=== PATIENT | male | born 1935 | race Caucasian/White ===

== ENCOUNTER → 2018-02-10 06:31 | Outpatient (CLI) | payer MEDICARE, SELFPAY ==
--- NOTE | 2018-02-10 16:31 | STRESSREP ---
Stress Test Report Pharmacologic myocardial perfusion stress test. 82-year-old man with a history of coronary artery disease status post carotid bypass surgery for preoperative cardiac evaluation. Medications Zestril Betapace Coumadin metformin Aldactone. Stress protocol: Resting EKG demonstrates normal sinus rhythm with a rate of 68 bpm right bundle branch block is noted. 0.4 mg regadenoson was infused per usual protocol followed by rapid intravenous saline flush injection. Continuous EKG monitoring was performed. At rest there were no ST or T-wave changes noted suggest abnormal flow reserve at peak infusion no ST or T-wave changes were noted suggest abnormal flow reserve. The patient maintained a right bundle branch block throughout the recording. The resting blood pressure is 138/60 with a final blood pressure 128/60. Myocardial perfusion protocol. 14.9 mCi of technetium 99m sestamibi was injected at rest. 0.4 mg regadenoson was infused per usual protocol. Peak infusion 44.8 mCi of technetium 99m sestamibi was injected. Stress images were obtained stress and rest images were reconstructed and compared in the short axis vertical long horizontal long axis. Gated images were also obtained. Perfusion SPECT analysis: Review of the stress images demonstrate normal normal cardiac silhouette size. The septum anterior wall and lateral wall appear to be well perfused. There is a medium-sized defect noted in the base to mid inferior wall. This is present on the stress images. The resting images demonstrate improvement with partial reversibility involving the base to mid inferior wall. The above is suggestive of a moderate amount of mid inferior ischemia. Gated SPECT analysis The gated ejection fraction is 63%. Conclusion: Abnormal pharmacologic myocardial perfusion stress test with evidence of moderate mid inferior ischemia present. Preserved ejection fraction.
== END ==
PROVIDERS: Family Provider Internal Medicine; PCP Internal Medicine; Visit Provider Internal Medicine Cardiovascular Disease
DX: Z01.810 Encounter for preprocedural cardiovascular examination (principal); I25.10 Atherosclerotic heart disease of native coronary artery without angina pectoris
CPT/HCPCS: 78452; 93017; A9500; A4216; J2785

== ENCOUNTER 2018-04-14 05:35 | Inpatient (IN) | payer MEDICARE, SELFPAY ==
[2018-04-01 09:29] VITALS: BP 121/52; PULSE 63; RESP 17; TEMP 36.4; BMI 44.1
--- NOTE | 2018-04-01 09:55 | SDCEKG_ITS ---
Test Reason : Blood Pressure : / mmHG Vent. Rate : 062 BPM Atrial Rate : 062 BPM P-R Int : 268 ms QRS Dur : 152 ms QT Int : 486 ms P-R-T Axes : 063 087 043 degrees QTc Int : 493 ms Sinus rhythm with 1st degree A-V block Right bundle branch block Abnormal ECG Confirmed by DIONNE ESCOBEDO, TRACI ([id number]), news assignment editor ELENA ZHANG ([id number]) on 04/03/2018 1:48:25 PM Referred By: Kel Contreras Confirmed By:TRACI TRUONG MD
--- NOTE | 2018-04-01 11:05 | RAD_ITS ---
STUDY: X-RAY CHEST REASON FOR EXAM: Male, 82 years old. Preoperative evaluation. TECHNIQUE: PA and lateral views of the chest. COMPARISON: Comparison is made with prior study dated August 20, 2016. FINDINGS: Elevation of the right hemidiaphragm. Stable mild increased markings at the lung bases suggestive of scarring. This is unchanged. There is no demonstrated pleural abnormality. Sternal cerclage wires and vascular clips are present from a prior sternotomy and coronary artery bypass graft procedure (CABG). Normal mediastinum and tapan. Normal visualized pulmonary arteries. There is atherosclerotic tortuosity of the aortic arch and descending thoracic aorta. There are diffuse degenerative changes of the visualized thoracic spine. Normal visualized ribs, clavicles, and shoulders. There is no demonstrated abnormality of the visualized soft tissue structures of the upper abdomen. RAD/Chest PA and Lateral IMPRESSION: Stable mild increased markings at the lung bases suggestive of scarring. Electronically Signed: John Sanchez MD at 11:30 EDT Tel [phone], Service support ,
[2018-04-01 11:07] LABS: Hematocrit 38.5 % (40-54); Hemoglobin 11.9 g/dl (13.0-16.5); Mean Corp Hgb Conc 30.9 g/gl (32-36); Mean Corpuscular Hgb 27.8 pg (27.0-32.0); Mean Platelet Vol. 11.4 fl (6.2-12.0); Platelet Count 145 K/mm3 (150-450); RBC Distribution Width CV 12.7 % (11.6-14.6); RBC Distribution Width SD 41.2 fl (35.1-43.9); Red Blood Count 4.28 M/mm3 (4.6-6.2); Scan Indicated on CBC? Y/N NO; White Blood Count 6.2 K/mm3 (4.4-11.0)
[2018-04-01 11:23] LABS: Anion Gap 5 (5-15); BUN 33 mg/dL (7-18); BUN/Creat Ratio 16.8 RATIO (10-20); Calcium,Total 9.9 mg/dL (8.5-10.1); Chloride 107 mmol/L (98-107); Creatinine, Serum 1.97 mg/dL (0.70-1.30); EST Glomerular Filtration Rate 35 mL/min (>60); Est Glom Filt Rate - Afr Amer 42 mL/min (>60); Estimated Creatinine Clearance 33.24 ml/min; Glucose 179 mg/dL (74-106); Potassium 4.1 mmol/L (3.5-5.1); Sodium Level 143 mmol/L (136-145)
[2018-04-01 11:30] LABS: Hemoglobin A1c 7.3 % (4.2-6.3)
--- NOTE | 2018-04-08 12:34 | CASEMGMT ---
SW called pt on phone as pt is scheduled for right knee replacement surgery w/Dr. Contreras on 04/14/18. Pt lives home w/ in a one story home, 3-4 steps to get in. Pt is independent w/ADL's now, does use a tub chair and has a walker, though is not currently using the walker. Pt has a C-Pap at home also. Pt plans to go to [facility] discharge, pt states he went there after his last knee surgery. SW checked on [facility]'s website, and [facility] is in network w/[facility]. Pt is okay w/SW calling [facility] today to let them know that pt will want to come next week after his knee surgery. SW called [facility], spoke w/[place], let her know pt would like to come there next week after his knee replacement, which is scheduled for 04/14. Pt will need a precert from [facility] in order to be admitted. DWIGHT will follow up w/pt once here, postop, to confirm plan, make referral to [facility], and attain precert from [facility]. RUBÉN Kwon, STEAM CLEANER
[2018-04-14] VITALS (12 sets, daily range): BP systolic 104–160; BP diastolic 44–77; PULSE 53–65; RESP 12–18; TEMP 36.4–36.8; O2SAT 95–100; BMI 44.1
[2018-04-14] MEDS: oxyCODONE HCl Cr 10 MG Tablet PO (06:38)
[2018-04-14] MEDS: Acetaminophen 500 MG Tablet 1000 MG PO ×3 (06:38→22:26)
[2018-04-14] MEDS: Celecoxib 200 MG Capsule 400 MG PO (06:39)
[2018-04-14 06:56] LABS: Bedside Glucose 185 mg/dL (70-110)
[2018-04-14 10:21] LABS: Bedside Glucose 281 mg/dL (70-110)
[2018-04-14] MEDS: Insulin Lispro 100 UNIT/ML INSULN.PEN SC ×2 (10:57→22:28)
--- NOTE | 2018-04-14 11:00 | RAD_ITS ---
STUDY: X-RAY - RIGHT KNEE REASON FOR EXAM: Male, 82 years old. Total knee replacement. TECHNIQUE: AP and lateral view(s) of the knee. COMPARISON: None. FINDINGS: Normal visualized distal femur. Normal visualized proximal tibia and fibula. Normal proximal tibiofibular articulation. Status post total knee replacement. There is good alignment. Postoperative soft tissue changes. RAD/Knee 1 or 2 Views IMPRESSION: Total knee replacement. There is good alignment. Postoperative soft tissue changes. Electronically Signed: John Sanchez MD at 11:24 EDT Tel [phone], Service support ,
[2018-04-14] MEDS: Lactated Ringers 1,000 ML 125 ML IV ×2 (11:15→19:58)
[2018-04-14] MEDS: Lisinopril 10 MG Tablet PO (14:18)
[2018-04-14] MEDS: Famotidine 20 MG Tablet PO (14:19)
[2018-04-14] MEDS: Cefazolin 1 GM/50 ML BAG IV ×2 (16:11→22:35)
[2018-04-14] MEDS: Furosemide 20 MG Tablet PO (18:00)
--- NOTE | 2018-04-14 22:24 | NUR.TO.PHY ---
Unable to void. Bladder scan for 333. Straight cath for 600 @ this time. Pt tolerated well.
[2018-04-14] MEDS: Doxazosin 1 MG Tablet 2 MG PO (22:25)
[2018-04-14] MEDS: Celecoxib 200 MG Capsule PO (22:25)
[2018-04-14] MEDS: Atorvastatin Calcium 10 MG Tablet PO (22:25)
[2018-04-14] MEDS: Spironolactone 25 MG Tablet PO (22:25)
[2018-04-14] MEDS: Senna/Docusate Sodium 1 Tablet 2 TABLET PO (22:25)
[2018-04-14] MEDS: Sotalol Hydrochloride 80 MG Tablet PO (22:25)
[2018-04-14 23:30] LABS: Bedside Glucose 257 mg/dL (70-110)
[2018-04-15] VITALS (7 sets, daily range): BP systolic 85–116; BP diastolic 31–50; PULSE 58–70; RESP 16–18; TEMP 36.4–37; O2SAT 90–95
[2018-04-15] MEDS: oxyCODONE 5 MG Tablet PO ×2 (02:39→08:51)
[2018-04-15] MEDS: Acetaminophen 500 MG Tablet 1000 MG PO ×3 (06:02→21:40)
[2018-04-15 06:03] LABS: Hematocrit 31.6 % (40-54); Hemoglobin 9.7 g/dl (13.0-16.5); Mean Corp Hgb Conc 30.7 g/gl (32-36); Mean Corpuscular Hgb 28.4 pg (27.0-32.0); Mean Corpuscular Volume 92.4 fL (80-94); Mean Platelet Vol. 11.5 fl (6.2-12.0); Platelet Count 121 K/mm3 (150-450); RBC Distribution Width CV 12.6 % (11.6-14.6); Red Blood Count 3.42 M/mm3 (4.6-6.2); White Blood Count 8.6 K/mm3 (4.4-11.0)
[2018-04-15 06:11] LABS: Scan Indicated on CBC? Y/N NO
[2018-04-15 06:27] LABS: Anion Gap 10 (5-15); BUN 44 mg/dL (7-18); BUN/Creat Ratio 16.4 RATIO (10-20); Calcium,Total 8.5 mg/dL (8.5-10.1); Chloride 105 mmol/L (98-107); Creatinine, Serum 2.69 mg/dL (0.70-1.30); EST Glomerular Filtration Rate 24 mL/min (>60); Est Glom Filt Rate - Afr Amer 29 mL/min (>60); Estimated Creatinine Clearance 24.34 ml/min; Glucose 209 mg/dL (74-106); Potassium 5.4 mmol/L (3.5-5.1); Sodium Level 138 mmol/L (136-145)
--- NOTE | 2018-04-15 06:27 | NURSING ---
Straight cath @ this time for 100ml. Has been appx 8hrs since previous void. Pt has attempted to void x2 without success since previous straight cath.
--- NOTE | 2018-04-15 06:28 | NURSING ---
BRIAN wrap removed and ABDs. Mepilex applied with BRITTNEY. While in BR began bleeding from distal end of wound. BRIAN wrap replaced over mepilex. Elevated. Will monitor.
[2018-04-15] MEDS: Insulin Lispro 100 UNIT/ML INSULN.PEN SC ×4 (06:51→21:40)
[2018-04-15 07:00] LABS: Bedside Glucose 205 mg/dL (70-110)
[2018-04-15] MEDS: Lactated Ringers 1,000 ML 125 ML IV ×3 (07:00→21:41)
[2018-04-15] MEDS: Senna/Docusate Sodium 1 Tablet 2 TABLET PO ×2 (07:52→21:41)
[2018-04-15] MEDS: Celecoxib 200 MG Capsule PO ×2 (07:52→21:40)
[2018-04-15] MEDS: glipiZIDE 10 MG Tablet PO (07:52)
[2018-04-15] MEDS: Famotidine 20 MG Tablet PO (07:52)
[2018-04-15] MEDS: Multivitamins,Therapeutic Tablet 1 TABLET PO (07:52)
[2018-04-15] MEDS: DiphenhydrAMINE 25 MG Capsule PO (07:58)
--- NOTE | 2018-04-15 08:00 | PN.ORTHO_ITS ---
Subjective: Patient is resting comfortably in chair at bedside during exam. He complains of some pain in the right knee. He has had to have his dressing changed several times. They have been using sandbags for compression. He does not seem to be actively bleeding from the surgical site at this time. He has not been able to void on his own. He has had to be straight cath 2 times. He admits that he has had issues with his prostate in the past. He additionally complains of some abdominal itching. Currently denies chest pain, shortness of breath, dizziness, calf pain. His plan is for discharge to [facility] after leaving the hospital. Objective: Patient is alert and oriented ?3. No acute distress at rest. Breathing easily without respiratory distress. Inspection of dressing with clean dry Jose Angel wraps. Negative Nara bilaterally. Without signs of DVT. Patient able to actively plantar and dorsiflex bilateral feet against resistance. Pedal pulses present and equal bilaterally. Patient is neurovascularly intact. - Physical Exam Vital Signs Temp Pulse Resp BP Pulse Ox 97.8 F 58 L 18 116/45 L 95 04/15/18 02:48 04/15/18 02:48 04/15/18 02:48 04/15/18 02:48 04/15/18 02:48 Oxygen Flow Rate (L/min) 2 Oxygen Delivery Method CPAP Weight: 152 kg Body Mass Index (BMI) 44.1 Finger Stick Blood Glucose 281 Intake and Output for Last 24 Hours 04/13/18 04/14/18 04/15/18 23:59 23:59 23:59 Intake Total 2100 / 2100 2360 / 2360 Output Total 600 / 600 100 / 100 Balance 1500 / 1500 2260 / 2260 Laboratory Tests Past 24 Hrs 04/14/18 04/14/18 04/15/18 10:25 14:35 05:45 WBC 8.6 RBC 3.42 L Hgb 9.7 L Hct 31.6 L MCV 92.4 MCH 28.4 MCHC 30.7 L RDW 12.6 RDW Differential 41.0 Plt Count 121 L MPV 11.5 Sodium Potassium Chloride Carbon Dioxide Anion Gap BUN Creatinine Estim Creat Clear Calc Est GFR (MDRD) Af Amer Est GFR (MDRD) Non-Af BUN/Creatinine Ratio Glucose Calcium Troponin I < 0.015 < 0.015 04/15/18 05:45 WBC RBC Hgb Hct MCV MCH MCHC RDW RDW Differential Plt Count MPV Sodium 138 Potassium 5.4 H Chloride 105 Carbon Dioxide 23.0 Anion Gap 10 BUN 44 H Creatinine 2.69 H Estim Creat Clear Calc 24.34 Est GFR (MDRD) Af Amer 29 L Est GFR (MDRD) Non-Af 24 L BUN/Creatinine Ratio 16.4 Glucose 209 H Calcium 8.5 Troponin I POC Glucose 04/15/18 04/14/18 04/14/18 06:50 22:27 10:14 POC Glucose 205 H 257 H 281 H Medical Necessity - Tobacco Use Smoking Status: Former smoker Tobacco Use: Cigarettes Assessment/Plan 1. Status post right TKA; postop day #1 2. Continue OxyIR and Tylenol for pain control 3. DVT prophylaxis; bilateral teds, SCDs and resume preoperative dosing of Coumadin 4. Begin PT/OT; weightbearing as tolerated with a walker. 5. Drop in hemoglobin/hematocrit; asymptomatic, without indication for transfusion 6. Encourage incentive spirometry 7. Urinary retention with low urinary output. Continue IV fluids attempt another voiding trial before inserting indwelling Soler catheter. If patient requires a Soler catheter we will plan to consult urology. 8. Hyperkalemia; repeat BMP in a.m. 9. Abdominal pruritus add Benadryl 25 mg p.o. every 4-6 hours as needed 10. Continue to monitor surgical site. Keep compression. Sandbag if needed. If patient starts to actively bleed please contact me. 11. Continue discharge planning with case management
--- NOTE | 2018-04-15 08:48 | CASEMGMT ---
Addendum entered by Kayla Gupta 04/15/18 10:09: Transfer to extended care facility sheet was placed on chart yesterday. Original Note: Addendum entered by Kayla Gupta 04/15/18 10:00: Pt has [facility]. This SW faxed referral to Sania at [facility]. SW will continue to follow along to assist with discharge planning. Original Note: Social Work Note Pt is interested in placement at [facility] at discharge for rehabilitation. SW faxed referral to Geneva at [facility] and informed her to submit for pre-cert. SW will continue to follow along to assist with discharge planning. Plan: [facility] pending pre-cert Kayla Gupta DIESEL SERVICE APPRENTICE, GLASS LAMINATING OPERATOR
--- NOTE | 2018-04-15 09:46 | SLEEP ---
Seen patient and education was given on the importance of screening/testing for sleep disorder breathing. Patient verbalized understanding, patient was not feeling well and did not have any questions. I left pt with a brochure of information.
--- NOTE | 2018-04-15 11:03 | NURSING ---
NIKKIE HERNANDEZ NOTIFIED OF PTS BP 99/41. PT ONLY COMPLAINT IS BEING TIRED. LASIX & ZESTRIL DUE @ THIS TIME. ORDER TO HOLD THESE MEDS, CONT IVFS & MONITOR BP.
[2018-04-15 11:05] LABS: Bedside Glucose 195 mg/dL (70-110)
--- NOTE | 2018-04-15 15:03 | NURSING ---
16 Fr torres catheter was inserted and Pt. tolerated well. Clear, yellow urine was present. Catheter tubing was secured to pt's left thigh and pt. denies any pain from procedure.
[2018-04-15 16:25] LABS: Bedside Glucose 229 mg/dL (70-110)
[2018-04-15] MEDS: Furosemide 20 MG Tablet PO (17:06)
[2018-04-15] MEDS: Sotalol Hydrochloride 80 MG Tablet PO (21:40)
[2018-04-15] MEDS: Doxazosin 1 MG Tablet 2 MG PO (21:41)
[2018-04-15] MEDS: Atorvastatin Calcium 10 MG Tablet PO (21:41)
[2018-04-15] MEDS: Spironolactone 25 MG Tablet PO (21:41)
[2018-04-15 22:20] LABS: Bedside Glucose 261 mg/dL (70-110)
[2018-04-16 03:30] VITALS: BP 105/33; PULSE 65; RESP 18; TEMP 37.4; O2SAT 93
[2018-04-16 06:07] LABS: Hematocrit 27.4 % (40-54); Hemoglobin 8.7 g/dl (13.0-16.5); Mean Corp Hgb Conc 31.8 g/gl (32-36); Mean Corpuscular Hgb 28.9 pg (27.0-32.0); Mean Platelet Vol. 12.1 fl (6.2-12.0); Platelet Count 89 K/mm3 (150-450); RBC Distribution Width CV 12.6 % (11.6-14.6); RBC Distribution Width SD 40.4 fl (35.1-43.9); Red Blood Count 3.01 M/mm3 (4.6-6.2); White Blood Count 5.7 K/mm3 (4.4-11.0)
[2018-04-16 06:34] LABS: Scan Indicated on CBC? Y/N NO
[2018-04-16 06:35] LABS: Anion Gap 9 (5-15); BUN 56 mg/dL (7-18); BUN/Creat Ratio 19.4 RATIO (10-20); Calcium,Total 8.6 mg/dL (8.5-10.1); Chloride 106 mmol/L (98-107); Creatinine, Serum 2.89 mg/dL (0.70-1.30); EST Glomerular Filtration Rate 22 mL/min (>60); Est Glom Filt Rate - Afr Amer 27 mL/min (>60); Estimated Creatinine Clearance 22.66 ml/min; Glucose 209 mg/dL (74-106); Potassium 4.8 mmol/L (3.5-5.1); Sodium Level 138 mmol/L (136-145)
[2018-04-16] MEDS: Acetaminophen 500 MG Tablet 1000 MG PO ×3 (06:35→21:47)
[2018-04-16] MEDS: Insulin Lispro 100 UNIT/ML INSULN.PEN SC ×4 (06:35→21:48)
[2018-04-16 06:40] LABS: Bedside Glucose 238 mg/dL (70-110)
--- NOTE | 2018-04-16 07:36 | PCM.CONS.U ---
Reason for Consult Date of Consultation: 04/16/18 Reason for Consultation: Postop urinary retention History of Present Illness: The patient is a 82 year old male with a history of osteoarthritis underwent a right total knee replacement postoperatively he has not been able to urinate has a catheter in place he does take a low-dose doxazosin 4 BPH. Denies having difficulty with urination in the past. He is up in a tall chair having breakfast this morning looks fairly comfortable. Not able to examine the prostate this morning. Past Medical History Past Medical History (Chronic Problems): Chronic Problems Diabetes (Chronic) Afib (Chronic) Allergies finasteride [From Proscar] Allergy (Verified 04/01/18 09:15) Hives Home Medications: Ambulatory Orders Medication Instructions Recorded Doxazosin Mesylate 2 mg PO QHS 07/02/16 Liraglutide [Victoza 2-Horace] 1.2 mg SQ DAILY 07/02/16 Lisinopril [Zestril] 10 mg PO DAILY 07/02/16 Lovastatin [Mevacor] 40 mg PO QHS 07/02/16 Multivitamins,Therapeutic 1 tablet PO DAILY 07/02/16 [Multivitamin] glipiZIDE [Glucotrol] 10 mg PO DAILY@0730 07/02/16 Furosemide [Lasix] 20 mg PO BID 04/01/18 Insulin Glargine [Lantus (BKC)] 15 units SC QHS 04/01/18 Nitroglycerin [Nitrostat] 0.4 mg SL PRN PRN 04/01/18 Sotalol Hydrochloride [Betapace 80 mg PO QHS 04/01/18 (Beta Duong)] Spironolactone [Aldactone] 25 mg PO QHS 04/01/18 Warfarin [Coumadin] 10 mg PO DAILY 04/01/18 Surgical History: total knee arthroplasty, - - cabg,hernia Psychiatric History: No pertinent psych hx Lives: With Family Smoking Status: Former smoker Tobacco Use: Cigarettes Alcohol: None Drugs: None - *Family History Paternal History Items: - - reports father would get bronchitis. Review of Systems Genitourinary: Reports: Retention Physical Exam - Physical Exam Vital Signs Temp 99.3 F H 04/16/18 03:30 Pulse 65 04/16/18 03:30 Resp 18 04/16/18 03:30 BP 105/33 L 04/16/18 03:30 Pulse Ox 93 04/16/18 03:30 Intake & Output 04/14/18 04/15/18 04/16/18 23:59 23:59 23:59 Intake Total 2099 3710 / 3710 2571 / 2571 Output Total 600 / 600 275 / 275 950 / 950 Balance 1500 / 1500 3435 / 3435 1621 / 1621 Weight: 152 kg 152 kg Intake: Oral 1000 / 1000 400 / 400 IV fluid/meds 2099 2710 / 2710 2171 / 2171 IV #3 2099 Output: Urine 600 / 600 275 / 275 950 / 950 General: Alert, Oriented x3 HEENT: Atraumatic Oral: Moist Mucosa Neck: Supple Lungs: Normal air movement Cardiovascular: Regular rate Abdomen: Soft Laboratory Tests Past 24 Hrs 04/16/18 04/16/18 05:35 05:35 WBC 5.7 RBC 3.01 L Hgb 8.7 L Hct 27.4 L MCV 91.0 MCH 28.9 MCHC 31.8 L RDW 12.6 RDW Differential 40.4 Plt Count 89 L MPV 12.1 H Sodium 138 Potassium 4.8 Chloride 106 Carbon Dioxide 23.0 Anion Gap 9 BUN 56 H Creatinine 2.89 H Estim Creat Clear Calc 22.66 Est GFR (MDRD) Af Amer 27 L Est GFR (MDRD) Non-Af 22 L BUN/Creatinine Ratio 19.4 Glucose 209 H Calcium 8.6 Assessment/Plan All Active Problems Bronchitis (Acute) CHF (congestive heart failure) (Acute) CHF (congestive heart failure) (Acute) CAD (coronary artery disease) (Acute) Recommend we try Flomax 0.4 mg twice daily as long as he tolerates the dose and does not cause dizziness and take out the catheter tomorrow for a voiding trial put the orders in.
--- NOTE | 2018-04-16 07:39 | PCM.PN.ORT ---
Subjective: Patient sitting at bedside. Patient states pain is well-managed. Patient denies chest pain, shortness breath, calf pain, or nausea vomiting. Patient states is very uncomfortable as he has had a urinary catheter placed yesterday. Patient states he was having a very difficult time voiding postoperatively. It was very uncomfortable, prior to having the urinary catheter placed. Patient denies any other complaints at this time Objective: Dressing is dry and intact. Patient sitting at bedside with no obvious respiratory distress. Patient has been hypotensive postoperatively. However asymptomatic. Patient's labs within normal limits. Patient is afebrile neurovascular intact. Negative signs and symptoms of DVT. Patient denies any abdominal pain, states she is very uncomfortable with urinary catheter in place. - Physical Exam General: Alert, Oriented x3, Cooperative HEENT: PERRLA Oral: Moist Mucosa Neurological: Cranial nerves II-XII grossly intact Psych/Mental Status: Normal Affect, Alert and oriented to time, place, person, mood and affect Vital Signs Temp Pulse Resp BP Pulse Ox 99.3 F H 65 18 105/33 L 93 04/16/18 03:30 04/16/18 03:30 04/16/18 03:30 04/16/18 03:30 04/16/18 03:30 Oxygen Flow Rate (L/min) 2 Oxygen Delivery Method Room Air Weight: 152 kg Body Mass Index (BMI) 44.1 Finger Stick Blood Glucose 281 Intake and Output for Last 24 Hours 04/14/18 04/15/18 04/16/18 23:59 23:59 23:59 Intake Total 2100 / 2100 3710 / 3710 2571 / 2571 Output Total 600 / 600 275 / 275 950 / 950 Balance 1500 / 1500 3435 / 3435 1621 / 1621 Laboratory Tests Past 24 Hrs 04/16/18 04/16/18 05:35 05:35 WBC 5.7 RBC 3.01 L Hgb 8.7 L Hct 27.4 L MCV 91.0 MCH 28.9 MCHC 31.8 L RDW 12.6 RDW Differential 40.4 Plt Count 89 L MPV 12.1 H Sodium 138 Potassium 4.8 Chloride 106 Carbon Dioxide 23.0 Anion Gap 9 BUN 56 H Creatinine 2.89 H Estim Creat Clear Calc 22.66 Est GFR (MDRD) Af Amer 27 L Est GFR (MDRD) Non-Af 22 L BUN/Creatinine Ratio 19.4 Glucose 209 H Calcium 8.6 POC Glucose 04/16/18 04/15/18 04/15/18 06:34 21:38 16:20 POC Glucose 238 H 261 H 229 H 04/15/18 11:01 POC Glucose 195 H Medical Necessity - Tobacco Use Smoking Status: Former smoker Tobacco Use: Cigarettes Assessment/Plan All Active Problems Bronchitis (Acute) CHF (congestive heart failure) (Acute) CHF (congestive heart failure) (Acute) CAD (coronary artery disease) (Acute) Status post total knee replacement Postop urinary retention, with indwelling urinary catheter Plan 1. Continue all pain medications as prescribed 2. Continue physical therapy today, weight-bear as tolerated with walker 3. Continue Coumadin as prescribed for postop DVT prophylaxis 4. Encourage incentive spirometry 5. Consult urology for urinary retention, indwelling urinary catheter 6. Possible discharge to [facility] tomorrow
[2018-04-16] MEDS: Lisinopril 10 MG Tablet PO (07:59)
[2018-04-16] MEDS: Senna/Docusate Sodium 1 Tablet 2 TABLET PO ×2 (08:00→21:48)
[2018-04-16] MEDS: Furosemide 20 MG Tablet PO ×2 (08:00→16:23)
[2018-04-16] MEDS: glipiZIDE 10 MG Tablet PO (08:00)
[2018-04-16] MEDS: Famotidine 20 MG Tablet PO (08:00)
[2018-04-16] MEDS: Multivitamins,Therapeutic Tablet 1 TABLET PO (08:00)
[2018-04-16] MEDS: Celecoxib 200 MG Capsule PO ×2 (08:01→21:47)
[2018-04-16] MEDS: Tamsulosin HCl 0.4 MG Capsule PO ×2 (08:03→21:47)
[2018-04-16 08:06] VITALS: BP 116/52; PULSE 62; RESP 18; TEMP 36.7; O2SAT 98
--- NOTE | 2018-04-16 10:10 | CASEMGMT ---
Social Work Note SW received call from Tatum DE LA VEGA at [facility] requesting this worker to call her back. DWIGHT placed a call to Tatum DE LA VEGA at [facility]. Per Tatum she has reviewed clinicals and has approved for pt to go to [facility] at discharge for rehabilitation. DWIGHT informed Tatum that pt will possibly be discharging tomorrow. Tatum states understanding. DWIGHT placed a call to [place] at [facility] and left her message informing her that pt's insurance has approved for pt to go to [facility] at discharge and that pt is a possibly discharge for tomorrow. DWIGHT will continue to follow along to assist with discharge planning. Plan: Discharge to [facility] tomorrow for rehabilitation Kayla Gupta OPTIMIZATION ENGINEER, DAY CAMP COUNSELOR
--- NOTE | 2018-04-16 10:37 | CASEMGMT ---
Addendum entered by Kayla Gupta 04/16/18 10:40: SW received a call from [facility] and he state that he will keep pt tonight and will discharge pt tomorrow. Original Note: Social Work Note SW placed a call to [facility] and left a message to update him that pre-cert has been obtained and that pt is able to be discharged today or tomorrow pending being medically cleared. SW will continue to assist with discharge planning. Plan: Discharge to [facility] when medically cleared Kayla Gupta COLLEGE PHYSICS INSTRUCTOR, WATER TREATMENT SPECIALIST
[2018-04-16 12:05] LABS: Bedside Glucose 250 mg/dL (70-110)
[2018-04-16 13:19] VITALS: BP 96/48; PULSE 66; RESP 18; TEMP 36.4; O2SAT 97
[2018-04-16 16:30] LABS: Bedside Glucose 287 mg/dL (70-110)
[2018-04-16 19:36] VITALS: BP 131/54; PULSE 74; RESP 20; TEMP 37.1; O2SAT 94
[2018-04-16] MEDS: Spironolactone 25 MG Tablet PO (21:47)
[2018-04-16] MEDS: Atorvastatin Calcium 10 MG Tablet PO (21:47)
[2018-04-16] MEDS: Sotalol Hydrochloride 80 MG Tablet PO (21:47)
[2018-04-16 22:06] LABS: Bedside Glucose 273 mg/dL (70-110)
[2018-04-17 01:36] VITALS: BP 123/54; PULSE 63; RESP 18; TEMP 37.1; O2SAT 96
[2018-04-17 06:27] VITALS: BP 135/45; PULSE 61; RESP 18; TEMP 36.4; O2SAT 97
[2018-04-17] MEDS: Acetaminophen 500 MG Tablet 1000 MG PO (06:32)
[2018-04-17] MEDS: Insulin Lispro 100 UNIT/ML INSULN.PEN SC ×2 (06:33→11:18)
[2018-04-17 06:40] LABS: Bedside Glucose 211 mg/dL (70-110)
--- NOTE | 2018-04-17 07:23 | PCM.PN.ORT ---
Subjective: Patient is resting in chair at bedside during exam. No adverse events overnight. He is surprised that he has not had much pain in the right knee. It has been very well controlled. Physical therapy has been going very well. He currently denies chest pain, shortness of breath, dizziness, calf pain. He was seen by urology yesterday. Flomax was started. His Soler catheter was discontinued this morning. He has been able to void on his own multiple times. Objective: Patient is alert and oriented ?3. No acute distress at rest. Breathing easily without respiratory distress. Inspection of right knee reveals a dressing with a couple areas of dried bloody drainage that are not getting larger. Negative Nara bilaterally. Without signs of DVT. Sensation intact to light touch bilateral lower extremities. Pedal pulses present and equal bilaterally. Patient able to actively plantar and dorsiflex bilateral feet against resistance. Neurovascularly intact. - Physical Exam Vital Signs Temp Pulse Resp BP Pulse Ox 97.6 F L 61 18 135/45 H 97 04/17/18 06:27 04/17/18 06:27 04/17/18 06:27 04/17/18 06:27 04/17/18 06:27 Oxygen Flow Rate (L/min) 2 Oxygen Delivery Method Room Air Weight: 152 kg Body Mass Index (BMI) 44.1 Finger Stick Blood Glucose 281 Intake and Output for Last 24 Hours 04/15/18 04/16/18 04/17/18 23:59 23:59 23:59 Intake Total 3710 / 3710 3521 / 3521 500 / 500 Output Total 275 / 275 1400 / 1400 1100 / 1100 Balance 3435 / 3435 2121 / 2121 -600 / -600 Laboratory Tests Past 24 Hrs 04/17/18 07:10 WBC Pending RBC Pending Hgb Pending Hct Pending MCV Pending MCH Pending MCHC Pending RDW Pending RDW Differential Pending Plt Count Pending POC Glucose 04/17/18 04/16/18 04/16/18 06:30 21:39 16:21 POC Glucose 211 H 273 H 287 H 04/16/18 11:45 POC Glucose 250 H Medical Necessity - Tobacco Use Smoking Status: Former smoker Tobacco Use: Cigarettes Assessment/Plan All Active Problems Bronchitis (Acute) CHF (congestive heart failure) (Acute) CHF (congestive heart failure) (Acute) CAD (coronary artery disease) (Acute) 1. Status post right TKA; postop day #3 2. Continue OxyIR and Tylenol for pain control 3. DVT prophylaxis; bilateral teds, SCDs and continue preoperative dosing of Coumadin. Check PT/INR tomorrow 4. Continue PT/OT; weightbearing as tolerated with a walker. 5. Drop in hemoglobin/hematocrit; asymptomatic, without indication for transfusion. CBC 618 results still pending. Will review upon posting. 6. Encourage incentive spirometry 7. Urinary retention, continue management per urology. Patient has been able to void with the addition of Flomax. Per Dr. Wong we will continue Flomax daily and he will see the patient within a month postoperative 8. Hyperkalemia; resolved. 9. Abdominal pruritus resolved 10. Orthopedically stable and okay for discharge to [facility] today and will follow up in 2 weeks in the office for reassessment right knee.
[2018-04-17 07:38] LABS: Hematocrit 29.9 % (40-54); Hemoglobin 9.5 g/dl (13.0-16.5); Mean Corp Hgb Conc 31.8 g/gl (32-36); Mean Corpuscular Hgb 28.3 pg (27.0-32.0); Mean Platelet Vol. 11.8 fl (6.2-12.0); Platelet Count 111 K/mm3 (150-450); RBC Distribution Width CV 13.2 % (11.6-14.6); RBC Distribution Width SD 42.6 fl (35.1-43.9); Red Blood Count 3.36 M/mm3 (4.6-6.2); White Blood Count 5.7 K/mm3 (4.4-11.0)
--- NOTE | 2018-04-17 07:38 | DS.PCM_ITS ---
Discharge Summary Date of Admission: 05/15/18 Date of Discharge: 04/17/18 Summary: Admitting diagnosis: Osteoarthritis History of pulmonary embolism Diabetes Hypercholesterolemia Hypertension Atrial fibrillation Discharge diagnoses: Post right TKA Osteoarthritis History of pulmonary embolism Diabetes Hypercholesterolemia Hypertension Atrial fibrillation Discharge medications: OxyIR 5 mg 1-2 p.o. every 6 hours as needed pain Acetaminophen 500 mg 2 p.o. 3 times daily Flomax 0.4 mg 1 p.o. daily Patient had ongoing history of right knee pain. After failing conservative measures he opted to proceed with a right total knee replacement. He underwent above-stated procedure on 04-14-18. He did receive perioperative antibiotics. Intraoperative was uneventful. Please see dictated operative report. He was stable in recovery and admitted to the third floor it [facility]. He participated with physical therapy. Did very well. Pain was well managed with the use of IV and p.o. pain medications. His preoperative dose of Coumadin was resumed postoperative day #1. His postoperative course was complicated by urinary retention. Urology was consulted. Ultimately urinary retention resolved with the addition of Flomax. He will be discharged with this medication and follow-up with Dr. Wong you know within a month postoperative. He was [facility]. He will participate with physical therapy. He will follow-up with [facility] 2 weeks postoperative.
[2018-04-17 07:45] LABS: Scan Indicated on CBC? Y/N NO
[2018-04-17] MEDS: glipiZIDE 10 MG Tablet PO (08:08)
[2018-04-17] MEDS: Multivitamins,Therapeutic Tablet 1 TABLET PO (08:08)
--- NOTE | 2018-04-17 10:24 | CASEMGMT ---
Social Work Note Pt is to discharge today to [facility]. DWIGHT faxed discharge paperwork including transfer to extended care facility, signed medication list and signed scripts to Geneva at [facility]. Originals in SNF folder and copies on chart. SW completed convalescent 7000 in [facility]. Original in SNF folder and copy on pt's chart. SW in to update pt that he will be discharged today to [facility]. SW asked pt if he wants this worker to set up transportation or if he has family or friends to transport him. Pt states that he would like this worker to set up transportation and that he would prefer to go via wheelchair van. SW explained to pt that they may be a fee for pt for transportation. Pt states understanding. SW called [facility] and per Prudence they don't have any available wheelchair vans and if pt goes via cot it will be private pt. DWIGHT placed a call to [facility] and they are able to transport pt via wheelchair van at 12:00pm. DWIGHT informed [facility] that pt is over 300 pounds and will need a bigger wheelchair. [facility] states that they are able to accommodate pt. Transportation form on SNF folder and copy in pt's chart. SW in to update pt of transportation time. This worker asked pt if he would like this worker to call any family or friends to let them know that pt will be discharged today and pt denied stating that he will call. Pt denied additional needs or concerns at this time. DWIGHT updated Charge Nurse Guerrero and RN Aby of transportation time. DWIGHT placed a call to Geneva at [facility] and updated her on transportation time as well. Plan: Discharge to [facility] today for rehabilitation Kayla Gupta UPPER INSPECTOR, OPERATING THEATRE TECHNICIAN
[2018-04-17 10:48] VITALS: BP 122/54; PULSE 63; RESP 18; TEMP 37.2; O2SAT 97
[2018-04-17] MEDS: Famotidine 20 MG Tablet PO (10:51)
[2018-04-17] MEDS: Senna/Docusate Sodium 1 Tablet 2 TABLET PO (10:51)
[2018-04-17] MEDS: Tamsulosin HCl 0.4 MG Capsule PO (10:51)
[2018-04-17] MEDS: Celecoxib 200 MG Capsule PO (10:51)
[2018-04-17] MEDS: Furosemide 20 MG Tablet PO (10:51)
[2018-04-17] MEDS: Lisinopril 10 MG Tablet PO (10:52)
--- NOTE | 2018-04-17 11:46 | NURSING ---
report called [facility]
[2018-04-17 13:15] LABS: Bedside Glucose 248 mg/dL (70-110)
== END 2018-04-17 12:05 | disposition skilled nursing facility (03) | DRG 470 ==
LOC: MS3 05:36
PROVIDERS: Anesthesiology; Physician Assistant; Admitting Provider Orthopaedic Surgery; Family Provider Internal Medicine; PCP Internal Medicine; Visit Provider Orthopaedic Surgery
PROC: 0SRC0J9 Replacement of Right Knee Joint with Synthetic Substitute, Cemented, Open Approach (ICD-10-PCS; CPT 27447; principal; 2018-04-14 06:55)
DX: M17.11 Unilateral primary osteoarthritis, right knee (principal); Z68.41 Body mass index [BMI] 40.0-44.9, adult; Z96.652 Presence of left artificial knee joint; E66.01 Morbid (severe) obesity due to excess calories; Z87.891 Personal history of nicotine dependence; I10 Essential (primary) hypertension; I48.91 Unspecified atrial fibrillation; Z79.01 Long term (current) use of anticoagulants; E78.00 Pure hypercholesterolemia, unspecified; E11.9 Type 2 diabetes mellitus without complications; Z79.4 Long term (current) use of insulin; L29.9 Pruritus, unspecified; Z86.711 Personal history of pulmonary embolism; R33.9 Retention of urine, unspecified
CPT/HCPCS: 36415; 36416; 71046; 73560; 80048; 82962; 83036; 84484; 85027; 85610; 87081; 93005; 97110; 97116; 97162; 97166; 97530; 97535; 97803; C1776; J7120; J2405

== ENCOUNTER → 2018-05-04 13:29 | Outpatient (CLI) | payer MEDICARE, SELFPAY ==
[2018-05-04 13:53] LABS: International Normalized Ratio 1.5; Prothrombin Time (Protime)PT. 18.4 SECONDS (11.7-14.9)
== END ==
PROVIDERS: Family Provider Internal Medicine; PCP Internal Medicine; Visit Provider Internal Medicine
DX: I48.91 Unspecified atrial fibrillation (principal)
CPT/HCPCS: 85610

== ENCOUNTER → 2018-07-15 10:48 | Outpatient (CLI) | payer MEDICARE, SELFPAY ==
[2018-07-15 11:12] LABS: International Normalized Ratio 2.1; Prothrombin Time (Protime)PT. 23.9 SECONDS (11.7-14.9)
== END ==
PROVIDERS: Visit Provider Internal Medicine
DX: I48.91 Unspecified atrial fibrillation (principal)
CPT/HCPCS: 85610

== ENCOUNTER → 2018-09-21 11:03 | Outpatient (CLI) | payer MEDICARE, SELFPAY ==
[2018-09-21 13:10] LABS: International Normalized Ratio 1.9; Prothrombin Time (Protime)PT. 21.9 SECONDS (11.7-14.9)
== END ==
PROVIDERS: Family Provider Internal Medicine; PCP Internal Medicine; Referring Provider Internal Medicine; Visit Provider Internal Medicine
DX: I48.91 Unspecified atrial fibrillation (principal)
CPT/HCPCS: 85610

== ENCOUNTER 2019-01-07 04:53 | Emergency (ER) | payer MEDICARE, SELFPAY ==
[2019-01-07 04:54] VITALS: BP 175/60; PULSE 82; RESP 30; TEMP 36.1; O2SAT 95; BMI 45.8
--- NOTE | 2019-01-07 05:13 | RAD_ITS ---
STUDY: X-RAY CHEST REASON FOR EXAM: Male, 83 years old. Cough TECHNIQUE: Single frontal view of the chest. COMPARISON: 04/01/2018 FINDINGS: Median sternotomy wires. Central vascular congestion and mild bibasilar alveolar disease and/or atelectasis. There is no demonstrated pleural abnormality. Stable cardiomediastinal silhouette. Normal mediastinum and tapan. Normal visualized pulmonary arteries. Normal visualized aortic arch and descending thoracic aorta. Normal visualized thoracic spine. Normal visualized ribs, clavicles, and shoulders. There is no demonstrated abnormality of the visualized soft tissue structures of the upper abdomen. RAD/Chest 1 View (Portable) IMPRESSION: Central vascular congestion and mild bibasilar alveolar disease and/or atelectasis. Electronically Signed: Juice Betancourt MD at 5:58 EST Tel , Service support ,
[2019-01-07 05:22] LABS: Absolute Lymphocyte Count 0.76 X10^3/ul (0.83-4.51); Absolute Neutrophil Count 3.8 X10^3/uL (2.0-7.7); Basophil# 0.03 X10^3/uL; Basophil% 0.5 % (0-1); Eosinophil# 0.31 X10^3/uL; Eosinophils% 5.5 % (0-5); Hematocrit 39.3 % (40-54); Lymphocyte # 0.76 X10^3/ul (4.0); Lymphocyte % 13.5 % (19-41); Mean Corp Hgb Conc 30.5 g/gl (32-36); Mean Corpuscular Hgb 27.5 pg (27.0-32.0); Mean Corpuscular Volume 90.1 fL (80-94); Mean Platelet Vol. 11.8 fl (6.2-12.0); Monocyte# 0.71 X10^3/uL; Monocyte% 12.6 % (0-10); Neutrophil # 3.84 X10^3/uL (2.7-7.7); Neutrophil % 67.9 % (47-70); Platelet Count 117 K/mm3 (150-450); RBC Distribution Width CV 12.6 % (11.6-14.6); RBC Distribution Width SD 40.9 fl (35.1-43.9); Red Blood Count 4.36 M/mm3 (4.6-6.2); White Blood Count 5.7 K/mm3 (4.4-11.0)
[2019-01-07 05:24] LABS: POSITIVE COUNT NO; POSITIVE DIFFERENTIAL NO; POSITIVE MORPHOLOGY NO
[2019-01-07 05:25] LABS: International Normalized Ratio 1.3; Prothrombin Time (Protime)PT. 16.5 SECONDS (11.7-14.9)
[2019-01-07] MEDS: Ipratropium/Albuterol Sulfate 3 ML AMPUL.NEB INHALATION (05:26)
[2019-01-07 05:27] VITALS: PULSE 78; RESP 20
[2019-01-07 05:49] LABS: Anion Gap 8 (5-15); BUN 45 mg/dL (7-18); BUN/Creat Ratio 20.8 RATIO (10-20); Calcium,Total 9.1 mg/dL (8.5-10.1); Chloride 110 mmol/L (98-107); Creatinine, Serum 2.16 mg/dL (0.70-1.30); EST Glomerular Filtration Rate 31 mL/min (>60); Est Glom Filt Rate - Afr Amer 38 mL/min (>60); Glucose 164 mg/dL (74-106); Potassium 5.5 mmol/L (3.5-5.1); Sodium Level 142 mmol/L (136-145)
[2019-01-07 06:38] VITALS: BP 174/57; PULSE 74; RESP 16; TEMP 36.8; O2SAT 97
--- NOTE | 2019-01-07 06:50 | ED.VISSUMM ---
- ER Visit Summary Date of Service: 01/07/19 Chief Complaint: Bronchitis History of Present Illness: The patient is a 83 M with what he believes is bronchitis. He reports a sore throat, cough, sputum, runny nose, and not sleeping well. Symptoms have gradually worsened over the past 5 days. He had similar symptoms in the past with bronchitis. He has a history of coronary disease and CHF as well as diabetes and atrial fibrillation. He takes warfarin. He denies any chest pain or exertional symptoms. He denies any increased swelling or abnormal weight gain. Physical Examination: Afebrile and vital signs unremarkable except for a blood pressure of 175/60. He is 95% on room air. Lungs show diminished sounds in all long. Heart is regular rate and rhythm. HEENT exam unremarkable. Extremities nontender with no edema. Skin normal in color without diaphoresis or pallor. Test Results: Hemoglobin stable at 12.0 and platelets stable at 117. Potassium hemolyzed, 5.5. No history of hyperkalemia. Glucose 164, BUN 45, creatinine 2.16, stable. INR is low at 1.3. Chest x-ray shows bibasilar alveolar disease versus atelectasis as well as chronic changes. Emergency Department Course and Treatment: Patient has infectious symptoms concerning for bronchitis or possibly pneumonia. Nothing to suggest ACS, CHF, PE, dissection, or other cardiovascular or pulmonary pathologies. He received a breathing treatment and workup was performed as above. On reevaluation, he was feeling better and resting comfortably. I reviewed his laboratory studies. He declined repeat potassium testing. I believe this is reasonable. His sample was hemolyzed. He has never had hyperkalemia before. For his worsening symptoms we will treat with azithromycin and albuterol. Patient was advised that his INR is low at this time, and antibiotics may raise that number. He will follow-up with his doctor later this week or early next week to have it rechecked. Return for any bleeding or other complications. Treatment Plan: As above Disposition: Discharge Impression: 1. Acute bronchitis 2. Subtherapeutic INR This note was generated with [employer] software. It may contain incorrect words, spelling, and punctuation that were not noted in review of the chart prior to signing ED Disposition - Plan for ED Patient: Instructions: Acute Bronchitis Prescriptions: Albuterol Inhaler [Ventolin Hfa] 2 puff INHALATION Q4H PRN PRN #1 inhaler PRN Reason: Wheezing Azithromycin [Zithromax Z-Horace] 250 mg PO UD #1 box Referrals: Nithin Acevedo MD [Primary Care Provider] -
--- NOTE | 2019-01-07 06:56 | ED.DEP ---
ED Disposition - Plan for ED Patient: Instructions: Acute Bronchitis Prescriptions: Albuterol Inhaler [Ventolin Hfa] 2 puff INHALATION Q4H PRN PRN #1 inhaler PRN Reason: Wheezing Azithromycin [Zithromax Z-Horace] 250 mg PO UD #1 box Referrals: Nithin Acevedo MD [Primary Care Provider] -
[2019-01-07 06:58] VITALS: BP 152/69; PULSE 74; RESP 18; O2SAT 95
== END 2019-01-07 07:01 | disposition home or self-care (01) ==
LOC: ED 05:22
PROVIDERS: Emergency Provider Emergency Medicine; Family Provider Internal Medicine; PCP Internal Medicine
DX: J20.9 Acute bronchitis, unspecified (principal); Z79.01 Long term (current) use of anticoagulants; I48.91 Unspecified atrial fibrillation; I25.10 Atherosclerotic heart disease of native coronary artery without angina pectoris; I50.9 Heart failure, unspecified; E11.9 Type 2 diabetes mellitus without complications; Z87.891 Personal history of nicotine dependence; Z79.51 Long term (current) use of inhaled steroids; Z79.4 Long term (current) use of insulin; Z79.891 Long term (current) use of opiate analgesic; Z79.899 Other long term (current) drug therapy
CPT/HCPCS: 71045; 80048; 85025; 85610; 94640; 99285; A4216

== ENCOUNTER → 2019-01-11 17:12 | Outpatient (CLI) | payer MEDICARE, SELFPAY ==
[2019-01-07 04:54] VITALS: BMI 45.8
[2019-01-11 17:53] LABS: International Normalized Ratio 1.5; Prothrombin Time (Protime)PT. 18.2 SECONDS (11.7-14.9)
== END ==
PROVIDERS: Family Provider Internal Medicine; PCP Internal Medicine; Referring Provider Nurse Practitioner; Visit Provider Nurse Practitioner
DX: Z79.01 Long term (current) use of anticoagulants (principal)
CPT/HCPCS: 85610

== ENCOUNTER 2022-01-15 14:08 | Emergency (ER) | payer MEDICARE, SELFPAY ==
[2022-01-15 14:09] VITALS: BP 159/70; PULSE 61; RESP 20; TEMP 36.6; O2SAT 98; BMI 47.2
--- NOTE | 2022-01-15 14:25 | EKG12_ITS ---
Test Reason : GENERAL ILLNESS Blood Pressure : / mmHG Vent. Rate : 049 BPM Atrial Rate : 227 BPM P-R Int : 000 ms QRS Dur : 154 ms QT Int : 522 ms P-R-T Axes : 000 081 021 degrees QTc Int : 471 ms Atrial fibrillation Right bundle branch block Abnormal ECG Confirmed by DIONNE ESCOBEDO, TRACI ([id number]), script editor ANTHONY GEE ([id number]) on 01/17/2022 1:36:42 PM Referred By: JUSTINE Confirmed By:TRACI TRUONG MD
--- NOTE | 2022-01-15 14:26 | EX.ED.DYSGE1 ---
HPI History of Present Illness Chief Complaint: General Illness Informant: patient and spouse/S.O. Onset/Context/Timing Onset: Days Context: Gradual Onset Narrative Narrative: Patient present secondary to shortness of breath with exertion as well as feeling wobbly on his feet for the past couple days. He denies URI symptoms. He has had some chills but no fever. No cough or chest pain. He does report urinary frequency. [facility] Medical History Afib CAD (coronary artery disease) CHF (congestive heart failure) Diabetes Home Medications Liraglutide [Victoza 2-Horace] 1.8 mg SQ DAILY 07/02/16 [History Last Taken 07/12/16] Lovastatin [Mevacor] 40 mg PO QHS 07/02/16 [History Last Taken 07/11/16] doxazosin 2 mg PO QHS 07/02/16 [History Last Taken 07/11/16] glipizide 10 mg PO DAILY@0730 07/02/16 [History Last Taken 07/12/16] lisinopril 10 mg PO DAILY 07/02/16 [History Last Taken 07/12/16] multivitamin with folic acid [Thera] 1 tab PO DAILY 07/02/16 [History Last Taken 07/11/16] furosemide 20 mg PO DAILY 04/01/18 [History Last Taken Unknown] insulin glargine [Lantus Solostar U-100 Insulin] 15 units SUBCUT QHS 04/01/18 [History Last Taken Unknown] nitroglycerin [Nitrostat] 0.4 mg SUBLINGUAL PRN PRN 04/01/18 [History Last Taken Unknown] sotalol 80 mg PO QHS 04/01/18 [History Last Taken Unknown] spironolactone 25 mg PO QHS 04/01/18 [History Last Taken Unknown] warfarin [Jantoven] 10 mg PO DAILY 04/01/18 [History Last Taken 04/09/18] albuterol sulfate 2 puff INHALATION Q4H PRN PRN #1 inhaler 01/07/19 [Rx Last Taken Unknown] albuterol sulfate [Proair Hfa (SP)Vent Pts] 2 puff INHALATION Q4H PRN PRN 01/07/19 [History Last Taken Unknown] azithromycin 250 mg PO UD #1 box 01/07/19 [Rx Last Taken Unknown] oxycodone 5 mg PO BID PRN PRN 01/07/19 [History Last Taken Unknown] vitamin E (dl, acetate) 200 unit PO DAILY 01/07/19 [History Last Taken Unknown] Allergy/AdvReac Type Severity Reaction Status Date / Time finasteride [From Proscar] Allergy Hives Verified 01/15/22 14:11 Social History Smoking Status: Former smoker ROS ROS ED Constitutional Constitutional ED: Reports chills; Denies fever(s) Eyes Eyes: Denies change in vision ENT ENT ED: Denies sore throat Cardiovascular Cardiovascular: Denies chest pain Respiratory/Chest Respiratory/Chest: Reports dyspnea; Denies cough Gastrointestinal Gastrointestinal: Denies abdominal pain, diarrhea, nausea or vomiting Genitourinary Genitourinary ED: Reports urinary frequency; Denies dysuria Musculoskeletal Musculoskeletal: Denies back pain Integumentary Denies rash Neurologic Neurologic: Reports weakness; Denies headache(s) Allergic/Immunologic Allergic/Immunologic ED: Denies urticaria EXAM Physical Exam Const Vital Signs: 01/15/22 14:09 01/15/22 14:32 01/15/22 14:38 Temperature 97.9 F Temperature Source Temporal Pulse Rate 61 58 L Respiratory Rate 20 H 19 H Respiratory Effort Short of Breath Labored Respiratory Depth Normal Blood Pressure 159/70 H Blood Pressure Mean 99 Pulse Ox 98 98 Oxygen Delivery Method Room Air Room Air 01/15/22 15:43 01/15/22 16:59 Temperature Temperature Source Pulse Rate 54 L 54 L Respiratory Rate 18 18 Respiratory Effort Respiratory Depth Blood Pressure 101/79 115/97 H Blood Pressure Mean 86 103 Pulse Ox 96 Oxygen Delivery Method Room Air Positive obese Nutritional Appearance: obese HEENT Reports moist mucous membranes Eyes PERRL and EOMs intact bilaterally Neck supple Chest Wall inspection of chest normal and palpation of chest normal Resp normal respiratory effort and clear to auscultation bilaterally Cardio Rhythm: abnormal rhythm irregularly irregular GI normal to inspection, nondistended, normoactive bowel sounds and non-tender Palpation: soft Extremity Extremity Narrative: 3+ bilateral lower extremity edema. General Extremety ED: Yes edema General Extremity: edema Neuro oriented x3 Sensorium / Orientation: alert Psych mental status grossly normal Skin no rashes or lesions noted MDM MDM MDM Narrative Medical decision making narrative: Lab work, urinalysis, chest x-ray obtained. EKG ordered. Lab Data Attestation: I reviewed the patient's lab results. Labs: Laboratory Results - last 24 hr 01/15/22 01/15/22 01/15/22 14:20 14:20 14:20 WBC 6.7 RBC 4.45 L Hgb 12.6 L Hct 40.0 MCV 89.9 MCH 28.3 MCHC 31.5 L RDW Std Deviation 42.2 RDW Coeff of Jazmin 12.9 Plt Count 132 L MPV 12.1 H Immature Gran % (Auto) 0.300 Neut % (Auto) 63.0 Lymph % (Auto) 23.4 [place] % (Auto) 8.3 Eos % (Auto) 4.6 Baso % (Auto) 0.4 Absolute Neuts (auto) 4.2 Absolute Lymphs (auto) 1.57 Nucleated RBC % 0 Sodium 142 Potassium 4.3 Chloride 109 H Carbon Dioxide 29.0 Anion Gap 4 L BUN 50 H Creatinine 2.02 H Estim Creat Clear Calc 28.48 Est GFR (MDRD) Af Amer 41 L Est GFR (MDRD) Non-Af 34 L BUN/Creatinine Ratio 24.8 H Glucose 101 Calcium 10.6 H Troponin I High Sens 19 B-Natriuretic Peptide 271.9 H Urine Color Urine Clarity Urine pH Ur Specific [place] Urine Protein Urine Glucose (UA) Urine Ketones Urine Occult Blood Urine Nitrite Urine Bilirubin Urine Urobilinogen Ur Leukocyte Esterase Urine RBC Urine WBC Ur Squamous Epith Cells Urine Bacteria Urine Mucus 01/15/22 15:30 WBC RBC Hgb Hct MCV MCH MCHC RDW Std Deviation RDW Coeff of Jazmin Plt Count MPV Immature Gran % (Auto) Neut % (Auto) Lymph % (Auto) [place] % (Auto) Eos % (Auto) Baso % (Auto) Absolute Neuts (auto) Absolute Lymphs (auto) Nucleated RBC % Sodium Potassium Chloride Carbon Dioxide Anion Gap BUN Creatinine Estim Creat Clear Calc Est GFR (MDRD) Af Amer Est GFR (MDRD) Non-Af BUN/Creatinine Ratio Glucose Calcium Troponin I High Sens B-Natriuretic Peptide Urine Color Yellow Urine Clarity Sl. Cloudy Urine pH 6.0 Ur Specific [place] 1.010 Urine Protein Negative Urine Glucose (UA) Normal Urine Ketones Negative Urine Occult Blood 250 H Urine Nitrite Negative Urine Bilirubin Negative Urine Urobilinogen Normal Ur Leukocyte Esterase 25 H Urine RBC 25-50 SEEN Urine WBC 0-5 SEEN Ur Squamous Epith Cells 0-5 SEEN Urine Bacteria 0 SEEN Urine Mucus 0 SEEN Radiography Chest X-Ray - ED: 1 View, Read by ED Physician and - (Mild CHF) Diagnostic Testing: Clinical Impression(s) from Imaging Studies Chest X-Ray 01/15/22 14:35 IMPRESSION: Patchy infiltrate in left mid lung as well as increased markings at the right lung base. Electronically Signed: John Sanchez MD at 14:59 EST , EKG Initial EKG: Attestation: I personally reviewed and interpreted this EKG as follows: Interpretation: Atrial Fibrillation (Atrial fibrillation with ventricular rate of 49. No acute ischemia.) Treatment and Re-Evaluation Comments:: Lab work largely unremarkable. Troponin normal. BNP 272. Urinalysis shows blood but no sign of infection. Test results discussed with the patient. I believe his x-ray looks slightly wet and he does have 3+ pitting edema to the lower extremities. He does not have fever, cough, elevated white count to support pneumonia. I will have him double his Lasix for the next 5 days to help diurese him. He is to follow-up with his primary care physician. Return instructions are provided. Discharge Plan Triage Chief Complaint: General Illness ED Provider: Geneva Alexandre Dx/Rx/DC Orders Clinical Impression: CHF (congestive heart failure) Instructions: ED Heart Failure, Congestive (CHF) Prescriptions: No Action glipizide 10 MG tablet 10 mg PO DAILY@0730 RF: 0 lisinopril 10 MG tablet 10 mg PO DAILY RF: 0 doxazosin 2 MG tablet 2 mg PO QHS RF: 0 multivitamin with folic acid [Thera] 1 TABLET tablet 1 tab PO DAILY RF: 0 Liraglutide [Victoza 2-Horace] 0.6 MG/0.1 ML Ml 1.8 mg SQ DAILY RF: 0 Lovastatin [Mevacor] 40 MG tablet 40 mg PO QHS RF: 0 sotalol 80 MG tablet 80 mg PO QHS RF: 0 warfarin [Jantoven] 5 MG tablet 10 mg PO DAILY RF: 0 spironolactone 25 MG tablet 25 mg PO QHS RF: 0 nitroglycerin [Nitrostat] 0.4 MG Tab.Subl 0.4 mg sublingual PRN PRN (Reason: CHEST PAIN) RF: 0 furosemide 20 MG tablet 20 mg PO DAILY RF: 0 insulin glargine [Lantus Solostar U-100 Insulin] 100 UNITS/ML Pen 15 units subcut QHS RF: 0 albuterol sulfate [ProAir HFA] 1 PUFF inhaler 2 puff inhalation Q4H PRN PRN (Reason: Sob &/Or Wheezing) RF: 0 vitamin E (dl, acetate) 200 UNIT capsule 200 unit PO DAILY RF: 0 oxycodone 5 MG tablet 5 mg PO BID PRN PRN (Reason: Mod-Severe Pain (-08/26)) RF: 0 albuterol sulfate 1 INHALER inhaler 2 puff Inhalation Q4H PRN PRN (Reason: Wheezing) Qty: 1 RF: 0 azithromycin 250 MG tablet 250 mg PO UD Qty: 1 RF: 0 Primary Care Provider: Nithin Acevedo Referrals: Nithin Acevedo MD [Primary Care Provider] - 1 Week if not improving Activity Restrictions/Additional Instructions: As discussed, please double your furosemide/Lasix dose to 40 mg for the next 5 days. Disposition Disposition: Home, Self Care
[2022-01-15 14:32] VITALS: PULSE 58; RESP 19; O2SAT 98
--- NOTE | 2022-01-15 14:35 | RAD_ITS ---
STUDY: X-RAY CHEST REASON FOR EXAM: Male, 86 years old. Sob TECHNIQUE: Single AP portable view of the chest. COMPARISON: Comparison is made with prior study dated 01/07/2019. FINDINGS: EKG electrodes are seen. Patchy infiltrate in the left mid lung. Mild increased markings at the right lung base. Follow-up is recommended. There is no demonstrated pleural abnormality. Sternal cerclage wires are present from a prior sternotomy. Normal mediastinum and tapan. Normal visualized pulmonary arteries. Normal visualized aortic arch and descending thoracic aorta. There are diffuse degenerative changes of the visualized thoracic spine. Normal visualized ribs, clavicles, and shoulders. There is no demonstrated abnormality of the visualized soft tissue structures of the upper abdomen. RAD/Chest 1 View (Portable) IMPRESSION: Patchy infiltrate in left mid lung as well as increased markings at the right lung base. Electronically Signed: John Sanchez MD at 14:59 EST ,
[2022-01-15 14:36] LABS: Absolute Lymphocyte Count 1.57 X10^3/uL (0.83-4.51); Absolute Neutrophil Count 4.2 X10^3/uL (2.0-7.7); Basophil# 0.03 X10^3/uL; Basophil% 0.4 % (0-1); Eosinophil# 0.31 X10^3/uL; Eosinophils% 4.6 % (0-5); Hemoglobin 12.6 g/dL (13.0-16.5); Lymphocyte # 1.57 X10^3/ul (0.83-4.51); Lymphocyte % 23.4 % (19-41); Mean Corp Hgb Conc 31.5 g/dL (32-36); Mean Corpuscular Hgb 28.3 pg (27.0-32.0); Mean Corpuscular Volume 89.9 fL (80-94); Mean Platelet Vol. 12.1 fl (6.2-12.0); Monocyte# 0.56 X10^3/uL; Monocyte% 8.3 % (0-10); NRBC Flagged by Analyzer 0 % (0-5); Neutrophil # 4.22 X10^3/uL (2.7-7.7); Platelet Count 132 K/mm3 (150-450); RBC Distribution Width CV 12.9 % (11.6-14.6); RBC Distribution Width SD 42.2 fl (35.1-43.9); Red Blood Count 4.45 M/mm3 (4.6-6.2); White Blood Count 6.7 K/mm3 (4.4-11.0)
[2022-01-15 14:38] VITALS: O2SAT 96
--- NOTE | 2022-01-15 14:39 | EKG12_ITS ---
Test Reason : GENERAL ILLNESS Blood Pressure : / mmHG Vent. Rate : 053 BPM Atrial Rate : 357 BPM P-R Int : 000 ms QRS Dur : 156 ms QT Int : 528 ms P-R-T Axes : 000 082 052 degrees QTc Int : 495 ms Atrial fibrillation Right bundle branch block Abnormal ECG When compared with ECG of 15-JAN-2022 14:38, MANUAL COMPARISON REQUIRED, DATA IS UNCONFIRMED Confirmed by MAXIME ESCOBEDO, BRYAN ([id number]), material expeditor ANTHONY GEE ([id number]) on 01/18/2022 1:49:38 PM Referred By: JUSTINE Confirmed By:REEMA SWARTZ MD
[2022-01-15 14:53] LABS: Anion Gap 4 (5-15); BUN 50 mg/dL (7-18); BUN/Creat Ratio 24.8 RATIO (10-20); Calcium,Total 10.6 mg/dL (8.5-10.1); Chloride 109 mmol/L (98-107); Creatinine, Serum 2.02 mg/dL (0.70-1.30); EST Glomerular Filtration Rate 34 mL/min (>60); Est Glom Filt Rate - Afr Amer 41 mL/min (>60); Estimated Creatinine Clearance 28.48 ml/min; Glucose 101 mg/dL (74-106); Potassium 4.3 mmol/L (3.5-5.1); Sodium Level 142 mmol/L (136-145); Troponin-I HS 19 pg/mL (3.0-78.0)
[2022-01-15 14:55] LABS: BNP,B-Type NATRIURETIC PEPTIDE 271.9 pg/mL (0-100)
[2022-01-15 15:36] LABS: Bacteria 0 SEEN /hpf (None Seen); Mucous, Urine 0 SEEN /hpf (<or=2+)
[2022-01-15 15:43] VITALS: BP 101/79; PULSE 54; RESP 18; O2SAT 96
[2022-01-15 16:19] LABS: Color, Urine Yellow (Yellow); Glucose, Dipstick Normal (Normal); Ketone-Dipstick Negative (Negative); Leukocyte Esterase-Dipstick 25 /ul (Negative); Nitrite-Dipstick Negative (Negative); Occult Blood-Urine 250 /ul (Negative); Protein-Dipstick Negative (Negative); Urine Bilirubin Dipstick Negative (Negative); Urine Clarity Sl. Cloudy (Clear); Urine Urobilinogen Normal (Normal)
[2022-01-15 16:44] LABS: Red Blood Cells-Urine 25-50 SEEN /hpf (0-5); Squamous Epithelial Cells - UA 0-5 SEEN /hpf (0-5); White Blood Cells 0-5 SEEN /hpf (0-5)
[2022-01-15 16:59] VITALS: BP 115/97; PULSE 54; RESP 18
== END 2022-01-15 17:27 | disposition home or self-care (01) ==
PROVIDERS: Emergency Provider Emergency Medicine; PCP Internal Medicine; Visit Provider Emergency Medicine
DX: I50.9 Heart failure, unspecified (principal); I48.91 Unspecified atrial fibrillation; Z68.42 Body mass index [BMI] 45.0-49.9, adult; E11.9 Type 2 diabetes mellitus without complications; I25.10 Atherosclerotic heart disease of native coronary artery without angina pectoris; R35.0 Frequency of micturition; Z87.891 Personal history of nicotine dependence; Z79.899 Other long term (current) drug therapy; Z79.01 Long term (current) use of anticoagulants; Z79.84 Long term (current) use of oral hypoglycemic drugs; E66.9 Obesity, unspecified
CPT/HCPCS: 71045; 80048; 81001; 83880; 84484; 85025; 93005; 99284

== ENCOUNTER 2024-03-27 12:33 | Emergency (ER) | payer MEDICARE, SELFPAY ==
[2024-03-27 12:33] VITALS: BP 155/47; PULSE 73; RESP 16; TEMP 36.4; O2SAT 100
[2024-03-27 12:34] VITALS: BMI 50.8
--- NOTE | 2024-03-27 12:47 | EX.ED.DYSGE1 ---
HPI <ANSELMO Kenney - Last Filed: 03/27/24 14:46> History of Present Illness Chief Complaint: Abscess Narrative Narrative: Patient presenting today due to concerns for infection to his right fourth toe that he noticed today. He reports that 3 days ago his puppy bit his toe. Today he noticed the area was red and slightly painful. He did go to urgent care this morning but they were concerned that he might need a x-ray and encouraged him to come in for evaluation. He does have a history of diabetes mellitus. He denies any fevers, chills, abdominal pain, nausea, and vomiting. [facility] <ANSELMO Kenney - Last Filed: 03/27/24 14:46> [facility] Medical History Afib CAD (coronary artery disease) CHF (congestive heart failure) Diabetes Home Medications Lovastatin [Mevacor] 40 mg PO QHS CHOLESTEROL 07/02/16 [History Last Taken 07/11/16] doxazosin 2 mg tablet 2 mg PO QHS PROSTATE 07/02/16 [History Last Taken 07/11/16] multivitamin with folic acid 400 mcg tablet (Thera) 1 tab PO DAILY SUPPLEMENT 07/02/16 [History Last Taken 07/11/16] furosemide 20 mg tablet 20 mg PO DAILY BP 04/01/18 [History Last Taken Unknown] nitroglycerin 0.4 mg sublingual tablet (Nitrostat) 0.4 mg sublingual PRN PRN CHEST PAIN 04/01/18 [History Last Taken Unknown] spironolactone 25 mg tablet 25 mg PO QHS BP 04/01/18 [History Last Taken Unknown] warfarin 5 mg tablet (Jantoven) 10 mg PO DAILY BLOOD THINNER 04/01/18 [History Last Taken 04/09/18] albuterol sulfate 90 mcg/actuation aerosol inhaler 2 puff inhalation Q4H PRN PRN Wheezing ##1 01/07/19 [Rx Last Taken Unknown] vitamin E (dl, acetate) 90 mg (200 unit) capsule 200 unit PO DAILY 01/07/19 [History Last Taken Unknown] amoxicillin 875 mg-potassium clavulanate 125 mg tablet 1 tab PO BID 10 days #19 tabs 03/27/24 [Rx Last Taken Unknown] apixaban 2.5 mg tablet (Eliquis) 2.5 mg PO BID 03/27/24 [History Last Taken Unknown] dapagliflozin propanediol 5 mg tablet (Farxiga) 5 mg PO QHS 03/27/24 [History Last Taken Unknown] ferrous sulfate 137 mg (45 mg iron) tablet,extended release 137 mg PO DAILY 03/27/24 [History Last Taken Unknown] insulin degludec 100 unit/mL subcutaneous solution (Tresiba U-100 Insulin) 40 unit subcut DAILY 03/27/24 [History Last Taken Unknown] Allergy/AdvReac Type Severity Reaction Status Date / Time finasteride [From [employer]] Allergy Hives Verified 03/27/24 12:35 Social History Smoking Status: Former smoker ROS <ANSELMO Kenney - Last Filed: 03/27/24 14:46> ROS ED Constitutional Constitutional ED: Denies chills or fever(s) Cardiovascular Cardiovascular: Denies chest pain Respiratory/Chest Respiratory/Chest: Denies dyspnea Gastrointestinal Gastrointestinal: Denies abdominal pain, nausea or vomiting Musculoskeletal Musculoskeletal: Reports arthralgias Integumentary Reports other Details: Right fourth toe wound Neurologic Neurologic: Denies weakness EXAM <ANSELMO Kenney - Last Filed: 03/27/24 14:46> Physical Exam Const Vital Signs: 03/27/24 12:33 03/27/24 12:33 03/27/24 13:33 Temperature 97.6 F L 97.6 F L 97.8 F Temperature Source Temporal Temporal Temporal Pulse Rate 73 73 75 Respiratory Rate 16 16 18 Blood Pressure 155/47 H 155/47 H 152/50 H Blood Pressure Mean 83 83 84 Pulse Ox 100 100 99 Oxygen Delivery Method Room Air Room Air Room Air 03/27/24 14:00 Temperature 98.5 F Temperature Source Temporal Pulse Rate 69 Respiratory Rate 13 Blood Pressure 127/74 H Blood Pressure Mean 91 Pulse Ox 97 Oxygen Delivery Method Room Air Positive well nourished, well developed and no apparent distress General Appearance ED: well developed HEENT Reports normocephalic and head/scalp atraumatic Mouth ED: Yes moist mucous membranes normal Eyes PERRL and EOMs intact bilaterally Neck full ROM and supple Chest Wall inspection of chest normal Resp normal respiratory effort and clear to auscultation bilaterally Cardio regular rate and regular rhythm Back/Spine normal ROM and normal to inspection Extremity full ROM Extremity Narrative: Erythema and warmth to the right fourth toe and dorsum of the right foot, small wound to the dorsal aspect of the right fourth toe, no purulent discharge. Neuro oriented x3, CN's II-XII intact bilaterally, moves all extremities, no focal motor deficits and no sensory deficits noted Sensorium / Orientation: awake and alert Psych mental status grossly normal and thought process normal <Jerry Jimenes MD - Last Filed: 03/27/24 14:50> Physical Exam Const Vital Signs: 03/27/24 12:33 03/27/24 12:33 03/27/24 13:33 Temperature 97.6 F L 97.6 F L 97.8 F Temperature Source Temporal Temporal Temporal Pulse Rate 73 73 75 Respiratory Rate 16 16 18 Blood Pressure 155/47 H 155/47 H 152/50 H Blood Pressure Mean 83 83 84 Pulse Ox 100 100 99 Oxygen Delivery Method Room Air Room Air Room Air 03/27/24 14:00 Temperature 98.5 F Temperature Source Temporal Pulse Rate 69 Respiratory Rate 13 Blood Pressure 127/74 H Blood Pressure Mean 91 Pulse Ox 97 Oxygen Delivery Method Room Air MDM <ANSELMO Kenney - Last Filed: 03/27/24 14:46> [facility] Narrative Medical decision making narrative: Patient presenting today with concerns for cellulitis to his right fourth toe after his puppy bit his toe 3 days ago. He is well-appearing and in no acute distress, vitals are unremarkable. He does not have any other acute complaints. He originally went to urgent care but they did not have x-ray capabilities and recommended he come here. Patient does have erythema to the dorsal aspect of the fourth toe and dorsum of the foot, no purulent discharge from the wound. Tetanus is not up-to-date, this will be updated here. He will be started on Augmentin with first dose here. X-ray obtained to rule out osteomyelitis and is negative for any acute findings. Return instructions discussed, encouraged follow-up with PCP. Patient discharged home in stable condition. Lab Data Attestation: I reviewed the patient's lab results. Labs: Laboratory Results - last 24 hr 03/27/24 12:51 POC Glucose 132 H Radiography X-Ray: Read by ED Physician Diagnostic Testing: Clinical Impression(s) from Imaging Studies Foot X-Ray 03/27/24 13:00 IMPRESSION: No demonstrated fracture or suspicious osseous lesion Dorsal soft tissue swelling without subcutaneous emphysema Polyarticular arthrosis with calcaneal spurs Electronically Signed: Dylan Perez MD at 14:27 EDT , <Jerry Jimenes MD - Last Filed: 03/27/24 14:50> [facility] MDM Narrative Medical decision making narrative: Patient presenting today with concerns for cellulitis to his right fourth toe after his puppy bit his toe 3 days ago. He is well-appearing and in no acute distress, vitals are unremarkable. He does not have any other acute complaints. He originally went to urgent care but they did not have x-ray capabilities and recommended he come here. Patient does have erythema to the dorsal aspect of the fourth toe and dorsum of the foot, no purulent discharge from the wound. Tetanus is not up-to-date, this will be updated here. He will be started on Augmentin with first dose here. X-ray obtained to rule out osteomyelitis and is negative for any acute findings. This was read by the ED physician and interpreted by the ED physician and discussed. Return instructions discussed, encouraged follow-up with PCP. Patient discharged home in stable condition. Dr. Jimenes: I have personally performed a face to face assessment of the patient and have reviewed the TAMIKA Note. I performed a substantive portion of the visit including all aspects of the following. My christianson findings include: History is patient with past medical history of diabetes, had a his puppy bite his fourth toe on his right foot 3 days ago. He has developed pain and swelling of the dorsum of his right foot at the base of the fourth toe. He denies any fevers or chills, no nausea or vomiting, no other symptoms. Exam is afebrile. Vital signs noted. Nontoxic-appearing. Examination of the right foot does show mild swelling of the dorsum of the right foot with erythema, no crepitance. There are puncture wounds on the fourth digit, but no bony tenderness. Medical Decision Making: In the differential would be fracture of toe versus cellulitis. I have low suspicion for necrotizing fasciitis. X-rays were obtained of the right foot in 3 views and interpreted by myself independently as no evidence of gas in the tissue, no fracture. I reviewed the radiology report which confirms my independent interpretation. I do feel that the patient merits outpatient treatment. 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 They are to call on Friday. Return instructions to the emergency department were reviewed. Currently he is afebrile and not tachycardic so I do not feel that laboratory work is indicated. Disposition is discharged in stable condition. Other additions or changes: [None] Lab Data Labs: Laboratory Results - last 24 hr 03/27/24 12:51 POC Glucose 132 H Radiography Diagnostic Testing: Clinical Impression(s) from Imaging Studies Foot X-Ray 03/27/24 13:00 IMPRESSION: No demonstrated fracture or suspicious osseous lesion Dorsal soft tissue swelling without subcutaneous emphysema Polyarticular arthrosis with calcaneal spurs Electronically Signed: Dylan Perez MD at 14:27 EDT Reading Location ID and State: [address] [place] [address] , Service support , Discharge Plan Triage Chief Complaint: Abscess ED Midlevel Provider: Christina Bryant ED Provider: Jerry Jimenes Dx/Rx/DC Orders Clinical Impression: Dog bite of toe, Cellulitis of foot, right Instructions: ED Cellulitis, ED Dog Bite Prescriptions: New amoxicillin-pot clavulanate 875-125 mg tablet 1 tab PO BID 10 Days Qty: 19 0RF No Action doxazosin 2 MG tablet 2 mg PO QHS Patient Comments: PROSTATE multivitamin with folic acid [Thera] 1 TABLET tablet 1 tab PO DAILY Patient Comments: SUPPLEMENT Lovastatin [Mevacor] 40 MG tablet 40 mg PO QHS Patient Comments: CHOLESTEROL warfarin [Jantoven] 5 MG tablet 10 mg PO DAILY Patient Comments: BLOOD THINNER. 10,10,7.5MG REPEAT Rx Instructions: resume 08/21 spironolactone 25 MG tablet 25 mg PO QHS nitroglycerin [Nitrostat] 0.4 MG tablet, sublingual 0.4 mg sublingual PRN PRN (Reason: CHEST PAIN) furosemide 20 MG tablet 20 mg PO DAILY vitamin E (dl, acetate) 200 UNIT capsule 200 unit PO DAILY albuterol sulfate 1 INHALER inhaler 2 puff Inhalation Q4H PRN PRN (Reason: Wheezing) Qty: 1 0RF insulin degludec [Tresiba U-100 Insulin] 100 unit/mL solution 40 unit subcut DAILY Eliquis 2.5 mg tablet 2.5 mg PO BID dapagliflozin propanediol [Farxiga] 5 mg tablet 5 mg PO QHS ferrous sulfate 137 mg (45 mg iron) tablet extended release 137 mg PO DAILY Primary Care Provider: Nithin Acevedo Referrals: Nithin Acevedo MD [Primary Care Provider] - 5-7 Days Activity Restrictions/Additional Instructions: Please follow-up with your PCP, take antibiotics as directed. Return for any worsening of your symptoms, fevers, or chills. Disposition Disposition: Home, Self Care
--- NOTE | 2024-03-27 13:00 | RAD_ITS ---
STUDY: X-RAY - RIGHT FOOT CLINICAL: Male, 88 years old. Wound TECHNIQUE: 2 view(s) of the foot. COMPARISON: None. FINDINGS: Normal talus and tarsal bones. Calcaneal spurs Normal visualized subtalar, talonavicular, calcaneocuboid, tarsal and tarsometatarsal articulations. Normal metatarsi. There is degenerative arthrosis of the metatarsophalangeal joint of the hallux . Normal tibial and fibular sesamoid bones. There is degenerative arthrosis of the interphalangeal joint of the great toe. Normal phalanges of the great toe. Normal second through fifth metatarsophalangeal joints. Interphalangeal joint arthrosis Dorsal soft tissue swelling without evidence of subcutaneous emphysema RAD/Foot 2 Views IMPRESSION: No demonstrated fracture or suspicious osseous lesion Dorsal soft tissue swelling without subcutaneous emphysema Polyarticular arthrosis with calcaneal spurs Electronically Signed: Dylan Perez MD at 14:27 EDT ,
[2024-03-27 13:33] VITALS: BP 152/50; PULSE 75; RESP 18; TEMP 36.6; O2SAT 99
[2024-03-27 13:36] LABS: Bedside Glucose 132 mg/dL (74-106)
[2024-03-27] MEDS: Amox/Clavulanate 875 MG Tablet PO (13:55)
[2024-03-27] MEDS: Diphth,Pertuss(Acell),Tet Vac 0.5 ML Vial IM (13:55)
[2024-03-27 14:00] VITALS: BP 127/74; PULSE 69; RESP 13; TEMP 36.9; O2SAT 97
[2024-03-27 15:08] VITALS: BP 130/72; PULSE 74; RESP 16; TEMP 36.8; O2SAT 99
== END 2024-03-27 15:10 | disposition home or self-care (01) ==
PROVIDERS: Emergency Provider Emergency Medicine; PCP Internal Medicine; Visit Provider Emergency Medicine
DX: L03.115 Cellulitis of right lower limb (principal); I50.9 Heart failure, unspecified; I48.91 Unspecified atrial fibrillation; E11.9 Type 2 diabetes mellitus without complications; Z79.4 Long term (current) use of insulin; Z87.891 Personal history of nicotine dependence; I25.10 Atherosclerotic heart disease of native coronary artery without angina pectoris; Z79.01 Long term (current) use of anticoagulants; S91.154A Open bite of right lesser toe(s) without damage to nail, initial encounter; W54.0XXA Bitten by dog, initial encounter; Z23 Encounter for immunization
CPT/HCPCS: 73620; 82962; 90471; 90715; 99282

== ENCOUNTER 2025-07-21 10:26 | Inpatient (IN) | payer MEDICARE, SELFPAY ==
[2025-07-21] VITALS (11 sets, daily range): BP systolic 99–125; BP diastolic 41–69; PULSE 56–76; RESP 16–20; TEMP 36.5–36.6; O2SAT 92–96; BMI 51.3; BMI 48.3
--- NOTE | 2025-07-21 10:41 | EKG12_ITS ---
Test Reason : Blood Pressure : */* mmHG Vent. Rate : 71 BPM Atrial Rate : * BPM P-R Int : * ms QRS Dur : 152 ms QT Int : 448 ms P-R-T Axes : * 99 14 degrees QTcB Int : 486 ms Atrial fibrillation Right bundle branch block Abnormal ECG Confirmed by MAXIME ESCOBEDO, BRYAN ([id number]), mapping editor KEZIA BENAVIDES ([id number]) on 07/25/2025 8:58:26 AM Referred By: Confirmed By: BRYAN SWARTZ MD
--- NOTE | 2025-07-21 10:42 | ED.VIS.DYS ---
HPI History of Present Illness Chief Complaint: Shortness of Breath Detail of Chief Complaint: Shortness of breath Informant: patient Narrative Narrative: Patient presents to the emergency department with complaint of shortness of breath for several weeks. Complains of bilateral leg swelling and exertional dyspnea. Has been sleeping in a recliner for a few weeks because he cannot lay flat. Patient history of A-fib as well as history of CHF and coronary artery disease. Currently on warfarin. Does have a cough and at times bringing up some green phlegm. He has had no fever. [facility] Medical History Afib CAD (coronary artery disease) CHF (congestive heart failure) Diabetes Home Medications ?Medication ?Instructions ?Recorded ?Last Taken ?Type Lovastatin [Mevacor] 40 mg PO QHS CHOLESTEROL 07/02/16 07/11/16 History doxazosin 2 mg tablet 2 mg PO QHS PROSTATE 07/02/16 07/11/16 History multivitamin with folic acid 400 1 tab PO DAILY SUPPLEMENT 07/02/16 07/11/16 History mcg tablet (Thera) nitroglycerin 0.4 mg sublingual 0.4 mg sublingual PRN PRN CHEST 04/01/18 Unknown History tablet (Nitrostat) PAIN spironolactone 25 mg tablet 25 mg PO QHS BP 04/01/18 Unknown History albuterol sulfate 90 mcg/actuation 2 puff inhalation Q4H PRN PRN 01/07/19 Unknown Rx aerosol inhaler Wheezing ##1 vitamin E (dl, acetate) 90 mg (200 200 unit PO DAILY 01/07/19 Unknown History unit) capsule apixaban 2.5 mg tablet (Eliquis) 2.5 mg PO BID 03/27/24 Unknown History dapagliflozin propanediol 5 mg 5 mg PO QHS 03/27/24 Unknown History tablet (Farxiga) ferrous sulfate 137 mg (45 mg 137 mg PO DAILY 03/27/24 Unknown History iron) tablet,extended release insulin degludec 100 unit/mL 40 unit subcut DAILY 03/27/24 Unknown History subcutaneous solution (Tresiba U-100 Insulin) atorvastatin 40 mg tablet 40 mg PO DAILY 07/21/25 Unknown History empagliflozin 10 mg tablet 10 mg PO DAILY 07/21/25 Unknown History (Jardiance) furosemide 40 mg tablet 40 mg PO BID 07/21/25 Unknown History sacubitril 97 mg-valsartan 103 mg 1 tab PO BID 07/21/25 Unknown History tablet (Entresto) Allergy/AdvReac Type Severity Reaction Status Date / Time finasteride (From Proscar) Allergy Hives Verified 07/21/25 10:26 Social History (Updated 07/21/25 @ 10:37 by Irma Hensley) household members: family Smoking Status: Former smoker ROS ROS ED ROS Narrative Weight gain Review of Systems ROS Unobtainable: other Constitutional Constitutional ED: Reports lethargy; Denies chills, fever(s), sweats or weight loss Eyes Eyes: Denies blurry vision, change in vision or diplopia ENT ENT ED: Denies rhinorrhea or sore throat Cardiovascular Cardiovascular: Reports orthopnea and racing heartbeat; Denies chest pain Respiratory/Chest Respiratory/Chest: Reports cough, dyspnea, dyspnea on exertion, orthopnea and sputum Gastrointestinal Gastrointestinal: Denies abdominal pain, diarrhea, nausea or vomiting Genitourinary Genitourinary ED: Denies dysuria, hematuria or urinary frequency Musculoskeletal Musculoskeletal: Reports other Details: Leg edema ; Denies arthralgias, back pain, myalgias or neck pain Integumentary Denies abscess, Abrasions or rash Neurologic Neurologic: Denies headache(s) or weakness Psychiatric Psychiatric: Denies anxiety, depression or suicidal thoughts Endocrine Endocrinology: Denies polydipsia, polyphagia or polyuria Hematologic/Lymphatic Hematologic/Lymphatic: Denies easy bleeding, easy bruising or lymphadenopathy Allergic/Immunologic Allergic/Immunologic ED: Denies mouth swelling, tongue swelling or urticaria EXAM Physical Exam Const Vital Signs: 07/21/25 10:26 07/21/25 10:42 07/21/25 10:44 Temperature 97.8 F Temperature Source Oral Pulse Rate 76 Respiratory Rate 20 H Respiratory Effort Short of Breath Respiratory Depth Normal Respiratory Pattern Normal Blood Pressure 123/41 H Blood Pressure Mean 68 Pulse Ox 96 95 Oxygen Delivery Method Room Air Room Air Room Air Positive well nourished and well developed General Appearance ED: well developed and NAD HEENT Reports TM's clear and moist mucous membranes normocephalic and atraumatic; Negative for trauma or tenderness Tympanic Membrane ED: Yes TM's clear Eyes PERRL and EOMs intact bilaterally General Eye ED: Negative for pale conjunctiva or scleral icterus Neck no lymphadenopathy, supple and no JVD General: Negative for tenderness Chest Wall inspection of chest normal and palpation of chest normal Chest: Negative for tenderness Resp normal respiratory effort and clear to auscultation bilaterally Effort and Inspection: Negative for respiratory distress or pain with movement Auscultation: Negative for rhonchi, wheezes or diminished lung sounds Cardio S1 normal heart sound, S2 normal heart sound and no murmurs; Negative for regular rate or regular rhythm Rhythm: abnormal rhythm irregularly irregular Peripheral Pulses: pulses 2+ throughout GI normal to inspection, nondistended, normoactive bowel sounds, soft to palpation, non-tender, non-distended and no masses Back/Spine no CVA tenderness and no thoracic nor lumbar tenderness Extremity Extremity Narrative: +3 edema both lower extremities to thighs General Extremety ED: Yes edema General Extremity: edema Neuro oriented x3, CN's II-XII intact bilaterally, no sensory deficits noted and gait normal Sensorium / Orientation: awake, alert, oriented to person, oriented to place and oriented to time Motor Exam: strength 5/5 throughout and strength abnormal Psych mental status grossly normal Skin no rashes or lesions noted and no wounds MDM MDM MDM Narrative Medical decision making narrative: Patient presents with increasing shortness of breath and leg swelling. History of CHF and history of A-fib. Some conversational dyspnea at rest. IV line established. Patient was medicated Lasix 40 mg IV. EKG obtained arrival showed atrial fibrillation with ventricular rate of 71 bpm with right bundle branch block. CBC with differential shows a white count 5.2 with hemoglobin 8.7 and platelet count of 120. Chemistry is unremarkable. BUN 63 and creatinine 3.12. Troponin 91 and BNP was 3236. 1 view chest x-ray obtained showed CHF. Case will be discussed with hospitalist to evaluate for admission Lab Data Attestation: I reviewed the patient's lab results. Labs: Laboratory Results - last 24 hr 07/21/25 10:47 WBC 5.2 RBC 3.32 L Hgb 8.7 L Hct 29.3 L MCV 88.3 MCH 26.2 L MCHC 29.7 L RDW Std Deviation 48.8 H RDW Coeff of Jazmin 15.0 H Plt Count 120 L MPV 12.2 H Immature Gran % (Auto) 0.600 Neut % (Auto) 74.0 H Lymph % (Auto) 12.7 L [place] % (Auto) 9.0 Eos % (Auto) 2.9 Baso % (Auto) 0.8 Absolute Neuts (auto) 3.9 Absolute Lymphs (auto) 0.66 L Nucleated RBC % 0 PT 16.8 H INR 1.3 Sodium 142 Potassium 4.6 Chloride 106 Carbon Dioxide 22.6 Anion Gap 14 BUN 63 H Creatinine 3.12 H Estim Creat Clear Calc 25.92 L Est GFR (MDRD) Non-Af 18 L BUN/Creatinine Ratio 20.0 Glucose 166 H Calcium 10.7 Troponin T High Sens 91 H* NT pro BNP II 3236 H Radiography Diagnostic Testing: Clinical Impression(s) from Imaging Studies Chest X-Ray 07/21/25 11:10 IMPRESSION: Mild cardiac enlargement. - Perihilar and basal pulmonary opacities, differential and recommendations as discussed above. Reading Location: [facility] 1 view chest x-ray obtained interpreted by myself is evidence of pulmonary edema consistent with CHF. Radiology felt there is perihilar and basal pulmonary opacities with differential to include infection versus edema or malignancies. EKG Initial EKG: Attestation: I personally reviewed and interpreted this EKG as follows: Comments: Atrial fibrillation with rate of 71 bpm with right bundle branch block Discharge Plan Triage Chief Complaint: Shortness of Breath ED Provider: Fely Parra Dx/Rx/DC Orders Clinical Impression: Dyspnea, CHF (congestive heart failure), Anemia, CKD (chronic kidney disease) Prescriptions: No Action doxazosin 2 MG tablet 2 mg PO QHS Patient Comments: PROSTATE multivitamin with folic acid [Thera] 1 TABLET tablet 1 tab PO DAILY Patient Comments: SUPPLEMENT Lovastatin [Mevacor] 40 MG tablet 40 mg PO QHS Patient Comments: CHOLESTEROL spironolactone 25 MG tablet 25 mg PO QHS nitroglycerin [Nitrostat] 0.4 MG tablet, sublingual 0.4 mg sublingual PRN PRN (Reason: CHEST PAIN) vitamin E (dl, acetate) 200 UNIT capsule 200 unit PO DAILY albuterol sulfate 1 INHALER inhaler 2 puff Inhalation Q4H PRN PRN (Reason: Wheezing) Qty: 1 0RF insulin degludec [Tresiba U-100 Insulin] 100 unit/mL solution 40 unit subcut DAILY Eliquis 2.5 mg tablet 2.5 mg PO BID dapagliflozin propanediol [Farxiga] 5 mg tablet 5 mg PO QHS ferrous sulfate 137 mg (45 mg iron) tablet extended release 137 mg PO DAILY atorvastatin 40 mg tablet 40 mg PO DAILY Jardiance 10 mg tablet 10 mg PO DAILY furosemide 40 mg tablet 40 mg PO BID sacubitril-valsartan [Entresto] 97-103 mg tablet 1 tab PO BID Primary Care Provider: Nithin Acevedo Referrals: Nithin Acevedo MD [Primary Care Provider] - Print Language: [place] Disposition Disposition: Acute Care Hospital [facility]
[2025-07-21 10:59] LABS: Hematocrit 29.3 % (40-54); Hemoglobin 8.7 g/dL (13.0-16.5); Immature Granulocytes Count 0.030 X10^3/uL (0.0-0.0); Mean Corp Hgb Conc 29.7 g/dL (32-36); Mean Corpuscular Volume 88.3 fL (80-94); Mean Platelet Vol. 12.2 fl (6.2-12.0); NRBC Flagged by Analyzer 0 % (0-5); Platelet Count 120 K/mm3 (150-450); RBC Distribution Width CV 15.0 % (11.6-14.6); RBC Distribution Width SD 48.8 fl (35.1-43.9); Red Blood Count 3.32 M/mm3 (4.6-6.2); White Blood Count 5.2 K/mm3 (4.4-11.0)
--- NOTE | 2025-07-21 11:10 | RAD_ITS ---
PROCEDURE: CHEST 1 VIEW (PORTABLE) 07/21/2025 REASON FOR EXAM: DYSPNEA TECHNIQUE: Frontal view of the chest. COMPARISON: Chest x-ray January 15, 2022. FINDINGS: Lungs: The lungs are symmetrically expanded. Lung volumes are at the lower end of normal. Patchy bilateral perihilar and basal ground-glass and airspace opacities noted. This could be seen with pulmonary edema, mild acute infiltrate/pneumonia or malignancy/metastatic disease. Clinical correlation is advised. Follow-up imaging in 2 weeks to confirm complete resolution is advised. If persistent or worsening, consider chest CT with contrast. There is no consolidation. Pleura: No significant pleural effusion seen. There is no evidence of pneumothorax. Mediastinum: There is no mediastinal widening or mediastinal shift. Heart: The cardiac silhouette is mildly enlarged. Vascular: Calcified aortic atherosclerosis. Chetna: The pulmonary chetna are not enlarged or retracted. Osseous: No acute fracture is seen. Median sternotomy changes are noted. RAD/Chest 1 View (Portable) IMPRESSION: Mild cardiac enlargement. - Perihilar and basal pulmonary opacities, differential and recommendations as di scussed above. Reading Location: [id number]
[2025-07-21 11:16] LABS: Prothrombin Time (Protime)PT. 16.8 SECONDS (11.7-14.9)
[2025-07-21 11:22] LABS: Pro- Brain NATRIURETIC PEPTIDE 3236 pg/mL (<=1800); Troponin T High Sensitivity 91 ng/L (<=22)
[2025-07-21 11:26] LABS: Anion Gap 14 (5-15); BUN 63 mg/dL (4-19); BUN/Creat Ratio 20.0 RATIO (10-20); Calcium,Total 10.7 mg/dL (7.6-11.0); Carbon Dioxide 22.6 mmol/L (21.0-32.0); Chloride 106 mmol/L (98-108); Estimated Creatinine Clearance 25.92 ml/min (50-250); Glucose 166 mg/dL (70-99); Potassium 4.6 mmol/L (3.3-5.1)
--- NOTE | 2025-07-21 11:58 | US_ITS ---
PROCEDURE: KIDNEY AND BLADDER 07/21/2025 REASON FOR EXAM: RENAL FAILURE TECHNIQUE: Procedure Code: USKI Modality: US Procedure: KIDNEY AND BLADDER FINDINGS: Right kidney measures 10.9 ??? 6.0 ??? 6.0 cm. Cortical thickness 1.2 cm. Normal cortical echogenicity. No calculi. No hydronephrosis. Left kidney measures 8.7 ??? 4.7 ??? 5.0 cm. Cortical thickness 1.3 cm. Normal cortical echogenicity. No calculi. No hydronephrosis. A 5.1 ??? 5.7 ??? 4.8 cm thinly septated cyst is present in the [id number] pole. Urinary bladder pre-void volume 716 mL. Wall thickness 3 mm. Ureteral jets visualized bilaterally. US/Kidney and Bladder IMPRESSION: Right kidney 10.9 cm, left kidney 8.7 cm. No hydronephrosis. 5.1 ??? 5.7 ??? 4.8 cm thinly septated cyst in the [id number] left kidney. Normal bladder with bilateral ureteral jets. Reading Location: [id number]
--- NOTE | 2025-07-21 11:59 | PCM.HP.STD ---
HPI - General General Date of Admission: 07/21/25 Date of Service: 07/21/25 Chief Complaint: Shortness of breath HPI Narrative FEDERICO SALAS, is a 89 M with past medical history second for paroxysmal atrial fibrillation, diabetes mellitus type 2, chronic kidney disease who presented to the emergency department with shortness of breath. Per patient symptoms have been ongoing for the past couple of weeks. He also did notice increasing weight gain as well as swelling involving both lower extremities. Patient also did admit to easy fatigability and inability to lay flat he therefore had to lay in his recliner. Elected to present to the emergency department due to worsening symptoms. Workup was consistent with acute congestive heart failure admitted to a monitored bed for further management COUNTS INCLUDE 234 BEDS AT THE [facility] Medical History Afib CAD (coronary artery disease) CHF (congestive heart failure) Diabetes Home Medications ?Medication ?Instructions ?Recorded ?Last Taken ?Type Lovastatin [Mevacor] 40 mg PO QHS CHOLESTEROL 07/02/16 07/11/16 History doxazosin 2 mg tablet 2 mg PO QHS PROSTATE 07/02/16 07/11/16 History multivitamin with folic acid 400 1 tab PO DAILY SUPPLEMENT 07/02/16 07/11/16 History mcg tablet (Thera) nitroglycerin 0.4 mg sublingual 0.4 mg sublingual PRN PRN CHEST 04/01/18 Unknown History tablet (Nitrostat) PAIN spironolactone 25 mg tablet 25 mg PO QHS BP 04/01/18 Unknown History albuterol sulfate 90 mcg/actuation 2 puff inhalation Q4H PRN PRN 01/07/19 Unknown Rx aerosol inhaler Wheezing ##1 vitamin E (dl, acetate) 90 mg (200 200 unit PO DAILY 01/07/19 Unknown History unit) capsule apixaban 2.5 mg tablet (Eliquis) 2.5 mg PO BID 03/27/24 Unknown History dapagliflozin propanediol 5 mg 5 mg PO QHS 03/27/24 Unknown History tablet (Farxiga) ferrous sulfate 137 mg (45 mg 137 mg PO DAILY 03/27/24 Unknown History iron) tablet,extended release insulin degludec 100 unit/mL 40 unit subcut DAILY 03/27/24 Unknown History subcutaneous solution (Tresiba U-100 Insulin) atorvastatin 40 mg tablet 40 mg PO DAILY 07/21/25 Unknown History empagliflozin 10 mg tablet 10 mg PO DAILY 07/21/25 Unknown History (Jardiance) furosemide 40 mg tablet 40 mg PO BID 07/21/25 Unknown History sacubitril 97 mg-valsartan 103 mg 1 tab PO BID 07/21/25 Unknown History tablet (Entresto) Allergy/AdvReac Type Severity Reaction Status Date / Time finasteride (From Proscar) Allergy Hives Verified 07/21/25 10:26 Social History (Updated 07/21/25 @ 10:37 by Irma Hensley) household members: family Smoking Status: Former smoker ROS ROS Narrative GENERAL: denies fever, chills, night sweats, weight loss, anorexia HEENT: denies headache, sinus congestion, or drainage, dysphagia RESPIRATORY: cough, shortness of breath, dyspnea on exertion CARDIAC: orthopnea, PND GASTROINTESTINAL: denies abdominal pain, nausea, GENITOURINARY: denies dysuria, urgency, frequency, EXTREMITY: denies swelling MUSCULOSKELETAL: denies current joint pain or tenderness NEUROLOGIC: denies focal numbness, weakness, tingling HEMATOLOGIC: denies easy bruising and/or hemorrhage INTEGUMENT: denies rashes PSYCHIATRIC: denies suicidal or homicidal ideation Vital Signs Vital Signs Vital Signs: 07/21/25 10:26 07/21/25 10:42 07/21/25 10:44 Temperature 97.8 F Temperature Source Oral Pulse Rate 76 Respiratory Rate 20 H Respiratory Effort Short of Breath Respiratory Depth Normal Respiratory Pattern Normal Blood Pressure 123/41 H Blood Pressure Mean 68 Pulse Ox 96 95 Oxygen Delivery Method Room Air Room Air Room Air 07/21/25 11:30 07/21/25 11:45 07/21/25 11:57 Temperature 97.9 F Temperature Source Pulse Rate 64 58 L 58 L Respiratory Rate 18 17 17 Respiratory Effort Respiratory Depth Respiratory Pattern Blood Pressure 103/69 99/51 L 99/51 L Blood Pressure Mean 80 62 67 Pulse Ox 92 95 95 Oxygen Delivery Method Weight Weight: 167 kg Body Mass Index (BMI) 51.3 Physical Exam Narrative GENERAL: cooperative HEENT: Atraumatic; normocephalic EYES; Anicteric, Normal Conjunctiva NECK; supple, normal thyroid, RESPIRATORY: Diminished to auscultation CARDIOVASCULAR: Irregular S1-S2 GI: soft, normoactive bowel sounds, : No Renal angle tenderness; EXTREMITIES: 2+ pitting edema MUSCULOSKELETAL: no muscle wasting NEURO: Awake; no lateralizing signs. SKIN: Bilateral lower extremity stasis dermatitis PSYCH; Flat affect Results Lab / Micro Data 07/21/25 10:47 07/21/25 10:47 Labs: Laboratory Results - last 24 hr 07/21/25 10:47: WBC 5.2, RBC 3.32 L, Hgb 8.7 L, Hct 29.3 L, MCV 88.3, MCH 26.2 L, MCHC 29.7 L, RDW Std Deviation 48.8 H, RDW Coeff of Jazmin 15.0 H, Plt Count 120 L, MPV 12.2 H, Immature Gran % (Auto) 0.600, Neut % (Auto) 74.0 H, Lymph % (Auto) 12.7 L, [place] % (Auto) 9.0, Eos % (Auto) 2.9, Baso % (Auto) 0.8, Absolute Neuts (auto) 3.9, Absolute Lymphs (auto) 0.66 L, Nucleated RBC % 0, PT 16.8 H, INR 1.3, Sodium 142, Potassium 4.6, Chloride 106, Carbon Dioxide 22.6, Anion Gap 14, BUN 63 H, Creatinine 3.12 H, Estim Creat Clear Calc 25.92 L, Est GFR (MDRD) Non-Af 18 L, BUN/Creatinine Ratio 20.0, Glucose 166 H, Calcium 10.7, Troponin T High Sens 91 H*, NT pro BNP II 3236 H Imaging Radiology Impression Chest X-Ray 07/21/25 11:10 IMPRESSION: Mild cardiac enlargement. - Perihilar and basal pulmonary opacities, differential and recommendations as discussed above. Reading Location: [facility] Assessment & Plan Assessment/Plan (1) CKD (chronic kidney disease): (2) Anemia: (3) CHF (congestive heart failure): PLAN: Patient is an 89-year-old gentleman who presented with progressive shortness of breath 1. Acute congestive heart failure (unspecified) ? Patient has been admitted to a monitored bed as part of his evaluation ordered 2D echo serial cardiac enzymes as well as TSH. Patient was also placed on fluid restriction strict input and output Daily weight low-sodium diet as well as diuretic therapy with furosemide. Also placed on supplemental oxygen titrated to keep saturation greater than 90 2. Chronic kidney disease ?Stage IV ? Current baseline creatinine unknown patient last creatinine on the EMR was 2.02 creatinine on admission was 3.12. Ordered renal duplex for further eval. Consult placed to nephrology 3. Anemia ? Secondary to chronic disorder, ordered iron studies and subsequent monitoring H&H and transfuse if patient becomes symptomatic or hemoglobin falls below 7 4. Diabetes mellitus type 2 ? Patient is on long-acting insulin at home. Patient has been experiencing hypoglycemic episodes held the long-acting insulin placed on Accu-Cheks ACHS with sliding scale coverage 4. Paroxysmal A-fib/flutter ? Rate controlled on systemic anticoagulation with apixaban did continue 5. Class III obesity with a BMI of 51.3 ? Complicating care weight loss advised 6. Dyslipidemia ?Patient is on statin therapy, continued at home dose 7. Thrombocytopenia ? Patient has some chronicity to his low platelet count will monitor with daily CBC with differential 8. DVT prophylaxis ? Already anticoagulated with apixaban will continue Time spent in the patient's overall evaluation,decision-making process, review of diagnostic data, adjustment of management, discussion with other providers, nursing nursing and ancillary staff involved in patient's care documentation, 75 Minutes Advance planning; did discuss with the patient regarding advanced directives as well as CODE STATUS. Did explain the various scenarios involved ( FULL CODE, DNR CCA, DNR CCA with no intubation, and DNR CC and what each meant) patient elected to be DNR CCA no intubation. Order was placed. Time spent on discussion 16 minutes. Charges/Coding Multi Select Codes Visit Charges Visit Charges: 66488 Init Hosp L3 Hospitalists' Procedures Procedures: 26119 Advncd Care Plan 30 Min
--- NOTE | 2025-07-21 12:48 | ECHOD_ITS ---
Reason For Study Reason For Study: CHF Procedure This was a 2D Doppler, Color Flow transthoracic echocardiogram. The study was technically difficult. D/T body habitus & suboptimal apical imaging windows. Contrast injection was performed. The patient was scanned supine. Exam performed portable in patient room. Left Ventricle Normal LV size. The estimated ejection fraction is 65 %. Unable to assess diastolic dysfunction. No regional wall motion abnormalities noted. Right Ventricle Normal RV size. Normal systolic function. Atria The left and right atria are normal. No doppler evidence for ASD. Mitral Valve There is no mitral valve stenosis. Trivial mitral valve insufficiency. Tricuspid Valve There is no tricuspid stenosis. Mild tricuspid valve insufficiency. Pulmonary artery systolic pressure is 40-45 mmHg. Aortic Valve Trisinus/trileaflet aortic valve. There is no aortic stenosis. No aortic valve insufficiency. Pulmonic Valve There is no pulmonic valvular stenosis. Trivial pulmonic valve insufficiency. Great Vessels Normal sized aortic root. Pericardium/Pleural No pericardial effusion. Medication Diluted definity 1.5ml given slow IV push to enhance endocardial definition. MMode/2D Measurements & Calculations LVIDd: 5.5 cm IVSd: 0.96 cm Ao root diam: 3.6 cm LVIDs: 3.3 cm LVPWd: 0.96 cm RVDd: 3.7 cm FS: 40.4 % LAV(MOD-bp): 78.3 ml LVAd ap4: 32.8 cm2 SV(MOD-sp4): 73.8 ml LAV(MOD-bp) Indexed: 28.1 ml/m2 LVLd ap4: 8.2 cm SI(MOD-sp4): 26.5 ml/m2 LAV(MOD-sp2): 75.8 ml EDV(MOD-sp4): 108.0 ml LAV(MOD-sp4): 74.0 ml EDV(sp4-el): 111.9 ml LVAs ap4: 15.5 cm2 LVLs ap4: 6.1 cm ESV(MOD-sp4): 34.2 ml ESV(sp4-el): 33.5 ml EF(MOD-sp4): 68.4 % EF(sp4-el): 70.1 % SV(sp4-el): 78.4 ml LA A4 area: 23.6 cm2 LA dimension(2D): 4.9 cm RA A4 area: 21.0 cm2 TAPSE: 1.7 cm Doppler Measurements & Calculations MV E max forrest: 124.4 cm/sec Ao V2 max: 164.1 cm/sec LV V1 max: 92.6 cm/sec Ao max P.8 mmHg LV V1 max P.4 mmHg Ao V2 mean: 107.7 cm/sec LV V1 mean P.6 mmHg Ao mean P.3 mmHg LV V1 mean: 59.8 cm/sec Ao V2 VTI: 36.5 cm LV V1 VTI: 20.5 cm AV (velocity ratio): 0.56 PA V2 max: 121.8 cm/sec TR max forrest: 293.2 cm/sec PA V2 mean: 86.6 cm/sec PI dec slope: 165.2 cm/sec2 TR max P.4 mmHg ECHO/Echo Complete W/ Contrast Interpretation Summary The estimated ejection fraction is 65 %. Unable to assess diastolic dysfunction. Trivial mitral valve insufficiency. Ordering Physician: Nathaniel Beverly Referring Physician: Nithin Acevedo Performed By: Tracie Resterpo, WESLEY, RVT
[2025-07-21 13:36] LABS: Immature Reticulocyte Fraction 12.80 % (3.00-15.90); Platelet Count 119 K/mm3 (150-450); Reticulocyte Count 1.08 % (0.5-1.5)
[2025-07-21 14:08] LABS: Troponin T High Sens 2 HR 87 ng/L (<=22)
[2025-07-21 14:24] LABS: Iron 24 ug/dL (65-175); Iron Binding Capacity,Total 281 ug/dL (250-450); Iron Binding Capacity,Unsat 257 ug/dL (228-428); Vitamin B12 471 pg/mL (180-914)
[2025-07-21 15:16] LABS: Troponin T High Sens 4 HR 87 ng/L (<=22)
--- NOTE | 2025-07-21 15:53 | CHAPLAIN ---
Type of Pastoral Visit _x__ Initial Visit ___ Follow-up Visit ___ On-call Visit ___ General Patient Visit ___ Spiritual Assessment ___ Family Conference ___ Bereavement ___ Rapid Response ___ Code Blue ___ Other (describe below) Pastoral Care Referral From _x__ Patient ___ Family ___ Nurse ___ Physician ___ Risk Engineer ___ Retread Operator ___ Other (describe below) Sacrament/Intervention _x__ Active listening ___ Anointing ___ Restorationism ___ Bereavement ___ Communion _x__ Octavia exploration ___ _x__ Life review _x__ Prayer ___ Reconciliation ___ Sacrament of Sick _x__ Supportive presence ___ Wedding ___ Other (describe below) Pastoral Comments patient had just got settled into his room and RN was finished with the process of admission; pt is welcoming and talkative; pt is open to talk about his octavia and his life; pt admits that he and his have had their health difficulties in recent months; pt has good support from family and oriental orthodox; pt is welcoming of prayer and visits
[2025-07-21] MEDS: APIXABAN 2.5 MG TABLET (WCH) PO (21:22)
[2025-07-21] MEDS: 0.9% Saline Lock 10 ML Syringe IV (21:23)
[2025-07-22 02:15] VITALS: BP 117/42; PULSE 66; RESP 17; TEMP 36.7; O2SAT 94
[2025-07-22 03:00] VITALS: PULSE 66
[2025-07-22] MEDS: 0.9% Saline Lock 10 ML Syringe IV ×5 (05:33→21:43)
[2025-07-22 05:44] LABS: Hematocrit 26.9 % (40-54); Hemoglobin 8.1 g/dL (13.0-16.5); Immature Granulocytes Count 0.010 X10^3/uL (0.0-0.0); Mean Corp Hgb Conc 30.1 g/dL (32-36); Mean Corpuscular Volume 86.8 fL (80-94); Mean Platelet Vol. 12.5 fl (6.2-12.0); NRBC Flagged by Analyzer 0 % (0-5); Platelet Count 114 K/mm3 (150-450); RBC Distribution Width CV 15.1 % (11.6-14.6); RBC Distribution Width SD 48.2 fl (35.1-43.9); Red Blood Count 3.10 M/mm3 (4.6-6.2); White Blood Count 5.6 K/mm3 (4.4-11.0)
[2025-07-22 06:35] LABS: Anion Gap 11 (5-15); BUN 64 mg/dL (4-19); BUN/Creat Ratio 19.4 RATIO (10-20); Calcium,Total 10.5 mg/dL (7.6-11.0); Carbon Dioxide 25.4 mmol/L (21.0-32.0); Chloride 106 mmol/L (98-108); Cholesterol 67 mg/dL (<=200); Estimated Creatinine Clearance 25.12 ml/min (50-250); Glucose 147 mg/dL (70-99); Low Density Lipoprotein Calc. 14 mg/dL; Magnesium 2.6 mg/dL (1.5-2.2); Potassium 4.6 mmol/L (3.3-5.1); Triglycerides 60 mg/dL; Very Low Density Lipoprotein 12 mg/dL (5-40); cholesterol:hdl ratio screen 1.63
[2025-07-22 08:15] VITALS: BP 122/52; PULSE 58; RESP 16; TEMP 36.6; O2SAT 93
--- NOTE | 2025-07-22 08:38 | PN.HOSP_ITS ---
Reason for Visit Chief Complaint: Shortness of breath Subjective Subjective Patient is an 89-year-old gentleman who presented with progressive shortness of breath. An assessment of acute congestive heart failure made admitted to monitored bed for further management patient started on diuretic therapy. Objective Data Objective Data Vital Signs: Vital Signs Temp Pulse Resp BP Pulse Ox O2 Del Method 98.0 F 66 17 117/42 L 94 Room Air 07/22/25 02:15 07/22/25 03:00 07/22/25 02:15 07/22/25 02:15 07/22/25 02:15 07/22/25 03:05 Oxygen Delivery Method Room Air Weight: 166.196 kg Body Mass Index (BMI) 48.3 Intake & Output: Intake and Output for Last 24 Hours 07/20/25 07/21/25 07/22/25 23:59 23:59 23:59 Intake Total 700 / 700 Output Total 1600 / 1600 200 / 200 Balance -900 / -900 -200 / -200 Lab / Micro Data 07/22/25 05:22 07/22/25 05:22 Labs: Laboratory Results - last 24 hr 07/21/25 10:47: WBC 5.2, RBC 3.32 L, Hgb 8.7 L, Hct 29.3 L, MCV 88.3, MCH 26.2 L , MCHC 29.7 L, RDW Std Deviation 48.8 H, RDW Coeff of Jazmin 15.0 H, Plt Count 120 L, MPV 12.2 H, Immature Gran % (Auto) 0.600, Neut % (Auto) 74.0 H, Lymph % (Auto) 12.7 L, [place] % (Auto) 9.0, Eos % (Auto) 2.9, Baso % (Auto) 0.8, Absolute Neuts (auto) 3.9, Absolute Lymphs (auto) 0.66 L, Nucleated RBC % 0, PT 16.8 H, INR 1.3, Sodium 142, Potassium 4.6, Chloride 106, Carbon Dioxide 22.6, Anion Gap 14, BUN 63 H, Creatinine 3.12 H, Estim Creat Clear Calc 25.92 L, Est GFR (MDRD) Non-Af 18 L, BUN/Creatinine Ratio 20.0, Glucose 166 H, Calcium 10.7, Troponin T High Sens 91 H*, NT pro BNP II 3236 H 07/21/25 12:50: Retic Count 1.08, Immature Retic Fraction 12.80, Retic Hgb Equivalent 25.9 L, Iron 24 L, TIBC 281, Iron Saturation 9.0, Unsaturated IBC 257, Troponin T Hi Sens 2 Hr 87 H*, Vitamin B12 471 07/21/25 14:49: Troponin T Hi Sens 4Hr 87 H* 07/21/25 17:09: POC Glucose 144 H 07/21/25 21:26: POC Glucose 170 H 07/22/25 05:22: WBC 5.6, RBC 3.10 L, Hgb 8.1 L, Hct 26.9 L, MCV 86.8, MCH 26.1 L , MCHC 30.1 L, RDW Std Deviation 48.2 H, RDW Coeff of Jazmin 15.1 H, Plt Count 114 L, MPV 12.5 H, Immature Gran % (Auto) 0.200, Neut % (Auto) 70.2 H, Lymph % (Auto) 13.2 L, [place] % (Auto) 12.3 H, Eos % (Auto) 3.4, Baso % (Auto) 0.7, Absolute Neuts (auto) 4.0, Absolute Lymphs (auto) 0.74 L, Nucleated RBC % 0, Sodium 142, Potassium 4.6, Chloride 106, Carbon Dioxide 25.4, Anion Gap 11, BUN 64 H, Creatinine 3.29 H, Estim Creat Clear Calc 25.12 L, Est GFR (MDRD) Non-Af 17 L, BUN/Creatinine Ratio 19.4, Glucose 147 H, Hemoglobin A1c 6.3 H, Calcium 10.5, Phosphorus 4.3, Magnesium 2.6 H, Triglycerides 60, Cholesterol 67, LDL Cholesterol, Calc 14, VLDL Cholesterol 12, HDL Cholesterol 41, Cholesterol/HDL Ratio 1.63, TSH 3.940 07/22/25 07:03: POC Glucose 140 H Radiography Diagnostic Testing: Radiology Impression Chest X-Ray 07/21/25 11:10 IMPRESSION: Mild cardiac enlargement. - Perihilar and basal pulmonary opacities, differential and recommendations as discussed above. Reading Location: [id number] Renal Ultrasound 07/21/25 11:58 IMPRESSION: Right kidney 10.9 cm, left kidney 8.7 cm. No hydronephrosis. 5.1 ??? 5.7 ??? 4.8 cm thinly septated cyst in the [id number] left kidney. Normal bladder with bilateral ureteral jets. Reading Location: [address] Physical Exam Narrative GENERAL: cooperative HEENT: Atraumatic; normocephalic EYES; Anicteric, Normal Conjunctiva NECK; supple, normal thyroid, RESPIRATORY: Diminished to auscultation CARDIOVASCULAR: Irregular S1-S2 GI: soft, normoactive bowel sounds, : No Renal angle tenderness; EXTREMITIES: 2+ pitting edema MUSCULOSKELETAL: no muscle wasting NEURO: Awake; no lateralizing signs. SKIN: Bilateral lower extremity stasis dermatitis PSYCH; Flat affect Assessment & Plan Assessment/Plan (1) CKD (chronic kidney disease): (2) Anemia: (3) CHF (congestive heart failure): PLAN: Patient is an 89-year-old gentleman who presented with progressive shortness of breath 1. Acute congestive heart failure (unspecified) ? Patient has been admitted to a monitored bed as part of his evaluation ordered 2D echo serial cardiac enzymes as well as TSH. Patient was also placed on fluid restriction strict input and output Daily weight low-sodium diet as well as diuretic therapy with furosemide. Also placed on supplemental oxygen titrated to keep saturation greater than 90 ? 07/22/2025; patient admitted to improvement in his symptoms. Will continue with current diuretic therapy. Will follow-up on 2D echo result 2. Chronic kidney disease ?Stage IV ? Current baseline creatinine unknown patient last creatinine on the EMR was 2.02 creatinine on admission was 3.12. Ordered renal duplex for further eval. Consult placed to nephrology 3. Anemia ? Secondary to chronic disorder, ordered iron studies and subsequent monitoring H&H and transfuse if patient becomes symptomatic or hemoglobin falls below 7 4. Diabetes mellitus type 2 ? Patient is on long-acting insulin at home. Patient has been experiencing hypoglycemic episodes held the long-acting insulin placed on Accu-Cheks ACHS with sliding scale coverage 4. Paroxysmal A-fib/flutter ? Rate controlled on systemic anticoagulation with apixaban did continue 5. Class III obesity with a BMI of 51.3 ? Complicating care weight loss advised 6. Dyslipidemia ?Patient is on statin therapy, continued at home dose 7. Thrombocytopenia ? Patient has some chronicity to his low platelet count will monitor with daily CBC with differential 8. DVT prophylaxis ? Already anticoagulated with apixaban will continue 9. Hypermagnesemia ? Patient home meds reviewed not on any magnesium supplement will repeat levels in a.m. Time spent in the patient's overall evaluation,decision-making process, review of diagnostic data, adjustment of management, discussion with other providers, nursing nursing and ancillary staff involved in patient's care documentation, 50 Minutes Charges/Coding Visit Charges Inpatient E&M: 82096 Subs Hosp L3
[2025-07-22] MEDS: APIXABAN 2.5 MG TABLET (WCH) PO ×2 (08:55→21:26)
--- NOTE | 2025-07-22 12:12 | CASEMGMT ---
Addendum entered by Mayank Asif 07/22/25 12:49: [facility] returns call and states that they are able to accept the pt for SOC Friday. This bond writer updated the pt who states that he is agreeable and denies further questions or concerns at this time. Original Note: CEFREINO RODRIGUEZ Assessment Face to Face with patient for initial transition planning/care coordination assessment. CEFERINO RODRIGUEZ introduced self and role at [facility], pt voices understanding. Pt is A&Ox4 and is resting comfortably in bed and is calm. Care providers, pharmacy, and demographics verified. Admitting dx: CHF LACE Strata: 2 PCP: Nithin Acevedo Specialists: Bakery Worker Conveyor Line through [employer] (Pt unable to recall the name), Momo Lubin ([facility]), RACHNA Fortune (Pt unable to recall the name) Preferred Pharmacy: [facility] Insurance: [facility] Prescription Benefit: yes LNOK: Marija (W) Living Arrangements: Pt lives with his in a single story home with a ramp to enter ADLs/IADLs: Pt states that he is mainly indep. Pt states that his handles the pts meds and does the cooking. pt also states that he gets 4 home delivered meals/week through [employer] Transportation: Pt and pt's do not drive currently. Pt states that his ANH and GD are able to drive him and denies concerns DME: CPAP @ HS with no additional o2 supplied through [employer]. Pt may qualify for home oxygen use. A verbal list of local in-network DME companies were provided to the pt at this time. Pt prefers [employer]Pt states that he has a CBGM with plenty of sensors and a back up BGM with sufficient supplies and pen needles. Pt reports that he has a scale for his CHF. FWW x2. Cane. Walk in shower with shower chair and grab bars. Lift chair. BP Machine. Pulse ox. HHC/SNF: [facility]x @ [facility]. Denies HHC but would like this for SN, PT, and OT. Pt states that his is currently active with [facility] and that he would prefer [facility] and denies wanting to review a list of other options at this time. Current 6-Click score is 12. PT is pending. Pt educated on home bound status and states that he believes he should qualify in his current condition. TC to [facility] HH. No answer. VM left with referral. Pt?s goal: Home with HHC Plan: Anticipate home with skilled HHC once medically ready. Follow for oxygen needs and PT eval. At this time, the pt states that he feels safe returning home with his and denies the need for SNF. This bond writer also noted that the pt is on home Eliquis. Pt states that he can afford and denies concerns. Pt denies further questions or concerns at this time. CM to follow. Vishal Asif RN CM
--- NOTE | 2025-07-22 13:56 | CASEMGMT ---
RN CM notified that [facility]HC has accepted patient. Green sheet placed on chart for HHC and possible home oxygen at discharge.
[2025-07-22 14:28] VITALS: BP 117/35; PULSE 70; RESP 16; TEMP 36.4; O2SAT 93
[2025-07-22 15:19] VITALS: BP 117/59
[2025-07-22 21:06] VITALS: BP 120/52; PULSE 69; RESP 18; TEMP 36.1; O2SAT 95
--- NOTE | 2025-07-22 22:35 | NURSING ---
ambulated pt in condon for about 50 feet total per pt request, pt tolerated well. Pt back in bed, denies any other needs at this time.
[2025-07-23 04:13] VITALS: BP 116/44; PULSE 61; RESP 18; TEMP 36.7; O2SAT 93
[2025-07-23 04:45] LABS: Hematocrit 26.5 % (40-54); Hemoglobin 8.0 g/dL (13.0-16.5); Immature Granulocytes Count 0.010 X10^3/uL (0.0-0.0); Mean Corp Hgb Conc 30.2 g/dL (32-36); Mean Corpuscular Volume 87.2 fL (80-94); Mean Platelet Vol. 12.4 fl (6.2-12.0); NRBC Flagged by Analyzer 0 % (0-5); Platelet Count 110 K/mm3 (150-450); RBC Distribution Width CV 14.8 % (11.6-14.6); RBC Distribution Width SD 47.6 fl (35.1-43.9); Red Blood Count 3.04 M/mm3 (4.6-6.2); White Blood Count 5.4 K/mm3 (4.4-11.0)
[2025-07-23 05:09] LABS: Anion Gap 11 (5-15); BUN 64 mg/dL (4-19); BUN/Creat Ratio 19.2 RATIO (10-20); Calcium,Total 10.6 mg/dL (7.6-11.0); Carbon Dioxide 25.8 mmol/L (21.0-32.0); Chloride 106 mmol/L (98-108); Estimated Creatinine Clearance 24.74 ml/min (50-250); Glucose 150 mg/dL (70-99); Potassium 4.4 mmol/L (3.3-5.1)
[2025-07-23] MEDS: 0.9% Saline Lock 10 ML Syringe IV (05:15)
--- NOTE | 2025-07-23 07:46 | PN.HOSP_ITS ---
Reason for Visit Chief Complaint: Shortness of breath Subjective Subjective Patient seen symptoms continue to improve. Patient continues to diurese well. Had a discussion with patient regarding ongoing plans. Patient requesting to be discharged Objective Data Objective Data Vital Signs: Vital Signs Temp Pulse Resp BP Pulse Ox O2 Del Method 98.0 F 61 18 116/44 L 93 Room Air 07/23/25 04:13 07/23/25 04:13 07/23/25 04:13 07/23/25 04:13 07/23/25 04:13 07/23/25 04:34 Oxygen Delivery Method Room Air Weight: 166.196 kg Body Mass Index (BMI) 48.3 Intake & Output: Intake and Output for Last 24 Hours 07/21/25 07/22/25 07/23/25 23:59 23:59 23:59 Intake Total 700 / 700 450 / 450 Output Total 1600 / 1600 1350 / 2050 1025 / 1025 Balance -900 / -900 -900 / -1600 -1025 / -1025 Lab / Micro Data 07/23/25 04:21 07/23/25 04:21 Labs: Laboratory Results - last 24 hr 07/22/25 11:18: POC Glucose 134 H 07/22/25 16:16: POC Glucose 147 H 07/22/25 21:19: POC Glucose 150 H 07/23/25 04:21: WBC 5.4, RBC 3.04 L, Hgb 8.0 L, Hct 26.5 L, MCV 87.2, MCH 26.3 L , MCHC 30.2 L, RDW Std Deviation 47.6 H, RDW Coeff of Jazmin 14.8 H, Plt Count 110 L, MPV 12.4 H, Immature Gran % (Auto) 0.200, Neut % (Auto) 72.8 H, Lymph % (Auto) 12.7 L, [place] % (Auto) 11.2 H, Eos % (Auto) 2.4, Baso % (Auto) 0.7, Absolute Neuts (auto) 3.9, Absolute Lymphs (auto) 0.68 L, Nucleated RBC % 0, Sodium 143, Potassium 4.4, Chloride 106, Carbon Dioxide 25.8, Anion Gap 11, BUN 64 H, Creatinine 3.34 H, Estim Creat Clear Calc 24.74 L, Est GFR (MDRD) Non-Af 17 L, BUN/Creatinine Ratio 19.2, Glucose 150 H, Calcium 10.6 07/23/25 06:08: POC Glucose 126 H Radiography Diagnostic Testing: Radiology Impression Echocardiogram 07/21/25 12:48 Interpretation Summary The estimated ejection fraction is 65 %. Unable to assess diastolic dysfunction. Trivial mitral valve insufficiency. Ordering Physician: Nathaniel Beverly Referring Physician: Nithin Acevedo Performed By: Tracie Restrepo RDCS, RVT Physical Exam Narrative GENERAL: cooperative HEENT: Atraumatic; normocephalic EYES; Anicteric, Normal Conjunctiva NECK; supple, normal thyroid, RESPIRATORY: Diminished to auscultation CARDIOVASCULAR: Irregular S1-S2 GI: soft, normoactive bowel sounds, : No Renal angle tenderness; EXTREMITIES: 2+ pitting edema MUSCULOSKELETAL: no muscle wasting NEURO: Awake; no lateralizing signs. SKIN: Bilateral lower extremity stasis dermatitis PSYCH; Flat affect Assessment & Plan Assessment/Plan (1) CKD (chronic kidney disease): (2) Anemia: (3) CHF (congestive heart failure): PLAN: Patient is an 89-year-old gentleman who presented with progressive shortness of breath 1. Acute congestive heart failure (unspecified) ? Patient has been admitted to a monitored bed as part of his evaluation ordered 2D echo serial cardiac enzymes as well as TSH. Patient was also placed on fluid restriction strict input and output Daily weight low-sodium diet as well as diuretic therapy with furosemide. Also placed on supplemental oxygen titrated to keep saturation greater than 90 ? 07/22/2025; patient admitted to improvement in his symptoms. Will continue with current diuretic therapy. Will follow-up on 2D echo result ? 07/23/2025; patient 2D echo demonstrated EF of 65% 2. Chronic kidney disease ?Stage IV ? Current baseline creatinine unknown patient last creatinine on the EMR was 2.02 creatinine on admission was 3.12. Ordered renal duplex for further eval. Consult placed to nephrology 3. Anemia ? Secondary to chronic disorder, ordered iron studies and subsequent monitoring H&H and transfuse if patient becomes symptomatic or hemoglobin falls below 7 4. Diabetes mellitus type 2 ? Patient is on long-acting insulin at home. Patient has been experiencing hypoglycemic episodes held the long-acting insulin placed on Accu-Cheks ACHS with sliding scale coverage 4. Paroxysmal A-fib/flutter ? Rate controlled on systemic anticoagulation with apixaban did continue 5. Class III obesity with a BMI of 51.3 ? Complicating care weight loss advised 6. Dyslipidemia ?Patient is on statin therapy, continued at home dose 7. Thrombocytopenia ? Patient has some chronicity to his low platelet count will monitor with daily CBC with differential 8. DVT prophylaxis ? Already anticoagulated with apixaban will continue 9. Hypermagnesemia ? Patient home meds reviewed not on any magnesium supplement will repeat levels in a.m. Time spent in the patient's overall evaluation,decision-making process, review of diagnostic data, adjustment of management, discussion with other providers, nursing nursing and ancillary staff involved in patient's care documentation, 38 Minutes Charges/Coding Visit Charges Inpatient E&M: 01825 Subs Hosp L2
[2025-07-23 08:48] VITALS: BP 140/67; PULSE 94; RESP 20; TEMP 37; O2SAT 92
[2025-07-23] MEDS: APIXABAN 2.5 MG TABLET (WCH) PO (09:19)
--- NOTE | 2025-07-23 10:57 | PCM.DC.SUM ---
Providers Date of Admission: 07/21/25 Date of Discharge: 07/23/25 Primary Care Physician: Dr. Nithin Acevedo MD Reason For Visit: CHF Diagnosis Discharge Diagnosis (1) CKD (chronic kidney disease): Status: Chronic Code(s): N18.9 - Chronic kidney disease, unspecified (2) Anemia: Status: Acute Code(s): D64.9 - Anemia, unspecified (3) CHF (congestive heart failure): Status: Acute Code(s): I50.9 - Heart failure, unspecified Plan: Patient is an 89-year-old gentleman who presented with progressive shortness of breath 1. Acute congestive heart failure (unspecified) ? Patient has been admitted to a monitored bed as part of his evaluation ordered 2D echo serial cardiac enzymes as well as TSH. Patient was also placed on fluid restriction strict input and output Daily weight low-sodium diet as well as diuretic therapy with furosemide. Also placed on supplemental oxygen titrated to keep saturation greater than 90 ? 07/22/2025; patient admitted to improvement in his symptoms. Will continue with current diuretic therapy. Will follow-up on 2D echo result ? 07/23/2025; patient 2D echo demonstrated EF of 65% 2. Chronic kidney disease ?Stage IV ? Current baseline creatinine unknown patient last creatinine on the EMR was 2.02 creatinine on admission was 3.12. Ordered renal duplex for further eval. Consult placed to nephrology 3. Anemia ? Secondary to chronic disorder, ordered iron studies and subsequent monitoring H&H and transfuse if patient becomes symptomatic or hemoglobin falls below 7 4. Diabetes mellitus type 2 ? Patient is on long-acting insulin at home. Patient has been experiencing hypoglycemic episodes held the long-acting insulin placed on Accu-Cheks ACHS with sliding scale coverage 4. Paroxysmal A-fib/flutter ? Rate controlled on systemic anticoagulation with apixaban did continue 5. Class III obesity with a BMI of 51.3 ? Complicating care weight loss advised 6. Dyslipidemia ?Patient is on statin therapy, continued at home dose 7. Thrombocytopenia ? Patient has some chronicity to his low platelet count will monitor with daily CBC with differential 8. DVT prophylaxis ? Already anticoagulated with apixaban will continue 9. Hypermagnesemia ? Patient home meds reviewed not on any magnesium supplement will repeat levels in a.m. Time spent in the patient's overall evaluation,decision-making process, review of diagnostic data, adjustment of management, discussion with other providers, nursing nursing and ancillary staff involved in patient's care documentation, 38 Minutes Medications at Discharge Home Medications doxazosin 2 mg tablet 2 mg PO QHS PROSTATE 07/02/16 multivitamin with folic acid 400 mcg tablet (Thera) 1 tab PO DAILY SUPPLEMENT 07/02/16 nitroglycerin 0.4 mg sublingual tablet (Nitrostat) 0.4 mg sublingual PRN PRN CHEST PAIN 04/01/18 apixaban 2.5 mg tablet (Eliquis) 2.5 mg PO BID blood thinner 03/27/24 insulin degludec 100 unit/mL subcutaneous solution (Tresiba U-100 Insulin) 40 unit subcut DAILY blood sugar 03/27/24 atorvastatin 40 mg tablet 40 mg PO DAILY cholesterol 07/21/25 empagliflozin 10 mg tablet (Jardiance) 10 mg PO DAILY 07/21/25 sacubitril 97 mg-valsartan 103 mg tablet (Entresto) 1 tab PO BID heart 07/21/25 furosemide 40 mg tablet 40 mg PO BID fluid #180 tabs 07/23/25 Physical Exam Narrative GENERAL: cooperative HEENT: Atraumatic; normocephalic EYES; Anicteric, Normal Conjunctiva NECK; supple, normal thyroid, RESPIRATORY: Diminished to auscultation CARDIOVASCULAR: Irregular S1-S2 GI: soft, normoactive bowel sounds, : No Renal angle tenderness; EXTREMITIES: 2+ pitting edema MUSCULOSKELETAL: no muscle wasting NEURO: Awake; no lateralizing signs. SKIN: Bilateral lower extremity stasis dermatitis PSYCH; Flat affect Weight / BMI Weight Weight: 166.196 kg Body Mass Index (BMI) 48.3 ABG / Lab / Microbiology Data 07/23/25 04:21 07/23/25 04:21 Laboratory: Laboratory Results - last 24 hr 07/22/25 11:18: POC Glucose 134 H 07/22/25 16:16: POC Glucose 147 H 07/22/25 21:19: POC Glucose 150 H 07/23/25 04:21: WBC 5.4, RBC 3.04 L, Hgb 8.0 L, Hct 26.5 L, MCV 87.2, MCH 26.3 L, MCHC 30.2 L, RDW Std Deviation 47.6 H, RDW Coeff of Jazmin 14.8 H, Plt Count 110 L, MPV 12.4 H, Immature Gran % (Auto) 0.200, Neut % (Auto) 72.8 H, Lymph % (Auto) 12.7 L, [place] % (Auto) 11.2 H, Eos % (Auto) 2.4, Baso % (Auto) 0.7, Absolute Neuts (auto) 3.9, Absolute Lymphs (auto) 0.68 L, Nucleated RBC % 0, Sodium 143, Potassium 4.4, Chloride 106, Carbon Dioxide 25.8, Anion Gap 11, BUN 64 H, Creatinine 3.34 H, Estim Creat Clear Calc 24.74 L, Est GFR (MDRD) Non-Af 17 L, BUN/Creatinine Ratio 19.2, Glucose 150 H, Calcium 10.6 07/23/25 06:08: POC Glucose 126 H Radiography Diagnostic Testing: Radiology Impression Echocardiogram 07/21/25 12:48 Interpretation Summary The estimated ejection fraction is 65 %. Unable to assess diastolic dysfunction. Trivial mitral valve insufficiency. Ordering Physician: Nathaniel Beverly Referring Physician: Nithin Acevedo Performed By: Tracie Restrepo, [place], RVT D/C Instructions Discharge Activity: Return to Normal Activity Call your doctor if you observe: Fever of 101 or Higher, Shortness of breath, Fainting spells and Chest pain DC O2, CPAP, BIPAP Needs Home O2 Discharge instructions: No Meaningful Use Info Meaningful Use Meaningful Use Diagnoses (Choose all that apply): CHF CHF BRIAN/ARB ordered at discharge?: Yes Documented LVEF (%): 65 Discharge Plan Admission Admit Date/Time: 07/21/25 11:45 Attending Provider: Nathaniel Beverly Primary Care Provider: Nithin Acevedo Discharge Orders/Prescriptions Prescriptions: Continued doxazosin 2 MG tablet 2 mg PO QHS Patient Comments: PROSTATE multivitamin with folic acid [Thera] 1 TABLET tablet 1 tab PO DAILY Patient Comments: SUPPLEMENT nitroglycerin [Nitrostat] 0.4 MG tablet, sublingual 0.4 mg sublingual PRN PRN (Reason: CHEST PAIN) insulin degludec [Tresiba U-100 Insulin] 100 unit/mL solution 40 unit subcut DAILY Eliquis 2.5 mg tablet 2.5 mg PO BID atorvastatin 40 mg tablet 40 mg PO DAILY Jardiance 10 mg tablet 10 mg PO DAILY sacubitril-valsartan [Entresto] 97-103 mg tablet 1 tab PO BID furosemide 40 mg tablet 40 mg PO BID Qty: 180 0RF Rx Instructions: 80 mg in the morning and 40 mg in the evening Referrals / Follow Up: Nithin Acevedo MD [Primary Care Provider] - In 1 Week (For repeat BMP as well as CBC with differential) Disposition Disposition (needs filled in before D/C Order can be placed): Home, Self Care Charges/Coding Visit Charges Inpatient E&M: 68053 Disch Hosp >30min
[2025-07-23 14:30] VITALS: O2SAT 90; O2SAT 95
[2025-07-23 14:41] VITALS: BP 140/54; PULSE 73; RESP 18; TEMP 36.9; O2SAT 93
== END 2025-07-23 15:18 | disposition home or self-care (01) | DRG 292 ==
LOC: ED 11:44 → PCU 12:04
PROVIDERS: Admitting Provider Internal Medicine; Emergency Provider Emergency Medicine; PCP Internal Medicine; Visit Provider Internal Medicine
DX: I50.9 Heart failure, unspecified (principal); N18.4 Chronic kidney disease, stage 4 (severe); I48.92 Unspecified atrial flutter; Z68.43 Body mass index [BMI] 50.0-59.9, adult; D69.6 Thrombocytopenia, unspecified; D63.8 Anemia in other chronic diseases classified elsewhere; E83.41 Hypermagnesemia; Z66 Do not resuscitate; Z79.01 Long term (current) use of anticoagulants; E11.22 Type 2 diabetes mellitus with diabetic chronic kidney disease; I48.0 Paroxysmal atrial fibrillation; I25.10 Atherosclerotic heart disease of native coronary artery without angina pectoris; Z79.4 Long term (current) use of insulin; I45.10 Unspecified right bundle-branch block; E78.5 Hyperlipidemia, unspecified; E66.813 Obesity, class 3; Z79.84 Long term (current) use of oral hypoglycemic drugs; Z79.899 Other long term (current) drug therapy; Z87.891 Personal history of nicotine dependence
CPT/HCPCS: 36415; 71045; 76770; 80048; 80061; 82607; 82962; 83036; 83540; 83550; 83735; 83880; 84100; 84443; 84484; 85025; 85045; 85610; 93005; 93306; 97162; 97166; 97802; 99285; Q9957; A4216; C8929; J1938

== ENCOUNTER → 2025-08-02 | Outpatient (CLI) | payer MEDICARE, SELFPAY ==
[2025-08-02 11:45] LABS: Hematocrit 28.9 % (40-54); Hemoglobin 8.4 g/dL (13.0-16.5); Mean Corp Hgb Conc 29.1 g/dL (32-36); Mean Corpuscular Volume 88.4 fL (80-94); Mean Platelet Vol. 13.3 fl (6.2-12.0); Platelet Count 128 K/mm3 (150-450); RBC Distribution Width CV 14.9 % (11.6-14.6); RBC Distribution Width SD 47.9 fl (35.1-43.9); Red Blood Count 3.27 M/mm3 (4.6-6.2); White Blood Count 5.2 K/mm3 (4.4-11.0)
[2025-08-02 12:53] LABS: Anion Gap 13 (5-15); BUN 63 mg/dL (4-19); BUN/Creat Ratio 20.1 RATIO (10-20); Calcium,Total 11.0 mg/dL (7.6-11.0); Carbon Dioxide 25.0 mmol/L (21.0-32.0); Chloride 105 mmol/L (98-108); Cholesterol 71 mg/dL (<=200); Glucose 161 mg/dL (70-99); Low Density Lipoprotein Calc. 19 mg/dL; Potassium 4.5 mmol/L (3.3-5.1); Triglycerides 71 mg/dL; Very Low Density Lipoprotein 14 mg/dL (5-40); cholesterol:hdl ratio screen 1.90
== END | disposition home or self-care (01) ==
PROVIDERS: PCP Internal Medicine; Referring Provider Internal Medicine; Visit Provider Internal Medicine
DX: E78.5 Hyperlipidemia, unspecified (principal); N18.4 Chronic kidney disease, stage 4 (severe); I50.22 Chronic systolic (congestive) heart failure; E11.22 Type 2 diabetes mellitus with diabetic chronic kidney disease; E11.49 Type 2 diabetes mellitus with other diabetic neurological complication; D63.1 Anemia in chronic kidney disease
CPT/HCPCS: 80048; 80061; 83036; 85027

== ENCOUNTER 2025-09-06 10:27 | Outpatient (RCR) | payer MEDICARE, SELFPAY ==
[2025-09-06 11:02] LABS: Hematocrit 28.2 % (40-54); Hemoglobin 8.3 g/dL (13.0-16.5); Mean Corp Hgb Conc 29.4 g/dL (32-36); Mean Corpuscular Volume 84.4 fL (80-94); Mean Platelet Vol. 13.4 fl (6.2-12.0); Platelet Count 135 K/mm3 (150-450); RBC Distribution Width CV 14.9 % (11.6-14.6); RBC Distribution Width SD 45.7 fl (35.1-43.9); Red Blood Count 3.34 M/mm3 (4.6-6.2); White Blood Count 5.9 K/mm3 (4.4-11.0)
[2025-09-06 13:10] LABS: Anion Gap 12 (5-15); BUN 75 mg/dL (4-19); BUN/Creat Ratio 23.7 RATIO (10-20); Calcium,Total 10.6 mg/dL (7.6-11.0); Carbon Dioxide 26.7 mmol/L (21.0-32.0); Chloride 105 mmol/L (98-108); Glucose 81 mg/dL (70-99); Potassium 4.8 mmol/L (3.3-5.1); Pro- Brain NATRIURETIC PEPTIDE 3183 pg/mL (<=1800)
== END 2025-09-06 18:00 | disposition home or self-care (01) ==
LOC: HHLAB 10:27
PROVIDERS: PCP Internal Medicine; Referring Provider Internal Medicine Cardiovascular Disease; Visit Provider Internal Medicine Cardiovascular Disease
DX: I13.0 Hypertensive heart and chronic kidney disease with heart failure and stage 1 through stage 4 chronic kidney disease, or unspecified chronic kidney disease (principal); I50.32 Chronic diastolic (congestive) heart failure; N18.4 Chronic kidney disease, stage 4 (severe); I87.2 Venous insufficiency (chronic) (peripheral)
CPT/HCPCS: 80048; 83880; 85027

== ENCOUNTER 2025-11-08 19:50 | Inpatient (IN) | payer MEDICARE, SELFPAY ==
[2025-11-08] VITALS (7 sets, daily range): BP systolic 98–121; BP diastolic 43–80; PULSE 46–61; RESP 16–22; TEMP 35–36.1; O2SAT 89–100; BMI 47.8; BMI 47.4
--- NOTE | 2025-11-08 20:08 | EKG12_ITS ---
Test Reason : DYSRHYTHMIA Blood Pressure : */* mmHG Vent. Rate : 57 BPM Atrial Rate : * BPM P-R Int : * ms QRS Dur : 148 ms QT Int : 502 ms P-R-T Axes : * 94 25 degrees QTcB Int : 488 ms Atrial fibrillation with slow ventricular response with premature ventricular or aberrantly conducted complexes Right bundle branch block Septal infarct , age undetermined Abnormal ECG Confirmed by Apolinar Weaver ([id number]), newspaper copy editor KEZIA BENAVIDES ([id number]) on 11/11/2025 8:15:33 AM Also confirmed by Apolinar Weaver ([id number]), newspaper copy editor KEZIA BENAVIDES ([id number]) on 11/11/2025 8:16:19 AM Referred By: EBTH Confirmed By: Apolinar Weaver
--- NOTE | 2025-11-08 20:09 | EX.ED.DYSGE1 ---
HPI History of Present Illness Chief Complaint: Chest Pain Detail of Chief Complaint: Shortness of breath and chest pain Informant: patient Narrative Narrative: Patient presents with shortness of breath and chest discomfort. He states been short of breath for over a month. Complains of exertional symptoms. Today he checked his pulse ox and it read in the 50s and that is when he called the squad. He also had a dull mild chest discomfort for which he took some nitroglycerin. Currently does not have any chest discomfort. He has this chest discomfort from time to time. Patient has history of prior CABG. He has a history of A-fib and is on Eliquis. He has history of CHF. He said a chronic cough. He does not think he has gained weight and he does have chronic leg edema. [facility] Medical History Afib CAD (coronary artery disease) CHF (congestive heart failure) Diabetes Home Medications ?Medication ?Instructions ?Recorded ?Last Taken ?Type doxazosin 2 mg tablet 2 mg PO QHS PROSTATE 07/02/16 07/20/25 History multivitamin with folic acid 400 1 tab PO DAILY SUPPLEMENT 07/02/16 07/20/25 History mcg tablet (Thera) nitroglycerin 0.4 mg sublingual 0.4 mg sublingual PRN PRN CHEST 04/01/18 Unknown History tablet (Nitrostat) PAIN apixaban 2.5 mg tablet (Eliquis) 2.5 mg PO BID blood thinner 03/27/24 07/20/25 History insulin degludec 100 unit/mL 40 unit subcut DAILY blood sugar 03/27/24 Unknown History subcutaneous solution (Tresiba U-100 Insulin) atorvastatin 40 mg tablet 40 mg PO DAILY cholesterol 07/21/25 07/20/25 History empagliflozin 10 mg tablet 10 mg PO DAILY 07/21/25 07/20/25 History (Jardiance) sacubitril 97 mg-valsartan 103 mg 1 tab PO BID heart 07/21/25 07/20/25 History tablet (Entresto) furosemide 40 mg tablet 40 mg PO BID fluid #180 tabs 07/23/25 07/20/25 Rx Allergy/AdvReac Type Severity Reaction Status Date / Time finasteride (From ProsTrueFacet) Allergy Hives Verified 11/08/25 19:52 Social History (Updated 07/21/25 @ 10:37 by Irma Hensley) household members: family Smoking Status: Former smoker ROS ROS ED Review of Systems ROS Unobtainable: other Constitutional Constitutional ED: Reports lethargy; Denies chills, fever(s), sweats or weight loss Eyes Eyes: Denies blurry vision, change in vision or diplopia ENT ENT ED: Denies rhinorrhea or sore throat Cardiovascular Cardiovascular: Reports chest pain; Denies orthopnea or racing heartbeat Respiratory/Chest Respiratory/Chest: Reports cough, dyspnea and dyspnea on exertion; Denies orthopnea or sputum Gastrointestinal Gastrointestinal: Denies abdominal pain, diarrhea, nausea or vomiting Genitourinary Genitourinary ED: Denies dysuria, hematuria or urinary frequency Musculoskeletal Musculoskeletal: Reports other Details: Leg edema ; Denies arthralgias, back pain, myalgias or neck pain Integumentary Denies abscess, Abrasions or rash Neurologic Neurologic: Denies headache(s) or weakness Psychiatric Psychiatric: Denies anxiety, depression or suicidal thoughts Endocrine Endocrinology: Denies polydipsia, polyphagia or polyuria Hematologic/Lymphatic Hematologic/Lymphatic: Denies easy bleeding, easy bruising or lymphadenopathy Allergic/Immunologic Allergic/Immunologic ED: Denies mouth swelling, tongue swelling or urticaria EXAM Physical Exam Const Vital Signs: 11/08/25 19:51 11/08/25 19:54 11/08/25 19:59 Temperature 97 F L 97 F L Temperature Source Temporal Temporal Pulse Rate 53 L 57 L Respiratory Rate 22 H 22 H Respiratory Effort Labored Blood Pressure 98/80 114/61 Blood Pressure Mean 86 78 Pulse Ox 96 100 Oxygen Delivery Method Room Air Room Air 11/08/25 20:26 11/08/25 21:22 Temperature Temperature Source Pulse Rate 46 L Respiratory Rate 16 Respiratory Effort Blood Pressure 121/54 H Blood Pressure Mean 76 Pulse Ox 98 Oxygen Delivery Method Room Air Positive well nourished and well developed General Appearance ED: well developed and NAD HEENT Reports TM's clear and moist mucous membranes normocephalic and atraumatic; Negative for trauma or tenderness Tympanic Membrane ED: Yes TM's clear Eyes PERRL and EOMs intact bilaterally General Eye ED: Negative for pale conjunctiva or scleral icterus Neck no lymphadenopathy, supple and no JVD General: Negative for tenderness Chest Wall inspection of chest normal and palpation of chest normal Chest: Negative for tenderness Resp normal respiratory effort and clear to auscultation bilaterally Resp Narrative: Few Rales in the right base. Mild conversational dyspnea. Mild tachypnea. Effort and Inspection: Negative for respiratory distress or pain with movement Auscultation: Negative for rhonchi, wheezes or diminished lung sounds Cardio regular rate, regular rhythm, S1 normal heart sound, S2 normal heart sound and no murmurs Peripheral Pulses: pulses 2+ throughout GI normal to inspection, nondistended, normoactive bowel sounds, soft to palpation, non-tender, non-distended and no masses Back/Spine no CVA tenderness and no thoracic nor lumbar tenderness Extremity Extremity Narrative: +2 edema both lower extremities, venous stasis changes both lower extremities. General Extremety ED: Yes edema General Extremity: edema Neuro oriented x3, CN's II-XII intact bilaterally, no sensory deficits noted and gait normal Sensorium / Orientation: awake, alert, oriented to person, oriented to place and oriented to time Motor Exam: strength 5/5 throughout and strength abnormal Psych mental status grossly normal Skin no rashes or lesions noted and no wounds MDM MDM MDM Narrative Medical decision making narrative: Patient presents to the emergency department with complaint of dyspnea and chest discomfort. Symptoms ongoing but progressively worsening. Today he thought his pulse oximeter at home said his O2 sat was in the 50s and that is when he called the squad. IV line established. EKG obtained on arrival showed atrial fibrillation with rate of [address] changes. CBC with differential shows a white count of 4.3 and hemoglobin 7.1. Chemistry showed sodium 145 with potassium 5.0 and chloride of 107. CO2 was 26.7. BUN 84 and creatinine 3.53. Troponin was 93 and BT DORMITORY SUPERVISOR was 1684. Chest x-ray obtained showed pulmonary edema. Patient was ordered Lasix IV. Patient's troponin is elevated 93 however it appears to be at his baseline for him prior visits. Case will be discussed with hospitalist to evaluate patient for admission Lab Data Attestation: I reviewed the patient's lab results. Labs: Laboratory Results - last 24 hr 11/08/25 19:59 WBC 4.3 L RBC 3.20 L Hgb 7.1 L Hct 25.5 L MCV 79.7 L MCH 22.2 L MCHC 27.8 L RDW Std Deviation 48.7 H RDW Coeff of Jazmin 16.8 H Immature Gran % (Auto) 0.500 Neut % (Auto) 77.0 H Lymph % (Auto) 10.8 L [place] % (Auto) 9.4 Eos % (Auto) 1.8 Baso % (Auto) 0.5 Absolute Neuts (auto) 3.3 Absolute Lymphs (auto) 0.47 L Nucleated RBC % 0 Sodium 145 Potassium 5.0 Chloride 107 H Carbon Dioxide 26.7 Anion Gap 12 BUN 84 H Creatinine 3.53 H Estim Creat Clear Calc 22.82 L Est GFR (MDRD) Non-Af 16 L BUN/Creatinine Ratio 23.7 H Glucose 123 H Calcium 10.6 Troponin T High Sens 93 H* NT pro BNP II 1684 Radiography Diagnostic Testing: Clinical Impression(s) from Imaging Studies Chest X-Ray 11/08/25 20:18 IMPRESSION: Pulmonary findings as above. Reading Location: [facility] 1 view chest x-ray obtained interpreted by myself as increased markings consistent with CHF. Radiology felt there were small pleural effusions. EKG Initial EKG: Attestation: I personally reviewed and interpreted this EKG as follows: Comments: Atrial fibrillation with ventricular rate of 57 bpm with old septal infarct Discharge Plan Dx/Rx/DC Orders Clinical Impression: Dyspnea, CHF (congestive heart failure), Chest pain, Bradycardia Disposition Disposition: Acute Care [facility]
--- NOTE | 2025-11-08 20:18 | RAD_ITS ---
PROCEDURE: CHEST 1 VIEW (PORTABLE) 11/08/2025 REASON FOR EXAM: DYSPNEA TECHNIQUE: Frontal view of the chest. COMPARISON: 07/21/2025. FINDINGS: Prior sternotomy. The heart appears enlarged favoring cardiomegaly or AP technique. Vascular indistinctness of the lungs suggestive of edema. Small bilateral pleural effusions. No acute osseous abnormalities. RAD/Chest 1 View (Portable) IMPRESSION: Pulmonary findings as above. Reading Location: [facility]
--- OUTSIDE RECORDS SUMMARY | 2025-11-08 20:31 | XMS RPT_ITS | CCD ---
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 Name Role Phone MANISH, AVELINO Unavailable Unavailable MANISH, AVELINO Unavailable Unavailable Acevedo, Nithin Unavailable Unavailable MANISH, AVELINO Unavailable Unavailable MANISH, AVELINO Unavailable Unavailable Acevedo, Nithin Unavailable Unavailable MANISH, AVELINO Unavailable Unavailable MANISH, AVELINO Unavailable Unavailable Acevedo, Nithin Unavailable Unavailable MANISH, AVELINO Unavailable Unavailable Julián, Nithin Unavailable Unavailable Acevedo, Nithin Unavailable Unavailable MANISH, AVELINO E Unavailable Unavailable MANISH, AVELINO E Unavailable Unavailable MANISH, AVELINO E Unavailable Unavailable MANISH, AVELINO E Unavailable Unavailable MANISH, AVELINO E Unavailable Unavailable NITHIN ACEVEDO Unavailable Unavailable Nithin Acevedo MD Primary Care Provider [facility], [place] Unavailable DR NITHIN ACEVEDO MD Primary Care Physician [phone] Nithin Acevedo MD Primary Care Provider [facility], [place]eti Unavailable JULIÁN ESCOBEDO., DR. WELLER Primary Care LAURENT Napoles MD Attending Unavailable JULIÁN ESCOBEDO., DR. WELLER Primary Care LAURENT Napoles MD Attending Unavailable JULIÁN ESCOBEDO., DR. WELLER Primary Care LAURENT Napoles MD Attending Unavailable JULIÁN ESCOBEDO., DR. WELLER Primary Care RICHARD Fritz PA-C Attending Unavailable JULIÁN ESCOBEDO., DR. WELLER Primary Care LAURENT Napoles MD Consulting Unavailable LAURENT MYERS MD Attending Unavailable LOUIS ESCOBEDO, LAURENT Admitting Unavailable BENI CHENEY MD Consulting Unavailable SONIA PICHARDO DO Consulting UnavailLAURENT Michaels MD Admitting Unavailable KANE MENDOZA MD Consulting Unavailable JULIÁN ESCOBEDO., DR. WELLER Primary Care LAURENT Napoles MD Attending Unavailable PALUTSIS , EZIO M Consulting Unavail able JULIÁN ESCOBEDO., DR. WELLER Primary Care LAURENT Napoles MD Attending Unavailable [facility], [place] Unavailable Nithin Acevedo MD Primary Care Provider Nithin Acevedo MD Primary Care Provider Michelle PARK WORKER SUPERVISOR.HERBICIDE SPRAYER, Katherin M Unavailable Luis RN, Tertecka Unavailable Unavailable Dr. Nithin Acevedo MD Primary Care Provider Fidel CAMPOVERDE, Dr. Geiger Emergency Provider Dr. Nathaniel Beverly MD Admit Provider Unavailable Dr. Nathaniel Beverly MD Attending Provider Unavaila colin Beverly MD, Dr. Armstrong Other Provider Unavailable Emili ESCOBEDO, Dr. Ngo Attending Provider NITHIN ACEVEDO MD Referring Unavailable HARMAN STRICKLAND MD Attending Unavailable HARMAN STRICKLAND MD Admitting Unavailable HARMAN STRICKLAND MD Primary Care Unavailable NITHIN ACEVEDO MD Consulting Unavailable PROVIDER, UNKNOWN Consulting Unavailable HARMAN STRICKLAND MD Primary Care Unavailable HARMAN STRICKLAND MD Attending Unavailable HARMAN STRICKLAND MD Admitting Unavailable NITHIN ACEVEDO MD Consulting Unavailable PROVIDER, UNKNOWN Consulting Unavailable NITHIN ACEVEDO MD Consulting Unavailable HARMAN STRICKLAND MD Primary Care Unavailable HARMAN STRICKLAND MD Attending Unavailable HARMAN STRICKLAND MD Admitting Unavailable PROVIDER, UNKNOWN Consulting Unavailable HARMAN STRICKLAND MD Primary Care Unavailable HARMAN STRICKLAND MD Attending Unavailable HARMAN STRICKLAND MD Admitting Unavailable NITHIN ACEVEDO MD Consulting Unavailable PROVIDER, UNKNOWN Consulting Unavailable Dr. Nitihn Acevedo MD Primary Care Physician Fidel CAMPOVERDE, Dr. Geiger Emergency Department Physici an Siria ESCOBEDO, Dr. Armstrong Admitting Physician Unavail able Siria ESCOBEDO, Dr. Armstrong Attending Physician Unavail able Siria ESCOBEDO, Dr. Armstrong Nurse Practitioner Unavailkatiana Mock MD, Dr. Ngo Attending Physician Julián ESCOBEDO, Dr. Weller Attending Physician Julián ESCOBEDO, Dr. Weller Referring Provider Harman Strickland Referring Unavailable Acevedo, Nithin Primary Care Unavailable Harman Strickland Attending Unavailable Acevedo, Nithin Attending Unavailable Acevedo, Nithin Referring Unavailable Acevedo, Nithin Primary Care Unavailable Nathaniel Beverly Consulting Unavailable Nathaniel Beverly Attending Unavailable Nathaniel Beverly Admitting Unavailable Acevedo, Nithin Primary Care Unavailable Acevedo, Ntihin Primary Care Unavailable Jeni Mock Attending Unavailabl e Julián, Nithin Primary Care Unavailable Nathaniel Beverly Attending Unavailable Nathaniel Beverly Admitting Unavailable Acevedo, Nithin Primary Care Unavailable Harman Strickland Attending Unavailable Harman Strickland Referring Unavailable ACEVEDO, CORTNEY Primary Care Unavailable ACEVEDO, CORTNEY Referring Unavailable ACEVEOD, CORTNEY Primary Care Unavailable CHRISTAL PALOMARES Referring Unavailab CHRISTAL Moncada Attending Unavailab le ACEVEDO, CORTNEY Primary Care Unavailable VELIA RICHTER Referring Unavailable ACEVEDO, CORTNEY Primary Care Unavailable CHRISTAL PALOMARES Referring Unavailab le ACEVEDO, CORTNEY Primary Care Unavailable KRISTIN GUEVARA Referring Unavailable ACEVEDO, CORTNEY Primary Care Unavailable ACEVEDO, CORTNEY Referring Unavailable VIET LEE Attending Unavailable ACEVEDO, CORTNEY Primary Care Unavailable JODIE BOWERS Referring Unavailable ACEVEDO, CORTNEY Primary Care Unavailable KATHERIN MCKINNON Attending Unavailable ACEVEDO, CORTNEY Primary Care Unavailable VIET LEE Referring Unavailable ACEVEDO, CORTNEY Primary Care Unavailable CHRISTAL PALOMARES Referring Unavailab le ACEVEDO, CORTNEY Primary Care Unavailable KRISTIN GUEVARA Referring Unavailable ACEVEDO, CORTNEY Primary Care Unavailable VIET LEE Referring Unavailable GISELL CASSIDY Attending Unavailable ACEVEDO, NITHIN Kumar Primary Care Unavailable ACEVEDO, NITHIN Kumar Attending Unavailable ACEVEDO, CORTNEY Primary Care Unavailable KATHERIN MCKINNON Attending Unavailable ACEVEDO, CORTNEY Primary Care Unavailable CHRISTAL PALOMARES Referring Unavailab HOMER Ramirez Attending Unavailable ACEVEDO, CORTNEY Primary Care Unavailable KRISTIN GUEVARA Referring Unavailable ACEVEDO, OCRTNEY Primary Care Unavailable ACEVEDO, CORTNEY Attending Unavailable ACEVEDO, CORTNEY Primary Care Unavailable KRISTIN GUEVARA Attending Unavailable ACEVEDO, CORTNEY Primary Care Unavailable ACEVEDO, CORTNEY Primary Care Unavailable CHRISTAL PALOMARES Referring Unavailab le JULIÁN, CORTNEY Primary Care Unavailable CHRISTAL PALOMARES Referring Unavailab le JULIÁN, CORTNEY Primary Care Unavailable HOMER CARPIO Referring Unavailable Allergies Allergy Classification Reported Allergen(s) Allergy Type Date of Onset Reaction(s) Facility (20 sources) finasteride; Translations: [FINASTERIDE] Drug Allergy 07-02-2010 [facility] Repository (20 sources) fexofenadine; Translations: [fexofenadine] Drug Allergy 11-05-2024 Unknown [facility] Medications Current Medications Medication Drug Class(es) Dates Sig (Normalized) Sig (Original) 3 ML semaglutide 1.34 MG/ML Pen Injector [Ozempic] (5 sources) Start: 05-13-2022 inject 1 dose by subcutaneous injection every week Ozempic (1 mg dose) 4 mg/3 mL subcutaneous solution Dose : 1 mg =, Subcutaneous, qWeek Start Date: 05/13/22 Status: Ordered apixaban 2.5 mg oral tablet (20 sources) Factor Xa Inhibitor Start: 05-09-2023 take 1 tablet by mouth twice daily Start: 05-22-2022 End: 06-12-2022 Eliquis 2.5 mg oral tablet D ose : 2.5 mg = 1 tab(s), Oral, BID, # 180 tab(s), 2 Refill(s), Pharm[facility] 182.9, cm, 05/14/22 10:15:00 EDT, Height, 159.7 Start Date: 05/22/22 Status: Ordered Comment on above: Take by mouth twice daily. Take 1 tablet by kendra th twice daily. Per Cardiology. aspirin 81 mg delayed release oral tablet (5 sources) Platelet Aggregation Inhibitor, Nonsteroidal Anti-inflammatory Drug Start: 04-12-20 aspirin 81 mg oral delayed release tablet Dose : 81 mg = 1 tab(s), Oral, qDay, 0 Refill(s) Start Date: 04/12/20 Status: Ordered atorvastatin 40 mg oral tablet (20 sources) HMG-CoA Reductase Inhibitor Start: 08-28-20 take 1 tablet by mouth once daily Comment on above: Take 40 mg by mouth once daily. Blood-Glucose Meter,Continuous (DEXCOM G7 REGIONAL AGRONOMIST) misc (20 sources) Start: 12-01-19 Blood-Glucose Meter,Continuous (DEXCOM G7 REGIONAL AGRONOMIST) misc Dx: E11.49. Insulin: Yes. Use to check blood sugars at least 4 times a day 1 Each 12/01/2024 Active Blood-Glucose Sensor (DEXCOM G7 SENSOR) laquita (20 sources) Start: 12-01-19 Blood-Glucose Sensor (DEXCOM G7 SENSOR) laquita Dx: E11.49. Insulin: Yes. Apply new sensor every ten (10) days 9 Each 3 12/01/2024 Active cefdinir 300 mg oral capsule (1 source) Cephalosporin Antibacterial Start: 01-25-20 End: 02-04-20 take 1 capsule by mouth twice daily cefdinir (OMNICEF) 300 mg capsule Take 1 capsule by mouth two times a day for 10 days. 20 capsule 01/24/2025 02/03/2025 Active clotrimazole 10 mg/ml topical cream (20 sources) Azole Antifungal Start: 11-05-20 24 clotrimazole (LOTRIMIN) 1 % cream Apply 1 application to affected area two times a day. 45 g 3 11/05/2024 Active CPAP/BIPAP/OTHER (20 sources) Start: 11-26-19 End: 04-12-20 52 CPAP/BIPAP/OTHER Type .CPAPSettings into a note to see current settings/supplies/DM E information. 1 Each 11/26/2024 04/12/2052 Active doxazosin 2 mg oral tablet (20 sources) alpha-Adrenergic Carolin Start: 11-13-20 End: 07-01-20 take 1 tablet by mouth at bedtime Comment on above: Take 1 tablet by kendra th daily at bedtime. empagliflozin 10 mg oral tablet (3 sources) Sodium-Glucose Cotransporter 2 Inhibitor Start: 07-21-20 take 1 tablet by mouth once daily furosemide 40 mg oral tablet (20 sources) Loop Diuretic Start: 07-26-20 take 2 tablets by mouth once daily in the morning, then take 1 tablet by mouth once daily in the evening furosemide (LASIX) 40 mg tablet Indications: Chronic diastolic CHF (congestive heart failure) (HCC) Take 2 tablets by mouth every morning AND 1 tablet every evening. 270 tablet 1 07/26/2025 Active Start: 07-23-2025 take 2 tablets by mo uth twice daily in the morning Start: 07-21-2025 End: 07-23-2025 take 1 tablet by mouth twice daily Furosemide 40 mg tablet Discontinued 40 mg PO TWICE A DAY July 21, 2025 12:00am July 23, 2025 11:00am fluid Start: 05-09-2023 End: 07-26-2025 furosemide (LASIX) 40 mg tab let Indications: Chronic diastolic CHF (congestive heart failure) (HCC) Take one(1) tablet daily in the morning. Take one(1) tablet in the evening, every other day. Per Cardiology. 04/15/2024 07/26/2025 Discontinued Start: 04-09-2022 Lasix 40 mg or al tablet Dose : 40 mg = 1 tab(s), Oral, qDay, # 90 tab(s), 3 Refill(s), Pharmacy: [facility], 185, cm, 02/26/22 9:54:00 EDT, Height Start Date: 04/09/22 Status: Ordered Start: 04-01-2018 End: 07-21-2025 take 1 tablet by mouth once daily Furosemide 20 MG tablet Discontinued 20 mg PO DAILY April 01, 2018 12:00am July 21, 2025 10:41am BP Comment on above: Take 1 tablet by ekndra th once daily. Take 1 tablet by kendra th once daily. Per Cardiology. insulin degludec 100 unt/ml injectable solution (20 sources) Insulin Analog Start: 03-27-2024 Start: 11-01-2022 End: 07-26-2025 insulin degludec (TRESIBA FL EXTOUCH U-200) 200 unit/mL (3 mL) injection Indications: Type 2 diabetes mellitus with neurological manifestations, controlled (HCC) Inject 64 Units subcutaneously every morning. Pt Assistance Medication. 11/01/2022 07/26/2025 Discontinued ( Patient) Start: 06-25-2022 End: 11-01-2022 insulin degludec (TRESIBA FL EXTOUCH U-100) 100 unit/mL (3 mL) injection pen Indications: Type 2 diabetes mellitus with neurological manifestations, controlled (HCC) Inject 64 Units subcutaneously every morning. Pt Assistance Medication. 0 06/25/2022 11/01/2022 Discontinued (Changing Therapy/Dosage Form) Start: 11-23-2021 End: 06-25-2022 insulin degludec (TRESIBA FL EXTOUCH U-100) 100 unit/mL (3 mL) injection pen Indications: Type 2 diabetes mellitus with neurological manifestations, controlled (HCC) Inject 60 Units subcutaneously every morning. Pt Assistance Medication. 0 11/23/2021 06/25/2022 Discontinued (Adjust Sig - Block E-Cancel) Start: 08-28-2021 inject 1 dose by sub cutaneous injection once daily in the morning Tresiba 100 units/mL subcutaneous solution Dose : 64 unit(s) =, Subcutaneous, qAM, 0 Refill(s) Start Date: 08/28/21 Status: Ordered Comment on above: Inject 60 Units subc utaneously every morning. Pt Assistance Medication. Inject 64 Units subc utaneously every morning. Pt Assistance Medication. Insulin Degludec (Tresiba U-100 Insulin) 100 unit/mL solution (3 sources) Start: 03-27-2024 Insulin Degludec (Tresiba U-100 Insulin) 100 unit/mL solution Active 40 U SC DAILY March 27, 2024 12:00am blood sugar Start: 03-27-2024 Insulin Deglud ec (Tresiba U-100 Insulin) 100 unit/mL solution Active 40 U SC DAILY March 27, 2024 12:00am Start: 03-27-2024 Insulin Deglud ec (Tresiba U-100 Insulin) 100 unit/mL solution Active 40 UNIT SC DAILY March 27, 2024 12:00am 3 ml insulin lispro 100 unt/ml pen injector (13 sources) Insulin Analog Start: 05-13-2022 HumaLOG KwikPe n 100 units/mL injectable PEN Dose : 6 unit(s) =, Subcutaneous, acSupper, 3 mL PEN Start Date: 05/13/22 Status: Ordered Start: 04-24-2022 End: 06-25-2022 inject 6 [IU] by subcutaneous injection once daily at dinner insulin lispro (HUMALOG KWIKPEN) 100 unit/mL Indications: Uncontrolled type 2 diabetes mellitus with hyperglycemia (HCC) Inject 6 Units subcutaneously daily with dinner. 5 Pen 0 04/24/2022 06/25/2022 Discontinued (Changing Therapy/Dosage Form) Comment on above: Inject 6 Units subcu taneously daily with dinner. Multiple Vitamins oral tablet (5 sources) Start: 2 take 1 tablet by mouth once daily Multiple Vitamins oral tablet Dose = 1 tab(s), Oral, qDay Start Date: 05/13/22 Status: Ordered Multivitamin With Folic Acid (Thera) 1 TABLET tablet (4 sources) Start: 6 take 1 tablet by mouth once daily Start: 07-02-2016 take 1 tablet by kendra th once daily Multivitamin With Folic Acid (Thera) 1 TABLET tablet Active 1 {tbl} PO DAILY July 02, 2016 12:00am SUPPLEMENT Start: 07-02-2016 take 1 tablet by kendra th once daily Multivitamin With Folic Acid (Thera) 1 TABLET tablet Active 1 TABLET PO DAILY July 02, 2016 12:00am nitroglycerin 0.4 mg sublingual tablet (20 sources) Nitrate Vasodilator Start: 02-25-2018 Nitroglyce rin (Nitrostat) 0.4 MG tablet, sublingual Active 0.4 MG SL NEEDED April 01, 2018 12:00am Start: 02-11-2018 Comment on above: Dissolve 1 tablet un ash the tongue as needed for Chest Pain. If no pain relief call 911. sacubitril 97 mg / valsartan 103 mg oral tablet (20 sources) Angiotensin 2 Receptor Carolin Start: 07-21-2025 Start: 07-21-2025 Sacubitril-Ivana sartan (Entresto) 97-103 mg tablet Active 1 {tbl} PO TWICE A DAY July 21, 2025 12:00am heart Start: 07-21-2025 Sacubitril-Ivana sartan (Sacubitril 97 Mg-Valsartan 103 Mg Tablet) 97-103 mg tablet Active 1 {tbl} PO TWICE A DAY July 21, 2025 12:00am Start: 05-09-2023 sacubitril-ivana sartan (ENTRESTO) 97-103 mg tablet Indications: Chronic diastolic CHF (congestive heart failure) (HCC) Take 1 tablet by mouth two times a day. Per Cardiology. 05/09/2023 Active Start: 05-09-2023 sacubitril-ivana sartan (ENTRESTO) 24-26 mg tablet Indications: Chronic diastolic CHF (congestive heart failure) (HCC) Take 1 tablet by mouth twice daily. Per Cardiology. 0 05/09/2023 Active Comment on above: Take 1 tablet by kendra th twice daily. Per Cardiology. Take 1 tablet by kendra th two times a day. Per Cardiology. triamcinolone acetonide 1 mg/ml topical cream (20 sources) Corticosteroid Start: 10-13-2023 triamcinolone acetonide (KENALOG) 0.1 % cream Apply 1 application to affected area two times a day. Apply sparingly to top of ears 15 g 1 10/13/2023 Active Comment on above: Apply 1 application to affected area two times a day. Apply sparingly to top of ears Completed/Discontinued Medications Medication Drug Class(es) Dates Sig (Normalized) Sig (Original) [id number] 200 actuat albuterol 0.09 mg/actuat metered dose inhaler (10 sources) beta2-Adrenergic Agonist Start: 01-07-2019 End: 03-27-2024 take 1 puff(s) by inhalation every four hours as needed Albuterol Sulfate (Proair Hfa (Sp)Vent Pts) 1 PUFF inhaler Discontinued 2 NMA INHALATION EVERY 4 HOURS NEEDED as needed for Sob &/Or Wheezing January 07, 2019 1:00am March 27, 2024 1:13pm Start: 01-07-2019 End: 07-21-2025 Albuterol Sulfate 1 INHALER inhaler Discontinued 2 NMA INHALATION EVERY 4 HOURS NEEDED as needed for Wheezing 1 0 January 07, 2019 1:00am July 21, 2025 12:52pm Start: 01-07-2019 End: 07-21-2025 Albuterol Sulfate 1 INHALER inhaler Discontinued 2 NMA INHALATION EVERY 4 HOURS NEEDED as needed for Wheezing 1 January 07, 2019 1:00am July 21, 2025 12:52pm Start: 01-07-2019 Albuterol Sulf ate 1 INHALER inhaler Active 2 NMA INHALATION EVERY 4 HOURS NEEDED as needed for Wheezing 1 0 January 07, 2019 1:00am Start: 01-07-2019 take 1 puff(s) by in halation every four hours as needed Albuterol Sulfate Active 2 PUFF INHALATION EVERY 4 HOURS NEEDED January 07, 2019 1:00am Start: 11-27-2018 End: 12-01-2020 take 2 puff(s) by inhalation every four hours as needed albuterol HFA (PROAIR HFA) 90 mcg/actuation inhaler Indications: Acute bronchitis, unspecified organism , Wheezing Inhale 2 Puffs as instructed every 4 hours as needed. 3 Inhaler 3 11/27/2018 12/01/2020 Discontinued (Discontinued by Patient) Start: 07-02-2016 End: 08-20-2016 Albuterol Sulfate (Ventolin Hfa) 1 INHALER inhaler Discontinued 2 NMA INHALATION EVERY 4 HOURS NEEDED as needed for Sob &/Or Wheezing July 02, 2016 12:00am August 20, 2016 8:31am Start: 07-02-2016 End: 08-20-2016 take 1 puff(s) by inhalation every four hours as needed Albuterol Sulfate (Ventolin Hfa) 1 INHALER inhaler Discontinued 2 PUFF INHALATION EVERY 4 HOURS NEEDED July 02, 2016 12:00am August 20, 2016 8:31am Albuterol Sulfate (Proair Hfa (Sp)Vent Pts) 1 PUFF inhaler (3 sources) Start: 01-07-2019 End: 03-27-2024 take 1 puff(s) by inhalation every four hours as needed Albuterol Sulfate (Proair Hfa (Sp)Vent Pts) 1 PUFF inhaler Discontinued 2 NMA INHALATION EVERY 4 HOURS NEEDED as needed for Sob &/Or Wheezing January 07, 2019 1:00am March 27, 2024 1:13pm Start: 01-07-2019 End: 03-27-2024 take 1 puff(s) by inhalation every four hours as needed Albuterol Sulfate (Proair Hfa (Sp)Vent Pts) 1 PUFF inhaler Discontinued 2 PUFF INHALATION EVERY 4 HOURS NEEDED January 07, 2019 1:00am March 27, 2024 1:13pm amoxicillin 875 mg / clavulanate 125 mg oral tablet (4 sources) Penicillin-class Antibacterial Start: 03-27-2024 End: 07-21-2025 Amoxicillin-Pot Clavulanate 875-125 mg tablet Discontinued 1 {tbl} PO TWICE A DAY March 27, 2024 12:00am July 21, 2025 10:41am Start: 03-27-2024 take 1 tablet by kendra th twice daily Amoxicillin-Pot Clavulanate Active 1 TABLET PO TWICE A DAY 04 09March 27, 2024 12:00am atenolol 50 mg oral tablet (4 sources) beta-Adrenergic Carolin Start: 07-02-2016 End: 07-15-2016 Atenolol 50 MG tablet Discontinued 75 mg PO DAILY July 02, 2016 12:00am July 15, 2016 9:55am Start: 07-02-2016 End: 07-15-2016 take 75 mg by mouth once daily Atenolol Discontinued 7 5 MG PO DAILY July 02, 2016 12:00am July 15, 2016 9:55am azelastine hydrochloride 0.137 mg/actuat / fluticasone propionate 0.05 mg/actuat metered dose nasal spray (20 sources) Corticosteroid, Histamine-1 Receptor Antagonist Start: 06-25-2021 End: 07-28-2024 take 1 spray(s) nasal route twice daily azelastine-fluticasone (DYMISTA) 137-50 mcg/spray spry Use 1 [place] in each nostril twice daily. 23 g 1 06/25/2021 07/28/2024 Discontinued (Discontinued by Patient) Comment on above: Use 1 [place] in each nostril twice daily. azithromycin 250 mg oral tablet (4 sources) Macrolide Antimicrobial Start: 01-07-2019 End: 03-27-2024 take 2 tablets by mouth once daily, then take 1 tablet by mouth once daily Azithromycin 250 MG tablet Discontinued 250 mg PO DIRECTED January 07, 2019 1:00am March 27, 2024 1:09pm TAKE 2 TABLETS 1ST DAY THEN 1 TABLET DAILY FOR NEXT 4 DAYS. bacitracin 0.5 unt/mg topical ointment (1 source) Start: 07-07-2022 bacitracin topical ointment Apply 1 adam, Topical, Once, 0 Refill(s), Ointment, 156.5 Start Date: 07/07/22 Status: Ordered cholecalciferol, vitamin D3, (VITAMIN D3 ORAL) (20 sources) End: 09-01-2024 take 2000 [IU] by mouth once daily cholecalciferol, vitamin D3, (VITAMIN D3 ORAL) Take 2,000 Units by mouth once daily. 09/01/2024 Discontinued take 2000 [IU] by mouth once candis ly cholecalciferol, vitamin D3, (VITAMIN D3 ORAL) Take 2,000 Units by mouth once daily. Active take 2000 [IU] by mouth once candis ly cholecalciferol, vitamin D3, (VITAMIN D3 ORAL) Take 2,000 Units by mouth once daily. 0 Active Comment on above: Take 2,000 Units by mouth once daily. dapagliflozin 5 mg oral tablet (20 sources) Sodium-Glucose Cotransporter 2 Inhibitor Start: 023 End: 025 take 1 tablet by mouth once daily at breakfast dapagliflozin (FARXIGA) 10 mg tablet Indications: Type 2 diabetes mellitus with neurological manifestations, controlled (HCC) Take 1 tablet by mouth daily with breakfast. Per Cardiology. 0 05/09/2023 04/15/2024 Discontinued (.All criteria met for discontinuation) Start: 12-18-2022 End: 07-21-2025 take 1 tablet by mouth at bedtime Dapagliflozin Propanediol (Farxiga) 5 mg tablet Discontinued 5 mg PO AT BEDTIME March 27, 2024 12:00am July 21, 2025 12:50pm Comment on above: Take 1 tablet by kendra th daily with breakfast. Per Cardiology. 24 hr ferrous sulfate 142 mg extended release oral tablet (4 sources) Start: 4 End: 5 take 1 tablet by mouth once daily Ferrous Sulfate 137 mg (45 mg iron) tablet extended release Discontinued 137 mg PO DAILY March 27, 2024 12:00am July 21, 2025 12:52pm flesh skin and bone (3 sources) Start: 2 flesh skin and bone flesh skin and bone, 2 cap(s), Oral, BID, 0 Refill(s), 160.6 Start Date: 06/26/22 Status: Ordered glipiZIDE er 10 mg 24 hr extended release oral tablet (5 sources) Sulfonylurea Start: 0 End: 1 take 1 tablet by mouth once daily glipiZIDE (GLUCOTROL XL) 10mg 24 hr tablet Indications: Type 2 diabetes mellitus with neurological manifestations, controlled (HCC) Take 1 tablet by mouth once daily. 90 tablet 3 01/12/2020 12/01/2020 Discontinued Start: 07-02-2016 End: 03-27-2024 take 1 tablet by mouth once daily Glipizide 10 MG tablet Discontinued 10 mg PO DAILY@0730 July 02, 2016 12:00am March 27, 2024 1:09pm DIABETES 3 ml insulin aspart, human 100 unt/ml pen injector (20 sources) Insulin Analog Start: 06-25-2022 End: 07-26-2025 inject 8 [IU] by subcutaneous injection once daily at dinner insulin aspart U-100 (NOVOLOG FLEXPEN U-100 INSULIN) 100 unit/mL (3 mL) Inject 8 Units subcutaneously daily with dinner. Patient assistance. (will switch from Humalog sample to Novolog when supply arrives) 06/25/2022 07/26/2025 Discontinued Start: 04-23-2022 End: 06-25-2022 inject 6 [IU] by subcutaneous injection once daily at dinner insulin aspart U-100 (NOVOLOG FLEXPEN U-100 INSULIN) 100 unit/mL (3 mL) Indications: Uncontrolled type 2 diabetes mellitus with hyperglycemia (HCC) Inject 6 Units subcutaneously daily with dinner. 15 mL 0 04/23/2022 04/24/2022 Discontinued (Cost of medication) Comment on above: Inject 6 Units subcu taneously daily with dinner. Inject 6 Units subcu taneously daily with dinner. Patient assistance. (will switch from Humalog sample to Novolog when supply arrives) Inject 8 Units subcu taneously daily with dinner. Patient assistance. (will switch from Humalog sample to Novolog when supply arrives) 3 ml insulin glargine 100 unt/ml pen injector (9 sources) Insulin Analog Start: 05-30-2022 End: 06-25-2022 insulin glargine (LANTUS SOLOSTAR U-100 INSULIN) 100 unit/mL (3 mL) Inject 60 Units subcutaneously every morning. 5 Pen 0 05/30/2022 06/25/2022 Discontinued (Changing Therapy/Dosage Form) Start: 06-29-2020 End: 12-01-2020 insulin glargine (LANTUS JUDY OSTAR U-100 INSULIN) 100 unit/mL (3 mL) Indications: Type 2 diabetes mellitus with neurological manifestations, controlled ([facility]) Inject 55 Units subcutaneously daily at bedtime. 18 Pen 3 06/29/2020 12/01/2020 Discontinued Start: 04-01-2018 End: 03-27-2024 Insulin Glargine (Lantus Judy ostar U-100 Insulin) 100 UNITS/ML insulin pen Discontinued 15 U SC AT BEDTIME April 01, 2018 12:00am March 27, 2024 1:05pm DIABETES Comment on above: Inject 60 Units subc utaneously every morning. Inject 60 Units subc utaneously daily at bedtime. 3 ml liraglutide 6 mg/ml pen injector (5 sources) GLP-1 Receptor Agonist Start: 07-02-20 End: 03-27-20 Liraglutide (Victoza 2-Gilson) 0.6 MG/0.1 ML Ml Discontinued 1.8 mg SQ DAILY July 02, 2016 12:00am March 27, 2024 1:04pm DIABETES lisinopril 10 mg oral tablet (4 sources) Angiotensin Converting Enzyme Inhibitor Start: 07-02-20 End: 03-27-20 24 take 1 tablet by mouth once daily Lisinopril 10 MG tablet Discontinued 10 mg PO DAILY July 02, 2016 12:00am March 27, 2024 1:04pm BP losartan potassium 25 mg oral tablet (20 sources) Angiotensin 2 Receptor Carolin Start: 11-23-19 End: 04-01-20 take 1 tablet by mouth once daily losartan (COZAAR) 25 mg tablet Indications: Essential hypertension Take 1 tablet by mouth once daily. 90 tablet 1 04/01/2022 Active Comment on above: Take 1 tablet by kendra th once daily. lovastatin 40 mg oral tablet (5 sources) HMG-CoA Reductase Inhibitor Start: 07-02-20 End: 09-04-20 25 take 1 tablet by mouth at bedtime Lovastatin (Mevacor) 40 MG tablet Discontinued 40 mg PO AT BEDTIME July 02, 2016 12:00am July 21, 2025 12:51pm CHOLESTEROL LOW-DOSE ASPIRIN ORAL (20 sources) End: 07-28-20 24 take 81 mg by mouth once daily LOW-DOSE ASPIRIN ORAL Indications: Atherosclerosis of [place] coronary artery of [place] heart without angina pectoris Take 81 mg by mouth once daily. 07/28/2024 Discontinued (Discontinued by another Health Care Provider) take 81 mg by mouth once daily L OW-DOSE ASPIRIN ORAL Indications: Atherosclerosis of [place] coronary artery of [place] heart without angina pectoris Take 81 mg by mouth once daily. Active take 81 mg by mouth once daily L OW-DOSE ASPIRIN ORAL Indications: Atherosclerosis of [place] coronary artery of [place] heart without angina pectoris Take 81 mg by mouth once daily. 0 Active Comment on above: Take 81 mg by mouth once daily. MULTIVITAMIN TAB (20 sources) Start: 10-16-2005 End: 07-26-2025 MULTIVITAMIN TAB Take one(1) tablet daily. 0 10/16/2005 07/26/2025 Discontinued Start: 10-16-2005 MULTIVITAMIN T AB Take one(1) tablet daily. 0 10/16/2005 Active Comment on above: Take one(1) tablet d aily. oxyCODONE hydrochloride 5 mg oral tablet (8 sources) Opioid Agonist Start: 9 End: 4 take 1 tablet by mouth twice daily as needed for pain Oxycodone 5 MG tablet Discontinued 5 mg PO TWICE DAILY NEEDED as needed for Mod-Severe Pain (4-10/10) January 07, 2019 6:28am March 27, 2024 1:03pm Start: 04-17-2018 End: 01-07-2019 take 5-10 mg by mouth every four hours as needed for pain Oxycodone 5 MG tablet Discontinued 5 - 10 mg PO EVERY 4 HOURS NEEDED as needed for Mod-Severe Pain (4-10/10) 56 7 0 April 17, 2018 12:00am January 07, 2019 6:28am Other acute postprocedural pain rivaroxaban 15 mg oral tablet (20 sources) Factor Xa Inhibitor Start: 06-12-2022 take 1 tablet by mouth once daily at dinner rivaroxaban (XARELTO) 15 mg tablet Indications: Atrial fibrillation, unspecified type (HCC) Take 1 tablet by mouth daily with dinner. 0 06/12/2022 Active Start: 08-28-2021 End: 05-19-2022 take 1 tablet by mouth once daily XARELTO 15 mg tablet Take 15 mg by mouth once daily. 0 08/28/2021 05/19/2022 Discontinued (Discontinued by Patient) Comment on above: Take 15 mg by mouth once daily. Take 1 tablet by kendra th daily with dinner. 0.25 mg, 0.5 mg dose 1.5 ml semaglutide 1.34 mg/ml pen injector (1 source) Start: End: semaglutide (OZEMPIC) 0.25 mg or 0.5 mg(2 mg/1.5 mL) pnij Inject 0.5 mg subcutaneously one time a week. Get's through patient assistance. Replaces Victoza. 0 08/08/2021 02/22/2022 Discontinued (Dosage adjustment) Comment on above: Inject 0.5 mg subcut aneously one time a week. Get's through patient assistance. Replaces Victoza. semaglutide (OZEMPIC) 1 mg/dose (4 mg/3 mL) pen (20 sources) Start: 024 End: inject 1 mg by subcutaneous injection once semaglutide (OZEMPIC) 1 mg/dose (4 mg/3 mL) pen Indications: Type 2 diabetes mellitus with neurological manifestations, controlled (HCC) Inject 1 mg subcutaneously one time a week. Per medication program. 08/03/2024 07/26/2025 Discontinued Start: 08-03-2024 inject 1 mg by subcu taneous injection once semaglutide (OZEMPIC) 1 mg/dose (4 mg/3 mL) pen Indications: Type 2 diabetes mellitus with neurological manifestations, controlled (HCC) Inject 1 mg subcutaneously one time a week. Per medication program. 08/03/2024 Active semaglutide (OZEMPIC) 1 mg/dose (4 mg/3 mL) pen injector (20 sources) Start: 02-22-2022 End: 07-28-2024 inject 1 mg by subcutaneous injection every week semaglutide (OZEMPIC) 1 mg/dose (4 mg/3 mL) pen injector Indications: Type 2 diabetes mellitus with neurological manifestations, controlled (HCC) Inject 1 mg subcutaneously one time a week. 3 Each 3 02/22/2022 07/28/2024 Discontinued (Discontinued by Patient) Start: 02-22-2022 inject 1 mg by subcu taneous injection every week semaglutide (OZEMPIC) 1 mg/dose (4 mg/3 mL) pen injector Indications: Type 2 diabetes mellitus with neurological manifestations, controlled (HCC) Inject 1 mg subcutaneously one time a week. 3 Each 3 02/22/2022 Active Comment on above: Inject 1 mg subcutan eously one time a week. silver sulfADIAZINE 10 mg/ml topical cream (1 source) Sulfonamide Antibacterial Start: 05-13-20 silver sulfADIAZINE 1% topical cream Apply 1 adam, Topical, BID, 0 Refill(s), 162.6 Start Date: 05/13/22 Status: Ordered sotalol hydrochloride 80 mg oral tablet (20 sources) Antiarrhythmic Start: 02-23-20 take 0.5 tablet by mouth twice daily sotalol (BETAPACE) 80 mg tablet Indications: Atrial fibrillation, unspecified type ([facility]) Take 0.5 tablets by mouth twice daily. 90 tablet 3 02/22/2022 Active Start: 04-01-2018 End: 03-27-2024 take 1 tablet by mouth at bedtime Sotalol 80 MG tablet Discontinued 80 mg PO AT BEDTIME April 01, 2018 9:24am March 27, 2024 1:11pm HEART Start: 07-15-2016 End: 04-01-2018 Sotalol 80 MG tablet Discont inued 120 mg PO TWICE A DAY 60 0 July 15, 2016 12:00am April 01, 2018 9:24am Start: 07-15-2016 End: 04-01-2018 take 120 mg by mouth twice daily Sotalol Discontinued 120 MG PO TWICE A DAY 60 July 15, 2016 12:00am April 01, 2018 9:24am Comment on above: Take 0.5 tablets by mouth twice daily. Take 1 tablet by kendra th once daily. spironolactone 25 mg oral tablet (20 sources) Aldosterone Antagonist Start: 04-01-20 18 End: 07-21-20 take 1 tablet by mouth at bedtime Spironolactone 25 MG tablet Discontinued 25 mg PO AT BEDTIME April 01, 2018 12:00am July 21, 2025 12:51pm BP Comment on above: Take 1 tablet by kendra th once daily. vitamin e 90 mg oral capsule (4 sources) Start: 01-07-20 End: 07-21-20 25 Vitamin E (Dl, Acetate) 200 UNIT capsule Discontinued 200 U PO DAILY January 07, 2019 1:00am July 21, 2025 12:51pm warfarin sodium 5 mg oral tablet (13 sources) Vitamin K Antagonist Start: 07-02-20 End: 07-21-20 25 take 2 tablets by mouth once daily Warfarin (Jantoven) 5 MG tablet Discontinued 10 mg PO DAILY April 01, 2018 9:24am July 21, 2025 10:45am BLOOD THINNER resume 08/21 Problems Active Problems Problem Classification Problem Date Documented Date Episodic/Chronic Abdominal pain (1 source) Left inguinal pain; Translations: [Left lower quadrant pain] 10-30-2020 Episodic Cardiac dysrhythmias (20 sources) Atrial fibrillation; Translations: [Unspecified atrial fibrillation] Onset: 6 Chronic Comment on above: EKG from 02/19/2018 re viewed independently and shows sinus rhythm with first-degree AV block. Right bundle branch block. Chronic kidney disease (20 sources) Chronic kidney disease stage 4; Translations: [Chronic kidney disease, stage 4 (severe)] Onset: 3 Resolved: 9 07-22-2018 Chronic Chronic obstructive pulmonary disease and bronchiectasis (4 sources) Bronchitis; Translations: [Bronchitis, not specified as acute or chronic] 04-16-2018 Episodic Chronic ulcer of skin (10 sources) Pressure ulcer of left buttock, stage 1; Translations: [Pressure ulcer, buttock] Onset: 5 07-26-2025 Chronic Coagulation and hemorrhagic disorders (9 sources) Thrombocytopenic disorder; Translations: [Thrombocytopenia, unspecified] Onset: 5 07-26-2025 Chronic Conduction disorders (20 sources) Right bundle branch block; Translations: [Unspecified right bundle-branch block] Onset: 6 07-30-2016 Chronic Congestive heart failure; nonhypertensive (20 sources) Chronic diastolic heart failure; Translations: [Chronic diastolic (congestive) heart failure] Onset: 8 07-22-2018 Chronic Coronary atherosclerosis and other heart disease (20 sources) Atherosclerotic heart disease of [place] coronary artery without angina pectoris; Translations: [Coronary atherosclerosis] Onset: 9 05-12-2019 Chronic Comment on above: 11/26/[address] pierre- MIKI TO LAD AND REVERSE VEIN TO DIAGONAL. 02/10/2018 ABN NUCLEAR STRESS SHOWED MODERATE AMT INFERIOR ISCHEMIA EF 63%/DR NGUYỄN REFERED FOR HEART CATH TO RRP.02/26/2018 02/26/2018: Patent bypass grafts 2/ with 100% proximal LAD stenosis with mild disease of RCA and left circumflex. 04/30/2019: TTE: Moderate concentric LVH, EF 50%. Mild hypokinesis of the distal anterior/anteroseptal wall. Mild TR. Mild aortic sclerosis. RVSP 38 mmHg. Deficiency and other anemia (2 sources) Anemia in chronic kidney disease; Translations: [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)] Onset: 3 Chronic Deficiency and other anemia (20 sources) Anemia; Translations: [Anemia, unspecified] Onset: 3 05-12-2013 Episodic Deficiency and other anemia (1 source) Anemia, unspecified; Translations: [Anemia, unspecified] Onset: 5 Episodic Diabetes mellitus with complications (20 sources) Type 2 diabetes mellitus; Translations: [Type 2 diabetes mellitus with other diabetic neurological complication] Onset: 5 Chronic Diabetes mellitus without complication (9 sources) Diabetes mellitus; Translations: [Type 2 diabetes mellitus without complications] 02-25-2018 Chronic Disorders of lipid metabolism (20 sources) Hyperlipidemia; Translations: [Hyperlipidemia, unspecified] Onset: 9 09-12-2015 Chronic Disorders of teeth and jaw (1 source) Jaw pain; Translations: [Jaw pain] 03-07-2025 Episodic Essential hypertension (20 sources) Essential (primary) hypertension; Translations: [Essential hypertension] Onset: 5 09-12-2015 Chronic Genitourinary symptoms and ill-defined conditions (1 source) Proteinuria; Translations: [Proteinuria, unspecified] 09-01-2024 Episodic Hyperplasia of prostate (20 sources) Benign prostatic hypertrophy with outflow obstruction; Translations: [Benign prostatic hyperplasia with lower urinary tract symptoms] Onset: 0 Resolved: 0 Chronic Hypertension with complications and secondary hypertension (4 sources) Hypertensive heart and chronic kidney disease with heart failure and stage 1 through stage 4 chronic kidney disease, or unspecified chronic kidney disease; Translations: [Hypertensive chronic kidney disease with stage 1 through stage 4 chronic kidney disease, or unspecified chronic kidney disease] Onset: 4 Chronic Immunizations and screening for infectious disease (1 source) Encounter for immunization; Translations: [Encounter for immunization] Onset: 5 Episodic Medical examination/evaluati on (1 source) Encounter for preprocedural cardiovascular examination; Translations: [Encounter for preprocedural cardiovascular examination] Onset: 8 Episodic Neoplasms of unspecified nature or uncertain behavior (20 sources) Monoclonal gammopathy of uncertain significance; Translations: [Monoclonal gammopathy] Onset: 5 12-13-2024 Chronic Open wounds of extremities (20 sources) Open wound of lower leg; Translations: [Unspecified open wound, right lower leg, initial encounter] Onset: 2 Resolved: 3 Episodic Osteoarthritis (20 sources) Osteoarthritis of knee; Translations: [Unilateral primary osteoarthritis, unspecified knee] Onset: 4 11-12-2021 Chronic Other aftercare (20 sources) Patient encounter status; Translations: [Encounter for therapeutic drug level monitoring] Onset: 6 07-30-2016 Episodic Other aftercare (1 source) Long-term current use of anticoagulant; Translations: [MCC (current) use of anticoagulants] 01-21-2025 Episodic Other diseases of veins and lymphatics (4 sources) Venous insufficiency (chronic) (peripheral); Translations: [Venous (peripheral) insufficiency, unspecified] Onset: 5 07-26-2025 Episodic Other endocrine disorders (4 sources) Hyperparathyroidism; Translations: [Hyperparathyroidism, unspecified] 12-14-2024 Chronic Other endocrine disorders (4 sources) Primary hyperparathyroidism; Translations: [Primary hyperparathyroidism] 12-19-2024 Chronic Other endocrine disorders (1 source) Primary hyperparathyroidism; Translations: [Primary hyperparathyroidism (HCC)] Onset: 5 Chronic Other endocrine disorders (1 source) Hyperparathyroidism, unspecified; Translations: [Hyperparathyroidism (HCC)] Onset: 5 Chronic Other injuries and conditions due to external causes (3 sources) Avulsion of skin 06-26-2022 Episodic Other lower respiratory disease (1 source) Interstitial lung disease; Translations: [Interstitial pulmonary disease, unspecified] 12-20-2024 Chronic Other lower respiratory disease (20 sources) Dyspnea; Translations: [Shortness of breath] Onset: 6 Resolved: 0 10-09-2010 Episodic Other nutritional; endocrine; and metabolic disorders (20 sources) Body mass index 40+ - severely obese; Translations: [Morbid (severe) obesity due to excess calories] 03-17-2018 Chronic Other nutritional; endocrine; and metabolic disorders (20 sources) Hypercalcemia; Translations: [Hypercalcemia] Onset: 2 11-23-2021 Chronic Other nutritional; endocrine; and metabolic disorders (8 sources) Morbid obesity; Translations: [Morbid (severe) obesity due to excess calories] 06-27-2020 Chronic Other nutritional; endocrine; and metabolic disorders (4 sources) 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; Translations: [Hypercalcemia] 09-01-2024 Chronic Other nutritional; endocrine; and metabolic disorders (1 source) Morbid (severe) obesity due to excess calories; Translations: [Morbid obesity with BMI of 45.0-49.9, adult ([facility])] Onset: 3 Chronic Other nutritional; endocrine; and metabolic disorders (1 source) Body mass index (BMI) 45.0-49.9, adult; Translations: [Morbid obesity with BMI of 45.0-49.9, adult ([facility])] Onset: 3 Chronic Other nutritional; endocrine; and metabolic disorders (2 sources) Hypercalcemia; 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] Onset: 2 Chronic Other nutritional; endocrine; and metabolic disorders (1 source) Hypervitaminosis D; 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] Onset: 4 Chronic Other screening for suspected conditions (not mental disorders or infectious disease) (20 sources) CT of chest abnormal; Translations: [Abnormal findings on diagnostic imaging of other specified body structures] Onset: 5 01-21-2025 Chronic Neva-; endo-; and myocarditis; cardiomyopathy (except that caused by tuberculosis or sexually transmitted disease) (20 sources) Heart valve disorder; Translations: [Endocarditis, valve unspecified] Onset: 5 02-15-2025 Chronic Residual codes; unclassified (20 sources) Obstructive sleep apnea syndrome; Translations: [Obstructive sleep apnea (adult) (pediatric)] Onset: 6 04-12-2020 Chronic Comment on above: Uses CPAP on most da ys. Again emphasized the need to exercise regularly, lose weight and be compliant with his CPAP Residual codes; unclassified (1 source) Obstructive sleep apnea (adult) (pediatric); Translations: [HELDER on CPAP] Onset: 5 Chronic Residual codes; unclassified (3 sources) Denture present 06-26-2022 Episodic Comment on above: full upper and lower Skin and subcutaneous tissue infections (5 sources) Cellulitis of right foot; Translations: [Cellulitis of right lower limb] 03-27-2024 Episodic Unclassified (1 source) Unknown / UNK(Unknown) Onset: 8 Unclassified (2 sources) CABG( Confirmed ) Onset: 7 11-26-2006 Unclassified (5 sources) Clinical finding Onset: 8 04-12-2020 Comment on above: done at [facility] [place]. referred /dr nguyễn (cardiology) for heart cath with rrp Unclassified (3 sources) Continuous positive airway pressure ventilation treatment 06-26-2022 Unclassified (3 sources) Drug therapy finding 06-26-2022 Unclassified (3 sources) Eye glasses, device (physical object) 06-26-2022 Unclassified (2 sources) For repeat BMP as well as CBC with differential Varicose veins of lower extremity (7 sources) Skin ulcer; Translations: [Varicose veins of unspecified lower extremity with ulcer of unspecified site] Onset: 5 07-26-2025 Episodic Past or Other Problems Problem Classification Problem Date Documented Date Episodic/Chronic Anal and rectal conditions (20 sources) Anal fissure; Translations: [Anal fissure, unspecified] Onset: 06-19-2006 Resolved: 10-09-2010 10-09-2010 Episodic Chronic obstructive pulmonary disease and bronchiectasis (20 sources) Acute exacerbation of chronic obstructive airways disease; Translations: [Chronic obstructive pulmonary disease with (acute) exacerbation] Onset: 08-07-2016 Resolved: 06-01-2020 06-01-2020 Chronic Mycoses (20 sources) Candidal intertrigo; Translations: [Candidiasis of skin and nail] Onset: 11-05-2024 11-05-2024 Episodic Occlusion or stenosis of precerebral arteries (20 sources) Carotid artery stenosis; Translations: [Carotid artery occlusion] Onset: 01-31-2009 Resolved: 01-26-2019 06-26-2022 Chronic Other aftercare (20 sources) Long-term current use of drug therapy; Translations: [Encounter for therapeutic drug level monitoring] Onset: 07-30-2016 07-30-2016 Episodic Other lower respiratory disease (20 sources) Chronic cough; Translations: [Chronic cough] Onset: 06-01-2020 04-25-2021 Episodic Other lower respiratory disease (2 sources) Shortness of breath; Translations: [Shortness of breath] Onset: 12-13-2024 Episodic Other skin disorders (20 sources) Mass of skin; Translations: [Localized swelling, mass and lump, unspecified] Onset: 10-26-2010 Resolved: 05-13-2013 11-12-2021 Episodic Other upper respiratory disease (7 sources) Bleeding from nose; Translations: [Epistaxis] Onset: 06-12-2022 Episodic Other upper respiratory disease (20 sources) Epistaxis; Translations: [Epistaxis] Onset: 06-12-2022 Resolved: 05-09-2023 06-12-2022 Episodic Pleurisy; pneumothorax; pulmonary collapse (20 sources) Pleural effusion; Translations: [Pleural effusion, not elsewhere classified] Onset: 12-25-2006 Resolved: 10-09-2010 10-09-2010 Episodic Pneumonia (except that caused by tuberculosis or sexually transmitted disease) (7 sources) Bilateral pneumonia; Translations: [Pneumonia, unspecified organism] Onset: 04-01-2025 01-24-2025 Episodic Residual codes; unclassified (20 sources) Disturbance in sleep behavior; Translations: [Sleep disorder, unspecified] Onset: 01-31-2009 Resolved: 09-12-2015 09-12-2015 Episodic Screening and history of mental health and substance abuse codes (5 sources) Ex-very heavy cigarette smoker (40+/day); Translations: [Encounter for screening for depression] Onset: 11-05-2024 06-26-2022 Episodic Unclassified (20 sources) Abnormal result of other cardiovascular function study; Translations: [Raised prostate specific antigen] Onset: 02-01-2009 Resolved: 01-19-2018 01-19-2018 Episodic Results Test Name Value Interpretation Reference Range Facility [facility] 09-20-2025 [facility] Telephone (INTMWS) FEDERICO HU ([id number]) 1935 M Date Time Provider Department 09/20/25 NITHIN ACEVEDO INTWS During your visit today, we recorded the following information about you: Bear Good RN 09/20/2025 10:30 AM Signed Moises- [facility]- reporting SN POC: did re-cert today and will see pt 1 x week for 3 weeks for continued issues: weight gain, kidney function, CHF. Pt has an appt with nephrology and cardiology in September. Pt has lower extremity edema: 3 venous stasis ulcers from blisters busting open. Moises is cleaning with soap and water, applying xeroform and gauze, then brian wraps for compression. No call back needed. Allergies As of Date: 09/20/2025 Noted Allergy Reaction FEXOFENADINE 11/05/2024 16 - Unknown PROSCAR (FINASTERIDE) 07/02/2010 2 - Rash Date Reviewed: 07/26/2025 Reviewed by: Daxa Morin LPN - Fully Assessed Reason for Visit: [facility] SN POC [Other] Prescriptions as of 09/20/2025 - furosemide (LASIX) 40 mg tablet Take 2 tablets by mouth two times a day. - metOLazone (ZAROXOLYN) 10 mg tablet Take 1 tablet by mouth once daily for 7 days. - nystatin (MYCOSTATIN) powder Apply 1 application to affected area two times a day. - dapagliflozin propanediol (FARXIGA) 5 mg tablet Take 5 mg by mouth daily at bedtime. - doxazosin (CARDURA) 2 mg tablet Take 1 tablet by mouth daily at bedtime. - Blood-Glucose Meter,Continuous (DEXCOM G7 REGIONAL AGRONOMIST) [facility] Dx: E11.49. ?Insulin: Yes. Use to check blood sugars at least 4 times a day - Blood-Glucose Sensor (DEXCOM G7 SENSOR) [facility] Dx: E11.49. ?Insulin: Yes. Apply new sensor every ten (10) days - CPAP/BIPAP/OTHER Type .CPAPSettings into a note to see current settings/supplies/DME information. - clotrimazole (LOTRIMIN) 1 % cream Apply 1 application to affected area two times a day. - triamcinolone acetonide (KENALOG) 0.1 % cream Apply 1 application to affected area two times a day. Apply sparingly to top of ears - apixaban (ELIQUIS) 2.5 mg tab(s) Take 1 tablet by mouth twice daily. Per Cardiology. - sacubitril-valsartan (ENTRESTO) 97-103 mg tablet Take 1 tablet by mouth two times a day. Per Cardiology. - atorvastatin (LIPITOR) 40 mg tablet Take 40 mg by mouth once daily. - nitroglycerin sublingual (NITROQUICK) 0.4 mg SL tablet Dissolve 1 tablet under the tongue as needed for Chest Pain. If no pain relief call 911. Problem List As Of Date 09/20/2025 Noted Resolved Morbid obesity with BMI of 45.0-49.9, adult (HC* Type 2 diabetes mellitus with neurological maricarmen* Essential hypertension [I10] Anal fissure [K60.2] 06/19/2006 10/09/2010 Shortness of breath [R06.02] 10/23/2006 10/09/2010 Unspecified pleural effusion [J90] 12/25/2006 10/09/2010 Coronary atherosclerosis [I25.10] 01/03/2009 Hyperlipemia [E78.5] 01/03/2009 Occlusion and stenosis of carotid artery withou*01/31/2009 01/26/2019 Unspecified Sleep Disturbance [G47.9] 01/31/2009 09/12/2015 Elevated prostate specific antigen (PSA) [R97.2*02/01/2009 01/19/2018 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] 11/30/2009 10/09/2010 BPH with obstruction/lower urinary tract sympto*08/08/2010 Skin mass [R22.9] 10/26/2010 05/13/2013 Anemia [D64.9] 05/12/2013 OA (osteoarthritis) of knee [M17.9] 09/23/2014 Atrial fibrillation (HCC) [I48.91] 05/13/2016 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] 07/30/2016 RBBB (right bundle branch block) [I45.10] 07/30/2016 Encounter for monitoring anti-arrhythmic therap*07/30/2016 COPD with exacerbation (HCC) [J44.1] 08/07/2016 06/01/2020 CKD (chronic kidney disease) stage 3, GFR 30-59*09/20/2017 12/15/2018 CKD (chronic kidney disease) stage 4, GFR 15-29*07/22/2018 Chronic diastolic CHF (congestive heart failure*07/22/2018 Chronic cough [R05.3] 06/01/2020 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] 11/02/2020 Hypercalcemia [E83.52] 11/23/2021 Wound of left leg [S81.802A] 06/12/2022 05/09/2023 Recurrent epistaxis [R04.0] 06/12/2022 05/09/2023 Candidal intertrigo [B37.2] 11/05/2024 HELDER on CPAP [G47.33] 09/19/2016 VHD (valvular heart disease) [I38] 02/15/[address] [R93.89] 02/15/2025 MGUS (monoclonal gammopathy of unknown signific*02/15/2025 Thrombocytopenia [D69.6] 07/26/2025 Stasis ulcer (HCC) [I83.009, L97.909] 07/26/2025 Pressure injury of left buttock, stage 1 [L89.3*07/26/2025 Encounter Status:Closed by Bear OGOD on 09/20/25 Normal [facility] 09-13-2025 [facility] Telephone (INTMWS) FEDERICO HU ([id number]) 1935 M Date Time Provider Department 09/13/25 NITHIN ACEVEDO INTMWS During your visit today, we recorded the following information about you: Krissy Amor RN 09/13/2025 4:40 PM Addendum Chepe with [facility] calls to request nephrology referral be sent to Dr. Mendoza. Chepe reports patient was not sure provider he was originally referred to but they were not accepting new patients. Faxed per request to Dr. Mendoza at [phone]. Call placed to patient and spoke to spouse. Contact information given for Dr. Mendoza's hooks location. Aliza aware to call back for any further assistance needed. See other TE from 09/12/2025 for further request. Krissy Amor RN Allergies As of Date: 09/13/2025 Noted Allergy Reaction FEXOFENADINE 11/05/2024 16 - Unknown PROSCAR (FINASTERIDE) 07/02/2010 2 - Rash Date Reviewed: 07/26/2025 Reviewed by: Daxa Morin, HEELER - Fully Assessed Reason for Visit: Consult [502] Prescriptions as of 09/13/2025 - nystatin (MYCOSTATIN) powder Apply 1 application to affected area two times a day. - dapagliflozin propanediol (FARXIGA) 5 mg tablet Take 5 mg by mouth daily at bedtime. - furosemide (LASIX) 40 mg tablet Take 2 tablets by mouth every morning AND 1 tablet every evening. - doxazosin (CARDURA) 2 mg tablet Take 1 tablet by mouth daily at bedtime. - Blood-Glucose Meter,Continuous (DEXCOM G7 REGIONAL AGRONOMIST) [facility] Dx: E11.49. ?Insulin: Yes. Use to check blood sugars at least 4 times a day - Blood-Glucose Sensor (DEXCOM G7 SENSOR) [facility] Dx: E11.49. ?Insulin: Yes. Apply new sensor every ten (10) days - CPAP/BIPAP/OTHER Type .CPAPSettings into a note to see current settings/supplies/DME information. - clotrimazole (LOTRIMIN) 1 % cream Apply 1 application to affected area two times a day. - triamcinolone acetonide (KENALOG) 0.1 % cream Apply 1 application to affected area two times a day. Apply sparingly to top of ears - apixaban (ELIQUIS) 2.5 mg tab(s) Take 1 tablet by mouth twice daily. Per Cardiology. - sacubitril-valsartan (ENTRESTO) 97-103 mg tablet Take 1 tablet by mouth two times a day. Per Cardiology. - atorvastatin (LIPITOR) 40 mg tablet Take 40 mg by mouth once daily. - nitroglycerin sublingual (NITROQUICK) 0.4 mg SL tablet Dissolve 1 tablet under the tongue as needed for Chest Pain. If no pain relief call 911. 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* Essential hypertension [I10] Anal fissure [K60.2] 06/19/2006 10/09/2010 Shortness of breath [R06.02] 10/23/2006 10/09/2010 Unspecified pleural effusion [J90] 12/25/2006 10/09/2010 Coronary atherosclerosis [I25.10] 01/03/2009 Hyperlipemia [E78.5] 01/03/2009 Occlusion and stenosis of carotid artery withou*01/31/2009 01/26/2019 Unspecified Sleep Disturbance [G47.9] 01/31/2009 09/12/2015 Elevated prostate specific antigen (PSA) [R97.2*02/01/2009 01/19/2018 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] 11/30/2009 10/09/2010 BPH with obstruction/lower urinary tract sympto*08/08/2010 Skin mass [R22.9] 10/26/2010 05/13/2013 Anemia [D64.9] 05/12/2013 OA (osteoarthritis) of knee [M17.9] 09/23/2014 Atrial fibrillation (HCC) [I48.91] 05/13/2016 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] 07/30/2016 RBBB (right bundle branch block) [I45.10] 07/30/2016 Encounter for monitoring anti-arrhythmic therap*07/30/2016 COPD with exacerbation (HCC) [J44.1] 08/07/2016 06/01/2020 CKD (chronic kidney disease) stage 3, GFR 30-59*09/20/2017 12/15/2018 CKD (chronic kidney disease) stage 4, GFR 15-29*07/22/2018 Chronic diastolic CHF (congestive heart failure*07/22/2018 Chronic cough [R05.3] 06/01/2020 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] 11/02/2020 Hypercalcemia [E83.52] 11/23/2021 Wound of left leg [S81.802A] 06/12/2022 05/09/2023 Recurrent epistaxis [R04.0] 06/12/2022 05/09/2023 Candidal intertrigo [B37.2] 11/05/2024 HELDER on CPAP [G47.33] 09/19/2016 VHD (valvular heart disease) [I38] 02/15/[address] [R93.89] 02/15/2025 MGUS (monoclonal gammopathy of unknown signific*02/15/2025 Thrombocytopenia [D69.6] 07/26/2025 Stasis ulcer (HCC) [I83.009, L97.909] 07/26/2025 Pressure injury of left buttock, stage 1 [L89.3*07/26/2025 Encounter Status:[facility] (INTMWS[facility] FEDERICO HU ([id number]) 1935 M Date Time Provider Department 09/12/25 NITHIN ACEVEDO INTMWS During your visit today, we recorded the following information about you: Homer Smith LPN 09/12/2025 3:03 PM Signed Moises from [facility] Home Health calling wants to add a shelter visit for next week. Patient weight is up again today he is 364 pounds, fluid blisters on his legs again. Patient Care Associate Dr Strickland from [place] has him on Lasix 80 mg twice daily. Not getting much help from Patient Care Associate lately. Takes long time to get any response from that office. Nurse asking PCP if patient could be put on another or a different diuretic? He knows his kidney function is not great, Patient Care Associate wants him to see [facility]. Patient uses [facility] for his pharmacy. His next appt with Patient Care Associate is mid September.Patient is concerned since his weight is going in the wrong direction. Please advise Nithin Acevedo MD 09/15/2025 10:07 AM Signed The following approved medication requests have been transmitted electronically. Requested Prescriptions Signed Prescriptions Disp Refills furosemide (LASIX) 40 mg tablet Sig: Take 2 tablets by mouth two times a day. Authorizing Provider: NITHIN ACEVEDO metOLazone (ZAROXOLYN) 10 mg tablet 7 tablet 0 Sig: Take 1 tablet by mouth once daily for 7 days. Authorizing Provider: NITHIN ACEVEDO MD Merillat, Elizabeth, MA 09/15/2025 10:23 AM Signed Moises was notified and will contact patient Viet López MA Allergies As of Date: 09/12/2025 Noted Allergy Reaction FEXOFENADINE 11/05/2024 16 - Unknown PROSCAR (FINASTERIDE) 07/02/2010 2 - Rash Date Reviewed: 07/26/2025 Reviewed by: Daxa Morin LPN - Fully Assessed Reason for Visit: home health calling with questions [Other] Visit Diagnosis:Chronic diastolic CHF (congestive heart failure) (HCC) [I50.32] Order(s):furosemide (LASIX) 40 mg tabletTake 2 tablets by mouth two times a day.Disp: Rfl: metOLazone (ZAROXOLYN) 10 mg tabletTake 1 tablet by mouth once daily for 7 days.Disp: 7 tabletRfl: 0 Prescriptions as of 09/15/2025 - furosemide (LASIX) 40 mg tablet Take 2 tablets by mouth two times a day. - metOLazone (ZAROXOLYN) 10 mg tablet Take 1 tablet by mouth once daily for 7 days. - nystatin (MYCOSTATIN) powder Apply 1 application to affected area two times a day. - dapagliflozin propanediol (FARXIGA) 5 mg tablet Take 5 mg by mouth daily at bedtime. - doxazosin (CARDURA) 2 mg tablet Take 1 tablet by mouth daily at bedtime. - Blood-Glucose Meter,Continuous (DEXCOM G7 REGIONAL AGRONOMIST) [facility] Dx: E11.49. ?Insulin: Yes. Use to check blood sugars at least 4 times a day - Blood-Glucose Sensor (DEXCOM G7 SENSOR) [facility] Dx: E11.49. ?Insulin: Yes. Apply new sensor every ten (10) days - CPAP/BIPAP/OTHER Type .CPAPSettings into a note to see current settings/supplies/DME information. - clotrimazole (LOTRIMIN) 1 % cream Apply 1 application to affected area two times a day. - triamcinolone acetonide (KENALOG) 0.1 % cream Apply 1 application to affected area two times a day. Apply sparingly to top of ears - apixaban (ELIQUIS) 2.5 mg tab(s) Take 1 tablet by mouth twice daily. Per Cardiology. - sacubitril-valsartan (ENTRESTO) 97-103 mg tablet Take 1 tablet by mouth two times a day. Per Cardiology. - atorvastatin (LIPITOR) 40 mg tablet Take 40 mg by mouth once daily. - nitroglycerin sublingual (NITROQUICK) 0.4 mg SL tablet Dissolve 1 tablet under the tongue as needed for Chest Pain. If no pain relief call 911. 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* Essential hypertension [I10] Anal fissure [K60.2] 06/19/2006 10/09/2010 Shortness of breath [R06.02] 10/23/2006 10/09/2010 Unspecified pleural effusion [J90] 12/25/2006 10/09/2010 Coronary atherosclerosis [I25.10] 01/03/2009 Hyperlipemia [E78.5] 01/03/2009 Occlusion and stenosis of carotid artery withou*01/31/2009 01/26/2019 Unspecified Sleep Disturbance [G47.9] 01/31/2009 09/12/2015 Elevated prostate specific antigen (PSA) [R97.2*02/01/2009 01/19/2018 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] 11/30/2009 10/09/2010 BPH with obstruction/lower urinary tract sympto*08/08/2010 Skin mass [R22.9] 10/26/2010 05/13/2013 Anemia [D64.9] 05/12/2013 OA (osteoarthritis) of knee [M17.9] 09/23/2014 Atrial fibrillation (HCC) [I48.91] 05/13/2016 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 Normal [facility] Basic Metabolic Profile (BMP )on 09-06-2025 BUN/CRE 23.7 RATIO High 09-05 [facility] Comment on above: Performed By: #### L 503.7505, L500.2500, L100.0500 #### [facility] [address] [place], [address] Calcium [Mass/Vol] 10.6 mg/dL Normal 7.6-11.0 [facility] Comment on above: Performed By: #### L 503.7505, L500.2500, L100.0500 #### [facility] [address] [place], [address] Chloride [Moles/Vol] 105 mmol/L Normal 98-108 [facility] Comment on above: Performed By: #### L 503.7505, L500.2500, L100.0500 #### [facility] [address] [place], [address] CO2 [Moles/Vol] 26.7 mmol/L Normal 21.0-32.0 [facility] Comment on above: Performed By: #### L 503.7505, L500.2500, L100.0500 #### [facility] [address] [place], [address] Creatinine [Mass/Vol] 3.15 mg/dL High 0.70-1.20 [facility] Comment on above: Performed By: #### L 503.7505, L500.2500, L100.0500 #### [facility] [address] [place], [address] GAP 12 Normal 5-15 [facility] Comment on above: Performed By: #### L 503.7505, L500.2500, L100.0500 #### [facility] [address] [place], [address] GFR/1.73 sq M.predicted among non-blacks MDRD (S/P/Bld) [Vol rate/Area] 18 mL/min/{1.73_m2} Low >60 [facility] Comment on above: Result Comment: mL/m in/1.73m2 CKD-EPI Creatinine Equation (2020) Performed By: #### L 503.7505, L500.2500, L100.0500 #### [facility] [address] [place], [address] Glucose [Mass/Vol] 81 mg/dL Normal 70-99 [facility] Comment on above: Performed By: #### L 503.7505, L500.2500, L100.0500 #### [facility] [address] [place], [address] Potassium [Moles/Vol] 4.8 mmol/L Normal 3.3-5.1 [facility] Comment on above: Performed By: #### L 503.7505, L500.2500, L100.0500 #### [facility] [address] [place], [address] Sodium [Moles/Vol] 143 mmol/L Normal 133-145 [facility] Comment on above: Performed By: #### L 503.7505, L500.2500, L100.0500 #### [facility] [address] [place], [address] Urea nitrogen [Mass/Vol] 75 mg/dL High 4-19 [facility] Comment on above: Performed By: #### L 503.7505, L500.2500, L100.0500 #### [facility] [address] [place], [address] CBC-Complete Blood Cnt No Di ffon 09-06-2025 Erythrocyte distribution width (RBC) [Ratio] 14.9 % High 11.6-14.6 [facility] Comment on above: Performed By: #### L 503.7505, L500.2500, L100.0500 #### [facility] [address] [place], [address] Hematocrit (Bld) [Volume fraction] 28.2 % Low 40-54 [facility] Comment on above: Performed By: #### L 503.7505, L500.2500, L100.0500 #### [facility] [address] [place], [address] Hemoglobin (Bld) [Mass/Vol] 8.3 g/dL Low 13.0-16.5 [facility] Comment on above: Performed By: #### L 503.7505, L500.2500, L100.0500 #### [facility] [address] [place], [address] MCH (RBC) [Entitic mass] 24.9 pg Low 27.0-32.0 [facility] Comment on above: Performed By: #### L 503.7505, L500.2500, L100.0500 #### [facility] [address] [place], [address] MCHC (RBC) [Mass/Vol] 29.4 g/dL Low 32-36 [facility] Comment on above: Performed By: #### L 503.7505, L500.2500, L100.0500 #### [facility] [address] [place], [address] MCV (RBC) [Entitic vol] 84.4 fL Normal 80-94 [facility] Comment on above: Performed By: #### L 503.7505, L500.2500, L100.0500 #### [facility] [address] [place], [address] Platelet mean volume (Bld) [Entitic vol] 13.4 fL High 6.2-12.0 [facility] Comment on above: Performed By: #### L 503.7505, L500.2500, L100.0500 #### [facility] [address] [place], [address] Platelets (Bld) [#/Vol] 135 10*3/uL Low 150-450 [facility] Comment on above: Performed By: #### L 503.7505, L500.2500, L100.0500 #### [facility] [address] [place], [address] RBC (Bld) [#/Vol] 3.34 10*6/uL Low 4.6-6.2 [facility] Comment on above: Performed By: #### L 503.7505, L500.2500, L100.0500 #### [facility] [address] [place], [address] RDW SD 45.7 fl High 35.1-43.9 [facility] Comment on above: Performed By: #### L 503.7505, L500.2500, L100.0500 #### [facility] [address] [place], [address] WBC (Bld) [#/Vol] 5.9 10*3/uL Normal 4.4-11.0 [facility] Comment on above: Performed By: #### L 503.7505, L500.2500, L100.0500 #### [facility] [address] [place], [address] Pro- Brain NATRIURETIC PEPTI Sugey 09-06-2025 Natriuretic peptide B (Bld) [Mass/Vol] 3183 pg/mL High <=1800 [facility] Comment on above: Result Comment: Hear t Failure Unlikely: < 300 pg/mL Heart Failure Likely < 50 Years: > 450 pg/mL 50-75 Years: > 900 pg/mL >75 Years: > 1800 pg/mL Performed By: #### L 503.7505, L500.2500, L100.0500 #### [facility] [address] [place], [address] [facility] FEDERICO HU ([id number]) 1935 M Date Time Provider Department 08/30/25 NITHIN ACEVEDO INTMWS During your visit today, we recorded the following information about you: Homer Smith LPN 08/30/2025 2:04 PM Signed Moises from [facility] Home Health calling he is going to extend shelter visits 1 visit weekly for 2 weeks, has concerns with diuretics, has call to patient Patient Care Associate. He will fax form for PCP to sign, no need for return call. Nithin Acevedo MD 08/30/2025 2:26 PM Signed Okay. Noted. Allergies As of Date: 08/30/2025 Noted Allergy Reaction FEXOFENADINE 11/05/2024 16 - Unknown PROSCAR (FINASTERIDE) 07/02/2010 2 - Rash Date Reviewed: 07/26/2025 Reviewed by: Daxa Morin LPN - Fully Assessed Reason for Visit: home health calling [Other] Prescriptions as of 08/30/2025 - nystatin (MYCOSTATIN) powder Apply 1 application to affected area two times a day. - dapagliflozin propanediol (FARXIGA) 5 mg tablet Take 5 mg by mouth daily at bedtime. - furosemide (LASIX) 40 mg tablet Take 2 tablets by mouth every morning AND 1 tablet every evening. - doxazosin (CARDURA) 2 mg tablet Take 1 tablet by mouth daily at bedtime. - Blood-Glucose Meter,Continuous (DEXCOM G7 REGIONAL AGRONOMIST) [facility] Dx: E11.49. ?Insulin: Yes. Use to check blood sugars at least 4 times a day - Blood-Glucose Sensor (DEXCOM G7 SENSOR) [facility] Dx: E11.49. ?Insulin: Yes. Apply new sensor every ten (10) days - CPAP/BIPAP/OTHER Type .CPAPSettings into a note to see current settings/supplies/DME information. - clotrimazole (LOTRIMIN) 1 % cream Apply 1 application to affected area two times a day. - triamcinolone acetonide (KENALOG) 0.1 % cream Apply 1 application to affected area two times a day. Apply sparingly to top of ears - apixaban (ELIQUIS) 2.5 mg tab(s) Take 1 tablet by mouth twice daily. Per Cardiology. - sacubitril-valsartan (ENTRESTO) 97-103 mg tablet Take 1 tablet by mouth two times a day. Per Cardiology. - atorvastatin (LIPITOR) 40 mg tablet Take 40 mg by mouth once daily. - nitroglycerin sublingual (NITROQUICK) 0.4 mg SL tablet Dissolve 1 tablet under the tongue as needed for Chest Pain. If no pain relief call 911. 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* Essential hypertension [I10] Anal fissure [K60.2] 06/19/2006 10/09/2010 Shortness of breath [R06.02] 10/23/2006 10/09/2010 Unspecified pleural effusion [J90] 12/25/2006 10/09/2010 Coronary atherosclerosis [I25.10] 01/03/2009 Hyperlipemia [E78.5] 01/03/2009 Occlusion and stenosis of carotid artery withou*01/31/2009 01/26/2019 Unspecified Sleep Disturbance [G47.9] 01/31/2009 09/12/2015 Elevated prostate specific antigen (PSA) [R97.2*02/01/2009 01/19/2018 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] 11/30/2009 10/09/2010 BPH with obstruction/lower urinary tract sympto*08/08/2010 Skin mass [R22.9] 10/26/2010 05/13/2013 Anemia [D64.9] 05/12/2013 OA (osteoarthritis) of knee [M17.9] 09/23/2014 Atrial fibrillation (HCC) [I48.91] 05/13/2016 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] 07/30/2016 RBBB (right bundle branch block) [I45.10] 07/30/2016 Encounter for monitoring anti-arrhythmic therap*07/30/2016 COPD with exacerbation (HCC) [J44.1] 08/07/2016 06/01/2020 CKD (chronic kidney disease) stage 3, GFR 30-59*09/20/2017 12/15/2018 CKD (chronic kidney disease) stage 4, GFR 15-29*07/22/2018 Chronic diastolic CHF (congestive heart failure*07/22/2018 Chronic cough [R05.3] 06/01/2020 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] 11/02/2020 Hypercalcemia [E83.52] 11/23/2021 Wound of left leg [S81.802A] 06/12/2022 05/09/2023 Recurrent epistaxis [R04.0] 06/12/2022 05/09/2023 Candidal intertrigo [B37.2] 11/05/2024 HELDER on CPAP [G47.33] 09/19/2016 VHD (valvular heart disease) [I38] 02/15/[address] [R93.89] 02/15/2025 MGUS (monoclonal gammopathy of unknown signific*02/15/2025 Thrombocytopenia [D69.6] 07/26/2025 Stasis ulcer (HCC) [I83.009, L97.909] 07/26/2025 Pressure injury of left buttock, stage 1 [L89.3*07/26/2025 Encounter Status:Closed by NITHIN ACEVEDO on 08/30/25 [facility] 08-15-2025 [facility] Telephone ([employer]) FEDERICO HU ([id number]) 1935 M Date Time Provider Department 08/15/25 NITHIN ACEVEDO COUM During your visit today, we recorded the following information about you: Ana Valderrama, CEFERINO 08/15/2025 10:21 AM Signed Ellen COONEY with [facility] is calling with an FYI that patients blood pressure is just slight low at 112/49 and 115/47 and that patient has had a 6lb weight gain in the past week. therapist note that she let Vaughn his [facility] nurse know and he will recheck tomorrow and call either pcp or commutator operator with update. Allergies As of Date: 08/15/2025 Noted Allergy Reaction FEXOFENADINE 11/05/2024 16 - Unknown PROSCAR (FINASTERIDE) 07/02/2010 2 - Rash Date Reviewed: 07/26/2025 Reviewed by: Daxa Morin LPN - Fully Assessed Reason for Visit: FYI-No Action Needed [265] Prescriptions as of 08/15/2025 - nystatin (MYCOSTATIN) powder Apply 1 application to affected area two times a day. - dapagliflozin propanediol (FARXIGA) 5 mg tablet Take 5 mg by mouth daily at bedtime. - furosemide (LASIX) 40 mg tablet Take 2 tablets by mouth every morning AND 1 tablet every evening. - doxazosin (CARDURA) 2 mg tablet Take 1 tablet by mouth daily at bedtime. - Blood-Glucose Meter,Continuous (DEXCOM G7 REGIONAL AGRONOMIST) [facility] Dx: E11.49. ?Insulin: Yes. Use to check blood sugars at least 4 times a day - Blood-Glucose Sensor (DEXCOM G7 SENSOR) [facility] Dx: E11.49. ?Insulin: Yes. Apply new sensor every ten (10) days - CPAP/BIPAP/OTHER Type .CPAPSettings into a note to see current settings/supplies/DME information. - clotrimazole (LOTRIMIN) 1 % cream Apply 1 application to affected area two times a day. - triamcinolone acetonide (KENALOG) 0.1 % cream Apply 1 application to affected area two times a day. Apply sparingly to top of ears - apixaban (ELIQUIS) 2.5 mg tab(s) Take 1 tablet by mouth twice daily. Per Cardiology. - sacubitril-valsartan (ENTRESTO) 97-103 mg tablet Take 1 tablet by mouth two times a day. Per Cardiology. - atorvastatin (LIPITOR) 40 mg tablet Take 40 mg by mouth once daily. - nitroglycerin sublingual (NITROQUICK) 0.4 mg SL tablet Dissolve 1 tablet under the tongue as needed for Chest Pain. If no pain relief call 911. 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* Essential hypertension [I10] Anal fissure [K60.2] 06/19/2006 10/09/2010 Shortness of breath [R06.02] 10/23/2006 10/09/2010 Unspecified pleural effusion [J90] 12/25/2006 10/09/2010 Coronary atherosclerosis [I25.10] 01/03/2009 Hyperlipemia [E78.5] 01/03/2009 Occlusion and stenosis of carotid artery withou*01/31/2009 01/26/2019 Unspecified Sleep Disturbance [G47.9] 01/31/2009 09/12/2015 Elevated prostate specific antigen (PSA) [R97.2*02/01/2009 01/19/2018 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] 11/30/2009 10/09/2010 BPH with obstruction/lower urinary tract sympto*08/08/2010 Skin mass [R22.9] 10/26/2010 05/13/2013 Anemia [D64.9] 05/12/2013 OA (osteoarthritis) of knee [M17.9] 09/23/2014 Atrial fibrillation (HCC) [I48.91] 05/13/2016 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] 07/30/2016 RBBB (right bundle branch block) [I45.10] 07/30/2016 Encounter for monitoring anti-arrhythmic therap*07/30/2016 COPD with exacerbation (HCC) [J44.1] 08/07/2016 06/01/2020 CKD (chronic kidney disease) stage 3, GFR 30-59*09/20/2017 12/15/2018 CKD (chronic kidney disease) stage 4, GFR 15-29*07/22/2018 Chronic diastolic CHF (congestive heart failure*07/22/2018 Chronic cough [R05.3] 06/01/2020 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] 11/02/2020 Hypercalcemia [E83.52] 11/23/2021 Wound of left leg [S81.802A] 06/12/2022 05/09/2023 Recurrent epistaxis [R04.0] 06/12/2022 05/09/2023 Candidal intertrigo [B37.2] 11/05/2024 HELDER on CPAP [G47.33] 09/19/2016 VHD (valvular heart disease) [I38] 02/15/[address] [R93.89] 02/15/2025 MGUS (monoclonal gammopathy of unknown signific*02/15/2025 Thrombocytopenia [D69.6] 07/26/2025 Stasis ulcer (HCC) [I83.009, L97.909] 07/26/2025 Pressure injury of left buttock, stage 1 [L89.3*07/26/2025 Encounter Status:Closed by GARRICK ANA on 08/15/25 [facility] FEDERICO HU ([id number]) 1935 M Date Time Provider Department 08/10/25 KATHERIN MCKINNON INTMWS During your visit today, we recorded the following information about you: Homer Smith LPN 08/10/2025 3:14 PM Signed Moises from [facility] Home Health calling would like to extend shelter visits beginning next week, 1 visit weekly for 3 weeks. 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 He has wound care orders. Asking for new verbal orders for the shelter visits. Patient has large abdomen and has red, excoriated area under abdominal fold. Asking for Nystatin powder rx to be sent to [facility] pharmacy. Please advise Katherin Mckinnon APRN.[facility] 08/10/2025 3:53 PM Signed Mojgan for shelter visits Katherin Mckinnon APRN.Daxa Paul LPN 08/10/2025 4:05 PM Signed Moises/[facility] notified. Daxa Morin LPN Allergies As of Date: 08/10/2025 Noted Allergy Reaction FEXOFENADINE 11/05/2024 16 - Unknown PROSCAR (FINASTERIDE) 07/02/2010 2 - Rash Date Reviewed: 07/26/2025 Reviewed by: Daxa Morin LPN - Fully Assessed Reason for Visit: requesting verbal orders, and rx [Other] Order(s):nystatin (MYCOSTATIN) powderApply 1 application to affected area two times a day.Disp: 30 gRfl: 1 Prescriptions as of 08/10/2025 - nystatin (MYCOSTATIN) powder Apply 1 application to affected area two times a day. - dapagliflozin propanediol (FARXIGA) 5 mg tablet Take 5 mg by mouth daily at bedtime. - furosemide (LASIX) 40 mg tablet Take 2 tablets by mouth every morning AND 1 tablet every evening. - doxazosin (CARDURA) 2 mg tablet Take 1 tablet by mouth daily at bedtime. - Blood-Glucose Meter,Continuous (DEXCOM G7 REGIONAL AGRONOMIST) [facility] Dx: E11.49. ?Insulin: Yes. Use to check blood sugars at least 4 times a day - Blood-Glucose Sensor (DEXCOM G7 SENSOR) [facility] Dx: E11.49. ?Insulin: Yes. Apply new sensor every ten (10) days - CPAP/BIPAP/OTHER Type .CPAPSettings into a note to see current settings/supplies/DME information. - clotrimazole (LOTRIMIN) 1 % cream Apply 1 application to affected area two times a day. - triamcinolone acetonide (KENALOG) 0.1 % cream Apply 1 application to affected area two times a day. Apply sparingly to top of ears - apixaban (ELIQUIS) 2.5 mg tab(s) Take 1 tablet by mouth twice daily. Per Cardiology. - sacubitril-valsartan (ENTRESTO) 97-103 mg tablet Take 1 tablet by mouth two times a day. Per Cardiology. - atorvastatin (LIPITOR) 40 mg tablet Take 40 mg by mouth once daily. - nitroglycerin sublingual (NITROQUICK) 0.4 mg SL tablet Dissolve 1 tablet under the tongue as needed for Chest Pain. If no pain relief call 911. 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* Essential hypertension [I10] Anal fissure [K60.2] 06/19/2006 10/09/2010 Shortness of breath [R06.02] 10/23/2006 10/09/2010 Unspecified pleural effusion [J90] 12/25/2006 10/09/2010 Coronary atherosclerosis [I25.10] 01/03/2009 Hyperlipemia [E78.5] 01/03/2009 Occlusion and stenosis of carotid artery withou*01/31/2009 01/26/2019 Unspecified Sleep Disturbance [G47.9] 01/31/2009 09/12/2015 Elevated prostate specific antigen (PSA) [R97.2*02/01/2009 01/19/2018 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] 11/30/2009 10/09/2010 BPH with obstruction/lower urinary tract sympto*08/08/2010 Skin mass [R22.9] 10/26/2010 05/13/2013 Anemia [D64.9] 05/12/2013 OA (osteoarthritis) of knee [M17.9] 09/23/2014 Atrial fibrillation (HCC) [I48.91] 05/13/2016 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] 07/30/2016 RBBB (right bundle branch block) [I45.10] 07/30/2016 Encounter for monitoring anti-arrhythmic therap*07/30/2016 COPD with exacerbation (HCC) [J44.1] 08/07/2016 06/01/2020 CKD (chronic kidney disease) stage 3, GFR 30-59*09/20/2017 12/15/2018 CKD (chronic kidney disease) stage 4, GFR 15-29*07/22/2018 Chronic diastolic CHF (congestive heart failure*07/22/2018 Chronic cough [R05.3] 06/01/2020 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] 11/02/2020 Hypercalcemia [E83.52] 11/23/2021 Wound of left leg [S81.802A] 06/12/2022 05/09/2023 Recurrent epistaxis [R04.0] 06/12/2022 05/09/2023 Candidal intertrigo [B37.2] 11/05/2024 HELDER on CPAP [G47.33] 09/19/2016 VHD (valvular heart disease) [I38] 02/15/[address] [R93.89] 02/15/2025 MGUS (monoclonal gammopathy of unknown signific*02/15/2025 Thrombocytopenia [D69.6] 07/26/2025 Stasis ulcer (HCC) [I83.009, L97.909] 07/26/2025 Pressure injury of left buttock, stage 1 [L89.3*07/26/2025 Prescriptions ordered this encounter Disp Refills Start End NYSTATIN 100,000 UNIT/GRAM TOPICAL P* 30 g 1 08/10/2025 Route: TOP Sig: Apply 1 application to affected area two times a day. Encounter (more content not included)... Normal [facility] FERRITIN [CCL]on 08-10-2025 Ferritin [Mass/Vol] 32.2 ng/mL Normal 30.3-565.[address] [facility] Comment on above: Result Comment: [facility] [address] [place] [address] Joe Goldstein III, M.D. [id number] Performed By: #### 2 07786 #### [facility],[address] [place] [address] BMP with eGFRon 08-09-2025 AGE 89 years Normal [facility] Comment on above: Performed By: #### 2 63727 #### [facility],[address] [place], [place] [id number] Anion gap [Moles/Vol] 14 mmol/L Normal 10 - 20 [facility] Comment on above: Performed By: #### 2 34568 #### [facility],[address] [place] [address] BMP with eGFR Normal [facility] Comment on above: Result Comment: BASI C METABOLIC PANEL Performed By: #### 2 37191 #### [facility],[address] [place], [place] [id number] Calcium [Mass/Vol] 10.2 mg/dL High 8.5 - 10.[address] [facility] Comment on above: Performed By: #### 2 24720 #### [facility],[address] [place] [address] Chloride [Moles/Vol] 103 mmol/L Normal 98 - [address] [facility] Comment on above: Performed By: #### 2 93437 #### [facility],[address] [place] [address] CO2 [Moles/Vol] 28.5 mmol/L Normal 21.0 - 32.[address] [facility] Comment on above: Performed By: #### 2 60281 #### [facility],[address] [place] [address] Creatinine [Mass/Vol] 3.64 mg/dL High 0.70 - 1.30 [facility] Comment on above: Performed By: #### 2 86703 #### [facility],[address] [place] [address] eGFR 16 ML/MINUTE Low 60 - [address] [facility] Comment on above: Performed By: #### 2 60357 #### [facility],[address] [place] [address] eGFR(AA) 19 ML/MINUTE Low 60 - [address] [facility] Comment on above: Result Comment: ACCO RDING TO THE NATIONAL KIDNEY DISEASE EDUCATION PROGRAM(NKDE), A NORMAL eGFR IS A VALUE GREATER THAN OR EQUAL TO 60 ML/MIN/1.73 SQ METERS. CHRONIC KIDNEY DISEASE: <60mL/MIN/1.73 SQ METERS KIDNEY FAILURE: <15mL/MIN/1.73 SQ METERS THIS TEST SHOULD ONLY BE USED FOR PATIENTS 18 YEARS OF AGE AND OLDER. Performed By: #### 2 01854 #### [facility],[address] [place], [place] [id number] Glucose [Mass/Vol] 143 mg/dL High 74 - [address] [facility] Comment on above: Performed By: #### 2 80945 #### [place] [id number] Potassium [Moles/Vol] 4.8 mmol/L Normal 3.5 - 5.1 [facility] Comment on above: Performed By: #### 2 30278 #### [facility],[address] [place] [address] Sodium [Moles/Vol] 141 mmol/L Normal 136 - [address] [facility] Comment on above: Performed By: #### 2 98251 #### [facility],[address] [place] [address] Urea nitrogen [Mass/Vol] 76 mg/dL High 7 - [address] [facility] Comment on above: Performed By: #### 2 41898 #### [facility],[address] [place] [address] CBC + DIFFon 08-09-2025 Baso # 0.05 x10EE3/UL Normal 0.00 - 0.[address] [facility] Comment on above: Performed By: #### 2 71610 #### [facility],[address] [place] [address] Basophils/100 WBC (Bld) 0.8 % Normal 0.0 - 2.[address] [facility] Comment on above: Performed By: #### 2 90733 #### [facility],[address] [place] [address] CBC + DIFF Normal [facility] Comment on above: Result Comment: CBC- COMPLETE BLOOD COUNT Performed By: #### 2 55847 #### [facility],[address] [place] [address] EO # 0.18 x10EE3/UL Normal 0.00 - 0.[address] [facility] Comment on above: Performed By: #### 2 61815 #### [facility],[address] [place] [address] Eosinophils/100 WBC (Bld) 2.7 % Normal 0.0 - 7.[address] [facility] Comment on above: Performed By: #### 2 75438 #### [facility],[address] [place] [address] Erythrocyte distribution width (RBC) [Ratio] 14.9 % Normal 12.0 - 15.[address] [facility] Comment on above: Performed By: #### 2 24629 #### [facility],[address] [place] [address] Hematocrit (Bld) [Volume fraction] 28.7 % Low 40.0 - 52.[address] [facility] Comment on above: Performed By: #### 2 54009 #### [facility],[address] [place] [address] Hemoglobin (Bld) [Mass/Vol] 9.0 g/dL Low 13.0 - 17.[address] [facility] Comment on above: Performed By: #### 2 86935 #### [facility],[address] [place] [address] Lymph # 0.77 x10EE3/UL Low 0.80 - 2.[address] [facility] Comment on above: Performed By: #### 2 59776 #### [facility],[address] [place] [address] Lymphocytes/100 WBC (Bld) 11.6 % Low 20.0 - 45.[address] [facility] Comment on above: Performed By: #### 2 50274 #### [facility],[address] [place] [address] MANUAL DIFF N/A Normal [facility] Comment on above: Performed By: #### 2 64806 #### [facility],[address] [place] [address] MCH (RBC) [Entitic mass] 26 pg Low 27 - [address] [facility] Comment on above: Performed By: #### 2 75160 #### [facility],[address] [place] [address] MCHC 31 X10 3 Low 32 - [address] [facility] Comment on above: Performed By: #### 2 13462 #### [facility],[address] [place] [address] 12055 MCV (RBC) [Entitic vol] 82 fL Normal 81 - [address] [facility] Comment on above: Performed By: #### 2 59171 #### [facility],[address] [place] [address] [place] # 0.76 x10EE3/UL Normal 0.20 - 1.[address] [facility] Comment on above: Performed By: #### 2 24526 #### [facility],[address] [place] [address] 31668 MONOS % 11.6 % High 0.0 - 10.[address] [facility] Comment on above: Performed By: #### 2 12790 #### [facility],[address] [place] [address] Morphology Mumtaz (Bld) [Interp] N/A Normal [facility] Comment on above: Performed By: #### 2 46842 #### [facility],[address] [place] [address] Neut # 4.85 x10EE3/UL Normal 1.50 - 7.[address] [facility] Comment on above: Performed By: #### 2 70733 #### [facility],[address] [place] [address] Neutrophils/100 WBC (Bld) 73.4 % Normal 46.0 - 76.[address] [facility] Comment on above: Performed By: #### 2 10601 #### [facility],[address] [place] [address] PLATELET 171 x10EE3/UL Normal 150 - [address] [facility] Comment on above: Performed By: #### 2 36372 #### [facility],[address] [place] [address] 64577 Platelet mean volume (Bld) [Entitic vol] 11.1 fL High 6.4 - 10.[address] [facility] Comment on above: Result Comment: AUTO MATED DIFFERENTIAL Performed By: #### 2 82229 #### [facility],[address] [place] [address]109 RBC 3.50 x 10EE6/UL Low 4.50 - 6.[address] [facility] Comment on above: Performed By: #### 2 88038 #### [facility],[address] [place] [address] 46071 WBC 6.6 x 10EE3/UL Normal 4.5 - 10.[address] [facility] Comment on above: Performed By: #### 2 13225 #### [facility],[address] [place] [address] Ferritin SerPl-mCncon 2024 Ferritin [Mass/Vol] 32.2 ng/mL Normal 30.3-565.7 [facility] Comment on above: Order Comment: Speci men Type: BLOOD SPECIMEN Ordering Facility: [facility] Address: [address] [place] [address] Performed By: #### 2 276-4 #### [facility] CLIA [id number] [address] [place] [address] [place] [facility] IRON AND TIBCon 08-09-2025 %SATURATION 10 % Normal [facility] Comment on above: Performed By: #### 2 78277 #### [facility],[address] [place] [address] Iron [Mass/Vol] 32 ug/dL Low 65 - [address] [facility] Comment on above: Performed By: #### 2 01404 #### [facility],[address] [place] [address] 15100 TIBC 314 ug/dl Normal 250 - [address] [facility] Comment on above: Performed By: #### 2 00093 #### [facility],[address] [place] [address] 43260 UIBC 282 ug/dL Normal 155 - [address] [facility] Comment on above: Performed By: #### 2 73229 #### [facility],[address] [place] [address] NT-proBNPon 08-09-2025 Natriuretic peptide B (Bld) [Mass/Vol] 3185 pg/mL High 0 - [address] [facility] Comment on above: Performed By: #### 2 69552 #### [facility],[address] [place] [address] John 08-05-2025 CNPN Telephone (INTMWS) FEDERICO HU ([id number]) 1935 M Date Time Provider Department 08/05/25 NITHIN ACEVEDO INTMWS During your visit today, we recorded the following information about you: Deisi Morelos RN 08/05/2025 3:31 PM Signed Moises from [facility] calls and states that when patient was admitted to home health services a couple of weeks ago patient's weight was 360 pounds. At hospital discharge patient's lasix was increased. On Friday08/02/2025 patient's weight was 350 and on 08/05/2025 patient's weight was up to 354. Patient does have fine crackles to right lower base and a water blister to right foot. Patient does not feel any more short of breath than normal. Patient had labs done on 08/02/2025. Patient's kidney function is decreased. 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 Strickland on Friday08/09/2025 View External Labs - Chemistry [ID [id number]] Dinora Melissa MD 08/06/2025 2:05 PM Signed Reviewed labs. BUN and Creatinine up to 63 and 3.12--has been up in this range before. Electrolytes fine. ,HgA1C 6.5 CBC with H/H 8.4/28.9 with microcytic indices. Platelets 128 Note that in hospital, 07/23 labs showed H/H 8.0/26.5, so is stable to improved. And BUN and Creatinine were 64 and 3.34 also on 07/23 So recent labs were improved compared to 07/23 Since patient asymptomatic, may continue to monitor symptoms. Stay on same meds. Progress report Friday Would make sure patient is making sure to maintain adequate hydration while using diuretics to improve leg swelling. Are they wrapping legs to help with leg swelling? If water blister were to open up and have trouble with weeping, needs to control swelling and weeping with dressings to absorb fluid and compression to get open area to stop weeping by controlling the swelling. Noted has cardiology appointment Friday Daxa Morin LPN 08/08/2025 10:19 AM Signed Left message for Moises/[facility] to call and speak to nurse. Krissy Preciado LPN, RN 08/08/2025 2:41 PM Signed Moises with [facility] calls back and provider message below reviewed. Moises will see patient Friday. Patient has all supplies in the home for wound care and swelling. Moises reports that one of the blisters on right foot did open up but area is being covered and no concerns right now. Moises reports his biggest concern was the weight gain but they did a phone check yesterday and weight remained at 354 lbs. Moises will call back after seeing patient on Friday if anything further is needed. Patient scheduled with cardiology tomorrow. CEFERINO Rodriguez Liza D, MD 08/08/2025 8:00 PM Signed Noted. Weight stable and no issues with wound needing further evaluation and treatment right now. Will await cardiology follow up and update from Moises on Friday Daxa Morin LPN 08/09/2025 9:29 AM Signed Moises given below recommendation, verbalized understanding. Daxa Morin LPN Allergies As of Date: 08/05/2025 Noted Allergy Reaction FEXOFENADINE 11/05/2024 16 - Unknown PROSCAR (FINASTERIDE) 07/02/2010 2 - Rash Date Reviewed: 07/26/2025 Reviewed by: Daxa Morin LPN - Fully Assessed Reason for Visit: Patient Update [1234] Prescriptions as of 08/09/2025 - dapagliflozin propanediol (FARXIGA) 5 mg tablet Take 5 mg by mouth daily at bedtime. - furosemide (LASIX) 40 mg tablet Take 2 tablets by mouth every morning AND 1 tablet every evening. - doxazosin (CARDURA) 2 mg tablet Take 1 tablet by mouth daily at bedtime. - Blood-Glucose Meter,Continuous (DEXCOM G7 REGIONAL AGRONOMIST) [facility] Dx: E11.49. ?Insulin: Yes. Use to check blood sugars at least 4 times a day - Blood-Glucose Sensor (DEXCOM G7 SENSOR) [facility] Dx: E11.49. ?Insulin: Yes. Apply new sensor every ten (10) days - CPAP/BIPAP/OTHER Type .CPAPSettings into a note to see current settings/supplies/DME information. - clotrimazole (LOTRIMIN) 1 % cream Apply 1 application to affected area two times a day. - triamcinolone acetonide (KENALOG) 0.1 % cream Apply 1 application to affected area two times a day. Apply sparingly to top of ears - apixaban (ELIQUIS) 2.5 mg tab(s) Take 1 tablet by mouth twice daily. Per Cardiology. - sacubitril-valsartan (ENTRESTO) 97-103 mg tablet Take 1 tablet by mouth two times a day. Per Cardiology. - atorvastatin (LIPITOR) 40 mg tablet Take 40 mg by mouth once daily. - nitroglycerin sublingual (NITROQUICK) 0.4 mg SL tablet Dissolve 1 tablet under the tongue as needed for Chest Pain. If no pain relief call 911. 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 Normal [facility] John 08-04-2025 CNPN Telephone (INTWS) FEDERICO HU ([id number]) 1935 M Date Time Provider Department 08/04/25 NITHIN ACEVEDO INTBearWS During your visit today, we recorded the following information about you: Krissy Amor RN 08/04/2025 8:28 AM Signed Coco with [facility] calls to request a copy of most recent OV notes from PCP. Faxed 07/26/2025 OV notes to [phone] as requested. Krissy Amor RN Allergies As of Date: 08/04/2025 Noted Allergy Reaction FEXOFENADINE 11/05/2024 16 - Unknown PROSCAR (FINASTERIDE) 07/02/2010 2 - Rash Date Reviewed: 07/26/2025 Reviewed by: Daxa Morin LPN - Fully Assessed Reason for Visit: OV Notes [Other] Prescriptions as of 08/04/2025 - dapagliflozin propanediol (FARXIGA) 5 mg tablet Take 5 mg by mouth daily at bedtime. - furosemide (LASIX) 40 mg tablet Take 2 tablets by mouth every morning AND 1 tablet every evening. - doxazosin (CARDURA) 2 mg tablet Take 1 tablet by mouth daily at bedtime. - Blood-Glucose Meter,Continuous (DEXCOM G7 REGIONAL AGRONOMIST) [facility] Dx: E11.49. ?Insulin: Yes. Use to check blood sugars at least 4 times a day - Blood-Glucose Sensor (DEXCOM G7 SENSOR) [facility] Dx: E11.49. ?Insulin: Yes. Apply new sensor every ten (10) days - CPAP/BIPAP/OTHER Type .CPAPSettings into a note to see current settings/supplies/DME information. - clotrimazole (LOTRIMIN) 1 % cream Apply 1 application to affected area two times a day. - triamcinolone acetonide (KENALOG) 0.1 % cream Apply 1 application to affected area two times a day. Apply sparingly to top of ears - apixaban (ELIQUIS) 2.5 mg tab(s) Take 1 tablet by mouth twice daily. Per Cardiology. - sacubitril-valsartan (ENTRESTO) 97-103 mg tablet Take 1 tablet by mouth two times a day. Per Cardiology. - atorvastatin (LIPITOR) 40 mg tablet Take 40 mg by mouth once daily. - nitroglycerin sublingual (NITROQUICK) 0.4 mg SL tablet Dissolve 1 tablet under the tongue as needed for Chest Pain. If no pain relief call 911. 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* Essential hypertension [I10] Anal fissure [K60.2] 06/19/2006 10/09/2010 Shortness of breath [R06.02] 10/23/2006 10/09/2010 Unspecified pleural effusion [J90] 12/25/2006 10/09/2010 Coronary atherosclerosis [I25.10] 01/03/2009 Hyperlipemia [E78.5] 01/03/2009 Occlusion and stenosis of carotid artery withou*01/31/2009 01/26/2019 Unspecified Sleep Disturbance [G47.9] 01/31/2009 09/12/2015 Elevated prostate specific antigen (PSA) [R97.2*02/01/2009 01/19/2018 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] 11/30/2009 10/09/2010 BPH with obstruction/lower urinary tract sympto*08/08/2010 Skin mass [R22.9] 10/26/2010 05/13/2013 Anemia [D64.9] 05/12/2013 OA (osteoarthritis) of knee [M17.9] 09/23/2014 Atrial fibrillation (HCC) [I48.91] 05/13/2016 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] 07/30/2016 RBBB (right bundle branch block) [I45.10] 07/30/2016 Encounter for monitoring anti-arrhythmic therap*07/30/2016 COPD with exacerbation (HCC) [J44.1] 08/07/2016 06/01/2020 CKD (chronic kidney disease) stage 3, GFR 30-59*09/20/2017 12/15/2018 CKD (chronic kidney disease) stage 4, GFR 15-29*07/22/2018 Chronic diastolic CHF (congestive heart failure*07/22/2018 Chronic cough [R05.3] 06/01/2020 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] 11/02/2020 Hypercalcemia [E83.52] 11/23/2021 Wound of left leg [S81.802A] 06/12/2022 05/09/2023 Recurrent epistaxis [R04.0] 06/12/2022 05/09/2023 Candidal intertrigo [B37.2] 11/05/2024 HELDER on CPAP [G47.33] 09/19/2016 VHD (valvular heart disease) [I38] 02/15/[address] [R93.89] 02/15/2025 MGUS (monoclonal gammopathy of unknown signific*02/15/2025 Thrombocytopenia [D69.6] 07/26/2025 Stasis ulcer (HCC) [I83.009, L97.909] 07/26/2025 Pressure injury of left buttock, stage 1 [L89.3*07/26/2025 Encounter Status:Closed by KRISSY AMOR on 08/04/25 [facility] CNPNon 08-03-2025 [facility] Telephone (INTMWS) FEDERICO HU ([id number]) 1935 M Date Time Provider Department 08/03/25 NITHIN ACEVEDO INTWS During your visit today, we recorded the following information about you: Ciera Conner LPN 08/03/2025 11:16 AM Signed Fax rec'd from [employer] for PA on dexcom G7 sensors. This was approved from 07/25/25 to 07/23/26. Allergies As of Date: 08/03/2025 Noted Allergy Reaction FEXOFENADINE 11/05/2024 16 - Unknown PROSCAR (FINASTERIDE) 07/02/2010 2 - Rash Date Reviewed: 07/26/2025 Reviewed by: Daxa Morin LPN - Fully Assessed Reason for Visit: Insurance Authorization [[id number]] Prescriptions as of 08/03/2025 - dapagliflozin propanediol (FARXIGA) 5 mg tablet Take 5 mg by mouth daily at bedtime. - furosemide (LASIX) 40 mg tablet Take 2 tablets by mouth every morning AND 1 tablet every evening. - doxazosin (CARDURA) 2 mg tablet Take 1 tablet by mouth daily at bedtime. - Blood-Glucose Meter,Continuous (DEXCOM G7 REGIONAL AGRONOMIST) [facility] Dx: E11.49. ?Insulin: Yes. Use to check blood sugars at least 4 times a day - Blood-Glucose Sensor (DEXCOM G7 SENSOR) [facility] Dx: E11.49. ?Insulin: Yes. Apply new sensor every ten (10) days - CPAP/BIPAP/OTHER Type .CPAPSettings into a note to see current settings/supplies/DME information. - clotrimazole (LOTRIMIN) 1 % cream Apply 1 application to affected area two times a day. - triamcinolone acetonide (KENALOG) 0.1 % cream Apply 1 application to affected area two times a day. Apply sparingly to top of ears - apixaban (ELIQUIS) 2.5 mg tab(s) Take 1 tablet by mouth twice daily. Per Cardiology. - sacubitril-valsartan (ENTRESTO) 97-103 mg tablet Take 1 tablet by mouth two times a day. Per Cardiology. - atorvastatin (LIPITOR) 40 mg tablet Take 40 mg by mouth once daily. - nitroglycerin sublingual (NITROQUICK) 0.4 mg SL tablet Dissolve 1 tablet under the tongue as needed for Chest Pain. If no pain relief call 911. 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* Essential hypertension [I10] Anal fissure [K60.2] 06/19/2006 10/09/2010 Shortness of breath [R06.02] 10/23/2006 10/09/2010 Unspecified pleural effusion [J90] 12/25/2006 10/09/2010 Coronary atherosclerosis [I25.10] 01/03/2009 Hyperlipemia [E78.5] 01/03/2009 Occlusion and stenosis of carotid artery withou*01/31/2009 01/26/2019 Unspecified Sleep Disturbance [G47.9] 01/31/2009 09/12/2015 Elevated prostate specific antigen (PSA) [R97.2*02/01/2009 01/19/2018 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] 11/30/2009 10/09/2010 BPH with obstruction/lower urinary tract sympto*08/08/2010 Skin mass [R22.9] 10/26/2010 05/13/2013 Anemia [D64.9] 05/12/2013 OA (osteoarthritis) of knee [M17.9] 09/23/2014 Atrial fibrillation (HCC) [I48.91] 05/13/2016 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] 07/30/2016 RBBB (right bundle branch block) [I45.10] 07/30/2016 Encounter for monitoring anti-arrhythmic therap*07/30/2016 COPD with exacerbation (HCC) [J44.1] 08/07/2016 06/01/2020 CKD (chronic kidney disease) stage 3, GFR 30-59*09/20/2017 12/15/2018 CKD (chronic kidney disease) stage 4, GFR 15-29*07/22/2018 Chronic diastolic CHF (congestive heart failure*07/22/2018 Chronic cough [R05.3] 06/01/2020 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] 11/02/2020 Hypercalcemia [E83.52] 11/23/2021 Wound of left leg [S81.802A] 06/12/2022 05/09/2023 Recurrent epistaxis [R04.0] 06/12/2022 05/09/2023 Candidal intertrigo [B37.2] 11/05/2024 HELDER on CPAP [G47.33] 09/19/2016 VHD (valvular heart disease) [I38] 02/15/[address] [R93.89] 02/15/2025 MGUS (monoclonal gammopathy of unknown signific*02/15/2025 Thrombocytopenia [D69.6] 07/26/2025 Stasis ulcer (HCC) [I83.009, L97.909] 07/26/2025 Pressure injury of left buttock, stage 1 [L89.3*07/26/2025 Encounter Status:Closed by CIERA CONNER on 08/03/25 Normal [facility] Telephone (INTMWS) FEDERICO HU ([id number]) 1935 M Date Time Provider Department 08/03/25 NITHIN ACEVEDO INTMWS During your visit today, we recorded the following information about you: Viet López MA 08/03/2025 9:45 AM Signed Type of form: Home Health Care Orders Form received via fax When form is completed, Fax form to [phone] Form has been forwarded to Physician Desk: CHASE Bliss Victor H, MD 08/13/2025 1:24 PM Signed Done. Allergies As of Date: 08/03/2025 Noted Allergy Reaction FEXOFENADINE 11/05/2024 16 - Unknown PROSCAR (FINASTERIDE) 07/02/2010 2 - Rash Date Reviewed: 07/26/2025 Reviewed by: Daxa Morin LPN - Fully Assessed Reason for Visit: Forms [123] Cmt: [facility] wound Prescriptions as of 08/13/2025 - nystatin (MYCOSTATIN) powder Apply 1 application to affected area two times a day. - dapagliflozin propanediol (FARXIGA) 5 mg tablet Take 5 mg by mouth daily at bedtime. - furosemide (LASIX) 40 mg tablet Take 2 tablets by mouth every morning AND 1 tablet every evening. - doxazosin (CARDURA) 2 mg tablet Take 1 tablet by mouth daily at bedtime. - Blood-Glucose Meter,Continuous (DEXCOM G7 REGIONAL AGRONOMIST) [facility] Dx: E11.49. ?Insulin: Yes. Use to check blood sugars at least 4 times a day - Blood-Glucose Sensor (DEXCOM G7 SENSOR) [facility] Dx: E11.49. ?Insulin: Yes. Apply new sensor every ten (10) days - CPAP/BIPAP/OTHER Type .CPAPSettings into a note to see current settings/supplies/DME information. - clotrimazole (LOTRIMIN) 1 % cream Apply 1 application to affected area two times a day. - triamcinolone acetonide (KENALOG) 0.1 % cream Apply 1 application to affected area two times a day. Apply sparingly to top of ears - apixaban (ELIQUIS) 2.5 mg tab(s) Take 1 tablet by mouth twice daily. Per Cardiology. - sacubitril-valsartan (ENTRESTO) 97-103 mg tablet Take 1 tablet by mouth two times a day. Per Cardiology. - atorvastatin (LIPITOR) 40 mg tablet Take 40 mg by mouth once daily. - nitroglycerin sublingual (NITROQUICK) 0.4 mg SL tablet Dissolve 1 tablet under the tongue as needed for Chest Pain. If no pain relief call 911. 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* Essential hypertension [I10] Anal fissure [K60.2] 06/19/2006 10/09/2010 Shortness of breath [R06.02] 10/23/2006 10/09/2010 Unspecified pleural effusion [J90] 12/25/2006 10/09/2010 Coronary atherosclerosis [I25.10] 01/03/2009 Hyperlipemia [E78.5] 01/03/2009 Occlusion and stenosis of carotid artery withou*01/31/2009 01/26/2019 Unspecified Sleep Disturbance [G47.9] 01/31/2009 09/12/2015 Elevated prostate specific antigen (PSA) [R97.2*02/01/2009 01/19/2018 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] 11/30/2009 10/09/2010 BPH with obstruction/lower urinary tract sympto*08/08/2010 Skin mass [R22.9] 10/26/2010 05/13/2013 Anemia [D64.9] 05/12/2013 OA (osteoarthritis) of knee [M17.9] 09/23/2014 Atrial fibrillation (HCC) [I48.91] 05/13/2016 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] 07/30/2016 RBBB (right bundle branch block) [I45.10] 07/30/2016 Encounter for monitoring anti-arrhythmic therap*07/30/2016 COPD with exacerbation (HCC) [J44.1] 08/07/2016 06/01/2020 CKD (chronic kidney disease) stage 3, GFR 30-59*09/20/2017 12/15/2018 CKD (chronic kidney disease) stage 4, GFR 15-29*07/22/2018 Chronic diastolic CHF (congestive heart failure*07/22/2018 Chronic cough [R05.3] 06/01/2020 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] 11/02/2020 Hypercalcemia [E83.52] 11/23/2021 Wound of left leg [S81.802A] 06/12/2022 05/09/2023 Recurrent epistaxis [R04.0] 06/12/2022 05/09/2023 Candidal intertrigo [B37.2] 11/05/2024 HELDER on CPAP [G47.33] 09/19/2016 VHD (valvular heart disease) [I38] 02/15/[address] [R93.89] 02/15/2025 MGUS (monoclonal gammopathy of unknown signific*02/15/2025 Thrombocytopenia [D69.6] 07/26/2025 Stasis ulcer (HCC) [I83.009, L97.909] 07/26/2025 Pressure injury of left buttock, stage 1 [L89.3*07/26/2025 Encounter Status:Closed by NITHIN ACEVEDO on 08/13/25 Normal [facility] Anion gap in Serum or Plasma Ordered By: Nithin Acevedo on 08-02-2025 Anion gap [Moles/Vol] 13 mmol/L - [facility] BUN/creatinine ratioOrdered By: Nithin Acevedo on 08-02-2025 Urea nitrogen/Creatinine [Mass ratio] 20.1 mg/mg High 09-05 [facility] Basic Metabolic Profile (BMP )on 08-02-2025 BUN/CRE 20.1 RATIO High 09-05 [facility] Comment on above: Performed By: #### L 499.0043 #### [facility] [address] [place], [address] Calcium [Mass/Vol] 11.0 mg/dL Normal 7.6-11.0 [facility] Comment on above: Performed By: #### L 499.0043 #### [facility] [address] [place], [address] Chloride [Moles/Vol] 105 mmol/L Normal 98-108 [facility] Comment on above: Performed By: #### L 499.0043 #### [facility] [address] [place], [address] CO2 [Moles/Vol] 25.0 mmol/L Normal 21.0-32.0 [facility] Comment on above: Performed By: #### L 499.0043 #### [facility] [address] [place], [address] Creatinine [Mass/Vol] 3.12 mg/dL High 0.70-1.20 [facility] Comment on above: Performed By: #### L 499.0043 #### [facility] [address] [place], [address] GAP 13 Normal 5-15 [facility] Comment on above: Performed By: #### L 499.0043 #### [facility] [address] [place], [address] GFR/1.73 sq M.predicted among non-blacks MDRD (S/P/Bld) [Vol rate/Area] 18 mL/min/{1.73_m2} Low >60 [facility] Comment on above: Result Comment: mL/m in/1.73m2 CKD-EPI Creatinine Equation (2020) Performed By: #### L 499.0043 #### [facility] [address] [place], [address] Glucose [Mass/Vol] 161 mg/dL High 70-99 [facility] Comment on above: Performed By: #### L 499.0043 #### [facility] [address] [place], [address] Potassium [Moles/Vol] 4.5 mmol/L Normal 3.3-5.1 [facility] Comment on above: Performed By: #### L 499.0043 #### [facility] [address] [place], [address] Sodium [Moles/Vol] 143 mmol/L Normal 133-145 [facility] Comment on above: Performed By: #### L 499.0043 #### [facility] [address] [place], [address] Urea nitrogen [Mass/Vol] 63 mg/dL High 4-19 [facility] Comment on above: Performed By: #### L 499.0043 #### [facility] [address] [place], [address] CBC-Complete Blood Cnt No Di ffon 08-02-2025 Erythrocyte distribution width (RBC) [Ratio] 14.9 % High 11.6-14.6 [facility] Comment on above: Performed By: #### L 500.2500, L501.9985, L500.4100, L100.0500 #### [facility] [address] [place], [address] Hematocrit (Bld) [Volume fraction] 28.9 % Low 40-54 [facility] Comment on above: Performed By: #### L 500.2500, L501.9985, L500.4100, L100.0500 #### [facility] [address] [place], [address] Hemoglobin (Bld) [Mass/Vol] 8.4 g/dL Low 13.0-16.5 [facility] Comment on above: Performed By: #### L 500.2500, L501.9985, L500.4100, L100.0500 #### [facility] [address] [place], [address] MCH (RBC) [Entitic mass] 25.7 pg Low 27.0-32.0 [facility] Comment on above: Performed By: #### L 500.2500, L501.9985, L500.4100, L100.0500 #### [facility] [address] [place], [address] MCHC (RBC) [Mass/Vol] 29.1 g/dL Low 32-36 [facility] Comment on above: Performed By: #### L 500.2500, L501.9985, L500.4100, L100.0500 #### [facility] [address] [place], [address] MCV (RBC) [Entitic vol] 88.4 fL Normal 80-94 [facility] Comment on above: Performed By: #### L 500.2500, L501.9985, L500.4100, L100.0500 #### [facility] [address] [place], [address] Platelet mean volume (Bld) [Entitic vol] 13.3 fL High 6.2-12.0 [facility] Comment on above: Performed By: #### L 500.2500, L501.9985, L500.4100, L100.0500 #### [facility] [address] [place], [address] Platelets (Bld) [#/Vol] 128 10*3/uL Low 150-450 [facility] Comment on above: Performed By: #### L 500.2500, L501.9985, L500.4100, L100.0500 #### [facility] [address] [place], [address] RBC (Bld) [#/Vol] 3.27 10*6/uL Low 4.6-6.2 [facility] Comment on above: Performed By: #### L 500.2500, L501.9985, L500.4100, L100.0500 #### [facility] [address] [place], [address] RDW SD 47.9 fl High 35.1-43.9 [facility] Comment on above: Performed By: #### L 500.2500, L501.9985, L500.4100, L100.0500 #### [facility] [address] [place], [address] WBC (Bld) [#/Vol] 5.2 10*3/uL Normal 4.4-11.0 [facility] Comment on above: Performed By: #### L 500.2500, L501.9985, L500.4100, L100.0500 #### [facility] [address] [place], [address] [facility] Telephone (INTMWS) FEDERICO HU ([id number]) 1935 Date Time Provider Department 08/02/25 NITHIN ACEVEDO INTWS During your visit today, we recorded the following information about you: Bear Good, RN 08/02/2025 10:00 AM Signed Moises- nurse- [facility] reports pt came out of hospital with orders to put cream to buttock wounds. Reports there are no buttock wounds so he is going to d/c this. Reports pt does have 2 very small open shallow vascular ulcer wounds- 1 on each ferguson. Reports he wrote orders to wash with soap and water, pat dry, put xeroform to each wound, wrap each in curlex, and apply compression to each. No call back needed. Allergies As of Date: 08/02/2025 Noted Allergy Reaction FEXOFENADINE 11/05/2024 16 - Unknown PROSCAR (FINASTERIDE) 07/02/2010 2 - Rash Date Reviewed: 07/26/2025 Reviewed by: Daxa Morin LPN - Fully Assessed Reason for Visit: FYI- [facility] Nurse POC wound care [Other] Prescriptions as of 08/02/2025 - dapagliflozin propanediol (FARXIGA) 5 mg tablet Take 5 mg by mouth daily at bedtime. - furosemide (LASIX) 40 mg tablet Take 2 tablets by mouth every morning AND 1 tablet every evening. - doxazosin (CARDURA) 2 mg tablet Take 1 tablet by mouth daily at bedtime. - Blood-Glucose Meter,Continuous (DEXCOM G7 REGIONAL AGRONOMIST) [facility] Dx: E11.49. ?Insulin: Yes. Use to check blood sugars at least 4 times a day - Blood-Glucose Sensor (DEXCOM G7 SENSOR) [facility] Dx: E11.49. ?Insulin: Yes. Apply new sensor every ten (10) days - CPAP/BIPAP/OTHER Type .CPAPSettings into a note to see current settings/supplies/DME information. - clotrimazole (LOTRIMIN) 1 % cream Apply 1 application to affected area two times a day. - triamcinolone acetonide (KENALOG) 0.1 % cream Apply 1 application to affected area two times a day. Apply sparingly to top of ears - apixaban (ELIQUIS) 2.5 mg tab(s) Take 1 tablet by mouth twice daily. Per Cardiology. - sacubitril-valsartan (ENTRESTO) 97-103 mg tablet Take 1 tablet by mouth two times a day. Per Cardiology. - atorvastatin (LIPITOR) 40 mg tablet Take 40 mg by mouth once daily. - nitroglycerin sublingual (NITROQUICK) 0.4 mg SL tablet Dissolve 1 tablet under the tongue as needed for Chest Pain. If no pain relief call 911. 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* Essential hypertension [I10] Anal fissure [K60.2] 06/19/2006 10/09/2010 Shortness of breath [R06.02] 10/23/2006 10/09/2010 Unspecified pleural effusion [J90] 12/25/2006 10/09/2010 Coronary atherosclerosis [I25.10] 01/03/2009 Hyperlipemia [E78.5] 01/03/2009 Occlusion and stenosis of carotid artery withou*01/31/2009 01/26/2019 Unspecified Sleep Disturbance [G47.9] 01/31/2009 09/12/2015 Elevated prostate specific antigen (PSA) [R97.2*02/01/2009 01/19/2018 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] 11/30/2009 10/09/2010 BPH with obstruction/lower urinary tract sympto*08/08/2010 Skin mass [R22.9] 10/26/2010 05/13/2013 Anemia [D64.9] 05/12/2013 OA (osteoarthritis) of knee [M17.9] 09/23/2014 Atrial fibrillation (HCC) [I48.91] 05/13/2016 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] 07/30/2016 RBBB (right bundle branch block) [I45.10] 07/30/2016 Encounter for monitoring anti-arrhythmic therap*07/30/2016 COPD with exacerbation (HCC) [J44.1] 08/07/2016 06/01/2020 CKD (chronic kidney disease) stage 3, GFR 30-59*09/20/2017 12/15/2018 CKD (chronic kidney disease) stage 4, GFR 15-29*07/22/2018 Chronic diastolic CHF (congestive heart failure*07/22/2018 Chronic cough [R05.3] 06/01/2020 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] 11/02/2020 Hypercalcemia [E83.52] 11/23/2021 Wound of left leg [S81.802A] 06/12/2022 05/09/2023 Recurrent epistaxis [R04.0] 06/12/2022 05/09/2023 Candidal intertrigo [B37.2] 11/05/2024 HELDER on CPAP [G47.33] 09/19/2016 VHD (valvular heart disease) [I38] 02/15/[address] [R93.89] 02/15/2025 MGUS (monoclonal gammopathy of unknown signific*02/15/2025 Thrombocytopenia [D69.6] 07/26/2025 Stasis ulcer (HCC) [I83.009, L97.909] 07/26/2025 Pressure injury of left buttock, stage 1 [L89.3*07/26/2025 Encounter Status:Closed by Bear GOOD on 08/02/25 Normal [facility] Telephone ([employer]) FEDERICO HU ([id number]) 1935 M Date Time Provider Department 08/02/25 NITHIN ACEVEDO During your visit today, we recorded the following information about you: Ana Valderrama, RN 08/02/2025 5:45 PM Signed Ellen with [facility] OT HH is calling to let pcp know that she will be seeing patient daily for 2 weeks and this twice weekly for 2 weeks for strength training. Allergies As of Date: 08/02/2025 Noted Allergy Reaction FEXOFENADINE 11/05/2024 16 - Unknown PROSCAR (FINASTERIDE) 07/02/2010 2 - Rash Date Reviewed: 07/26/2025 Reviewed by: Daxa Morin LPN - Fully Assessed Reason for Visit: FYI-No Action Needed [265] Prescriptions as of 08/02/2025 - dapagliflozin propanediol (FARXIGA) 5 mg tablet Take 5 mg by mouth daily at bedtime. - furosemide (LASIX) 40 mg tablet Take 2 tablets by mouth every morning AND 1 tablet every evening. - doxazosin (CARDURA) 2 mg tablet Take 1 tablet by mouth daily at bedtime. - Blood-Glucose Meter,Continuous (DEXCOM G7 REGIONAL AGRONOMIST) [facility] Dx: E11.49. ?Insulin: Yes. Use to check blood sugars at least 4 times a day - Blood-Glucose Sensor ([employer] G7 SENSOR) [facility] Dx: E11.49. ?Insulin: Yes. Apply new sensor every ten (10) days - CPAP/BIPAP/OTHER Type .CPAPSettings into a note to see current settings/supplies/DME information. - clotrimazole (LOTRIMIN) 1 % cream Apply 1 application to affected area two times a day. - triamcinolone acetonide (KENALOG) 0.1 % cream Apply 1 application to affected area two times a day. Apply sparingly to top of ears - apixaban (ELIQUIS) 2.5 mg tab(s) Take 1 tablet by mouth twice daily. Per Cardiology. - sacubitril-valsartan (ENTRESTO) 97-103 mg tablet Take 1 tablet by mouth two times a day. Per Cardiology. - atorvastatin (LIPITOR) 40 mg tablet Take 40 mg by mouth once daily. - nitroglycerin sublingual (NITROQUICK) 0.4 mg SL tablet Dissolve 1 tablet under the tongue as needed for Chest Pain. If no pain relief call 911. 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* Essential hypertension [I10] Anal fissure [K60.2] 06/19/2006 10/09/2010 Shortness of breath [R06.02] 10/23/2006 10/09/2010 Unspecified pleural effusion [J90] 12/25/2006 10/09/2010 Coronary atherosclerosis [I25.10] 01/03/2009 Hyperlipemia [E78.5] 01/03/2009 Occlusion and stenosis of carotid artery withou*01/31/2009 01/26/2019 Unspecified Sleep Disturbance [G47.9] 01/31/2009 09/12/2015 Elevated prostate specific antigen (PSA) [R97.2*02/01/2009 01/19/2018 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] 11/30/2009 10/09/2010 BPH with obstruction/lower urinary tract sympto*08/08/2010 Skin mass [R22.9] 10/26/2010 05/13/2013 Anemia [D64.9] 05/12/2013 OA (osteoarthritis) of knee [M17.9] 09/23/2014 Atrial fibrillation (HCC) [I48.91] 05/13/2016 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] 07/30/2016 RBBB (right bundle branch block) [I45.10] 07/30/2016 Encounter for monitoring anti-arrhythmic therap*07/30/2016 COPD with exacerbation (HCC) [J44.1] 08/07/2016 06/01/2020 CKD (chronic kidney disease) stage 3, GFR 30-59*09/20/2017 12/15/2018 CKD (chronic kidney disease) stage 4, GFR 15-29*07/22/2018 Chronic diastolic CHF (congestive heart failure*07/22/2018 Chronic cough [R05.3] 06/01/2020 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] 11/02/2020 Hypercalcemia [E83.52] 11/23/2021 Wound of left leg [S81.802A] 06/12/2022 05/09/2023 Recurrent epistaxis [R04.0] 06/12/2022 05/09/2023 Candidal intertrigo [B37.2] 11/05/2024 HELDER on CPAP [G47.33] 09/19/2016 VHD (valvular heart disease) [I38] 02/15/[address] [R93.89] 02/15/2025 MGUS (monoclonal gammopathy of unknown signific*02/15/2025 Thrombocytopenia [D69.6] 07/26/2025 Stasis ulcer (HCC) [I83.009, L97.909] 07/26/2025 Pressure injury of left buttock, stage 1 [L89.3*07/26/2025 Encounter Status:Closed by ANA VALDERRAMA on 08/02/25 Normal [facility] Calculated very low density lipoprotein (VLDL) cholesterol measurementOrdered By: Nithin Acevedo on 08-02-2025 Calculated very low density lipoprotein (VLDL) cholesterol measurement 14 mg/dL 5-40 [facility] Carbon dioxide, total [Moles /volume] in Central venous bloodOrdered By: Nithin Acevedo on 08-02-2025 CO2 [Moles/Vol] 25.0 mmol/L 21.0-32.0 [facility] Chloride assayOrdered By: Tete Acevedo on 08-02-2025 Chloride [Moles/Vol] 105 mmol/L 98-108 [facility] Erythrocyte distribution wid th ratioOrdered By: Nithin Acevedo on 08-02-2025 Erythrocyte distribution width (RBC) [Ratio] 14.9 % High 11.6-14.6 [facility] Erythrocyte distribution wid th standard deviationOrdered By: Nithin Acevedo on 08-02-2025 Erythrocyte distribution width (RBC) [Ratio] 47.9 fl High 35.1-43.9 [facility] Glomerular filtration rate ( GFR) estimation/1.73 sq m using serum, plasma, or whole bOrdered By: Nithin Acevedo on 08-02-2025 GFR/1.73 sq M.predicted among non-blacks MDRD (S/P/Bld) [Vol rate/Area] 18 mL/min/{1.73_m2} Low >60 [facility] Comment on above: mL/min/1.73m2 CKD-EP I Creatinine Equation (2020) Hematocrit Auto (Bld) [Volum e fraction]Ordered By: Nithin Acevedo on 08-02-2025 Hematocrit (Bld) [Volume fraction] 28.9 % Low 40-54 [facility] Hemoglobin A1con 08-02-2025 HbA1c (Bld) [Mass fraction] 6.5 % High <=5.6 [facility] Comment on above: Result Comment: Norm al < 5.7 % Prediabetic 5.7 - 6.4 % Diabetic >or= 6.5 % Please note range changes. Performed By: #### L 499.0043 #### [facility] [address] [place] [address], [address] Hemoglobin A1c percentageOrd ered By: Nithin Acevedo on 08-02-2025 HbA1c (Bld) [Mass fraction] 6.5 % High <5.7 [facility] Comment on above: Normal < 5.7 % Predi abetic 5.7 - 6.4 % Diabetic >or= 6.5 % Please note range changes. Hemoglobin measurementOrdere d By: Nithin Acevedo on 08-02-2025 Hemoglobin (Bld) [Mass/Vol] 8.4 g/dL Low 13.0-16.5 [facility] LDL calc ser/plasOrdered By: Nithin Acevedo on 08-02-2025 Cholesterol in LDL [Mass/Vol] 19 mg/dL [facility] Comment on above: Cvcbmrcvai=666-316 m g/dL & Higher Cdxs=373 mg/dL or greaterFriedwald Equation for LDL-C Lipid Profileon 08-02-2025 CHOL:HDL 1.90 Normal [facility] Comment on above: Performed By: #### L 499.0043 #### [facility] [address] [facility] [place], [address] (268) Cholesterol [Mass/Vol] 71 mg/dL Normal <=200 [facility] Comment on above: Result Comment: Chol esterol level, Desirable <200 mg/dL Borderline high cholesterol 200-239 mg/dL High cholesterol >=240 mg/dL Recommendations of the NCEP Adult Treatment Panel for the following risk-cutoff thresholds for the [place] population. Performed By: #### L 499.0043 #### [facility] [address] [place], [address] Cholesterol in HDL [Mass/Vol] 38 mg/dL Low [facility] Comment on above: Result Comment: Jazmin onal Cholesterol Education Program (NCEP) guidelines: <40 mg/dL: Low HDL-cholesterol (major risk factor for CHD) >= 60 mg/dL: High HDL-cholesterol (negative risk factor for CHD) HDL-cholesterol is affected by a number of factors, e.g. smoking, exercise, hormones, sex and age. Performed By: #### L 499.0043 #### [facility] [address] [place], [address] (295) Cholesterol in LDL [Mass/Vol] 19 mg/dL Normal [facility] Comment on above: Result Comment: Bord rdtwpp=558-160 mg/dL Higher Znqa=186 mg/dL or greater Friedwald Equation for LDL-C Performed By: #### L [id number] #### [facility] [address] [place], [place], [address] Cholesterol in VLDL [Mass/Vol] 14 mg/dL Normal 5-40 [facility] Comment on above: Performed By: #### L [id number] #### [facility] [address] [place], [place], [id number] Triglyceride [Mass/Vol] 71 mg/dL Normal [facility] Comment on above: Result Comment: The drugs N-Acetylcysteine and Metamizole may falsely depress this assay. Normal range: <150 mg/dL Borderline High: 150-199 mg/dL High: 200-499 mg/dL Very High: >500 mg/dL Performed By: #### L [id number] #### [facility] [address] [place], [place], [address] MCV (mean corpuscular volume ) determinationOrdered By: Nithin Acevedo on 08-02-2025 MCV (RBC) [Entitic vol] 88.4 fL 80-94 [facility] Mean corpuscular hemoglobin (MCH) determinationOrdered By: Nithin Acevedo on 08-02-2025 MCH (RBC) [Entitic mass] 25.7 pg Low 27.0-32.0 [facility] Mean corpuscular hemoglobin concentration (MCHC) determinationOrdered By: Nithin Acevedo on 08-02-2025 MCHC (RBC) [Mass/Vol] 29.1 g/dL Low 32-36 [facility] Mean platelet volume determi nationOrdered By: Nithin Acevedo on 08-02-2025 Platelet mean volume (Bld) [Entitic vol] 13.3 fL High 6.2-12.0 [facility] Platelet countOrdered By: Tete Acevedo on 08-02-2025 Platelets (Bld) [#/Vol] 128 10*3/uL Low 150-450 [facility] Potassium measurement (mass/ volume)Ordered By: Nithin Acevedo on 08-02-2025 Potassium (Unsp spec) [Mass/Vol] 4.5 mmol/L 3.3-5.1 [facility] RBC Auto (Bld) [#/Vol]Ordere d By: Nithin Acevedo on 08-02-2025 RBC (Bld) [#/Vol] 3.27 10*6/uL Low 4.6-6.2 [facility] Screening total cholesterol/ high density lipoprotein (HDL) cholesterol ratioOrdered By: Nithin Acevedo on 08-02-2025 Cholesterol.total/Cho lesterol in HDL [Mass ratio] 1.90 {ratio} [facility] Serum creatinine measurement (mass/volume)Ordered By: Nithin Acevedo on 08-02-2025 Creatinine [Mass/Vol] 3.12 mg/dL High 0.70-1.20 [facility] Serum glucose measurement (m ass/volume)Ordered By: Nithin Acevedo on 08-02-2025 Glucose [Mass/Vol] 161 mg/dL High 70-99 [facility] Serum or plasma calcium karthik urement (mass/volume)Ordered By: Nithin Acevedo on 08-02-2025 Calcium [Mass/Vol] 11.0 mg/dL 7.6-11.0 [facility] Serum or plasma cholesterol in HDL measurement (mass/volume)Ordered By: Nithin Acevedo on 08-02-2025 Cholesterol in HDL [Mass/Vol] 38 mg/dL Low >40 [facility] Comment on above: National Cholesterol Education Program (NCEP) guidelines:<40 mg/dL: Low HDL-cholesterol (major risk factor for CHD)>= 60 mg/dL: High HDL-cholesterol (negative risk factor for CHD)HDL-cholesterol is affected by a number of factors, e.g. smoking, exercise, hormones, sex and age. Serum or plasma cholesterol measurement (mass/volume)Ordered By: Nithin Acevedo on 08-02-2025 Cholesterol [Mass/Vol] 71 mg/dL <201 [facility] Comment on above: Cholesterol level, D esirable <200 mg/dLBorderline high cholesterol 200-239 mg/dLHigh cholesterol >=240 mg/dLRecommendations of the NCEP Adult Treatment Panel for the following risk-cutoff thresholds for the [place] population. Serum or plasma urea nitroge n measurement (mass/volume)Ordered By: Nithin Acevedo on 08-02-2025 Urea nitrogen [Mass/Vol] 63 mg/dL High 4-19 [facility] Sodium levelOrdered By: Josh Acevedo on 08-02-2025 Sodium [Moles/Vol] 143 mmol/L 133-145 [facility] Triglycerides measurementOrd ered By: Nithin Acevedo on 08-02-2025 Triglyceride [Mass/Vol] 71 mg/dL <199 [facility] Comment on above: The drugs N-Acetylcy steine and Metamizole may falsely depress this assay. Normal range: <150 mg/dLBorderline High: 150-199 mg/dLHigh: 200-499 mg/dLVery High: >500 mg/dL White blood cell (WBC) count Ordered By: Nithin Acevedo on 08-02-2025 WBC (Bld) [#/Vol] 5.2 10*3/uL 4.4-11.0 [facility] CNPNon 07-28-2025 CNPN Telephone (INTMWS) FEDERICO HU ([id number]) 1935 M Date Time Provider Department 07/28/25 NITHIN ACEVEDO INTWS During your visit today, we recorded the following information about you: Krissy Amor RN 07/28/2025 3:50 PM Signed Chepe PT calling from [facility] to report plan of care for patient and PT will visit patient two times a week for three weeks. PT will work with patient on functional mobility training. No call back needed. Krissy Amor RN Allergies As of Date: 07/28/2025 Noted Allergy Reaction FEXOFENADINE 11/05/2024 16 - Unknown PROSCAR (FINASTERIDE) 07/02/2010 2 - Rash Date Reviewed: 07/26/2025 Reviewed by: Daxa Morin LPN - Fully Assessed Prescriptions as of 07/28/2025 - dapagliflozin propanediol (FARXIGA) 5 mg tablet Take 5 mg by mouth daily at bedtime. - furosemide (LASIX) 40 mg tablet Take 2 tablets by mouth every morning AND 1 tablet every evening. - doxazosin (CARDURA) 2 mg tablet Take 1 tablet by mouth daily at bedtime. - Blood-Glucose Meter,Continuous (DEXCOM G7 REGIONAL AGRONOMIST) [facility] Dx: E11.49. ?Insulin: Yes. Use to check blood sugars at least 4 times a day - Blood-Glucose Sensor (DEXCOM G7 SENSOR) [facility] Dx: E11.49. ?Insulin: Yes. Apply new sensor every ten (10) days - CPAP/BIPAP/OTHER Type .CPAPSettings into a note to see current settings/supplies/DME information. - clotrimazole (LOTRIMIN) 1 % cream Apply 1 application to affected area two times a day. - triamcinolone acetonide (KENALOG) 0.1 % cream Apply 1 application to affected area two times a day. Apply sparingly to top of ears - apixaban (ELIQUIS) 2.5 mg tab(s) Take 1 tablet by mouth twice daily. Per Cardiology. - sacubitril-valsartan (ENTRESTO) 97-103 mg tablet Take 1 tablet by mouth two times a day. Per Cardiology. - atorvastatin (LIPITOR) 40 mg tablet Take 40 mg by mouth once daily. - nitroglycerin sublingual (NITROQUICK) 0.4 mg SL tablet Dissolve 1 tablet under the tongue as needed for Chest Pain. If no pain relief call 911. 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* Essential hypertension [I10] Anal fissure [K60.2] 06/19/2006 10/09/2010 Shortness of breath [R06.02] 10/23/2006 10/09/2010 Unspecified pleural effusion [J90] 12/25/2006 10/09/2010 Coronary atherosclerosis [I25.10] 01/03/2009 Hyperlipemia [E78.5] 01/03/2009 Occlusion and stenosis of carotid artery withou*01/31/2009 01/26/2019 Unspecified Sleep Disturbance [G47.9] 01/31/2009 09/12/2015 Elevated prostate specific antigen (PSA) [R97.2*02/01/2009 01/19/2018 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] 11/30/2009 10/09/2010 BPH with obstruction/lower urinary tract sympto*08/08/2010 Skin mass [R22.9] 10/26/2010 05/13/2013 Anemia [D64.9] 05/12/2013 OA (osteoarthritis) of knee [M17.9] 09/23/2014 Atrial fibrillation (HCC) [I48.91] 05/13/2016 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] 07/30/2016 RBBB (right bundle branch block) [I45.10] 07/30/2016 Encounter for monitoring anti-arrhythmic therap*07/30/2016 COPD with exacerbation (HCC) [J44.1] 08/07/2016 06/01/2020 CKD (chronic kidney disease) stage 3, GFR 30-59*09/20/2017 12/15/2018 CKD (chronic kidney disease) stage 4, GFR 15-29*07/22/2018 Chronic diastolic CHF (congestive heart failure*07/22/2018 Chronic cough [R05.3] 06/01/2020 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] 11/02/2020 Hypercalcemia [E83.52] 11/23/2021 Wound of left leg [S81.802A] 06/12/2022 05/09/2023 Recurrent epistaxis [R04.0] 06/12/2022 05/09/2023 Candidal intertrigo [B37.2] 11/05/2024 HELDER on CPAP [G47.33] 09/19/2016 VHD (valvular heart disease) [I38] 02/15/[address] [R93.89] 02/15/2025 MGUS (monoclonal gammopathy of unknown signific*02/15/2025 Thrombocytopenia [D69.6] 07/26/2025 Stasis ulcer (HCC) [I83.009, L97.909] 07/26/2025 Pressure injury of left buttock, stage 1 [L89.3*07/26/2025 Encounter Status:Closed by KRISSY [facility]OR [facility] 07/28/25 [facility]INTMWS[facility] FEDERICO HU ([id number]) 1935 M Date Time Provider Department 07/27/25 NITHIN ACEVEDO INTMWS During your visit today, we recorded the following information about you: Deisi Morelos RN 07/27/2025 3:44 PM Signed Niya calling from [facility] to report plan of care for patient and shelter will visit patient 2 times a week for 2 weeks and 1 time a week for 1 weeks. [facility] will work with patient on continuing education on CHF, monitoring CHF, monitoring edema, and monitoring weight. Patient's legs do have some drainage. Niya asking if provider ok with orders for covering legs with adaptic, abd pad, and kerlix daily and prn? Patient also has shearing on buttocks. Asking if provider ok with orders for Calmoseptine or zinc oxide to buttocks/coccyx? Nursing is going to try and draw labs that were ordered on Friday when the visit patient. Please review and Advise, CEFERINO Cr Victor H, MD 07/27/2025 10:20 PM Signed Okay plan of care and wound care. Draw labs next week. Ciera Conner LPN 07/28/2025 12:01 PM Signed Order called back to [facility]. Allergies As of Date: 07/27/2025 Noted Allergy Reaction FEXOFENADINE 11/05/2024 16 - Unknown PROSCAR (FINASTERIDE) 07/02/2010 2 - Rash Date Reviewed: 07/26/2025 Reviewed by: Daxa Morin LPN - Fully Assessed Reason for Visit: Home Care Management [1305] Prescriptions as of 07/28/2025 - dapagliflozin propanediol (FARXIGA) 5 mg tablet Take 5 mg by mouth daily at bedtime. - furosemide (LASIX) 40 mg tablet Take 2 tablets by mouth every morning AND 1 tablet every evening. - doxazosin (CARDURA) 2 mg tablet Take 1 tablet by mouth daily at bedtime. - Blood-Glucose Meter,Continuous (DEXCOM G7 REGIONAL AGRONOMIST) [facility] Dx: E11.49. ?Insulin: Yes. Use to check blood sugars at least 4 times a day - Blood-Glucose Sensor (DEXCOM G7 SENSOR) [facility] Dx: E11.49. ?Insulin: Yes. Apply new sensor every ten (10) days - CPAP/BIPAP/OTHER Type .CPAPSettings into a note to see current settings/supplies/DME information. - clotrimazole (LOTRIMIN) 1 % cream Apply 1 application to affected area two times a day. - triamcinolone acetonide (KENALOG) 0.1 % cream Apply 1 application to affected area two times a day. Apply sparingly to top of ears - apixaban (ELIQUIS) 2.5 mg tab(s) Take 1 tablet by mouth twice daily. Per Cardiology. - sacubitril-valsartan (ENTRESTO) 97-103 mg tablet Take 1 tablet by mouth two times a day. Per Cardiology. - atorvastatin (LIPITOR) 40 mg tablet Take 40 mg by mouth once daily. - nitroglycerin sublingual (NITROQUICK) 0.4 mg SL tablet Dissolve 1 tablet under the tongue as needed for Chest Pain. If no pain relief call 911. Problem List As Of Date 07/27/2025 Noted Resolved Morbid obesity with BMI of 45.0-49.9, adult (HC* Type 2 diabetes mellitus with neurological maricarmen* Essential hypertension [I10] Anal fissure [K60.2] 06/19/2006 10/09/2010 Shortness of breath [R06.02] 10/23/2006 10/09/2010 Unspecified pleural effusion [J90] 12/25/2006 10/09/2010 Coronary atherosclerosis [I25.10] 01/03/2009 Hyperlipemia [E78.5] 01/03/2009 Occlusion and stenosis of carotid artery withou*01/31/2009 01/26/2019 Unspecified Sleep Disturbance [G47.9] 01/31/2009 09/12/2015 Elevated prostate specific antigen (PSA) [R97.2*02/01/2009 01/19/2018 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] 11/30/2009 10/09/2010 BPH with obstruction/lower urinary tract sympto*08/08/2010 Skin mass [R22.9] 10/26/2010 05/13/2013 Anemia [D64.9] 05/12/2013 OA (osteoarthritis) of knee [M17.9] 09/23/2014 Atrial fibrillation (HCC) [I48.91] 05/13/2016 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] 07/30/2016 RBBB (right bundle branch block) [I45.10] 07/30/2016 Encounter for monitoring anti-arrhythmic therap*07/30/2016 COPD with exacerbation (HCC) [J44.1] 08/07/2016 06/01/2020 CKD (chronic kidney disease) stage 3, GFR 30-59*09/20/2017 12/15/2018 CKD (chronic kidney disease) stage 4, GFR 15-29*07/22/2018 Chronic diastolic CHF (congestive heart failure*07/22/2018 Chronic cough [R05.3] 06/01/2020 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] 11/02/2020 Hypercalcemia [E83.52] 11/23/2021 Wound of left leg [S81.802A] 06/12/2022 05/09/2023 Recurrent epistaxis [R04.0] 06/12/2022 05/09/2023 Candidal intertrigo [B37.2] 11/05/2024 HELDER on CPAP [G47.33] 09/19/2016 VHD (valvular heart disease) [I38] 02/15/[address] [R93.89] 02/15/2025 MGUS (monoclonal gammopathy of unknown signific*02/15/2025 Thrombocytopenia [D69.6] 07/26/2025 Stasis ulcer (HCC) [I83.009, L97.909] 07/26/2025 Pressure injury of left buttock, stage 1 [L89.3*07/26/2025 Encounter Status:Closed by CIERA CONNER on 07/28/25 Normal [facility] Basic Metabolic Profile (BMP )on 07-26-2025 BUN Normal 4-19 [facility] Comment on above: Result Comment: Canc elled via OM: Order cancelled - Patient discharged Performed By: #### L [id number] #### [facility] [address] [place], [address] BUN/CRE Normal 10-20 [facility] Comment on above: Result Comment: Canc elled via OM: Order cancelled - Patient discharged Performed By: #### L [id number] #### [facility] [address] [place], [address] Calcium Normal 7.6-11.0 [facility] Comment on above: Result Comment: Canc elled via OM: Order cancelled - Patient discharged Performed By: #### L [id number] #### [facility] [address] [place], [address] CL Normal 98-108 [facility] Comment on above: Result Comment: Canc elled via OM: Order cancelled - Patient discharged Performed By: #### L [id number] #### [facility] [address] [place], [address] CO2 Normal 21.0-32.0 [facility] Comment on above: Result Comment: Canc elled via OM: Order cancelled - Patient discharged Performed By: #### L [id number] #### [facility] [address] [place], [address] CREAT,SERUM Normal 0.70-1.20 [facility] Comment on above: Result Comment: Canc elled via OM: Order cancelled - Patient discharged Performed By: #### L [id number] #### [facility] [address] [place], [address] eGFR Normal >60 [facility] Comment on above: Result Comment: Canc elled via OM: Order cancelled - Patient discharged Performed By: #### L [id number] #### [facility] [address] [place], [address] GAP Normal 5-15 [facility] Comment on above: Result Comment: Canc elled via OM: Order cancelled - Patient discharged Performed By: #### L [id number] #### [facility] [address] [place], [address] GLU Normal 70-99 [facility] Comment on above: Result Comment: Canc elled via OM: Order cancelled - Patient discharged Performed By: #### L [id number] #### [facility] [address] [place], [address] Potassium Normal 3.3-5.1 [facility] Comment on above: Result Comment: Canc elled via OM: Order cancelled - Patient discharged Performed By: #### L [id number] #### [facility] [address] [place], [address] Basic Metabolic Profile (BMP) Normal 133-145 [facility] Comment on above: Result Comment: Canc elled via OM: Order cancelled - Patient discharged Performed By: #### L [id number] #### [facility] [address] [place], [address] CBC W/Diff, Automatedon 09-0 9-2024 Absolute Neut Normal 2.0-7.7 [facility] Comment on above: Result Comment: Canc elled via OM: Order cancelled - Patient discharged Performed By: #### L [id number] #### [facility] [address] [place], [address] HCT Normal 40-54 [facility] Comment on above: Result Comment: Canc elled via OM: Order cancelled - Patient discharged Performed By: #### L [id number] #### [facility] [address] [place], [address] HGB Normal 13.0-16.5 [facility] Comment on above: Result Comment: Canc elled via OM: Order cancelled - Patient discharged Performed By: #### L [id number] #### [facility] [address] [place], [address] MCH Normal 27.0-32.0 [facility] Comment on above: Result Comment: Canc elled via OM: Order cancelled - Patient discharged Performed By: #### L [id number] #### [facility] [address] [place], [address] MCHC Normal 32-36 [facility] Comment on above: Result Comment: Canc elled via OM: Order cancelled - Patient discharged Performed By: #### L [id number] #### [facility] [address] [place], [address] MCV Normal 80-94 [facility] Comment on above: Result Comment: Canc elled via OM: Order cancelled - Patient discharged Performed By: #### L [id number] #### [facility] [address] [place], [address] NEUT% Normal 47-70 [facility] Comment on above: Result Comment: Canc elled via OM: Order cancelled - Patient discharged Performed By: #### L [id number] #### [facility] [address] [place], [address] PLT Normal 150-450 [facility] Comment on above: Result Comment: Canc elled via OM: Order cancelled - Patient discharged Performed By: #### L [id number] #### [facility] [address] [place], [address] RBC Normal 4.6-6.2 [facility] Comment on above: Result Comment: Canc elled via OM: Order cancelled - Patient discharged Performed By: #### L [id number] #### [facility] [address] [place], [address] RDW CV Normal 11.6-14.6 [facility] Comment on above: Result Comment: Canc elled via OM: Order cancelled - Patient discharged Performed By: #### L [id number] #### [facility] [address] [place], [address] RDW SD Normal 35.1-43.9 [facility] Comment on above: Result Comment: Canc elled via OM: Order cancelled - Patient discharged Performed By: #### L [id number] #### [facility] [address] [place], [address] WBC Normal 4.4-11.0 [facility] Comment on above: Result Comment: Canc elled via OM: Order cancelled - Patient discharged Performed By: #### L [id number] #### [facility] [address] [place], [address] CNOVon 07-26-2025 CNOV Office Visit (INTMWS ) FEDERICO HU Augustine ([id number]) 1935 M Date Time Provider Department 07/26/25 12:00 PM NITHIN ACEVEDO INTMWS During your visit today, we recorded the following information about you: Temperature Pulse Blood pressure Weight 96.3 degrees 64/minute 103/45 161.9 kg Nithin Acevedo MD 07/26/2025 11:14 PM Signed Subjective Federico Augustine Hu is a 89 year old male here with his spouse. Patient presents with: Transition Of Care Transitional Care Management Progress Note The patients TCM visit was performed within the 7 days of discharge. Patient's Date of discharge: 07/23/2025 Date of initial coordinator contact after discharge: NA Discharge diagnosis: acute CHF, CKD stage IV, anemia, DM type 2, Atrial fibrillation, Medication review completed Yes Nithin Acevedo MD Provider Documentation: In follow-up of hospitalization, Federico Hu is a 89 year old male with the chief complaint of transition of care. I have reviewed the patient's last hospital course including diagnostic testing performed during this hospitalization, their discharge medications, and my assessment and plan with the patient and any family members present at today's visit. He presented to the ER with a few weeks of shortness of breath, edema, and weight gain. He was diuresed and fluid restricted. His echo showed an EF of 65%. Anemia was stable. Atrial fibrillation was stable and chronic anticoagulation was continued. His diabetes mellitus was stable off insulin, since he had discontinued insulin months before due to frequent hypoglycemia. He was discharged on 120 mg of furosemide daily (80 mg in AM and 40 mg in PM). He normally followed with [facility], Dr. Harman Strickland. He had not seen his commutator operator since March, having cancelled his follow up. He was not on Jardiance, but Farxiga. He was taking Crestor. The history is provided by the spouse, the patient and medical records. Review of Systems Constitutional: Negative for fatigue and fever. HENT: Negative for congestion. Respiratory: Negative for cough, shortness of breath and wheezing. Cardiovascular: Positive for leg swelling. Negative for chest pain and palpitations. Gastrointestinal: Negative for diarrhea, nausea and vomiting. Genitourinary: Negative for dysuria. Skin: Positive for wound. Neurological: Negative for dizziness and headaches. ACTIVE PROBLEM LIST Morbid Obesity With Bmi of 45.0-49.9, Adult ([facility]) Type 2 Diabetes Mellitus With Neurological Manifestations, Controlled ([facility]) Essential Hypertension Coronary Atherosclerosis Hyperlipemia Bph With Obstruction/Lower Urinary Tract Symptoms Anemia Oa (Osteoarthritis) of Knee Atrial Fibrillation ([facility]) S/P Cabg X 2 Rbbb (Right Bundle Branch Block) Encounter for Monitoring Anti-Arrhythmic Therapy Ckd (Chronic Kidney Disease) Stage 4, Gfr 15-29 Ml/Min ([facility]) Chronic Diastolic Chf (Congestive Heart Failure) ([facility]) 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 doxazosin (CARDURA) 2 mg tablet Take 1 tablet by mouth daily at bedtime. Blood-Glucose Meter,Continuous (DEXCOM G7 REGIONAL AGRONOMIST) [facility] Dx: E11.49. Insulin: Yes. Use to check blood sugars at least 4 times a day Blood-Glucose Sensor (DEXCOM G7 SENSOR) [facility] Dx: E11.49. Insulin: Yes. Apply new sensor every ten (10) days CPAP/BIPAP/OTHER Type .CPAPSettings into a note to see current settings/supplies/DME information. clotrimazole (LOTRIMIN) 1 % cream Apply 1 application to affected area two times a day. furosemide (LASIX) 40 mg tablet Take one(1) tablet daily in the morning. Take one(1) tablet in the evening, every other day. Per Cardiology. (Patient taking differently: Take 80mg daily in the morning. Take 40mg in the evening. Per Cardiology.) triamcinolone acetonide (KENALOG) 0.1 % cream Apply 1 application to affected area two times a day. Apply sparingly to top of ears apixaban (ELIQUIS) 2.5 mg tab(s) Take 1 tablet by mouth twice daily. Per Cardiology. sacubitril-valsartan (ENTRESTO) 97-103 mg tablet Take 1 tablet by mouth two times a day. Per Cardiology. atorvastatin (LIPITOR) 40 mg tablet Take 40 mg by mouth once daily. nitroglycerin sublingual (NITROQUICK) 0.4 mg SL tablet Dissolve 1 tablet under the tongue as needed for Chest Pain. If no pain relief call 911. semaglutide (OZEMPIC) 1 mg/dose (4 mg/3 mL) pen Inject 1 mg subcutaneously one time a week. Per medication program. insulin degludec (TRESIBA FLEXTOUCH U-200) 200 unit/mL (3 mL) injection Inject 64 Units subcutaneously every morning. Pt Assistance Med[employer] (more content not included)... Normal [facility] GLUCOSE, BLOOD (POC)on 07-26 Glucose [Mass/Vol] 168 mg/dL Abnormal 74 - 99 mg/dL [facility] Comment on above: Location:[address], [place], [address] The Accu-Chek Inform II glucose meter has not been approved for testing on patients receiving intensive medical intervention or therapy and results from this point of care glucose test should not be used for patient management decisions in these cases. Inaccurate results may also occur from other interfering factors, such as N-acetylcysteine (blood concentrations of greater than 5mg/dL), galactose, extremes of hematocrit (<10 or >65), or high doses of ascorbic acid (vitamin C) greater than 3mg/dL. Consider alternate testing mechanisms (e.g. core lab, blood gas instrument) in the above situations. Interpretation and review of laboratory results Abnormal [facility] Basic Metabolic Profile (BMP )on 07-25-2025 BUN Normal 4-19 [facility] Comment on above: Result Comment: Canc elled via OM: Order cancelled - Patient discharged Performed By: #### L 499.0043 #### [facility] [address] [place], [address] BUN/CRE Normal 10-20 [facility] Comment on above: Result Comment: Canc elled via OM: Order cancelled - Patient discharged Performed By: #### L 499.0043 #### [facility] [address] [place], [address] Calcium Normal 7.6-11.0 [facility] Comment on above: Result Comment: Canc elled via OM: Order cancelled - Patient discharged Performed By: #### L 499.0043 #### [facility] [address] [place], [address] CL Normal 98-108 [facility] Comment on above: Result Comment: Canc elled via OM: Order cancelled - Patient discharged Performed By: #### L 499.0043 #### [facility] [address] [place], [address] CO2 Normal 21.0-32.0 [facility] Comment on above: Result Comment: Canc elled via OM: Order cancelled - Patient discharged Performed By: #### L 499.0043 #### [facility] [address] [place], [address] CREAT,SERUM Normal 0.70-1.20 [facility] Comment on above: Result Comment: Canc elled via OM: Order cancelled - Patient discharged Performed By: #### L 499.0043 #### [facility] [address] [place], [address] eGFR Normal >60 [facility] Comment on above: Result Comment: Canc elled via OM: Order cancelled - Patient discharged Performed By: #### L 499.0043 #### [facility] [address] [place], [address] GAP Normal 5-15 [facility] Comment on above: Result Comment: Canc elled via OM: Order cancelled - Patient discharged Performed By: #### L 499.0043 #### [facility] [address] [place], [address] GLU Normal 70-99 [facility] Comment on above: Result Comment: Canc elled via OM: Order cancelled - Patient discharged Performed By: #### L 499.0043 #### [facility] [address] [place], [address] Potassium Normal 3.3-5.1 [facility] Comment on above: Result Comment: Canc elled via OM: Order cancelled - Patient discharged Performed By: #### L 499.0043 #### [facility] [address] [place], [address] Basic Metabolic Profile (BMP) Normal 133-145 [facility] Comment on above: Result Comment: Canc elled via OM: Order cancelled - Patient discharged Performed By: #### L 499.0043 #### [facility] [address] [place], [address] CBC W/Diff, Automatedon 09-0 8-2024 Absolute Neut Normal 2.0-7.7 [facility] Comment on above: Result Comment: Canc elled via OM: Order cancelled - Patient discharged Performed By: #### L 499.0043 #### [facility] [address] [place], [address] HCT Normal 40-54 [facility] Comment on above: Result Comment: Canc elled via OM: Order cancelled - Patient discharged Performed By: #### L 499.0043 #### [facility] [address] [place], [address] HGB Normal 13.0-16.5 [facility] Comment on above: Result Comment: Canc elled via OM: Order cancelled - Patient discharged Performed By: #### L 499.0043 #### [facility] [address] [place], [address] MCH Normal 27.0-32.0 [facility] Comment on above: Result Comment: Canc elled via OM: Order cancelled - Patient discharged Performed By: #### L 499.0043 #### [facility] [address] [place], [address] MCHC Normal 32-36 [facility] Comment on above: Result Comment: Canc elled via OM: Order cancelled - Patient discharged Performed By: #### L 499.0043 #### [facility] [address] [place], [address] MCV Normal 80-94 [facility] Comment on above: Result Comment: Canc elled via OM: Order cancelled - Patient discharged Performed By: #### L 499.0043 #### [facility] [address] [place], [address] NEUT% Normal 47-70 [facility] Comment on above: Result Comment: Canc elled via OM: Order cancelled - Patient discharged Performed By: #### L 499.0043 #### [facility] [address] [place], [address] PLT Normal 150-450 [facility] Comment on above: Result Comment: Canc elled via OM: Order cancelled - Patient discharged Performed By: #### L 499.0043 #### [facility] [address] [place], [address] RBC Normal 4.6-6.2 [facility] Comment on above: Result Comment: Canc elled via OM: Order cancelled - Patient discharged Performed By: #### L 499.0043 #### [facility] [address] [place], [address] RDW CV Normal 11.6-14.6 [facility] Comment on above: Result Comment: Canc elled via OM: Order cancelled - Patient discharged Performed By: #### L 499.0043 #### [facility] [address] [place], [address] RDW SD Normal 35.1-43.9 [facility] Comment on above: Result Comment: Canc elled via OM: Order cancelled - Patient discharged Performed By: #### L 499.0043 #### [facility] [address] [place], [address] WBC Normal 4.4-11.0 [facility] Comment on above: Result Comment: Canc elled via OM: Order cancelled - Patient discharged Performed By: #### L 499.0043 #### [facility] [address] [place], [address] [facility] FEDERICO HU ([id number]) 1935 Date Time Provider Department 07/25/25 ACEVEDO, CORTNEY INTMWS During your visit today, we recorded the following information about you: Krissy Amor RN 07/25/2025 2:27 PM Signed Clemencia with [facility] calls to ask if provider would be willing to follow their HH orders for SN, PT, and OT. Patient discharged over the weekend from [facility] after treatment for CHF exacerbation. Call back number is [phone]. CEFERINO Rodriguez Victor H, MD 07/26/2025 11:49 PM Signed Yes. Please also do wound care left leg and gluteal area. Anthony Ardon RN 07/28/2025 10:38 AM Signed Tori with [facility] called and is notified of providers message and instructions. She voices understanding, and states she will let Clemencia know. Anthony Ardon RN Allergies As of Date: 07/25/2025 Noted Allergy Reaction FEXOFENADINE 11/05/2024 16 - Unknown PROSCAR (FINASTERIDE) 07/02/2010 2 - Rash Date Reviewed: 04/01/2025 Reviewed by: Gisell Cassidy APRN.HERBICIDE SPRAYER - Fully Assessed Reason for Visit: Orders [681] Prescriptions as of 07/28/2025 - dapagliflozin propanediol (FARXIGA) 5 mg tablet Take 5 mg by mouth daily at bedtime. - furosemide (LASIX) 40 mg tablet Take 2 tablets by mouth every morning AND 1 tablet every evening. - doxazosin (CARDURA) 2 mg tablet Take 1 tablet by mouth daily at bedtime. - Blood-Glucose Meter,Continuous (DEXCOM G7 REGIONAL AGRONOMIST) [facility] Dx: E11.49. ?Insulin: Yes. Use to check blood sugars at least 4 times a day - Blood-Glucose Sensor (DEXCOM G7 SENSOR) [facility] Dx: E11.49. ?Insulin: Yes. Apply new sensor every ten (10) days - CPAP/BIPAP/OTHER Type .CPAPSettings into a note to see current settings/supplies/DME information. - clotrimazole (LOTRIMIN) 1 % cream Apply 1 application to affected area two times a day. - triamcinolone acetonide (KENALOG) 0.1 % cream Apply 1 application to affected area two times a day. Apply sparingly to top of ears - apixaban (ELIQUIS) 2.5 mg tab(s) Take 1 tablet by mouth twice daily. Per Cardiology. - sacubitril-valsartan (ENTRESTO) 97-103 mg tablet Take 1 tablet by mouth two times a day. Per Cardiology. - atorvastatin (LIPITOR) 40 mg tablet Take 40 mg by mouth once daily. - nitroglycerin sublingual (NITROQUICK) 0.4 mg SL tablet Dissolve 1 tablet under the tongue as needed for Chest Pain. If no pain relief call 911. Problem List As Of Date 07/25/2025 Noted Resolved Morbid obesity with BMI of 45.0-49.9, adult (HC* Type 2 diabetes mellitus with neurological maricarmen* Essential hypertension [I10] Anal fissure [K60.2] 06/19/2006 10/09/2010 Shortness of breath [R06.02] 10/23/2006 10/09/2010 Unspecified pleural effusion [J90] 12/25/2006 10/09/2010 Coronary atherosclerosis [I25.10] 01/03/2009 Hyperlipemia [E78.5] 01/03/2009 Occlusion and stenosis of carotid artery withou*01/31/2009 01/26/2019 Unspecified Sleep Disturbance [G47.9] 01/31/2009 09/12/2015 Elevated prostate specific antigen (PSA) [R97.2*02/01/2009 01/19/2018 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] 11/30/2009 10/09/2010 BPH with obstruction/lower urinary tract sympto*08/08/2010 Skin mass [R22.9] 10/26/2010 05/13/2013 Anemia [D64.9] 05/12/2013 OA (osteoarthritis) of knee [M17.9] 09/23/2014 Atrial fibrillation (HCC) [I48.91] 05/13/2016 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] 07/30/2016 RBBB (right bundle branch block) [I45.10] 07/30/2016 Encounter for monitoring anti-arrhythmic therap*07/30/2016 COPD with exacerbation (HCC) [J44.1] 08/07/2016 06/01/2020 CKD (chronic kidney disease) stage 3, GFR 30-59*09/20/2017 12/15/2018 CKD (chronic kidney disease) stage 4, GFR 15-29*07/22/2018 Chronic diastolic CHF (congestive heart failure*07/22/2018 Chronic cough [R05.3] 06/01/2020 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] 11/02/2020 Hypercalcemia [E83.52] 11/23/2021 Wound of left leg [S81.802A] 06/12/2022 05/09/2023 Recurrent epistaxis [R04.0] 06/12/2022 05/09/2023 Candidal intertrigo [B37.2] 11/05/2024 HELDER on CPAP [G47.33] 09/19/2016 VHD (valvular heart disease) [I38] 02/15/[address] [R93.89] 02/15/2025 MGUS (monoclonal gammopathy of unknown signific*02/15/2025 Encounter Status:Closed by ANTHONY ARDON on 07/28/25 Normal [facility] Basic Metabolic Profile (BMP )on 07-24-2025 BUN Normal 4-19 [facility] Comment on above: Result Comment: Canc elled via OM: Order cancelled - Patient discharged Performed By: #### L 300.3900, L500.2500, L100.0100 #### [facility] [address] [place], [address] BUN/CRE Normal 10-20 [facility] Comment on above: Result Comment: Canc elled via OM: Order cancelled - Patient discharged Performed By: #### L 300.3900, L500.2500, L100.0100 #### [facility] [address] [place], [address] Calcium Normal 7.6-11.0 [facility] Comment on above: Result Comment: Canc elled via OM: Order cancelled - Patient discharged Performed By: #### L 300.3900, L500.2500, L100.0100 #### [facility] [address] [place], [address] CL Normal 98-108 [facility] Comment on above: Result Comment: Canc elled via OM: Order cancelled - Patient discharged Performed By: #### L 300.3900, L500.2500, L100.0100 #### [facility] [address] [place], [address] CO2 Normal 21.0-32.0 [facility] Comment on above: Result Comment: Canc elled via OM: Order cancelled - Patient discharged Performed By: #### L 300.3900, L500.2500, L100.0100 #### [facility] [address] [place], [address] CREAT,SERUM Normal 0.70-1.20 [facility] Comment on above: Result Comment: Canc elled via OM: Order cancelled - Patient discharged Performed By: #### L 300.3900, L500.2500, L100.0100 #### [facility] [address] [place], [address] eGFR Normal >60 [facility] Comment on above: Result Comment: Canc elled via OM: Order cancelled - Patient discharged Performed By: #### L 300.3900, L500.2500, L100.0100 #### [facility] [address] [place], [address] GAP Normal 5-15 [facility] Comment on above: Result Comment: Canc elled via OM: Order cancelled - Patient discharged Performed By: #### L 300.3900, L500.2500, L100.0100 #### [facility] [address] [place], [address] GLU Normal 70-99 [facility] Comment on above: Result Comment: Canc elled via OM: Order cancelled - Patient discharged Performed By: #### L 300.3900, L500.2500, L100.0100 #### [facility] [address] [place], [address] Potassium Normal 3.3-5.1 [facility] Comment on above: Result Comment: Canc elled via OM: Order cancelled - Patient discharged Performed By: #### L 300.3900, L500.2500, L100.0100 #### [facility] [address] [place], [address] Basic Metabolic Profile (BMP) Normal 133-145 [facility] Comment on above: Result Comment: Canc elled via OM: Order cancelled - Patient discharged Performed By: #### L 300.3900, L500.2500, L100.0100 #### [facility] [address] [place], [address] CBC W/Diff, Automatedon 09-0 -2024 Absolute Neut Normal 2.0-7.7 [facility] Comment on above: Result Comment: Canc elled via OM: Order cancelled - Patient discharged Performed By: #### L 300.3900, L500.2500, L100.0100 #### [facility] [address] [place], [address] HCT Normal 40-54 [facility] Comment on above: Result Comment: Canc elled via OM: Order cancelled - Patient discharged Performed By: #### L 300.3900, L500.2500, L100.0100 #### [facility] [address] [place], [address] HGB Normal 13.0-16.5 [facility] Comment on above: Result Comment: Canc elled via OM: Order cancelled - Patient discharged Performed By: #### L 300.3900, L500.2500, L100.0100 #### [facility] [address] [place], [address] MCH Normal 27.0-32.0 [facility] Comment on above: Result Comment: Canc elled via OM: Order cancelled - Patient discharged Performed By: #### L 300.3900, L500.2500, L100.0100 #### [facility] [address] [place], [address] MCHC Normal 32-36 [facility] Comment on above: Result Comment: Canc elled via OM: Order cancelled - Patient discharged Performed By: #### L 300.3900, L500.2500, L100.0100 #### [facility] [address] [place], [address] MCV Normal 80-94 [facility] Comment on above: Result Comment: Canc elled via OM: Order cancelled - Patient discharged Performed By: #### L 300.3900, L500.2500, L100.0100 #### [facility] [address] [place], [address] NEUT% Normal 47-70 [facility] Comment on above: Result Comment: Canc elled via OM: Order cancelled - Patient discharged Performed By: #### L 300.3900, L500.2500, L100.0100 #### [facility] [address] [place], [address] PLT Normal 150-450 [facility] Comment on above: Result Comment: Canc elled via OM: Order cancelled - Patient discharged Performed By: #### L 300.3900, L500.2500, L100.0100 #### [facility] [address] [place], [address] RBC Normal 4.6-6.2 [facility] Comment on above: Result Comment: Canc elled via OM: Order cancelled - Patient discharged Performed By: #### L 300.3900, L500.2500, L100.0100 #### [facility] [address] [place], [address] RDW CV Normal 11.6-14.6 [facility] Comment on above: Result Comment: Canc elled via OM: Order cancelled - Patient discharged Performed By: #### L 300.3900, L500.2500, L100.0100 #### [facility] [address] [place], [address] RDW SD Normal 35.1-43.9 [facility] Comment on above: Result Comment: Canc elled via OM: Order cancelled - Patient discharged Performed By: #### L 300.3900, L500.2500, L100.0100 #### [facility] [address] [place], [address] WBC Normal 4.4-11.0 [facility] Comment on above: Result Comment: Canc elled via OM: Order cancelled - Patient discharged Performed By: #### L 300.3900, L500.2500, L100.0100 #### [facility] [address] [place], [address] Absolute lymphocyte countOrd ered By: Nathaniel Beverly on 07-23-2025 Lymphocytes Auto (Unsp spec) [#/Vol] 0.68 10*3/uL Low 0.83-4.51 [facility] Absolute neutrophil countOrd ered By: Nathaniel Beverly on 07-23-2025 Neutrophils (Bld) [#/Vol] 3.9 10*3/uL 2.0-7.7 [facility] Anion gap in Serum or Plasma Ordered By: Nathaniel Beverly on 07-23-2025 Anion gap [Moles/Vol] 11 mmol/L 5-15 [facility] Automated lymphocyte count a s percentage of total leukocytesOrdered By: Nathaniel Beverly on 07-23-2025 Lymphocytes/100 WBC Auto (Unsp spec) 12.7 % Low 19-41 [facility] BUN/creatinine ratioOrdered By: Nathaniel Beverly on 07-23-2025 Urea nitrogen/Creatinine [Mass ratio] 19.2 mg/mg 10- [facility] Basic Metabolic Profile (BMP )on 07-23-2025 BUN/CRE 19.2 RATIO Normal - [facility] Comment on above: Performed By: #### L 300.3900, L500.2500, L100.0100 #### [facility] [address] [place], [address] Calcium [Mass/Vol] 10.6 mg/dL Normal 7.6-11.0 [facility] Comment on above: Performed By: #### L 300.3900, L500.2500, L100.0100 #### [facility] [address] [place], [address] Chloride [Moles/Vol] 106 mmol/L Normal 98-108 [facility] Comment on above: Performed By: #### L 300.3900, L500.2500, L100.0100 #### [facility] [address] [place], [address] CO2 [Moles/Vol] 25.8 mmol/L Normal 21.0-32.0 [facility] Comment on above: Performed By: #### L 300.3900, L500.2500, L100.0100 #### [facility] [address] [place], [address] Creatinine [Mass/Vol] 3.34 mg/dL High 0.70-1.20 [facility] Comment on above: Performed By: #### L 300.3900, L500.2500, L100.0100 #### [facility] [address] [place], [address] ECRCL 24.74 ml/min Low 50-250 [facility] Comment on above: Performed By: #### L 300.3900, L500.2500, L100.0100 #### [facility] [address] [place], [address] GAP 11 Normal 5-15 [facility] Comment on above: Performed By: #### L 300.3900, L500.2500, L100.0100 #### [facility] [address] [place], [address] GFR/1.73 sq M.predicted among non-blacks MDRD (S/P/Bld) [Vol rate/Area] 17 mL/min/{1.73_m2} Low >60 [facility] Comment on above: Result Comment: mL/m in/1.73m2 CKD-EPI Creatinine Equation (2020) Performed By: #### L 300.3900, L500.2500, L100.0100 #### [facility] [address] [place], [address] Glucose [Mass/Vol] 150 mg/dL High 70-99 [facility] Comment on above: Performed By: #### L 300.3900, L500.2500, L100.0100 #### [facility] [address] [place], [address] Potassium [Moles/Vol] 4.4 mmol/L Normal 3.3-5.1 [facility] Comment on above: Performed By: #### L 300.3900, L500.2500, L100.0100 #### [facility] [address] [place], [address] Sodium [Moles/Vol] 143 mmol/L Normal 133-145 [facility] Comment on above: Performed By: #### L 300.3900, L500.2500, L100.0100 #### [facility] [address] [place], [address] Urea nitrogen [Mass/Vol] 64 mg/dL High 4-19 [facility] Comment on above: Performed By: #### L 300.3900, L500.2500, L100.0100 #### [facility] [address] [place], [address] Basophil percentageOrdered B y: Nathaniel Beverly on 07-23-2025 Basophils/100 WBC (Bld) 0.7 % 0-1 [facility] Bedside Glucoseon 07-23-2025 FINGERSTICK GLU 126 mg/dL High 74-106 [facility] Comment on above: Result Comment: KATELYNN GEMENT OF PATIENT CARE PER NURSING PROTOCOL Performed By: #### L 300.3900, L500.2500, L100.0100 #### [facility] [address] [place], [address] FINGERSTICK GLU 126 mg/dL High 74-106 [facility] Comment on above: Result Comment: KATELYNN GEMENT OF PATIENT CARE PER NURSING PROTOCOL Performed By: #### L 499.0043 #### [facility] [address] [place], [address] CBC W/Diff, Automatedon 09-0 Absolute Lymph 0.68 X10 3/uL Low 0.83-4.51 [facility] Comment on above: Performed By: #### L 300.3900, L500.2500, L100.0100 #### [facility] [address] [place], [address] Absolute Neut 3.9 X10 3/uL Normal 2.0-7.7 [facility] Comment on above: Performed By: #### L 300.3900, L500.2500, L100.0100 #### [facility] [address] [place], [address] Basophils/100 WBC (Bld) 0.7 % Normal 0-1 [facility] Comment on above: Performed By: #### L 300.3900, L500.2500, L100.0100 #### [facility] [address] [place], [address] Eosinophils/100 WBC (Bld) 2.4 % Normal 0-5 [facility] Comment on above: Performed By: #### L 300.3900, L500.2500, L100.0100 #### [facility] [address] [place], [address] Erythrocyte distribution width (RBC) [Ratio] 14.8 % High 11.6-14.6 [facility] Comment on above: Performed By: #### L 300.3900, L500.2500, L100.0100 #### [facility] [address] [place], [address] Hematocrit (Bld) [Volume fraction] 26.5 % Low 40-54 [facility] Comment on above: Performed By: #### L 300.3900, L500.2500, L100.0100 #### [facility] [address] [place], [address] Hemoglobin (Bld) [Mass/Vol] 8.0 g/dL Low 13.0-16.5 [facility] Comment on above: Performed By: #### L 300.3900, L500.2500, L100.0100 #### [facility] [address] [place], [address] IG% 0.200 Normal 0.0-0.9 [facility] Comment on above: Result Comment: IG% - Immature Granulocytes (promyelocytes, myelocytes and metamyelocytes) > 1% indicates that a LEFT SHIFT is Present. Performed By: #### L 300.3900, L500.2500, L100.0100 #### [facility] [address] [place], [address] Lymphocytes/100 WBC (Bld) 12.7 % Low 19-41 [facility] Comment on above: Performed By: #### L 300.3900, L500.2500, L100.0100 #### [facility] [address] [place], [address] MCH (RBC) [Entitic mass] 26.3 pg Low 27.0-32.0 [facility] Comment on above: Performed By: #### L 300.3900, L500.2500, L100.0100 #### [facility] [address] [place], [address] MCHC (RBC) [Mass/Vol] 30.2 g/dL Low 32-36 [facility] Comment on above: Performed By: #### L 300.3900, L500.2500, L100.0100 #### [facility] [address] [place] [address] MCV (RBC) [Entitic vol] 87.2 fL Normal 80-94 [facility] Comment on above: Performed By: #### L 300.3900, L500.2500, L100.0100 #### [facility] [address] [place], [address] Monocytes/100 WBC (Bld) 11.2 % High 0-10 [facility] Comment on above: Performed By: #### L 300.3900, L500.2500, L100.0100 #### [facility] [address] [place], [address] Neutrophils/100 WBC (Bld) 72.8 % High 47-70 [facility] Comment on above: Performed By: #### L 300.3900, L500.2500, L100.0100 #### [facility] [address] [place], [address] Nucleated RBC (Bld) [#/Vol] 0 10*3/uL Normal 0-5 [facility] Comment on above: Performed By: #### L 300.3900, L500.2500, L100.0100 #### [facility] [address] [place], [address] Platelet mean volume (Bld) [Entitic vol] 12.4 fL High 6.2-12.0 [facility] Comment on above: Performed By: #### L 300.3900, L500.2500, L100.0100 #### [facility] [address] [place], [address] Platelets (Bld) [#/Vol] 110 10*3/uL Low 150-450 [facility] Comment on above: Performed By: #### L 300.3900, L500.2500, L100.0100 #### [facility] [address] [place], [address] RBC (Bld) [#/Vol] 3.04 10*6/uL Low 4.6-6.2 [facility] Comment on above: Performed By: #### L 300.3900, L500.2500, L100.0100 #### [facility] [address] [place], [address] RDW SD 47.6 fl High 35.1-43.9 [facility] Comment on above: Performed By: #### L 300.3900, L500.2500, L100.0100 #### [facility] [address] [place], [address] WBC (Bld) [#/Vol] 5.4 10*3/uL Normal 4.4-11.0 [facility] Comment on above: Performed By: #### L 300.3900, L500.2500, L100.0100 #### [facility] [address] [place], [address] Carbon dioxide, total [Moles /volume] in Central venous bloodOrdered By: Nathaniel Beverly on 07-23-2025 CO2 [Moles/Vol] 25.8 mmol/L 21.0-32.0 [facility] Chloride assayOrdered By: Marty Beverly on 07-23-2025 Chloride [Moles/Vol] 106 mmol/L 98-108 [facility] Eosinophil percentageOrdered By: Nathaniel Beverly on 07-23-2025 Eosinophils/100 WBC (Bld) 2.4 % 0-5 [facility] Erythrocyte distribution wid th ratioOrdered By: Nathaniel Beverly on 07-23-2025 Erythrocyte distribution width (RBC) [Ratio] 14.8 % High 11.6-14.6 [facility] Erythrocyte distribution wid th standard deviationOrdered By: Nathaniel Beverly on 07-23-2025 Erythrocyte distribution width (RBC) [Ratio] 47.6 fl High 35.1-43.9 [facility] Glomerular filtration rate ( GFR) estimation/1.73 sq m using serum, plasma, or whole bOrdered By: Natahniel Beverly on 07-23-2025 GFR/1.73 sq M.predicted among non-blacks MDRD (S/P/Bld) [Vol rate/Area] 17 mL/min/{1.73_m2} Low >60 [facility] Comment on above: mL/min/1.73m2 CKD-EP I Creatinine Equation (2020) [facility] deOrdered By: Nathaniel Beverly on 07-23-2025 Glucose [Mass/Vol] 126 mg/dL High 74-106 [facility] Comment on above: MANAGEMENT OF PATIEN T CARE PER NURSING PROTOCOL Hematocrit Auto (Bld) [Volum e fraction]Ordered By: Nathaniel Beverly on 07-23-2025 Hematocrit (Bld) [Volume fraction] 26.5 % Low 40-54 [facility] Hemoglobin measurementOrdere d By: Nathaniel Beverly on 07-23-2025 Hemoglobin (Bld) [Mass/Vol] 8.0 g/dL Low 13.0-16.5 [facility] Immature granulocytes/100 WB C Auto (Bld)Ordered By: Nathaniel Beverly on 07-23-2025 Immature granulocytes/100 WBC (Bld) 0.200 % 0.0-0.9 [facility] Comment on above: IG% - Immature Granu locytes (promyelocytes, myelocytes and metamyelocytes) > 1% indicates that a LEFT SHIFT is Present. MCV (mean corpuscular volume ) determinationOrdered By: Nathaniel Beverly on 07-23-2025 MCV (RBC) [Entitic vol] 87.2 fL 80-94 [facility] Mean corpuscular hemoglobin (MCH) determinationOrdered By: Nathaniel Beverly on 07-23-2025 MCH (RBC) [Entitic mass] 26.3 pg Low 27.0-32.0 [facility] Mean corpuscular hemoglobin concentration (MCHC) determinationOrdered By: Nathaniel Beverly on 07-23-2025 MCHC (RBC) [Mass/Vol] 30.2 g/dL Low 32-36 [facility] Mean platelet volume determi nationOrdered By: Nathaniel Beverly on 07-23-2025 Platelet mean volume (Bld) [Entitic vol] 12.4 fL High 6.2-12.0 [facility] Monocyte percentageOrdered B y: Nathaniel Bevelry on 07-23-2025 Monocytes/100 WBC (Bld) 11.2 % High 0-10 [facility] Neutrophil percentageOrdered By: Nathaniel Beverly on 07-23-2025 Neutrophils/100 WBC (Bld) 72.8 % High 47-70 [facility] Nucleated red blood cell per centageOrdered By: Nathaniel Beverly on 07-23-2025 Nucleated RBC/100 WBC (Bld) [Ratio] 0 % 0-5 [facility] Platelet countOrdered By: Marty Beverly on 07-23-2025 Platelets (Bld) [#/Vol] 110 10*3/uL Low 150-450 [facility] Potassium measurement (mass/ volume)Ordered By: Nathaniel Beverly on 07-23-2025 Potassium (Unsp spec) [Mass/Vol] 4.4 mmol/L 3.3-5.1 [facility] RBC Auto (Bld) [#/Vol]Ordere d By: Nathaniel Beverly on 07-23-2025 RBC (Bld) [#/Vol] 3.04 10*6/uL Low 4.6-6.2 [facility] Serum creatinine measurement (mass/volume)Ordered By: Nathaniel Beverly on 07-23-2025 Creatinine [Mass/Vol] 3.34 mg/dL High 0.70-1.20 [facility] Serum glucose measurement (m ass/volume)Ordered By: Nathaniel Beverly on 07-23-2025 Glucose [Mass/Vol] 150 mg/dL High 70-99 [facility] Serum or plasma calcium karthik urement (mass/volume)Ordered By: Nathaniel Beverly on 07-23-2025 Calcium [Mass/Vol] 10.6 mg/dL 7.6-11.0 [facility] Serum or plasma urea nitroge n measurement (mass/volume)Ordered By: Nathaniel eBverly on 07-23-2025 Urea nitrogen [Mass/Vol] 64 mg/dL High 4-19 [facility] Sodium levelOrdered By: Martin Beverly on 07-23-2025 Sodium [Moles/Vol] 143 mmol/L 133-145 [facility] White blood cell (WBC) count Ordered By: Nathaniel Beverly on 07-23-2025 WBC (Bld) [#/Vol] 5.4 10*3/uL 4.4-11.0 [facility] Basic Metabolic Profile (BMP )on 07-22-2025 BUN/CRE 19.4 RATIO Normal 10-20 [facility] Comment on above: Performed By: #### L 300.3900, L500.2500, L100.0100 #### [facility] [address] [place], [address] Calcium [Mass/Vol] 10.5 mg/dL Normal 7.6-11.0 [facility] Comment on above: Performed By: #### L 300.3900, L500.2500, L100.0100 #### [facility] [address] [place], [address] Chloride [Moles/Vol] 106 mmol/L Normal 98-108 [facility] Comment on above: Performed By: #### L 300.3900, L500.2500, L100.0100 #### [facility] [address] [place], [address] CO2 [Moles/Vol] 25.4 mmol/L Normal 21.0-32.0 [facility] Comment on above: Performed By: #### L 300.3900, L500.2500, L100.0100 #### [facility] [address] [place], [address] Creatinine [Mass/Vol] 3.29 mg/dL High 0.70-1.20 [facility] Comment on above: Performed By: #### L 300.3900, L500.2500, L100.0100 #### [facility] [address] [place], [address] ECRCL 25.12 ml/min Low 50-250 [facility] Comment on above: Performed By: #### L 300.3900, L500.2500, L100.0100 #### [facility] [address] [place], [address] GAP 11 Normal 5-15 [facility] Comment on above: Performed By: #### L 300.3900, L500.2500, L100.0100 #### [facility] [address] [place], [address] GFR/1.73 sq M.predicted among non-blacks MDRD (S/P/Bld) [Vol rate/Area] 17 mL/min/{1.73_m2} Low >60 [facility] Comment on above: Result Comment: mL/m in/1.73m2 CKD-EPI Creatinine Equation (2020) Performed By: #### L 300.3900, L500.2500, L100.0100 #### [facility] [address] [place], [address] Glucose [Mass/Vol] 147 mg/dL High 70-99 [facility] Comment on above: Performed By: #### L 300.3900, L500.2500, L100.0100 #### [facility] [address] [place], [address] Potassium [Moles/Vol] 4.6 mmol/L Normal 3.3-5.1 [facility] Comment on above: Performed By: #### L 300.3900, L500.2500, L100.0100 #### [facility] [address] [place], [address] Sodium [Moles/Vol] 142 mmol/L Normal 133-145 [facility] Comment on above: Performed By: #### L 300.3900, L500.2500, L100.0100 #### [facility] [address] [place], [address] Urea nitrogen [Mass/Vol] 64 mg/dL High 4-19 [facility] Comment on above: Performed By: #### L 300.3900, L500.2500, L100.0100 #### [facility] [address] [place], [address] Bedside Glucoseon 07-22-2025 FINGERSTICK GLU 150 mg/dL High 74-106 [facility] Comment on above: Result Comment: KATELYNN GEMENT OF PATIENT CARE PER NURSING PROTOCOL Performed By: #### L 499.0043 #### [facility] [address] [place], [address] FINGERSTICK GLU 147 mg/dL High 74-106 [facility] Comment on above: Result Comment: KATELYNN GEMENT OF PATIENT CARE PER NURSING PROTOCOL Performed By: #### L 499.0042 #### [facility] [address] [place], [address] FINGERSTICK GLU 134 mg/dL High 74-106 [facility] Comment on above: Result Comment: KATELYNN GEMENT OF PATIENT CARE PER NURSING PROTOCOL Performed By: #### L 499.0042 #### [facility] [address] [place], [address] FINGERSTICK GLU 140 mg/dL High 74-106 [facility] Comment on above: Result Comment: KATELYNN GEMENT OF PATIENT CARE PER NURSING PROTOCOL Performed By: #### L 501.080 #### [facility] [address] [place], [address] CBC W/Diff, Automatedon 09-0 Absolute Lymph 0.74 X10 3/uL Low 0.83-4.51 [facility] Comment on above: Performed By: #### L 499.0042 #### [facility] [address] [place], [address] Absolute Neut 4.0 X10 3/uL Normal 2.0-7.7 [facility] Comment on above: Performed By: #### L 499.0042 #### [facility] [address] [place], [address] Basophils/100 WBC (Bld) 0.7 % Normal 0-1 [facility] Comment on above: Performed By: #### L 499.0042 #### [facility] [address] [place], [address] Eosinophils/100 WBC (Bld) 3.4 % Normal 0-5 [facility] Comment on above: Performed By: #### L 499.0042 #### [facility] [address] [place], [address] Erythrocyte distribution width (RBC) [Ratio] 15.1 % High 11.6-14.6 [facility] Comment on above: Performed By: #### L 499.0042 #### [facility] [address] [place], [address] Hematocrit (Bld) [Volume fraction] 26.9 % Low 40-54 [facility] Comment on above: Performed By: #### L 499.0042 #### [facility] [address] [place], [address] Hemoglobin (Bld) [Mass/Vol] 8.1 g/dL Low 13.0-16.5 [facility] Comment on above: Performed By: #### L 499.0042 #### [facility] [address] [place], [address] IG% 0.200 Normal 0.0-0.9 [facility] Comment on above: Result Comment: IG% - Immature Granulocytes (promyelocytes, myelocytes and metamyelocytes) > 1% indicates that a LEFT SHIFT is Present. Performed By: #### L 499.0042 #### [facility] [address] [place], [address] Lymphocytes/100 WBC (Bld) 13.2 % Low 19-41 [facility] Comment on above: Performed By: #### L 499.0042 #### [facility] [address] [place], [address] MCH (RBC) [Entitic mass] 26.1 pg Low 27.0-32.0 [facility] Comment on above: Performed By: #### L 499.0042 #### [facility] [address] [place], [address] MCHC (RBC) [Mass/Vol] 30.1 g/dL Low 32-36 [facility] Comment on above: Performed By: #### L 499.0042 #### [facility] [address] [place], [address] MCV (RBC) [Entitic vol] 86.8 fL Normal 80-94 [facility] Comment on above: Performed By: #### L 499.0042 #### [facility] [address] [place], [address] Monocytes/100 WBC (Bld) 12.3 % High 0-10 [facility] Comment on above: Performed By: #### L 499.0042 #### [facility] [address] [place], [address] Neutrophils/100 WBC (Bld) 70.2 % High 47-70 [facility] Comment on above: Performed By: #### L 499.0042 #### [facility] [address] [place], [address] Nucleated RBC (Bld) [#/Vol] 0 10*3/uL Normal 0-5 [facility] Comment on above: Performed By: #### L 499.0042 #### [facility] [address] [place], [address] Platelet mean volume (Bld) [Entitic vol] 12.5 fL High 6.2-12.0 [facility] Comment on above: Performed By: #### L 499.0042 #### [facility] [address] [place], [address] Platelets (Bld) [#/Vol] 114 10*3/uL Low 150-450 [facility] Comment on above: Performed By: #### L 499.0042 #### [facility] [address] [place], [address] RBC (Bld) [#/Vol] 3.10 10*6/uL Low 4.6-6.2 [facility] Comment on above: Performed By: #### L 499.0042 #### [facility] [address] [place], [address] RDW SD 48.2 fl High 35.1-43.9 [facility] Comment on above: Performed By: #### L 499.0042 #### [facility] [address] [place], [address] WBC (Bld) [#/Vol] 5.6 10*3/uL Normal 4.4-11.0 [facility] Comment on above: Performed By: #### L 499.0042 #### [facility] [address] [place], [address] Calculated very low density lipoprotein (VLDL) cholesterol measurementOrdered By: Nathaniel Beverly on 07-22-2025 Calculated very low density lipoprotein (VLDL) cholesterol measurement 12 mg/dL 5-40 [facility] Echocardiogram study reportO rdered By: Jeni Mock on 07-22-2025 Study report [facility] [address] [place] [address] Echo Complete W/ Contrast 07/21/25 1402 MR#: [id number] Acct: [id number] Name: FEDERICO HU Rep #:[id number] : 1935 [id number] From: Jeni lindsay MD Attending Dr: Dr. Nathaniel Beverly MD Status: ADM IN Ordering Dr: Nathaniel Beverly MD Date: Location: [facility] Sex: M C Admitted: 07/21/25 Reason For Study Reason For Study: CHF Procedure This was a 2D Doppler, Color Flow transthoracic echocardiogram. The study was technically difficult. D/T body habitus & suboptimal apical imaging windows. Contrast injection was performed. The patientwas scanned supine. Exam performed portable in patient room. Left Ventricle Normal LV size. The estimated ejection fraction is 65 %. Unable to assess diastolic dysfunction. No regional wall motion abnormalities noted. Right Ventricle Normal RV size. Normal systolic function. Atria The left and right atria are normal. No doppler evidence for ASD. Mitral Valve There is no mitral valve stenosis. Trivial mitral valve insufficiency. Tricuspid Valve There is no tricuspid stenosis. Mild tricuspid valve insufficiency. Pulmonary artery systolic pressure is 40-45 mmHg. Aortic Valve Trisinus/trileaflet aortic valve. There is no aortic stenosis. No aortic valve insufficiency. Pulmonic Valve There is no pulmonic valvular stenosis. Trivial pulmonic valve insufficiency. Great Vessels Normal sized aortic root. Pericardium/Pleural No pericardial effusion. Medication Diluted definity 1.5ml given slow IV push to enhance endocardial definition. MMode/2D Measurements & Calculations LVIDd: 5.5 cm IVSd: 0.96 cm Ao root diam: 3.6 cm LVIDs: 3.3 cm LVPWd: 0.96 cm RVDd: 3.7 cm FS: 40.4 % LAV(MOD-bp): 78.3 ml LVAd ap4: 32.8 cm2 SV(MOD-sp4): 73.8 ml LAV(MOD-bp) Indexed: 28.1 ml/m2 LVLd ap4: 8.2 cm SI(MOD-sp4): 26.5 ml/m2 LAV(MOD-sp2): 75.8 ml EDV(MOD-sp4): 108.0 ml LAV(MOD-sp4): 74.0 ml EDV(sp4-el): 111.9 ml LVAs ap4: 15.5 cm2 LVLs ap4: 6.1 cm ESV(MOD-sp4): 34.2 ml ESV(sp4-el): 33.5 ml EF(MOD-sp4): 68.4 % EF(sp4-el): 70.1 % SV(sp4-el): 78.4 ml LA A4 area: 23.6 cm2 LA dimension(2D): 4.9 cm RA A4 area: 21.0 cm2 TAPSE: 1.7 cm Doppler Measurements & Calculations MV E max forrest: 124.4 cm/sec Ao V2 max: 164.1 cm/sec LV V1 max: 92.6 cm/sec Ao max P.8 mmHg LV V1 max P.4 mmHg Ao V2 mean: 107.7 cm/sec LV V1 mean P.6 mmHg Ao mean P.3 mmHg LV V1 mean: 59.8 cm/sec Ao V2 VTI: 36.5 cm LV V1 VTI: 20.5 cm AV (velocity ratio): 0.56 PA V2 max: 121.8 cm/sec TR max forrest: 293.2 cm/sec PA V2 mean: 86.6 cm/sec PI dec slope: 165.2 cm/sec2 TR max P.4 mmHg ECHO/Echo Complete W/ Contrast Interpretation Summary The estimated ejection fraction is 65 %. Unable to assess diastolic dysfunction. Trivial mitral valve insufficiency. Ordering Physician: Nathaniel Beverly Referring Physician: Nithin Acevedo Performed By: Tracie Restrepo RDCS, RVT 07/22/25 1253 Date _ Jeni Mock MD CC: Dr. Nathaniel Beverly MD; Dr. Nithin Acevedo MD ~ Date Dictated: 07/21/25 1402 Date Transcribed: 07/22/25 1253 Rn Telemetry: Signed [facility] Work Phone: Hemoglobin A1con 07-22-2025 HbA1c (Bld) [Mass fraction] 6.3 % High <=5.6 [facility] Comment on above: Result Comment: Norm al < 5.7 % Prediabetic 5.7 - 6.4 % Diabetic >or= 6.5 % Please note range changes. Performed By: #### L 300.3900, L500.2500, L100.0100 #### [facility] [address] [place], [place], [address] Hemoglobin A1c percentageOrd ered By: Nathaniel Beverly on 07-22-2025 HbA1c (Bld) [Mass fraction] 6.3 % High <5.7 [facility] Comment on above: Normal < 5.7 % Predi abetic 5.7 - 6.4 % Diabetic >or= 6.5 % Please note range changes. LDL calc ser/plasOrdered By: Nathaniel Beverly on 07-22-2025 Cholesterol in LDL [Mass/Vol] 14 mg/dL [facility] Comment on above: Vhzmfhbwju=725-656 m g/dL & Higher Dwng=296 mg/dL or greaterFriedwald Equation for LDL-C Lipid Profileon 07-22-2025 CHOL:HDL 1.63 Normal [facility] Comment on above: Performed By: #### L 300.3900, L500.2500, L100.0100 #### [facility] [address] [place], [address] Cholesterol [Mass/Vol] 67 mg/dL Normal <=200 [facility] Comment on above: Result Comment: Chol esterol level, Desirable <200 mg/dL Borderline high cholesterol 200-239 mg/dL High cholesterol >=240 mg/dL Recommendations of the NCEP Adult Treatment Panel for the following risk-cutoff thresholds for the [place] population. Performed By: #### L 300.3900, L500.2500, L100.0100 #### [facility] [address] [place], [place], [address] Cholesterol in HDL [Mass/Vol] 41 mg/dL Normal [facility] Comment on above: Result Comment: Jazmin onal Cholesterol Education Program (NCEP) guidelines: <40 mg/dL: Low HDL-cholesterol (major risk factor for CHD) >= 60 mg/dL: High HDL-cholesterol (negative risk factor for CHD) HDL-cholesterol is affected by a number of factors, e.g. smoking, exercise, hormones, sex and age. Performed By: #### L 300.3900, L500.2500, L100.0100 #### [facility] [address] [place], [address] Cholesterol in LDL [Mass/Vol] 14 mg/dL Normal [facility] Comment on above: Result Comment: Bord cqdgim=963-362 mg/dL Higher Ksnu=488 mg/dL or greater Friedwald Equation for LDL-C Performed By: #### L 300.3900, L500.2500, L100.0100 #### [facility] [address] [place], [address] Cholesterol in VLDL [Mass/Vol] 12 mg/dL Normal 5-40 [facility] Comment on above: Performed By: #### L 300.3900, L500.2500, L100.0100 #### [facility] [address] [place], [address] Triglyceride [Mass/Vol] 60 mg/dL Normal [facility] Comment on above: Result Comment: The drugs N-Acetylcysteine and Metamizole may falsely depress this assay. Normal range: <150 mg/dL Borderline High: 150-199 mg/dL High: 200-499 mg/dL Very High: >500 mg/dL Performed By: #### L 300.3900, L500.2500, L100.0100 #### [facility] [address] [place], [address] Magnesiumon 07-22-2025 Magnesium [Mass/Vol] 2.6 mg/dL High 1.5-2.2 [facility] Comment on above: Performed By: #### L 300.3900, L500.2500, L100.0100 #### [facility] [address] [place], [address] Magnesium measurement (mass/ volume)Ordered By: Nathaniel Beverly on 07-22-2025 Magnesium (Unsp spec) [Mass/Vol] 2.6 mg/dL High 1.5-2.2 [facility] Phosphoruson 07-22-2025 Phosphate [Mass/Vol] 4.3 mg/dL Normal 2.7-4.5 [facility] Comment on above: Performed By: #### L 300.3900, L500.2500, L100.0100 #### [facility] [address] [place], [address] Screening total cholesterol/ high density lipoprotein (HDL) cholesterol ratioOrdered By: Nathaniel Beverly on 07-22-2025 Cholesterol.total/Cho lesterol in HDL [Mass ratio] 1.63 {ratio} [facility] Serum or plasma cholesterol in HDL measurement (mass/volume)Ordered By: Nathaniel Beverly on 07-22-2025 Cholesterol in HDL [Mass/Vol] 41 mg/dL >40 [facility] Comment on above: National Cholesterol Education Program (NCEP) guidelines:<40 mg/dL: Low HDL-cholesterol (major risk factor for CHD)>= 60 mg/dL: High HDL-cholesterol (negative risk factor for CHD)HDL-cholesterol is affected by a number of factors, e.g. smoking, exercise, hormones, sex and age. Serum or plasma cholesterol measurement (mass/volume)Ordered By: Nathaniel Beverly on 07-22-2025 Cholesterol [Mass/Vol] 67 mg/dL <201 [facility] Comment on above: Cholesterol level, D esirable <200 mg/dLBorderline high cholesterol 200-239 mg/dLHigh cholesterol >=240 mg/dLRecommendations of the NCEP Adult Treatment Panel for the following risk-cutoff thresholds for the [place] population. TSH DL <= 0.005 mIU/L QnOrde red By: Nathaniel Beverly on 07-22-2025 TSH Qn 3.940 uIU/mL 0.300-4.200 [facility] Thyroid Stim Hormone (TSH)on 07-22-2025 TSH 3.940 uIU/mL Normal 0.300-4.200 [facility] Comment on above: Performed By: #### L 300.3900, L500.2500, L100.0100 #### [facility] [address] [place], [address] Triglycerides measurementOrd ered By: Nathaniel Beverly on 07-22-2025 Triglyceride [Mass/Vol] 60 mg/dL <199 [facility] Comment on above: The drugs N-Acetylcy steine and Metamizole may falsely depress this assay. Normal range: <150 mg/dLBorderline High: 150-199 mg/dLHigh: 200-499 mg/dLVery High: >500 mg/dL 12 Lead EKGon 07-21-2025 12 Lead EKG [facility] [address] [place] [address] 12 Lead EKG 07/21/25 1053 MR#: [id number] Acct: [id number] Name: FEDERICO HU Rep #: [id number] : 1935 [id number] From: Jeni Mock MD Attending Dr: Dr. Nathaniel Beverly MD Status: DIS IN Ordering Dr: Fely Parra DO Date: 07/21/25 Location: [facility] Sex: M C Admitted: 07/21/25 Test Reason : Blood Pressure : */* mmHG Vent. Rate : 71 BPM Atrial Rate : * BPM P-R Int : * ms QRS Dur : 152 ms QT Int : 448 ms P-R-T Axes : * 99 14 degrees QTcB Int : 486 ms Atrial fibrillation Right bundle branch block Abnormal ECG Confirmed by EMILI ESCOBEDO, KATELIN ([id number]), supervising editor news reel KEZIA BENAVIDES ([id number]) on 07/25/2025 8:58:26 AM Referred By: Confirmed By: KATELIN MOCK MD 07/25/25 0858 Date Jeni Mock MD CC: Dr. Nathaniel Bevelry MD; Dr. Fely Parra DO; Dr. Nithin Acevedo MD Signed Normal [facility] Absolute lymphocyte countOrd ered By: Fely Parra on 07-21-2025 Lymphocytes Auto (Unsp spec) [#/Vol] 0.66 10*3/uL Low 0.83-4.51 [facility] Absolute neutrophil countOrd ered By: Fely Parra on 07-21-2025 Neutrophils (Bld) [#/Vol] 3.9 10*3/uL 2.0-7.7 [facility] Anion gap in Serum or Plasma Ordered By: Fely Parra on 07-21-2025 Anion gap [Moles/Vol] 14 mmol/L 5- [facility] Automated lymphocyte count a s percentage of total leukocytesOrdered By: Fely Parra on 07-21-2025 Lymphocytes/100 WBC Auto (Unsp spec) 12.7 % Low 19-41 [facility] BUN/creatinine ratioOrdered By: Fely Parra on 07-21-2025 Urea nitrogen/Creatinine [Mass ratio] 20.0 mg/mg 10- [facility] Basic Metabolic Profile (BMP )on 07-21-2025 BUN/CRE 20.0 RATIO Normal - [facility] Comment on above: Performed By: #### L 300.3900, L500.2500, L100.0100 #### [facility] [address] [place], [address] Calcium [Mass/Vol] 10.7 mg/dL Normal 7.6-11.0 [facility] Comment on above: Performed By: #### L 300.3900, L500.2500, L100.0100 #### [facility] [address] [place], [address] Chloride [Moles/Vol] 106 mmol/L Normal 98-108 [facility] Comment on above: Performed By: #### L 300.3900, L500.2500, L100.0100 #### [facility] [address] [place], [address] CO2 [Moles/Vol] 22.6 mmol/L Normal 21.0-32.0 [facility] Comment on above: Performed By: #### L 300.3900, L500.2500, L100.0100 #### [facility] [address] [place], [address] Creatinine [Mass/Vol] 3.12 mg/dL High 0.70-1.20 [facility] Comment on above: Performed By: #### L 300.3900, L500.2500, L100.0100 #### [facility] [address] [place], [address] ECRCL 25.92 ml/min Low 50-250 [facility] Comment on above: Performed By: #### L 300.3900, L500.2500, L100.0100 #### [facility] [address] [place], [address] GAP 14 Normal 5-15 [facility] Comment on above: Performed By: #### L 300.3900, L500.2500, L100.0100 #### [facility] [address] [place], [address] GFR/1.73 sq M.predicted among non-blacks MDRD (S/P/Bld) [Vol rate/Area] 18 mL/min/{1.73_m2} Low >60 [facility] Comment on above: Result Comment: mL/m in/1.73m2 CKD-EPI Creatinine Equation (2020) Performed By: #### L 300.3900, L500.2500, L100.0100 #### [facility] [address] [place], [address] Glucose [Mass/Vol] 166 mg/dL High 70-99 [facility] Comment on above: Performed By: #### L 300.3900, L500.2500, L100.0100 #### [facility] [address] [place], [address] Potassium [Moles/Vol] 4.6 mmol/L Normal 3.3-5.1 [facility] Comment on above: Performed By: #### L 300.3900, L500.2500, L100.0100 #### [facility] [address] [place], [address] Sodium [Moles/Vol] 142 mmol/L Normal 133-145 [facility] Comment on above: Performed By: #### L 300.3900, L500.2500, L100.0100 #### [facility] [address] [place], [address] Urea nitrogen [Mass/Vol] 63 mg/dL High 4-19 [facility] Comment on above: Performed By: #### L 300.3900, L500.2500, L100.0100 #### [facility] [address] [place], [address] Basophil percentageOrdered B y: Remus Ungur on 07-21-2025 Basophils/100 WBC (Bld) 0.8 % 0-1 [facility] Bedside Glucoseon 07-21-2025 FINGERSTICK GLU 170 mg/dL High 74-106 [facility] Comment on above: Result Comment: KATELYNN GEMENT OF PATIENT CARE PER NURSING PROTOCOL Performed By: #### L 499.0043 #### [facility] [address] [place], [address] FINGERSTICK GLU 144 mg/dL High 74-106 [facility] Comment on above: Result Comment: KATELYNN GEMENT OF PATIENT CARE PER NURSING PROTOCOL Performed By: #### L 300.3900, L500.2500, L100.0100 #### [facility] [address] [place], [address] CBC W/Diff, Automatedon Absolute Lymph 0.66 X10 3/uL Low 0.83-4.51 [facility] Comment on above: Performed By: #### L 300.3900, L500.2500, L100.0100 #### [facility] [address] [place], [address] Absolute Neut 3.9 X10 3/uL Normal 2.0-7.7 [facility] Comment on above: Performed By: #### L 300.3900, L500.2500, L100.0100 #### [facility] [address] [place], [address] Basophils/100 WBC (Bld) 0.8 % Normal 0-1 [facility] Comment on above: Performed By: #### L 300.3900, L500.2500, L100.0100 #### [facility] [address] [place], [address] Eosinophils/100 WBC (Bld) 2.9 % Normal 0-5 [facility] Comment on above: Performed By: #### L 300.3900, L500.2500, L100.0100 #### [facility] [address] [place], [address] Erythrocyte distribution width (RBC) [Ratio] 15.0 % High 11.6-14.6 [facility] Comment on above: Performed By: #### L 300.3900, L500.2500, L100.0100 #### [facility] [address] [place], [address] Hematocrit (Bld) [Volume fraction] 29.3 % Low 40-54 [facility] Comment on above: Performed By: #### L 300.3900, L500.2500, L100.0100 #### [facility] [address] [place], [address] Hemoglobin (Bld) [Mass/Vol] 8.7 g/dL Low 13.0-16.5 [facility] Comment on above: Performed By: #### L 300.3900, L500.2500, L100.0100 #### [facility] [address] [place], [address] IG% 0.600 Normal 0.0-0.9 [facility] Comment on above: Result Comment: IG% - Immature Granulocytes (promyelocytes, myelocytes and metamyelocytes) > 1% indicates that a LEFT SHIFT is Present. Performed By: #### L 300.3900, L500.2500, L100.0100 #### [facility] [address] [place], [address] Lymphocytes/100 WBC (Bld) 12.7 % Low 19-41 [facility] Comment on above: Performed By: #### L 300.3900, L500.2500, L100.0100 #### [facility] [address] [place], [address] MCH (RBC) [Entitic mass] 26.2 pg Low 27.0-32.0 [facility] Comment on above: Performed By: #### L 300.3900, L500.2500, L100.0100 #### [facility] [address] [place], [address] MCHC (RBC) [Mass/Vol] 29.7 g/dL Low 32-36 [facility] Comment on above: Performed By: #### L 300.3900, L500.2500, L100.0100 #### [facility] [address] [place], [address] MCV (RBC) [Entitic vol] 88.3 fL Normal 80-94 [facility] Comment on above: Performed By: #### L 300.3900, L500.2500, L100.0100 #### [facility] [address] [place], [address] Monocytes/100 WBC (Bld) 9.0 % Normal 0-10 [facility] Comment on above: Performed By: #### L 300.3900, L500.2500, L100.0100 #### [facility] [address] [place], [address] Neutrophils/100 WBC (Bld) 74.0 % High 47-70 [facility] Comment on above: Performed By: #### L 300.3900, L500.2500, L100.0100 #### [facility] [address] [place], [address] Nucleated RBC (Bld) [#/Vol] 0 10*3/uL Normal 0-5 [facility] Comment on above: Performed By: #### L 300.3900, L500.2500, L100.0100 #### [facility] [address] [place], [address] Platelet mean volume (Bld) [Entitic vol] 12.2 fL High 6.2-12.0 [facility] Comment on above: Performed By: #### L 300.3900, L500.2500, L100.0100 #### [facility] [address] [place], [address] Platelets (Bld) [#/Vol] 120 10*3/uL Low 150-450 [facility] Comment on above: Performed By: #### L 300.3900, L500.2500, L100.0100 #### [facility] [address] [place], [address] RBC (Bld) [#/Vol] 3.32 10*6/uL Low 4.6-6.2 [facility] Comment on above: Performed By: #### L 300.3900, L500.2500, L100.0100 #### [facility] [address] [place], [address] RDW SD 48.8 fl High 35.1-43.9 [facility] Comment on above: Performed By: #### L 300.3900, L500.2500, L100.0100 #### [facility] [address] [place], [address] WBC (Bld) [#/Vol] 5.2 10*3/uL Normal 4.4-11.0 [facility] Comment on above: Performed By: #### L 300.3900, L500.2500, L100.0100 #### [facility] [address] [place], [place], [address] Carbon dioxide, total [Moles /volume] in Central venous bloodOrdered By: Fely Parra on 07-21-2025 CO2 [Moles/Vol] 22.6 mmol/L 21.0-32.0 [facility] Chest 1 View (Portable)on Chest 1 View (Portable) [facility] Imaging Services [address] [place] [address] Chest 1 View (Portable) MR#: [id number] Acct: [id number] Name: FEDERICO HU Rep #: [id number] : 1935 M 89 From: Jamel Moore MD PCP: Dr. Nithin Acevedo MD Status: [facility] ER Study: Chest 1 View (Portable) Date of Exam: 07/21/25 Exam# [id number] Ordering Dr: Fely Parra DO PROCEDURE: CHEST 1 VIEW (PORTABLE) 07/21/2025 REASON FOR EXAM: DYSPNEA TECHNIQUE: Frontal view of the chest. COMPARISON: Chest x-ray January 15, 2022. FINDINGS: Lungs: The lungs are symmetrically expanded. Lung volumes are at the lower end of normal. Patchy bilateral perihilar and basal ground-glass and airspace opacities noted. This could be seen with pulmonary edema, mild acute infiltrate/pneumonia or malignancy/metastatic disease. Clinical correlation is advised. Follow-up imaging in 2 weeks to confirm complete resolution is advised. If persistent or worsening, consider chest CT with contrast. There is no consolidation. Pleura: No significant pleural effusion seen. There is no evidence of pneumothorax. Mediastinum: There is no mediastinal widening or mediastinal shift. Heart: The cardiac silhouette is mildly enlarged. Vascular: Calcified aortic atherosclerosis. Tapan: The pulmonary tapan are not enlarged or retracted. Osseous: No acute fracture is seen. Median sternotomy changes are noted. RAD/Chest 1 View (Portable) IMPRESSION: Mild cardiac enlargement. - Perihilar and basal pulmonary opacities, differential and recommendations as discussed above. Reading Location: [id number] CC: Dr. Fely Parra DO; Dr. Nithin Acevedo MD Rn Telemetry: Signed Normal [facility] Chloride assayOrdered By: Carolina Parra on 07-21-2025 Chloride [Moles/Vol] 106 mmol/L 98-108 [facility] Echo Complete W/ Contraston 07-21-2025 Echo Complete W/ Contrast [facility] [address] [place] [address] Echo Complete W/ Contrast 07/21/25 1402 MR#: [id number] Acct: [id number] Name: FEDERICO HU Rep #: [id number] : 1935 89 From: Jeni Mock MD Attending Dr: Dr. Nathaniel Beverly MD Status: ADM IN Ordering Dr: Nathaniel Beverly MD Date: 07/21/25 Location: PCU Sex: M C Admitted: 07/21/25 Reason For Study Reason For Study: CHF Procedure This was a 2D Doppler, Color Flow transthoracic echocardiogram. The study was technically difficult. D/T body habitus suboptimal apical imaging windows. Contrast injection was performed. The patient was scanned supine. Exam performed portable in patient room. Left Ventricle Normal LV size. The estimated ejection fraction is 65 %. Unable to assess diastolic dysfunction. No regional wall motion abnormalities noted. Right Ventricle Normal RV size. Normal systolic function. Atria The left and right atria are normal. No doppler evidence for ASD. Mitral Valve There is no mitral valve stenosis. Trivial mitral valve insufficiency. Tricuspid Valve There is no tricuspid stenosis. Mild tricuspid valve insufficiency. Pulmonary artery systolic pressure is 40-45 mmHg. Aortic Valve Trisinus/trileaflet aortic valve. There is no aortic stenosis. No aortic valve insufficiency. Pulmonic Valve There is no pulmonic valvular stenosis. Trivial pulmonic valve insufficiency. Great Vessels Normal sized aortic root. Pericardium/Pleural No pericardial effusion. Medication Diluted definity 1.5ml given slow IV push to enhance endocardial definition. MMode/2D Measurements Calculations LVIDd: 5.5 cm IVSd: 0.96 cm Ao root diam: 3.6 cm LVIDs: 3.3 cm LVPWd: 0.96 cm RVDd: 3.7 cm FS: 40.4 % LAV(MOD-bp): 78.3 ml LVAd ap4: 32.8 cm2 SV(MOD-sp4): 73.8 ml LAV(MOD-bp) Indexed: 28.1 ml/m2 LVLd ap4: 8.2 cm SI(MOD-sp4): 26.5 ml/m2 LAV(MOD-sp2): 75.8 ml EDV(MOD-sp4): 108.0 ml LAV(MOD-sp4): 74.0 ml EDV(sp4-el): 111.9 ml LVAs ap4: 15.5 cm2 LVLs ap4: 6.1 cm ESV(MOD-sp4): 34.2 ml ESV(sp4-el): 33.5 ml EF(MOD-sp4): 68.4 % EF(sp4-el): 70.1 % SV(sp4-el): 78.4 ml LA A4 area: 23.6 cm2 LA dimension(2D): 4.9 cm RA A4 area: 21.0 cm2 TAPSE: 1.7 cm Doppler Measurements Calculations MV E max forrest: 124.4 cm/sec Ao V2 max: 164.1 cm/sec LV V1 max: 92.6 cm/sec Ao max P.8 mmHg LV V1 max P.4 mmHg Ao V2 mean: 107.7 cm/sec LV V1 mean P.6 mmHg Ao mean P.3 mmHg LV V1 mean: 59.8 cm/sec Ao V2 VTI: 36.5 cm LV V1 VTI: 20.5 cm AV (velocity ratio): 0.56 PA V2 max: 121.8 cm/sec TR max forrest: 293.2 cm/sec PA V2 mean: 86.6 cm/sec PI dec slope: 165.2 cm/sec2 TR max P.4 mmHg ECHO/Echo Complete W/ Contrast Interpretation Summary The estimated ejection fraction is 65 %. Unable to assess diastolic dysfunction. Trivial mitral valve insufficiency. Ordering Physician: Nathaniel Beverly Referring Physician: Nithin Acevedo Performed By: Tracie Restrepo RDCS, RVT 07/22/25 1253 Date Jeni Mock MD CC: Dr. Nathaniel Beverly MD; Dr. Nithin Acevedo MD Date Dictated: 07/21/25 1402 Date Transcribed: 07/22/25 1253 Rn Telemetry: Signed Normal [facility] Emergency Department Summary on 07-21-2025 Emergency Department Summary [facility] Medical Records Department [address] [place] [address] Emergency Department Summary 07/21/25 MR#: [id number] Acct: [id number] Name: FEDERICO HU Rep #: [id number] : 1935 89 From: Fely Parra DO PCP: Dr. Nithin Acevedo MD Status:ADM IN Location: [place] [address] HPI History of Present Illness Chief Complaint: Shortness of Breath Detail of Chief Complaint: Shortness of breath Informant: patient Narrative Narrative: Patient presents to the emergency department with complaint of shortness of breath for several weeks. Complains of bilateral leg swelling and exertional dyspnea. Has been sleeping in a recliner for a few weeks because he cannot lay flat. Patient history of A-fib as well as history of CHF and coronary artery disease. Currently on warfarin. Does have a cough and at times bringing up some green phlegm. He has had no fever. [facility] Medical History Afib CAD (coronary artery disease) CHF (congestive heart failure) Diabetes Home Medications ???Medication ???Instructions ???Recorded ???Last Taken ???Type Lovastatin [Mevacor] 40 mg PO QHS CHOLESTEROL 07/02/16 07/11/16 History doxazosin 2 mg tablet 2 mg PO QHS PROSTATE 07/02/16/04/01 History multivitamin with folic acid 400 1 tab PO DAILY SUPPLEMENT 07/02/16 07/11/16 History mcg tablet (Thera) nitroglycerin 0.4 mg sublingual 0.4 mg sublingual PRN PRN CHEST Unknown History tablet (Nitrostat) PAIN spironolactone 25 mg tablet 25 mg PO QHS BP 04/01/18 Unknown H istory albuterol sulfate 90 mcg/actuation 2 puff inhalation Q4H PRN PRN Unknown Rx aerosol inhaler Wheezing ##1 vitamin E (dl, acetate) 90 mg (200 200 unit PO DAILY 01/07/19 Unkno wn History unit) capsule apixaban 2.5 mg tablet (Eliquis) 2.5 mg PO BID 03/27/24 Unknown His tory dapagliflozin propanediol 5 mg 5 mg PO QHS 03/27/24 Unknown Histo ry tablet (Farxiga) ferrous sulfate 137 mg (45 mg 137 mg PO DAILY 03/27/24 Unknown H istory iron) tablet,extended release insulin degludec 100 unit/mL 40 unit subcut DAILY 03/27/24 Unkn own History subcutaneous solution (Tresiba U-100 Insulin) atorvastatin 40 mg tablet 40 mg PO DAILY 07/21/25 Unknown Hi story empagliflozin 10 mg tablet 10 mg PO DAILY 07/21/25 Unknown Hi story (Jardiance) furosemide 40 mg tablet 40 mg PO BID 07/21/25 Unknown Hist ory sacubitril 97 mg-valsartan 103 mg 1 tab PO BID 07/21/25 Unknown His tory tablet (Entresto) Allergy/AdvReac Type Severity Reaction Status Date / Time finasteride (From [employer]) Allergy Hives Verified 07/21/25 10:26 Social History (Updated 07/21/25 @ 10:37 by Irma Hensley) household members: family Smoking Status: Former smoker ROS ROS ED ROS Narrative Weight gain Review of Systems ROS Unobtainable: other Constitutional Constitutional ED: Reports lethargy; Denies chills, fever(s), sweats or weight loss Eyes Eyes: Denies blurry vision, change in vision or diplopia ENT ENT ED: Denies rhinorrhea or sore throat Cardiovascular Cardiovascular: Reports orthopnea and racing heartbeat; Denies chest pain Respiratory/Chest Respiratory/Chest: Reports cough, dyspnea, dyspnea on exertion, orthopnea and sputum Gastrointestinal Gastrointestinal: Denies abdominal pain, diarrhea, nausea or vomiting Genitourinary Genitourinary ED: Denies dysuria, hematuria or urinary frequency Musculoskeletal Musculoskeletal: Reports other Details: Leg edema ; Denies arthralgias, back pain, myalgias or neck pain Integumentary Denies abscess, Abrasions or rash Neurologic Neurologic: Denies headache(s) or weakness Psychiatric Psychiatric: Denies anxiety, depression or suicidal thoughts Endocrine Endocrinology: Denies polydipsia, polyphagia or polyuria Hematologic/Lymphatic Hematologic/Lymphatic: Denies easy bleeding, easy bruising or lymphadenopathy Allergic/Immunologic Allergic/Immunologic ED: Denies mouth swelling, tongue swelling or urticaria EXAM Physical Exam Const Vital Signs: 07/21/25 10:26 07/21/25 10:42 07/21/25 10:44 Temperature 97.8 F Temperature Source Oral Pulse Rate 76 Respiratory Rate 20 H Respiratory Effort Short of Breath Respiratory Depth Normal Respiratory Pattern Normal Blood Pressure 123/41 H Blood Pressure Mean 68 Pulse Ox 96 95 Oxygen Delivery Method Room Air Room Air Room Air Positive well nourished and well developed General Appearance ED: well developed and NAD HEENT Reports TM's clear and moist mucous membranes normocephalic and atraumatic; Negative for trauma or tenderness Tympanic Membrane ED: Yes TM's clear Eyes PERRL and EOMs intact bilaterally General Eye ED: Negative for pa (more content not included)... Normal [facility] Eosinophil percentageOrdered By: Fely Parra on 07-21-2025 Eosinophils/100 WBC (Bld) 2.9 % 0-5 [facility] Erythrocyte distribution wid th ratioOrdered By: Fely Parra on 07-21-2025 Erythrocyte distribution width (RBC) [Ratio] 15.0 % High 11.6-14.6 [facility] Erythrocyte distribution wid th standard deviationOrdered By: Fely Parra on 07-21-2025 Erythrocyte distribution width (RBC) [Ratio] 48.8 fl High 35.1-43.9 [facility] Glomerular filtration rate ( GFR) estimation/1.73 sq m using serum, plasma, or whole bOrdered By: Fely Parra on 07-21-2025 GFR/1.73 sq M.predicted among non-blacks MDRD (S/P/Bld) [Vol rate/Area] 18 mL/min/{1.73_m2} Low >60 [facility] Comment on above: mL/min/1.73m2 CKD-EP I Creatinine Equation (2020) H AND P Exam - [facility] 07-21-2025 H&P Exam - Hospitalist [facility] Medical Records Department [address] [place] [address] H P Exam - Hospitalist 07/21/25 1159 MR#: [id number] Acct: [id number] Name: FEDERICO HU Rep #: [id number] : 1935 89 From: Nathaniel Beverly MD PCP: Dr. Nithin Acevedo MD Status:ADM [facility] General Date of Admission: 07/21/25 Date of Service: 07/21/25 Chief Complaint: Shortness of breath HPI Narrative FEDERICO HU, is a 89 M with past medical history second for paroxysmal atrial fibrillation, diabetes mellitus type 2, chronic kidney disease who presented to the emergency department with shortness of breath. Per patient symptoms have been ongoing for the past couple of weeks. He also did notice increasing weight gain as well as swelling involving both lower extremities. Patient also did admit to easy fatigability and inability to lay flat he therefore had to lay in his recliner. Elected to present to the emergency department due to worsening symptoms. Workup was consistent with acute congestive heart failure admitted to a monitored bed for further management [facility] Medical History Afib CAD (coronary artery disease) CHF (congestive heart failure) Diabetes Home Medications ???Medication ???Instructions ???Recorded ???Last Taken ???Type Lovastatin [Mevacor] 40 mg PO QHS CHOLESTEROL 07/02/16 07/11/16 History doxazosin 2 mg tablet 2 mg PO QHS PROSTATE 07/02/16/04/01 History multivitamin with folic acid 400 1 tab PO DAILY SUPPLEMENT 07/02/16 07/11/16 History mcg tablet (Thera) nitroglycerin 0.4 mg sublingual 0.4 mg sublingual PRN PRN CHEST Unknown History tablet (Nitrostat) PAIN spironolactone 25 mg tablet 25 mg PO QHS BP 04/01/18 Unknown H istory albuterol sulfate 90 mcg/actuation 2 puff inhalation Q4H PRN PRN Unknown Rx aerosol inhaler Wheezing ##1 vitamin E (dl, acetate) 90 mg (200 200 unit PO DAILY 01/07/19 Unkno wn History unit) capsule apixaban 2.5 mg tablet (Eliquis) 2.5 mg PO BID 03/27/24 Unknown His tory dapagliflozin propanediol 5 mg 5 mg PO QHS 03/27/24 Unknown Histo ry tablet (Farxiga) ferrous sulfate 137 mg (45 mg 137 mg PO DAILY 03/27/24 Unknown H istory iron) tablet,extended release insulin degludec 100 unit/mL 40 unit subcut DAILY 03/27/24 Unkn own History subcutaneous solution (Tresiba U-100 Insulin) atorvastatin 40 mg tablet 40 mg PO DAILY 07/21/25 Unknown Hi story empagliflozin 10 mg tablet 10 mg PO DAILY 07/21/25 Unknown Hi story (Jardiance) furosemide 40 mg tablet 40 mg PO BID 07/21/25 Unknown Hist ory sacubitril 97 mg-valsartan 103 mg 1 tab PO BID 07/21/25 Unknown His tory tablet (Entresto) Allergy/AdvReac Type Severity Reaction Status Date / Time finasteride (From [employer]) Allergy Hives Verified 07/21/25 10:26 Social History (Updated 07/21/25 @ 10:37 by Irma Hensley) household members: family Smoking Status: Former smoker ROS ROS Narrative GENERAL: denies fever, chills, night sweats, weight loss, anorexia HEENT: denies headache, sinus congestion, or drainage, dysphagia RESPIRATORY: cough, shortness of breath, dyspnea on exertion CARDIAC: orthopnea, PND GASTROINTESTINAL: denies abdominal pain, nausea, GENITOURINARY: denies dysuria, urgency, frequency, EXTREMITY: denies swelling MUSCULOSKELETAL: denies current joint pain or tenderness NEUROLOGIC: denies focal numbness, weakness, tingling HEMATOLOGIC: denies easy bruising and/or hemorrhage INTEGUMENT: denies rashes PSYCHIATRIC: denies suicidal or homicidal ideation Vital Signs Vital Signs Vital Signs: 07/21/25 10:26 07/21/25 10:42 07/21/25 10:44 Temperature 97.8 F Temperature Source Oral Pulse Rate 76 Respiratory Rate 20 H Respiratory Effort Short of Breath Respiratory Depth Normal Respiratory Pattern Normal Blood Pressure 123/41 H Blood Pressure Mean 68 Pulse Ox 96 95 Oxygen Delivery Method Room Air Room Air Room Air 07/21/25 11:30 07/21/25 11:45 07/21/25 11:57 Temperature 97.9 F Temperature Source Pulse Rate 64 58 L 58 L Respiratory Rate 18 17 17 Respiratory Effort Respiratory Depth Respiratory Pattern Blood Pressure 103/69 99/51 L 99/51 L Blood Pressure Mean 80 62 67 Pulse Ox 92 95 95 Oxygen Delivery Method Weight Weight: 167 kg Body Mass Index (BMI) 51.3 Physical Exam Narrative GENERAL: cooperative HEENT: Atraumatic; normocephalic EYES; Anicteric, Normal Conjunctiva NECK; supple, normal thyroid, RESPIRATORY: Diminished to auscultation CARDIOVASCULAR: Irregular S1-S2 GI: soft, normoactive bowel sounds, : No Renal angle tenderness; EXTREMITIES: 2+ pitting edema (more content not included)... Normal [facility] Hematocrit Auto (Bld) [Volum e fraction]Ordered By: Fely Parra on 07-21-2025 Hematocrit (Bld) [Volume fraction] 29.3 % Low 40-54 [facility] Hemoglobin measurementOrdere d By: Fely Parra on 07-21-2025 Hemoglobin (Bld) [Mass/Vol] 8.7 g/dL Low 13.0-16.5 [facility] Immature granulocytes/100 WB C Auto (Bld)Ordered By: Fely Parra on 07-21-2025 Immature granulocytes/100 WBC (Bld) 0.600 % 0.0-0.9 [facility] Comment on above: IG% - Immature Granu locytes (promyelocytes, myelocytes and metamyelocytes) > 1% indicates that a LEFT SHIFT is Present. International normalized rat io (INR) calculationOrdered By: Fely Parra on 07-21-2025 INR Coag (Bld) [Relative time] 1.3 {INR} [facility] Iron measurement (mass/mass) Ordered By: Nathaniel Beverly on 07-21-2025 Iron (Unsp spec) [Mass/Mass] 24 ug/dL Low 65-175 [facility] Iron+Iron Binding Capacityon 07-21-2025 Iron [Mass/Vol] 24 ug/dL Low 65-175 [facility] Comment on above: Performed By: #### L 300.3900, L500.2500, L100.0100 #### [facility] [address] [place], [address] IRON SATURATION 9.0 Normal 9-55 [facility] Comment on above: Performed By: #### L 300.3900, L500.2500, L100.0100 #### [facility] [address] [place], [address] TIBC 281 ug/dL Normal 250-450 [facility] Comment on above: Performed By: #### L 300.3900, L500.2500, L100.0100 #### [facility] [address] [place], [address] UIBC 257 ug/dL Normal 228-428 [facility] Comment on above: Performed By: #### L 300.3900, L500.2500, L100.0100 #### [facility] [address] [place], [address] Kidney [facility] Bladderon 025 Kidney and Bladder [facility] Imaging Services [address] [address] Kidney and Bladder MR#: [id number] Acct: [id number] Name: FEDERICO HU Rep #: [id number] : 1935 M 89 From: Yomi Dawn MD PCP: Dr. Nithin Acevedo MD Status: ADM IN Study: Kidney and Bladder Date of Exam: 07/21/25 Exam# [id number] Ordering Dr: Nathaniel Beverly MD PROCEDURE: KIDNEY AND BLADDER 07/21/2025 REASON FOR EXAM: RENAL FAILURE TECHNIQUE: Procedure Code: USKI Modality: US Procedure: KIDNEY AND BLADDER FINDINGS: Right kidney measures 10.9 ??? 6.0 ??? 6.0 cm. Cortical thickness 1.2 cm. Normal cortical echogenicity. No calculi. No hydronephrosis. Left kidney measures 8.7 ??? 4.7 ??? 5.0 cm. Cortical thickness 1.3 cm. Normal cortical echogenicity. No calculi. No hydronephrosis. A 5.1 ??? 5.7 ??? 4.8 cm thinly septated cyst is present in the [id number] pole. Urinary bladder pre-void volume 716 mL. Wall thickness 3 mm. Ureteral jets visualized bilaterally. US/Kidney and Bladder IMPRESSION: Right kidney 10.9 cm, left kidney 8.7 cm. No hydronephrosis. 5.1 ??? 5.7 ??? 4.8 cm thinly septated cyst in the [id number] left kidney. Normal bladder with bilateral ureteral jets. Reading Location: [address] CC: Dr. Nathaniel Beverly MD; Dr. Nithin Acevedo MD Rn Telemetry: Signed Normal [facility] L501.4021on 07-21-2025 Trop T High Sen 91 ng/L Invalid Interpretation Code <=22 [facility] Comment on above: Result Comment: Crit ical Result(s) Called at 1122: by: ZONIA MUÑOZ TO [facility].??Results read back by same. Performed By: #### L 300.3900, L500.2500, L100.0100 #### [facility] [address] [place], [address] MCV (mean corpuscular volume ) determinationOrdered By: Fely Parra on 07-21-2025 MCV (RBC) [Entitic vol] 88.3 fL 80-94 [facility] Mean corpuscular hemoglobin (MCH) determinationOrdered By: Fely Parra on 07-21-2025 MCH (RBC) [Entitic mass] 26.2 pg Low 27.0-32.0 [facility] Mean corpuscular hemoglobin concentration (MCHC) determinationOrdered By: Fely Parra on 07-21-2025 MCHC (RBC) [Mass/Vol] 29.7 g/dL Low 32-36 [facility] Mean platelet volume determi nationOrdered By: Fely Parra on 07-21-2025 Platelet mean volume (Bld) [Entitic vol] 12.2 fL High 6.2-12.0 [facility] Monocyte percentageOrdered B y: Fely Parra on 07-21-2025 Monocytes/100 WBC (Bld) 9.0 % 0-10 [facility] Natriuretic peptide.B prohor carina N-Terminal [Mass/volume] in Serum or PlasmaOrdered By: Fely Parra on 07-21-2025 Natriuretic peptide.B prohormone N-Terminal [Mass/Vol] 3236 pg/mL High <1800 [facility] Comment on above: Heart Failure Unlike ly: < 300 pg/mLHeart Failure Likely< 50 Years: > 450 pg/mL50-75 Years: > 900 pg/mL>75 Years: > 1800 pg/mL Neutrophil percentageOrdered By: Fely Parra on 07-21-2025 Neutrophils/100 WBC (Bld) 74.0 % High 47-70 [facility] No Panel InformationOrdered By: Nathaniel Beverly on 07-21-2025 Unsaturated Iron Binding Capacity 257 ug/dL 228-428 [facility] Nucleated red blood cell per centageOrdered By: Fely Parra on 07-21-2025 Nucleated RBC/100 WBC (Bld) [Ratio] 0 % 0-5 [facility] Platelet countOrdered By: Carolina Parra on 07-21-2025 Platelets (Bld) [#/Vol] 120 10*3/uL Low 150-450 [facility] Potassium measurement (mass/ volume)Ordered By: Fely Parra on 07-21-2025 Potassium (Unsp spec) [Mass/Vol] 4.6 mmol/L 3.3-5.1 [facility] Pro- Brain NATRIURETIC PEPTI Sugey 07-21-2025 Natriuretic peptide B (Bld) [Mass/Vol] 3236 pg/mL High <=1800 [facility] Comment on above: Result Comment: Hear t Failure Unlikely: < 300 pg/mL Heart Failure Likely < 50 Years: > 450 pg/mL 50-75 Years: > 900 pg/mL >75 Years: > 1800 pg/mL Performed By: #### L 300.3900, L500.2500, L100.0100 #### [facility] [address] [place], [address] Prothrombin Time w/INRon INR Coag (PPP) [Relative time] 1.3 {INR} Normal [facility] Comment on above: Performed By: #### L 300.3900, L500.2500, L100.0100 #### [facility] [address] [place], [address] PT Coag (PPP) [Time] 16.8 s High 11.7-14.9 [facility] Comment on above: Performed By: #### L 300.3900, L500.2500, L100.0100 #### [facility] [address] [place], [address] Prothrombin timeOrdered By: Fely Parra on 07-21-2025 PT Coag (PPP) [Time] 16.8 s High 11.7-14.9 [facility] RBC Auto (Bld) [#/Vol]Ordere d By: Fely Parra on 07-21-2025 RBC (Bld) [#/Vol] 3.32 10*6/uL Low 4.6-6.2 [facility] Retic Panelon 07-21-2025 IM RET FRACTION 12.80 Normal 3.00-15.90 [facility] Comment on above: Performed By: #### L 300.3900, L500.2500, L100.0100 #### [facility] [address] [place], [address] RET-HE 25.9 pg Low 30-35 [facility] Comment on above: Performed By: #### L 300.3900, L500.2500, L100.0100 #### [facility] [address] [place], [address] Retic Count 1.08 Normal 0.5-1.5 [facility] Comment on above: Performed By: #### L 300.3900, L500.2500, L100.0100 #### [facility] [address] [place], [place], [id number] Reticulocyte hemoglobin equi valent (RET-He) measurementOrdered By: Nathaniel Beverly on 07-21-2025 Hemoglobin (Reticulocytes) [Entitic mass] 25.9 pg Low 30-35 [facility] Reticulocytes Auto (Bld) [#/ Vol]Ordered By: Nathaniel Beverly on 07-21-2025 Reticulocytes/100 RBC (Bld) 1.08 % 0.5-1.5 [facility] Serum creatinine measurement (mass/volume)Ordered By: Fely Parra on 07-21-2025 Creatinine [Mass/Vol] 3.12 mg/dL High 0.70-1.20 [facility] Serum glucose measurement (m ass/volume)Ordered By: Fely Parra on 07-21-2025 Glucose [Mass/Vol] 166 mg/dL High 70-99 [facility] Serum or plasma calcium karthik urement (mass/volume)Ordered By: Fely Parra on 07-21-2025 Calcium [Mass/Vol] 10.7 mg/dL 7.6-11.0 [facility] Serum or plasma iron saturat ion measurement (mass fraction)Ordered By: Nathaniel Beverly on 07-21-2025 Iron saturation [Mass fraction] 9.0 % 9-55 [facility] Serum or plasma urea nitroge n measurement (mass/volume)Ordered By: Fely Parra on 07-21-2025 Urea nitrogen [Mass/Vol] 63 mg/dL High 4-19 [facility] Sodium levelOrdered By: Rosa Parra on 07-21-2025 Sodium [Moles/Vol] 142 mmol/L 133-145 [facility] Troponin T HS 2 HRon 025 Trop T High Sen 87 ng/L Invalid Interpretation Code <=22 [facility] Comment on above: Result Comment: Crit ical Result(s) Called at 1407: by: ZONIA MUÑOZ TO [facility]. ??Results read back by same. Performed By: #### L 499.0042 #### [facility] [address] [place], [address] Troponin T HS 4 HRon 025 Trop T High Sen 87 ng/L Invalid Interpretation Code <=22 [facility] Comment on above: Result Comment: Crit ical Result(s) Called at: by: Anthony Cash??Results read back by same. Performed By: #### L 499.0043 #### [facility] [address] [place], [place], [id number] Troponin T.cardiac [Mass/vol ume] in Serum or Plasma by High sensitivity methodOrdered By: Fely Parra on 07-21-2025 Troponin T.cardiac High sensitivity method [Mass/Vol] 87 ng/L Critically high <22 [facility] Comment on above: Critical Result(s) C alled at: by: Anthony Cash Results read back by same. Troponin T.cardiac High sensitivity method [Mass/Vol] 87 ng/L Critically high <22 [facility] Comment on above: Critical Result(s) C alled at 1407: by: ZONIA MUÑOZ TO [facility]. Results read back by same. Troponin T.cardiac High sensitivity method [Mass/Vol] 91 ng/L Critically high <22 [facility] Comment on above: Critical Result(s) C alled at 1122: by: [place] Results read back by same. Vitamin B12on 07-21-2025 Cobalamin (Vitamin B12) [Mass/Vol] 471 pg/mL Normal 180-914 [facility] Comment on above: Performed By: #### L 300.3900, L500.2500, L100.0100 #### [facility] [address] [place], [place], [id number] Vitamin B12 ser/plasOrdered By: Nathaniel Beverly on 07-21-2025 Cobalamin (Vitamin B12) [Mass/Vol] 471 pg/mL 180-914 [facility] White blood cell (WBC) count Ordered By: Fely Parra on 07-21-2025 WBC (Bld) [#/Vol] 5.2 10*3/uL 4.4-11.0 [facility] BMP with eGFRon 05-10-2025 AGE 89 years Normal [facility] Comment on above: Performed By: #### 2 47337 #### [facility],[address] [place] [address] Anion gap [Moles/Vol] 9 mmol/L Low 10 - 20 [facility] Comment on above: Performed By: #### 2 99489 #### [facility],[address] [place] [address]648 BMP with eGFR Normal [facility] Comment on above: Result Comment: BASI C METABOLIC PANEL Performed By: #### 2 65220 #### [facility],[address] [place] [address] Calcium [Mass/Vol] 9.9 mg/dL Normal 8.5 - 10.[address] [facility] Comment on above: Performed By: #### 2 32113 #### [facility],[address] [place] [address] Chloride [Moles/Vol] 108 mmol/L High 98 - [address] [facility] Comment on above: Performed By: #### 2 33066 #### [facility],[address] [place] [address]129 CO2 [Moles/Vol] 29.5 mmol/L Normal 21.0 - 32.[address] [facility] Comment on above: Performed By: #### 2 80419 #### [facility],[address] [place] [address] Creatinine [Mass/Vol] 3.39 mg/dL High 0.70 - 1.30 [facility] Comment on above: Performed By: #### 2 15450 #### [facility],[address] [place] [address] 18970 eGFR 17 ML/MINUTE Low 60 - [address] [facility] Comment on above: Performed By: #### 2 30468 #### [facility],[address] [place] [address]773 eGFR(AA) 21 ML/MINUTE Low 60 - [address] [facility] Comment on above: Result Comment: ACCO RDING TO THE NATIONAL KIDNEY DISEASE EDUCATION PROGRAM(NKDE), A NORMAL eGFR IS A VALUE GREATER THAN OR EQUAL TO 60 ML/MIN/1.73 SQ METERS. CHRONIC KIDNEY DISEASE: <60mL/MIN/1.73 SQ METERS KIDNEY FAILURE: <15mL/MIN/1.73 SQ METERS THIS TEST SHOULD ONLY BE USED FOR PATIENTS 18 YEARS OF AGE AND OLDER. Performed By: #### 2 28104 #### [facility],[address] [place] [address]27 Glucose [Mass/Vol] 81 mg/dL Normal 74 - [address] [facility] Comment on above: Performed By: #### 2 28895 #### [facility],[address] [place] [address]71 Potassium [Moles/Vol] 4.7 mmol/L Normal 3.5 - 5.1 [facility] Comment on above: Performed By: #### 2 58433 #### [facility],[address] [place] [address] 7[address]73 Sodium [Moles/Vol] 142 mmol/L Normal 136 - [address] [facility] Comment on above: Performed By: #### 2 09273 #### [facility],[address] [place] [address] 85818 Urea nitrogen [Mass/Vol] 70 mg/dL High 7 - [address] [facility] Comment on above: Performed By: #### 2 02242 #### [facility],[address] [place] [address]228 CBC + DIFFon 05-10-2025 Baso # 0.04 x10EE3/UL Normal 0.00 - 0.[address] [facility] Comment on above: Performed By: #### 2 87611 #### [facility],[address] [place] [address] 49658 Basophils/100 WBC (Bld) 0.7 % Normal 0.0 - 2.[address] [facility] Comment on above: Performed By: #### 2 04337 #### [facility],[address] [place] [address] 41477 CBC + DIFF Normal [facility] Comment on above: Result Comment: CBC- COMPLETE BLOOD COUNT Performed By: #### 2 80930 #### [facility],[address] [place] [address] 54468 EO # 0.23 x10EE3/UL Normal 0.00 - 0.[address] [facility] Comment on above: Performed By: #### 2 77730 #### [facility],[address] [place] [address] 38107 Eosinophils/100 WBC (Bld) 4.8 % Normal 0.0 - 7.[address] [facility] Comment on above: Performed By: #### 2 92072 #### [facility],[address] [place] [address] Erythrocyte distribution width (RBC) [Ratio] 14.8 % Normal 12.0 - 15.[address] [facility] Comment on above: Performed By: #### 2 15197 #### [facility],[address] [place], [place] [id number] Hematocrit (Bld) [Volume fraction] 30.3 % Low 40.0 - 52.[address] [facility] Comment on above: Performed By: #### 2 56081 #### [facility],[address] [place], [place] [address] Hemoglobin (Bld) [Mass/Vol] 9.8 g/dL Low 13.0 - 17.[address] [facility] Comment on above: Performed By: #### 2 68758 #### [facility],[address] [place] [address] 91120 Lymph # 0.83 x10EE3/UL Normal 0.80 - 2.[address] [facility] Comment on above: Performed By: #### 2 38476 #### [facility],[address] [place] [address] 24321 Lymphocytes/100 WBC (Bld) 16.9 % Low 20.0 - 45.[address] [facility] Comment on above: Performed By: #### 2 12086 #### [facility],[address] [place] [address] MANUAL DIFF N/A Normal [facility] Comment on above: Performed By: #### 2 88460 #### [facility],[address] [place] [address] MCH (RBC) [Entitic mass] 27 pg Normal 27 - [address] [facility] Comment on above: Performed By: #### 2 58481 #### [facility],[address] [place] [address] MCHC 32 X10 3 Normal 32 - [address] [facility] Comment on above: Performed By: #### 2 46862 #### [facility],[address] [place] [address] MCV (RBC) [Entitic vol] 84 fL Normal 81 - [address] [facility] Comment on above: Performed By: #### 2 86586 #### [facility],[address] [place] [address] [place] # 0.42 x10EE3/UL Normal 0.20 - 1.[address] [facility] Comment on above: Performed By: #### 2 75809 #### [facility],[address] [place] [address] MONOS % 8.5 % Normal 0.0 - 10.[address] [facility] Comment on above: Performed By: #### 2 59534 #### [facility],[address] [place], [place] [id number] Morphology Mumtaz (Bld) [Interp] N/A Normal [facility] Comment on above: Performed By: #### 2 13141 #### [facility],[address] [place] [address] Neut # 3.39 x10EE3/UL Normal 1.50 - 7.[address] [facility] Comment on above: Performed By: #### 2 44112 #### [facility],[address] [place] [address] 63084 Neutrophils/100 WBC (Bld) 69.1 % Normal 46.0 - 76.[address] [facility] Comment on above: Performed By: #### 2 45107 #### [facility],[address] [place], [place] [id number] PLATELET 106 x10EE3/UL Low 150 - [address] [facility] Comment on above: Performed By: #### 2 19713 #### [facility],[address] [place] [address] Platelet mean volume (Bld) [Entitic vol] 10.8 fL High 6.4 - 10.[address] [facility] Comment on above: Result Comment: AUTO MATED DIFFERENTIAL Performed By: #### 2 85129 #### [facility],[address] [place] [address] RBC 3.60 x 10EE6/UL Low 4.50 - 6.[address] [facility] Comment on above: Performed By: #### 2 64389 #### [facility],[address] [place], [place] [id number] WBC 4.9 x 10EE3/UL Normal 4.5 - 10.[address] [facility] Comment on above: Performed By: #### 2 07352 #### [facility],[address] [place], [place] [id number] NT-proBNPon 05-10-2025 Natriuretic peptide B (Bld) [Mass/Vol] 2385 pg/mL High 0 - [address] [facility] Comment on above: Performed By: #### 2 59468 #### [place] [id number] CNPNon 04-08-2025 [facility]N [facility]phone [facility] FEDERICO HU ([id number]) 1935 M Date Time Provider Department 04/08/25 GISELL CASSIDY PULMWS During your visit today, we recorded the following information about you: Gisell Cassidy APRN.HERBICIDE SPRAYER 04/08/2025 12:50 PM Signed Reviewed results of sputum culture along with recent CT findings. Recommend starting antibiotic and will send to preferred pharmacy. Plan to repeat chest CT as scheduled in June. Patient agreeable and questions answered. Gisell Cassidy APRN.HERBICIDE SPRAYER Allergies As of Date: 04/08/2025 Noted Allergy Reaction FEXOFENADINE 11/05/2024 16 - Unknown PROSCAR (FINASTERIDE) 07/02/2010 2 - Rash Date Reviewed: 04/01/2025 Reviewed by: Gisell Cassidy APRN.HERBICIDE SPRAYER - Fully Assessed Reason for Visit: Results [95] Order(s):cefdinir (OMNICEF) 300 mg capsuleTake 1 capsule by mouth two times a day for 10 days.Disp: 20 capsuleRfl: 0 Prescriptions as of 04/08/2025 - cefdinir (OMNICEF) 300 mg capsule Take 1 capsule by mouth two times a day for 10 days. - doxazosin (CARDURA) 2 mg tablet Take 1 tablet by mouth daily at bedtime. - Blood-Glucose Meter,Continuous (DEXCOM G7 REGIONAL AGRONOMIST) [facility] Dx: E11.49. ?Insulin: Yes. Use to check blood sugars at least 4 times a day - Blood-Glucose Sensor (DEXCOM G7 SENSOR) [facility] Dx: E11.49. ?Insulin: Yes. Apply new sensor every ten (10) days - CPAP/BIPAP/OTHER Type .CPAPSettings into a note to see current settings/supplies/DME information. - clotrimazole (LOTRIMIN) 1 % cream Apply 1 application to affected area two times a day. - semaglutide (OZEMPIC) 1 mg/dose (4 mg/3 mL) pen Inject 1 mg subcutaneously one time a week. Per medication program. - furosemide (LASIX) 40 mg tablet Take one(1) tablet daily in the morning. Take one(1) tablet in the evening, every other day. Per Cardiology. - triamcinolone acetonide (KENALOG) 0.1 % cream Apply 1 application to affected area two times a day. Apply sparingly to top of ears - apixaban (ELIQUIS) 2.5 mg tab(s) Take 1 tablet by mouth twice daily. Per Cardiology. - sacubitril-valsartan (ENTRESTO) 97-103 mg tablet Take 1 tablet by mouth two times a day. Per Cardiology. - insulin degludec (TRESIBA FLEXTOUCH U-200) 200 unit/mL (3 mL) injection Inject 64 Units subcutaneously every morning. Pt Assistance Medication. - insulin aspart U-100 (NOVOLOG FLEXPEN U-100 INSULIN) 100 unit/mL (3 mL) Inject 8 Units subcutaneously daily with dinner. Patient assistance. (will switch from Humalog sample to Novolog when supply arrives) - atorvastatin (LIPITOR) 40 mg tablet Take 40 mg by mouth once daily. - insulin needles, DISPOSABLE, 31 gauge x 16 ndle Test blood sugar twice a day DX:E11.49 - nitroglycerin sublingual (NITROQUICK) 0.4 mg SL tablet Dissolve 1 tablet under the tongue as needed for Chest Pain. If no pain relief call 911. - MULTIVITAMIN TAB Take one(1) tablet daily. 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* Essential hypertension [I10] Anal fissure [K60.2] 06/19/2006 10/09/2010 Shortness of breath [R06.02] 10/23/2006 10/09/2010 Unspecified pleural effusion [J90] 12/25/2006 10/09/2010 Coronary atherosclerosis [I25.10] 01/03/2009 Hyperlipemia [E78.5] 01/03/2009 Occlusion and stenosis of carotid artery withou*01/31/2009 01/26/2019 Unspecified Sleep Disturbance [G47.9] 01/31/2009 09/12/2015 Elevated prostate specific antigen (PSA) [R97.2*02/01/2009 01/19/2018 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] 11/30/2009 10/09/2010 BPH with obstruction/lower urinary tract sympto*08/08/2010 Skin mass [R22.9] 10/26/2010 05/13/2013 Anemia [D64.9] 05/12/2013 OA (osteoarthritis) of knee [M17.9] 09/23/2014 Atrial fibrillation (HCC) [I48.91] 05/13/2016 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] 07/30/2016 RBBB (right bundle branch block) [I45.10] 07/30/2016 Encounter for monitoring anti-arrhythmic therap*07/30/2016 COPD with exacerbation (HCC) [J44.1] 08/07/2016 06/01/2020 CKD (chronic kidney disease) stage 3, GFR 30-59*09/20/2017 12/15/2018 CKD (chronic kidney disease) stage 4, GFR 15-29*07/22/2018 Chronic diastolic CHF (congestive heart failure*07/22/2018 Chronic cough [R05.3] 06/01/2020 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] 11/02/2020 Hypercalcemia [E83.52] 11/23/2021 Wound of left leg [S81.802A] 06/12/2022 05/09/2023 Recurrent epistaxis [R04.0] 06/12/2022 05/09/2023 Candidal intertrigo [B37.2] 11/05/2024 HELDER on CPAP [G47.33] 09/19/2016 VHD (valvular heart disease) [I38] 02/15/[address] [R93.89] 02/15/2025 MGUS (monoclonal gammopathy of unknown signific*02/15/2025 Prescriptions ordered this encounter Disp Refills Start End CEFDINIR 300 MG CAPSULE 20 c* 0 04/08/2025 04/18/2025 Route: ORAL Sig: Take 1 capsule by mouth two times a day for 10 days. Enco (more content not included)... Normal [facility] Bacteria Spec Resp Culton Bacteria identified Respiratory culture Nom (Unsp spec) ORGANISM ID: 1 Few Proteus mirabilis Insignificant colony count. No further workup. ORGANISM ID: 2 Moderate normal respiratory jessica GRAM STAIN: Few Mixed oral jessica Rare Polymorphonuclear leukocytes Abnormal [facility] Comment on above: Performed By: #### 3 2355-0 ####[facility] [place] [id number] [address] [place] CNOVon 04-01-2025 CNOV Office Visit (PULMWS ) FEDERICO HU ([id number]) 1935 M Date Time Provider Department 04/01/25 11:00 AM GISELL CASSIDY PULMWS During your visit today, we recorded the following information about you: Pulse Blood pressure Weight 57/minute 106/64 156.9 kg Gisell Cassidy, [employer]ARK WORKER SUPERVISOR.HERBICIDE SPRAYER 04/01/2025 6:54 PM Signed Pulmonary Medicine Patients name: Federico Silverio PCP: Nithin Acevedo MD CC: follow-up HPI: Federico Hu is a 89 year old male former 60 pack year smoker, quitting in 1974 with PMH significant for morbid obesity (BMI 46), AF, DM, HTN, CAD s/p CABG, diastolic heart failure, HELDER on CPAP, CKD stage 4. Recent history notable for new onset hypercalcemia and monoclonal protein/MGUS. He had a chest CT to rule out lung cancer in light of hypercalcemia which was pertinent for bilateral ground glass and consolidative infiltrates left greater than right. TARAN 01/2025, referred back to pulmonary for chest CT findings. Considered high risk for bronchoscopy with biopsy and recommended follow-up imaging. Treated with course of Cefdinir. Not currently on inhaled therapy. He presents today for CT follow-up. He was pending parathyroidectomy which was cancelled after his last visit d/t recommendations. He is not sure he wishes to go through with it at all. Reports that after his last visit, he completed Cefdinir but does not note any change in respiratory symptoms. Today, patient reports chronic cough with sputum production, typically white/yellow sputum. This has been going on for years and has not changed. No wheezing/chest tightness. No dyspnea at rest. Exertional dyspnea has not changed. No fevers, chills, or night sweats. No recent hospitalizations or ED visits or upper respiratory infections. He reports reflux symptoms are rare. Does not recall experienceing coughing/aspiration with eating. PAST MEDICAL HISTORY Diagnosis Date Anal fissure 06/19/2006 Atrial fibrillation (HCC) 05/13/2016 Benign localized hyperplasia of prostate with urinary obstruction and other lower urinary tract symptoms (LUTS)(600.21) 11/30/2009 CAROTID ART OCCL-NO INFARCT 01/31/2009 Carotid US 1-09: > 50% on the R, < 50% on the L Chronic diastolic CHF (congestive heart failure) ([facility]) 07/22/2018 CKD (chronic kidney disease) stage 4, GFR 15-29 ml/min ([facility]) 07/22/2018 CORONARY ATHEROSCLER UNSPEC VESSEL 01/03/2009 2 V CABG at age 71 ECG 12-26: RBBB per Manish ELEVATED PROSTATE SPECIFIC ANTIGEN 02/01/2009 PSA 4.2 in 3-: repeat with free PSA and MARIO in follow up Glycosuria 04/2003 HYPERLIPIDEMIA NEC/NOS 01/03/2009 LDL 47, HDL 40, TG 93 in - Hypertrophy of prostate with urinary obstruction and other lower urinary tract symptoms (LUTS) 08/08/2010 Morbid obesity ([facility]) 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 Rothman for injections. HELDER on CPAP 09/19/2016 BiPAP 12-6 cm Nasal Primary osteoarthritis of left hip 11/02/2020 RBBB (right bundle branch block) 07/30/2016 S/P CABG x 2 07/30/2016 Skin mass 10/26/2010 Lipoma, left forehead SLEEP DISTURBANCE NOS 01/31/2009 03-09-09: effic 89%, AHI 3, low sat 86% (< 89% only 1.2 minutes), PLMI 7.5/hr Type II or unspecified type diabetes mellitus without mention of complication, uncontrolled 04/2003 Unspecified essential hypertension 09/2003 Allergies: Fexofenadine Unknown Proscar [Finasterid* Rash Medication List Accurate as of March 31, 2025 9:13 PM. If you have any questions, ask your nurse or doctor. CONTINUE taking these medications atorvastatin 40 mg tablet Commonly known as: LIPITOR clotrimazole 1 % cream Commonly known as: LOTRIMIN Apply 1 application to affected area two times a day. CPAP/BIPAP/OTHER Type .CPAPSettings into a note to see current settings/supplies/DME information. DEXCOM G7 REGIONAL AGRONOMIST Misc Generic drug: Blood-Glucose Meter,Continuous Dx: E11.49. Insulin: Yes. Use to check blood sugars at least 4 times a day DEXCOM G7 SENSOR Laquita Generic drug: Blood-Glucose Sensor Dx: E11.49. Insulin: Yes. Apply new sensor every ten (10) days doxazosin 2 mg tablet Commonly known as: CARDURA Take 1 tablet by mouth daily at bedtime. ELIQUIS 2.5 mg tab(s) Generic drug: apixaban insulin aspart U-100 100 unit/mL (3 mL) Commonly known as: NovoLOG Flexpen U-100 Insulin Inject 8 Units subcutaneously daily with dinner. Patient assistance. (will switch from Humalog sample to Novolog when supply arrives) insulin degludec 200 unit/mL (3 mL) injection Commonly known as: TRESIBA FLEXTOUCH U-200 Inject 64 Units subcutaneously every morning. Pt Assistance Medication. insulin needles (DISPOSABLE) 31 gauge x 5/16 Test blood sugar twice a day DX:E11.49 LASIX 40 mg tablet Generic drug: furosemide multivitamin tablet nitroglycerin sublingual 0.4 mg SL tabl (more content not included)... Normal [facility] CT CHEST WO IVCONon 04-01-20 CT CHEST WO IVCON * * *Final Report* * * DATE OF EXAM: Apr 01 2025 11:01AM [facility] 0541 - CT CHEST WO IVCON / PROCEDURE REASON: Pneumonia of both lower lobes due to infectious organism * * * * Physician Interpretation * * * * EXAMINATION: CHEST CT WITHOUT CONTRAST CLINICAL HISTORY: Follow-up pneumonia Technique: Spiral CT acquisition of the chest from the thoracic inlet to the upper abdomen without contrast. MQ: [id number] CT Radiation dose: Integrated Dose-length product (DLP) for this visit = 751 mGy*cm CT Dose Reduction Employed: Automated exposure control(AEC) and iterative recon Comparison: 12/30/2024 RESULT: Limitations: None. Lines, tubes, and devices: None. Lung parenchyma and airways: Evaluation of lung parenchyma demonstrates significant improvement in the previously noted lower lobe groundglass/consolidative opacities. Residual consolidation the superior segment of the left lower lobe is present and also improved. No new infiltrate is seen. No suspicious pulmonary mass/nodule is identified. There is no bronchiectasis or pneumothorax. Pleural space: No pleural effusion. No pleural thickening. Lower neck, lymph nodes, and mediastinum: The imaged thyroid gland is normal. No lymphadenopathy in the supraclavicular, axillary, mediastinal, or hilar regions. Heart, pericardium, and thoracic vessels: The thoracic aorta and main pulmonary artery are normal in caliber. The cardiac chambers are normal in size. No coronary artery atherosclerotic calcifications are noted, although the study is not optimized for coronary assessment. No pericardial effusion or thickening. Bones and soft tissues: No destructive bone lesion. Chest wall is unremarkable. Upper abdomen: No abnormality in the imaged upper abdomen. Localizer images: No additional findings. IMPRESSION: Overall improved aeration of the lower lobes since previous exam. Residual groundglass attenuation/consolidation involving superior segment of the left lower lobe is noted. Rn Telemetry: QUYEN Transcribe Date/Time: Apr 08 2025 10:05A Dictated by : TAYLOR BARR MD This examination was interpreted and the report reviewed and electronically signed by: TAYLOR BARR MD on Apr 08 2025 10:11AM EST [id number] Normal [facility] CNOVon 03-07-2025 CNOV Office Visit (INTMWS ) FEDERICO HU ([id number]) 1935 M Date Time Provider Department 03/07/25 11:00 AM KATHERIN MCKINNON INTMWS During your visit today, we recorded the following information about you: Pulse Respiration Blood pressure Weight 66/minute 18/minute 100/52 157 kg Katherin Mckinnon, [employer]ARK WORKER SUPERVISOR.HERBICIDE SPRAYER 03/07/2025 12:42 PM Signed CC: Patient presents with: Follow Up HPI Federico Hu is a 89 year old male who presents today for above. Right jaw pain: Reports started 2 weeks ago, described as dull and intermittent ache. Pain does not radiate. He has taken Tylenol which has been effective in relieving the pain. Aggravated by pressure on the jaw and chewing something hard makes. Reports pain at 11/26 in office today. Denies previous pain to right lower jaw, headache, dizziness, fall, trauma. He wears upper and lower dentures no issues with dentures or teeth. No TMJ popping, clicking or locking up. Denies neck, chest or arm pain associated with the jaw pain. Patient firmly believes jaw pain is caused by switch from Farxiga to Jardiance by his commutator operator, which occurred only a few days before onset of pain. Hypertension: taking medications as prescribed, denies side effects. Does not check BP at home. Symptoms: Dizziness/Lightheaded - No Chest Pain - No Shortness of Breath - No Swelling Yes :History of bilateral lower kidney disease Fatigue No Afib- medications managed by commutator operator. Anticoagulation: yes, Eliquis; Rate control: Yes; rhythm control: Yes. He is compliant with medication(s) and is tolerating med(s) without any side effects. REVIEW OF SYSTEMS PAIN ASSESSMENT: 11/26 GENERAL: No weight loss, malaise or fevers HEENT: Negative for frequent or significant headaches, No changes in hearing or vision, no nose bleeds or other nasal problems RESPIRATORY: Negative for cough, hemoptysis, wheezing, COPD, dyspnea or shortness of breath CARDIOVASCULAR: Negative for chest pain, leg swelling, hypertension, CHF or palpitations GI: No nausea, vomiting, or diarrhea : No history of dysuria, frequency or incontinence MUSCULOSKELETAL: chronic lower back pain SKIN: dry skin PSYCH: Negative for sleep disturbance, mood disorder and recent psychosocial stressors HEMATOLOGY/LYMPHOLOGY: Negative for prolonged bleeding, bruising easily or swollen nodes ENDOCRINE: Negative for cold or heat intolerance, polyuria, polydipsia and goiter NEURO: No history of headaches, syncope, paralysis, seizures or tremors PAST MEDICAL HISTORY Diagnosis Date Anal fissure 06/19/2006 Atrial fibrillation (HCC) 05/13/2016 Benign localized hyperplasia of prostate with urinary obstruction and other lower urinary tract symptoms (LUTS)(600.21) 11/30/2009 CAROTID ART OCCL-NO INFARCT 01/31/2009 Carotid US -: > 50% on the R, < 50% on the L Chronic diastolic CHF (congestive heart failure) ([facility]) 07/22/2018 CKD (chronic kidney disease) stage 4, GFR 15-29 ml/min ([facility]) 07/22/2018 CORONARY ATHEROSCLER UNSPEC VESSEL 01/03/2009 2 V CABG at age 71 ECG 12-26: RBBB per Emma ELEVATED PROSTATE SPECIFIC ANTIGEN 02/01/2009 PSA 4.2 in 01-23: repeat with free PSA and MARIO in follow up 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 Rothman for injections. HELDER on CPAP 09/19/2016 BiPAP 12-6 cm Nasal Primary osteoarthritis of left hip 11/02/2020 RBBB (right bundle branch block) 07/30/2016 S/P CABG x 2 07/30/2016 Skin mass 10/26/2010 Lipoma, left forehead SLEEP DISTURBANCE NOS 01/31/2009 03-09-09: effic 89%, AHI 3, low sat 86% (< 89% only 1.2 minutes), PLMI 7.5/hr Type II or unspecified type diabetes mellitus without mention of complication, uncontrolled 04/2003 Unspecified essential hypertension 09/2003 PAST SURGICAL HISTORY Procedure Laterality Date ARTHRP KNE CONDYLEANDPLATU MEDIALANDLAT COMPARTMENTS Left 01/01/2008 Knee replacement, total, Left ARTHRP KNE CONDYLEANDPLATU MEDIALANDLAT COMPARTMENTS Right 04/14/2018 CARDIAC CATH 02/26/2018 COLONOSCOPY FLX DX W/COLLJ SPEC WHEN PFRMD 08/01/06 Posterior anal fissure CORONARY ARTERY BYP W/VEIN AND ARTERY GRAFT 2 VEIN 2006 CABG, two grafts PAST SURGICAL HISTORY OF 07/1979 anal fissure repair PROSTATE BIOPSY US Jul. RPR 1ST INGUN HRNA AGE 5 YRS/> REDUCIBLE 09/27/1992 Hernia repair, inguinal, left laparoscopic ALLERGIES Fexofenadine and Proscar [Finasteride] MEDICATIONS doxazosin (CARDURA) 2 mg tablet Take 1 tablet by mouth daily at bedtime. Blood-Glucose Meter,Continuous (DEXCOM G7 REGIONAL AGRONOMIST) [facility] Dx: E11.49. Insulin: Yes. Use to check blood sugars at least 4 times a day (more content not included)... [facility] FEDERICO HU ([id number]) 1935 M Date Time Provider Department 02/18/25 KRISTIN GUEVARA During your visit today, we recorded the following information about you: Christal Lau RN 02/18/2025 11:53 AM Signed Phoned and spoke with patient's . I called to let them know that Dr. Guevara is postponing his parathyroid surgery . I told his that we would revisit after he has sees pulmonary in March. His will relay the message to Mr. Hu. Christal Lau RN Allergies As of Date: 02/18/2025 Noted Allergy Reaction FEXOFENADINE 11/05/2024 16 - Unknown PROSCAR (FINASTERIDE) 07/02/2010 2 - Rash Date Reviewed: 02/15/2025 Reviewed by: Jodie Bowers APRN.HERBICIDE SPRAYER - Fully Assessed Prescriptions as of 02/18/2025 - doxazosin (CARDURA) 2 mg tablet Take 1 tablet by mouth daily at bedtime. - Blood-Glucose Meter,Continuous (DEXCOM G7 REGIONAL AGRONOMIST) [facility] Dx: E11.49. ?Insulin: Yes. Use to check blood sugars at least 4 times a day - Blood-Glucose Sensor (DEXCOM G7 SENSOR) laquita Dx: E11.49. ?Insulin: Yes. Apply new sensor every ten (10) days - CPAP/BIPAP/OTHER Type .CPAPSettings into a note to see current settings/supplies/DME information. - clotrimazole (LOTRIMIN) 1 % cream Apply 1 application to affected area two times a day. - semaglutide (OZEMPIC) 1 mg/dose (4 mg/3 mL) pen Inject 1 mg subcutaneously one time a week. Per medication program. - blood sugar diagnostic (TRUE METRIX GLUCOSE TEST STRIP) test strip Test twice daily. Dx: E11.49. Insulin: Yes. - furosemide (LASIX) 40 mg tablet Take one(1) tablet daily in the morning. Take one(1) tablet in the evening, every other day. Per Cardiology. - triamcinolone acetonide (KENALOG) 0.1 % cream Apply 1 application to affected area two times a day. Apply sparingly to top of ears - apixaban (ELIQUIS) 2.5 mg tab(s) Take 1 tablet by mouth twice daily. Per Cardiology. - sacubitril-valsartan (ENTRESTO) 97-103 mg tablet Take 1 tablet by mouth two times a day. Per Cardiology. - insulin degludec (TRESIBA FLEXTOUCH U-200) 200 unit/mL (3 mL) injection Inject 64 Units subcutaneously every morning. Pt Assistance Medication. - insulin aspart U-100 (NOVOLOG FLEXPEN U-100 INSULIN) 100 unit/mL (3 mL) Inject 8 Units subcutaneously daily with dinner. Patient assistance. (will switch from Humalog sample to Novolog when supply arrives) - atorvastatin (LIPITOR) 40 mg tablet Take 40 mg by mouth once daily. - insulin needles, DISPOSABLE, 31 gauge x 5/16 ndle Test blood sugar twice a day DX:E11.49 - nitroglycerin sublingual (NITROQUICK) 0.4 mg SL tablet Dissolve 1 tablet under the tongue as needed for Chest Pain. If no pain relief call 911. - MULTIVITAMIN TAB Take one(1) tablet daily. 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* Essential hypertension [I10] Anal fissure [K60.2] 06/19/2006 10/09/2010 Shortness of breath [R06.02] 10/23/2006 10/09/2010 Unspecified pleural effusion [J90] 12/25/2006 10/09/2010 Coronary atherosclerosis [I25.10] 01/03/2009 Hyperlipemia [E78.5] 01/03/2009 Occlusion and stenosis of carotid artery withou*01/31/2009 01/26/2019 Unspecified Sleep Disturbance [G47.9] 01/31/2009 09/12/2015 Elevated prostate specific antigen (PSA) [R97.2*02/01/2009 01/19/2018 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] 11/30/2009 10/09/2010 BPH with obstruction/lower urinary tract sympto*08/08/2010 Skin mass [R22.9] 10/26/2010 05/13/2013 Anemia [D64.9] 05/12/2013 OA (osteoarthritis) of knee [M17.9] 09/23/2014 Atrial fibrillation (HCC) [I48.91] 05/13/2016 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] 07/30/2016 RBBB (right bundle branch block) [I45.10] 07/30/2016 Encounter for monitoring anti-arrhythmic therap*07/30/2016 COPD with exacerbation (HCC) [J44.1] 08/07/2016 06/01/2020 CKD (chronic kidney disease) stage 3, GFR 30-59*09/20/2017 12/15/2018 CKD (chronic kidney disease) stage 4, GFR 15-29*07/22/2018 Chronic diastolic CHF (congestive heart failure*07/22/2018 Chronic cough [R05.3] 06/01/2020 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] 11/02/2020 Hypercalcemia [E83.52] 11/23/2021 Wound of left leg [S81.802A] 06/12/2022 05/09/2023 Recurrent epistaxis [R04.0] 06/12/2022 05/09/2023 Candidal intertrigo [B37.2] 11/05/2024 HELDER on CPAP [G47.33] 09/19/2016 VHD (valvular heart disease) [I38] 02/15/[address] [R93.89] 02/15/2025 MGUS (monoclonal gammopathy of unknown signific*02/15/2025 Encounter Status:Closed by IAFELICE, CHRISTAL on 02/18/25 [facility] 02-17-2025 [facility]IA Telephone (LISANDRAO) FEDERICO HU ([id number]) 1935 M Date Time Provider Department 02/17/25 JODIE BOWERS During your visit today, we recorded the following information about you: Jodie Bowers APRN.HERBICIDE SPRAYER 02/17/2025 9:23 AM Signed Pt is scheduled 03/11/[address] Guevara at . Per your last TE to pt below pt was to be tx with antibiotics and repeat chest CT in March with office follow up due to being considered too high risk for bronch with transbronchial biopsy with interventional pulmonary. What are your recommendations with pt proceeding with this surgery if he was deemed to high risk for a bronch bx? I've included his surgeon for discussion. TE Dr. Lee 01/24/2025 I spoke with Jean Claude regarding recent consultation to interventional pulmonary regarding bronchoscopy with transbronchial biopsy. Patient is high risk and recommendations were for a course of antibiotics with repeat CT and potential intervention if infiltrates were persistent. After speaking with Jean Claude, he is deciding against any invasive intervention at this time. He is agreeable to a course of antibiotics with repeat CT of his chest. I will make arrangements for the CT and send in a prescription to [facility] for his antibiotic. Jodie Bowers APRN.HERBICIDE SPRAYER 02/18/2025 11:58 AM Signed You Kristin Guevara MD; Christal Lau RNJust now (11:57 AM) Thank you Christal Lau, Kristin Patrick MDJust now (11:57 AM) LI I called and spoke with . Surgery is cancelled . Kristin Ocampo MD You; Christal Lau RN12 minutes ago (11:45 AM) Yes we will postpone parathyroid surgery for now. Thanks! You Viet Lee MD; Kristin Guevara MD1 hour ago (10:16 AM) Pt has scheduled f/u chest CT and pulmonary appt 04/01/2025 You Viet Lee MD; Kristin Guevara MD1 hour ago (10:12 AM) Dr. Guevara do you feel pt can wait for this upcoming surgery until respiratory status is optimized as best possible for pt? Viet Lee MD You18 hours ago (5:06 PM) He is obviously high risk for surgery as well. I guess it depends on how urgent the surgery is and if it can wait. Allergies As of Date: 02/17/2025 Noted Allergy Reaction FEXOFENADINE 11/05/2024 16 - Unknown PROSCAR (FINASTERIDE) 07/02/2010 2 - Rash Date Reviewed: 02/15/2025 Reviewed by: Jodie Bowers APRN.HERBICIDE SPRAYER - Fully Assessed Reason for Visit: Pulmonary Optimization [Other] Prescriptions as of 02/18/2025 - doxazosin (CARDURA) 2 mg tablet Take 1 tablet by mouth daily at bedtime. - Blood-Glucose Meter,Continuous (DEXCOM G7 REGIONAL AGRONOMIST) [facility] Dx: E11.49. ?Insulin: Yes. Use to check blood sugars at least 4 times a day - Blood-Glucose Sensor (DEXCOM G7 SENSOR) laquita Dx: E11.49. ?Insulin: Yes. Apply new sensor every ten (10) days - CPAP/BIPAP/OTHER Type .CPAPSettings into a note to see current settings/supplies/DME information. - clotrimazole (LOTRIMIN) 1 % cream Apply 1 application to affected area two times a day. - semaglutide (OZEMPIC) 1 mg/dose (4 mg/3 mL) pen Inject 1 mg subcutaneously one time a week. Per medication program. - blood sugar diagnostic (TRUE METRIX GLUCOSE TEST STRIP) test strip Test twice daily. Dx: E11.49. Insulin: Yes. - furosemide (LASIX) 40 mg tablet Take one(1) tablet daily in the morning. Take one(1) tablet in the evening, every other day. Per Cardiology. - triamcinolone acetonide (KENALOG) 0.1 % cream Apply 1 application to affected area two times a day. Apply sparingly to top of ears - apixaban (ELIQUIS) 2.5 mg tab(s) Take 1 tablet by mouth twice daily. Per Cardiology. - sacubitril-valsartan (ENTRESTO) 97-103 mg tablet Take 1 tablet by mouth two times a day. Per Cardiology. - insulin degludec (TRESIBA FLEXTOUCH U-200) 200 unit/mL (3 mL) injection Inject 64 Units subcutaneously every morning. Pt Assistance Medication. - insulin aspart U-100 (NOVOLOG FLEXPEN U-100 INSULIN) 100 unit/mL (3 mL) Inject 8 Units subcutaneously daily with dinner. Patient assistance. (will switch from Humalog sample to Novolog when supply arrives) - atorvastatin (LIPITOR) 40 mg tablet Take 40 mg by mouth once daily. - insulin needles, DISPOSABLE, 31 gauge x 04/01 ndle Test blood sugar twice a day DX:E11.49 - nitroglycerin sublingual (NITROQUICK) 0.4 mg SL tablet Dissolve 1 tablet under the tongue as needed for Chest Pain. If no pain relief call 911. - MULTIVITAMIN TAB Take one(1) tablet daily. 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 Normal [facility] CBC W Auto Differential pane l (Bld)on 02-15-2025 Basophils (Bld) [#/Vol] 0.04 10*3/uL [facility] Basophils/100 WBC (Bld) 0.8 % [facility] Differential cell count method Nom (Bld) Auto [facility] Eosinophils (Bld) [#/Vol] 0.21 10*3/uL [facility] Eosinophils/100 WBC (Bld) 4 % [facility] Erythrocyte distribution width (RBC) [Ratio] 13.6 % 11.5 - 15.0 % [facility] Hematocrit (Bld) [Volume fraction] 35.4 % Low 39.0 - 51.0 % [facility] Hemoglobin (Bld) [Mass/Vol] 10.9 g/dL Low 13.0 - 17.0 g/dL [facility] Immature granulocytes (Bld) [#/Vol] [facility] Immature granulocytes/100 WBC (Bld) 0.2 % [facility] Interpretation and review of laboratory results Abnormal [facility] Lymphocytes (Bld) [#/Vol] 0.87 10*3/uL Low [facility] Lymphocytes/100 WBC (Bld) 16.7 % [facility] MCH (RBC) [Entitic mass] 27.9 pg 26.0 - 34.0 pg [facility] MCHC (RBC) [Mass/Vol] 30.8 g/dL 30.5 - 36.0 g/dL [facility] MCV (RBC) [Entitic vol] 90.5 fL 80.0 - 100.0 fL [facility] Monocytes (Bld) [#/Vol] 0.57 10*3/uL [facility] Monocytes/100 WBC (Bld) 11 % [facility] Neutrophils (Bld) [#/Vol] 3.5 10*3/uL [facility] Neutrophils/100 WBC (Bld) 67.3 % [facility] Nucleated RBC (Bld) [#/Vol] [facility] Nucleated RBC/100 WBC (Bld) [Ratio] 0 % /100 WBC [facility] Platelet mean volume (Bld) [Entitic vol] 12.3 fL 9.0 - 12.7 fL [facility] Platelets (Bld) [#/Vol] 123 10*3/uL Low [facility] RBC (Bld) [#/Vol] 3.91 10*6/uL Low 4.20 - 6.0 0 m/uL [facility] WBC (Bld) [#/Vol] 5.2 10*3/uL [facility] Basophils (Bld) [#/Vol] 0.04 10*3/uL Normal <0.11 [facility] Comment on above: Order Comment: Speci men Type: BLOOD SPECIMEN Ordering Facility: [facility] Address: [address] [place] [address] Performed By: #### 2 731-8 #### [facility] CLIA [id number] [address] [place] [address] [place] Basophils/100 WBC (Bld) 0.8 % Normal [facility] Comment on above: Order Comment: Speci men Type: BLOOD SPECIMEN Ordering Facility: [facility] Address: [address] [place] [address] Performed By: #### 2 731-8 #### [facility] CLIA [id number] [address] [place] [address] [place] Differential cell count method Nom (Bld) Auto Normal [facility] Comment on above: Order Comment: Speci men Type: BLOOD SPECIMEN Ordering Facility: [facility] Address: [address] [place] [address] Performed By: #### 2 731-8 #### [facility] CLIA [id number] [address] [place] [address] [place] Eosinophils (Bld) [#/Vol] 0.21 10*3/uL Normal <0.46 [facility] Comment on above: Order Comment: Speci men Type: BLOOD SPECIMEN Ordering Facility: [facility] Address: [address] [place] [address] Performed By: #### 2 731-8 #### [facility] CLIA [id number] [address] [place] [address] [place] Eosinophils/100 WBC (Bld) 4.0 % Normal [facility] Comment on above: Order Comment: Speci men Type: BLOOD SPECIMEN Ordering Facility: [facility] Address: [address] [place] [address] Performed By: #### 2 731-8 #### [facility] CLIA [id number] [address] [place] [id number] [address] [place] Erythrocyte distribution width (RBC) [Ratio] 13.6 % Normal 11.5-15.0 [facility] Comment on above: Order Comment: Speci men Type: BLOOD SPECIMEN Ordering Facility: [facility] Address: [address] [place] [address] Performed By: #### 2 731-8 #### [facility] CLIA [id number] [address] [place] [address] [place] Hematocrit (Bld) [Volume fraction] 35.4 % Low 39.0-51.0 [facility] Comment on above: Order Comment: Speci men Type: BLOOD SPECIMEN Ordering Facility: [facility] Address: [address] [place] [address] Performed By: #### 2 731-8 #### [facility] CLIA [id number] [address] [place] [address] [place] Hemoglobin (Bld) [Mass/Vol] 10.9 g/dL Low 13.0-17.0 [facility] Center Comment on above: Order Comment: Speci men Type: BLOOD SPECIMEN Ordering Facility: [facility] Address: [address] [place] [address] Performed By: #### 2 731-8 #### [facility] CLIA [id number] [address] [place] [address] [place] Immature granulocytes (Bld) [#/Vol] 10*3/uL Normal <0.10 [facility] Comment on above: Order Comment: Speci men Type: BLOOD SPECIMEN Ordering Facility: [facility] Address: [address] [place] [address] Performed By: #### 2 731-8 #### [facility] CLIA [id number] [address] [place] [address] [place] Immature granulocytes/100 WBC (Bld) 0.2 % Normal [facility] Comment on above: Order Comment: Speci men Type: BLOOD SPECIMEN Ordering Facility: [facility] Address: [address] [place] [address] Performed By: #### 2 731-8 #### [facility] CLIA [id number] [address] [place] [address] [place] Lymphocytes (Bld) [#/Vol] 0.87 10*3/uL Low 1.00-4.00 [facility] Comment on above: Order Comment: Speci men Type: BLOOD SPECIMEN Ordering Facility: [facility] Address: [address] [place] [address] Performed By: #### 2 731-8 #### [facility] CLIA [id number] [address] [place] [address] [place] Lymphocytes/100 WBC (Bld) 16.7 % Normal [facility] Comment on above: Order Comment: Speci men Type: BLOOD SPECIMEN Ordering Facility: [facility] Address: [address] [place] [address] Performed By: #### 2 731-8 #### [facility] CLIA [id number] [address] [place] [address] [place] MCH (RBC) [Entitic mass] 27.9 pg Normal 26.0-34.0 [facility] Comment on above: Order Comment: Speci men Type: BLOOD SPECIMEN Ordering Facility: [facility] Address: [address] [place] [address] Performed By: #### 2 731-8 #### [facility] CLIA [id number] [address] [place] [address] [place] MCHC (RBC) [Mass/Vol] 30.8 g/dL Normal 30.5-36.0 [facility] Comment on above: Order Comment: Speci men Type: BLOOD SPECIMEN Ordering Facility: [facility] Address: [address] [place] [address] Performed By: #### 2 731-8 #### [facility] CLIA [id number] [address] [place] [address] [place] MCV (RBC) [Entitic vol] 90.5 fL Normal 80.0-100.0 [facility] Comment on above: Order Comment: Speci men Type: BLOOD SPECIMEN Ordering Facility: [facility] Address: [address] [place] [address] Performed By: #### 2 731-8 #### [facility] CLIA [id number] [address] [place] [address] [place] Monocytes (Bld) [#/Vol] 0.57 10*3/uL Normal <0.87 [facility] Comment on above: Order Comment: Speci men Type: BLOOD SPECIMEN Ordering Facility: [facility] Address: [address] [place] [address] Performed By: #### 2 731-8 #### [facility] CLIA [id number] [address] [place] [address] [place] Monocytes/100 WBC (Bld) 11.0 % Normal [facility] Comment on above: Order Comment: Speci men Type: BLOOD SPECIMEN Ordering Facility: [facility] Address: [address] [place] [address] Performed By: #### 2 731-8 #### [facility] CLIA [id number] [address] [place] [address] [place] Neutrophils (Bld) [#/Vol] 3.50 10*3/uL Normal 1.45-7.50 [facility] Comment on above: Order Comment: Speci men Type: BLOOD SPECIMEN Ordering Facility: [facility] Address: [address] [place] [address] Performed By: #### 2 731-8 #### [facility] CLIA [id number] [address] [place] [address] [place] Neutrophils/100 WBC (Bld) 67.3 % Normal [facility] Comment on above: Order Comment: Speci men Type: BLOOD SPECIMEN Ordering Facility: [facility] Address: [address] [place] [address] Performed By: #### 2 731-8 #### [facility] CLIA [id number] [address] [place] [address] [place] Nucleated RBC (Bld) [#/Vol] 10*3/uL Normal <0.01 [facility] Comment on above: Order Comment: Speci men Type: BLOOD SPECIMEN Ordering Facility: [facility] Address: [address] [place] [address] Performed By: #### 2 731-8 #### [facility] CLIA [id number] [address] [place] [address] [place] Nucleated RBC/100 WBC (Bld) [Ratio] 0.0 /100 WBC Normal [facility] Comment on above: Order Comment: Speci men Type: BLOOD SPECIMEN Ordering Facility: [facility] Address: [address] [place] [address] Performed By: #### 2 731-8 #### [facility] CLIA [id number] [address] [place] [address] [place] Platelet mean volume (Bld) [Entitic vol] 12.3 fL Normal 9.0-12.7 [facility] Comment on above: Order Comment: Speci men Type: BLOOD SPECIMEN Ordering Facility: [facility] Address: [address] [place] [address] Performed By: #### 2 731-8 #### [facility] CLIA [id number] [address] [place] [address] [place] Platelets (Bld) [#/Vol] 123 10*3/uL Low 150-400 [facility] Comment on above: Order Comment: Speci men Type: BLOOD SPECIMEN Ordering Facility: [facility] Address: [address] [place] [address] Performed By: #### 2 731-8 #### [facility] CLIA [id number] [address] [place] [address] [place] RBC (Bld) [#/Vol] 3.91 10*6/uL Low 4.20-6.00 [facility] Comment on above: Order Comment: Speci men Type: BLOOD SPECIMEN Ordering Facility: [facility] Address: [address] [place] [address] Performed By: #### 2 731-8 #### [facility] CLIA [id number] [address] [place] [address] [place] WBC (Bld) [#/Vol] 5.20 10*3/uL Normal 3.70-11.00 [facility] Comment on above: Order Comment: Speci men Type: BLOOD SPECIMEN Ordering Facility: [facility] Address: [address] [place] [address] Performed By: #### 2 731-8 #### [facility] CLIA [id number] [address] [place] [address] [place] CNPNon 02-15-2025 CNPN Telephone (PAHCB1) FEDERICO HU ([id number]) 1935 M Date Time Provider Department 02/15/25 CRISTY CAMARGO [place] [address] During your visit today, we recorded the following information about you: Lisa Trivedi LPN 02/15/2025 11:22 AM Signed Letter and medical records received from Dr Strickland via fax. Scanned in to Animated [employer]. Lennie Trivedi LPN Allergies As of Date: 02/15/2025 Noted Allergy Reaction FEXOFENADINE 11/05/2024 16 - Unknown PROSCAR (FINASTERIDE) 07/02/2010 2 - Rash Date Reviewed: 02/15/2025 Reviewed by: Jodie Bowers APRN.HERBICIDE SPRAYER - Fully Assessed Prescriptions as of 02/15/2025 - doxazosin (CARDURA) 2 mg tablet Take 1 tablet by mouth daily at bedtime. - Blood-Glucose Meter,Continuous (DEXCOM G7 REGIONAL AGRONOMIST) [facility] Dx: E11.49. ?Insulin: Yes. Use to check blood sugars at least 4 times a day - Blood-Glucose Sensor (DEXCOM G7 SENSOR) [facility] Dx: E11.49. ?Insulin: Yes. Apply new sensor every ten (10) days - CPAP/BIPAP/OTHER Type .CPAPSettings into a note to see current settings/supplies/DME information. - clotrimazole (LOTRIMIN) 1 % cream Apply 1 application to affected area two times a day. - semaglutide (OZEMPIC) 1 mg/dose (4 mg/3 mL) pen Inject 1 mg subcutaneously one time a week. Per medication program. - blood sugar diagnostic (TRUE METRIX GLUCOSE TEST STRIP) test strip Test twice daily. Dx: E11.49. Insulin: Yes. - furosemide (LASIX) 40 mg tablet Take one(1) tablet daily in the morning. Take one(1) tablet in the evening, every other day. Per Cardiology. - triamcinolone acetonide (KENALOG) 0.1 % cream Apply 1 application to affected area two times a day. Apply sparingly to top of ears - apixaban (ELIQUIS) 2.5 mg tab(s) Take 1 tablet by mouth twice daily. Per Cardiology. - sacubitril-valsartan (ENTRESTO) 97-103 mg tablet Take 1 tablet by mouth two times a day. Per Cardiology. - insulin degludec (TRESIBA FLEXTOUCH U-200) 200 unit/mL (3 mL) injection Inject 64 Units subcutaneously every morning. Pt Assistance Medication. - insulin aspart U-100 (NOVOLOG FLEXPEN U-100 INSULIN) 100 unit/mL (3 mL) Inject 8 Units subcutaneously daily with dinner. Patient assistance. (will switch from Humalog sample to Novolog when supply arrives) - atorvastatin (LIPITOR) 40 mg tablet Take 40 mg by mouth once daily. - insulin needles, DISPOSABLE, 31 gauge x 5/16 ndle Test blood sugar twice a day DX:E11.49 - nitroglycerin sublingual (NITROQUICK) 0.4 mg SL tablet Dissolve 1 tablet under the tongue as needed for Chest Pain. If no pain relief call 911. - MULTIVITAMIN TAB Take one(1) tablet daily. Problem List As Of Date 02/15/2025 Noted Resolved Morbid obesity with BMI of 45.0-49.9, adult (HC* Type 2 diabetes mellitus with neurological maricarmen* Essential hypertension [I10] Anal fissure [K60.2] 06/19/2006 10/09/2010 Shortness of breath [R06.02] 10/23/2006 10/09/2010 Unspecified pleural effusion [J90] 12/25/2006 10/09/2010 Coronary atherosclerosis [I25.10] 01/03/2009 Hyperlipemia [E78.5] 01/03/2009 Occlusion and stenosis of carotid artery withou*01/31/2009 01/26/2019 Unspecified Sleep Disturbance [G47.9] 01/31/2009 09/12/2015 Elevated prostate specific antigen (PSA) [R97.2*02/01/2009 01/19/2018 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] 11/30/2009 10/09/2010 BPH with obstruction/lower urinary tract sympto*08/08/2010 Skin mass [R22.9] 10/26/2010 05/13/2013 Anemia [D64.9] 05/12/2013 OA (osteoarthritis) of knee [M17.9] 09/23/2014 Atrial fibrillation (HCC) [I48.91] 05/13/2016 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] 07/30/2016 RBBB (right bundle branch block) [I45.10] 07/30/2016 Encounter for monitoring anti-arrhythmic therap*07/30/2016 COPD with exacerbation (HCC) [J44.1] 08/07/2016 06/01/2020 CKD (chronic kidney disease) stage 3, GFR 30-59*09/20/2017 12/15/2018 CKD (chronic kidney disease) stage 4, GFR 15-29*07/22/2018 Chronic diastolic CHF (congestive heart failure*07/22/2018 Chronic cough [R05.3] 06/01/2020 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] 11/02/2020 Hypercalcemia [E83.52] 11/23/2021 Wound of left leg [S81.802A] 06/12/2022 05/09/2023 Recurrent epistaxis [R04.0] 06/12/2022 05/09/2023 Candidal intertrigo [B37.2] 11/05/2024 HELDER on CPAP [G47.33] 09/19/2016 Encounter Status:Closed by LISA TRIVEDI on 02/15/25 Normal [facility] Comprehensive metabolic 2000 panelOrdered By: Gisell Zavala on 02-15-2025 Albumin [Mass/Vol] 3.9 g/dL 3.9 - 4.9 g/dL [facility] ALP [Catalytic activity/Vol] 82 U/L 38 - 113 U/L [facility] ALT [Catalytic activity/Vol] 10 U/L 10 - 54 U/L [facility] Anion gap [Moles/Vol] 8 mmol/L 8 - 15 mmol/L [facility] AST [Catalytic activity/Vol] 11 U/L Low 14 - 40 U/L [facility] Bilirubin [Mass/Vol] 0.5 mg/dL 0.2 - 1 .3 mg/dL [facility] Calcium [Mass/Vol] 11.9 mg/dL High 8.5 - 10. 2 mg/dL [facility] Chloride [Moles/Vol] 107 mmol/L 98 - 10 7 mmol/L [facility] CO2 [Moles/Vol] 29 mmol/L 22 - 30 mmol/L [facility] Creatinine [Mass/Vol] 2.82 mg/dL High 0.73 - 1.22 mg/dL [facility] GFR/1.73 sq M.predicted among non-blacks MDRD (S/P/Bld) [Vol rate/Area] 21 mL/min/{1.73_m2} Low - PINF [facility] Comment on above: Estimated Glomerular Filtration Rate (eGFR) is calculated using the 2020 CKD-EPI creatinine equation. This equation utilizes serum creatinine, sex, and age as parameters. The creatinine assay has traceable calibration to isotope dilution-mass spectrometry. Refer to KDIGO guidelines for clinical interpretation. In patients with unstable renal function, e.g. those with acute kidney injury, the eGFR may not accurately reflect actual GFR. Glucose [Mass/Vol] 90 mg/dL 74 - 99 mg/dL [facility] Comment on above: The [place] Diabete s Association (ADA) provides guidance for cutoff values for fasting glucose and random glucose. The ADA defines fasting as no caloric intake for at least 8 hours. Fasting plasma glucose results between 100 to 125 mg/dL indicate increased risk for diabetes (prediabetes). Fasting plasma glucose results greater than or equal to 126 mg/dL meet the criteria for diagnosis of diabetes. In the absence of unequivocal hyperglycemia, results should be confirmed by repeat testing. In a patient with classic symptoms of hyperglycemia or hyperglycemic crisis, random plasma glucose results greater than or equal to 200 mg/dL meet the criteria for diagnosis of diabetes. Reference: Standards of Medical Care in Diabetes 2016, [place] Diabetes Association. Diabetes Care. 2016.39(Suppl 1). Interpretation and review of laboratory results Abnormal [facility] Potassium [Moles/Vol] 4.1 mmol/L 3.7 - 5.1 mmol/L [facility] Protein [Mass/Vol] 6.3 g/dL 6.3 - 8.0 g/dL [facility] Sodium [Moles/Vol] 144 mmol/L 136 - 144 mmol/L [facility] Urea nitrogen [Mass/Vol] 57 mg/dL High 9 - 24 mg/dL [facility] Comprehensive metabolic 2000 panelon 02-15-2025 Albumin [Mass/Vol] 3.9 g/dL Normal 3.9-4.9 [facility] Comment on above: Order Comment: Speci men Type: BLOOD SPECIMENOrdering Facility: [facility] Address: [address] [place] [address] Performed By: #### 2 4323-8 ####[facility] [id number] [place] [address] [place] ALP [Catalytic activity/Vol] 82 U/L Normal 38-113 [facility] Comment on above: Order Comment: Speci men Type: BLOOD SPECIMENOrdering Facility: [facility] Address: [address] [place] [address] Performed By: #### 2 4323-8 ####[facility] [id number] [place] [address] [place] ALT [Catalytic activity/Vol] 10 U/L Normal 10-54 [facility] Comment on above: Order Comment: Speci men Type: BLOOD SPECIMENOrdering Facility: [facility] Address: [address] [place] [address] Performed By: #### 2 4323-8 ####[facility] LEMUEL MILLTOWNCLIA [id number] [place] [address] [place] Anion gap [Moles/Vol] 8 mmol/L Normal 8-15 [facility] Comment on above: Order Comment: Speci men Type: BLOOD SPECIMENOrdering Facility: [facility] Address: [address] [place] [address] Performed By: #### 2 4323-8 ####[facility]ITAL[facility] [id number] [place] [address] [place] AST [Catalytic activity/Vol] 11 U/L Low 14-40 [facility] Comment on above: Order Comment: Speci men Type: BLOOD SPECIMENOrdering Facility: [facility] Address: [address] [place] [address] Performed By: #### 2 4323-8 ####[facility] [id number] [place] [address] [place] Bilirubin [Mass/Vol] 0.5 mg/dL Normal 0.2-1.3 [facility] Comment on above: Order Comment: Speci men Type: BLOOD SPECIMENOrdering Facility: [facility] Address: [address] [place] [address] Performed By: #### 2 4323-8 ####[facility] MILLWNCLIA [id number] [place] [address] [place] Calcium [Mass/Vol] 11.9 mg/dL High 8.5-10.2 [facility] Comment on above: Order Comment: Speci men Type: BLOOD SPECIMENOrdering Facility: [facility] Address: [address] [place] [address] Performed By: #### 2 4323-8 ####[facility] ERNCLIA [id number] [place] [address] [place] Chloride [Moles/Vol] 107 mmol/L Normal 98-107 [facility] Comment on above: Order Comment: Speci men Type: BLOOD SPECIMENOrdering Facility: [facility] Address: [address] [place] [address] Performed By: #### 2 4323-8 ####[facility] [id number] [place] [address] [place] CO2 [Moles/Vol] 29 mmol/L Normal 22-30 [facility] Comment on above: Order Comment: Speci men Type: BLOOD SPECIMENOrdering Facility: [facility] Address: [address] [place] [address] Performed By: #### 2 4323-8 ####[facility] [id number] [place] [address] [place] Creatinine [Mass/Vol] 2.82 mg/dL High 0.73-1.22 [facility] Comment on above: Order Comment: Speci men Type: BLOOD SPECIMENOrdering Facility: [facility] Address: [address] [place] [address] Performed By: #### 2 4323-8 ####[facility] [id number] [place] [address] [place] Creatinine and Glomerular filtration rate.predicted panel (S/P/Bld) 21 mL/min/1.73m??? Low >=60 [facility] Comment on above: Order Comment: Speci men Type: BLOOD SPECIMENOrdering Facility: [facility] Address: [address] [place] [address] Result Comment: Billie mated Glomerular Filtration Rate (eGFR) is calculated using the 2020 CKD-EPI creatinine equation. This equation utilizes serum creatinine, sex, and age as parameters. The creatinine assay has traceable calibration to isotope dilution-mass spectrometry. Refer to KDIGO guidelines for clinical interpretation. In patients with unstable renal function, e.g. those with acute kidney injury, the eGFR may not accurately reflect actual GFR. Performed By: #### 2 4323-8 ####[facility] ERAMANDA [id number] [place] [address] [place] Glucose [Mass/Vol] 90 mg/dL Normal 74-99 [facility] Comment on above: Order Comment: Alexia wilson Type: BLOOD SPECIMENOrdering Facility: [facility] Address: [address] [place] [address] Result Comment: The [place] Diabetes Association (ADA) provides guidance for cutoff values for fasting glucose and random glucose. The ADA defines fasting as no caloric intake for at least 8 hours. Fasting plasma glucose results between 100 to 125 mg/dL indicate increased risk for diabetes (prediabetes). Fasting plasma glucose results greater than or equal to 126 mg/dL meet the criteria for diagnosis of diabetes. In the absence of unequivocal hyperglycemia, results should be confirmed by repeat testing. In a patient with classic symptoms of hyperglycemia or hyperglycemic crisis, random plasma glucose results greater than or equal to 200 mg/dL meet the criteria for diagnosis of diabetes. Reference: Standards of Medical Care in Diabetes 2016, [place] Diabetes Association. Diabetes Care. 2016.39(Suppl 1). Performed By: #### 2 4323-8 ####[facility] [id number] [place] [address] [place] Potassium [Moles/Vol] 4.1 mmol/L Normal 3.7-5.1 [facility] Comment on above: Order Comment: Alexia wilson Type: BLOOD SPECIMENOrdering Facility: [facility] Address: [address] [place] [address] Performed By: #### 2 4323-8 ####[facility] ERSUDARSHANLIA [id number] [address] [place] Protein [Mass/Vol] 6.3 g/dL Normal 6.3-8.0 [facility] Comment on above: Order Comment: Speci men Type: BLOOD SPECIMENOrdering Facility: [facility] Address: [address] [place] [address] Performed By: #### 2 4323-8 ####[facility] ERNCLIA [id number] [place] [address] [place] Sodium [Moles/Vol] 144 mmol/L Normal 136-144 [facility] Comment on above: Order Comment: Speci men Type: BLOOD SPECIMENOrdering Facility: [facility] Address: [address] [place] [address] Performed By: #### 2 4323-8 ####[facility] ERNCLIA [id number] [place] [address] [place] Urea nitrogen [Mass/Vol] 57 mg/dL High 9-24 [facility] Comment on above: Order Comment: Speci men Type: BLOOD SPECIMENOrdering Facility: [facility] Address: [address] [place] [address] Performed By: #### 2 4323-8 ####[facility] ERNCLIA [id number] [place] [address] [place] [id number] 02-15-2025 ECG01 Ventricular Rate : 5 9 BPM Atrial Rate : 277 BPM QRS Duration : 150 ms Q-T Interval : 458 ms QTC Calculation(Bazett) : 453 ms Calculated R Haywood : 90 degrees Calculated T Haywood : 13 degrees ATRIAL FIBRILLATION WITH SLOW VENTRICULAR RESPONSE WITH PREMATURE VENTRICULAR COMPLEXES COMPLETE RIGHT BUNDLE BRANCH BLOCK ABNORMAL ECG Confirmed by MD JUSTICE, QARAB ([id number]) on 02/16/2025 4:14:50 PM NAME : FEDERICO HU PID : [id number] : 1935 Gender : Male Race : ORD : Procedure Date : Feb 15 2025 09:21:21 Edit Date : Feb 16 2025 16:14:51 Diagnosis: ATRIAL FIBRILLATION WITH SLOW VENTRICULAR RESPONSE WITH PREMATURE VENTRICULAR COMPLEXES COMPLETE RIGHT BUNDLE BRANCH BLOCK ABNORMAL ECG Confirmed by MD RENDON QARAB ([id number]) on 02/16/2025 4:14:50 PM Test Reason : Location : 636 : [facility] Overread By : MD RENDON QARAB Edited By : MD RENDON QARAB Referred By : , Acquired by : Meño pritchard [facility] HISTORY PHYSICALon HISTORY PHYSICAL HNO ID: [id number] Author: JODIE BOWERS APRN.HERBICIDE SPRAYER Service: ? Author Type: Nurse Practitioner Type: H&P Filed: 02/18/2025 10:13 Note Text: [facility] HISTORY AND PHYSICAL EXAMINATION SERVICE DATE: 02/15/2025 SERVICE TIME: 10:21 AM PRIMARY CARE PHYSICIAN: Nithin Acevedo MD Assessment Patient has the following medical conditions which may affect neva-operative course: Chronic diastolic CHF (congestive heart failure) (HCC) Assessment: daily Entresto, Grade 3 diastolic dysfunction, EF 60-65%, last cardiac OV on 11/23/2024 scanned into [facility] 11/2024 Echo Scanned into [facility] Type 2 diabetes mellitus with neurological manifestations, controlled (HCC) Assessment: IDDM and weekly injectable, w/ neuropathy Hemoglobin A1C (%) Date Value 07/28/2024 6.4 11/15/2021 9.3 Hemoglobin A1C (POCT) (%) Date Value 10/13/2023 6.7 VHD (valvular heart disease) 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, mild to moderate TVR, trivial AVR and mild AVS (dimensions below), and trivial PVR Coronary atherosclerosis Assessment: s/p CABG, followed by stents, c/w daily ASA 11/23/2024 Dr. Strickland, Cardiology, Scanned into [facility] Atrial fibrillation ([facility]) Assessment: paroxymal atrial flutter, s/p cardioversion 2014 at [facility], rate controlled, daily Eliquis, reviewed to withhold 3 days prior to surgery, pt verbalized understanding. 11/23/2024 Dr. Strickland, Cardiology, Scanned into [facility] RBBB (right bundle branch block) Assessment: hx, asymptomatic Essential hypertension Assessment: controlled on rx Last 14 BP Last 14 Encounter BP Readings: Date: BP: 02/15/2025 116/72 01/21/2025 130/66 12/13/2024 109/58 12/13/2024 123/48 11/26/2024 120/50 11/05/2024 110/50 09/01/2024 124/60 07/28/2024 118/64 03/27/2024 121/76 10/13/2023 128/66 05/09/2023 111/51 06/12/2022 130/68 11/23/2021 144/78[bp true[ 07/05/2021 113/70 Hyperlipemia Assessment: c/w statin HELDER on CPAP Assessment: c/w CPAP CKD (chronic kidney disease) stage 4, GFR 15-29 ml/min ([facility]) Assessment: following nephrology Creatinine Date Value Ref Range Status 02/15/2025 2.82 (H) 0.73 - 1.22 mg/dL Final 01/21/2025 2.76 (H) 0.73 - 1.22 mg/dL Final 01/04/2025 3.04 (H) 0.73 - 1.22 mg/dL Final 12/30/2024 3.46 (H) 0.73 - 1.22 mg/dL Final Abnormal chest CT Assessment: following pulmonary, pending ?bronch, has pending referral for interventional pulmonary for consideration of bronch, but was decided he was too high risk and to tx with atb and repeat CT in March, to Dr. Lee for pulmonary optimization TE Dr. Lee 01/24/2025 I spoke with Jean Claude regarding recent consultation to interventional pulmonary regarding bronchoscopy with transbronchial biopsy. Patient is high risk and recommendations were for a course of antibiotics with repeat CT and potential intervention if infiltrates were persistent. After speaking with Jean Claude, he is deciding against any invasive intervention at this time. He is agreeable to a course of antibiotics with repeat CT of his chest. I will make arrangements for the CT and send in a prescription to [facility] for his antibiotic. DATE OF EXAM: Dec 30 2024 11:13AM [facility] 0541 - CT CHEST WO IVCON / IMPRESSION: New groundglass and consolidative opacities predominantly in bilateral lower lobes, left greater than right, which may reflect inflammatory/infectious process with differential including pulmonary hemorrhage. Other entities such as pulmonary amyloidosis and pulmonary alveolar proteinosis also possible in the appropriate clinical setting. MGUS (monoclonal gammopathy of unknown significance) Assessment: est with hem/onc Anemia Assessment: following hem/onc Hemoglobin (g/dL) Date Value 02/15/2025 10.9 06/01/2021 15.1 Hematocrit (%) Date Value 02/15/2025 35.4 06/01/2021 47.4 WBC (k/uL) Date Value 02/15/2025 5.20 06/01/2021 7.07 BPH with obstruction/lower urinary tract symptoms Assessment: controlled on rx ANESTHESIA FINDINGS: Intubation History: No history of difficult intubation Significant Anesthesia Considerations: none Airway History: No history of difficult airway To Activity Status Index: METS: Walk indoors, such as around the house (1.75 METs) Do light work around the house, such as dusting or washing dishes (2.70 METs) Take care of self; that is eating, dressing, bathing, using the toilet (2.75 METs) Walk a block or two on level ground (2.75 METs) DASI Score: 9.95 (With walker) Patient denies any chest pain or undue shortness of breath with the above physical activity. Clinical Frailty Scale: 4. Apparently vulnerable STOP-Bang Score: Snores loudly Often feels tired, fatigued, or sleepy during the daytime Has been observed to stop breathing or choking/gasping during sleep Has or is being treated for high blood pressure BMI greater than 35 kg/m2 (more content not included)... Normal [facility] HbA1c (Bld)on 02-15-2025 Average glucose Estimated from glycated hemoglobin (Bld) [Mass/Vol] 117 mg/dL [facility] Comment on above: eAG: (Estimated aver age glucose) is a calculated value from HgbA1c and is outside dealer sales representative of the average blood glucose level in the last 2-3 month period. HbA1c (Bld) [Mass fraction] 5.7 % High 4.3 - 5.6 % [facility] Comment on above: [place] Diabetes As sociation guidelines indicate that patients with HgbA1c in the range 5.7-6.4% are at increased risk for development of diabetes, and intervention by lifestyle modification may be beneficial. HgbA1c greater or equal to 6.5% is considered diagnostic of diabetes. Interpretation and review of laboratory results Abnormal [facility] Average glucose Estimated from glycated hemoglobin (Bld) [Mass/Vol] 117 mg/dL Normal [facility] Comment on above: Order Comment: Alexia wilson Type: BLOOD SPECIMEN Ordering Facility: [facility] Address: [address] [place] [address] Result Comment: eAG: (Estimated average glucose) is a calculated value from HgbA1c and is outside dealer sales representative of the average blood glucose level in the last 2-3 month period. Performed By: #### 2 4321-2 #### [facility] CLIA [id number] [address] [place] [address] [place] HbA1c (Bld) [Mass fraction] 5.7 % High 4.3-5.6 [facility] Comment on above: Order Comment: Alexia wilson Type: BLOOD SPECIMEN Ordering Facility: [facility] Address: [address] [place] [address] Result Comment: [place] Diabetes Association guidelines indicate that patients with HgbA1c in the range 5.7-6.4% are at increased risk for development of diabetes, and intervention by lifestyle modification may be beneficial. HgbA1c greater or equal to 6.5% is considered diagnostic of diabetes. Performed By: #### 2 4321-2 #### [facility] CLIA [id number] [address] [place] [address] NT PRO BNPon 02-15-2025 Natriuretic peptide.B prohormone N-Terminal [Mass/Vol] 2302 pg/mL High NINF - 450 pg/mL [facility] NT-proBNP SerPl-mCncon 02-15 Natriuretic peptide.B prohormone N-Terminal [Mass/Vol] 2302 pg/mL High <450 [facility] Comment on above: Order Comment: Alexia wilson Type: BLOOD SPECIMEN Ordering Facility: [facility] Address: [address] [place] [address] Performed By: #### 2 4321-2 #### [facility] CLIA [id number] [address] [place] [address] [place] Natriuretic peptide.B foreign lim N-Terminal [Mass/Vol]on 02-15-2025 Interpretation and review of laboratory results Abnormal [facility] CNPNon 01-24-2025 CNPN Telephone (PULMWS) FEDERICO HU ([id number]) 1935 M Date Time Provider Department 01/24/25 VIET LEE PULMWS During your visit today, we recorded the following information about you: Viet Lee MD 01/24/2025 4:10 PM Signed I spoke with Jean Claude regarding recent consultation to interventional pulmonary regarding bronchoscopy with transbronchial biopsy. Patient is high risk and recommendations were for a course of antibiotics with repeat CT and potential intervention if infiltrates were persistent. After speaking with Jean Claude, he is deciding against any invasive intervention at this time. He is agreeable to a course of antibiotics with repeat CT of his chest. I will make arrangements for the CT and send in a prescription to [facility] for his antibiotic. Allergies As of Date: 01/24/2025 Noted Allergy Reaction FEXOFENADINE 11/05/2024 16 - Unknown PROSCAR (FINASTERIDE) 07/02/2010 2 - Rash Date Reviewed: 01/21/2025 Reviewed by: Katherine Estrada LPN - Fully Assessed Reason for Visit: Patient Update [1234] Primary Visit Diagnosis:Pneumonia of both lower lobes due to infectious organism [J18.9] Order(s):cefdinir (OMNICEF) 300 mg capsuleTake 1 capsule by mouth two times a day for 10 days.Disp: 20 capsuleRfl: 0 CT CHEST WO IVCON [[id number]] Order #: [id number] FUTURE Prescriptions as of 01/24/2025 - cefdinir (OMNICEF) 300 mg capsule Take 1 capsule by mouth two times a day for 10 days. - doxazosin (CARDURA) 2 mg tablet Take 1 tablet by mouth daily at bedtime. - Blood-Glucose Meter,Continuous (DEXCOM G7 REGIONAL AGRONOMIST) [facility] Dx: E11.49. ?Insulin: Yes. Use to check blood sugars at least 4 times a day - Blood-Glucose Sensor (DEXCOM G7 SENSOR) [facility] Dx: E11.49. ?Insulin: Yes. Apply new sensor every ten (10) days - CPAP/BIPAP/OTHER Type .CPAPSettings into a note to see current settings/supplies/DME information. - clotrimazole (LOTRIMIN) 1 % cream Apply 1 application to affected area two times a day. - semaglutide (OZEMPIC) 1 mg/dose (4 mg/3 mL) pen Inject 1 mg subcutaneously one time a week. Per medication program. - blood sugar diagnostic (TRUE METRIX GLUCOSE TEST STRIP) test strip Test twice daily. Dx: E11.49. Insulin: Yes. - furosemide (LASIX) 40 mg tablet Take one(1) tablet daily in the morning. Take one(1) tablet in the evening, every other day. Per Cardiology. - triamcinolone acetonide (KENALOG) 0.1 % cream Apply 1 application to affected area two times a day. Apply sparingly to top of ears - apixaban (ELIQUIS) 2.5 mg tab(s) Take 1 tablet by mouth twice daily. Per Cardiology. - sacubitril-valsartan (ENTRESTO) 97-103 mg tablet Take 1 tablet by mouth two times a day. Per Cardiology. - insulin degludec (TRESIBA FLEXTOUCH U-200) 200 unit/mL (3 mL) injection Inject 64 Units subcutaneously every morning. Pt Assistance Medication. - insulin aspart U-100 (NOVOLOG FLEXPEN U-100 INSULIN) 100 unit/mL (3 mL) Inject 8 Units subcutaneously daily with dinner. Patient assistance. (will switch from Humalog sample to Novolog when supply arrives) - atorvastatin (LIPITOR) 40 mg tablet Take 40 mg by mouth once daily. - insulin needles, DISPOSABLE, 31 gauge x 5/16 ndle Test blood sugar twice a day DX:E11.49 - nitroglycerin sublingual (NITROQUICK) 0.4 mg SL tablet Dissolve 1 tablet under the tongue as needed for Chest Pain. If no pain relief call 911. - MULTIVITAMIN TAB Take one(1) tablet daily. 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* Essential hypertension [I10] Anal fissure [K60.2] 06/19/2006 10/09/2010 Shortness of breath [R06.02] 10/23/2006 10/09/2010 Unspecified pleural effusion [J90] 12/25/2006 10/09/2010 Coronary atherosclerosis [I25.10] 01/03/2009 Hyperlipemia [E78.5] 01/03/2009 Occlusion and stenosis of carotid artery withou*01/31/2009 01/26/2019 Unspecified Sleep Disturbance [G47.9] 01/31/2009 09/12/2015 Elevated prostate specific antigen (PSA) [R97.2*02/01/2009 01/19/2018 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] 11/30/2009 10/09/2010 BPH with obstruction/lower urinary tract sympto*08/08/2010 Skin mass [R22.9] 10/26/2010 05/13/2013 Anemia [D64.9] 05/12/2013 OA (osteoarthritis) of knee [M17.9] 09/23/2014 Atrial fibrillation (HCC) [I48.91] 05/13/2016 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] 07/30/2016 RBBB (right bundle branch block) [I45.10] 07/30/2016 Encounter for monitoring anti-arrhythmic therap*07/30/2016 COPD with exacerbation (HCC) [J44.1] 08/07/2016 06/01/2020 CKD (chronic kidney disease) stage 3, GFR 30-59*09/20/2017 12/15/2018 CKD (chronic kidney disease) stage 4, GFR 15-29*07/22/2018 Chronic diastolic CHF (congestive heart failure*07/22/2018 Chronic cough [R05.3] 06/01/2020 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 Normal [facility] Basic metabolic 2000 panelon 01-21-2025 Anion gap [Moles/Vol] 8 mmol/L Normal 8-15 [facility] Comment on above: Order Comment: Speci men Type: BLOOD SPECIMEN Ordering Facility: [facility] Address: [address] [place] [address] Performed By: #### 2 4321-2 #### [facility] CLIA [id number] [address] [place] [address] [place] Calcium [Mass/Vol] 12.1 mg/dL High 8.5-10.2 [facility] Comment on above: Order Comment: Speci men Type: BLOOD SPECIMEN Ordering Facility: [facility] Address: [address] [place] [address] Performed By: #### 2 4321-2 #### [facility] CLIA [id number] [address] [place] [address] [place] Chloride [Moles/Vol] 107 mmol/L Normal 98-107 [facility] Comment on above: Order Comment: Speci men Type: BLOOD SPECIMEN Ordering Facility: [facility] Address: [address] [place] [address] Performed By: #### 2 4321-2 #### [facility] CLIA [id number] [address] [place] [address] [place] CO2 [Moles/Vol] 26 mmol/L Normal 22-30 [facility] Comment on above: Order Comment: Speci men Type: BLOOD SPECIMEN Ordering Facility: [facility] Address: [address] [place] [address] Performed By: #### 2 4321-2 #### [facility] CLIA [id number] [address] [place] [address] [place] Creatinine [Mass/Vol] 2.76 mg/dL High 0.73-1.22 [facility] Comment on above: Order Comment: Speci men Type: BLOOD SPECIMEN Ordering Facility: [facility] Address: [address] [place] [address] Performed By: #### 2 4321-2 #### [facility] CLIA [id number] [address] [place] [address] [place] Creatinine and Glomerular filtration rate.predicted panel (S/P/Bld) 21 mL/min/1.73m??? Low >=60 [facility] Comment on above: Order Comment: Alexia wilson Type: BLOOD SPECIMEN Ordering Facility: [facility] Address: [address] [place] [address] Result Comment: Billie mated Glomerular Filtration Rate (eGFR) is calculated using the 2020 CKD-EPI creatinine equation. This equation utilizes serum creatinine, sex, and age as parameters. The creatinine assay has traceable calibration to isotope dilution-mass spectrometry. Refer to KDIGO guidelines for clinical interpretation. In patients with unstable renal function, e.g. those with acute kidney injury, the eGFR may not accurately reflect actual GFR. Performed By: #### 2 4321-2 #### [facility] [id number] [address] [place] [address] [place] Glucose [Mass/Vol] 103 mg/dL High 74-99 [facility] Comment on above: Order Comment: Alexia wilson Type: BLOOD SPECIMEN Ordering Facility: [facility] Address: [address] [place] [address] Result Comment: The [place] Diabetes Association (ADA) provides guidance for cutoff values for fasting glucose and random glucose. The ADA defines fasting as no caloric intake for at least 8 hours. Fasting plasma glucose results between 100 to 125 mg/dL indicate increased risk for diabetes (prediabetes). Fasting plasma glucose results greater than or equal to 126 mg/dL meet the criteria for diagnosis of diabetes. In the absence of unequivocal hyperglycemia, results should be confirmed by repeat testing. In a patient with classic symptoms of hyperglycemia or hyperglycemic crisis, random plasma glucose results greater than or equal to 200 mg/dL meet the criteria for diagnosis of diabetes. Reference: Standards of Medical Care in Diabetes 2016, [place] Diabetes Association. Diabetes Care. 2016.39(Suppl 1). Performed By: #### 2 4321-2 #### [facility] [id number] [address] [place] [address] [place] Potassium [Moles/Vol] 4.4 mmol/L Normal 3.7-5.1 [facility] Comment on above: Order Comment: Speci men Type: BLOOD SPECIMEN Ordering Facility: [facility] Address: [address] [place] [address] Performed By: #### 2 4321-2 #### [facility] CLIA [id number] [address] [place] [address] [place] Sodium [Moles/Vol] 141 mmol/L Normal 136-144 [facility] Comment on above: Order Comment: Speci men Type: BLOOD SPECIMEN Ordering Facility: [facility] Address: [address] [place] [address] Performed By: #### 2 4321-2 #### [facility] CLIA [id number] [address] [place] [address] [place] Urea nitrogen [Mass/Vol] 74 mg/dL High 9-24 [facility] Comment on above: Order Comment: Speci men Type: BLOOD SPECIMEN Ordering Facility: [facility] Address: [address] [place] [address] Performed By: #### 2 4321-2 #### [facility] CLIA [id number] [address] [place] [address] [place] CBC W Auto Differential pane l (Bld)on 01-21-2025 Basophils (Bld) [#/Vol] 0.05 10*3/uL Normal <0.11 [facility] Comment on above: Order Comment: Speci men Type: BLOOD SPECIMEN Ordering Facility: [facility] Address: [address] [place] [address] Performed By: #### 2 731-8 #### [facility] CLIA [id number] [address] [place], [place] [address] [address] [place] Basophils/100 WBC (Bld) 1.1 % Normal [facility] Comment on above: Order Comment: Speci men Type: BLOOD SPECIMEN Ordering Facility: [facility] Address: [address] [place] [address] Performed By: #### 2 731-8 #### [facility] CLIA [id number] [address] [place] [address] [place] Differential cell count method Nom (Bld) Auto Normal [facility] Comment on above: Order Comment: Speci men Type: BLOOD SPECIMEN Ordering Facility: [facility] Address: [address] [place] [address] Performed By: #### 2 731-8 #### [facility] CLIA [id number] [address] [place] [address] [place] Eosinophils (Bld) [#/Vol] 0.28 10*3/uL Normal <0.46 [facility] Comment on above: Order Comment: Speci men Type: BLOOD SPECIMEN Ordering Facility: [facility] Address: [address] [place] [address] Performed By: #### 2 731-8 #### [facility] CLIA [id number] [address] [place] [address] [place] Eosinophils/100 WBC (Bld) 6.2 % Normal [facility] Comment on above: Order Comment: Speci men Type: BLOOD SPECIMEN Ordering Facility: [facility] Address: [address] [place] [address] Performed By: #### 2 731-8 #### [facility] CLIA [id number] [address] [place] [address] [place] Erythrocyte distribution width (RBC) [Ratio] 13.5 % Normal 11.5-15.0 [facility] Comment on above: Order Comment: Speci men Type: BLOOD SPECIMEN Ordering Facility: [facility] Address: [address] [place] [address] Performed By: #### 2 731-8 #### [facility] CLIA [id number] [address] [place] [address] [place] Hematocrit (Bld) [Volume fraction] 35.9 % Low 39.0-51.0 [facility] Comment on above: Order Comment: Speci men Type: BLOOD SPECIMEN Ordering Facility: [facility] Address: [address] [place] [address] Performed By: #### 2 731-8 #### [facility] CLIA [id number] [address] [place] [address] [place] Hemoglobin (Bld) [Mass/Vol] 11.0 g/dL Low 13.0-17.0 [facility] Comment on above: Order Comment: Speci men Type: BLOOD SPECIMEN Ordering Facility: [facility] Address: [address] [place] [address] Performed By: #### 2 731-8 #### [facility] CLIA [id number] [address] [place] [address] [place] Immature granulocytes (Bld) [#/Vol] 10*3/uL Normal <0.10 [facility] Comment on above: Order Comment: Speci men Type: BLOOD SPECIMEN Ordering Facility: [facility] Address: [address] [place] [address] Performed By: #### 2 731-8 #### [facility] CLIA [id number] [address] [place] [address] [place] Immature granulocytes/100 WBC (Bld) 0.2 % Normal [facility] Comment on above: Order Comment: Speci men Type: BLOOD SPECIMEN Ordering Facility: [facility] Address: [address] [place] [address] Performed By: #### 2 731-8 #### [facility] CLIA [id number] [address] [place] [address] [place] Lymphocytes (Bld) [#/Vol] 0.71 10*3/uL Low 1.00-4.00 [facility] Comment on above: Order Comment: Speci men Type: BLOOD SPECIMEN Ordering Facility: [facility] Address: [address] [place] [address] Performed By: #### 2 731-8 #### [facility] CLIA [id number] [address] [place] [address] [place] Lymphocytes/100 WBC (Bld) 15.8 % Normal [facility] Comment on above: Order Comment: Speci men Type: BLOOD SPECIMEN Ordering Facility: [facility] Address: [address] [place] [address] Performed By: #### 2 731-8 #### [facility] CLIA [id number] [address] [place] [address] [place] MCH (RBC) [Entitic mass] 27.7 pg Normal 26.0-34.0 [facility] Comment on above: Order Comment: Speci men Type: BLOOD SPECIMEN Ordering Facility: [facility] Address: [address] [place] [address] Performed By: #### 2 731-8 #### [facility] CLIA [id number] [address] [place] [address] [place] MCHC (RBC) [Mass/Vol] 30.6 g/dL Normal 30.5-36.0 [facility] Comment on above: Order Comment: Speci men Type: BLOOD SPECIMEN Ordering Facility: [facility] Address: [address] [place] [address] Performed By: #### 2 731-8 #### [facility] CLIA [id number] [address] [place] [address] [place] MCV (RBC) [Entitic vol] 90.4 fL Normal 80.0-100.0 [facility] Comment on above: Order Comment: Speci men Type: BLOOD SPECIMEN Ordering Facility: [facility] Address: [address] [place] [address] Performed By: #### 2 731-8 #### [facility] CLIA [id number] [address] [place] [address] [place] Monocytes (Bld) [#/Vol] 0.54 10*3/uL Normal <0.87 [facility] Comment on above: Order Comment: Speci men Type: BLOOD SPECIMEN Ordering Facility: [facility] Address: [address] [place] [address] Performed By: #### 2 731-8 #### [facility] CLIA [id number] [address] [place] [address] [place] Monocytes/100 WBC (Bld) 12.0 % Normal [facility] Comment on above: Order Comment: Speci men Type: BLOOD SPECIMEN Ordering Facility: [facility] Address: [address] [place] [address] Performed By: #### 2 731-8 #### [facility] CLIA [id number] [address] [place] [address] [place] Neutrophils (Bld) [#/Vol] 2.90 10*3/uL Normal 1.45-7.50 [facility] Comment on above: Order Comment: Speci men Type: BLOOD SPECIMEN Ordering Facility: [facility] Address: [address] [place] [address] Performed By: #### 2 731-8 #### [facility] CLIA [id number] [address] [place] [address] [place] Neutrophils/100 WBC (Bld) 64.7 % Normal [facility] Comment on above: Order Comment: Speci men Type: BLOOD SPECIMEN Ordering Facility: [facility] Address: [address] [place] [address] Performed By: #### 2 731-8 #### [facility] CLIA [id number] [address] [place] [address] [place] Nucleated RBC (Bld) [#/Vol] 10*3/uL Normal <0.01 [facility] Comment on above: Order Comment: Speci men Type: BLOOD SPECIMEN Ordering Facility: [facility] Address: [address] [place] [address] Performed By: #### 2 731-8 #### [facility] CLIA [id number] [address] [place] [address] [place] Nucleated RBC/100 WBC (Bld) [Ratio] 0.0 /100 WBC Normal [facility] Comment on above: Order Comment: Speci men Type: BLOOD SPECIMEN Ordering Facility: [facility] Address: [address] [place] [address] Performed By: #### 2 731-8 #### [facility] CLIA [id number] [address] [place] [address] [place] Platelet mean volume (Bld) [Entitic vol] 12.7 fL Normal 9.0-12.7 [facility] Comment on above: Order Comment: Speci men Type: BLOOD SPECIMEN Ordering Facility: [facility] Address: [address] [place] [address] Performed By: #### 2 731-8 #### [facility] CLIA [id number] [address] [place] [address] [place] Platelets (Bld) [#/Vol] 97 10*3/uL Low 150-400 [facility] Comment on above: Order Comment: Speci men Type: BLOOD SPECIMEN Ordering Facility: [facility] Address: [address] [place] [address] Result Comment: No c lot detected. Performed By: #### 2 731-8 #### [facility] CLIA [id number] [address] [place] [address] [place] RBC (Bld) [#/Vol] 3.97 10*6/uL Low 4.20-6.00 [facility] Comment on above: Order Comment: Speci men Type: BLOOD SPECIMEN Ordering Facility: [facility] Address: [address] [place], [place] [address] Performed By: #### 2 731-8 #### [facility] CLIA [id number] [address] [place] [address] [place] WBC (Bld) [#/Vol] 4.49 10*3/uL Normal 3.70-11.00 [facility] Comment on above: Order Comment: Speci men Type: BLOOD SPECIMEN Ordering Facility: [facility] Address: [address] [place] [address] Performed By: #### 2 731-8 #### [facility] CLIA [id number] [address] [place] [address] [place] CNOVon 01-21-2025 CNOV Office Visit (PULMWS ) FEDERICO HU ([id number]) 1935 M Date Time Provider Department 01/21/25 11:00 AM VIET LEE PULMDRU During your visit today, we recorded the following information about you: Pulse Respiration Blood pressure Weight 52/minute 17/minute 130/66 152.9 kg Height 1.816 m Viet Lee MD 01/21/2025 1:26 PM Signed . [facility] Note Patient name: Federico Hu PCP: Nithin Acevedo MD CC: abnormal chest CT HPI: Federico Hu 89 year old male former 60 pack year smoker, quitting in 1974 with PMH significant for morbid obesity (BMI 46), AF, DM, HTN, CAD s/p CABG, diastolic heart failure, HELDER on CPAP, CKD stage 4 last seen in 2020 for evaluation of chronic cough. PFTs did not show obstruction, only restriction consistent with his obesity. Chest CT showed old granulomatous disease and infiltrate in RLL consistent with PNA. He was treated with antibiotics. Recommended follow up chest CT but insurance denied coverage. Repeat CXR did not show any infiltrate. Recent history notable for new onset hypercalcemia and monoclonal protein/MGUS. He had a chest CT to rule out lung cancer in light of hypercalcemia which was pertinent for bilateral ground glass and consolidative infiltrates left greater than right consistent with infection, alveolar hemorrhage, alveolar proteinosis or possibly amyloidosis. He is pending parathyroidectomy. He has chronic cough occasionally productive of clear to yellow mucus. No hemoptysis. No wheezing, significant SOB,or chest pain. No fevers, chills. Sinus congestion with post nasal drip. Cough more prominent in morning. DATA: PFT: Moderate restriction Labs: Component Ref Range AND Units 2 wk ago (01/04/25) Albumin 3.9 - 4.9 g/dL 3.8 Low Calcium, Total 8.5 - 10.2 mg/dL 13.4 High Phosphorus 2.7 - 4.8 mg/dL 3.5 Glucose 74 - 99 mg/dL 105 High BUN 9 - 24 mg/dL 49 High Creatinine 0.73 - 1.22 mg/dL 3.04 High Sodium 136 - 144 mmol/L 140 Potassium 3.7 - 5.1 mmol/L 4.1 Chloride 98 - 107 mmol/L 103 CO2 22 - 30 mmol/L 26 Anion Gap 8 - 15 mmol/L 11 Estimated Glomerular Filtration Rate >=60 mL/min/1.73m? 19 Low Component Ref Range AND Units 1 mo ago (12/13/24) WBC 3.70 - 11.00 k/uL 4.44 RBC 4.20 - 6.00 m/uL 4.34 Hemoglobin 13.0 - 17.0 g/dL 12.2 Low Hematocrit 39.0 - 51.0 % 39.4 MCV 80.0 - 100.0 fL 90.8 MCH 26.0 - 34.0 pg 28.1 MCHC 30.5 - 36.0 g/dL 31.0 RDW-CV 11.5 - 15.0 % 13.5 Platelet Count 150 - 400 k/uL 127 Low MPV 9.0 - 12.7 fL 12.0 Neutrophils % % 61.1 Abs Neut 1.45 - 7.50 k/uL 2.71 Lymphocytes % % 18.2 Abs Lymph 1.00 - 4.00 k/uL 0.81 Low Monocytes % % 14.4 Abs [place] <0.87 k/uL 0.64 Eosinophils % % 5.2 Abs Eosin <0.46 k/uL 0.23 Basophils % % 0.9 Abs Baso <0.11 k/uL 0.04 Immature Granulocytes % % 0.2 Abs Immature Gran <0.10 k/uL <0.03 NRBC /100 WBC 0.0 Absolute nRBC <0.01 k/uL <0.01 Diff Type Auto Component Ref Range AND Units 1 mo ago NT Pro BNP <450 pg/mL 3,155 High Imaging / Diagnostic Studies: DATE OF EXAM: Dec 30 2024 11:13AM [facility] 0541 - CT CHEST WO IVCON / IMPRESSION: New groundglass and consolidative opacities predominantly in bilateral lower lobes, left greater than right, which may reflect inflammatory/infectious process with differential including pulmonary hemorrhage. Other entities such as pulmonary amyloidosis and pulmonary alveolar proteinosis also possible in the appropriate clinical setting. Several cysts and bilateral ground glass and consolidative changes PAST MEDICAL HISTORY Diagnosis Date Anal fissure 06/19/2006 Atrial fibrillation (HCC) 05/13/2016 Benign localized hyperplasia of prostate with urinary obstruction and other lower urinary tract symptoms (LUTS)(600.21) 11/30/2009 CAROTID ART OCCL-NO INFARCT 01/31/2009 Carotid US 1-09: > 50% on the R, < 50% on the L Chronic diastolic CHF (congestive heart failure) ([facility]) 07/22/2018 CKD (chronic kidney disease) stage 4, GFR 15-29 ml/min ([facility]) 07/22/2018 CORONARY ATHEROSCLER UNSPEC VESSEL 01/03/2009 2 V CABG at age 71 ECG 2-09: RBBB per Manish ELEVATED PROSTATE SPECIFIC ANTIGEN 02/01/2009 PSA 4.2 in 3-09: repeat with free PSA and MARIO in follow up 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 Rothman for injections. HELDER on CPAP 09/19/2016 BiPAP 12-6 cm Nasal Primary osteoarthritis of left hip 11/02/2020 RBBB (right bundle branch block) 07/30/2016 S/P CABG x 2 07/30/2016 Skin mass 10/26/2010 Lipoma, left foreh (more content not included)... Normal [facility] CNPNon 01-10-2025 CNPN Telephone (BENEDICTO) FEDERICO HU ([id number]) 1935 M Date Time Provider Department 01/10/25 KRISTIN GUEVARA During your visit today, we recorded the following information about you: Christal Lau RN 01/10/2025 1:32 PM Signed Phoned and spoke to Mr. Hu. Dr. Guevara would like him to hydrate to help to lower his calcium levels. Pt states he drinks a lot of fluids but the fluid is Pepsi. I asked him to please add some water into his drinking. He will try.Christal Lau RN Allergies As of Date: 01/10/2025 Noted Allergy Reaction FEXOFENADINE 11/05/2024 16 - Unknown PROSCAR (FINASTERIDE) 07/02/2010 2 - Rash Date Reviewed: 01/04/2025 Reviewed by: America Tomlinson, RT(R) - Fully Assessed Prescriptions as of 01/10/2025 - doxazosin (CARDURA) 2 mg tablet Take 1 tablet by mouth daily at bedtime. - Blood-Glucose Meter,Continuous (DEXCOM G7 REGIONAL AGRONOMIST) [facility] Dx: E11.49. ?Insulin: Yes. Use to check blood sugars at least 4 times a day - Blood-Glucose Sensor (DEXCOM G7 SENSOR) [facility] Dx: E11.49. ?Insulin: Yes. Apply new sensor every ten (10) days - CPAP/BIPAP/OTHER Type .CPAPSettings into a note to see current settings/supplies/DME information. - clotrimazole (LOTRIMIN) 1 % cream Apply 1 application to affected area two times a day. - semaglutide (OZEMPIC) 1 mg/dose (4 mg/3 mL) pen Inject 1 mg subcutaneously one time a week. Per medication program. - blood sugar diagnostic (TRUE METRIX GLUCOSE TEST STRIP) test strip Test twice daily. Dx: E11.49. Insulin: Yes. - furosemide (LASIX) 40 mg tablet Take one(1) tablet daily in the morning. Take one(1) tablet in the evening, every other day. Per Cardiology. - triamcinolone acetonide (KENALOG) 0.1 % cream Apply 1 application to affected area two times a day. Apply sparingly to top of ears - apixaban (ELIQUIS) 2.5 mg tab(s) Take 1 tablet by mouth twice daily. Per Cardiology. - sacubitril-valsartan (ENTRESTO) 97-103 mg tablet Take 1 tablet by mouth two times a day. Per Cardiology. - insulin degludec (TRESIBA FLEXTOUCH U-200) 200 unit/mL (3 mL) injection Inject 64 Units subcutaneously every morning. Pt Assistance Medication. - insulin aspart U-100 (NOVOLOG FLEXPEN U-100 INSULIN) 100 unit/mL (3 mL) Inject 8 Units subcutaneously daily with dinner. Patient assistance. (will switch from Humalog sample to Novolog when supply arrives) - atorvastatin (LIPITOR) 40 mg tablet Take 40 mg by mouth once daily. - insulin needles, DISPOSABLE, 31 gauge x 5/16 ndle Test blood sugar twice a day DX:E11.49 - nitroglycerin sublingual (NITROQUICK) 0.4 mg SL tablet Dissolve 1 tablet under the tongue as needed for Chest Pain. If no pain relief call 911. - MULTIVITAMIN TAB Take one(1) tablet daily. 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* Essential hypertension [I10] Anal fissure [K60.2] 06/19/2006 10/09/2010 Shortness of breath [R06.02] 10/23/2006 10/09/2010 Unspecified pleural effusion [J90] 12/25/2006 10/09/2010 Coronary atherosclerosis [I25.10] 01/03/2009 Hyperlipemia [E78.5] 01/03/2009 Occlusion and stenosis of carotid artery withou*01/31/2009 01/26/2019 Unspecified Sleep Disturbance [G47.9] 01/31/2009 09/12/2015 Elevated prostate specific antigen (PSA) [R97.2*02/01/2009 01/19/2018 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] 11/30/2009 10/09/2010 BPH with obstruction/lower urinary tract sympto*08/08/2010 Skin mass [R22.9] 10/26/2010 05/13/2013 Anemia [D64.9] 05/12/2013 OA (osteoarthritis) of knee [M17.9] 09/23/2014 Atrial fibrillation (HCC) [I48.91] 05/13/2016 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] 07/30/2016 RBBB (right bundle branch block) [I45.10] 07/30/2016 Encounter for monitoring anti-arrhythmic therap*07/30/2016 COPD with exacerbation (HCC) [J44.1] 08/07/2016 06/01/2020 CKD (chronic kidney disease) stage 3, GFR 30-59*09/20/2017 12/15/2018 CKD (chronic kidney disease) stage 4, GFR 15-29*07/22/2018 Chronic diastolic CHF (congestive heart failure*07/22/2018 Chronic cough [R05.3] 06/01/2020 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] 11/02/2020 Hypercalcemia [E83.52] 11/23/2021 Wound of left leg [S81.802A] 06/12/2022 05/09/2023 Recurrent epistaxis [R04.0] 06/12/2022 05/09/2023 Candidal intertrigo [B37.2] 11/05/2024 HELDER on CPAP [G47.33] 09/19/2016 Encounter Status:Closed by CHRISTAL LAU on 01/10/25 [facility] 01-07-2025 MARCIA Telephone (ENSUMN) FEDERICO HU ([id number]) 1935 M Date Time Provider Department 01/07/25 KRISTIN GUEVARA During your visit today, we recorded the following information about you: Jazlyn Carmen 01/07/2025 9:08 AM Signed Sancho, patient is requesting a call back to discuss and set up a surgery date. Thank you. Allergies As of Date: 01/07/2025 Noted Allergy Reaction FEXOFENADINE 11/05/2024 16 - Unknown PROSCAR (FINASTERIDE) 07/02/2010 2 - Rash Date Reviewed: 01/04/2025 Reviewed by: America Tomlinson RT(R) - Fully Assessed Reason for Visit: Patient Update [1234] Prescriptions as of 01/07/2025 - doxazosin (CARDURA) 2 mg tablet Take 1 tablet by mouth daily at bedtime. - Blood-Glucose Meter,Continuous (DEXCOM G7 REGIONAL AGRONOMIST) [facility] Dx: E11.49. ?Insulin: Yes. Use to check blood sugars at least 4 times a day - Blood-Glucose Sensor (DEXCOM G7 SENSOR) [facility] Dx: E11.49. ?Insulin: Yes. Apply new sensor every ten (10) days - CPAP/BIPAP/OTHER Type .CPAPSettings into a note to see current settings/supplies/DME information. - clotrimazole (LOTRIMIN) 1 % cream Apply 1 application to affected area two times a day. - semaglutide (OZEMPIC) 1 mg/dose (4 mg/3 mL) pen Inject 1 mg subcutaneously one time a week. Per medication program. - blood sugar diagnostic (TRUE METRIX GLUCOSE TEST STRIP) test strip Test twice daily. Dx: E11.49. Insulin: Yes. - furosemide (LASIX) 40 mg tablet Take one(1) tablet daily in the morning. Take one(1) tablet in the evening, every other day. Per Cardiology. - triamcinolone acetonide (KENALOG) 0.1 % cream Apply 1 application to affected area two times a day. Apply sparingly to top of ears - apixaban (ELIQUIS) 2.5 mg tab(s) Take 1 tablet by mouth twice daily. Per Cardiology. - sacubitril-valsartan (ENTRESTO) 97-103 mg tablet Take 1 tablet by mouth two times a day. Per Cardiology. - insulin degludec (TRESIBA FLEXTOUCH U-200) 200 unit/mL (3 mL) injection Inject 64 Units subcutaneously every morning. Pt Assistance Medication. - insulin aspart U-100 (NOVOLOG FLEXPEN U-100 INSULIN) 100 unit/mL (3 mL) Inject 8 Units subcutaneously daily with dinner. Patient assistance. (will switch from Humalog sample to Novolog when supply arrives) - atorvastatin (LIPITOR) 40 mg tablet Take 40 mg by mouth once daily. - insulin needles, DISPOSABLE, 31 gauge x 04/01 ndle Test blood sugar twice a day DX:E11.49 - nitroglycerin sublingual (NITROQUICK) 0.4 mg SL tablet Dissolve 1 tablet under the tongue as needed for Chest Pain. If no pain relief call 911. - MULTIVITAMIN TAB Take one(1) tablet daily. 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* Essential hypertension [I10] Anal fissure [K60.2] 06/19/2006 10/09/2010 Shortness of breath [R06.02] 10/23/2006 10/09/2010 Unspecified pleural effusion [J90] 12/25/2006 10/09/2010 Coronary atherosclerosis [I25.10] 01/03/2009 Hyperlipemia [E78.5] 01/03/2009 Occlusion and stenosis of carotid artery withou*01/31/2009 01/26/2019 Unspecified Sleep Disturbance [G47.9] 01/31/2009 09/12/2015 Elevated prostate specific antigen (PSA) [R97.2*02/01/2009 01/19/2018 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] 11/30/2009 10/09/2010 BPH with obstruction/lower urinary tract sympto*08/08/2010 Skin mass [R22.9] 10/26/2010 05/13/2013 Anemia [D64.9] 05/12/2013 OA (osteoarthritis) of knee [M17.9] 09/23/2014 Atrial fibrillation (HCC) [I48.91] 05/13/2016 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] 07/30/2016 RBBB (right bundle branch block) [I45.10] 07/30/2016 Encounter for monitoring anti-arrhythmic therap*07/30/2016 COPD with exacerbation (HCC) [J44.1] 08/07/2016 06/01/2020 CKD (chronic kidney disease) stage 3, GFR 30-59*09/20/2017 12/15/2018 CKD (chronic kidney disease) stage 4, GFR 15-29*07/22/2018 Chronic diastolic CHF (congestive heart failure*07/22/2018 Chronic cough [R05.3] 06/01/2020 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] 11/02/2020 Hypercalcemia [E83.52] 11/23/2021 Wound of left leg [S81.802A] 06/12/2022 05/09/2023 Recurrent epistaxis [R04.0] 06/12/2022 05/09/2023 Candidal intertrigo [B37.2] 11/05/2024 HELDER on CPAP [G47.33] 09/19/2016 Encounter Status:Closed by JAZLYN CARMEN on 01/07/25 [facility] 01-05-2025 MARCIA Telephone (BENEDICTO) FEDERICO HU ([id number]) 1935 M Date Time Provider Department 01/05/25 KRISTIN GUEVARA During your visit today, we recorded the following information about you: Christal Lau, RN 01/05/2025 10:03 AM Signed Phoned pt and spoke with him. Dr Guevara reviewed the results of his nuclear medicine sestamibi scan and it was negative. Dr. Guevara would still like Mr. Hu to consider surgery. Pt will talk to his family and get back to us. Christal Lau RN Allergies As of Date: 01/05/2025 Noted Allergy Reaction FEXOFENADINE 11/05/2024 16 - Unknown PROSCAR (FINASTERIDE) 07/02/2010 2 - Rash Date Reviewed: 01/04/2025 Reviewed by: America Tomlinson, RT(R) - Fully Assessed Reason for Visit: Results [95] Prescriptions as of 01/05/2025 - doxazosin (CARDURA) 2 mg tablet Take 1 tablet by mouth daily at bedtime. - Blood-Glucose Meter,Continuous (DEXCOM G7 REGIONAL AGRONOMIST) misc Dx: E11.49. ?Insulin: Yes. Use to check blood sugars at least 4 times a day - Blood-Glucose Sensor (DEXCOM G7 SENSOR) [facility] Dx: E11.49. ?Insulin: Yes. Apply new sensor every ten (10) days - CPAP/BIPAP/OTHER Type .CPAPSettings into a note to see current settings/supplies/DME information. - clotrimazole (LOTRIMIN) 1 % cream Apply 1 application to affected area two times a day. - semaglutide (OZEMPIC) 1 mg/dose (4 mg/3 mL) pen Inject 1 mg subcutaneously one time a week. Per medication program. - blood sugar diagnostic (TRUE METRIX GLUCOSE TEST STRIP) test strip Test twice daily. Dx: E11.49. Insulin: Yes. - furosemide (LASIX) 40 mg tablet Take one(1) tablet daily in the morning. Take one(1) tablet in the evening, every other day. Per Cardiology. - triamcinolone acetonide (KENALOG) 0.1 % cream Apply 1 application to affected area two times a day. Apply sparingly to top of ears - apixaban (ELIQUIS) 2.5 mg tab(s) Take 1 tablet by mouth twice daily. Per Cardiology. - sacubitril-valsartan (ENTRESTO) 97-103 mg tablet Take 1 tablet by mouth two times a day. Per Cardiology. - insulin degludec (TRESIBA FLEXTOUCH U-200) 200 unit/mL (3 mL) injection Inject 64 Units subcutaneously every morning. Pt Assistance Medication. - insulin aspart U-100 (NOVOLOG FLEXPEN U-100 INSULIN) 100 unit/mL (3 mL) Inject 8 Units subcutaneously daily with dinner. Patient assistance. (will switch from Humalog sample to Novolog when supply arrives) - atorvastatin (LIPITOR) 40 mg tablet Take 40 mg by mouth once daily. - insulin needles, DISPOSABLE, 31 gauge x 04/01 ndle Test blood sugar twice a day DX:E11.49 - nitroglycerin sublingual (NITROQUICK) 0.4 mg SL tablet Dissolve 1 tablet under the tongue as needed for Chest Pain. If no pain relief call 911. - MULTIVITAMIN TAB Take one(1) tablet daily. 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* Essential hypertension [I10] Anal fissure [K60.2] 06/19/2006 10/09/2010 Shortness of breath [R06.02] 10/23/2006 10/09/2010 Unspecified pleural effusion [J90] 12/25/2006 10/09/2010 Coronary atherosclerosis [I25.10] 01/03/2009 Hyperlipemia [E78.5] 01/03/2009 Occlusion and stenosis of carotid artery withou*01/31/2009 01/26/2019 Unspecified Sleep Disturbance [G47.9] 01/31/2009 09/12/2015 Elevated prostate specific antigen (PSA) [R97.2*02/01/2009 01/19/2018 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] 11/30/2009 10/09/2010 BPH with obstruction/lower urinary tract sympto*08/08/2010 Skin mass [R22.9] 10/26/2010 05/13/2013 Anemia [D64.9] 05/12/2013 OA (osteoarthritis) of knee [M17.9] 09/23/2014 Atrial fibrillation (HCC) [I48.91] 05/13/2016 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] 07/30/2016 RBBB (right bundle branch block) [I45.10] 07/30/2016 Encounter for monitoring anti-arrhythmic therap*07/30/2016 COPD with exacerbation (HCC) [J44.1] 08/07/2016 06/01/2020 CKD (chronic kidney disease) stage 3, GFR 30-59*09/20/2017 12/15/2018 CKD (chronic kidney disease) stage 4, GFR 15-29*07/22/2018 Chronic diastolic CHF (congestive heart failure*07/22/2018 Chronic cough [R05.3] 06/01/2020 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] 11/02/2020 Hypercalcemia [E83.52] 11/23/2021 Wound of left leg [S81.802A] 06/12/2022 05/09/2023 Recurrent epistaxis [R04.0] 06/12/2022 05/09/2023 Candidal intertrigo [B37.2] 11/05/2024 HELDER on CPAP [G47.33] 09/19/2016 Encounter Status:Closed by CHRISTAL LAU on 01/05/25 Normal [facility] PARATHYROID W SPECT/CTon 01-04-2025 NM PARATHYROID W SPECT/CT * * *Final Report* * * DATE OF EXAM: Jan 04 2025 2:58PM [facility] 0089 - [place] PARATHYROID W SPECT/CT / PROCEDURE REASON: Hyperparathyroidism (HCC) * * * * Physician Interpretation * * * * EXAMINATION: PARATHYROID SCAN WITH SPECT-CT CLINICAL HISTORY: Hyperparathyroidism. TECHNIQUE: 320 microcuries of I-123 sodium iodide administered PO. 30.1 millicuries of Tc-99m sestamibi administered IV. SPECT imaging of the neck through chest was performed using dual-energy windows. Free breathing, low dose non-contrast CT of the same body region obtained for attenuation correction and anatomic localization. Note, this CT is not designed to produce or replace diagnostic CT quality and non-contrast imaging is limited for the evaluation of some pathology. * CT Dose-Length Product (DLP): 299 mGy*cm * CT Dose Reduction Employed: Yes CORRELATION: CT 12/30/2024, [id number] ultrasound 12/13/2024 RESULT: I-123 images: Homogeneous thyroid uptake. No focal abnormality. Sestamibi images: Focal area of post-subtraction sestamibi activity corresponding with a 0.7 cm soft tissue nodule posterior to the right mid thyroid (fused axial subtraction image 58). No other areas of abnormal post-subtraction sestamibi activity to suggest another site of abnormal parathyroid tissue. Localization CT: Redemonstrated left greater than right lower lobe consolidative opacities, likely infectious/inflammatory. Windows Administrator (topogram) images: No additional findings. IMPRESSION: Suspected hypervascular parathyroid lesion posterior to the right mid thyroid, as described. Rn Telemetry: QUYEN Transcribe Date/Time: Jan 04 2025 2:59P Dictated by : KAELA NG MD This examination was interpreted and the report reviewed and electronically signed by: ESPERANZA JOHNSON MD on Jan 04 2025 4:25PM EST [id number] Normal [facility] Renal function 2000 panelon 01-04-2025 Albumin [Mass/Vol] 3.8 g/dL Low 3.9-4.9 [facility] Comment on above: Order Comment: Alexia wilson Type: BLOOD SPECIMEN Ordering Facility: [facility] Address: [address] [place] [address] Performed By: #### 2 4321-2 #### [facility] CLIA [id number] [address] [place] [address] [place] Anion gap [Moles/Vol] 11 mmol/L Normal 8-15 [facility] Comment on above: Order Comment: Alexia wilson Type: BLOOD SPECIMEN Ordering Facility: [facility] Address: [address] [place] [address] Performed By: #### 2 4321-2 #### [facility] CLIA [id number] [address] [place] [address] [place] Calcium [Mass/Vol] 13.4 mg/dL High 8.5-10.2 [facility] Comment on above: Order Comment: Alexia wilson Type: BLOOD SPECIMEN Ordering Facility: [facility] Address: [address] [place] [address] Performed By: #### 2 4321-2 #### [facility] CLIA [id number] [address] [place] [address] [place] Chloride [Moles/Vol] 103 mmol/L Normal 98-107 [facility] Comment on above: Order Comment: Speci men Type: BLOOD SPECIMEN Ordering Facility: [facility] Address: [address] [place] [address] Performed By: #### 2 4321-2 #### [facility] CLIA [id number] [address] [place] [address] [place] CO2 [Moles/Vol] 26 mmol/L Normal 22-30 [facility] Comment on above: Order Comment: Speci men Type: BLOOD SPECIMEN Ordering Facility: [facility] Address: [address] [place] [address] Performed By: #### 2 4321-2 #### [facility] CLIA [id number] [address] [place] [address] [place] Creatinine [Mass/Vol] 3.04 mg/dL High 0.73-1.22 [facility] [facility] Comment on above: Order Comment: Speci men Type: BLOOD SPECIMEN Ordering Facility: [facility] Address: [address] [place] [address] Performed By: #### 2 4321-2 #### [facility] CLIA [id number] [address] [place] [address] OF [facility] Creatinine and Glomerular filtration rate.predicted panel (S/P/Bld) 19 mL/min/1.73m??? Low >=60 [facility] Comment on above: Order Comment: Speci men Type: BLOOD SPECIMEN Ordering Facility: [facility] Address: [address] [place] [address] Result Comment: Billie mated Glomerular Filtration Rate (eGFR) is calculated using the 2020 CKD-EPI creatinine equation. This equation utilizes serum creatinine, sex, and age as parameters. The creatinine assay has traceable calibration to isotope dilution-mass spectrometry. Refer to KDIGO guidelines for clinical interpretation. In patients with unstable renal function, e.g. those with acute kidney injury, the eGFR may not accurately reflect actual GFR. Performed By: #### 2 4321-2 #### [facility] CLIA [id number] [address] [place] [address] [place] Glucose [Mass/Vol] 105 mg/dL High 74-99 [facility] Comment on above: Order Comment: Alexia wilson Type: BLOOD SPECIMEN Ordering Facility: [facility] Address: [address] [place], [place] [id number] Result Comment: The [place] Diabetes Association (ADA) provides guidance for cutoff values for fasting glucose and random glucose. The ADA defines fasting as no caloric intake for at least 8 hours. Fasting plasma glucose results between 100 to 125 mg/dL indicate increased risk for diabetes (prediabetes). Fasting plasma glucose results greater than or equal to 126 mg/dL meet the criteria for diagnosis of diabetes. In the absence of unequivocal hyperglycemia, results should be confirmed by repeat testing. In a patient with classic symptoms of hyperglycemia or hyperglycemic crisis, random plasma glucose results greater than or equal to 200 mg/dL meet the criteria for diagnosis of diabetes. Reference: Standards of Medical Care in Diabetes 2016, [place] Diabetes Association. Diabetes Care. 2016.39(Suppl 1). Performed By: #### 2 4321-2 #### [facility] [id number] [address] [place] [address] [place] Phosphate [Mass/Vol] 3.5 mg/dL Normal 2.7-4.8 [facility] Comment on above: Order Comment: Alexia wilson Type: BLOOD SPECIMEN Ordering Facility: [facility] Address: [address] [place] [address] Performed By: #### 2 4321-2 #### [facility] CLIA [id number] [address] [place] [address] [place] Potassium [Moles/Vol] 4.1 mmol/L Normal 3.7-5.1 [facility] Comment on above: Order Comment: Alexia wilson Type: BLOOD SPECIMEN Ordering Facility: [facility] Address: [address] [place] [address] Performed By: #### 2 4321-2 #### [facility] CLIA [id number] [address] [place] [address] [place] Sodium [Moles/Vol] 140 mmol/L Normal 136-144 [facility] Comment on above: Order Comment: Speci men Type: BLOOD SPECIMEN Ordering Facility: [facility] Address: [address] [place], [place] [address] Performed By: #### 2 4321-2 #### [facility] [id number] [address] [place] [address] [place] Urea nitrogen [Mass/Vol] 49 mg/dL High 9-24 [facility] Comment on above: Order Comment: Speci men Type: BLOOD SPECIMEN Ordering Facility: [facility] Address: [address] [place], [place] [address] Performed By: #### 2 4321-2 #### [facility] [id number] [address] [place] [address] [place] SPECT+CT Parathyroid glandon 01-04-2025 IMPRESSION: Suspected hypervascular parathyroid lesion posterior to the right mid thyroid, as described. Rn Telemetry: PSCB Transcribe Date/Time: Jan 04 2025 2:59P Dictated by : KAELA NG MD This examination was interpreted and the report reviewed and electronically signed by: ESPERANZA JOHNSON MD on Jan 04 2025 4:25PM [facility] DIVISION OF RADIOLOGY * * *Final Report* * * DATE OF EXAM: Jan 04 2025 2:58PM N 0089 - NM PARATHYROID W SPECT/CT / PROCEDURE REASON: Hyperparathyroidism (HCC) * * * * Physician Interpretation * * * * EXAMINATION: PARATHYROID SCAN WITH SPECT-CT CLINICAL HISTORY: Hyperparathyroidism. TECHNIQUE: 320 microcuries of I-123 sodium iodide administered PO. 30.1 millicuries of Tc-99m sestamibi administered IV. SPECT imaging of the neck through chest was performed using dual-energy windows. Free breathing, low dose non-contrast CT of the same body region obtained for attenuation correction and anatomic localization. Note, this CT is not designed to produce or replace diagnostic CT quality and non-contrast imaging is limited for the evaluation of some pathology. * CT Dose-Length Product (DLP): 299 mGy*cm * CT Dose Reduction Employed: Yes CORRELATION: CT 12/30/2024, [id number]-[id number] ultrasound 12/13/2024 RESULT: I-123 images: Homogeneous thyroid uptake. No focal abnormality. Sestamibi images: Focal area of post-subtraction sestamibi activity corresponding with a 0.7 cm soft tissue nodule posterior to the right mid thyroid (fused axial subtraction image 58). No other areas of abnormal post-subtraction sestamibi activity to suggest another site of abnormal parathyroid tissue. Localization CT: Redemonstrated left greater than right lower lobe consolidative opacities, likely infectious/inflammatory. Windows Administrator (topogram) images: No additional findings. DIVISION OF RADIOLOGY Provider, [facility] - 01/04/2025 * * *Final Report* * * DATE OF EXAM: Jan 04 2025 2:58PM N 0089 - NM PARATHYROID W SPECT/CT / PROCEDURE REASON: Hyperparathyroidism (HCC) * * * * Physician Interpretation * * * * EXAMINATION: PARATHYROID SCAN WITH SPECT-CT CLINICAL HISTORY: Hyperparathyroidism. TECHNIQUE: 320 microcuries of I-123 sodium iodide administered PO. 30.1 millicuries of Tc-99m sestamibi administered IV. SPECT imaging of the neck through chest was performed using dual-energy windows. Free breathing, low dose non-contrast CT of the same body region obtained for attenuation correction and anatomic localization. Note, this CT is not designed to produce or replace diagnostic CT quality and non-contrast imaging is limited for the evaluation of some pathology. * CT Dose-Length Product (DLP): 299 mGy*cm * CT Dose Reduction Employed: Yes CORRELATION: CT 12/30/2024, fhfkb-uw-[id number] ultrasound 12/13/2024 RESULT: I-123 images: Homogeneous thyroid uptake. No focal abnormality. Sestamibi images: Focal area of post-subtraction sestamibi activity corresponding with a 0.7 cm soft tissue nodule posterior to the right mid thyroid (fused axial subtraction image 58). No other areas of abnormal post-subtraction sestamibi activity to suggest another site of abnormal parathyroid tissue. Localization CT: Redemonstrated left greater than right lower lobe consolidative opacities, likely infectious/inflammatory. Windows Administrator (topogram) images: No additional findings. IMPRESSION IMPRESSION: Suspected hypervascular parathyroid lesion posterior to the right mid thyroid, as described. Rn Telemetry: PSCB Transcribe Date/Time: Jan 04 2025 2:59P Dictated by : KAELA NG MD This examination was interpreted and the report reviewed and electronically signed by: ESPERANZA JOHNSON MD on Jan 04 2025 4:25PM EST [facility] Radiology Study observation (narrative) [facility] SPECT+CT Parathyroid glandOr dered By: Ccf Provider on 01-04-2025 [facility] Basic metabolic 2000 panelon 12-30-2024 Anion gap [Moles/Vol] 8 mmol/L Normal 8-15 [facility] Comment on above: Order Comment: Speci men Type: BLOOD SPECIMENOrdering Facility: [facility] Address: [address] [place] [address] Performed By: #### 2 4321-2 ####[facility] [id number] [place] [address] [place] Calcium [Mass/Vol] 13.9 mg/dL High 8.5-10.2 [facility] Comment on above: Order Comment: Speci men Type: BLOOD SPECIMENOrdering Facility: [facility] Address: [address] [place] [address] Performed By: #### 2 4321-2 ####[facility]ITAL[facility]CLIA [id number] [place] [address] [place] Chloride [Moles/Vol] 104 mmol/L Normal 98-107 [facility] Comment on above: Order Comment: Speci men Type: BLOOD SPECIMENOrdering Facility: [facility] Address: [address] [place] [address] Performed By: #### 2 4321-2 ####[facility] LEMUEL MILLWNCLIA [id number] [place] [address] [place] CO2 [Moles/Vol] 28 mmol/L Normal 22-30 [facility] Comment on above: Order Comment: Speci men Type: BLOOD SPECIMENOrdering Facility: [facility] Address: [address] [place] [address] Performed By: #### 2 4321-2 ####[facility] LIOMCGRATHAMANDA [id number] [place] [address] [place] Creatinine [Mass/Vol] 3.46 mg/dL High 0.73-1.22 [facility] Comment on above: Order Comment: Speci men Type: BLOOD SPECIMENOrdering Facility: [facility] Address: [address] [place] [address] Performed By: #### 2 4321-2 ####[facility] ERNCKatiana [id number] [place] [address] [place] Creatinine and Glomerular filtration rate.predicted panel (S/P/Bld) 16 mL/min/1.73m??? Low >=60 [facility] Comment on above: Order Comment: Speci men Type: BLOOD SPECIMENOrdering Facility: [facility] Address: [address] [place] [address] Result Comment: Billie mated Glomerular Filtration Rate (eGFR) is calculated using the 2020 CKD-EPI creatinine equation. This equation utilizes serum creatinine, sex, and age as parameters. The creatinine assay has traceable calibration to isotope dilution-mass spectrometry. Refer to KDIGO guidelines for clinical interpretation. In patients with unstable renal function, e.g. those with acute kidney injury, the eGFR may not accurately reflect actual GFR. Performed By: #### 2 4321-2 ####[facility] ERNCLIA [id number] [place] [address] [place] Glucose [Mass/Vol] 80 mg/dL Normal 74-99 [facility] Comment on above: Order Comment: Speci men Type: BLOOD SPECIMENOrdering Facility: [facility] Address: [address] [place] [address] Result Comment: The [place] Diabetes Association (ADA) provides guidance for cutoff values for fasting glucose and random glucose. The ADA defines fasting as no caloric intake for at least 8 hours. Fasting plasma glucose results between 100 to 125 mg/dL indicate increased risk for diabetes (prediabetes). Fasting plasma glucose results greater than or equal to 126 mg/dL meet the criteria for diagnosis of diabetes. In the absence of unequivocal hyperglycemia, results should be confirmed by repeat testing. In a patient with classic symptoms of hyperglycemia or hyperglycemic crisis, random plasma glucose results greater than or equal to 200 mg/dL meet the criteria for diagnosis of diabetes. Reference: Standards of Medical Care in Diabetes 2016, [place] Diabetes Association. Diabetes Care. 2016.39(Suppl 1). Performed By: #### 2 4321-2 ####[facility] MILLTOWNCLIA [id number] [place] [address] [place] Potassium [Moles/Vol] 3.9 mmol/L Normal 3.7-5.1 [facility] Comment on above: Order Comment: Speci men Type: BLOOD SPECIMENOrdering Facility: [facility] Address: [address] [place] [address] Performed By: #### 2 4321-2 ####[facility]ITALWTXLIA [id number] [place] [address] [place] Sodium [Moles/Vol] 140 mmol/L Normal 136-144 [facility] Comment on above: Order Comment: Speci men Type: BLOOD SPECIMENOrdering Facility: [facility] Address: [address] [place] [address] Performed By: #### 2 4321-2 ####[facility] MILLTOWNCLIA [id number] [place] [address] [place] Urea nitrogen [Mass/Vol] 56 mg/dL High 9-24 [facility] Comment on above: Order Comment: Speci men Type: BLOOD SPECIMENOrdering Facility: [facility] Address: [address] [place] [address] Performed By: #### 2 4321-2 ####[facility] MILLTOWNCLIA [id number] [place] [address] [place] CT CHEST WO IVCONon 12-30-[address] CHEST WO IVCON * * *Final Report* * * DATE OF EXAM: Dec 30 2024 11:13AM [facility] 0541 - CT CHEST WO IVCON / PROCEDURE REASON: multiple diagnoses * * * * Physician Interpretation * * * * EXAMINATION: CHEST CT WITHOUT CONTRAST CLINICAL HISTORY: 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 Shortness of breath Technique: Spiral CT acquisition of the chest from the thoracic inlet to the upper abdomen without contrast. MQ: CTCWO_6 CT Radiation dose: Integrated Dose-length product (DLP) for this visit = 656 mGy*cm CT Dose Reduction Employed: Automated exposure control(AEC) and iterative recon Comparison: Chest CT 05/09/2021. RESULT: Limitations: None. Lines, tubes, and devices: None. Lung parenchyma and airways: There are new groundglass and consolidative opacities in bilateral lower lobes, left greater than right, along with mild groundglass opacity in the lingula. Subtle interlobular septal thickening also noted. Calcified nodule in the left upper lobe. No new or enlarging suspicious lung nodule. Mild paraseptal emphysema. The central airways are patent. Pleural space: No pleural effusion. No pleural thickening. Lower neck, lymph nodes, and mediastinum: The imaged thyroid gland is stable noting mixed calcified and hypodense nodules in the right thyroid lobe which is asymmetrically enlarged. No lymphadenopathy in the supraclavicular, axillary, mediastinal, or hilar regions. Small hiatal hernia. Heart, pericardium, and thoracic vessels: Mild atherosclerotic calcifications of the thoracic aorta. The thoracic aorta and main pulmonary artery are normal in caliber. There is left atrial enlargement. Mitral annular calcifications present. Severe coronary artery atherosclerotic calcifications are noted status post CABG, although the study is not optimized for coronary assessment. No pericardial effusion or thickening. Bones and soft tissues: Status post median sternotomy. Stable small sclerotic focus at T10 vertebral body, likely a bone island. No destructive bone lesion. Bilateral gynecomastia. Upper abdomen: There is cholelithiasis. Splenic calcified granulomas. Stable 4.5 cm hypodensity in the spleen (5:212), likely a cyst. No acute abnormality in the imaged upper abdomen. Localizer images: No additional findings. IMPRESSION: New groundglass and consolidative opacities predominantly in bilateral lower lobes, left greater than right, which may reflect inflammatory/infectious process with differential including pulmonary hemorrhage. Other entities such as pulmonary amyloidosis and pulmonary alveolar proteinosis also possible in the appropriate clinical setting. Rn Telemetry: QUYEN Transcribe Date/Time: Dec 30 2024 11:28A Dictated by : SANGITA GARRIDO MD This examination was interpreted and the report reviewed and electronically signed by: SANGITA GARRIDO MD on Dec 30 2024 12:00PM EST [id number] Normal [facility] CT Chest WO contraston 12-30 IMPRESSION: New groundglass and consolidative opacities predominantly in bilateral lower lobes, left greater than right, which may reflect inflammatory/infectious process with differential including pulmonary hemorrhage. Other entities such as pulmonary amyloidosis and pulmonary alveolar proteinosis also possible in the appropriate clinical setting. Rn Telemetry: [facility] Transcribe Date/Time: Dec 30 2024 11:28A Dictated by : SANGITA GARRIDO MD This examination was interpreted and the report reviewed and electronically signed by: SANGITA GARRIDO MD on Dec 30 2024 12:00PM EST DIVISION OF RADIOLOGY * * *Final Report* * * DATE OF EXAM: Dec 30 2024 11:13AM [facility] 0541 - CT CHEST WO IVCON / PROCEDURE REASON: multiple diagnoses * * * * Physician Interpretation * * * * EXAMINATION: CHEST CT WITHOUT CONTRAST CLINICAL HISTORY: 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 Shortness of breath Technique: Spiral CT acquisition of the chest from the thoracic inlet to the upper abdomen without contrast. MQ: CTCWO_6 CT Radiation dose: Integrated Dose-length product (DLP) for this visit = 656 mGy*cm CT Dose Reduction Employed: Automated exposure control(AEC) and iterative recon Comparison: Chest CT 05/09/2021. RESULT: Limitations: None. Lines, tubes, and devices: None. Lung parenchyma and airways: There are new groundglass and consolidative opacities in bilateral lower lobes, left greater than right, along with mild groundglass opacity in the lingula. Subtle interlobular septal thickening also noted. Calcified nodule in the left upper lobe. No new or enlarging suspicious lung nodule. Mild paraseptal emphysema. The central airways are patent. Pleural space: No pleural effusion. No pleural thickening. Lower neck, lymph nodes, and mediastinum: The imaged thyroid gland is stable noting mixed calcified and hypodense nodules in the right thyroid lobe which is asymmetrically enlarged. No lymphadenopathy in the supraclavicular, axillary, mediastinal, or hilar regions. Small hiatal hernia. Heart, pericardium, and thoracic vessels: Mild atherosclerotic calcifications of the thoracic aorta. The thoracic aorta and main pulmonary artery are normal in caliber. There is left atrial enlargement. Mitral annular calcifications present. Severe coronary artery atherosclerotic calcifications are noted status post CABG, although the study is not optimized for coronary assessment. No pericardial effusion or thickening. Bones and soft tissues: Status post median sternotomy. Stable small sclerotic focus at T10 vertebral body, likely a bone island. No destructive bone lesion. Bilateral gynecomastia. Upper abdomen: There is cholelithiasis. Splenic calcified granulomas. Stable 4.5 cm hypodensity in the spleen (5:212), likely a cyst. No acute abnormality in the imaged upper abdomen. Localizer images: No additional findings. DIVISION OF RADIOLOGY Provider, [facility] - 12/30/2024 * * *Final Report* * * DATE OF EXAM: Dec 30 2024 11:13AM [facility] 0541 - CT CHEST WO IVCON / PROCEDURE REASON: multiple diagnoses * * * * Physician Interpretation * * * * EXAMINATION: CHEST CT WITHOUT CONTRAST CLINICAL HISTORY: 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 Shortness of breath Technique: Spiral CT acquisition of the chest from the thoracic inlet to the upper abdomen without contrast. MQ: CTCWO_6 CT Radiation dose: Integrated Dose-length product (DLP) for this visit = 656 mGy*cm CT Dose Reduction Employed: Automated exposure control(AEC) and iterative recon Comparison: Chest CT 05/09/2021. RESULT: Limitations: None. Lines, tubes, and devices: None. Lung parenchyma and airways: There are new groundglass and consolidative opacities in bilateral lower lobes, left greater than right, along with mild groundglass opacity in the lingula. Subtle interlobular septal thickening also noted. Calcified nodule in the left upper lobe. No new or enlarging suspicious lung nodule. Mild paraseptal emphysema. The central airways are patent. Pleural space: No pleural effusion. No pleural thickening. Lower neck, lymph nodes, and mediastinum: The imaged thyroid gland is stable noting mixed calcified and hypodense nodules in the right thyroid lobe which is asymmetrically enlarged. No lymphadenopathy in the supraclavicular, axillary, mediastinal, or hilar regions. Small hiatal hernia. Heart, pericardium, and thoracic vessels: Mild atherosclerotic calcifications of the thoracic aorta. The thoracic aorta and main pulmonary artery are normal in caliber. There is left atrial enlargement. Mitral annular calcifications present. Severe coronary artery atherosclerotic calcifications are noted status post CABG, although the study is not optimized for coronary assessment. No pericardial effusion or thickening. Bones and soft tissues: Status post median sternotomy. Stable small sclerotic focus at T10 vertebral body, likely a bone island. No destructive bone lesion. Bilateral gynecomastia. Upper abdomen: There is cholelithiasis. Splenic calcified granulomas. Stable 4.5 cm hypodensity in the spleen (5:212), likely a cyst. No acute abnormality in the imaged upper abdomen. Localizer images: No additional findings. IMPRESSION IMPRESSION: New groundglass and consolidative opacities predominantly in bilateral lower lobes, left greater than right, which may reflect inflammatory/infectious process with differential including pulmonary hemorrhage. Other entities such as pulmonary amyloidosis and pulmonary alveolar proteinosis also possible in the appropriate clinical setting. Rn Telemetry: QUYEN Transcribe Date/Time: Dec 30 2024 11:28A Dictated by : SANGITA GARRIDO MD This examination was interpreted and the report reviewed and electronically signed by: SANGITA GARRIDO MD on Dec 30 2024 12:00PM EST [facility] Radiology Study observation (narrative) [facility] CT Chest WO contrastOrdered By: Ccf Provider on 12-30-2024 [facility] MONOCLONAL PROT UR W/INTERPO rdered By: Aishwarya Bond on 12-15-2024 Result (UMPA) No M protein is identified. No M protein is identified. [facility] Staff Review (PA) Reviewed by Mauro gerber MD, Ph.D ([id number]) [facility] CBC W Auto Differential pane l (Bld)on 12-13-2024 Basophils (Bld) [#/Vol] 0.04 10*3/uL [facility] Basophils/100 WBC (Bld) 0.9 % [facility] Differential cell count method Nom (Bld) Auto [facility] Eosinophils (Bld) [#/Vol] 0.23 10*3/uL [facility] Eosinophils/100 WBC (Bld) 5.2 % [facility] Erythrocyte distribution width (RBC) [Ratio] 13.5 % 11.5 - 15.0 % [facility] Hematocrit (Bld) [Volume fraction] 39.4 % 39.0 - 51.0 % [facility] Hemoglobin (Bld) [Mass/Vol] 12.2 g/dL Low 13.0 - 17.0 g/dL [facility] Immature granulocytes (Bld) [#/Vol] [facility] Immature granulocytes/100 WBC (Bld) 0.2 % [facility] Interpretation and review of laboratory results Abnormal [facility] Lymphocytes (Bld) [#/Vol] 0.81 10*3/uL Low [facility] Lymphocytes/100 WBC (Bld) 18.2 % [facility] MCH (RBC) [Entitic mass] 28.1 pg 26.0 - 34.0 pg [facility] MCHC (RBC) [Mass/Vol] 31.0 g/dL 30.5 - 36.0 g/dL [facility] MCV (RBC) [Entitic vol] 90.8 fL 80.0 - 100.0 fL [facility] Monocytes (Bld) [#/Vol] 0.64 10*3/uL [facility] Monocytes/100 WBC (Bld) 14.4 % [facility] Neutrophils (Bld) [#/Vol] 2.71 10*3/uL [facility] Neutrophils/100 WBC (Bld) 61.1 % [facility] [facility] Nucleated RBC (Bld) [#/Vol] [facility] Nucleated RBC/100 WBC (Bld) [Ratio] 0.0 % /100 WBC [facility] Platelet mean volume (Bld) [Entitic vol] 12.0 fL 9.0 - 12.7 fL [facility] Platelets (Bld) [#/Vol] 127 10*3/uL Low [facility] RBC (Bld) [#/Vol] 4.34 10*6/uL 4.20 - 6.0 0 m/uL [facility] WBC (Bld) [#/Vol] 4.44 10*3/uL [facility] Basophils (Bld) [#/Vol] 0.04 10*3/uL Normal <0.11 [facility] Comment on above: Order Comment: Speci men Type: BLOOD SPECIMEN Ordering Facility: [facility] Address: [address] [place] [address] Performed By: #### 2 731-8 #### [facility] CLIA [id number] [address] [place] [address] [place] Basophils/100 WBC (Bld) 0.9 % Normal [facility] Comment on above: Order Comment: Speci men Type: BLOOD SPECIMEN Ordering Facility: [facility] Address: [address] [place] [address] Performed By: #### 2 731-8 #### [facility] CLIA [id number] [address] [place] [address] [place] Differential cell count method Nom (Bld) Auto Normal [facility] Comment on above: Order Comment: Speci men Type: BLOOD SPECIMEN Ordering Facility: [facility] Address: [address] [place] [address] Performed By: #### 2 731-8 #### [facility] CLIA [id number] [address] [place] [address] [place] Eosinophils (Bld) [#/Vol] 0.23 10*3/uL Normal <0.46 [facility] Comment on above: Order Comment: Speci men Type: BLOOD SPECIMEN Ordering Facility: [facility] Address: [address] [place] [address] Performed By: #### 2 731-8 #### [facility] CLIA [id number] [address] [place] [address] [place] Eosinophils/100 WBC (Bld) 5.2 % Normal [facility] Comment on above: Order Comment: Speci men Type: BLOOD SPECIMEN Ordering Facility: [facility] Address: [address] [place] [address] Performed By: #### 2 731-8 #### [facility] CLIA [id number] [address] [place] [address] [place] Erythrocyte distribution width (RBC) [Ratio] 13.5 % Normal 11.5-15.0 [facility] Comment on above: Order Comment: Speci men Type: BLOOD SPECIMEN Ordering Facility: [facility] Address: [address] [place] [address] Performed By: #### 2 731-8 #### [facility] CLIA [id number] [address] [place] [address] [place] Hematocrit (Bld) [Volume fraction] 39.4 % Normal 39.0-51.0 [facility] Comment on above: Order Comment: Speci men Type: BLOOD SPECIMEN Ordering Facility: [facility] Address: [address] [place] [address] Performed By: #### 2 731-8 #### [facility] CLIA [id number] [address] [place] [address] [place] Hemoglobin (Bld) [Mass/Vol] 12.2 g/dL Low 13.0-17.0 [facility] Comment on above: Order Comment: Speci men Type: BLOOD SPECIMEN Ordering Facility: [facility] Address: [address] [place] [address] Performed By: #### 2 731-8 #### [facility] CLIA [id number] [address] [place] [address] [place] Immature granulocytes (Bld) [#/Vol] 10*3/uL Normal <0.10 [facility] Comment on above: Order Comment: Speci men Type: BLOOD SPECIMEN Ordering Facility: [facility] Address: [address] [place] [address] Performed By: #### 2 731-8 #### [facility] CLIA [id number] [address] [place] [address] [place] Immature granulocytes/100 WBC (Bld) 0.2 % Normal [facility] Comment on above: Order Comment: Speci men Type: BLOOD SPECIMEN Ordering Facility: [facility] Address: [address] [place] [address] Performed By: #### 2 731-8 #### [facility] CLIA [id number] [address] [place] [address] [place] Lymphocytes (Bld) [#/Vol] 0.81 10*3/uL Low 1.00-4.00 [facility] Comment on above: Order Comment: Speci men Type: BLOOD SPECIMEN Ordering Facility: [facility] Address: [address] [place] [address] Performed By: #### 2 731-8 #### [facility] CLIA [id number] [address] [place] [address] [place] Lymphocytes/100 WBC (Bld) 18.2 % Normal [facility] Comment on above: Order Comment: Speci men Type: BLOOD SPECIMEN Ordering Facility: [facility] Address: [address] [place] [address] Performed By: #### 2 731-8 #### [facility] CLIA [id number] [address] [place] [address] [place] MCH (RBC) [Entitic mass] 28.1 pg Normal 26.0-34.0 [facility] Comment on above: Order Comment: Speci men Type: BLOOD SPECIMEN Ordering Facility: [facility] Address: [address] [place] [address] Performed By: #### 2 731-8 #### [facility] CLIA [id number] [address] [place] [address] [place] MCHC (RBC) [Mass/Vol] 31.0 g/dL Normal 30.5-36.0 [facility] Comment on above: Order Comment: Speci men Type: BLOOD SPECIMEN Ordering Facility: [facility] Address: [address] [place] [address] Performed By: #### 2 731-8 #### [facility] CLIA [id number] [address] [place] [address] [place] MCV (RBC) [Entitic vol] 90.8 fL Normal 80.0-100.0 [facility] Comment on above: Order Comment: Speci men Type: BLOOD SPECIMEN Ordering Facility: [facility] Address: [address] [place] [address] Performed By: #### 2 731-8 #### [facility] CLIA [id number] [address] [place] [address] [place] Monocytes (Bld) [#/Vol] 0.64 10*3/uL Normal <0.87 [facility] Comment on above: Order Comment: Speci men Type: BLOOD SPECIMEN Ordering Facility: [facility] Address: [address] [place] [address] Performed By: #### 2 731-8 #### [facility] CLIA [id number] [address] [place] [address] [place] Monocytes/100 WBC (Bld) 14.4 % Normal [facility] Comment on above: Order Comment: Speci men Type: BLOOD SPECIMEN Ordering Facility: [facility] Address: [address] [place] [address] Performed By: #### 2 731-8 #### [facility] CLIA [id number] [address] [place] [address] [place] Neutrophils (Bld) [#/Vol] 2.71 10*3/uL Normal 1.45-7.50 [facility] Comment on above: Order Comment: Speci men Type: BLOOD SPECIMEN Ordering Facility: [facility] Address: [address] [place] [address] Performed By: #### 2 731-8 #### [facility] CLIA [id number] [address] [place] [address] [place] Neutrophils/100 WBC (Bld) 61.1 % Normal [facility] Comment on above: Order Comment: Speci men Type: BLOOD SPECIMEN Ordering Facility: [facility] Address: [address] [place] [address] Performed By: #### 2 731-8 #### [facility] CLIA [id number] [address] [place] [address] [place] Nucleated RBC (Bld) [#/Vol] 10*3/uL Normal <0.01 [facility] Comment on above: Order Comment: Speci men Type: BLOOD SPECIMEN Ordering Facility: [facility] Address: [address] [place] [address] Performed By: #### 2 731-8 #### [facility] CLIA [id number] [address] [place] [address] [place] Nucleated RBC/100 WBC (Bld) [Ratio] 0.0 /100 WBC Normal [facility] Comment on above: Order Comment: Speci men Type: BLOOD SPECIMEN Ordering Facility: [facility] Address: [address] [place] [address] Performed By: #### 2 731-8 #### [facility] CLIA [id number] [address] [place] [address] [place] Platelet mean volume (Bld) [Entitic vol] 12.0 fL Normal 9.0-12.7 [facility] Comment on above: Order Comment: Speci men Type: BLOOD SPECIMEN Ordering Facility: [facility] Address: [address] [place] [address] Performed By: #### 2 731-8 #### [facility] CLIA [id number] [address] [place] [address] [place] Platelets (Bld) [#/Vol] 127 10*3/uL Low 150-400 [facility] Comment on above: Order Comment: Speci men Type: BLOOD SPECIMEN Ordering Facility: [facility] Address: [address] [place] [address] Performed By: #### 2 731-8 #### [facility] CLIA [id number] [address] [place] [address] [place] RBC (Bld) [#/Vol] 4.34 10*6/uL Normal 4.20-6.00 [facility] Comment on above: Order Comment: Speci men Type: BLOOD SPECIMEN Ordering Facility: [facility] Address: [address] [place] [address] Performed By: #### 2 731-8 #### [facility] CLIA [id number] [address] [place] [address] [place] WBC (Bld) [#/Vol] 4.44 10*3/uL Normal 3.70-11.00 [facility] Comment on above: Order Comment: Speci men Type: BLOOD SPECIMEN Ordering Facility: [facility] Address: [address] [place] [address] Performed By: #### 2 731-8 #### [facility] CLIA [id number] [address] [place] [address] [place] CNOVon 12-13-2024 CNOV Office Visit (BENEDICTO ) FEDERICO HU ([id number]) 1935 M Date Time Provider Department 12/13/24 1:00 PM KRISTIN GUEVARA During your visit today, we recorded the following information about you: Pulse Blood pressure Weight Height 61/minute 123/48 158.2 kg 1.78 m Teresa Pinon MA 12/13/2024 12:19 PM Signed Thank you for choosing the [facility] Department of Endocrinology, Diabetes and Metabolism. Did you know that you need to call 48 hours in advance of your scheduled visit, if you are unable to make your appointment? [facility] thanks you for your commitment, because patients not showing to their appointment results in a lost opportunity for patients to receive [facility] health care at the [facility]. To Cancel an appointment, please choose one of the following: - Call the Appointment Call Center at [phone] - From [employer], Go to Appointments - Cancel Appts If cancelling, consider your need to reschedule to prevent further delays in your care. To Schedule an appointment, please choose one of the following: - Call the Appointment Call Center at [phone] - From [employer], Go to Appointments - Request an Appt Kristin Guevara MD 12/19/2024 3:03 PM Signed [facility] Kristin Guevara M.D. [address] [place] [address] Name: Federico Hu Clinic Number: [id number] Date of Service: December 13, 2024 Federico Hu has been referred by Dr. Richter for evaluation of hyperparathyroidism. My assessment and recommendation for this patient will be communicated via shared medical records. Thank you for referring this patient to me. As you know, he is an 89 year old man who was found to have elevated calcium levels during a consult with his keno manager. Subsequently biochemical workup also revealed an elevated PTH level. The diagnosis of primary hyperparathyroidism was made, and he was referred here for further evaluation. His hypercalcemia has been present since 2017 but it was worsened recently. Mr. Hu has multiple medical issues including afib on Eliquis, CHF, CKD, HELDER and hyperlipidemia. His last surgical history was over five years ago when he had knee replacement done. He did well with the spinal anesthesia. His medication list was reviewed today and he has allergy to Proscar and fexofenadine. He is currently taking Lasix at 40 mg daily. In terms of family history, there is no history of thyroid of parathyroid disease. He has had no personal history of head and neck radiation. He is not a smoker but used to smoke when he was younger. And he is and retired. He lives at home by himself but needs help with cooking and cleaning. In terms of symptoms related to hyperparathyroidism, he reports the following symptoms: musculoskeletal pain. Additional review of system showed the following pertinent findings: fatigue-sometimes, weight problems-no, skin rash-no, shortness of breath-yes, chest pain-no, heartburn/reflux-yes, bleeding problems or easy bruising-no, headaches-no, anxiety-no and depression-sometimes. In reviewing his biochemical studies, Mr. Hu has had elevated serum calcium levels since 2014. His most recent biochemical studies from 11/05/2024 revealed a serum calcium of 12.4 (nl 8.5-10.2), corresponding PTH of 65 (nl <65), phosphorous of 3.9, ionized calcium of 1.55 (nl <1.30), 25-dihydroxyvitamin D level of 63.7 (nl 31-80) and 1,25-dihydroxyvitamin D level of 73.9 (nl19.9-79.3). 24-hour urinary calcium collection was ordered however not collected for this visit. No parathyroid scan or bone density scan were performed prior to this visit. On physical exam, Mr. Hu is alert and oriented obese man. He is in a wheelchair due to distance from [facility] to the clinic. He does not have glasses. There is no obvious skin rash or lesions. On inspection the skin over the anterior neck is smooth, no mass is visualized . Palpation revealed neck to be supple, thyroid gland is palpable and overall normal in size. He has limited neck hyper extension. No lymphadenopathy was palpated on either side of the neck. The heart is regular rate and rhythm and she breathes with ease at rest. There is no obvious extremity deformity. A neck US was performed in the procedure room today, however the patient had difficulties extending his neck and visualization was limited. This revealed the thyroid gland to be overall normal in size, with coarse echogenicity. There are multiple subcentimeter thyroid nodule(s) seen. There was no area seen on ultrasound to suggest an abnormal parathyroid gland. There are benign appearing lymph nodes seen in the lateral neck compartments bilaterally. Assessment/Plan: This is a 89 year old patient with (more content not included)... Normal [facility] CNOVSPon 12-13-2024 CNOVSP Visit (SP) Office (H [facility]) FEDERICO HU ([id number]) 1935 M Date Time Provider Department 12/13/24 2:00 PM HOMER CARPIO [facility] During your visit today, we recorded the following information about you: Temperature Pulse Respiration Blood pressure 97.5 degrees 80/minute 18/minute 109/58 Weight Height 158.2 kg 1.77 m Otoniel Hoyos LPN 12/22/2024 9:55 AM Signed Additional intake questions: Has the patient had fever, nausea, vomiting, diarrhea, constipation, fatigue for > 1 week? Yes, fatigue and Provider Notified Does the patient have a decreased appetite? No Does patient want to see a Culinary Intern? No (yes to any of above refer patient to schedulers for dietitian appointment) ) Does patient have any new or increased numbness or tingling of extremities? No Is patient interested in fertility information? NA Does patient need any prescription refills? No Does patient have an advanced directive in place? No Electronically Signed By: PHAM Car Beth, APRN.RAJWINDER, PhD 12/22/2024 9:55 AM Signed [facility] Federico Hu is a 89 year old male patient. Reason for visit: Consult, referred by Dr. Acevedo for possible mgus. My recommendations to the consult requesting physician are communicated via the shared electronic medical record or US mail. Baseline assessment on initial diagnosis date 11/2024 IMWG criteria, [place] Journal of Haematology 121: 749-57, 2003, update in: Yo et al. 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 M-Protein Concentration <=0.00 g/dL 0.00 0.00 SPE Staff Review Reviewed by Mauro Soria MD, Ph.D ([id number]) Reviewed by Mauro Soria MD, Ph.D ([id number]) Resulting Agency [facility] CCM Narrative Performed by: [facility] Serum electrophoresis test was performed using the [employer] Waterflow V8 NEXUS capillary electrophoresis method. Results obtained with different assay methods or kits cannot be used interchangeably. Specimen Collected: 12/13/24 3:21 PM EST Last Resulted: 12/15/24 8:40 AM EST [place] Free, Serum 3.3 - 19.4 mg/L 74.1 High 72.8 High CM Comment: Rarely, increased serum free light chains levels may not be detected or accurately quantified due to prozone phenomenon or in high viscosity samples using this immunoturbidimetric assay. Correlation with other laboratory results and clinical findings is recommended. The [place] Free Light Chain was performed using the Binding Site Optilite immunoturbidimetric method. Result obtained with different assay methods or kits cannot be used interchangeably. Lambda Free, Serum 5.7 - 26.3 mg/L 55.7 High 52.1 High CM Comment: Rarely, increased serum free light chains levels may not be detected or accurately quantified due to prozone phenomenon or in high viscosity samples using this immunoturbidimetric assay. Correlation with other laboratory results and clinical findings is recommended. The Lambda Free Light Chain was performed using the Binding Site Optilite immunoturbidimetric method. Result obtained with different assay methods or kits cannot be used interchangeably. K/L Ratio, Serum 0.26 - 1.65 1.33 1.40 Total immunoglobulins at diagnosis: Component Ref Range AND Units 7 d ago 3 mo ago IgG 700 - 1,600 mg/dL 757 707 IgA 70 - 400 mg/dL 159 154 IgM 40 - 230 mg/dL 125 114 Bone marrow plasma cell infiltration: not performed Systemic treatment and disease course History of present illness Mr. uH is a very pleasant 89 year old who presents today for evaluation of abnormal light chains, worsening CKD and persistent hypercalcemia w/ normal PTH. PMH of afib, HFpEF, CAD s/p CABG 2008, DM2, HTN, OA, HELDER on CPAP, HPL, Review of systems He specifically denies any fevers chills or night sweats. He has not noticed any increased shortness of breath on exertion from his baseline. He has been without new back or bone pain. He does not have any significant respiratory symptoms except for shortness of breath and a mild chronic cough. He is undergoing evaluation for hyperparathyroidism and associated hypercalcemia with endocrinology PAST MEDICAL HISTORY Diagnosis Date Anal fissure 06/19/2006 Atrial fibrillation (HCC) 05/13/2016 Benign localized hyperplasia of prostate with urinary obstruction and other lower urinary tract symptoms (LUTS)(600.21) 11/30/2009 CAROTID ART OCCL-NO INFARCT 01/31/2009 Carotid US 1-09: > 50% on the R, < 50% on the L Chronic diastolic CHF (congestive heart failure) ([facility]) 07/22/2018 CKD (chronic kidney disease) stage 4, GFR 15-29 ml/min ([facility]) 07/22/2018 CORONARY ATHEROSCLER UNSPEC VESSEL 01/03/2009 (more content not included)... Normal [facility] Comprehensive metabolic 2000 panelon 12-13-2024 Albumin [Mass/Vol] 3.9 g/dL 3.9 - 4.9 g/dL [facility] ALP [Catalytic activity/Vol] 84 U/L 38 - 113 U/L [facility] ALT [Catalytic activity/Vol] 13 U/L 10 - 54 U/L [facility] Anion gap [Moles/Vol] 9 mmol/L 8 - 15 mmol/L [facility] AST [Catalytic activity/Vol] 13 U/L Low 14 - 40 U/L [facility] Bilirubin [Mass/Vol] 0.7 mg/dL 0.2 - 1 .3 mg/dL [facility] Calcium [Mass/Vol] 12.2 mg/dL High 8.5 - 10. 2 mg/dL [facility] Chloride [Moles/Vol] 106 mmol/L 98 - 10 7 mmol/L [facility] CO2 [Moles/Vol] 30 mmol/L 22 - 30 mmol/L [facility] Creatinine [Mass/Vol] 3.21 mg/dL High 0.73 - 1.22 mg/dL [facility] GFR/1.73 sq M.predicted among non-blacks MDRD (S/P/Bld) [Vol rate/Area] 18 mL/min/{1.73_m2} Low - PINF [facility] Comment on above: Estimated Glomerular Filtration Rate (eGFR) is calculated using the 2020 CKD-EPI creatinine equation. This equation utilizes serum creatinine, sex, and age as parameters. The creatinine assay has traceable calibration to isotope dilution-mass spectrometry. Refer to KDIGO guidelines for clinical interpretation. In patients with unstable renal function, e.g. those with acute kidney injury, the eGFR may not accurately reflect actual GFR. Glucose [Mass/Vol] 77 mg/dL 74 - 99 mg/dL [facility] Comment on above: The [place] Diabete s Association (ADA) provides guidance for cutoff values for fasting glucose and random glucose. The ADA defines fasting as no caloric intake for at least 8 hours. Fasting plasma glucose results between 100 to 125 mg/dL indicate increased risk for diabetes (prediabetes). Fasting plasma glucose results greater than or equal to 126 mg/dL meet the criteria for diagnosis of diabetes. In the absence of unequivocal hyperglycemia, results should be confirmed by repeat testing. In a patient with classic symptoms of hyperglycemia or hyperglycemic crisis, random plasma glucose results greater than or equal to 200 mg/dL meet the criteria for diagnosis of diabetes. Reference: Standards of Medical Care in Diabetes 2016, [place] Diabetes Association. Diabetes Care. 2016.39(Suppl 1). Interpretation and review of laboratory results Abnormal [facility] Potassium [Moles/Vol] 4.3 mmol/L 3.7 - 5.1 mmol/L [facility] Protein [Mass/Vol] 6.4 g/dL 6.3 - 8.0 g/dL [facility] Sodium [Moles/Vol] 145 mmol/L High 136 - 144 mmol/L [facility] Urea nitrogen [Mass/Vol] 49 mg/dL High 9 - 24 mg/dL [facility] Albumin [Mass/Vol] 3.9 g/dL Normal 3.9-4.9 [facility] Comment on above: Order Comment: Speci men Type: BLOOD SPECIMEN Ordering Facility: [facility] Address: [facility] [place] [address] Performed By: #### 2 4321-2 #### [facility] CLIA [id number] [address] [place] [address] [place] ALP [Catalytic activity/Vol] 84 U/L Normal 38-113 [facility] Comment on above: Order Comment: Speci men Type: BLOOD SPECIMEN Ordering Facility: [facility] Address: [address] [place] [address] Performed By: #### 2 4321-2 #### [facility] CLIA [id number] [address] [place] [address] [place] ALT [Catalytic activity/Vol] 13 U/L Normal 10-54 [facility] Comment on above: Order Comment: Speci men Type: BLOOD SPECIMEN Ordering Facility: [facility] Address: [address] [place] [address] Performed By: #### 2 4321-2 #### [facility] CLIA [id number] [address] [place] [address] [place] Anion gap [Moles/Vol] 9 mmol/L Normal 8-15 [facility] Comment on above: Order Comment: Speci men Type: BLOOD SPECIMEN Ordering Facility: [facility] Address: [address] [place] [address] Performed By: #### 2 4321-2 #### [facility] CLIA [id number] [address] [place] [address] [place] AST [Catalytic activity/Vol] 13 U/L Low 14-40 [facility] Comment on above: Order Comment: Speci men Type: BLOOD SPECIMEN Ordering Facility: [facility] Address: [address] [place] [address] Performed By: #### 2 4321-2 #### [facility] CLIA [id number] [address] [place] [address] [place] Bilirubin [Mass/Vol] 0.7 mg/dL Normal 0.2-1.3 [facility] Comment on above: Order Comment: Speci men Type: BLOOD SPECIMEN Ordering Facility: [facility] Address: [address] [place] [address] Performed By: #### 2 4321-2 #### [facility] CL[facility] [id number] [address] [place] [address] [place] Calcium [Mass/Vol] 12.2 mg/dL High 8.5-10.2 [facility] Comment on above: Order Comment: Speci men Type: BLOOD SPECIMEN Ordering Facility: [facility] Address: [address] [place] [address] Performed By: #### 2 4321-2 #### [facility] CLIA [id number] [address] [place] [address] [place] Chloride [Moles/Vol] 106 mmol/L Normal 98-107 [facility] Comment on above: Order Comment: Speci men Type: BLOOD SPECIMEN Ordering Facility: [facility] Address: [address] [place] [address] Performed By: #### 2 4321-2 #### [facility] CLIA [id number] [address] [place] [address] [place] CO2 [Moles/Vol] 30 mmol/L Normal 22-30 [facility] Comment on above: Order Comment: Speci men Type: BLOOD SPECIMEN Ordering Facility: [facility] Address: [address] [place] [address] Performed By: #### 2 4321-2 #### [facility] CLIA [id number] [address] [place] [address] [place] Creatinine [Mass/Vol] 3.21 mg/dL High 0.73-1.22 [facility] Comment on above: Order Comment: Speci men Type: BLOOD SPECIMEN Ordering Facility: [facility] Address: [address] [place] [address] Performed By: #### 2 4321-2 #### [facility] CLIA [id number] [address] [place] [address] [place] Creatinine and Glomerular filtration rate.predicted panel (S/P/Bld) 18 mL/min/1.73m??? Low >=60 [facility] Comment on above: Order Comment: Alexia wilson Type: BLOOD SPECIMEN Ordering Facility: [facility] Address: [address] [place] [address] Result Comment: Billie mated Glomerular Filtration Rate (eGFR) is calculated using the 2020 CKD-EPI creatinine equation. This equation utilizes serum creatinine, sex, and age as parameters. The creatinine assay has traceable calibration to isotope dilution-mass spectrometry. Refer to KDIGO guidelines for clinical interpretation. In patients with unstable renal function, e.g. those with acute kidney injury, the eGFR may not accurately reflect actual GFR. Performed By: #### 2 4321-2 #### [facility] [id number] [address] [place] [address] [place] Glucose [Mass/Vol] 77 mg/dL Normal 74-99 [facility] Comment on above: Order Comment: Alexia wilson Type: BLOOD SPECIMEN Ordering Facility: [facility] Address: [address] [place] [address] Result Comment: The [place] Diabetes Association (ADA) provides guidance for cutoff values for fasting glucose and random glucose. The ADA defines fasting as no caloric intake for at least 8 hours. Fasting plasma glucose results between 100 to 125 mg/dL indicate increased risk for diabetes (prediabetes). Fasting plasma glucose results greater than or equal to 126 mg/dL meet the criteria for diagnosis of diabetes. In the absence of unequivocal hyperglycemia, results should be confirmed by repeat testing. In a patient with classic symptoms of hyperglycemia or hyperglycemic crisis, random plasma glucose results greater than or equal to 200 mg/dL meet the criteria for diagnosis of diabetes. Reference: Standards of Medical Care in Diabetes 2016, [place] Diabetes Association. Diabetes Care. 2016.39(Suppl 1). Performed By: #### 2 4321-2 #### [facility] [id number] [address] [place] [address] [place] Potassium [Moles/Vol] 4.3 mmol/L Normal 3.7-5.1 [facility] Comment on above: Order Comment: Alexia wilson Type: BLOOD SPECIMEN Ordering Facility: [facility] Address: [address] [place] [id number] Performed By: #### 2 4321-2 #### [facility] CLIA [id number] [address] [place] [address] [place] Protein [Mass/Vol] 6.4 g/dL Normal 6.3-8.0 [facility] Comment on above: Order Comment: Speci men Type: BLOOD SPECIMEN Ordering Facility: [facility] Address: [facility] [address] Performed By: #### 2 4321-2 #### [facility] CLIA [id number] [address] [place] [address] [place] Sodium [Moles/Vol] 145 mmol/L High 136-144 [facility] Comment on above: Order Comment: Speci men Type: BLOOD SPECIMEN Ordering Facility: [facility] Address: [facility] [place] [address] Performed By: #### 2 4321-2 #### [facility] CLIA [id number] [address] [place] [address] [place] Urea nitrogen [Mass/Vol] 49 mg/dL High 9-24 [facility] Comment on above: Order Comment: Speci men Type: BLOOD SPECIMEN Ordering Facility: [facility] Address: [facility] [place] [address] Performed By: #### 2 4321-2 #### [facility] CLIA [id number] [address] [place] [address] [place] HISTORY PHYSICALon HISTORY PHYSICAL HNO ID: [id number] Author: KRISTIN GUEVARA MD Service: ? Author Type: Physician Type: H&P Filed: 12/19/2024 15:03 Note Text: [facility] [place] [facility] Kristin Guevara M.D. [address] [place], [place] [address] Name: Federico Hu Clinic Number: [id number] Date of Service: December 13, 2024 Federico Hu has been referred by Dr. Richter for evaluation of hyperparathyroidism. My assessment and recommendation for this patient will be communicated via shared medical records. Thank you for referring this patient to me. As you know, he is an 89 year old man who was found to have elevated calcium levels during a consult with his keno manager. Subsequently biochemical workup also revealed an elevated PTH level. The diagnosis of primary hyperparathyroidism was made, and he was referred here for further evaluation. His hypercalcemia has been present since 2017 but it was worsened recently. Mr. Hu has multiple medical issues including afib on Eliquis, CHF, CKD, HELDER and hyperlipidemia. His last surgical history was over five years ago when he had knee replacement done. He did well with the spinal anesthesia. His medication list was reviewed today and he has allergy to Proscar and fexofenadine. He is currently taking Lasix at 40 mg daily. In terms of family history, there is no history of thyroid of parathyroid disease. He has had no personal history of head and neck radiation. He is not a smoker but used to smoke when he was younger. And he is and retired. He lives at home by himself but needs help with cooking and cleaning. In terms of symptoms related to hyperparathyroidism, he reports the following symptoms: musculoskeletal pain. Additional review of system showed the following pertinent findings: fatigue-sometimes, weight problems-no, skin rash-no, shortness of breath-yes, chest pain-no, heartburn/reflux-yes, bleeding problems or easy bruising-no, headaches-no, anxiety-no and depression-sometimes. In reviewing his biochemical studies, Mr. Hu has had elevated serum calcium levels since 2014. His most recent biochemical studies from 11/05/2024 revealed a serum calcium of 12.4 (nl 8.5-10.2), corresponding PTH of 65 (nl <65), phosphorous of 3.9, ionized calcium of 1.55 (nl <1.30), 25-dihydroxyvitamin D level of 63.7 (nl 31-80) and 1,25-dihydroxyvitamin D level of 73.9 (nl19.9-79.3). 24-hour urinary calcium collection was ordered however not collected for this visit. No parathyroid scan or bone density scan were performed prior to this visit. On physical exam, Mr. Hu is alert and oriented obese man. He is in a wheelchair due to distance from [facility] to the clinic. He does not have glasses. There is no obvious skin rash or lesions. On inspection the skin over the anterior neck is smooth, no mass is visualized . Palpation revealed neck to be supple, thyroid gland is palpable and overall normal in size. He has limited neck hyper extension. No lymphadenopathy was palpated on either side of the neck. The heart is regular rate and rhythm and she breathes with ease at rest. There is no obvious extremity deformity. A neck US was performed in the procedure room today, however the patient had difficulties extending his neck and visualization was limited. This revealed the thyroid gland to be overall normal in size, with coarse echogenicity. There are multiple subcentimeter thyroid nodule(s) seen. There was no area seen on ultrasound to suggest an abnormal parathyroid gland. There are benign appearing lymph nodes seen in the lateral neck compartments bilaterally. Assessment/Plan: This is a 89 year old patient with biochemical studies that show primary hyperparathyroidism. Even though he has clinical findings of musculoskeletal pain, constipation, as well as kidney disease and he could potentially benefit from surgery, Mr. Hu has multiple co morbidities (pulmonary and cardiac) which put him at a higher risk for perioperative complications, especially when undergoing general anesthesia. In addition, his procedure may be more complicated due to his limited neck range of motion. Therefore, I would like to order a spect/ct scan to identify the abnormal parathyroid gland in the hopes of planning for a more targeted surgery with the least amount of time under anesthesia. Should we decide to move forward with surgery, he will need to undergo rigorous pre-operative testing to clear him for surgery. All his questions have been answered today. And he will contact my office if there is any additional questions. I appreciate being involved in the care of your patient and please feel free to contact me should you have any questions or concerns. Kristin Guevara MD Normal [facility] IMMUNOFIXATION SCREEN, SERUM on 12-13-2024 INTERPRETATION (MPA) Normal [facility] Comment on above: Order Comment: Speci men Type: BLOOD SPECIMEN Ordering Facility: [facility] Address: [address] [place] [address] Result Comment: Atyp ical restricted bands are present in the IgG and lambda regions. Consistent with IgG lambda monoclonal gammopathy. Poorly defined region of restricted mobility in IgG and kappa lanes. Pattern is less well defined or fainter than typically seen in monoclonal gammopathy. This could represent either an atypical presentation of polyclonal immunoglobulins or the presence of a low level IgG kappa monoclonal gammopathy. If clinically indicated, urine monoclonal protein analysis and serum free light chain measurements are recommended to evaluate further for monoclonal gammopathy. Clinical correlation is necessary. Performed By: #### 2 731-8 #### [facility] CLIA [id number] [address] [place] [address] MPA RESULT M protein is present. Abnormal No M protein is identified. [facility] Comment on above: Order Comment: Alexia wilson Type: BLOOD SPECIMEN Ordering Facility: [facility] Address: [address] [place] [address] Performed By: #### 2 731-8 #### [facility] CLIA [id number] [address] [place] [address] STAFF REVIEW (MPA) Reviewed by Mauro gerber MD, Ph.D ([id number]) Normal [facility] Comment on above: Order Comment: Alexia wilson Type: BLOOD SPECIMEN Ordering Facility: [facility] Address: [address] [place] [address] Performed By: #### 2 731-8 #### [facility] CLIA [id number] [address] [place] [address] [place] IMMUNOGLOBULINS,IGG,IGA,IGMo n 12-13-2024 IgA [Mass/Vol] 159 mg/dL Normal 70-400 [facility] Comment on above: Order Comment: Alexia wilson Type: BLOOD SPECIMEN Ordering Facility: [facility] Address: [address] [place] [address] Performed By: #### S ERIMM #### [facility] CLIA [id number] [address] [place] [address] [place] IgG [Mass/Vol] 757 mg/dL Normal 700-1600 [facility] Comment on above: Order Comment: Speci men Type: BLOOD SPECIMEN Ordering Facility: [facility] Address: [address] [place] [address] Performed By: #### S ABEBAM #### [facility] CLIA [id number] [address] [place] [address] [place] IgM [Mass/Vol] 125 mg/dL Normal 40-230 [facility] Comment on above: Order Comment: Speci men Type: BLOOD SPECIMEN Ordering Facility: [facility] Address: [address] [place] [address] Performed By: #### S ERPIPERM #### [facility] CLIA [id number] [address] [place] [address] [place] KAPPA/ERAZO,FREE,SERon 2024 Immunoglobulin light chains.kappa.free (S) [Mass/Vol] 74.1 mg/L High 3.3-19.4 [facility] Comment on above: Order Comment: Speci men Type: BLOOD SPECIMEN Ordering Facility: [facility] Address: [address] [place] [address] Result Comment: Rare ly, increased serum free light chains levels may not be detected or accurately quantified due to prozone phenomenon or in high viscosity samples using this immunoturbidimetric assay. Correlation with other laboratory results and clinical findings is recommended. The [place] Free Light Chain was performed using the Binding Site Optilite immunoturbidimetric method. Result obtained with different assay methods or kits cannot be used interchangeably. Performed By: #### 2 4321-2 #### [facility] CLIA [id number] [address] [place] [address] [place] Immunoglobulin light chains.kappa/Immunogl obulin light chains.lambda (S) [Mass ratio] 1.33 Normal 0.26-1.65 [facility] Comment on above: Order Comment: Speci men Type: BLOOD SPECIMEN Ordering Facility: [facility] Address: [address] [place] [address] Performed By: #### 2 4321-2 #### [facility] CLIA [id number] [address] [place] [address] [place] Immunoglobulin light chains.lambda.free [Mass/Vol] 55.7 mg/L High 5.7-26.3 [facility] Comment on above: Order Comment: Speci men Type: BLOOD SPECIMEN Ordering Facility: [facility] Address: [address] [place] [address] Result Comment: Rare ly, increased serum free light chains levels may not be detected or accurately quantified due to prozone phenomenon or in high viscosity samples using this immunoturbidimetric assay. Correlation with other laboratory results and clinical findings is recommended. The Lambda Free Light Chain was performed using the Binding Site Optilite immunoturbidimetric method. Result obtained with different assay methods or kits cannot be used interchangeably. Performed By: #### 2 4321-2 #### [facility] CLIA [id number] [address] [place] [address] [place] MONOCLONAL PROT UR W/INTERPo n 12-13-2024 STAFF REVIEW (RUST) Reviewed by Mauro gerber MD, Ph.D ([id number]) Normal [facility] Comment on above: Order Comment: Speci men Type: BLOOD SPECIMEN Ordering Facility: [facility] Address: [address] [place] [address] Performed By: #### 2 731-8 #### [facility] CLIA [id number] [address] [place] [address] [place] UMPA RESULT No M protein is identified. Normal No M protein is identified. [facility] Comment on above: Order Comment: Speci men Type: BLOOD SPECIMEN Ordering Facility: [facility] Address: [address] [place] [address] Performed By: #### 2 731-8 #### [facility] CLIA [id number] [address] [place] [address] [place] NT PRO BNPon 12-13-2024 Natriuretic peptide.B prohormone N-Terminal [Mass/Vol] 3155 pg/mL High NINF - 450 pg/mL [facility] [place] NT-proBNP SerPl-mCncon 12-13 Natriuretic peptide.B prohormone N-Terminal [Mass/Vol] 3155 pg/mL High <450 [facility] Comment on above: Order Comment: Alexia wilson Type: BLOOD SPECIMENOrdering Facility: [facility] Address: [address] [place] [address] Performed By: #### 3 3762-6, 2885-2 ####[facility] [id number] [facility] [id number] [address] [place] Natriuretic peptide.B prohor carina N-Terminal [Mass/Vol]on 12-13-2024 Interpretation and review of laboratory results Abnormal [facility] PROTEIN / CREATININE RATIOon 12-13-2024 Protein/Creatinine (U) [Mass ratio] 0.23 mg/mg High NINF - 0.15 mg/mg [facility] [place] Comment on above: Adult Proteinuria Ca tegories: <0.15 mg/mg is considered normal to mildly increased 0.15 - 0.50 mg/mg is considered moderately increased >0.50 mg/mg is considered severely increased KDIGO. (2013). KDIGO 2012 Clinical Practice Guideline for the Evaluation and Management of Chronic Kidney Disease. Official Journal of the International Society of Nephrology, 3(1), 1-150. PROTEIN ELECTROPHORESIS SERU M (P)on 12-13-2024 Albumin [Mass/Vol] 3.66 g/dL Normal 3.43-5.41 [facility] Comment on above: Order Comment: Alexia wilson Type: BLOOD SPECIMEN Ordering Facility: [facility] Address: [address] [address] Performed By: #### 2 4321-2 #### [facility] CLIA [id number] [address] [place] [address] [place] Alpha 1 globulin Elph [Mass/Vol] 0.33 g/dL Normal 0.18-0.43 [facility] Comment on above: Order Comment: Speci men Type: BLOOD SPECIMEN Ordering Facility: [facility] Address: [address] [place], [place] [address] Performed By: #### 2 4321-2 #### [facility] CLIA [id number] [address] [place] [address] [place] Alpha 2 globulin Elph [Mass/Vol] 0.70 g/dL Normal 0.42-0.98 [facility] Comment on above: Order Comment: Speci men Type: BLOOD SPECIMEN Ordering Facility: [facility] Address: [address] [place], [place] [address] Performed By: #### 2 4321-2 #### [facility] CLIA [id number] [address] [place] [address] [place] Beta globulin Elph [Mass/Vol] 0.68 g/dL Normal 0.61-1.17 [facility] Comment on above: Order Comment: Speci men Type: BLOOD SPECIMEN Ordering Facility: [facility] Address: [address] [place], [place] [address] Performed By: #### 2 4321-2 #### [facility] CLIA [id number] [address] [place] [address] [place] Gamma globulin Elph [Mass/Vol] 0.62 g/dL Normal 0.53-1.51 [facility] Comment on above: Order Comment: Speci men Type: BLOOD SPECIMEN Ordering Facility: [facility] Address: [address] [place], [place] [address] Performed By: #### 2 4321-2 #### [facility] CLIA [id number] [address] [place] [address] [place] INTERPRETATION COMMENT FOR PROTEIN ELECTROPHORESIS The atypical region is relatively poorly defined and may represent an unusual presentation of polyclonal immunoglobulins, but cannot rule out the presence of a low level M protein. If clinically indicated, monoclonal protein analysis and serum free light chain analysis are suggested to evaluate further for monoclonal gammopathy. Normal [facility] Comment on above: Order Comment: Speci men Type: BLOOD SPECIMEN Ordering Facility: [facility] Address: [address] [place] [address] Performed By: #### 2 4321-2 #### [facility] CLIA [id number] [address] [place] [address] M-PROTEIN LOCATION Normal [facility] Comment on above: Order Comment: Speci men Type: BLOOD SPECIMEN Ordering Facility: [facility] Address: [address] [place] [address] Result Comment: Not Applicable. Performed By: #### 2 4321-2 #### [facility] [id number] [address] [place] [address] [place] Protein Fractions [Interp] An atypical region of restricted mobility is identified on protein electrophoresis. Abnormal No definitive M protein is identified on protein electrophor esis. [facility] Comment on above: Order Comment: Speci men Type: BLOOD SPECIMEN Ordering Facility: [facility] Address: [address] [place] [address] Performed By: #### 2 4321-2 #### [facility] [id number] [address] [place] [address] Protein.monoclonal Elph [Mass/Vol] 0.00 g/dL Normal <=0.00 [facility] Comment on above: Order Comment: Speci men Type: BLOOD SPECIMEN Ordering Facility: [facility] Address: [address] [place] [address] Performed By: #### 2 4321-2 #### [facility] [id number] [address] [place] [address] [place] SPE STAFF REVIEW Reviewed by Mauro gerber MD, Ph.D ([id number]) Normal [facility] Comment on above: Order Comment: Speci men Type: BLOOD SPECIMEN Ordering Facility: [facility] Address: [address] [place] [address] Performed By: #### 2 4321-2 #### [facility] CLIA [id number] [address] [place] [address] [place] Phosphate SerPl-mCncon 12-13 Phosphate [Mass/Vol] 3.4 mg/dL Normal 2.7-4.8 [facility] Comment on above: Order Comment: Speci men Type: BLOOD SPECIMEN Ordering Facility: [facility] Address: [address] [place] [address] Performed By: #### 2 4321-2 #### [facility] CLIA [id number] [address] [place] [address] [place] Prot SerPl-mCncon 12-13-2024 Protein [Mass/Vol] 6.0 g/dL Low 6.3-8.0 [facility] Comment on above: Order Comment: Speci men Type: BLOOD SPECIMENOrdering Facility: [facility] Address: [address] [place] [address] Performed By: #### 3 3762-6, 2885-2 ####[facility] [id number] [place] [address] [place] Prot Ur-mCncon 12-13-2024 Protein (U) [Mass/Vol] 14 mg/dL Normal 0-20 [facility] Comment on above: Order Comment: Speci men Type: URINE SPECIMEN Ordering Facility: [facility] Address: [address] [place] [address] Performed By: #### 2 888-6 #### [facility] CLIA [id number] [address] [place] [address] [place] Prot/Creat Uron 12-13-2024 Protein/Creatinine (U) [Mass ratio] 0.23 mg/mg High <0.15 [facility] Comment on above: Order Comment: Speci men Type: URINE SPECIMENOrdering Facility: [facility] Address: [address] [place] [address] Result Comment: Adul t Proteinuria Categories: <0.15 mg/mg is considered normal to mildly increased 0.15 - 0.50 mg/mg is considered moderately increased >0.50 mg/mg is considered severely increased KDIGO. (2013). KDIGO 2012 Clinical Practice Guideline for the Evaluation and Management of Chronic Kidney Disease. Official Journal of the International Society of Nephrology, 3(1), 1-150. Performed By: #### 2 890-2 ####[facility] [id number] [place] [address] [place] Protein/Creatinine (U) [Mass ratio]on 12-13-2024 Creatinine (U) [Mass/Vol] 61.4 mg/dL 20.0 - 300.0 mg/dL [facility] Interpretation and review of laboratory results Abnormal [facility] Protein (U) [Mass/Vol] 14 mg/dL 0 - 20 mg/dL [facility] Creatinine (U) [Mass/Vol] 61.4 mg/dL Normal 20.0-300.0 [facility] Comment on above: Order Comment: Speci men Type: URINE SPECIMENOrdering Facility: [facility] Address: [address] [place] [address] Performed By: #### 2 890-2 ####[facility] [id number] [place] [address] [place] Protein (U) [Mass/Vol] 14 mg/dL Normal 0-20 [facility] Comment on above: Order Comment: Speci men Type: URINE SPECIMENOrdering Facility: [facility] Address: [address] [place] [address] Performed By: #### 2 890-2 ####[facility] [id number] [place] [address] [place] URINE PROTEIN ELECTROPHORESI S RANDOM (P)on 12-13-2024 Albumin Elph (U) [Mass fraction] 46.89 % Normal [facility] Comment on above: Order Comment: Speci men Type: BLOOD SPECIMEN Ordering Facility: [facility] Address: [address] [id number] Performed By: #### 2 4321-2 #### [facility] CLIA [id number] [address] [place] [address] [place] Alpha 1 globulin Elph (U) [Mass fraction] 4.94 % Normal [facility] Comment on above: Order Comment: Speci men Type: BLOOD SPECIMEN Ordering Facility: [facility] Address: [address] [place] [address] Performed By: #### 2 4321-2 #### [facility] CLIA [id number] [address] [place] [address] [place] Alpha 2 globulin Elph (U) [Mass fraction] 12.35 % Normal [facility] Comment on above: Order Comment: Speci men Type: BLOOD SPECIMEN Ordering Facility: [facility] Address: [address] [place] [address] Performed By: #### 2 4321-2 #### [facility] CLIA [id number] [address] [place] [address] [place] Beta globulin Elph (U) [Mass fraction] 20.41 % Normal [facility] Comment on above: Order Comment: Speci men Type: BLOOD SPECIMEN Ordering Facility: [facility] Address: [address] [place] [address] Performed By: #### 2 4321-2 #### [facility] CLIA [id number] [address] [place] [address] [place] Gamma globulin Elph (U) [Mass fraction] 15.41 % Normal [facility] Comment on above: Order Comment: Speci men Type: BLOOD SPECIMEN Ordering Facility: [facility] Address: [address] [place] [address] Performed By: #### 2 4321-2 #### [facility] CLIA [id number] [address] [place] [address] [place] Protein Fractions Elph [place] (U) [Interp] No definitive M protein is identified on protein electrophoresis. Normal No definitive M protein is identified on protein electrophor esis. [facility] Comment on above: Order Comment: Speci katie Type: BLOOD SPECIMEN Ordering Facility: [facility] Address: [address] [place] [address] Performed By: #### 2 4321-2 #### [facility] CLIA [id number] [address] [place] [address] STAFF REVIEW (URINE ELECTRO) Reviewed by Mauro Soria MD, Ph.D ([id number]) Normal [facility] Comment on above: Order Comment: Speci men Type: BLOOD SPECIMEN Ordering Facility: [facility] Address: [address] [place] [address] Performed By: #### 2 4321-2 #### [facility] CLIA [id number] [address] [place] [address] CV ECHO COMPLETE W/CONTRAST PER PROTOCOLon 12-09-2024 CV ECHO COMPLETE W/CONTRAST PER PROTOCOL [place] [address] Patient: FEDERICO HU Phone#: : 1935 Age: 89 Gender: M Pt. Type: Out Account: [id number] Location: [facility] Ordering: HARMAN STRICKLAND Exam Date: 12/09/2024/12:48 Family Phys: NITHIN ACEVEDO Charge Code: 091997 Physician: [place] Order #: [id number] Dose#: PROCEDURE: ECHO COMPLETE WITH CONTRAST HISTORY: Patient is an 89-year-old male with heart failure INDICATIONS: Heart failure COMPARISON: None. TECHNIQUE: A 2-D ultrasound, color spectral Doppler and M-mode evaluation of the heart and great vessels. PATIENT MEASUREMENTS: Height (in.): BSA: Weight (lbs.): BP: Corporate Controller: M MODE 2D MEASUREMENTS AND CALCULATIONS: LVIDd: 4.81 cm LVIDs: 2.95 cm IVSd: 1.22 cm LVPWd: 1.06 cm LVOT diam: 1.99 cm FS: 38.70 % Ao Root diam: 3.21 cm LA diam: 4.7 cm LA Volume Index: LA A4 Area: 21.77 cm2 RA A4 Area: RVDd: 3.9 cm TAPSE: DOPPLER MEASUREMENTS AND CALCULATIONS MITRAL MV E MAX forrest: 1.13 m/s MV A MAX forrest: 0.29 m/s MV E-A ratio: 4.07 MVA VTI 1.11 cm2 MV V2 max: 1.37 m/s MV max P.57 mm[Hg] Continued Report - Page 2 of 3 Patient: FEDERICO HU Phone#: : 1935 Age: 89 Gender: M Pt. Type: Out Account: [id number] Location: [facility] Ordering: HARMAN STRICKLAND Exam Date: 12/09/2024/12:48 Family Phys: NITHIN ACEVEDO Charge Code: 559049 Physician: [place] Order #: [id number] Dose#: MV V2 mean: 0.75 m/s MV mean P.97 mm[Hg] MV V2 VTI: 32.68 cm MV PHT: 70.25 ms MVA PHT 3.13 cm2 Lat Peak E' Forrest 9 cm/sec Septal Peak E' FORREST 6 cm/sec E/E' lateral 13.3 E/E' medial 17.4 AORTIC Ao V2 max: 1.49 m/s Ao max P.98 mm[Hg] Ao V2 mean: 1.22 m/s Ao mean P.30 mm[Hg] Ao V2 VTI: 29.44 cm THUAN (V Max): 1.62 cm2 THUAN (VTI): 1.23 cm2 LV V1 Max 0.77 m/s LV V1 Max PG 2.44 mm[Hg] LV V1 Mean PG 1.34 mm[Hg] LV V1 mean 0.55 m/s LV V1 VTI 11.63 cm PULMONIC PA V2 Max 1.34 m/s PA Max PG 7.25 mm[Hg] TRICUSPID TR Max Forrest 2.63 m/s TR max PG 27.77 mm[Hg] RVSP 36 mm Hg 2D/M-MODE AND COLOR FLOW LEFT VENTRICLE: There is mild concentric left ventricular hypertrophy. Left ventricle is normal in size. Systolic ejection fraction is 60-65%. There are no regional wall motion abnormality seen. There is grade 3 diastolic dysfunction seen. WALL MOTION: 1 - Basal anterior: Normal. 7 - Mid anterior: Normal. 13 - Apical anterior: Normal. 2 - Basal anteroseptal: Normal. 8 - Mid anteroseptal: Normal. 14 - Apical septal: Normal. 3 - Basal inferoseptal: Normal. 9 - Mid inferoseptal: Normal. 15 - Apical inferior: Normal. 4 - Basal inferior: Normal. 10-Mid inferior: Normal. 16 - Apical lateral: Normal. 5 - Basal inferolateral: Normal. 11-Mid inferolateral: Normal. 6 - Basal anterolateral: Normal. 12-Mid anterolateral: Normal. Continued Report - Page 3 of 3 Patient: FEDERICO HU Phone#: : 1935 Age: 89 Gender: M Pt. Type: Out Account: [id number] Location: [facility] Ordering: HARMAN STRICKLAND Exam Date: 12/09/2024/12:48 Family Phys: NITHIN ACEVEDO Charge Code: 366645 Physician: [place] Order #: [id number] Dose#: RIGHT VENTRICLE: Right ventricle is mildly dilated with qualitatively normal systolic function. LEFT ATRIUM: Left atrium is probably mildly enlarged. RIGHT ATRIUM: Right atrium is inadequately visualized. ATRIAL SEPTUM: There is no large interatrial shunt seen. PFO was not assessed. MITRAL VALVE: There is mild bi leaflet prolapse seen. Leaflets appear mildly thickened. There is trivial regurgitation and no stenosis seen. TRICUSPID VALVE: Tricuspid valve appears normal in thickness. There is mild to moderate regurgitation and no stenosis seen. AORTIC VALVE: Aortic valve is trileaflet. Leaflets appear mildly restricted mobility. There is trivial regurgitation and mild stenosis seen. PULMONIC VALVE: Pulmonic valve appears normal structure. There is trivial regurgitation no stenosis seen. AORTIC ROOT: Aortic root is normal in size. AORTIC ARCH: Inadequately visualized DESC THORACIC AORTA: Inadequately visualized. IVC/SVC: IVC is mildly dilated with more than 50% collapse of inspiration. Estimated atrial pressure is 8 mm Hg PULMONARY VEINS: Inadequate Doppler. PERICARDIUM: There is no pericardial effusion seen CONCLUSION: 1. Study is technically difficult due to poor acoustic windows. Echo enhancing agent was utilized to assess for endocardial suarez. 2. There is mild concentric left ventricular hypertrophy. Systolic ejection fraction 60-65% with normal wall motion. 3. There is grade 3 diastolic dysfunction seen. 4. Left atrium is probably mildly enlarged. 5. There is mild bi leaflet prolapse seen. Leaflets appear mildly thickened. There is trivial regurgitation and no st (more content not included)... Normal [facility] FEDERICO HU ([id number]) 1935 M Date Time Provider Department 12/01/24 KRISTIN GUEVARA During your visit today, we recorded the following information about you: Jazlyn Carmen 12/01/2024 10:39 AM Signed 12/01/2024: INTAKE QUESTIONS - URINE ORDERED - PER PT REQUEST, MIBI HAS NOT BEEN ORDERED (PT STATED THAT HE WOULD LIKE TO MEET PROVIDER BEFORE ANY IMAGING ORDER IS PLACED) - BLOOD CURRENT ENDOCRINE SURGERY PATIENT WORKSHEET Initial Call Date: December 01, 2024 Reason for Consult/ Referral: Hyperparathyroid; Hypercalcemia PATIENT DEMOGRAPHICS Name: Federico Hu [facility]#: [id number] : 1935 AGE: [age] year old Contact Numbers: Home: (home) Work: There is no work phone number on file. PATIENT PHYSICIAN INFORMATION Referring Doctor: Dr. Velia Richter DO Address: Phone: Branch Or Department Chief Librarian: N/A Address: Phone: PCP: Nithin Acevedo [address] [place] [address] PAST TREATMENT Office notes: SEE EPIC Medications: ELIQUIS - ROUTED TO NURSE Pre-Visit Testing Latest Ref Rng 09/01/2024 11/05/2024 Albumin 3.9 - 4.9 g/dL 3.9 4.1 Calcium 8.5 - 10.2 mg/dL 11.6 (H) 12.4 (H) Phosphorus 2.7 - 4.8 mg/dL 3.4 3.9 Glucose 74 - 99 mg/dL 98 126 (H) BUN 9 - 24 mg/dL 62 (H) 60 (H) Creatinine 0.73 - 1.22 mg/dL 3.08 (H) 3.19 (H) Sodium 136 - 144 mmol/L 145 (H) 142 Potassium 3.7 - 5.1 mmol/L 4.8 4.2 Chloride 98 - 107 mmol/L 107 103 CO2 22 - 30 mmol/L 26 28 Anion Gap 8 - 15 mmol/L 12 11 eGFR >=60 mL/min/1.73m? 19 (L) 18 (L) Normalized Calcium 1.08 - 1.30 mmol/L 1.54 (H) Ionized Calcium 1.08 - 1.30 mmol/L 1.55 (H) PTH, Intact 15 - 65 pg/mL 79 (H) 65 Vit D1,25 Dihydroxy 19.9 - 79.3 pg/mL 43.9 Vitamin D 25 Hydroxy 31.0 - 80.0 ng/mL 63.7 Legend: (H) High (L) Low Imaging Reports: SEE EPIC CD of Images: SEE EPIC FNA: no FNA Slides: N/A Has the patient ever had thyroid or parathyroid surgery before: No Operative Reports: NONE AVAILABLE Pathology Reports: NONE AVAILABLE Allergies As of Date: 12/01/2024 Noted Allergy Reaction FEXOFENADINE 11/05/2024 16 - Unknown PROSCAR (FINASTERIDE) 07/02/2010 2 - Rash Date Reviewed: 11/26/2024 Reviewed by: Jacqueline Mir LPN - Fully Assessed Reason for Visit: Consult [173] Cmt: FACE SHEET Primary Visit Diagnosis:Hypercalcemia [E83.52] Order(s):CREATININE, 24 HOUR URINE [SQUCRD] Order #: [id number]. #:[id number] CALCIUM, 24 HR URINE [SQUCALCD] Order #: [id number]. #:[id number] Prescriptions as of 12/01/2024 - Blood-Glucose Meter,Continuous (DEXCOM G7 REGIONAL AGRONOMIST) misc Dx: E11.49. ?Insulin: Yes. Use to check blood sugars at least 4 times a day - Blood-Glucose Sensor ([email or web address] G7 SENSOR) laquita Dx: E11.49. ?Insulin: Yes. Apply new sensor every ten (10) days - CPAP/BIPAP/OTHER Type .CPAPSettings into a note to see current settings/supplies/DME information. - clotrimazole (LOTRIMIN) 1 % cream Apply 1 application to affected area two times a day. - doxazosin (CARDURA) 2 mg tablet Take 1 tablet by mouth daily at bedtime. - semaglutide (OZEMPIC) 1 mg/dose (4 mg/3 mL) pen Inject 1 mg subcutaneously one time a week. Per medication program. - blood sugar diagnostic (TRUE METRIX GLUCOSE TEST STRIP) test strip Test twice daily. Dx: E11.49. Insulin: Yes. - furosemide (LASIX) 40 mg tablet Take one(1) tablet daily in the morning. Take one(1) tablet in the evening, every other day. Per Cardiology. - triamcinolone acetonide (KENALOG) 0.1 % cream Apply 1 application to affected area two times a day. Apply sparingly to top of ears - apixaban (ELIQUIS) 2.5 mg tab(s) Take 1 tablet by mouth twice daily. Per Cardiology. - sacubitril-valsartan (ENTRESTO) 97-103 mg tablet Take 1 tablet by mouth two times a day. Per Cardiology. - insulin degludec (TRESIBA FLEXTOUCH U-200) 200 unit/mL (3 mL) injection Inject 64 Units subcutaneously every morning. Pt Assistance Medication. - insulin aspart U-100 (NOVOLOG FLEXPEN U-100 INSULIN) 100 unit/mL (3 mL) Inject 8 Units subcutaneously daily with dinner. Patient assistance. (will switch from Humalog sample to Novolog when supply arrives) - atorvastatin (LIPITOR) 40 mg tablet Take 40 mg by mouth once daily. - insulin needles, DISPOSABLE, 31 gauge x 5/16 ndle Test blood sugar twice a day DX:E11.49 - nitroglycerin sublingual (NITROQUICK) 0.4 mg SL tablet Dissolve 1 tablet under the tongue as needed for Chest Pain. If no pain relief call 911. - MULTIVITAMIN TAB Take one(1) tablet daily. 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 Normal [facility] CNOVon 11-26-2024 CNOV Office Visit (INTMWS ) FEDERICO HU ([id number]) 1935 Date Time Provider Department 11/26/24 4:20 PM NITHIN ACEVEDO INTMWS During your visit today, we recorded the following information about you: Pulse Blood pressure Weight Normal [facility] CNPNon 11-23-2024 CNPN Telephone (4CQ) FEDERICO HU ([id number]) 1935 M Date Time Provider Department 11/23/24 NITHIN ACEVEDO 4CQ During your visit today, we recorded the following information about you: Zeny Mead 11/23/2024 1:49 PM Signed Patient is calling requesting PCP order the dexcom system for him .Please advise the patient. Viet López MA 11/24/2024 8:38 AM Signed Called patient and advised with medicare continuous monitors and supplies have to go to [employer]. Normally use [employer] takes all medicare so patient aware will have to fax form and prescriptions than he will have to call to set account up. Patient will talk to and call back since he does like convince of going to local drug store. [facility]) Viet López MA 11/30/2024 3:21 PM Signed Spoke to patient who would like to try and get dexcom. Called to go over information and she is aware will fax oders to [facility] who will do PA if needed. Please print rx and will fax to D[facility]. CHASE Hameed Elizabeth, MA 12/01/2024 9:30 AM Signed Form completed and faxed with office note/rx CHASE Hameed Krystle, RN 12/06/2024 3:01 PM Signed Spouse calls to let provider's office know that [employer] did not receive Forms or OV notes for Dexcom. Spouse is asking that forms be re-faxed and notified once completed at [phone]. CEFERINO Rodriguez Helen E, LPN 12/06/2024 3:20 PM Signed TC to [facility], asking for form to be faxed to [phone]. Faxed. Daxa Morin LPN Allergies As of Date: 11/23/2024 Noted Allergy Reaction FEXOFENADINE 11/05/2024 16 - Unknown PROSCAR (FINASTERIDE) 07/02/2010 2 - Rash Date Reviewed: 11/05/2024 Reviewed by: Katherin Mckinnon, PARK WORKER SUPERVISOR.HERBICIDE SPRAYER - Fully Assessed Reason for Visit: Patient Question [1477] Order(s):Blood-Glucose Meter,Continuous (DEXCOM G7 REGIONAL AGRONOMIST) miscDx: E11.49. ?Insulin: Yes. Use to check blood sugars at least 4 times a dayDisp: 1 EachRfl: 0 Blood-Glucose Sensor (DEXCOM G7 SENSOR) deviDx: E11.49. ?Insulin: Yes. Apply new sensor every ten (10) daysDisp: 9 EachRfl: 3 Prescriptions as of 12/06/2024 - Blood-Glucose Meter,Continuous (DEXCOM G7 REGIONAL AGRONOMIST) misc Dx: E11.49. ?Insulin: Yes. Use to check blood sugars at least 4 times a day - Blood-Glucose Sensor (Oddsfutures.comCOM G7 SENSOR) laquita Dx: E11.49. ?Insulin: Yes. Apply new sensor every ten (10) days - CPAP/BIPAP/OTHER Type .CPAPSettings into a note to see current settings/supplies/DME information. - clotrimazole (LOTRIMIN) 1 % cream Apply 1 application to affected area two times a day. - doxazosin (CARDURA) 2 mg tablet Take 1 tablet by mouth daily at bedtime. - semaglutide (OZEMPIC) 1 mg/dose (4 mg/3 mL) pen Inject 1 mg subcutaneously one time a week. Per medication program. - blood sugar diagnostic (TRUE METRIX GLUCOSE TEST STRIP) test strip Test twice daily. Dx: E11.49. Insulin: Yes. - furosemide (LASIX) 40 mg tablet Take one(1) tablet daily in the morning. Take one(1) tablet in the evening, every other day. Per Cardiology. - triamcinolone acetonide (KENALOG) 0.1 % cream Apply 1 application to affected area two times a day. Apply sparingly to top of ears - apixaban (ELIQUIS) 2.5 mg tab(s) Take 1 tablet by mouth twice daily. Per Cardiology. - sacubitril-valsartan (ENTRESTO) 97-103 mg tablet Take 1 tablet by mouth two times a day. Per Cardiology. - insulin degludec (TRESIBA FLEXTOUCH U-200) 200 unit/mL (3 mL) injection Inject 64 Units subcutaneously every morning. Pt Assistance Medication. - insulin aspart U-100 (NOVOLOG FLEXPEN U-100 INSULIN) 100 unit/mL (3 mL) Inject 8 Units subcutaneously daily with dinner. Patient assistance. (will switch from Humalog sample to Novolog when supply arrives) - atorvastatin (LIPITOR) 40 mg tablet Take 40 mg by mouth once daily. - insulin needles, DISPOSABLE, 31 gauge x 5/16 ndle Test blood sugar twice a day DX:E11.49 - nitroglycerin sublingual (NITROQUICK) 0.4 mg SL tablet Dissolve 1 tablet under the tongue as needed for Chest Pain. If no pain relief call 911. - MULTIVITAMIN TAB Take one(1) tablet daily. 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 [facility] FEDER[facility] ([id number]) 1935 M Date Time Provider Department 11/23/24 NITHIN ACEVEDO INTMWS During your visit today, we recorded the following information about you: Bear Good RN 11/23/2024 1:42 PM Signed Pt reports his CPAP stopped working last night and he needs a new one. Asking pcp to send order to [facility] in [place]. Please advise patient. Geneva Valdez 11/25/2024 11:10 AM Signed Patient needs a new cpap Please contact [facility] ([facility]) Ph. [phone] Nithin Acevedo MD 11/25/2024 1:08 PM Signed Request form from [facility] with settings. Jacqueline Mir LPN 11/26/2024 10:28 AM Signed Spoke with [facility] and patient's settings were 12-6 cm H2O. Last sleep study was completed at [facility] in 2016. There has been no recent documentation of CPAP use. Patient will need an appointment so this can be discussed for insurance purposes. Patient notified and scheduled 11/26/24 at 1:20 pm. Daxa Morin LPN 11/27/2024 9:11 AM Signed Info faxed to [facility]. Daxa Morin LPN Allergies As of Date: 11/23/2024 Noted Allergy Reaction FEXOFENADINE 11/05/2024 16 - Unknown PROSCAR (FINASTERIDE) 07/02/2010 2 - Rash Date Reviewed: 11/05/2024 Reviewed by: Katherin Mckinnon APRN.HERBICIDE SPRAYER - Fully Assessed Reason for Visit: CPAP problem [Other] Prescriptions as of 11/27/2024 - CPAP/BIPAP/OTHER Type .CPAPSettings into a note to see current settings/supplies/DME information. - clotrimazole (LOTRIMIN) 1 % cream Apply 1 application to affected area two times a day. - doxazosin (CARDURA) 2 mg tablet Take 1 tablet by mouth daily at bedtime. - semaglutide (OZEMPIC) 1 mg/dose (4 mg/3 mL) pen Inject 1 mg subcutaneously one time a week. Per medication program. - blood sugar diagnostic (TRUE METRIX GLUCOSE TEST STRIP) test strip Test twice daily. Dx: E11.49. Insulin: Yes. - furosemide (LASIX) 40 mg tablet Take one(1) tablet daily in the morning. Take one(1) tablet in the evening, every other day. Per Cardiology. - triamcinolone acetonide (KENALOG) 0.1 % cream Apply 1 application to affected area two times a day. Apply sparingly to top of ears - apixaban (ELIQUIS) 2.5 mg tab(s) Take 1 tablet by mouth twice daily. Per Cardiology. - sacubitril-valsartan (ENTRESTO) 97-103 mg tablet Take 1 tablet by mouth two times a day. Per Cardiology. - insulin degludec (TRESIBA FLEXTOUCH U-200) 200 unit/mL (3 mL) injection Inject 64 Units subcutaneously every morning. Pt Assistance Medication. - insulin aspart U-100 (NOVOLOG FLEXPEN U-100 INSULIN) 100 unit/mL (3 mL) Inject 8 Units subcutaneously daily with dinner. Patient assistance. (will switch from Humalog sample to Novolog when supply arrives) - atorvastatin (LIPITOR) 40 mg tablet Take 40 mg by mouth once daily. - insulin needles, DISPOSABLE, 31 gauge x 04/01le Test blood sugar twice a day DX:E11.49 - nitroglycerin sublingual (NITROQUICK) 0.4 mg SL tablet Dissolve 1 tablet under the tongue as needed for Chest Pain. If no pain relief call 911. - MULTIVITAMIN TAB Take one(1) tablet daily. Problem List As Of Date 11/23/2024 Noted Resolved Morbid obesity with BMI of 45.0-49.9, adult (HC* Type 2 diabetes mellitus with neurological maricarmen* Essential hypertension [I10] Anal fissure [K60.2] 06/19/2006 10/09/2010 Shortness of breath [R06.02] 10/23/2006 10/09/2010 Unspecified pleural effusion [J90] 12/25/2006 10/09/2010 Coronary atherosclerosis [I25.10] 01/03/2009 Hyperlipemia [E78.5] 01/03/2009 Occlusion and stenosis of carotid artery withou*01/31/2009 01/26/2019 Unspecified Sleep Disturbance [G47.9] 01/31/2009 09/12/2015 Elevated prostate specific antigen (PSA) [R97.2*02/01/2009 01/19/2018 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] 11/30/2009 10/09/2010 BPH with obstruction/lower urinary tract sympto*08/08/2010 Skin mass [R22.9] 10/26/2010 05/13/2013 Anemia [D64.9] 05/12/2013 OA (osteoarthritis) of knee [M17.9] 09/23/2014 Atrial fibrillation (HCC) [I48.91] 05/13/2016 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] 07/30/2016 RBBB (right bundle branch block) [I45.10] 07/30/2016 Encounter for monitoring anti-arrhythmic therap*07/30/2016 COPD with exacerbation (HCC) [J44.1] 08/07/2016 06/01/2020 CKD (chronic kidney disease) stage 3, GFR 30-59*09/20/2017 12/15/2018 CKD (chronic kidney disease) stage 4, GFR 15-29*07/22/2018 Chronic diastolic CHF (congestive heart failure*07/22/2018 Chronic cough [R05.3] 06/01/2020 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 Comment on above: Performed By: #### 2 01771 #### [facility],[address] [place] [address] Anion gap [Moles/Vol] 15 mmol/L Normal 10 - 20 [facility] Comment on above: Performed By: #### 2 91144 #### [facility],[address] [place] [address] BMP with eGFR Normal [facility] Comment on above: Result Comment: BASI C METABOLIC PANEL Performed By: #### 2 43973 #### [facility],[address] [place] [address] Calcium [Mass/Vol] 12.2 mg/dL High 8.5 - 10.[address] [facility] Comment on above: Performed By: #### 2 20680 #### [facility],[address] [place] [address] Chloride [Moles/Vol] 107 mmol/L Normal 98 - [address] [facility] Comment on above: Performed By: #### 2 80757 #### [facility],[address] [place] [address] CO2 [Moles/Vol] 28.9 mmol/L Normal 21.0 - 32.[address] [facility] Comment on above: Performed By: #### 2 15326 #### [facility],[address] [place] [address] Creatinine [Mass/Vol] 3.87 mg/dL High 0.70 - 1.30 [facility] Comment on above: Performed By: #### 2 01933 #### [facility],[address] [place] [address]121 eGFR 15 ML/MINUTE Low 60 - [address] [facility] Comment on above: Performed By: #### 2 63025 #### [facility],[address] [place] [address]28 eGFR(AA) 18 ML/MINUTE Low 60 - [address] [facility] Comment on above: Result Comment: ACCO RDING TO THE NATIONAL KIDNEY DISEASE EDUCATION PROGRAM(NKDE), A NORMAL eGFR IS A VALUE GREATER THAN OR EQUAL TO 60 ML/MIN/1.73 SQ METERS. CHRONIC KIDNEY DISEASE: <60mL/MIN/1.73 SQ METERS KIDNEY FAILURE: <15mL/MIN/1.73 SQ METERS THIS TEST SHOULD ONLY BE USED FOR PATIENTS 18 YEARS OF AGE AND OLDER. Performed By: #### 2 74213 #### [facility],[address] [place] [address] Glucose [Mass/Vol] 123 mg/dL High 74 - [address] [facility] Comment on above: Performed By: #### 2 72976 #### [facility],[address] [place] [address] Potassium [Moles/Vol] 4.0 mmol/L Normal 3.5 - 5.1 [facility] Comment on above: Performed By: #### 2 76370 #### [facility],[address] [place] [address] Sodium [Moles/Vol] 147 mmol/L High 136 - [address] [facility] Comment on above: Performed By: #### 2 39661 #### [facility],[address] [place] [address] Urea nitrogen [Mass/Vol] 58 mg/dL High - [address] [facility] Comment on above: Performed By: #### 2 24287 #### [facility],[address] [place] [address] CBC + DIFFon 11-08-2024 Baso # 0.04 x10EE3/UL Normal 0.00 - 0.[address] [facility] Comment on above: Performed By: #### 2 10684 #### [facility],[address] [place], [place] [address] Basophils/100 WBC (Bld) 0.7 % Normal 0.0 - 2.[address] [facility] Comment on above: Performed By: #### 2 05015 #### [facility],[address] [place] [address] CBC + DIFF Normal [facility] Comment on above: Result Comment: CBC- COMPLETE BLOOD COUNT Performed By: #### 2 26587 #### [facility],[address] [place] [address] EO # 0.21 x10EE3/UL Normal 0.00 - 0.[address] [facility] Comment on above: Performed By: #### 2 97203 #### [facility],[address] [place], [place] [id number] Eosinophils/100 WBC (Bld) 3.5 % Normal 0.0 - 7.[address] [facility] Comment on above: Performed By: #### 2 41183 #### [facility],[address] [place] [address] Erythrocyte distribution width (RBC) [Ratio] 13.9 % Normal 12.0 - 15.[address] [facility] Comment on above: Performed By: #### 2 65338 #### [facility],[address] [place] [address] Hematocrit (Bld) [Volume fraction] 40.3 % Normal 40.0 - 52.[address] [facility] Comment on above: Performed By: #### 2 04585 #### [facility],[address] [place] [address] Hemoglobin (Bld) [Mass/Vol] 13.1 g/dL Normal 13.0 - 17.[address] [facility] Comment on above: Performed By: #### 2 74944 #### [facility],[address] [place] [address] Lymph # 1.07 x10EE3/UL Normal 0.80 - 2.[address] [facility] Comment on above: Performed By: #### 2 85705 #### [facility],[address] [place] [address] Lymphocytes/100 WBC (Bld) 17.3 % Low 20.0 - 45.[address] [facility] Comment on above: Performed By: #### 2 64901 #### [facility],[address] [place] [address] MANUAL DIFF N/A Normal [facility] Comment on above: Performed By: #### 2 59122 #### [facility],[address] [place] [address] MCH (RBC) [Entitic mass] 29 pg Normal 27 - [address] [facility] Comment on above: Performed By: #### 2 60142 #### [facility],[address] [place] [address] MCHC 33 X10 3 Normal 32 - [address] [facility] Comment on above: Performed By: #### 2 37630 #### [facility],[address] [place], [place] [id number] MCV (RBC) [Entitic vol] 88 fL Normal 81 - [address] [facility] Comment on above: Performed By: #### 2 84378 #### [facility],[address] [place] [address] [place] # 0.73 x10EE3/UL Normal 0.20 - 1.[address] [facility] Comment on above: Performed By: #### 2 52719 #### [place] [address] MONOS % 11.9 % High 0.0 - 10.[address] [facility] Comment on above: Performed By: #### 2 91423 #### [facility],[address] [place] [address] Morphology Mumtaz (Bld) [Interp] N/A Normal [facility] Comment on above: Performed By: #### 2 19737 #### [place] [address] Neut # 4.10 x10EE3/UL Normal 1.50 - 7.[address] [facility] Comment on above: Performed By: #### 2 58570 #### [place] [address] Neutrophils/100 WBC (Bld) 66.6 % Normal 46.0 - 76.[address] [facility] Comment on above: Performed By: #### 2 17128 #### [place] [address] PLATELET 141 x10EE3/UL Low 150 - [address] [facility] Comment on above: Performed By: #### 2 49917 #### [place] [address] Platelet mean volume (Bld) [Entitic vol] 10.0 fL Normal 6.4 - 10.[address] [facility] Comment on above: Result Comment: AUTO MATED DIFFERENTIAL Performed By: #### 2 68397 #### [place] [address] RBC 4.58 x 10EE6/UL Normal 4.50 - 6.[address] [facility] Comment on above: Performed By: #### 2 48475 #### [place] [id number] WBC 6.2 x 10EE3/UL Normal 4.5 - 10.[address] [facility] Comment on above: Performed By: #### 2 65955 #### [facility],[address] [place] [address] 16050 NT-proBNPon 11-08-2024 Natriuretic peptide B (Bld) [Mass/Vol] 2486 pg/mL High 0 - [address] [facility] Comment on above: Performed By: #### 2 32521 #### [facility],[address] [place] [address]846 CNOVon 11-05-2024 CNOV Office Visit (INTMWS ) FEDERICO HU ([id number]) 1935 M Date Time Provider Department 11/05/24 12:00 PM KATHERIN MCKINNON INTMWS During your visit today, we recorded the following information about you: Pulse Blood pressure Weight 69/minute 110/50 159.1 kg Katherin Mckinnon, PARK WORKER SUPERVISOR.HERBICIDE SPRAYER 11/05/2024 12:56 PM Signed Federico Hu is a 89 year old male here for a Medicare wellness visit. Medicare Health Risk Assessment General Health Fair Exercise: Minutes/Day 0 min Exercise: Days/Week 0 days Alcohol: Daily Use Never Alcohol: Drinks/Day Patient does not drink Alcohol: 6 or more drinks Never Feel off balance Yes Concerns: Teeth/Dentures No Concerns: Sexual function No Troubled by feelings None of the above Frequency: Eating healthy diet Several days ADLs requiring help None of the above Safety precautions in home/vehicle Yes Smoke, vape, chews tobacco No Difficulty hearing No Difficulty seeing No Current Providers Specialists: I have reviewed specialist-related care of the patient in the medical record. Current care team: Patient Care Team: Nithin Acevedo MD as PCP - Katherin Cabrera APRN.HERBICIDE SPRAYER as Road Tester (Internal Medicine) [facility] commutator operator-Dr. Strickland Risk Professional- Dr. Porras [facility] Medical/Family history review Reviewed and updated problem list, medical/surgical/family/soc ial history, medications, and allergies. Opioid use review Opioid Medications (last 90 days) No data to display Anxiety/Depression screening PHQ-2 Score: 0 (Lower risk for depression) THEE-2 Score: 0 (Lower risk for anxiety) Recommendation: no further intervention at this time Cognitive screening Mini Cog Score: 3 Cognitive screening reviewed and No further action needed (score 3-5). Functional Observation Was the patient's Timed Up AND Go test unsteady or >= 12 seconds? No Advance Care Planning Patient was not able to provide a surrogate decision maker or written advance directives Measurements BP 110/50 Pulse 69 Wt (!) 159.1 kg (350 lb 12 oz) SpO2 94% BMI 46.28 kg/m? Vision Screening: Follows with optometry/ophthalmology Assessment/Plan Medicare annual wellness visit, subsequent () - Counseled on healthy diet and regular exercise - Fall avoidance information provided - Personalized prevention plan provided - Discussed need for and benefit of weight loss. BMI 46.28 kg/(m2) Additional Concerns The following concerns were also discussed with the patient: Patient reports painful and itchy moist rash underneath his abdominal folds and groin area. He tries to keep it clean and dry as best as he can. Also using powder with no improvement. He is taking all of his medications as prescribed, denies side effects. Does not check his blood sugars or blood pressure at home. He is requesting a CGM for improved blood sugar monitoring. PHYSICAL EXAM BP 110/50 Pulse 69 Wt (!) 159.1 kg (350 lb 12 oz) SpO2 94% BMI 46.28 kg/m? GENERAL: well appearing, alert, in no acute distress CARDIOVASCULAR: regular rate and rhythm. No murmur, rubs or gallops. PULMONARY: clear to auscultation, no wheezing, rhonchi, or crackles ASSESSMENT/PLAN: 1. Medicare annual wellness visit, subsequent - ICD9: V70.0, ICD10: Z00.00 (primary diagnosis) See medicare wellness plan 2. Candidal intertrigo - ICD9: 112.3, ICD10: B37.2 Start treatment with clotrimazole cream, see orders. Skin care discussed. 3. Type 2 diabetes mellitus with neurological manifestations, controlled ([facility]) - ICD9: 250.60, ICD10: E11.49 - Control undetermined, due for labs - Continue current medications 4. Essential hypertension - ICD9: 401.9, ICD10: I10 - Controlled - Continue current medications - Recommend home blood pressure monitoring, to bring results to next visit - Encouraged sodium restriction, DASH or Mediterranean diet 5. CKD (chronic kidney disease) stage 4, GFR 15-29 ml/min ([facility]) - ICD9: 585.4, ICD10: N18.4 - eGFR: 18 Worsening - Counseled on avoiding NSAIDs, adequate hydration - Counseled on low sodium diet - Follow up with kidney medicine 6. Screening for depression - ICD9: V79.0, ICD10: Z13.31 - DEPRESSION SCREENING 7. Encounter for screening examination for other mental health and behavioral disorders - ICD9: V79.8, ICD10: Z13.39 - ANXIETY SCREENING Katherin Mckinnon APRN.Katherin Paiz APRN.RAJWINDER 11/05/2024 12:03 PM Addendum For chafing/rash in the groin area: over the counter Gold Nur Friction Defense (roller applicator), follow instructions on the package. I am also sending a prescription for an antifungal cream, use twice a day until the rash is gone and then for two more weeks after that. Let me know in two weeks if it is not any better. Screening schedule The following prevention plan is recommended: RSV Vaccine(1 - (more content not included)... Normal [facility] Calcium.ionized [Moles/Vol]o n 11-05-2024 Calcium.ionized (Bld) [Mass/Vol] 1.55 mmol/L High 1.08-1.30 [facility] Comment on above: Order Comment: Speci men Type: BLOOD SPECIMEN Ordering Facility: [facility] Address: [address] [place] [address] Performed By: #### 2 4321-2 #### [facility] [id number] [address] [place] [address] [place] Calcium.ionized adjusted to pH 7.4 (Bld) [Moles/Vol] 1.54 mmol/L High 1.08-1.30 [facility] Comment on above: Order Comment: Speci men Type: BLOOD SPECIMEN Ordering Facility: [facility] Address: [address] [place] [address] Performed By: #### 2 4321-2 #### [facility] CLIA [id number] [address] [place] [address] [place] PTH RELATED PEPTIDEon 2023 PTH RELATED PEPTIDE 6.3 pmol/L High 0.0-2.3 [facility] Comment on above: Order Comment: Speci men Type: BLOOD SPECIMEN Ordering Facility: [facility] Address: [address] [place] [address] Result Comment: INTE RPRETIVE INFORMATION: Parathyroid Hormone-Related Peptide This test was developed and its performance characteristics determined by [facility]. It has not been cleared or approved by the US Food and Drug Administration. This test was performed in a CLIA certified laboratory and is intended for clinical purposes. Performed By: [facility] [address] [place] [address] Devulcanizer Operator: Velia Montiel MD, PhD [place] Number: [id number] Performed By: #### 2 731-8 #### [facility] CLIA [id number] [address] [place] [address] [place] PTH-Intact SerPl-ncon 10-18 Parathyrin.intact [Mass/Vol] 65 pg/mL Normal 15-65 [facility] Comment on above: Order Comment: Speci men Type: BLOOD SPECIMEN Ordering Facility: [facility] Address: [address] [place] [address] Performed By: #### 2 731-8 #### [facility] CLIA [id number] [address] [place] [address] [place] Renal function 2000 panelon 11-05-2024 Albumin [Mass/Vol] 4.1 g/dL Normal 3.9-4.9 [facility] Comment on above: Order Comment: Speci men Type: BLOOD SPECIMEN Ordering Facility: [facility] Address: [address] [place] [address] Performed By: #### 2 4321-2 #### [facility] CLIA [id number] [address] [place] [address] [place] Anion gap [Moles/Vol] 11 mmol/L Normal 8-15 [facility] Comment on above: Order Comment: Speci men Type: BLOOD SPECIMEN Ordering Facility: [facility] Address: [address] [place] [address] Performed By: #### 2 4321-2 #### [facility] CLIA [id number] [address] [place] [address] [place] Calcium [Mass/Vol] 12.4 mg/dL High 8.5-10.2 [facility] Comment on above: Order Comment: Speci men Type: BLOOD SPECIMEN Ordering Facility: [facility] Address: [address] [place] [address] Performed By: #### 2 4321-2 #### [facility] CLIA [id number] [address] [place] [address] [place] Chloride [Moles/Vol] 103 mmol/L Normal 98-107 [facility] Comment on above: Order Comment: Speci men Type: BLOOD SPECIMEN Ordering Facility: [facility] Address: [address] [place] [address] Performed By: #### 2 4321-2 #### [facility] CLIA [id number] [address] [place] [address] [place] CO2 [Moles/Vol] 28 mmol/L Normal 22-30 [facility] Comment on above: Order Comment: Speci men Type: BLOOD SPECIMEN Ordering Facility: [facility] Address: [address] [place] [address] Performed By: #### 2 4321-2 #### [facility] CLIA [id number] [address] [place] [address] [place] Creatinine [Mass/Vol] 3.19 mg/dL High 0.73-1.22 [facility] Comment on above: Order Comment: Alexia wilson Type: BLOOD SPECIMEN Ordering Facility: [facility] Address: [address] [place] [address] Performed By: #### 2 4321-2 #### [facility] [id number] [address] [place] [address] [place] Creatinine and Glomerular filtration rate.predicted panel (S/P/Bld) 18 mL/min/1.73m??? Low >=60 [facility] Comment on above: Order Comment: Alexia wilson Type: BLOOD SPECIMEN Ordering Facility: [facility] Address: [address] [place] [address] Result Comment: Billie mated Glomerular Filtration Rate (eGFR) is calculated using the 2020 CKD-EPI creatinine equation. This equation utilizes serum creatinine, sex, and age as parameters. The creatinine assay has traceable calibration to isotope dilution-mass spectrometry. Refer to KDIGO guidelines for clinical interpretation. In patients with unstable renal function, e.g. those with acute kidney injury, the eGFR may not accurately reflect actual GFR. Performed By: #### 2 4321-2 #### [facility] [id number] [address] [place] [address] [place] Glucose [Mass/Vol] 126 mg/dL High 74-99 [facility] Comment on above: Order Comment: Alexia wilson Type: BLOOD SPECIMEN Ordering Facility: [facility] Address: [address] [place] [address] Result Comment: The [place] Diabetes Association (ADA) provides guidance for cutoff values for fasting glucose and random glucose. The ADA defines fasting as no caloric intake for at least 8 hours. Fasting plasma glucose results between 100 to 125 mg/dL indicate increased risk for diabetes (prediabetes). Fasting plasma glucose results greater than or equal to 126 mg/dL meet the criteria for diagnosis of diabetes. In the absence of unequivocal hyperglycemia, results should be confirmed by repeat testing. In a patient with classic symptoms of hyperglycemia or hyperglycemic crisis, random plasma glucose results greater than or equal to 200 mg/dL meet the criteria for diagnosis of diabetes. Reference: Standards of Medical Care in Diabetes 2016, [place] Diabetes Association. Diabetes Care. 2016.39(Suppl 1). Performed By: #### 2 4321-2 #### [facility] CLIA [id number] [address] [place] [address] [place] Phosphate [Mass/Vol] 3.9 mg/dL Normal 2.7-4.8 [facility] Comment on above: Order Comment: Alexia wilson Type: BLOOD SPECIMEN Ordering Facility: [facility] Address: [address] [place] [address] Performed By: #### 2 4321-2 #### [facility] [id number] [address] [place] [address] [place] Potassium [Moles/Vol] 4.2 mmol/L Normal 3.7-5.1 [facility] Comment on above: Order Comment: Alexia wilson Type: BLOOD SPECIMEN Ordering Facility: [facility] Address: [address] [place] [address] Performed By: #### 2 4321-2 #### [facility] [id number] [address] [place] [address] [place] Sodium [Moles/Vol] 142 mmol/L Normal 136-144 [facility] Comment on above: Order Comment: Morgani men Type: BLOOD SPECIMEN Ordering Facility: [facility] Address: [address] [place] [address] Performed By: #### 2 4321-2 #### [facility] [id number] [address] [place] [address] [place] Urea nitrogen [Mass/Vol] 60 mg/dL High 9-24 [facility] Comment on above: Order Comment: Speci men Type: BLOOD SPECIMEN Ordering Facility: [facility] Address: [address] [place] [id number] Performed By: #### 2 4321-2 #### [facility] [id number] [address] [place] [id number] [place] US KIDNEY/BLADDERon 11-05-20 US KIDNEY/BLADDER * * *Final Report* * * DATE OF EXAM: Nov 05 2024 10:32AM WRU [id number] - US KIDNEY/BLADDER / PROCEDURE REASON: multiple diagnoses * * * * Physician Interpretation * * * * EXAMINATION: RENAL ULTRASOUND CLINICAL HISTORY: 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) 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) 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 TECHNIQUE: Sonography of the kidneys and urinary bladder was performed. Images were obtained and stored in a permanent archive. MQ: [id number] COMPARISON: CT scan from 03/19/2017 RESULT: Right Kidney: -Renal length: 10.1 cm -Parenchyma: Normal echogenicity and thickness. -Collecting system: No hydronephrosis. -Calculus: None -Lesion: none Left Kidney: -Renal length: 10.2 cm -Parenchyma: Normal echogenicity and thickness. -Collecting system: No hydronephrosis. -Calculus: None -Lesion: none Bladder: Normal sonographic appearance. Urinary bladder volume = 327 cc. - IMPRESSION: Normal sonographic appearance of kidneys and bladder. [facility] Transcribe Date/Time: Nov 07 2024 7:29A Dictated by : MAITE RITTER MD This examination was interpreted and the report reviewed and electronically signed by: MAITE RITTER MD on Nov 07 2024 7:30AM EST [id number] Normal [facility] John 10-27-2024 MARCIA Telephone ([employer]) MELISSAFEDERICO BELTRAN ([id number]) 1935 M Date Time Provider Department 10/27/24 POPPY ELISE During your visit today, we recorded the following information about you: Poppy Elise, PIG CONVEYOR OPERATOR 10/27/2024 12:04 PM Signed Sw spoke with patient spouse about ozempic and tresiba through [employer]. Spouse asked Sw to mail [employer] application to her to work on for patient for this next year. Sw asked about any other medications and she notes not at this time. She notes will most likely need to complete new application for [employer] for next year, but will let this Sw know. Allergies As of Date: 10/27/2024 Noted Allergy Reaction PROSCAR (FINASTERIDE) 07/02/2010 2 - Rash Date Reviewed: 10/22/2024 Reviewed by: Christal Palomares APRN.HERBICIDE SPRAYER - Fully Assessed Reason for Visit: 2024 pt assistance application [Other] Prescriptions as of 10/27/2024 - doxazosin (CARDURA) 2 mg tablet Take 1 tablet by mouth daily at bedtime. - semaglutide (OZEMPIC) 1 mg/dose (4 mg/3 mL) pen Inject 1 mg subcutaneously one time a week. Per medication program. - blood sugar diagnostic (TRUE METRIX GLUCOSE TEST STRIP) test strip Test twice daily. Dx: E11.49. Insulin: Yes. - furosemide (LASIX) 40 mg tablet Take one(1) tablet daily in the morning. Take one(1) tablet in the evening, every other day. Per Cardiology. - triamcinolone acetonide (KENALOG) 0.1 % cream Apply 1 application to affected area two times a day. Apply sparingly to top of ears - apixaban (ELIQUIS) 2.5 mg tab(s) Take 1 tablet by mouth twice daily. Per Cardiology. - sacubitril-valsartan (ENTRESTO) 97-103 mg tablet Take 1 tablet by mouth two times a day. Per Cardiology. - insulin degludec (TRESIBA FLEXTOUCH U-200) 200 unit/mL (3 mL) injection Inject 64 Units subcutaneously every morning. Pt Assistance Medication. - insulin aspart U-100 (NOVOLOG FLEXPEN U-100 INSULIN) 100 unit/mL (3 mL) Inject 8 Units subcutaneously daily with dinner. Patient assistance. (will switch from Humalog sample to Novolog when supply arrives) - atorvastatin (LIPITOR) 40 mg tablet Take 40 mg by mouth once daily. - insulin needles, DISPOSABLE, 31 gauge x 04/01le Test blood sugar twice a day DX:E11.49 - nitroglycerin sublingual (NITROQUICK) 0.4 mg SL tablet Dissolve 1 tablet under the tongue as needed for Chest Pain. If no pain relief call 911. - MULTIVITAMIN TAB Take one(1) tablet daily. 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* Essential hypertension [I10] Anal fissure [K60.2] 06/19/2006 10/09/2010 Shortness of breath [R06.02] 10/23/2006 10/09/2010 Unspecified pleural effusion [J90] 12/25/2006 10/09/2010 Coronary atherosclerosis [I25.10] 01/03/2009 Hyperlipemia [E78.5] 01/03/2009 Occlusion and stenosis of carotid artery withou*01/31/2009 01/26/2019 Unspecified Sleep Disturbance [G47.9] 01/31/2009 09/12/2015 Elevated prostate specific antigen (PSA) [R97.2*02/01/2009 01/19/2018 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] 11/30/2009 10/09/2010 BPH with obstruction/lower urinary tract sympto*08/08/2010 Skin mass [R22.9] 10/26/2010 05/13/2013 Anemia [D64.9] 05/12/2013 OA (osteoarthritis) of knee [M17.9] 09/23/2014 Atrial fibrillation (HCC) [I48.91] 05/13/2016 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] 07/30/2016 RBBB (right bundle branch block) [I45.10] 07/30/2016 Encounter for monitoring anti-arrhythmic therap*07/30/2016 COPD with exacerbation (HCC) [J44.1] 08/07/2016 06/01/2020 CKD (chronic kidney disease) stage 3, GFR 30-59*09/20/2017 12/15/2018 CKD (chronic kidney disease) stage 4, GFR 15-29*07/22/2018 Chronic diastolic CHF (congestive heart failure*07/22/2018 Chronic cough [R05.3] 06/01/2020 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 Guevara, no answer. Left vm with office number to call to get scheduled; referred by Dr. Velia Richter, Jazlyn Gomez 09/30/2024 3:12 PM Signed 2nd attempt in scheduling patient; no answer. Left voicemail with office number to call. Jazlyn Carmen 10/05/2024 3:29 PM Signed Spoke with pt in regards to scheduling appt; was unavailable to schedule at this time. Gave office number to call (asked for a call back next week if we didn't hear from him). Allergies As of Date: 09/27/2024 Noted Allergy Reaction PROSCAR (FINASTERIDE) 07/02/2010 2 - Rash Date Reviewed: 09/01/2024 Reviewed by: Michelle Espinal MA - Fully Assessed Reason for Visit: Appointment [186] Cmt: Consult Prescriptions as of 10/05/2024 - doxazosin (CARDURA) 2 mg tablet Take 1 tablet by mouth daily at bedtime. - semaglutide (OZEMPIC) 1 mg/dose (4 mg/3 mL) pen Inject 1 mg subcutaneously one time a week. Per medication program. - blood sugar diagnostic (TRUE METRIX GLUCOSE TEST STRIP) test strip Test twice daily. Dx: E11.49. Insulin: Yes. - furosemide (LASIX) 40 mg tablet Take one(1) tablet daily in the morning. Take one(1) tablet in the evening, every other day. Per Cardiology. - triamcinolone acetonide (KENALOG) 0.1 % cream Apply 1 application to affected area two times a day. Apply sparingly to top of ears - apixaban (ELIQUIS) 2.5 mg tab(s) Take 1 tablet by mouth twice daily. Per Cardiology. - sacubitril-valsartan (ENTRESTO) 97-103 mg tablet Take 1 tablet by mouth two times a day. Per Cardiology. - insulin degludec (TRESIBA FLEXTOUCH U-200) 200 unit/mL (3 mL) injection Inject 64 Units subcutaneously every morning. Pt Assistance Medication. - insulin aspart U-100 (NOVOLOG FLEXPEN U-100 INSULIN) 100 unit/mL (3 mL) Inject 8 Units subcutaneously daily with dinner. Patient assistance. (will switch from Humalog sample to Novolog when supply arrives) - atorvastatin (LIPITOR) 40 mg tablet Take 40 mg by mouth once daily. - insulin needles, DISPOSABLE, 31 gauge x 04/01 ndle Test blood sugar twice a day DX:E11.49 - nitroglycerin sublingual (NITROQUICK) 0.4 mg SL tablet Dissolve 1 tablet under the tongue as needed for Chest Pain. If no pain relief call 911. - MULTIVITAMIN TAB Take one(1) tablet daily. 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* Essential hypertension [I10] Anal fissure [K60.2] 06/19/2006 10/09/2010 Shortness of breath [R06.02] 10/23/2006 10/09/2010 Unspecified pleural effusion [J90] 12/25/2006 10/09/2010 Coronary atherosclerosis [I25.10] 01/03/2009 Hyperlipemia [E78.5] 01/03/2009 Occlusion and stenosis of carotid artery withou*01/31/2009 01/26/2019 Unspecified Sleep Disturbance [G47.9] 01/31/2009 09/12/2015 Elevated prostate specific antigen (PSA) [R97.2*02/01/2009 01/19/2018 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] 11/30/2009 10/09/2010 BPH with obstruction/lower urinary tract sympto*08/08/2010 Skin mass [R22.9] 10/26/2010 05/13/2013 Anemia [D64.9] 05/12/2013 OA (osteoarthritis) of knee [M17.9] 09/23/2014 Atrial fibrillation (HCC) [I48.91] 05/13/2016 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] 07/30/2016 RBBB (right bundle branch block) [I45.10] 07/30/2016 Encounter for monitoring anti-arrhythmic therap*07/30/2016 COPD with exacerbation (HCC) [J44.1] 08/07/2016 06/01/2020 CKD (chronic kidney disease) stage 3, GFR 30-59*09/20/2017 12/15/2018 CKD (chronic kidney disease) stage 4, GFR 15-29*07/22/2018 Chronic diastolic CHF (congestive heart failure*07/22/2018 Chronic cough [R05.3] 06/01/2020 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 No M protein is identified. [facility] Staff Review (RUST) Reviewed by Florinda kelley M.D. [facility] ALBUMIN/CREATININE RATIO, UR INEon 09-02-2024 Albumin DL <= 20 mg/L (U) [Mass/Vol] 35.0 mg/L [facility] Albumin/Creatinine (U) [Mass ratio] 44 mg/g High NINF - 30 mg/g [facility] Comment on above: Adult Male and Femal e Nephrotic Criteria: <30 mg/g is considered normal to mildly increased 30-300 mg/g is considered moderately increased >300 mg/g is considered severely increased KDIGO. (2013). KDIGO 2012 Clinical Practice Guideline for the Evaluation and Management of Chronic Kidney Disease. Official Journal of the International Society of Nephrology, 3(1), 1-150. Creatinine (U) [Mass/Vol] 79.5 mg/dL 20.0 - 300.0 mg/dL [facility] Interpretation and review of laboratory results Abnormal [facility] URINALYSIS, REFLEX MICROSCOP ICon 09-01-2024 Bacteria LM.HPF (Urine sed) [#/Area] Negative Negative /HPF [facility] Bilirubin Ql (U) Negative Negative [facility] Clarity (Unsp spec) Clear [facility] Color (U) Yellow Yellow [facility] Epithelial cells LM.HPF (Urine sed) [#/Area] None Seen /HPF [facility] Glucose Test strip (U) [Mass/Vol] 2+ Abnormal Negative [facility] Hemoglobin Ql (U) 2+ Abnormal Negative [facility] Hyaline casts (Urine sed) [#/Area] 4-10 /LPF Abnormal 0 /LPF [facility] Interpretation and review of laboratory results Abnormal [facility] Ketones Ql (U) Negative Negative [facility] Leukocyte esterase Test strip Ql (U) Negative Negative [facility] Nitrite Ql (U) Negative Negative [facility] pH (U) 5.5 [pH] NINF - 8.5 [facility] Protein (U) [Mass/Vol] Negative Negative [facility] RBC LM.HPF (Urine sed) [#/Area] /[HPF] Abnormal 0-2 /HPF [facility] Specific gravity (U) [Rel density] 1.013 1.005 - 1.030 [facility] Urobilinogen Ql (U) 0.2 EU/dL 0.2-1.0 EU/dL [facility] WBC LM.HPF (Urine sed) [#/Area] 0-5 /HPF 0-5 /HPF [facility] This test was develo ped and its performance characteristics determined by [facility]'s [facility] [place] [facility] It has not been cleared or approved by the FDA. [facility] is regulated under CLIA as qualified to perform high-complexity testing. This test is used for clinical purposes. It should not be regarded as investigational or for research. [facility] Thin prep Papanicolaou smear with manual screeningOrdered By: Jerry Jimenes on 03-27-2024 Thin prep Papanicolaou smear with manual screening 132 mg/dL 74-106 [facility] Comment on above: MANAGEMENT OF PATIEN T CARE PER NURSING PROTOCOL HEMOGLOBIN A1C (POC)on 10-13 HbA1c (Bld) [Mass fraction] 6.7 % Abnormal 4.2 - 5.6 % [facility] LABORATORYOrdered By: Charbel Carnes on 07-07-2022 Blood Glucose Testing Reason Routine (07/07/22 11:58 AM) [facility] Work Phone: Glucose [Mass/Vol] 172 mg/dL Invalid Interpretation Code 82 - 115 mg/dL [facility] Work Phone: Blood Glucose Testing Reason Routine (07/07/22 7:54 AM) [facility] Work Phone: Glucose [Mass/Vol] 172 mg/dL Invalid Interpretation Code 82 - 115 mg/dL [facility] Work Phone: .Auto Diffon 07-06-2022 Basophil, Absolute 0.0 10 3/mcL Normal 0.0-0.3 [facility] ([place]) Comment on above: Performed By: #### A PTT, FIB, PRO #### [facility] [address] [place] [address] Basophils/100 WBC (Bld) 0.8 % Normal 0.0-2.5 [facility] ([place]) Comment on above: Performed By: #### A PTT, FIB, PRO #### [address] [address] Eosinophil, Absolute 0.3 10 3/mcL Normal 0.0-0.7 [facility] ([place]) Comment on above: Performed By: #### A PTT, FIB, PRO #### [address] [address] Eosinophils/100 WBC (Bld) 5.3 % Normal 0.0-6.0 [facility] ([place]) Comment on above: Performed By: #### A PTT, FIB, PRO #### [address] [address] Lymphocyte, Absolute 1.1 10 3/mcL Normal 0.9-4.3 [facility] ([place]) Comment on above: Performed By: #### A PTT, FIB, PRO #### [address] [address] Lymphocytes/100 WBC (Bld) 17.9 % Low 20.0-40.0 [facility] ([place]) Comment on above: Performed By: #### A PTT, FIB, PRO #### [address] [address] Monocyte, Absolute 0.6 10 3/mcL Normal 0.1-1.4 [facility] ([place]) Comment on above: Performed By: #### A PTT, FIB, PRO #### [address] [address] Monocytes/100 WBC (Bld) 10.6 % Normal 2.0-13.0 [facility] ([place]) Comment on above: Performed By: #### A PTT, FIB, PRO #### [address] [address] Neutrophils/100 WBC (Bld) 65.4 % Normal 50.0-75.0 [facility] ([place]) Comment on above: Performed By: #### A PTT, FIB, PRO #### [address] [address] .GFRon 07-06-2022 GFR 34 ml/min/1.73sqm Normal [facility] ([place]) Comment on above: Result Comment: GFR Population mean for , Non- Americans Ages 20-29 = 116 mL/min/1.73 sq.m. Ages 30-39 = 107 mL/min/1.73 sq.m. Ages 40-49 = 99 mL/min/1.73 sq.m. Ages 50-59 = 93 mL/min/1.73 sq.m. Ages 60-69 = 85 mL/min/1.73 sq.m. Ages 70+ = 75 mL/min/1.73 sq.m. Chronic Kidney Disease: Less than 60 mL/min/1.73 square meters End Stage Renal Disease: Less than 15 mL/min/1.73 square meters Performed By: #### A PTT, FIB, PRO #### [address] [address] GFR Non- 28 ml/min/1.73sqm Normal [facility] ([place]) Comment on above: Result Comment: GFR Population mean for , Non- Americans Ages 20-29 = 116 mL/min/1.73 sq.m. Ages 30-39 = 107 mL/min/1.73 sq.m. Ages 40-49 = 99 mL/min/1.73 sq.m. Ages 50-59 = 93 mL/min/1.73 sq.m. Ages 60-69 = 85 mL/min/1.73 sq.m. Ages 70+ = 75 mL/min/1.73 sq.m. Chronic Kidney Disease: Less than 60 mL/min/1.73 square meters End Stage Renal Disease: Less than 15 mL/min/1.73 square meters Performed By: #### A PTT, FIB, PRO #### [address] [address] .NEUABSon 07-06-2022 Neutrophil, Absolute 3.8 10 3/mcL Normal 2.3-8.1 [facility] ([place]) Comment on above: Performed By: #### A PTT, FIB, PRO #### [address] [address] BMPon 07-06-2022 BUN/Creatinine Ratio 25.8 ratio High 10.0-22.0 [facility] ([place]) Comment on above: Performed By: #### A PTT, FIB, PRO #### [address] [address] Calcium [Mass/Vol] 10.2 mg/dL Normal 8.7-10.4 [facility] ([place]) Comment on above: Performed By: #### A PTT, FIB, PRO #### [address] [address] Chloride [Moles/Vol] 108 mmol/L Normal 98-110 [facility] ([place] Comment on above: Performed By: #### A PTT, FIB, PRO #### [address] [address] CO2 [Moles/Vol] 29 mmol/L Normal 22-32 [facility] ([place] Comment on above: Performed By: #### A PTT, FIB, PRO #### [address] [address] Creatinine [Mass/Vol] 2.21 mg/dL High 0.60-1.40 [facility] ([place]) Comment on above: Performed By: #### A PTT, FIB, PRO #### [address] [address] Electrolyte Balance 5.0 mEq/L Normal 4.0-15.0 [facility] ([place]) Comment on above: Performed By: #### A PTT, FIB, PRO #### [address] [address] Glucose [Mass/Vol] 154 mg/dL High 82-115 [facility] ([place] Comment on above: Performed By: #### A PTT, FIB, PRO #### [address] [address] Potassium [Moles/Vol] 4.3 mmol/L Normal 3.5-5.0 [facility] ([place]) Comment on above: Performed By: #### A PTT, FIB, PRO #### [address] [address] Sodium [Moles/Vol] 142 mmol/L Normal 136-145 [facility] ([place] Comment on above: Performed By: #### A PTT, FIB, PRO #### [place] [address] Urea nitrogen [Mass/Vol] 57.0 mg/dL High 8.0-22.0 [facility] ([place] Comment on above: Performed By: #### A PTT, FIB, PRO #### [place] [address] CBCon 07-06-2022 Erythrocyte distribution width (RBC) [Ratio] 14.2 % Normal 11.5-15.5 [facility] ([place] Comment on above: Performed By: #### A PTT, FIB, PRO #### [place] [address] Hematocrit (Bld) [Volume fraction] 33.9 % Low 40.0-52.0 [facility] ([place] Comment on above: Performed By: #### A PTT, FIB, PRO #### [place] [address] Hgb 11.2 G/dL Low 13.0-17.5 [facility] ([place] Comment on above: Performed By: #### A PTT, FIB, PRO #### [place] [address] MCH (RBC) [Entitic mass] 27.9 pg Normal 27.0-33.0 [facility] ([place] Comment on above: Performed By: #### A PTT, FIB, PRO #### [place] [address] MCHC 32.9 G/dL Normal 32.0-36.0 [facility] ([place] Comment on above: Performed By: #### A PTT, FIB, PRO #### [place] [address] MCV (RBC) [Entitic vol] 84.8 fL Normal 81.0-100.0 [facility] ([place] Comment on above: Performed By: #### A PTT, FIB, PRO #### [place] [address] Platelet 119 10 3/mcL Low 150-450 [facility] ([place] Comment on above: Performed By: #### A PTT, FIB, PRO #### [facility] [address] [place] [address] Platelet mean volume (Bld) [Entitic vol] 9.4 fL Normal 6.4-10.5 [facility] ([place]) Comment on above: Performed By: #### A PTT, FIB, PRO #### [facility] [address] [place] [address] RBC 4.00 10 6/mcL Low 4.50-6.00 [facility] ([place]) Comment on above: Performed By: #### A PTT, FIB, PRO #### [facility] [address] [place] [address] WBC 5.9 10 3/mcL Normal 4.5-10.8 [facility] ([place]) Comment on above: Performed By: #### A PTT, FIB, PRO #### [address] [address] LABORATORYOrdered By: Suma salazar on 07-06-2022 Blood Glucose Testing Reason Routine (07/06/22 9:37 PM) [facility] Work Phone: Glucose [Mass/Vol] 213 mg/dL Invalid Interpretation Code 82 - 115 mg/dL [facility] Work Phone: LABORATORYOrdered By: SYSTEM SYSTEM on 07-06-2022 Basophils (Bld) [#/Vol] 0.0 103/mcL Invalid Interpretation Code 0.0 - 0.3 10^3/mcL [facility] Workflow SS Basophils/100 WBC (Bld) 0.8 % Invalid Interpretation Code 0.0 - 2.5 % [facility] Workflow SS Calcium [Mass/Vol] 10.2 mg/dL Invalid Interpretation Code 8.7 - 10.4 mg/dL ADM SS Chloride [Moles/Vol] 108 mmol/L Invalid Interpretation Code 98 - 110 mEq/L ADM SS CO2 [Moles/Vol] 29 mmol/L Invalid Interpretation Code 22 - 32 mEq/L ADM SS Creatinine [Mass/Vol] 2.21 mg/dL Invalid Interpretation Code 0.60 - 1.40 mg/dL ADM SS Electrolyte Balance 5.0 mEq/L Invalid Interpretation Code 4.0 - 15.0 mEq/L ADM SS Eosinophils (Bld) [#/Vol] 0.3 103/mcL Invalid Interpretation Code 0.0 - 0.7 10^3/mcL [facility] Workflow SS Eosinophils/100 WBC (Bld) 5.3 % Invalid Interpretation Code 0.0 - 6.0 % [facility] Workflow SS Erythrocyte distribution width (RBC) [Ratio] 14.2 % Invalid Interpretation Code 11.5 - 15.5 % [facility] Workflow SS GFR/1.73 sq M.predicted among blacks MDRD (S/P/Bld) [Vol rate/Area] 34 ml/min/1.73sqm Invalid Interpretation Code Chemistry S GFR/1.73 sq M.predicted among non-blacks MDRD (S/P/Bld) [Vol rate/Area] 28 ml/min/1.73sqm Invalid Interpretation Code Chemistry S Glucose [Mass/Vol] 154 mg/dL Invalid Interpretation Code 82 - 115 mg/dL AH ADM SS Hematocrit (Bld) [Volume fraction] 33.9 % Invalid Interpretation Code 40.0 - 52.0 % [facility] Workflow SS Hemoglobin (Bld) [Mass/Vol] 11.2 G/dL Invalid Interpretation Code 13.0 - 17.5 G/dL [facility] Workflow SS Lymphocytes (Bld) [#/Vol] 1.1 103/mcL Invalid Interpretation Code 0.9 - 4.3 10^3/mcL [facility] Workflow SS Lymphocytes/100 WBC (Bld) 17.9 % Invalid Interpretation Code 20.0 - 40.0 % [facility] Workflow SS MCH (RBC) [Entitic mass] 27.9 pg Invalid Interpretation Code 27.0 - 33.0 pg [facility] Workflow SS MCHC 32.9 G/dL Invalid Interpretation Code 32.0 - 36.0 G/dL [facility] Workflow SS MCV (RBC) [Entitic vol] 84.8 fL Invalid Interpretation Code 81.0 - 100.0 fL [facility] Workflow SS Monocytes (Bld) [#/Vol] 0.6 103/mcL Invalid Interpretation Code 0.1 - 1.4 10^3/mcL [facility] Workflow SS Monocytes/100 WBC (Bld) 10.6 % Invalid Interpretation Code 2.0 - 13.0 % [facility] Workflow SS Neutrophils (Bld) [#/Vol] 3.8 103/mcL Invalid Interpretation Code 2.3 - 8.1 10^3/mcL [facility] Workflow SS Neutrophils/100 WBC (Bld) 65.4 % Invalid Interpretation Code 50.0 - 75.0 % AH Workflow SS Platelet mean volume (Bld) [Entitic vol] 9.4 fL Invalid Interpretation Code 6.4 - 10.5 fL [facility] Workflow SS Platelets (Bld) [#/Vol] 119 103/mcL Invalid Interpretation Code 150 - 450 10^3/mcL AH Workflow SS Potassium [Moles/Vol] 4.3 mmol/L Invalid Interpretation Code 3.5 - 5.0 mEq/L ADM SS RBC (Bld) [#/Vol] 4.00 106/mcL Invalid Interpretation Code 4.50 - 6.00 10^6/mcL AH Workflow SS Sodium [Moles/Vol] 142 mmol/L Invalid Interpretation Code 136 - 145 mEq/L ADM SS Urea nitrogen [Mass/Vol] 57.0 mg/dL Invalid Interpretation Code 8.0 - 22.0 mg/dL ADM SS Urea nitrogen/Creatinine [Mass ratio] 25.8 ratio Invalid Interpretation Code 10.0 - 22.0 ratio AH ADM SS WBC 5.9 103/mcL Invalid Interpretation Code 4.5 - 10.8 10^3/mcL Workflow SS .Auto Diffon 07-05-2022 Basophil, Absolute 0.0 10 3/mcL Normal 0.0-0.3 [facility] ([place] Comment on above: Performed By: #### A PTT, FIB, PRO #### [address] [address] Basophils/100 WBC (Bld) 0.8 % Normal 0.0-2.5 [facility] ([place]) Comment on above: Performed By: #### A PTT, FIB, PRO #### [address] [address] Eosinophil, Absolute 0.3 10 3/mcL Normal 0.0-0.7 [facility] ([place]) Comment on above: Performed By: #### A PTT, FIB, PRO #### [address] [address] Eosinophils/100 WBC (Bld) 5.9 % Normal 0.0-6.0 [facility] ([place]) Comment on above: Performed By: #### A PTT, FIB, PRO #### [address] [address] Lymphocyte, Absolute 1.1 10 3/mcL Normal 0.9-4.3 [facility] ([place]) Comment on above: Performed By: #### A PTT, FIB, PRO #### [address] [address] Lymphocytes/100 WBC (Bld) 21.3 % Normal 20.0-40.0 [facility] ([place]) Comment on above: Performed By: #### A PTT, FIB, PRO #### [address] [address] Monocyte, Absolute 0.5 10 3/mcL Normal 0.1-1.4 [facility] ([place] Comment on above: Performed By: #### A PTT, FIB, PRO #### [address] [address] Monocytes/100 WBC (Bld) 10.3 % Normal 2.0-13.0 [facility] ([place]) Comment on above: Performed By: #### A PTT, FIB, PRO #### [address] [address] Neutrophils/100 WBC (Bld) 61.7 % Normal 50.0-75.0 [facility] ([place]) Comment on above: Performed By: #### A PTT, FIB, PRO #### [address] [address] .GFRon 07-05-2022 GFR 31 ml/min/1.73sqm Normal [facility] ([place]) Comment on above: Result Comment: GFR Population mean for , Non- Americans Ages 20-29 = 116 mL/min/1.73 sq.m. Ages 30-39 = 107 mL/min/1.73 sq.m. Ages 40-49 = 99 mL/min/1.73 sq.m. Ages 50-59 = 93 mL/min/1.73 sq.m. Ages 60-69 = 85 mL/min/1.73 sq.m. Ages 70+ = 75 mL/min/1.73 sq.m. Chronic Kidney Disease: Less than 60 mL/min/1.73 square meters End Stage Renal Disease: Less than 15 mL/min/1.73 square meters Performed By: #### A PTT, FIB, PRO #### [address] [address] GFR Non- 26 ml/min/1.73sqm Normal [facility] ([place]) Comment on above: Result Comment: GFR Population mean for , Non- Americans Ages 20-29 = 116 mL/min/1.73 sq.m. Ages 30-39 = 107 mL/min/1.73 sq.m. Ages 40-49 = 99 mL/min/1.73 sq.m. Ages 50-59 = 93 mL/min/1.73 sq.m. Ages 60-69 = 85 mL/min/1.73 sq.m. Ages 70+ = 75 mL/min/1.73 sq.m. Chronic Kidney Disease: Less than 60 mL/min/1.73 square meters End Stage Renal Disease: Less than 15 mL/min/1.73 square meters Performed By: #### A PTT, FIB, PRO #### [address] [address] .NEUABSon 07-05-2022 Neutrophil, Absolute 3.2 10 3/mcL Normal 2.3-8.1 [facility] ([place]) Comment on above: Performed By: #### A PTT, FIB, PRO #### [address] [address] BMPon 07-05-2022 BUN/Creatinine Ratio 24.2 ratio High 10.0-22.0 [facility] ([place]) Comment on above: Performed By: #### A PTT, FIB, PRO #### [address] [address] Calcium [Mass/Vol] 10.1 mg/dL Normal 8.7-10.4 [facility] ([place]) Comment on above: Performed By: #### A PTT, FIB, PRO #### [address] [address] Chloride [Moles/Vol] 106 mmol/L Normal 98-110 [facility] ([place] Comment on above: Performed By: #### A PTT, FIB, PRO #### [address] [address] CO2 [Moles/Vol] 28 mmol/L Normal 22-32 [facility] ([place]) Comment on above: Performed By: #### A PTT, FIB, PRO #### [address] [address] Creatinine [Mass/Vol] 2.40 mg/dL High 0.60-1.40 [facility] ([place]) Comment on above: Performed By: #### A PTT, FIB, PRO #### [address] [address] Electrolyte Balance 5.0 mEq/L Normal 4.0-15.0 [facility] ([place]) Comment on above: Performed By: #### A PTT, FIB, PRO #### [address] [address] Glucose [Mass/Vol] 148 mg/dL High 82-115 [facility] ([place]) Comment on above: Performed By: #### A PTT, FIB, PRO #### [address] [address] Potassium [Moles/Vol] 4.5 mmol/L Normal 3.5-5.0 [facility] ([place] Comment on above: Performed By: #### A PTT, FIB, PRO #### [address] [address] Sodium [Moles/Vol] 139 mmol/L Normal 136-145 [facility] ([place] Comment on above: Performed By: #### A PTT, FIB, PRO #### [address] [address] Urea nitrogen [Mass/Vol] 58.0 mg/dL High 8.0-22.0 [facility] ([place]) Comment on above: Performed By: #### A PTT, FIB, PRO #### [address] [address] CBCon 07-05-2022 Erythrocyte distribution width (RBC) [Ratio] 14.4 % Normal 11.5-15.5 [facility] ([place] Comment on above: Performed By: #### A PTT, FIB, PRO #### [address] [address] Hematocrit (Bld) [Volume fraction] 32.9 % Low 40.0-52.0 [facility] ([place] Comment on above: Performed By: #### A PTT, FIB, PRO #### [address] [address] Hgb 10.7 G/dL Low 13.0-17.5 [facility] ([place] Comment on above: Performed By: #### A PTT, FIB, PRO #### [address] [address] MCH (RBC) [Entitic mass] 27.6 pg Normal 27.0-33.0 [facility] ([place] Comment on above: Performed By: #### A PTT, FIB, PRO #### [place] [id number] MCHC 32.6 G/dL Normal 32.0-36.0 [facility] ([place] Comment on above: Performed By: #### A PTT, FIB, PRO #### [place] [id number] MCV (RBC) [Entitic vol] 84.6 fL Normal 81.0-100.0 [facility] ([place] Comment on above: Performed By: #### A PTT, FIB, PRO #### [place] [id number] Platelet 115 10 3/mcL Low 150-450 [facility] ([place] Comment on above: Performed By: #### A PTT, FIB, PRO #### [place] [id number] Platelet mean volume (Bld) [Entitic vol] 9.4 fL Normal 6.4-10.5 [facility] ([place] Comment on above: Performed By: #### A PTT, FIB, PRO #### [place] [id number] RBC 3.89 10 6/mcL Low 4.50-6.00 [facility] ([place] Comment on above: Performed By: #### A PTT, FIB, PRO #### [address] [address] WBC 5.2 10 3/mcL Normal 4.5-10.8 [facility] ([place]) Comment on above: Performed By: #### A PTT, FIB, PRO #### [address] [address] LABORATORYOrdered By: SYSTEM SYSTEM on 07-05-2022 Basophils (Bld) [#/Vol] 0.0 103/mcL Invalid Interpretation Code 0.0 - 0.3 10^3/mcL Workflow SS Basophils/100 WBC (Bld) 0.8 % Invalid Interpretation Code 0.0 - 2.5 % Workflow SS Calcium [Mass/Vol] 10.1 mg/dL Invalid Interpretation Code 8.7 - 10.4 mg/dL ADM SS Chloride [Moles/Vol] 106 mmol/L Invalid Interpretation Code 98 - 110 mEq/L ADM SS CO2 [Moles/Vol] 28 mmol/L Invalid Interpretation Code 22 - 32 mEq/L ADM SS Creatinine [Mass/Vol] 2.40 mg/dL Invalid Interpretation Code 0.60 - 1.40 mg/dL ADM SS Electrolyte Balance 5.0 mEq/L Invalid Interpretation Code 4.0 - 15.0 mEq/L ADM SS Eosinophils (Bld) [#/Vol] 0.3 103/mcL Invalid Interpretation Code 0.0 - 0.7 10^3/mcL AH Workflow SS Eosinophils/100 WBC (Bld) 5.9 % Invalid Interpretation Code 0.0 - 6.0 % AH Workflow SS Erythrocyte distribution width (RBC) [Ratio] 14.4 % Invalid Interpretation Code 11.5 - 15.5 % AH Workflow SS GFR/1.73 sq M.predicted among blacks MDRD (S/P/Bld) [Vol rate/Area] 31 ml/min/1.73sqm Invalid Interpretation Code Chemistry S GFR/1.73 sq M.predicted among non-blacks MDRD (S/P/Bld) [Vol rate/Area] 26 ml/min/1.73sqm Invalid Interpretation Code Chemistry S Glucose [Mass/Vol] 148 mg/dL Invalid Interpretation Code 82 - 115 mg/dL ADM SS Hematocrit (Bld) [Volume fraction] 32.9 % Invalid Interpretation Code 40.0 - 52.0 % Workflow SS Hemoglobin (Bld) [Mass/Vol] 10.7 G/dL Invalid Interpretation Code 13.0 - 17.5 G/dL AH Workflow SS Lymphocytes (Bld) [#/Vol] 1.1 103/mcL Invalid Interpretation Code 0.9 - 4.3 10^3/mcL AH Workflow SS Lymphocytes/100 WBC (Bld) 21.3 % Invalid Interpretation Code 20.0 - 40.0 % AH Workflow SS MCH (RBC) [Entitic mass] 27.6 pg Invalid Interpretation Code 27.0 - 33.0 pg AH Workflow SS MCHC 32.6 G/dL Invalid Interpretation Code 32.0 - 36.0 G/dL AH Workflow SS MCV (RBC) [Entitic vol] 84.6 fL Invalid Interpretation Code 81.0 - 100.0 fL AH Workflow SS Monocytes (Bld) [#/Vol] 0.5 103/mcL Invalid Interpretation Code 0.1 - 1.4 10^3/mcL AH Workflow SS Monocytes/100 WBC (Bld) 10.3 % Invalid Interpretation Code 2.0 - 13.0 % AH Workflow SS Neutrophils (Bld) [#/Vol] 3.2 103/mcL Invalid Interpretation Code 2.3 - 8.1 10^3/mcL AH Workflow SS Neutrophils/100 WBC (Bld) 61.7 % Invalid Interpretation Code 50.0 - 75.0 % AH Workflow SS Platelet mean volume (Bld) [Entitic vol] 9.4 fL Invalid Interpretation Code 6.4 - 10.5 fL AH Workflow SS Platelets (Bld) [#/Vol] 115 103/mcL Invalid Interpretation Code 150 - 450 10^3/mcL AH Workflow SS Potassium [Moles/Vol] 4.5 mmol/L Invalid Interpretation Code 3.5 - 5.0 mEq/L AH ADM SS RBC (Bld) [#/Vol] 3.89 106/mcL Invalid Interpretation Code 4.50 - 6.00 10^6/mcL AH Workflow SS Sodium [Moles/Vol] 139 mmol/L Invalid Interpretation Code 136 - 145 mEq/L ADM SS Urea nitrogen [Mass/Vol] 58.0 mg/dL Invalid Interpretation Code 8.0 - 22.0 mg/dL AH ADM SS Urea nitrogen/Creatinine [Mass ratio] 24.2 ratio Invalid Interpretation Code 10.0 - 22.0 ratio AH ADM SS WBC 5.2 103/mcL Invalid Interpretation Code 4.5 - 10.8 10^3/mcL Workflow SS .Auto Diffon 07-04-2022 Basophil, Absolute 0.0 10 3/mcL Normal 0.0-0.3 [facility] ([place] Comment on above: Performed By: #### Augustine GOLD, BMP #### [address] [address] Basophils/100 WBC (Bld) 0.8 % Normal 0.0-2.5 [facility] ([place]) Comment on above: Performed By: #### Augustine FR, BMP #### [address] [address] Eosinophil, Absolute 0.3 10 3/mcL Normal 0.0-0.7 [facility] ([place]) Comment on above: Performed By: #### Augustine GOLD, BMP #### [address] [address] Eosinophils/100 WBC (Bld) 5.7 % Normal 0.0-6.0 [facility] ([place] Comment on above: Performed By: #### Augustine GOLD, BMP #### [address] [address] Lymphocyte, Absolute 1.1 10 3/mcL Normal 0.9-4.3 [facility] ([place]) Comment on above: Performed By: #### Augustine GOLD, BMP #### [address] [address] Lymphocytes/100 WBC (Bld) 18.9 % Low 20.0-40.0 [facility] ([place] Comment on above: Performed By: #### Augustine FR, BMP #### [address] [address] Monocyte, Absolute 0.6 10 3/mcL Normal 0.1-1.4 [facility] ([place] Comment on above: Performed By: #### G FR, BMP #### [address] [address] Monocytes/100 WBC (Bld) 10.8 % Normal 2.0-13.0 [facility] ([place] Comment on above: Performed By: #### Augustine FR, BMP #### [address] [address] Neutrophils/100 WBC (Bld) 63.8 % Normal 50.0-75.0 [facility] ([place] Comment on above: Performed By: #### G FR, BMP #### [address] [address] .GFRon 07-04-2022 GFR 29 ml/min/1.73sqm Normal [facility] ([place]) Comment on above: Result Comment: GFR Population mean for , Non- Americans Ages 20-29 = 116 mL/min/1.73 sq.m. Ages 30-39 = 107 mL/min/1.73 sq.m. Ages 40-49 = 99 mL/min/1.73 sq.m. Ages 50-59 = 93 mL/min/1.73 sq.m. Ages 60-69 = 85 mL/min/1.73 sq.m. Ages 70+ = 75 mL/min/1.73 sq.m. Chronic Kidney Disease: Less than 60 mL/min/1.73 square meters End Stage Renal Disease: Less than 15 mL/min/1.73 square meters Performed By: #### A PTT, FIB, PRO #### [address] [address] GFR Non- 24 ml/min/1.73sqm Normal [facility] ([place]) Comment on above: Result Comment: GFR Population mean for , Non- Americans Ages 20-29 = 116 mL/min/1.73 sq.m. Ages 30-39 = 107 mL/min/1.73 sq.m. Ages 40-49 = 99 mL/min/1.73 sq.m. Ages 50-59 = 93 mL/min/1.73 sq.m. Ages 60-69 = 85 mL/min/1.73 sq.m. Ages 70+ = 75 mL/min/1.73 sq.m. Chronic Kidney Disease: Less than 60 mL/min/1.73 square meters End Stage Renal Disease: Less than 15 mL/min/1.73 square meters Performed By: #### A PTT, FIB, PRO #### [address] [address] .MDWon 07-04-2022 Monocyte Distribution Width Not performed Normal 0.00-20.00 [facility] ([place] Comment on above: Result Comment: MDW testing performed only on adult ER patients between the ages of 18-89 years. Performed By: #### G FR, BMP #### [address] [address] .NEUABSon 07-04-2022 Neutrophil, Absolute 3.6 10 3/mcL Normal 2.3-8.1 [facility] ([place]) Comment on above: Performed By: #### G FR, BMP #### [address] [address] [facility] BUN/Creatinine Ratio 21.9 ratio Normal 10.0-22.0 [facility] ([place] Comment on above: Performed By: #### A PTT, FIB, PRO #### [place] [address] Calcium [Mass/Vol] 9.9 mg/dL Normal 8.7-10.4 [facility] ([place] Comment on above: Performed By: #### A PTT, FIB, PRO #### [place] [address] Chloride [Moles/Vol] 107 mmol/L Normal 98-110 [facility] ([place] Comment on above: Performed By: #### A PTT, FIB, PRO #### [place] [address] CO2 [Moles/Vol] 28 mmol/L Normal 22-32 [facility] ([place] Comment on above: Performed By: #### A PTT, FIB, PRO #### [address] [address] Creatinine [Mass/Vol] 2.60 mg/dL High 0.60-1.40 [facility] ([place] Comment on above: Performed By: #### A PTT, FIB, PRO #### [address] [address] Electrolyte Balance 7.0 mEq/L Normal 4.0-15.0 [facility] ([place] Comment on above: Performed By: #### A PTT, FIB, PRO #### [address] [address] Glucose [Mass/Vol] 135 mg/dL High 82-115 [facility] ([place] Comment on above: Performed By: #### A PTT, FIB, PRO #### [address] [address] Potassium [Moles/Vol] 4.6 mmol/L Normal 3.5-5.0 [facility] ([place] Comment on above: Performed By: #### A PTT, FIB, PRO #### [address] [address] Sodium [Moles/Vol] 142 mmol/L Normal 136-145 [facility] ([place] Comment on above: Performed By: #### A PTT, FIB, PRO #### [place] [address] Urea nitrogen [Mass/Vol] 57.0 mg/dL High 8.0-22.0 [facility] ([place] Comment on above: Performed By: #### A PTT, FIB, PRO #### [address] [address] CBCon 07-04-2022 Erythrocyte distribution width (RBC) [Ratio] 13.9 % Normal 11.5-15.5 [facility] ([place] Comment on above: Performed By: #### G FR, BMP #### [place] [id number] Hematocrit (Bld) [Volume fraction] 32.7 % Low 40.0-52.0 [facility] ([place] Comment on above: Performed By: #### G FR, BMP #### [address] [address] Hgb 10.6 G/dL Low 13.0-17.5 [facility] ([place] Comment on above: Performed By: #### G FR, BMP #### [address] [address] MCH (RBC) [Entitic mass] 27.4 pg Normal 27.0-33.0 [facility] ([place] Comment on above: Performed By: #### Augustine GOLD, BMP #### [address] [address] MCHC 32.4 G/dL Normal 32.0-36.0 [facility] ([place] Comment on above: Performed By: #### Augsutine GOLD, BMP #### [place] [address] MCV (RBC) [Entitic vol] 84.7 fL Normal 81.0-100.0 [facility] ([place] Comment on above: Performed By: #### Augustine GOLD, BMP #### [place] [address] Platelet 112 10 3/mcL Low 150-450 [facility] ([place] Comment on above: Performed By: #### Augustine GOLD, BMP #### [place] [address] Platelet mean volume (Bld) [Entitic vol] 9.4 fL Normal 6.4-10.5 [facility] ([place] Comment on above: Performed By: #### Augustine GOLD, BMP #### [place] [address] RBC 3.86 10 6/mcL Low 4.50-6.00 [facility] ([place] Comment on above: Performed By: #### Augustine GOLD, BMP #### [place] [address] WBC 5.7 10 3/mcL Normal 4.5-10.8 [facility] ([place] Comment on above: Performed By: #### Augustine GOLD, BMP #### [place] [address] LABORATORYOrdered By: SYSTEM SYSTEM on 07-04-2022 Basophils (Bld) [#/Vol] 0.0 103/mcL Invalid Interpretation Code 0.0 - 0.3 10^3/mcL AH Workflow SS Basophils/100 WBC (Bld) 0.8 % Invalid Interpretation Code 0.0 - 2.5 % AH Workflow SS Calcium [Mass/Vol] 9.9 mg/dL Invalid Interpretation Code 8.7 - 10.4 mg/dL AH ADM SS Chloride [Moles/Vol] 107 mmol/L Invalid Interpretation Code 98 - 110 mEq/L ADM SS CO2 [Moles/Vol] 28 mmol/L Invalid Interpretation Code 22 - 32 mEq/L ADM SS Creatinine [Mass/Vol] 2.60 mg/dL Invalid Interpretation Code 0.60 - 1.40 mg/dL ADM SS Electrolyte Balance 7.0 mEq/L Invalid Interpretation Code 4.0 - 15.0 mEq/L ADM SS Eosinophils (Bld) [#/Vol] 0.3 103/mcL Invalid Interpretation Code 0.0 - 0.7 10^3/mcL Workflow SS Eosinophils/100 WBC (Bld) 5.7 % Invalid Interpretation Code 0.0 - 6.0 % Workflow SS Erythrocyte distribution width (RBC) [Ratio] 13.9 % Invalid Interpretation Code 11.5 - 15.5 % Workflow SS GFR/1.73 sq M.predicted among blacks MDRD (S/P/Bld) [Vol rate/Area] 29 ml/min/1.73sqm Invalid Interpretation Code Chemistry S GFR/1.73 sq M.predicted among non-blacks MDRD (S/P/Bld) [Vol rate/Area] 24 ml/min/1.73sqm Invalid Interpretation Code Chemistry S Glucose [Mass/Vol] 135 mg/dL Invalid Interpretation Code 82 - 115 mg/dL ADM SS Hematocrit (Bld) [Volume fraction] 32.7 % Invalid Interpretation Code 40.0 - 52.0 % AH Workflow SS Hemoglobin (Bld) [Mass/Vol] 10.6 G/dL Invalid Interpretation Code 13.0 - 17.5 G/dL Workflow SS Lymphocytes (Bld) [#/Vol] 1.1 103/mcL Invalid Interpretation Code 0.9 - 4.3 10^3/mcL Workflow SS Lymphocytes/100 WBC (Bld) 18.9 % Invalid Interpretation Code 20.0 - 40.0 % Workflow SS MCH (RBC) [Entitic mass] 27.4 pg Invalid Interpretation Code 27.0 - 33.0 pg Workflow SS MCHC 32.4 G/dL Invalid Interpretation Code 32.0 - 36.0 G/dL Workflow SS MCV (RBC) [Entitic vol] 84.7 fL Invalid Interpretation Code 81.0 - 100.0 fL Workflow SS Monocyte distribution width Auto (Bld) [Entitic vol] Not Performed 1 *NA* (07/04/22 5:17 AM) Invalid Interpretation Code 0.00 - 20.00 Hematology S Comment on above: Result Comment: MDW testing performed only on adult ER patients between the ages of 18-89 years. Monocytes (Bld) [#/Vol] 0.6 103/mcL Invalid Interpretation Code 0.1 - 1.4 10^3/mcL Workflow SS Monocytes/100 WBC (Bld) 10.8 % Invalid Interpretation Code 2.0 - 13.0 % AH Workflow SS Neutrophils (Bld) [#/Vol] 3.6 103/mcL Invalid Interpretation Code 2.3 - 8.1 10^3/mcL Workflow SS Neutrophils/100 WBC (Bld) 63.8 % Invalid Interpretation Code 50.0 - 75.0 % Workflow SS Platelet mean volume (Bld) [Entitic vol] 9.4 fL Invalid Interpretation Code 6.4 - 10.5 fL Workflow SS Platelets (Bld) [#/Vol] 112 103/mcL Invalid Interpretation Code 150 - 450 10^3/mcL Workflow SS Potassium [Moles/Vol] 4.6 mmol/L Invalid Interpretation Code 3.5 - 5.0 mEq/L ADM SS RBC (Bld) [#/Vol] 3.86 106/mcL Invalid Interpretation Code 4.50 - 6.00 10^6/mcL AH Workflow SS Sodium [Moles/Vol] 142 mmol/L Invalid Interpretation Code 136 - 145 mEq/L AH ADM SS Urea nitrogen [Mass/Vol] 57.0 mg/dL Invalid Interpretation Code 8.0 - 22.0 mg/dL AH ADM SS Urea nitrogen/Creatinine [Mass ratio] 21.9 ratio Invalid Interpretation Code 10.0 - 22.0 ratio AH ADM SS WBC 5.7 103/mcL Invalid Interpretation Code 4.5 - 10.8 10^3/mcL Workflow SS .Auto Diffon 07-03-2022 Basophil, Absolute 0.1 10 3/mcL Normal 0.0-0.3 [facility] ([place] Comment [place]: Performed By: #### A PTT, FIB, PRO #### [facility] [address] [place] [address] Basophils/100 WBC (Bld) 1.0 % Normal 0.0-2.5 [facility] ([place]) Comment on above: Performed By: #### A PTT, FIB, PRO #### [address] [address] Eosinophil, Absolute 0.2 10 3/mcL Normal 0.0-0.7 [facility] ([place] Comment on above: Performed By: #### A PTT, FIB, PRO #### [address] [address] Eosinophils/100 WBC (Bld) 3.9 % Normal 0.0-6.0 [facility] ([place] Comment on above: Performed By: #### A PTT, FIB, PRO #### [address] [address] Lymphocyte, Absolute 1.1 10 3/mcL Normal 0.9-4.3 [facility] ([place]) Comment on above: Performed By: #### A PTT, FIB, PRO #### [address] [address] Lymphocytes/100 WBC (Bld) 19.2 % Low 20.0-40.0 [facility] ([place]) Comment on above: Performed By: #### A PTT, FIB, PRO #### [address] [address] Monocyte, Absolute 0.5 10 3/mcL Normal 0.1-1.4 [facility] ([place] Comment on above: Performed By: #### A PTT, FIB, PRO #### [address] [address] Monocytes/100 WBC (Bld) 9.4 % Normal 2.0-13.0 [facility] ([place]) Comment on above: Performed By: #### A PTT, FIB, PRO #### [address] [address] Neutrophils/100 WBC (Bld) 66.5 % Normal 50.0-75.0 [facility] ([place]) Comment on above: Performed By: #### A PTT, FIB, PRO #### [address] [address] .GFRon 07-03-2022 GFR 30 ml/min/1.73sqm Normal [facility] ([place]) Comment on above: Result Comment: GFR Population mean for , Non- Americans Ages 20-29 = 116 mL/min/1.73 sq.m. Ages 30-39 = 107 mL/min/1.73 sq.m. Ages 40-49 = 99 mL/min/1.73 sq.m. Ages 50-59 = 93 mL/min/1.73 sq.m. Ages 60-69 = 85 mL/min/1.73 sq.m. Ages 70+ = 75 mL/min/1.73 sq.m. Chronic Kidney Disease: Less than 60 mL/min/1.73 square meters End Stage Renal Disease: Less than 15 mL/min/1.73 square meters Performed By: #### A PTT, FIB, PRO #### [address] [address] GFR Non- 25 ml/min/1.73sqm Normal [facility] ([place] Comment on above: Result Comment: GFR Population mean for , Non- Americans Ages 20-29 = 116 mL/min/1.73 sq.m. Ages 30-39 = 107 mL/min/1.73 sq.m. Ages 40-49 = 99 mL/min/1.73 sq.m. Ages 50-59 = 93 mL/min/1.73 sq.m. Ages 60-69 = 85 mL/min/1.73 sq.m. Ages 70+ = 75 mL/min/1.73 sq.m. Chronic Kidney Disease: Less than 60 mL/min/1.73 square meters End Stage Renal Disease: Less than 15 mL/min/1.73 square meters Performed By: #### A PTT, FIB, PRO #### [address] [address] .MDWon 07-03-2022 Monocyte Distribution Width Not performed Normal 0.00-20.00 [facility] ([place] Comment on above: Result Comment: MDW testing performed only on adult ER patients between the ages of 18-89 years. Performed By: #### A PTT, FIB, PRO #### [address] [address] .NEUABSon 07-03-2022 Neutrophil, Absolute 3.7 10 3/mcL Normal 2.3-8.1 [facility] ([place] Comment on above: Performed By: #### A PTT, FIB, PRO #### [address] [address] BMPon 07-03-2022 CO2 [Moles/Vol] 25 mmol/L Normal 22-32 [facility] ([place] Comment on above: Performed By: #### A PTT, FIB, PRO #### [address] [address] Electrolyte Balance 11.0 mEq/L Normal 4.0-15.0 [facility] ([place] Comment on above: Performed By: #### A PTT, FIB, PRO #### [place] [id number] BUN/Creatinine Ratio 18.6 ratio Normal 10.0-22.0 [facility] ([place] Comment [place] above: Performed By: #### A PTT, FIB, PRO #### [place] [address] Calcium [Mass/Vol] 9.9 mg/dL Normal 8.7-10.4 [facility] ([place] Comment [place] above: Performed By: #### A PTT, FIB, PRO #### [place] [id number] Chloride [Moles/Vol] 107 mmol/L Normal 98-110 [facility] [place] Comment [place] above: Performed By: #### A PTT, FIB, PRO #### [place] [id number] Creatinine [Mass/Vol] 2.47 mg/dL High 0.60-1.40 [facility] ([place] Comment on above: Performed By: #### A PTT, FIB, PRO #### [address] [address] Glucose [Mass/Vol] 124 mg/dL High 82-115 [facility] ([place] Comment on above: Performed By: #### A PTT, FIB, PRO #### [place] [id number] Potassium [Moles/Vol] 4.6 mmol/L Normal 3.5-5.0 [facility] ([place] Comment on above: Result Comment: Spec imen slightly hemolyzed. Performed By: #### A PTT, FIB, PRO #### [place] [phone] Sodium [Moles/Vol] 143 mmol/L Normal 136-145 [facility] ([place] Comment on above: Performed By: #### A PTT, FIB, PRO #### [place] [address] Urea nitrogen [Mass/Vol] 46.0 mg/dL High 8.0-22.0 [facility] ([place] Comment on above: Performed By: #### A PTT, FIB, PRO #### [place] [address] CBCon 07-03-2022 Erythrocyte distribution width (RBC) [Ratio] 14.3 % Normal 11.5-15.5 [facility] ([place] Comment on above: Performed By: #### A PTT, FIB, PRO #### [place] [address] Hematocrit (Bld) [Volume fraction] 33.3 % Low 40.0-52.0 [facility] ([place] Comment on above: Performed By: #### A PTT, FIB, PRO #### [place] [address] Hgb 10.8 G/dL Low 13.0-17.5 [facility] ([place] Comment on above: Performed By: #### A PTT, FIB, PRO #### [place] [address] MCH (RBC) [Entitic mass] 27.7 pg Normal 27.0-33.0 [facility] ([place] Comment on above: Performed By: #### A PTT, FIB, PRO #### [place] [id number] MCHC 32.4 G/dL Normal 32.0-36.0 [facility] ([place] Comment on above: Performed By: #### A PTT, FIB, PRO #### [address] [address] MCV (RBC) [Entitic vol] 85.4 fL Normal 81.0-100.0 [facility] ([place] Comment on above: Performed By: #### A PTT, FIB, PRO #### [address] [address] Platelet 118 10 3/mcL Low 150-450 [facility] ([place] Comment on above: Performed By: #### A PTT, FIB, PRO #### [address] [address] Platelet mean volume (Bld) [Entitic vol] 9.1 fL Normal 6.4-10.5 [facility] ([place] Comment on above: Performed By: #### A PTT, FIB, PRO #### [address] [address] RBC 3.90 10 6/mcL Low 4.50-6.00 [facility] ([place] Comment on above: Performed By: #### A PTT, FIB, PRO #### [address] [address] WBC 5.5 10 3/mcL Normal 4.5-10.8 [facility] ([place] Comment on above: Performed By: #### A PTT, FIB, PRO #### [address] [address] LABORATORYOrdered By: SYSTEM SYSTEM on 07-03-2022 Monocyte distribution width Auto (Bld) [Entitic vol] Not Performed 2 *NA* (07/03/22 4:41 AM) Invalid Interpretation Code 0.00 - 20.00 Hematology S Comment on above: Result Comment: MDW testing performed only on adult ER patients between the ages of 18-89 years. APTTon 07-02-2022 aPTT Coag (Bld) [Time] 31.2 s Normal 25.0-35.0 [facility] ([place]) Comment on above: Result Comment: For Heparin anticoagulation therapy, the recommended therapeutic range is: 54-77 seconds (APTT Correlation with Anti-Xa therapeutic range of 0.3-0.7 units/ml). PLEASE REFERENCE THE PHARMACY PROTOCOL FOR DOSING. Performed By: #### A PTT, FIB, PRO #### [facility] [address] [place] [address] Heparin dose (APTT) Unknown Normal [facility] ([place]) Comment on above: Performed By: #### A PTT, FIB, PRO #### [facility] [address] [place] [address] FIBon 07-02-2022 Fibrinogen 566 mg/dL High 250-560 [facility] ([place]) Comment on above: Performed By: #### A PTT, FIB, PRO #### [facility] [address] [place] [address] LABORATORYOrdered By: Irma Lugo on 07-02-2022 aPTT Coag (PPP) [Time] 31.2 s Invalid Interpretation Code 25.0 - 35.0 seconds AH Auto Coag SS Fibrinogen Coag (PPP) [Mass/Vol] 566 mg/dL Invalid Interpretation Code 250 - 560 mg/dL AH Auto Coag SS Heparin dose (APTT) Unknown (07/02/22 8:41 AM) Invalid Interpretation Code AH Auto Coag SS INR Coag (PPP) [Relative time] 1.2 {INR} Invalid Interpretation Code AH Auto Coag SS PT Coag (PPP) [Time] 14.3 s Invalid Interpretation Code 9.0 - 14.9 seconds AH Auto Coag SS PLTon 07-02-2022 Platelet 132 10 3/mcL Low 150-450 [facility] ([place]) Comment on above: Performed By: #### A PTT, FIB, PRO #### [place] [id number] [address] [place] [address] PROon 07-02-2022 INR Coag (PPP) [Relative time] 1.2 {INR} Normal [facility] ([place]) Comment on above: Result Comment: The [employer] (CHEST, 1992, 102:312S-25S) recommended therapeutic range for oral anticoagulant therapy is: LOW RISK: Prophylaxis of venous thrombosis INR: 2.0-3.0 Treatment of pulmonary embolism 2.0-3.0 Prevention of systemic embolism 2.0-3.0 HIGH RISK: Mechanical prosthetic valves 2.5-3.5 Performed By: #### A PTT, FIB, PRO #### [address] [address] PT Coag (PPP) [Time] 14.3 s Normal 9.0-14.9 [facility] ([place] Comment on above: Result Comment: Effe ctive 05/31/08, Protime results may be affected by some antibiotics (i.e. Ciprofloxacin, Azithromycin, Bactrim) which may potentiate the action of oral anticoagulants, with further increases in Protime/INR. Performed By: #### A PTT, FIB, PRO #### [address] [address] .GFRon 07-01-2022 GFR 34 ml/min/1.73sqm Normal [facility] ([place]) Comment on above: Result Comment: GFR Population mean for , Non- Americans Ages 20-29 = 116 mL/min/1.73 sq.m. Ages 30-39 = 107 mL/min/1.73 sq.m. Ages 40-49 = 99 mL/min/1.73 sq.m. Ages 50-59 = 93 mL/min/1.73 sq.m. Ages 60-69 = 85 mL/min/1.73 sq.m. Ages 70+ = 75 mL/min/1.73 sq.m. Chronic Kidney Disease: Less than 60 mL/min/1.73 square meters End Stage Renal Disease: Less than 15 mL/min/1.73 square meters Performed By: #### B MP, GFR #### [address] [address] GFR Non- 28 ml/min/1.73sqm Normal [facility] ([place]) Comment on above: Result Comment: GFR Population mean for , Non- Americans Ages 20-29 = 116 mL/min/1.73 sq.m. Ages 30-39 = 107 mL/min/1.73 sq.m. Ages 40-49 = 99 mL/min/1.73 sq.m. Ages 50-59 = 93 mL/min/1.73 sq.m. Ages 60-69 = 85 mL/min/1.73 sq.m. Ages 70+ = 75 mL/min/1.73 sq.m. Chronic Kidney Disease: Less than 60 mL/min/1.73 square meters End Stage Renal Disease: Less than 15 mL/min/1.73 square meters Performed By: #### B MP, GFR #### [address] [address] BMPon 07-01-2022 BUN/Creatinine Ratio 23.3 ratio High 10.0-22.0 [facility] ([place]) Comment on above: Order Comment: UR GENT Performed By: #### B MP, GFR #### [address] [address] Calcium [Mass/Vol] 10.9 mg/dL High 8.7-10.4 [facility] ([place]) Comment on above: Order Comment: UR GENT Performed By: #### B MP, GFR #### [address] [address] Chloride [Moles/Vol] 107 mmol/L Normal 98-110 [facility] ([place]) Comment on above: Order Comment: UR GENT Performed By: #### B MP, GFR #### [address] [address] CO2 [Moles/Vol] 32 mmol/L Normal 22-32 [facility] ([place]) Comment on above: Order Comment: UR GENT Performed By: #### B MP, GFR #### [address] [address] Creatinine [Mass/Vol] 2.23 mg/dL High 0.60-1.40 [facility] ([place]) Comment on above: Order Comment: UR GENT Performed By: #### B MP, GFR #### [address] [address] Electrolyte Balance -1.0 mEq/L Low 4.0-15.0 [facility] ([place]) Comment on above: Order Comment: UR GENT Performed By: #### B MP, GFR #### [address] [address] Glucose [Mass/Vol] 164 mg/dL High 82-115 [facility] ([place] Comment on above: Order Comment: UR GENT Performed By: #### B MP, GFR #### [address] [address] Potassium [Moles/Vol] 4.5 mmol/L Normal 3.5-5.0 [facility] ([place]) Comment on above: Order Comment: UR GENT Performed By: #### B MP, GFR #### [address] [address] Sodium [Moles/Vol] 138 mmol/L Normal 136-145 [facility] ([place]) Comment on above: Order Comment: UR GENT Performed By: #### B MP, GFR #### [address] [address] Urea nitrogen [Mass/Vol] 52.0 mg/dL High 8.0-22.0 [facility] ([place]) Comment on above: Order Comment: UR GENT Performed By: #### B MP, GFR #### [address] [address] LABORATORYOrdered By: SYSTEM SYSTEM on 07-01-2022 Calcium [Mass/Vol] 10.9 mg/dL Invalid Interpretation Code 8.7 - 10.4 mg/dL ADM SS Chloride [Moles/Vol] 107 mmol/L Invalid Interpretation Code 98 - 110 mEq/L ADM SS CO2 [Moles/Vol] 32 mmol/L Invalid Interpretation Code 22 - 32 mEq/L ADM SS Creatinine [Mass/Vol] 2.23 mg/dL Invalid Interpretation Code 0.60 - 1.40 mg/dL ADM SS Electrolyte Balance -1.0 mEq/L Invalid Interpretation Code 4.0 - 15.0 mEq/L ADM SS GFR/1.73 sq M.predicted among blacks MDRD (S/P/Bld) [Vol rate/Area] 34 ml/min/1.73sqm Invalid Interpretation Code Chemistry S GFR/1.73 sq M.predicted among non-blacks MDRD (S/P/Bld) [Vol rate/Area] 28 ml/min/1.73sqm Invalid Interpretation Code Chemistry S Glucose [Mass/Vol] 164 mg/dL Invalid Interpretation Code 82 - 115 mg/dL ADM SS Potassium [Moles/Vol] 4.5 mmol/L Invalid Interpretation Code 3.5 - 5.0 mEq/L ADM SS Sodium [Moles/Vol] 138 mmol/L Invalid Interpretation Code 136 - 145 mEq/L ADM SS Urea nitrogen [Mass/Vol] 52.0 mg/dL Invalid Interpretation Code 8.0 - 22.0 mg/dL ADM SS Urea nitrogen/Creatinine [Mass ratio] 23.3 ratio Invalid Interpretation Code 10.0 - 22.0 ratio ADM SS .Auto Diffon 06-26-2022 Basophil, Absolute 0.1 10 3/mcL Normal 0.0-0.3 [facility] ([place] Comment on above: Performed By: #### A PTT, FIB, PRO #### [address] [address] Basophils/100 WBC (Bld) 1.0 % Normal 0.0-2.5 [facility] ([place]) Comment on above: Performed By: #### A PTT, FIB, PRO #### [address] [address] Eosinophil, Absolute 0.3 10 3/mcL Normal 0.0-0.7 [facility] ([place]) Comment on above: Performed By: #### A PTT, FIB, PRO #### [address] [address] Eosinophils/100 WBC (Bld) 4.9 % Normal 0.0-6.0 [facility] ([place]) Comment on above: Performed By: #### A PTT, FIB, PRO #### [address] [address] Lymphocyte, Absolute 1.2 10 3/mcL Normal 0.9-4.3 [facility] ([place]) Comment on above: Performed By: #### A PTT, FIB, PRO #### [address] [address] Lymphocytes/100 WBC (Bld) 18.5 % Low 20.0-40.0 [facility] ([place]) Comment on above: Performed By: #### A PTT, FIB, PRO #### [address] [address] Monocyte, Absolute 0.7 10 3/mcL Normal 0.1-1.4 [facility] ([place] Comment on above: Performed By: #### A PTT, FIB, PRO #### [address] [address] Monocytes/100 WBC (Bld) 10.3 % Normal 2.0-13.0 [facility] ([place]) Comment on above: Performed By: #### A PTT, FIB, PRO #### [address] [address] Neutrophils/100 WBC (Bld) 65.3 % Normal 50.0-75.0 [facility] ([place]) Comment on above: Performed By: #### A PTT, FIB, PRO #### [address] [address] .GFRon 06-26-2022 GFR Non- 30 ml/min/1.73sqm Normal [facility] ([place]) Comment on above: Result Comment: GFR Population mean for , Non- Americans Ages 20-29 = 116 mL/min/1.73 sq.m. Ages 30-39 = 107 mL/min/1.73 sq.m. Ages 40-49 = 99 mL/min/1.73 sq.m. Ages 50-59 = 93 mL/min/1.73 sq.m. Ages 60-69 = 85 mL/min/1.73 sq.m. Ages 70+ = 75 mL/min/1.73 sq.m. Chronic Kidney Disease: Less than 60 mL/min/1.73 square meters End Stage Renal Disease: Less than 15 mL/min/1.73 square meters Performed By: #### A PTT, FIB, PRO #### [address] [address] GFR 37 ml/min/1.73sqm Normal [facility] ([place]) Comment on above: Result Comment: GFR Population mean for , Non- Americans Ages 20-29 = 116 mL/min/1.73 sq.m. Ages 30-39 = 107 mL/min/1.73 sq.m. Ages 40-49 = 99 mL/min/1.73 sq.m. Ages 50-59 = 93 mL/min/1.73 sq.m. Ages 60-69 = 85 mL/min/1.73 sq.m. Ages 70+ = 75 mL/min/1.73 sq.m. Chronic Kidney Disease: Less than 60 mL/min/1.73 square meters End Stage Renal Disease: Less than 15 mL/min/1.73 square meters Performed By: #### A PTT, FIB, PRO #### [address] [address] .MDWon 06-26-2022 Monocyte Distribution Width Not performed Normal 0.00-20.00 [facility] ([place]) Comment on above: Result Comment: MDW testing performed only on adult ER patients between the ages of 18-89 years. Performed By: #### A PTT, FIB, PRO #### [place] [address] .NEUABSon 06-26-2022 Neutrophil, Absolute 4.2 10 3/mcL Normal 2.3-8.1 [facility] ([place]) Comment on above: Performed By: #### A PTT, FIB, PRO #### [place] [address] BMPon 06-26-2022 BUN/Creatinine Ratio 19.7 ratio Normal 10.0-22.0 [facility] ([place] Comment on above: Performed By: #### A PTT, FIB, PRO #### [place] [id number] Calcium [Mass/Vol] 10.8 mg/dL High 8.7-10.4 [facility] ([place] Comment on above: Performed By: #### A PTT, FIB, PRO #### [place] [id number] Chloride [Moles/Vol] 108 mmol/L Normal 98-110 [facility] ([place] Comment on above: Performed By: #### A PTT, FIB, PRO #### [place] [id number] CO2 [Moles/Vol] 28 mmol/L Normal 22-32 [facility] ([place] Comment on above: Performed By: #### A PTT, FIB, PRO #### [address] [address] Creatinine [Mass/Vol] 2.08 mg/dL High 0.60-1.40 [facility] ([place]) Comment on above: Performed By: #### A PTT, FIB, PRO #### [address] [address] Electrolyte Balance 8.0 mEq/L Normal 4.0-15.0 [facility] ([place]) Comment on above: Performed By: #### A PTT, FIB, PRO #### [address] [address] Glucose [Mass/Vol] 118 mg/dL High 82-115 [facility] ([place] Comment on above: Performed By: #### A PTT, FIB, PRO #### [address] [address] Potassium [Moles/Vol] 4.7 mmol/L Normal 3.5-5.0 [facility] ([place] Comment on above: Performed By: #### A PTT, FIB, PRO #### [address] [address] Sodium [Moles/Vol] 144 mmol/L Normal 136-145 [facility] ([place] Comment on above: Performed By: #### A PTT, FIB, PRO #### [address] [address] Urea nitrogen [Mass/Vol] 41.0 mg/dL High 8.0-22.0 [facility] ([place] Comment on above: Performed By: #### A PTT, FIB, PRO #### [address] [address] CBCon 06-26-2022 Erythrocyte distribution width (RBC) [Ratio] 14.1 % Normal 11.5-15.5 [facility] ([place] Comment on above: Performed By: #### A PTT, FIB, PRO #### [address] [address] Hematocrit (Bld) [Volume fraction] 38.0 % Low 40.0-52.0 [facility] ([place] Comment on above: Performed By: #### A PTT, FIB, PRO #### [place] [address] Hgb 12.1 G/dL Low 13.0-17.5 [facility] ([place] Comment on above: Performed By: #### A PTT, FIB, PRO #### [place] [address] MCH (RBC) [Entitic mass] 27.3 pg Normal 27.0-33.0 [facility] ([place] Comment on above: Performed By: #### A PTT, FIB, PRO #### [place] [address] MCHC 31.9 G/dL Low 32.0-36.0 [facility] ([place] Comment on above: Performed By: #### A PTT, FIB, PRO #### [place] [address] MCV (RBC) [Entitic vol] 85.6 fL Normal 81.0-100.0 [facility] ([place] Comment on above: Performed By: #### A PTT, FIB, PRO #### [place] [address] Platelet 150 10 3/mcL Normal 150-450 [facility] ([place] Comment on above: Performed By: #### A PTT, FIB, PRO #### [place] [address] Platelet mean volume (Bld) [Entitic vol] 9.5 fL Normal 6.4-10.5 [facility] ([place] Comment on above: Performed By: #### A PTT, FIB, PRO #### [place] [address] RBC 4.44 10 6/mcL Low 4.50-6.00 [facility] ([place] Comment on above: Performed By: #### A PTT, FIB, PRO #### [place] [address] WBC 6.5 10 3/mcL Normal 4.5-10.8 [facility] ([place] Comment on above: Performed By: #### A PTT, FIB, PRO #### [place] [id number] [place] [address] LABORATORYOrdered By: SYSTEM SYSTEM on 06-26-2022 Basophils (Bld) [#/Vol] 0.1 103/mcL Invalid Interpretation Code 0.0 - 0.3 10^3/mcL Workflow SS Basophils/100 WBC (Bld) 1.0 % Invalid Interpretation Code 0.0 - 2.5 % AH Workflow SS Calcium [Mass/Vol] 10.8 mg/dL Invalid Interpretation Code 8.7 - 10.4 mg/dL ADM SS Chloride [Moles/Vol] 108 mmol/L Invalid Interpretation Code 98 - 110 mEq/L ADM SS CO2 [Moles/Vol] 28 mmol/L Invalid Interpretation Code 22 - 32 mEq/L ADM SS Creatinine [Mass/Vol] 2.08 mg/dL Invalid Interpretation Code 0.60 - 1.40 mg/dL ADM SS Electrolyte Balance 8.0 mEq/L Invalid Interpretation Code 4.0 - 15.0 mEq/L ADM SS Eosinophils (Bld) [#/Vol] 0.3 103/mcL Invalid Interpretation Code 0.0 - 0.7 10^3/mcL AH Workflow SS Eosinophils/100 WBC (Bld) 4.9 % Invalid Interpretation Code 0.0 - 6.0 % AH Workflow SS Erythrocyte distribution width (RBC) [Ratio] 14.1 % Invalid Interpretation Code 11.5 - 15.5 % AH Workflow SS GFR/1.73 sq M.predicted among blacks MDRD (S/P/Bld) [Vol rate/Area] 37 ml/min/1.73sqm Invalid Interpretation Code Chemistry S GFR/1.73 sq M.predicted among non-blacks MDRD (S/P/Bld) [Vol rate/Area] 30 ml/min/1.73sqm Invalid Interpretation Code Chemistry S Glucose [Mass/Vol] 118 mg/dL Invalid Interpretation Code 82 - 115 mg/dL ADM SS Hematocrit (Bld) [Volume fraction] 38.0 % Invalid Interpretation Code 40.0 - 52.0 % Workflow SS Hemoglobin (Bld) [Mass/Vol] 12.1 G/dL Invalid Interpretation Code 13.0 - 17.5 G/dL AH Workflow SS Lymphocytes (Bld) [#/Vol] 1.2 103/mcL Invalid Interpretation Code 0.9 - 4.3 10^3/mcL AH Workflow SS Lymphocytes/100 WBC (Bld) 18.5 % Invalid Interpretation Code 20.0 - 40.0 % AH Workflow SS MCH (RBC) [Entitic mass] 27.3 pg Invalid Interpretation Code 27.0 - 33.0 pg AH Workflow SS MCHC 31.9 G/dL Invalid Interpretation Code 32.0 - 36.0 G/dL AH Workflow SS MCV (RBC) [Entitic vol] 85.6 fL Invalid Interpretation Code 81.0 - 100.0 fL AH Workflow SS Monocyte distribution width Auto (Bld) [Entitic vol] Not Performed 1 *NA* (06/26/22 11:46 AM) Invalid Interpretation Code 0.00 - 20.00 Hematology S Comment on above: Result Comment: MDW testing performed only on adult ER patients between the ages of 18-89 years. Monocytes (Bld) [#/Vol] 0.7 103/mcL Invalid Interpretation Code 0.1 - 1.4 10^3/mcL AH Workflow SS Monocytes/100 WBC (Bld) 10.3 % Invalid Interpretation Code 2.0 - 13.0 % AH Workflow SS Neutrophils (Bld) [#/Vol] 4.2 103/mcL Invalid Interpretation Code 2.3 - 8.1 10^3/mcL AH Workflow SS Neutrophils/100 WBC (Bld) 65.3 % Invalid Interpretation Code 50.0 - 75.0 % AH Workflow SS Platelet mean volume (Bld) [Entitic vol] 9.5 fL Invalid Interpretation Code 6.4 - 10.5 fL AH Workflow SS Platelets (Bld) [#/Vol] 150 103/mcL Invalid Interpretation Code 150 - 450 10^3/mcL AH Workflow SS Potassium [Moles/Vol] 4.7 mmol/L Invalid Interpretation Code 3.5 - 5.0 mEq/L AH ADM SS RBC (Bld) [#/Vol] 4.44 106/mcL Invalid Interpretation Code 4.50 - 6.00 10^6/mcL AH Workflow SS Sodium [Moles/Vol] 144 mmol/L Invalid Interpretation Code 136 - 145 mEq/L ADM SS Urea nitrogen [Mass/Vol] 41.0 mg/dL Invalid Interpretation Code 8.0 - 22.0 mg/dL ADM SS Urea nitrogen/Creatinine [Mass ratio] 19.7 ratio Invalid Interpretation Code 10.0 - 22.0 ratio AH ADM SS WBC 6.5 103/mcL Invalid Interpretation Code 4.5 - 10.8 10^3/mcL AH Workflow SS HEMOGLOBIN A1C (POC)on 06-12 HbA1c (Bld) [Mass fraction] 6.9 % Abnormal 4.2 - 5.6 % [facility] BMP - EXTERNALon 06-04-2022 Anion gap [Moles/Vol] 11 mmol/L [facility] Calcium [Mass/Vol] 10.5 mg/dL 8.8 - 10. 5 MG/DL [facility] Chloride [Moles/Vol] 107 mmol/L 98 - 10 7 MEQ/L [facility] Creatinine [Mass/Vol] 2.32 mg/dL Abnormal 0.6 - 1.3 MG/DL [facility] GFR AFR AMER [facility] GFR/1.73 sq M.predicted among non-blacks MDRD (S/P/Bld) [Vol rate/Area] 27 mL/min/{1.73_m2} [facility] Glucose [Mass/Vol] 175 mg/dL Abnormal 74 - 106 MG/DL [facility] HCO3 (Bld) [Moles/Vol] 29 mmol/L [facility] Natriuretic peptide B (Bld) [Mass/Vol] 2406 pg/mL Abnormal 0 - 450 pg/mL [facility] Potassium [Moles/Vol] 4.8 mmol/L 3.5 - 5.1 MEQ/L [facility] Sodium [Moles/Vol] 142 mmol/L 136 - 145 MEQ/L [facility] Urea nitrogen [Mass/Vol] 44 mg/dL Abnormal 6 - 20 mg/dL [facility] LABORATORYOrdered By: Cecil Delgado on 05-15-2022 Blood Glucose Testing Reason Routine (05/15/22 5:18 PM) [facility] Work Phone: Glucose [Mass/Vol] 185 mg/dL Invalid Interpretation Code 82 - 115 mg/dL [facility] Work Phone: LABORATORYOrdered By: Percy Orozco on 05-15-2022 Blood Glucose Testing Reason Routine (05/15/22 11:30 AM) [facility] Work Phone: Glucose [Mass/Vol] 197 mg/dL Invalid Interpretation Code 82 - 115 mg/dL [facility] Work Phone: Blood Glucose Testing Reason Routine (05/15/22 7:21 AM) [facility] Work Phone: Glucose [Mass/Vol] 155 mg/dL Invalid Interpretation Code 82 - 115 mg/dL [facility] Work Phone: .GFRon 05-14-2022 GFR 37 ml/min/1.73sqm Normal [facility] ([place]) Comment on above: Result Comment: GFR Population mean for , Non- Americans Ages 20-29 = 116 mL/min/1.73 sq.m. Ages 30-39 = 107 mL/min/1.73 sq.m. Ages 40-49 = 99 mL/min/1.73 sq.m. Ages 50-59 = 93 mL/min/1.73 sq.m. Ages 60-69 = 85 mL/min/1.73 sq.m. Ages 70+ = 75 mL/min/1.73 sq.m. Chronic Kidney Disease: Less than 60 mL/min/1.73 square meters End Stage Renal Disease: Less than 15 mL/min/1.73 square meters Performed By: #### A PTT, FIB, PRO #### [place] [address] GFR Non- 30 ml/min/1.73sqm Normal [facility] ([place]) Comment on above: Result Comment: GFR Population mean for , Non- Americans Ages 20-29 = 116 mL/min/1.73 sq.m. Ages 30-39 = 107 mL/min/1.73 sq.m. Ages 40-49 = 99 mL/min/1.73 sq.m. Ages 50-59 = 93 mL/min/1.73 sq.m. Ages 60-69 = 85 mL/min/1.73 sq.m. Ages 70+ = 75 mL/min/1.73 sq.m. Chronic Kidney Disease: Less than 60 mL/min/1.73 square meters End Stage Renal Disease: Less than 15 mL/min/1.73 square meters Performed By: #### A PTT, FIB, PRO #### [address] [address] APTTon 05-14-2022 aPTT Coag (Bld) [Time] 29.5 s Normal 25.0-35.0 [facility] ([place]) Comment on above: Result Comment: For Heparin anticoagulation therapy, the recommended therapeutic range is: 54-77 seconds (APTT Correlation with Anti-Xa therapeutic range of 0.3-0.7 units/ml). PLEASE REFERENCE THE PHARMACY PROTOCOL FOR DOSING. Performed By: #### A PTT, FIB, PRO #### [address] [address] Heparin dose (APTT) Unknown Normal [facility] ([place]) Comment on above: Performed By: #### A PTT, FIB, PRO #### [address] [address] BMPon 05-14-2022 BUN/Creatinine Ratio 24.5 ratio High 10.0-22.0 [facility] ([place] Comment on above: Performed By: #### A PTT, FIB, PRO #### [address] [address] Calcium [Mass/Vol] 10.2 mg/dL Normal 8.7-10.4 [facility] ([place] Comment on above: Performed By: #### A PTT, FIB, PRO #### [address] [address] Chloride [Moles/Vol] 110 mmol/L Normal 98-110 [facility] ([place] Comment on above: Performed By: #### A PTT, FIB, PRO #### [address] [address] CO2 [Moles/Vol] 24 mmol/L Normal 22-32 [facility] ([place] Comment on above: Performed By: #### A PTT, FIB, PRO #### [address] [address] Creatinine [Mass/Vol] 2.08 mg/dL High 0.60-1.40 [facility] ([place]) Comment on above: Performed By: #### A PTT, FIB, PRO #### [address] [address] Electrolyte Balance 9.0 mEq/L Normal 4.0-15.0 [facility] ([place]) Comment on above: Performed By: #### A PTT, FIB, PRO #### [address] [address] Glucose [Mass/Vol] 129 mg/dL High 82-115 [facility] ([place] Comment on above: Performed By: #### A PTT, FIB, PRO #### [address] [address] Potassium [Moles/Vol] 4.8 mmol/L Normal 3.5-5.0 [facility] ([place] Comment on above: Performed By: #### A PTT, FIB, PRO #### [address] [address] Sodium [Moles/Vol] 143 mmol/L Normal 136-145 [facility] ([place] Comment on above: Performed By: #### A PTT, FIB, PRO #### [address] [address] Urea nitrogen [Mass/Vol] 51.0 mg/dL High 8.0-22.0 [facility] ([place] Comment on above: Performed By: #### A PTT, FIB, PRO #### [address] [address] FIBon 05-14-2022 Fibrinogen 631 mg/dL High 250-560 [facility] ([place] Comment on above: Performed By: #### A PTT, FIB, PRO #### [address] [address] LABORATORYOrdered By: Marco Antonio Gil on 05-14-2022 aPTT Coag (PPP) [Time] 29.5 s Invalid Interpretation Code 25.0 - 35.0 seconds AH Auto Coag SS Fibrinogen Coag (PPP) [Mass/Vol] 631 mg/dL Invalid Interpretation Code 250 - 560 mg/dL AH Auto Coag SS Heparin dose (APTT) Unknown (05/14/22 5:53 AM) Invalid Interpretation Code AH Auto Coag SS INR Coag (PPP) [Relative time] 1.2 {INR} Invalid Interpretation Code AH Auto Coag SS PT Coag (PPP) [Time] 13.9 s Invalid Interpretation Code 9.0 - 14.9 seconds AH Auto Coag SS LABORATORYOrdered By: SYSTEM SYSTEM on 05-14-2022 Calcium [Mass/Vol] 10.2 mg/dL Invalid Interpretation Code 8.7 - 10.4 mg/dL AH ADM SS Chloride [Moles/Vol] 110 mmol/L Invalid Interpretation Code 98 - 110 mEq/L AH ADM SS CO2 [Moles/Vol] 24 mmol/L Invalid Interpretation Code 22 - 32 mEq/L AH ADM SS Creatinine [Mass/Vol] 2.08 mg/dL Invalid Interpretation Code 0.60 - 1.40 mg/dL AH ADM SS Electrolyte Balance 9.0 mEq/L Invalid Interpretation Code 4.0 - 15.0 mEq/L AH ADM SS GFR/1.73 sq M.predicted among blacks MDRD (S/P/Bld) [Vol rate/Area] 37 ml/min/1.73sqm Invalid Interpretation Code Chemistry S GFR/1.73 sq M.predicted among non-blacks MDRD (S/P/Bld) [Vol rate/Area] 30 ml/min/1.73sqm Invalid Interpretation Code Chemistry S Glucose [Mass/Vol] 129 mg/dL Invalid Interpretation Code 82 - 115 mg/dL AH ADM SS Platelets (Bld) [#/Vol] 178 103/mcL Invalid Interpretation Code 150 - 450 10^3/mcL Workflow SS Potassium [Moles/Vol] 4.8 mmol/L Invalid Interpretation Code 3.5 - 5.0 mEq/L AH ADM SS Sodium [Moles/Vol] 143 mmol/L Invalid Interpretation Code 136 - 145 mEq/L AH ADM SS Urea nitrogen [Mass/Vol] 51.0 mg/dL Invalid Interpretation Code 8.0 - 22.0 mg/dL AH ADM SS Urea nitrogen/Creatinine [Mass ratio] 24.5 ratio Invalid Interpretation Code 10.0 - 22.0 ratio AH ADM SS PLTon 05-14-2022 Platelet 178 10 3/mcL Normal 150-450 [facility] ([place] Comment on above: Performed By: #### A PTT, FIB, PRO #### [place] [address] PROon 05-14-2022 INR Coag (PPP) [Relative time] 1.2 {INR} Normal [facility] ([place]) Comment on above: Result Comment: The [employer] (CHEST, 1992, 102:312S-25S) recommended therapeutic range for oral anticoagulant therapy is: LOW RISK: Prophylaxis of venous thrombosis INR: 2.0-3.0 Treatment of pulmonary embolism 2.0-3.0 Prevention of systemic embolism 2.0-3.0 HIGH RISK: Mechanical prosthetic valves 2.5-3.5 Performed By: #### A PTT, FIB, PRO #### [facility] [address] [place] [address] PT Coag (PPP) [Time] 13.9 s Normal 9.0-14.9 [facility] ([place]) Comment on above: Result Comment: Effe ctive 05/31/08, Protime results may be affected by some antibiotics (i.e. Ciprofloxacin, Azithromycin, Bactrim) which may potentiate the action of oral anticoagulants, with further increases in Protime/INR. Performed By: #### A PTT, FIB, PRO #### [facility] [address] [place] [address] XR Pelvis and Hip - left AP and Lateral frogon 10-31-2020 IMPRESSION: Severe degenerative changes left hip without acute osseous findings. Rn Telemetry: QUYEN Transcribe Date/Time: Oct 31 2020 10:10A Dictated by : BECCA COLON MD This examination was interpreted and the report reviewed and electronically signed by: BECCA COLON MD on Oct 31 2020 10:12AM [facility] DIVISION OF RADIOLOGY * * *Final Report* * * DATE OF EXAM: Oct 30 2020 6:16PM WOX [id number] - XR HIP 3V PELV+ AP/LAT LT / PROCEDURE REASON: Groin pain, left * * * * Physician Interpretation * * * * EXAMINATION: XR HIP 3V PELV+ AP/LAT LT CLINICAL HISTORY: Left anterior groin pain x 3 weeks after sitting playing cards. Groin pain, left Technique: XR HIP 3V PELV+ AP/LAT LT -- LEFT with 3 views on 4 images Comparison: None RESULT: No fracture or dislocation. Severe degenerative changes left hip with inferomedial joint space narrowing and marginal osteophytes. SI joints and pubic symphysis are intact. Degenerative changes in the lower lumbar spine. Surgical clips in the left pelvis. DIVISION OF RADIOLOGY Provider, Ranjit [place] - 10/31/2020 * * *Final Report* * * DATE OF EXAM: Oct 30 2020 6:16PM WOX [id number] - XR HIP 3V PELV+ AP/LAT LT / PROCEDURE REASON: Groin pain, left * * * * Physician Interpretation * * * * EXAMINATION: XR HIP 3V PELV+ AP/LAT LT CLINICAL HISTORY: Left anterior groin pain x 3 weeks after sitting playing cards. Groin pain, left Technique: XR HIP 3V PELV+ AP/LAT LT -- LEFT with 3 views on 4 images Comparison: None RESULT: No fracture or dislocation. Severe degenerative changes left hip with inferomedial joint space narrowing and marginal osteophytes. SI joints and pubic symphysis are intact. Degenerative changes in the lower lumbar spine. Surgical clips in the left pelvis. IMPRESSION IMPRESSION: Severe degenerative changes left hip without acute osseous findings. Rn Telemetry: PSCB Transcribe Date/Time: Oct 31 2020 10:10A Dictated by : BECCA COLON MD This examination was interpreted and the report reviewed and electronically signed by: BECCA COLON MD on Oct 31 2020 10:12AM EST [facility] XR Pelvis and Hip - left AP and Lateral frogOrdered By: [facility] Provider on 10-31-2020 [facility] XR Pelvis and Hip - left AP and Lateral frogon 10-30-2020 Radiology Study observation (narrative) [facility] CNOVon 04-02-2018 CNOV Office Visit (AGCARDWST) FEDERICO HU ([id number]) 1935 MDate Time Provider Department04/02/18 2:00 PM AVELINO NGUYỄNWSRajiv During your visit today, we recorded the following information about you: Pulse Blood pressure Weight 75/minute 138/66 153.3 kgAvelino Nguyễn MD 04/02/2018 5:40 PM SignedPERTINENT CARDIAC HISTORYASHD - CABGx2 (LIV[place]STON-LAD, SVG-D1) 2007Pulmonary embolism - post opHTNHLDMRBBBAtrial flutterOSA - CPAPCHF - diastolicADHERENCE TO GUIDELINESACE-I or ARB for HF with prior LVEF<40 (NQF 0081) - N/AASA or Plavix for ASHD (NQF 0067) - metBeta carolin for ASHD with prior ME or prior LVEF<40 (NQF 0070) - N/ABeta carolin for HF with prior LVEF<40 (NQF 0083) - N/AACE-I or ARB for ASHD with DM or prior LVEF<40 (NQF 0066) - metStatin therapy for ASHD or FHL or DM - metBMI documented and plan if >25 (NQF 0421) - lifestyle recommendation formTobacco use screening and referral (NQF 0028) - lifestyle recommendation formRecommendation for whole food, plant based diet - lifestyle recommendation formCLINICAL IMPRESSION/PLAN:Federico Hu has stable ischemic heart disease. There is no high-gradelesion which increases the risk of surgery. He has diffuse disease and I wouldmonitor closely for chest discomfort, arrhythmia, or evidence of decompensatedheart function perioperatively. I do not anticipate complications, but noguarantees can be made. Risk of perioperative complications is estimated to beintermediate.I have advised him to bridge with Lovenox. Schedule was given to him. He willbe taking 150 milligrams once daily. His last dose will be the morning prior tosurgery. I recommend restarting Coumadin the evening after surgery ifhemostasis is acceptable. Prompt mobilization after surgery is essential. [facility].I will see him as originally scheduled.Written and verbal health teaching given to patient, patient verbalizesunderstanding and agrees with treatment plan.DIAGNOSIS FOR VISIT:ASHDPAFHISTORY OF PRESENT ILLNESSFederico Hu returns for discussion of his preoperative cardiac risk. Heunderwent cardiac cath with the finding of stable anatomy. No furtherintervention was recommended. His stress test was suggestive of ischemia and hecontinues on his current drug therapy.He is at significant risk of perioperative thromboembolic and pulmonarycomplications, given his previous history of pulmonary embolism and morbidobesity. He has given himself insulin shots and voices the opinion that hecould handle Lovenox. He's had no chest discomfort. His edema has been stable.He's had no syncope, palpitations, TIAs.ALLERGIES:ALLERGIESAll ergen Reactions- Proscar [Finasterid* RashCURRENT OUTPATIENT MEDICATIONS:sotalol (BETAPACE) 80 mg tablet Take 1 tablet by mouth once daily.spironolactone (ALDACTONE) 25 mg tablet Take 1 tablet by mouth once daily.insulin glargine (LANTUS SOLOSTAR U-100 INSULIN) 100 unit/mL (3 mL) inpn [id number] Units subcutaneously daily at bedtime.nitroglycerin sublingual (NITROQUICK) 0.4 mg SL tablet Dissolve 1 tablet underthe tongue as needed for Chest Pain. If no pain relief call 911.glipiZIDE XL (GLUCOTROL XL) 10 mg 24 hr tablet Take 1 tablet by mouth oncedaily.blood sugar diagnostic (FREESTYLE LITE STRIPS) test strip Test blood sugar(s)two times a day. Dx: 250.00, E11.65, Insulin: No. Fluctuating blood glucose.lisinopril (ZESTRIL, PRINIVIL) 10 mg tablet Take 1 tablet by mouth once daily.insulin needles, DISPOSABLE, (PEN NEEDLE) 31 gauge x 5/16 ndle 1 Each twicedaily. Diagnosis: E11.49warfarin (COUMADIN) 5 mg tablet Take 2 tablets by mouth once daily. Or asdirectedliraglutide (VICTOZA 2-GILSON) 0.6 mg/0.1 mL (18 mg/3 mL) pnij Inject 1.8 mgsubcutaneously once daily.doxazosin (CARDURA) 2 mg tablet Take 1 tablet by mouth daily at bedtime.Lovastatin 40 mg tablet Take 1 tablet by mouth daily at bedtime.furosemide (LASIX) 20 mg tablet Take 1 tablet by mouth twice daily.VITAMIN E 200 UNIT CAP Take one(1) tablet daily.MULTIVITAMIN TAB Take one(1) tablet daily.PHYSICAL EXAMINATION:VITAL SIGNS: BP 138/66 Pulse 75 Wt 338 lb (153.3kg)Chest: Clear to percussion and auscultation. Trachea is midline. Air entry isequal. Cardiac: Regular rhythm. S1 and S2 are normal. PMI is nondisplaced.There are no murmurs, rubs or gallops. Carotids are brisk without bruits.JVP is less than 10 cm. Abdomen: Soft and nontender. Examination is limitedby obesity. There are no pulsatile masses or bruits. No liver enlargement.Bowel sounds are active. Extremities: Trace edema. Pulses are intact andsymmetrical.Recent labs reviewed. There is moderate renal insufficiency. GFR is around 35.Electronically Signed:Augusto Bailey 2017 2:22 [facility]: Arianna Lazo MD 04/02/2018 2:22 PM SignedLIFESTYLE CHANGEA healthy lifestyle is the most important component of your overall treatmentplan. Please give serious thought to the following areas and commit to makinglong term changes.EAT A WHOLE FOOD, PLANT BASED DIETThe nutrition your body gets is more important than the medicine you take.What matters most is the overall way you eat. We encourage you to minimize theuse of animal products (which include dairy and all meats except fatty fish)and use whole, unprocessed plant foods to provide your protein, vitamins andother nutrients. We have a lot of information to share with you on this topic.This is not a diet. It is a way of life that you will keep with you.EXERCISE REGULARLYIt is not important to spend hours in the gym, lifting weights and perspiringheavily. A total of 2-3 hours per week of aerobic (causing you to bemoderately short of breath) exercise is sufficient to improve your health.Talk to us before you begin a new exercise program, if you have heart diseaseor experience shortness of breath or chest pain.REDUCE STRESSChronic emotional and physical stress leads to disease. Ways of reducingstress include meditation, visualization, prayer, yoga and other forms ofrelaxation therapy. Consistency is the christianson. Find a technique that works foryou and do it every day.CULTIVATE RELATIONSHIPSLoneliness and isolation have a major negative impact on health. Seek outothers who can love, care for and nurture you. Avoid hurtful relationships.MAINTAIN IDEAL BODY WEIGHTThe best way to do this is to do all the things above. Our bodies naturallyfind the right weight if we keep moving and feed ourselves the right food. Ifyour BMI is greater than 25, we strongly recommend a referral to a weightmanagement program. Please speak to us or your family physician aboutavailable programs.AVOID NICOTINE IN ALL FORMSThis includes all tobacco products, whether chewed, smoked, vaped, or rubbed onthe skin. Smoking cessation programs, which can make use of tobaccosubstitutes, medications to suppress cravings and behavior management, areavailable. Please contact your family physician about programs in your area.Gonzalo Childs RN 04/02/2018 3:31 PM SignedPatient declines Lovenox teaching. Reviewed how to administer injections, whento administer, and administration sites. Provided patient with lovenox teachingkit/information. Patient and verbalized understanding.Gonzalo Childs RNReferring Provider: NITHIN ACEVEDO [[id number]]Allergies As of Date: 04/02/2018 Noted Allergy ReactionPROSCAR (FINASTERIDE) 07/02/2010 2 - RashDate Reviewed: 04/02/2018Reviewed by: Gonzalo (Rn) Naz - Fully AssessedReason for Visit: Established Patient [175] Cmt: Discuss Lovenox BridgingPrimary Visit Diagnosis:Preop cardiovascular exam [Z01.810] Other Visit Diagnosis:ASHD (arteriosclerotic heart disease) [I25.10]Order(s):sotalol (BETAPACE) 80 mg tabletTake 1 tablet by mouth once daily.Disp: Rfl: enoxaparin (LOVENOX) 150 mg/mL syrgInject 1 mL subcutaneously q 24 HR.Disp: 6 SyringeRfl: 1Prescriptions as of 04/02/2018 Sig: SOTALOL 80 MG TABLET Take 1 tablet by mouth once d* SPIRONOLACTONE 25 MG TABLET Take 1 tablet by mouth once d* INSULIN GLARGINE (U-100) 100 * Inject 15 Units subcutaneousl* NITROGLYCERIN 0.4 MG SUBLINGU* Dissolve 1 tablet under the t* GLIPIZIDE ER 10 MG TABLET, EX* Take 1 tablet by mouth once d* BLOOD SUGAR DIAGNOSTIC STRIPS Test blood sugar(s) two times* LISINOPRIL 10 MG TABLET Take 1 tablet by mouth once d* PEN NEEDLE, DIABETIC 31 GAUGE* 1 Each twice daily. Diagnosis* WARFARIN 5 MG TABLET Take 2 tablets by mouth once * LIRAGLUTIDE 0.6 MG/0.1 ML (18* Inject 1.8 mg subcutaneously * DOXAZOSIN 2 MG TABLET Take 1 tablet by mouth daily * LOVASTATIN 40 MG TABLET Take 1 tablet by mouth daily * FUROSEMIDE 20 MG TABLET Take 1 tablet by mouth twice * * VITAMIN E 200 UNIT CAPSULE Take one(1) tablet daily. * MULTIVITAMIN TABLET Take one(1) tablet daily. 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 Unspecified Sleep Disturbance [G47.9] INVALID FOR*09/12/2015 More... Elevated prostate specific antigen (PSA) [R97.2*INVALID FOR*01/19/2018 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] INVALID FOR*10/09/2010 BPH with obstruction/lower urinary tract sympto*INVALID FOR* Skin mass [R22.9] INVALID FOR*05/13/2013 More... Anemia [D64.9] INVALID FOR* OA (osteoarthritis) of knee [M17.10] INVALID FOR* More... More... Atrial fibrillation (HCC) [I48.91] INVALID FOR* 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] INVALID FOR* RBBB (right bundle branch block) [I45.10] INVALID FOR* Encounter for monitoring anti-arrhythmic therap*INVALID FOR* COPD with exacerbation (HCC) [J44.1] INVALID FOR* CKD (chronic kidney disease) stage 3, GFR 30-59*INVALID FOR* Other instructions from your clinician: LIFESTYLE CHANGE A healthy lifestyle is the most important component of your overall treatment plan. Please give serious thought to the following areas and commit to making extermination inspector changes. EAT A WHOLE FOOD, PLANT BASED DIET The nutrition your body gets is more important than the medicine you take. What matters most is the overall way you eat. We encourage you to minimize the use of animal products (which include dairy and all meats except fatty fish) and use whole, unprocessed plant foods to provide your protein, vitamins and other nutrients. We have a lot of information to share with you on this topic. This is not a diet. It is a way of life that you will keep with you. EXERCISE REGULARLY It is not important to spend hours in the gym, lifting weights and perspiring heavily. A total of 2-3 hours per week of aerobic (causing you to be moderately short of breath) exercise is sufficient to improve your health. Talk to us before you begin a new exercise program, if you have heart disease or experience shortness of breath or chest pain. REDUCE STRESS Chronic emotional and physical stress leads to disease. Ways of reducing stress include meditation, visualization, prayer, yoga and other forms of relaxation therapy. Consistency is the christianson. Find a technique that works for you and do it every day. CULTIVATE RELATIONSHIPS Loneliness and isolation have a major negative impact on health. Seek out others who can love, care for and nurture you. Avoid hurtful relationships. MAINTAIN IDEAL BODY WEIGHT The best way to do this is to do all the things above. Our bodies naturally find the right weight if we keep moving and feed ourselves the right food. If your BMI is greater than 25, we strongly recommend a referral to a weight management program. Please speak to us or your family physician about available programs. AVOID NICOTINE IN ALL FORMS This includes all tobacco products, whether chewed, smoked, vaped, or rubbed on the skin. Smoking cessation programs, which can make use of tobacco substitutes, medications to suppress cravings and behavior management, are available. Please contact your family physician about programs in your area.Visit Notes:>> Gonzalo Cardenas April 02, 2018 3:19 PM Status: SignedPatient declines Lovenox teaching. Reviewed how to administer injections,when to administer, and administration sites. Provided patient withlovenox teaching kit/information. Patient and verbalizedunderstanding.Alejandro shefali Sampsel, RNPrescriptions ordered this encounter Disp Refills Start End SOTALOL 80 MG TABLET 04/02/2018 Class: Med Update Route: ORAL Sig: Take 1 tablet by mouth once daily. ENOXAPARIN 150 MG/ML SUBCUTANEOUS SY* 6 Sy* 1 04/02/2018 Route: SUBCUTANEOUS Sig: Inject 1 mL subcutaneously q 24 HR.Medications Discontinued During This Encounter sotalol (BETAPACE) 80 mg tablet 60 t* 11 03/19/2018 04/02/2018 Route: ORAL Sig: Take 1 tablet by mouth twice daily. Patient taking differently: Take 80 mg by mouth once daily. Disc: Reason for discontinue is not on file.Follow-up and Disposition History RecordedEncounter Number: [id number] Status:Closed by AVELINO NGUYỄN MD on 04/02/18 [facility] PROGRESSon 04-02-2018 PROGRESS HNO ID: [id number] thor: Avelino Quick: (none)Author Type: PhysicianType: Progress NotesFiled: 04/02/2018 5:40 PMNote Text:PERTINENT CARDIAC HISTORYASHD - CABGx2 (LIVINGSTON-LAD, SVG-D1) 2007Pulmonary embolism - post opHTNHLDMRBBBAtrial flutterOSA - CPAPCHF - diastolicADHERENCE TO GUIDELINESACE-I or ARB for HF with prior LVEF<40 (NQF 0081) - N/AASA or Plavix for ASHD (NQF 0067) - metBeta carolin for ASHD with prior ME or prior LVEF<40 (NQF 0070) - N/ABeta carolin for HF with prior LVEF<40 (NQF 0083) - N/AACE-I or ARB for ASHD with DM or prior LVEF<40 (NQF 0066) - metStatin therapy for ASHD or FHL or DM - metBMI documented and plan if >25 (NQF 0421) - lifestyle recommendation formTobacco use screening and referral (NQF 0028) - lifestyle recommendationformRecommend ation for whole food, plant based diet - lifestyle recommendationformCLINICAL IMPRESSION/PLAN:Federico Hu has stable ischemic heart disease. There is no high-gradelesion which increases the risk of surgery. He has diffuse disease and Iwould monitor closely for chest discomfort, arrhythmia, or evidence ofdecompensated heart function perioperatively. I do not anticipatecomplications, but no guarantees can be made. Risk of perioperativecomplications is estimated to be intermediate.I have advised him to bridge with Lovenox. Schedule was given to him. Hewill be taking 150 milligrams once daily. His last dose will be themorning prior to surgery. I recommend restarting Coumadin the eveningafter surgery if hemostasis is acceptable. Prompt mobilization aftersurgery is essential. [facility] and [facility] can befollowed there.I will see him as originally scheduled.Written and verbal health teaching given to patient, patient verbalizesunderstanding and agrees with treatment plan.DIAGNOSIS FOR VISIT:ASHDPAFHISTORY OF PRESENT ILLNESSFederico Hu returns for discussion of his preoperative cardiac risk.He underwent cardiac cath with the finding of stable anatomy. No furtherintervention was recommended. His stress test was suggestive of ischemiaand he continues on his current drug therapy.He is at significant risk of perioperative thromboembolic and pulmonarycomplications, given his previous history of pulmonary embolism and morbidobesity. He has given himself insulin shots and voices the opinion that hecould handle Lovenox. He's had no chest discomfort. His edema has beenstable. He's had no syncope, palpitations, TIAs.ALLERGIES:ALLERGIESAll ergen Reactions- Proscar [Finasterid* RashCURRENT OUTPATIENT MEDICATIONS:sotalol (BETAPACE) 80 mg tablet Take 1 tablet by mouth once daily.spironolactone (ALDACTONE) 25 mg tablet Take 1 tablet by mouth once daily.insulin glargine (LANTUS SOLOSTAR U-100 INSULIN) 100 unit/mL (3 mL) inpnInject 15 Units subcutaneously daily at bedtime.nitroglycerin sublingual (NITROQUICK) 0.4 mg SL tablet Dissolve 1 tabletunder the tongue as needed for Chest Pain. If no pain relief call 911.glipiZIDE XL (GLUCOTROL XL) 10 mg 24 hr tablet Take 1 tablet by mouth oncedaily.blood sugar diagnostic (FREESTYLE LITE STRIPS) test strip Test bloodsugar(s) two times a day. Dx: 250.00, E11.65, Insulin: No. Fluctuatingblood glucose.lisinopril (ZESTRIL, PRINIVIL) 10 mg tablet Take 1 tablet by mouth oncedaily.insulin needles, DISPOSABLE, (PEN NEEDLE) 31 gauge x /16 ndle 1 E[place] daily. Diagnosis: E11.49warfarin (COUMADIN) 5 mg tablet Take 2 tablets by mouth once daily. Or asdirectedliraglutide (VICTOZA 2-GILSON) 0.6 mg/0.1 mL (18 mg/3 mL) pnij Inject 1.8 mgsubcutaneously once daily.doxazosin (CARDURA) 2 mg tablet Take 1 tablet by mouth daily at bedtime.Lovastatin 40 mg tablet Take 1 tablet by mouth daily at bedtime.furosemide (LASIX) 20 mg tablet Take 1 tablet by mouth twice daily.VITAMIN E 200 UNIT CAP Take one(1) tablet daily.MULTIVITAMIN TAB Take one(1) tablet daily.PHYSICAL EXAMINATION:VITAL SIGNS: BP 138/66 Pulse 75 Wt 338 lb (153.3kg)Chest: Clear to percussion and auscultation. Trachea is midline. Airentry is equal. Cardiac: Regular rhythm. S1 and S2 are normal. PMI isnondisplaced. There are no murmurs, rubs or gallops. Carotids are briskwithout bruits. JVP is less than 10 cm. Abdomen: Soft and nontender.Examination is limited by obesity. There are no pulsatile masses orbruits. No liver enlargement. Bowel sounds are active. Extremities:Trace edema. Pulses are intact and symmetrical.Recent labs reviewed. There is moderate renal insufficiency. GFR is [id number].Electronically Signed:Avelino Nguyễn, Noel2017 2:22 [facility]: Nithin Acevedo MD [facility] CNOVon 02-19-2018 [facility] Office Visit (AGCARDWST) [facility]ICO HU ([id number]) 1935 [facility] Department[facility]/19/18 9:00 AM AVELINO NGUYỄNWSRajiv During your visit today, we recorded the following information about you: Pulse Blood pressure Weight Height 72/minute 100/60 152.3 kg 1.854 Stuart Nguyễn MD 02/20/2018 8:37 AM SignedPERTINENT CARDIAC HISTORYASHD - CABGx2 (LIV[place]STON-LAD, SVG-D1) 2007Pulmonary embolism - post opHTNHLDMRBBBAtrial flutterOSA - CPAPCHF - diastolicADHERENCE TO GUIDELINESACE-I or ARB for HF with prior LVEFANDlt;40 (NQF 0081) - N/AASA or Plavix for ASHD (NQF 0067) - metBeta carolin for ASHD with prior ME or prior LVEFANDlt;40 (NQF 0070) - N/ABeta carolin for HF with prior LVEFANDlt;40 (NQF 0083) - N/AACE-I or ARB for ASHD with DM or prior LVEFANDlt;40 (NQF 0066) - metStatin therapy for ASHD or FHL or DM - metBMI documented and plan if ANDgt;25 (NQF 0421) - lifestyle recommendation formTobacco use screening and referral (NQF 0028) - lifestyle recommendation formRecommendation for whole food, plant based diet - lifestyle recommendation formCLINICAL IMPRESSION/PLAN:Federico Hu has probable gression of ischemic heart disease. He is havingno symptoms at rest, but is unable to exercise to a 4 met level. I haverecommended angiography prior to surgery to evaluate the possibility ofprogression of disease and an unstable lesion which would increase the risk ofsurgery. This will be carried out at [facility] in the near future. Chestx-ray and labs will be ordered.I will see him as needed after angiography.Written and verbal health teaching given to patient, patient verbalizesunderstanding and agrees with treatment plan.DIAGNOSIS FOR VISIT:Abnormal stress testHISTORY OF PRESENT ILLNESSFederico Hu returns for discussion of his abnormal stress test, whichsuggested a moderate amount of inferior ischemia.He's had no chest discomfort and has used no nitroglycerin. He has been verylimited in his ambulation due to his knee pain and is waiting on surgery. Hedenies edema, syncope, palpitations. Surgery has been postponed pendingevaluation of possible progression of his ischemic heart disease.ALLERGIES:ALLERGIES Allergen Reactions- Proscar [Finasterid* RashCURRENT OUTPATIENT MEDICATIONS:nitroglycerin sublingual (NITROQUICK) 0.4 mg SL tablet Dissolve 1 tablet underthe tongue as needed for Chest Pain. If no pain relief call 911.glipiZIDE XL (GLUCOTROL XL) 10 mg 24 hr tablet Take 1 tablet by mouth oncedaily.blood sugar diagnostic (FREESTYLE LITE STRIPS) test strip Test blood sugar(s)two times a day. Dx: 250.00, E11.65, Insulin: No. Fluctuating blood glucose.lisinopril (ZESTRIL, PRINIVIL) 10 mg tablet Take 1 tablet by mouth once daily.insulin needles, DISPOSABLE, (PEN NEEDLE) 31 gauge x 5/16ANDquot; ndle 1 Eachtwice daily. Diagnosis: E11.49warfarin (COUMADIN) 5 mg tablet Take 2 tablets by mouth once daily. Or asdirectedspironolactone (ALDACTONE) 25 mg tablet Take 1 tablet by mouth once daily.liraglutide (VICTOZA 2-GILSON) 0.6 mg/0.1 mL (18 mg/3 mL) pnij Inject 1.8 mgsubcutaneously once daily.metFORMIN (GLUCOPHAGE) 1,000 mg tablet Take 1 tablet by mouth twice daily.doxazosin (CARDURA) 2 mg tablet Take 1 tablet by mouth daily at bedtime.Lovastatin 40 mg tablet Take 1 tablet by mouth daily at bedtime.furosemide (LASIX) 20 mg tablet Take 1 tablet by mouth twice daily.sotalol (BETAPACE) 80 mg tablet Take 1 tablet by mouth twice daily.VITAMIN E 200 UNIT CAP Take one(1) tablet daily.MULTIVITAMIN TAB Take one(1) tablet daily.PHYSICAL EXAMINATION:VITAL SIGNS: BP 100/60 Pulse 72 Ht 6' 1ANDquot; (1.85m) Wt 335 lb 12.8 oz(152.3kg) BMI 44.31 kg/(m2).Chest: Clear to percussion and auscultation. Trachea is midline. Air entry isequal. Cardiac: Regular rhythm. S1 and S2 are normal. PMI is nondisplaced.There are no murmurs, rubs or gallops. Carotids are brisk without bruits.JVP is less than 10 cm. Abdomen: Soft and nontender.Obesity precludes adequateexamination. There are no pulsatile masses or bruits. No liver enlargement.Bowel sounds are active. Extremities: No edema. Pulses are intact andsymmetrical.Stress test showed normal ejection fraction. There was evidence of a moderatearea of inferior ischemia.EKG shows sinus rhythm with first degree AV block. There is right bundle branchblock. No change is seen since 02/19/17.Electronically Signed:Arleen Bailey 2017 9:57 [facility]: Nithin Acevedo, MDReferring Provider: AVELINO NGUYỄN [[id number]]Allergies As of Date: 02/19/2018 Noted Allergy ReactionPROSCAR (FINASTERIDE) 07/02/2010 2 - RashDate Reviewed: 02/19/2018Reviewed by: Anthony Ortiz - Fully AssessedReason for Visit: Follow Up [171]Primary Visit Diagnosis:Abnormal stress test [R94.39]Order(s):ECG B/O W INTERP (MED OFFICE) [ECG06] Order #: [id number] XR CHEST 2V FRONTAL/LAT [[id number]] Order #: [id number] FUTURE BASIC METABOLIC PNL [SQBMP] Order #: [id number] FUTURE CBC [SQCBC] Order #: [id number] FUTURE LEFT HEART CATH,PERCUTANEOUS [74660PTJ] Order #: [id number]: 1Prescriptions as of 02/19/2018 Sig: NITROGLYCERIN 0.4 MG SUBLINGU* Dissolve 1 tablet under the t* GLIPIZIDE ER 10 MG TABLET, EX* Take 1 tablet by mouth once d* BLOOD SUGAR DIAGNOSTIC STRIPS Test blood sugar(s) two times* LISINOPRIL 10 MG TABLET Take 1 tablet by mouth once d* PEN NEEDLE, DIABETIC 31 GAUGE* 1 Each twice daily. Diagnosis* WARFARIN 5 MG TABLET Take 2 tablets by mouth once * SPIRONOLACTONE 25 MG TABLET Take 1 tablet by mouth once d* LIRAGLUTIDE 0.6 MG/0.1 ML (18* Inject 1.8 mg subcutaneously * METFORMIN 1,000 MG TABLET Take 1 tablet by mouth twice * DOXAZOSIN 2 MG TABLET Take 1 tablet by mouth daily * LOVASTATIN 40 MG TABLET Take 1 tablet by mouth daily * FUROSEMIDE 20 MG TABLET Take 1 tablet by mouth twice * SOTALOL 80 MG TABLET Take 1 tablet by mouth twice * * VITAMIN E 200 UNIT CAPSULE Take one(1) tablet daily. 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 Unspecified Sleep Disturbance [G47.9] INVALID FOR*09/12/2015 More... Elevated prostate specific antigen (PSA) [R97.2*INVALID FOR*01/19/2018 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] INVALID FOR*10/09/2010 BPH with obstruction/lower urinary tract sympto*INVALID FOR* Skin mass [R22.9] INVALID FOR*05/13/2013 More... Anemia [D64.9] INVALID FOR* OA (osteoarthritis) of knee [M17.10] INVALID FOR* More... More... Atrial fibrillation (HCC) [I48.91] INVALID FOR* 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] INVALID FOR* RBBB (right bundle branch block) [I45.10] INVALID FOR* Encounter for monitoring anti-arrhythmic therap*INVALID FOR* COPD with exacerbation (HCC) [J44.1] INVALID FOR* CKD (chronic kidney disease) stage 3, GFR 30-59*INVALID FOR* Status:Closed by AVELINO NGUYỄN MD on 02/20/18 Normal [facility] PROGRESSon 02-19-2018 PROGRESS HNO ID: [id number] thor: Avelino Quick: (none)Author Type: PhysicianType: Progress NotesFiled: 02/20/2018 8:37 AMNote Text:PERTINENT CARDIAC HISTORYASHD - CABGx2 ([place]-LAD, SVG-D1) 2007Pulmonary embolism - post opHTNHLDMRBBBAtrial flutterOSA - CPAPCHF - diastolicADHERENCE TO GUIDELINESACE-I or ARB for HF with prior LVEF<40 (NQF 0081) - N/AASA or Plavix for ASHD (NQF 0067) - metBeta carolin for ASHD with prior ME or prior LVEF<40 (NQF 0070) - N/ABeta carolin for HF with prior LVEF<40 (NQF 0083) - N/AACE-I or ARB for ASHD with DM or prior LVEF<40 (NQF 0066) - metStatin therapy for ASHD or FHL or DM - metBMI documented and plan if >25 (NQF 0421) - lifestyle recommendation formTobacco use screening and referral (NQF 0028) - lifestyle recommendationformRecommend ation for whole food, plant based diet - lifestyle recommendationformCLINICAL IMPRESSION/PLAN:Federico Hu has probable gression of ischemic heart disease. He ishaving no symptoms at rest, but is unable to exercise to a 4 met level. Ihave recommended angiography prior to surgery to evaluate the possibilityof progression of disease and an unstable lesion which would increase therisk of surgery. This will be carried [facility] at [facility]. Chest x-ray and labs will be ordered.I will see him as needed after angiography.Written and verbal health teaching given to patient, patient verbalizesunderstanding and agrees with treatment plan.DIAGNOSIS FOR VISIT:Abnormal stress testHISTORY OF PRESENT ILLNESSFederico Hu returns for discussion of his abnormal stress test, whichsuggested a moderate amount of inferior ischemia.He's had no chest discomfort and has used no nitroglycerin. He has beenvery limited in his ambulation due to his knee pain and is waiting onsurgery. He denies edema, syncope, palpitations. Surgery has beenpostponed pending evaluation of possible progression of his ischemic heartdisease.ALLERGIES:JULIO RGIESAllergen Reactions- Proscar [Finasterid* RashCURRENT OUTPATIENT MEDICATIONS:nitroglycerin sublingual (NITROQUICK) 0.4 mg SL tablet Dissolve 1 tabletunder the tongue as needed for Chest Pain. If no pain relief call 911.glipiZIDE XL (GLUCOTROL XL) 10 mg 24 hr tablet Take 1 tablet by mouth oncedaily.blood sugar diagnostic (FREESTYLE LITE STRIPS) test strip Test bloodsugar(s) two times a day. Dx: 250.00, E11.65, Insulin: No. Fluctuatingblood glucose.lisinopril (ZESTRIL, PRINIVIL) 10 mg tablet Take 1 tablet by mouth oncedaily.insulin needles, DISPOSABLE, (PEN NEEDLE) 31 gauge x 5/16 ndle 1 Eachtwice daily. Diagnosis: E11.49warfarin (COUMADIN) 5 mg tablet Take 2 tablets by mouth once daily. Or asdirectedspironolactone (ALDACTONE) 25 mg tablet Take 1 tablet by mouth once daily.liraglutide (VICTOZA 2-GILSON) 0.6 mg/0.1 mL (18 mg/3 mL) pnij Inject 1.8 mgsubcutaneously once daily.metFORMIN (GLUCOPHAGE) 1,000 mg tablet Take 1 tablet by mouth twice daily.doxazosin (CARDURA) 2 mg tablet Take 1 tablet by mouth daily at bedtime.Lovastatin 40 mg tablet Take 1 tablet by mouth daily at bedtime.furosemide (LASIX) 20 mg tablet Take 1 tablet by mouth twice daily.sotalol (BETAPACE) 80 mg tablet Take 1 tablet by mouth twice daily.VITAMIN E 200 UNIT CAP Take one(1) tablet daily.MULTIVITAMIN TAB Take one(1) tablet daily.PHYSICAL EXAMINATION:VITAL SIGNS: BP 100/60 Pulse 72 Ht 6' 1 (1.85m) Wt 335 lb 12.8 oz(152.3kg) BMI 44.31 kg/(m2).Chest: Clear to percussion and auscultation. Trachea is midline. Airentry is equal. Cardiac: Regular rhythm. S1 and S2 are normal. PMI isnondisplaced. There are no murmurs, rubs or gallops. Carotids are briskwithout bruits. JVP is less than 10 cm. Abdomen: Soft andnontender.Obesity precludes adequate examination. There are no pulsatilemasses or bruits. No liver enlargement. Bowel sounds are active.Extremities: No edema. Pulses are intact and symmetrical.Stress test showed normal ejection fraction. There was evidence of amoderate area of inferior ischemia.EKG shows sinus rhythm with first degree AV block. There is right bundlebranch block. No change is seen since 02/19/17.Electronically Signed:Arleen Bailey 2017 9:57 [facility]: Nithin Acevedo MD [facility] CNOVon 12-15-2017 CNOV Office Visit (AGCARDWST) FEDERICO HU ([id number]) 1935 [facility] Time Provider Department12/15/17 9:00 AM AVELINO NGUYỄN AGCARDWSRajiv During your visit today, we recorded the following information about you: Pulse Blood pressure Weight Height 76/minute 120/58 154.2 kg 1.854 Stuart Nguyễn MD 12/15/2017 12:15 PM SignedPERTINENT CARDIAC HISTORYASHD - CABGx2 2007Pulmonary embolism - post opHTNHLDMRBBBAtrial flutterOSA - CPAPCHF - diastolicADHERENCE TO GUIDELINESACE-I or ARB for HF with prior LVEFANDlt;40 (NQF 0081) - N/AASA or Plavix for ASHD (NQF 0067) - metBeta carolin for ASHD with prior ME or prior LVEFANDlt;40 (NQF 0070) - N/ABeta carolin for HF with prior LVEFANDlt;40 (NQF 0083) - N/AACE-I or ARB for ASHD with DM or prior LVEFANDlt;40 (NQF 0066) - metStatin therapy for ASHD or FHL or DM - metBMI documented and plan if ANDgt;25 (NQF 0421) - lifestyle recommendation formTobacco use screening and referral (NQF 0028) - lifestyle recommendation formRecommendation for whole food, plant based diet - lifestyle recommendation formCLINICAL IMPRESSION/PLAN:Federico Hu has stable cardiac issues. His atrial flutter iswell-controlled. He is advised to continue his current medication.I've encouraged him to increase his activity to get his weight under bettercontrol.Laboratory studies are due in January.I will see him in 8 months or as neededWritten and verbal health teaching given to patient, patient verbalizesunderstanding and agrees with treatment plan.This note was generated using MyMedMatch voice recognition system, and there may besome incorrect words, spellings, and punctuation that were not noted inchecking the note before saving.DIAGNOSIS FOR VISIT:ASHDHISTORY OF PRESENT ILLNESSFederico Hu returns for follow-up of multiple cardiac issues, as notedabove.He's had no recent chest pain. Exercise tolerance has been limited but stable.He does not attempt to exercise on a regular basis. He's had no syncope, TIAs,amaurosis or claudication. He's had minimal palpitations.ALLERGIES:JULIO RGIESAllergen Reactions- Proscar [Finasterid* RashCURRENT OUTPATIENT MEDICATIONS:blood sugar diagnostic (FREESTYLE LITE STRIPS) test strip Test blood sugar(s)two times a day. Dx: 250.00, E11.65, Insulin: No. Fluctuating blood glucose.lisinopril (ZESTRIL, PRINIVIL) 10 mg tablet Take 1 tablet by mouth once daily.insulin needles, DISPOSABLE, (PEN NEEDLE) 31 gauge x 5/16ANDquot; ndle 1 Eachtwice daily. Diagnosis: E11.49warfarin (COUMADIN) 5 mg tablet Take 2 tablets by mouth once daily. Or asdirectedspironolactone (ALDACTONE) 25 mg tablet Take 1 tablet by mouth once daily.liraglutide (VICTOZA 2-GILSON) 0.6 mg/0.1 mL (18 mg/3 mL) pnij Inject 1.8 mgsubcutaneously once daily.metFORMIN (GLUCOPHAGE) 1,000 mg tablet Take 1 tablet by mouth twice daily.doxazosin (CARDURA) 2 mg tablet Take 1 tablet by mouth daily at bedtime.Lovastatin 40 mg tablet Take 1 tablet by mouth daily at bedtime.furosemide (LASIX) 20 mg tablet Take 1 tablet by mouth twice daily.sotalol (BETAPACE) 80 mg tablet Take 1 tablet by mouth twice daily.glipiZIDE XL (GLUCOTROL XL) 10 mg 24 hr tablet Take 1 tablet by mouth oncedaily.VITAMIN E 200 UNIT CAP Take one(1) tablet daily.MULTIVITAMIN TAB Take one(1) tablet daily.PHYSICAL EXAMINATION:VITAL SIGNS: BP 120/58 Pulse 76 Ht 6' 1ANDquot; (1.85m) Wt 339 lb 14.4 oz(154.2kg) BMI 44.85 kg/(m2).Chest: Clear to percussion and auscultation. Trachea is midline. Air entry isequal. Cardiac: Regular rhythm. S1 and S2 are normal. PMI is nondisplaced.There are no murmurs, rubs or gallops. Carotids are brisk without bruits.JVP is less than 10 cm. Abdomen: Soft and nontender. There is morbid obesity.There are no pulsatile masses or bruits. No liver enlargement. Bowel soundsare active. Extremities: No edema. Pulses are intact and symmetrical.Recent labs reviewed. Renal function is impaired but stable. TSH is normal.Electronically Signed:Avelino Nguyễn MDDecember 15, 2017 9:03 [facility]: Arianna Lazo MD 12/15/2017 9:03 AM SignedLIFESTYLE CHANGEA healthy lifestyle is the most important component of your overall treatmentplan. Please give serious thought to the following areas and commit to makinglong term changes.EAT A WHOLE FOOD, PLANT BASED DIETThe nutrition your body gets is more important than the medicine you take.What matters most is the overall way you eat. We encourage you to minimize theuse of animal products (which include dairy and all meats except fatty fish)and use whole, unprocessed plant foods to provide your protein, vitamins andother nutrients. We have a lot of information to share with you on this topic. We also hold Shared Medical Appointments, where you can come visit with in the company of other patients and spend over an hour talking aboutthe challenges of changing the way you eat. This is not a ANDquot;dietANDquot;.It is a way of life that you will keep with you.EXERCISE REGULARLYIt is not important to spend hours in the gym, lifting weights and perspiringheavily. A total of 2-3 hours per week of aerobic (causing you to bemoderately short of breath) exercise is sufficient to improve your health.Talk to us before you begin a new exercise program, if you have heart diseaseor experience shortness of breath or chest pain.REDUCE STRESSChronic emotional and physical stress leads to disease. Ways of reducingstress include meditation, visualization, prayer, yoga and other forms ofrelaxation therapy. Consistency is the christianson. Find a technique that works foryou and do it every day.CULTIVATE RELATIONSHIPSLoneliness and isolation have a major negative impact on health. Seek outothers who can love, care for and nurture you. Avoid hurtful relationships.MAINTAIN IDEAL BODY WEIGHTThe best way to do this is to do all the things above. Our bodies naturallyfind the right weight if we keep moving and feed ourselves the right food. Ifyour BMI is greater than 25, we strongly recommend a referral to a weightmanagement program. Please speak to us or your family physician aboutavailable programs.AVOID NICOTINE IN ALL FORMSThis includes all tobacco products, whether chewed, smoked, vaped, or rubbed onthe skin. Smoking cessation programs, which can make use of tobaccosubstitutes, medications to suppress cravings and behavior management, areavailable. Please contact your family physician about programs in your area.Referring Provider: AVELINO NGUYỄN [[id number]]Allergies As of Date: 12/15/2017 Noted Allergy ReactionPROSCAR (FINASTERIDE) 07/02/2010 2 - RashDate Reviewed: 12/15/2017Reviewed by: René (Rn) CEFERINO Lakhani - Fully AssessedReason for Visit: Follow Up [171] Cmt: 6 monthPrimary Visit Diagnosis:ASHD (arteriosclerotic heart disease) [I25.10] Other Visit Diagnosis:Hypertension, essential [I10]Prescriptions as of 12/15/2017 Sig: BLOOD SUGAR DIAGNOSTIC STRIPS Test blood sugar(s) two times* LISINOPRIL 10 MG TABLET Take 1 tablet by mouth once d* PEN NEEDLE, DIABETIC 31 GAUGE* 1 Each twice daily. Diagnosis* WARFARIN 5 MG TABLET Take 2 tablets by mouth once * SPIRONOLACTONE 25 MG TABLET Take 1 tablet by mouth once d* LIRAGLUTIDE 0.6 MG/0.1 ML (18* Inject 1.8 mg subcutaneously * METFORMIN 1,000 MG TABLET Take 1 tablet by mouth twice * DOXAZOSIN 2 MG TABLET Take 1 tablet by mouth daily * LOVASTATIN 40 MG TABLET Take 1 tablet by mouth daily * FUROSEMIDE 20 MG TABLET Take 1 tablet by mouth twice * SOTALOL 80 MG TABLET Take 1 tablet by mouth twice * GLIPIZIDE ER 10 MG TABLET, EX* Take 1 tablet by mouth once d* * VITAMIN E 200 UNIT CAPSULE Take one(1) tablet daily. 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 Unspecified Sleep Disturbance [G47.9] INVALID FOR*09/12/2015 More... 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 Anemia [D64.9] INVALID FOR* OA (osteoarthritis) of knee [M17.10] INVALID FOR* More... More... Atrial fibrillation (HCC) [I48.91] INVALID FOR* 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] INVALID FOR* RBBB (right bundle branch block) [I45.10] INVALID FOR* Encounter for monitoring anti-arrhythmic therap*INVALID FOR* COPD with exacerbation (HCC) [J44.1] INVALID FOR* CKD (chronic kidney disease) stage 3, GFR 30-59*INVALID FOR* Other instructions from your clinician: LIFESTYLE CHANGE A healthy lifestyle is the most important component of your overall treatment plan. Please give serious thought to the following areas and commit to making extermination inspector changes. EAT A WHOLE FOOD, PLANT BASED DIET The nutrition your body gets is more important than the medicine you take. What matters most is the overall way you eat. We encourage you to minimize the use of animal products (which include dairy and all meats except fatty fish) and use whole, unprocessed plant foods to provide your protein, vitamins and other nutrients. We have a lot of information to share with you on this topic. We also hold Shared Medical Appointments, where you can come visit with Dr. Nguyễn in the company of other patients and spend over an hour talking about the challenges of changing the way you eat. This is not a diet. It is a way of life that you will keep with you. EXERCISE REGULARLY It is not important to spend hours in the gym, lifting weights and perspiring heavily. A total of 2-3 hours per week of aerobic (causing you to be moderately short of breath) exercise is sufficient to improve your health. Talk to us before you begin a new exercise program, if you have heart disease or experience shortness of breath or chest pain. REDUCE STRESS Chronic emotional and physical stress leads to disease. Ways of reducing stress include meditation, visualization, prayer, yoga and other forms of relaxation therapy. Consistency is the christianson. Find a technique that works for you and do it every day. CULTIVATE RELATIONSHIPS Loneliness and isolation have a major negative impact on health. Seek out others who can love, care for and nurture you. Avoid hurtful relationships. MAINTAIN IDEAL BODY WEIGHT The best way to do this is to do all the things above. Our bodies naturally find the right weight if we keep moving and feed ourselves the right food. If your BMI is greater than 25, we strongly recommend a referral to a weight management program. Please speak to us or your family physician about available programs. AVOID NICOTINE IN ALL FORMS This includes all tobacco products, whether chewed, smoked, vaped, or rubbed on the skin. Smoking cessation programs, which can make use of tobacco substitutes, medications to suppress cravings and behavior management, are available. Please contact your family physician about programs in your area.Classic SmartForms filed during this visit:Extended VitalsEncounter Number: [id number] Status:Closed by AVELINO NGUYỄN MD on 12/15/17 Normal [facility] PROGRESSon 12-15-2017 PROGRESS HNO ID: [id number] thor: Avelino Quick: (none)Author Type: PhysicianType: Progress NotesFiled: 12/15/2017 12:15 PMNote Text:PERTINENT CARDIAC HISTORYASHD - CABGx2 2007Pulmonary embolism - post opHTNHLDMRBBBAtrial flutterOSA - CPAPCHF - diastolicADHERENCE TO GUIDELINESACE-I or ARB for HF with prior LVEF<40 (NQF 0081) - N/AASA or Plavix for ASHD (NQF 0067) - metBeta carolin for ASHD with prior ME or prior LVEF<40 (NQF 0070) - N/ABeta carolin for HF with prior LVEF<40 (NQF 0083) - N/AACE-I or ARB for ASHD with DM or prior LVEF<40 (NQF 0066) - metStatin therapy for ASHD or FHL or DM - metBMI documented and plan if >25 (NQF 0421) - lifestyle recommendation formTobacco use screening and referral (NQF 0028) - lifestyle recommendationformRecommend ation for whole food, plant based diet - lifestyle recommendationformCLINICAL IMPRESSION/PLAN:Federico Hu has stable cardiac issues. His atrial flutter iswell-controlled. He is advised to continue his current medication.I've encouraged him to increase his activity to get his weight underbetter control.Laboratory studies are due in January.I will see him in 8 months or as neededWritten and verbal health teaching given to patient, patient verbalizesunderstanding and agrees with treatment plan.This note was generated using MyMedMatch voice recognition system, and theremay be some incorrect words, spellings, and punctuation that were notnoted in checking the note before saving.DIAGNOSIS FOR VISIT:ASHDHISTORY OF PRESENT ILLNESSFederico Hu returns for follow-up of multiple cardiac issues, asnoted above.He's had no recent chest pain. Exercise tolerance has been limited butstable. He does not attempt to exercise on a regular basis. He's had nosyncope, TIAs, amaurosis or claudication. He's had minimal palpitations.ALLERGIES:JULIO RGIESAllergen Reactions- Proscar [Finasterid* RashCURRENT OUTPATIENT MEDICATIONS:blood sugar diagnostic (FREESTYLE LITE STRIPS) test strip Test bloodsugar(s) two times a day. Dx: 250.00, E11.65, Insulin: No. Fluctuatingblood glucose.lisinopril (ZESTRIL, PRINIVIL) 10 mg tablet Take 1 tablet by mouth oncedaily.insulin needles, DISPOSABLE, (PEN NEEDLE) 31 gauge x 5/16 ndle 1 Eachtwice daily. Diagnosis: E11.49warfarin (COUMADIN) 5 mg tablet Take 2 tablets by mouth once daily. Or asdirectedspironolactone (ALDACTONE) 25 mg tablet Take 1 tablet by mouth once daily.liraglutide (VICTOZA 2-GILSON) 0.6 mg/0.1 mL (18 mg/3 mL) pnij Inject 1.8 mgsubcutaneously once daily.metFORMIN (GLUCOPHAGE) 1,000 mg tablet Take 1 tablet by mouth twice daily.doxazosin (CARDURA) 2 mg tablet Take 1 tablet by mouth daily at bedtime.Lovastatin 40 mg tablet Take 1 tablet by mouth daily at bedtime.furosemide (LASIX) 20 mg tablet Take 1 tablet by mouth twice daily.sotalol (BETAPACE) 80 mg tablet Take 1 tablet by mouth twice daily.glipiZIDE XL (GLUCOTROL XL) 10 mg 24 hr tablet Take 1 tablet by mouth oncedaily.VITAMIN E 200 UNIT CAP Take one(1) tablet daily.MULTIVITAMIN TAB Take one(1) tablet daily.PHYSICAL EXAMINATION:VITAL SIGNS: BP 120/58 Pulse 76 Ht 6' 1 (1.85m) Wt 339 lb 14.4 oz(154.2kg) BMI 44.85 kg/(m2).Chest: Clear to percussion and auscultation. Trachea is midline. Airentry is equal. Cardiac: Regular rhythm. S1 and S2 are normal. PMI isnondisplaced. There are no murmurs, rubs or gallops. Carotids are briskwithout bruits. JVP is less than 10 cm. Abdomen: Soft and nontender.There is morbid obesity. There are no pulsatile masses or bruits. Noliver enlargement. Bowel sounds are active. Extremities: No edema.Pulses are intact and symmetrical.Recent labs reviewed. Renal function is impaired but stable. TSH isnormal.Electronically Signed:Avelino Nguyễn MDDecember 15, 2017 9:03 [facility]: Nithin Acevedo MD [facility] 09-11-2017 [facility] Telephone (AGCARDWST) FEDERICO HU ( ) 1935 MDate Time Provider Jhtawgasyo16/26/17 AVELINO NGUYỄN AGCARDWST During your visit today, we recorded the following information about you:René Lakhani, RN, RN 09/11/2017 5:29 PM SignedINR: 4.3Current warfarin dose 10mg daily.Avelino gNuyễn MD 09/11/2017 5:30 PM SignedHold one dose, then decrease to cycle of 7.5-10-10 milligrams. Recheck one week.Ida Bailey, RN, RN 09/11/2017 5:40 PM SignedPatient's spouse verbalizes understanding and will relay to patient.Allergies As of Date: 09/11/2017 Noted Allergy ReactionPROSCAR (FINASTERIDE) 07/02/2010 2 - RashDate Reviewed: 06/13/2017Reviewed by: Anthony Ortiz - Fully AssessedReason for Visit: Anticoagulation [8]Prescriptions as of 09/11/2017 Sig: WARFARIN 5 MG TABLET Take 2 tablets by mouth once * SPIRONOLACTONE 25 MG TABLET Take 1 tablet by mouth once d* LIRAGLUTIDE 0.6 MG/0.1 ML (18* Inject 1.8 mg subcutaneously * METFORMIN 1,000 MG TABLET Take 1 tablet by mouth twice * DOXAZOSIN 2 MG TABLET Take 1 tablet by mouth daily * LOVASTATIN 40 MG TABLET Take 1 tablet by mouth daily * FUROSEMIDE 20 MG TABLET Take 1 tablet by mouth twice *X LIRAGLUTIDE 0.6 MG/0.1 ML (18* Inject 1.2 mg subcutaneously * SOTALOL 80 MG TABLET Take 1 tablet by mouth twice * GLIPIZIDE ER 10 MG TABLET, EX* Take 1 tablet by mouth once d* LISINOPRIL 10 MG TABLET Take 1 tablet by mouth once d*X PREDNISONE ORAL Take by mouth. Patient has o* BLOOD SUGAR DIAGNOSTIC STRIPS Test blood sugar(s) two times*X PEN NEEDLE, DIABETIC 31 GAUGE* 1 Each twice daily. * VITAMIN E 200 UNIT CAPSULE Take one(1) tablet daily. 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 Unspecified Sleep Disturbance [G47.9] INVALID FOR*09/12/2015 More... 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 Anemia [D64.9] INVALID FOR* OA (osteoarthritis) of knee [M17.10] INVALID FOR* More... More... Atrial fibrillation (HCC) [I48.91] INVALID FOR* 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] INVALID FOR* RBBB (right bundle branch block) [I45.10] INVALID FOR* Encounter for monitoring anti-arrhythmic therap*INVALID FOR* COPD with exacerbation (HCC) [J44.1] INVALID FOR* Status:Closed by RENÉ LAKHANI on 09/11/17 Normal [facility] Vital Signs Date Time Vital Sign Value Performing Clinician Facility 07-26-2025 12:24-0400 Body mass index (BMI) [Ratio] 49.09 kg/m2 Nithin Acevedo MD Work Phone: [facility] 07-26-2025 12:24-0400 Body temperature 96.3 [degF] Nithin Acevedo MD Work Phone: [facility] 07-26-2025 12:24-0400 Body weight 161.9 kg Nithin Acevedo MD Work Phone: [facility] 07-26-2025 12:24-0400 Diastolic blood pressure 45 mm[Hg] Nithin Acevedo MD Work Phone: [facility] 07-26-2025 12:24-0400 Heart rate 64 /min Nithin Acevedo MD [facility] [facility] [place] 07-26-2025 12:24-0400 SaO2% (BldA) [Mass fraction] 96 % Nithin Acevedo MD Work Phone: [facility] [place] 07-26-2025 12:24-0400 Systolic blood pressure 103 mm[Hg] Nithin Acevedo MD Work Phone: [facility] [place] 07-23-2025 14:41-0400 Body temperature 98.4 [degF] Dr. Nithin Acevedo MD Work Phone: [facility] 07-23-2025 14:41-0400 Diastolic blood pressure 54 mm[Hg] Dr. Nithin Acevedo MD Work Phone: [facility] 07-23-2025 14:41-0400 Heart rate 73 /min Dr. iNthin Acevedo MD Work Phone: [facility] 07-23-2025 14:41-0400 Respiratory rate 18 /min Dr. Nithin Acevedo MD Work Phone: [facility] 07-23-2025 14:41-0400 SaO2% (BldA) [Mass fraction] 93 % Dr. Nithin Acevedo MD Work Phone: [facility] 07-23-2025 14:41-0400 Systolic blood pressure 140 mm[Hg] Dr. Nithin Acevedo MD Work Phone: 0(471)[phone] [place] [address] 07-21-2025 14:58-0400 Body height 185.[address] Nithin Acevedo MD Work Phone: 3(656)227-313184 [place] [address] 07-21-2025 14:58-0400 Body weight 166.[address] Nithin Acevedo MD Work Phone: 5(534)130-513484 [place] [address] 07-21-2025 12:32-0400 Body mass index (BMI) [Ratio] 48.3 kg/m2 Dr. Nithin Acevedo MD Work Phone: 1(037)211-295684 [place] [address] 07-21-2025 11:57-0400 Body temperature 97.9 [degF] Dr. Nithin Acevedo MD Work Phone: 3(800)291-534084 [place] [address] 07-21-2025 11:57-0400 Diastolic blood pressure 51 mm[Hg] Dr. Nithin Acevedo MD Work Phone: 4(300)843-124584 [place] [address] 07-21-2025 11:57-0400 Heart rate 58 /min Dr. Nithin Acevedo MD Work Phone: 0(311)338-262384 [place] [address] 07-21-2025 11:57-0400 Respiratory rate 17 /min Dr. Nithin Acevedo MD Work Phone: 3(792)423-262884 [place] [address] 07-21-2025 11:57-0400 SaO2% (BldA) [Mass fraction] 95 % Dr. Nithin Acevedo MD Work Phone: 9(298)588-265084 [place] [address] 07-21-2025 11:57-0400 Systolic blood pressure 99 mm[Hg] Dr. Nithin Acevedo MD Work Phone: 1(671)339-112184 [place] [address] 07-21-2025 10:43-0400 Body mass index (BMI) [Ratio] 51.3 kg/m2 Dr. Nithin Acevedo MD Work Phone: 3(857)241-579884 [place] [address] 07-21-2025 10:43-0400 Body weight [address] Nithin Acevedo MD Work Phone: 6(567)460-695184 [place] [address] 07-21-2025 10:26-0400 Body height 180.[address] Nithin Acevedo MD Work Phone: [facility] 04-01-2025 11:13-0400 Body mass index (BMI) [Ratio] 47.58 kg/m2 Gisell Click PARK WORKER SUPERVISOR.HERBICIDE SPRAYER Work Phone: [facility] [place] 04-01-2025 11:130400 Body weight 156.94 kg Gisell Click PARK WORKER SUPERVISOR.HERBICIDE SPRAYER Work Phone: [facility] [place] Comment on above: approx 04-01-2025 11:13-0400 Diastolic blood pressure 64 mm[Hg] Gisell Click PARK WORKER SUPERVISOR.HERBICIDE SPRAYER Work Phone: [facility] [place] 04-01-2025 11:13-0400 Heart rate 57 /min Gisell Click PARK WORKER SUPERVISOR.HERBICIDE SPRAYER Work Phone: [facility] [place] 04-01-2025 11:13-0400 SaO2% (BldA) [Mass fraction] 95 % Gisell Click PARK WORKER SUPERVISOR.HERBICIDE SPRAYER Work Phone: [facility] [place] 04-01-2025 11:13-0400 Systolic blood pressure 106 mm[Hg] Gisell Click PARK WORKER SUPERVISOR.HERBICIDE SPRAYER Work Phone: [facility] [place] 03-07-2025 11:09-0400 Body mass index (BMI) [Ratio] 47.6 kg/m2 Katherin Michelle PARK WORKER SUPERVISOR.HERBICIDE SPRAYER Work Phone: [facility] [place] 03-07-2025 11:09-0400 Body weight 157 kg Katherin Michelle PARK WORKER SUPERVISOR.HERBICIDE SPRAYER Work Phone: [facility] [place] 03-07-2025 11:09-0400 Diastolic blood pressure 52 mm[Hg] Katherin Michelle PARK WORKER SUPERVISOR.HERBICIDE SPRAYER Work Phone: [facility] [place] 03-07-2025 11:09-0400 Heart rate 66 /min Katherin CallahanMichelle PARK WORKER SUPERVISOR.HERBICIDE SPRAYER Work Phone: [facility] [place] 03-07-2025 11:09-0400 Respiratory rate 18 /min Katherin Mckinnon APRN.RAJWINDER Work Phone: [facility] [place] 03-07-2025 11:09-0400 SaO2% (BldA) [Mass fraction] 96 % Katherin Mckinnon APRN.HERBICIDE SPRAYER Work Phone: [facility] [place] 03-07-2025 11:09-0400 Systolic blood pressure 100 mm[Hg] Katherin Mckinnon APRN.HERBICIDE SPRAYER Work Phone: [facility] [place] 02-15-2025 08:50-0400 Body height 181.6 cm Pacc 1 Work Phone: [facility] [place] 02-15-2025 08:50-0400 Body mass index (BMI) [Ratio] 47.06 kg/m2 Pacc 1 Work Phone: [facility] [place] 02-15-2025 08:50-0400 Body weight 155.22 kg Pacc 1 Work Phone: [facility] [place] 02-15-2025 08:50-0400 Diastolic blood pressure 72 mm[Hg] Pacc 1 Work Phone: [facility] [place] 02-15-2025 08:50-0400 Heart rate 73 /min Pacc 1 Work Phone: [facility] [place] 02-15-2025 08:50-0400 Respiratory rate 22 /min Pacc 1 Work Phone: [facility] [place] 02-15-2025 08:50-0400 SaO2% (BldA) [Mass fraction] 95 % Pacc 1 Work Phone: [facility] [place] 02-15-2025 08:50-0400 Systolic blood pressure 116 mm[Hg] Pacc 1 Work Phone: [facility] [place] 01-21-2025 10:53-0500 Body height 181.6 cm Viet Lee MD Work Phone: [facility] [place] 01-21-2025 10:53-0500 Body mass index (BMI) [Ratio] 46.35 kg/m2 Viet Lee MD Work Phone: [facility] [place] 01-21-2025 10:53-0500 Body weight 152.86 kg Viet Lee MD Work Phone: [facility] [place] 01-21-2025 10:53-0500 Diastolic blood pressure 66 mm[Hg] Viet Lee MD Work Phone: [facility] [place] 01-21-2025 10:53-0500 Heart rate 52 /min Viet Lee MD Work Phone: [facility] [place] 01-21-2025 10:53-0500 Respiratory rate 17 /min Viet Lee MD Work Phone: [facility] [place] 01-21-2025 10:53-0500 SaO2% (BldA) [Mass fraction] 96 % Viet Lee MD Work Phone: [facility] [place] 01-21-2025 10:53-0500 Systolic blood pressure 130 mm[Hg] Viet Lee MD Work Phone: [facility] [place] 01-21-2025 10:52-0500 Body height 181.6 cm Pulm Wstr Work Phone: [facility] [place] 01-21-2025 10:52-0500 Body mass index (BMI) [Ratio] 46.35 kg/m2 Pulm Wstr Work Phone: [facility] [place] 01-21-2025 10:52-0500 Body weight 152.86 kg Pulm Wstr Work Phone: [facility] [place] 01-21-2025 10:52-0500 Heart rate 52 /min Pulm Wstr Work Phone: [facility] [place] 01-21-2025 10:52-0500 SaO2% (BldA) [Mass fraction] 96 % Pulm Wstr Work Phone: [facility] [place] 12-13-2024 14:40-0500 Body height 177 cm Homer Carpio APRN.HERBICIDE SPRAYER, PhD Work Phone: [facility] [place] 12-13-2024 14:40-0500 Body mass index (BMI) [Ratio] 50.5 kg/m2 [facility] [employer] WORKER SUPERVISOR.HERBICIDE SPRAYER, PhD Work Phone: [facility] [place] 12-13-2024 14:40-0500 Body temperature 97.5 [degF] [facility] P[employer] WORKER SUPERVISOR.HERBICIDE SPRAYER, PhD Work Phone: [facility] [place] 12-13-2024 14:40-0500 Body weight 158.2 kg [facility] WORKER SUPERVISOR.HERBICIDE SPRAYER, PhD Work Phone: [facility] [place] 12-13-2024 14:40-0500 Diastolic blood pressure 58 mm[Hg] [facility] [employer] WORKER SUPERVISOR.HERBICIDE SPRAYER, PhD Work Phone: [facility] [place] 12-13-2024 14:40-0500 Heart rate 80 /min [facility] WORKER SUPERVISOR.HERBICIDE SPRAYER, PhD Work Phone: [facility] [place] 12-13-2024 14:40-0500 Respiratory rate 18 /min [facility] [employer] WORKER SUPERVISOR.HERBICIDE SPRAYER, PhD Work Phone: [facility] [place] 12-13-2024 14:40-0500 SaO2% (BldA) [Mass fraction] 97 % [facility] [employer] WORKER SUPERVISOR.HERBICIDE SPRAYER, PhD Work Phone: [facility] [place] 12-13-2024 14:40-0500 Systolic blood pressure 109 mm[Hg] [facility] WORKER SUPERVISOR.HERBICIDE SPRAYER, PhD Work Phone: [facility] [place] 12-13-2024 12:19-0500 Body height 178 cm Kristin Guevara MD Work Phone: [facility] [place] 12-13-2024 12:19-0500 Body mass index (BMI) [Ratio] 49.93 kg/m2 Kristin Guevara MD Work Phone: [facility] [place] 12-13-2024 12:19-0500 Body weight 158.2 kg Kristin Guevara MD Work Phone: [facility] [place] 12-13-2024 12:19-0500 Diastolic blood pressure 48 mm[Hg] Kristin Guevara MD Work Phone: [facility] [place] 12-13-2024 12:19-0500 Heart rate 61 /min Kristin Guevara MD Work Phone: [facility] [place] 12-13-2024 12:19-0500 Systolic blood pressure 123 mm[Hg] Kristin Guevara MD Work Phone: [facility] [place] 11-26-2024 16:27-0500 Body mass index (BMI) [Ratio] 46.04 kg/m2 Nithin Acevedo MD Work Phone: [facility] [place] 11-26-2024 16:27-0500 Body weight 158.3 kg Nithin Acevedo MD Work Phone: [facility] [place] 11-26-2024 16:27-0500 Diastolic blood pressure 50 mm[Hg] Nithin Acevedo MD Work Phone: [facility] [place] 11-26-2024 16:27-0500 Heart rate 65 /min Nithin Acevedo MD Work Phone: [facility] [place] 11-26-2024 16:27-0500 SaO2% (BldA) [Mass fraction] 98 % Nithin Acevedo MD Work Phone: [facility] [place] 11-26-2024 16:27-0500 Systolic blood pressure 120 mm[Hg] Nithin Acevedo MD Work Phone: [facility] [place] 11-05-2024 11:19-0500 Body mass index (BMI) [Ratio] 46.28 kg/m2 Katherin Mckinnon APRN.HERBICIDE SPRAYER Work Phone: [facility] [place] 11-05-2024 11:19-0500 Body weight 159.1 kg Katherin Mckinnon PARK WORKER SUPERVISOR.HERBICIDE SPRAYER Work Phone: [facility] [place] 11-05-2024 11:19-0500 Diastolic blood pressure 50 mm[Hg] Katherin Mckinnon APRN.HERBICIDE SPRAYER Work Phone: [facility] [place] 11-05-2024 11:19-0500 Heart rate 69 /min Katherin Mckinnon APRN.HERBICIDE SPRAYER Work Phone: [facility] [place] 11-05-2024 11:19-0500 SaO2% (BldA) [Mass fraction] 94 % Katherin Michelle PARK WORKER SUPERVISOR.HERBICIDE SPRAYER Work Phone: [facility] [place] 11-05-2024 11:19-0500 Systolic blood pressure 110 mm[Hg] Katherin Michelle PARK WORKER SUPERVISOR.HERBICIDE SPRAYER Work Phone: [facility] [place] 09-01-2024 12:45-0400 Body height 185.4 cm Velia Taliercio DO Work Phone: [facility] [place] 09-01-2024 12:45-0400 Body mass index (BMI) [Ratio] 47.93 kg/m2 Velia Taliercio DO Work Phone: [facility] [place] 09-01-2024 12:45-0400 Body weight 164.8 kg Velia Taliercio DO Work Phone: [facility] [place] 09-01-2024 12:45-0400 Diastolic blood pressure 60 mm[Hg] Velia Taliercio DO Work Phone: [facility] [place] 09-01-2024 12:45-0400 Heart rate 65 /min Velia Taliercio DO Work Phone: [facility] [place] 09-01-2024 12:45-0400 Systolic blood pressure 124 mm[Hg] Velia Taliercio DO Work Phone: [facility] [place] 07-28-2024 10:54-0400 Diastolic blood pressure 64 mm[Hg] Katherin Michelle PARK WORKER SUPERVISOR.HERBICIDE SPRAYER Work Phone: [facility] [place] 07-28-2024 10:54-0400 Heart rate 73 /min Katherin Michelle PARK WORKER SUPERVISOR.HERBICIDE SPRAYER Work Phone: [facility] [place] 07-28-2024 10:54-0400 Respiratory rate 20 /min Katherin Michelle PARK WORKER SUPERVISOR.HERBICIDE SPRAYER Work Phone: [facility] [place] 07-28-2024 10:54-0400 SaO2% (BldA) [Mass fraction] 94 % Katherin Michelle PARK WORKER SUPERVISOR.HERBICIDE SPRAYER Work Phone: [facility] [place] 07-28-2024 10:54-0400 Systolic blood pressure 118 mm[Hg] Katherin Mckinnon APRN.HERBICIDE SPRAYER Work Phone: [facility] [place] 03-27-2024 15:08-0400 Body temperature 98.3 [degF] [facility] 03-27-2024 15:08-0400 Diastolic blood pressure 72 mm[Hg] [facility] 03-27-2024 15:08-0400 Heart rate 74 /min [facility] 03-27-2024 15:08-0400 Respiratory rate 16 /min [facility] 03-27-2024 15:08-0400 SaO2% (BldA) [Mass fraction] 99 % [facility] 03-27-2024 15:08-0400 Systolic blood pressure 130 mm[Hg] [facility] 03-27-2024 12:34-0400 Body mass index (BMI) [Ratio] 50.8 kg/m2 [facility] 03-27-2024 12:34-0400 Body weight 165.4 kg [facility] 03-27-2024 12:33-0400 Body height 180.34 cm [facility] 03-27-2024 12:03-0400 Body temperature 97.11 [degF] Sujata Begum APRN.HERBICIDE SPRAYER Work Phone: [facility] [place] 03-27-2024 12:03-0400 Diastolic blood pressure 76 mm[Hg] Sujata Begum APRN.HERBICIDE SPRAYER Work Phone: [facility] [place] 03-27-2024 12:03-0400 Heart rate 82 /min Sujata Begum APRN.HERBICIDE SPRAYER Work Phone: [facility] [place] 03-27-2024 12:03-0400 Respiratory rate 20 /min Sujata Begum APRN.HERBICIDE SPRAYER Work Phone: [facility] [place] 03-27-2024 12:03-0400 SaO2% (BldA) [Mass fraction] 97 % Sujata Begum APRN.HERBICIDE SPRAYER Work Phone: [facility] [place] 03-27-2024 12:03-0400 Systolic blood pressure 121 mm[Hg] Sujata Begum PARK WORKER SUPERVISOR.HERBICIDE SPRAYER Work Phone: [facility] [place] 10-13-2023 14:55-0500 Body height 181.6 cm Katherin Older PARK WORKER SUPERVISOR.HERBICIDE SPRAYER Work Phone: [facility] [place] 10-13-2023 14:55-0500 Body weight 169.19 kg Katherin Older PARK WORKER SUPERVISOR.HERBICIDE SPRAYER Work Phone: [facility] [place] 10-13-2023 14:55-0500 Diastolic blood pressure 66 mm[Hg] Katherin Older PARK WORKER SUPERVISOR.HERBICIDE SPRAYER Work Phone: [facility] [place] 10-13-2023 14:55-0500 Heart rate 52 /min Katherin Older PARK WORKER SUPERVISOR.HERBICIDE SPRAYER Work Phone: [facility] [place] 10-13-2023 14:55-0500 Respiratory rate 16 /min Katherin Older PARK WORKER SUPERVISOR.HERBICIDE SPRAYER Work Phone: [facility] [place] 10-13-2023 14:55-0500 SaO2% (BldA) [Mass fraction] 97 % Katherin Older PARK WORKER SUPERVISOR.HERBICIDE SPRAYER Work Phone: [facility] [place] 10-13-2023 14:55-0500 Systolic blood pressure 128 mm[Hg] Katherin Older PARK WORKER SUPERVISOR.HERBICIDE SPRAYER Work Phone: [facility] [place] 07-07-2022 08:32-0400 Body temperature 97.88 [degF] LAURENT MYERS MD [facility] 07-07-2022 08:32-0400 Diastolic blood pressure 66 mm[Hg] LAURENT MYERS MD [facility] 07-07-2022 08:32-0400 Heart rate 62 /min LAURENT MYERS MD [facility] 07-07-2022 08:32-0400 Reason For Taking VItal Signs LAURENT MYERS MD [facility] 07-07-2022 08:32-0400 Respiratory rate 20 /min LAURENT MYERS MD [address] [place] [address] 07-07-2022 08:32-0400 Systolic blood pressure 144 mm[Hg] LAURENT MYERS MD [address] [place] [address] 07-07-2022 00:37-0400 Body temperature 98.06 [degF] LAURENT MYERS MD [address] [place] [address] 07-07-2022 00:37-0400 Diastolic blood pressure 59 mm[Hg] LAURENT MYERS MD [address] [place] [address] 07-07-2022 00:37-0400 Heart rate 71 /min LAURENT MYERS MD [address] [place] [address] 07-07-2022 00:37-0400 Systolic blood pressure 121 mm[Hg] LAURENT MYERS MD [address] [place] [address] 07-06-2022 15:10-0400 Body temperature 98.24 [degF] LAURENT MYERS MD [address] [place] [address] 07-06-2022 15:10-0400 Diastolic blood pressure 54 mm[Hg] LAURENT MYERS MD [address] [place] [address] 07-06-2022 15:10-0400 Heart rate 66 /min LAURENT MYERS MD [address] [place] [address] 07-06-2022 15:10-0400 Reason For Taking VItal Signs LAURENT MYERS MD [address] [place] [address] 07-06-2022 15:10-0400 Respiratory rate 16 /min LAURENT MYERS MD [address] [place] [address] 07-06-2022 15:10-0400 Systolic blood pressure 136 mm[Hg] LAURENT MYERS MD [address] [place] [address] 07-06-2022 08:01-0400 Heart rate 73 /min LUARENT MYERS MD [address] [place] [address] 07-06-2022 08:01-0400 Mean blood pressure 71 mm[Hg] LAURENT MYERS MD [address] [place] [address] 07-06-2022 08:01-0400 Respiratory rate 18 /min LAURENT MYERS MD [address] [place] [address] 07-05-2022 21:15-0400 Reason For Taking VItal Signs LAURENT MYERS MD [address] [place] [address] 07-04-2022 15:15-0400 Body temperature 98.42 [degF] LAURENT MYERS MD [address] [place] [address] 07-03-2022 04:41-0400 Heart rate 77 /min LAURENT MYERS MD [address] [place] [address] 07-03-2022 00:21-0400 Body temperature 98.06 [degF] LAURENT MYERS MD [address] [place] [address] 07-02-2022 23:58-0400 Heart rate 75 /min LAURENT MYERS MD [address] [place] [address] 07-02-2022 15:05-0400 Heart rate 72 /min LAURENT MYERS MD [address] [place] [address] 07-02-2022 14:58-0400 Body height 182.9 cm LAURENT MYERS MD [address] [place] [address] 07-02-2022 14:58-0400 Body weight 156.5 kg LAURENT MYERS MD [address] [place] [address] 07-02-2022 14:58-0400 Body weight 46.78 kg/m2 LAURENT MYERS MD [address] [place] [address] 07-02-2022 13:46-0400 Body temperature 96.8 [degF] LAURENT MYERS MD [address] [place] [address] 07-02-2022 13:46-0400 Diastolic Blood Pressure NBP 61 1 LAURENT MYERS MD [address] [place] [address] 07-02-2022 13:46-0400 Heart rate 73 /min LAURENT MYERS MD [facility] 07-02-2022 13:46-0400 Mean blood pressure 72 mm[Hg] LAURENT MYERS MD [facility] 07-02-2022 13:46-0400 Systolic Blood Pressure NBP 133 1 LAURENT MYERS MD [address] [place] [address] 07-02-2022 13:31-0400 Diastolic Blood Pressure NBP 58 1 LAURENT MYERS MD [address] [place] [address] 07-02-2022 13:31-0400 Mean blood pressure 71 mm[Hg] LAURENT MYERS MD [address] [place] [address] 07-02-2022 13:31-0400 Systolic Blood Pressure NBP 131 1 LAURENT MYERS MD [facility] 07-02-2022 13:15-0400 Diastolic Blood Pressure NBP 52 1 LAURENT MYERS MD [address] [place] [address] 07-02-2022 13:15-0400 Mean blood pressure 70 mm[Hg] LAURENT MYERS MD [facility] 07-02-2022 13:15-0400 Systolic Blood Pressure NBP 125 1 LAURENT MYERS MD [facility] 07-02-2022 12:21-0400 Body temperature 97.16 [degF] LAURENT MYERS MD [facility] 07-02-2022 12:05-0400 Body temperature 96.76 [degF] LAURENT MYERS MD [facility] 07-02-2022 12:00-0400 Body temperature 96.78 [degF] LAURENT MYERS MD [facility] 07-02-2022 11:55-0400 Body temperature 96.8 [degF] LAURENT MYERS MD [facility] 07-02-2022 08:35-0400 Body height 182.9 cm LAURENT MYERS MD [facility] 07-02-2022 08:35-0400 Body temperature 97.34 [degF] LAURENT MYERS MD [facility] 07-02-2022 08:35-0400 Body weight 156.5 kg LAURENT MYERS MD [facility] 07-02-2022 08:35-0400 Mean blood pressure 83 mm[Hg] LAURENT MYERS MD [facility] 06-26-2022 11:40-0400 Body height 180 cm LAURENT MYERS MD [facility] 06-26-2022 11:40-0400 Body temperature 96.8 [degF] LAURENT MYERS MD [facility] 06-26-2022 11:40-0400 Body weight 160.6 kg LAURENT MYERS MD [facility] 06-26-2022 11:40-0400 diastolic 69 mm[Hg] LAURENT MYERS MD [facility] 06-26-2022 11:40-0400 Heart rate 79 /min LAURENT MYERS MD [facility] 06-26-2022 11:40-0400 systolic 146 mm[Hg] LAURENT MYERS MD [facility] 06-12-2022 14:06-0400 Body height 180.3 cm Nithin Acevedo MD Work Phone: [facility] [place] 06-12-2022 14:06-0400 Body temperature 96.8 [degF] Nithin Acevedo MD Work Phone: [facility] [place] 06-12-2022 14:06-0400 Body weight 155.13 kg Nithin Acevedo MD Work Phone: [facility] [place] 06-12-2022 14:06-0400 Diastolic blood pressure 68 mm[Hg] Nithin Acevedo MD Work Phone: [facility] 06-12-2022 14:06-0400 Heart rate 64 /min Nithin Acevedo MD Work Phone: [facility] [place] 06-12-2022 14:06-0400 Respiratory rate 18 /min Nithin Acevedo MD Work Phone: [facility] [place] 06-12-2022 14:06-0400 Systolic blood pressure 130 mm[Hg] Nithin Acevedo MD Work Phone: [facility] [place] 05-15-2022 16:31-0400 Body temperature 97.7 [degF] LAURENT MYERS MD [facility] 05-15-2022 16:31-0400 Diastolic blood pressure 57 mm[Hg] LAURENT MYERS MD [facility] 05-15-2022 16:31-0400 Heart rate 65 /min LAURENT MYERS MD [facility] 05-15-2022 16:31-0400 Reason For Taking VItal Signs LAURENT MYERS MD [facility] 05-15-2022 16:31-0400 Respiratory rate 16 /min LAURENT MYERS MD [facility] 05-15-2022 16:31-0400 Systolic blood pressure 108 mm[Hg] LAURENT MYERS MD [facility] 05-15-2022 16:30-0400 Body temperature 97.7 [degF] LAURENT MYERS MD [facility] 05-15-2022 16:30-0400 Diastolic blood pressure 50 mm[Hg] LAURENT MYERS MD [facility] 05-15-2022 16:30-0400 Heart rate 65 /min LAURENT MYERS MD [facility] 05-15-2022 16:30-0400 Systolic blood pressure 90 mm[Hg] LAURENT MYERS MD [facility] 05-15-2022 14:42-0400 Body temperature 97.7 [degF] LAURENT MYERS MD [facility] 05-15-2022 14:42-0400 Diastolic blood pressure 60 mm[Hg] LAURENT MYERS MD [facility] 05-15-2022 14:42-0400 Heart rate 67 /min LAURENT MYERS MD [facility] 05-15-2022 14:42-0400 Reason For Taking VItal Signs LAURENT MYERS MD [facility] 05-15-2022 14:42-0400 Respiratory rate 16 /min LAURENT MYERS MD [facility] 05-15-2022 14:42-0400 Systolic blood pressure 99 mm[Hg] LAURENT MYERS MD [facility] 05-15-2022 11:15-0400 Heart rate 54 /min LAURENT MYERS MD [facility] 05-15-2022 11:15-0400 Reason For Taking VItal Signs LAURENT MYERS MD [facility] 05-15-2022 11:15-0400 Respiratory rate 16 /min LAURENT MYERS MD [facility] 05-14-2022 10:15-0400 Body height 182.9 cm LAURENT MYERS MD [facility] 05-14-2022 10:15-0400 Body weight 159.7 kg LAURENT MYERS MD [facility] 05-14-2022 10:15-0400 Body weight 47.74 kg/m2 LAURENT MYERS MD [facility] 05-14-2022 09:36-0400 Diastolic Blood Pressure NBP 46 1 LAURENT MYERS MD [facility] 05-14-2022 09:36-0400 Heart rate 70 /min LAURENT MYERS MD [facility] 05-14-2022 09:36-0400 Mean blood pressure 62 mm[Hg] LAURENT MYERS MD [facility] 05-14-2022 09:36-0400 Systolic Blood Pressure NBP 114 1 LAURENT MYERS MD [address] [place] [address] 05-14-2022 09:18-0400 Diastolic Blood Pressure NBP 39 1 LAURENT MYERS MD [address] [place] [address] 05-14-2022 09:18-0400 Heart rate 70 /min LAURENT MYERS MD [facility] 05-14-2022 09:18-0400 Mean blood pressure 58 mm[Hg] LAURENT MYERS MD [facility] 05-14-2022 09:18-0400 Systolic Blood Pressure NBP 118 1 LAURENT MYERS MD [facility] 05-14-2022 09:03-0400 Diastolic Blood Pressure NBP 45 1 LAURENT MYERS MD [facility] 05-14-2022 09:03-0400 Mean blood pressure 63 mm[Hg] LAURENT MYERS MD [address] [place] [address] 05-14-2022 09:03-0400 Systolic Blood Pressure NBP 131 1 LAURENT MYERS MD [address] [place] [address] 05-14-2022 08:32-0400 Body temperature 96.8 [degF] LAURENT MYERS MD [address] [place] [id number] 05-14-2022 08:15-0400 Body temperature 96.8 [degF] LAURENT MYERS MD [facility] 05-14-2022 08:10-0400 Body temperature 96.91 [degF] LAURENT MYERS MD [facility] 05-14-2022 08:05-0400 Body temperature 97.02 [degF] LAURENT MYERS MD [facility] 05-14-2022 07:02-0400 Body height 182.9 cm LAURENT MYERS MD [address] [place] [address] 05-14-2022 07:02-0400 Body temperature 96.62 [degF] LAURENT MYERS MD [facility] 05-14-2022 07:02-0400 Body weight 159.7 kg LAURENT MYERS MD [facility] 05-14-2022 07:02-0400 Mean blood pressure 95 mm[Hg] LAURENT MYERS MD [facility] 05-13-2022 08:51-0400 diastolic 68 mm[Hg] LAURENT MYERS MD [facility] 05-13-2022 08:51-0400 systolic 133 mm[Hg] LAURENT MYERS MD [facility] 05-13-2022 08:16-0400 Body height 182.9 cm LAURENT MYERS MD [facility] 05-13-2022 08:16-0400 Body temperature 97.7 [degF] LAURENT MYERS MD [facility] 05-13-2022 08:16-0400 Body weight 162.6 kg LAURENT MYERS MD [facility] 05-13-2022 08:16-0400 diastolic 85 mm[Hg] LAURENT MYERS MD [facility] 05-13-2022 08:16-0400 Heart rate 78 /min LAURENT MYERS MD [facility] 05-13-2022 08:16-0400 systolic 164 mm[Hg] LAURENT MYERS MD [facility] 02-22-2022 11:55-0400 Body weight 163.29 kg Nithin Acevedo MD Work Phone: [facility] Encounters Encounter Date Encounter Type Care Provider Facility Start: 09-17-2025 ambulatory [facility] Facility:[facility] Start: 09-06-2025 End: 09-06-2025 ambulatory Nithin Acevedo Facility:[facility] Start: 08-09-2025 End: 08-09-2025 ambulatory NITHIN ESCOBEDO ACEVEDO [facility] Start: 08-03-2025 End: 08-03-2025 Telephone encounter Nithin Acevedo MD Work Phone: [facility] [place] Comment on above: Insurance Authorizat ion Start: 08-02-2025 End: 08-02-2025 Telephone encounter Nithin Acevedo MD Work Phone: Internal Medicine [place] Comment on above: FYI- [facility] Nurse PO C wound care FYI-No Action Needed Start: 08-02-2025 End: 08-02-[address] Nithin Acevedo MD Work Phone: -Home Health Lab Start: 08-02-2025 End: 08-02-[address] Nithin Acevedo MD -[facility] Start: 08-02-2025 End: 08-02-2025 ambulatory Nithin Acevedo Facility:[facility] Start: 07-28-2025 End: 07-28-2025 Telephone encounter Nithin Acevedo MD Work Phone: [facility] [place] Start: 07-27-2025 End: 07-28-2025 Telephone encounter Nithin Acevedo MD Work Phone: [facility] [place] Comment on above: Home Care Management Start: 07-26-2025 End: 07-26-2025 Patient encounter procedure Nithin Acevedo MD Work Phone: [facility] [place] Comment on above: Chronic diastolic CH F (congestive heart failure) (HCC) (Primary Dx); Encounter for immunization; CKD (chronic kidney disease) stage 4, GFR 15-29 ml/min ([facility]); Anemia due to stage 4 chronic kidney disease ([facility]); Type 2 diabetes mellitus with neurological manifestations, controlled ([facility]); Atrial fibrillation, unspecified type ([facility]); Morbid obesity with BMI of 45.0-49.9, adult ([facility]); Hyperlipidemia, unspecified hyperlipidemia type; Thrombocytopenia; Venous stasis ulcer of other part of left lower leg limited to breakdown of skin without varicose veins ([facility]); Pressure injury of left buttock, stage 1 Start: 07-26-2025 End: 07-26-2025 ambulatory NITHIN ACEVEDO Facility:[facility] Start: 07-25-2025 End: 07-28-2025 Refill Nithin Acevedo MD Work Phone: Internal Medicine [place] Comment on above: Refill Request Orders Start: 07-23-2025 Non-patient / Non-visit Dr. Nathaniel drew MD -[facility] Work Phone: Start: 07-22-2025 Non-patient / Non-visit Dr. Nathaniel drew MD -[facility] Work Phone: Start: 07-21-2025 ambulatory Nithin Acevedo Facili ty:[facility] Start: 07-21-2025 Non-patient / Non-visit Dr. Misty Mock MD -[facility] Start: 07-21-2025 Non-patient / Non-[facility] Work Phone: Start: 07-21-2025 ambulatory Nathaniel Beverly Facility:[facility] Start: 07-21-2025 End: 07-23-2025 Evaluation and management of inpatient Dr. Nathaniel Beverly MD -Pro[facility] Work Phone: Start: 07-01-2025 End: 07-02-2025 Refill Nithin Acevedo MD Work Phone: [facility] [place] Comment on above: Refill Request Start: 05-21-2025 End: 05-30-2025 Refill Gisell Cassidy [employer] WORK[employer] SUPERVISOR.HERBICIDE SPRAYER Work Phone: Pulmonary Medicine Comment on above: Refill Request Start: 05-10-2025 End: 05-10-2025 ambulatory HARMAN ESCOBEDO [facility] Start: 04-01-2025 End: 04-01-2025 Office outpatient visit 25 minutes Gisell Cassidy [employer] WORKER SUPERVISOR.HERBICIDE SPRAYER Work Phone: Pulmonary Medicine Comment on above: Abnormal chest CT (P rimary Dx); Pneumonia of left lower lobe due to infectious organism Start: 04-01-2025 End: 04-01-2025 ambulatory NITHIN ACEVEDO Facility:[facility] Start: 04-01-2025 End: 04-01-2025 Subsequent hospital visit by physician Shellie [facility] (I-[facility]) Work Phone: Cat Scan Comment on above: Pneumonia of both lo wer lobes due to infectious organism [J18.9] Start: 03-07-2025 End: 03-07-2025 Patient encounter procedure Katherin Mckinnon [employer] WORKER SUPERVISOR.HERBICIDE SPRAYER Work Phone: Internal Medicine [place] Comment on above: Jaw pain (Primary Dx ); Atrial fibrillation, unspecified type (HCC); Type 2 diabetes mellitus with neurological manifestations, controlled (HCC); Essential hypertension Start: 03-07-2025 End: 03-07-2025 ambulatory NITHIN ACEVEDO Facility:[facility] Start: 02-18-2025 End: 02-18-2025 Telephone encounter Kristin Guevara MD Work Phone: Endocrine Surgery Start: 02-17-2025 End: 02-18-2025 Telephone encounter Jodie Bowers APRN.CNP Work Phone: Pre Anesthesia Comment on above: Pulmonary Optimizati on Start: 02-15-2025 End: 02-15-2025 Telephone encounter Cristy Camargo RN Pre Anesthesia Start: 02-15-2025 Encounter for other preprocedural examination NITHIN ACEVEDO [facility] Start: 02-15-2025 End: 02-15-2025 Admission to establishment Pac [place] 1 Work Phone: Pre Anesthesia Start: 02-15-2025 End: 02-15-2025 ambulatory NITHIN Kumar JULIÁN Facility:[facility] Start: 02-15-2025 End: 02-15-2025 Anesthesia consultation Pac [place] 1 Work Phone: Pre Anesthesia Comment on above: Pre-operative examin ation (Primary Dx); Chronic diastolic CHF (congestive heart failure) ([facility]); Type 2 diabetes mellitus with neurological manifestations, controlled ([facility]); VHD (valvular heart disease); Atherosclerosis of [place] coronary artery of [place] heart without angina pectoris; Atrial fibrillation, unspecified type ([facility]); RBBB (right bundle branch block); Essential hypertension; Hyperlipidemia, unspecified hyperlipidemia type; HELDER on CPAP; CKD (chronic kidney disease) stage 4, GFR 15-29 ml/min ([facility]); Abnormal chest CT; MGUS (monoclonal gammopathy of unknown significance); Anemia, unspecified type; BPH with obstruction/lower urinary tract symptoms Start: 02-15-2025 End: 02-15-2025 Preprocedural examination done Pac [place] 1 Work Phone: [facility] Work Phone: Start: 02-03-2025 End: 02-15-2025 Admission to same day surgery center Cristy Camargo RN Pre Anesthesia Comment on above: Preparations For Becky gracia (PAC) Start: 02-03-2025 End: 02-15-2025 ambulatory Cristy Camargo RN Pre Anesthesia Start: 01-24-2025 End: 01-24-2025 Telephone encounter Viet Lee MD Work Phone: Pulmonary Medicine Comment on above: Patient Update Start: 01-21-2025 End: 01-21-2025 Patient encounter procedure Pulm Lab [facility] Work Phone: PULM LAB [facility] Comment on above: Abnormal chest CT (P rimary Dx); Current use of usp anticoagulation; Morbid obesity (HCC); Stage 4 chronic kidney disease (HCC); MGUS (monoclonal gammopathy of unknown significance) Start: 01-21-2025 End: 01-21-2025 ambulatory Pulm Lab [facility] Work Phone: PULM LAB [facility] Comment on above: Spirometry Start: 01-12-2025 End: 01-12-2025 Admission to same day surgery center Kristin Guevara MD Work Phone: Endocrine Surgery Comment on above: preop pacc / OR MM (Parathyroidectomy/) Start: 01-12-2025 End: 01-12-2025 ambulatory Kristin Guevara MD Work Phone: Endocrine Surgery Start: 01-10-2025 End: 01-10-2025 Telephone encounter Kristin Guevara MD Work Phone: Endocrine Surgery Start: 01-07-2025 End: 01-07-2025 Telephone encounter Kristin Guevara MD Work Phone: Endocrine Surgery Comment on above: Patient Update Start: 01-05-2025 End: 01-05-2025 Telephone encounter Kristin Guevara MD Work Phone: Endocrine Surgery Comment on above: Results Start: 01-04-2025 End: 01-04-2025 ambulatory CORTNEY ACEVEDO Facility:[facility] Start: 01-04-2025 End: 01-04-2025 Subsequent hospital visit by physician [employer]4 Work Phone: Molecular Imaging Comment on above: Hyperparathyroidism (HCC) [E21.3] Start: 01-04-2025 End: 01-04-2025 ambulatory CORTNEY ACEVEDO Facility:[facility] Start: 01-04-2025 End: 01-04-2025 ambulatory CORTNEY ACEVEDO Facility:[facility] Start: 01-04-2025 End: 01-04-2025 Subsequent hospital visit by physician [facility] Start: 01-03-2025 End: 03-05-2025 Follow-up encounter Nithin Acevedo MD Work Phone: Internal Medicine [place] Comment on above: Results - Ct Start: 12-31-2024 End: 03-02-2025 Orders Only Christal Palomares [employer] WORKER SUPERVISOR.HERBICIDE SPRAYER Work Phone: Kidney [facility] Comment on above: Elevated serum creat inine (Primary Dx) Start: 12-30-2024 End: 12-30-2024 Subsequent hospital visit by physician Ct [facility] (I-Stat) Work Phone: Cat Scan Comment on above: Hypercalcemia [E83.5 2] Start: 12-30-2024 End: 12-30-2024 ambulatory NITHIN ACEVEDO Facility:[facility] Start: 12-16-2024 End: 12-16-2024 Chart abstracting Christal Palomares APRN.HERBICIDE SPRAYER Work Phone: [facility] Start: 12-14-2024 End: 12-14-2024 Orders Only Kristin Guevara MD Work Phone: Endocrine Surgery Comment on above: Hyperparathyroidism (HCC) (Primary Dx) Start: 12-13-2024 End: 12-14-2024 Orders Only Kristin Guevara MD Work Phone: Endocrine Surgery Comment on above: Hypercalcemia (Prima ry Dx) Primary hyperparathy roidism (HCC) (Primary Dx) 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 Start: 12-01-2024 End: 12-01-2024 Telephone encounter Kristin Guevara MD Work Phone: Endocrine Surgery Comment on above: Consult (FACE SHEET) Start: 11-26-2024 End: 11-26-2024 Patient encounter procedure Nithin Acevedo MD Work Phone: Internal Medicine [place] Comment on above: HELDER on CPAP (Primary Dx); Chronic diastolic CHF (congestive heart failure) (HCC); Type 2 diabetes mellitus with neurological manifestations, controlled (HCC) Start: 11-26-2024 End: 11-26-2024 ambulatory NITHIN ACEVEDO Facility:[facility] Start: 11-23-2024 End: 12-01-2024 Telephone encounter Nithin Acevedo MD Work Phone: Internal Medicine [place] Comment on above: CPAP problem Patient Question Start: 11-08-2024 End: 11-08-2024 Orders Only Christal Palomares P[employer] WORKER SUPERVISOR.HERBICIDE SPRAYER Work Phone: Kidney Medicine Comment on above: Elevated serum creat inine (Primary Dx) Start: 11-05-2024 End: 11-05-2024 Patient encounter procedure Katherin Mckinnon PARK WORKER SUPERVISOR.HERBICIDE SPRAYER Work Phone: Internal Medicine [place] Comment on above: Medicare annual well ness visit, subsequent (Primary Dx); Candidal intertrigo; Type 2 diabetes mellitus with neurological manifestations, controlled (HCC); Essential hypertension; CKD (chronic kidney disease) stage 4, GFR 15-29 ml/min (HCC); Screening for depression; Encounter for screening examination for other mental health and behavioral disorders Start: 11-05-2024 End: 11-08-2024 ambulatory Otf Funk RN Kidney Medicine [facility] Comment on above: Added to OTP Start: 11-05-2024 End: 11-05-2024 Subsequent hospital visit by physician [facility] Work Phone: Radiology Comment on above: 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, I12.9, N18.4] Start: 10-27-2024 End: 10-27-2024 Telephone encounter Poppy JIM Navigation Comment on above: 2024 pt assistance a pplication Start: 10-22-2024 End: 10-22-2024 ambulatory NITHIN ACEVEDO Facility:[facility] Start: 09-27-2024 End: 09-27-2024 Telephone encounter Kristin Guevara MD Work Phone: Endocrine Surgery Comment on above: Appointment (Consult ) Start: 09-02-2024 End: 09-02-2024 Orders Only Velia Richter DO Work Phone: [facility] Comment on above: 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) Start: 09-01-2024 End: 09-06-2024 ambulatory Velia Richter DO Work Phone: [facility] Start: 09-01-2024 End: 09-01-2024 Patient encounter procedure Velia Richter DO Work Phone: [facility] Comment on above: 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); 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); Non-nephrotic range proteinuria; Mixed hyperlipidemia Start: 08-19-2024 End: 08-19-2024 Refill Nithin Acevedo MD Work Phone: Internal Medicine [place] Comment on above: Refill Request Start: 08-13-2024 End: 08-13-2024 Telephone encounter Nithin Acevedo MD Work Phone: Internal Medicine [place] Comment on above: patient assistance m eds Start: 08-10-2024 End: 08-10-2024 Telephone encounter Katherin Mckinnon APRN.HERBICIDE SPRAYER Work Phone: Internal Medicine [place] Start: 08-03-2024 End: 08-03-2024 Telephone encounter Nithin Acevedo MD Work Phone: Internal Medicine [place] Comment on above: rec'd tresiba and oz empic from [employer] Start: 07-28-2024 End: 07-28-2024 Patient encounter procedure Katherin Mckinnon APRN.HERBICIDE SPRAYER Work Phone: Internal Medicine [place] Comment on above: Type 2 diabetes lilian itus with neurological manifestations, controlled (HCC) (Primary Dx); CKD (chronic kidney disease) stage 4, GFR 15-29 ml/min (HCC); Chronic diastolic CHF (congestive heart failure) (HCC); Essential hypertension; Atrial fibrillation, unspecified type (HCC); Morbid obesity (HCC); Encounter for immunization Start: 07-23-2024 End: 07-26-2024 Refill Nithin Acevedo MD Work Phone: Internal Medicine [place] Comment on above: Refill Request Start: 05-13-2024 Telephone encounter Nithin gonzáles MD Work Phone: Internal Medicine [place] Comment on above: Patient Assistance ( Patient assistance medication have been received- 1 box novolog flexpens) Start: 04-30-2024 Telephone encounter Nithin gonzáles MD Work Phone: Internal Medicine [place] Comment on above: pt assistance from [employer] Start: 04-15-2024 Refill Nithin youngblood MD Work Phone: Internal Medicine [place] Comment on above: Refill Request Start: 03-27-2024 End: 03-27-2024 Emergency department patient visit [facility] Work Phone: Start: 03-27-2024 End: 03-27-2024 Patient encounter procedure Sujata Begum APRN.HERBICIDE SPRAYER Work Phone: [facility] Comment on above: Skin infection (Prim ananda Dx) Start: 02-04-2024 Telephone encounter Nithin gonzáles MD Work Phone: Internal Medicine [place] Comment on above: rec'd novolog flexpe n from [employer] Start: 01-22-2024 Telephone encounter Nithin gonzáles MD Work Phone: Internal Medicine [place] Comment on above: rec'd tresiba and oz empic from [employer] Start: 01-21-2024 Telephone encounter Poppy QUINTANILLA Navigation Start: 01-15-2024 Telephone encounter Nithin gonzáles MD Work Phone: Internal Medicine [place] Comment on above: approval from [employer] for 2023 Start: 11-05-2023 Telephone encounter Poppy QUINTANILLA Navigation Start: 10-20-2023 Telephone encounter Poppy QUINTANILLA Navigation Start: 10-16-2023 Telephone encounter Nithin gonzáles MD Work Phone: Internal [facility] [place] Comment on above: [facility] Start: 10-13-2023 End: 10-13-2023 Patient encounter procedure Katherin Amezcua APRN.HERBICIDE SPRAYER Work Phone: Internal Medicine [place] Comment on above: Medicare annual well ness visit, subsequent (Primary Dx); Type 2 diabetes mellitus with neurological manifestations, controlled (HCC); CKD (chronic kidney disease) stage 4, GFR 15-29 ml/min (HCC); Morbid obesity (HCC); Anemia, unspecified type; Hyperlipidemia, unspecified hyperlipidemia type; Essential hypertension; Encounter for immunization Start: 07-11-2023 Telephone encounter Nithin gonzáles MD Work Phone: Internal Medicine [place] Comment on above: ozempic from [employer] Start: 06-10-2023 Telephone encounter Nithin gonzáles MD Work Phone: Internal Medicine [place] Comment on above: tresiba rec'd from [employer] Start: 05-22-2023 Telephone encounter Nithin gonzáles MD Work Phone: Internal Medicine [place] Comment on above: pt assistance from [employer] Start: 05-19-2023 Telephone encounter Nithin gonzáles MD Work Phone: Internal Medicine [place] Comment on above: License Placard Start: 05-07-2023 Telephone encounter Nithin gonzáles MD Work Phone: [facility] [place] Comment on above: reorder for tresebia from [employer] Start: 04-22-2023 Refill Nithin youngblood MD Work Phone: [address] [place] [address] Comment on above: Refill Request Start: 02-12-2023 Telephone encounter Nithin gonzáles MD Work Phone: Internal Medicine [place] Comment on above: rec'd nolovog from [employer] Start: 02-07-2023 Telephone encounter Nithin gonzáles MD Work Phone: [facility] [place] Comment on above: Medication Update (p atient assistance meds- insulin) Start: 01-16-2023 Telephone encounter Nithin gonzáles MD Work Phone: Internal Medicine [place] Comment on above: tresiba is needed fr drug company. Start: 01-08-2023 Telephone encounter Nithin gonzáles MD Work Phone: Internal Medicine [place] Comment on above: pt assitance medicin e (Ozempic from [employer]) Start: 12-09-2022 Telephone encounter Nithin gonzáles MD Work Phone: [facility] Medicine [place] Comment on above: Forms Start: 11-28-2022 Telephone encounter Irma Rocha emelia [facility] Work Phone: [facility] Comment on above: Forms ([employer] 202 3 PAP renewal - Tresiba, Novolog, Ozempic) Start: 11-01-2022 Telephone encounter Nithin gonzáles MD Work Phone: Internal Medicine [place] Comment on above: Patient Assistance Start: 10-25-2022 Telephone encounter Nithin gonzáles MD Work Phone: [facility] [place] Comment on above: Medication Problem Start: 10-03-2022 Telephone encounter Nithin gonzáles MD Work Phone: Internal Medicine [place] Comment on above: Medication Question Start: 08-28-2022 Telephone encounter Nithin gonzáles MD Work Phone: Internal [facility] [place] Comment on above: pt assistance rec'd from [employer] Start: 08-20-2022 End: 08-20-2022 ambulatory Adriana Garrison [facility] Work Phone: [facility] Comment on above: Type 2 diabetes lilian itus with neurological manifestations, controlled (HCC) (Primary Dx) Start: 08-20-2022 End: 08-20-2022 Telemedicine consultation with patient Adriana Garrison [facility] Work Phone: [facility] Start: 07-24-2022 Telephone encounter Nithin gonzáles MD Work Phone: Family Medicine [place] Comment on above: Refill Request (Gabrielle ent Assistance medication ) Start: 07-09-[address] NITHIN BROWNING MD. Facility:A Start: 07-02-2022 End: 07-07-2022 Evaluation and management of inpatient DR. NITHIN ACEVEDO MD. Facility:A Start: 07-02-2022 End: 07-07-2022 Evaluation and management of inpatient LAURENT MYERS MD [facility] Start: 07-01-2022 End: 07-02-[address] NITHIN ACEVEDO MD. Facility:A Start: 07-01-2022 End: 07-01-2022 Patient encounter procedure RICHARD JIMENEZ PA-C [facility] Start: 06-26-2022 End: 06-27-[address] NITHIN ACEVEDO MD. Facility:A Start: 06-26-2022 End: 06-26-2022 Admission to [facility] LAURENT MYERS MD [facility] Start: 06-25-2022 End: 06-25-2022 ambulatory Adriana Garrison [facility] Work Phone: [facility] Comment on above: Type 2 diabetes lilian itus with neurological manifestations, controlled ([facility]) Start: 06-25-2022 End: 06-25-2022 Telemedicine consultation with patient Adriana Garrison [facility] Work Phone: [facility] Start: 06-12-2022 End: 06-12-2022 Patient encounter procedure Nithin Acevedo MD Work Phone: Internal Medicine [place] Comment on above: Encounter for routin e adult medical examination (Primary Dx); Atrial fibrillation, unspecified type (HCC); Type 2 diabetes mellitus with neurological manifestations, controlled ([facility]); Essential hypertension; Atherosclerosis of [place] coronary artery of [place] heart without angina pectoris; Obesity, Class III, BMI 40-49.9 (morbid obesity) ([facility]); CKD (chronic kidney disease) stage 4, GFR 15-29 ml/min ([facility]); Chronic diastolic CHF (congestive heart failure) ([facility]); Recurrent epistaxis; Wound of left lower extremity, sequela Start: 06-12-2022 End: 06-12-2022 Patient encounter status Nithin Acevedo MD Work Phone: Internal Medicine [place] Start: 05-29-2022 Telephone encounter Nithin gonzáles MD Work Phone: Internal Medicine [place] Comment on above: Medication Question Start: 05-23-2022 Telephone encounter Nithin gonzáles MD Work Phone: [facility] [place] Comment on above: rec'd one box of nov olog flex pen from [employer] Start: 05-17-2022 Telephone encounter Nithin gonzáles MD Work Phone: Internal Medicine [place] Comment on above: Patient update/liana rn Start: 05-17-[address] NITHIN BROWNING MD. Facility:A Start: 05-14-2022 End: 05-15-2022 ambulatory LAURENT MYERS MD Facility:A Start: 05-14-2022 End: 05-15-2022 Observation LAURENT MYERS MD [facility] Start: 05-13-2022 End: 05-14-[address] NITHIN ACEVEDO MD. Facility:A Start: 05-13-2022 End: 05-13-2022 Admission to establishment LAURENT MYERS MD [facility] Start: 05-07-2022 End: 05-07-2022 ambulatory Adriana Garrison [facility] Work Phone: [facility] Comment on above: Type 2 diabetes lilian itus with neurological manifestations, controlled ([facility]) (Primary Dx) Start: 05-07-2022 End: 05-07-2022 Telemedicine consultation with patient Adriana Garrison марина Work Phone: [facility] Start: 04-29-2022 Telephone encounter Adriana Garrison RP Work Phone: [facility] Comment on above: Patient Assistance ( Novocare (novolog and Tresiba)) Start: 04-24-2022 Refill Nithin youngblood MD Work Phone: [facility] Comment on above: Refill Request Start: 04-24-2022 Telephone encounter Adriana Garrison RP Work Phone: [facility] Comment on above: Medication Problem Start: 04-23-2022 End: 04-23-2022 ambulatory Adriana Garrison RP Work Phone: [facility] Comment on above: Uncontrolled type 2 diabetes mellitus with hyperglycemia (HCC) (Primary Dx) Start: 04-23-2022 End: 04-23-2022 Telemedicine consultation with patient Adriana Garrison RPмарина Work Phone: [facility] Start: 04-08-2022 Telephone encounter Nithin gonzáles MD Work Phone: Internal Medicine [place] Comment on above: Lab Orders Start: 04-02-2022 End: 04-02-2022 ambulatory Adriana Garrison RP Work Phone: [facility] Comment on above: Uncontrolled type 2 diabetes mellitus with hyperglycemia (HCC) (Primary Dx) Start: 04-02-2022 End: 04-02-2022 Telemedicine consultation with patient Adriana Garrison RPмарина Work Phone: [facility] [place] Start: 04-01-2022 Refill Nithin youngblood MD Work Phone: [facility] [place] Comment on above: Refill Request Start: 03-14-2022 Telephone encounter Adriana Garrison RP Work Phone: [facility] Comment on above: Diabetes Start: 03-13-2022 Telephone encounter Nithin gonzáles MD Work Phone: [facility] [place] Comment on above: pt assistance medici ne from the drug company Start: 02-25-2022 Telephone encounter Nithin gonzáles MD Work Phone: [facility] [place] Comment on above: Forms (pt assistance forms for semaglutide (OZEMPIC) 1 mg/dose (4 mg/3 mL) pen injector) Start: 02-22-2022 End: 02-22-2022 Patient encounter procedure Nithin Acevedo MD Work Phone: [facility] [place] Comment on above: Type 2 diabetes lilian itus with neurological manifestations, controlled (HCC) (Primary Dx); BPH with urinary obstruction; Atrial fibrillation, unspecified type (HCC) Start: 10-30-2020 End: 10-30-2020 Subsequent hospital visit by physician Xr [facility] [place] Work Phone: Radiology Comment on above: Groin pain, left [R1 0.32] Start: 08-17-2018 [facility] :[facility] Start: 04-02-2018 End: 04-02-2018 [facility] Start: 02-19-2018 End: 02-19-2018 [facility] Start: 12-15-2017 End: 12-15-2017 [facility] Procedures Date Procedure Procedure Detail Performing Clinician Start: 07-26-2025 Gluc bld gluc mntr d ev cleared fda spec home use [facility] Provider Start: 07-23-[address] Nithin Acevedo MD Work Phone: Start: 07-22-2025 Serum inorganic phos phate measurement Dr. Nithin Acevedo MD Work Phone: Start: 07-21-[address] e fraction Dr. Nithin Acevedo MD Work Phone: Start: 07-21-2025 Total iron binding c apacity measurement Dr. Nithin Acevedo MD Work Phone: Start: 07-21-2025 Complete ultrasound of kidneys and bladder Dr. Nithin Acevedo MD Work Phone: Start: 07-21-2025 Plain chest X-ray Dr. Suzanne Acevedo MD Work Phone: Start: 07-21-[address] Nithin Acevedo MD Work Phone: Start: 03-07-2025 Follow-up visit Follow Up KATHERIN COLE Start: 01-21-2025 Brncdilat rspse spmt ry pre&post-brncdilat admn Viet Lee MD Work Phone: Start: 01-04-2025 Parathyroid imaging w/tomographic spect & ct Kristin Guevara MD Work Phone: Start: 12-30-2024 Ct thorax w/o contra st material Homer Carpio PARK WORKER SUPERVISOR.HERBICIDE SPRAYER, PhD Work Phone: Start: 11-05-2024 Adult depression scr eening assessment Katherin Michelle PARK WORKER SUPERVISOR.HERBICIDE SPRAYER Work Phone: Start: 09-01-2024 Immunofixj electroph oresis other fluids Velia Richter DO Work Phone: Start: 09-01-2024 Urine albumin quantitative Velia Richter DO Work Phone: Start: 03-27-2024 Radiography of foot Start: 10-13-2023 Hemoglobin A1c/Hemoglobin.total in Blood Katherin Older PARK WORKER SUPERVISOR.HERBICIDE SPRAYER Work Phone: Start: 10-13-2023 INFLUENZA VACCINE, P RSV FREE, AGE 65+ YR, HIGH DOSE, QUADRIVALENT (FLUZONE HIGH-DOSE) Katherin Older PARK WORKER SUPERVISOR.HERBICIDE SPRAYER Work Phone: Start: 06-12-2022 Hemoglobin A1c/Hemoglobin.total in Blood Nithin Acevedo MD Work Phone: Start: 06-04-2022 BMP - EXTERNAL [facility] Prov ider Start: 03-06-2022 Cardioversion LAURENT HAYNES MD Start: 02-19-2022 Echocardiography LAURENT MYERS MD Start: 10-30-2020 Radex hip unilateral with pelvis 2-3 views Nithin Acevedo MD Work Phone: Start: 02-26-2018 Cardiac catheterization LAURENT MYERS MD Start: 11-17-2017 Total knee replacement LAURENT MYERS MD Comment on above: right Start: 07-30-2016 History of coronary artery bypass grafting S/P CABG x 2 Nithin Acevedo MD Work Phone: Start: 11-17-2014 Cataract surgery LAURENT MYERS MD Start: 11-17-2009 Biopsy of prostate DOMONIQUE MYERS MD Start: 11-17-2007 Total knee replacement LAURENT MYERS MD Comment on above: left Start: 09-18-2007 Coronary artery bypass graft LAURENT MYERS MD Start: 11-17-1991 Repair of inguinal hernia LAURENT MYERS MD Comment on above: left Start: 11-17-1978 Anal fissurectomy SHAYLEE MYERS MD Bilateral inguinal h ernia repair LAURENT MYERS MD Hemorrhoidectomy LAURENT MYERS MD Tonsillectomy LAURENT MYERS MD Plan of Treatment Date Care Activity Detail Author Start: 03-27-2034 Urine microalbumin profile DTaP,Tdap,Td Vaccine (3 - Td or Tdap) [facility] Start: 04-20-2032 Urine microalbumin profile [facility] Start: 11-14-2025 End: 11-14-2025 Patient encounter procedure 11/14/2025 1:40 PM EST Office Visit [facility] [place] [address] [place], [place] [phone] Nithin Acevedo MD [address] [place], [place] [id number] Annual Medicare Wellness w/3 month follow-up [facility] [place] Comment on above: Annual Medicare Wellness w/3 month follo w-up Start: 11-05-2025 Anxiety Screening Anxiety Screening [facility] Start: 11-05-2025 Covid-19 Vaccine () Covid-19 Vaccine () [facility] Comment on above: Postponed from 07/18/2024 (Declined at t his time) Start: 11-05-2025 Depression Screening Depression Screening [facility] Start: 11-05-2025 RSV Vaccine (1 - 1-dose 75+ series) RSV Vaccine (1 - 1-dose 75+ series) [facility] Comment on above: Postponed from 2011 (Declined at t his time) Start: 11-05-2025 Shingrix Vaccine (2 of 3) Shingrix Vaccine (2 of 3) [facility] Comment on above: Postponed from 12/09/2012 (Declined at t his time) Start: 09-18-2025 Diabetic foot examination Diabetic Foot Exam [facility] Start: 08-31-2025 Glaucoma screening Dilated Retinal Exam [facility] Start: 08-17-2025 [facility]c [facility] Start: 08-02-2025 End: 11-01-2025 Basic metabolic 2000 panel - Serum or Plasma BASIC METABOLIC PANEL Lab Routine Chronic diastolic CHF (congestive heart failure) ([facility]) CKD (chronic kidney disease) stage 4, GFR 15-29 ml/min ([facility]) Expected: 08/02/2025, Expires: 11/01/2025 [facility] Comment on above: Expected: 08/02/2025, Expires: Start: 08-02-2025 End: 11-01-2025 CBC panel - Blood by Automated count COMPLETE BLOOD COUNT Lab Routine 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) Expected: 08/02/2025, Expires: 11/01/2025 [facility] Work Phone: Comment on above: Expected: 08/02/2025, Expires: Start: 08-02-2025 End: 11-01-2025 Hemoglobin A1c in Blood HEMOGLOBIN A1C Lab Routine Type 2 diabetes mellitus with neurological manifestations, controlled ([facility]) Expected: 08/02/2025, Expires: 11/01/2025 [facility] Comment on above: Expected: 08/02/2025, Expires: Start: 08-02-2025 End: 11-01-2025 Lipid 1996 panel - Serum or Plasma LIPID PANEL, FASTING Lab Routine Hyperlipidemia, unspecified hyperlipidemia type Expected: 08/02/2025, Expires: 11/01/2025 [facility] Comment on above: Expected: 08/02/2025, Expires: Start: 07-26-2025 End: 07-26-2025 Patient encounter procedure 07/26/2025 12:00 PM EDT Office Visit Internal Medicine [place] [address] [place] [address] Nithin Acevedo MD [address] [place] [address] [facility] 07/21-07/23 fluid in lungs and legs [facility] [place] Comment on above: [facility] fluid in lungs and legs Start: 07-23-2025 Patient discharge [facility] Start: 07-22-2025 [facility] Start: 07-22-2025 Referral to [facility] Start: 07-22-2025 Referral for physical therapy [facility] Start: 07-22-2025 Referral to service [facility] Start: 07-22-2025 Referral to occupational therapist [facility] Start: 07-21-2025 Ambulation without limitation [facility] Start: 07-21-2025 Assessment of risk of venous thromboembolism [facility] Start: 07-21-2025 Care regimes management [facility] Start: 07-21-2025 Catheterization of vein [facility] Start: 07-21-2025 Elevation of affected extremity [facility] Start: 07-21-2025 Inhalation therapy procedure [facility] Start: 07-21-2025 Insertion of catheter into peripheral vein [facility] Start: 07-21-2025 Measuring intake and output [facility] Start: 07-21-2025 Notification of physician [facility] Start: 07-21-2025 Oxygen therapy [facility] Start: 07-21-2025 Patient education [facility] Start: 07-21-2025 Patient referral to dietitian [facility] Start: 07-21-2025 Providing care according to standard [facility] Start: 07-21-2025 Provision of activity privileges [facility] Start: 07-21-2025 End: 07-21-2025 [facility] Start: 07-21-2025 Following clinical pathway protocol [facility] Start: 07-21-2025 Reticulocyte count [facility] Start: 07-21-2025 Vitamin B12 measurement [facility] Start: 07-21-2025 Complete ultrasound of kidneys and bladder Kidney and Bladder [facility] Start: 07-21-2025 Hospital admission, emergency, from emergency room, medical nature [facility] Start: 07-21-2025 Verification routine [facility] Start: 07-21-2025 Admission procedure [facility] Start: 07-21-2025 [facility] Start: 07-21-2025 Consultation [facility] Start: 07-21-2025 Patient referral to dietitian [facility] Start: 07-20-2025 End: 07-20-2025 ambulatory 07/20/2025 3:30 PM EDT [facility] Hematology/Oncology [address] [place] [address] Homer Carpio APRN.HERBICIDE SPRAYER, PhD [address] [place] [address] [facility] Comment on above: [facility] Start: 07-18-2025 Influenza vaccination Influenza Vaccine (#1) [facility] Start: 07-07-2025 End: 07-07-2025 ambulatory 07/07/2025 12:15 PM EDT Results Only [facility] [address] [facility] [place] [id number] LABS [facility] Comment on above: LABS Start: 07-07-2025 End: 07-07-2025 Patient encounter procedure 07/07/2025 11:20 AM EDT Office Visit Internal Medicine [place] [address] [place] [id number] Nithin Acevedo MD [address] [place] [address] 4 Month follow up [facility] [place] Comment on above: 4 Month follow up Start: 07-05-2025 End: 07-05-2025 Patient encounter procedure Pulmonary Medicine Comment on above: 3 MTH F/U REVIEW CT Start: 07-05-2025 End: 07-05-2025 Patient encounter procedure 07/05/2025 9:20 AM EDT Appointment Cat Scan [address] [place] [address] CT CHEST Cat Scan Comment on above: CT CHEST Start: 07-02-2025 End: 05-01-2026 CT Chest WO contrast CT CHEST WO IVCON Radiology Routine Abnormal chest CT Pneumonia of left lower lobe due to infectious organism Expected: 07/02/2025 (Approximate), Expires: 05/01/2026 [facility] Work Phone: Comment on above: Expected: 07/02/2025 (Approximate), Expi res: 05/01/2026 Start: 06-21-2025 End: 09-20-2025 MONOCLONAL PROTEIN, SERUM (BLOOD) MONOCLONAL PROTEIN, SERUM (BLOOD) Lab Routine MGUS (monoclonal gammopathy of unknown significance) Expected: 06/21/2025 (Approximate), Expires: 09/20/2025 [facility] Comment on above: Expected: 06/21/2025 (Approximate), Expi res: 09/20/2025 Start: 06-20-2025 End: 09-19-2025 CBC W Auto Differential panel - Blood COMPLETE BLOOD COUNT AND DIFFERENTIAL Lab Routine MGUS (monoclonal gammopathy of unknown significance) Expected: 06/20/2025 (Approximate), Expires: 09/19/2025 [facility] Comment on above: Expected: 06/20/2025 (Approximate), Expi res: 09/19/2025 Start: 06-20-2025 End: 09-19-2025 Comprehensive metabolic 2000 panel - Serum or Plasma COMPREHENSIVE METABOLIC PANEL Lab Routine MGUS (monoclonal gammopathy of unknown significance) Expected: 06/20/2025 (Approximate), Expires: 09/19/2025 [facility] Comment on above: Expected: 06/20/2025 (Approximate), Expi res: 09/19/2025 Start: 06-20-2025 End: 09-19-2025 MONOCLONAL PROT UR W/INTERP MONOCLONAL PROT UR W/INTERP Lab Routine MGUS (monoclonal gammopathy of unknown significance) Expected: 06/20/2025 (Approximate), Expires: 09/19/2025 [facility] Comment on above: Expected: 06/20/2025 (Approximate), Expi res: 09/19/2025 Start: 06-20-2025 End: 09-19-2025 PROTEIN ELECT RND UR W/INTERP PROTEIN ELECT RND UR W/INTERP Lab Routine MGUS (monoclonal gammopathy of unknown significance) Expected: 06/20/2025 (Approximate), Expires: 09/19/2025 [facility] Comment on above: Expected: 06/20/2025 (Approximate), Expi res: 09/19/2025 Start: 06-20-2025 End: 09-19-2025 PROTEIN ELECTROPHORESIS SERUM W/INTERP PROTEIN ELECTROPHORESIS SERUM W/INTERP Lab Routine MGUS (monoclonal gammopathy of unknown significance) Expected: 06/20/2025 (Approximate), Expires: 09/19/2025 [facility] Comment on above: Expected: 06/20/2025 (Approximate), Expi res: 09/19/2025 Start: 04-05-2025 End: 04-05-2025 Admission to same day surgery center 04/05/2025 9:00 AM EDT [facility] Endocrine Surgery [address] [place] [address] Kristin Guevara MD [address] [phone] post op Endocrine Surgery Comment on above: post op Start: 04-01-2025 End: 07-01-2025 Bacteria identified in Unspecified specimen by Respiratory culture BACTERIAL CULTURE AND GRAM STAIN, RESPIRATORY, SPUTUM AND TRACHEAL ASPIRATE Microbiology Routine Pneumonia of left lower lobe due to infectious organism Expected: 04/01/2025, Expires: 07/01/2025 [facility] Comment on above: Expected: 04/01/2025, Expires: Start: 04-01-2025 End: 04-01-2025 Patient encounter procedure 04/01/2025 11:00 AM EDT Office Visit Pulmonary Medicine [address] [place] [address] Gisell Cassidy APRN.HERBICIDE SPRAYER [address] [place] [address] 3 month f/u- Review Chest CT Pulmonary Medicine Comment on above: 3 month f/u- Review Chest CT Start: 03-28-2025 End: 02-23-2026 CT Chest WO contrast CT CHEST WO IVCON Radiology Routine Pneumonia of both lower lobes due to infectious organism Expected: 03/28/2025, Expires: 02/23/2026 [facility] Work Phone: Comment on above: Expected: 03/28/2025, Expires: Start: 03-11-2025 End: 03-11-2025 Admission to same day surgery center 03/11/2025 7:30 AM EDT - 03/11/2025 9:15 AM EDT Surgery [facility] Surgery [id number] [place], [place] [id number] Kristin Guevara MD [address] [place] [address] PARATHYROIDECTOMY [facility] Comment on above: PARATHYROIDECTOMY Start: 03-11-2025 End: 03-11-2025 Parathyroidectomy/explorati on parathyroids PARATHYROIDECTOMY Primary hyperparathyroidism (HCC) 03/11/2025 7:30 AM EDT MM OR Start: 03-11-2025 Subsequent hospital visit by physician 03/11/2025 7:30 AM EDT Hospital Encounter [facility] Surgery [address] [place] [address] Kristin Guevara MD [address] [place] [address] Primary hyperparathyroidism (HCC) [E21.0] [facility] Comment on above: Primary hyperparathyroidism (HCC) [E21.0 ] Start: 03-07-2025 End: 03-07-2025 Patient encounter procedure 03/07/2025 11:00 AM EDT Office Visit [facility] [place] [address] [place] [address] Katherin Mckinnon, PARK WORKER SUPERVISOR.HERBICIDE SPRAYER [address] [place] [address] 4 MONTH FOLLOW UP [facility] [place] Comment on above: 4 MONTH FOLLOW UP Start: 02-03-2025 Hepatitis B surface antibody level LDL Cholesterol [facility] Start: 01-28-2025 End: 04-29-2025 Renal function 2000 panel - Serum or Plasma RENAL FUNCTION PANEL Lab Routine Elevated serum creatinine Expected: 01/28/2025, Expires: 04/29/2025 [facility] Work Phone: Comment on above: Expected: 01/28/2025, Expires: Start: 01-25-2025 Hemoglobin A1c measurement HbA1C [facility] Start: 01-21-2025 End: 01-21-2025 Patient encounter procedure 01/21/2025 11:00 AM EST Office Visit Pulmonary Medicine [address] [place] [address] Viet Lee MD [address] [place] [address] Chronic cough [R05.3] Pulmonary Medicine Comment on above: Chronic cough [R05.3] Start: 01-21-2025 End: 01-21-2025 ambulatory 01/21/2025 10:30 AM EST Procedure PULM LAB [facility] [address] [place] [address] Wstr, Pulm Lab [facility] [address] [place] [address] Chronic cough [R05.3] PULM [facility] Comment on above: Chronic cough [R05.3] Start: 01-12-2025 End: 01-12-2026 Basic metabolic 2000 panel - Serum or Plasma BASIC METABOLIC PANEL Lab Routine Primary hyperparathyroidism (HCC) Expected: 01/12/2025, Expires: 01/12/2026 [facility] Work Phone: Comment on above: Expected: 01/12/2025, Expires: Start: 01-12-2025 End: 01-12-2026 CBC W Auto Differential panel - Blood COMPLETE BLOOD COUNT AND DIFFERENTIAL Lab Routine Primary hyperparathyroidism (HCC) Expected: 01/12/2025, Expires: 01/12/2026 [facility] Comment on above: Expected: 01/12/2025, Expires: Start: 01-04-2025 End: 01-04-2025 Patient encounter procedure 01/04/2025 2:30 PM EST Appointment Molecular Imaging [address] [place], [place] [phone] [place] PARATHYROID W SPECT/CT [facility] Comment on above: NM PARATHYROID W SPECT/CT Start: 01-04-2025 End: 01-04-2025 Patient encounter procedure 01/04/2025 10:30 AM EST Appointment Molecular Imaging [address] [place] [address] [place] PARATHYROID W SPECT/CT [facility] Comment on above: NM PARATHYROID W SPECT/CT Start: 12-30-2024 End: 03-31-2025 Basic metabolic 2000 panel - Serum or Plasma BASIC METABOLIC PANEL Lab Routine Elevated serum creatinine Expected: 12/30/2024, Expires: 03/31/2025 [facility] Work Phone: Comment on above: Expected: 12/30/2024, Expires: Start: 12-30-2024 End: 12-30-2024 Patient encounter procedure 12/30/2024 11:40 AM EST Appointment Cat Scan [address] [place] [address] CT CHEST Cat Scan Comment on above: CT CHEST Start: 12-30-2024 End: 12-30-2024 ambulatory 12/30/2024 10:00 AM EST Results Only [place] [facility] [address] [place] [address] [place] [facility] Start: 12-21-2024 End: 01-19-2026 CT Chest WO contrast CT CHEST WO IVCON Radiology Routine 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) Shortness of breath Expected: 12/21/2024, Expires: 01/19/2026 [facility] Comment on above: Expected: 12/21/2024, Expires: Start: 12-13-2024 End: 12-13-2024 ambulatory 12/13/2024 2:00 PM EST Visit (SP) Office Hematology/Oncology [address] [place] [address] Homer Carpio APRN.HERBICIDE SPRAYER, PhD [address] [place] [address] [facility] Hematology/On[facility]o gy Comment on above: [facility]US Start: 12-13-2024 End: 12-13-2024 Patient encounter procedure [facility]ocrine [facility] Comment on above: PTH consult INTAKE COMPLETE - PT H consult Start: 11-23-2024 End: 11-23-2024 ambulatory 11/23/2024 9:00 AM EST [facility] [address] [place] [address] Christal Palomares, PARK WORKER SUPERVISOR.HERBICIDE SPRAYER [address] [place] [address] CKD Stage 4 [facility] Comment on above: CKD Stage 4 Start: 11-17-2024 Advance Directive Discussion Advance Directive Discussion [facility] Start: 11-17-2024 Medicare Advantage Annual Wellness Visit Medicare Advantage Annual Wellness Visit [facility] Start: 11-12-2024 End: 02-11-2025 Renal function 2000 panel - Serum or Plasma RENAL FUNCTION PANEL Lab Routine Elevated serum creatinine Expected: 11/12/2024 (Approximate), Expires: 02/11/2025 [facility] Work Phone: Comment on above: Expected: 11/12/2024 (Approximate), Expi res: 02/11/2025 Start: 11-05-2024 End: 11-05-2024 Patient encounter procedure [facility] Comment on above: Medicare Wellness ; routine 3m follow up 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, I12.9, 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]; 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, 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 Start: 10-27-2024 End: 10-27-2024 Patient encounter procedure 10/27/2024 10:40 AM EST Office Visit Internal Medicine [place] [address] [place], [place] [phone] Katherin Mckinnon, PARK WORKER SUPERVISOR.HERBICIDE SPRAYER [address] [place] [address] Medicare Wellness ; routine 3m follow up [facility] [place] Comment on above: Medicare Wellness ; routine 3m follow up Start: 10-22-2024 End: 10-22-2024 ambulatory 10/22/2024 1:30 PM [facility] [address] [address] Christal Palomares, PARK WORKER SUPERVISOR.HERBICIDE SPRAYER [address] [place] [address] 6 weeks vv per checkout [facility] Comment on above: 6 weeks vv per checkout Start: 10-13-2024 Covid-19 Vaccine ( season) Covid-19 Vaccine ( season) [facility] Comment on above: Postponed from 07/18/2023 (Declined at t his time) Start: 10-13-2024 Hepatitis B Vaccine (1 of 3 - Risk 3-dose series) Hepatitis B Vaccine (1 of 3 - Risk 3-dose series) [facility] Comment on above: Postponed from 1996 (Declined at t his time) Start: 10-13-2024 RSV Vaccine (1 - 1-dose 60+ series) RSV Vaccine (1 - 1-dose 60+ series) [facility] Comment on above: Postponed from 1996 (Declined at t his time) Start: 10-13-2024 RSV Vaccine (1 - 1-dose 75+ series) RSV Vaccine (1 - 1-dose 75+ series) [facility] Comment on above: Postponed from 2011 (Declined at t his time) Start: 10-13-2024 Shingrix Vaccine (2 of 3) Shingrix Vaccine (2 of 3) [facility] Comment on above: Postponed from 12/09/2012 (Declined at t his time) Start: 10-02-2024 End: 01-01-2025 Comprehensive metabolic 2000 panel - Serum or Plasma COMPREHENSIVE METABOLIC PANEL Lab Routine 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) Expected: 10/02/2024, Expires: 01/01/2025 [facility] Comment on above: Expected: 10/02/2024, Expires: Start: 09-22-2024 3 comp foot exam completed Diabetic Foot Exam [facility] Start: 09-22-2024 Diabetic foot examination [facility]abetic Foot [facility] Start: 09-02-2024 End: 12-02-2024 25-hydroxyvitamin D3 [Mass/volume] in Serum or Plasma [facility] Work Phone: Comment on above: Expected: 09/02/2024, Expires: Start: 09-01-2024 End: 12-01-2024 Calcitriol [Mass/volume] in Serum or Plasma [facility] Comment on above: Expected: 09/01/2024, Expires: Start: 09-01-2024 End: 12-01-2024 Microalbumin/Creatinine [Mass Ratio] in Urine [facility] Comment on above: Expected: 09/01/2024, Expires: Start: 09-01-2024 End: 12-01-2024 MONOCLONAL PROT UR W/INTERP MONOCLONAL PROT UR W/INTERP Lab Routine 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 Expected: 09/01/2024, Expires: 12/01/2024 [facility] Comment on above: Expected: 09/01/2024, Expires: Start: 09-01-2024 End: 12-01-2024 MONOCLONAL PROTEIN, SERUM (BLOOD) [facility] Comment on above: Expected: 09/01/2024, Expires: Start: 09-01-2024 End: 12-01-2024 Parathyrin.intact [Mass/volume] in Serum or Plasma [facility] Comment on above: Expected: 09/01/2024, Expires: Start: 09-01-2024 End: 12-01-2024 Renal function 2000 panel - Serum or Plasma [facility] Work Phone: Comment on above: Expected: 09/01/2024, Expires: 5 Start: 09-01-2024 End: 09-01-2024 Patient encounter procedure 09/01/2024 1:00 PM EDT Office Visit Kidney [facility] [address] [id number] Velia Richter DO [address] [place] [address] 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, I12.9, 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] [facility] Comment on above: Type 2 DM with CKD stage 4 and hypertens ion (HCC) [E11.22, I12.9, N18.4] Start: 08-04-2024 Glaucoma screening Dilated Retinal Exam [facility] Start: 08-04-2024 Hepatitis C antibody, confirmatory test Dilated Retinal Exam [facility] Start: 07-28-2024 End: 10-27-2024 Comprehensive metabolic 2000 panel - Serum or Plasma [facility] Work Phone: Comment on above: Expected: 07/28/2024, Expires: Start: 07-28-2024 End: 10-27-2024 Hemoglobin A1c in Blood [facility] Comment on above: Expected: 07/28/2024, Expires: 4 Start: 07-28-2024 End: 07-28-2024 Patient encounter procedure 07/28/2024 11:00 AM EDT Office Visit [facility] [address] [place], [place] [id number] Katherin Mckinnon, PARK WORKER SUPERVISOR.HERBICIDE SPRAYER [address] [place] [address] 6 Month follow up [facility] Comment on above: 6 Month follow up Start: 07-18-2024 Covid-19 Vaccine ( season) Covid-19 Vaccine () [facility] Start: 07-18-2024 Covid-19 Vaccine () Covid-19 Vaccine () [facility] Start: 07-18-2024 Influenza vaccination Influenza Vaccine (#1) [facility] Start: 04-13-2024 End: 04-13-2024 Patient encounter procedure 04/13/2024 2:00 PM EDT Office Visit Internal [facility] [address] [place] [address] Katherin Mckinnon, PARK WORKER SUPERVISOR.HERBICIDE SPRAYER [address] [place] [address] 6 month follow up [facility] Comment on above: 6 month follow up Start: 04-12-2024 Hemoglobin A1c measurement HbA1C [facility] Start: 04-12-2024 Hemoglobin A1c/Hemoglobin.total in Blood HbA1C [facility] Start: 03-27-2024 [facility] Start: 03-21-2024 End: 06-20-2024 ALBUMIN/CREAT RATIO RND UR ALBUMIN/CREAT RATIO RND UR Lab Routine Type 2 diabetes mellitus with neurological manifestations, controlled (HCC) Expected: 03/21/2024, Expires: 06/20/2024 [facility] Work Phone: Comment on above: Expected: 03/21/2024, Expires: Start: 03-21-2024 End: 06-20-2024 CBC panel - Blood by Automated count CBC Lab Routine Type 2 diabetes mellitus with neurological manifestations, controlled (HCC) Expected: 03/21/2024, Expires: 06/20/2024 [facility] Work Phone: Comment on above: Expected: 03/21/2024, Expires: Start: 03-21-2024 End: 06-20-2024 Comprehensive metabolic 2000 panel - Serum or Plasma COMP METABOLIC PANEL Lab Routine Hypercalcemia Expected: 03/21/2024, Expires: 06/20/2024 [facility] Work Phone: Comment on above: Expected: 03/21/2024, Expires: Start: 03-21-2024 End: 06-20-2024 Hemoglobin A1c in Blood HGB A1C Lab Routine Type 2 diabetes mellitus with neurological manifestations, controlled (HCC) Expected: 03/21/2024, Expires: 06/20/2024 [facility] Work Phone: Comment on above: Expected: 03/21/2024, Expires: Start: 03-21-2024 End: 06-20-2024 Lipid 1996 panel - Serum or Plasma LIPID PANEL BASIC Lab Routine Hyperlipidemia, unspecified hyperlipidemia type Expected: 03/21/2024, Expires: 06/20/2024 [facility] Work Phone: Comment on above: Expected: 03/21/2024, Expires: Start: 03-21-2024 End: 06-20-2024 Parathyrin.intact [Mass/volume] in Serum or Plasma PTH INTACT BLD Lab Routine Hypercalcemia Expected: 03/21/2024, Expires: 06/20/2024 [facility] Work Phone: Comment on above: Expected: 03/21/2024, Expires: Start: 11-17-2023 Advance Directive Discussion Advance Directive Discussion [facility] Start: 11-17-2023 Behavioral Health Screening Behavioral Health Screening [facility] Start: 11-17-2023 Depression Assessment Depression Assessment [facility] Start: 11-08-2023 Hemoglobin A1c/Hemoglobin.total in Blood HBA1C [facility] Start: 07-18-2023 Influenza vaccination [facility] Start: 07-12-2023 Hepatitis C antibody, confirmatory test DILATED RETINAL EXAM [facility] Start: 06-12-2023 3 comp foot exam [facility] Start: 12-13-2022 End: 03-29-2023 ALBUMIN/CREAT RATIO RND UR ALBUMIN/CREAT RATIO RND UR Lab Routine Type 2 diabetes mellitus with neurological manifestations, controlled (HCC) Expected: 12/13/2022, Expires: 02/12/2023 [facility] Work Phone: Comment on above: Expected: 12/13/2022, Expires: 3 Start: 12-13-2022 End: 02-12-2023 Comprehensive metabolic 2000 panel - Serum or Plasma COMP METABOLIC PANEL Lab Routine Type 2 diabetes mellitus with neurological manifestations, controlled (HCC) Expected: 12/13/2022, Expires: 02/12/2023 [facility] Work Phone: Comment on above: Expected: 12/13/2022, Expires: 3 Start: 12-13-2022 End: 02-12-2023 Hemoglobin A1c in Blood HGB A1C Lab Routine Type 2 diabetes mellitus with neurological manifestations, controlled (HCC) Expected: 12/13/2022, Expires: 02/12/2023 [facility] Work Phone: Comment on above: Expected: 12/13/2022, Expires: 3 Start: 12-13-2022 Hemoglobin A1c/Hemoglobin.total in Blood HBA1C [facility] Start: 12-13-2022 End: 02-12-2023 Lipid 1996 panel - Serum or Plasma LIPID PANEL BASIC Lab Routine Type 2 diabetes mellitus with neurological manifestations, controlled (HCC) Expected: 12/13/2022, Expires: 02/12/2023 [facility] Work Phone: Comment on above: Expected: 12/13/2022, Expires: 3 Start: 11-17-2022 ADVANCE DIRECTIVE DISCUSSION ADVANCE DIRECTIVE DISCUSSION [facility] Start: 11-17-2022 DEPRESSION ASSESSMENT DEPRESSION ASSESSMENT [facility] Start: 11-15-2022 Hepatitis B screening URINE ALBUMIN:CREATININE RATIO [facility] Start: 11-15-2022 Hepatitis B surface antibody level LDL CHOLESTEROL [facility] Start: 07-18-2022 Influenza vaccination INFLUENZA (#1) [facility] Start: 06-25-2022 Hepatitis C antibody, confirmatory test DILATED RETINAL EXAM [facility] Start: 06-04-2022 3 comp foot exam completed DIABETIC FOOT EXAM [facility] Start: 05-24-2022 End: 07-24-2022 Hemoglobin A1c in Blood HGB A1C Lab Routine Type 2 diabetes mellitus with neurological manifestations, controlled (HCC) Expected: 05/24/2022, Expires: 07/24/2022 [facility] Work Phone: Comment on above: Expected: 05/24/2022, Expires: Start: 05-24-2022 Hemoglobin A1c/Hemoglobin.total in Blood HBA1C [facility] Start: 02-13-2022 Hemoglobin A1c/Hemoglobin.total in Blood HBA1C [facility] Start: 11-17-2021 ADVANCE DIRECTIVE DISCUSSION ADVANCE DIRECTIVE DISCUSSION [facility] Start: 11-17-2021 DEPRESSION ASSESSMENT DEPRESSION ASSESSMENT [facility] Start: 06-02-2021 COVID-19 VACCINE (3 - Booster for Moderna series) COVID-19 VACCINE (3 - Booster for Moderna series) [facility] Start: 02-28-2021 COVID-19 VACCINE (3 - Booster for Moderna series) COVID-19 VACCINE (3 - Booster for Moderna series) [facility] Start: 02-28-2021 COVID-19 VACCINE (3 - Moderna series) COVID-19 VACCINE (3 - Moderna series) [facility] Start: 12-09-2012 SHINGRIX VACCINE (2 of 3) SHINGRIX VACCINE (2 of 3) [facility] Start: 2011 RSV Vaccine (1 - 1-dose 75+ series) RSV Vaccine (1 - 1-dose 75+ series) [facility] Start: 01-04-2009 Urine microalbumin profile DTAP,TDAP,TD (1 - Tdap) [facility] Start: 1953 Anxiety Screening Anxiety Screening [facility] Start: 1953 Depression Screening Depression Screening [facility] CALCIUM, 24 HR URINE CALCIUM, 24 HR URINE Lab Routine Hypercalcemia Ordered: 12/01/2024 [facility] Comment on above: Ordered: 12/01/2024 CREATININE, 24 HOUR URINE CREATI NINE, 24 HOUR URINE Lab Routine Hypercalcemia Ordered: 12/01/2024 [facility] Work Phone: Comment on above: Ordered: 12/01/2024 CT Chest WO contrast CT CHEST WO IVCON Radiology Routine Pneumonia of both lower lobes due to infectious organism 04/01/2025 11:01 AM EDT [facility] Work Phone: End: 01-12-2026 ECG COMPLETE ECG COMPLETE ECG Routine Primary hyperparathyroidism (HCC) 1 Occurrences starting 01/12/2025 until 01/12/2026 [facility] Comment on above: 1 Occurrences starting 01/12/2025 until 01/12/2026 Iron [Mass/mass] in Unspecified specimen [facility] Iron saturation [Mas s Fraction] in Serum or Plasma [facility] Patient Education ED Cellulitis ED Dog Bi te [facility] Work Phone: Patient referral [facility] Work Phone: REFER FOR ADMIT INTERVIEW REFER FOR ADMIT INTERVIEW Procedures Routine Primary hyperparathyroidism (HCC) Ordered: 01/12/2025 [facility] Comment on above: Ordered: 01/12/2025 End: 01-13-2026 SPECT+CT Parathyroid gland NM PARATHYROID W SPECT/CT Radiology Routine Hyperparathyroidism (HCC) 1 Occurrences starting 12/14/2024 until 01/13/2026 [facility] Work Phone: Comment on above: 1 Occurrences starting 12/14/2024 until 01/13/2026 SPIROMETRY WITH DILA TOR IF OBSTRUCTED SPIROMETRY WITH DILATOR IF OBSTRUCTED PFT Routine Chronic cough 01/21/2025 10:47 AM EST [facility] Work Phone: Total iron binding c apacity measurement [facility] Troponin T.cardiac [Mass/volume] in Serum or Plasma by High sensitivity method [facility] Troponin T.cardiac [Mass/volume] in Serum or Plasma by High sensitivity method [facility] End: 10-01-2025 US Kidney - bilateral and Urinary bladder US KIDNEY/BLADDER Radiology Routine 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 1 Occurrences starting 09/01/2024 until 10/01/2025 [facility] Comment on above: 1 Occurrences starting 09/01/2024 until 10/01/2025 US Kidney - bilatera l and Urinary bladder US KIDNEY/BLADDER Radiology Routine 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 11/05/2024 10:32 AM EST [facility] Work Phone: US Thyroid gland US THYROID/PARA THYROID (POC) ENDO USE ONLY Imaging Diagnostic Routine Hypercalcemia Ordered: 12/13/2024 [facility] Work Phone: Comment on above: Ordered: 12/13/2024 End: 01-12-2026 XR Bones Complete Survey Views XR BONE SURVEY ROUTINE Radiology Routine 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) 1 Occurrences starting 12/13/2024 until 01/12/2026 [facility] Work Phone: Comment on above: 1 Occurrences starting 12/13/2024 until 01/12/2026 [facility] Immunizations Immunization Date Immunization Notes Care Provider Suresh sky 07-26-2025 influenza, high dose seasonal, preservative-free Nithin Acevedo MD Work Phone: [facility] 07-28-2024 influenza, high dose seasonal, preservative-free Katherin Michelle PARK WORKER SUPERVISOR.HERBICIDE SPRAYER Work Phone: [facility] 07-28-2024 influenza virus vaccine, unspecified formulation Gisell Cassiyd PARK WORKER SUPERVISOR.HERBICIDE SPRAYER Work Phone: [facility] 03-27-2024 tetanus toxoid, redu robert diphtheria toxoid, and acellular pertussis vaccine, adsorbed [facility] 10-13-2023 influenza (HD-IIV4) vaccine, age 65+ yr, high dose, quadrivalent, PF (FLUZONE HIGH-DOSE) Katherin Seven PARK WORKER SUPERVISOR.HERBICIDE SPRAYER Work Phone: [facility] 10-13-2023 influenza virus vaccine, unspecified formulation Nithin Acevedo MD Work Phone: [facility] 04-20-2022 tetanus toxoid, redu robert diphtheria toxoid, and acellular pertussis vaccine, adsorbed LAURENT MYERS MD [facility] 11-23-2021 influenza virus vaccine, unspecified formulation LAURENT MYERS MD [facility] 11-23-2021 influenza, high-dose , quadrivalent vaccine (FLUZONE HIGH DOSE QUADRIVALENT) Nithin Acevedo MD Work Phone: [facility] 01-03-2021 COVID-19 vaccine, fu ll dose (MODERNA) Nithin Acevedo MD Work Phone: [facility] 12-07-2020 SARS-CoV-2 (COVID-19 ) [id number] vaccine LAURENT MYERS MD [facility] 12-06-2020 COVID-19 vaccine, fu ll dose (MODERNA) Nithin Acevedo MD Work Phone: [facility] 09-22-2020 influenza virus vaccine, unspecified formulation LAURENT MYERS MD [facility] 09-22-2020 influenza, high-dose , quadrivalent vaccine (FLUZONE HIGH DOSE QUADRIVALENT) Nithin Acevedo MD Work Phone: [facility] 08-16-2019 influenza virus vaccine, unspecified formulation LAURENT MYERS MD [facility] 08-16-2019 influenza, high dose seasonal, preservative-free Nithin Acevedo MD Work Phone: [facility] Work Phone: 07-22-2018 influenza virus vaccine, unspecified formulation LAURENT MYERS MD [facility] 07-22-2018 influenza, high dose seasonal, preservative-free Nithin Acevedo MD Work Phone: [facility] Work Phone: 09-20-2017 influenza virus vaccine, unspecified formulation LAURENT MYERS MD [facility] 09-20-2017 influenza, high dose seasonal, preservative-free Nithin Acevedo MD Work Phone: [facility] Work Phone: 08-16-2016 Influenza virus vaccine [facility] 08-16-2016 influenza, seasonal, injectable Nithin Acevedo MD Work Phone: [facility] Work Phone: 08-07-2016 influenza virus vaccine, unspecified formulation LAURENT MYERS MD [facility] 08-07-2016 influenza, high dose seasonal, preservative-free Nithin Acevedo MD Work Phone: [facility] 12-05-2015 pneumococcal conjuga te vaccine, 13 valent Nithin Acevedo MD Work Phone: [facility] 09-12-2015 influenza virus vaccine, unspecified formulation LAURENT MYERS MD [facility] 09-12-2015 influenza, high dose seasonal, preservative-free Nithin Acevedo MD Work Phone: [facility] 09-23-2014 influenza virus vaccine, unspecified formulation LAURENT MYERS MD [facility] 09-23-2014 influenza, seasonal, injectable Nithin Acevedo MD Work Phone: [facility] 10-12-2013 influenza virus vaccine, unspecified formulation Nithin Acevedo MD Work Phone: [facility] 10-14-2012 zoster vaccine, live Nithin Acevedo MD Work Phone: [facility] Work Phone: 08-21-2012 influenza virus vaccine, unspecified formulation iNthin Acevedo MD Work Phone: [facility] Work Phone: 08-26-2011 influenza virus vaccine, unspecified formulation Nithin Acevedo MD Work Phone: [facility] Work Phone: 10-09-2010 influenza virus vaccine, unspecified formulation Nithin Acevedo MD Work Phone: [facility] Work Phone: 10-01-2009 influenza virus vaccine, unspecified formulation Nithin Acevedo MD Work Phone: [facility] Work Phone: 01-03-2009 tetanus and diphther ia toxoids, not adsorbed, for adult use Nithin Acevedo MD Work Phone: [facility] 10-01-2007 influenza virus vaccine, unspecified formulation Nithin Acevedo MD Work Phone: [facility] Work Phone: 10-08-2006 influenza virus vaccine, unspecified formulation Nithin Acevedo MD Work Phone: [facility] 12-13-2005 TD(adult) unspecifie d formulation Nithin Acevedo MD Work Phone: [facility] Work Phone: 08-19-2004 influenza virus vaccine, unspecified formulation Nithin Acevedo MD Work Phone: [facility] Work Phone: 09-17-2003 pneumococcal polysaccharide vaccine, 23 valent Nithin Acevedo MD Work Phone: [facility] Work Phone: Payers Date Payer Category Payer Self-pay [id number] 2024 Medicare MMO MEDICARE MMO MEDADVANTAGE O [id number] 2024-[facility] [phone] [address] [place] [address] HMO [id number] 2024 Medicare (Managed Care) MMO ADAN DVANTAGE HMO [id number] 2024 Medicare [id number] 2022 Medicare [id number] 2017 Unknown PRIMETIME PRIMET ELA HMO POS [id number] 2017-Present [phone] [address] [place] [address] O [id number] 2017 Unknown [id number] 2014 Unknown [id number] 1936 Unknown [id number] [id number] .2. 1936 Unknown [id number] [id number] .2.62 1936 Unknown [id number] [id number] .2.62 1936 Unknown [id number] [id number] .2.627 1936 Unknown [id number] [id number] .2. 1936 Unknown [id number] [id number] .2.627 1936 Unknown [id number] [id number] .2.627 1936 Unknown [id number] 2.16.840.1.786806.3.579 .2.651 1936 Unknown [id number] 2.16.840.1.450754.3.579 .2.651 1936 Unknown [id number] [id number] .2.651 1936 Unknown [id number] 2.16.840.1.689841.3.579 .2.651 Unknown [id number] 2.16.840.1.532536.3.579 .2.462 Unknown [id number] 2.16.840.1.183656.3.579 .2.462 Unknown [id number] 2.16.840.1.270591.3.579 .2.462 Unknown [id number] 2.16.840.1.551262.3.579 .2.462 Unknown [id number] [id number] .2.462 Unknown [id number] [id number] .2.462 Unknown [id number] [id number] .2.462 Unknown [id number] [id number] .2.462 Social History Date Type Detail Facility Start: 05-13-2022 End: 07-21-2025 Tobacco smoking status NHIS Ex-smoker [facility] Work Phone: Start: 11-17-1953 End: 11-17-1974 History of tobacco use Current smoker [facility] Work Phone: Start: 11-17-1953 End: 01-01-1975 History of tobacco use Cigarette Smoker [facility] Work Phone: Start: 02-05-2022 End: 04-01-2025 Alcohol intake Current non-drinker of alcohol (finding) [facility] Start: 1935 Sex Assigned At Male C [facility] Start: 09-30-2020 End: 06-12-2022 Exposure to SARS-CoV-2 (event) Not sure [facility] Start: 10-18-2012 Tobacco smoking status Never [facility] Start: 04-08-2011 End: 02-15-2025 Cigarettes smoked current (pack per day) - Reported 3 [facility] Work Phone: Start: 04-08-2011 End: 07-28-2024 Tobacco use and exposure Smokeless tobacco non-user [facility] Work Phone: Start: 06-25-2022 End: 02-15-2025 Tobacco use panel [facility] Work Phone: Start: 05-28-2020 Gender identity Identifies as male gender (finding) [facility] Start: 03-27-2024 Tobacco smoking stat us TXIS Unknown if ever smoked [facility] Start: 04-16-2018 None [facility] Start: 04-16-2018 With Family [facility] Start: 04-17-2018 Cigarettes [facility] Has the [employer], [employer], [employer], or water company threatened to shut off services in your home in past 12Mo No [facility] Do you belong to any clubs or organizations such as mandaeism groups, unions, fraternal or athletic groups, or school groups? Yes [facility] Are you now , , , , never or living with a partner? [facility] How often to you hav e a drink containing alcohol? Never [facility] Do you feel stress - tense, restless, nervous, or anxious, or unable to sleep at night because your mind is troubled all the time - these days [OSQ] To some extent [facility] (I/We) worried wheth er (my/our) food would run out before (I/we) got money to buy more. Never true [facility] Do you feel stress - tense, restless, nervous, or anxious, or unable to sleep at night because your mind is troubled all the time - these days [OSQ] Only a little [facility] Medical Equipment Procedure Code Equipment Code Equipment Origin al Text Equipment Identifier Dates [id number], [id number], [id number], [id number] Start: 11-30-2018 End: 07-26-2025 Comment on above: Test twice daily. Dx : E11.49. Insulin: Yes. Test blood sugar twi ce a day DX:E11.49 DOUGH,CEMENT [id number] FDA Start: 04-14-2018 NATURAL KNEE PATELLA FDA Start: 04-14-2018 PERSONA FEM CR POROUS STD FDA Start: 04-14-2018 PSN ARTICULAR SURFACE FDA Start: 04-14-2018 PSN STEMMED TIBI AL COMP FDA Start: 04-14-2018 DOUGH,CEMENT [id number] FDA Start: 04-14-2018 NATURAL KNEE PATELLA FDA Start: 04-14-2018 PERSONA FEM CR POROUS STD FDA Start: 04-14-2018 PSN ARTICULAR SURFACE FDA Start: 04-14-2018 PSN STEMMED TIBI AL COMP FDA Start: 04-14-2018 DOUGH,CEMENT [id number] FDA Start: 04-14-2018 NATURAL KNEE PATELLA FDA Start: 04-14-2018 PERSONA FEM CR POROUS STD FDA Start: 04-14-2018 PSN ARTICULAR SURFACE FDA Start: 04-14-2018 PSN STEMMED TIBI AL COMP FDA Start: 04-14-2018 DOUGH,CEMENT [id number] FDA Start: 04-14-2018 NATURAL KNEE PATELLA FDA Start: 04-14-2018 PERSONA FEM CR POROUS STD FDA Start: 04-14-2018 PSN ARTICULAR SURFACE FDA Start: 04-14-2018 PSN STEMMED TIBI AL COMP FDA Start: 04-14-2018 Goals Date Patient Goal Desired Activity /State Functional Status Date Assessment Result Facility 07-25-2025 Total score [AUDIT-C] 0 07/25/20 4:18 PM EDT User, Ingris [facility] 07-25-2025 How often to you hav e a drink containing alcohol? Never 07/25/2025 4:18 PM EDT User, Ingris Never [facility] 07-25-2025 Functional status Patient does n ot drink 07/25/2025 4:18 PM EDT User, Ingris Patient does not drink [facility] 07-25-2025 How often do you hav e 6 or more drinks on 1 occasion? Never 07/25/2025 4:18 PM EDT UserIngris Never [facility] 07-23-2025 Functional status Ambulates [facility] Work Phone: 07-07-2022 Functional Status Yes [facility] 07-07-2022 Functional Status Door open, Room check performed [facility] 07-07-2022 [facility] Status [facility]-07-2022 Functional Status [facility] 07-06-2022 Functional Status [facility] 07-06-2022 Functional Status Up to chair Arian [facility] 07-05-2022 Functional Status Done [facility] 07-04-2022 Functional Status [facility] 07-04-2022 Functional Status 100 [facility] 07-04-2022 Functional Status [facility] 07-03-2022 Functional Status [facility] 07-03-2022 Functional Status [facility] 07-03-2022 Functional Status [facility] 07-03-2022 Functional Status SCD On/Re-appl ied right knee high [facility] 07-03-2022 Functional Status [facility] 07-02-2022 [facility] Status Patient Identi fied Identification band, Verbal [facility] 07-02-2022 Functional Status NPO Status Maintained [facility] 05-15-2022 Functional Status Identified as high risk, Fall ID band on, Room located near nursing station [facility] 05-15-2022 Functional Status [facility]22 Functional Status [facility] 05-15-2022 Functional Status is very i ndependent and able to assist as needed after discharge. pt and in process of selling acres and moving into a double wide 05-15-22 KR [facility] 05-15-2022 Functional Status [facility] 05-15-2022 Functional Status [facility] 05-14-2022 Functional Status [facility] 05-14-2022 Functional Status [facility] 05-14-2022 Functional Status Home independe ntly, Lives with spouse [facility] 05-14-2022 Functional Status ice chips and sips take n [facility] 05-14-2022 Functional Status [facility] 05-13-2022 Functional Status Sensory Defici ts Hearing deficit, left ear, Hearing deficit, right ear [facility] 05-17-2015 Are you deaf, or do you have serious difficulty hearing No 05/17/2015 1:58 PM EDT Farideh Gerardo MA No [facility] 05-17-2015 Are you blind, or do you have serious difficulty seeing, even when wearing glasses No 05/17/2015 1:58 PM EDT Farideh Gerardo MA No [facility] 05-17-2015 Do you have serious difficulty walking or climbing stairs No 05/17/2015 1:58 PM EDT Farideh Gerardo MA No [facility] 05-17-2015 Do you have difficul ty dressing or bathing No 05/17/2015 1:58 PM EDT Farideh Gerardo MA No [facility] 05-17-2015 Because of a physica l, mental, or emotional condition, do you have difficulty doing errands alone such as visiting a physician's office or shopping No 05/17/2015 1:58 PM EDT Farideh Gerardo MA No [facility] Mental Status Date Assessment Result Facility 07-23-2025 Cognitive function Voice/Name [facility] Work Phone: 07-07-2022 Mental Status Orientation Oriented x 4 [facility] 07-06-2022 Mental Status [facility] 07-06-2022 Mental Status [facility] 07-06-2022 Mental Status [facility] 07-03-2022 Mental Status [facility] 06-29-2022 Mental Status Oriented x 4 [facility] 05-15-2022 Mental Status [facility] 05-15-2022 Mental Status [facility] 05-17-2015 Because of a physica l, mental, or emotional condition, do you have serious difficulty concentrating, remembering, or making decisions No 05/17/2015 1:58 PM EDT Farideh Gerardo MA No [facility] Clinical Notes 09-20-2017 to 08-03-2025 Telephone Encounter - Ciera Conner LPN - 08/03/2025 11:15 AM EDTTelephone Encounter - Ciera Conner LPN - 08/03/2025 11:15 AM EDTTelephone Encounter - Bear Good RN - 08/02/2025 9:55 AM EDT Note Date & Type Note Facility 08-03-2025 Telephone encounter Note Fax rec'd from [employer] for PA on dexcom G7 sensors. This was approved from 07/25/25 to 07/23/26. [facility] 08-03-2025 Miscellaneous Notes Fax rec'd from [employer] for PA on dexcom G7 sensors. This was approved from 07/25/25 to 07/23/26. documented in this encounter [facility] 08-02-2025 Telephone encounter Note Ellen with [facility] OT is calling to let pcp know that she will be seeing patient daily for 2 weeks and this twice weekly for 2 weeks for strength training. [facility] 08-02-2025 Miscellaneous Notes Ellen with [facility] HH is calling to let pcp know that she will be seeing patient daily for 2 weeks and this twice weekly for 2 weeks for strength training. documented in this encounter [facility] 08-02-2025 Telephone encounter Note Moises- nurse- [facility] reports pt came out of hospital with orders to put cream to buttock wounds. Reports there are no buttock wounds so he is going to d/c this. Reports pt does have 2 very small open shallow vascular ulcer wounds- 1 on each ferguson. Reports he wrote orders to wash with soap and water, pat dry, put xeroform to each wound, wrap each in curlex, and apply compression to each. No call back needed. [facility] 08-02-2025 Miscellaneous Notes Moises- nurse- [facility] reports pt came out of hospital with orders to put cream to buttock wounds. Reports there are no buttock wounds so he is going to d/c this. Reports pt does have 2 very small open shallow vascular ulcer wounds- 1 on each ferguson. Reports he wrote orders to wash with soap and water, pat dry, put xeroform to each wound, wrap each in curlex, and apply compression to each. No call back needed. documented in this encounter [facility] 07-28-2025 Telephone encounter Note Chepe PT calling from [facility] to report plan of care for patient and PT will visit patient two times a week for three weeks. PT will work with patient on functional mobility training. No call back needed. Krissy Amor RN [facility] 07-28-2025 Miscellaneous Notes Chepe PT calling from [facility] to report plan of care for patient and PT will visit patient two times a week for three weeks. PT will work with patient on functional mobility training. No call back needed. Krissy Amor RN documented in this encounter [facility] 07-28-2025 Telephone encounter Note Order called back to [facility]. [facility] 07-28-2025 Miscellaneous Notes Order called back to [facility]. Okay plan of care and wound care. Draw labs next week. Niya calling from [facility] to report plan of care for patient and shelter will visit patient 2 times a week for 2 weeks and 1 time a week for 1 weeks. [facility] will work with patient on continuing education on CHF, monitoring CHF, monitoring edema, and monitoring weight. Patient's legs do have some drainage. Niya asking if provider ok with orders for covering legs with adaptic, abd pad, and kerlix daily and prn? Patient also has shearing on buttocks. Asking if provider ok with orders for Calmoseptine or zinc oxide to buttocks/coccyx? Nursing is going to try and draw labs that were ordered on Friday when the visit patient. Please review and Advise, Deisi Morelos RN documented in this encounter [facility] 07-28-2025 Telephone encounter Note oTri with [facility] called and is notified of providers message and instructions. She voices understanding, and states she will let Clemencia know. Anthony Ardon RN [facility] 07-28-2025 Miscellaneous Notes Tori with [facility] HH called and is notified of providers message and instructions. She voices understanding, and states she will let Clemencia know. Anthony Ardon RN Yes. Please also do wound care left leg and gluteal area. Clemencia with [facility] HH calls to ask if provider would be willing to follow their HH orders for SN, PT, and OT. Patient discharged over the weekend from [facility] after treatment for CHF exacerbation. Call back number is [phone]. Krissy Amor RN documented in this encounter [facility] 07-27-2025 Telephone encounter Note Okay plan of care and wound care. Draw labs next week. [facility] 07-27-2025 Telephone encounter Note Niya calling from [facility] to report plan of care for patient and shelter will visit patient 2 times a week for 2 weeks and 1 time a week for 1 weeks. penitentiary will work with patient on continuing education on CHF, monitoring CHF, monitoring edema, and monitoring weight. Patient's legs do have some drainage. Niya asking if provider ok with orders for covering legs with adaptic, abd pad, and kerlix daily and prn? Patient also has shearing on buttocks. Asking if provider ok with orders for Calmoseptine or zinc oxide to buttocks/coccyx? Nursing is going to try and draw labs that were ordered on Friday when the visit patient. Please review and Advise, Deisi Morelos RN [facility] 07-26-2025 Telephone encounter Note Yes. Please also do wound care left leg and gluteal area. [facility] 07-26-2025 Instructions Nithin Acevedo MD - 07/26/2025 1:26 PM EDT HAVE FASTING BLOOD WORK DONE NEXT WEEK. HOME HEALTH CAN DRAW. SEE DR STRICKLAND FOR FOLLOW UP. documented in this encounter [facility] 07-26-2025 Note HNO ID: [id number] Author: NITHIN ACEVEDO MD Service: ? Author Type: Physician Type: Progress Notes Filed: 07/26/2025 23:14 Note Text: Subjective Federico Hu is a 89 year old male here with his spouse. Patient presents with: Transition Of Care Transitional Care Management Progress Note The patients TCM visit was performed within the 7 days of discharge. Patient's Date of discharge: 07/23/2025 Date of initial coordinator contact after discharge: NA Discharge diagnosis: acute CHF, CKD stage IV, anemia, DM type 2, Atrial fibrillation, Medication review completed Yes Nithin Acevedo MD Provider Documentation: In follow-up of hospitalization, Federico Hu is a 89 year old male with the chief complaint of transition of care. I have reviewed the patient's last hospital course including diagnostic testing performed during this hospitalization, their discharge medications, and my assessment and plan with the patient and any family members present at today's visit. He presented to the ER with a few weeks of shortness of breath, edema, and weight gain. He was diuresed and fluid restricted. His echo showed an EF of 65%. Anemia was stable. Atrial fibrillation was stable and chronic anticoagulation was continued. His diabetes mellitus was stable off insulin, since he had discontinued insulin months before due to frequent hypoglycemia. He was discharged on 120 mg of furosemide daily (80 mg in AM and 40 mg in PM). He normally followed with [facility], Dr. Harman Strickland. He had not seen his commutator operator since March, having cancelled his follow up. He was not on Jardiance, but Farxiga. He was taking Crestor. The history is provided by the spouse, the patient and medical records. Review of Systems Constitutional: Negative for fatigue and fever. HENT: Negative for congestion. Respiratory: Negative for cough, shortness of breath and wheezing. Cardiovascular: Positive for leg swelling. Negative for chest pain and palpitations. Gastrointestinal: Negative for diarrhea, nausea and vomiting. Genitourinary: Negative for dysuria. Skin: Positive for wound. Neurological: Negative for dizziness and headaches. ACTIVE PROBLEM LIST Morbid Obesity With Bmi of 45.0-49.9, Adult ([facility]) Type 2 Diabetes Mellitus With Neurological Manifestations, Controlled ([facility]) Essential Hypertension Coronary Atherosclerosis Hyperlipemia Bph With Obstruction/Lower Urinary Tract Symptoms Anemia Oa (Osteoarthritis) of Knee Atrial Fibrillation ([facility]) S/P Cabg X 2 Rbbb (Right Bundle Branch Block) Encounter for Monitoring Anti-Arrhythmic Therapy Ckd (Chronic Kidney Disease) Stage 4, Gfr 15-29 Ml/Min ([facility]) Chronic Diastolic Chf (Congestive Heart Failure) ([facility]) 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 doxazosin (CARDURA) 2 mg tablet Take 1 tablet by mouth daily at bedtime. Blood-Glucose Meter,Continuous (DEXCOM G7 REGIONAL AGRONOMIST) [facility] Dx: E11.49. Insulin: Yes. Use to check blood sugars at least 4 times a day Blood-Glucose Sensor (DEXCOM G7 SENSOR) [facility] Dx: E11.49. Insulin: Yes. Apply new sensor every ten (10) days CPAP/BIPAP/OTHER Type .CPAPSettings into a note to see current settings/supplies/DME information. clotrimazole (LOTRIMIN) 1 % cream Apply 1 application to affected area two times a day. furosemide (LASIX) 40 mg tablet Take one(1) tablet daily in the morning. Take one(1) tablet in the evening, every other day. Per Cardiology. (Patient taking differently: Take 80mg daily in the morning. Take 40mg in the evening. Per Cardiology.) triamcinolone acetonide (KENALOG) 0.1 % cream Apply 1 application to affected area two times a day. Apply sparingly to top of ears apixaban (ELIQUIS) 2.5 mg tab(s) Take 1 tablet by mouth twice daily. Per Cardiology. sacubitril-valsartan (ENTRESTO) 97-103 mg tablet Take 1 tablet by mouth two times a day. Per Cardiology. atorvastatin (LIPITOR) 40 mg tablet Take 40 mg by mouth once daily. nitroglycerin sublingual (NITROQUICK) 0.4 mg SL tablet Dissolve 1 tablet under the tongue as needed for Chest Pain. If no pain relief call 911. semaglutide (OZEMPIC) 1 mg/dose (4 mg/3 mL) pen Inject 1 mg subcutaneously one time a week. Per medication program. insulin degludec (TRESIBA FLEXTOUCH U-200) 200 unit/mL (3 mL) injection Inject 64 Units subcutaneously every morning. Pt Assistance Medication. (Patient not taking: Reported on 07/26/2025) insulin aspart U-100 (NOVOLOG FLEXPEN U-100 INSULIN) 100 unit/mL (3 mL) Inject 8 Units subcutaneously daily with dinner. Patient assistance. (will switch from Humalog sample to Novolog when supply arrives) insulin needles, DIS (more content not included)... [facility] 07-26-2025 History of Presen t illness Narrative Subjective Federico Hu is a 89 year old male here with his spouse. Patient presents with: Transition Of Care Transitional Care Management Progress Note The patients TCM visit was performed within the 7 days of discharge. Patient's Date of discharge: 07/23/2025 Date of initial coordinator contact after discharge: NA Discharge diagnosis: acute CHF, CKD stage IV, anemia, DM type 2, Atrial fibrillation, Medication review completed Yes Nithin Acevedo MD Provider Documentation: In follow-up of hospitalization, Federico Hu is a 89 year old male with the chief complaint of transition of care. I have reviewed the patient's last hospital course including diagnostic testing performed during this hospitalization, their discharge medications, and my assessment and plan with the patient and any family members present at today's visit. He presented to the ER with a few weeks of shortness of breath, edema, and weight gain. He was diuresed and fluid restricted. His echo showed an EF of 65%. Anemia was stable. Atrial fibrillation was stable and chronic anticoagulation was continued. His diabetes mellitus was stable off insulin, since he had discontinued insulin months before due to frequent hypoglycemia. He was discharged on 120 mg of furosemide daily (80 mg in AM and 40 mg in PM). He normally followed with [facility], Dr. Harman Strickland. He had not seen his commutator operator since March, having cancelled his follow up. He was not on Jardiance, but Farxiga. He was taking Crestor. The history is provided by the spouse, the patient and medical records. Review of Systems Constitutional: Negative for fatigue and fever. HENT: Negative for congestion. Respiratory: Negative for cough, shortness of breath and wheezing. Cardiovascular: Positive for leg swelling. Negative for chest pain and palpitations. Gastrointestinal: Negative for diarrhea, nausea and vomiting. Genitourinary: Negative for dysuria. Skin: Positive for wound. Neurological: Negative for dizziness and headaches. ACTIVE PROBLEM LIST Morbid Obesity With Bmi of 45.0-49.9, Adult ([facility]) Type 2 Diabetes Mellitus With Neurological Manifestations, Controlled ([facility]) Essential Hypertension Coronary Atherosclerosis Hyperlipemia Bph With Obstruction/Lower Urinary Tract Symptoms Anemia Oa (Osteoarthritis) of Knee Atrial Fibrillation ([facility]) S/P Cabg X 2 Rbbb (Right Bundle Branch Block) Encounter for Monitoring Anti-Arrhythmic Therapy Ckd (Chronic Kidney Disease) Stage 4, Gfr 15-29 Ml/Min ([facility]) Chronic Diastolic Chf (Congestive Heart Failure) ([facility]) 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 doxazosin (CARDURA) 2 mg tablet Take 1 tablet by mouth daily at bedtime. Blood-Glucose Meter,Continuous (DEXCOM G7 REGIONAL AGRONOMIST) [facility] Dx: E11.49. Insulin: Yes. Use to check blood sugars at least 4 times a day Blood-Glucose Sensor (DEXCOM G7 SENSOR) [facility] Dx: E11.49. Insulin: Yes. Apply new sensor every ten (10) days CPAP/BIPAP/OTHER Type .CPAPSettings into a note to see current settings/supplies/DME information. clotrimazole (LOTRIMIN) 1 % cream Apply 1 application to affected area two times a day. furosemide (LASIX) 40 mg tablet Take one(1) tablet daily in the morning. Take one(1) tablet in the evening, every other day. Per Cardiology. (Patient taking differently: Take 80mg daily in the morning. Take 40mg in the evening. Per Cardiology.) triamcinolone acetonide (KENALOG) 0.1 % cream Apply 1 application to affected area two times a day. Apply sparingly to top of ears apixaban (ELIQUIS) 2.5 mg tab(s) Take 1 tablet by mouth twice daily. Per Cardiology. sacubitril-valsartan (ENTRESTO) 97-103 mg tablet Take 1 tablet by mouth two times a day. Per Cardiology. atorvastatin (LIPITOR) 40 mg tablet Take 40 mg by mouth once daily. nitroglycerin sublingual (NITROQUICK) 0.4 mg SL tablet Dissolve 1 tablet under the tongue as needed for Chest Pain. If no pain relief call 911. semaglutide (OZEMPIC) 1 mg/dose (4 mg/3 mL) pen Inject 1 mg subcutaneously one time a week. Per medication program. insulin degludec (TRESIBA FLEXTOUCH U-200) 200 unit/mL (3 mL) injection Inject 64 Units subcutaneously every morning. Pt Assistance Medication. (Patient not taking: Reported on 07/26/2025) insulin aspart U-100 (NOVOLOG FLEXPEN U-100 INSULIN) 100 unit/mL (3 mL) Inject 8 Units subcutaneously daily with dinner. Patient assistance. (will switch from Humalog sample to Novolog when supply arrives) insulin needles, DISPOSABLE, 31 gauge x 5/16 ndle Test blood sugar twice a day DX:E11.49 MULTIVITAMIN TAB Take one(1) tablet daily. No current facility-administered medications for this visit. Objective BP (!) 103/45 (BP Site: Right Arm, BP Cuff Size: Large Adult) Pulse 64 Temp (!) 35.7 C (96.3 F) (Temporal) Wt (!) 161.9 kg (356 lb 14.8 oz) SpO2 96% BMI 49.09 kg/m Physical Exam Constitutional: General: He is not in acute distress. Appearance: He is obese. He is not ill-appearing or diaphoretic. HENT: Head: Normocephalic. Nose: No congestion or rhinorrhea. Neck: Vascular: No JVD. Cardiovascular: Rate and Rhythm: Normal rate and regular rhythm. Heart sounds: S1 normal and S2 normal. No murmur heard. No gallop. Comments: Fissure, ulcer with scant clear drainage, left anterior leg above the ankle. Pulmonary: Effort: No respiratory distress. Breath sounds: Examination of the right-lower field reveals rales. Rales present. No wheezing. Abdominal: Tenderness: There is no abdominal tenderness. Musculoskeletal: Right lower le+ Pitting Edema present. Left lower le+ Pitting Edema present. Skin: Comments: Stage 1 medial left gluteal ulcer 2 x 1 cm. No drainage or cellulitis. Neurological: General: No focal deficit present. Mental Status: He is alert. Comments: Wheelchair bound. ASSESSMENT/PLAN: 1. Chronic diastolic CHF (congestive heart failure) ([facility]) - ICD9: 428.32, 428.0, ICD10: I50.32 (primary diagnosis) - HFpEF 50+ - Decompensated - Continue current medications - FUROSEMIDE 40 MG TABLET - BASIC METABOLIC PANEL 2. Encounter for immunization - ICD9: V03.89, ICD10: Z23 - INFLUENZA VACCINE, PRSV FREE, AGE 65+ YR, HIGH DOSE, TRIVALENT (FLUZONE HIGH-DOSE) 3. CKD (chronic kidney disease) stage 4, GFR 15-29 ml/min ([facility]) - ICD9: 585.4, ICD10: N18.4 - eGFR: 21 Worsening - CONSULT TO NEPHROLOGY - BASIC METABOLIC PANEL 4. 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) - ICD9: 285.21, 585.4, ICD10: N18.4, D63.1 - eGFR: 21 Worsening - Counseled on avoiding NSAIDs, adequate hydration - COMPLETE BLOOD COUNT 5. Type 2 diabetes mellitus with neurological manifestations, controlled ([facility]) - ICD9: 250.60, ICD10: E11.49 - Worsening control - Continue current medications. Ask Dr. Strickland to increase Farxiga. - HEMOGLOBIN A1C - His CGM read 188, while POC glucose was 168. This was discussed. - Continue staying off insulin for now. 6. Atrial fibrillation, unspecified type ([facility]) - ICD9: 427.31, ICD10: I48.91 - Controlled. - Continue DOAC. 7. Morbid obesity with BMI of 45.0-49.9, adult ([facility]) - ICD9: 278.01, V85.42, ICD10: E66.01, Z68.42 Weight increasing - We discussed GLP1, but he did not tolerate the medication. 8. Hyperlipidemia, unspecified hyperlipidemia type - ICD9: 272.4, ICD10: E78.5 - Control undetermined, due for labs - Continue current medications - Counseled on healthy diet and regular exercise - LIPID PANEL, FASTING 9. Thrombocytopenia - ICD9: 287.5, ICD10: D69.6 - Monitor. 10. Venous stasis ulcer of other part of left lower leg limited to breakdown of skin without varicose veins ([facility]CC) - ICD9: 459.81, 707.19, ICD10: I87.2, L97.821 - Wound care discussed. - Have home daquan follow. 11. Pressure injury of left buttock, stage 1 - ICD9: 707.05, 707.21, ICD10: L89.321 - Wound care discussed. Precautions. - Have Home Health follow. Nithin Acevedo MD documented in this encounter [facility] 07-25-2025 Telephone encounter Note Clemencia with [facility] HH calls to ask if provider would be willing to follow their HH orders for SN, PT, and OT. Patient discharged over the weekend from [facility] after treatment for CHF exacerbation. Call back number is [phone]. Krissy Amor, RN [facility] 07-25-2025 Telephone encounter Note Aliza notified, refill to be done at follow-up appt. Patient has enough medication until appt. Daxa Morin LPN [facility] 07-25-2025 Miscellaneous Notes Aliza notified, refill to be done at follow-up appt. Patient has enough medication until appt. Daxa Morin LPN Patient's spouse calling in stating [facility] changed his Lasix dosage to 80 mg in the morning, and 40 mg at night. She is requesting this be sent to their [facility] in [place]. Please review and advise. Abbie Davalos July 25, 2025 9:51 AM documented in this encounter [facility] 07-25-2025 Telephone encounter Note Patient's spouse calling in stating WC changed his Lasix dosage to 80 mg in the morning, and 40 mg at night. She is requesting this be sent to their [facility] in [place]. Please review and advise. Abbie Davalos July 25, 2025 9:51 AM [facility] 07-23-2025 Hospital Discharg e instructions Additional Instructions Date of Discharge: 07/23/25 [facility] Work Phone: 07-23-2025 Discharge summary Note Date/Time July 23, 2025 11:01am [facility] Medical Records Department [address] [place] [address] Discharge Summary 07/23/25 1057 MR#: [id number] Acct: [id number] Name: FEDERICO HU Rep #:[id number] : 1935 89 From: Nathaniel Beverly MD PCP: Dr. Nithin Acevedo MD Status:A DM IN Location: [place] [address] Providers Date of Admission: 07/21/25 Date of Discharge: 07/23/25 Primary Care Physician: Dr. Nithin Acevedo MD Reason For Visit: CHF Diagnosis Discharge Diagnosis (1) CKD (chronic kidney disease): Status: Chronic Code(s): N18.9 - Chronic kidney disease, unspecified (2) Anemia: Status: Acute Code(s): D64.9 - Anemia, unspecified (3) CHF (congestive heart failure): Status: Acute Code(s): I50.9 - Heart failure, unspecified Plan: Patient is an 89-year-old gentleman who presented with progressive shortness of breath 1. Acute congestive heart failure (unspecified) ? Patient has been admitted to a monitored bed as part of his evaluation [id number] echo serial cardiac enzymes as well as TSH. Patient was also placed on fluidrestriction strict input and output Daily weight low-sodium diet as well as diuretic therapy with furosemide. Also placed on supplemental oxygen titrated to keep saturation greater than 90 ? 07/22/2025; patient admitted to improvement in his symptoms. Will continue withcurrent diuretic therapy. Will follow-up on 2D echo result ? 07/23/2025; patient 2D echo demonstrated EF of 65% 2. Chronic kidney disease ?Stage IV ? Current baseline creatinine unknown patient last creatinine on the EMR was 2.02 creatinine on admission was 3.12. Ordered renal duplex for further eval. Consult placed to nephrology 3. Anemia ? Secondary to chronic disorder, ordered iron studies and subsequent monitoring H&H and transfuse if patient becomes symptomatic or hemoglobin falls below 7 4. Diabetes mellitus type 2 ? Patient is on long-acting insulin at home. Patient has been experiencing hypoglycemic episodes held the long-acting insulin placed on Accu-Cheks ACHS with sliding scale coverage 4. Paroxysmal A-fib/flutter ? Rate controlled on systemic anticoagulation with apixaban did continue 5. Class III obesity with a BMI of 51.3 ? Complicating care weight loss advised 6. Dyslipidemia ?Patient is on statin therapy, continued at home dose 7. Thrombocytopenia ? Patient has some chronicity to his low platelet count will monitor with daily CBC with differential 8. DVT prophylaxis ? Already anticoagulated with apixaban will continue 9. Hypermagnesemia ? Patient home meds reviewed not on any magnesium supplement will repeat levels in a.m. Time spent in the patient's overall evaluation,decision-making process, review of diagnostic data, adjustment of management, discussion with other providers, nursing nursing and ancillary staff involved in patient's care documentation, 38 Minutes Medications at Discharge Home Medications doxazosin 2 mg tablet 2 mg PO QHS PROSTATE 07/02/16 multivitamin with folic acid 400 mcg tablet (Thera) 1 tab PO DAILY SUPPLEMENT 07/02/16 nitroglycerin 0.4 mg sublingual tablet (Nitrostat) 0.4 mg sublingual PRN PRN CHEST PAIN 04/01/18 apixaban 2.5 mg tablet (Eliquis) 2.5 mg PO BID blood thinner 03/27/24 insulin degludec 100 unit/mL subcutaneous solution (Tresiba U-100 Insulin) 40 unit subcut DAILY blood sugar 03/27/24 atorvastatin 40 mg tablet 40 mg PO DAILY cholesterol 07/21/25 empagliflozin 10 mg tablet (Jardiance) 10 mg PO DAILY 07/21/25 sacubitril 97 mg-valsartan 103 mg tablet (Entresto) 1 tab PO BID heart 07/21/25 furosemide 40 mg tablet 40 mg PO BID fluid #180 tabs 07/23/25 Physical Exam Narrative GENERAL: cooperative HEENT: Atraumatic; normocephalic EYES; Anicteric, Normal Conjunctiva NECK; supple, normal thyroid, RESPIRATORY: Diminished to auscultation CARDIOVASCULAR: Irregular S1-S2 GI: soft, normoactive bowel sounds, : No Renal angle tenderness; EXTREMITIES: 2+ pitting edema MUSCULOSKELETAL: no muscle wasting NEURO: Awake; no lateralizing signs. SKIN: Bilateral lower extremity stasis dermatitis PSYCH; Flat affect Weight / BMI Weight Weight: 166.196 kg Body Mass Index (BMI) 48.3 ABG / Lab / Microbiology Data 07/23/25 04:21 07/23/25 04:21 Laboratory: Laboratory Results - last 24 hr 07/22/25 11:18: POC Glucose 134 H 07/22/25 16:16: POC Glucose 147 H 07/22/25 21:19: POC Glucose 150 H 07/23/25 04:21: WBC 5.4, RBC 3.04 L, Hgb 8.0 L, Hct 26.5 L, MCV 87.2, MCH 26.3 L, MCHC 30.2 L, RDW Std Deviation 47.6 H, RDW Coeff of Jazmin 14.8 H, Plt Count 110 L, MPV 12.4 H, Immature Gran % (Auto) 0.200, Neut % (Auto) 72.8 H, Lymph % (Auto) 12.7 L, [place] % (Auto) 11.2 H, Eos % (Auto) 2.4, Baso % (Auto) 0.7, Absolute Neuts (auto) 3.9, Absolute Lymphs (auto) 0.68 L, Nucleated RBC % 0, Sodium 143, Potassium 4.4, Chloride 106, Carbon Dioxide 25.8, Anion Gap 11, BUN 64 H, Creatinine 3.34 H, Estim Creat Clear Calc 24.74 L, Est GFR (MDRD) Non-Af 17 L, BUN/Creatinine Ratio 19.2, Glucose 150 H, Calcium 10.6 07/23/25 06:08: POC Glucose 126 H Radiography Diagnostic Testing: Radiology Impression Echocardiogram 07/21/25 12:48 Interpretation Summary The estimated ejection fraction is 65 %. Unable to assess diastolic dysfunction. Trivial mitral valve insufficiency. Ordering Physician: Nathaniel Beverly Referring Physician: Nithin Acevedo Performed By: Tracie Restrepo RDCS, RVT D/C Instructions Discharge Activity: Return to Normal Activity Call your doctor if you observe: Fever of 101 or Higher, Shortness of breath, Fainting spells and Chest pain DC O2, CPAP, BIPAP Needs Home O2 Discharge instructions: No Meaningful Use Info Meaningful Use Meaningful Use Diagnoses (Choose all that apply): CHF CHF BRIAN/ARB ordered at discharge?: Yes Documented LVEF (%): 65 Discharge Plan Admission Admit Date/Time: 07/21/25 11:45 Attending Provider: Nathaniel Beverly Primary Care Provider: Nithin Acevedo Discharge Orders/Prescriptions Prescriptions: Continued doxazosin 2 MG tablet 2 mg PO QHS Patient Comments: PROSTATE multivitamin with folic acid [Thera] 1 TABLET tablet 1 tab PO DAILY Patient Comments: SUPPLEMENT nitroglycerin [Nitrostat] 0.4 MG tablet, sublingual 0.4 mg sublingual PRN PRN (Reason: CHEST PAIN) insulin degludec [Tresiba U-100 Insulin] 100 unit/mL solution 40 unit subcut DAILY Eliquis 2.5 mg tablet 2.5 mg PO BID atorvastatin 40 mg tablet 40 mg PO DAILY Jardiance 10 mg tablet 10 mg PO DAILY sacubitril-valsartan [Entresto] 97-103 mg tablet 1 tab PO BID furosemide 40 mg tablet 40 mg PO BID Qty: 180 0RF Rx Instructions: 80 mg in the morning and 40 mg in the evening Referrals / Follow Up: Nithin Acevedo MD [Primary Care Provider] - In 1 Week (For repeat BMP as wellas CBC with differential) Disposition Disposition (needs filled in before D/C Order can be placed): Home, Self Care Charges/Coding Visit Charges Inpatient E&M: 89705 Disch Hosp >30min 07/23/25 1101 <Electronically signed by Nathaniel Beverly MD> Cosigner Signature (if applicable): CC: Dr. Nathaniel Beverly MD; Dr. Nithin Acevedo MD~ Signed [facility] Work Phone: 1(723) 634-444909-06-2025 Progress note Author Nathaniel Beverly [facility] Note Date/Time July 23, 2025 10:56am [facility] Medical Records Department [address] [place] [address] Progress Note - Hospitalist 07/23/25 0746 MR#: [id number] Acct: [id number] Name: FEDERICO HU Rep #:[id number] : 1935 89 From: Nathaniel Beverly MD PCP: Dr. Nithin Acevedo MD Status:A DM IN Location: [place] [address] Reason for Visit Chief Complaint: Shortness of breath Subjective Subjective Patient seen symptoms continue to improve. Patient continues to diurese well. Had a discussion with patient regarding ongoing plans. Patient requesting to bedischarged Objective Data Objective Data Vital Signs: Vital Signs Temp Pulse Resp BP Pulse Ox O2 Del Method 98.0 F 61 18 116/44 L 93 Room Air 07/23/25 04:13 07/23/25 04:13 07/23/25 04:13 07/23/25 04:13 07/23/25 04:13 07/23/25 04:34 Oxygen Delivery Method Room Air Weight: 166.196 kg Body Mass Index (BMI) 48.3 Intake & Output: Intake and Output for Last 24 Hours 07/21/25 07/22/25 07/23/25 23:59 23:59 23:59 Intake Total 700 / 700 450 / 450 Output Total 1600 / 1600 1350 / 2050 1025 / 1025 Balance -900 / -900 -900 / -1600 -1025 / -1025 Lab / Micro Data 07/23/25 04:21 07/23/25 04:21 Labs: Laboratory Results - last 24 hr 07/22/25 11:18: POC Glucose 134 H 07/22/25 16:16: POC Glucose 147 H 07/22/25 21:19: POC Glucose 150 H 07/23/25 04:21: WBC 5.4, RBC 3.04 L, Hgb 8.0 L, Hct 26.5 L, MCV 87.2, MCH 26.3 L, MCHC 30.2 L, RDW Std Deviation 47.6 H, RDW Coeff of Jazmin 14.8 H, Plt Count 110 L, MPV 12.4 H, Immature Gran % (Auto) 0.200, Neut % (Auto) 72.8 H, Lymph % (Auto) 12.7 L, [place] % (Auto) 11.2 H, Eos % (Auto) 2.4, Baso % (Auto) 0.7, Absolute Neuts (auto) 3.9, Absolute Lymphs (auto) 0.68 L, Nucleated RBC % 0, Sodium 143, Potassium 4.4, Chloride 106, Carbon Dioxide 25.8, Anion Gap 11, BUN 64 H, Creatinine 3.34 H, Estim Creat Clear Calc 24.74 L, Est GFR (MDRD) Non-Af 17 L, BUN/Creatinine Ratio 19.2, Glucose 150 H, Calcium 10.6 07/23/25 06:08: POC Glucose 126 H Radiography Diagnostic Testing: Radiology Impression Echocardiogram 07/21/25 12:48 Interpretation Summary The estimated ejection fraction is 65 %. Unable to assess diastolic dysfunction. Trivial mitral valve insufficiency. Ordering Physician: Nathaniel Beverly Referring Physician: Nithin Acevedo Performed By: Tracie Restrepo, WESLEY, RVT Physical Exam Narrative GENERAL: cooperative HEENT: Atraumatic; normocephalic EYES; Anicteric, Normal Conjunctiva NECK; supple, normal thyroid, RESPIRATORY: Diminished to auscultation CARDIOVASCULAR: Irregular S1-S2 GI: soft, normoactive bowel sounds, : No Renal angle tenderness; EXTREMITIES: 2+ pitting edema MUSCULOSKELETAL: no muscle wasting NEURO: Awake; no lateralizing signs. SKIN: Bilateral lower extremity stasis dermatitis PSYCH; Flat affect Assessment & Plan Assessment/Plan (1) CKD (chronic kidney disease): (2) Anemia: (3) CHF (congestive heart failure): PLAN: Patient is an 89-year-old gentleman who presented with progressive shortness of breath 1. Acute congestive heart failure (unspecified) ? Patient has been admitted to a monitored bed as part of his evaluation [id number] echo serial cardiac enzymes as well as TSH. Patient was also placed on fluidrestriction strict input and output Daily weight low-sodium diet as well as diuretic therapy with furosemide. Also placed on supplemental oxygen titrated to keep saturation greater than 90 ? 07/22/2025; patient admitted to improvement in his symptoms. Will continue withcurrent diuretic therapy. Will follow-up on 2D echo result ? 07/23/2025; patient 2D echo demonstrated EF of 65% 2. Chronic kidney disease ?Stage IV ? Current baseline creatinine unknown patient last creatinine on the EMR was 2.02 creatinine on admission was 3.12. Ordered renal duplex for further eval. Consult placed to nephrology 3. Anemia ? Secondary to chronic disorder, ordered iron studies and subsequent monitoring H&H and transfuse if patient becomes symptomatic or hemoglobin falls below 7 4. Diabetes mellitus type 2 ? Patient is on long-acting insulin at home. Patient has been experiencing hypoglycemic episodes held the long-acting insulin placed on Accu-Cheks ACHS with sliding scale coverage 4. Paroxysmal A-fib/flutter ? Rate controlled on systemic anticoagulation with apixaban did continue 5. Class III obesity with a BMI of 51.3 ? Complicating care weight loss advised 6. Dyslipidemia ?Patient is on statin therapy, continued at home dose 7. Thrombocytopenia ? Patient has some chronicity to his low platelet count will monitor with daily CBC with differential 8. DVT prophylaxis ? Already anticoagulated with apixaban will continue 9. Hypermagnesemia ? Patient home meds reviewed not on any magnesium supplement will repeat levels in a.m. Time spent in the patient's overall evaluation,decision-making process, review of diagnostic data, adjustment of management, discussion with other providers, nursing nursing and ancillary staff involved in patient's care documentation, 38 Minutes Charges/Coding Visit Charges Inpatient E&M: 78543 Subs Hosp L2 07/23/25 1056 <Electronically signed by Nathaniel Beverly MD> Cosigner Signature (if applicable): CC: ~ Signed [facility] Work Phone: 1(210) 379-766709-06-2025 Discharge summary [facility] Medical Records Department [address] [place] [address] Discharge Summary 07/23/25 1057 MR#: [id number] Acct: [id number] Name: FEDERICO HU Rep #:[id number] : 1935 89 From: Nathaniel Beverly MD PCP: Dr. Nithin Acevedo MD Status:A DM IN Location: [place] [address] Providers Date of Admission: 07/21/25 Date of Discharge: 07/23/25 Primary Care Physician: Dr. Nithin Acevedo MD Reason For Visit: CHF Diagnosis Discharge Diagnosis (1) CKD (chronic kidney disease): Status: Chronic Code(s): N18.9 - Chronic kidney disease, unspecified (2) Anemia: Status: Acute Code(s): D64.9 - Anemia, unspecified (3) CHF (congestive heart failure): Status: Acute Code(s): I50.9 - Heart failure, unspecified Plan: Patient is an 89-year-old gentleman who presented with progressive shortness of breath 1. Acute congestive heart failure (unspecified) ? Patient has been admitted to a monitored bed as part of his evaluation [id number] echo serial cardiac enzymes as well as TSH. Patient was also placed on fluidrestriction strict input and output Daily weight low-sodium diet as well as diuretic therapy with furosemide. Also placed on supplemental oxygen titrated to keep saturation greater than 90 ? 07/22/2025; patient admitted to improvement in his symptoms. Will continue withcurrent diuretic therapy. Will follow-up on 2D echo result ? 07/23/2025; patient 2D echo demonstrated EF of 65% 2. Chronic kidney disease ?Stage IV ? Current baseline creatinine unknown patient last creatinine on the EMR was 2.02 creatinine on admission was 3.12. Ordered renal duplex for further eval. Consult placed to nephrology 3. Anemia ? Secondary to chronic disorder, ordered iron studies and subsequent monitoring H&H and transfuse if patient becomes symptomatic or hemoglobin falls below 7 4. Diabetes mellitus type 2 ? Patient is on long-acting insulin at home. Patient has been experiencing hypoglycemic episodes held the long-acting insulin placed on Accu-Cheks ACHS with sliding scale coverage 4. Paroxysmal A-fib/flutter ? Rate controlled on systemic anticoagulation with apixaban did continue 5. Class III obesity with a BMI of 51.3 ? Complicating care weight loss advised 6. Dyslipidemia ?Patient is on statin therapy, continued at home dose 7. Thrombocytopenia ? Patient has some chronicity to his low platelet count will monitor with daily CBC with differential 8. DVT prophylaxis ? Already anticoagulated with apixaban will continue 9. Hypermagnesemia ? Patient home meds reviewed not on any magnesium supplement will repeat levels in a.m. Time spent in the patient's overall evaluation,decision-making process, review of diagnostic data, adjustment of management, discussion with other providers, nursing nursing and ancillary staff involved in patient's care documentation, 38 Minutes Medications at Discharge Home Medications doxazosin 2 mg tablet 2 mg PO QHS PROSTATE 07/02/16 multivitamin with folic acid 400 mcg tablet (Thera) 1 tab PO DAILY SUPPLEMENT 07/02/16 nitroglycerin 0.4 mg sublingual tablet (Nitrostat) 0.4 mg sublingual PRN PRN CHEST PAIN 04/01/18 apixaban 2.5 mg tablet (Eliquis) 2.5 mg PO BID blood thinner 03/27/24 insulin degludec 100 unit/mL subcutaneous solution (Tresiba U-100 Insulin) 40 unit subcut DAILY blood sugar 03/27/24 atorvastatin 40 mg tablet 40 mg PO DAILY cholesterol 07/21/25 empagliflozin 10 mg tablet (Jardiance) 10 mg PO DAILY 07/21/25 sacubitril 97 mg-valsartan 103 mg tablet (Entresto) 1 tab PO BID heart 07/21/25 furosemide 40 mg tablet 40 mg PO BID fluid #180 tabs 07/23/25 Physical Exam Narrative GENERAL: cooperative HEENT: Atraumatic; normocephalic EYES; Anicteric, Normal Conjunctiva NECK; supple, normal thyroid, RESPIRATORY: Diminished to auscultation CARDIOVASCULAR: Irregular S1-S2 GI: soft, normoactive bowel sounds, : No Renal angle tenderness; EXTREMITIES: 2+ pitting edema MUSCULOSKELETAL: no muscle wasting NEURO: Awake; no lateralizing signs. SKIN: Bilateral lower extremity stasis dermatitis PSYCH; Flat affect Weight / BMI Weight Weight: 166.196 kg Body Mass Index (BMI) 48.3 ABG / Lab / Microbiology Data 07/23/25 04:21 07/23/25 04:21 Laboratory: Laboratory Results - last 24 hr 07/22/25 11:18: POC Glucose 134 H 07/22/25 16:16: POC Glucose 147 H 07/22/25 21:19: POC Glucose 150 H 07/23/25 04:21: WBC 5.4, RBC 3.04 L, Hgb 8.0 L, Hct 26.5 L, MCV 87.2, MCH 26.3 L, MCHC 30.2 L, RDW Std Deviation 47.6 H, RDW Coeff of Jazmin 14.8 H, Plt Count 110 L, MPV 12.4 H, Immature Gran % (Auto) 0.200, Neut % (Auto) 72.8 H, Lymph % (Auto) 12.7 L, [place] % (Auto) 11.2 H, Eos % (Auto) 2.4, Baso % (Auto) 0.7, Absolute Neuts (auto) 3.9, Absolute Lymphs (auto) 0.68 L, Nucleated RBC % 0, Sodium 143, Potassium 4.4, Chloride 106, Carbon Dioxide 25.8, Anion Gap 11, BUN 64 H, Creatinine 3.34 H, Estim Creat Clear Calc 24.74 L, Est GFR (MDRD) Non-Af 17 L, BUN/Creatinine Ratio 19.2, Glucose 150 H, Calcium 10.6 07/23/25 06:08: POC Glucose 126 H Radiography Diagnostic Testing: Radiology Impression Echocardiogram 07/21/25 12:48 Interpretation Summary The estimated ejection fraction is 65 %. Unable to assess diastolic dysfunction. Trivial mitral valve insufficiency. Ordering Physician: Nathaniel Beverly Referring Physician: Nithin Acevedo Performed By: Tracie Restrepo, WESLEY, RVT D/C Instructions Discharge Activity: Return to Normal Activity Call your doctor if you observe: Fever of 101 or Higher, Shortness of breath, Fainting spells and Chest pain DC O2, CPAP, BIPAP Needs Home O2 Discharge instructions: No Meaningful Use Info Meaningful Use Meaningful Use Diagnoses (Choose all that apply): CHF CHF BRIAN/ARB ordered at discharge?: Yes Documented LVEF (%): 65 Discharge Plan Admission Admit Date/Time: 07/21/25 11:45 Attending Provider: Nathaniel Beverly Primary Care Provider: Nithin Acevedo Discharge Orders/Prescriptions Prescriptions: Continued doxazosin 2 MG tablet 2 mg PO QHS Patient Comments: PROSTATE multivitamin with folic acid [Thera] 1 TABLET tablet 1 tab PO DAILY Patient Comments: SUPPLEMENT nitroglycerin [Nitrostat] 0.4 MG tablet, sublingual 0.4 mg sublingual PRN PRN (Reason: CHEST PAIN) insulin degludec [Tresiba U-100 Insulin] 100 unit/mL solution 40 unit subcut DAILY Eliquis 2.5 mg tablet 2.5 mg PO BID atorvastatin 40 mg tablet 40 mg PO DAILY Jardiance 10 mg tablet 10 mg PO DAILY sacubitril-valsartan [Entresto] 97-103 mg tablet 1 tab PO BID furosemide 40 mg tablet 40 mg PO BID Qty: 180 0RF Rx Instructions: 80 mg in the morning and 40 mg in the evening Referrals / Follow Up: Nithin Acevedo MD [Primary Care Provider] - In 1 Week (For repeat BMP as wellas CBC with differential) Disposition Disposition (needs filled in before D/C Order can be placed): Home, Self Care Charges/Coding Visit Charges Inpatient E&M: 57825 Disch Hosp >30min 07/23/25 1101 Cosigner Signature (if applicable): CC: Dr. Nathaniel Beverly MD; Dr. Nithin Acevedo MD~ Signed [facility]09-06-2025 [facility] Medical Records Department [address] [place] [address] Discharge Summary 07/23/25 1057 MR#: [id number] Acct: [id number] Name: FEDERICO HU Rep #: [id number] : 1935 89 From: Nathaniel Beverly MD PCP: Dr. Nithin Acevedo MD Status:ADM IN Location: [place] [address] Providers Date of Admission: 07/21/25 Date of Discharge: 07/23/25 Primary Care Physician: Dr. Nithin Acevedo MD Reason For Visit: CHF Diagnosis Discharge Diagnosis (1) CKD (chronic kidney disease): Status: Chronic Code(s): N18.9 - Chronic kidney disease, unspecified (2) Anemia: Status: Acute Code(s): D64.9 - Anemia, unspecified (3) CHF (congestive heart failure): Status: Acute Code(s): I50.9 - Heart failure, unspecified Plan: Patient is an 89-year-old gentleman who presented with progressive shortness of breath 1. Acute congestive heart failure (unspecified) ??? Patient has been admitted to a monitored bed as part of his evaluation ordered 2D echo serial cardiac enzymes as well as TSH. Patient was also placed on fluid restriction strict input and output Daily weight low-sodium diet as well as diuretic therapy with furosemide. Also placed on supplemental oxygen titrated to keep saturation greater than 90 ??? 07/22/2025; patient admitted to improvement in his symptoms. Will continue with current diuretic therapy. Will follow-up on 2D echo result ??? 07/23/2025; patient 2D echo demonstrated EF of 65% 2. Chronic kidney disease ?Stage IV ??? Current baseline creatinine unknown patient last creatinine on the EMR was 2.02 creatinine on admission was 3.12. Ordered renal duplex for further eval. Consult placed to nephrology 3. Anemia ??? Secondary to chronic disorder, ordered iron studies and subsequent monitoring H H and transfuseif patient becomes symptomatic or hemoglobin falls below 7 4. Diabetes mellitus type 2 ??? Patient is on long-acting insulin at home. Patient has been experiencing hypoglycemic episodes held the long-acting insulin placed on Accu-Cheks ACHS with sliding scale coverage 4. Paroxysmal A-fib/flutter ??? Rate controlled on systemic anticoagulation with apixaban did continue 5. Class III obesity with a BMI of 51.3 ??? Complicating care weight loss advised 6. Dyslipidemia ???Patient is on statin therapy, continued at home dose 7. Thrombocytopenia ??? Patient has some chronicity to his low platelet count will monitor with daily CBC with differential 8. DVT prophylaxis ??? Already anticoagulated with apixaban will continue 9. Hypermagnesemia ??? Patient home meds reviewed not on any magnesium supplement will repeat levels in a.m. Time spent in the patient's overall evaluation,decision-making process, review of diagnostic data, adjustment of management, discussion with other providers, nursing nursing and ancillary staff involved in patient's care documentation, 38 Minutes Medications at Discharge Home Medications doxazosin 2 mg tablet 2 mg PO QHS PROSTATE 07/02/16 multivitamin with folic acid 400 mcg tablet (Thera) 1 tab PO DAILY SUPPLEMENT 07/02/16 nitroglycerin 0.4 mg sublingual tablet (Nitrostat) 0.4 mg sublingual PRN PRN CHEST PAIN 04/01/18 apixaban 2.5 mg tablet (Eliquis) 2.5 mg PO BID blood thinner 03/27/24 insulin degludec 100 unit/mL subcutaneous solution (Tresiba U-100 Insulin) 40 unit subcut DAILY blood sugar 03/27/24 atorvastatin 40 mg tablet 40 mg PO DAILY cholesterol 07/21/25 empagliflozin 10 mg tablet (Jardiance) 10 mg PO DAILY 07/21/25 sacubitril 97 mg-valsartan 103 mg tablet (Entresto) 1 tab PO BID heart 07/21/25 furosemide 40 mg tablet 40 mg PO BID fluid #180 tabs 07/23/25 Physical Exam Narrative GENERAL: cooperative HEENT: Atraumatic; normocephalic EYES; Anicteric, Normal Conjunctiva NECK; supple, normal thyroid, RESPIRATORY: Diminished to auscultation CARDIOVASCULAR: Irregular S1-S2 GI: soft, normoactive bowel sounds, : No Renal angle tenderness; EXTREMITIES: 2+ pitting edema MUSCULOSKELETAL: no muscle wasting NEURO: Awake; no lateralizing signs. SKIN: Bilateral lower extremity stasis dermatitis PSYCH; Flat affect Weight / BMI Weight Weight: 166.196 kg Body Mass Index (BMI) 48.3 ABG / Lab / Microbiology Data 07/23/25 04:21 07/23/25 04:21 Laboratory: Laboratory Results - last 24 hr 07/22/25 11:18: POC Glucose 134 H 07/22/25 16:16: POC Glucose 147 H 07/22/25 21:19: POC Glucose 150 H 07/23/25 04:21: WBC 5.4, RBC 3.04 L, Hgb 8.0 L, Hct 26.5 L, MCV 87.2, MCH 26.3 L, MCHC 30.2 L, RDW Std Deviation 47.6 H, RDW Coeff of Jazmin 14.8 H, Plt Count 110 L, MPV 12.4 H, Immature Gran % (Auto) 0.200, Neut % (Auto) 72.8 H, Lymph % (Auto) 12.7 L, [place] % (Auto) 11.2 H, Eos % (Auto) 2.4, Baso % (Auto) 0.7, Absolute Neuts (auto) 3.9, Absolute Lymphs (auto) 0.68 L, Nucleated RBC % 0, Sodium 143, Pot (more content not included)...[facility]09-06-2025 Progress note [facility] Medical Records Department [address] [place] [address] Progress Note - Hospitalist 07/23/25 0746 MR#: [id number] Acct: [id number] Name: FEDERICO HU Rep #:[id number] : 1935 89 From: Nathaniel Beverly MD PCP: Dr. Nithin Acevedo MD Status:A DM IN Location: [place] [address] Reason for Visit Chief Complaint: Shortness of breath Subjective Subjective Patient seen symptoms continue to improve. Patient continues to diurese well. Had a discussion withpatient regarding ongoing plans. Patient requesting to bedischarged Objective Data Objective Data Vital Signs: Vital Signs Temp Pulse Resp BP Pulse Ox O2 Del Method 98.0 F 61 18 116/44 L 93 Room Air 07/23/25 04:13 07/23/25 04:13 07/23/25 04:13 07/23/25 04:13 07/23/25 04:13 07/23/25 04:34 Oxygen Delivery Method Room Air Weight: 166.196 kg Body Mass Index (BMI) 48.3 Intake & Output: Intake and Output for Last 24 Hours 07/21/25 07/22/25 07/23/25 23:59 23:59 23:59 Intake Total 700 / 700 450 / 450 Output Total 1600 / 1600 1350 / 2050 1025 / 1025 Balance -900 / -900 -900 / -1600 -1025 / -1025 Lab / Micro Data 07/23/25 04:21 07/23/25 04:21 Labs: Laboratory Results - last 24 hr 07/22/25 11:18: POC Glucose 134 H 07/22/25 16:16: POC Glucose 147 H 07/22/25 21:19: POC Glucose 150 H 07/23/25 04:21: WBC 5.4, RBC 3.04 L, Hgb 8.0 L, Hct 26.5 L, MCV 87.2, MCH 26.3 L, MCHC 30.2 L, RDW Std Deviation 47.6 H, RDW Coeff of Jazmin 14.8 H, Plt Count 110 L, MPV 12.4 H, Immature Gran % (Auto) 0.200, Neut % (Auto) 72.8 H, Lymph % (Auto) 12.7 L, [place] % (Auto) 11.2 H, Eos % (Auto) 2.4, Baso % (Auto) 0.7, Absolute Neuts (auto) 3.9, Absolute Lymphs (auto) 0.68 L, Nucleated RBC % 0, Sodium 143, Potassium 4.4, Chloride 106, Carbon Dioxide 25.8, Anion Gap 11, BUN 64 H, Creatinine 3.34 H, Estim Creat Clear Calc 24.74 L, Est GFR (MDRD) Non-Af 17 L, BUN/Creatinine Ratio 19.2, Glucose 150 H, Calcium 10.6 07/23/25 06:08: POC Glucose 126 H Radiography Diagnostic Testing: Radiology Impression Echocardiogram 07/21/25 12:48 Interpretation Summary The estimated ejection fraction is 65 %. Unable to assess diastolic dysfunction. Trivial mitral valve insufficiency. Ordering Physician: Nathaniel Beverly Referring Physician: Nithin Acevedo Performed By: Tracie Restrepo, WESLEY, RVT Physical Exam Narrative GENERAL: cooperative HEENT: Atraumatic; normocephalic EYES; Anicteric, Normal Conjunctiva NECK; supple, normal thyroid, RESPIRATORY: Diminished to auscultation CARDIOVASCULAR: Irregular S1-S2 GI: soft, normoactive bowel sounds, : No Renal angle tenderness; EXTREMITIES: 2+ pitting edema MUSCULOSKELETAL: no muscle wasting NEURO: Awake; no lateralizing signs. SKIN: Bilateral lower extremity stasis dermatitis PSYCH; Flat affect Assessment & Plan Assessment/Plan (1) CKD (chronic kidney disease): (2) Anemia: (3) CHF (congestive heart failure): PLAN: Patient is an 89-year-old gentleman who presented with progressive shortness of breath 1. Acute congestive heart failure (unspecified) ? Patient has been admitted to a monitored bed as part of his evaluation [id number] echo serial cardiac enzymes as well as TSH. Patient was also placed on fluidrestriction strict input and output Daily weight low-sodium diet as well as diuretic therapy with furosemide. Also placed on supplemental oxygen titrated to keep saturation greater than 90 ? 07/22/2025; patient admitted to improvement in his symptoms. Will continue withcurrent diuretic therapy. Will follow-up on 2D echo result ? 07/23/2025; patient 2D echo demonstrated EF of 65% 2. Chronic kidney disease ?Stage IV ? Current baseline creatinine unknown patient last creatinine on the EMR was 2.02 creatinine on admission was 3.12. Ordered renal duplex for further eval. Consult placed to nephrology 3. Anemia ? Secondary to chronic disorder, ordered iron studies and subsequent monitoring H&H and transfuse if patient becomes symptomatic or hemoglobin falls below 7 4. Diabetes mellitus type 2 ? Patient is on long-acting insulin at home. Patient has been experiencing hypoglycemic episodes held the long-acting insulin placed on Accu-Cheks ACHS with sliding scale coverage 4. Paroxysmal A-fib/flutter ? Rate controlled on systemic anticoagulation with apixaban did continue 5. Class III obesity with a BMI of 51.3 ? Complicating care weight loss advised 6. Dyslipidemia ?Patient is on statin therapy, continued at home dose 7. Thrombocytopenia ? Patient has some chronicity to his low platelet count will monitor with daily CBC with differential 8. DVT prophylaxis ? Already anticoagulated with apixaban will continue 9. Hypermagnesemia ? Patient home meds reviewed not on any magnesium supplement will repeat levels in a.m. Time spent in the patient's overall evaluation,decision-making process, review of diagnostic data, adjustment of management, discussion with other providers, nursing nursing and ancillary staff involved in patient's care documentation, 38 Minutes Charges/Coding Visit Charges Inpatient E&M: 28933 Subs Hosp L2 07/23/25 1056 Cosigner Signature (if applicable): CC: ~ Signed [facility]09-05-2025 Progress note Author Nathaniel Beverly [facility] Note Date/Time July 22, 2025 9:51am [facility] Medical Records Department [address] [place] [address] Progress Note - Hospitalist 07/22/25 0838 MR#: [id number] Acct: [id number] Name: FEDERICO HU Rep #:[id number] : 1935 89 From: Nathaniel Beverly MD PCP: Dr. Nithin Acevedo MD Status:A DM IN Location: [place] [address] Reason for Visit Chief Complaint: Shortness of breath Subjective Subjective Patient is an 89-year-old gentleman who presented with progressive shortness of breath. An assessment of acute congestive heart failure made admitted to monitored bed for further management patient started on diuretic therapy. Objective Data Objective Data Vital Signs: Vital Signs Temp Pulse Resp BP Pulse Ox O2 Del Method 98.0 F 66 17 117/42 L 94 Room Air 07/22/25 02:15 07/22/25 03:00 07/22/25 02:15 07/22/25 02:15 07/22/25 02:15 07/22/25 03:05 Oxygen Delivery Method Room Air Weight: 166.196 kg Body Mass Index (BMI) 48.3 Intake & Output: Intake and Output for Last 24 Hours 07/20/25 07/21/25 07/22/25 23:59 23:59 23:59 Intake Total 700 / 700 Output Total 1600 / 1600 200 / 200 Balance -900 / -900 -200 / -200 Lab / Micro Data 07/22/25 05:22 07/22/25 05:22 Labs: Laboratory Results - last 24 hr 07/21/25 10:47: WBC 5.2, RBC 3.32 L, Hgb 8.7 L, Hct 29.3 L, MCV 88.3, MCH 26.2 L, MCHC 29.7 L, RDW Std Deviation 48.8 H, RDW Coeff of Jazmin 15.0 H, Plt Count 120 L, MPV 12.2 H, Immature Gran % (Auto) 0.600, Neut % (Auto) 74.0 H, Lymph % (Auto) 12.7 L, [place] % (Auto) 9.0, Eos % (Auto) 2.9, Baso % (Auto) 0.8, Absolute Neuts (auto) 3.9, Absolute Lymphs (auto) 0.66 L, Nucleated RBC % 0, PT 16.8 H, INR 1.3, Sodium 142, Potassium 4.6, Chloride 106, Carbon Dioxide 22.6, Anion Gap14, BUN 63 H, Creatinine 3.12 H, Estim Creat Clear Calc 25.92 L, Est GFR (MDRD) Non-Af 18 L, BUN/Creatinine Ratio 20.0, Glucose 166 H, Calcium 10.7, Troponin T High Sens 91 H*, NT pro BNP II 3236 H 07/21/25 12:50: Retic Count 1.08, Immature Retic Fraction 12.80, Retic Hgb Equivalent 25.9 L, Iron 24 L, TIBC 281, Iron Saturation 9.0, Unsaturated IBC 257, Troponin T Hi Sens 2 Hr 87 H*, Vitamin B12 471 07/21/25 14:49: Troponin T Hi Sens 4Hr 87 H* 07/21/25 17:09: POC Glucose 144 H 07/21/25 21:26: POC Glucose 170 H 07/22/25 05:22: WBC 5.6, RBC 3.10 L, Hgb 8.1 L, Hct 26.9 L, MCV 86.8, MCH 26.1 L, MCHC 30.1 L, RDW Std Deviation 48.2 H, RDW Coeff of Jazmin 15.1 H, Plt Count 114 L, MPV 12.5 H, Immature Gran % (Auto) 0.200, Neut % (Auto) 70.2 H, Lymph % (Auto) 13.2 L, [place] % (Auto) 12.3 H, Eos % (Auto) 3.4, Baso % (Auto) 0.7, Absolute Neuts (auto) 4.0, Absolute Lymphs (auto) 0.74 L, Nucleated RBC % 0, Sodium 142, Potassium 4.6, Chloride 106, Carbon Dioxide 25.4, Anion Gap 11, BUN 64 H, Creatinine 3.29 H, Estim Creat Clear Calc 25.12 L, Est GFR (MDRD) Non-Af 17 L, BUN/Creatinine Ratio 19.4, Glucose 147 H, Hemoglobin A1c 6.3 H, Calcium 10.5, Phosphorus 4.3, Magnesium 2.6 H, Triglycerides 60, Cholesterol 67, LDL Cholesterol, Calc 14, VLDL Cholesterol 12, HDL Cholesterol 41, Cholesterol/HDL Ratio 1.63, TSH 3.940 07/22/25 07:03: POC Glucose 140 H Radiography Diagnostic Testing: Radiology Impression Chest X-Ray 07/21/25 11:10 IMPRESSION: Mild cardiac enlargement. - Perihilar and basal pulmonary opacities, differential and recommendations as discussed above. Reading Location: [facility] Renal Ultrasound 07/21/25 11:58 IMPRESSION: Right kidney 10.9 cm, left kidney 8.7 cm. No hydronephrosis. 5.1 ? 5.7 ? 4.8 cm thinly septated cyst in the vrs-sx-hzuvkcao left kidney. Normal bladder with bilateral ureteral jets. Reading Location: [address] Physical Exam Narrative GENERAL: cooperative HEENT: Atraumatic; normocephalic EYES; Anicteric, Normal Conjunctiva NECK; supple, normal thyroid, RESPIRATORY: Diminished to auscultation CARDIOVASCULAR: Irregular S1-S2 GI: soft, normoactive bowel sounds, : No Renal angle tenderness; EXTREMITIES: 2+ pitting edema MUSCULOSKELETAL: no muscle wasting NEURO: Awake; no lateralizing signs. SKIN: Bilateral lower extremity stasis dermatitis PSYCH; Flat affect Assessment & Plan Assessment/Plan (1) CKD (chronic kidney disease): (2) Anemia: (3) CHF (congestive heart failure): PLAN: Patient is an 89-year-old gentleman who presented with progressive shortness of breath 1. Acute congestive heart failure (unspecified) ? Patient has been admitted to a monitored bed as part of his evaluation [id number] echo serial cardiac enzymes as well as TSH. Patient was also placed on fluidrestriction strict input and output Daily weight low-sodium diet as well as diuretic therapy with furosemide. Also placed on supplemental oxygen titrated to keep saturation greater than 90 ? 07/22/2025; patient admitted to improvement in his symptoms. Will continue withcurrent diuretic therapy. Will follow-up on 2D echo result 2. Chronic kidney disease ?Stage IV ? Current baseline creatinine unknown patient last creatinine on the EMR was 2.02 creatinine on admission was 3.12. Ordered renal duplex for further eval. Consult placed to nephrology 3. Anemia ? Secondary to chronic disorder, ordered iron studies and subsequent monitoring H&H and transfuse if patient becomes symptomatic or hemoglobin falls below 7 4. Diabetes mellitus type 2 ? Patient is on long-acting insulin at home. Patient has been experiencing hypoglycemic episodes held the long-acting insulin [facility] ACHS with sliding scale coverage 4. Paroxysmal A-fib/flutter ? Rate controlled on systemic anticoagulation with apixaban did continue 5. Class III obesity with a BMI of 51.3 ? Complicating care weight loss advised 6. Dyslipidemia ?Patient is on statin therapy, continued at home dose 7. Thrombocytopenia ? Patient has some chronicity to his low platelet count will monitor with daily CBC with differential 8. DVT prophylaxis ? Already anticoagulated with apixaban will continue 9. Hypermagnesemia ? Patient home meds reviewed not on any magnesium supplement will repeat levels in a.m. Time spent in the patient's overall evaluation,decision-making process, review of diagnostic data, adjustment of management, discussion with other providers, nursing nursing and ancillary staff involved in patient's care documentation, 50 Minutes Charges/Coding Visit Charges Inpatient E&M: 41984 Subs Hosp L3 07/22/25 0951 <Electronically signed by Nathaniel Beverly MD> Cosigner Signature (if applicable): CC: ~ Signed [facility] Work Phone: [phone]) 779-841909-05-2025 Progress note [facility] Medical Records Department [address] [place] [address] Progress Note - Hospitalist 07/22/25 08 MR#: [id number] Acct: [id number] Name: FEDERICO HU Rep #:[id number] : 1935 89 From: Nathaniel Beverly MD PCP: Dr. Nithin Acevedo MD Status:A DM IN Location: [place] [address] Reason for Visit Chief Complaint: Shortness of breath Subjective Subjective Patient is an 89-year-old gentleman who presented with progressive shortness of breath. An assessment of acute congestive heart failure made admitted to monitored bed for further management patient started on diuretic therapy. Objective Data Objective Data Vital Signs: Vital Signs Temp Pulse Resp BP Pulse Ox O2 Del Method 98.0 F 66 17 117/42 L 94 Room Air 07/22/25 02:15 07/22/25 03:00 07/22/25 02:15 07/22/25 02:15 07/22/25 02:15 07/22/25 03:05 Oxygen Delivery Method Room Air Weight: 166.196 kg Body Mass Index (BMI) 48.3 Intake & Output: Intake and Output for Last 24 Hours 07/20/25 07/21/25 07/22/25 23:59 23:59 23:59 Intake Total 700 / 700 Output Total 1600 / 1600 200 / 200 Balance -900 / -900 -200 / -200 Lab / Micro Data 07/22/25 05:22 07/22/25 05:22 Labs: Laboratory Results - last 24 hr 07/21/25 10:47: WBC 5.2, RBC 3.32 L, Hgb 8.7 L, Hct 29.3 L, MCV 88.3, MCH 26.2 L, MCHC 29.7 L, RDW Std Deviation 48.8 H, RDW Coeff of Jazmin 15.0 H, Plt Count 120 L, MPV 12.2 H, Immature Gran % (Auto) 0.600, Neut % (Auto) 74.0 H, Lymph % (Auto) 12.7 L, [place] % (Auto) 9.0, Eos % (Auto) 2.9, Baso % (Auto) 0.8, Absolute Neuts (auto) 3.9, Absolute Lymphs (auto) 0.66 L, Nucleated RBC % 0, PT 16.8 H, INR 1.3, Sodium 142, Potassium 4.6, Chloride 106, Carbon Dioxide 22.6, Anion Gap14, BUN 63 H, Creatinine 3.12 H, Estim Creat Clear Calc 25.92 L, Est GFR (MDRD) Non-Af 18 L, BUN/Creatinine Ratio 20.0, Glucose 166 H, Calcium 10.7, Troponin T High Sens 91 H*, NT pro BNP II 3236 H 07/21/25 12:50: Retic Count 1.08, Immature Retic Fraction 12.80, Retic Hgb Equivalent 25.9 L, Iron 24 L, TIBC 281, Iron Saturation 9.0, Unsaturated IBC 257, Troponin T Hi Sens 2 Hr 87 H*, Vitamin [id number] 07/21/25 14:49: Troponin T Hi Sens 4Hr 87 H* 07/21/25 17:09: POC Glucose 144 H 07/21/25 21:26: POC Glucose 170 H 07/22/25 05:22: WBC 5.6, RBC 3.10 L, Hgb 8.1 L, Hct 26.9 L, MCV 86.8, MCH 26.1 L, MCHC 30.1 L, RDW Std Deviation 48.2 H, RDW Coeff of Jazmin 15.1 H, Plt Count 114 L, MPV 12.5 H, Immature Gran % (Auto) 0.200, Neut % (Auto) 70.2 H, Lymph % (Auto) 13.2 L, [place] % (Auto) 12.3 H, Eos % (Auto) 3.4, Baso % (Auto) 0.7, Absolute Neuts (auto) 4.0, Absolute Lymphs (auto) 0.74 L, Nucleated RBC % 0, Sodium 142, Potassium 4.6, Chloride 106, Carbon Dioxide 25.4, Anion Gap 11, BUN 64 H, Creatinine 3.29 H, Estim Creat Clear Calc 25.12 L, Est GFR (MDRD) Non-Af 17 L, BUN/Creatinine Ratio 19.4, Glucose 147 H, Hemoglobin A1c 6.3 H, Calcium 10.5, Phosphorus 4.3, Magnesium 2.6 H, Triglycerides 60, Cholesterol 67, LDL Cholesterol, Calc 14, VLDL Cholesterol 12, HDL Cholesterol 41, Cholesterol/HDL Ratio 1.63, TSH 3.940 07/22/25 07:03: POC Glucose 140 H Radiography Diagnostic Testing: Radiology Impression Chest X-Ray 07/21/25 11:10 IMPRESSION: Mild cardiac enlargement. - Perihilar and basal pulmonary opacities, differential and recommendations as discussed above. Reading Location: [facility] Renal Ultrasound 07/21/25 11:58 IMPRESSION: Right kidney 10.9 cm, left kidney 8.7 cm. No hydronephrosis. 5.1 ? 5.7 ? 4.8 cm thinly septated cyst in the glu-nk-kzynwpjc left kidney. Normal bladder with bilateral ureteral jets. Reading Location: [address] Physical Exam Narrative GENERAL: cooperative HEENT: Atraumatic; normocephalic EYES; Anicteric, Normal Conjunctiva NECK; supple, normal thyroid, RESPIRATORY: Diminished to auscultation CARDIOVASCULAR: Irregular S1-S2 GI: soft, normoactive bowel sounds, : No Renal angle tenderness; EXTREMITIES: 2+ pitting edema MUSCULOSKELETAL: no muscle wasting NEURO: Awake; no lateralizing signs. SKIN: Bilateral lower extremity stasis dermatitis PSYCH; Flat affect Assessment & Plan Assessment/Plan (1) CKD (chronic kidney disease): (2) Anemia: (3) CHF (congestive heart failure): PLAN: Patient is an 89-year-old gentleman who presented with progressive shortness of breath 1. Acute congestive heart failure (unspecified) ? Patient has been admitted to a monitored bed as part of his evaluation [id number] echo serial cardiac enzymes as well as TSH. Patient was also placed on fluidrestriction strict input and output Daily weight low-sodium diet as well as diuretic therapy with furosemide. Also placed on supplemental oxygen titrated to keep saturation greater than 90 ? 07/22/2025; patient admitted to improvement in his symptoms. Will continue withcurrent diuretic therapy. Will follow-up on 2D echo result 2. Chronic kidney disease ?Stage IV ? Current baseline creatinine unknown patient last creatinine on the EMR was 2.02 creatinine on admission was 3.12. Ordered renal duplex for further eval. Consult placed to nephrology 3. Anemia ? Secondary to chronic disorder, ordered iron studies and subsequent monitoring H&H and transfuse if patient becomes symptomatic or hemoglobin falls below 7 4. Diabetes mellitus type 2 ? Patient is on long-acting insulin at home. Patient has been experiencing hypoglycemic episodes held the long-acting insulin placed on Accu-Cheks ACHS with sliding scale coverage 4. Paroxysmal A-fib/flutter ? Rate controlled on systemic anticoagulation with apixaban did continue 5. Class III obesity with a BMI of 51.3 ? Complicating care weight loss advised 6. Dyslipidemia ?Patient is on statin therapy, continued at home dose 7. Thrombocytopenia ? Patient has some chronicity to his low platelet count will monitor with daily CBC with differential 8. DVT prophylaxis ? Already anticoagulated with apixaban will continue 9. Hypermagnesemia ? Patient home meds reviewed not on any magnesium supplement will repeat levels in a.m. Time spent in the patient's overall evaluation,decision-making process, review of diagnostic data, adjustment of management, discussion with other providers, nursing nursing and ancillary staff involved in patient's care documentation, 50 Minutes Charges/Coding Visit Charges Inpatient E&M: 21641 Subs Hosp L3 07/22/25 0951 Cosigner Signature (if applicable): CC: ~ Signed [facility]09-04-2025 Radiology Diagnostic study note [facility] Imaging Services [address] [place], [place] [address] Kidney and Bladder MR#: [id number] Acct: [id number] Name: FEDERICO HU Rep #: [id number] : 1935 M 89 From: Ryan Dawn MD PCP: Dr. Nithin Acevedo MD Status: A DM IN Study:Kidney and Bladder Date of Exam: 0 07/21/25 Exam# [id number] Ordering Dr: Nino Beverly MD PROCEDURE: KIDNEY AND BLADDER 07/21/2025 REASON FOR EXAM: RENAL FAILURE TECHNIQUE: Procedure Code: USKI Modality: US Procedure: KIDNEY AND BLADDER FINDINGS: Right kidney measures 10.9 ? 6.0 ? 6.0 cm. Cortical thickness 1.2 cm. Normalcortical echogenicity. No calculi. No hydronephrosis. Left kidney measures 8.7 ? 4.7 ? 5.0 cm. Cortical thickness 1.3 cm. Normal cortical echogenicity. No calculi. No hydronephrosis. A 5.1 ? 5.7 ? 4.8 cm thinly septated cyst is present in the mnw-fb-xndrmcgi pole. Urinary bladder pre-void volume 716 mL. Wall thickness 3 mm. Ureteral jets visualized bilaterally. US/Kidney and Bladder IMPRESSION: Right kidney 10.9 cm, left kidney 8.7 cm. No hydronephrosis. 5.1 ? 5.7 ? 4.8 cm thinly septated cyst in the zyn-cp-gbpjwxvh left kidney. Normal bladder with bilateral ureteral jets. Reading Location: [address] CC: Dr. Nathaniel Beverly MD; Dr. Nithin Acevedo MD ~ Rn Telemetry: Signed [facility]09-04-2025 Discharge summary Author [facility] Note Date/Time July 21, 2025 3:04pm [facility] Medical Records Department [address] [place] [address] Emergency Department Summary 07/21/25 MR#: [id number] Acct: [id number] Name: FEDERICO HU Rep #:[id number] : 1935 89 From: Fely Parra DO PCP: Dr. Nithin Acevedo MD Status:A DM IN Location: [place] [address] HPI History of Present Illness Chief Complaint: Shortness of Breath Detail of Chief Complaint: Shortness of breath Informant: patient Narrative Narrative: Patient presents to the emergency department with complaint of shortness of breath for several weeks. Complains of bilateral leg swelling and exertional dyspnea. Has been sleeping in a recliner for a few weeks because he cannot lay flat. Patient history of A-fib as well as history of CHF and coronary artery disease. Currently on warfarin. Does have a cough and at times bringing up some green phlegm. He has had no fever. [facility] Medical History Afib CAD (coronary artery disease) CHF (congestive heart failure) Diabetes Home Medications ?Medication ?Instructions ?Recorded ?Last Taken ?Type Lovastatin [Mevacor] 40 mg PO QHS CHOLESTEROL 07/11/16 History doxazosin 2 mg tablet 2 mg PO QHS PROSTATE 6 07/11/16 History multivitamin with folic acid 400 1 tab PO DAILY SUPPLE MENT 07/02/16 07/11/16 History mcg tablet (Thera) nitroglycerin 0.4 mg sublingual 0.4 mg sublingual PRN PRN CHEST 04/01/18 Unknown History tablet (Nitrostat) PAIN spironolactone 25 mg tablet 25 mg PO QHS BP 04/01/18 U nknown History albuterol sulfate 90 mcg/actuation 2 puff inhalation Q 4H PRN PRN 01/07/19 Unknown Rx aerosol inhaler Wheezing ##1 vitamin E (dl, acetate) 90 mg (200 200 unit PO DAILY 0 01/07/19 Unknown History unit) capsule apixaban 2.5 mg tablet (Eliquis) 2.5 mg PO BID 4 Unknown History dapagliflozin propanediol 5 mg 5 mg PO QHS 03/27/24 Un known History tablet (Farxiga) ferrous sulfate 137 mg (45 mg 137 mg PO DAILY 03/27/24 Unknown History iron) tablet,extended release insulin degludec 100 unit/mL 40 unit subcut DAILY 03/17 12/10 Unknown History subcutaneous solution (Tresiba U-100 Insulin) atorvastatin 40 mg tablet 40 mg PO DAILY 07/21/25 Unkn own History empagliflozin 10 mg tablet 10 mg PO DAILY 07/21/25 Unk nown History (Jardiance) furosemide 40 mg tablet 40 mg PO BID 07/21/25 Unknow n History sacubitril 97 mg-valsartan 103 mg 1 tab PO BID 5 Unknown History tablet (Entresto) Allergy/AdvReac Type Severity Reaction Status Date / Time finasteride (From [employer]) Allergy Hives Verified 07/21/25 10:26 Social History (Updated 07/21/25 @ 10:37 by Irma Hensley) household members: family Smoking Status: Former smoker ROS ROS ED ROS Narrative Weight gain Review of Systems ROS Unobtainable: other Constitutional Constitutional ED: Reports lethargy; Denies chills, fever(s), sweats or weight loss Eyes Eyes: Denies blurry vision, change in vision or diplopia ENT ENT ED: Denies rhinorrhea or sore throat Cardiovascular Cardiovascular: Reports orthopnea and racing heartbeat; Denies chest pain Respiratory/Chest Respiratory/Chest: Reports cough, dyspnea, dyspnea on exertion, orthopnea and sputum Gastrointestinal Gastrointestinal: Denies abdominal pain, diarrhea, nausea or vomiting Genitourinary Genitourinary ED: Denies dysuria, hematuria or urinary frequency Musculoskeletal Musculoskeletal: Reports other Details: Leg edema ; Denies arthralgias, back pain, myalgias or neck pain Integumentary Denies abscess, Abrasions or rash Neurologic Neurologic: Denies headache(s) or weakness Psychiatric Psychiatric: Denies anxiety, depression or suicidal thoughts Endocrine Endocrinology: Denies polydipsia, polyphagia or polyuria Hematologic/Lymphatic Hematologic/Lymphatic: Denies easy bleeding, easy bruising or lymphadenopathy Allergic/Immunologic Allergic/Immunologic ED: Denies mouth swelling, tongue swelling or urticaria EXAM Physical Exam Const Vital Signs: 07/21/25 10:26 07/21/25 10:42 07/21/25 10:44 Temperature 97.8 F Temperature Source Oral Pulse Rate 76 Respiratory Rate 20 H Respiratory Effort Short of Breath Respiratory Depth Normal Respiratory Pattern Normal Blood Pressure 123/41 H Blood Pressure Mean 68 Pulse Ox 96 95 Oxygen Delivery Method Room Air Room Air Room Air Positive well nourished and well developed General Appearance ED: well developed and NAD HEENT Reports TM's clear and moist mucous membranes normocephalic and atraumatic; Negative for trauma or tenderness Tympanic Membrane ED: Yes TM's clear Eyes PERRL and EOMs intact bilaterally General Eye ED: Negative for pale conjunctiva or scleral icterus Neck no lymphadenopathy, supple and no JVD General: Negative for tenderness Chest Wall inspection of chest normal and palpation of chest normal Chest: Negative for tenderness Resp normal respiratory effort and clear to auscultation bilaterally Effort and Inspection: Negative for respiratory distress or pain with movement Auscultation: Negative for rhonchi, wheezes or diminished lung sounds Cardio S1 normal heart sound, S2 normal heart sound and no murmurs; Negative for regular rate or regular rhythm Rhythm: abnormal rhythm irregularly irregular Peripheral Pulses: pulses 2+ throughout GI normal to inspection, nondistended, normoactive bowel sounds, soft to palpation, non-tender, non-distended and no masses Back/Spine no CVA tenderness and no thoracic nor lumbar tenderness Extremity Extremity Narrative: +3 edema both lower extremities to thighs General Extremety ED: Yes edema General Extremity: edema Neuro oriented x3, CN's II-XII intact bilaterally, no sensory deficits noted and gait normal Sensorium / Orientation: awake, alert, oriented to person, oriented to place and oriented to time Motor Exam: strength 5/5 throughout and strength abnormal Psych mental status grossly normal Skin no rashes or lesions noted and no wounds MDM MDM MDM Narrative Medical decision making narrative: Patient presents with increasing shortness of breath and leg swelling. History of CHF and history of A-fib. Some conversational dyspnea at rest. IV line established. Patient was medicated Lasix 40 mg IV. EKG obtained arrival showed atrial fibrillation with ventricular rate of 71 bpm with right bundle branch block. CBC with differential shows a white count 5.2 with hemoglobin 8.7 and platelet count of 120. Chemistry is unremarkable. BUN 63 and creatinine 3.12. Troponin 91 and BNP was 3236. 1 view chest x-ray obtained showed CHF. Case will be discussed with hospitalist to evaluate for admission Lab Data Attestation: I reviewed the patient's lab results. Labs: Laboratory Results - last 24 hr 07/21/25 10:47 WBC 5.2 RBC 3.32 L Hgb 8.7 L Hct 29.3 L MCV 88.3 MCH 26.2 L MCHC 29.7 L RDW Std Deviation 48.8 H RDW Coeff of Jazmin 15.0 H Plt Count 120 L MPV 12.2 H Immature Gran % (Auto) 0.600 Neut % (Auto) 74.0 H Lymph % (Auto) 12.7 L [place] % (Auto) 9.0 Eos % (Auto) 2.9 Baso % (Auto) 0.8 Absolute Neuts (auto) 3.9 Absolute Lymphs (auto) 0.66 L Nucleated RBC % 0 PT 16.8 H INR 1.3 Sodium 142 Potassium 4.6 Chloride 106 Carbon Dioxide 22.6 Anion Gap 14 BUN 63 H Creatinine 3.12 H Estim Creat Clear Calc 25.92 L Est GFR (MDRD) Non-Af 18 L BUN/Creatinine Ratio 20.0 Glucose 166 H Calcium 10.7 Troponin T High Sens 91 H* NT pro BNP II 3236 H Radiography Diagnostic Testing: Clinical Impression(s) from Imaging Studies Chest X-Ray 07/21/25 11:10 IMPRESSION: Mild cardiac enlargement. - Perihilar and basal pulmonary opacities, differential and recommendations as discussed above. Reading Location: [facility] 1 view chest x-ray obtained interpreted by myself is evidence of pulmonary edema consistent with CHF. Radiology felt there is perihilar and basal pulmonary opacities with differential to include infection versus edema or malignancies. EKG Initial EKG: Attestation: I personally reviewed and interpreted this EKG as follows: Comments: Atrial fibrillation with rate of 71 bpm with right bundle branch block Discharge Plan Triage Chief Complaint: Shortness of Breath ED Provider: Fely Parra Dx/Rx/DC Orders Clinical Impression: Dyspnea, CHF (congestive heart failure), Anemia, CKD (chronic kidney disease) Prescriptions: No Action doxazosin 2 MG tablet 2 mg PO QHS Patient Comments: PROSTATE multivitamin with folic acid [Thera] 1 TABLET tablet 1 tab PO DAILY Patient Comments: SUPPLEMENT Lovastatin [Mevacor] 40 MG tablet 40 mg PO QHS Patient Comments: CHOLESTEROL spironolactone 25 MG tablet 25 mg PO QHS nitroglycerin [Nitrostat] 0.4 MG tablet, sublingual 0.4 mg sublingual PRN PRN (Reason: CHEST PAIN) vitamin E (dl, acetate) 200 UNIT capsule 200 unit PO DAILY albuterol sulfate 1 INHALER inhaler 2 puff Inhalation Q4H PRN PRN (Reason: Wheezing) Qty: 1 0RF insulin degludec [Tresiba U-100 Insulin] 100 unit/mL solution 40 unit subcut DAILY Eliquis 2.5 mg tablet 2.5 mg PO BID dapagliflozin propanediol [Farxiga] 5 mg tablet 5 mg PO QHS ferrous sulfate 137 mg (45 mg iron) tablet extended release 137 mg PO DAILY atorvastatin 40 mg tablet 40 mg PO DAILY Jardiance 10 mg tablet 10 mg PO DAILY furosemide 40 mg tablet 40 mg PO BID sacubitril-valsartan [Entresto] 97-103 mg tablet 1 tab PO BID Primary Care Provider: Nithin Acevedo Referrals: Nithin Acevedo MD [Primary Care Provider] - Print Language: Irish Disposition Disposition: Acute Care Hospital [facility] What to do if you have Problems For any increased pain, shortness of breath, bleeding, nausea or vomiting, chestpain, or any unexpected problems, contact your Primary Care Provider. Call [facility] ([phone]) or report to the closest Emergency Room. Call 911 if necessary. 07/21/25 1504 <Electronically signed by Fely Parra DO> Cosigner Signature (if applicable): CC: Dr. Nithin Acevedo MD ~ Signed [facility] Work Phone: 1(409) 201-592209-04-2025 Discharge summary [facility] Medical Records Department [address] [place] [address] Emergency Department Summary 07/21/25 MR#: [id number] Acct: [id number] Name: FEDERICO HU Rep #:[id number] : 1935 89 From: Fely Parra DO PCP: Dr. Nithin Acevedo MD Status:A DM IN Location: [address] History of Present Illness Chief Complaint: Shortness of Breath Detail of Chief Complaint: Shortness of breath Informant: patient Narrative Narrative: Patient presents to the emergency department with complaint of shortness of breath for several weeks. Complains of bilateral leg swelling and exertional dyspnea. Has been sleeping in a recliner for afew weeks because he cannot lay flat. Patient history of A-fib as well as history of CHF and coronary artery disease. Currently on warfarin. Does have a cough and at times bringing up some green phlegm. He has had no fever. [facility] Medical History Afib CAD (coronary artery disease) CHF (congestive heart failure) Diabetes Home Medications ?Medication ?Instructions ?Recorded ?Last Taken ?Type Lovastatin [Mevacor] 40 mg PO QHS CHOLESTEROL 07/11/16 History doxazosin 2 mg tablet 2 mg PO QHS PROSTATE 6 07/11/16 History multivitamin with folic acid 400 1 tab PO DAILY SUPPLE MENT 07/02/16 07/11/16 History mcg tablet (Thera) nitroglycerin 0.4 mg sublingual 0.4 mg sublingual PRN PRN CHEST 04/01/18 Unknown History tablet (Nitrostat) PAIN spironolactone 25 mg tablet 25 mg PO QHS BP 04/01/18 U nknown History albuterol sulfate 90 mcg/actuation 2 puff inhalation Q 4H PRN PRN 01/07/19 Unknown Rx aerosol inhaler Wheezing ##1 vitamin E (dl, acetate) 90 mg (200 200 unit PO DAILY 0 01/07/19 Unknown History unit) capsule apixaban 2.5 mg tablet (Eliquis) 2.5 mg PO BID 4 Unknown History dapagliflozin propanediol 5 mg 5 mg PO QHS 03/27/24 Un known History tablet (Farxiga) ferrous sulfate 137 mg (45 mg 137 mg PO DAILY 03/27/24 Unknown History iron) tablet,extended release insulin degludec 100 unit/mL 40 unit subcut DAILY 03/17 12/10 Unknown History subcutaneous solution (Tresiba U-100 Insulin) atorvastatin 40 mg tablet 40 mg PO DAILY 07/21/25 Unkn own History empagliflozin 10 mg tablet 10 mg PO DAILY 07/21/25 Unk nown History (Jardiance) furosemide 40 mg tablet 40 mg PO BID 07/21/25 Unknow n History sacubitril 97 mg-valsartan 103 mg 1 tab PO BID 5 Unknown History tablet (Entresto) Allergy/AdvReac Type Severity Reaction Status Date / Time finasteride (From [employer]) Allergy Hives Verified 07/21/25 10:26 Social History (Updated 07/21/25 @ 10:37 by Irma Hensley) household members: family Smoking Status: Former smoker ROS ROS ED ROS Narrative Weight gain Review of Systems ROS Unobtainable: other Constitutional Constitutional ED: Reports lethargy; Denies chills, fever(s), sweats or weight loss Eyes Eyes: Denies blurry vision, change in vision or diplopia ENT ENT ED: Denies rhinorrhea or sore throat Cardiovascular Cardiovascular: Reports orthopnea and racing heartbeat; Denies chest pain Respiratory/Chest Respiratory/Chest: Reports cough, dyspnea, dyspnea on exertion, orthopnea and sputum Gastrointestinal Gastrointestinal: Denies abdominal pain, diarrhea, nausea or vomiting Genitourinary Genitourinary ED: Denies dysuria, hematuria or urinary frequency Musculoskeletal Musculoskeletal: Reports other Details: Leg edema ; Denies arthralgias, back pain, myalgias or neck pain Integumentary Denies abscess, Abrasions or rash Neurologic Neurologic: Denies headache(s) or weakness Psychiatric Psychiatric: Denies anxiety, depression or suicidal thoughts Endocrine Endocrinology: Denies polydipsia, polyphagia or polyuria Hematologic/Lymphatic Hematologic/Lymphatic: Denies easy bleeding, easy bruising or lymphadenopathy Allergic/Immunologic Allergic/Immunologic ED: Denies mouth swelling, tongue swelling or urticaria EXAM Physical Exam Const Vital Signs: 07/21/25 10:26 07/21/25 10:42 07/21/25 10:44 Temperature 97.8 F Temperature Source Oral Pulse Rate 76 Respiratory Rate 20 H Respiratory Effort Short of Breath Respiratory Depth Normal Respiratory Pattern Normal Blood Pressure 123/41 H Blood Pressure Mean 68 Pulse Ox 96 95 Oxygen Delivery Method Room Air Room Air Room Air Positive well nourished and well developed General Appearance ED: well developed and NAD HEENT Reports TM's clear and moist mucous membranes normocephalic and atraumatic; Negative for trauma or tenderness Tympanic Membrane ED: Yes TM's clear Eyes PERRL and EOMs intact bilaterally General Eye ED: Negative for pale conjunctiva or scleral icterus Neck no lymphadenopathy, supple and no JVD General: Negative for tenderness Chest Wall inspection of chest normal and palpation of chest normal Chest: Negative for tenderness Resp normal respiratory effort and clear to auscultation bilaterally Effort and Inspection: Negative for respiratory distress or pain with movement Auscultation: Negative for rhonchi, wheezes or diminished lung sounds Cardio S1 normal heart sound, S2 normal heart sound and no murmurs; Negative for regular rate or regular rhythm Rhythm: abnormal rhythm irregularly irregular Peripheral Pulses: pulses 2+ throughout GI normal to inspection, nondistended, normoactive bowel sounds, soft to palpation, non-tender, non-distended and no masses Back/Spine no CVA tenderness and no thoracic nor lumbar tenderness Extremity Extremity Narrative: +3 edema both lower extremities to thighs General Extremety ED: Yes edema General Extremity: edema Neuro oriented x3, CN's II-XII intact bilaterally, no sensory deficits noted and gait normal Sensorium / Orientation: awake, alert, oriented to person, oriented to place and oriented to time Motor Exam: strength 5/5 throughout and strength abnormal Psych mental status grossly normal Skin no rashes or lesions noted and no wounds MDM MDM MDM Narrative Medical decision making narrative: Patient presents with increasing shortness of breath and leg swelling. History of CHF and history of A-fib. Some conversational dyspnea at rest. IV line established. Patient was medicated Lasix 40 mgIV. EKG obtained arrival showed atrial fibrillation with ventricular rate of 71 bpm with right bundle branch block. CBC with differential shows a white count 5.2 with hemoglobin 8.7 and platelet count of 120. Chemistry is unremarkable. BUN 63 and creatinine 3.12. Troponin 91 and BNP was 3236. 1 view chest x-ray obtained showed CHF. Case will be discussed with hospitalist to evaluate for admission Lab Data Attestation: I reviewed the patient's lab results. Labs: Laboratory Results - last 24 hr 07/21/25 10:47 WBC 5.2 RBC 3.32 L Hgb 8.7 L Hct 29.3 L MCV 88.3 MCH 26.2 L MCHC 29.7 L RDW Std Deviation 48.8 H RDW Coeff of Jazmin 15.0 H Plt Count 120 L MPV 12.2 H Immature Gran % (Auto) 0.600 Neut % (Auto) 74.0 H Lymph % (Auto) 12.7 L [place] % (Auto) 9.0 Eos % (Auto) 2.9 Baso % (Auto) 0.8 Absolute Neuts (auto) 3.9 Absolute Lymphs (auto) 0.66 L Nucleated RBC % 0 PT 16.8 H INR 1.3 Sodium 142 Potassium 4.6 Chloride 106 Carbon Dioxide 22.6 Anion Gap 14 BUN 63 H Creatinine 3.12 H Estim Creat Clear Calc 25.92 L Est GFR (MDRD) Non-Af 18 L BUN/Creatinine Ratio 20.0 Glucose 166 H Calcium 10.7 Troponin T High Sens 91 H* NT pro BNP II 3236 H Radiography Diagnostic Testing: Clinical Impression(s) from Imaging Studies Chest X-Ray 07/21/25 11:10 IMPRESSION: Mild cardiac enlargement. - Perihilar and basal pulmonary opacities, differential and recommendations as discussed above. Reading Location: [facility] 1 view chest x-ray obtained interpreted by myself is evidence of pulmonary edema consistent with CHF. Radiology felt there is perihilar and basal pulmonary opacities with differential to include infection versus edema or malignancies. EKG Initial EKG: Attestation: I personally reviewed and interpreted this EKG as follows: Comments: Atrial fibrillation with rate of 71 bpm with right bundle branch block Discharge Plan Triage Chief Complaint: Shortness of Breath ED Provider: Fely Parra Dx/Rx/DC Orders Clinical Impression: Dyspnea, CHF (congestive heart failure), Anemia, CKD (chronic kidney disease) Prescriptions: No Action doxazosin 2 MG tablet 2 mg PO QHS Patient Comments: PROSTATE multivitamin with folic acid [Thera] 1 TABLET tablet 1 tab PO DAILY Patient Comments: SUPPLEMENT Lovastatin [Mevacor] 40 MG tablet 40 mg PO QHS Patient Comments: CHOLESTEROL spironolactone 25 MG tablet 25 mg PO QHS nitroglycerin [Nitrostat] 0.4 MG tablet, sublingual 0.4 mg sublingual PRN PRN (Reason: CHEST PAIN) vitamin E (dl, acetate) 200 UNIT capsule 200 unit PO DAILY albuterol sulfate 1 INHALER inhaler 2 puff Inhalation Q4H PRN PRN (Reason: Wheezing) Qty: 1 0RF insulin degludec [Tresiba U-100 Insulin] 100 unit/mL solution 40 unit subcut DAILY Eliquis 2.5 mg tablet 2.5 mg PO BID dapagliflozin propanediol [Farxiga] 5 mg tablet 5 mg PO QHS ferrous sulfate 137 mg (45 mg iron) tablet extended release 137 mg PO DAILY atorvastatin 40 mg tablet 40 mg PO DAILY Jardiance 10 mg tablet 10 mg PO DAILY furosemide 40 mg tablet 40 mg PO BID sacubitril-valsartan [Entresto] 97-103 mg tablet 1 tab PO BID Primary Care Provider: Nithin Acevedo Referrals: Nithin Acveedo MD [Primary Care Provider] - Print Language: Irish Disposition Disposition: Acute Care Hospital [facility] What to do if you have Problems For any increased pain, shortness of breath, bleeding, nausea or vomiting, chestpain, or any unexpected problems, contact your Primary Care Provider. Call [facility] ([phone]) or report tothe closest Emergency Room. Call 911 if necessary. 07/21/25 1504 Cosigner Signature (if applicable): CC: Dr. Nithin Acevedo MD ~ Signed [facility]09-04-2025 History and physical note Author Nathaniel Beverly [facility] Note Date/Time July 21, 2025 12:06pm [facility] Medical Records Department [address] [place] [address] H&P Exam - Hospitalist 07/21/25 1159 MR#: [id number] Acct: [id number] Name: FEDERICO HU Rep #:[id number] : 1935 89 From: Nathaniel Beverly MD PCP: Dr. Nithin Acevedo MD Status:A DM IN Location: [place] [address] HPI - General General Date of Admission: 07/21/25 Date of Service: 07/21/25 Chief Complaint: Shortness of breath HPI Narrative FEDERICO HU, is a 89 M with past medical history second for paroxysmal atrialfibrillation, diabetes mellitus type 2, chronic kidney disease who presented to the emergency department with shortness of breath. Per patient symptoms have been ongoing for the past couple of weeks. He also did notice increasing weightgain as well as swelling involving both lower extremities. Patient also did admit to easy fatigability and inability to lay flat he therefore had to lay in his recliner. Elected to present to the emergency department due to worsening symptoms. Workup was consistent with acute congestive heart failure admitted toa monitored bed for further management [facility] Medical History Afib CAD (coronary artery disease) CHF (congestive heart failure) Diabetes Home Medications ?Medication ?Instructions ?Recorded ?Last Taken ?Type Lovastatin [Mevacor] 40 mg PO QHS CHOLESTEROL 07/11/16 History doxazosin 2 mg tablet 2 mg PO QHS PROSTATE 6 07/11/16 History multivitamin with folic acid 400 1 tab PO DAILY SUPPLE MENT 07/02/16 07/11/16 History mcg tablet (Thera) nitroglycerin 0.4 mg sublingual 0.4 mg sublingual PRN PRN CHEST 04/01/18 Unknown History tablet (Nitrostat) PAIN spironolactone 25 mg tablet 25 mg PO QHS BP 04/01/18 U nknown History albuterol sulfate 90 mcg/actuation 2 puff inhalation Q 4H PRN PRN 01/07/19 Unknown Rx aerosol inhaler Wheezing ##1 vitamin E (dl, acetate) 90 mg (200 200 unit PO DAILY 0 01/07/19 Unknown History unit) capsule apixaban 2.5 mg tablet (Eliquis) 2.5 mg PO BID 4 Unknown History dapagliflozin propanediol 5 mg 5 mg PO QHS 03/27/24 Un known History tablet (Farxiga) ferrous sulfate 137 mg (45 mg 137 mg PO DAILY 03/27/24 Unknown History iron) tablet,extended release insulin degludec 100 unit/mL 40 unit subcut DAILY 03/17 12/10 Unknown History subcutaneous solution (Tresiba U-100 Insulin) atorvastatin 40 mg tablet 40 mg PO DAILY 07/21/25 Unkn own History empagliflozin 10 mg tablet 10 mg PO DAILY 07/21/25 Unk nown History (Jardiance) furosemide 40 mg tablet 40 mg PO BID 07/21/25 Unknow n History sacubitril 97 mg-valsartan 103 mg 1 tab PO BID 5 Unknown History tablet (Entresto) Allergy/AdvReac Type Severity Reaction Status Date / Time finasteride (From [employer]) Allergy Hives Verified 07/21/25 10:26 Social History (Updated 07/21/25 @ 10:37 by Irma Hensley) household members: family Smoking Status: Former smoker ROS ROS Narrative GENERAL: denies fever, chills, night sweats, weight loss, anorexia HEENT: denies headache, sinus congestion, or drainage, dysphagia RESPIRATORY: cough, shortness of breath, dyspnea on exertion CARDIAC: orthopnea, PND GASTROINTESTINAL: denies abdominal pain, nausea, GENITOURINARY: denies dysuria, urgency, frequency, EXTREMITY: denies swelling MUSCULOSKELETAL: denies current joint pain or tenderness NEUROLOGIC: denies focal numbness, weakness, tingling HEMATOLOGIC: denies easy bruising and/or hemorrhage INTEGUMENT: denies rashes PSYCHIATRIC: denies suicidal or homicidal ideation Vital Signs Vital Signs Vital Signs: 07/21/25 10:26 07/21/25 10:42 07/21/25 10:44 Temperature 97.8 F Temperature Source Oral Pulse Rate 76 Respiratory Rate 20 H Respiratory Effort Short of Breath Respiratory Depth Normal Respiratory Pattern Normal Blood Pressure 123/41 H Blood Pressure Mean 68 Pulse Ox 96 95 Oxygen Delivery Method Room Air Room Air Room Air 07/21/25 11:30 07/21/25 11:45 07/21/25 11:57 Temperature 97.9 F Temperature Source Pulse Rate 64 58 L 58 L Respiratory Rate 18 17 17 Respiratory Effort Respiratory Depth Respiratory Pattern Blood Pressure 103/69 99/51 L 99/51 L Blood Pressure Mean 80 62 67 Pulse Ox 92 95 95 Oxygen Delivery Method Weight Weight: 167 kg Body Mass Index (BMI) 51.3 Physical Exam Narrative GENERAL: cooperative HEENT: Atraumatic; normocephalic EYES; Anicteric, Normal Conjunctiva NECK; supple, normal thyroid, RESPIRATORY: Diminished to auscultation CARDIOVASCULAR: Irregular S1-S2 GI: soft, normoactive bowel sounds, : No Renal angle tenderness; EXTREMITIES: 2+ pitting edema MUSCULOSKELETAL: no muscle wasting NEURO: Awake; no lateralizing signs. SKIN: Bilateral lower extremity stasis dermatitis PSYCH; Flat affect Results Lab / Micro Data 07/21/25 10:47 07/21/25 10:47 Labs: Laboratory Results - last 24 hr 07/21/25 10:47: WBC 5.2, RBC 3.32 L, Hgb 8.7 L, Hct 29.3 L, MCV 88.3, MCH 26.2 L, MCHC 29.7 L, RDW Std Deviation 48.8 H, RDW Coeff of Jazmin 15.0 H, Plt Count 120 L, MPV 12.2 H, Immature Gran % (Auto) 0.600, Neut % (Auto) 74.0 H, Lymph % (Auto) 12.7 L, [place] % (Auto) 9.0, Eos % (Auto) 2.9, Baso % (Auto) 0.8, Absolute Neuts (auto) 3.9, Absolute Lymphs (auto) 0.66 L, Nucleated RBC % 0, PT 16.8 H, INR 1.3, Sodium 142, Potassium 4.6, Chloride 106, Carbon Dioxide 22.6, Anion Gap 14, BUN 63 H, Creatinine 3.12 H, Estim Creat Clear Calc 25.92 L, Est GFR (MDRD) Non-Af 18 L, BUN/Creatinine Ratio 20.0, Glucose 166 H, Calcium 10.7, Troponin T High Sens 91 H*, NT pro BNP II 3236 H Imaging Radiology Impression Chest X-Ray 07/21/25 11:10 IMPRESSION: Mild cardiac enlargement. - Perihilar and basal pulmonary opacities, differential and recommendations as discussed above. Reading Location: [id number] Assessment & Plan Assessment/Plan (1) CKD (chronic kidney disease): (2) Anemia: (3) CHF (congestive heart failure): PLAN: Patient is an 89-year-old gentleman who presented with progressive shortness of breath 1. Acute congestive heart failure (unspecified) ? Patient has been admitted to a monitored bed as part of his evaluation ordered 2D echo serial cardiac enzymes as well as TSH. Patient was also placed on fluid restriction strict input and output Daily weight low-sodium diet as well as diuretic therapy with furosemide. Also placed on supplemental oxygen titrated to keep saturation greater than 90 2. Chronic kidney disease ?Stage IV ? Current baseline creatinine unknown patient last creatinine on the EMR was 2.02 creatinine on admission was 3.12. Ordered renal duplex for further eval. Consult placed to nephrology 3. Anemia ? Secondary to chronic disorder, ordered iron studies and subsequent monitoring H&H and transfuse if patient becomes symptomatic or hemoglobin falls below 7 4. Diabetes mellitus type 2 ? Patient is on long-acting insulin at home. Patient has been experiencing hypoglycemic episodes held the long-acting insulin placed on Accu-Cheks ACHS with sliding scale coverage 4. Paroxysmal A-fib/flutter ? Rate controlled on systemic anticoagulation with apixaban did continue 5. Class III obesity with a BMI of 51.3 ? Complicating care weight loss advised 6. Dyslipidemia ?Patient is on statin therapy, continued at home dose 7. Thrombocytopenia ? Patient has some chronicity to his low platelet count will monitor with daily CBC with differential 8. DVT prophylaxis ? Already anticoagulated with apixaban will continue Time spent in the patient's overall evaluation,decision-making process, review of diagnostic data, adjustment of management, discussion with other providers, nursing nursing and ancillary staff involved in patient's care documentation, 75 Minutes Advance planning; did discuss with the patient regarding advanced directives as well as CODE STATUS. Did explain the various scenarios involved ( FULL CODE, DNR CCA, DNR CCA with no intubation, and DNR CC and what each meant) patient elected to be DNR CCA no intubation. Order was placed. Time spent on discussion 16 minutes. Charges/Coding Multi Select Codes Visit Charges Visit Charges: 97793 Init Hosp L3 Hospitalists' Procedures Procedures: 60229 Advncd Care Plan 30 Min 07/21/25 1206 <Electronically signed by Nathaniel Beverly MD> Cosigner Signature (if applicable): CC: Dr. Nathaniel Beverly MD; Dr. Nithin Acevedo MD~ Signed [facility] Work Phone: 1(134) 433-158409-04-2025 Evaluation note* Diagnosis Onset Date Resolution Status Admit Date Anemia acute July 21, 2025 11:45am CHF (congestive heart failure) acute July 21 025 11:45am CKD (chronic kidney disease) chronic July 21, 2025 11:45am [facility] Work Phone: 1(663) 135-775609-04-2025 History and physical note [facility] Medical Records Department [address] [place] [address] H&P Exam - Hospitalist 07/21/25 1159 MR#: [id number] Acct: [id number] Name: FEDERICO HU Rep #:[id number] : 1935 89 From: Nathaniel Beverly MD PCP: Dr. Nithin Acevedo MD Status:A DM IN Location: [place] [id number] HPI - General General Date of Admission: 07/21/25 Date of Service: 07/21/25 Chief Complaint: Shortness of breath HPI Narrative FEDERICO HU, is a 89 M with past medical history second for paroxysmal atrialfibrillation, diabetes mellitus type 2, chronic kidney disease who presented to the emergency department with shortnessof breath. Per patient symptoms have been ongoing for the past couple of weeks. He also did notice i ncreasing weightgain as well as swelling involving both lower extremities. Patient also did admit to easy fatigability and inability to lay flat he therefore had to lay in his recliner. Elected to present to the emergency department due to worsening symptoms. Workup was consistent with acute congest skip heart failure admitted toa monitored bed for further management FORMERLY [facility] Medical History Afib CAD (coronary artery disease) CHF (congestive heart failure) Diabetes Home Medications ?Medication ?Instructions ?Recorded ?Last Taken ?Type Lovastatin [Mevacor] 40 mg PO QHS CHOLESTEROL 07/11/16 History doxazosin 2 mg tablet 2 mg PO QHS PROSTATE 6 07/11/16 History multivitamin with folic acid 400 1 tab PO DAILY SUPPLE MENT 07/02/16 07/11/16 History mcg tablet (Thera) nitroglycerin 0.4 mg sublingual 0.4 mg sublingual PRN PRN CHEST 04/01/18 Unknown History tablet (Nitrostat) PAIN spironolactone 25 mg tablet 25 mg PO QHS BP 04/01/18 U nknown History albuterol sulfate 90 mcg/actuation 2 puff inhalation Q 4H PRN PRN 01/07/19 Unknown Rx aerosol inhaler Wheezing ##1 vitamin E (dl, acetate) 90 mg (200 200 unit PO DAILY 0 01/07/19 Unknown History unit) capsule apixaban 2.5 mg tablet (Eliquis) 2.5 mg PO BID 4 Unknown History dapagliflozin propanediol 5 mg 5 mg PO QHS 03/27/24 Un known History tablet (Farxiga) ferrous sulfate 137 mg (45 mg 137 mg PO DAILY 03/27/24 Unknown History iron) tablet,extended release insulin degludec 100 unit/mL 40 unit subcut DAILY 03/17 12/10 Unknown History subcutaneous solution (Tresiba U-100 Insulin) atorvastatin 40 mg tablet 40 mg PO DAILY 07/21/25 Unkn own History empagliflozin 10 mg tablet 10 mg PO DAILY 07/21/25 Unk nown History (Jardiance) furosemide 40 mg tablet 40 mg PO BID 07/21/25 Unknow n History sacubitril 97 mg-valsartan 103 mg 1 tab PO BID 5 Unknown History tablet (Entresto) Allergy/AdvReac Type Severity Reaction Status Date / Time finasteride (From Proscar) Allergy Hives Verified 07/21/25 10:26 Social History (Updated 07/21/25 @ 10:37 by Irma Hensley) household members: family Smoking Status: Former smoker ROS ROS Narrative GENERAL: denies fever, chills, night sweats, weight loss, anorexia HEENT: denies headache, sinus congestion, or drainage, dysphagia RESPIRATORY: cough, shortness of breath, dyspnea on exertion CARDIAC: orthopnea, PND GASTROINTESTINAL: denies abdominal pain, nausea, GENITOURINARY: denies dysuria, urgency, frequency, EXTREMITY: denies swelling MUSCULOSKELETAL: denies current joint pain or tenderness NEUROLOGIC: denies focal numbness, weakness, tingling HEMATOLOGIC: denies easy bruising and/or hemorrhage INTEGUMENT: denies rashes PSYCHIATRIC: denies suicidal or homicidal ideation Vital Signs Vital Signs Vital Signs: 07/21/25 10:26 07/21/25 10:42 07/21/25 10:44 Temperature 97.8 F Temperature Source Oral Pulse Rate 76 Respiratory Rate 20 H Respiratory Effort Short of Breath Respiratory Depth Normal Respiratory Pattern Normal Blood Pressure 123/41 H Blood Pressure Mean 68 Pulse Ox 96 95 Oxygen Delivery Method Room Air Room Air Room Air 07/21/25 11:30 07/21/25 11:45 07/21/25 11:57 Temperature 97.9 F Temperature Source Pulse Rate 64 58 L 58 L Respiratory Rate 18 17 17 Respiratory Effort Respiratory Depth Respiratory Pattern Blood Pressure 103/69 99/51 L 99/51 L Blood Pressure Mean 80 62 67 Pulse Ox 92 95 95 Oxygen Delivery Method Weight Weight: 167 kg Body Mass Index (BMI) 51.3 Physical Exam Narrative GENERAL: cooperative HEENT: Atraumatic; normocephalic EYES; Anicteric, Normal Conjunctiva NECK; supple, normal thyroid, RESPIRATORY: Diminished to auscultation CARDIOVASCULAR: Irregular S1-S2 GI: soft, normoactive bowel sounds, : No Renal angle tenderness; EXTREMITIES: 2+ pitting edema MUSCULOSKELETAL: no muscle wasting NEURO: Awake; no lateralizing signs. SKIN: Bilateral lower extremity stasis dermatitis PSYCH; Flat affect Results Lab / Micro Data 07/21/25 10:47 07/21/25 10:47 Labs: Laboratory Results - last 24 hr 07/21/25 10:47: WBC 5.2, RBC 3.32 L, Hgb 8.7 L, Hct 29.3 L, MCV 88.3, MCH 26.2 L, MCHC 29.7 L, RDW Std Deviation 48.8 H, RDW Coeff of Jazmin 15.0 H, Plt Count 120 L, MPV 12.2 H, Immature Gran % (Auto) 0.600, Neut % (Auto) 74.0 H, Lymph % (Auto) 12.7 L, [place] % (Auto) 9.0, Eos % (Auto) 2.9, Baso % (Auto) 0.8, Absolute Neuts (auto) 3.9, Absolute Lymphs (auto) 0.66 L, Nucleated RBC % 0, PT 16.8 H, INR 1.3, Sodium 142, Potassium 4.6, Chloride 106, Carbon Dioxide 22.6, Anion Gap 14, BUN 63 H, Creatinine3.12 H, Estim Creat Clear Calc 25.92 L, Est GFR (MDRD) Non-Af 18 L, BUN/Creatinine Ratio 20.0, Glucose 166 H, Calcium 10.7, Troponin T High Sens 91 H*, NT pro BNP II 3236 H Imaging Radiology Impression Chest X-Ray 07/21/25 11:10 IMPRESSION: Mild cardiac enlargement. - Perihilar and basal pulmonary opacities, differential and recommendations as discussed above. Reading Location: [id number] Assessment & Plan Assessment/Plan (1) CKD (chronic kidney disease): (2) Anemia: (3) CHF (congestive heart failure): PLAN: Patient is an 89-year-old gentleman who presented with progressive shortness of breath 1. Acute congestive heart failure (unspecified) ? Patient has been admitted to a monitored bed as part of his evaluation ordered 2D echo serial cardiac enzymes as well as TSH. Patient was also placed on fluid restriction strict input and output Daily weight low-sodium diet as well as diuretic therapy with furosemide. Also placed on supplemental oxygen titrated to keep saturation greater than 90 2. Chronic kidney disease ?Stage IV ? Current baseline creatinine unknown patient last creatinine on the EMR was 2.02 creatinine on admission was 3.12. Ordered renal duplex for further eval. Consult placed to nephrology 3. Anemia ? Secondary to chronic disorder, ordered iron studies and subsequent monitoring H&H and transfuse if patient becomes symptomatic or hemoglobin falls below 7 4. Diabetes mellitus type 2 ? Patient is on long-acting insulin at home. Patient has been experiencing hypoglycemic episodes held the long-acting insulin placed on Accu-Cheks ACHS with sliding scale coverage 4. Paroxysmal A-fib/flutter ? Rate controlled on systemic anticoagulation with apixaban did continue 5. Class III obesity with a BMI of 51.3 ? Complicating care weight loss advised 6. Dyslipidemia ?Patient is on statin therapy, continued at home dose 7. Thrombocytopenia ? Patient has some chronicity to his low platelet count will monitor with daily CBC with differential 8. DVT prophylaxis ? Already anticoagulated with apixaban will continue Time spent in the patient's overall evaluation,decision-making process, review of diagnostic data, adjustment of management, discussion with other providers, nursing nursing and ancillary staff involved in patient's care documentation, 75 Minutes Advance planning; did discuss with the patient regarding advanced directives as well as CODE STATUS. Did explain the various scenarios involved ( FULL CODE, DNR CCA, DNR CCA with no intubation, and DNR CC and what each meant) patient elected to be DNR CCA no intubation. Order was placed. Time spenton discussion 16 minutes. Charges/Coding Multi Select Codes Visit Charges Visit Charges: 57171 Init Hosp Hospitalists' Procedures Procedures: 18518 Advncd Care Plan 30 Min 07/21/25 1206 Cosigner Signature (if applicable): CC: Dr. Nathaniel Beverly MD; Dr. Nithin Acevedo MD~ Signed [facility]09-04-2025 Radiology Diagnostic study note [facility] Imaging Services [address], [place] [id number] Chest 1 View (Portable) MR#: [id number] Acct: [id number] Name: FEDERICO HU Rep #: [id number] : 1935 M 89 From: Aurora Moore MD PCP: Dr. Nithin Acevedo MD Status: R EG ER Study:Chest 1 View (Portable) Date of Exam: 07/21/25 Exam# [id number] Ordering Dr: Carolina Parra DO PROCEDURE: CHEST 1 VIEW (PORTABLE) 07/21/2025 REASON FOR EXAM: DYSPNEA TECHNIQUE: Frontal view of the chest. COMPARISON: Chest x-ray January 15, 2022. FINDINGS: Lungs: The lungs are symmetrically expanded. Lung volumes are at the lower end of normal. Patchy bilateral perihilar and basal ground-glass and airspace opacities noted. This could be seen with pulmonary edema, mild acute infiltrate/pneumonia or malignancy/metastatic disease. Clinical correlation is advised. Follow-up imaging in 2 weeks to confirm complete resolution is advised. If persistent or worsening, consider chest CT with contrast. There is no consolidation. Pleura: No significant pleural effusion seen. There is no evidence of pneumothorax. Mediastinum: There is no mediastinal widening or mediastinal shift. Heart: The cardiac silhouette is mildly enlarged. Vascular: Calcified aortic atherosclerosis. Tapan: The pulmonary tapan are not enlarged or retracted. Osseous: No acute fracture is seen. Median sternotomy changes are noted. RAD/Chest 1 View (Portable) IMPRESSION: Mild cardiac enlargement. - Perihilar and basal pulmonary opacities, differential and recommendations as discussed above. Reading Location: [facility] CC: Dr. Fely Parra DO; Dr. Nithin Acevedo MD ~ Rn Telemetry: Signed [facility]08-15-2025 Telephone encounter Note* Telephone Encounter - Geneva Valdez - 07/01/2025 1:36 PM EDT Prescription Refill Information The patient has been identified by name and date of : Yes Caregiver verified no other encounters exist for this prescription request: Yes Caregiver confirmed with patient/requestor that no other refills are due, in the near future, with this provider at this time: Yes The last office visit in the department: 03-07-25 Does the patient have a future office visit with this provider/department: Yes Requested Prescriptions Pending Prescriptions Disp Refills doxazosin (CARDURA) 2 mg tablet 90 tablet 1 Sig: Take 1 tablet by mouth daily at bedtime. Geneva Hull July 01, 2025 1:37 PM [facility]08-15-2025 Miscellaneous Notes* Telephone Encounter - Geneva Valdez - 07/01/2025 1:36 PM EDT Prescription Refill Information The patient has been identified by name and date of : Yes Caregiver verified no other encounters exist for this prescription request: Yes Caregiver confirmed with patient/requestor that no other refills are due, in the near future, with this provider at this time: Yes The last office visit in the department: 03-07-25 Does the patient have a future office visit with this provider/department: Yes Requested Prescriptions Pending Prescriptions Disp Refills doxazosin (CARDURA) 2 mg tablet 90 tablet 1 Sig: Take 1 tablet by mouth daily at bedtime. Geneva Hull July 01, 2025 1:37 PM documented in this encounter[facility] [place] Instructions* Patient Instructions* Gisell Cassidy APRN.CNP - 04/01/2025 11:58 AM EDT Plan to repeat the CT scan of your chest in approximately 3 months. We can have a visit after to goover the results. If your cough symptoms worse, you are coughing more, coughing up dark yellow/green sputum, develop fevers, chills, etc, please let the office know. documented in this encounterKing[facility] [place] History of Present illness Narrative* Gisell Cassidy APRN.CNP - 04/01/2025 11:00 AM EDT Images from the original note were not included. Pulmonary Medicine Patients name: Federico Silverio PCP: Nithin Acevedo MD CC: follow-up HPI: Federico Hu is a 89 year old male former 60 pack year smoker, quitting in 1974 with PMH significant for morbid obesity (BMI 46), AF, DM, HTN, CAD s/p CABG, diastolic heart failure, HELDER on CPAP, CKD stage 4. Recent history notable for new onset hypercalcemia and monoclonal protein/MGUS. Hehad a chest CT to rule out lung cancer in light of hypercalcemia which was pertinent for bilateral ground glass and consolidative infiltrates left greater than right. TARAN 01/2025, referred back to pulmonary for chest CT findings. Considered high risk for bronchoscopy with biopsy and recommended follow-up imaging. Treated with course of Cefdinir. Not currently on inhaled therapy. He presents today for CT follow-up. He was pending parathyroidectomy which was cancelled after his last visit d/t recommendations. He is not sure he wishes to go through with it at all. Reports that after his last visit, he completed Cefdinir but does not note any change in respiratory symptoms. Today, patient reports chronic cough with sputum production, typically white/yellow sputum. This has been going on for years and has not changed. No wheezing/chest tightness. No dyspnea at rest. Exertional dyspnea has not changed. No fevers, chills, or night sweats. No recent hospitalizations or ED visits or upper respiratory infections. He reports reflux symptoms are rare. Does not recall experienceing coughing/aspiration with eating. PAST MEDICAL HISTORY Diagnosis Date Anal fissure 06/19/2006 Atrial fibrillation (HCC) 05/13/2016 Benign localized hyperplasia of prostate with urinary obstruction and other lower urinary tract symptoms (LUTS)(600.21) 11/30/2009 CAROTID ART OCCL-NO INFARCT 01/31/2009 Carotid US 1-09: > 50% on the R, < 50% on the L Chronic diastolic CHF (congestive heart failure) ([facility]) 07/22/2018 CKD (chronic kidney disease) stage 4, GFR 15-29 ml/min ([facility]) 07/22/2018 CORONARY ATHEROSCLER UNSPEC VESSEL 01/03/2009 2 V CABG at age 71 ECG 2-: RBBB per Manish ELEVATED PROSTATE SPECIFIC ANTIGEN 02/01/2009 PSA 4.2 in 3-: repeat with free PSA and MARIO in follow up 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 Rothman for injections. HELDER on CPAP 09/19/2016 BiPAP 12-6 cm Nasal Primary osteoarthritis of left hip 11/02/2020 RBBB (right bundle branch block) 07/30/2016 S/P CABG x 2 07/30/2016 Skin mass 10/26/2010 Lipoma, left forehead SLEEP DISTURBANCE NOS 01/31/2009 03-09-09: effic 89%, AHI 3, low sat 86% (< 89% only 1.2 minutes), PLMI 7.5/hr Type II or unspecified type diabetes mellitus without mention of complication, uncontrolled 04/2003 Unspecified essential hypertension 09/2003 Allergies: Fexofenadine Unknown Proscar [Finasterid* Rash Medication List Accurate as of March 31, 2025 9:13 PM. If you have any questions, ask your nurse or doctor. CONTINUE taking these medications atorvastatin 40 mg tablet Commonly known as: LIPITOR clotrimazole 1 % cream Commonly known as: LOTRIMIN Apply 1 application to affected area two times a day. CPAP/BIPAP/OTHER Type .CPAPSettings into a note to see current settings/supplies/DME information. DEXCOM G7 REGIONAL AGRONOMIST Misc Generic drug: Blood-Glucose Meter,Continuous Dx: E11.49. Insulin: Yes. Use to check blood sugars at least 4 times a day DEXCOM G7 SENSOR Laquita Generic drug: Blood-Glucose Sensor Dx: E11.49. Insulin: Yes. Apply new sensor every ten (10) days doxazosin 2 mg tablet Commonly known as: CARDURA Take 1 tablet by mouth daily at bedtime. ELIQUIS 2.5 mg tab(s) Generic drug: apixaban insulin aspart U-100 100 unit/mL (3 mL) Commonly known as: NovoLOG Flexpen U-100 Insulin Inject 8 Units subcutaneously daily with dinner. Patient assistance. (will switch from Humalog sample to Novolog when supply arrives) insulin degludec 200 unit/mL (3 mL) injection Commonly known as: TRESIBA FLEXTOUCH U-200 Inject 64 Units subcutaneously every morning. Pt Assistance Medication. insulin needles (DISPOSABLE) 31 gauge x 5/16 Test blood sugar twice a day DX:E11.49 LASIX 40 mg tablet Generic drug: furosemide multivitamin tablet nitroglycerin sublingual 0.4 mg SL tablet Commonly known as: NITROQUICK Dissolve 1 tablet under the tongue as needed for Chest Pain. If no pain relief call 911. sacubitril-valsartan 97-103 mg tablet Commonly known as: ENTRESTO semaglutide 1 mg/dose (4 mg/3 mL) pen Commonly known as: OZEMPIC Inject 1 mg subcutaneously one time a week. Per medication program. triamcinolone acetonide 0.1 % cream Commonly known as: KeNALog Apply 1 application to affected area two times a day. Apply sparingly to top of ears DATA: I personally reviewed and analyzed all labs, radiographs and available pulmonary function testing PFT: 01/2025 Spirometry indicates no obstruction. The reduced FVC could indicate restriction CT Chest: 12/2024 IMPRESSION: New groundglass and consolidative opacities predominantly in bilateral lower lobes, left greater than right, which may reflect inflammatory/infectious process with differential including pulmonary hemorrhage. Other entities such as pulmonary amyloidosis and pulmonary alveolar proteinosis also possible in the appropriate clinical setting. Rn Telemetry: QUYEN Transcribe Date/Time: Dec 30 2024 11:28A Dictated by : SANGITA GARRIDO MD This examination was interpreted and the report reviewed and electronically signed by: SANGITA GARRIDO MD on Dec 30 2024 12:00PM EST Results-Findings * * *Final Report* * * DATE OF EXAM: Dec 30 2024 11:13AM [facility] 0541 - CT CHEST WO IVCON / PROCEDURE REASON: multiple diagnoses * * * * Physician Interpretation * * * * EXAMINATION: CHEST CT WITHOUT CONTRAST CLINICAL HISTORY: 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 Shortness of breath Technique: Spiral CT acquisition of the chest from the thoracic inlet to the upper abdomen without contrast. MQ: [id number] CT Radiation dose: Integrated Dose-length product (DLP) for this visit = 656 mGy*cm CT Dose Reduction Employed: Automated exposure control(AEC) and iterative recon Comparison: Chest CT 05/09/2021. RESULT: Limitations: None. Lines, tubes, and devices: None. Lung parenchyma and airways: There are new groundglass and consolidative opacities in bilateral lower lobes, left greater than right, along with mild groundglass opacity in the lingula. Subtle interlobular septal thickening also noted. Calcified nodule in the left upper lobe. No new or enlarging suspicious lung nodule. Mild paraseptal emphysema. The central airways are patent. Pleural space: No pleural effusion. No pleural thickening. Lower neck, lymph nodes, and mediastinum: The imaged thyroid gland is stable noting mixed calcified and hypodense nodules in the right thyroid lobe which is asymmetrically enlarged. No lymphadenopathy in the supraclavicular, axillary, mediastinal, or hilar regions. Small hiatal hernia. Heart, pericardium, and thoracic vessels: Mild atherosclerotic calcifications of the thoracic aorta. The thoracic aorta and main pulmonary artery are normal in caliber. There is left atrial enlargement. Mitral annular calcifications present. Severe coronary artery atherosclerotic calcifications are noted status post CABG, although the study is not optimized for coronary assessment. No pericardial effusion or thickening. Bones and soft tissues: Status post median sternotomy. Stable small sclerotic focus at T10 vertebral body, likely a bone island. No destructive bone lesion. Bilateral gynecomastia. Upper abdomen: There is cholelithiasis. Splenic calcified granulomas. Stable 4.5 cm hypodensity in the spleen (5:212), likely a cyst. No acute abnormality in the imaged upper abdomen. Localizer images: No additional findings. Review of Systems Constitutional: Negative for activity change, appetite change, fever and unexpected weight change. HENT: Negative for congestion, postnasal drip and rhinorrhea. Respiratory: Positive for cough and shortness of breath. Negative for chest tightness and wheezing. Cardiovascular: Positive for leg swelling. Negative for chest pain and palpitations. Allergic/Immunologic: Negative for environmental allergies. Neurological: Negative for light-headedness and headaches. BP 106/64 Pulse (!) 57 Wt (!) 156.9 kg (346 lb) SpO2 95% BMI 47.58 kg/m Physical Exam Vitals reviewed. Constitutional: General: He is not in acute distress. Appearance: Normal appearance. He is obese. He is not ill-appearing. HENT: Head: Normocephalic. Cardiovascular: Rate and Rhythm: Normal rate. Rhythm irregular. Pulmonary: Effort: Pulmonary effort is normal. No respiratory distress. Breath sounds: No wheezing or rhonchi. Musculoskeletal: Right lower leg: Edema present. Left lower leg: Edema present. Comments: 2+ b/l Skin: General: Skin is warm and dry. Capillary Refill: Capillary refill takes less than 2 seconds. Neurological: General: No focal deficit present. Mental Status: He is alert. ASSESSMENT/PLAN: 1. Abnormal chest CT - ICD9: 793.2, ICD10: R93.89 (primary diagnosis) 2. Pneumonia of left lower lobe due to infectious organism - ICD9: 486, ICD10: J18.9 - reviewed CT images today with patient and family. Overall improvement in b/l lower lobe opacities. There appears to be a new opacity in LLL, will await final radiology read. Patient currently denies new or worsening symptoms. Denies concern of GERD/aspiration. - repeat chest CT in 3 months. - Will attempt to obtain sputum sample. - patient will notify office if he develops in new or concerning infectious symptoms prior to next visit. - CT CHEST WO IVCON - BACTERIAL CULTURE AND GRAM STAIN, RESPIRATORY, SPUTUM AND TRACHEAL ASPIRATE F/u 3 months Portions of this documentation were copied and pasted from previous office visit notes in order to provide a cohesive continuity of the history. The note has been reviewed and edited and updated as necessary. Gisell Cassidy APRN.RAJWINDER I spent a total of 31 minutes on the date of the service which included preparing to see the patient, [id number] patient care, completing clinical documentation, performing a medically appropriate examination, counseling and educating the patient/family/caregiver, and ordering medications, tests,or procedures. documented in this encounterKing[facility] [place] NoteHNO ID: [id number] Author: GISELL CASSIDY APRN.CNP Service: ? Author Type: Nurse Practitioner Type: Progress Notes Filed: 04/01/2025 18:54 Note Text: Pulmonary Medicine Patients name: Federico Silverio PCP: Nithin Acevedo MD CC: follow-up HPI: Federico Hu is a 89 year old male former 60 pack year smoker, quitting in 1974 with PMH significant for morbid obesity (BMI 46), AF, DM, HTN, CAD s/p CABG, diastolic heart failure, HELDER on CPAP, CKD stage 4. Recent history notable for new onset hypercalcemia and monoclonal protein/MGUS. He had a chest CT to rule out lung cancer in light of hypercalcemia which was pertinent for bilateral ground glass and consolidative infiltrates left greater than right. TARAN 01/2025, referred back to pulmonary for chest CT findings. Considered high risk for bronchoscopy with biopsy and recommended follow-up imaging. Treated with course of Cefdinir. Not currently on inhaled therapy. He presents today for CT follow-up. He was pending parathyroidectomy which was cancelled after his last visit d/t recommendations. He is not sure he wishes to go through with it at all. Reports that after his last visit, he completed Cefdinir but does not note any change in respiratory symptoms. Today, patient reports chronic cough with sputum production, typically white/yellow sputum. This has been going on for years and has not changed. No wheezing/chest tightness. No dyspnea at rest. Exertional dyspnea has not changed. No fevers, chills, or night sweats. No recent hospitalizations or ED visits or upper respiratory infections. He reports reflux symptoms are rare. Does not recall experienceing coughing/aspiration with eating. PAST MEDICAL HISTORY Diagnosis Date Anal fissure 06/19/2006 Atrial fibrillation (HCC) 05/13/2016 Benign localized hyperplasia of prostate with urinary obstruction and other lower urinary tract symptoms (LUTS)(600.21) 11/30/2009 CAROTID ART OCCL-NO INFARCT 01/31/2009 Carotid US 1-09: > 50% on the R, < 50% on the L Chronic diastolic CHF (congestive heart failure) ([facility]) 07/22/2018 CKD (chronic kidney disease) stage 4, GFR 15-29 ml/min ([facility]) 07/22/2018 CORONARY ATHEROSCLER UNSPEC VESSEL 01/03/2009 2 V CABG at age 71 ECG 2-: RBBB per Manish ELEVATED PROSTATE SPECIFIC ANTIGEN 02/01/2009 PSA 4.2 in 3-09: repeat with free PSA and MARIO in follow up Glycosuria 04/2003 HYPERLIPIDEMIA NEC/NOS 01/03/2009 LDL 47, HDL 40, TG 93 in - Hypertrophy of prostate with urinary obstruction and other lower urinary tract symptoms (LUTS) 08/08/2010 Morbid obesity (HCC) 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 Rothman for injections. HELDER on CPAP 09/19/2016 BiPAP 12-6 cm Nasal Primary osteoarthritis of left hip 11/02/2020 RBBB (right bundle branch block) 07/30/2016 S/P CABG x 2 07/30/2016 Skin mass 10/26/2010 Lipoma, left forehead SLEEP DISTURBANCE NOS 01/31/2009 03-09-09: effic 89%, AHI 3, low sat 86% (< 89% only 1.2 minutes), PLMI 7.5/hr Type II or unspecified type diabetes mellitus without mention of complication, uncontrolled 04/2003 Unspecified essential hypertension 09/2003 Allergies: Fexofenadine Unknown Proscar [Finasterid* Rash Medication List Accurate as of March 31, 2025 9:13 PM. If you have any questions, ask your nurse or doctor. CONTINUE taking these medications atorvastatin 40 mg tablet Commonly known as: LIPITOR clotrimazole 1 % cream Commonly known as: LOTRIMIN Apply 1 application to affected area two times a day. CPAP/BIPAP/OTHER Type .CPAPSettings into a note to see current settings/supplies/DME information. DEXCOM G7 REGIONAL AGRONOMIST Misc Generic drug: Blood-Glucose Meter,Continuous Dx: E11.49. Insulin: Yes. Use to check blood sugars at least 4 times a day DEXCOM G7 SENSOR Laquita Generic drug: Blood-Glucose Sensor Dx: E11.49. Insulin: Yes. Apply new sensor every ten (10) days doxazosin 2 mg tablet Commonly known as: CARDURA Take 1 tablet by mouth daily at bedtime. ELIQUIS 2.5 mg tab(s) Generic drug: apixaban insulin aspart U-100 100 unit/mL (3 mL) Commonly known as: NovoLOG Flexpen U-100 Insulin Inject 8 Units subcutaneously daily with dinner. Patient assistance. (will switch from Humalog sample to Novolog when supply arrives) insulin degludec 200 unit/mL (3 mL) injection Commonly known as: TRESIBA FLEXTOUCH U-200 Inject 64 Units subcutaneously every morning. Pt Assistance Medication. insulin needles (DISPOSABLE) 31 gauge x 5/16 Test blood sugar twice a day DX:E11.49 LASIX 40 mg tablet Generic drug: furosemide multivitamin tablet nitroglycerin sublingual 0.4 mg SL tablet Commonly known as: NITROQUICK Dissolve 1 tablet under the tongue as needed for Chest Pain. If no pain relief call 911. sacubitril-valsartan 97-103 mg tablet Commonly known as: ENTRESTO semaglutide 1 mg/dose (4 mg/3 mL) pen Commonly (more content not included)...[facility]04-21-2025 Instructions* Patient Instructions* Katherin Mckinnon APRN.CNP - 03/07/2025 11:57 AM EDT Discuss jaw pain as a possible side effect from Jardiance with Dr. Strickland Call your insurance to see if they cover the new Dexcom G7 15 day continuous glucose monitor or theFreestyle Sofya 3, 15 day glucose monitor documented in this encounterKing[facility] [place]25 NoteHNO ID: [id number] Author: KATHERIN MCKINNON APRN.CNP Service: ? Author Type: Nurse Practitioner Type: Progress Notes Filed: 03/07/2025 12:42 Note Text: CC: Patient presents with: Follow Up HPI Federico Hu is a 89 year old male who presents today for above. Right jaw pain: Reports started 2 weeks ago, described as dull and intermittent ache. Pain does not radiate. He has taken Tylenol which has been effective in relieving the pain. Aggravated by pressure on the jaw and chewing something hard makes. Reports pain at 1/10 in office today. Denies previous pain to right lower jaw, headache, dizziness, fall, trauma. He wears upper and lower dentures no issues with dentures or teeth. No TMJ popping, clicking or locking up. Denies neck, chest or arm pain associated with the jaw pain. Patient firmly believes jaw pain is caused by switch from Farxiga to Jardiance by his commutator operator, which occurred only a few days before onset of pain. Hypertension: taking medications as prescribed, denies side effects. Does not check BP at home. Symptoms: Dizziness/Lightheaded - No Chest Pain - No Shortness of Breath - No Swelling Yes :History of bilateral lower kidney disease Fatigue No Afib- medications managed by commutator operator. Anticoagulation: yes, Eliquis; Rate control: Yes; rhythm control: Yes. He is compliant with medication(s) and is tolerating med(s) without any side effects. REVIEW OF SYSTEMS PAIN ASSESSMENT: 11/26 GENERAL: No weight loss, malaise or fevers HEENT: Negative for frequent or significant headaches, No changes in hearing or vision, no nose bleeds or other nasal problems RESPIRATORY: Negative for cough, hemoptysis, wheezing, COPD, dyspnea or shortness of breath CARDIOVASCULAR: Negative for chest pain, leg swelling, hypertension, CHF or palpitations GI: No nausea, vomiting, or diarrhea : No history of dysuria, frequency or incontinence MUSCULOSKELETAL: chronic lower back pain SKIN: dry skin PSYCH: Negative for sleep disturbance, mood disorder and recent psychosocial stressors HEMATOLOGY/LYMPHOLOGY: Negative for prolonged bleeding, bruising easily or swollen nodes ENDOCRINE: Negative for cold or heat intolerance, polyuria, polydipsia and goiter NEURO: No history of headaches, syncope, paralysis, seizures or tremors PAST MEDICAL HISTORY Diagnosis Date Anal fissure 06/19/2006 Atrial fibrillation (HCC) 05/13/2016 Benign localized hyperplasia of prostate with urinary obstruction and other lower urinary tract symptoms (LUTS)(600.21) 11/30/2009 CAROTID ART OCCL-NO INFARCT 01/31/2009 Carotid US 1-09: > 50% on the R, < 50% on the L Chronic diastolic CHF (congestive heart failure) ([facility]) 07/22/2018 CKD (chronic kidney disease) stage 4, GFR 15-29 ml/min ([facility]) 07/22/2018 CORONARY ATHEROSCLER UNSPEC VESSEL 01/03/2009 2 V CABG at age 71 ECG 2-09: RBBB per Manish ELEVATED PROSTATE SPECIFIC ANTIGEN 02/01/2009 PSA 4.2 in 3-09: repeat with free PSA and MARIO in follow up 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 Rothman for injections. HELDER on CPAP 09/19/2016 BiPAP 12-6 cm Nasal Primary osteoarthritis of left hip 11/02/2020 RBBB (right bundle branch block) 07/30/2016 S/P CABG x 2 07/30/2016 Skin mass 10/26/2010 Lipoma, left forehead SLEEP DISTURBANCE NOS 01/31/2009 03-09-09: effic 89%, AHI 3, low sat 86% (< 89% only 1.2 minutes), PLMI 7.5/hr Type II or unspecified type diabetes mellitus without mention of complication, uncontrolled 04/2003 Unspecified essential hypertension 09/2003 PAST SURGICAL HISTORY Procedure Laterality Date ARTHRP KNE CONDYLEANDPLATU MEDIALANDLAT COMPARTMENTS Left 01/01/2008 Knee replacement, total, Left ARTHRP KNE CONDYLEANDPLATU MEDIALANDLAT COMPARTMENTS Right 04/14/2018 CARDIAC CATH 02/26/2018 COLONOSCOPY FLX DX W/COLLJ SPEC WHEN PFRMD 08/01/06 Posterior anal fissure CORONARY ARTERY BYP W/VEIN AND ARTERY GRAFT 2 VEIN 2006 CABG, two grafts PAST SURGICAL HISTORY OF 07/1979 anal fissure repair PROSTATE BIOPSY RPR 1ST INGUN HRNA AGE 5 YRS/> REDUCIBLE 09/27/1992 Hernia repair, inguinal, left laparoscopic ALLERGIES Fexofenadine and Proscar [Finasteride] MEDICATIONS doxazosin (CARDURA) 2 mg tablet Take 1 tablet by mouth daily at bedtime. Blood-Glucose Meter,Continuous (DEXCOM G7 REGIONAL AGRONOMIST) [facility] Dx: E11.49. Insulin: Yes. Use to check blood sugars at least 4 times a day Blood-Glucose Sensor (DEXCOM G7 SENSOR) laquita Dx: E11.49. Insulin: Yes. Apply new sensor every ten (10) days CPAP/BIPAP/OTHER Type .CPAPSettings into a note to see current settings/supplies/DME information. clotrimazole (LOTRIMIN) 1 % cream Apply 1 application to (more content not included)...[facility]04-21-2025 History of Present illness Narrative* Katherin Mckinnon, PARK WORKER SUPERVISOR.HERBICIDE SPRAYER - 03/07/2025 11:23 AM EDT Images from the original note were not included. CC: Patient presents with: Follow Up HPI Federico Hu is a 89 year old male who presents today for above. Right jaw pain: Reports started 2 weeks ago, described as dull and intermittent ache. Pain does notradiate. He has taken Tylenol which has been effective in relieving the pain. Aggravated by pressure on the jaw and chewing something hard makes. Reports pain at 1/10 in office today. Denies previouspain to right lower jaw, headache, dizziness, fall, trauma. He wears upper and lower dentures no issues with dentures or teeth. No TMJ popping, clicking or locking up. Denies neck, chest or arm pain associated with the jaw pain. Patient firmly believes jaw pain is caused by switch from Farxiga to Jardiance by his commutator operator, which occurred only a few days before onset of pain. Hypertension: taking medications as prescribed, denies side effects. Does not check BP at home. Symptoms: Dizziness/Lightheaded - No Chest Pain - No Shortness of Breath - No Swelling Yes :History of bilateral lower kidney disease Fatigue No Afib- medications managed by commutator operator. Anticoagulation: yes, Eliquis; Rate control: Yes; rhythmcontrol: Yes. He is compliant with medication(s) and is tolerating med(s) without any side effects. REVIEW OF SYSTEMS PAIN ASSESSMENT: 11/26 GENERAL: No weight loss, malaise or fevers HEENT: Negative for frequent or significant headaches, No changes in hearing or vision, no nose bleeds or other nasal problems RESPIRATORY: Negative for cough, hemoptysis, wheezing, COPD, dyspnea or shortness of breath CARDIOVASCULAR: Negative for chest pain, leg swelling, hypertension, CHF or palpitations GI: No nausea, vomiting, or diarrhea : No history of dysuria, frequency or incontinence MUSCULOSKELETAL: chronic lower back pain SKIN: dry skin PSYCH: Negative for sleep disturbance, mood disorder and recent psychosocial stressors HEMATOLOGY/LYMPHOLOGY: Negative for prolonged bleeding, bruising easily or swollen nodes ENDOCRINE: Negative for cold or heat intolerance, polyuria, polydipsia and goiter NEURO: No history of headaches, syncope, paralysis, seizures or tremors PAST MEDICAL HISTORY Diagnosis Date Anal fissure 06/19/2006 Atrial fibrillation (HCC) 05/13/2016 Benign localized hyperplasia of prostate with urinary obstruction and other lower urinary tract symptoms (LUTS)(600.21) 11/30/2009 CAROTID ART OCCL-NO INFARCT 01/31/2009 Carotid -09: > 50% on the R, < 50% on the L Chronic diastolic CHF (congestive heart failure) ([facility]) 07/22/2018 CKD (chronic kidney disease) stage 4, GFR 15-29 ml/min ([facility]) 07/22/2018 CORONARY ATHEROSCLER UNSPEC VESSEL 01/03/2009 2 V CABG at age 71 ECG 12-26: RBBB per Manish ELEVATED PROSTATE SPECIFIC ANTIGEN 02/01/2009 PSA 4.2 in 01-23: repeat with free PSA and MARIO in follow up 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 Rothman for injections. HELDER on CPAP 09/19/2016 BiPAP 12-6 cm Nasal Primary osteoarthritis of left hip 11/02/2020 RBBB (right bundle branch block) 07/30/2016 S/P CABG x 2 07/30/2016 Skin mass 10/26/2010 Lipoma, left forehead SLEEP DISTURBANCE NOS 01/31/2009 03-09-09: effic 89%, AHI 3, low sat 86% (< 89% only 1.2 minutes), PLMI 7.5/hr Type II or unspecified type diabetes mellitus without mention of complication, uncontrolled 04/2003 Unspecified essential hypertension 09/2003 PAST SURGICAL HISTORY Procedure Laterality Date ARTHRP KNE CONDYLE&PLATU MEDIAL&LAT COMPARTMENTS Left 01/01/2008 Knee replacement, total, Left ARTHRP KNE CONDYLE&PLATU MEDIAL&LAT COMPARTMENTS Right 04/14/2018 CARDIAC CATH 02/26/2018 COLONOSCOPY FLX DX W/COLLJ SPEC WHEN PFRMD 08/01/06 Posterior anal fissure CORONARY ARTERY BYP W/VEIN & ARTERY GRAFT 2 VEIN 2006 CABG, two grafts PAST SURGICAL HISTORY OF 07/1979 anal fissure repair PROSTATE BIOPSY RPR 1ST INGUN HRNA AGE 5 YRS/> REDUCIBLE 09/27/1992 Hernia repair, inguinal, left laparoscopic ALLERGIES Fexofenadine and Proscar [Finasteride] MEDICATIONS doxazosin (CARDURA) 2 mg tablet Take 1 tablet by mouth daily at bedtime. Blood-Glucose Meter,Continuous (DEXCOM G7 REGIONAL AGRONOMIST) [facility] Dx: E11.49. Insulin: Yes. Use to check blood sugars at least 4 times a day Blood-Glucose Sensor (DEXCOM G7 SENSOR) laquita Dx: E11.49. Insulin: Yes. Apply new sensor every ten (10) days CPAP/BIPAP/OTHER Type .CPAPSettings into a note to see current settings/supplies/DME information. clotrimazole (LOTRIMIN) 1 % cream Apply 1 application to affected area two times a day. semaglutide (OZEMPIC) 1 mg/dose (4 mg/3 mL) pen Inject 1 mg subcutaneously one time a week. Per medication program. furosemide (LASIX) 40 mg tablet Take one(1) tablet daily in the morning. Take one(1) tablet in the evening, every other day. Per Cardiology. triamcinolone acetonide (KENALOG) 0.1 % cream Apply 1 application to affected area two times a day.Apply sparingly to top of ears apixaban (ELIQUIS) 2.5 mg tab(s) Take 1 tablet by mouth twice daily. Per Cardiology. sacubitril-valsartan (ENTRESTO) 97-103 mg tablet Take 1 tablet by mouth two times a day. Per Cardiology. insulin degludec (TRESIBA FLEXTOUCH U-200) 200 unit/mL (3 mL) injection Inject 64 Units subcutaneously every morning. Pt Assistance Medication. insulin aspart U-100 (NOVOLOG FLEXPEN U-100 INSULIN) 100 unit/mL (3 mL) Inject 8 Units subcutaneously daily with dinner. Patient assistance. (will switch from Humalog sample to Novolog when supply arrives) atorvastatin (LIPITOR) 40 mg tablet Take 40 mg by mouth once daily. insulin needles, DISPOSABLE, 31 gauge x 5/16 ndle Test blood sugar twice a day DX:E11.49 nitroglycerin sublingual (NITROQUICK) 0.4 mg SL tablet Dissolve 1 tablet under the tongue as neededfor Chest Pain. If no pain relief call 911. MULTIVITAMIN TAB Take one(1) tablet daily. FAMILY HISTORY Problem Relation Age of Onset Coronary Artery Disease Father age 69 Diabetes Father Breast Cancer Mother age 75 Diabetes Mother GI Brother Social History Tobacco Use Smoking status: Former Current packs/day: 0.00 Average packs/day: 3.0 packs/day for 20.0 years (60.0 ttl pk-yrs) Types: Cigarettes Start date: 11/17/1954 Quit date: 11/17/1974 Years since quittin.3 Smokeless tobacco: Never Vaping Use Vaping status: Never Used Substance Use Topics Alcohol use: No Drug use: No BP 100/52 Pulse 66 Resp 18 Wt (!) 157 kg (346 lb 2 oz) SpO2 96% BMI 47.60 kg/m Physical Exam Vitals and nursing note reviewed. Constitutional: General: He is awake. Appearance: Normal appearance. HENT: Head: Normocephalic and atraumatic. Jaw: No tenderness, swelling or pain on movement. Comments: Right lower jaw pain Mouth/Throat: Mouth: Mucous membranes are moist. No injury, lacerations, oral lesions or angioedema. Dentition: Normal dentition. No dental tenderness, gingival swelling, dental abscesses or gum lesions. Pharynx: Oropharynx is clear. Cardiovascular: Rate and Rhythm: Normal rate. Rhythm regularly irregular. Comments: History of AFib Pulmonary: Effort: Pulmonary effort is normal. Breath sounds: Normal breath sounds. Skin: General: Skin is warm and dry. Neurological: Mental Status: He is alert and oriented to person, place, and time. Mental status is at baseline. Psychiatric: Attention and Perception: Attention and perception normal. Mood and Affect: Mood normal. Speech: Speech normal. Behavior: Behavior normal. Behavior is cooperative. Thought Content: Thought content normal. Cognition and Memory: Cognition and memory normal. Judgment: Judgment normal. ASSESSMENT/PLAN: 1. 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 Pain is mild. No symptoms to suggest cardiac etiology. Patient is adamant pain is due to new medication Jardiance, was previously on Farxiga and was changed by his commutator operator. Recommend discussing further with his commutator operator. 2. Atrial fibrillation, unspecified type (HCC) - ICD9: 427.31, ICD10: I48.91 Stable, managed by cardiology. Follow-up and medications as directed. 3. Type 2 diabetes mellitus with neurological manifestations, controlled (HCC) - ICD9: 250.60, ICD10: E11.49 - Controlled - Continue current medications - patient requesting change of CGM from needing replacement every 10 days to 15 days. Recommend patient verify coverage with his insurance first. 4. Essential hypertension - ICD9: 401.9, ICD10: I10 - Controlled - Continue current medications - Recommend home blood pressure monitoring, to bring results to next visit - Encouraged sodium restriction, DASH or Mediterranean diet Katherin Mckinnon APRN.CNP Medical Decision Making: Problems: Moderate: New problem with uncertain prognosis and 2+ stable chronic illnesses Data: Unique test result(s) reviewed: 1 Risk: Low: Low risk from testing/treatment Medical Decision Making Level: 3 - Low documented in this encounterKing[facility] [place]04-[facility] Telephone encounter Note * Telephone Encounter - Jodie Bowers APRN.CNP - 02/18/2025 11:57 AM EDT Images from the original note were not included. You Kristin Guevara MD; Christal Lau RNJust now (11:57 AM) Thank you Christal Lau RN Jin, Judy, MDJust now (11:57 AM) LI I called and spoke with . Surgery is cancelled . Kristin Ocampo MD You; Christal Lau RN12 minutes ago (11:45 AM) Yes we will postpone parathyroid surgery for now. Thanks! You Viet Lee MD; Kristin Guevara MD1 hour ago (10:16 AM) Pt has scheduled f/u chest CT and pulmonary appt 04/01/2025 You Viet Lee MD; Kristin Guevara MD1 hour ago (10:12 AM) Dr. Guevara do you feel pt can wait for this upcoming surgery until respiratory status is optimized as best possible for pt? Viet Lee MD You18 hours ago (5:06 PM) He is obviously high risk for surgery as well. I guess it depends on how urgent the surgery is and if it can wait. [facility] [place]04-04-2025 Miscellaneous Notes* Telephone Encounter - Jodie Bowers APRN.CNP - 02/18/2025 11:57 AM EDT Images from the original note were not included. You Kristin Guevara MD; Christal Lau RNJust now (11:57 AM) Thank you Christal Lau, RN Kristin Guevara MDJust now (11:57 AM) LI I called and spoke with . Surgery is cancelled . Kristin Ocampo MD You; Christal Lau RN12 minutes ago (11:45 AM) Yes we will postpone parathyroid surgery for now. Thanks! You Viet Lee MD; Kristin Guevara MD1 hour ago (10:16 AM) Pt has scheduled f/u chest CT and pulmonary appt 04/01/2025 You Viet Lee MD; Kristin Guevara MD1 hour ago (10:12 AM) Dr. Guevara do you feel pt can wait for this upcoming surgery until respiratory status is optimized as best possible for pt? Viet Lee MD You18 hours ago (5:06 PM) He is obviously high risk for surgery as well. I guess it depends on how urgent the surgery is and if it can wait. * Telephone Encounter - Jodie Bowers APRN.CNP - 02/17/2025 8:53 AM EDT Pt is scheduled 03/11/[address] Guevara at . Per your last TE to pt below ptwas to be tx with antibiotics and repeat chest CT in March with office follow up due to being considered too high risk for bronch with transbronchial biopsy with interventional pulmonary. What are your recommendations with pt proceeding with this surgery if he was deemed to high risk for a bronch bx?I've included his surgeon for discussion. TE Dr. Lee 01/24/2025 I spoke with Jean Claude regarding recent consultation to interventional pulmonary regarding bronchoscopywith transbronchial biopsy. Patient is high risk and recommendations were for a course of antibiotics with repeat CT and potential intervention if infiltrates were persistent. After speaking with Jean Claude, he is deciding against any invasive intervention at this time. He is agreeable to a course of antibiotics with repeat CT of his chest. I will make arrangements for the CT and send in a prescription to [facility] for his antibiotic. documented in this encounterKing[facility] [place]04-04-2025 Telephone encounter Note * Telephone Encounter - Christal Lau RN - 02/18/2025 11:52 AM EDT Phoned and spoke with patient's . I called to let them know that Dr. Guevara is postponing his parathyroid surgery . I told his that we would revisit after he has sees pulmonary in March. His wifewill relay the message to Mr. Hu. Christal Lau RN [facility] [place]04-04-2025 Miscellaneous Notes* Telephone Encounter - Christal Lau RN - 02/18/2025 11:52 AM EDT Phoned and spoke with patient's . I called to let them know that Dr. Guevara is postponing his parathyroid surgery . I told his that we would revisit after he has sees pulmonary in March. His wifewill relay the message to Mr. Hu. Christal Lau RN documented in this encounterKing[facility] [place]04-03-2025 Telephone encounter Note * Telephone Encounter - Jodie Bowers APRN.CNP - 02/17/2025 8:53 AM EDT Pt is scheduled 03/11/[address] Guevara at . Per your last TE to pt below ptwas to be tx with antibiotics and repeat chest CT in March with office follow up due to being considered too high risk for bronch with transbronchial biopsy with interventional pulmonary. What are your recommendations with pt proceeding with this surgery if he was deemed to high risk for a bronch bx?I've included his surgeon for discussion. TE Dr. Lee 01/24/2025 I spoke with Jean Claude regarding recent consultation to interventional pulmonary regarding bronchoscopywith transbronchial biopsy. Patient is high risk and recommendations were for a course of antibiotics with repeat CT and potential intervention if infiltrates were persistent. After speaking with Jean Claude, he is deciding against any invasive intervention at this time. He is agreeable to a course of antibiotics with repeat CT of his chest. I will make arrangements for the CT and send in a prescription to [facility] for his antibiotic. [facility] [place]04-01-2025 Telephone encounter Note* Telephone Encounter - Lisa Trivedi LPN - 02/15/2025 11:20 AM EDT Letter and medical records received from Dr Strickland via fax. Scanned in to [facility]. Lennie Trivedi LPN [facility] [place]04-01-2025 Miscellaneous Notes* Telephone Encounter - Lisa Trivedi LPN - 02/15/2025 11:20 AM EDT Letter and medical records received from Dr Strickland via fax. Scanned in to [facility]. Lennie Trivedi LPN documented in this encounterKing'S [facility] [place]04-01-2025 History and physical note * Jodie Bowers APRN.RAJWINDER - 02/15/2025 9:14 AM EDT Images from the original note were not included. [facility] HISTORY AND PHYSICAL EXAMINATION SERVICE DATE: 02/15/2025 SERVICE TIME: 10:21 AM PRIMARY CARE PHYSICIAN: Nithin Acevedo MD Assessment Patient has the following medical conditions which may affect neva-operative course: Chronic diastolic CHF (congestive heart failure) (HCC) Assessment: daily Entresto, Grade 3 diastolic dysfunction, EF 60-65%, last cardiac OV on 11/23/2024 scanned into [facility] 11/2024 Echo Scanned into [facility] Type 2 diabetes mellitus with neurological manifestations, controlled ([facility]) Assessment: IDDM and weekly injectable, w/ neuropathy Hemoglobin A1C (%) Date Value 07/28/2024 6.4 11/15/2021 9.3 Hemoglobin A1C (POCT) (%) Date Value 10/13/2023 6.7 VHD (valvular heart disease) 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, mild to moderate TVR, trivial AVR and mildAVS (dimensions below), and trivial PVR Coronary atherosclerosis Assessment: s/p CABG, followed by stents, c/w daily ASA 11/23/2024 Dr. Strickland, Cardiology, Scanned into [facility] Atrial fibrillation ([facility]) Assessment: paroxymal atrial flutter, s/p cardioversion 2015 at [facility], rate controlled, daily Eliquis, reviewed to withhold 3 days prior to surgery, pt verbalized understanding. 11/23/2024 Dr. Strickland, Cardiology, Scanned into [facility] RBBB (right bundle branch block) Assessment: hx, asymptomatic Essential hypertension Assessment: controlled on rx Last 14 BP Last 14 Encounter BP Readings: Date: BP: 02/15/2025 116/72 01/21/2025 130/66 12/13/2024 109/58 12/13/2024 123/48 11/26/2024 120/50 11/05/2024 110/50 09/01/2024 124/60 07/28/2024 118/64 03/27/2024 121/76 10/13/2023 128/66 05/09/2023 111/51 06/12/2022 130/68 11/23/2021 144/78[bp true[ 07/05/2021 113/70 Hyperlipemia Assessment: c/w statin HELDER on CPAP Assessment: c/w CPAP CKD (chronic kidney disease) stage 4, GFR 15-29 ml/min ([facility]) Assessment: following nephrology Creatinine Date Value Ref Range Status 02/15/2025 2.82 (H) 0.73 - 1.22 mg/dL Final 01/21/2025 2.76 (H) 0.73 - 1.22 mg/dL Final 01/04/2025 3.04 (H) 0.73 - 1.22 mg/dL Final 12/30/2024 3.46 (H) 0.73 - 1.22 mg/dL Final Abnormal chest CT Assessment: following pulmonary, pending ?bronch, has pending referral for interventional pulmonaryfor consideration of bronch, but was decided he was too high risk and to tx with atb and repeat CT in March, to Dr. Lee for pulmonary optimization TE Dr. Lee 01/24/2025 I spoke with Jean Claude regarding recent consultation to interventional pulmonary regarding bronchoscopywith transbronchial biopsy. Patient is high risk and recommendations were for a course of antibiotics with repeat CT and potential intervention if infiltrates were persistent. After speaking with Jean Claude, he is deciding against any invasive intervention at this time. He is agreeable to a course of antibiotics with repeat CT of his chest. I will make arrangements for the CT and send in a prescription to [facility] for his antibiotic. DATE OF EXAM: Dec 30 2024 11:13AM [facility] 0541 - CT CHEST WO IVCON / IMPRESSION: New groundglass and consolidative opacities predominantly in bilateral lower lobes, left greater than right, which may reflect inflammatory/infectious process with differential including pulmonary hemorrhage. Other entities such as pulmonary amyloidosis and pulmonary alveolar proteinosis also possible in the appropriate clinical setting. MGUS (monoclonal gammopathy of unknown significance) Assessment: est with hem/onc Anemia Assessment: following hem/onc Hemoglobin (g/dL) Date Value 02/15/2025 10.9 06/01/2021 15.1 Hematocrit (%) Date Value 02/15/2025 35.4 06/01/2021 47.4 WBC (k/uL) Date Value 02/15/2025 5.20 06/01/2021 7.07 BPH with obstruction/lower urinary tract symptoms Assessment: controlled on rx ANESTHESIA FINDINGS: Intubation History: No history of difficult intubation Significant Anesthesia Considerations: none Airway History: No history of difficult airway To Activity Status Index: METS: Walk indoors, such as around the house (1.75 METs) Do light work around the house, such as dusting or washing dishes (2.70 METs) Take care of self; that is eating, dressing, bathing, using the toilet (2.75 METs) Walk a block or two on level ground (2.75 METs) DASI Score: 9.95 (With walker) Patient denies any chest pain or undue shortness of breath with the above physical activity. Clinical Frailty Scale: 4. Apparently vulnerable STOP-Bang Score: Snores loudly Often feels tired, fatigued, or sleepy during the daytime Has been observed to stop breathing or choking/gasping during sleep Has or is being treated for high blood pressure BMI greater than 35 kg/m^2 Patient over 50 years old Has a large neck Male patient STOP-Bang Score: 8 [id number] Score: Age: >=75 Sex: male CHF history: Yes Hypertension history: Yes Stroke/TIA/thromboembolism history: No Vascular disease history: Yes Diabetes history: Yes [id number] Score: 6 ARISCAT Score: Age: >80 Preoperative SpO2: 91-95% Respiratory infection in the last month: No Preoperative anemia: No Surgical incision: peripheral Duration of surgery: <2 hrs Emergency procedure: No ARISCAT Score: 24 I - PHYSICAL EVALUATION AIRWAY Patient intubated: No. Tracheostomy tube not present Mallampati: IV. TM distance: >3 FB. Neck ROM: limited flexion and extension. Mouth opening: adequate. Short neck: no. Thick neck: yes Ramos present: yes Lip Bite Test: I Microretrognathia/Micronagthia/Recessed Chin: No DENTAL Dental findings: teeth intact. Dentures, upper: complete. Dentures, lower: complete. II - ANESTHESIA PLAN Anesthetic Plan: other Beta [place] Monitoring Plan Post Procedure Analgesic Plan Prepared for Surgery: optimally prepared for surgery, pending [see comment]. [id number] TE to Dr. Lee for pulmonary optimization CONSULTS: The following consults have been initiated at this time: pulmonary. Planned Anesthetic: other anesthesia choice The Following Tests/Procedures Have Been Initiated: Orders Placed This Encounter >CBC + AUTO DIFF Standing Status: Future Number of Occurrences: 1 Expected Date: 02/15/2025 Expiration Date: 05/17/2025 >CMP Standing Status: Future Number of Occurrences: 1 Expected Date: 02/15/2025 Expiration Date: 05/17/2025 >HGB A1c (Today or soon) Standing Status: Future Number of Occurrences: 1 Expected Date: 02/15/2025 Expiration Date: 05/17/2025 NT Pro BNP Standing Status: Future Number of Occurrences: 1 Expected Date: 02/15/2025 Expiration Date: 05/17/2025 REASON FOR VISIT: Federico Hu is a 89 year old male who is scheduled for Procedure(s): PARATHYROIDECTOMY (N/A) at the request of @[email or web address]@ for consultation. My final recommendation will be communicated back to the requesting physician by way of shared medical record or letter. Subjective The patient has the following: COVID-19 Immunization Status Upcoming Covid-19 Vaccine () Postponed until 11/05/2025 11/05/2024 Postponed until 11/05/2025 by Katherin Mckinnon APRN.HERBICIDE SPRAYER (Declined at this time) 10/13/2023 Postponed until 10/13/2024 by Katherin Amezcua APRN.HERBICIDE SPRAYER (Declined at this time) 01/03/2021 Imm Admin: COVID-19 original vaccine, full dose, monovalent (MODERNA) Only the first 3 history entries have been loaded, but more history exists. CHIEF COMPLAINT: Pre-op exam HPI: Federico Hu is a 89 year old seen for PAC due to scheduled above surgery because of hyperparathyroidism. 12/13/2024, Dr. Guevara Thank you for referring this patient to me. As you know, he is an 89 year old man who was found to have elevated calcium levels during a consult with his keno manager. Subsequently biochemical workupalso revealed an elevated PTH level. The diagnosis of primary hyperparathyroidism was made, and he was referred here for further evaluation. His hypercalcemia has been present since 2017 but it was worsened recently. Mr. Hu has multiple medical issues including afib on Eliquis, CHF, CKD, HELDER and hyperlipidemia.His last surgical history was over five years ago when he had knee replacement done. He did well with the spinal anesthesia. His medication list was reviewed today and he has allergy to Proscar and fexofenadine. He is currently taking Lasix at 40 mg daily. In terms of family history, there is no history of thyroid of parathyroid disease. He has had no personal history of head and neck radiation. He is not a smoker but used to smoke when he was younger.And he is and retired. He lives at home by himself but needs help with cooking and cleaning. In terms of symptoms related to hyperparathyroidism, he reports the following symptoms: musculoskeletal pain. REVIEW OF SYSTEMS: General: No weight loss, malaise or fevers. Neurological: No history of TIA's, stroke, DINING CHAIR SEAT CUSHION TRIMMER tumor, impaired sensorium, hemiplegia, paraplegia orquadraplegia. No neurological symptoms or problems. Respiratory: +former smoker Positive for: obstructive sleep apnea and CPAP/BiPAP compliant. Negative for: asthma, COPD, current cough, dyspnea, pneumonia within 6 weeks, tobacco use and URI < 2 weeks. Cardiovascular: Positive for: anticoagulation therapy, arrhythmia (RBBB), atrial fibrillation, CAD, CHF, DVT/PE, hyperlipidemia, hypertension, murmur/valvular heart disease, open heart surgery and PVD Patient's last office visit with commutator operator, [facility], The following tests and/or procedures were performed: cardiac stents. Negative for: abdominal aortic aneurysm, AICD/PPM, angina, recent ME, PTCA and valve surgery. GI: Positive for: dysphagia Negative for: abdominal pain, esophageal stricture, GERD, GI bleed <30 days, heartburn, hepatitis, irritable bowel syndrome, inflammatory bowel disease, liver disease, nausea, pancreatitis, vomiting and ETOH >2 drinks/day. : Positive for: BPH and renal failure. Patient's renal failure is chronic. Negative for: urinary tract infection. Endocrine: See HPI. Positive for: diabetes mellitus and diabetic neuropathy. Patient's diabetes mellitus is controlled by insulin and weekly injectable. Negative for: hypothyroidism. Hematology: Positive for: bruises/bleeds easily and chronic anti-coagulation/platelet meds. Patient is on anti-coagulation/platelet medication(s): Aspirin and DOAC. Negative for: anemia and transfusion of at least 4 units within 72 hours prior to surgery. Oncology: No history of CA metastasis, chemo within 30 days, or radiotherapy within 90 days. No history of oncological symptoms or problems. Psych: No history of psychiatric symptoms or problems. Musculoskeletal: Walker +hx bilateral TKA Positive for: back pain and swelling. Skin: +LE dermatitis PAST MEDICAL HISTORY Diagnosis Date Anal fissure 06/19/2006 Atrial fibrillation (HCC) 05/13/2016 Benign localized hyperplasia of prostate with urinary obstruction and other lower urinary tract symptoms (LUTS)(600.21) 11/30/2009 CAROTID ART OCCL-NO INFARCT 01/31/2009 Carotid 1-09: > 50% on the R, < 50% on the L Chronic diastolic CHF (congestive heart failure) ([facility]) 07/22/2018 CKD (chronic kidney disease) stage 4, GFR 15-29 ml/min ([facility]) 07/22/2018 CORONARY ATHEROSCLER UNSPEC VESSEL 01/03/2009 2 V CABG at age 71 ECG 2-09: RBBB per [facility] ELEVATED PROSTATE SPECIFIC ANTIGEN 02/01/2009 PSA 4.2 in 01-23: repeat with free PSA and MARIO in follow up 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 Rothman for injections. HELDER on CPAP 09/19/2016 BiPAP 12-6 cm Nasal Primary osteoarthritis of left hip 11/02/2020 RBBB (right bundle branch block) 07/30/2016 S/P CABG x 2 07/30/2016 Skin mass 10/26/2010 Lipoma, left forehead SLEEP DISTURBANCE NOS 01/31/2009 03-09-09: effic 89%, AHI 3, low sat 86% (< 89% only 1.2 minutes), PLMI 7.5/hr Type II or unspecified type diabetes mellitus without mention of complication, uncontrolled 04/2003 Unspecified essential hypertension 09/2003 PAST SURGICAL HISTORY Procedure Laterality Date ARTHRP KNE CONDYLE&PLATU MEDIAL&LAT COMPARTMENTS Left 01/01/2008 Knee replacement, total, Left ARTHRP KNE CONDYLE&PLATU MEDIAL&LAT COMPARTMENTS Right 04/14/2018 CARDIAC CATH 02/26/2018 COLONOSCOPY FLX DX W/COLLJ SPEC WHEN PFRMD 08/01/06 Posterior anal fissure CORONARY ARTERY BYP W/VEIN & ARTERY GRAFT 2 VEIN 2006 CABG, two grafts PAST SURGICAL HISTORY OF 07/1979 anal fissure repair PROSTATE BIOPSY RPR 1ST INGUN HRNA AGE 5 YRS/> REDUCIBLE 09/27/1992 Hernia repair, inguinal, left laparoscopic FAMILY HISTORY Problem Relation Age of Onset Coronary Artery Disease Father age 69 Diabetes Father Breast Cancer Mother age 75 Diabetes Mother GI Brother Social History Tobacco Use Smoking status: Former Current packs/day: 0.00 Average packs/day: 3.0 packs/day for 20.0 years (60.0 ttl pk-yrs) Types: Cigarettes Start date: 11/17/1954 Quit date: 11/17/1974 Years since quittin.2 Smokeless tobacco: Never Vaping Use Vaping status: Never Used Substance Use Topics Alcohol use: No Drug use: No Prior to Admission medications as of 02/15/25 1219 Medication Sig Last Dose Taking doxazosin (CARDURA) 2 mg tablet Take 1 tablet by mouth daily at bedtime. Yes Blood-Glucose Meter,Continuous (DEXCOM G7 REGIONAL AGRONOMIST) [facility] Dx: E11.49. Insulin: Yes. Use to check blood sugars at least 4 times a day Yes Blood-Glucose Sensor (DEXCOM G7 SENSOR) [facility] Dx: E11.49. Insulin: Yes. Apply new sensor every ten (10) days Yes CPAP/BIPAP/OTHER Type .CPAPSettings into a note to see current settings/supplies/DME information. Yes clotrimazole (LOTRIMIN) 1 % cream Apply 1 application to affected area two times a day. Yes semaglutide (OZEMPIC) 1 mg/dose (4 mg/3 mL) pen Inject 1 mg subcutaneously one time a week. Per medication program. Yes blood sugar diagnostic (TRUE METRIX GLUCOSE TEST STRIP) test strip Test twice daily. Dx: E11.49. Insulin: Yes. Yes furosemide (LASIX) 40 mg tablet Take one(1) tablet daily in the morning. Take one(1) tablet in the evening, every other day. Per Cardiology. Yes triamcinolone acetonide (KENALOG) 0.1 % cream Apply 1 application to affected area two times a day.Apply sparingly to top of ears Yes apixaban (ELIQUIS) 2.5 mg tab(s) Take 1 tablet by mouth twice daily. Per Cardiology. Yes sacubitril-valsartan (ENTRESTO) 97-103 mg tablet Take 1 tablet by mouth two times a day. Per Cardiology. Yes insulin degludec (TRESIBA FLEXTOUCH U-200) 200 unit/mL (3 mL) injection Inject 64 Units subcutaneously every morning. Pt Assistance Medication. Yes insulin aspart U-100 (NOVOLOG FLEXPEN U-100 INSULIN) 100 unit/mL (3 mL) Inject 8 Units subcutaneously daily with dinner. Patient assistance. (will switch from Humalog sample to Novolog when supply arrives) Yes atorvastatin (LIPITOR) 40 mg tablet Take 40 mg by mouth once daily. Yes insulin needles, DISPOSABLE, 31 gauge x 5/16 ndle Test blood sugar twice a day DX:E11.49 Yes nitroglycerin sublingual (NITROQUICK) 0.4 mg SL tablet Dissolve 1 tablet under the tongue as neededfor Chest Pain. If no pain relief call 911. Yes MULTIVITAMIN TAB Take one(1) tablet daily. Yes No medication comments found. ALLERGIES Allergen Reactions Fexofenadine Unknown Proscar [Finasterid* Rash Objective PHYSICAL EXAM: General: alert and oriented (x3), healthy appearance and morbidly obese. Pertinent negatives noted - not distressed. +antalgic gait. Skin: normal color, no rash or lesions. BLE dermatitis. HEENT: EOM intact and pupils equal round. Pertinent negatives noted - no carotid bruit. Cardiovascular: Pulse characterized as regular.Positive for murmur. Pertinent negatives noted - no rub and no gallop. Respiratory: normal breath sounds, no wheezes or crackles. No chest wall deformity or tenderness. Abdomen: soft. Pertinent negatives noted - not tender. Extremities: Positive for edema (BLE mild). Neurological: normal cognition and motor skills. Positive for abnormal gait. PAIN ASSESSMENT: VITALS: BP 116/72 Pulse 73 Resp 22 Ht 5' 11.5 (1.82m) Wt 342 lb 3.2 oz (155.2kg) SpO2 95% BMI 47.07 kg/(m^2). Diagnostic tests reviewed for today's visit: Lab Value Units Date High Low HB 10.9 g/dL 02/15/2025 17.0 13.0 HCT 35.4 % 02/15/2025 51.0 39.0 WBC 5.20 k/uL 02/15/2025 11.00 3.70 PLT 123 k/uL 02/15/2025 400 150 NA 144 mmol/L 02/15/2025 144 136 K 4.1 mmol/L 02/15/2025 5.1 3.7 GLUC 90 mg/dL 02/15/2025 99 74 BUN 57 mg/dL 02/15/2025 24 9 CREAT 2.82 mg/dL 02/15/2025 1.22 0.73 PTSEC No results within date range. INR No results within date range. APTT No results within date range. ALT 10 U/L 02/15/2025 54 10 AST 11 U/L 02/15/2025 40 14 TBILI 0.5 mg/dL 02/15/2025 1.3 0.2 TSH No results within date range. Lab Value Units Date High Low HCGQT No results within date range. UHCG No results within date range. HCG, BODY* No results within date range. Lab Value Units Date High Low ABORHD No results within date range. ABSCREEN No results within date range. Hemoglobin A1C (%) Date Value 02/15/2025 5.7 07/28/2024 6.4 02/22/2022 8.9 11/15/2021 9.3 06/01/2021 8.0 03/02/2021 11.6 11/27/2020 9.3 05/29/2020 8.9 Hemoglobin A1C (POCT) (%) Date Value 10/13/2023 6.7 05/09/2023 6.5 06/12/2022 6.9 Recent Results (from the past 8760 hours) ECG COMPLETE Collection Time: 02/15/25 9:21 AM Result Value Ventricular Rate 59 Atrial Rate 277 QRS Duration 150 QT Interval 458 QTC Calculation (Bazett) 453 Calculated R Haywood 90 Calculated T Haywood 13 Impression ATRIAL FIBRILLATION WITH SLOW VENTRICULAR RESPONSE WITH PREMATURE VENTRICULAR COMPLEXES COMPLETE RIGHT BUNDLE BRANCH BLOCK ABNORMAL ECG Confirmed by MD JUSTICE, QARAB ([id number]) on 02/16/2025 4:14:50 PM No results found for this or any previous visit (from the past 95397 hours). Instructions Given to Patient: Instructions located in the after visit summary. Patient given verbal and written preop instructions and voices comprehension and compliance. SIGNATURE: Jodie Bowers APRN.CNP PATIENT NAME: Federico Hu DATE: February 15, 2025 TIME: 9:14 AM PAGER/CONTACT #: [facility]04-01-2025 History and physical note* Jodie Bowers APRN.CNP - 02/15/2025 9:14 AM EDT Images from the original note were not included. [facility] HISTORY AND PHYSICAL EXAMINATION SERVICE DATE: 02/15/2025 SERVICE TIME: 10:21 AM PRIMARY CARE PHYSICIAN: Nithin Acevedo MD Assessment Patient has the following medical conditions which may affect neva-operative course: Chronic diastolic CHF (congestive heart failure) (HCC) Assessment: daily Entresto, Grade 3 diastolic dysfunction, EF 60-65%, last cardiac OV on 11/23/2024 scanned into epic 11/2024 Echo Scanned into [facility] Type 2 diabetes mellitus with neurological manifestations, controlled ([facility]) Assessment: IDDM and weekly injectable, w/ neuropathy Hemoglobin A1C (%) Date Value 07/28/2024 6.4 11/15/2021 9.3 Hemoglobin A1C (POCT) (%) Date Value 10/13/2023 6.7 VHD (valvular heart disease) 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, mild to moderate TVR, trivial AVR and mildAVS (dimensions below), and trivial PVR Coronary atherosclerosis Assessment: s/p CABG, followed by stents, c/w daily ASA 11/23/2024 Dr. Strickland, Cardiology, Scanned into [facility] Atrial fibrillation ([facility]) Assessment: paroxymal atrial flutter, s/p cardioversion 2015 at [facility], rate controlled, daily Eliquis, reviewed to withhold 3 days prior to surgery, pt verbalized understanding. 11/23/2024 Dr. Strickland, Cardiology, Scanned into [facility] RBBB (right bundle branch block) Assessment: hx, asymptomatic Essential hypertension Assessment: controlled on rx Last 14 BP Last 14 Encounter BP Readings: Date: BP: 02/15/2025 116/72 01/21/2025 130/66 12/13/2024 109/58 12/13/2024 123/48 11/26/2024 120/50 11/05/2024 110/50 09/01/2024 124/60 07/28/2024 118/64 03/27/2024 121/76 10/13/2023 128/66 05/09/2023 111/51 06/12/2022 130/68 11/23/2021 144/78[bp true[ 07/05/2021 113/70 Hyperlipemia Assessment: c/w statin HELDER on CPAP Assessment: c/w CPAP CKD (chronic kidney disease) stage 4, GFR 15-29 ml/min ([facility]) Assessment: following nephrology Creatinine Date Value Ref Range Status 02/15/2025 2.82 (H) 0.73 - 1.22 mg/dL Final 01/21/2025 2.76 (H) 0.73 - 1.22 mg/dL Final 01/04/2025 3.04 (H) 0.73 - 1.22 mg/dL Final 12/30/2024 3.46 (H) 0.73 - 1.22 mg/dL Final Abnormal chest CT Assessment: following pulmonary, pending ?bronch, has pending referral for interventional pulmonaryfor consideration of bronch, but was decided he was too high risk and to tx with atb and repeat CT in March, to Dr. Lee for pulmonary optimization TE Dr. Lee 01/24/2025 I spoke with Jean Claude regarding recent consultation to interventional pulmonary regarding bronchoscopywith transbronchial biopsy. Patient is high risk and recommendations were for a course of antibiotics with repeat CT and potential intervention if infiltrates were persistent. After speaking with Jean Claude, he is deciding against any invasive intervention at this time. He is agreeable to a course of antibiotics with repeat CT of his chest. I will make arrangements for the CT and send in a prescription to [facility] for his antibiotic. DATE OF EXAM: Dec 30 2024 11:13AM [facility] 0541 - CT CHEST WO IVCON / IMPRESSION: New groundglass and consolidative opacities predominantly in bilateral lower lobes, left greater than right, which may reflect inflammatory/infectious process with differential including pulmonary hemorrhage. Other entities such as pulmonary amyloidosis and pulmonary alveolar proteinosis also possible in the appropriate clinical setting. MGUS (monoclonal gammopathy of unknown significance) Assessment: est with hem/onc Anemia Assessment: following hem/onc Hemoglobin (g/dL) Date Value 02/15/2025 10.9 06/01/2021 15.1 Hematocrit (%) Date Value 02/15/2025 35.4 06/01/2021 47.4 WBC (k/uL) Date Value 02/15/2025 5.20 06/01/2021 7.07 BPH with obstruction/lower urinary tract symptoms Assessment: controlled on rx ANESTHESIA FINDINGS: Intubation History: No history of difficult intubation Significant Anesthesia Considerations: none Airway History: No history of difficult airway To Activity Status Index: METS: Walk indoors, such as around the house (1.75 METs) Do light work around the house, such as dusting or washing dishes (2.70 METs) Take care of self; that is eating, dressing, bathing, using the toilet (2.75 METs) Walk a block or two on level ground (2.75 METs) DASI Score: 9.95 (With walker) Patient denies any chest pain or undue shortness of breath with the above physical activity. Clinical Frailty Scale: 4. Apparently vulnerable STOP-Bang Score: Snores loudly Often feels tired, fatigued, or sleepy during the daytime Has been observed to stop breathing or choking/gasping during sleep Has or is being treated for high blood pressure BMI greater than 35 kg/m^2 Patient over 50 years old Has a large neck Male patient STOP-Bang Score: 8 [id number] Score: Age: >=75 Sex: male CHF history: Yes Hypertension history: Yes Stroke/TIA/thromboembolism history: No Vascular disease history: Yes Diabetes history: Yes [id number] Score: 6 ARISCAT Score: Age: >80 Preoperative SpO2: 91-95% Respiratory infection in the last month: No Preoperative anemia: No Surgical incision: peripheral Duration of surgery: <2 hrs Emergency procedure: No ARISCAT Score: 24 I - PHYSICAL EVALUATION AIRWAY Patient intubated: No. Tracheostomy tube not present Mallampati: IV. TM distance: >3 FB. Neck ROM: limited flexion and extension. Mouth opening: adequate. Short neck: no. Thick neck: yes Ramos present: yes Lip Bite Test: I Microretrognathia/Micronagthia/Recessed Chin: No DENTAL Dental findings: teeth intact. Dentures, upper: complete. Dentures, lower: complete. II - ANESTHESIA PLAN Anesthetic Plan: other Beta [place] Monitoring Plan Post Procedure Analgesic Plan Prepared for Surgery: optimally prepared for surgery, pending [see comment]. [id number] TE to Dr. Lee for pulmonary optimization CONSULTS: The following consults have been initiated at this time: pulmonary. Planned Anesthetic: other anesthesia choice The Following Tests/Procedures Have Been Initiated: Orders Placed This Encounter >CBC + AUTO DIFF Standing Status: Future Number of Occurrences: 1 Expected Date: 02/15/2025 Expiration Date: 05/17/2025 >CMP Standing Status: Future Number of Occurrences: 1 Expected Date: 02/15/2025 Expiration Date: 05/17/2025 >HGB A1c (Today or soon) Standing Status: Future Number of Occurrences: 1 Expected Date: 02/15/2025 Expiration Date: 05/17/2025 NT Pro BNP Standing Status: Future Number of Occurrences: 1 Expected Date: 02/15/2025 Expiration Date: 05/17/2025 REASON FOR VISIT: Federico Hu is a 89 year old male who is scheduled for Procedure(s): PARATHYROIDECTOMY (N/A) at the request of DrWilfredo @[email or web address]@ for consultation. My final recommendation will be communicated back to the requesting physician by way of shared medical record or letter. Subjective The patient has the following: COVID-19 Immunization Status Upcoming Covid-19 Vaccine () Postponed until 11/05/2025 11/05/2024 Postponed until 11/05/2025 by Katherin Mckinnon APRN.HERBICIDE SPRAYER (Declined at this time) 10/13/2023 Postponed until 10/13/2024 by Katherin Amezcua APRN.HERBICIDE SPRAYER (Declined at this time) 01/03/2021 Imm Admin: COVID-19 original vaccine, full dose, monovalent (MODERNA) Only the first 3 history entries have been loaded, but more history exists. CHIEF COMPLAINT: Pre-op exam HPI: Federico Hu is a 89 year old seen for PAC due to scheduled above surgery because of hyperparathyroidism. 12/13/2024, Dr. Guevara Thank you for referring this patient to me. As you know, he is an 89 year old man who was found to have elevated calcium levels during a consult with his keno manager. Subsequently biochemical workupalso revealed an elevated PTH level. The diagnosis of primary hyperparathyroidism was made, and he was referred here for further evaluation. His hypercalcemia has been present since 2017 but it was worsened recently. Mr. Hu has multiple medical issues including afib on Eliquis, CHF, CKD, HELDER and hyperlipidemia.His last surgical history was over five years ago when he had knee replacement done. He did well with the spinal anesthesia. His medication list was reviewed today and he has allergy to Proscar and fexofenadine. He is currently taking Lasix at 40 mg daily. In terms of family history, there is no history of thyroid of parathyroid disease. He has had no personal history of head and neck radiation. He is not a smoker but used to smoke when he was younger.And he is and retired. He lives at home by himself but needs help with cooking and cleaning. In terms of symptoms related to hyperparathyroidism, he reports the following symptoms: musculoskeletal pain. REVIEW OF SYSTEMS: General: No weight loss, malaise or fevers. Neurological: No history of TIA's, stroke, DINING CHAIR SEAT CUSHION TRIMMER tumor, impaired sensorium, hemiplegia, paraplegia orquadraplegia. No neurological symptoms or problems. Respiratory: +former smoker Positive for: obstructive sleep apnea and CPAP/BiPAP compliant. Negative for: asthma, COPD, current cough, dyspnea, pneumonia within 6 weeks, tobacco use and URI < 2 weeks. Cardiovascular: Positive for: anticoagulation therapy, arrhythmia (RBBB), atrial fibrillation, CAD, CHF, DVT/PE, hyperlipidemia, hypertension, murmur/valvular heart disease, open heart surgery and PVD Patient's last office visit with commutator operator, [facility], The following tests and/or procedures were performed: cardiac stents. Negative for: abdominal aortic aneurysm, AICD/PPM, angina, recent ME, PTCA and valve surgery. GI: Positive for: dysphagia Negative for: abdominal pain, esophageal stricture, GERD, GI bleed <30 days, heartburn, hepatitis, irritable bowel syndrome, inflammatory bowel disease, liver disease, nausea, pancreatitis, vomiting and ETOH >2 drinks/day. : Positive for: BPH and renal failure. Patient's renal failure is chronic. Negative for: urinary tract infection. Endocrine: See HPI. Positive for: diabetes mellitus and diabetic neuropathy. Patient's diabetes mellitus is controlled by insulin and weekly injectable. Negative for: hypothyroidism. Hematology: Positive for: bruises/bleeds easily and chronic anti-coagulation/platelet meds. Patient is on anti-coagulation/platelet medication(s): Aspirin and DOAC. Negative for: anemia and transfusion of at least 4 units within 72 hours prior to surgery. Oncology: No history of CA metastasis, chemo within 30 days, or radiotherapy within 90 days. No history of oncological symptoms or problems. Psych: No history of psychiatric symptoms or problems. Musculoskeletal: Walker +hx bilateral TKA Positive for: back pain and swelling. Skin: +LE dermatitis PAST MEDICAL HISTORY Diagnosis Date Anal fissure 06/19/2006 Atrial fibrillation (HCC) 05/13/2016 Benign localized hyperplasia of prostate with urinary obstruction and other lower urinary tract symptoms (LUTS)(600.21) 11/30/2009 CAROTID ART OCCL-NO INFARCT 01/31/2009 Carotid US -: > 50% on the R, < 50% on the L Chronic diastolic CHF (congestive heart failure) ([facility]) 07/22/2018 CKD (chronic kidney disease) stage 4, GFR 15-29 ml/min ([facility]) 07/22/2018 CORONARY ATHEROSCLER UNSPEC VESSEL 01/03/2009 2 V CABG at age 71 ECG 12-26: RBBB per Manish ELEVATED PROSTATE SPECIFIC ANTIGEN 02/01/2009 PSA 4.2 in 01-23: repeat with free PSA and MARIO in follow up 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 Rothman for injections. HELDER on CPAP 09/19/2016 BiPAP 12-6 cm Nasal Primary osteoarthritis of left hip 11/02/2020 RBBB (right bundle branch block) 07/30/2016 S/P CABG x 2 07/30/2016 Skin mass 10/26/2010 Lipoma, left forehead SLEEP DISTURBANCE NOS 01/31/2009 03-09-09: effic 89%, AHI 3, low sat 86% (< 89% only 1.2 minutes), PLMI 7.5/hr Type II or unspecified type diabetes mellitus without mention of complication, uncontrolled 04/2003 Unspecified essential hypertension 09/2003 PAST SURGICAL HISTORY Procedure Laterality Date ARTHRP KNE CONDYLE&PLATU MEDIAL&LAT COMPARTMENTS Left 01/01/2008 Knee replacement, total, Left ARTHRP KNE CONDYLE&PLATU MEDIAL&LAT COMPARTMENTS Right 04/14/2018 CARDIAC CATH 02/26/2018 COLONOSCOPY FLX DX W/COLLJ SPEC WHEN PFRMD 08/01/06 Posterior anal fissure CORONARY ARTERY BYP W/VEIN & ARTERY GRAFT 2 VEIN 2006 CABG, two grafts PAST SURGICAL HISTORY OF 07/1979 anal fissure repair PROSTATE BIOPSY US Jul. RPR 1ST INGUN HRNA AGE 5 YRS/> REDUCIBLE 09/27/1992 Hernia repair, inguinal, left laparoscopic FAMILY HISTORY Problem Relation Age of Onset Coronary Artery Disease Father age 69 Diabetes Father Breast Cancer Mother age 75 Diabetes Mother GI Brother Social History Tobacco Use Smoking status: Former Current packs/day: 0.00 Average packs/day: 3.0 packs/day for 20.0 years (60.0 ttl pk-yrs) Types: Cigarettes Start date: 11/17/1954 Quit date: 11/17/1974 Years since quittin.2 Smokeless tobacco: Never Vaping Use Vaping status: Never Used Substance Use Topics Alcohol use: No Drug use: No Prior to Admission medications as of 02/15/25 1219 Medication Sig Last Dose Taking doxazosin (CARDURA) 2 mg tablet Take 1 tablet by mouth daily at bedtime. Yes Blood-Glucose Meter,Continuous (DEXCOM G7 REGIONAL AGRONOMIST) [facility] Dx: E11.49. Insulin: Yes. Use to check blood sugars at least 4 times a day Yes Blood-Glucose Sensor (DEXCOM G7 SENSOR) [facility] Dx: E11.49. Insulin: Yes. Apply new sensor every ten (10) days Yes CPAP/BIPAP/OTHER Type .CPAPSettings into a note to see current settings/supplies/DME information. Yes clotrimazole (LOTRIMIN) 1 % cream Apply 1 application to affected area two times a day. Yes semaglutide (OZEMPIC) 1 mg/dose (4 mg/3 mL) pen Inject 1 mg subcutaneously one time a week. Per medication program. Yes blood sugar diagnostic (TRUE METRIX GLUCOSE TEST STRIP) test strip Test twice daily. Dx: E11.49. Insulin: Yes. Yes furosemide (LASIX) 40 mg tablet Take one(1) tablet daily in the morning. Take one(1) tablet in the evening, every other day. Per Cardiology. Yes triamcinolone acetonide (KENALOG) 0.1 % cream Apply 1 application to affected area two times a day.Apply sparingly to top of ears Yes apixaban (ELIQUIS) 2.5 mg tab(s) Take 1 tablet by mouth twice daily. Per Cardiology. Yes sacubitril-valsartan (ENTRESTO) 97-103 mg tablet Take 1 tablet by mouth two times a day. Per Cardiology. Yes insulin degludec (TRESIBA FLEXTOUCH U-200) 200 unit/mL (3 mL) injection Inject 64 Units subcutaneously every morning. Pt Assistance Medication. Yes insulin aspart U-100 (NOVOLOG FLEXPEN U-100 INSULIN) 100 unit/mL (3 mL) Inject 8 Units subcutaneously daily with dinner. Patient assistance. (will switch from Humalog sample to Novolog when supply arrives) Yes atorvastatin (LIPITOR) 40 mg tablet Take 40 mg by mouth once daily. Yes insulin needles, DISPOSABLE, 31 gauge x 04/01 ndle Test blood sugar twice a day DX:E11.49 Yes nitroglycerin sublingual (NITROQUICK) 0.4 mg SL tablet Dissolve 1 tablet under the tongue as neededfor Chest Pain. If no pain relief call 911. Yes MULTIVITAMIN TAB Take one(1) tablet daily. Yes No medication comments found. ALLERGIES Allergen Reactions Fexofenadine Unknown Proscar [Finasterid* Rash Objective PHYSICAL EXAM: General: alert and oriented (x3), healthy appearance and morbidly obese. Pertinent negatives noted - not distressed. +antalgic gait. Skin: normal color, no rash or lesions. BLE dermatitis. HEENT: EOM intact and pupils equal round. Pertinent negatives noted - no carotid bruit. Cardiovascular: Pulse characterized as regular.Positive for murmur. Pertinent negatives noted - no rub and no gallop. Respiratory: normal breath sounds, no wheezes or crackles. No chest wall deformity or tenderness. Abdomen: soft. Pertinent negatives noted - not tender. Extremities: Positive for edema (BLE mild). Neurological: normal cognition and motor skills. Positive for abnormal gait. PAIN ASSESSMENT: VITALS: BP 116/72 Pulse 73 Resp 22 Ht 5' 11.5 (1.82m) Wt 342 lb 3.2 oz (155.2kg) SpO2 95% BMI 47.07 kg/(m^2). Diagnostic tests reviewed for today's visit: Lab Value Units Date High Low HB 10.9 g/dL 02/15/2025 17.0 13.0 HCT 35.4 % 02/15/2025 51.0 39.0 WBC 5.20 k/uL 02/15/2025 11.00 3.70 PLT 123 k/uL 02/15/2025 400 150 NA 144 mmol/L 02/15/2025 144 136 K 4.1 mmol/L 02/15/2025 5.1 3.7 GLUC 90 mg/dL 02/15/2025 99 74 BUN 57 mg/dL 02/15/2025 24 9 CREAT 2.82 mg/dL 02/15/2025 1.22 0.73 PTSEC No results within date range. INR No results within date range. APTT No results within date range. ALT 10 U/L 02/15/2025 54 10 AST 11 U/L 02/15/2025 40 14 TBILI 0.5 mg/dL 02/15/2025 1.3 0.2 TSH No results within date range. Lab Value Units Date High Low HCGQT No results within date range. UHCG No results within date range. HCG, BODY* No results within date range. Lab Value Units Date High Low ABORHD No results within date range. ABSCREEN No results within date range. Hemoglobin A1C (%) Date Value 02/15/2025 5.7 07/28/2024 6.4 02/22/2022 8.9 11/15/2021 9.3 06/01/2021 8.0 03/02/2021 11.6 11/27/2020 9.3 05/29/2020 8.9 Hemoglobin A1C (POCT) (%) Date Value 10/13/2023 6.7 05/09/2023 6.5 06/12/2022 6.9 Recent Results (from the past 8760 hours) ECG COMPLETE Collection Time: 02/15/25 9:21 AM Result Value Ventricular Rate 59 Atrial Rate 277 QRS Duration 150 QT Interval 458 QTC Calculation (Bazett) 453 Calculated R Haywood 90 Calculated T Haywood 13 Impression ATRIAL FIBRILLATION WITH SLOW VENTRICULAR RESPONSE WITH PREMATURE VENTRICULAR COMPLEXES COMPLETE RIGHT BUNDLE BRANCH BLOCK ABNORMAL ECG Confirmed by MD JUSTICE, QARAB ([id number]) on 02/16/2025 4:14:50 PM No results found for this or any previous visit (from the past 66576 hours). Instructions Given to Patient: Instructions located in the after visit summary. Patient given verbal and written preop instructions and voices comprehension and compliance. SIGNATURE: Jodie Bowers APRN.CNP PATIENT NAME: Federico Hu DATE: February 15, 2025 TIME: 9:14 AM PAGER/CONTACT #: documented in this encounterKing[facility] [place] Instructions* Patient Instructions* Jodie Bowers APRN.CNP - 02/15/2025 9:11 AM EDT Images from the original note were not included. [facility] PATIENT PREOPERATIVE INSTRUCTIONS No ref. provider found has scheduled you for your procedure at this surgery center: [facility]: [phone] -- [address] [place] [address]. Please read below carefully for your personalized instructions. Dietary Restrictions: - No solid food after midnight. - You may have 12 ounces of clear liquids (water, clear juices such as apple juice or gatorade, carbonated beverages, clear tea, black coffee, jello) until 2 hours before scheduled arrival at facility. Medications: Unless instructed differently below, stay on all of your medications until your surgery. If you start any new medications after today's visit, please contact your surgeon. Pre-Surgery Med Instructions Medication Instructions doxazosin (CARDURA) 2 mg tablet If you normally take this medication in the morning, take the morning of surgery. Blood-Glucose Meter,Continuous (DEXCOM G7 REGIONAL AGRONOMIST) misc Blood-Glucose Sensor (DEXCOM G7 SENSOR) laquita CPAP/BIPAP/OTHER clotrimazole (LOTRIMIN) 1 % cream Do not take the day of surgery semaglutide (OZEMPIC) 1 mg/dose (4 mg/3 mL) pen Hold 7 days before surgery. Last dose . blood sugar diagnostic (TRUE METRIX GLUCOSE TEST STRIP) test strip furosemide (LASIX) 40 mg tablet Do not take the day of surgery triamcinolone acetonide (KENALOG) 0.1 % cream Do not take the day of surgery apixaban (ELIQUIS) 2.5 mg tab(s) Hold 3 days before surgery. Last dose 03/07/2025. sacubitril-valsartan (ENTRESTO) 97-103 mg tablet If you normally take this medication in the morning, take the morning of surgery. insulin degludec (TRESIBA FLEXTOUCH U-200) 200 unit/mL (3 mL) injection Insulin: Do not take the morning of surgery. Take 75% of your usual dose the night before surgery if possible. If not possible,take full dose the night before surgery. insulin aspart U-100 (NOVOLOG FLEXPEN U-100 INSULIN) 100 unit/mL (3 mL) Do not take the day of surgery atorvastatin (LIPITOR) 40 mg tablet If you normally take this medication in the morning, take the morning of surgery. insulin needles, DISPOSABLE, 31 gauge x 04/01 ndle nitroglycerin sublingual (NITROQUICK) 0.4 mg SL tablet Continue as needed MULTIVITAMIN TAB Hold 7 days before surgery. Last dose 03/03/2025. If you take any medications for erectile dysfunction-Cialis (Tadalafil), Levitra, Staxyn (Vardenafil) Viagra (Sildenenafil please do not take these for 48 hours before surgery. If you start any new medications after today's visit, please contact the surgeon's office. If you are currently using a [id number] injectable or oral medication for diabetes or weight loss such as Dulaglutide (Trulicity), Exenatide (Byetta, Bydureon), Liraglutide (Victoza, Saxenda), Semaglutide (Ozempic, Wegovy, Rybelsus), or Tirzepatide (Mounjaro), the medicine should be stopped at least 7 days before surgery. These medicines can cause food to remain in your stomach for a very longtime and increase the risks from surgery and anesthesia. Not stopping the medication for a long enough time may result in your surgery being rescheduled. Blood Thinning Medications: - Stop NSAIDS (Ibuprofen, Advil, Aleve, Motrin, Celebrex, Mobic, etc.) 7 days before surgery, as directed by your surgeon. - Do NOT stop aspirin or other anticoagulants without consulting with your commutator operator or prescribing physician. - Stop ALL herbal and dietary supplements 7 days before surgery. - You may take Tylenol (Acetaminophen) or any of your pain medications that do not contain aspirin or NSAIDS as needed. Important Reminders: - Candy, mints, gum and tobacco products are NOT permitted the morning of surgery. - Hearing aids, dentures and glasses may be worn the morning of surgery. - NO jewelry, body piercings, makeup, hairpins or contacts are to be worn the day of surgery. If you develop symptoms such as a fever, cold, or flu, or have other changes to your health within TWO DAYS of scheduled surgery or the morning of surgery, please contact the surgery center above. Personal Belongings: -Please have photo ID and insurance cards. -If you do not have a copy of advance directives on file with us, please bring a copy with you on the day of surgery. - Leave ALL valuables and money at home or with family members. - Please bring high-quality footwear, such as sneakers, to the hospital for ambulating post-surgery. For Outpatient Procedures: - YOU MUST HAVE A RESPONSIBLE DESKTOP ANALYST TAKE YOU HOME. A RESOURCE ANALYST OR ONCOLOGY TRANSPLANT NETWORK MANAGER CANNOT BE MADE A RESPONSIBLE DESKTOP ANALYST. - We recommend that a responsible person stays with you overnight to take care of you. - You cannot stay in a hotel alone after outpatient surgery. You will not be permitted to have yoursurgery, if you do not have someone to take care of you. Arrival Time for Surgery: - The Surgery Center or hospital where you are having surgery will call the afternoon before surgery (or Friday for Friday surgery) with a scheduled arrival time. - If you have not heard by 4 pm, please contact the surgery center above. Please be aware that emergency situations arise, which may delay or change your surgical time. If this happens, we will notify you as soon as possible and regret any inconvenience. If you already have an Advance Directive, please fax a copy to [phone] or email to for it to be added to your chart. If you do not have an Advance Directive, you can find the appropriate form and more information at [email or web address]. We recommend that youcomplete the Advance Directive form found on the website and bring it with you the day of your surgery. It can be witnessed and scanned into your chart that day. Jodie Bowers APRN.CNP documented in this encounterKing'S [facility] [place]03-20-2025 NoteHNO ID: [id number] Author: CRISYT CAMARGO RN Service: ? Author Type: Registered Nurse Type: Progress Notes Filed: 02/15/2025 11:45 Note Text: RN Pre Visit Questionnaire for upcoming PACC appointment PROCEDURE : PARATHYROIDECTOMY SURGEON : Dr Kristin Guevara PROCEDURE DATE : 03/11/2025 PACC APPT : 02/15/2025 Prepared for surgery: Anticoagulant recommendations received: Yes Anticoagulant recommendations: Letter faxed to Dr. Gigi Strickland on 02/03/2025, waiting for reply. RN Pre Visit Questionnaire completed by [facility] chart review. Patient unavailable during this review, and left a detailed voicemail for patient to return call. Do you see a commutator operator, hand clerical verifier, compliance project manager or other specialist within or outside of [facility] [place]? SPECIALISTS: CARDIOLOGY: Patient Care Associate Dr. Harman Strickland, Last office visit 12/09/2024 CareEverywhere PULMONARY: Viet Lee MD TARAN: 01/21/2025 HEMATOLOGY: Homer Carpio CNP, Last office visit 12/13/2024 PRIMARY CARE PHYSICIAN: Nithin Acevedo MD TARAN: 11/26/2024 NEPHROLOGY: Christal Palomares APRN TARAN: 10/22/2024 Morbid Obesity: Weight: 152.9 kg (337 lb) / BMI: 46.35 DMT2 HTN CAD s/p CABG, 2006 RBBB AFib Hyperlipemia BPH Anemia OA CKD CHF HELDER on CPAP Are you on an anticoagulant PACC Anticoagulant: Yes Medication : Eliquis (Apixaban) CHADVASC = 6 Congestive Heart Failure / LV dysfunction (1) Hypertension (1) Age > or = 75 years (2) Diabetes Mellitus (1) Vascular disease (prior ME, PAD, or aortic plaque) (1) [id number] >4 - Letter sent to Dr. Gigi Strickland for pre op recommendations Stents: No Have you been provided instructions: Yes Letter sent : Yes Anticoagulation recommendations : Found in Scanned Docs on 02/15/2025 Provider : Dr Gigi Strickland Anticoagulation instructions : may hold Eliquis 2-3 days prior to surgery Implanted Devices: NONE Most recent EK02/24/2018 Most recent ECHO : 12/13/2024 Most recent STRESS TEST 03/04/2018 View Cardiac - EKG [ID [id number]] View External Cardiology - Echo [ID [id number] View External Cardiology - Stress Test [ID [id number]] Any new changes in your symptoms since you last saw your specialist? unable to reach patient by phone Are you a Pre Diabetic/Diabetic/Weight loss/CHF medications Prediabetes/DM Oral/ Injectable Medication Instructions - Semaglutide (Ozempic) (Wegovy)(Rybelsus) - please HOLD 7 DAYS PRIOR TO SURGERY. Patient injects on : unable to reach patient by phone Insulin Medication Instructions Novolog - Please take the following medications at your usual dose the day before surgery. Tresiba - take 75% of your usual dose the evening before surgery. If you take in the morning: Check fasting AM glucose, if 200 or greater, take half the prescribed dose. If under 200, do not take your morning dose Dialysis No Any recent hospitalizations within [facility] or outside facilities in the past 3 months unable to reach patient by phone Please have an up-to-date list of medications in preparation for your PACC visit. SIGNATURE: Cristy Camargo RN PATIENT NAME: Federico Hu DATE: February 03, 2025 TIME: 8:24 AM PAGER/CONTACT PHONE:[facility]03-20-2025 History of Present illness Narrative* Cristy Camargo RN - 02/03/2025 8:24 AM EDT RN Pre Visit Questionnaire for upcoming PACC appointment PROCEDURE : PARATHYROIDECTOMY SURGEON : Dr Kristin Guevara PROCEDURE DATE : 03/11/2025 PACC APPT : 02/15/2025 Prepared for surgery: Anticoagulant recommendations received: Yes Anticoagulant recommendations: Letter faxed to Dr. Gigi Strickland on 02/03/2025, waiting for reply. RN Pre Visit Questionnaire completed by [facility] chart review. Patient unavailable during this review, and left a detailed voicemail for patient to return call. Do you see a commutator operator, hand clerical verifier, compliance project manager or other specialist within or outside of [facility] [place]? SPECIALISTS: CARDIOLOGY: Patient Care Associate Dr. Harman Strickland, Last office visit 12/09/2024 CareEverywhere PULMONARY: Viet Lee MD TARAN: 01/21/2025 HEMATOLOGY: Homer Carpio CNP, Last office visit 12/13/2024 PRIMARY CARE PHYSICIAN: Nithin Acevedo MD TARAN: 11/26/2024 NEPHROLOGY: Christal Palomares APRN TARAN: 10/22/2024 Morbid Obesity: Weight: 152.9 kg (337 lb) / BMI: 46.35 DMT2 HTN CAD s/p CABG, 2006 RBBB AFib Hyperlipemia BPH Anemia OA CKD CHF HELDER on CPAP Are you on an anticoagulant PACC Anticoagulant: Yes Medication : Eliquis (Apixaban) CHADVASC = 6 Congestive Heart Failure / LV dysfunction (1) Hypertension (1) Age > or = 75 years (2) Diabetes Mellitus (1) Vascular disease (prior ME, PAD, or aortic plaque) (1) [id number] >4 - Letter sent to Dr. Gigi Strickland for pre op recommendations Stents: No Have you been provided instructions: Yes Letter sent : Yes Anticoagulation recommendations : Found in Scanned Docs on 02/15/2025 Provider : Dr Gigi Strickland Anticoagulation instructions : may hold Eliquis 2-3 days prior to surgery Implanted Devices: NONE Most recent EK02/24/2018 Most recent ECHO : 12/13/2024 Most recent STRESS TEST 03/04/2018 View Cardiac - EKG [ID [id number]] View External Cardiology - Echo [ID [id number] View External Cardiology - Stress Test [ID [id number]] Any new changes in your symptoms since you last saw your specialist? unable to reach patient by phone Are you a Pre Diabetic/Diabetic/Weight loss/CHF medications Prediabetes/DM Oral/ Injectable Medication Instructions - Semaglutide (Ozempic) (Wegovy)(Rybelsus) - please HOLD 7 DAYS PRIOR TO SURGERY. Patient injects on : unable to reach patient by phone Insulin Medication Instructions Novolog - Please take the following medications at your usual dose the day before surgery. Tresiba - take 75% of your usual dose the evening before surgery. If you take in the morning: Checkfasting AM glucose, if 200 or greater, take half the prescribed dose. If under 200, do not take your morning dose Dialysis No Any recent hospitalizations within [facility] or outside facilities in the past 3 months unable to reach patient by phone Please have an up-to-date list of medications in preparation for your PACC visit. SIGNATURE: Cristy Camargo RN PATIENT NAME: Federico Hu DATE: February 03, 2025 TIME: 8:24 AM PAGER/CONTACT PHONE: documented in this encounterKing'[facility] [place]03-10-[facility]25 Telephone encounter Note * Telephone Encounter - Viet Lee MD - 01/24/2025 4:03 PM EDT I spoke with Jean Claude regarding recent consultation to interventional pulmonary regarding bronchoscopywith transbronchial biopsy. Patient is high risk and recommendations were for a course of antibiotics with repeat CT and potential intervention if infiltrates were persistent. After speaking with Jean Claude, he is deciding against any invasive intervention at this time. He is agreeable to a course of antibiotics with repeat CT of his chest. I will make arrangements for the CT and send in a prescription to [facility] for his antibiotic. [facility] [place]03-10-2025 Miscellaneous Notes* Telephone Encounter - Viet Lee MD - 01/24/2025 4:03 PM EDT I spoke with Jean Claude regarding recent consultation to interventional pulmonary regarding bronchoscopywith transbronchial biopsy. Patient is high risk and recommendations were for a course of antibiotics with repeat CT and potential intervention if infiltrates were persistent. After speaking with Jean Claude, he is deciding against any invasive intervention at this time. He is agreeable to a course of antibiotics with repeat CT of his chest. I will make arrangements for the CT and send in a prescription to [facility] for his antibiotic. documented in this encounterKing'S [facility] [place]25 NoteHNO ID: [id number] Author: LINH GUSMAN MD Service: ? Author Type: Physician Type: Progress Notes Filed: 01/21/2025 11:58 Note Text: Dear Dr. Viet Lee, Thank you for this interesting e-consult. Agree patient has a few risk factors that is quite concerning. Since we do not have another interval imaging to prove the continued need to biopsy these infiltrate area, how do you feel about getting a follow up CT chest in 8 weeks from 12/30/24. If resolved, then I am not sure if bronchoscopy is indicated. But if still persist/ similar/ worsen, we can consider bronchoscopy. Please let me know. Feel free to review it if you feel it is necessary. Thank you again. Linh Krause MD 01/21/2025 11:56 [facility]03-07-2025 History of Present illness Narrative* Linh Gusman MD - 01/21/2025 11:[address] Viet Lee, Thank you for this interesting e-consult. Agree patient has a few risk factors that is quite concerning. Since we do not have another interval imaging to prove the continued need to biopsy these infiltrate area, how do you feel about gettinga follow up CT chest in 8 weeks from 12/30/24. If resolved, then I am not sure if bronchoscopy is indicated. But if still persist/ similar/ worsen, we can consider bronchoscopy. Please let me know. Feel free to review it if you feel it is necessary. Thank you again. Linh Krause MD 01/21/2025 11:56 AM documented in this encounterKing'S [facility] [place] History of Present illness Narrative* Viet Lee MD - 01/21/2025 11:00 AM EST Images from the original note were not included. . [facility] Note Patient name: Federico Hu PCP: Nithin Acevedo MD CC: abnormal chest CT HPI: Federico Hu 89 year old male former 60 pack year smoker, quitting in 1974 with PMH significant for morbid obesity (BMI 46), AF, DM, HTN, CAD s/p CABG, diastolic heart failure, HELDER on CPAP, CKD stage 4 last seen in 2020 for evaluation of chronic cough. PFTs did not show obstruction, only restriction consistent with his obesity. Chest CT showed old granulomatous disease and infiltrate in RLL consistent with PNA. He was treated with antibiotics. Recommended follow up chest CT but insurance denied coverage. Repeat CXR did not show any infiltrate. Recent history notable for new onset hypercalcemia and monoclonal protein/MGUS. He had a chest CT to rule out lung cancer in light of hypercalcemia which was pertinent for bilateral ground glass and consolidative infiltrates left greater than right consistent with infection, alveolar hemorrhage, alveolar proteinosis or possibly amyloidosis. He is pending parathyroidectomy. He has chronic cough occasionally productive of clear to yellow mucus. No hemoptysis. No wheezing, significant SOB,or chest pain. No fevers, chills. Sinus congestion with post nasal drip. Cough more prominent in morning. DATA: PFT: Moderate restriction Labs: Component Ref Range & Units 2 wk ago (01/04/25) Albumin 3.9 - 4.9 g/dL 3.8 Low Calcium, Total 8.5 - 10.2 mg/dL 13.4 High Phosphorus 2.7 - 4.8 mg/dL 3.5 Glucose 74 - 99 mg/dL 105 High BUN 9 - 24 mg/dL 49 High Creatinine 0.73 - 1.22 mg/dL 3.04 High Sodium 136 - 144 mmol/L 140 Potassium 3.7 - 5.1 mmol/L 4.1 Chloride 98 - 107 mmol/L 103 CO2 22 - 30 mmol/L 26 Anion Gap 8 - 15 mmol/L 11 Estimated Glomerular Filtration Rate >=60 mL/min/1.73m 19 Low Component Ref Range & Units 1 mo ago (12/13/24) WBC 3.70 - 11.00 k/uL 4.44 RBC 4.20 - 6.00 m/uL 4.34 Hemoglobin 13.0 - 17.0 g/dL 12.2 Low Hematocrit 39.0 - 51.0 % 39.4 MCV 80.0 - 100.0 fL 90.8 MCH 26.0 - 34.0 pg 28.1 MCHC 30.5 - 36.0 g/dL 31.0 RDW-CV 11.5 - 15.0 % 13.5 Platelet Count 150 - 400 k/uL 127 Low MPV 9.0 - 12.7 fL 12.0 Neutrophils % % 61.1 Abs Neut 1.45 - 7.50 k/uL 2.71 Lymphocytes % % 18.2 Abs Lymph 1.00 - 4.00 k/uL 0.81 Low Monocytes % % 14.4 Abs [place] <0.87 k/uL 0.64 Eosinophils % % 5.2 Abs Eosin <0.46 k/uL 0.23 Basophils % % 0.9 Abs Baso <0.11 k/uL 0.04 Immature Granulocytes % % 0.2 Abs Immature Gran <0.10 k/uL <0.03 NRBC /100 WBC 0.0 Absolute nRBC <0.01 k/uL <0.01 Diff Type Auto Component Ref Range & Units 1 mo ago NT Pro BNP <450 pg/mL 3,155 High Imaging / Diagnostic Studies: DATE OF EXAM: Dec 30 2024 11:13AM [facility] 0541 - CT CHEST WO IVCON / IMPRESSION: New groundglass and consolidative opacities predominantly in bilateral lower lobes, left greater than right, which may reflect inflammatory/infectious process with differential including pulmonary hemorrhage. Other entities such as pulmonary amyloidosis and pulmonary alveolar proteinosis also possible in the appropriate clinical setting. Several cysts and bilateral ground glass and consolidative changes PAST MEDICAL HISTORY Diagnosis Date Anal fissure 06/19/2006 Atrial fibrillation (HCC) 05/13/2016 Benign localized hyperplasia of prostate with urinary obstruction and other lower urinary tract symptoms (LUTS)(600.21) 11/30/2009 CAROTID ART OCCL-NO INFARCT 01/31/2009 Carotid US 1-09: > 50% on the R, < 50% on the L Chronic diastolic CHF (congestive heart failure) ([facility]) 07/22/2018 CKD (chronic kidney disease) stage 4, GFR 15-29 ml/min ([facility]) 07/22/2018 CORONARY ATHEROSCLER UNSPEC VESSEL 01/03/2009 2 V CABG at age 71 ECG 2-09: RBBB per Manish ELEVATED PROSTATE SPECIFIC ANTIGEN 02/01/2009 PSA 4.2 in 3-09: repeat with free PSA and MARIO in follow up Glycosuria 04/2003 HYPERLIPIDEMIA NEC/NOS 01/03/2009 LDL 47, HDL 40, TG 93 in - Hypertrophy of prostate with urinary obstruction and other lower urinary tract symptoms (LUTS) 08/08/2010 Morbid obesity (HCC) 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 Rothman for injections. HELDER on CPAP 09/19/2016 BiPAP 12-6 cm Nasal Primary osteoarthritis of left hip 11/02/2020 RBBB (right bundle branch block) 07/30/2016 S/P CABG x 2 07/30/2016 Skin mass 10/26/2010 Lipoma, left forehead SLEEP DISTURBANCE NOS 01/31/2009 03-09-09: effic 89%, AHI 3, low sat 86% (< 89% only 1.2 minutes), PLMI 7.5/hr Type II or unspecified type diabetes mellitus without mention of complication, uncontrolled 04/2003 Unspecified essential hypertension 09/2003 ALLERGIES Allergen Reactions Fexofenadine Unknown Proscar [Finasterid* Rash doxazosin (CARDURA) 2 mg tablet Take 1 tablet by mouth daily at bedtime. semaglutide (OZEMPIC) 1 mg/dose (4 mg/3 mL) pen Inject 1 mg subcutaneously one time a week. Per medication program. furosemide (LASIX) 40 mg tablet Take one(1) tablet daily in the morning. Take one(1) tablet in the evening, every other day. Per Cardiology. apixaban (ELIQUIS) 2.5 mg tab(s) Take 1 tablet by mouth twice daily. Per Cardiology. sacubitril-valsartan (ENTRESTO) 97-103 mg tablet Take 1 tablet by mouth two times a day. Per Cardiology. insulin degludec (TRESIBA FLEXTOUCH U-200) 200 unit/mL (3 mL) injection Inject 64 Units subcutaneously every morning. Pt Assistance Medication. insulin aspart U-100 (NOVOLOG FLEXPEN U-100 INSULIN) 100 unit/mL (3 mL) Inject 8 Units subcutaneously daily with dinner. Patient assistance. (will switch from Humalog sample to Novolog when supply arrives) atorvastatin (LIPITOR) 40 mg tablet Take 40 mg by mouth once daily. MULTIVITAMIN TAB Take one(1) tablet daily. Blood-Glucose Meter,Continuous (DEXCOM G7 REGIONAL AGRONOMIST) [facility] Dx: E11.49. Insulin: Yes. Use to check blood sugars at least 4 times a day Blood-Glucose Sensor (DEXCOM G7 SENSOR) [place] Dx: E11.49. Insulin: Yes. Apply new sensor every ten (10) days CPAP/BIPAP/OTHER Type .CPAPSettings into a note to see current settings/supplies/DME information. clotrimazole (LOTRIMIN) 1 % cream Apply 1 application to affected area two times a day. blood sugar diagnostic (TRUE METRIX GLUCOSE TEST STRIP) test strip Test twice daily. Dx: E11.49. Insulin: Yes. triamcinolone acetonide (KENALOG) 0.1 % cream Apply 1 application to affected area two times a day.Apply sparingly to top of ears insulin needles, DISPOSABLE, 31 gauge x 5/16 ndle Test blood sugar twice a day DX:E11.49 nitroglycerin sublingual (NITROQUICK) 0.4 mg SL tablet Dissolve 1 tablet under the tongue as neededfor Chest Pain. If no pain relief call 911. Social History Tobacco Use Smoking status: Former Current packs/day: 0.00 Average packs/day: 3.0 packs/day for 20.0 years (60.0 ttl pk-yrs) Types: Cigarettes Start date: [birth year]/17/1953 Quit date: 11/17/1974 Years since quittin.2 Smokeless tobacco: Never Substance Use Topics Alcohol use: No Drug use: No FAMILY HISTORY Problem Relation Age of Onset Coronary Artery Disease Father age 69 Diabetes Father Breast Cancer Mother age 75 Diabetes Mother GI Brother PAST SURGICAL HISTORY Procedure Laterality Date ARTHRP KNE CONDYLE&PLATU MEDIAL&LAT COMPARTMENTS Left 01/01/2008 Knee replacement, total, Left ARTHRP KNE CONDYLE&PLATU MEDIAL&LAT COMPARTMENTS Right 04/14/2018 CARDIAC CATH 02/26/2018 COLONOSCOPY FLX DX W/COLLJ SPEC WHEN PFRMD 08/01/06 Posterior anal fissure CORONARY ARTERY BYP W/VEIN & ARTERY GRAFT 2 VEIN 2006 CABG, two grafts PAST SURGICAL HISTORY OF 07/1979 anal fissure repair PROSTATE BIOPSY RPR 1ST INGUN HRNA AGE 6 YRS/> REDUCIBLE 09/27/1992 Hernia repair, inguinal, left laparoscopic PMH, Social history, family history and surgical history reviewed and updated in EMR REVIEW OF SYSTEMS: CONSTITUTIONAL: No fevers, chills, nightsweats, unintended weight loss HEENT: Positive nasal congestion/sinus symptoms, PND EYES: No visual changes CARDIOVASCULAR: No chest pain, dyspnea, palpitations. Edema PULM: See HPI GI: No dysphagia/odynophagia, GERD : Worsening renal function NEURO: Limited mobility, neuropathy INTEGUMENTARY: Dry skin, no easy bruising PHYSICAL EXAMINATION: BP 130/66 Pulse 52 Resp 17 Ht 5' 11.5 (1.82m) Wt 337 lb (152.9kg) SpO2 96% BMI 46.35 kg/(m^2). General Appearance: Morbidly obese elderly male in wheelchair. Skin: Dry skin, no ecchymoses Head: Normocephalic, no masses, lesions, tenderness or abnormalities. Ears: Psoriasis. Oropharynx: No oral lesions, Mallampati 4. Neck: No masses or adenopathy. Lungs: Not labored, normal to percussion, no wheezes or crackles. Heart: Bradycardia, irregular rhythm, no murmur. Extremities: Edema with chronic stasis dermatitis, no clubbing. Assessment/Plan: 1. Abnormal CT of the chest -No infectious symptoms and current mucus production seems to be more related to postnasal drip -Ideally would recommend bronchoscopy with possible biopsy but patient high risk. Referral to interventional pulmonary for consideration of bronchoscopy 2. Current use of long-term anticoagulation -Would need to hold anticoagulation for invasive procedure 3. Morbid obesity -BMI 46 -Weight loss advised 4. Stage 4 CKD -Worsening renal function may be due to in part to hypercalcemia. Pending parathyroidectomy 5. MGUS -Established with hematology oncology I spent a total of 57 minutes on the date of the service which included preparing to see the patient, [id number] patient care, completing clinical documentation, obtaining and/or reviewing separately obtained history, performing a medically appropriate examination, counseling and educating the pat ient/family/caregiver, ordering medications, tests, or procedures, communicating with other HCPs (not separately reported), and independently interpreting results (not separately reported). Viet Lee MD [facility] documented in this encounterKing'[facility] [place] NoteHNO ID: [id number] Author: VIET LEE MD Service: ? Author Type: Physician Type: Progress Notes Filed: 01/21/2025 13:26 Note Text: . [facility] Note Patient name: Federico Hu PCP: Nithin Acevedo MD CC: abnormal chest CT HPI: Federico Hu 89 year old male former 60 pack year smoker, quitting in 1974 with PMH significant for morbid obesity (BMI 46), AF, DM, HTN, CAD s/p CABG, diastolic heart failure, HELDER on CPAP, CKD stage 4 last seen in 2020 for evaluation of chronic cough. PFTs did not show obstruction, only restriction consistent with his obesity. Chest CT showed old granulomatous disease and infiltrate in RLL consistent with PNA. He was treated with antibiotics. Recommended follow up chest CT but insurance denied coverage. Repeat CXR did not show any infiltrate. Recent history notable for new onset hypercalcemia and monoclonal protein/MGUS. He had a chest CT to rule out lung cancer in light of hypercalcemia which was pertinent for bilateral ground glass and consolidative infiltrates left greater than right consistent with infection, alveolar hemorrhage, alveolar proteinosis or possibly amyloidosis. He is pending parathyroidectomy. He has chronic cough occasionally productive of clear to yellow mucus. No hemoptysis. No wheezing, significant SOB,or chest pain. No fevers, chills. Sinus congestion with post nasal drip. Cough more prominent in morning. DATA: PFT: Moderate restriction Labs: Component Ref Range AND Units 2 wk ago (01/04/25) Albumin 3.9 - 4.9 g/dL 3.8 Low Calcium, Total 8.5 - 10.2 mg/dL 13.4 High Phosphorus 2.7 - 4.8 mg/dL 3.5 Glucose 74 - 99 mg/dL 105 High BUN 9 - 24 mg/dL 49 High Creatinine 0.73 - 1.22 mg/dL 3.04 High Sodium 136 - 144 mmol/L 140 Potassium 3.7 - 5.1 mmol/L 4.1 Chloride 98 - 107 mmol/L 103 CO2 22 - 30 mmol/L 26 Anion Gap 8 - 15 mmol/L 11 Estimated Glomerular Filtration Rate >=60 mL/min/1.73m? 19 Low Component Ref Range AND Units 1 mo ago (12/13/24) WBC 3.70 - 11.00 k/uL 4.44 RBC 4.20 - 6.00 m/uL 4.34 Hemoglobin 13.0 - 17.0 g/dL 12.2 Low Hematocrit 39.0 - 51.0 % 39.4 MCV 80.0 - 100.0 fL 90.8 MCH 26.0 - 34.0 pg 28.1 MCHC 30.5 - 36.0 g/dL 31.0 RDW-CV 11.5 - 15.0 % 13.5 Platelet Count 150 - 400 k/uL 127 Low MPV 9.0 - 12.7 fL 12.0 Neutrophils % % 61.1 Abs Neut 1.45 - 7.50 k/uL 2.71 Lymphocytes % % 18.2 Abs Lymph 1.00 - 4.00 k/uL 0.81 Low Monocytes % % 14.4 Abs [place] <0.87 k/uL 0.64 Eosinophils % % 5.2 Abs Eosin <0.46 k/uL 0.23 Basophils % % 0.9 Abs Baso <0.11 k/uL 0.04 Immature Granulocytes % % 0.2 Abs Immature Gran <0.10 k/uL <0.03 NRBC /100 WBC 0.0 Absolute nRBC <0.01 k/uL <0.01 Diff Type Auto Component Ref Range AND Units 1 mo ago NT Pro BNP <450 pg/mL 3,155 High Imaging / Diagnostic Studies: DATE OF EXAM: Dec 30 2024 11:13AM [facility] 0541 - CT CHEST WO IVCON / IMPRESSION: New groundglass and consolidative opacities predominantly in bilateral lower lobes, left greater than right, which may reflect inflammatory/infectious process with differential including pulmonary hemorrhage. Other entities such as pulmonary amyloidosis and pulmonary alveolar proteinosis also possible in the appropriate clinical setting. Several cysts and bilateral ground glass and consolidative changes PAST MEDICAL HISTORY Diagnosis Date Anal fissure 06/19/2006 Atrial fibrillation ([facility]) 05/13/2016 Benign localized hyperplasia of prostate with urinary obstruction and other lower urinary tract symptoms (LUTS)(600.21) 11/30/2009 CAROTID ART OCCL-NO INFARCT 01/31/2009 Carotid US 1-09: > 50% on the R, < 50% on the L Chronic diastolic CHF (congestive heart failure) ([facility]) 07/22/2018 CKD (chronic kidney disease) stage 4, GFR 15-29 ml/min ([facility]) 07/22/2018 CORONARY ATHEROSCLER UNSPEC VESSEL 01/03/2009 2 V CABG at age 71 ECG 2-09: RBBB per Man[facility] ELEVATED PROSTATE SPECIFIC ANTIGEN 02/01/2009 PSA 4.2 in 3-09: repeat with free PSA and MARIO in follow up 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 Rothman for injections. HELDER on CPAP 09/19/2016 BiPAP 12-6 cm Nasal Primary osteoarthritis of left hip 11/02/2020 RBBB (right bundle branch block) 07/30/2016 S/P CABG x 2 07/30/2016 Skin mass 10/26/2010 Lipoma, left forehead SLEEP DISTURBANCE NOS 01/31/2009 03-09-09: effic 89%, AHI 3, low sat 86% (< 89% only 1.2 minutes), PLMI 7.5/hr Type II or unspecified type diabetes mellitus without mention of complication, uncontrolled 04/2003 Unspecified essential hypertension 09/2003 ALLERGIES Allergen Reactions (more content not included)...[facility]03-07-2025 NoteHNO ID: [id number] Author: LILI NEWMAN RPFT Service: ? Author Type: Respiratory Therapist Type: Progress Notes Filed: 01/21/2025 10:56 Note Text: PULM FUNCTION: Provider: Viet Lee MD Assisting Tech: Lili Newman RPFT [facility] History of Present illness Narrative* Lili Newman RPFT - 01/21/2025 10:41 AM EST PULM FUNCTION: Provider: Viet Lee MD Assisting Tech: Lili Newman RPFT Spirometry: 1 documented in this encounterKing'S [facility] [place] Telephone encounter Note * Telephone Encounter - Christal Lau RN - 01/10/2025 1:31 PM EST Phoned and spoke to Mr. Hu. Dr. Guevara would like him to hydrate to help to lower his calcium levels. Pt states he drinks a lot of fluids but the fluid is Pepsi. I asked him to please add some waterinto his drinking. He will try.Christal Lau RN [facility] [place]02-24-2025 Miscellaneous Notes* Telephone Encounter - Christal Lau RN - 01/10/2025 1:31 PM EST Phoned and spoke to Mr. Hu. Dr. Guevara would like him to hydrate to help to lower his calcium levels. Pt states he drinks a lot of fluids but the fluid is Pepsi. I asked him to please add some waterinto his drinking. He will try.Christal Lau RN documented in this encounterKing'S [facility] [place]02-[facility]-2025 Telephone encounter Note * Telephone Encounter - Jazlyn Carmen - 01/07/2025 9:07 AM EST Hello, patient is requesting a call back to discuss and set up a surgery date. Thank you. [facility] [place]02-21-2025 Miscellaneous Notes* Telephone Encounter - Jazlyn Carmen - 01/07/2025 9:07 AM EST Hello, patient is requesting a call back to discuss and set up a surgery date. Thank you. documented in this encounterKing'S [facility] [place]-2025 Telephone encounter Note * Telephone Encounter - Christal Lau RN - 01/05/2025 10:02 AM EST Phoned pt and spoke with him. Dr Guevara reviewed the results of his nuclear medicine sestamibi scan and it was negative. Dr. Guevara would still like Mr. Hu to consider surgery. Pt will talk to his family and get back to us. Christal Lau RN [facility] [place]02-19-2025 Miscellaneous Notes* Telephone Encounter - Christal Lau RN - 01/05/2025 10:02 AM EST Phoned pt and spoke with him. Dr Guevara reviewed the results of his nuclear medicine sestamibi scan and it was negative. Dr. Guevara would still like Mr. Hu to consider surgery. Pt will talk to his family and get back to us. Christal Lau RN documented in this encounterKing'S [facility] [place] History of Present illness Narrative* Jeffy Yancey, RT(R) - 01/04/2025 10:30 AM EST RADIOLOGY SERVICE PROGRESS NOTE SERVICE DATE: 01/04/2025 SERVICE TIME: 11:06 AM PATIENT IDENTITY VERIFICATION COMPLETED USING TWO (2) STANDARD IDENTIFIERS: Name and Date of confirmed by patient verbally FALL SCREENING: Has the patient had 2 falls in the last year or 1 fall with injury or currently using an Ambulatory Assistive Device (Walker, Cane, Wheelchair, Crutches, etc.)? Yes, Patient High Riskfor Falls What interventions were put in place to prevent falls during this visit? [place] Risk Wristband Applied PATIENT GENDER DATA: .male ALLERGIES: Reviewed and unchanged MEDICATIONS REVIEWED: Yes PATIENT RELEVANT IMPLANT DATA REVIEWED: Not Applicable PATIENT PRESENTS WITH AN IMPLANTABLE OR ATTACHED SENIOR QUALITY METHODS SPECIALIST: Yes Dexcom CREATININE: Creatinine Date Value Ref Range Status 12/30/2024 3.46 (H) 0.73 - 1.22 mg/dL Final 12/13/2024 3.21 (H) 0.73 - 1.22 mg/dL Final 11/05/2024 3.19 (H) 0.73 - 1.22 mg/dL Final Estimated Glomerular Filtration Rate Date Value Ref Range Status 12/30/2024 16 (L) >=60 mL/min/1.73m Final Comment: Estimated Glomerular Filtration Rate (eGFR) is calculated using the 2020 CKD-EPI creatinine equation. This equation utilizes serum creatinine, sex, and age as parameters. The creatinine assay has traceable calibration to isotope dilution- mass spectrometry. Refer to KDIGO guidelines for clinical interpretation. In patients with unstable renal function, e.g. those with acute kidney injury, the eGFRmay not accurately reflect actual GFR. eGFR- Date Value Ref Range Status 11/15/2021 46 Final P.O.C.T. RESULTS: N/A January 04, [address] PERFORMED: No IV SITE: Ambulatory: A peripheral IV was started in the Left antecubital site with a Angio cath: 22gauge. POST EXAM PIV STATUS: Discontinued PROCEDURE TYPE: NM Parathyroid: 320 microcurries of Nal 123 capsules was administered orally at 1100. 30.1 mCi of Tc99m Sestamibi was injected IV at 2:15PM. PATIENT DISCHARGED TO: Ambulatory patient, left NM department area. Is this a therapy: No A Diagnostic radioactive procedure has taken place, with no further precautions necessary other than routine body substance precautions. More information regarding radiation safety can be found usingthis link: [email or web address] SIGNATURE: RICHARD Miller) PATIENT NAME: Federico Hu DATE: January 04, 2025 TIME: 11:06 AM PAGER/CONTACT #: documented in this encounterKing'S [facility] [place]02-18-2025 NoteHNO ID: [id number] Author: JEFFY YANCEY RT (R) Service: Nuclear Medicine Author Type: Technologist Type: Progress Notes Filed: 01/04/2025 14:28 Note Text: RADIOLOGY SERVICE PROGRESS NOTE SERVICE DATE: 01/04/2025 SERVICE TIME: 11:06 AM PATIENT IDENTITY VERIFICATION COMPLETED USING TWO (2) STANDARD IDENTIFIERS: Name and Date of confirmed by patient verbally FALL SCREENING: Has the patient had 2 falls in the last year or 1 fall with injury or currently using an Ambulatory Assistive Device (Walker, Cane, Wheelchair, Crutches, etc.)? Yes, Patient High Risk for Falls What interventions were put in place to prevent falls during this visit? [place] Risk Wristband Applied PATIENT GENDER DATA: .male ALLERGIES: Reviewed and unchanged MEDICATIONS REVIEWED: Yes PATIENT RELEVANT IMPLANT DATA REVIEWED: Not Applicable PATIENT PRESENTS WITH AN IMPLANTABLE OR ATTACHED SENIOR QUALITY METHODS SPECIALIST: Yes Dexcom CREATININE: Creatinine Date Value Ref Range Status 12/30/2024 3.46 (H) 0.73 - 1.22 mg/dL Final 12/13/2024 3.21 (H) 0.73 - 1.22 mg/dL Final 11/05/2024 3.19 (H) 0.73 - 1.22 mg/dL Final Estimated Glomerular Filtration Rate Date Value Ref Range Status 12/30/2024 16 (L) >=60 mL/min/1.73m? Final Comment: Estimated Glomerular Filtration Rate (eGFR) is calculated using the 2020 CKD-EPI creatinine equation. This equation utilizes serum creatinine, sex, and age as parameters. The creatinine assay has traceable calibration to isotope dilution-mass spectrometry. Refer to KDIGO guidelines for clinical interpretation. In patients with unstable renal function, e.g. those with acute kidney injury, the eGFR may not accurately reflect actual GFR. eGFR- Date Value Ref Range Status 11/15/2021 46 Final P.O.C.T. RESULTS: N/A January 04, [address] PERFORMED: No IV SITE: Ambulatory: A peripheral IV was started in the Left antecubital site with a Angio cath: 22 gauge. POST EXAM PIV STATUS: Discontinued PROCEDURE TYPE: NM Parathyroid: 320 microcurries of Nal 123 capsules was administered orally at 1100. 30.1 mCi of Tc99m Sestamibi was injected IV at 2:15PM. PATIENT DISCHARGED TO: Ambulatory patient, left [place] department area. Is this a therapy: No A Diagnostic radioactive procedure has taken place, with no further precautions necessary other than routine body substance precautions. More information regarding radiation safety can be found using this link: [email or web address] SIGNATURE: RT Angela(R) PATIENT NAME: Federico Hu DATE: January 04, 2025 TIME: 11:06 AM PAGER/CONTACT #:[facility]02-17-2025 Telephone encounter Note* Telephone Encounter - Daxa Morin LPN - 01/03/2025 4:40 PM EST Patient notified of below recommendation, transferred call to schedule. Daxa Morin LPN [facility]02-17-2025 Miscellaneous Notes* Telephone Encounter - Daxa Morin LPN - 01/03/2025 4:40 PM EST Patient notified of below recommendation, transferred call to schedule. Daxa Morin LPN * Telephone Encounter - Daxa Morin LPN - 01/03/2025 4:35 PM EST ----- Message from Nithin Acevedo MD sent at 01/03/2025 4:03 PM EST ----- Refer to pulmonary. Abnormal CT scan. Dyspnea. Cough. * Telephone Encounter - Nithin Acevedo MD - 01/03/2025 4:03 PM EST ASSESSMENT/PLAN: 1. Abnormal CT scan, chest - ICD9: 793.2, ICD10: R93.89 (primary diagnosis) - CONSULT TO PULMONARY MEDICINE 2. Chronic cough - ICD9: 786.2, ICD10: R05.3 - CONSULT TO PULMONARY MEDICINE 3. Dyspnea, unspecified type - ICD9: 786.09, ICD10: R06.00 - CONSULT TO PULMONARY MEDICINE Nithin Acevedo MD documented in this encounterKing[facility] [place] Telephone encounter Note * Telephone Encounter - Daxa Morin LPN - 01/03/2025 4:35 PM EST ----- Message from Nithin Acevedo MD sent at 01/03/2025 4:03 PM EST ----- Refer to pulmonary. Abnormal CT scan. Dyspnea. Cough. [facility]02-17-2025 Telephone encounter Note* Telephone Encounter - Nithin Acevedo MD - 01/03/2025 4:03 PM EST ASSESSMENT/PLAN: 1. Abnormal CT scan, chest - ICD9: 793.2, ICD10: R93.89 (primary diagnosis) - CONSULT TO PULMONARY MEDICINE 2. Chronic cough - ICD9: 786.2, ICD10: R05.3 - CONSULT TO PULMONARY MEDICINE 3. Dyspnea, unspecified type - ICD9: 786.09, ICD10: R06.00 - CONSULT TO PULMONARY MEDICINE Nithin Acevedo MD [facility] [place]02-13-2025 History of Present illness Narrative* Ludwin Lomax RT(R) - 12/30/2024 11:40 AM EST Radiology Service Progress Note PATIENT NAME: Federico Hu DATE OF SERVICE: December 30, 2024 TIME: 12:47 PM PATIENT IDENTITY VERIFICATION COMPLETED USING TWO (2) IDENTIFIERS: Name and Date of confirmedby patient verbally. FALL SCREENING: Has the patient had 2 falls in the last year or 1 fall with injury or currently using an Ambulatory Assistive Device (Walker, Cane, Wheelchair, Crutches, etc.)? No PATIENT GENDER DATA: Assigned male at PATIENT RELEVANT IMPLANT DATA REVIEWED: Not Applicable PATIENT PRESENTS WITH AN IMPLANTABLE OR ATTACHED SENIOR QUALITY METHODS SPECIALIST: No RADIOLOGY DEPARTMENT: CT; Exam(s) Completed: Chest PERIPHERAL IV DATA: Not applicable SIGNED BY: RT Ab(Kenny) December 30, 2024 12:47 PM documented in this encounterKing'S [facility] [place]-13-2025 NoteHNO ID: [id number] Author: LUDWIN LOMAX RT(R) Service: ? Author Type: Direct Marketing Coordinator Type: Progress Notes Filed: 12/30/2024 12:47 Note Text: Radiology Service Progress Note PATIENT NAME: Federico Hu DATE OF SERVICE: December 30, 2024 TIME: 12:47 PM PATIENT IDENTITY VERIFICATION COMPLETED USING TWO (2) IDENTIFIERS: Name and Date of confirmed by patient verbally. FALL SCREENING: Has the patient had 2 falls in the last year or 1 fall with injury or currently using an Ambulatory Assistive Device (Walker, Cane, Wheelchair, Crutches, etc.)? No PATIENT GENDER DATA: Assigned male at PATIENT RELEVANT IMPLANT DATA REVIEWED: Not Applicable PATIENT PRESENTS WITH AN IMPLANTABLE OR ATTACHED SENIOR QUALITY METHODS SPECIALIST: No RADIOLOGY DEPARTMENT: CT; Exam(s) Completed: Chest PERIPHERAL IV DATA: Not applicable SIGNED BY: RT Ab(R) December 30, 2024 12:47 [facility]01-30-2025 NoteHNO ID: [id number] Author: CHRISTAL PALOMARES APRN.CNP Service: ? Author Type: Nurse Practitioner Type: Progress Notes Filed: 12/16/2024 16:05 Note Text: ABSTRACT Renal function continues to decrease and serum calcium increasing. Decision made to stop SGLT2i; Will recheck labs in 2 weeks. Plan of care discussed with Dr. Richter. Christal Palomares APRN.CNPChillicothe Va [facility] Center01-30-2025 History of Present illness Narrative* Christal Palomares APRN.CNP - 12/16/2024 3:58 PM EST ABSTRACT Renal function continues to decrease and serum calcium increasing. Decision made to stop SGLT2i; Will recheck labs in 2 weeks. Plan of care discussed with Dr. Richter. Christal Palomares APRN.CNP documented in this encounterKing'S [facility] [place]01-27-2025 NoteHNO ID: [id number] Author: HOMER CARPIO APRN.RAJWINDER, PhD Service: ? Author Type: Nurse Practitioner Type: Progress Notes Filed: 12/22/2024 09:55 Note Text: [facility] Federico Hu is a 89 year old male patient. Reason for visit: Consult, referred by Dr. Acevedo for possible mgus. My recommendations to the consult requesting physician are communicated via the shared electronic medical record or US mail. Baseline assessment on initial diagnosis date 11/2024 IMWG criteria, [place] Journal of Haematology 121: 749-57, 2003, update in: Herbie et al. 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 M-Protein Concentration <=0.00 g/dL 0.00 0.00 SPE Staff Review Reviewed by Mauro Soria MD, Ph.D ([id number]) Reviewed by Mauro Soria MD, Ph.D ([id number]) Resulting Agency [facility] CCM Narrative Performed by: [facility] Serum electrophoresis test was performed using the UKDN Waterflow V8 NEXUS capillary electrophoresis method. Results obtained with different assay methods or kits cannot be used interchangeably. Specimen Collected: 12/13/24 3:21 PM EST Last Resulted: 12/15/24 8:40 AM EST [place] Free, Serum 3.3 - 19.4 mg/L 74.1 High 72.8 High CM Comment: Rarely, increased serum free light chains levels may not be detected or accurately quantified due to prozone phenomenon or in high viscosity samples using this immunoturbidimetric assay. Correlation with other laboratory results and clinical findings is recommended. The [place] Free Light Chain was performed using the Binding Site Optilite immunoturbidimetric method. Result obtained with different assay methods or kits cannot be used interchangeably. Lambda Free, Serum 5.7 - 26.3 mg/L 55.7 High 52.1 High CM Comment: Rarely, increased serum free light chains levels may not be detected or accurately quantified due to prozone phenomenon or in high viscosity samples using this immunoturbidimetric assay. Correlation with other laboratory results and clinical findings is recommended. The Lambda Free Light Chain was performed using the Binding Site Optilite immunoturbidimetric method. Result obtained with different assay methods or kits cannot be used interchangeably. K/L Ratio, Serum 0.26 - 1.65 1.33 1.40 Total immunoglobulins at diagnosis: Component Ref Range AND Units 7 d ago 3 mo ago IgG 700 - 1,600 mg/dL 757 707 IgA 70 - 400 mg/dL 159 154 IgM 40 - 230 mg/dL 125 114 Bone marrow plasma cell infiltration: not performed Systemic treatment and disease course History of present illness Mr. Hu is a very pleasant 89 year old who presents today for evaluation of abnormal light chains, worsening CKD and persistent hypercalcemia w/ normal PTH. PMH of afib, HFpEF, CAD s/p CABG 2008, DM2, HTN, OA, HELDER on CPAP, HPL, Review of systems He specifically denies any fevers chills or night sweats. He has not noticed any increased shortness of breath on exertion from his baseline. He has been without new back or bone pain. He does not have any significant respiratory symptoms except for shortness of breath and a mild chronic cough. He is undergoing evaluation for hyperparathyroidism and associated hypercalcemia with endocrinology PAST MEDICAL HISTORY Diagnosis Date Anal fissure 06/19/2006 Atrial fibrillation (HCC) 05/13/2016 Benign localized hyperplasia of prostate with urinary obstruction and other lower urinary tract symptoms (LUTS)(600.21) 11/30/2009 CAROTID ART OCCL-NO INFARCT 01/31/2009 Carotid US 1-09: > 50% on the R, < 50% on the L Chronic diastolic CHF (congestive heart failure) ([facility]) 07/22/2018 CKD (chronic kidney disease) stage 4, GFR 15-29 ml/min ([facility]) 07/22/2018 CORONARY ATHEROSCLER UNSPEC VESSEL 01/03/2009 2 V CABG at age 71 ECG 2-: RBBB per Manish ELEVATED PROSTATE SPECIFIC ANTIGEN 02/01/2009 PSA 4.2 in 3-: repeat with free PSA and MARIO in follow up 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 Rothman for injections. HELDER on CPAP 09/19/2016 BiPAP 12-6 cm Nasal Primary osteoarthritis of left hip 11/02/2020 RBBB (right bundle branch block) 07/30/2016 S/P CABG x 2 07/30/2016 Skin mass 10/26/2010 Lipoma, left forehead SLEEP DISTURBANCE NOS 01/31/2009 03-09-09: effic 89%, AHI 3, low sat 86% (< 89% only 1.2 minutes), PLMI 7.5/hr Type II or unspecified type diabetes mellitus without mention of complication, uncontrolled 04/2003 Unspecified essential hypertension 09/2003 PAST SURGICAL HISTO (more content not included)...[facility] 12-13-2024 History of Present illness Narrative* Homer Carpio APRN.RAJWINDER, PhD - 12/13/2024 2:50 PM EST Images from the original note were not included. [facility] Federico Hu is a 89 year old male patient. Reason for visit: Consult, referred by Dr. Acevedo for possible mgus. My recommendations to the consult requesting physician are communicated via the shared electronic medical record or [place] mail. Baseline assessment on initial diagnosis date 11/2024 IMWG criteria, [place] Journal of Haematology 121: 749-57, 2003, update in: Durie et al. Leukemia 20: 1467-73, 2006 and at IMW meeting 2010 no clone identified Related Organ or Tissue Involvement (CRAB) or other Myeloma Defining Event (MDE): none Monoclonal proteins at diagnosis: M-Protein Location CM Comment: Not Applicable. M-Protein Concentration <=0.00 g/dL 0.00 0.00 SPE Staff Review Reviewed by Mauro Soria MD, Ph.D ([id number]) Reviewed by Mauro Soria MD, Ph.D ([id number]) Resulting Agency [facility] [place] Narrative Performed by: [facility] Serum electrophoresis test was performed using the UKDN Waterflow V8 NEXUS capillary electrophoresis method. Results obtained with different assay methods or kits cannot be used interchangeably. Specimen Collected: 12/13/24 3:21 PM EST Last Resulted: 12/15/24 8:40 AM EST [place] Free, Serum 3.3 - 19.4 mg/L 74.1 High 72.8 High CM Comment: Rarely, increased serum free light chains levels may not be detected or accurately quantified due to prozone phenomenon or in high viscosity samples using this immunoturbidimetric assay. Correlation with other laboratory results and clinical findings is recommended. The [place] Free Light Chain was performed using the Binding Site Optilite immunoturbidimetric method. Result obtained with different assay methods or kits cannot be used interchangeably. Lambda Free, Serum 5.7 - 26.3 mg/L 55.7 High 52.1 High CM Comment: Rarely, increased serum free light chains levels may not be detected or accurately quantified due to prozone phenomenon or in high viscosity samples using this immunoturbidimetric assay. Correlation with other laboratory results and clinical findings is recommended. The Lambda Free Light Chain was performed using the Binding Site Optilite immunoturbidimetric method. Result obtained with different assay methods or kits cannot be used interchangeably. K/L Ratio, Serum 0.26 - 1.65 1.33 1.40 Total immunoglobulins at diagnosis: Component Ref Range & Units 7 d ago 3 mo ago IgG 700 - 1,600 mg/dL 757 707 IgA 70 - 400 mg/dL 159 154 IgM 40 - 230 mg/dL 125 114 Bone marrow plasma cell infiltration: not performed Systemic treatment and disease course History of present illness Mr. Hu is a very pleasant 89 year old who presents today for evaluation of abnormal light chains, worsening CKD and persistent hypercalcemia w/ normal PTH. PMH of afib, HFpEF, CAD s/p CABG 2008, DM2, HTN, OA, HELDER on CPAP, HPL, Review of systems He specifically denies any fevers chills or night sweats. He has not noticed any increased shortness of breath on exertion from his baseline. He has been without new back or bone pain. He does not have any significant respiratory symptoms except for shortness of breath and a mild chronic cough. He is undergoing evaluation for hyperparathyroidism and associated hypercalcemia with endocrinology PAST MEDICAL HISTORY Diagnosis Date Anal fissure 06/19/2006 Atrial fibrillation (HCC) 05/13/2016 Benign localized hyperplasia of prostate with urinary obstruction and other lower urinary tract symptoms (LUTS)(600.21) 11/30/2009 CAROTID ART OCCL-NO INFARCT 01/31/2009 Carotid US 1-09: > 50% on the R, < 50% on the L Chronic diastolic CHF (congestive heart failure) ([facility]) 07/22/2018 CKD (chronic kidney disease) stage 4, GFR 15-29 ml/min ([facility]) 07/22/2018 CORONARY ATHEROSCLER UNSPEC VESSEL 01/03/2009 2 V CABG at age 71 ECG 12-26: RBBB per Manish ELEVATED PROSTATE SPECIFIC ANTIGEN 02/01/2009 PSA 4.2 in 01-23: repeat with free PSA and MARIO in follow up 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 Rothman for injections. HELDER on CPAP 09/19/2016 BiPAP 12-6 cm Nasal Primary osteoarthritis of left hip 11/02/2020 RBBB (right bundle branch block) 07/30/2016 S/P CABG x 2 07/30/2016 Skin mass 10/26/2010 Lipoma, left forehead SLEEP DISTURBANCE NOS 01/31/2009 03-09-09: effic 89%, AHI 3, low sat 86% (< 89% only 1.2 minutes), PLMI 7.5/hr Type II or unspecified type diabetes mellitus without mention of complication, uncontrolled 04/2003 Unspecified essential hypertension 09/2003 PAST SURGICAL HISTORY Procedure Laterality Date ARTHRP KNE CONDYLE&PLATU MEDIAL&LAT COMPARTMENTS Left 01/01/2008 Knee replacement, total, Left ARTHRP KNE CONDYLE&PLATU MEDIAL&LAT COMPARTMENTS Right 04/14/2018 CARDIAC CATH 02/26/2018 COLONOSCOPY FLX DX W/COLLJ SPEC WHEN PFRMD 08/01/06 Posterior anal fissure CORONARY ARTERY BYP W/VEIN & ARTERY GRAFT 2 VEIN 2006 CABG, two grafts PAST SURGICAL HISTORY OF 07/1979 anal fissure repair PROSTATE BIOPSY RPR 1ST INGUN HRNA AGE 5 YRS/> REDUCIBLE 09/27/1992 Hernia repair, inguinal, left laparoscopic Allergies / intolerances ALLERGIES Allergen Reactions Fexofenadine Unknown Proscar [Finasterid* Rash Medications FARXIGA 10 mg tablet Take 10 mg by mouth once daily. Blood-Glucose Meter,Continuous (DEXCOM G7 REGIONAL AGRONOMIST) misc Dx: E11.49. Insulin: Yes. Use to check blood sugars at least 4 times a day Blood-Glucose Sensor (DEXCOM G7 SENSOR) laquita Dx: E11.49. Insulin: Yes. Apply new sensor every ten (10) days CPAP/BIPAP/OTHER Type .CPAPSettings into a note to see current settings/supplies/DME information. clotrimazole (LOTRIMIN) 1 % cream Apply 1 application to affected area two times a day. doxazosin (CARDURA) 2 mg tablet Take 1 tablet by mouth daily at bedtime. semaglutide (OZEMPIC) 1 mg/dose (4 mg/3 mL) pen Inject 1 mg subcutaneously one time a week. Per medication program. blood sugar diagnostic (TRUE METRIX GLUCOSE TEST STRIP) test strip Test twice daily. Dx: E11.49. Insulin: Yes. furosemide (LASIX) 40 mg tablet Take one(1) tablet daily in the morning. Take one(1) tablet in the evening, every other day. Per Cardiology. triamcinolone acetonide (KENALOG) 0.1 % cream Apply 1 application to affected area two times a day.Apply sparingly to top of ears apixaban (ELIQUIS) 2.5 mg tab(s) Take 1 tablet by mouth twice daily. Per Cardiology. sacubitril-valsartan (ENTRESTO) 97-103 mg tablet Take 1 tablet by mouth two times a day. Per Cardiology. insulin degludec (TRESIBA FLEXTOUCH U-200) 200 unit/mL (3 mL) injection Inject 64 Units subcutaneously every morning. Pt Assistance Medication. insulin aspart U-100 (NOVOLOG FLEXPEN U-100 INSULIN) 100 unit/mL (3 mL) Inject 8 Units subcutaneously daily with dinner. Patient assistance. (will switch from Humalog sample to Novolog when supply arrives) atorvastatin (LIPITOR) 40 mg tablet Take 40 mg by mouth once daily. insulin needles, DISPOSABLE, 31 gauge x 516 ndle Test blood sugar twice a day DX:E11.49 nitroglycerin sublingual (NITROQUICK) 0.4 mg SL tablet Dissolve 1 tablet under the tongue as neededfor Chest Pain. If no pain relief call 911. MULTIVITAMIN TAB Take one(1) tablet daily. Social History Tobacco Use Smoking status: Former Current packs/day: 0.00 Average packs/day: 3.0 packs/day for 20.0 years (60.0 ttl pk-yrs) Types: Cigarettes Start date: [birth year]/17/1954 Quit date: 11/17/1974 Years since quittin.1 Smokeless tobacco: Never Substance Use Topics Alcohol use: No Drug use: No FAMILY HISTORY Problem Relation Age of Onset Coronary Artery Disease Father age 69 Diabetes Father Breast Cancer Mother age 75 Diabetes Mother GI Brother Physical examination BP 109/58 Pulse 80 Temp (Src) 97.5 (Temporal) Resp 18 Ht 5' 9.685 (1.77m) Wt 348 lb 12.3oz (158.2kg) SpO2 97% BMI 50.50 kg/(m^2). ECOG PS: 2 GEN: NAD in a wheelchair HEENT: normocephalic ABD non tender CV: HRR Lungs CTA Laboratory tests WBC (k/uL) Date Value 02/22/2022 7.01 06/01/2021 7.07 05/29/2020 6.20 05/12/2019 6.71 09/21/2018 6.16 02/19/2018 6.87 01/05/2018 5.27 09/11/2017 4.60 05/27/2016 Test sent to [facility]. Abs Neut (ANC) (k/uL) Date Value 09/11/2017 2.79 Hemoglobin (g/dL) Date Value 02/22/2022 13.0 06/01/2021 15.1 05/29/2020 15.1 05/12/2019 14.6 09/21/2018 12.3 02/19/2018 11.8 01/05/2018 12.8 09/11/2017 12.6 05/27/2016 Test sent to [facility]. Platelet Count (k/uL) Date Value 02/22/2022 130 06/01/2021 143 05/29/2020 139 05/12/2019 164 09/21/2018 141 02/19/2018 168 01/05/2018 150 09/11/2017 149 05/27/2016 Test sent to [facility]. Glucose Date Value 11/05/2024 126 mg/dL 09/01/2024 98 mg/dL 07/28/2024 93 mg/dL 06/04/2022 175 MG/DL 02/22/2022 271 mg/dL 11/15/2021 153 mg/dL 03/02/2021 268 mg/dL 11/27/2020 137 mg/dL 05/29/2020 186 mg/dL 11/29/2019 169 mg/dL 11/08/2019 221 mg/dL 05/12/2019 166 mg/dL 02/15/2019 213 mg/dL 01/11/2019 143 mg/dL 09/21/2018 144 mg/dL Creatinine Date Value 11/05/2024 3.19 mg/dL 09/01/2024 3.08 mg/dL 07/28/2024 3.15 mg/dL 06/04/2022 2.32 MG/DL 02/22/2022 1.91 mg/dL 11/15/2021 1.72 mg/dL 03/02/2021 1.80 mg/dL 11/27/2020 1.85 mg/dL 05/29/2020 1.80 mg/dL 11/29/2019 1.84 mg/dL 11/08/2019 1.76 mg/dL 05/12/2019 1.70 mg/dL 02/15/2019 1.63 mg/dL 01/11/2019 2.18 mg/dL 09/21/2018 2.13 mg/dL Calcium Date Value 06/04/2022 10.5 MG/DL 11/15/2021 11.3 mg/dL 03/02/2021 11.2 mg/dL 11/27/2020 10.5 mg/dL 05/29/2020 10.8 mg/dL 11/29/2019 11.1 mg/dL 11/08/2019 10.6 mg/dL 05/12/2019 11.7 mg/dL 02/15/2019 10.3 mg/dL 01/11/2019 10.1 mg/dL 09/21/2018 10.5 mg/dL Calcium, Total (mg/dL) Date Value 11/05/2024 12.4 09/01/2024 11.6 07/28/2024 10.9 02/22/2022 10.9 M-Protein Concentration (g/dL) Date Value 02/22/2022 0.00 [place] Free, Serum (mg/L) Date Value 09/01/2024 72.8 Lambda Free, Serum (mg/L) Date Value 09/01/2024 52.1 Interpretation (MPA) (no units) Date Value 09/01/2024 Poorly defined region of restricted mobility in IgG and kappa lanes. Pattern is less well defined or fainter than typically seen in monoclonal gammopathy. This could represent either an atypical presentation of polyclonal immunoglobulins or the presence of a low level IgG kappa monoclonal gammopathy. If clinically indicated, urine monoclonal protein analysis and serum free light chain measurements are recommended to evaluate further for monoclonal gammopathy. Clinical correlation is necessary. ASSESSMENT/PLAN: possible IgG K Monoclonal gammopathy: The natural history and pathophysiology of multiple myeloma, amyloidosis and plasma cell dyscrasias were again explained. Three levels were discussed primarily as relates to IgG K monoclonal gammopathy which includes, but is not limited to, MGUS (low level m protein without evidence of organ damage) smoldering MM (higher m component without organ damage, or multiple myeloma. The current criteria for active MM requiring treatment can be remembered by the pneumonic SLiM CRAB (Yanick SV, et al., The Lancet. Oncol. Sep 2014;15(12):g805-n772.) S-Sixty percent or greater clonal plasma cells, Li- An elevated serum free light chains (kappa/lambda ratio >100, M- Magnetic Resonance Imaging (MRI) with greater than 1 focal lesion >5mm, C- Calcium elevation (>11.0g/dL) R- Renal insufficiency or failure (creat >2.0g/dL and related to the paraprotein A- Anemia (hemoglobin less than 10 or a 2 gram drop from baseline), B- bone disease (osteoporosis or lytic lesions). Obtain a CT chest to rule out malignancy in light of high PTHrP; discussed with tumor board last, checked in 2020. He will have this done on December 30 at [facility] I will call him with results thereafter All questions were answered Homer Carpio PhD, MSN, PROCESS EXPERT-BC, AOCN, BMTCN, FAAN, FAPO Hematologic Oncology and Blood Disorders [facility] [place] [address] Email: * Otoniel Hoyos LPN - 12/13/2024 2:38 PM EST Additional intake questions: Has the patient had fever, nausea, vomiting, diarrhea, constipation, fatigue for > 1 week? Yes, fatigue and Provider Notified Does the patient have a decreased appetite? No Does patient want to see a Culinary Intern? No (yes to any of above refer patient to schedulers for dietitian appointment) ) Does patient have any new or increased numbness or tingling of extremities? No Is patient interested in fertility information? NA Does patient need any prescription refills? No Does patient have an advanced directive in place? No documented in [facility] [place] NoteHNO ID: [id number] Author: OTONIEL HOYOS LPN Service: ? Author Type: LICENSED NURSE Type: Progress Notes Filed: 12/22/2024 09:55 Note Text: Additional intake questions: Has the patient had fever, nausea, vomiting, diarrhea, constipation, fatigue for > 1 week? Yes, fatigue and Provider Notified Does the patient have a decreased appetite? No Does patient want to see a Culinary Intern? No (yes to any of above refer patient to schedulers for dietitian appointment) ) Does patient have any new or increased numbness or tingling of extremities? No Is patient interested in fertility information? NA Does patient need any prescription refills? No Does patient have an advanced directive in place? No Electronically Signed By: [facility] History and physical note* Kristin Guevara MD - 12/13/2024 12:50 PM EST [facility] [place] [facility] Kristin Guevara M.D. [address] [facility] [place] [address] Name: Federico Hu [facility] Number: [id number] Date of Service: December 13, 2024 Federico Hu has been referred by Dr. Richter for evaluation of hyperparathyroidism. My assessment and recommendation for this patient will be communicated via shared medical records. Thank you for referring this patient to me. As you know, he is an 89 year old man who was found to have elevated calcium levels during a consult with his keno manager. Subsequently biochemical workupalso revealed an elevated PTH level. The diagnosis of primary hyperparathyroidism was made, and he was referred here for further evaluation. His hypercalcemia has been present since 2017 but it was worsened recently. Mr. Hu has multiple medical issues including afib on Eliquis, CHF, CKD, HELDER and hyperlipidemia.His last surgical history was over five years ago when he had knee replacement done. He did well with the spinal anesthesia. His medication list was reviewed today and he has allergy to Proscar and fexofenadine. He is currently taking Lasix at 40 mg daily. In terms of family history, there is no history of thyroid of parathyroid disease. He has had no personal history of head and neck radiation. He is not a smoker but used to smoke when he was younger.And he is and retired. He lives at home by himself but needs help with cooking and cleaning. In terms of symptoms related to hyperparathyroidism, he reports the following symptoms: musculoskeletal pain. Additional review of system showed the following pertinent findings: fatigue- sometimes, weight problems-no, skin rash-no, shortness of breath-yes, chest pain-no, heartburn/reflux-yes, bleeding problems or easy bruising-no, headaches- no, anxiety-no and depression-sometimes. In reviewing his biochemical studies, Mr. Hu has had elevated serum calcium levels since 2014. His most recent biochemical studies from 11/05/2024 revealed a serum calcium of 12.4 (nl 8.5-10.2), corresponding PTH of 65 (nl <65), phosphorous of 3.9, ionized calcium of 1.55 (nl <1.30), 25-dihydroxyvitamin D level of 63.7 (nl 31-80) and 1,25-dihydroxyvitamin D level of 73.9 (nl19.9- 79.3). 24-hour urinary calcium collection was ordered however not collected for this visit. No parathyroid scan or bone density scan were performed prior to this visit. On physical exam, Mr. Hu is alert and oriented obese man. He is in a wheelchair due to distancefrom [place] to the clinic. He does not have glasses. There is no obvious skin rash or lesions. On inspection the skin over the anterior neck is smooth, no mass is visualized . Palpation revealed neck to be supple, thyroid gland is palpable and overall normal in size. He has limited neck hyper extension. No lymphadenopathy was palpated on either side of the neck. The heart is regular rate and rhythm and she breathes with ease at rest. There is no obvious extremity deformity. A neck US was performed in the procedure room today, however the patient had difficulties extendinghis neck and visualization was limited. This revealed the thyroid gland to be overall normal in size, with coarse echogenicity. There are multiple subcentimeter thyroid nodule(s) seen. There was no area seen on ultrasound to suggest an abnormal parathyroid gland. There are benign appearing lymph nodes seen in the lateral neck compartments bilaterally. Assessment/Plan: This is a 89 year old patient with biochemical studies that show primary hyperparathyroidism. Even though he has clinical findings of musculoskeletal pain, constipation, as well as kidney disease and he could potentially benefit from surgery, Mr. Hu has multiple co morbidities ( pulmonary and cardiac) which put him at a higher risk for perioperative complications, especially when undergoing general anesthesia. In addition, his procedure may be more complicated due to his limited neck range of motion. Therefore, I would like to order a spect/ct scan to identify the abnormal parathyroid gland in the hopes of planning for a more targeted surgery with the least amount of time under anesthesia. Should we decide to move forward with surgery, he will need to undergo rigorous pre-operative testing to clear him for surgery. All his questions have been answered today. And he will contact my office if there is any additional questions. I appreciate being involved in the care of your patient and please feel free to contact me should you have any questions or concerns. Kristin Guevara MD [facility]01-27-2025 History and physical note* Kristin Guevara MD - 12/13/2024 12:50 PM EST [facility] Kristin Guevara M.D. [address] [address] Name: Federico Hu Clinic Number: [id number] Date of Service: December 13, 2024 Federico Hu has been referred by Dr. Richter for evaluation of hyperparathyroidism. My assessment and recommendation for this patient will be communicated via shared medical records. Thank you for referring this patient to me. As you know, he is an 89 year old man who was found to have elevated calcium levels during a consult with his keno manager. Subsequently biochemical workupalso revealed an elevated PTH level. The diagnosis of primary hyperparathyroidism was made, and he was referred here for further evaluation. His hypercalcemia has been present since 2017 but it was worsened recently. Mr. Hu has multiple medical issues including afib on Eliquis, CHF, CKD, HELDER and hyperlipidemia.His last surgical history was over five years ago when he had knee replacement done. He did well with the spinal anesthesia. His medication list was reviewed today and he has allergy to Proscar and fexofenadine. He is currently taking Lasix at 40 mg daily. In terms of family history, there is no history of thyroid of parathyroid disease. He has had no personal history of head and neck radiation. He is not a smoker but used to smoke when he was younger.And he is and retired. He lives at home by himself but needs help with cooking and cleaning. In terms of symptoms related to hyperparathyroidism, he reports the following symptoms: musculoskeletal pain. Additional review of system showed the following pertinent findings: fatigue- sometimes, weight problems-no, skin rash-no, shortness of breath-yes, chest pain-no, heartburn/reflux-yes, bleeding problems or easy bruising-no, headaches- no, anxiety-no and depression-sometimes. In reviewing his biochemical studies, Mr. Hu has had elevated serum calcium levels since 2014. His most recent biochemical studies from 11/05/2024 revealed a serum calcium of 12.4 (nl 8.5-10.2), corresponding PTH of 65 (nl <65), phosphorous of 3.9, ionized calcium of 1.55 (nl <1.30), 25-dihydroxyvitamin D level of 63.7 (nl 31-80) and 1,25-dihydroxyvitamin D level of 73.9 (nl19.9- 79.3). 24-hour urinary calcium collection was ordered however not collected for this visit. No parathyroid scan or bone density scan were performed prior to this visit. On physical exam, Mr. Hu is alert and oriented obese man. He is in a wheelchair due to distancefrom [place] to the clinic. He does not have glasses. There is no obvious skin rash or lesions. On inspection the skin over the anterior neck is smooth, no mass is visualized . Palpation revealed neck to be supple, thyroid gland is palpable and overall normal in size. He has limited neck hyper extension. No lymphadenopathy was palpated on either side of the neck. The heart is regular rate and rhythm and she breathes with ease at rest. There is no obvious extremity deformity. A neck US was performed in the procedure room today, however the patient had difficulties extendinghis neck and visualization was limited. This revealed the thyroid gland to be overall normal in size, with coarse echogenicity. There are multiple subcentimeter thyroid nodule(s) seen. There was no area seen on ultrasound to suggest an abnormal parathyroid gland. There are benign appearing lymph nodes seen in the lateral neck compartments bilaterally. Assessment/Plan: This is a 89 year old patient with biochemical studies that show primary hyperparathyroidism. Even though he has clinical findings of musculoskeletal pain, constipation, as well as kidney disease and he could potentially benefit from surgery, Mr. Hu has multiple co morbidities ( pulmonary and cardiac) which put him at a higher risk for perioperative complications, especially when undergoing general anesthesia. In addition, his procedure may be more complicated due to his limited neck range of motion. Therefore, I would like to order a spect/ct scan to identify the abnormal parathyroid gland in the hopes of planning for a more targeted surgery with the least amount of time under anesthesia. Should we decide to move forward with surgery, he will need to undergo rigorous pre-operative testing to clear him for surgery. All his questions have been answered today. And he will contact my office if there is any additional questions. I appreciate being involved in the care of your patient and please feel free to contact me should you have any questions or concerns. Kristin Guevara MD documented in this encounter[facility] [place] Instructions* Patient Instructions* Teresa Pinon MA - 12/13/2024 12:19 PM EST Thank you for choosing the [facility] Department of Endocrinology, Diabetes and Metabolism. Did you know that you need to call 48 hours in advance of your scheduled visit, if you are unable to make your appointment? [facility] thanks you for your commitment, because patients not showing to their appointment results in a lost opportunity for patients to receive [facility] health care at the [facility]. To Cancel an appointment, please choose one of the following: - Call the Appointment Call Center at [phone] - From [employer], Go to Appointments - Cancel Appts If cancelling, consider your need to reschedule to prevent further delays in your care. To Schedule an appointment, please choose one of the following: - Call the Appointment Call Center at [phone] - From [employer], Go to Appointments - Request an Appt documented in this encounterKing'S [facility] [place] Telephone encounter Note * Telephone Encounter - Jazlyn Carmen - 12/01/2024 10:21 AM EST 12/01/2024: INTAKE QUESTIONS - URINE ORDERED - PER PT REQUEST, MIBI HAS NOT BEEN ORDERED (PT STATEDTHAT HE WOULD LIKE TO MEET PROVIDER BEFORE ANY IMAGING ORDER IS PLACED) - BLOOD CURRENT ENDOCRINE SURGERY PATIENT WORKSHEET Initial Call Date: December 01, 2024 Reason for Consult/ Referral: Hyperparathyroid; Hypercalcemia PATIENT DEMOGRAPHICS Name: Federico Hu [facility]#: [id number] : 1935 AGE: [age] year old Contact Numbers: Home: (home) Work: There is no work phone number on file. PATIENT PHYSICIAN INFORMATION Referring Doctor: Dr. Velia Richter, DO Address: Phone: Branch Or Department Chief Librarian: N/A Address: Phone: PCP: Nithin Acevedo [address] [place] [address] PAST TREATMENT Office notes: SEE EPIC Medications: ELIQUIS - ROUTED TO NURSE Pre-Visit Testing Latest Ref Rng 09/01/2024 11/05/2024 Albumin 3.9 - 4.9 g/dL 3.9 4.1 Calcium 8.5 - 10.2 mg/dL 11.6 (H) 12.4 (H) Phosphorus 2.7 - 4.8 mg/dL 3.4 3.9 Glucose 74 - 99 mg/dL 98 126 (H) BUN 9 - 24 mg/dL 62 (H) 60 (H) Creatinine 0.73 - 1.22 mg/dL 3.08 (H) 3.19 (H) Sodium 136 - 144 mmol/L 145 (H) 142 Potassium 3.7 - 5.1 mmol/L 4.8 4.2 Chloride 98 - 107 mmol/L 107 103 CO2 22 - 30 mmol/L 26 28 Anion Gap 8 - 15 mmol/L 12 11 eGFR >=60 mL/min/1.73m 19 (L) 18 (L) Normalized Calcium 1.08 - 1.30 mmol/L 1.54 (H) Ionized Calcium 1.08 - 1.30 mmol/L 1.55 (H) PTH, Intact 15 - 65 pg/mL 79 (H) 65 Vit D1,25 Dihydroxy 19.9 - 79.3 pg/mL 43.9 Vitamin D 25 Hydroxy 31.0 - 80.0 ng/mL 63.7 Legend: (H) High (L) Low Imaging Reports: SEE [facility] CD of Images: SEE [facility] FNA: no FNA Slides: N/A Has the patient ever had thyroid or parathyroid surgery before: No Operative Reports: NONE AVAILABLE Pathology Reports: NONE AVAILABLE [facility]01-15-2025 Miscellaneous Notes* Telephone Encounter - Jazlyn Carmen - 12/01/2024 10:21 AM EST 12/01/2024: INTAKE QUESTIONS - URINE ORDERED - PER PT REQUEST, MIBI HAS NOT BEEN ORDERED (PT STATEDTHAT HE WOULD LIKE TO MEET PROVIDER BEFORE ANY IMAGING ORDER IS PLACED) - BLOOD CURRENT ENDOCRINE SURGERY PATIENT WORKSHEET Initial Call Date: December 01, 2024 Reason for Consult/ Referral: Hyperparathyroid; Hypercalcemia PATIENT DEMOGRAPHICS Name: Federico Hu [facility]#: [id number] : 1935 AGE: [age] year old Contact Numbers: Home: (home) Work: There is no work phone number on file. PATIENT PHYSICIAN INFORMATION Referring Doctor: Dr. Velia Richter DO Address: Phone: Branch Or Department Chief Librarian: N/A Address: Phone: PCP: Nithin Acevedo [address] [facility] [place] [address] PAST TREATMENT Office notes: SEE EPIC Medications: ELIQUIS - ROUTED TO NURSE Pre-Visit Testing Latest Ref Rng 09/01/2024 11/05/2024 Albumin 3.9 - 4.9 g/dL 3.9 4.1 Calcium 8.5 - 10.2 mg/dL 11.6 (H) 12.4 (H) Phosphorus 2.7 - 4.8 mg/dL 3.4 3.9 Glucose 74 - 99 mg/dL 98 126 (H) BUN 9 - 24 mg/dL 62 (H) 60 (H) Creatinine 0.73 - 1.22 mg/dL 3.08 (H) 3.19 (H) Sodium 136 - 144 mmol/L 145 (H) 142 Potassium 3.7 - 5.1 mmol/L 4.8 4.2 Chloride 98 - 107 mmol/L 107 103 CO2 22 - 30 mmol/L 26 28 Anion Gap 8 - 15 mmol/L 12 11 eGFR >=60 mL/min/1.73m 19 (L) 18 (L) Normalized Calcium 1.08 - 1.30 mmol/L 1.54 (H) Ionized Calcium 1.08 - 1.30 mmol/L 1.55 (H) PTH, Intact 15 - 65 pg/mL 79 (H) 65 Vit D1,25 Dihydroxy 19.9 - 79.3 pg/mL 43.9 Vitamin D 25 Hydroxy 31.0 - 80.0 ng/mL 63.7 Legend: (H) High (L) Low Imaging Reports: SEE [facility] CD of Images: SEE [facility] FNA: no FNA Slides: N/A Has the patient ever had thyroid or parathyroid surgery before: No Operative Reports: NONE AVAILABLE Pathology Reports: NONE AVAILABLE documented in this encounterKing'S [facility] [place] Telephone encounter Note * Telephone Encounter - Viet López MA - 12/01/2024 9:28 AM EST Form completed and faxed with office note/rx Viet López MA [facility]01-15-2025 Miscellaneous Notes* Telephone Encounter - Viet López MA - 12/01/2024 9:28 AM EST Form completed and faxed with office note/rx Viet López MA * Telephone Encounter - Viet López MA - 11/30/2024 3:20 PM EST Spoke to patient who would like to try and get dexcom. Called to go over information and she is aware will fax oders to [employer] who will do PA if needed. Please print rx and will fax to DME [employer]. Viet López MA * Telephone Encounter - Viet López MA - 11/24/2024 8:33 AM EST Called patient and advised with medicare continuous monitors and supplies have to go to DME company. Normally use [employer] [facility] takes all medicare so patient aware will have to fax form and prescriptions than he will have to call to set account up. Patient will talk to and call back since he does like convince of going to local drug store. [employer] ([employer]) * Telephone Encounter - Zeny Mead - 11/23/2024 1:47 PM EST Patient is calling requesting PCP order the dexcom system for him .Please advise the patient. documented in this encounterKing'[facility] [place]01-[facility]-2025 Telephone encounter Note * Telephone Encounter - Viet López MA - 11/30/2024 3:20 PM EST Spoke to patient who would like to try and get dexcom. Called to go over information and she is aware will fax oders to [employer] who will do PA if needed. Please print rx and will fax to D[employer]. Viet López MA [facility]01-11-2025 Telephone encounter Note* Telephone Encounter - Daxa Morin LPN - 11/27/2024 9:11 AM EST Info faxed to [employer]. Daxa Morin LPN [facility]01-11-2025 Miscellaneous Notes* Telephone Encounter - Daxa Morin LPN - 11/27/2024 9:11 AM EST Info faxed to [employer]. Daxa Morin LPN * Telephone Encounter - Jacqueline Mir LPN - 11/26/2024 10:20 AM EST Spoke with [employer] and patient's settings were 12-6 cm H2O. Last sleep study was completed at [facility] in 2016. There has been no recent documentation of CPAP use. Patient will need an appointment so this can be discussed for insurance purposes. Patient notified and scheduled 11/26/24 at 1:20 pm. * Telephone Encounter - Nithin Acevedo MD - 11/25/2024 1:07 PM EST Request form from [employer] with settings. * Telephone Encounter - Geneva Valdez - 11/25/2024 11:08 AM EST Patient needs a new cpap Please contact [facility] ([facility]) Ph. [phone] * Telephone Encounter - Bear Good RN - 11/23/2024 1:41 PM EST Pt reports his CPAP stopped working last night and he needs a new one. Asking pcp to send order to [facility] in [place]. Please advise patient. documented in this encounterKing'S [facility] [place]01-10-2025 NoteHNO ID: [id number] Author: NITHIN ACEVEDO MD Service: ? Author Type: Physician Type: Progress Notes Filed: 11/27/2024 09:02 Note Text: This note was created using [employer]. Subjective Patient presents with: Recheck: is needing documentation in office note stating that his CPAP is not working and unable to be repaired it also needs noted that when he wears his CPAP he benefits from using it. Orders: CGM Federico Hu is a 89 year old male. He was diagnosed with obstructive sleep apnea in [address] Escoto. Follow up has not been documented here, but he reported he has been using his CPAP since that time nightly with good results. His original Resmed CPAP machine, now 8 years old quit working 4 days ago and he was eager to resume treatment. He was also asking about a CGM. He had been mainly following with our HERBIC[employer] SPRAYER, and it sounded like this was attempted in the past. I advised him to review this at his next regular diabetes mellitus follow up. Review of Systems Constitutional: Negative for fatigue. Respiratory: Negative for shortness of breath. Cardiovascular: Positive for leg swelling. Negative for chest pain and palpitations. Neurological: Negative for dizziness and headaches. Psychiatric/Behavioral: Negative for sleep disturbance. ACTIVE PROBLEM LIST Morbid Obesity With Bmi of 45.0-49.9, Adult ([facility]) Type 2 Diabetes Mellitus With Neurological Manifestations, Controlled ([facility]) Essential Hypertension Coronary Atherosclerosis Hyperlipemia Bph With Obstruction/Lower Urinary Tract Symptoms Anemia Oa (Osteoarthritis) of Knee Atrial Fibrillation ([facility]) S/P Cabg X 2 Rbbb (Right Bundle Branch Block) Encounter for Monitoring Anti-Arrhythmic Therapy Ckd (Chronic Kidney Disease) Stage 4, Gfr 15-29 Ml/Min ([facility]) Chronic Diastolic Chf (Congestive Heart Failure) ([facility]) 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 doxazosin (CARDURA) 2 mg tablet Take 1 tablet by mouth daily at bedtime. semaglutide (OZEMPIC) 1 mg/dose (4 mg/3 mL) pen Inject 1 mg subcutaneously one time a week. Per medication program. furosemide (LASIX) 40 mg tablet Take one(1) tablet daily in the morning. Take one(1) tablet in the evening, every other day. Per Cardiology. triamcinolone acetonide (KENALOG) 0.1 % cream Apply 1 application to affected area two times a day. Apply sparingly to top of ears apixaban (ELIQUIS) 2.5 mg tab(s) Take 1 tablet by mouth twice daily. Per Cardiology. sacubitril-valsartan (ENTRESTO) 97-103 mg tablet Take 1 tablet by mouth two times a day. Per Cardiology. insulin degludec (TRESIBA FLEXTOUCH U-200) 200 unit/mL (3 mL) injection Inject 64 Units subcutaneously every morning. Pt Assistance Medication. insulin aspart U-100 (NOVOLOG FLEXPEN U-100 INSULIN) 100 unit/mL (3 mL) Inject 8 Units subcutaneously daily with dinner. Patient assistance. (will switch from Humalog sample to Novolog when supply arrives) atorvastatin (LIPITOR) 40 mg tablet Take 40 mg by mouth once daily. nitroglycerin sublingual (NITROQUICK) 0.4 mg SL tablet Dissolve 1 tablet under the tongue as needed for Chest Pain. If no pain relief call 911. MULTIVITAMIN TAB Take one(1) tablet daily. CPAP/BIPAP/OTHER Type .CPAPSettings into a note to see current settings/supplies/DME information. blood sugar diagnostic (TRUE METRIX GLUCOSE TEST STRIP) test strip Test twice daily. Dx: E11.49. Insulin: Yes. insulin needles, DISPOSABLE, 31 gauge x 04/01 ndle Test blood sugar twice a day DX:E11.49 No current facility-administered medications for this visit. Objective BP 120/50 Pulse 65 Wt (!) 158.3 kg (348 lb 15.8 oz) SpO2 98% BMI 46.04 kg/m? Physical Exam Constitutional: General: He is not in acute distress. Appearance: He is not ill-appearing. HENT: Nose: No congestion or rhinorrhea. Mouth/Throat: Mouth: Mucous membranes are moist. Pharynx: Oropharynx is clear. Cardiovascular: Rate and Rhythm: Normal rate and regular rhythm. Heart sounds: No murmur heard. No gallop. Pulmonary: Effort: No respiratory distress. Breath sounds: No wheezing or rales. Musculoskeletal: Right lower leg: No edema. Left lower leg: No edema. Neurological: Mental Status: He is alert. Psychiatric: Mood and Affect: Mood normal. 11/26/2024 [place] People tell me that I snore No I wake up at night with shortness of breath or choking No People tell me I gasp, choke or snort while sleeping No [place]op (more content not included)...[facility]01-10-2025 History of Present illness Narrative* Nithin Acevedo MD - 11/26/2024 4:59 PM EST This note was created using [employer]. Subjective Patient presents with: Recheck: is needing documentation in office note stating that his CPAP is not working and unable tete repaired it also needs noted that when he wears his CPAP he benefits from using it. Orders: CGM Federico Hu is a 89 year old male. He was diagnosed with obstructive sleep apnea in [address] Escoto. Follow up has not been documented here, but he reported he has been using his CPAP since that time nightly with good results. His original Resmed CPAP machine, now 8 years old quit working 4days ago and he was eager to resume treatment. He was also asking about a CGM. He had been mainly following with our [employer], and it sounded like thiswas attempted in the past. I advised him to review this at his next regular diabetes mellitus follow up. Review of Systems Constitutional: Negative for fatigue. Respiratory: Negative for shortness of breath. Cardiovascular: Positive for leg swelling. Negative for chest pain and palpitations. Neurological: Negative for dizziness and headaches. Psychiatric/Behavioral: Negative for sleep disturbance. ACTIVE PROBLEM LIST Morbid Obesity With Bmi of 45.0-49.9, Adult ([facility]) Type 2 Diabetes Mellitus With Neurological Manifestations, Controlled ([facility]) Essential Hypertension Coronary Atherosclerosis Hyperlipemia Bph With Obstruction/Lower Urinary Tract Symptoms Anemia Oa (Osteoarthritis) of Knee Atrial Fibrillation ([facility]) S/P Cabg X 2 Rbbb (Right Bundle Branch Block) Encounter for Monitoring Anti-Arrhythmic Therapy Ckd (Chronic Kidney Disease) Stage 4, Gfr 15-29 Ml/Min ([facility]) Chronic Diastolic Chf (Congestive Heart Failure) ([facility]) 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 doxazosin (CARDURA) 2 mg tablet Take 1 tablet by mouth daily at bedtime. semaglutide (OZEMPIC) 1 mg/dose (4 mg/3 mL) pen Inject 1 mg subcutaneously one time a week. Per medication program. furosemide (LASIX) 40 mg tablet Take one(1) tablet daily in the morning. Take one(1) tablet in the evening, every other day. Per Cardiology. triamcinolone acetonide (KENALOG) 0.1 % cream Apply 1 application to affected area two times a day.Apply sparingly to top of ears apixaban (ELIQUIS) 2.5 mg tab(s) Take 1 tablet by mouth twice daily. Per Cardiology. sacubitril-valsartan (ENTRESTO) 97-103 mg tablet Take 1 tablet by mouth two times a day. Per Cardiology. insulin degludec (TRESIBA FLEXTOUCH U-200) 200 unit/mL (3 mL) injection Inject 64 Units subcutaneously every morning. Pt Assistance Medication. insulin aspart U-100 (NOVOLOG FLEXPEN U-100 INSULIN) 100 unit/mL (3 mL) Inject 8 Units subcutaneously daily with dinner. Patient assistance. (will switch from Humalog sample to Novolog when supply arrives) atorvastatin (LIPITOR) 40 mg tablet Take 40 mg by mouth once daily. nitroglycerin sublingual (NITROQUICK) 0.4 mg SL tablet Dissolve 1 tablet under the tongue as neededfor Chest Pain. If no pain relief call 911. MULTIVITAMIN TAB Take one(1) tablet daily. CPAP/BIPAP/OTHER Type .CPAPSettings into a note to see current settings/supplies/DME information. blood sugar diagnostic (TRUE METRIX GLUCOSE TEST STRIP) test strip Test twice daily. Dx: E11.49. Insulin: Yes. insulin needles, DISPOSABLE, 31 gauge x 5/16 ndle Test blood sugar twice a day DX:E11.49 No current facility-administered medications for this visit. Objective BP 120/50 Pulse 65 Wt (!) 158.3 kg (348 lb 15.8 oz) SpO2 98% BMI 46.04 kg/m Physical Exam Constitutional: General: He is not in acute distress. Appearance: He is not ill-appearing. HENT: Nose: No congestion or rhinorrhea. Mouth/Throat: Mouth: Mucous membranes are moist. Pharynx: Oropharynx is clear. Cardiovascular: Rate and Rhythm: Normal rate and regular rhythm. Heart sounds: No murmur heard. No gallop. Pulmonary: Effort: No respiratory distress. Breath sounds: No wheezing or rales. Musculoskeletal: Right lower leg: No edema. Left lower leg: No edema. Neurological: Mental Status: He is alert. Psychiatric: Mood and Affect: Mood normal. 11/26/2024 [place] People tell me that I snore No I wake up at night with shortness of breath or choking No People tell me I gasp, choke or snort while sleeping No People tell me that I stop breathing when sleeping No Feel almost as/more tired after waking No Often wake with headache No Often have difficulty breathing thru nose No I fight sleepiness during the day No I fall asleep when relaxing before/after dinner Yes Friends,colleagues, family comment on my sleep No Sitting and reading 1 - Slight Chance Watching TV 2 - Moderate Chance Sitting/inactive in public place 0 - Never Car for an hour without break 0 - Never Lying down for rest (afternoon) 2 - Moderate Chance Sitting and talking to someone 0 - Never Sitting quietly after lunch (no alcohol) 0 - Never In car, stopped in traffic 0 - Never Have high BP history? Yes Have history of CHF? Yes Assessment and Plan 1. HELDER on CPAP - ICD9: 327.23, ICD10: G47.33 (primary diagnosis) Patient is using and benefiting from ongoing BiPAP therapy and should continue. Records indicate BiPAP 12-6 cm H2O. Replacement. - PAP THERAPY ORDER 2. Chronic diastolic CHF (congestive heart failure) (HCC) - ICD9: 428.32, 428.0, ICD10: I50.32 - Compensated - Continue current medications 3. Type 2 diabetes mellitus with neurological manifestations, controlled (HCC) - ICD9: 250.60, ICD10: E11.49 - Controlled. Discuss CGM at diabetes mellitus follow up. Nithin Acevedo MD documented [facility] [place] Telephone encounter Note * Telephone Encounter - Jacqueline Mir LPN - 11/26/2024 10:20 AM EST Spoke with [employer] and patient's settings were 12-6 cm H2O. Last sleep study was completed at [facility] in 2016. There has been no recent documentation of CPAP use. Patient will need an appointment so this can be discussed for insurance purposes. Patient notified and scheduled 11/26/24 at 1:20 pm. [facility] [place]01-09-2025 Telephone encounter Note* Telephone Encounter - Nithin Acevedo MD - 11/25/2024 1:07 PM EST Request form from [facility] with settings. [facility]01-09-2025 Telephone encounter Note* Telephone Encounter - Philippe Hull [place] M - 11/25/2024 11:08 AM EST Patient needs a new cpap Please contact [facility] ([facility]) Ph. [phone] [facility] Work Phone: 1(788) 131-474801-08-2025 Telephone encounter Note* Telephone Encounter - Viet López MA - 11/24/2024 8:33 AM EST Called patient and advised with medicare continuous monitors and supplies have to go to [employer]. Normally use [employer] takes all medicare so patient aware will have to fax form and prescriptions than he will have to call to set account up. Patient will talk to and call back since he does like convince of going to local drug store. [email or web address] [email or web address]) [facility]01-07-2025 Telephone encounter Note* Telephone Encounter - Zeny Mead - 11/23/2024 1:47 PM EST Patient is calling requesting PCP order the dexcom system for him .Please advise the patient. [facility]01-07-2025 Telephone encounter Note* Telephone Encounter - Bear Good RN - 11/23/2024 1:41 PM EST Pt reports his CPAP stopped working last night and he needs a new one. Asking pcp to send order to [facility] in [place]. Please advise patient. [facility] [place]12-20-2024 NoteHNO ID: [id number] Author: OTF FUNK RN Service: ? Author Type: Registered Nurse Type: Progress Notes Filed: 11/08/2024 12:43 Note Text: Added to OTP on 11/05/24. The welcome packet has been mailed out and the patient will be contacted within 2 weeks. Otf Funk RN November 05, 2024 12:28 [facility]12-20-2024 History of Present illness Narrative* Otf Funk RN - 11/05/2024 12:28 PM EST Added to OTP on 11/05/24. The welcome packet has been mailed out and the patient will be contacted within 2 weeks. Otf Funk RN November 05, 2024 12:28 PM documented in this encounterKing'S [facility] [place]12-20-2024 Instructions* Patient Instructions* Katherin Mckinnon, PARK WORKER SUPERVISOR.HERBICIDE SPRAYER - 11/05/2024 11:51 AM EST For chafing/rash in the groin area: over the counter Gold Nur Friction Defense (roller applicator), follow instructions on the package. I am also sending a prescription for an antifungal cream, use twice a day until the rash is gone and then for two more weeks after that. Let me know in two weeks if it is not any better. Screening schedule The following prevention plan is recommended: RSV Vaccine(1 - 1-dose 75+ series) Never done Shingrix Vaccine(2 of 3) due on 12/09/2012 WHAT YOU CAN DO TO PREVENT FALLS Many falls can be prevented. By making some changes, you can lower your chances of falling. Four things YOU can do to prevent falls for you* and your caregiver 1. Begin a regular exercise program Exercise is one of the most important ways to lower your chances of falling. It makes you stronger and helps you feel better. Exercises that improve balance and coordination (like Carl Chi) are the most helpful. Lack of exercise leads to weakness and increases your chances of falling. Ask your doctor or health care provider about the best type of exercise program for you. 2. Have your health care provider review your medicines Have your doctor or pharmacist review all the medicines you take, even bcbr-qjo-[id number] medicines. As you get older, the way medicines work in your body can change. Some medicines, or combinations of medicines, can make you sleepy or dizzy andcan cause you to fall. 3. Have your vision checked Have your eyes checked by an eye doctor at least once a year. You may be wearing the wrong glasses or have a condition like glaucoma or cataracts that limits your vision. Poor vision can increase your chances of falling. 4. Make your home safer About half of all falls happen at home. To make your home safer: Remove things you can trip over (like papers, books, clothes, and shoes) from stairs and places where you walk. Remove small throw rugs or use double-sided tape to keep the rugs from slipping. Keep items you use often in cabinets you can reach easily without using a step stool. Have grab bars put in next to your toilet and in the tub or shower. Use non-slip mats in the bathtub and on shower floors. Improve the lighting in your home. As you get older, you need brighter lights to see well. Hang light-weight curtains or shades to reduce glare. Have handrails and lights put in on all staircases. Wear shoes both inside and outside the house. Avoid going barefoot or wearing slippers. For more information, contact: Centers for Disease Control and Prevention www.cdc.gov/injury * This information may not apply if you have certain medical conditions. documented in this encounterKing'S [facility] [place]12-20-2024 NoteHNO ID: [id number] Author: KATHERIN MCKINNON APRN.RAJWINDER Service: ? Author Type: Nurse Practitioner Type: Progress Notes Filed: 11/05/2024 12:56 Note Text: Federico Hu is a 89 year old male here for a Medicare wellness visit. Medicare Health Risk Assessment General Health Fair Exercise: Minutes/Day 0 min Exercise: Days/Week 0 days Alcohol: Daily Use Never Alcohol: Drinks/Day Patient does not drink Alcohol: 6 or more drinks Never Feel off balance Yes Concerns: Teeth/Dentures No Concerns: Sexual function No Troubled by feelings None of the above Frequency: Eating healthy diet Several days ADLs requiring help None of the above Safety precautions in home/vehicle Yes Smoke, vape, chews tobacco No Difficulty hearing No Difficulty seeing No Current Providers Specialists: I have reviewed specialist-related care of the patient in the medical record. Current care team: Patient Care Team: Nithin Acevedo MD as PCP - General Katherni Mckinnon APRN.CNP as Road Tester (Internal Medicine) [facility] Nephrology commutator operator-Dr. Strickland Risk Professional- Dr. Porras [facility] Medical/Family history review Reviewed and updated problem list, medical/surgical/family/social history, medications, and allergies. Opioid use review Opioid Medications (last 90 days) No data to display Anxiety/Depression screening PHQ-2 Score: 0 (Lower risk for depression) THEE-2 Score: 0 (Lower risk for anxiety) Recommendation: no further intervention at this time Cognitive screening Mini Cog Score: 3 Cognitive screening reviewed and No further action needed (score 3-5). Functional Observation Was the patient's Timed Up AND Go test unsteady or >= 12 seconds? No Advance Care Planning Patient was not able to provide a surrogate decision maker or written advance directives Measurements BP 110/50 Pulse 69 Wt (!) 159.1 kg (350 lb 12 oz) SpO2 94% BMI 46.28 kg/m? Vision Screening: Follows with optometry/ophthalmology Assessment/Plan Medicare annual wellness visit, subsequent (Z00.00) - Counseled on healthy diet and regular exercise - Fall avoidance information provided - Personalized prevention plan provided - Discussed need for and benefit of weight loss. BMI 46.28 kg/(m2) Additional Concerns The following concerns were also discussed with the patient: Patient reports painful and itchy moist rash underneath his abdominal folds and groin area. He tries to keep it clean and dry as best as he can. Also using powder with no improvement. He is taking all of his medications as prescribed, denies side effects. Does not check his blood sugars or blood pressure at home. He is requesting a CGM for improved blood sugar monitoring. PHYSICAL EXAM BP 110/50 Pulse 69 Wt (!) 159.1 kg (350 lb 12 oz) SpO2 94% BMI 46.28 kg/m? GENERAL: well appearing, alert, in no acute distress CARDIOVASCULAR: regular rate and rhythm. No murmur, rubs or gallops. PULMONARY: clear to auscultation, no wheezing, rhonchi, or crackles ASSESSMENT/PLAN: 1. Medicare annual wellness visit, subsequent - ICD9: V70.0, ICD10: Z00.00 (primary diagnosis) See medicare wellness plan 2. Candidal intertrigo - ICD9: 112.3, ICD10: B37.2 Start treatment with clotrimazole cream, see orders. Skin care discussed. 3. Type 2 diabetes mellitus with neurological manifestations, controlled ([facility]) - ICD9: 250.60, ICD10: E11.49 - Control undetermined, due for labs - Continue current medications 4. Essential hypertension - ICD9: 401.9, ICD10: I10 - Controlled - Continue current medications - Recommend home blood pressure monitoring, to bring results to next visit - Encouraged sodium restriction, DASH or Mediterranean diet 5. CKD (chronic kidney disease) stage 4, GFR 15-29 ml/min ([facility]) - ICD9: 585.4, ICD10: N18.4 - eGFR: 18 Worsening - Counseled on avoiding NSAIDs, adequate hydration - Counseled on low sodium diet - Follow up with kidney medicine 6. Screening for depression - ICD9: V79.0, ICD10: Z13.31 - DEPRESSION SCREENING 7. Encounter for screening examination for other mental health and behavioral disorders - ICD9: V79.8, ICD10: Z13.39 - ANXIETY SCREENING Katherin Mckinnon APRN.RAJWINDERCh[facility]ic[facility]12-20-2024 History of Present illness Narrative* Katherin Mckinnon APRN.RAJWINDER - 11/05/2024 11:48 AM EST Images from the original note were not included. Federico Hu is a 89 year old male here for a Medicare wellness visit. Medicare Health Risk Assessment General Health Fair Exercise: Minutes/Day 0 min Exercise: Days/Week 0 days Alcohol: Daily Use Never Alcohol: Drinks/Day Patient does not drink Alcohol: 6 or more drinks Never Feel off balance Yes Concerns: Teeth/Dentures No Concerns: Sexual function No Troubled by feelings None of the above Frequency: Eating healthy diet Several days ADLs requiring help None of the above Safety precautions in home/vehicle Yes Smoke, vape, chews tobacco No Difficulty hearing No Difficulty seeing No Current Providers Specialists: I have reviewed specialist-related care of the patient in the medical record. Current care team: Patient Care Team: Nithin Acevedo MD as PCP - General Katherin Mckinnon APRN.CNP as Road Tester (Internal Medicine) [facility] Nephrology commutator operator-Dr. Strickland Risk Professional- Dr. Porras [facility] Medical/Family history review Reviewed and updated problem list, medical/surgical/family/social history, medications, and allergies. Opioid use review Opioid Medications (last 90 days) No data to display Anxiety/Depression screening PHQ-2 Score: 0 (Lower risk for depression) THEE-2 Score: 0 (Lower risk for anxiety) Recommendation: no further intervention at this time Cognitive screening Mini Cog Score: 3 Cognitive screening reviewed and No further action needed (score 3-5). Functional Observation Was the patient's Timed Up & Go test unsteady or >= 12 seconds? No Advance Care Planning Patient was not able to provide a surrogate decision maker or written advance directives Measurements BP 110/50 Pulse 69 Wt (!) 159.1 kg (350 lb 12 oz) SpO2 94% BMI 46.28 kg/m Vision Screening: Follows with optometry/ophthalmology Assessment/Plan Medicare annual wellness visit, subsequent (Z00.00) - Counseled on healthy diet and regular exercise - Fall avoidance information provided - Personalized prevention plan provided - Discussed need for and benefit of weight loss. BMI 46.28 kg/(m^2) Additional Concerns The following concerns were also discussed with the patient: Patient reports painful and itchy moist rash underneath his abdominal folds and groin area. He tries to keep it clean and dry as best as he can. Also using powder with no improvement. He is taking all of his medications as prescribed, denies side effects. Does not check his blood sugars or blood pressure at home. He is requesting a CGM for improved blood sugar monitoring. PHYSICAL EXAM BP 110/50 Pulse 69 Wt (!) 159.1 kg (350 lb 12 oz) SpO2 94% BMI 46.28 kg/m GENERAL: well appearing, alert, in no acute distress CARDIOVASCULAR: regular rate and rhythm. No murmur, rubs or gallops. PULMONARY: clear to auscultation, no wheezing, rhonchi, or crackles ASSESSMENT/PLAN: 1. Medicare annual wellness visit, subsequent - ICD9: V70.0, ICD10: Z00.00 (primary diagnosis) See medicare wellness plan 2. Candidal intertrigo - ICD9: 112.3, ICD10: B37.2 Start treatment with clotrimazole cream, see orders. Skin care discussed. 3. Type 2 diabetes mellitus with neurological manifestations, controlled (HCC) - ICD9: 250.60, ICD10: E11.49 - Control undetermined, due for labs - Continue current medications 4. Essential hypertension - ICD9: 401.9, ICD10: I10 - Controlled - Continue current medications - Recommend home blood pressure monitoring, to bring results to next visit - Encouraged sodium restriction, DASH or Mediterranean diet 5. CKD (chronic kidney disease) stage 4, GFR 15-29 ml/min ([facility]) - ICD9: 585.4, ICD10: N18.4 - eGFR: 18 Worsening - Counseled on avoiding NSAIDs, adequate hydration - Counseled on low sodium diet - Follow up with kidney medicine 6. Screening for depression - ICD9: V79.0, ICD10: Z13.31 - DEPRESSION SCREENING 7. Encounter for screening examination for other mental health and behavioral disorders - ICD9: V79.8, ICD10: Z13.39 - ANXIETY SCREENING Katherin Mckinnon APRN.HERBICIDE SPRAYER documented in this encounterKing'S [facility] [place]12-[facility]-2024 History of Present illness Narrative* Sangita Arguello RDMS - 11/05/2024 10:30 AM EST Radiology Service Progress Note PATIENT NAME: Federico Hu DATE OF SERVICE: November 05, 2024 TIME: 11:25 AM PATIENT IDENTITY VERIFICATION COMPLETED USING TWO (2) IDENTIFIERS: Name and Date of confirmedby patient verbally. FALL SCREENING: Has the patient had 2 falls in the last year or 1 fall with injury or currently using an Ambulatory Assistive Device (Walker, Cane, Wheelchair, Crutches, etc.)? Yes, Patient High Riskfor Falls What interventions were put in place to prevent falls during this visit? Instructed Patient to Callfor Help if Needed, Offered Assistance with Transfers/Clothing, Instructed Patient to Remain Seated(Not on Exam Table) Until Exam, Increased Observations by Caregivers, and Escorted to/from Restroom PATIENT GENDER DATA: Male PATIENT RELEVANT IMPLANT DATA REVIEWED: Not Applicable PATIENT PRESENTS WITH AN IMPLANTABLE OR ATTACHED SENIOR QUALITY METHODS SPECIALIST: No RADIOLOGY DEPARTMENT: Ultrasound PERIPHERAL IV DATA: Not applicable SIGNED BY: Sangita Arguello RDMS RVT November 05, 2024 11:25 AM documented in this encounterKing'S [facility] [place]12-20-2024 NoteHNO ID: [id number] Author: SANGITA ARGUELLO RDMS Service: ? Author Type: Corporate Controller Type: Progress Notes Filed: 11/05/2024 11:25 Note Text: Radiology Service Progress Note PATIENT NAME: Federico Hu DATE OF SERVICE: November 05, 2024 TIME: 11:25 AM PATIENT IDENTITY VERIFICATION COMPLETED USING TWO (2) IDENTIFIERS: Name and Date of confirmed by patient verbally. FALL SCREENING: Has the patient had 2 falls in the last year or 1 fall with injury or currently using an Ambulatory Assistive Device (Walker, Cane, Wheelchair, Crutches, etc.)? Yes, Patient High Risk for Falls What interventions were put in place to prevent falls during this visit? Instructed Patient to Call for Help if Needed, Offered Assistance with Transfers/Clothing, Instructed Patient to Remain Seated (Not on Exam Table) Until Exam, Increased Observations by Caregivers, and Escorted to/from Restroom PATIENT GENDER DATA: Male PATIENT RELEVANT IMPLANT DATA REVIEWED: Not Applicable PATIENT PRESENTS WITH AN IMPLANTABLE OR ATTACHED SENIOR QUALITY METHODS SPECIALIST: No RADIOLOGY DEPARTMENT: Ultrasound PERIPHERAL IV DATA: Not applicable SIGNED BY: Sangita Arguello RDMS RVT November 05, 2024 11:25 [facility]12-20-2024 NotePatient Outreach (KIDMMN) FEDERICO HU ([id number]) 1935 M Date Time Provider Department 11/05/24 OTF FUNK During your visit today, we recorded the following information about you: Otf Funk RN 11/08/2024 12:43 PM Signed Added to OTP on 11/05/24. The welcome packet has been mailed out and the patient will be contacted within 2 weeks. Otf Funk RN November 05, 2024 12:28 PM Allergies As of Date: 11/05/2024 Noted Allergy Reaction FEXOFENADINE 11/05/2024 16 - Unknown PROSCAR (FINASTERIDE) 07/02/2010 2 - Rash Date Reviewed: 11/05/2024 Reviewed by: Katherin Mckinnon, PARK WORKER SUPERVISOR.HERBICIDE SPRAYER - Fully Assessed Reason for Visit: Added to OTP [Other] Prescriptions as of 11/08/2024 - clotrimazole (LOTRIMIN) 1 % cream Apply 1 application to affected area two times a day. - doxazosin (CARDURA) 2 mg tablet Take 1 tablet by mouth daily at bedtime. - semaglutide (OZEMPIC) 1 mg/dose (4 mg/3 mL) pen Inject 1 mg subcutaneously one time a week. Per medication program. - blood sugar diagnostic (TRUE METRIX GLUCOSE TEST STRIP) test strip Test twice daily. Dx: E11.49. Insulin: Yes. - furosemide (LASIX) 40 mg tablet Take one(1) tablet daily in the morning. Take one(1) tablet in the evening, every other day. Per Cardiology. - triamcinolone acetonide (KENALOG) 0.1 % cream Apply 1 application to affected area two times a day. Apply sparingly to top of ears - apixaban (ELIQUIS) 2.5 mg tab(s) Take 1 tablet by mouth twice daily. Per Cardiology. - sacubitril-valsartan (ENTRESTO) 97-103 mg tablet Take 1 tablet by mouth two times a day. Per Cardiology. - insulin degludec (TRESIBA FLEXTOUCH U-200) 200 unit/mL (3 mL) injection Inject 64 Units subcutaneously every morning. Pt Assistance Medication. - insulin aspart U-100 (NOVOLOG FLEXPEN U-100 INSULIN) 100 unit/mL (3 mL) Inject 8 Units subcutaneously daily with dinner. Patient assistance. (will switch from Humalog sample to Novolog when supply arrives) - atorvastatin (LIPITOR) 40 mg tablet Take 40 mg by mouth once daily. - insulin needles, DISPOSABLE, 31 gauge x 04/01 ndle Test blood sugar twice a day DX:E11.49 - nitroglycerin sublingual (NITROQUICK) 0.4 mg SL tablet Dissolve 1 tablet under the tongue as needed for Chest Pain. If no pain relief call 911. - MULTIVITAMIN TAB Take one(1) tablet daily. Problem List As Of Date 11/05/2024 Noted Resolved Morbid obesity with BMI of 45.0-49.9, adult (HC* Type 2 diabetes mellitus with neurological maricarmen* Essential hypertension [I10] Anal fissure [K60.2] 06/19/2006 10/09/2010 Shortness of breath [R06.02] 10/23/2006 10/09/2010 Unspecified pleural effusion [J90] 12/25/2006 10/09/2010 Coronary atherosclerosis [I25.10] 01/03/2009 Hyperlipemia [E78.5] 01/03/2009 Occlusion and stenosis of carotid artery withou*01/31/2009 01/26/2019 Unspecified Sleep Disturbance [G47.9] 01/31/2009 09/12/2015 Elevated prostate specific antigen (PSA) [R97.2*02/01/2009 01/19/2018 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] 11/30/2009 10/09/2010 BPH with obstruction/lower urinary tract sympto*08/08/2010 Skin mass [R22.9] 10/26/2010 05/13/2013 Anemia [D64.9] 05/12/2013 OA (osteoarthritis) of knee [M17.9] 09/23/2014 Atrial fibrillation (HCC) [I48.91] 05/13/2016 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] 07/30/2016 RBBB (right bundle branch block) [I45.10] 07/30/2016 Encounter for monitoring anti-arrhythmic therap*07/30/2016 COPD with exacerbation (HCC) [J44.1] 08/07/2016 06/01/2020 CKD (chronic kidney disease) stage 3, GFR 30-59*09/20/2017 12/15/2018 CKD (chronic kidney disease) stage 4, GFR 15-29*07/22/2018 Chronic diastolic CHF (congestive heart failure*07/22/2018 Chronic cough [R05.3] 06/01/2020 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] 11/02/2020 Hypercalcemia [E83.52] 11/23/2021 Wound of left leg [S81.802A] 06/12/2022 05/09/2023 Recurrent epistaxis [R04.0] 06/12/2022 05/09/2023 Candidal intertrigo [B37.2] 11/05/2024 Encounter Status:Closed by OTF FUNK on 11/08/24[facility]12-11-2024 Telephone encounter Note* Telephone Encounter - Poppy Elise MSW - 10/27/2024 11:57 AM EST Sw spoke with patient spouse about ozempic and tresiba through [employer]. Spouse asked Sw to mail [employer] application to her to work on for patient for this next year. Sw asked about any other medications and she notes not at this time. She notes will most likely need to complete new application for Eliquis-[place] Francois for next year, but will let this Sw know. [facility]12-11-2024 Miscellaneous Notes* Telephone Encounter - Poppy Elise MSW - 10/27/2024 11:57 AM EST Claude spoke with patient spouse about ozempic and tresiba through [employer]. Spouse asked Sw to mail [employer] application to her to work on for patient for this next year. Sw asked about any other medications and she notes not at this time. She notes will most likely need to complete new application for Eliquis-[place] Francois for next year, but will let this Sw know. documented in this encounterKing[facility]S [facility] [place]12-06-2024 NoteHNO ID: [id number] Author: CHRISTAL PALOMARES APRN.HERBICIDE SPRAYER Service: ? Author Type: Nurse Practitioner Type: Progress Notes Filed: 10/31/2024 14:44 Note Text: [facility] NEPHROLOG[facility] HYPERTENSION [facility] SERVICE DATE: 10/22/2024 SERVICE TIME: 1:38 PM A portion of this note has been copied from TARAN dated 09/01/24 CHIEF COMPLAINT: Follow-up for CKD HPI: Mr. Hu is a 89 year old male who presents with PMH of afib, HFpEF, CAD s/p CABG 2008, DM2, HTN, OA, HELDER on CPAP, HPL, TARAN 09/01/24 for initial consultation with Dr. Richter for evaluation of CKD. I have communicated my name and active licensure. The patient's identity and physical location were verified at the time of this visit. Either the patient or their legal outside dealer sales representative has been informed of the risks and benefits of -- and alternatives to -- treatment through a remote evaluation and consents to proceed with the evaluation remotely. He feels well. Pain in his back when he walks. No home monitoring of blood pressure No CP +BRIGGS When walking increased distances. +edema to legs and feet He states chronic orthopnea and sleeps on his side No nausea. Occasional emesis in the mornings. Rare diarrhea +OA to b/l knees +neuropathy to feet. PAST MEDICAL HISTORY: PAST MEDICAL HISTORY Diagnosis Date Anal fissure 06/19/2006 Atrial fibrillation (HCC) 05/13/2016 Benign localized hyperplasia of prostate with urinary obstruction and other lower urinary tract symptoms (LUTS)(600.21) 11/30/2009 CAROTID ART OCCL-NO INFARCT 01/31/2009 Carotid US 1-09: > 50% on the R, < 50% on the L Chronic diastolic CHF (congestive heart failure) ([facility]) 07/22/2018 CKD (chronic kidney disease) stage 4, GFR 15-29 ml/min ([facility]) 07/22/2018 CORONARY ATHEROSCLER UNSPEC VESSEL 01/03/2009 2 V CABG at age 71 ECG 12-26: RBBB per Manish ELEVATED PROSTATE SPECIFIC ANTIGEN 02/01/2009 PSA 4.2 in 01-23: repeat with free PSA and MARIO in follow up 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 Rothman for injections. HELDER on CPAP Primary osteoarthritis of left hip 11/02/2020 RBBB (right bundle branch block) 07/30/2016 S/P CABG x 2 07/30/2016 Skin mass 10/26/2010 Lipoma, left forehead SLEEP DISTURBANCE NOS 01/31/2009 03-09-09: effic 89%, AHI 3, low sat 86% (< 89% only 1.2 minutes), PLMI 7.5/hr Type II or unspecified type diabetes mellitus without mention of complication, uncontrolled 04/2003 Unspecified essential hypertension 09/2003 PAST SURGICAL HISTORY: PAST SURGICAL HISTORY Procedure Laterality Date ARTHRP KNE CONDYLEANDPLATU MEDIALANDLAT COMPARTMENTS Left 01/01/2008 Knee replacement, total, Left ARTHRP KNE CONDYLEANDPLATU MEDIALANDLAT COMPARTMENTS Right 04/14/2018 CARDIAC CATH 02/26/2018 COLONOSCOPY FLX DX W/COLLJ SPEC WHEN PFRMD 08/01/06 Posterior anal fissure CORONARY ARTERY BYP W/VEIN AND ARTERY GRAFT 2 VEIN 2006 CABG, two grafts PAST SURGICAL HISTORY OF 07/1979 anal fissure repair PROSTATE BIOPSY RPR 1ST INGUN HRNA AGE 6 YRS/> REDUCIBLE 09/27/1992 Hernia repair, inguinal, left laparoscopic FAMILY HISTORY: FAMILY HISTORY Problem Relation Age of Onset Coronary Artery Disease Father age 69 Diabetes Father Breast Cancer Mother age 75 Diabetes Mother GI Brother SOCIAL HISTORY: Social History Tobacco Use Smoking status: Former Current packs/day: 0.00 Average packs/day: 3.0 packs/day for 20.0 years (60.0 ttl pk-yrs) Types: Cigarettes Start date: 11/17/1954 Quit date: 11/17/1974 Years since quittin.9 Smokeless tobacco: Never Substance Use Topics Alcohol use: No Drug use: No MEDICATIONS: doxazosin (CARDURA) 2 mg tablet Take 1 tablet by mouth daily at bedtime. semaglutide (OZEMPIC) 1 mg/dose (4 mg/3 mL) pen Inject 1 mg subcutaneously one time a week. Per medication program. blood sugar diagnostic (TRUE METRIX GLUCOSE TEST STRIP) test strip Test twice daily. Dx: E11.49. Insulin: Yes. furosemide (LASIX) 40 mg tablet Take one(1) tablet daily in the morning. Take one(1) tablet in the evening, every other day. Per Cardiology. triamcinolone acetonide (KENALOG) 0.1 % cream Apply 1 application to affected area two times a day. Apply sparingly to top of ears apixaban (ELIQUIS) 2.5 mg tab(s) Take 1 tablet by mouth twice daily. Per Cardiology. sacubitril-valsartan (ENTRESTO) 97-103 mg tablet Take 1 tablet by mouth two times a day. Per Cardiology. insulin degludec (TRESIBA FLEXTOUCH U-200) 200 unit/mL (3 mL) injection Inject 64 Units subcutaneously every morning. Pt Assistance Medication. insulin aspart U-100 (NOVOLOG FLEXPEN U-100 INSULIN) 100 unit/mL (3 mL) Injec (more content not included)...[facility]11-11-2024 Telephone encounter Note* Telephone Encounter - Jazlyn Carmen - 09/27/2024 3:12 PM EST Contacted pt in regards to scheduling PTH consult with Dr. Guevara, no answer. Left vm with office number to call to get scheduled; referred by Dr. Velia Richter DO [facility]11-11-2024 Miscellaneous Notes* Telephone Encounter - Jazlyn Carmen - 09/27/2024 3:12 PM EST Contacted pt in regards to scheduling PTH consult with Dr. Guevara, no answer. Left vm with office number to call to get scheduled; referred by Dr. Velia Richter DO documented in this encounterKing'S [facility] [place]10-16-2024 Instructions* Patient Instructions* Velia Richtre DO - 09/01/2024 1:45 PM EDT Stop Vit D and MVI Labs today 3. US kidney 4. Labs before your next visit documented in this encounterKing'S [facility]aughters [facility] [place]10-16-2024 History of Present illness Narrative* Velia Richter DO - 09/01/2024 1:14 PM EDT Consultation requested by Dr. Nithin Acevedo MD for an opinion regarding CKD. My final recommendations will be communicated back to the requesting physician by way of shared medical record or letter via US mail Mr. Hu is a 88 year old who is being managed for CKD PMH of afib, HFpEF, CAD s/p CABG 2008, DM2, HTN, OA, HELDER on CPAP, HPL, LIDA? Hypercalcemia while on Vit D Recent increase in lasix ~ 6 weeks ago No NSAIDS Medications Reviewed Social History Lives in [place], [place]-2 hours away ([place]), 1 son Social History Tobacco Use Smoking status: Former Current packs/day: 0.00 Average packs/day: 3.0 packs/day for 20.0 years (60.0 ttl pk-yrs) Types: Cigarettes Start date: 11/17/1954 Quit date: 11/17/1974 Years since quittin.8 Smokeless tobacco: Never Substance Use Topics Alcohol use: No Drug use: No Family history for kidney disease: None FAMILY HISTORY Problem Relation Age of Onset Coronary Artery Disease Father age 69 Diabetes Father Breast Cancer Mother age 75 Diabetes Mother GI Brother BP - standardized method Pulse 1 BP #1: 110/54 Pulse #1: 64 beats/min 2 BP #2 : 133/68 Pulse #2 : 67 beats/min 3 BP #3 : 129/58 Pulse #3 : 66 beats/min Average Average BP: 124/60 Average Pulse: 65 beats/min Orthostatic vitals Supine Sitting Standing Standing BP : 109/63 Standing pulse : 74 BP cuff location BP cuff location: Right upper arm BP cuff size BP cuff size: extra large adult Comments for BP values First BP (right) First BP (Right): 135/57 First BP (left) First BP (Left): 122/63 PHYSICAL EXAM: Constitutional: No acute distress, Responsive, morbid obesity Cardiovascular: +++ LE peripheral edema Respiratory: Normal respiratory effort. Musculoskeletal: Normocephalic. Psychiatric: Alert and oriented x self, place, time, and setting Normal mood/affect Labs: Reviewed US Kidney: See below ASSESSMENT: LIDA on CKD stage 3 from DM/HTN +/- hypercalcemia Non nephrotic range proteinuria: + ACR Hypertension from renal disease: controlled Anemia of CKD +/- iron deficiency: Hyperparathyroidism secondary to renal disease +/- hypovitamin D: Hypercalcemia Metabolic Acidosis: none Hyperlipidemia: statin Hepatitis B Vaccination: defer Access: defer PLAN: Stop Vit D and MVI Labs with w/up of hypercalcemia 3. May benefit from SGLT if lowered lasix and GFR gets above 20 4. US kidney with post void. RTC in 1-2 month(s) with Christal Richter DO documented in this encounterKing'S [facility] [place]10-03-2024 Telephone encounter Note * Telephone Encounter - Geneva Valdez - 08/19/2024 10:04 AM EDT Prescription Refill Information The patient has been identified by name and date of : Yes Caregiver verified no other encounters exist for this prescription request: Yes Caregiver confirmed with patient/requestor that no other refills are due, in the near future, with this provider at this time: Yes The last office visit in the department: 07-28-24 Does the patient have a future office visit with this provider/department: Yes Requested Prescriptions Pending Prescriptions Disp Refills doxazosin (CARDURA) 2 mg tablet 90 tablet 0 Sig: Take 1 tablet by mouth daily at bedtime. Geneva Hull August 19, 2024 10:05 AM [facility]10-03-2024 Miscellaneous Notes* Telephone Encounter - Geneva Valdez - 08/19/2024 10:04 AM EDT Prescription Refill Information The patient has been identified by name and date of : Yes Caregiver verified no other encounters exist for this prescription request: Yes Caregiver confirmed with patient/requestor that no other refills are due, in the near future, with this provider at this time: Yes The last office visit in the department: 07-28-24 Does the patient have a future office visit with this provider/department: Yes Requested Prescriptions Pending Prescriptions Disp Refills doxazosin (CARDURA) 2 mg tablet 90 tablet 0 Sig: Take 1 tablet by mouth daily at bedtime. Geneva Hull August 19, 2024 10:05 AM documented in this encounterKing'S [facility] [place]09-27-2024 Telephone encounter Note * Telephone Encounter - Kev Mauricio MA - 08/13/2024 1:37 PM EDT Pt notified. [facility]09-27-2024 Miscellaneous Notes* Telephone Encounter - Kev Mauricio MA - 08/13/2024 1:37 PM EDT Pt notified. * Telephone Encounter - Kev Mauricio MA - 08/13/2024 10:36 AM EDT Received from [employer], 100U/mL, # 1 box ( 5x3 mL prefilled syringes. Lot# [id number], Expiration date 05/16/2026. Patient notified to pick pack worker medication. Physician Initial: VV Medications received and verified on the date indicated above documented in this encounterKing'S [facility] [place]09-27-2024 Telephone encounter Note * Telephone Encounter - Kev Mauricio MA - 08/13/2024 10:36 AM EDT Received from [employer], 100U/mL, # 1 box ( 5x3 mL prefilled syringes. Lot# [id number], Expiration date 05/16/2026. Patient notified to pick pack worker medication. Physician Initial: VV Medications received and verified on the date indicated above [facility]09-24-2024 Telephone encounter Note* Telephone Encounter - Kev Mauricio MA - 08/10/2024 1:33 PM EDT Patient notified, verbalized understanding. Transferred to schedulers. [facility]09-24-2024 Miscellaneous Notes* Telephone Encounter - Kev Mauricio MA - 08/10/2024 1:33 PM EDT Patient notified, verbalized understanding. Transferred to schedulers. * Telephone Encounter - Katherin Mckinnon APRN.CNP - 08/10/2024 1:09 PM EDT Please let the patient know his labs indicated kidney function is significantly worse, he will needto see a keno manager. HgbA1c was 6.4 which is excellent. The rest of his labs looked good Katherin Mckinnon APRN.CNP documented in this encounterKing'S [facility]aughters [facility] [place]09-24-2024 Telephone encounter Note * Telephone Encounter - Katherin Mckinnon APRN.CNP - 08/10/2024 1:09 PM EDT Please let the patient know his labs indicated kidney function is significantly worse, he will needto see a keno manager. HgbA1c was 6.4 which is excellent. The rest of his labs looked good Katherin Mckinnon APRN.HERBICIDE SPRAYER [facility]09-17-2024 Telephone encounter Note* Telephone Encounter - Nithin Acevedo MD - 08/03/2024 7:50 PM EDT Updated. [facility]09-17-2024 Miscellaneous Notes* Telephone Encounter - Nithin Acevedo MD - 08/03/2024 7:50 PM EDT Updated. * Telephone Encounter - Ciera Conner LPN - 08/03/2024 11:36 AM EDT Rec'd 5 boxes of tresiba U200 from [employer] lot number is [id number] and exp date is 01/14/2026 Also rec'd ozempic 1X3ml 4PCS NF 1X3ML prefilled 4mg/3ml. Lot number is [id number] and exp date is 03/16/27 Called pt and per spouse he is still taking the ozempic 1mg subcutaneously weekly. This is not on med list can you update this and add it? documented in this encounterKing'S [facility]aughters [facility] [place]09-17-2024 Telephone encounter Note * Telephone Encounter - Ciera Conner LPN - 08/03/2024 11:36 AM EDT Rec'd 5 boxes of tresiba U200 from [employer] lot number is [id number] and exp date is 01/14/2026 Also rec'd ozempic 1X3ml 4PCS NF 1X3ML prefilled 4mg/3ml. Lot number is [id number] and exp date is 03/16/27 Called pt and per spouse he is still taking the ozempic 1mg subcutaneously weekly. This is not on med list can you update this and add it? [facility]09-11-2024 History of Present illness Narrative* Katherin Mckinnon, PARK WORKER SUPERVISOR.HERBICIDE SPRAYER - 07/28/2024 11:00 AM EDT CC: Patient presents with: F/U 6 months HPI Federico Hu is a 88 year old male who presents today for above. HTN-Medication changes:No Taking all medications as prescribed: Yes Side effects: No Home BP's: No Last 3 Encounter BP Readings: Date: BP: 07/28/2024 118/64 03/27/2024 121/76 10/13/2023 128/66 Diabetes: Home blood sugar readings: has not checked in a while, needs testing supplies Hypoglycemia: No He is compliant with medication(s) and is tolerating med(s) without any side effects. Increased thirst: Yes Urinary frequency: Yes Nocturia: Yes Fatigue: No Unintentional weight loss: No Blurred vision: No Numbness, tingling or pain in extremities: No Ulcers or sores on feet: No Last Ophthalmology exam: within the past 12 months Patient's last HgA1C : Hemoglobin A1C (%) Date Value 11/15/2021 9.3 06/01/2021 8.0 Hemoglobin A1C (POCT) (%) Date Value 10/13/2023 6.7 05/09/2023 6.5 Afib- Managed by commutator operator Dr. Strickland. He is compliant with medication(s) and is tolerating med(s)without any side effects. Chest pain: No Palpitations: No Dizziness/lightheadedness: No Syncope: No CHF- He is compliant with medication(s) and is tolerating med(s) without any side effects. Weight Gain: No SOB: Yes, chronic but no worse than usual Edema: Yes, chronic but no worse than usual PND: No Orthopnea: No Recent hospitalizations/exacerbations: No Review of Systems See HPI PAST MEDICAL HISTORY 06/19/2006: Anal fissure 05/13/2016: Atrial fibrillation ([facility]) 11/30/2009: Benign localized hyperplasia of prostate with urinary obstruction and other lower urinary tract symptoms (LUTS)(600.21) 01/31/2009: CAROTID ART OCCL-NO INFARCT Comment: Carotid US 11-25: > 50% on the R, < 50% on the L 07/22/2018: Chronic diastolic CHF (congestive heart failure) ([facility]) 07/22/2018: CKD (chronic kidney disease) stage 4, GFR 15-29 ml/min ([facility]) 01/03/2009: CORONARY ATHEROSCLER UNSPEC VESSEL Comment: 2 V CABG at age 71 ECG 12-26: RBBB per Manish 02/01/2009: ELEVATED PROSTATE SPECIFIC ANTIGEN Comment: PSA 4.2 in 01-23: repeat with free PSA and MARIO in follow up 04/2003: Glycosuria 01/03/2009: HYPERLIPIDEMIA NEC/NOS Comment: LDL 47, HDL 40, TG 93 in 09-2408/08/2010: Hypertrophy of prostate with urinary obstruction and other lower urinary tract symptoms (LUTS) No date: Morbid obesity ([facility]) No date: Multiple papillomata and wet crab yaws due to yaws 09/23/2014: OA (osteoarthritis) of knee Comment: Dr. Rothman for injections. No date: HELDER on CPAP 11/02/2020: Primary osteoarthritis of left hip 07/30/2016: RBBB (right bundle branch block) 07/30/2016: S/P CABG x 2 10/26/2010: Skin mass Comment: Lipoma, left forehead 01/31/2009: SLEEP DISTURBANCE NOS Comment: 03-09-09: effic 89%, AHI 3, low sat 86% (< 89% only 1.2 minutes), PLMI 7.5/hr 04/2003: Type II or unspecified type diabetes mellitus without mention of complication, uncontrolled 09/2003: Unspecified essential hypertension PAST SURGICAL HISTORY 01/01/2008: ARTHRP KNE CONDYLE&PLATU MEDIAL&LAT COMPARTMENTS; Left Comment: Knee replacement, total, Left 04/14/2018: ARTHRP KNE CONDYLE&PLATU MEDIAL&LAT COMPARTMENTS; Right 02/26/2018: CARDIAC CATH 08/01/06: COLONOSCOPY FLX DX W/COLLJ SPEC WHEN PFRMD Comment: Posterior anal fissure 2006: CORONARY ARTERY BYP W/VEIN & ARTERY GRAFT 2 VEIN Comment: CABG, two grafts 07/1979: PAST SURGICAL HISTORY OF Comment: anal fissure repair : PROSTATE BIOPSY US 09/27/1992: RPR 1ST INGUN HRNA AGE 6 YRS/> REDUCIBLE Comment: Hernia repair, inguinal, left laparoscopic ALLERGIES Proscar [Finasteride] MEDICATIONS blood sugar diagnostic (TRUE METRIX GLUCOSE TEST STRIP) test strip Test twice daily. Dx: E11.49. Insulin: Yes. doxazosin (CARDURA) 2 mg tablet Take 1 tablet by mouth daily at bedtime. furosemide (LASIX) 40 mg tablet Take one(1) tablet daily in the morning. Take one(1) tablet in the evening, every other day. Per Cardiology. triamcinolone acetonide (KENALOG) 0.1 % cream Apply 1 application to affected area two times a day.Apply sparingly to top of ears apixaban (ELIQUIS) 2.5 mg tab(s) Take 1 tablet by mouth twice daily. Per Cardiology. sacubitril-valsartan (ENTRESTO) 97-103 mg tablet Take 1 tablet by mouth two times a day. Per Cardiology. insulin degludec (TRESIBA FLEXTOUCH U-200) 200 unit/mL (3 mL) injection Inject 64 Units subcutaneously every morning. Pt Assistance Medication. insulin aspart U-100 (NOVOLOG FLEXPEN U-100 INSULIN) 100 unit/mL (3 mL) Inject 8 Units subcutaneously daily with dinner. Patient assistance. (will switch from Humalog sample to Novolog when supply arrives) semaglutide (OZEMPIC) 1 mg/dose (4 mg/3 mL) pen injector Inject 1 mg subcutaneously one time a week. atorvastatin (LIPITOR) 40 mg tablet Take 40 mg by mouth once daily. azelastine-fluticasone (DYMISTA) 137-50 mcg/spray spry Use 1 [place] in each nostril twice daily. cholecalciferol, vitamin D3, (VITAMIN D3 ORAL) Take 2,000 Units by mouth once daily. LOW-DOSE ASPIRIN ORAL Take 81 mg by mouth once daily. insulin needles, DISPOSABLE, 31 gauge x 5/16 ndle Test blood sugar twice a day DX:E11.49 nitroglycerin sublingual (NITROQUICK) 0.4 mg SL tablet Dissolve 1 tablet under the tongue as neededfor Chest Pain. If no pain relief call 911. MULTIVITAMIN TAB Take one(1) tablet daily. FAMILY HISTORY Problem Relation Age of Onset Coronary Artery Disease Father age 69 Diabetes Father Breast Cancer Mother age 75 Diabetes Mother GI Brother Social History Tobacco Use Smoking status: Former Current packs/day: 0.00 Average packs/day: 3.0 packs/day for 20.0 years (60.0 ttl pk-yrs) Types: Cigarettes Start date: 11/17/1953 Quit date: 11/17/1974 Years since quittin.7 Smokeless tobacco: Never Substance Use Topics Alcohol use: No Drug use: No BP 118/64 Pulse 73 Resp 20 SpO2 94% Physical Exam Vitals reviewed. Constitutional: Appearance: Normal appearance. Cardiovascular: Rate and Rhythm: Normal rate and regular rhythm. Heart sounds: Murmur heard. Pulmonary: Effort: Pulmonary effort is normal. Breath sounds: Normal breath sounds. No wheezing, rhonchi or rales. Skin: General: Skin is warm and dry. Neurological: Mental Status: He is alert. Psychiatric: Mood and Affect: Mood normal. Health maintenance reviewed with patient: Depression Screening Never done Anxiety Screening Never done LDL Cholesterol due on 11/15/2022 Advance Directive Discussion due on 11/17/2023 HbA1C due on 04/12/2024 Covid-19 Vaccine(3 - season) due on 07/18/2024 Influenza Vaccine(1) due on 07/18/2024 Dilated Retinal Exam due on 08/04/2024 RSV Vaccine(1 - 1-dose 60+ series) due on 10/13/2024 Shingrix Vaccine(2 of 3) due on 10/13/2024 Diabetic Foot Exam due on 09/22/2024 DTaP,Tdap,Td Vaccine(3 - Td or Tdap) due on 03/27/2034 Pneumococcal Vaccine: 65+ Completed DATA REVIEWED: Most recent labs ASSESSMENT/PLAN: 1. Type 2 diabetes mellitus with neurological manifestations, controlled ([facility]) - ICD9: 250.60, ICD10: E11.49 (primary diagnosis) - Control undetermined, due for labs - Continue current medications - HEMOGLOBIN A1C 2. CKD (chronic kidney disease) stage 4, GFR 15-29 ml/min ([facility]) - ICD9: 585.4, ICD10: N18.4 - eGFR: Worsening - Counseled on avoiding NSAIDs, adequate hydration - Counseled on low sodium diet - recheck today, may need referral to nephrology - COMPREHENSIVE METABOLIC PANEL 3. Chronic diastolic CHF (congestive heart failure) (HCC) - ICD9: 428.32, 428.0, ICD10: I50.32 Stable 4. Essential hypertension - ICD9: 401.9, ICD10: I10 - Controlled - Continue current medications - Recommend home blood pressure monitoring, to bring results to next visit - Encouraged sodium restriction, DASH or Mediterranean diet 5. Atrial fibrillation, unspecified type (HCC) - ICD9: 427.31, ICD10: I48.91 Stable 6. Morbid obesity (HCC) - ICD9: 278.01, ICD10: E66.01 Stable 7. Encounter for immunization - ICD9: V03.89, ICD10: Z23 - INFLUENZA VACCINE, PRSV FREE, AGE 65+ YR, HIGH DOSE, TRIVALENT (FLUZONE HIGH-DOSE) Prescription instructions reviewed with patient as applicable. Potential red flag symptoms discussed with the patient. Reviewed appropriate action plan to take if red flag symptoms occur. Patient agreeable to treatment plan. Katherin Mckinnon APRN.RAJWINDER documented in this encounterKing'S [facility] [place]09-06-2024 Telephone encounter Note * Telephone Encounter - Deisi Morelos RN - 07/23/2024 4:42 PM EDT The patient has been identified by name and date of : Yes Caregiver verified no other encounters exist for this prescription request: Yes Caregiver confirmed with patient/requestor that no other refills are due, in the near future, with this provider at this time: Yes The last office visit in the department: 10/13/2023 Does the patient have a future office visit with this provider/department: Yes 07/28/2024 Requested Prescriptions Pending Prescriptions Disp Refills blood sugar diagnostic (TRUE METRIX GLUCOSE TEST STRIP) test strip 100 Strip 5 Sig: Test twice daily. Dx: E11.49. Insulin: Yes. Deisi Morelos RN July 23, 2024 4:43 PM [facility]09-06-2024 Miscellaneous Notes* Telephone Encounter - Deisi Morelos RN - 07/23/2024 4:42 PM EDT The patient has been identified by name and date of : Yes Caregiver verified no other encounters exist for this prescription request: Yes Caregiver confirmed with patient/requestor that no other refills are due, in the near future, with this provider at this time: Yes The last office visit in the department: 10/13/2023 Does the patient have a future office visit with this provider/department: Yes 07/28/2024 Requested Prescriptions Pending Prescriptions Disp Refills blood sugar diagnostic (TRUE METRIX GLUCOSE TEST STRIP) test strip 100 Strip 5 Sig: Test twice daily. Dx: E11.49. Insulin: Yes. Deisi Morelos RN July 23, 2024 4:43 PM documented in this encounter[facility] [place] Telephone encounter Note * Telephone Encounter - Kev Mauricio MA - 05/17/2024 2:24 PM EDT Picked up by patient's sister in law Latesha [facility] [place]07-01-2024 Miscellaneous Notes* Telephone Encounter - Kev Mauricio MA - 05/17/2024 2:24 PM EDT Picked up by patient's sister in law Latesha * Telephone Encounter - Gretchen Nath LPN - 05/13/2024 11:24 AM EDT Patient assistance medications have been received 1 box of flexpens phoned patient and notified him of patient assistance medication that has arrived and he can pick these up. Gretchen Nath LPN documented in this encounterKing[facility] [place]06-27-2024 Telephone encounter Note * Telephone Encounter - Gretchen Nath LPN - 05/13/2024 11:24 AM EDT Patient assistance medications have been received 1 box of flexpens phoned patient and notified him of patient assistance medication that has arrived and he can pick these up. Gretchen Nath LPN [facility] [place]06-17-2024 Telephone encounter Note* Telephone Encounter - Ciera Conner LPN - 05/03/2024 3:17 PM EDT This was signed and picked up by pt's sister in law. Pts spouse is here but in the car. [facility] [place]06-17-2024 Miscellaneous Notes* Telephone Encounter - Ciera Conner LPN - 05/03/2024 3:17 PM EDT This was signed and picked up by pt's sister in law. Pts spouse is here but in the car. * Telephone Encounter - Ciera Conner LPN - 04/30/2024 1:46 PM EDT This is in the fridge on the left side. Pt's spouse notified this is ready for pick pack worker. * Telephone Encounter - Ciera Conner LPN - 04/30/2024 10:09 AM EDT Rec'd meds from [employer] Tresiba u200 5 boxes lot number [id number] exp date is 05/16/26 Also 4 boxes of ozempic 4mg/3ml lot number is [id number] and ext date 09/16/2026. documented in this encounterKing[facility] [place]06-14-2024 Telephone encounter Note * Telephone Encounter - Ciera Conner LPN - 04/30/2024 1:46 PM EDT This is in the fridge on the left side. Pt's spouse notified this is ready for pick pack worker. [facility] [place]-14-[facility]24 Telephone encounter Note* Telephone Encounter - Ciera Conner LPN - 04/30/2024 10:09 AM EDT Rec'd meds from [employer] Tresiba u200 5 boxes lot number [id number] exp date is 05/16/26 Also 4 boxes of ozempic 4mg/3ml lot number is [id number] and ext date 09/16/2026. [facility] [place]-30-[facility]24 Telephone encounter Note* Telephone Encounter - Kev Mauricio MA - 04/15/2024 2:04 PM EDT Requested Prescriptions Pending Prescriptions Disp Refills doxazosin (CARDURA) 2 mg tablet 90 tablet 3 Sig: Take 1 tablet by mouth daily at bedtime. Date of last office visit in primary care: 10/13/2023 Date of next office visit in primary care: Visit date not found Please advise. Thank you. Kev Mauricio MA. [facility] [place]05-30-2024 Miscellaneous Notes* Telephone Encounter - Kev Mauricio MA - 04/15/2024 2:04 PM EDT Requested Prescriptions Pending Prescriptions Disp Refills doxazosin (CARDURA) 2 mg tablet 90 tablet 3 Sig: Take 1 tablet by mouth daily at bedtime. Date of last office visit in primary care: 10/13/2023 Date of next office visit in primary care: Visit date not found Please advise. Thank you. Kev Mauricio MA. * Telephone Encounter - Chen Reeder - 04/15/2024 1:57 PM EDT Patient has been identified by name and date of : Yes Spouse phones for refill(s): Requested Prescriptions Pending Prescriptions Disp Refills doxazosin (CARDURA) 2 mg tablet 90 tablet 3 Sig: Take 1 tablet by mouth daily at bedtime. Date of last office visit in primary care: 10/13/2023 Date of next office visit in primary care: Visit date not found [facility] Please advise. Thank you. Chen Reeder. documented in this encounterKing[facility] [place]05-30-2024 Telephone encounter Note * Telephone Encounter - Chen Reeder - 04/15/2024 1:57 PM EDT Patient has been identified by name and date of : Yes Spouse phones for refill(s): Requested Prescriptions Pending Prescriptions Disp Refills doxazosin (CARDURA) 2 mg tablet 90 tablet 3 Sig: Take 1 tablet by mouth daily at bedtime. Date of last office visit in primary care: 10/13/2023 Date of next office visit in primary care: Visit date not found [facility] Please advise. Thank you. Chen Reeder. [facility] [place]05-11-2024 Discharge summary Author Jerry Jimenes [facility] March 27, 2024 2:50pm Note Date/Time March 27, 2024 12:47 pm [facility] Medical Records Department [address] [place] [address] Emergency Department Summary 03/27/24 MR#: [id number] Acct: [id number] Name: MELISSADEVINFEDERICO Rep #:[id number] : 1935 88 From: Jerry Jimenes MD PCP: Dr. Nithin Acevedo MD Status:R EG ER Location: ED HPI <ANSELMO Kenney - Last Filed: 03/27/24 14:46> History of Present Illness Chief Complaint: Abscess Narrative Narrative: Patient presenting today due to concerns for infection to his right fourth toe that he noticed today. He reports that 3 days ago his puppy bit his toe. Todayhe noticed the area was red and slightly painful. He did go to urgent care thismorning but they were concerned that he might need a x-ray and encouraged him tocome in for evaluation. He does have a history of diabetes mellitus. He deniesany fevers, chills, abdominal pain, nausea, and vomiting. [facility] <ANSELMO Kenney - Last Filed: 03/27/24 14:46> [facility] Medical History Afib CAD (coronary artery disease) CHF (congestive heart failure) Diabetes Home Medications Lovastatin [Mevacor] 40 mg PO QHS CHOLESTEROL 07/02/16 [History Last Taken 07/11/16] doxazosin 2 mg tablet 2 mg PO QHS PROSTATE 07/02/16 [History Last Taken 07/11/16] multivitamin with folic acid 400 mcg tablet (Thera) 1 tab PO DAILY SUPPLEMENT 07/02/16 [History Last Taken 07/11/16] furosemide 20 mg tablet 20 mg PO DAILY BP 04/01/18 [History Last Taken Unknown] nitroglycerin 0.4 mg sublingual tablet (Nitrostat) 0.4 mg sublingual PRN PRN CHEST PAIN 04/01/18 [History Last Taken Unknown] spironolactone 25 mg tablet 25 mg PO QHS BP 04/01/18 [History Last Taken Unknown] warfarin 5 mg tablet (Jantoven) 10 mg PO DAILY BLOOD THINNER 04/01/18 [History Last Taken 04/09/18] albuterol sulfate 90 mcg/actuation aerosol inhaler 2 puff inhalation Q4H PRN PRNWheezing ##1 01/07/19 [Rx Last Taken Unknown] vitamin E (dl, acetate) 90 mg (200 unit) capsule 200 unit PO DAILY 01/07/19 [History Last Taken Unknown] amoxicillin 875 mg-potassium clavulanate 125 mg tablet 1 tab PO BID 10 days #19 tabs 03/27/24 [Rx Last Taken Unknown] apixaban 2.5 mg tablet (Eliquis) 2.5 mg PO BID 03/27/24 [History Last Taken Unknown] dapagliflozin propanediol 5 mg tablet (Farxiga) 5 mg PO QHS 03/27/24 [History Last Taken Unknown] ferrous sulfate 137 mg (45 mg iron) tablet,extended release 137 mg PO DAILY 03/27/24 [History Last Taken Unknown] insulin degludec 100 unit/mL subcutaneous solution (Tresiba U-100 Insulin) 40 unit subcut DAILY 03/27/24 [History Last Taken Unknown] Allergy/AdvReac Type Severity Reaction Status Date / Time finasteride [From Proscar] Allergy Hives Verified 03/27/24 12:35 Social History Smoking Status: Former smoker ROS <ANSELMO Kenney - Last Filed: 03/27/24 14:46> ROS ED Constitutional Constitutional ED: Denies chills or fever(s) Cardiovascular Cardiovascular: Denies chest pain Respiratory/Chest Respiratory/Chest: Denies dyspnea Gastrointestinal Gastrointestinal: Denies abdominal pain, nausea or vomiting Musculoskeletal Musculoskeletal: Reports arthralgias Integumentary Reports other Details: Right fourth toe wound Neurologic Neurologic: Denies weakness EXAM <ANSELMO Kenney - Last Filed: 03/27/24 14:46> Physical Exam Const Vital Signs: 03/27/24 12:33 03/27/24 12:33 03/27/24 13:33 Temperature 97.6 F L 97.6 F L 97.8 F Temperature Source Temporal Temporal Temporal Pulse Rate 73 73 75 Respiratory Rate 16 16 18 Blood Pressure 155/47 H 155/47 H 152/50 H Blood Pressure Mean 83 83 84 Pulse Ox 100 100 99 Oxygen Delivery Method Room Air Room Air Room Air 03/27/24 14:00 Temperature 98.5 F Temperature Source Temporal Pulse Rate 69 Respiratory Rate 13 Blood Pressure 127/74 H Blood Pressure Mean 91 Pulse Ox 97 Oxygen Delivery Method Room Air Positive well nourished, well developed and no apparent distress General Appearance ED: well developed HEENT Reports normocephalic and head/scalp atraumatic Mouth ED: Yes moist mucous membranes normal Eyes PERRL and EOMs intact bilaterally Neck full ROM and supple Chest Wall inspection of chest normal Resp normal respiratory effort and clear to auscultation bilaterally Cardio regular rate and regular rhythm Back/Spine normal ROM and normal to inspection Extremity full ROM Extremity Narrative: Erythema and warmth to the right fourth toe and dorsum of the right foot, small wound to the dorsal aspect of the right fourth toe, no purulent discharge. Neuro oriented x3, CN's II-XII intact bilaterally, moves all extremities, no focal motor deficits and no sensory deficits noted Sensorium / Orientation: awake and alert Psych mental status grossly normal and thought process normal <Jerry Jimenes MD - Last Filed: 03/27/24 14:50> Physical Exam Const Vital Signs: 03/27/24 12:33 03/27/24 12:33 03/27/24 13:33 Temperature 97.6 F L 97.6 F L 97.8 F Temperature Source Temporal Temporal Temporal Pulse Rate 73 73 75 Respiratory Rate 16 16 18 Blood Pressure 155/47 H 155/47 H 152/50 H Blood Pressure Mean 83 83 84 Pulse Ox 100 100 99 Oxygen Delivery Method Room Air Room Air Room Air 03/27/24 14:00 Temperature 98.5 F Temperature Source Temporal Pulse Rate 69 Respiratory Rate 13 Blood Pressure 127/74 H Blood Pressure Mean 91 Pulse Ox 97 Oxygen Delivery Method Room Air [facility] <ANSELMO Kenney - Last Filed: 03/27/24 14:46> [facility] Narrative Medical decision making narrative: Patient presenting today with concerns for cellulitis to his right fourth toe after his puppy bit his toe 3 days ago. He is well-appearing and in no acute distress, vitals are unremarkable. He does not have any other acute complaints. He originally went to urgent care but they did not have x-ray capabilities and recommended he come here. Patient does have erythema to the dorsal aspect of the fourth toe and dorsum of the foot, no purulent discharge from the wound. Tetanus is not up-to-date, this will be updated here. He will be started on Augmentin with first dose here. X-ray obtained to rule out osteomyelitis and is negative for any acute findings. Return instructions discussed, encouraged follow-up with PCP. Patient discharged home in stable condition. Lab Data Attestation: I reviewed the patient's lab results. Labs: Laboratory Results - last 24 hr 03/27/24 12:51 POC Glucose 132 H Radiography X-Ray: Read by ED Physician Diagnostic Testing: Clinical Impression(s) from Imaging Studies Foot X-Ray 03/27/24 13:00 IMPRESSION: No demonstrated fracture or suspicious osseous lesion Dorsal soft tissue swelling without subcutaneous emphysema Polyarticular arthrosis with calcaneal spurs Electronically Signed: Dylan Perez MD at 14:27 EDT Reading Location ID and State: [facility] / [place] , Service support , <Jerry Jimenes MD - Last Filed: 03/27/24 14:50> MDM MDM Narrative Medical decision making narrative: Patient presenting today with concerns for cellulitis to his right fourth toe after his puppy bit his toe 3 days ago. He is well-appearing and in no acute distress, vitals are unremarkable. He does not have any other acute complaints. He originally went to urgent care but they did not have x-ray capabilities and recommended he come here. Patient does have erythema to the dorsal aspect of the fourth toe and dorsum of the foot, no purulent discharge from the wound. Tetanus is not up-to-date, this will be updated here. He will be started on Augmentin with first dose here. X-ray obtained to rule out osteomyelitis and isnegative for any acute findings. This was read by the ED physician and interpreted by the ED physician and discussed. Return instructions discussed, encouraged follow-up with PCP. Patient discharged home in stable condition. Dr. Jimenes: I have personally performed a face to face assessment of the patient and have reviewed the ADAM Note. I performed a substantive portion of the visit including all aspects of the following. My christianson findings include: History is patient with past medical history of diabetes, had a his puppy bite his fourth toe on his right foot 3 days ago. He has developed pain and swellingof the dorsum of his right foot at the base of the fourth toe. He denies any fevers or chills, no nausea or vomiting, no other symptoms. Exam is afebrile. Vital signs noted. Nontoxic-appearing. Examination of the right foot does show mild swelling of the dorsum of the right foot with erythema, no crepitance. There are puncture wounds on the fourth digit, but no bony tenderness. Medical Decision Making: In the differential would be fracture of toe versus cellulitis. I have low suspicion for necrotizing fasciitis. X-rays were obtained of the right foot in 3 views and interpreted by myself independently asno evidence of gas in the tissue, no fracture. I reviewed the radiology report which confirms my independent interpretation. I do feel that the patient meritsoutpatient treatment. He has a brick sorter with whom he can follow-up. They areto call on Friday. Return instructions to the emergency department were reviewed. Currently he is afebrile and not tachycardic so I do not feel that laboratory work is indicated. Disposition is discharged in stable condition. Other additions or changes: [None] Lab Data Labs: Laboratory Results - last 24 hr 03/27/24 12:51 POC Glucose 132 H Radiography Diagnostic Testing: Clinical Impression(s) from Imaging Studies Foot X-Ray 03/27/24 13:00 IMPRESSION: No demonstrated fracture or suspicious osseous lesion Dorsal soft tissue swelling without subcutaneous emphysema Polyarticular arthrosis with calcaneal spurs Electronically Signed: Dylan Perez MD at 14:27 EDT , Discharge Plan Triage Chief Complaint: Abscess ED Midlevel Provider: Christina Bryant ED Provider: Jerry Jimenes Dx/Rx/DC Orders Clinical Impression: Dog bite of toe, Cellulitis of foot, right Instructions: ED Cellulitis, ED Dog Bite Prescriptions: New amoxicillin-pot clavulanate 875-125 mg tablet 1 tab PO BID 10 Days Qty: 19 0RF No Action doxazosin 2 MG tablet 2 mg PO QHS Patient Comments: PROSTATE multivitamin with folic acid [Thera] 1 TABLET tablet 1 tab PO DAILY Patient Comments: SUPPLEMENT Lovastatin [Mevacor] 40 MG tablet 40 mg PO QHS Patient Comments: CHOLESTEROL warfarin [Jantoven] 5 MG tablet 10 mg PO DAILY Patient Comments: BLOOD THINNER. 10,10,7.5MG REPEAT Rx Instructions: resume 08/21 spironolactone 25 MG tablet 25 mg PO QHS nitroglycerin [Nitrostat] 0.4 MG tablet, sublingual 0.4 mg sublingual PRN PRN (Reason: CHEST PAIN) furosemide 20 MG tablet 20 mg PO DAILY vitamin E (dl, acetate) 200 UNIT capsule 200 unit PO DAILY albuterol sulfate 1 INHALER inhaler 2 puff Inhalation Q4H PRN PRN (Reason: Wheezing) Qty: 1 0RF insulin degludec [Tresiba U-100 Insulin] 100 unit/mL solution 40 unit subcut DAILY Eliquis 2.5 mg tablet 2.5 mg PO BID dapagliflozin propanediol [Farxiga] 5 mg tablet 5 mg PO QHS ferrous sulfate 137 mg (45 mg iron) tablet extended release 137 mg PO DAILY Primary Care Provider: Nithin Acevedo Referrals: Nithin Acevedo MD [Primary Care Provider] - 5-7 Days Activity Restrictions/Additional Instructions: Please follow-up with your PCP, take antibiotics as directed. Return for any worsening of your symptoms, fevers, or chills. Disposition Disposition: Home, Self Care What to do if you have Problems For any increased pain, shortness of breath, bleeding, nausea or vomiting, chestpain, or any unexpected problems, contact your Primary Care Provider. Call [facility] ([phone]) or report to the closest Emergency Room. Call 911 if necessary. 03/27/24 1450 <Electronically signed by Jerry Jimenes MD> Cosigner Signature (if applicable): 03/27/24 1446 <Electronically signed by Christina BRIONES> CC: Dr. Nithin Acevedo MD ~ Signed [facility] Work Phone: 1(154) 685-321605-11-2024 History of Present illness Narrative* Sujata Begum APRN.HERBICIDE SPRAYER - 03/27/2024 12:17 PM EDT Patient came in with complaints of possible infection. Patient says his puppy bit him several days ago. Patient's not sure exactly when. Patient is diabetic. Patient foot is red on several of the toes and working its way up the foot. Upon palpating patient was in extreme pain. There is swelling which is possible that patient's normal but due to the amount of pain and redness swelling of his leg and patient being diabetic patient is being referred to the emergency room. We do not have x-ray available or labs at this time. Patient is okay with this care plan caregiver will take him documented in this [facility] [place] Miscellaneous Notes* Telephone Encounter - Ciera Conner LPN - 02/05/2024 1:52 PM EDT Spouse picked this up. * Telephone Encounter - Ciera Conner LPN - 02/04/2024 4:23 PM EDT Pr spouse notified. * Telephone Encounter - Ciera Conner LPN - 02/04/2024 11:23 AM EDT Rec'd one box of novolog flex pen. Lot number [id number] Exp date 04/16/2026. documented in this encounterKing'S [facility] [place]03-07-2024 Miscellaneous Notes* Telephone Encounter - Ciera Conner LPN - 01/22/2024 4:20 PM EST Pt's spouse has picked up his tresiba and ozempic. She reports pts blood sugars have been running 120-130 fasting in the am. He has not been taking novalog. Pt has appt with [facility] 04/13/24. There are fasting labs and urine test to complete about a week before. * Telephone Encounter - Ciera Conner LPN - 01/22/2024 12:32 PM EST Called [employer]. The novalog is in process of being shipped. Called pt and spouse says he doesn't take the novalog any longer. * Telephone Encounter - Poppy Elise MSW - 01/22/2024 11:41 AM EST Sw spoke with [employer] and they do not know what happened with patient novolog. Novolog rep asks that nursing staff would call with packing slip information to see if there is a number on that they can figure out what happened with novolog shipment. [employer] ph. [phone]. * Telephone Encounter - Ciera Conner LPN - 01/22/2024 10:43 AM EST Rec'd from [employer] 5 boxes of tresiba lot number [id number] exp date 03/16/2026 4 boxes of ozempic 4mg lot number [id number] and exp date 08/16/2026. documented in this encounterKing'S [facility] [place]03-07-2024 Miscellaneous Notes* Telephone Encounter - Poppy Elise MSW - 01/22/2024 12:[address] Acevedo note 01/22/24 in regards to [employer] PAP medication assistance for ozempic, novolog, and tresiba. * Telephone Encounter - Poppy Elise MSW - 01/21/2024 2:49 PM EST Claude noted patient approval through [employer] for Tresiba,Novolog, and Ozempic. Claude will keep this note open until medications are received by clinic, in case need to check on shipping status of medications and any other approval of application issues. documented in this encounterKing'[facility] [place]02-29-2024 Miscellaneous Notes* Telephone Encounter - Ciera Conner LPN - 01/15/2024 3:18 PM EST Rec'd fax from [employer] for 2023 pt's ID [id number]. documented in this [facility]12-20-2023 Miscellaneous Notes* Telephone Encounter - Poppy Elise MSW - 11/05/2023 11:36 AM EST Sw received [employer] application back from patient for Tresiba, Novolog, and Ozempic. Sw noted that page 2 is missing from application. Sw will mail out page 2 of application. Sw noted that she will be on vacation next week. If and when patient/spouse complete page 2 they can send it back to Dr. Acevedo office. Claude told spouse that she would place it in mail today for him to sign. Claude will take forms to Dr. Acevedo office for prescriptions to be completed on forms. Please hold forms until page 2 is returned to office. documented in this encounterKing'S [facility] [place]12-07-2023 Miscellaneous Notes* Telephone Encounter - Ciera Conner LPN - 10/23/2023 2:13 PM EST This was picked up today. Also reminded to complete the pt assistance form when she gets it for 2023. CLAUDE mailed to pts home 10/22/23. * Telephone Encounter - Ciera Conner LPN - 10/16/2023 2:25 PM EST This is ready for pick pack worker in the fridge on the left side. Pts spouse notified. * Telephone Encounter - Ciera Conner LPN - 10/16/2023 11:26 AM EST Rec'd 4 boxes of ozempic 1 mg/3ml (4mg/3 ml pen). Lot number is [id number] Exp date 03/16/2026. documented in this encounterKing'[facility] [place]12-06-2023 Miscellaneous Notes* Telephone Encounter - Poppy Elise MSW - 10/22/2023 10:03 AM EST Claude mailed [employer] PAP forms to patient home. * Telephone Encounter - Nithin Acevedo MD - 10/21/2023 9:44 AM EST Noted. Schedule May follow up with myself. Fasting labs ordered for March 2024. * Telephone Encounter - Poppy Elise MSW - 10/20/2023 9:25 AM EST Claude spoke with patient and then spouse regarding reapplying for this next year to [employer] P[employer]. Patient had been on program for Ozempic,tresiba, and novolog. Spouse notes patient has not been taking his novolog. Spouse notes that she does not believe anyone has told him to stop taking novolog, he just did that on his own. Sw notes that she will mail [employer] application to patient home for patient to complete and then bring back forms to Dr. Acevedo office for prescription completion. Claude will also forward note to Dr. Acevedo to update his office that spouse mentioned patient has not been taking novolog. documented in this encounterKing'S [facility] [place]11-27-2023 History of Present illness Narrative* Seven, Katherin, ANDREINA.HERBICIDE SPRAYER - 10/13/2023 3:05 PM EST Federico Hu is a 88 year old male here for a Medicare wellness visit. Medicare Health Risk Assessment General Health Good Exercise: Minutes/Day Does not exercise Exercise: Days/Week No Alcohol: Daily Use No Alcohol: Drinks/Day Does not drink Alcohol: 6 or more drinks No Feel off balance occasional Concerns: Teeth/Dentures No Concerns: Sexual function No Troubled by feelings No Frequency: Eating healthy diet Some days ADLs requiring help Yes Safety precautions in home/vehicle Yes Smoke, vape, chews tobacco No Difficulty hearing Wears hearing aids Difficulty seeing No Current Providers Specialists: I have reviewed specialist-related care of the patient in the medical record. Current care team: Patient Care Team: Nithin Acevedo MD as PCP - General Outside specialists seen: commutator operator-Dr. Strickland Risk Professional- Dr. Porras [facility] Medical/Family history review Reviewed and updated problem list, medical/surgical/family/social history, medications, and allergies. Opioid use review Opioid Medications (last 90 days) Some values may be hidden. Unless noted otherwise, only the newest values recorded on each date aredisplayed. Opioid Medications No data to display. Depression screening Depression Screening PHQ-2 Score 05/09/2023 0 Depression screening tool completed and reviewed. Based on score and interview, patient is not at risk for depression. Screening tool discussed with patient, and I recommended no further interventionat this time. Cognitive screening Mini Cog Score: 4 Cognitive screening reviewed and no further action needed (score 3-5) Functional Observation Was the patient's timed Up & Go test unsteady or ? 12 seconds? No Advance Care Planning Surrogate decision maker and/or advance care plan documented Measurements BP 128/66 Pulse 52 Resp 16 Ht 5' 11.5 (1.82m) Wt 373 lb (169.2kg) SpO2 97% BMI 51.30 kg/(m^2). Additional screenings: No results found. Assessment/Plan Medicare annual wellness visit, subsequent (Z00.00) - Counseled on healthy diet and regular exercise - Fall avoidance information provided - Personalized prevention plan provided - Discussed need for and benefit of weight loss. BMI 51.30 kg/(m^2) Additional Concerns The following concerns were also discussed with the patient: HTN-Medication changes:No Taking all medications as prescribed: Yes Side effects: No Home BP's: No Denies: headache, chest pain, palpitations, and peripheral edema. Last 3 Encounter BP Readings: Date: BP: 10/13/2023 128/66 05/09/2023 111/51 06/12/2022 130/68 Diabetes: Home blood sugar readings: fasting average in the low 100's Hypoglycemia: No He is compliant with medication(s) and is tolerating med(s) without any side effects except he forgets to take Novolog with supper frequently Increased thirst: No Urinary frequency: No Nocturia, fatigue: No Unintentional weight loss: No Blurred vision: No Numbness, tingling or pain in extremities: No Ulcers or sores on feet: No Last Ophthalmology exam: within the past 6 months Last Podiatry exam:[id number]} Patient's last HgA1C : Hemoglobin A1C (%) Date Value 11/15/2021 9.3 06/01/2021 8.0 Hemoglobin A1C (POCT) (%) Date Value 05/09/2023 6.5 06/12/2022 6.9 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 He was started on Farxiga. Chronic CHF: stable. Chronic SOB with exertion, no worse than usual. No SOB at rest. No significantweight changes, PND, orthopnea. Anemia: commutator operator is monitoring. Denies dizziness, lightheadedness, feeling faint, syncope. BP 128/66 Pulse (!) 52 Resp 16 Ht 181.6 cm (5' 11.5) Wt (!) 169.2 kg (373 lb) SpO2 97% BMI 51.30 kg/m Physical Exam Vitals reviewed. Constitutional: General: He is not in acute distress. Appearance: He is obese. He is not ill-appearing. Cardiovascular: Rate and Rhythm: Normal rate and regular rhythm. Heart sounds: Murmur heard. Pulmonary: Effort: Pulmonary effort is normal. Breath sounds: No wheezing, rhonchi or rales. Musculoskeletal: Right lower leg: No edema. Left lower leg: No edema. Skin: General: Skin is warm and dry. Neurological: Mental Status: He is alert. Psychiatric: Mood and Affect: Mood normal. Speech: Speech normal. Behavior: Behavior normal. ASSESSMENT/PLAN: 1. Medicare annual wellness visit, subsequent - ICD9: V70.0, ICD10: Z00.00 (primary diagnosis) See medicare wellness plan 2. Type 2 diabetes mellitus with neurological manifestations, controlled (HCC) - ICD9: 250.60, ICD10: E11.49 - Controlled - Continue current medications - HEMOGLOBIN A1C (POC) 3. CKD (chronic kidney disease) stage 4, GFR 15-29 ml/min (HCC) - ICD9: 585.4, ICD10: N18.4 - eGFR: Stable - Albuminuria: due for urine ACR - Counseled on avoiding NSAIDs, adequate hydration - Counseled on low sodium diet - ACEi/ARB prescribed: Yes - SGLT2i prescribed: dapagliflozin propanediol 4. Morbid obesity (HCC) - ICD9: 278.01, ICD10: E66.01 Stable 5. Anemia, unspecified type - ICD9: 285.9, ICD10: D64.9 Stable 6. Hyperlipidemia, unspecified hyperlipidemia type - ICD9: 272.4, ICD10: E78.5 Monitored by commutator operator. Continue with current medication 7. Essential hypertension - ICD9: 401.9, ICD10: I10 - Controlled - Continue current medications - Recommend home blood pressure monitoring, to bring results to next visit - Encouraged sodium restriction, DASH or Mediterranean diet 8. Encounter for immunization - ICD9: V03.89, ICD10: Z23 - INFLUENZA VACCINE, PRSV FREE, AGE 65+ YR, HIGH DOSE, QUADRIVALENT (FLUZONE HIGH-DOSE) Katherin Amezcua APRN.CNP documented in this encounterKing'S [facility] [place]11-27-2023 Instructions* Patient Instructions* Katherin Amezcua APRN.CNP - 10/13/2023 3:05 PM EST Screening schedule The following prevention plan is recommended: RSV Vaccine(1 - 1-dose 60+ series) Never done Shingrix Vaccine(2 of 3) due on 12/09/2012 Influenza Vaccine(1) due on 07/18/2023 WHAT YOU CAN DO TO PREVENT FALLS Many falls can be prevented. By making some changes, you can lower your chances of falling. Four things YOU can do to prevent falls for you* and your caregiver 1. Begin a regular exercise program Exercise is one of the most important ways to lower your chances of falling. It makes you stronger and helps you feel better. Exercises that improve balance and coordination (like Carl Chi) are the most helpful. Lack of exercise leads to weakness and increases your chances of falling. Ask your doctor or health care provider about the best type of exercise program for you. 2. Have your health care provider review your medicines Have your doctor or pharmacist review all the medicines you take, even [id number] medicines. As you get older, the way medicines work in your body can change. Some medicines, or combinations of medicines, can make you sleepy or dizzy andcan cause you to fall. 3. Have your vision checked Have your eyes checked by an eye doctor at least once a year. You may be wearing the wrong glasses or have a condition like glaucoma or cataracts that limits your vision. Poor vision can increase your chances of falling. 4. Make your home safer About half of all falls happen at home. To make your home safer: Remove things you can trip over (like papers, books, clothes, and shoes) from stairs and places where you walk. Remove small throw rugs or use double-sided tape to keep the rugs from slipping. Keep items you use often in cabinets you can reach easily without using a step stool. Have grab bars put in next to your toilet and in the tub or shower. Use non-slip mats in the bathtub and on shower floors. Improve the lighting in your home. As you get older, you need brighter lights to see well. Hang light-weight curtains or shades to reduce glare. Have handrails and lights put in on all staircases. Wear shoes both inside and outside the house. Avoid going barefoot or wearing slippers. For more information, contact: Centers for Disease Control and Prevention www.cdc.gov/injury * This information may not apply if you have certain medical conditions. documented in this encounterKing'S [facility] [place]08-30-2023 Miscellaneous Notes* Telephone Encounter - Ciera Conner LPN - 07/16/2023 9:37 AM EDT This was picked up 07/15/23. * Telephone Encounter - Ciera Conner LPN - 07/11/2023 11:40 AM EDT Pt's spouse notified. * Telephone Encounter - Ciera Conner LPN - 07/11/2023 10:30 AM EDT Rec'd 4 boxes of ozempic 4mg /3ml. Lot number [id number] exp date 11/16/2025. documented in this encounterKing'S [facility] [place]08-01-2023 Miscellaneous Notes* Telephone Encounter - Ciera Conner LPN - 06/17/2023 3:22 PM EDT Spouse has picked this up. * Telephone Encounter - Ciera Conner LPN - 06/13/2023 1:48 PM EDT Spoke to pts spouse she says she will get next week some time. * Telephone Encounter - Ciera Conner LPN - 06/10/2023 11:37 AM EDT Message left to pt's spouse that this is available for pick pack worker. * Telephone Encounter - Ciera Conner LPN - 06/10/2023 10:54 AM EDT Rec'd 5 boxes of tresiba u200 from [employer] Lot number [id number] Exp date 05/16/2025 documented in this encounterKing'S [facility] [place]07-07-2023 Miscellaneous Notes* Telephone Encounter - Kev Mauricio Ma - 05/23/2023 3:26 PM EDT Patient notified, verbalized understanding. will pick pack worker Friday. * Telephone Encounter - Ciera Conner LPN - 05/22/2023 10:51 AM EDT Rec'd 5 boxes of insulin degludec 3x3 prefilled pens 200ml Lot number is [id number] Exp date is 01/14/2025 documented in this encounterKing'S [facility] [place]07-03-2023 Miscellaneous Notes* Telephone Encounter - Kev Mauricio Ma - 05/19/2023 11:17 AM EDT Aliza notified to pick pack worker in [facility]. * Telephone Encounter - Geneva Paez Pss - 05/19/2023 9:34 AM EDT Federico Hu is calling Nithin Acevedo MD today to request license Placard prescription. Patient's will be in the office next week and can pick pack worker then. Please call her when done. Patient has been identified by name and birthdate. Duration of symptoms: N/A Person calling: spouse: Aliza Call patient at: at home [phone] (home) [phone] (cell) Was an appointment scheduled: No Closing statement: Geneva Paez Pss documented in this encounterKing'S [facility] [place]06-22-2023 Miscellaneous Notes* Telephone Encounter - Ciera Conner LPN - 05/08/2023 8:47 AM EDT Refill order completed and faxed to [employer]. * Telephone Encounter - Ciera Conner LPN - 05/07/2023 1:19 PM EDT Rec'd via mail an automatic reorder for pts degludec. This needs completed for reorder. This will 10/16/23. documented in this encounterKing'S [facility] [place]06-06-2023 Miscellaneous Notes* Telephone Encounter - Daxa Morin LPN - 04/22/2023 12:04 PM EDT Patient has been identified by name and date of : Yes Patient phones for refill(s): Requested Prescriptions Pending Prescriptions Disp Refills doxazosin (CARDURA) 2 mg tablet 90 tablet 3 Sig: Take 1 tablet by mouth daily at bedtime. Date of last office visit in primary care: 07/09/2022 10 month follow-up: 05/09/2023 Last 2 Encounter Wt Readings: Date: Wt: 06/12/2022 155.1 kg (342 lb) 02/22/2022 163.3 kg (360 lb) Previous labs/tests for medication: Blood Pressure: BUN (mg/dL) Date Value 02/22/2022 38 11/15/2021 27 Sodium Date Value 06/04/2022 142 MEQ/L 11/15/2021 140 mmol/L Last 1 Encounter BP Readings: Date: BP: 06/12/2022 130/68 Please advise. Thank you. Daxa Morin LPN * Telephone Encounter - Zeny Kirby Pss - 04/22/2023 10:56 AM EDT Patient has been identified by name and date of : Yes Last office visit in this department: Visit date not found RX INSTRUCTIONS: Patient aware RX will be sent to pharmacy. No need to notify patient. Patient phones requesting refills as follows: scheduled with PCP 05/09/23 Requested Prescriptions Pending Prescriptions Disp Refills doxazosin (CARDURA) 2 mg tablet 90 tablet 3 Sig: Take 1 tablet by mouth daily at bedtime. Please review and advise. Zeny Kirby Pss documented in this encounterKing'S [facility] [place]03-31-2023 Miscellaneous Notes* Telephone Encounter - Ciera Conner LPN - 02/14/2023 3:05 PM EDT Spouse picked up. * Telephone Encounter - Ciera Conner LPN - 02/12/2023 1:10 PM EDT This is in the fridge on the left side ready for pick pack worker. Pts spouse notified. She says she has an appt 02/14/23 and will get it them. * Telephone Encounter - Ciera Conner LPN - 02/12/2023 11:21 AM EDT Rec'd one box of novolog flex pen from [employer]. Lot number is [id number] and exp date is 03/16/2025. documented in this encounterKing'S [facility] [place]03-24-2023 Miscellaneous Notes* Telephone Encounter - Gretchen Elam LPN - 02/07/2023 11:51 AM EDT Received 5 boxes of insulin degludec 200 unit/ml. patient takes 64 units subcutaneously every morning. Patient notified and verbalized understanding that medication is here- insulin. Gretchen Elam LPN documented in this encounterKing'S [facility] [place]03-02-2023 Miscellaneous Notes* Telephone Encounter - Ciera Conner LPN - 01/16/2023 12:21 PM EST Phone number given to pts spouse to call [employer] to check the status. Pharmacy says it should be set up with automatic refills. documented in this encounterKing'S [facility] [place]03-02-2023 Miscellaneous Notes* Telephone Encounter - Ciera Conner LPN - 01/16/2023 12:10 PM EST This was picked up. * Telephone Encounter - Ciera Conner LPN - 01/08/2023 10:45 AM EST Pt spouse notified this is ready for pick pack worker in the fridge on the left side. She reports she will probably get this next week. * Telephone Encounter - Ciera Conner LPN - 01/08/2023 10:17 AM EST Rec'd 4 boxes of ozempic from [employer]. Lot number is [id number] Exp date is 06/16/2025 documented in this encounterKing'S [facility] [place]01-23-2023 Miscellaneous Notes* Telephone Encounter - Irma Pop RPh - 12/09/2022 11:29 AM EST Will review application on when PharmD is in the office and refax at that time. Irma Pop PharmD, BCPS Primary Care Clinical Pharmacist * Telephone Encounter - Krissy Amor RN - 12/09/2022 9:29 AM EST Spouse (Aliza) calls to request Tresiba application be resubmitted to [facility]. She reports that the dosing instructions for Tresiba needs to be filled out and re-faxed. Krissy Amor RN documented in this encounterKing'S [facility] [place]01-12-2023 Miscellaneous Notes* Telephone Encounter - Irma Pop RPh - 11/28/2022 9:25 AM EST Patient's dropped off envelope addressed to Ebonie Alston, with PAP application renewal for Ozempic, Tresiba, and Novolog for 2022. Application was completed, signed by PCP, and faxed to [email or web address] today. Called , Aliza, but unable to reach. LMOM letting her know paperwork was submitted today and to call [email or web address] in ~3 weeks if has not heard anything by then. Also informed her that since Adriana has signed off from [facility] with patient that any f/up questions regarding application should be directed to Dr. Acevedo's clinical staff. Future applications will also need to be completed by clinical staff. Application copy saved in [employer] drawer but original application sent to scanning. Irma Pop PharmD, BCPS Primary Care Clinical Pharmacist documented in this encounterKing'S [facility] [place]12-16-2022 Miscellaneous Notes* Telephone Encounter - Ciera Conner LPN - 11/01/2022 2:58 PM EST Spouse picked up. * Telephone Encounter - Ciera Conner LPN - 11/01/2022 11:03 AM EST This is ready for pick pack worker in the fridge on the left side. Pts spouse notified. * Telephone Encounter - Adriana Garrison RPh - 11/01/2022 10:40 AM EST Med list updated to reflect supply received from [employer]. Keti Dubow, PharmD, BCACP Primary Care Clinical Pharmacist * Telephone Encounter - Ciera Conner LPN - 11/01/2022 10:27 AM EST Rec'd 3 boxes of tresiba 200 units/ml (U200) Lot number [id number]. Exp date is 11/16/2024. Please review documented in this encounterKing'S [facility] [place]12-15-2022 Miscellaneous Notes* Telephone Encounter - HERNÁN Doyle - 10/31/2022 3:25 PM EST Sw tried call again to [employer]. Sw waited on hold and was not able to speak with rep. SW will try call another time. * Telephone Encounter - Bear Good RN - 10/31/2022 2:05 PM EST reports she called the company, the day before yesterday, and an automated voice answered and said it was shipped [employer]. tried to get the tracking number but just couldn't hear it. * Telephone Encounter - Ciera Conner LPN - 10/31/2022 11:17 AM EST This was filed in scanned documents. Printed and faxed again noting NOT RECD AT THIS TIME. * Telephone Encounter - HERNÁN Doyle - 10/29/2022 12:15 PM EST SW tried call again to [employer]. Waited extended time no answer. * Telephone Encounter - HERNÁN Doyle - 10/28/2022 3:09 PM EST Claude called [employer] again and waited extended time, no answer. Claude will try call another time. * Telephone Encounter - HERNÁN Doyle - 10/28/2022 11:25 AM EST Claude called [employer] to check on Tresiba shipment. No answer Sw waited 30+ minutes. Claude will try call again later. * Telephone Encounter - HERNÁN Doyle - 10/28/2022 10:04 AM EST Claude reviewed Dr. Acevedo note from 10/03/21. Ryan Alston had sent Dr. Palacios office refill/reorder formfor tresiba and on 10/07/22 Ciera submitted refill reorder form for tresiba. Ciera, Can you verify that we have not received this shipment?? Claude can then check with [employer] to seewhat is going on with tresiba shipment. Poppy * Telephone Encounter - Homer Smith LPN - 10/28/2022 9:49 AM EST Patient Aliza calling asking if Tresiba has come in yet from patient assistance? She said her has not had any for 3 days now. * Telephone Encounter - Anthony Ardon RN - 10/25/2022 9:22 AM EST Pts called in and reports that Pt receives his Tresebia from providers office. She states he took his last shot yesterday, and is due today. She was asking if providers office had received his medication. Please call as soon as possible. documented in this encounterKing'S [facility] [place]11-19-2022 Miscellaneous Notes* Telephone Encounter - Nithin Acevedo MD - 10/05/2022 9:53 AM EST Form completed. * Telephone Encounter - Kev Mauricio Ma - 10/04/2022 1:19 PM EST Form printed - filled out and given to PCP for review. * Telephone Encounter - Adriana Garrison RPh - 10/04/2022 12:45 PM EST Refill form can be printed from website [email or web address] Once form is complete, it can be signed by provider and faxed. Of note, Patient will also need to renew for [employer] if he wishes to stay in the program for 2022. Recommend that when patient completes new application, to check box for automatic refills to be sent to the office so forms will not be needed with every refill request. Ryan GamaD, BCACP Primary Care Clinical Pharmacist * Telephone Encounter - Katherin Amezcua APRN.CNP - 10/04/2022 10:16 AM EST The order states it is a patient assistance medication. Does the refill need printed? Katherin Amezcua APRN.CNP * Telephone Encounter - Geneva Alvarez - 10/03/2022 1:43 PM EST Pt spouse called to request a prescription for Tresiba. He is almost out. documented in this encounterKing'S [facility] [place]10-14-2022 Miscellaneous Notes* Telephone Encounter - Ciera Conner LPN - 08/30/2022 10:21 AM EDT Pt's spouse picked up. * Telephone Encounter - Ciera Conner LPN - 08/28/2022 11:17 AM EDT Pt spouse notified this is ready for pick pack worker. It is in the fridge on the left side. * Telephone Encounter - Ciera Conner LPN - 08/28/2022 10:33 AM EDT Rec'd 4 boxes of ozempic 4mg /3lm Lot number [id number] Exp date of 02/14/2025. documented in this encounterKing'S [facility] [place]10-04-2022 History of Present illness Narrative* Adriana Garrison, [facility] - 08/20/2022 2:30 PM EDT Primary Care Pharmacy Visit CC (Reason for Consult): DM Goal: A1c<8% Last Collaborating Physician/PARK WORKER SUPERVISOR Visit: 06/12/22 Federico Hu is a 86 year old male presenting for follow up visit by telephone. Patient consents to pharmacy collaborative practice agreement. At last visit with pharmacy on 06/25/22 the following changes were made: none. INTERIM HISTORY: Reports feeling well overall BG readings have stayed stable, is not at home to review log but reports the below BG ranges Reports most BG readings in the low 100s Lowest BG= 88 - 89 Highest BG= 140s No low BG readings Has adequate supply of patient assistance medications and refill form recently faxed by office for Tamar Current DM Medications: Semaglutide (Ozempic) 1 mg once weekly on Friday mornings Insulin degludec (Tresiba) 64 units daily at bedtime Insulin aspart 8 units before dinner Preventative Medications: On BRIAN/ARB: Yes On Statin: Yes GLYCEMIC CONTROL: Glucometer present at visit: No SMBG s: No SMBG readings to review Hypoglycemia: denies ROS: Patient denies CP, SOB, LUIS, blurred vision, dizziness or lightheadedness Patient denies nausea, vomiting, diarrhea, abdominal pain Patient denies symptoms of hypoglycemia (sweating, anxiety, palpitations, hunger, and tremor) Patient denies symptoms of hyperglycemia (polyuria, polydipsia, polyphagia) Patient denies potential medication adverse effects MEDICATIONS: Pill bottles are not present Adherence: denies missed doses. Pharmacy: [facility] [place] Rx coverage: not addressed Affordability: no concerns at this time Diabetes supplies: [employer] Organization System: not addressed ACTIVE PROBLEM LIST Obesity, Class Iii, Bmi 40-49.9 (Morbid Obesity) ([facility]) Type 2 Diabetes Mellitus With Neurological Manifestations, Controlled ([facility]) Essential Hypertension Coronary Atherosclerosis Hyperlipemia Bph With Obstruction/Lower Urinary Tract Symptoms Anemia Oa (Osteoarthritis) of Knee Atrial Fibrillation ([facility]) S/P Cabg X 2 Rbbb (Right Bundle Branch Block) Encounter for Monitoring Anti-Arrhythmic Therapy Ckd (Chronic Kidney Disease) Stage 4, Gfr 15-29 Ml/Min ([facility]) Chronic Diastolic Chf (Congestive Heart Failure) ([facility]) 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 Hypercalcemia Wound of Left Leg Recurrent Epistaxis PAST MEDICAL HISTORY Diagnosis Date Anal fissure 06/19/2006 Atrial fibrillation ([facility]) 05/13/2016 Benign localized hyperplasia of prostate with urinary obstruction and other lower urinary tract symptoms (LUTS)(600.21) 11/30/2009 CAROTID ART OCCL-NO INFARCT 01/31/2009 Carotid US 1-09: > 50% on the R, < 50% on the L Chronic diastolic CHF (congestive heart failure) ([facility]) 07/22/2018 CKD (chronic kidney disease) stage 4, GFR 15-29 ml/min ([facility]) 07/22/2018 CORONARY ATHEROSCLER UNSPEC VESSEL 01/03/2009 2 V CABG at age 71 ECG 2-09: RBBB per Manish ELEVATED PROSTATE SPECIFIC ANTIGEN 02/01/2009 PSA 4.2 in 3-09: repeat with free PSA and MARIO in follow up 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 Rothman for injections. HELDER on CPAP Primary osteoarthritis of left hip 11/02/2020 RBBB (right bundle branch block) 07/30/2016 S/P CABG x 2 07/30/2016 Skin mass 10/26/2010 Lipoma, left forehead SLEEP DISTURBANCE NOS 01/31/2009 03-09-09: effic 89%, AHI 3, low sat 86% (< 89% only 1.2 minutes), PLMI 7.5/hr Type II or unspecified type diabetes mellitus without mention of complication, uncontrolled 04/2003 Unspecified essential hypertension 09/2003 ALLERGIES Allergen Reactions Proscar [Finasterid* Rash Current Outpatient Medications Medication Sig insulin aspart U-100 (NOVOLOG FLEXPEN U-100 INSULIN) 100 unit/mL (3 mL) Inject 8 Units subcutaneously daily with dinner. Patient assistance. (will switch from Humalog sample to Novolog when supply arrives) insulin degludec (TRESIBA FLEXTOUCH U-100) 100 unit/mL (3 mL) injection pen Inject 64 Units subcutaneously every morning. Pt Assistance Medication. rivaroxaban (XARELTO) 15 mg tablet Take 1 tablet by mouth daily with dinner. losartan (COZAAR) 25 mg tablet Take 1 tablet by mouth once daily. doxazosin (CARDURA) 2 mg tablet Take 1 tablet by mouth daily at bedtime. sotalol (BETAPACE) 80 mg tablet Take 0.5 tablets by mouth twice daily. semaglutide (OZEMPIC) 1 mg/dose (4 mg/3 mL) pen injector Inject 1 mg subcutaneously one time a week. furosemide (LASIX) 20 mg tablet Take 1 tablet by mouth once daily. blood sugar diagnostic (TRUE METRIX GLUCOSE TEST STRIP) test strip Test twice daily. Dx: E11.49. Insulin: Yes. atorvastatin (LIPITOR) 40 mg tablet Take 40 mg by mouth once daily. azelastine-fluticasone (DYMISTA) 137-50 mcg/spray spry Use 1 [place] in each nostril twice daily. spironolactone (ALDACTONE) 25 mg tablet Take 1 tablet by mouth once daily. cholecalciferol, vitamin D3, (VITAMIN D3 ORAL) Take 2,000 Units by mouth once daily. LOW-DOSE ASPIRIN ORAL Take 81 mg by mouth once daily. insulin needles, DISPOSABLE, 31 gauge x 04/01 ndle Test blood sugar twice a day DX:E11.49 nitroglycerin sublingual (NITROQUICK) 0.4 mg SL tablet Dissolve 1 tablet under the tongue as neededfor Chest Pain. If no pain relief call 911. MULTIVITAMIN TAB Take one(1) tablet daily. No current facility-administered medications for this visit. EXAM: Last 3 Encounter BP Readings: Date: BP: 06/12/2022 130/68 11/23/2021 144/78[bp true[ 07/05/2021 113/70 Wt: 155.1 kg (342 lb) BMI: 47.70 kg/(m^2) LABS: Lab Results Component Value Date HBA1C 6.9 06/12/2022 HBA1C 8.9 02/22/2022 HBA1C 9.3 11/15/2021 HBA1C 8.0 06/01/2021 HBA1C 11.6 03/02/2021 CMP: Glucose 175 06/04/2022 BUN 38 02/22/2022 Creatinine, Whole Blood (iSTAT) 2.32 06/04/2022 Sodium 142 06/04/2022 Potassium 4.8 06/04/2022 Chloride 107 06/04/2022 CO2 29 02/22/2022 Protein, Total 6.2 02/22/2022 Albumin 4.0 11/15/2021 Calcium 10.5 06/04/2022 Alkaline Phosphatase 83 11/15/2021 Bilirubin, Total 0.5 11/15/2021 AST 24 11/15/2021 ALT 26 11/15/2021 Serum creatinine: 2.32 mg/dL (A) 06/04/22 0000 Estimated creatinine clearance: 35.3 mL/min (A) GFR (mL/MIN) Date Value 06/04/2022 27 GFR (mL/MIN) Date Value 06/04/2022 27 eGFR- (no units) Date Value 11/15/2021 46 Lab Results Component Value Date CHOL 98 11/15/2021 LDL 37 11/15/2021 HDL 35 11/15/2021 TG 129 11/15/2021 The ASCVD Risk score (Jeff GRAVES, et al., 2019) failed to calculate for the following reasons: The 2019 ASCVD risk score is only valid for ages 40 to 79 Albumin/Creat Ratio (mg/g) Date Value 11/15/2021 39 (H) PHARMACOTHERAPY ASSESSMENT/PLAN: 1. Type 2 diabetes mellitus with neurological manifestations, controlled (HCC) - ICD9: 250.60, ICD10: E11.49 A1c goal < 8%; at goal (last A1c 6.9%); SMBG improving on current regimen. Denies s/sx of hypoglycemia. Patient tolerating current regimen well, will continue same medications and follow up with PCP team as directed. Renal function and LFTs appropriate for continued use Continue Ozempic 1 mg once weekly Continue Tresiba 64 units daily at bedtime Continue Novolog 8 units before dinner Follow up: Patient is scheduled to see PCP on 12/13/22. Patient verbalized understanding of instructions. Adriana Garrison, PharmD, BCACP Primary Care Clinical Pharmacist The majority of the pharmacy visit (> 50%) was spent counseling and/or coordinating care for thepatient. [Telephonic] time was 15 minutes. [facility] [place] Miscellaneous Notes* Telephone Encounter - Ciera Conner LPN - 07/29/2022 12:29 PM EDT Pcp has reviewed,signed and faxed back. * Telephone Encounter - Ciera Conner LPN - 07/26/2022 3:30 PM EDT rec'd and completed. To pcp to review and sign. * Telephone Encounter - Adriana Garrison RPh - 07/26/2022 1:52 PM EDT Called [facility] for refill request. They are able to process refill for Ozempic. They will fax refill form to the office today. Adriana Garrison RPh 1:53 PM * Telephone Encounter - Kathrine Huerta LPN - 07/24/2022 4:25 PM EDT Pt requesting refills through pt assistance for his ozempic. Asking this to be sent to Adriana. He is not our pt he was here with for appointment whom is also not our pt. I am unsure of any other information other than what he mentioned during her appt. Sorry . You will need to contact pt for further information needed. documented in this [facility]King[facility] [place] Hospital Discharge instructions Patient Education 07/07/2022 11:06:11 Wound Care, Adult Wound Care, Adult Taking care of your wound properly can help to prevent pain, infection, and scarring. It can also help your wound to heal more quickly. How to care for your wound Wound care Follow instructions from your health care provider about how to take care of your wound. Make sure you: ?Wash your hands with soap and water before you change the bandage (dressing). If soap and water are not available, use hand film cutter. ?Change your dressing as told by your health care provider. ?Leave stitches (sutures), skin glue, or adhesive strips in place. These skin closures may need to stay in place for 2 weeks or longer. If adhesive strip edges start to loosen and curl up, you may trim the loose edges. Do not remove adhesive strips completely unless your health care provider tells you to do that. Check your wound area every day for signs of infection. Check for: ?Redness, swelling, or pain. ?Fluid or blood. ?Warmth. ?Pus or a bad smell. Ask your health care provider if you should clean the wound with mild soap and water. Doing this may include: ?Using a clean towel to pat the wound dry after cleaning it. Do not rub or scrub the wound. ?Applying a cream or ointment. Do this only as told by your health care provider. ?Covering the incision with a clean dressing. Ask your health care provider when you can leave the wound uncovered. Keep the dressing dry until your health care provider says it can be removed. Do not take baths, swim, use a hot tub, or do anything that would put the wound underwater until your health care provider approves. Ask your health care provider if you can take showers. You may only be allowed to take sponge baths. Medicines If you were prescribed an antibiotic medicine, cream, or ointment, take or use the antibiotic as told by your health care provider. Do not stop taking or using the antibiotic even if your condition improves. Take lgyp-wfo-rzloqaa and prescription medicines only as told by your health care provider. If you were prescribed pain medicine, take it 30 or more minutes before you do any wound care or as told byyour health care provider. General instructions Return to your normal activities as told by your health care provider. Ask your health care provider what activities are safe. Do not scratch or pick at the wound. Do not use any products that contain nicotine or tobacco, such as cigarettes and e-cigarettes. These may delay wound healing. If you need help quitting, ask your health care provider. Keep all follow-up visits as told by your health care provider. This is important. Eat a diet that includes protein, vitamin A, vitamin C, and other nutrient-rich foods to help the wound heal. ?Foods rich in protein include meat, dairy, beans, nuts, and other sources. ?Foods rich in vitamin A include carrots and dark green, leafy vegetables. ?Foods rich in vitamin C include citrus, tomatoes, and other fruits and vegetables. ?Nutrient-rich foods have protein, carbohydrates, fat, vitamins, or minerals. Eat a variety of healthy foods including vegetables, fruits, and whole grains. Contact a health care provider if: You received a tetanus shot and you have swelling, severe pain, redness, or bleeding at the injection site. Your pain is not controlled with medicine. You have redness, swelling, or pain around the wound. You have fluid or blood coming from the wound. Your wound feels warm to the touch. You have pus or a bad smell coming from the wound. You have a fever or chills. You are nauseous or you vomit. You are dizzy. Get help right away if: You have a red streak going away from your wound. The edges of the wound open up and separate. Your wound is bleeding, and the bleeding does not stop with gentle pressure. You have a rash. You faint. You have trouble breathing. Summary Always wash your hands with soap and water before changing your bandage (dressing). To help with healing, eat foods that are rich in protein, vitamin A, vitamin C, and other nutrients. Check your wound every day for signs of infection. Contact your health care provider if you suspectthat your wound is infected. This information is not intended to replace advice given to you by your health care provider. Make sure you discuss any questions you have with your health care provider. Document Released: 08/12/2009 Document Revised: 02/21/2020 Document Reviewed: 05/20/2017 [email or web address] Patient Education 2020 [email or web address]. Follow Up Care 06/21/2022 10:30:30 With:Case Management will call you at home after discharge. If you have any non- emergent questions or needs please feel free to call [phone] M-F 8am-4:30pm Address: When:1-2 days [facility] 08-21-2022 Note Discharge Instructions Thank you for allowing [facility] to assist you with your healthcare needs. The following is importantdischarge information regarding your hospital visit. Your Care Team NITHIN ACEVEDO MD Your Diagnosis Open wound of left lower leg What to do next Instructions From Your Doctor Wound Care: Donor site (thigh) - Avoid manipulating dressing unless soiled. Keep covered. Do not remove the yellow dressing. May change outer dressing as needed Skin graft (lower leg) - Change twice a day. Apply bacitracin or Aquaphor liberally to the graft with your gloved finger. Cover with non stick dressing (Adaptic or oil emulsion dressing preferred). Use caution if using a cotton type nonstick dressing that it separates from the graft when changing. Wrap area with rolled gauze or place gauze over nonstick dressing and wrap with BRIAN bandage. You may drive when you no longer have pain. You may shower and let the water run over you surgical sites but avoid direct spray from the water and do not scrub the areas. Do not soak them under water, in a pool, álvarez or pond. Scheduled Follow-Up Appointments Appointment Type When Where Contact InformationCV OV 07/16/2022 01:15 PM EDT [facility] Follow Up with Case Management will call you at home after discharge. If you have any non-emergent questions or needs please feel free to call [phone] M-F 8am-4:30pm When Within 1-2 days Where: The Following Activity and Diet Have Been Ordered for You Discharge Activity - Ordered -- NO activity restrictions, 07/07/22 10:44:00 EDT Discharge Driving Restrictions - Ordered -- No driving until pain-free, 07/07/22 10:44:00 EDT Discharge Diet - Ordered -- No changes were made to your diet during your hospital stay. Please resume your pre hospitalization diet on discharge., 07/07/22 10:44:00 EDT The Following Equipment Has Been Ordered for You Discharge Home Equipment Discharge Wound Care - Ordered -- Dressing Type: *Other (specify in special instructions), Change Dressing: twice daily, Skin Graft - Apply Bacitracin ointment or Aquaphor liberally to graft with gloved finger. Cover with nonstickdressing (Adaptic or oil emulsion, use caution when r... The Following Treatments Have Been Ordered for You Discharge Labs No qualifying data available. Discharge Radiology No qualifying data available. Other Therapies No qualifying data available. Post Acute Orders No qualifying data available. Someone Will Contact You Regarding These Home Health Referrals No home referrals have been ordered for you. No one will call you. Allergies Proscar fexofenadine (Unknown) finasteride (Unknown) Medications Please ask your primary doctor or pharmacist before taking any other medication not listed, including over the counter drugs, herbal medications, vitamins and or supplements as they may interact withyour home medications. What How Much When Instructions Last Dose New bacitracin topical (bacitracin topical ointment) 1 application Topical Once Unchanged apixaban (Eliquis 2.5 mg oral tablet) 1 tab(s) by mouth Two (2) times a day Unchanged aspirin (aspirin 81 mg oral delayed release tablet) 1 tab(s) by mouth Once a day Unchanged atorvastatin (atorvastatin 40 mg oral tablet) 1 tab(s) by mouth Once a day Unchanged doxazosin (doxazosin 2 mg oral tablet) 1 tab(s) by mouth Daily at bedtime Unchanged furosemide (Lasix 40 mg oral tablet) 1 tab(s) by mouth Once a day Unchanged insulin degludec (Tresiba 100 units/ mL subcutaneous solution) 64 unit(s) Subcutaneous Once a day (in the morning) Unchanged insulin lispro (HumaLOG) (HumaLOG KwikPen 100 units/ mL injectable PEN) 6 unit(s) Subcutaneous Daily before supper Unchanged losartan (losartan 25 mg oral tablet) 1 tab(s) by mouth Once a day (in the evening) Unchanged Misc Medication (flesh skin and bone) 2 cap by mouth Two (2) times a day Unchanged multivitamin (Multiple Vitamins oral tablet) 1 tab(s) by mouth Once a day Unchanged nitroGLYcerin (Nitrostat 0.4 mg sublingual tablet) 1 tab(s) under the tongue Every 5 minutes as needed for for chest pain Unchanged semaglutide (Ozempic (1 mg dose) 4 mg/ 3 mL subcutaneous solution) 1 Milligram Subcutaneous Every week Unchanged spironolactone (Aldactone 25 mg oral tablet) 1 tab(s) by mouth Every other day Please take this list to your next doctor s visit. Bring all medications you take, including over the counter medications, herbals and other supplements with you to your doctor s visit. Patients and families are reminded to discard old lists and to update any records with all medication providers or retail pharmacies. Education Materials Wound Care, Adult Taking care of your wound properly can help to prevent pain, infection, and scarring. It can also help your wound to heal more quickly. How to care for your wound Wound care Follow instructions from your health care provider about how to take care of your wound. Make sure you: ? Wash your hands with soap and water before you change the bandage (dressing). If soap and water arenot available, use hand film cutter. ? Change your dressing as told by your health care provider. ? Leave stitches (sutures), skin glue, or adhesive strips in place. These skin closures may need to stay in place for 2 weeks or longer. If adhesive strip edges start to loosen and curl up, you may trim the loose edges. Do not remove adhesive strips completely unless your health care provider tells you to do that. Check your wound area every day for signs of infection. Check for: ? Redness, swelling, or pain. ? Fluid or blood. ? Warmth. ? Pus or a bad smell. Ask your health care provider if you should clean the wound with mild soap and water. Doing this may include: ? Using a clean towel to pat the wound dry after cleaning it. Do not rub or scrub the wound. ? Applying a cream or ointment. Do this only as told by your health care provider. ? Covering the incision with a clean dressing. Ask your health care provider when you can leave the wound uncovered. Keep the dressing dry until your health care provider says it can be removed. Do not take baths, swim, use a hot tub, or do anything that would put the wound underwater until your health care provider approves. Ask your health care provider if you can take showers. You may only be allowed to take sponge baths. Medicines If you were prescribed an antibiotic medicine, cream, or ointment, take or use the antibiotic as told by your health care provider. Do not stop taking or using the antibiotic even if your condition improves. Take lkwg-ewp-rmjtgbz and prescription medicines only as told by your health care provider. If you were prescribed pain medicine, take it 30 or more minutes before you do any wound care or as told byyour health care provider. General instructions Return to your normal activities as told by your health care provider. Ask your health care provider what activities are safe. Do not scratch or pick at the wound. Do not use any products that contain nicotine or tobacco, such as cigarettes and e-cigarettes. These may delay wound healing. If you need help quitting, ask your health care provider. Keep all follow-up visits as told by your health care provider. This is important. Eat a diet that includes protein, vitamin A, vitamin C, and other nutrient-rich foods to help the wound heal. ? Foods rich in protein include meat, dairy, beans, nuts, and other sources. ? Foods rich in vitamin A include carrots and dark green, leafy vegetables. ? Foods rich in vitamin C include citrus, tomatoes, and other fruits and vegetables. ? Nutrient-rich foods have protein, carbohydrates, fat, vitamins, or minerals. Eat a variety of healthy foods including vegetables, fruits, and whole grains. Contact a health care provider if: You received a tetanus shot and you have swelling, severe pain, redness, or bleeding at the injection site. Your pain is not controlled with medicine. You have redness, swelling, or pain around the wound. You have fluid or blood coming from the wound. Your wound feels warm to the touch. You have pus or a bad smell coming from the wound. You have a fever or chills. You are nauseous or you vomit. You are dizzy. Get help right away if: You have a red streak going away from your wound. The edges of the wound open up and separate. Your wound is bleeding, and the bleeding does not stop with gentle pressure. You have a rash. You faint. You have trouble breathing. Summary Always wash your hands with soap and water before changing your bandage (dressing). To help with healing, eat foods that are rich in protein, vitamin A, vitamin C, and other nutrients. Check your wound every day for signs of infection. Contact your health care provider if you suspectthat your wound is infected. This information is not intended to replace advice given to you by your health care provider. Make sure you discuss any questions you have with your health care provider. Document Released: 08/12/2009 Document Revised: 02/21/2020 Document Reviewed: 05/20/2017 [employer] Patient Education 2020 [employer] Additional Information VACCINATE! IT SAVES LIVES! Members of the community who have not yet received the COVID-19 vaccine and would like to receive it can visit one of [facility] vaccine clinics. There are many vaccine clinic locations within the [facility]. For locations and available times, please visit [email or web address] It is important to note that some COVID mobile vaccine clinics are held outdoors and may be canceled in rainy or stormy conditions. To learn more about pediatric vaccinations (ages 5-11), we invite you to visit the [facility] webpage. [email or web address] learn more about the COVID-19 vaccine, we invite you to visit the [employer] website for a list of frequently asked questions. [email or web address] [facility] Patient Portal Access Instructions: Stay connected with your healthcare team and access your personal medical information anytime with the [facility] Patient Portal.If you would like a full copy of your medical records, please contact the [facility] Medical Records Department, Friday through Friday between 8a.m. and 4:30p.m. Please follow the directions below to access the portal: 1.Access the email account you [facility].2.Look for an invitation email from [facility].3.Open the email and access the invitation link: Accept Invitation to [facility]4.Fill in the required long to create your account. Sign into [email or web address] with your username and password that you created in the above steps to stay up to date. You can then view a summary of results, a summary of your visits, and the ability to download your summaries to your computer or send the information securely to a physician. Remember that your healthcare information is confidential, so carefully consider who you will allow to register on the [facility] Patient Portal for access to your information. You can also access the [facility] Patient Portal on the [employer] adam. Simply click on Health Records under [employer] and then click on the [facility] logo. HOW TO SAFELY DISPOSE OF PRESCRIPTION MEDICATIONS Please use one of the following methods to safely dispose of your unused medications. 1.Use a drug disposal kit: the drug disposal pouch allows you to safely discard your old and unuseddrugs. Ask your nurse to give you one when you are discharged.2.Visit a local take-back location: Many local pharmacies and police departments have programs that collect old and unwanted prescriptiondrugs. Call your local pharmacy or go to http://bit.[employer]/6E0Ds1b to find one close to you.3.Make use of household items: Use cat litter or old coffee grounds to dispose medications if other options arenot available. Mix your drugs with these household products, seal them in an airtight container andthrow it into the garbage. Call [facility]: [phone] to be sure your drugs can be disposed of in this way. Some medicines may require a different approach.4.Never flush your medications down the toilet. IF YOU HAVE BEEN PRESCRIBED AN OPIOID FOR PAIN If you have been prescribed an opioid (such as hydrocodone, oxycodone or morphine), it is critical to understand the possible side effects and risks of opioid pain medications. Even when taken as directed, opioids can have several side effects including: Tolerance, meaning you might need to take more of a medication for the same pain relief. Nausea, vomiting and/or constipation. Sleepiness, dizziness, dry mouth, confusion, depression or itching. Physical dependence, meaning you have withdrawal symptoms when a medication is stopped, can develop within a few days. KNOW YOUR RESPONSIBILITIES It is important to know exactly how much and how often to take the opioid pain medications you are prescribed. Never take opioids in higher amounts or more often than prescribed. Do not combine opioids with alcohol or other drugs that cause drowsiness, such as benzodiazepines, also known as benzos, including diazepam and alprazolam, muscle relaxants or sleep aids. Never sell or share prescription opioids. This is illegal. Store opioids in a secure place and out of reach of others (including children, family, friends and visitors). The last page of this document has been signed and retained as a CHART COPY. Signatures Patient Education Materials Wound Care, Adult Medication Leaflets My discharge plan and instructions have been reviewed and explained to me and I,FEDERICO HU understand my current condition and have read and understand these discharge instructions. I have received a written copy of the plan/instructions. If I have questions, I am aware that I should contact my doctor. Patient/[employer] Marker Signature: Date/Time: Relationship to Patient: Witness Name/Signature: [id number] Note Date of Service 07/06/2022 Chief Complaint no new complaints Subjective This is an 86-year-old male with a past medical history of CAD status post CABG, A. fib on Eliquis,CKD, type 2 diabetes, HELDER on CPAP, heart failure with preserved ejection fraction, hyperlipidemia, hypertension, and chronic left lower extremity wound. Patient is currently status post a left lower extremity skin grafting after suffering from left lower extremity wound earlier this year. Wound VACin place. Creatinine improving, now on oral Lasix. Patient seen and examined sitting up in the chair eating breakfast. He has no complaints this morning. Not complaining of any pain related to the wound VAC or skin graft. He denies headache, dizziness, nausea, vomiting, chest pain, shortness of breath, diarrhea and problems with urination. Objective Vitals and Measurements T: 36.4 C (Oral) TMIN: 36.4 C (Oral) TMAX: 36.7 C (Oral) HR: 73 RR: 18 BP: 116/49 SpO2: 94% Intake and Output 7AM Yesterday to 7AM Today Intake and Output (Last 24 hours) Intake Oral Intake 480.00 Output Urine Voided 2275.00 Stool Count 0.00 Urine Count 3.00 Total Summary Total Intake 480.00 Total Output 2275.00 Fluid Balance -1795.00 Physical Exam General: No acute distress. Alert and Appropriate Skin: No rash. Warm, Dry, left lower extremity wound VAC in place, Left upper thigh dressing with moderate serosanguineous drainage. HEENT: Head is normocephalic and atraumatic. No lesions. Pupils equal in size. Nose: No septal deviation. Mouth: Oropharynx mucosa is without lesion. Neck: Supple. Lungs: Bilaterally clear/diminished breath sounds with no crepitation or wheeze. Unlabored Cardiovascular: Heart is regular rhythm, S1S2, No extra-audible heart tones Abdomen: Abdomen is soft, nontender. Bowel sounds positive all four quadrants. Extremities: No clubbing, cyanosis 1+ BLE edema. Peripheral pulses palpable. No calf tenderness. Adequate peripheral circulation. Neurological: The patient is awake, oriented to time, people and place. Following simple commands, moving all extremities. Weight Dosing Weight: 156.5 kg (07/02/22) Dosing Weight: 156.5 kg (07/02/22) Medications Medications (19) Active Scheduled: (11) aspirin 81 mg EC 81 mg 1 tab(s), Oral, qDay atorvastatin 40 mg tablet 40 mg 1 tab(s), Oral, qDay doxazosin 2 mg Tablet 2 mg 1 tab(s), Oral, qHS enoxaparin 40 mg/ 0.4mL syringe 40 mg 0.4 mL, Subcutaneous, qDay furosemide 40 mg tablet 40 mg 1 tab(s), Oral, qDay insulin glargine 32 unit(s) 0.32 mL, Subcutaneous (INT), qAM insulin lispro 100 units/mL Soln (3 mL) Give 0-5 units/dose, Subcutaneous, TIDAC lidocaine 1% (MPF) 2 mL vial pf 2.5 mg 0.25 mL, Intradermal, prep pharm losartan 25 mg tablet 25 mg 1 tab(s), Oral, qPM multivitamin tablet 1 tab(s), Oral, qDay spironolactone 25 mg tablet 25 mg 1 tab(s), Oral, Every other day Continuous: (2) NS (0.9% nacl) 1,000 mL 1,000 mL, Intravenous, 20 mL/hr NS (0.9% nacl) 1,000 mL 1,000 mL, Intravenous, 20 mL/hr PRN: (6) acetaminophen-OXYcodone 325 mg-5 mg Tablet 1 tab(s), Oral, q4h melatonin 3 mg tablet 3 mg 1 tab(s), Oral, qHS morphine 2 mg/mL 1 mL syringe 2 mg 1 mL, IV Push, q1h morphine 4 mg/mL 1mL INJ 4 mg 1 mL, IV Push, q1h nitroglycerin 0.4 mg Tablet (25/btl) 0.4 mg 1 tab(s), Sublingual, q5min prochlorperazine 10 mg/2 mL vial 5 mg 1 mL, IV Push, q6h Lab Results 07/06 06:26 WBC: 5.9 Hgb: 11.2 L Hct: 33.9 L Platelet: 119 L Neutrophil %: 65.4 Glucose Level: 154 H Sodium Level: 142 Potassium Level: 4.3 BUN: 57.0 H Creatinine Lvl (s): 2.21 H 07/05 05:17 WBC: 5.2 Hgb: 10.7 L Hct: 32.9 L Platelet: 115 L Neutrophil %: 61.7 Glucose Level: 148 H Sodium Level: 139 Potassium Level: 4.5 BUN: 58.0 H Creatinine Lvl (s): 2.40 H EKG No qualifying data available. Assessment/Plan Open wound of left lower leg Patient is POD #4 status post left lower extremity skin grafting resulting from left lower extremity wound by Dr. Myers. Wound VAC currently in place. Will likely need wound VAC for total of 5 days. Management per primary team. HELDER on CPAP- patient does not currently have his home CPAP. We will continue with CPAP here. CAD status post CABG- Continue aspirin and statin. A. fib on Eliquis- Eliquis on hold, per primary team plan to restart Eliquis once wound VAC is taken down. Most likely restart on discharge. CKD- creatinine now improving. Will stop IV Lasix and restart home dose oral Lasix. Continue Aldactone. Type 2 diabetes- continue home Lantus, ADA diet. Monitor blood sugars. Continue SSI. Heart failure preserved ejection fraction-on diuretics as above Hypertension- continue medications. Hyperlipidemia- continue statin. CODE STATUS: Full code DVT prophylaxis Lovenox Plan of care discussed with patient Likely plan for discharge home with home health care tomorrow. We will sign off for now. Please reach out with any further questions. Thank you for the consult. Case discussed with collaborating physician Dr. Cheney. Time Spent 23 minutes Digitally Signed by TISHA VALENZUELA on 07/06/2022 11:17 AM [id number] Note Date of Service 07/05/2022 Chief Complaint Left lower leg wound Subjective This is an 86-year-old male with a past medical history of CAD status post CABG, A. fib on Eliquis,CKD, type 2 diabetes, HELDER on CPAP, heart failure with preserved ejection fraction, hyperlipidemia, hypertension, and chronic left lower extremity wound. Patient is currently status post a left lower extremity skin grafting after suffering from left lower extremity wound earlier this year. Wound VACin place. Patient does appear volume overloaded, will continue IV Lasix. IV fluids have been discontinued. Patient seen and examined sitting up in the chair. He is alert and oriented x3 on my exam. He has no complaints. States that he is not in any pain. States that he is having regular bowel movements and not having any issues with urination. Is eating and drinking and tolerating that well without nausea or vomiting. Did have some questions about getting set up with home health care and spoke to social media marketing manager who states that she will go talk to him. Objective Vitals and Measurements T: 37.0 C (Oral) TMIN: 36.9 C (Axillary) TMAX: 37.2 C (Oral) HR: 72 RR: 18 BP: 151/65 SpO2: 95% Intake and Output 7AM Yesterday to 7AM Today Intake and Output (Last 24 hours) Intake Oral Intake 1040.00 Administration Information 320.00 Output Urine Voided 835.00 Stool Count 0.00 Total Summary Total Intake 1360.00 Total Output 835.00 Fluid Balance 525.00 Physical Exam General: No acute distress. Alert and Appropriate Skin: No rash. Warm, Dry, left lower extremity wound VAC in place HEENT: Head is normocephalic and atraumatic. No lesions. Pupils equal in size. Nose: No septal deviation. Mouth: Oropharynx mucosa is without lesion. Neck: Supple. Lungs: Bilaterally clear/diminished breath sounds with no crepitation or wheeze. Unlabored Cardiovascular: Heart is regular rhythm, S1S2, No extra-audible heart tones Abdomen: Abdomen is soft, nontender. Bowel sounds positive all four quadrants. Extremities: No clubbing, cyanosis 2+ BLE edema. Peripheral pulses palpable. No calf tenderness. Adequate peripheral circulation. Neurological: The patient is awake, oriented to time, people and place. Following simple commands, moving all extremities. Weight Dosing Weight: 156.5 kg (07/02/22) Dosing Weight: 156.5 kg (07/02/22) Medications Medications (19) Active Scheduled: (11) aspirin 81 mg EC 81 mg 1 tab(s), Oral, qDay atorvastatin 40 mg tablet 40 mg 1 tab(s), Oral, qDay doxazosin 2 mg Tablet 2 mg 1 tab(s), Oral, qHS enoxaparin 40 mg/ 0.4mL syringe 40 mg 0.4 mL, Subcutaneous, qDay furosemide 40 mg/4 mL vial 40 mg 4 mL, IV Push, BID insulin glargine 32 unit(s) 0.32 mL, Subcutaneous (INT), qAM insulin lispro 100 units/mL Soln (3 mL) Give 0-5 units/dose, Subcutaneous, TIDAC lidocaine 1% (MPF) 2 mL vial pf 2.5 mg 0.25 mL, Intradermal, prep pharm losartan 25 mg tablet 25 mg 1 tab(s), Oral, qPM multivitamin tablet 1 tab(s), Oral, qDay spironolactone 25 mg tablet 25 mg 1 tab(s), Oral, Every other day Continuous: (2) NS (0.9% nacl) 1,000 mL 1,000 mL, Intravenous, 20 mL/hr NS (0.9% nacl) 1,000 mL 1,000 mL, Intravenous, 20 mL/hr PRN: (6) acetaminophen-OXYcodone 325 mg-5 mg Tablet 1 tab(s), Oral, q4h melatonin 3 mg tablet 3 mg 1 tab(s), Oral, qHS morphine 2 mg/mL 1 mL syringe 2 mg 1 mL, IV Push, q1h morphine 4 mg/mL 1mL INJ 4 mg 1 mL, IV Push, q1h nitroglycerin 0.4 mg Tablet (25/btl) 0.4 mg 1 tab(s), Sublingual, q5min prochlorperazine 10 mg/2 mL vial 5 mg 1 mL, IV Push, q6h Lab Results 07/05 05:17 WBC: 5.2 Hgb: 10.7 L Hct: 32.9 L Platelet: 115 L Neutrophil %: 61.7 Glucose Level: 148 H Sodium Level: 139 Potassium Level: 4.5 BUN: 58.0 H Creatinine Lvl (s): 2.40 H 07/04 05:17 WBC: 5.7 Hgb: 10.6 L Hct: 32.7 L Platelet: 112 L Neutrophil %: 63.8 Glucose Level: 135 H Sodium Level: 142 Potassium Level: 4.6 BUN: 57.0 H Creatinine Lvl (s): 2.60 H EKG No qualifying data available. Assessment/Plan Open wound of left lower leg Patient is POD #3 status post left lower extremity skin grafting resulting from left lower extremity wound by Dr. Myers. Wound VAC currently in place. Will likely need wound VAC for total of 5 days. Management per primary team. HELDER on CPAP- patient does not currently have his home CPAP. We will continue with CPAP here. CAD status post CABG- Continue aspirin and statin. A. fib on Eliquis- Eliquis on hold, per primary team plan to restart Eliquis once wound VAC is taken down. Most likely restart on discharge. CKD- creatinine now improving. We will continue IV Lasix for 1 more day and then change it back to his home p.o. dose. Continue Aldactone. Type 2 diabetes- continue home Lantus, ADA diet. Monitor blood sugars. Continue SSI. Heart failure preserved ejection fraction-on diuretics as above Hypertension- continue medications. Hyperlipidemia- continue statin. CODE STATUS: Full code DVT prophylaxis Lovenox Plan of care discussed with patient Case discussed with collaborating physician Dr. Cheney. Time Spent 22 minutes Digitally Signed by TISHA VALENZUELA on 07/05/2022 11:49 AM [id number] Note Date of Service 07/04/2022 Chief Complaint Left leg pain Subjective This is an 86-year-old male with a past medical history of CAD status post CABG, A. fib on Eliquis,CKD, type 2 diabetes, HELDER on CPAP, heart failure with preserved ejection fraction, hyperlipidemia, hypertension, and chronic left lower extremity wound. Patient is currently status post a left lower extremity skin grafting after suffering from left lower extremity wound earlier this year. Wound VACin place. Patient does appear volume overloaded, will start IV Lasix. IV fluids have been discontinued. Patient seen and examined sitting up in the chair eating breakfast. Patient complains of no pain. He denies headache, dizziness, nausea, vomiting, chest pain, diarrhea and problems with urination. States that he is eating and drinking and has had several bowel movements. Objective Vitals and Measurements T: 36.9 C (Oral) TMIN: 36.5 C (Oral) TMAX: 36.9 C (Oral) HR: 71 RR: 18 BP: 126/61 SpO2: 96% Intake and Output 7AM Yesterday to 7AM Today Intake and Output (Last 24 hours) Intake Oral Intake 840.00 Output Urine Voided 925.00 Stool Count 0.00 Urine Count 2.00 Total Summary Total Intake 840.00 Total Output 925.00 Fluid Balance -85.00 Physical Exam Physical Exam General: No acute distress. Alert and Appropriate Skin: No rash. Warm, Dry, left lower extremity wound VAC in place HEENT: Head is normocephalic and atraumatic. No lesions. Pupils equal in size. Nose: No septal deviation. Mouth: Oropharynx mucosa is without lesion. Neck: Supple. No lymphadenopathy, thyromegaly noted. Lungs: Bilaterally clear/diminished breath sounds with no crepitation or wheeze. Unlabored Cardiovascular: Heart is regular rhythm, S1S2, No extra-audible heart tones Abdomen: Abdomen is soft, nontender. Bowel sounds positive all four quadrants. Extremities: No clubbing, cyanosis 2+ BLE edema. Peripheral pulses palpable. No calf tenderness. Adequate peripheral circulation. Neurological: The patient is awake, oriented to time, people and place. Following simple commands, moving all extremities. Weight Dosing Weight: 156.5 kg (07/02/22) Dosing Weight: 156.5 kg (07/02/22) Medications Medications (17) Active Scheduled: (8) atorvastatin 40 mg tablet 40 mg 1 tab(s), Oral, qDay doxazosin 2 mg Tablet 2 mg 1 tab(s), Oral, qHS enoxaparin 40 mg/ 0.4mL syringe 40 mg 0.4 mL, Subcutaneous, qDay insulin glargine 32 unit(s) 0.32 mL, Subcutaneous (INT), qAM insulin lispro 100 units/mL Soln (3 mL) Give 0-5 units/dose, Subcutaneous, TIDAC lidocaine 1% (MPF) 2 mL vial pf 2.5 mg 0.25 mL, Intradermal, prep pharm losartan 25 mg tablet 25 mg 1 tab(s), Oral, qPM multivitamin tablet 1 tab(s), Oral, qDay Continuous: (3) Lactated Ringers 1,000 mL 1,000 mL, Intravenous, 50 mL/hr NS (0.9% nacl) 1,000 mL 1,000 mL, Intravenous, 20 mL/hr NS (0.9% nacl) 1,000 mL 1,000 mL, Intravenous, 20 mL/hr PRN: (6) acetaminophen-OXYcodone 325 mg-5 mg Tablet 1 tab(s), Oral, q4h melatonin 3 mg tablet 3 mg 1 tab(s), Oral, qHS morphine 2 mg/mL 1 mL syringe 2 mg 1 mL, IV Push, q1h morphine 4 mg/mL 1mL INJ 4 mg 1 mL, IV Push, q1h nitroglycerin 0.4 mg Tablet (25/btl) 0.4 mg 1 tab(s), Sublingual, q5min prochlorperazine 10 mg/2 mL vial 5 mg 1 mL, IV Push, q6h Lab Results 07/04 05:17 WBC: 5.7 Hgb: 10.6 L Hct: 32.7 L Platelet: 112 L Neutrophil %: 63.8 Glucose Level: 135 H Sodium Level: 142 Potassium Level: 4.6 BUN: 57.0 H Creatinine Lvl (s): 2.60 H 07/03 04:41 WBC: 5.5 Hgb: 10.8 L Hct: 33.3 L Platelet: 118 L Neutrophil %: 66.5 Glucose Level: 124 H Sodium Level: 143 Potassium Level: 4.6 BUN: 46.0 H Creatinine Lvl (s): 2.47 H EKG No qualifying data available. Assessment/Plan Open wound of left lower leg Patient is POD #2 status post left lower extremity skin grafting resulting from left lower extremity wound by Dr. Myers. Wound VAC currently in place. Will likely need wound VAC for total of 5 days. Management per primary team. HELDER on CPAP- patient does not currently have his home CPAP. We will continue with CPAP here. CAD status post CABG-aspirin resumed today. Continue statin. A. fib on Eliquis- Eliquis on hold, per primary team plan to restart Eliquis once wound VAC is taken down. Most likely restart on discharge. CKD- creatinine continues to be elevated. Patient does appear volume overloaded. Started on IV Lasix. Resumed home Aldactone. Type 2 diabetes- continue home Lantus, ADA diet. Monitor blood sugars. Continue SSI. Heart failure preserved ejection fraction-resumed Aldactone and started IV Lasix. Hypertension- continue medications. Hyperlipidemia- continue statin. CODE STATUS: Full code DVT prophylaxis Lovenox Plan of care discussed with patient Case discussed with collaborating physician Dr. Cheney. Time Spent 22 minutes Digitally Signed by TISHA VALENZUELA on 07/04/2022 12:37 PM [id number] Note Date of Service 07/04/2022 Chief Complaint Left leg pain Subjective This is an 86-year-old male with a past medical history of CAD status post CABG, A. fib on Eliquis,CKD, type 2 diabetes, HELDER on CPAP, heart failure with preserved ejection fraction, hyperlipidemia, hypertension, and chronic left lower extremity wound. Patient is currently status post a left lower extremity skin grafting after suffering from left lower extremity wound earlier this year. Wound VACin place. Patient does appear volume overloaded, will start IV Lasix. IV fluids have been discontinued. Patient seen and examined sitting up in the chair eating breakfast. Patient complains of no pain. He denies headache, dizziness, nausea, vomiting, chest pain, diarrhea and problems with urination. States that he is eating and drinking and has had several bowel movements. Objective Vitals and Measurements T: 36.9 C (Oral) TMIN: 36.5 C (Oral) TMAX: 36.9 C (Oral) HR: 71 RR: 18 BP: 126/61 SpO2: 96% Intake and Output 7AM Yesterday to 7AM Today Intake and Output (Last 24 hours) Intake Oral Intake 840.00 Output Urine Voided 925.00 Stool Count 0.00 Urine Count 2.00 Total Summary Total Intake 840.00 Total Output 925.00 Fluid Balance -85.00 Physical Exam Physical Exam General: No acute distress. Alert and Appropriate Skin: No rash. Warm, Dry, left lower extremity wound VAC in place HEENT: Head is normocephalic and atraumatic. No lesions. Pupils equal in size. Nose: No septal deviation. Mouth: Oropharynx mucosa is without lesion. Neck: Supple. No lymphadenopathy, thyromegaly noted. Lungs: Bilaterally clear/diminished breath sounds with no crepitation or wheeze. Unlabored Cardiovascular: Heart is regular rhythm, S1S2, No extra-audible heart tones Abdomen: Abdomen is soft, nontender. Bowel sounds positive all four quadrants. Extremities: No clubbing, cyanosis 2+ BLE edema. Peripheral pulses palpable. No calf tenderness. Adequate peripheral circulation. Neurological: The patient is awake, oriented to time, people and place. Following simple commands, moving all extremities. Weight Dosing Weight: 156.5 kg (07/02/22) Dosing Weight: 156.5 kg (07/02/22) Medications Medications (17) Active Scheduled: (8) atorvastatin 40 mg tablet 40 mg 1 tab(s), Oral, qDay doxazosin 2 mg Tablet 2 mg 1 tab(s), Oral, qHS enoxaparin 40 mg/ 0.4mL syringe 40 mg 0.4 mL, Subcutaneous, qDay insulin glargine 32 unit(s) 0.32 mL, Subcutaneous (INT), qAM insulin lispro 100 units/mL Soln (3 mL) Give 0-5 units/dose, Subcutaneous, TIDAC lidocaine 1% (MPF) 2 mL vial pf 2.5 mg 0.25 mL, Intradermal, prep pharm losartan 25 mg tablet 25 mg 1 tab(s), Oral, qPM multivitamin tablet 1 tab(s), Oral, qDay Continuous: (3) Lactated Ringers 1,000 mL 1,000 mL, Intravenous, 50 mL/hr NS (0.9% nacl) 1,000 mL 1,000 mL, Intravenous, 20 mL/hr NS (0.9% nacl) 1,000 mL 1,000 mL, Intravenous, 20 mL/hr PRN: (6) acetaminophen-OXYcodone 325 mg-5 mg Tablet 1 tab(s), Oral, q4h melatonin 3 mg tablet 3 mg 1 tab(s), Oral, qHS morphine 2 mg/mL 1 mL syringe 2 mg 1 mL, IV Push, q1h morphine 4 mg/mL 1mL INJ 4 mg 1 mL, IV Push, q1h nitroglycerin 0.4 mg Tablet (25/btl) 0.4 mg 1 tab(s), Sublingual, q5min prochlorperazine 10 mg/2 mL vial 5 mg 1 mL, IV Push, q6h Lab Results 07/04 05:17 WBC: 5.7 Hgb: 10.6 L Hct: 32.7 L Platelet: 112 L Neutrophil %: 63.8 Glucose Level: 135 H Sodium Level: 142 Potassium Level: 4.6 BUN: 57.0 H Creatinine Lvl (s): 2.60 H 07/03 04:41 WBC: 5.5 Hgb: 10.8 L Hct: 33.3 L Platelet: 118 L Neutrophil %: 66.5 Glucose Level: 124 H Sodium Level: 143 Potassium Level: 4.6 BUN: 46.0 H Creatinine Lvl (s): 2.47 H EKG No qualifying data available. Assessment/Plan Open wound of left lower leg Patient is POD #2 status post left lower extremity skin grafting resulting from left lower extremity wound by Dr. Myers. Wound VAC currently in place. Will likely need wound VAC for total of 5 days. Management per primary team. HELDER on CPAP- patient does not currently have his home CPAP. We will continue with CPAP here. CAD status post CABG-aspirin resumed today. Continue statin. A. fib on Eliquis- Eliquis on hold, per primary team plan to restart Eliquis once wound VAC is taken down. Most likely restart on discharge. CKD- creatinine continues to be elevated. Patient does appear volume overloaded. Started on IV Lasix. Resumed home Aldactone. Type 2 diabetes- continue home Lantus, ADA diet. Monitor blood sugars. Continue SSI. Heart failure preserved ejection fraction-resumed Aldactone and started IV Lasix. Hypertension- continue medications. Hyperlipidemia- continue statin. CODE STATUS: Full code DVT prophylaxis Lovenox Plan of care discussed with patient Case discussed with collaborating physician Dr. Cheney. Time Spent 22 minutes Digitally Signed by TISHA VALENZUELA on 07/04/2022 12:37 PM [id number] Plastic surgery Progress note Date of Service 07/03/22 Chief Complaint None Subjective Patient sitting in chair. He states he has no pain. Tolerating diet. Objective Vitals and Measurements T: 36.5 C (Oral) TMIN: 36.4 C (Oral) TMAX: 36.7 C (Axillary) HR: 70 RR: 18 BP: 135/58 SpO2: 93% Intake and Output 7AM Yesterday to 7AM Today Intake and Output (Last 24 hours) Intake Oral Intake 480.00 Output Urine Voided 1275.00 Urine Count 1.00 Total Summary Total Intake 480.00 Total Output 1275.00 Fluid Balance -795.00 Physical Exam Gen: NAD LLE: Wound vac to left medial calf in tact with good seal. Limited output. Left donor site as expected. Weight Dosing Weight: 156.5 kg (07/02/22) Dosing Weight: 156.5 kg (07/02/22) Medications Medications (17) Active Scheduled: (8) atorvastatin 40 mg tablet 40 mg 1 tab(s), Oral, qDay doxazosin 2 mg Tablet 2 mg 1 tab(s), Oral, qHS enoxaparin 40 mg/ 0.4mL syringe 40 mg 0.4 mL, Subcutaneous, qDay insulin glargine 32 unit(s) 0.32 mL, Subcutaneous (INT), qAM insulin lispro 100 units/mL Soln (3 mL) Give 0-5 units/dose, Subcutaneous, TIDAC lidocaine 1% (MPF) 2 mL vial pf 2.5 mg 0.25 mL, Intradermal, prep pharm losartan 25 mg tablet 25 mg 1 tab(s), Oral, qPM multivitamin tablet 1 tab(s), Oral, qDay Continuous: (3) Lactated Ringers 1,000 mL 1,000 mL, Intravenous, 50 mL/hr NS (0.9% nacl) 1,000 mL 1,000 mL, Intravenous, 20 mL/hr NS (0.9% nacl) 1,000 mL 1,000 mL, Intravenous, 20 mL/hr PRN: (6) acetaminophen-OXYcodone 325 mg-5 mg Tablet 1 tab(s), Oral, q4h melatonin 3 mg tablet 3 mg 1 tab(s), Oral, qHS morphine 2 mg/mL 1 mL syringe 2 mg 1 mL, IV Push, q1h morphine 4 mg/mL 1mL INJ 4 mg 1 mL, IV Push, q1h nitroglycerin 0.4 mg Tablet (25/btl) 0.4 mg 1 tab(s), Sublingual, q5min prochlorperazine 10 mg/2 mL vial 5 mg 1 mL, IV Push, q6h Lab Results 07/03 04:41 WBC: 5.5 Hgb: 10.8 L Hct: 33.3 L Platelet: 118 L Neutrophil %: 66.5 Glucose Level: 124 H Sodium Level: 143 Potassium Level: 4.6 BUN: 46.0 H Creatinine Lvl (s): 2.47 H / 08:41 Platelet: 132 L Protime: 14.3 PT International Ratio: 1.2 EKG No qualifying data available. Assessment/Plan 86 y/o M POD#1 STSG to left lower extremity wound with wound vac placement. -PO pain control. -Wound care --> Keep wound vac in place for 5 days postoperatively. Will plan for takedown on POD#5. Reinforce donor site as needed. -Keep leg elevated while sitting. -Appreciate medical management and recommendations with patient's chronic comorbidities. -Continue to hold Eliquis for now. Benjamin Hernandez MD Digitally Signed by MD BENJAMIN HERNANDEZ on 07/03/2022 08:36 PM [id number] Note Date of Service 07/03/2022 Chief Complaint Left leg pain Subjective This is an 86-year-old male with a past medical history of CAD status post CABG, A. fib on Eliquis,CKD, type 2 diabetes, HELDER on CPAP, heart failure with preserved ejection fraction, hyperlipidemia, hypertension, and chronic left lower extremity wound. Patient is currently status post a left lower extremity skin grafting after suffering from left lower extremity wound earlier this year. Wound VACin place. On my exam, patient is sitting up in his chair at the bedside. Endorses mild left lower extremity wound. Denies chest pain, shortness of breath, nausea, vomiting, diarrhea. Denies numbness, tingling,dizziness. No other complaints. Objective Vitals and Measurements T: 36.4 C (Oral) TMIN: 35.43 C TMAX: 36.7 C (Axillary) HR: 70 RR: 16 BP: 106/51 SpO2: 92% HT: 182.9cm WT: 156.5 kg BMI: 46.78 Intake and Output 7AM Yesterday to 7AM Today Intake and Output (Last 24 hours) Intake Administration Information 1900.00 Oral Intake 960.00 Output Urine Voided 950.00 Intra-Op EBL 10.00 Stool Count 0.00 Total Summary Total Intake 2860.00 Total Output 960.00 Fluid Balance 1900.00 Physical Exam Weight Dosing Weight: 156.5 kg (07/02/22) Dosing Weight: 156.5 kg (07/02/22) Medications Medications (19) Active Scheduled: (10) atorvastatin 40 mg tablet 40 mg 1 tab(s), Oral, qDay doxazosin 2 mg Tablet 2 mg 1 tab(s), Oral, qHS enoxaparin 40 mg/ 0.4mL syringe 40 mg 0.4 mL, Subcutaneous, qDay furosemide 40 mg tablet 40 mg 1 tab(s), Oral, qDay insulin glargine 32 unit(s) 0.32 mL, Subcutaneous (INT), qAM insulin lispro 100 units/mL Soln (3 mL) Give 0-5 units/dose, Subcutaneous, TIDAC lidocaine 1% (MPF) 2 mL vial pf 2.5 mg 0.25 mL, Intradermal, prep pharm losartan 25 mg tablet 25 mg 1 tab(s), Oral, qPM multivitamin tablet 1 tab(s), Oral, qDay spironolactone 25 mg tablet 25 mg 1 tab(s), Oral, Every other day Continuous: (3) Lactated Ringers 1,000 mL 1,000 mL, Intravenous, 50 mL/hr NS (0.9% nacl) 1,000 mL 1,000 mL, Intravenous, 20 mL/hr NS (0.9% nacl) 1,000 mL 1,000 mL, Intravenous, 20 mL/hr PRN: (6) acetaminophen-OXYcodone 325 mg-5 mg Tablet 1 tab(s), Oral, q4h melatonin 3 mg tablet 3 mg 1 tab(s), Oral, qHS morphine 2 mg/mL 1 mL syringe 2 mg 1 mL, IV Push, q1h morphine 4 mg/mL 1mL INJ 4 mg 1 mL, IV Push, q1h nitroglycerin 0.4 mg Tablet (25/btl) 0.4 mg 1 tab(s), Sublingual, q5min prochlorperazine 10 mg/2 mL vial 5 mg 1 mL, IV Push, q6h Lab Results 07/03 04:41 WBC: 5.5 Hgb: 10.8 L Hct: 33.3 L Platelet: 118 L Neutrophil %: 66.5 Glucose Level: 124 H Sodium Level: 143 Potassium Level: 4.6 BUN: 46.0 H Creatinine Lvl (s): 2.47 H 07/02 08:41 Platelet: 132 L Protime: 14.3 PT International Ratio: 1.2 EKG No qualifying data available. Assessment/Plan 1. Left lower extremity skin avulsion 2. HELDER on CPAP 3. CAD status post CABG 4. A. fib on Eliquis 5. CKD 6. Type 2 diabetes 7. Heart failure with preserved ejection fraction 8. Hypertension 9. Hyperlipidemia Patient is status post left lower extremity skin grafting resulting from left lower extremity woundby Dr. Myers. Wound VAC currently in place. Management per primary team. HELDER on CPAP, patient does not currently have his home CPAP. We will continue with CPAP here. CAD status post CABG, okay with primary team to restart baby aspirin 48 hours postop. Continue statin. A. fib on Eliquis, Eliquis on hold, per primary team plan to restart Eliquis once wound VAC is taken down. Most likely restart on discharge. CKD, creatinine elevated 2.4 today, will hydrate with soft IV fluids. Repeat BMP in the morning. Type 2 diabetes, continue home Lantus, ADA diet. Monitor blood sugars. Continue SSI. Heart failure preserved ejection fraction, euvolemic. We will hold home diuretics for today. Hypertension, continue medications. Hyperlipidemia, continue statin. CODE STATUS: Full code Plan of care discussed with patient and at the bedside, case discussed with collaborating physician Dr. Cheney. Time Spent 35 minutes spent with greater than 50% of that time spent on patient care and care coordination. Digitally Signed by KANE MESSER on 07/03/2022 11:12 AM [facility] [id number] Note Date of Service 07/02/2022 Reason for Consultation Medical management of chronic conditions Referring Physician Dr. Myers History of Present Illness This is an 86-year-old male with a past medical history of CAD status post CABG, A. fib on Eliquis at home, CKD, type 2 diabetes, HELDER on CPAP, heart failure with preserved ejection fraction, hyperlipidemia, hypertension, and chronic left lower extremity wound. Hospitalist team was consulted for medical management of chronic conditions. Earlier this year, patient suffered from a lawnmower accidentresulting in a wound to his left lower extremity. Had a debridement of his wound on 05/14/2022, was recommended to have skin grafting which was done today. On my exam, patient is sitting up in bed. Denies chest pain, shortness of breath, nausea, vomiting, diarrhea. Endorses mild left lower extremitypain. Currently on 2 L nasal cannula, does not wear oxygen at home. Noted to be hemodynamically stable, afebrile. Labs reviewed from 06/26/2022, hemoglobin at that time was 12.1, creatinine 2.08, BUN 41. Review of Systems Review of Systems: Reviewed in detail, including general health, HEENT, cardiovascular, respiratory, gastrointestinal, genitourinary, endocrine, musculoskeletal, neurologic, vascular, skin, and psychiatric. All are negative except for those listed in the History of Present Illness Physical Exam Vitals and Measurements T: 36.6 C (Oral) TMIN: 35.43 C TMAX: 36.6 C (Oral) HR: 72(Apical) RR: 22 BP: 122/63 SpO2: 97% HT: 182.9 cm WT: 156.5 kg BMI: 46.78 Weight Dosing Weight: 156.5 kg (07/02/22) Dosing Weight: 156.5 kg (07/02/22) Physical Exam General: No acute distress. Alert, appropriate and awake, oriented to time, people and place Skin: No rash. Warm, Dry, Intact HEENT: Head is normocephalic and atraumatic. No lesions. Pupils equal in size. Extraocular movements within normal limits. Nose: No septal deviation. Mouth: Oropharynx mucosa is without lesion. Neck: Supple. No lymphadenopathy, thyromegaly noted. Lungs: Bilaterally clear/diminished breath sounds with no crepitation or wheeze. Unlabored Cardiovascular: Heart is regular rhythm, S1S2, No extra-audible heart tones Abdomen: Abdomen is soft, nontender. Bowel sounds positive all four quadrants. Extremities: No clubbing, cyanosis or edema. Peripheral pulses palpable. No calf tenderness. Adequate peripheral circulation. Surgical incision with wound VAC to left lower extremity. Neurological: Following simple commands, moving all extremities. Lab Results 07/02 08:41 Platelet: 132 L Protime: 14.3 PT International Ratio: 1.2 Assessment/Plan 1. Left lower extremity skin avulsion 2. HELDER on CPAP 3. CAD status post CABG 4. A. fib on Eliquis 5. CKD 6. Type 2 diabetes 7. Heart failure with preserved ejection fraction 8. Hypertension 9. Hyperlipidemia Patient is status post left lower extremity skin grafting resulting from left lower extremity woundby Dr. Myers. Wound VAC currently in place. Management per primary team. On Lovenox for DVT prophylaxis. HELDER on CPAP, patient does not currently have his home CPAP. We will continue with CPAP here. CAD status post CABG, aspirin on hold until okay with primary team. Continue statin. A. fib on Eliquis, Eliquis on hold, appreciate primary team's recommendation on when to continue this. CKD, creatinine at baseline. Repeat BMP in the morning. Type 2 diabetes, as patient is postop and has reduced oral intake, continue half dose of home Lantus and sliding scale. Monitor blood sugars, ADA diet. Heart failure preserved ejection fraction, euvolemic. Continue home diuretics. Hypertension, continue medications. Hyperlipidemia, continue statin. CODE STATUS: Full code Plan of care discussed with patient and at the bedside, case discussed with collaborating physician Dr. Cheney. Problem List/Past Medical History Ongoing ABNORMAL NUCLEAR STRESS TEST Acute on chronic heart failure with preserved ejection fraction (HFpEF) Arthritis ASHD (arteriosclerotic heart disease) Atrial fibrillation ATRIAL FLUTTER, PAROXYSMAL Avulsion of skin of lower leg CAD IN [place] Carotid artery stenosis CKD (chronic kidney disease) stage 4, GFR 15-29 ml/min CPAP - Continuous positive airways pressure Diabetes mellitus Diastolic CHF Former very heavy cigarette smoker (more than 40 per day) Glasses Hyperlipidemia Hypertension MORBID OBESITY On anticoagulant therapy HELDER ON CPAP Primary osteoarthritis of left hip Prostate hypertrophy Right bundle branch block Wears dentures Historical Cataract Pulmonary embolism Tuberculosis Procedure/Surgical History Cardioversion: 03/06/22 Echocardiogram: 02/19/22 Total knee replacement: 2017 Cardiac catheterization: 02/26/18 Cataract surgery: 2014 Biopsy of prostate: 2009 Total knee replacement: 2007 CABG - Coronary artery bypass graft: 09/18/07 Repair of inguinal hernia: 1991 Anal fissurectomy: 1978 Hemorrhoidectomy Bilateral inguinal hernia repair Tonsillectomy Medications Inpatient Aldactone, 25 mg= 1 tab(s), Oral, Every other day atorvastatin, 40 mg= 1 tab(s), Oral, qDay doxazosin 2 mg oral tablet, 2 mg= 1 tab(s), Oral, qHS HumaLOG 100 units/mL subcutaneous solution, Give 0-5 units/dose, Subcutaneous, TIDAC Lasix, 40 mg= 1 tab(s), Oral, qDay lidocaine 1% preservative-free injectable solution, 2.5 mg= 0.25 mL, Intradermal, prep pharm losartan, 25 mg= 1 tab(s), Oral, qPM Lovenox, 40 mg= 0.4 mL, Subcutaneous, qDay melatonin, 3 mg= 1 tab(s), Oral, qHS, PRN morphine, 2 mg= 1 mL, IV Push, q1h, PRN morphine, 4 mg= 1 mL, IV Push, q1h, PRN Multiple Vitamins oral tablet, 1 tab(s), Oral, qDay Nitrostat, 0.4 mg= 1 tab(s), Sublingual, q5min, PRN NS 1,000 mL, 1000 mL, Intravenous NS 1,000 mL, 1000 mL, Intravenous Percocet 325/5, 1 tab(s), Oral, q4h, PRN prochlorperazine, 5 mg= 1 mL, IV Push, q6h, PRN Home Aldactone 25 mg oral tablet, 25 mg= 1 tab(s), Oral, Every other day, 3 refills aspirin 81 mg oral delayed release tablet, 81 mg= 1 tab(s), Oral, qDay atorvastatin 40 mg oral tablet, 40 mg= 1 tab(s), Oral, qDay, 3 refills doxazosin 2 mg oral tablet, 2 mg= 1 tab(s), Oral, qHS Eliquis 2.5 mg oral tablet, 2.5 mg= 1 tab(s), Oral, BID, 2 refills flesh skin and bone, 2 cap(s), Oral, BID HumaLOG KwikPen 100 units/mL injectable PEN, 6 unit(s), Subcutaneous, acSupper Lasix 40 mg oral tablet, 40 mg= 1 tab(s), Oral, qDay, 3 refills losartan 25 mg oral tablet, 25 mg= 1 tab(s), Oral, qPM Multiple Vitamins oral tablet, 1 tab(s), Oral, qDay Nitrostat 0.4 mg sublingual tablet, 0.4 mg= 1 tab(s), Sublingual, q5min, PRN Ozempic (1 mg dose) 4 mg/3 mL subcutaneous solution, 1 mg, Subcutaneous, qWeek Tresiba 100 units/mL subcutaneous solution, 64 unit(s), Subcutaneous, qAM Allergies Proscar fexofenadine (Unknown) finasteride (Unknown) Social History Smoking Status - 02/26/2018 Former smoker Alcohol - Denies Alcohol Use, 02/26/2018 Use: Never., 04/12/2020 Home/Environment Domestic Concerns: None. Living situation: Home with assistance. Current Home Treatments CPAP. Spouse Name: Aliza. Marital Status: ., 06/26/2022 Nutrition/Health Caffeine intake amount: 1 per day., 07/04/2020 Substance Abuse - Denies Substance Abuse, 02/26/2018 Use: Never., 04/12/2020 Tobacco Nicotine Use: Former smoker, quit more than 30 days ago, quit 1974. Type: Cigarettes. Tobacco use per day: 60. Number of years: 20. Total pack years: 60. Stopped at age: 40 Years. Smokeless Tobacco Use: Never., 05/13/2022 Family History Breast cancer: Mother. Cancer: Father. Diabetes mellitus: Mother and Father. Heart attack: Father. Heart disease: Father. Hyperlipidemia: Mother. Hypertension: Mother. Immunizations pneumococcal 13-valent conjugate vaccine: 0 unknown unit (12/05/15) SARS-CoV-2 (COVID-19) mRNA-1273 vaccine: 0.5 unknown unit (01/03/21) SARS-CoV-2 (COVID-19) mRNA-1273 vaccine: 0.5 unknown unit (12/07/20) tetanus/diphth/pertuss (Tdap) adult/adol: 0 unknown unit (04/20/22) Digitally Signed by KANE MESSER on 07/02/2022 03:40 PM Digitally Signed by KANE MESSER on 07/02/2022 03:42 PM [id number] Note Patient: FEDERICO HU Age: 86 years Sex: Male : 1935 Associated Diagnoses: None Author: ALTAF HINOJOSA MD Assessment Postanesthesia assessment Vitals: Vital signs from flowsheet : Vital Signs 07/02/2022 13:46 EDT Temperature Temporal Artery 36.0 DegC Heart Rate Monitored 73 bpm Respiratory Rate 20 br/min Systolic Blood Pressure NBP 133 mmHg Diastolic Blood Pressure NBP 61 mmHg Mean Arterial Pressure (NBP) 72 mmHg 07/02/2022 13:31 EDT Heart Rate Monitored 73 bpm Respiratory Rate 20 br/min Systolic Blood Pressure NBP 131 mmHg Diastolic Blood Pressure NBP 58 mmHg LOW Mean Arterial Pressure (NBP) 71 mmHg 07/02/2022 13:15 EDT Heart Rate Monitored 71 bpm Respiratory Rate 20 br/min Systolic Blood Pressure NBP 125 mmHg Diastolic Blood Pressure NBP 52 mmHg LOW Mean Arterial Pressure (NBP) 70 mmHg 07/02/2022 13:01 EDT Heart Rate Monitored 76 bpm Respiratory Rate 22 br/min HI Systolic Blood Pressure NBP 122 mmHg Diastolic Blood Pressure NBP 48 mmHg Mean Arterial Pressure (NBP) 63 mmHg 07/02/2022 12:46 EDT Heart Rate Monitored 73 bpm 07/02/2022 12:31 EDT Heart Rate Monitored 78 bpm Respiratory Rate 24 br/min HI Systolic Blood Pressure NBP 125 mmHg Diastolic Blood Pressure NBP 54 mmHg LOW Mean Arterial Pressure (NBP) 67 mmHg 07/02/2022 12:21 EDT Temperature Temporal Artery 36.2 DegC Heart Rate Monitored 80 bpm Respiratory Rate 24 br/min HI Systolic Blood Pressure NBP 119 mmHg Diastolic Blood Pressure NBP 95 mmHg HI Mean Arterial Pressure (NBP) 101 mmHg 07/02/2022 12:10 EDT Respiratory Rate 0 br/min br/min 07/02/2022 12:06 EDT Systolic Blood Pressure NBP 158 mmHg mmHg Diastolic Blood Pressure NBP 111 mmHg mmHg 07/02/2022 12:05 EDT Temperature (Route Not Specified) 35.98 DegC DegC Heart Rate Monitored 86 bpm bpm Respiratory Rate 12 br/min br/min 07/02/2022 12:03 EDT Systolic Blood Pressure NBP 144 mmHg mmHg Diastolic Blood Pressure NBP 73 mmHg mmHg 07/02/2022 12:00 EDT Temperature (Route Not Specified) 35.99 DegC DegC Heart Rate Monitored 77 bpm bpm Respiratory Rate 12 br/min br/min Systolic Blood Pressure NBP 131 mmHg mmHg Diastolic Blood Pressure NBP 80 mmHg mmHg 07/02/2022 11:57 EDT Systolic Blood Pressure NBP 113 mmHg mmHg Diastolic Blood Pressure NBP 52 mmHg mmHg 07/02/2022 11:55 EDT Temperature (Route Not Specified) 36 DegC DegC Heart Rate Monitored 74 bpm bpm Respiratory Rate 12 br/min br/min 07/02/2022 11:54 EDT Systolic Blood Pressure NBP 138 mmHg mmHg Diastolic Blood Pressure NBP 54 mmHg mmHg 07/02/2022 11:51 EDT Systolic Blood Pressure NBP 140 mmHg mmHg Diastolic Blood Pressure NBP 73 mmHg mmHg 07/02/2022 11:50 EDT Temperature (Route Not Specified) 35.94 DegC DegC Heart Rate Monitored 70 bpm bpm Respiratory Rate 12 br/min br/min 07/02/2022 11:48 EDT Systolic Blood Pressure NBP 118 mmHg mmHg Diastolic Blood Pressure NBP 53 mmHg mmHg 07/02/2022 11:45 EDT Temperature (Route Not Specified) 35.92 DegC DegC Heart Rate Monitored 69 bpm bpm Respiratory Rate 12 br/min br/min Systolic Blood Pressure NBP 125 mmHg mmHg Diastolic Blood Pressure NBP 59 mmHg mmHg 07/02/2022 11:42 EDT Systolic Blood Pressure NBP 90 mmHg mmHg Diastolic Blood Pressure NBP 44 mmHg mmHg 07/02/2022 11:40 EDT Temperature (Route Not Specified) 35.84 DegC DegC Heart Rate Monitored 64 bpm bpm Respiratory Rate 12 br/min br/min 07/02/2022 11:39 EDT Systolic Blood Pressure NBP 95 mmHg mmHg Diastolic Blood Pressure NBP 44 mmHg mmHg 07/02/2022 11:37 EDT Systolic Blood Pressure NBP 92 mmHg mmHg Diastolic Blood Pressure NBP 42 mmHg mmHg 07/02/2022 11:36 EDT Systolic Blood Pressure NBP 89 mmHg mmHg Diastolic Blood Pressure NBP 43 mmHg mmHg 07/02/2022 11:35 EDT Temperature (Route Not Specified) 35.71 DegC DegC Heart Rate Monitored 74 bpm bpm Respiratory Rate 12 br/min br/min 07/02/2022 11:33 EDT Systolic Blood Pressure NBP 87 mmHg mmHg Diastolic Blood Pressure NBP 42 mmHg mmHg 07/02/2022 11:30 EDT Temperature (Route Not Specified) 35.43 DegC DegC Heart Rate Monitored 89 bpm bpm Respiratory Rate 12 br/min br/min Systolic Blood Pressure NBP 110 mmHg mmHg Diastolic Blood Pressure NBP 48 mmHg mmHg 07/02/2022 11:27 EDT Systolic Blood Pressure NBP 120 mmHg mmHg Diastolic Blood Pressure NBP 57 mmHg mmHg 07/02/2022 11:25 EDT Heart Rate Monitored 62 bpm bpm Respiratory Rate 2 br/min br/min 07/02/2022 11:21 EDT Systolic Blood Pressure NBP 127 mmHg mmHg Diastolic Blood Pressure NBP 55 mmHg mmHg 07/02/2022 11:20 EDT Heart Rate Monitored 75 bpm bpm Respiratory Rate 0 br/min br/min 07/02/2022 11:18 EDT Systolic Blood Pressure NBP 140 mmHg mmHg Diastolic Blood Pressure NBP 58 mmHg mmHg 07/02/2022 11:15 EDT Heart Rate Monitored 71 bpm bpm Respiratory Rate 0 br/min br/min 07/02/2022 8:35 EDT Temperature Temporal Artery 36.3 DegC Peripheral Pulse Rate 83 bpm Respiratory Rate 16 br/min Systolic Blood Pressure 129 mmHg Diastolic Blood Pressure 60 mmHg Mean Arterial Pressure 83 mmHg 07/01/2022 12:18 EDT Apical Heart Rate 80 bpm Systolic BP Left Arm 118 mmHg Diastolic BP Left Arm 62 mmHg . Mental status: at preoperative baseline. Respiratory function: respirations are non-labored. Respiratory support: none. CV function: Normal rate, Regular rhythm. Cardiovascular support: none. Pain: Post op control see nursing medication documentation. Nausea status: denies nausea. Postoperative hydration status: euvolemic. Digitally Signed by ALTAF HINOJOSA MD on 07/02/2022 03:04 PM [id number] Procedure* ALTAF HINOJOSA MD: PERFORM, SIGN, VERIFY Event Display: Procedure Note Authored Date: Patient: FEDERICO HU Age: 86 years Sex: Male : 1935 Associated Diagnoses: None Author: ALTAF HINOJOSA MD Assessment Postanesthesia assessment Vitals: Vital signs from flowsheet : Vital Signs 07/02/2022 13:46 EDT Temperature Temporal Artery 36.0 DegC Heart Rate Monitored 73 bpm Respiratory Rate 20 br/min Systolic Blood Pressure NBP 133 mmHg Diastolic Blood Pressure NBP 61 mmHg Mean Arterial Pressure (NBP) 72 mmHg 07/02/2022 13:31 EDT Heart Rate Monitored 73 bpm Respiratory Rate 20 br/min Systolic Blood Pressure NBP 131 mmHg Diastolic Blood Pressure NBP 58 mmHg LOW Mean Arterial Pressure (NBP) 71 mmHg 07/02/2022 13:15 EDT Heart Rate Monitored 71 bpm Respiratory Rate 20 br/min Systolic Blood Pressure NBP 125 mmHg Diastolic Blood Pressure NBP 52 mmHg LOW Mean Arterial Pressure (NBP) 70 mmHg 07/02/2022 13:01 EDT Heart Rate Monitored 76 bpm Respiratory Rate 22 br/min HI Systolic Blood Pressure NBP 122 mmHg Diastolic Blood Pressure NBP 48 mmHg <LLOW Mean Arterial Pressure (NBP) 63 mmHg 07/02/2022 12:46 EDT Heart Rate Monitored 73 bpm 07/02/2022 12:31 EDT Heart Rate Monitored 78 bpm Respiratory Rate 24 br/min HI Systolic Blood Pressure NBP 125 mmHg Diastolic Blood Pressure NBP 54 mmHg LOW Mean Arterial Pressure (NBP) 67 mmHg 07/02/2022 12:21 EDT Temperature Temporal Artery 36.2 DegC Heart Rate Monitored 80 bpm Respiratory Rate 24 br/min HI Systolic Blood Pressure NBP 119 mmHg Diastolic Blood Pressure NBP 95 mmHg HI Mean Arterial Pressure (NBP) 101 mmHg 07/02/2022 12:10 EDT Respiratory Rate 0 br/min br/min 07/02/2022 12:06 EDT Systolic Blood Pressure NBP 158 mmHg mmHg Diastolic Blood Pressure NBP 111 mmHg mmHg 07/02/2022 12:05 EDT Temperature (Route Not Specified) 35.98 DegC DegC Heart Rate Monitored 86 bpm bpm Respiratory Rate 12 br/min br/min 07/02/2022 12:03 EDT Systolic Blood Pressure NBP 144 mmHg mmHg Diastolic Blood Pressure NBP 73 mmHg mmHg 07/02/2022 12:00 EDT Temperature (Route Not Specified) 35.99 DegC DegC Heart Rate Monitored 77 bpm bpm Respiratory Rate 12 br/min br/min Systolic Blood Pressure NBP 131 mmHg mmHg Diastolic Blood Pressure NBP 80 mmHg mmHg 07/02/2022 11:57 EDT Systolic Blood Pressure NBP 113 mmHg mmHg Diastolic Blood Pressure NBP 52 mmHg mmHg 07/02/2022 11:55 EDT Temperature (Route Not Specified) 36 DegC DegC Heart Rate Monitored 74 bpm bpm Respiratory Rate 12 br/min br/min 07/02/2022 11:54 EDT Systolic Blood Pressure NBP 138 mmHg mmHg Diastolic Blood Pressure NBP 54 mmHg mmHg 07/02/2022 11:51 EDT Systolic Blood Pressure NBP 140 mmHg mmHg Diastolic Blood Pressure NBP 73 mmHg mmHg 07/02/2022 11:50 EDT Temperature (Route Not Specified) 35.94 DegC DegC Heart Rate Monitored 70 bpm bpm Respiratory Rate 12 br/min br/min 07/02/2022 11:48 EDT Systolic Blood Pressure NBP 118 mmHg mmHg Diastolic Blood Pressure NBP 53 mmHg mmHg 07/02/2022 11:45 EDT Temperature (Route Not Specified) 35.92 DegC DegC Heart Rate Monitored 69 bpm bpm Respiratory Rate 12 br/min br/min Systolic Blood Pressure NBP 125 mmHg mmHg Diastolic Blood Pressure NBP 59 mmHg mmHg 07/02/2022 11:42 EDT Systolic Blood Pressure NBP 90 mmHg mmHg Diastolic Blood Pressure NBP 44 mmHg mmHg 07/02/2022 11:40 EDT Temperature (Route Not Specified) 35.84 DegC DegC Heart Rate Monitored 64 bpm bpm Respiratory Rate 12 br/min br/min 07/02/2022 11:39 EDT Systolic Blood Pressure NBP 95 mmHg mmHg Diastolic Blood Pressure NBP 44 mmHg mmHg 07/02/2022 11:37 EDT Systolic Blood Pressure NBP 92 mmHg mmHg Diastolic Blood Pressure NBP 42 mmHg mmHg 07/02/2022 11:36 EDT Systolic Blood Pressure NBP 89 mmHg mmHg Diastolic Blood Pressure NBP 43 mmHg mmHg 07/02/2022 11:35 EDT Temperature (Route Not Specified) 35.71 DegC DegC Heart Rate Monitored 74 bpm bpm Respiratory Rate 12 br/min br/min 07/02/2022 11:33 EDT Systolic Blood Pressure NBP 87 mmHg mmHg Diastolic Blood Pressure NBP 42 mmHg mmHg 07/02/2022 11:30 EDT Temperature (Route Not Specified) 35.43 DegC DegC Heart Rate Monitored 89 bpm bpm Respiratory Rate 12 br/min br/min Systolic Blood Pressure NBP 110 mmHg mmHg Diastolic Blood Pressure NBP 48 mmHg mmHg 07/02/2022 11:27 EDT Systolic Blood Pressure NBP 120 mmHg mmHg Diastolic Blood Pressure NBP 57 mmHg mmHg 07/02/2022 11:25 EDT Heart Rate Monitored 62 bpm bpm Respiratory Rate 2 br/min br/min 07/02/2022 11:21 EDT Systolic Blood Pressure NBP 127 mmHg mmHg Diastolic Blood Pressure NBP 55 mmHg mmHg 07/02/2022 11:20 EDT Heart Rate Monitored 75 bpm bpm Respiratory Rate 0 br/min br/min 07/02/2022 11:18 EDT Systolic Blood Pressure NBP 140 mmHg mmHg Diastolic Blood Pressure NBP 58 mmHg mmHg 07/02/2022 11:15 EDT Heart Rate Monitored 71 bpm bpm Respiratory Rate 0 br/min br/min 07/02/2022 8:35 EDT Temperature Temporal Artery 36.3 DegC Peripheral Pulse Rate 83 bpm Respiratory Rate 16 br/min Systolic Blood Pressure 129 mmHg Diastolic Blood Pressure 60 mmHg Mean Arterial Pressure 83 mmHg 07/01/2022 12:18 EDT Apical Heart Rate 80 bpm Systolic BP Left Arm 118 mmHg Diastolic BP Left Arm 62 mmHg . Mental status: at preoperative baseline. Respiratory function: respirations are non-labored. Respiratory support: none. CV function: Normal rate, Regular rhythm. Cardiovascular support: none. Pain: Post op control see nursing medication documentation. Nausea status: denies nausea. Postoperative hydration status: euvolemic. Digitally Signed by ALTAF HINOJOSA MD on 07/02/2022 03:04 PM [facility] 08-16-2022 Anesthesiology Consult note Patient: FEDERICO HU Age: 86 years Sex: Male : 1935 Associated Diagnoses: None Author: SONIA PICHARDO DO Preoperative Information Time of last food or liquid consumption: 07/02/2022 00:00:00 Anesthesia history Patient's history: negative. Family's history: negative. History of Present Illness Please refer to most recent H and P / daily progress note / consultation note for further details CHF on furosemide and spironolactone, coronary artery disease CABG X2 2006, pulmonary embolism status post CABG 2006, readmitted 1 day after discharge patient was previously on Coumadin, paroxysmal atrial flutter on Eliquis, carotid artery stenosis, CKD stage IV, diabetes mellitus type 2, hyperlipidemia, hypertension, morbid obesity, and sleep apnea Patient took anticoaguilation uyesteday surgeon is aware wishes to proceed Health Status Allergies: Allergic Reactions (Selected) Severity Not Documented Fexofenadine- Unknown. Finasteride- Unknown. Proscar- No reactions were documented., Allergies (3) ActiveReaction fexofenadineUnknown finasterideUnknown ProscarNone Documented Current medications: (Selected) Inpatient Medications Ordered Kefzol: 3 gram(s), 80 mL, 240 mL/hr, IV Piggyback, PREOP pharm LR 1,000 mL: 20 mL/hr, Intravenous, Stop: 07/02/22 22:59:00 EDT Prescriptions Prescribed Aldactone 25 mg oral tablet: 25 mg, 1 tab(s), Oral, Every other day, 45 tab(s), 3 Refill(s) Eliquis 2.5 mg oral tablet: 2.5 mg, 1 tab(s), Oral, BID, 180 tab(s), 2 Refill(s) Lasix 40 mg oral tablet: 40 mg, 1 tab(s), Oral, qDay, 90 tab(s), 3 Refill(s) atorvastatin 40 mg oral tablet: 40 mg, 1 tab(s), Oral, qDay, 90 tab(s), 3 Refill(s) Documented Medications Documented HumaLOG KwikPen 100 units/mL injectable PEN: 6 unit(s), Subcutaneous, acSupper Multiple Vitamins oral tablet: 1 tab(s), Oral, qDay Nitrostat 0.4 mg sublingual tablet: 0.4 mg, 1 tab(s), Sublingual, q5min, PRN: for chest pain, 0 Refill(s) Ozempic (1 mg dose) 4 mg/3 mL subcutaneous solution: 1 mg, Subcutaneous, qWeek Tresiba 100 units/mL subcutaneous solution: 64 unit(s), Subcutaneous, qAM, 0 Refill(s) aspirin 81 mg oral delayed release tablet: 81 mg, 1 tab(s), Oral, qDay, 0 Refill(s) doxazosin 2 mg oral tablet: 2 mg, 1 tab(s), Oral, qHS, 0 Refill(s) flesh skin and bone: 2 cap(s), Oral, BID, 0 Refill(s) losartan 25 mg oral tablet: 25 mg, 1 tab(s), Oral, qPM, 0 Refill(s), Medications (2) Active Scheduled: (1) ceFAZolin bag 3 gram(s) 80 mL, IV Piggyback, PREOP pharm Continuous: (1) Lactated Ringers 1,000 mL 1,000 mL, Intravenous, 20 mL/hr PRN: (0) Problem list: Medical Acute on chronic heart failure with preserved ejection fraction (HFpEF) / SNOMED CT 4081942535 / Confirmed Arthritis / SNOMED CT 2409337 / Confirmed Atrial fibrillation / SNOMED CT 02166681 / Confirmed Avulsion of skin of lower leg / SNOMED CT 9998813472 / Confirmed Prostate hypertrophy / SNOMED CT 123213167 / Confirmed Carotid artery stenosis / SNOMED CT 601562246 / Confirmed CKD (chronic kidney disease) stage 4, GFR 15-29 ml/min / SNOMED CT 1756126782 / Confirmed ABNORMAL NUCLEAR STRESS TEST / SNOMED CT 5741425641 / Confirmed ASHD (arteriosclerotic heart disease) / SNOMED CT 47658734 / Confirmed CAD IN [place] / SNOMED CT 9295879174 / Confirmed CPAP - Continuous positive airways pressure / SNOMED CT 8626292131 / Confirmed Wears dentures / SNOMED CT 786002694 / Confirmed Diabetes mellitus / SNOMED CT 975445017 / Confirmed Diastolic CHF / SNOMED CT 9571288740 / Confirmed On anticoagulant therapy / SNOMED CT 164171048 / Confirmed Former very heavy cigarette smoker (more than 40 per day) / SNOMED CT 950556271 / Confirmed Glasses / SNOMED CT 9090477757 / Confirmed Hyperlipidemia / SNOMED CT 91260408 / Confirmed Hypertension / SNOMED CT 3185648802 / Confirmed MORBID OBESITY / SNOMED CT 326184451 / Confirmed HELDER ON CPAP / SNOMED CT 250670520 / Confirmed Primary osteoarthritis of left hip / SNOMED CT 1728587441 / Confirmed ATRIAL FLUTTER, PAROXYSMAL / SNOMED CT 0668735056 / Confirmed Right bundle branch block / SNOMED CT 56370516 / Confirmed, Active Problems (24) ABNORMAL NUCLEAR STRESS TEST Acute on chronic heart failure with preserved ejection fraction (HFpEF) Arthritis ASHD (arteriosclerotic heart disease) Atrial fibrillation ATRIAL FLUTTER, PAROXYSMAL Avulsion of skin of lower leg CAD IN [place] Carotid artery stenosis CKD (chronic kidney disease) stage 4, GFR 15-29 ml/min CPAP - Continuous positive airways pressure Diabetes mellitus Diastolic CHF Former very heavy cigarette smoker (more than 40 per day) Glasses Hyperlipidemia Hypertension MORBID OBESITY On anticoagulant therapy HELDER ON CPAP Primary osteoarthritis of left hip Prostate hypertrophy Right bundle branch block Wears dentures Histories Past Medical History: Active Diabetes mellitus (866502110) Hypertension (3997680522) Prostate hypertrophy (349785655) Arthritis (1719933) Right bundle branch block (34445317) Diastolic CHF (2593594927) ASHD (arteriosclerotic heart disease) (85379891) Resolved 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 Resolved. Cataract (575193628): Resolved. Pulmonary embolism (46372833): Resolved. Family History: Cancer Father Diabetes mellitus Mother Father Breast cancer Mother Hypertension Mother Heart disease Father Heart attack Father Hyperlipidemia Mother Procedure history: Cardioversion ([id number]) on 03/06/2022 at 86 Years. Echocardiogram ([id number]) on 02/19/2022 at 86 Years. Total knee replacement ([id number]) in 2018 at 83 Years. Comments: 05/13/2022 7:51 CEFERINO Flores right Cardiac catheterization ([id number]) on 02/26/2018 at 82 Years. Cataract surgery ([id number]) in 2014 at 80 Years. Biopsy of prostate ([id number]) in 2009 at 75 Years. Total knee replacement ([id number]) in 2007 at 73 Years. Comments: 05/13/2022 7:51 CEFERINO Flores left CABG - Coronary artery bypass graft ([id number]) on 09/18/2007 at 71 Years. Repair of inguinal hernia ([id number]) in 1991 at 57 Years. Comments: 05/13/2022 7:52 EDT - CEFERION Galdamez left Anal fissurectomy ([id number]) in 1978 at 44 Years. Hemorrhoidectomy ([id number]). Bilateral inguinal hernia repair ([id number]). Tonsillectomy ([id number]). Social History Social & Psychosocial Habits Alcohol 02/26/2018Risk Assessment: Denies Alcohol Use 04/12/2020 Use: Never Substance Abuse 02/26/2018Risk Assessment: Denies Substance Abuse 04/12/2020 Use: Never Tobacco 05/13/2022 Tobacco Use: Former smoker, quit more, quit 1975 Type: Cigarettes Tobacco use per day: 60 Number of years: 20 Total pack years: 60 Stopped at age: 40 Years Smokeless tobacco use: Never Home/Environment 06/26/2022 Domestic Concerns None Living situation: Home with assistance Current Home Treatments CPAP Spouse Name Aliza Marital Status of Patient if Patient Independent Adult: Nutrition/Health 07/04/2020 Caffeine intake amount: 1 per day . Physical Examination Vital Signs 07/02/2022 8:35 EDT Temperature Temporal Artery 36.3 DegC Peripheral Pulse Rate 83 bpm Respiratory Rate 16 br/min Systolic Blood Pressure 129 mmHg Diastolic Blood Pressure 60 mmHg Mean Arterial Pressure 83 mmHg 07/01/2022 12:18 EDT Apical Heart Rate 80 bpm Systolic BP Left Arm 118 mmHg Diastolic BP Left Arm 62 mmHg Vital Signs(last 24 hrs) Last Charted Resp Rate 16 br/min (JUL 02 08:35) Measurements from flowsheet : Measurements 07/02/2022 8:35 EDT Height 182.9 cm Height in inches 72 inch(es) Admission Weight 156.5 kg Weight Lbs 344.3 lb Weight Method Actual [place] Body Weight 77.62 kg Type of Scale Used Bed scale Admission Body Mass Index 46.78 m2 07/01/2022 12:18 EDT Height 182.9 cm Height in inches 72 inch(es) Admission Weight 159.0 kg Weight Lbs 349.8 lb [place] Body Weight 77.62 kg BSA Admission 2.7 Body Mass Index 47.53 kg/m2 Pain assessment: Pain Assessment 07/02/2022 8:35 EDT Primary Pain Intensity 0 Pain Scale Type 0-10 Pain scale . General: Alert and oriented. Airway: Mallampati classification: III (soft palate, base of uvula visible), short thryomental distance . Dentition Evaluation: Missing teeth, Dentures, upper. Respiratory: Respirations are non-labored. Cardiovascular: Normal rate, Regular rhythm. Heart Sounds: Normal. Neurologic: Alert, Oriented. Review / Management Results review: Labs (Last four charted values) Plt L 132(JUL 02) PT 14.3(JUL 02) INR 1.2(JUL 02) PTT 31.2(JUL 02) , Lab results 07/02/2022 10:18 EDT SN - Preop - CTm - Transport to Rec 07/02/2022 10:18 07/02/2022 9:15 EDT Notify date/time 07/02/2022 9:15 Provider Notified SONIA PICHARDO DO Notification Method Phone Information Communicated Nurse communication Details Communicated Dr. Pichardo notified of patient taking asa and eliquis yesterday morning. Nonew orders received Notification Outcome Orders not received 07/02/2022 9:10 EDT Notify date/time 07/02/2022 9:10 Provider Notified LAURENT MYERS MD Notification Method Office Information Communicated Nurse communication Details Communicated Dr. Myers's field secretary notified of Patient had asa and eliquis yesterday morning. She stated that Dr. Myers is aware. Notification Outcome Orders not received 07/02/2022 9:07 EDT SN - Preop - CTm Pt Ready for OR/Proced 07/02/2022 9:07 07/02/2022 9:03 EDT Lactated Ringers Injection Begin Bag 1,000 mL mL 07/02/2022 9:02 EDT Wrist Left 07/02/2022 20 gauge Peripheral IV Activity: Insert new site Peripheral IV Dressing Condition: Clean, Dry, Intact Peripheral IV Dressing Activity: Applied, Transparent dressing Peripheral IV Site Condition: No complications Peripheral IV Equipment: Manual Peripheral IV Number of Attempts: 2 07/02/2022 9:00 EDT Individuals Taught Patient, Spouse Learning Readiness Willing to learn Barriers to Learning None evident Teaching Method Explanation, Printed materials Preferred Written Language Irish Family/Caregiver Prefer Written Language Irish Preferred Spoken Language Irish Family/Caregiver Prefer Spoken Language Irish Surgical Site Infection Prevention SSI FAQ provided Infection Prevention Teaching Evaluation Verbalizes/Nonverbally indicates understanding Pre Procedure/Surgery Education Appropriate expectations, Bring glasses, hearing aids, contact lenscase, Date/Time of procedure/surgery, Hospital gown requirement worn to OR, Leave valuables, jewelry, wedding ring at home, Meds to take or hold, NPO Procedure/Surgical Teaching Evaluation Verbalizes/Nonverbally indicates understanding 07/02/2022 8:46 EDT SN - Preop - CTm Pt in SDS Room 07/02/2022 8:35 07/02/2022 8:41 EDT Platelet 132 10^3/mcL LOW Heparin dose (APTT) Unknown APTT 31.2 seconds Protime 14.3 seconds PT International Ratio 1.2 ratio NA Fibrinogen 566 mg/dL [place] 07/02/2022 8:36 EDT Sensory Deficits None Alcohol and Drug Use No (Modified) Safety Brochure Information Reviewed Yes Arian Goodwin Video Viewed No Barriers to Learning None evident Teaching Method Explanation, Printed materials Teaching Evaluation Verbalizes/Nonverbally indicates understanding Discharge To, Anticipated Home independently Personal Devices, Patient Valuables Dentures, lower, Dentures, upper, Glasses Admission Note-Nursing Same Day Patient History (Modified) 07/02/2022 8:35 EDT Blood Glucose, Capillary 121 mg/dL [place] Blood Glucose Testing Reason Routine Height 182.9 cm Height in inches 72 inch(es) Admission Weight 156.5 kg Weight Lbs 344.3 lb Weight Method Actual [place] Body Weight 77.62 kg Type of Scale Used Bed scale Admission Body Mass Index 46.78 m2 Temperature Temporal Artery 36.3 DegC Peripheral Pulse Rate 83 bpm Respiratory Rate 16 br/min Systolic Blood Pressure 129 mmHg Diastolic Blood Pressure 60 mmHg Mean Arterial Pressure 83 mmHg Primary Pain Intensity 0 Pain Scale Type 0-10 Pain scale Nail Bed Color [place] Capillary Refill < 2 seconds Heart Rhythm Regular Respirations Unlabored Respiratory Pattern Regular All Lobes Breath Sounds Clear, Equal Cough None Oxygen Therapy Room air Oxygen Saturation 96 % Abdomen Description Non-distended, Soft Abdomen Palpation Non-Tender, Soft Bowel Movement Last Date 07/01/2022 Bowel Sounds All Quadrants Present Urinary Elimination Voiding, no difficulties Skin Temperature Warm Skin Description [place], Dry Skin Integrity Intact Neurological Symptoms Patient denies Characteristics of Speech Clear Level of Consciousness Alert Strength All Extremities Strong Tone All Extremities Normal Sensation All Extremities Intact Violence Risk Confused No Violence Risk Irritable No Violence Risk Boisterous No Violence Risk Verbal Threats No Violence Risk Physical Threats No Violence Risk Attacking Objects No Violence Risk Predictor Score 0 Violence Risk Intervention None Violence Risk Current Interventions None Affect/Behavior Appropriate, Cooperative Orientation Oriented x 4 Allergies Yes Colon Prep Results N/A Consent Form Signed Yes Patient Dressed In Hospital gown Pre-op Preparation Glasses removed CHG Preoperative Wash/Wipe Not done Non-CHG Preoperative Shampoo Not applicable Preop Nasal Swab Povidone-Iodine CHG Skin Prep No History & Physical Update On Chart Yes History & Physical On Chart Yes Bowel Prep Completed No Pre-op Carbohydrate Drink No Obstructive Sleep Apnea Assess Completed Yes MRSA/MSSA Protocol No Belongings At Bedside Pt participated in reconciliation, Other: All belongings with at bedside. She plans on taking everything home Activity Status ADL Awake NPO Status Maintained Standard Safety ID band on, Allergy Band on, Call device within reach, Bed in low position, Visitorat bedside, Safety level maintained Demonstrates Correct Call Light Use Yes Allergy Band on and Verified Yes Blood Band on and Verified No Patient ID Band on and Verified Yes Implants Verified Yes Pacemaker/AICD Verified No Last Fluid Intake 07/01/2022 21:00 Last Food Intake 07/01/2022 20:00 Last Void 07/02/2022 8:00 07/02/2022 8:25 EDT ABISAIaliza PATEL 07/01/2022 13:37 EDT Surgery Scheduled On Date/Time 07/02/2022 10:35 Patient Aware Date/Time Of Surgery Yes Arrival Time the Day of Surgery 07/02/2022 8:35 Patient Aware of Arrival Time Yes Pre-Op Patient Education NPO after midnight, No smoking after midnight, No jewelry, Responsible Alliance Party, Aware of surgery location, Pre-op education done, 2 bottles CHG wash with instructions given, Noordered medications (Modified) SN - Preprocedure Comments Verbalizes/Nonverbally indicates understanding, Other: INSTRUCTED TO BRING MEDICATIONS IN ORIGINAL CONTAINERS DAY OF SURGERY,SPOKE WITH ALIZA Oliver Note-Nursing Date\Time Correction 07/01/2022 13:06 EDT Cardiology Office Note Office Visit Note History of Present Illness Documentation History of Present Illness Documentation Impression and Plan Documentation Impression and Plan Documentation Review of Systems Documentation Review of Systems Documentation Physical Examination Documentation Physical Examination Documentation 07/01/2022 12:18 EDT Height 182.9 cm Height in inches 72 inch(es) Admission Weight 159.0 kg Weight Lbs 349.8 lb [place] Body Weight 77.62 kg BSA Admission 2.7 Body Mass Index 47.53 kg/m2 Apical Heart Rate 80 bpm Systolic BP Left Arm 118 mmHg Diastolic BP Left Arm 62 mmHg Advanced Directives No - refuses information Chief Complaint surgical clearance Comprehensive Intake-Specialty OfficeAMB Ambulatory Comprehensive Intake - Specialty Office Preferred Lab [place] facility Preferred Rad [facility] 07/01/2022 11:56 EDT Glucose Level 164 mg/dL HI Sodium Level 138 mEq/L Potassium Level 4.5 mEq/L Chloride 107 mEq/L CO2 32 mEq/L Electrolyte Balance -1.0 mEq/L LOW BUN 52.0 mg/dL HI Creatinine Lvl (s) 2.23 mg/dL HI BUN/Creatinine Ratio 23.3 ratio HI Calcium Lvl 10.9 mg/dL HI GFR Non- 28 ml/min/1.73sqm NA GFR 34 ml/min/1.73sqm NA 07/01/2022 0:00 EDT EKG Report Scanned EKG Report Scanned Medical/Surgical Clearance Scanned Medical/Surgical Clearance Scanned . Assessment and Plan [place] [employer] Anesthesiologists (ASA) physical status classification: Class IV. Anesthetic Preoperative Plan Anesthetic technique: General. Induction: intravenously. Maintenance airway: Oral endotracheal tube. Postoperative pain management: Per surgeon. Risks discussed: nausea, vomiting, headache, sore throat, dental injury, hypotension, allergic reaction, serious complications. Informed consent: signed by patient. Notes: Extensive time was spent discussing with the patient the inherent risks of anesthesia including but not limited too sore throat, dental injuries to teeth and gums, corneal abrasions, risk of heart attack, stroke, end organ dysfunction, and . The patient is aware of these risks, accepts them and wishes to proceed with anesthesia. CHF on furosemide and spironolactone, coronary artery disease CABG X2 2006, pulmonary embolism status post CABG 2006, readmitted 1 day after discharge patient was previously on Coumadin, paroxysmal atrial flutter on Eliquis, carotid artery stenosis, CKD stage IV, diabetes mellitus type 2, hyperlipidemia, hypertension, morbid obesity, and sleep apnea patient took anticoagulation uyesterday surgeon aware wishes to proceed . Digitally Signed by SONIA PICHARDO DO on 07/02/2022 10:34 AM [id number] History of Present illness Narrative* Adriana Garrison, [facility] - 06/25/2022 2:30 PM EDT Primary Care Pharmacy Visit REASON FOR CONSULT: DM GOALS: A1c < 8% CONSULTING PROVIDER: Nithin Acevedo MD Date of Consult: 12/01/2020 Federico Hu is a 86 year old male presenting for follow up visit by telephone. Patient consents to pharmacy collaborative practice agreement. Last seen by PCP, Dr. Nithin Acevedo MD on 06/12/22. At last PCP appt, A1c POC completed which showed improved control. INTERIM HISTORY: Patient reports feeling better overall Recovering from leg injury, will have a skin graft later in the month. [facility] [place] [facility] Patient reports blood sugar readings are improving (see log below) He has made slight adjustments to insulin regimen and taking as below No low BG readings Current DM Medications: Semaglutide (Ozempic) 1 mg once weekly on Friday mornings Insulin degludec (Tresiba) 60 units daily at bedtime - taking differently: 64 units once daily Insulin aspart 6 units before dinner - taking differently: 8 units once daily Preventative Medications: On BRIAN/ARB: Yes On Statin: Yes GLYCEMIC CONTROL: Glucometer present at visit: Yes SMBG s: Date Fasting AM 2 hr PP Before Lunch 2 hr PP Before Dinner 2 hr PP Bedtime 06/25 121 88 113 8/7 102 8/6 105 8/5 121 8/4 155 8/3 130 8/2 109 8/1 118 AVG 119 Hypoglycemia: denies ROS: Patient denies CP, SOB, LUIS, blurred vision, dizziness or lightheadedness Patient denies nausea, vomiting, diarrhea, abdominal pain Patient denies symptoms of hypoglycemia (sweating, anxiety, palpitations, hunger, and tremor) Patient denies symptoms of hyperglycemia (polyuria, polydipsia, polyphagia) Patient denies potential medication adverse effects MEDICATIONS: Pill bottles are not present Adherence: denies missed doses. Pharmacy: [facility] [place] Rx coverage: not addressed Affordability: no concerns at this time Diabetes supplies: True Porphyrio System: not addressed ACTIVE PROBLEM LIST Obesity, Class Iii, Bmi 40-49.9 (Morbid Obesity) ([facility]) Type 2 Diabetes Mellitus With Neurological Manifestations, Controlled ([facility]) Essential Hypertension Coronary Atherosclerosis Hyperlipemia Bph With Obstruction/Lower Urinary Tract Symptoms Anemia Oa (Osteoarthritis) of Knee Atrial Fibrillation ([facility]) S/P Cabg X 2 Rbbb (Right Bundle Branch Block) Encounter for Monitoring Anti-Arrhythmic Therapy Ckd (Chronic Kidney Disease) Stage 4, Gfr 15-29 Ml/Min ([facility]) Chronic Diastolic Chf (Congestive Heart Failure) ([facility]) 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 Hypercalcemia Wound of Left Leg Recurrent Epistaxis PAST MEDICAL HISTORY Diagnosis Date Anal fissure 06/19/2006 Atrial fibrillation ([facility]) 05/13/2016 Benign localized hyperplasia of prostate with urinary obstruction and other lower urinary tract symptoms (LUTS)(600.21) 11/30/2009 CAROTID ART OCCL-NO INFARCT 01/31/2009 Carotid US 1-09: > 50% on the R, < 50% on the L Chronic diastolic CHF (congestive heart failure) ([facility]) 07/22/2018 CKD (chronic kidney disease) stage 4, GFR 15-29 ml/min ([facility]) 07/22/2018 CORONARY ATHEROSCLER UNSPEC VESSEL 01/03/2009 2 V CABG at age 71 ECG 2: RBBB per Manish ELEVATED PROSTATE SPECIFIC ANTIGEN 02/01/2009 PSA 4.2 in 3-09: repeat with free PSA and MARIO in follow up 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 Rothman for injections. HELDER on CPAP Primary osteoarthritis of left hip 11/02/2020 RBBB (right bundle branch block) 07/30/2016 S/P CABG x 2 07/30/2016 Skin mass 10/26/2010 Lipoma, left forehead SLEEP DISTURBANCE NOS 01/31/2009 03-09-09: effic 89%, AHI 3, low sat 86% (< 89% only 1.2 minutes), PLMI 7.5/hr Type II or unspecified type diabetes mellitus without mention of complication, uncontrolled 04/2003 Unspecified essential hypertension 09/2003 ALLERGIES Allergen Reactions Proscar [Finasterid* Rash Current Outpatient Medications Medication Sig rivaroxaban (XARELTO) 15 mg tablet Take 1 tablet by mouth daily with dinner. insulin glargine (LANTUS SOLOSTAR U-100 INSULIN) 100 unit/mL (3 mL) Inject 60 Units subcutaneously every morning. insulin aspart U-100 (NOVOLOG FLEXPEN U-100 INSULIN) 100 unit/mL (3 mL) Inject 6 Units subcutaneously daily with dinner. Patient assistance. (will switch from Humalog sample to Novolog when supply arrives) insulin lispro (HUMALOG KWIKPEN) 100 unit/mL Inject 6 Units subcutaneously daily with dinner. losartan (COZAAR) 25 mg tablet Take 1 tablet by mouth once daily. doxazosin (CARDURA) 2 mg tablet Take 1 tablet by mouth daily at bedtime. sotalol (BETAPACE) 80 mg tablet Take 0.5 tablets by mouth twice daily. semaglutide (OZEMPIC) 1 mg/dose (4 mg/3 mL) pen injector Inject 1 mg subcutaneously one time a week. furosemide (LASIX) 20 mg tablet Take 1 tablet by mouth once daily. insulin degludec (TRESIBA FLEXTOUCH U-100) 100 unit/mL (3 mL) injection pen Inject 60 Units subcutaneously every morning. Pt Assistance Medication. (Patient taking differently: Inject 64 Units subcutaneously every morning. Pt Assistance Medication. ) blood sugar diagnostic (TRUE METRIX GLUCOSE TEST STRIP) test strip Test twice daily. Dx: E11.49. Insulin: Yes. atorvastatin (LIPITOR) 40 mg tablet Take 40 mg by mouth once daily. azelastine-fluticasone (DYMISTA) 137-50 mcg/spray spry Use 1 [place] in each nostril twice daily. spironolactone (ALDACTONE) 25 mg tablet Take 1 tablet by mouth once daily. cholecalciferol, vitamin D3, (VITAMIN D3 ORAL) Take 2,000 Units by mouth once daily. LOW-DOSE ASPIRIN ORAL Take 81 mg by mouth once daily. insulin needles, DISPOSABLE, 31 gauge x 5/16 ndle Test blood sugar twice a day DX:E11.49 nitroglycerin sublingual (NITROQUICK) 0.4 mg SL tablet Dissolve 1 tablet under the tongue as neededfor Chest Pain. If no pain relief call 911. MULTIVITAMIN TAB Take one(1) tablet daily. No current facility-administered medications for this visit. EXAM: Last 3 Encounter BP Readings: Date: BP: 06/12/2022 130/68 11/23/2021 144/78[bp true[ 07/05/2021 113/70 Wt: 155.1 kg (342 lb) BMI: 47.70 kg/(m^2) LABS: Lab Results Component Value Date HBA1C 6.9 06/12/2022 HBA1C 8.9 02/22/2022 HBA1C 9.3 11/15/2021 HBA1C 8.0 06/01/2021 HBA1C 11.6 03/02/2021 CMP: Glucose 175 06/04/2022 BUN 38 02/22/2022 Creatinine, Whole Blood (iSTAT) 2.32 06/04/2022 Sodium 142 06/04/2022 Potassium 4.8 06/04/2022 Chloride 107 06/04/2022 CO2 29 02/22/2022 Protein, Total 6.2 02/22/2022 Albumin 4.0 11/15/2021 Calcium 10.5 06/04/2022 Alkaline Phosphatase 83 11/15/2021 Bilirubin, Total 0.5 11/15/2021 AST 24 11/15/2021 ALT 26 11/15/2021 Serum creatinine: 2.32 mg/dL (A) 06/04/22 0000 Estimated creatinine clearance: 35.3 mL/min (A) GFR (mL/MIN) Date Value 06/04/2022 27 eGFR- (no units) Date Value 11/15/2021 46 Vitamin B12 Date Value Ref Range Status 09/11/2017 850 211 - 946 pg/mL Final Lab Results Component Value Date CHOL 98 11/15/2021 LDL 37 11/15/2021 HDL 35 11/15/2021 TG 129 11/15/2021 The ASCVD Risk score (Richmondgagan DAVIDSON Jr., et al., 2013) failed to calculate for the following reasons: The 2013 ASCVD risk score is only valid for ages 40 to 79 Albumin/Creat Ratio (mg/g) Date Value 11/15/2021 39 (H) PHARMACOTHERAPY ASSESSMENT/PLAN: 1. Type 2 diabetes mellitus with neurological manifestations, controlled (HCC) - ICD9: 250.60, ICD10: E11.49 A1c goal < 8%; at goal (last A1c 8.9%); SMBG improving on current regimen. Denies s/sx of hypoglycemia. Patient has self-adjusted regimen doses and BG readings have improved. Recommended to monitor for s/sx of hypoglycemia and to consider monitoring BG 2 hours after dinner to assess post prandial control. Renal function and LFTs appropriate for continued use CONTINUE Semaglutide (Ozempic) 1 mg once weekly Adjusted med list to match patients doses: Insulin degludec (Tresiba) 64 units daily at bedtime, insulin aspart (Novolog) 8 units before dinner - TRESIBA FLEXTOUCH U-100 INSULIN 100 UNIT/ML (3 ML) SUBCUTANEOUS PEN Follow up: Patient is scheduled to see PCP on 12/13/22. Patient to follow up with PharmD on 08/20/22. Patient verbalized understanding of instructions. Adriana Garrison PharmD, BCACP Primary Care Clinical Pharmacist [facility] The majority of the pharmacy visit (> 50%) was spent counseling and/or coordinating care for thepatient. [Telephonic] time was 18 minutes. documented in this encounterKing[facility] [place] Instructions* Patient Instructions* Nithin Acevedo MD - 06/12/2022 2:49 PM EDT SHINGRIX VACCINE(2 of 3) due on 12/09/2012 COVID-19 VACCINE(3 - Booster for Moderna series) due on 06/02/2021 ADVANCE DIRECTIVE COPY. DILATED RETINAL EXAM due on 06/25/2022 FASTING LABS IN 6 MONTHS. documented in this encounterKing[facility] [place] History of Present illness Narrative* Nithin Acevedo MD - 06/12/2022 2:14 PM EDT Yearly Visit Federico Hu was here for his annual visit. He was having frequent epistaxis. His commutator operator recommended ENT and changed apixiban to rivaroxaban. He injured his left leg 1.5 months ago, and developed a non healing wound of the left leg. He was going for Wound Care at [facility]. His neighbor was doing wound dressings. He had scheduled plastic surgery of the left leg at [facility]. His diabetes mellitus was reportedly controlled. PAST MEDICAL HISTORY Diagnosis Date Anal fissure 06/19/2006 Atrial fibrillation (HCC) 05/13/2016 Benign localized hyperplasia of prostate with urinary obstruction and other lower urinary tract symptoms (LUTS)(600.21) 11/30/2009 CAROTID ART OCCL-NO INFARCT 01/31/2009 Carotid US -09: > 50% on the R, < 50% on the L Chronic diastolic CHF (congestive heart failure) ([facility]) 07/22/2018 CKD (chronic kidney disease) stage 4, GFR 15-29 ml/min ([facility]) 07/22/2018 CORONARY ATHEROSCLER UNSPEC VESSEL 01/03/2009 2 V CABG at age 71 ECG 12-26: RBBB per Manish ELEVATED PROSTATE SPECIFIC ANTIGEN 02/01/2009 PSA 4.2 in 01-23: repeat with free PSA and MARIO in follow up 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 Rothman for injections. HELDER on CPAP Primary osteoarthritis of left hip 11/02/2020 RBBB (right bundle branch block) 07/30/2016 S/P CABG x 2 07/30/2016 Skin mass 10/26/2010 Lipoma, left forehead SLEEP DISTURBANCE NOS 01/31/2009 03-09-09: effic 89%, AHI 3, low sat 86% (< 89% only 1.2 minutes), PLMI 7.5/hr Type II or unspecified type diabetes mellitus without mention of complication, uncontrolled 04/2003 Unspecified essential hypertension 09/2003 PAST SURGICAL HISTORY Procedure Laterality Date ARTHRP KNE CONDYLE&PLATU MEDIAL&LAT COMPARTMENTS Left 01/01/2008 Knee replacement, total, Left ARTHRP KNE CONDYLE&PLATU MEDIAL&LAT COMPARTMENTS Right 04/14/2018 CARDIAC CATH 02/26/2018 COLONOSCOPY FLX DX W/COLLJ SPEC WHEN PFRMD 08/01/06 Posterior anal fissure CORONARY ARTERY BYP W/VEIN & ARTERY GRAFT 2 VEIN 2006 CABG, two grafts PAST SURGICAL HISTORY OF 07/1979 anal fissure repair PROSTATE BIOPSY RPR 1ST INGUN HRNA AGE 6 YRS/> REDUCIBLE 09/27/1992 Hernia repair, inguinal, left laparoscopic ALLERGIES: Proscar [Finasteride] Current Outpatient Medications Medication Sig apixaban (ELIQUIS) 2.5 mg tab(s) Take by mouth twice daily. insulin glargine (LANTUS SOLOSTAR U-100 INSULIN) 100 unit/mL (3 mL) Inject 60 Units subcutaneously every morning. insulin aspart U-100 (NOVOLOG FLEXPEN U-100 INSULIN) 100 unit/mL (3 mL) Inject 6 Units subcutaneously daily with dinner. Patient assistance. (will switch from Humalog sample to Novolog when supply arrives) insulin lispro (HUMALOG KWIKPEN) 100 unit/mL Inject 6 Units subcutaneously daily with dinner. losartan (COZAAR) 25 mg tablet Take 1 tablet by mouth once daily. doxazosin (CARDURA) 2 mg tablet Take 1 tablet by mouth daily at bedtime. sotalol (BETAPACE) 80 mg tablet Take 0.5 tablets by mouth twice daily. semaglutide (OZEMPIC) 1 mg/dose (4 mg/3 mL) pen injector Inject 1 mg subcutaneously one time a week. furosemide (LASIX) 20 mg tablet Take 1 tablet by mouth once daily. insulin degludec (TRESIBA FLEXTOUCH U-100) 100 unit/mL (3 mL) injection pen Inject 60 Units subcutaneously every morning. Pt Assistance Medication. (Patient taking differently: Inject 64 Units subcutaneously every morning. Pt Assistance Medication. ) blood sugar diagnostic (TRUE METRIX GLUCOSE TEST STRIP) test strip Test twice daily. Dx: E11.49. Insulin: Yes. atorvastatin (LIPITOR) 40 mg tablet Take 40 mg by mouth once daily. azelastine-fluticasone (DYMISTA) 137-50 mcg/spray spry Use 1 [place] in each nostril twice daily. spironolactone (ALDACTONE) 25 mg tablet Take 1 tablet by mouth once daily. cholecalciferol, vitamin D3, (VITAMIN D3 ORAL) Take 2,000 Units by mouth once daily. LOW-DOSE ASPIRIN ORAL Take 81 mg by mouth once daily. insulin needles, DISPOSABLE, 31 gauge x 04/01 ndle Test blood sugar twice a day DX:E11.49 nitroglycerin sublingual (NITROQUICK) 0.4 mg SL tablet Dissolve 1 tablet under the tongue as neededfor Chest Pain. If no pain relief call 911. MULTIVITAMIN TAB Take one(1) tablet daily. No current facility-administered medications for this visit. FAMILY HISTORY Problem Relation Age of Onset Coronary Artery Disease Father age 69 Diabetes Father Breast Cancer Mother age 75 Diabetes Mother GI Brother SOCIAL HISTORY: Social History Tobacco Use Smoking status: Former Smoker Packs/day: 3.00 Years: 20.00 Pack years: 60.00 Types: Cigarettes Quit date: 11/17/1974 Years since quittin.6 Smokeless tobacco: Never Used Substance Use Topics Alcohol use: No Drug use: No List of current specialists seen: Dr. Caitlin Jacques, and Dr. Len Strickland, cardiology. Dr. Laurent Myers, wound care. Dr. Momo Lee, [facility] pulmonary. Dr. De Souza, ophthalmology. Dr. Porras, podiatry. End of Live Planning discussed including patients advanced directive wishes: Yes I am willing to follow Federico's advanced directives. Copy needed. PHYSICAL EXAM BP 130/68 (BP Site: Left Arm, BP Position: Sitting, BP Cuff Size: Large Adult) Pulse 64 Temp 36C (96.8 F) (Temporal Artery) Resp 18 Ht 180.3 cm (5' 11) Wt (!) 155.1 kg (342 lb) BMI 47.70 kg/m Alert and oriented X 3: YES Body mass index is 47.7 kg/m . Visual acuity: OD: 20/50 OS: 20/ 50 OU: 20/50 The Mini Cog(c): Word recall=1/3 + Clock drawing=2/2=3/5. (<3 is positive). General Appearance: Morbidly obese and ambulatory with cane. Eyes: Anicteric sclera. Pupils are equally round and reactive to light. Extraocular movements are intact. . Nose/Sinuses: Nares normal, septum midline, mucosa normal, no drainage or sinus tenderness. Oropharynx: Clear. Neck: Negative findings: no adenopathy, carotids without bruits. Lungs: Lungs clear to auscultation. No wheezing, rhonchi, rales.. Heart: S2, S2, S4, RRR, no murmur or gallop.. Abdomen: Abdomen soft, non-tender. No masses, organomegaly. Extremities: Edema: 1-2+. Left leg wrapped. . Neurologic: Non focal. Feet:Shoes and socks removed, No ulcers or calluses, trace DP distal pulses and not sensitive to monofilament in the toes. ASSESSMENT/PLAN: 1. Encounter for routine adult medical examination - ICD9: V70.0, ICD10: Z00.00 (primary diagnosis) - Counseled on healthy diet and regular exercise - Discussed need for and benefit of weight loss. BMI 47.70 kg/(m^2) - See vaccines recommended. - ADVANCE CARE PLAN DISCUSSION 2. Atrial fibrillation, unspecified type (HCC) - ICD9: 427.31, ICD10: I48.91 Medication list updated. - RIVAROXABAN 15 MG TABLET 3. Type 2 diabetes mellitus with neurological manifestations, controlled ([facility]) - ICD9: 250.60, ICD10: E11.49 improved control - Continue current medications - HEMOGLOBIN A1C (POC) - COMP METABOLIC PANEL - LIPID PANEL BASIC - ALBUMIN/CREAT RATIO RND UR - HGB A1C 4. Essential hypertension - ICD9: 401.9, ICD10: I10 - good control - Continue current medication(s) 5. Atherosclerosis of [place] coronary artery of [place] heart without angina pectoris - ICD9: 414.01, ICD10: I25.10 Stable. 6. Obesity, Class III, BMI 40-49.9 (morbid obesity) ([facility]) - ICD9: 278.01, ICD10: E66.01 Stable 7. CKD (chronic kidney disease) stage 4, GFR 15-29 ml/min ([facility]) - ICD9: 585.4, ICD10: N18.4 Stable. 8. Chronic diastolic CHF (congestive heart failure) ([facility]) - ICD9: 428.32, 428.0, ICD10: I50.32 Controlled. 9. Recurrent epistaxis - ICD9: 784.7, ICD10: R04.0 - CONSULT TO ENT 10. Wound of left lower extremity, sequela - ICD9: 906.1, ICD10: S81.802S [facility] with [facility]. Nithin Acevedo MD documented [facility] this encounter[facility] [place] History of Past illness Narrative* Problem Noted Date Resolved Date Wound of left leg 06/12/2022 05/09/2023 Recurrent epistaxis 06/12/2022 05/09/2023 CKD (chronic kidney disease) stage 3, GFR 30-59 ml/min 09/20/2017 12/15/2018 COPD with exacerbation 08/07/2016 0 Skin mass 10/26/2010 05/13/2013 Overview: Lipoma, left forehead Benign localized hyperplasia of prostate with urinary obstruction and other lower urinary tract symptoms (LUTS)(600.21) 11/30/2009 10/09/2010 Elevated prostate specific antigen (PSA) 009 01/19/2018 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 01/31/2009 01/26/2019 Overview: Carotid US 1-09: > 50% on the R, < 50% on the L Unspecified Sleep Disturbance 01/31/2009 Overview: 4-23-09: effic 89%, AHI 3, low sat 86% (< 89% only 1.2 minutes), PLMI 7.5/hr Unspecified pleural effusion 12/25/2006 Shortness of breath 10/23/2006 10/09/2010 Anal fissure 06/19/2006 10/09/2010 documented as of this encounter (statuses as of 05/19/2023) [facility] [place] History of Past illness Narrative* Problem Noted Date Resolved Date Wound of left leg 06/12/2022 05/09/2023 Recurrent epistaxis 06/12/2022 05/09/2023 CKD (chronic kidney disease) stage 3, GFR 30-59 ml/min 09/20/2017 12/15/2018 COPD with exacerbation 08/07/2016 0 Skin mass 10/26/2010 05/13/2013 Overview: Lipoma, left forehead Benign localized hyperplasia of prostate with urinary obstruction and other lower urinary tract symptoms (LUTS)(600.21) 11/30/2009 10/09/2010 Elevated prostate specific antigen (PSA) 009 01/19/2018 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 01/31/2009 01/26/2019 Overview: Carotid US 1-09: > 50% on the R, < 50% on the L Unspecified Sleep Disturbance 01/31/2009 Overview: 03-09-09: effic 89%, AHI 3, low sat 86% (< 89% only 1.2 minutes), PLMI 7.5/hr Unspecified pleural effusion 12/25/2006 Shortness of breath 10/23/2006 10/09/2010 Anal fissure 06/19/2006 10/09/2010 documented as of this encounter (statuses as of 05/24/2023) [facility] [place] History of Past illness Narrative* Problem Noted Date Diagnosed Date Resolved Date Wound of left leg 06/12/2022 05/09/2023 Recurrent epistaxis 06/12/2022 05/09/20 23 CKD (chronic kidney disease) stage 3, GFR 30-59 ml/min 09/20/2017 12/15/2018 COPD with exacerbation 08/07/201606/01 Skin mass 10/26/2010 05/13/2013 Overview: Lipoma, left forehead Benign localized hyperplasia of prostate with urinary obstruction and other lower urinary tract symptoms (LUTS)(600.21) 11/30/2009 10/09/2010 Elevated prostate specific antigen (PSA) 02/01/2009 01/19/2018 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 01/31/2009 0 01/26/2019 Overview: Carotid US 1-09: > 50% on the R, < 50% on the L Unspecified Sleep Disturbance 01/31/2009 09/12/2015 Overview: 03-09-09: effic 89%, AHI 3, low sat 86% (< 89% only 1.2 minutes), PLMI 7.5/hr Unspecified pleural effusion 12/25/2006 10/09/2010 Shortness of breath 10/23/2006 10/09/20 10 Anal fissure 06/19/2006 10/09/2010 documented as of this encounter (statuses as of 06/18/2023) [facility] [place] History of Past illness Narrative* Problem Noted Date Diagnosed Date Resolved Date Wound of left leg 06/12/2022 05/09/2023 Recurrent epistaxis 06/12/2022 05/09/20 23 CKD (chronic kidney disease) stage 3, GFR 30-59 ml/min 09/20/2017 12/15/2018 COPD with exacerbation 08/07/201606/01 Skin mass 10/26/2010 05/13/2013 Overview: Lipoma, left forehead Benign localized hyperplasia of prostate with urinary obstruction and other lower urinary tract symptoms (LUTS)(600.21) 11/30/2009 10/09/2010 Elevated prostate specific antigen (PSA) 02/01/2009 01/19/2018 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 01/31/2009 0 01/26/2019 Overview: Carotid US 1-09: > 50% on the R, < 50% on the L Unspecified Sleep Disturbance 01/31/2009 09/12/2015 Overview: -23-09: effic 89%, AHI 3, low sat 86% (< 89% only 1.2 minutes), PLMI 7.5/hr Unspecified pleural effusion 12/25/2006 10/09/2010 Shortness of breath 10/23/2006 10/09/20 10 Anal fissure 06/19/2006 10/09/2010 documented as of this encounter (statuses as of 07/16/2023) [facility] [place] History of Past illness Narrative* Problem Noted Date Diagnosed Date Resolved Date Wound of left leg 06/12/2022 05/09/2023 Recurrent epistaxis 06/12/2022 05/09/20 23 CKD (chronic kidney disease) stage 3, GFR 30-59 ml/min 09/20/2017 12/15/2018 COPD with exacerbation 08/07/201606/01 Skin mass 10/26/2010 05/13/2013 Overview: Lipoma, left forehead Benign localized hyperplasia of prostate with urinary obstruction and other lower urinary tract symptoms (LUTS)(600.21) 11/30/2009 10/09/2010 Elevated prostate specific antigen (PSA) 02/01/2009 01/19/2018 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 01/31/2009 0 01/26/2019 Overview: Carotid US 1-09: > 50% on the R, < 50% on the L Unspecified Sleep Disturbance 01/31/2009 09/12/2015 Overview: 03-09-09: effic 89%, AHI 3, low sat 86% (< 89% only 1.2 minutes), PLMI 7.5/hr Unspecified pleural effusion 12/25/2006 10/09/2010 Shortness of breath 10/23/2006 10/09/20 10 Anal fissure 06/19/2006 10/09/2010 documented as of this encounter (statuses as of 10/14/2023) [facility] [place] History of Past illness Narrative* Problem Noted Date Diagnosed Date Resolved Date Wound of left leg 06/12/2022 05/09/2023 Recurrent epistaxis 06/12/2022 05/09/20 23 CKD (chronic kidney disease) stage 3, GFR 30-59 ml/min 09/20/2017 12/15/2018 COPD with exacerbation 08/07/201606/01 Skin mass 10/26/2010 05/13/2013 Overview: Lipoma, left forehead Benign localized hyperplasia of prostate with urinary obstruction and other lower urinary tract symptoms (LUTS)(600.21) 11/30/2009 10/09/2010 Elevated prostate specific antigen (PSA) 02/01/2009 01/19/2018 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 01/31/2009 0 01/26/2019 Overview: Carotid US 1-09: > 50% on the R, < 50% on the L Unspecified Sleep Disturbance 01/31/2009 09/12/2015 Overview: 03-09-09: effic 89%, AHI 3, low sat 86% (< 89% only 1.2 minutes), PLMI 7.5/hr Unspecified pleural effusion 12/25/2006 10/09/2010 Shortness of breath 10/23/2006 10/09/20 10 Anal fissure 06/19/2006 10/09/2010 documented as of this encounter (statuses as of 10/22/2023) [facility] [place] History of Past illness Narrative* Problem Noted Date Diagnosed Date Resolved Date Wound of left leg 06/12/2022 05/09/2023 Recurrent epistaxis 06/12/2022 05/09/20 23 CKD (chronic kidney disease) stage 3, GFR 30-59 ml/min 09/20/2017 12/15/2018 COPD with exacerbation 08/07/201606/01 Skin mass 10/26/2010 05/13/2013 Overview: Lipoma, left forehead Benign localized hyperplasia of prostate with urinary obstruction and other lower urinary tract symptoms (LUTS)(600.21) 11/30/2009 10/09/2010 Elevated prostate specific antigen (PSA) 02/01/2009 01/19/2018 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 01/31/2009 0 01/26/2019 Overview: Carotid US 1-09: > 50% on the R, < 50% on the L Unspecified Sleep Disturbance 01/31/2009 09/12/2015 Overview: 03-09-09: effic 89%, AHI 3, low sat 86% (< 89% only 1.2 minutes), PLMI 7.5/hr Unspecified pleural effusion 12/25/2006 10/09/2010 Shortness of breath 10/23/2006 10/09/20 10 Anal fissure 06/19/2006 10/09/2010 documented as of this encounter (statuses as of 10/23/2023) [facility] [place] of Past illness Narrative* Problem Noted Date Diagnosed Date Resolved Date Wound of left leg 06/12/2022 05/09/2023 Recurrent epistaxis 06/12/2022 05/09/20 23 CKD (chronic kidney disease) stage 3, GFR 30-59 ml/min 09/20/2017 12/15/2018 COPD with exacerbation 08/07/201606/01 Skin mass 10/26/2010 05/13/2013 Overview: Lipoma, left forehead Benign localized hyperplasia of prostate with urinary obstruction and other lower urinary tract symptoms (LUTS)(600.21) 11/30/2009 10/09/2010 Elevated prostate specific antigen (PSA) 02/01/2009 01/19/2018 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 01/31/2009 0 01/26/2019 Overview: Carotid US 1-09: > 50% on the R, < 50% on the L Unspecified Sleep Disturbance 01/31/2009 09/12/2015 Overview: 4-23-09: effic 89%, AHI 3, low sat 86% (< 89% only 1.2 minutes), PLMI 7.5/hr Unspecified pleural effusion 12/25/2006 10/09/2010 Shortness of breath 10/23/2006 10/09/20 10 Anal fissure 06/19/2006 10/09/2010 documented as of this encounter (statuses as of 11/07/2023) [facility] [place] History of Past illness Narrative* Problem Noted Date Diagnosed Date Resolved Date Wound of left leg 06/12/2022 05/09/2023 Recurrent epistaxis 06/12/2022 05/09/20 23 CKD (chronic kidney disease) stage 3, GFR 30-59 ml/min 09/20/2017 12/15/2018 COPD with exacerbation 08/07/201606/01 Skin mass 10/26/2010 05/13/2013 Overview: Lipoma, left forehead Benign localized hyperplasia of prostate with urinary obstruction and other lower urinary tract symptoms (LUTS)(600.21) 11/30/2009 10/09/2010 Elevated prostate specific antigen (PSA) 02/01/2009 01/19/2018 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 01/31/2009 0 01/26/2019 Overview: Carotid US 1-09: > 50% on the R, < 50% on the L Unspecified Sleep Disturbance 01/31/2009 09/12/2015 Overview: 03-09-09: effic 89%, AHI 3, low sat 86% (< 89% only 1.2 minutes), PLMI 7.5/hr Unspecified pleural effusion 12/25/2006 10/09/2010 Shortness of breath 10/23/2006 10/09/20 10 Anal fissure 06/19/2006 10/09/2010 documented as of this encounter (statuses as of 01/16/2024) [facility] [place] History of Past illness Narrative* Problem Noted Date Diagnosed Date Resolved Date Wound of left leg 06/12/2022 05/09/2023 Recurrent epistaxis 06/12/2022 05/09/20 23 CKD (chronic kidney disease) stage 3, GFR 30-59 ml/min 09/20/2017 12/15/2018 COPD with exacerbation 08/07/201606/01 Skin mass 10/26/2010 05/13/2013 Overview: Lipoma, left forehead Benign localized hyperplasia of prostate with urinary obstruction and other lower urinary tract symptoms (LUTS)(600.21) 11/30/2009 10/09/2010 Elevated prostate specific antigen (PSA) 02/01/2009 01/19/2018 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 01/31/2009 0 01/26/2019 Overview: Carotid US 1-09: > 50% on the R, < 50% on the L Unspecified Sleep Disturbance 01/31/2009 09/12/2015 Overview: 03-09-09: effic 89%, AHI 3, low sat 86% (< 89% only 1.2 minutes), PLMI 7.5/hr Unspecified pleural effusion 12/25/2006 10/09/2010 Shortness of breath 10/23/2006 10/09/20 10 Anal fissure 06/19/2006 10/09/2010 documented as of this encounter (statuses as of 01/22/2024) [facility] [place] History of Past illness Narrative* Problem Noted Date Diagnosed Date Resolved Date Wound of left leg 06/12/2022 05/09/2023 Recurrent epistaxis 06/12/2022 05/09/20 23 CKD (chronic kidney disease) stage 3, GFR 30-59 ml/min 09/20/2017 12/15/2018 COPD with exacerbation 08/07/201606/01 Skin mass 10/26/2010 05/13/2013 Overview: Lipoma, left forehead Benign localized hyperplasia of prostate with urinary obstruction and other lower urinary tract symptoms (LUTS)(600.21) 11/30/2009 10/09/2010 Elevated prostate specific antigen (PSA) 02/01/2009 01/19/2018 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 01/31/2009 0 01/26/2019 Overview: Carotid US 1-09: > 50% on the R, < 50% on the L Unspecified Sleep Disturbance 01/31/2009 09/12/2015 Overview: 4-23-09: effic 89%, AHI 3, low sat 86% (< 89% only 1.2 minutes), PLMI 7.5/hr Unspecified pleural effusion 12/25/2006 10/09/2010 Shortness of breath 10/23/2006 10/09/20 10 Anal fissure 06/19/2006 10/09/2010 documented as of this encounter (statuses as of 01/22/2024) [facility] [place] History of Past illness Narrative* Problem Noted Date Diagnosed Date Resolved Date Wound of left leg 06/12/2022 05/09/2023 Recurrent epistaxis 06/12/2022 05/09/20 23 CKD (chronic kidney disease) stage 3, GFR 30-59 ml/min 09/20/2017 12/15/2018 COPD with exacerbation 08/07/201606/01 Skin mass 10/26/2010 05/13/2013 Overview: Lipoma, left forehead Benign localized hyperplasia of prostate with urinary obstruction and other lower urinary tract symptoms (LUTS)(600.21) 11/30/2009 10/09/2010 Elevated prostate specific antigen (PSA) 02/01/2009 01/19/2018 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 01/31/2009 0 01/26/2019 Overview: Carotid US 1-09: > 50% on the R, < 50% on the L Unspecified Sleep Disturbance 01/31/2009 09/12/2015 Overview: 03-09-09: effic 89%, AHI 3, low sat 86% (< 89% only 1.2 minutes), PLMI 7.5/hr Unspecified pleural effusion 12/25/2006 10/09/2010 Shortness of breath 10/23/2006 10/09/20 10 Anal fissure 06/19/2006 10/09/2010 documented as of this encounter (statuses as of 02/05/2024) [facility] [place] Miscellaneous Notes* Telephone Encounter - Nithin Acevedo MD - 05/30/2022 4:47 PM EDT Patient's request for medication is as follows Signed Prescriptions Disp Refills insulin glargine (LANTUS SOLOSTAR U-100 INSULIN) 100 unit/mL (3 mL) 5 Pen 0 Sig: Inject 60 Units subcutaneously every morning. NICHOLE: No Authorizing Provider: NITHIN ACEVEDO MD * Telephone Encounter - Ciera Conner LPN - 05/30/2022 2:53 PM EDT called and reviewed with pts spouse. He does not have any lantus left. He would like a rx of lantus until the tresbia arrives. This would be less costly. Pharmacy verified. * Telephone Encounter - Nithin Acevedo MD - 05/30/2022 2:12 PM EDT Do not use Humalog in place of Tresiba. 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 * Telephone Encounter - Jaz Jung LPN - 05/30/2022 8:18 AM EDT Pt's Aliza notified of response. She reports pt used the last of his tresiba yesterday, none left. Reports his FBS this am was 122 Asking if he should use humalog in place of tresiba in the am? Please advise. Jaz Jung LPN * Telephone Encounter - Ciera Conner LPN - 05/29/2022 3:35 PM EDT 1.From 05/13/22 encounter the tresiba needed clarifications. Per pharmacy this was done and faxed back to the company. 2. Noted 3 yes sister can pick this up for pt. * Telephone Encounter - She Julian LPN - 05/29/2022 11:44 AM EDT checkin. Did Tresiba come in yet for pt. He is almost outPlease advise. 2. made aware other medication Novolog came in and they will get picked up. 3. asking if sister can pick pack worker medications. Please advise . She Julian LPN [facility] [place] Miscellaneous Notes* Telephone Encounter - Ciera Conner LPN - 05/30/2022 1:15 PM EDT Pt's sister in law picked this up. * Telephone Encounter - Ciera Conner LPN - 05/24/2022 1:13 PM EDT rec'd today 2 boxes of novofine 32 G tip Lot number [id number] Exp date 09/16/2026. * Telephone Encounter - Ciera Conner LPN - 05/24/2022 11:18 AM EDT Message left to pt's spouse this is available for pick pack worker. * Telephone Encounter - Ciera Conner LPN - 05/23/2022 11:12 AM EDT rec'd one box of novolog flex pen from [employer]. Lot number is [id number] ext date is 06/16/2024 documented in this [facility] [place] Miscellaneous Notes* Telephone Encounter - Daxa Morin LPN - 05/21/2022 8:56 AM EDT notified, verbalized understanding. Daxa Morin LPN * Telephone Encounter - Nithin Acevedo MD - 05/19/2022 2:48 PM EDT Instruct patient to contact Dr. Strickland, his commutator operator about Xarelto side effect. * Telephone Encounter - Bear Good RN - 05/17/2022 3:02 PM EDT [facility] discharge service for [employer]- reports she did a 1 time courtesy nursing visit with [employer]. Went over patient's meds with him and . Watched do dressing changes to wound on LLL. Patient reported he is not taking xarelto, hasn't taken for weeks because it causes nose bleeds. Patient refused xarelto in the hospital. reported she is going to call the commutator operator but hasn't gotten around to it yet. Asking pcp to call patient with any new instructions. documented in this [facility] [place] Hospital Discharge instructions Patient Education 05/15/2022 16:13:02 How to Change Your Wound Dressing, [id number] How to Change Your Wound Dressing A dressing is a material that is placed in and over a wound. A dressing helps your wound heal by protecting it from: Germs (bacteria). Another injury. Getting too dry or too wet. There are several types of wound dressings. Some examples are: Bandages. Gauze pads. Foam pads. Antimicrobial dressings. These prevent or treat infection and may contain something that kills germs (an antiseptic), such as silver or iodine. Calcium alginate. These are general guidelines. Follow your doctor's instructions about how to care for your wound. What are the risks? It is usually safe to change your dressing. The sticky (adhesive) tape that is used with a dressingmay make your skin sore or irritated, or it may cause a rash. These are the most common problems. However, more serious problems can happen, such as: Bleeding. Infection. Supplies needed: Set up a clean area for wound care. You will need: A trash bag that you can throw away. Have it open and ready to use. Hand film cutter. Cleaning solution as told by your doctor. This may include: ?Germ-free (sterile) water. ?Germ-free salt water (saline). ?Wound cleanser. ?New wound dressing material. Make sure to open the dressing package so the dressing stays on the inside of the package. You may also need the following in your clean area: A box of vinyl gloves. Tape. Adhesive remover. Skin protectant. This may be a wipe, film, or spray. Clean or germ-free scissors. A cotton-tipped applicator. How to change your dressing How often you change your dressing will depend on your wound. Change the dressing as often as told by your doctor. Your doctor may change your dressing, or a family member, friend, or caregiver may be shown how to do it. It is important to: Wash your hands before and after each dressing change. If you cannot use soap and water, use hand film cutter. Wear gloves and protective clothing while changing a dressing. This may include eye protection. Never let anyone change your dressing if he or she has an infection, a skin problem, or a skin wound or cut of any size. Preparing to change your dressing Take a shower before you do the first dressing change of the day. Before you shower, ask your doctor if you should put plastic leak-proof sealing wrap over your dressing to protect it. If needed, take pain medicine 30 minutes before you change your dressing as told by your doctor. Taking off your old dressing Wash your hands with soap and water. Dry your hands with a clean towel. If you cannot use soap and water, use hand film cutter. Go to the clean area that you have set up with all the supplies you will need. If you are using gloves, put the gloves on before you take off the dressing. Gently take off any adhesive or tape by pulling it off in the direction of your hair growth. Only touch the outside edges of the dressing. ?If you are told to use an adhesive remover to loosen the edges of the dressing, make sure to avoidthe wound area. Take off the dressing. If the dressing sticks to your skin, wet the dressing with the house cleaner supervisor that your doctor says to use. This helps it come off more easily. Take off any gauze or packing in your wound. Throw the old dressing supplies into the trash bag. Take off your gloves. To take off each glove, grab the cuff with your other hand and turn the gloveinside out. Put the gloves in the trash right away. Wash your hands with soap and water. Dry your hands with a clean towel. If you cannot use soap and water, use hand film cutter. Cleaning your wound Follow instructions from your doctor about how to clean your wound. This may include using the house cleaner supervisor that your doctor recommends. ?You may need to use germ-free water to clean your wound if you are putting on a dressing that has silver in it. Do not use egmu-wts-pgndufw medicated or antiseptic creams, sprays, liquids, or dressings unless your doctor tells you to do that. Use a clean gauze pad to clean the area fully with the house cleaner supervisor that your doctor recommends. Throw the gauze pad into the trash bag. Wash your hands with soap and water. Dry your hands with a clean towel. If you cannot use soap and water, use hand film cutter. Putting on the dressing If your doctor recommended a skin protectant, put it on the skin around the wound. Gently pack the wound if told by your doctor. Cover the wound with the recommended dressing. Make sure to touch only the outside edges of the dressing. Do not touch the inside of the dressing. Attach the dressing so all sides stay in place. You may do this with medical adhesive, roll gauze, or tape. If you use tape, do not wrap the tape all the way around your arm or leg. Take off your gloves. Put them in the trash bag with the old dressing. Tie the bag shut and throw it away. Wash your hands with soap and water. Dry your hands with a clean towel. If you cannot use soap and water, use hand film cutter. Follow these instructions at home: Wound care Check your wound every day for signs of infection, or as often as told by your doctor. Check for: ?More redness, swelling, or pain. ?More fluid or blood. ?Warmth. ?Pus or a bad smell. General instructions Take faqb-gyy-xpqjwsr and prescription medicines only as told by your doctor. Ask your doctor if the medicine prescribed to you: ?Requires you to avoid driving or using heavy machinery. ?Can cause trouble pooping (constipation). You may need to take steps to prevent or treat trouble pooping: ?Drink enough fluid to keep your pee (urine) pale yellow. ?Take darj-erb-dstyoav or prescription medicines. ?Eat foods that are high in fiber. These include beans, whole grains, and fresh fruits and vegetables. ?Limit foods that are high in fat and sugar. These include fried or sweet foods. Keep all follow-up visits as told by your doctor. This is important. Contact a doctor if: You have new pain. You have irritation, a rash, or itching around the wound or dressing. It hurts to change your dressing. Changing your dressing causes a lot of bleeding. Get help right away if: You have very bad pain. You have signs of infection, such as: ?More redness, swelling, or pain. ?More fluid or blood. ?Warmth. ?Pus or a bad smell. ?Red streaks leading from the wound. ?A fever. Summary A dressing is a material that is placed in and over a wound. A dressing helps your wound heal. Wash your hands before and after each dressing change. Follow your doctor's instructions about how to care for your wound. Check your wound for signs of infection. This information is not intended to replace advice given to you by your health care provider. Make sure you discuss any questions you have with your health care provider. Document Released: 01/30/2010 Document Revised: 07/01/2019 Document Reviewed: 07/01/2019 [email or web address] Patient Education 2020 [email or web address] 05/15/2022 16:06:29 Incision and Drainage, Care After Incision and Drainage, Care After This sheet gives you information about how to care for yourself after your procedure. Your health care provider may also give you more specific instructions. If you have problems or questions, contact your health care provider. What can I expect after the procedure? After the procedure, it is common to have: Pain or discomfort around the incision site. Blood, fluid, or pus (drainage) from the incision. Redness and firm skin around the incision site. Follow these instructions at home: Medicines Take qanv-qci-qlhsocl and prescription medicines only as told by your health care provider. If you were prescribed an antibiotic medicine, use or take it as told by your health care provider.Do not stop using the antibiotic even if you start to feel better. Wound care Follow instructions from your health care provider about how to take care of your wound. Make sure you: Wash your hands with soap and water before and after you change your bandage (dressing). If soap and water are not available, use hand film cutter. Change your dressing and packing as told by your health care provider. ?If your dressing is dry or stuck when you try to remove it, moisten or wet the dressing with saline or water so that it can be removed without harming your skin or tissues. ?If your wound is packed, leave it in place until your health care provider tells you to remove it.To remove the packing, moisten or wet the packing with saline or water so that it can be removed without harming your skin or tissues. Leave stitches (sutures), skin glue, or adhesive strips in place. These skin closures may need to stay in place for 2 weeks or longer. If adhesive strip edges start to loosen and curl up, you may trim the loose edges. Do not remove adhesive strips completely unless your health care provider tells you to do that. Check your wound every day for signs of infection. Check for: More redness, swelling, or pain. More fluid or blood. Warmth. Pus or a bad smell. If you were sent home with a drain tube in place, follow instructions from your health care provider about: How to empty it. How to care for it at home. General instructions Rest the affected area. Do not take baths, swim, or use a hot tub until your health care provider approves. Ask your healthcare provider if you may take showers. You may only be allowed to take sponge baths. Return to your normal activities as told by your health care provider. Ask your health care provider what activities are safe for you. Your health care provider may put you on activity or lifting restrictions. The incision will continue to drain. It is normal to have some clear or slightly bloody drainage. The amount of drainage should lessen each day. Do not apply any creams, ointments, or liquids unless you have been told to by your health care provider. Keep all follow-up visits as told by your health care provider. This is important. Contact a health care provider if: Your cyst or abscess returns. You have a fever or chills. You have more redness, swelling, or pain around your incision. You have more fluid or blood coming from your incision. Your incision feels warm to the touch. You have pus or a bad smell coming from your incision. You have red streaks above or below the incision site. Get help right away if: You have severe pain or bleeding. You cannot eat or drink without vomiting. You have decreased urine output. You become short of breath. You have chest pain. You cough up blood. The affected area becomes numb or starts to tingle. These symptoms may represent a serious problem that is an emergency. Do not wait to see if the symptoms will go away. Get medical help right away. Call your local emergency services (911 in the [place] Do not drive yourself to the hospital. Summary After this procedure, it is common to have fluid, blood, or pus coming from the surgery site. Follow all home care instructions. You will be told how to take care of your incision, how to checkfor infection, and how to take medicines. If you were prescribed an antibiotic medicine, take it as told by your health care provider. Do notstop taking the antibiotic even if you start to feel better. Contact a health care provider if you have increased redness, swelling, or pain around your incision. Get help right away if you have chest pain, you vomit, you cough up blood, or you have shortness of breath. Keep all follow-up visits as told by your health care provider. This is important. This information is not intended to replace advice given to you by your health care provider. Make sure you discuss any questions you have with your health care provider. Document Released: 01/25/2013 Document Revised: 10/04/2019 Document Reviewed: 10/04/2019 [email or web address] Patient Education 2020 [email or web address] Follow Up Care 05/10/2022 09:32:45 With:NITHIN ACEVEDO MD Address: [address] [place] [address]- When:1-2 days Comments:Please call the office to schedule a follow up appointment With:LAURENT MYERS MD, [facility] Address: [address] [place] [address] [address] [place] [phone] When:05/30/2022 Comments:Please call the office for an appointment. With:Case Management will call you at home after discharge. If you have any non- emergent questions or needs please feel free to call [phone] M-F 8am-4:30pm Address: When:1-2 days [facility] 06-29-2022 Note Discharge Instructions Thank you for allowing [facility] to assist you with your healthcare needs. The following is importantdischarge information regarding your hospital visit. Your Care Team NITHIN ACEVEDO MD What to do next Scheduled Follow-Up Appointments Appointment Type When Where Contact InformationCV OV 07/16/2022 01:15 PM EDT [facility] [place] Follow Up Appointments Follow Up with LAURENT MYERS MD, [facility] When In 15 days 05/30/2022 EDT Why: Please call the office for an appointment. Where: [address] [place] [phone] Follow Up with NITHIN ACEVEDO MD When Within 1-2 days Why: Please call the office to schedule a follow up appointment Where: [address] [place], [place] [id number]- Follow Up with Case Management will call you at home after discharge. If you have any non-emergent questions or needs please feel free to call [phone] M-F 8am-4:30pm When Within 1-2 days Where: The Following Activity and Diet Have Been Ordered for You No qualifying data available. Discharge Diet - Ordered -- Type of Diet: Regular Diet, Follow the diet changes as instructed by the dietitian, 05/15/22 15:53:00 EDT The Following Equipment Has Been Ordered for You Discharge Home Equipment Discharge Wound Care - Ordered -- Dressing Type: pack w/ saline gauze, Leg, lower left, Change Dressing: qDay, Change dressing twice a day. Cover with absorbant pad and wrap leg with brian bandage from the toes above the knee, 05/15/22 15:53:00 EDT Discharge Wound Vac Care - Ordered -- Left Leg, Continuous suction, 125 cmH20, Black sponge, Change Sun/Tue/Thurs, 05/14/22 13:23:00 EDT The Following Treatments Have Been Ordered for You Discharge Labs No qualifying data available. Discharge Radiology No qualifying data available. Other Therapies No qualifying data available. Post Acute Orders No qualifying data available. Someone Will Contact You Regarding These Home Health Referrals No home referrals have been ordered for you. No one will call you. Allergies Proscar fexofenadine (Unknown) finasteride (Unknown) Medications Please ask your primary doctor or pharmacist before taking any other medication not listed, including over the counter drugs, herbal medications, vitamins and or supplements as they may interact withyour home medications. What How Much When Instructions Last Dose Unchanged aspirin (aspirin 81 mg oral delayed release tablet) 1 tab(s) by mouth Once a day Unchanged atorvastatin (atorvastatin 40 mg oral tablet) 1 tab(s) by mouth Once a day Unchanged doxazosin (doxazosin 2 mg oral tablet) 1 tab(s) by mouth Daily at bedtime Unchanged furosemide (Lasix 40 mg oral tablet) 1 tab(s) by mouth Once a day Unchanged insulin degludec (Tresiba 100 units/ mL subcutaneous solution) 60 unit(s) Subcutaneous Once a day Unchanged insulin lispro (HumaLOG) (HumaLOG KwikPen 100 units/ mL injectable PEN) 6 unit(s) Subcutaneous Daily before supper Unchanged losartan (losartan 25 mg oral tablet) 1 tab(s) by mouth Once a day Unchanged multivitamin (Multiple Vitamins oral tablet) 1 tab(s) by mouth Once a day Unchanged nitroGLYcerin (Nitrostat 0.4 mg sublingual tablet) 1 tab(s) under the tongue Every 5 minutes as needed for for chest pain Unchanged rivaroxaban (Xarelto 15 mg oral tablet) 1 tab(s) by mouth Daily at bedtime Unchanged semaglutide (Ozempic (1 mg dose) 4 mg/ 3 mL subcutaneous solution) 1 Milligram Subcutaneous Every week Unchanged spironolactone (Aldactone 25 mg oral tablet) 1 tab(s) by mouth Every other day What How Much When Comments Stop Taking silver sulfADIAZINE topical (silver sulfADIAZINE 1% topicalcream) 1 application Topical Two (2) times a day Please take this list to your next doctor s visit. Bring all medications you take, including over the counter medications, herbals and other supplements with you to your doctor s visit. Patients and families are reminded to discard old lists and to update any records with all medication providers or retail pharmacies. Education Materials How to Change Your Wound Dressing A dressing is a material that is placed in and over a wound. A dressing helps your wound heal by protecting it from: Germs (bacteria). Another injury. Getting too dry or too wet. There are several types of wound dressings. Some examples are: Bandages. Gauze pads. Foam pads. Antimicrobial dressings. These prevent or treat infection and may contain something that kills germs (an antiseptic), such as silver or iodine. Calcium alginate. These are general guidelines. Follow your doctor's instructions about how to care for your wound. What are the risks? It is usually safe to change your dressing. The sticky (adhesive) tape that is used with a dressingmay make your skin sore or irritated, or it may cause a rash. These are the most common problems. However, more serious problems can happen, such as: Bleeding. Infection. Supplies needed: Set up a clean area for wound care. You will need: A trash bag that you can throw away. Have it open and ready to use. Hand film cutter. Cleaning solution as told by your doctor. This may include: ? Germ-free (sterile) water. ? Germ-free salt water (saline). ? Wound cleanser. ? New wound dressing material. Make sure to open the dressing package so the dressing stays on the inside of the package. You may also need the following in your clean area: A box of vinyl gloves. Tape. Adhesive remover. Skin protectant. This may be a wipe, film, or spray. Clean or germ-free scissors. A cotton-tipped applicator. How to change your dressing How often you change your dressing will depend on your wound. Change the dressing as often as told by your doctor. Your doctor may change your dressing, or a family member, friend, or caregiver may be shown how to do it. It is important to: Wash your hands before and after each dressing change. If you cannot use soap and water, use hand film cutter. Wear gloves and protective clothing while changing a dressing. This may include eye protection. Never let anyone change your dressing if he or she has an infection, a skin problem, or a skin wound or cut of any size. Preparing to change your dressing Take a shower before you do the first dressing change of the day. Before you shower, ask your doctor if you should put plastic leak-proof sealing wrap over your dressing to protect it. If needed, take pain medicine 30 minutes before you change your dressing as told by your doctor. Taking off your old dressing Wash your hands with soap and water. Dry your hands with a clean towel. If you cannot use soap and water, use hand film cutter. Go to the clean area that you have set up with all the supplies you will need. If you are using gloves, put the gloves on before you take off the dressing. Gently take off any adhesive or tape by pulling it off in the direction of your hair growth. Only touch the outside edges of the dressing. ? If you are told to use an adhesive remover to loosen the edges of the dressing, make sure to avoid the wound area. Take off the dressing. If the dressing sticks to your skin, wet the dressing with the house cleaner supervisor that your doctor says to use. This helps it come off more easily. Take off any gauze or packing in your wound. Throw the old dressing supplies into the trash bag. Take off your gloves. To take off each glove, grab the cuff with your other hand and turn the gloveinside out. Put the gloves in the trash right away. Wash your hands with soap and water. Dry your hands with a clean towel. If you cannot use soap and water, use hand film cutter. Cleaning your wound Follow instructions from your doctor about how to clean your wound. This may include using the house cleaner supervisor that your doctor recommends. ? You may need to use germ-free water to clean your wound if you are putting on a dressing that has silver in it. Do not use uhag-wnv-xzowugz medicated or antiseptic creams, sprays, liquids, or dressings unless your doctor tells you to do that. Use a clean gauze pad to clean the area fully with the house cleaner supervisor that your doctor recommends. Throw the gauze pad into the trash bag. Wash your hands with soap and water. Dry your hands with a clean towel. If you cannot use soap and water, use hand film cutter. Putting on the dressing If your doctor recommended a skin protectant, put it on the skin around the wound. Gently pack the wound if told by your doctor. Cover the wound with the recommended dressing. Make sure to touch only the outside edges of the dressing. Do not touch the inside of the dressing. Attach the dressing so all sides stay in place. You may do this with medical adhesive, roll gauze, or tape. If you use tape, do not wrap the tape all the way around your arm or leg. Take off your gloves. Put them in the trash bag with the old dressing. Tie the bag shut and throw it away. Wash your hands with soap and water. Dry your hands with a clean towel. If you cannot use soap and water, use hand film cutter. Follow these instructions at home: Wound care Check your wound every day for signs of infection, or as often as told by your doctor. Check for: ? More redness, swelling, or pain. ? More fluid or blood. ? Warmth. ? Pus or a bad smell. General instructions Take sqyv-mqb-vhnwkqp and prescription medicines only as told by your doctor. Ask your doctor if the medicine prescribed to you: ? Requires you to avoid driving or using heavy machinery. ? Can cause trouble pooping (constipation). You may need to take steps to prevent or treat trouble pooping: ? Drink enough fluid to keep your pee (urine) pale yellow. ? Take wxyg-xfn-wuffzrd or prescription medicines. ? Eat foods that are high in fiber. These include beans, whole grains, and fresh fruits and vegetables. ? Limit foods that are high in fat and sugar. These include fried or sweet foods. Keep all follow-up visits as told by your doctor. This is important. Contact a doctor if: You have new pain. You have irritation, a rash, or itching around the wound or dressing. It hurts to change your dressing. Changing your dressing causes a lot of bleeding. Get help right away if: You have very bad pain. You have signs of infection, such as: ? More redness, swelling, or pain. ? More fluid or blood. ? Warmth. ? Pus or a bad smell. ? Red streaks leading from the wound. ? A fever. Summary A dressing is a material that is placed in and over a wound. A dressing helps your wound heal. Wash your hands before and after each dressing change. Follow your doctor's instructions about how to care for your wound. Check your wound for signs of infection. This information is not intended to replace advice given to you by your health care provider. Make sure you discuss any questions you have with your health care provider. Document Released: 01/30/2010 Document Revised: 07/01/2019 Document Reviewed: 07/01/2019 [email or web address] Patient Education 2020 [employer] Incision and Drainage, Care After This sheet gives you information about how to care for yourself after your procedure. Your health care provider may also give you more specific instructions. If you have problems or questions, contact your health care provider. What can I expect after the procedure? After the procedure, it is common to have: Pain or discomfort around the incision site. Blood, fluid, or pus (drainage) from the incision. Redness and firm skin around the incision site. Follow these instructions at home: Medicines Take qzwl-rlg-azsdikn and prescription medicines only as told by your health care provider. If you were prescribed an antibiotic medicine, use or take it as told by your health care provider.Do not stop using the antibiotic even if you start to feel better. Wound care Follow instructions from your health care provider about how to take care of your wound. Make sure you: Wash your hands with soap and water before and after you change your bandage (dressing). If soap and water are not available, use hand film cutter. Change your dressing and packing as told by your health care provider. ? If your dressing is dry or stuck when you try to remove it, moisten or wet the dressing with salineor water so that it can be removed without harming your skin or tissues. ? If your wound is packed, leave it in place until your health care provider tells you to remove it. To remove the packing, moisten or wet the packing with saline or water so that it can be removed without harming your skin or tissues. Leave stitches (sutures), skin glue, or adhesive strips in place. These skin closures may need to stay in place for 2 weeks or longer. If adhesive strip edges start to loosen and curl up, you may trim the loose edges. Do not remove adhesive strips completely unless your health care provider tells you to do that. Check your wound every day for signs of infection. Check for: More redness, swelling, or pain. More fluid or blood. Warmth. Pus or a bad smell. If you were sent home with a drain tube in place, follow instructions from your health care provider about: How to empty it. How to care for it at home. General instructions Rest the affected area. Do not take baths, swim, or use a hot tub until your health care provider approves. Ask your healthcare provider if you may take showers. You may only be allowed to take sponge baths. Return to your normal activities as told by your health care provider. Ask your health care provider what activities are safe for you. Your health care provider may put you on activity or lifting restrictions. The incision will continue to drain. It is normal to have some clear or slightly bloody drainage. The amount of drainage should lessen each day. Do not apply any creams, ointments, or liquids unless you have been told to by your health care provider. Keep all follow-up visits as told by your health care provider. This is important. Contact a health care provider if: Your cyst or abscess returns. You have a fever or chills. You have more redness, swelling, or pain around your incision. You have more fluid or blood coming from your incision. Your incision feels warm to the touch. You have pus or a bad smell coming from your incision. You have red streaks above or below the incision site. Get help right away if: You have severe pain or bleeding. You cannot eat or drink without vomiting. You have decreased urine output. You become short of breath. You have chest pain. You cough up blood. The affected area becomes numb or starts to tingle. These symptoms may represent a serious problem that is an emergency. Do not wait to see if the symptoms will go away. Get medical help right away. Call your local emergency services (911 in the [place] Do not drive yourself to the hospital. Summary After this procedure, it is common to have fluid, blood, or pus coming from the surgery site. Follow all home care instructions. You will be told how to take care of your incision, how to checkfor infection, and how to take medicines. If you were prescribed an antibiotic medicine, take it as told by your health care provider. Do notstop taking the antibiotic even if you start to feel better. Contact a health care provider if you have increased redness, swelling, or pain around your incision. Get help right away if you have chest pain, you vomit, you cough up blood, or you have shortness of breath. Keep all follow-up visits as told by your health care provider. This is important. This information is not intended to replace advice given to you by your health care provider. Make sure you discuss any questions you have with your health care provider. Document Released: 01/25/2013 Document Revised: 10/04/2019 Document Reviewed: 10/04/2019 Elsevier Patient Education 2020 [employer] Additional Information VACCINATE! IT SAVES LIVES! Members of the community who have not yet received the COVID-19 vaccine and would like to receive it can visit one of [facility] vaccine clinics. There are many vaccine clinic locations within the [facility]. For locations and available times, please visit [email or web address] It is important to note that some COVID mobile vaccine clinics are held outdoors and may be canceled in rainy or stormy conditions. To learn more about pediatric vaccinations (ages 5-11), we invite you to visit the [facility] webpage. [email or web address] learn more about the COVID-19 vaccine, we invite you to visit the [facility] website for a list of frequently asked questions. [email or web address] [place] [facility] Patient Portal Access Instructions: Stay connected with your healthcare team and access your personal medical information anytime with the [facility] Patient Portal.If you would like a full copy of your medical records, please contact the [facility] Medical Records Department, Friday through Friday between 8a.m. and 4:30p.m. Please follow the directions below to access the portal: 1.Access the email account you provided [facility].2.Look for an invitation email from [facility].3.Open the email and access the invitation link: Accept Invitation to [facility]4.Fill in the required long to create your account. Sign into [email or web address] with your username and password that you created in the above steps to stay up to date. You can then view a summary of results, a summary of your visits, and the ability to download your summaries to your computer or send the information securely to a physician. Remember that your healthcare information is confidential, so carefully consider who you will allow to register on the [facility] Patient Portal for access to your information. You can also access the [facility] Patient Portal on the [employer] adam. Simply click on Health Records under [employer] and then click on the [employer] logo. HOW TO SAFELY DISPOSE OF PRESCRIPTION MEDICATIONS Please use one of the following methods to safely dispose of your unused medications. 1.Use a drug disposal kit: the drug disposal pouch allows you to safely discard your old and unuseddrugs. Ask your nurse to give you one when you are discharged.2.Visit a local take-back location: Many local pharmacies and police departments have programs that collect old and unwanted prescriptiondrugs. Call your local pharmacy or go to [email or web address] to find one close to you.3.Make use of household items: Use cat litter or old coffee grounds to dispose medications if other options arenot available. Mix your drugs with these household products, seal them in an airtight container andthrow it into the garbage. Call [facility]: [phone] to be sure your drugs can be disposed of in this way. Some medicines may require a different approach.4.Never flush your medications down the toilet. IF YOU HAVE BEEN PRESCRIBED AN OPIOID FOR PAIN If you have been prescribed an opioid (such as hydrocodone, oxycodone or morphine), it is critical to understand the possible side effects and risks of opioid pain medications. Even when taken as directed, opioids can have several side effects including: Tolerance, meaning you might need to take more of a medication for the same pain relief. Nausea, vomiting and/or constipation. Sleepiness, dizziness, dry mouth, confusion, depression or itching. Physical dependence, meaning you have withdrawal symptoms when a medication is stopped, can develop within a few days. KNOW YOUR RESPONSIBILITIES It is important to know exactly how much and how often to take the opioid pain medications you are prescribed. Never take opioids in higher amounts or more often than prescribed. Do not combine opioids with alcohol or other drugs that cause drowsiness, such as benzodiazepines, also known as benzos, including diazepam and alprazolam, muscle relaxants or sleep aids. Never sell or share prescription opioids. This is illegal. Store opioids in a secure place and out of reach of others (including children, family, friends and visitors). The last page of this document has been signed and retained as a CHART COPY. Signatures Patient Education Materials How to Change Your Wound Dressing, Zvwa-aw-Racp Incision and Drainage, Care After Medication Leaflets My discharge plan and instructions have been reviewed and explained to me and I,FEDERICO HU understand my current condition and have read and understand these discharge instructions. I have received a written copy of the plan/instructions. If I have questions, I am aware that I should contact my doctor. Patient/[employer]rey [employer] Marker Signature: Date/Time: Relationship to Patient: Witness Name/Signature: Date[facility]Time: [id number] Anesthesiology Consult note Patient: FEDERICO HU Age: 86 years Sex: Male : 1935 Associated Diagnoses: None Author: EZIO POLANCO DO Postoperative Information Post Operative Info: Post op day: Post Anesthesia Care Unit. Patient location: PACU. Assessment Postanesthesia assessment Vitals. Mental status: at preoperative baseline. Respiratory function: respirations are non-labored. Respiratory support: oxygen delivery method via nasal cannula. CV function: stable. Cardiovascular support: none. Pain: satisfactory. Nausea status: satisfactory. Postoperative hydration status: within normal limits. Notes: Patient sufficiently recovered from anesthesia to participate in the evaluation. No follow-up needed. No post-anesthesia complications.. Digitally Signed by EZIO POLANCO DO on 05/14/2022 09:46 AM [id number] Anesthesiology Consult note Patient: FEDERICO HU Age: 86 years Sex: Male : 1935 Associated Diagnoses: None Author: KANE MENDOZA MD Preoperative Information Time of last food or liquid consumption: 05/14/2022 00:00:00 Anesthesia history Patient's history: negative. Family's history: negative. Health Status Allergies: Allergic Reactions (Selected) Severity Not Documented Fexofenadine- Unknown. Finasteride- Unknown. Proscar- No reactions were documented., Allergies (3) ActiveReaction fexofenadineUnknown finasterideUnknown ProscarNone Documented Current medications: (Selected) Inpatient Medications Ordered Kefzol: 2 gram(s), 20 mL, 240 mL/hr, IV Push (INT), PREOP pharm NS 1,000 mL: 20 mL/hr, Intravenous, Stop: 05/14/22 16:59:00 EDT Prescriptions Prescribed Aldactone 25 mg oral tablet: 25 mg, 1 tab(s), Oral, Every other day, 45 tab(s), 3 Refill(s) Lasix 40 mg oral tablet: 40 mg, 1 tab(s), Oral, qDay, 90 tab(s), 3 Refill(s) Xarelto 15 mg oral tablet: 15 mg, 1 tab(s), Oral, qHS, 90 tab(s), 3 Refill(s) atorvastatin 40 mg oral tablet: 40 mg, 1 tab(s), Oral, qDay, 90 tab(s), 3 Refill(s) Documented Medications Documented HumaLOG KwikPen 100 units/mL injectable PEN: 6 unit(s), Subcutaneous, acSupper Multiple Vitamins oral tablet: 1 tab(s), Oral, qDay Nitrostat 0.4 mg sublingual tablet: 0.4 mg, 1 tab(s), Sublingual, q5min, PRN: for chest pain, 0 Refill(s) Ozempic (1 mg dose) 4 mg/3 mL subcutaneous solution: 1 mg, Subcutaneous, qWeek Tresiba 100 units/mL subcutaneous solution: 60 unit(s), Subcutaneous, qDay, 0 Refill(s) aspirin 81 mg oral delayed release tablet: mg, tab(s), Oral, qDay, 0 Refill(s) doxazosin 2 mg oral tablet: 2 mg, 1 tab(s), PO, qHS, 0 Refill(s) losartan 25 mg oral tablet: 25 mg, 1 tab(s), Oral, qDay, 0 Refill(s) silver sulfADIAZINE 1% topical cream: 1 adam, Topical, BID, 0 Refill(s), Medications (2) Active Scheduled: (1) ceFAZolin syringe 2 gram(s) 20 mL, IV Push (INT), PREOP pharm Continuous: (1) NS (0.9% nacl) 1,000 mL 1,000 mL, Intravenous, 20 mL/hr PRN: (0) Problem list: Medical Acute on chronic heart failure with preserved ejection fraction (HFpEF) / SNOMED CT 7068309846 / Confirmed Arthritis / SNOMED CT 1547604 / Confirmed Prostate hypertrophy / SNOMED CT 846493876 / Confirmed CABG / Confirmed ABNORMAL NUCLEAR STRESS TEST / SNOMED CT 1621780237 / Confirmed ASHD (arteriosclerotic heart disease) / SNOMED CT 46110052 / Confirmed CAD IN [place] / SNOMED CT 1770494155 / Confirmed Diabetes mellitus / SNOMED CT 188953839 / Confirmed Diastolic CHF / SNOMED CT 8132645882 / Confirmed Hyperlipidemia / SNOMED CT 70329285 / Confirmed Hypertension / SNOMED CT 9548367539 / Confirmed MORBID OBESITY / SNOMED CT 338722486 / Confirmed HELDER ON CPAP / SNOMED CT 828870967 / Confirmed ATRIAL FLUTTER, PAROXYSMAL / SNOMED CT 5819371223 / Confirmed Right bundle branch block / SNOMED CT 58565792 / Confirmed, Active Problems (24) ABNORMAL NUCLEAR STRESS TEST Acute on chronic heart failure with preserved ejection fraction (HFpEF) Arthritis ASHD (arteriosclerotic heart disease) Atrial fibrillation ATRIAL FLUTTER, PAROXYSMAL Avulsion of skin of lower leg CABG CAD IN [place] Carotid artery stenosis CKD (chronic kidney disease) stage 4, GFR 15-29 ml/min CPAP - Continuous positive airways pressure Diabetes mellitus Diastolic CHF Former very heavy cigarette smoker (more than 40 per day) Glasses Hyperlipidemia Hypertension MORBID OBESITY On anticoagulant therapy HELDER ON CPAP Primary osteoarthritis of left hip Prostate hypertrophy Right bundle branch block Histories Past Medical History: Active Diabetes mellitus (934434427) Hypertension (1990959041) Prostate hypertrophy (503916138) Arthritis (8032560) Right bundle branch block (29084913) Diastolic CHF (6941699292) ASHD (arteriosclerotic heart disease) (16195616) Resolved pulmonary embolus: Onset on 12/01/2006 at 71 years. Resolved. Cataract (875673168): Resolved. Family History: Cancer Father Diabetes mellitus Mother Father Breast cancer Mother Hypertension Mother Heart disease Father Heart attack Father Hyperlipidemia Mother Procedure history: Cardioversion (580963810) on 03/06/2022 at 86 Years. Echocardiogram (4475628250) on 02/19/2022 at 86 Years. Total knee replacement (7375391920) in 2018 at 83 Years. Comments: 05/13/2022 7:51 CEFERNIO Flores right Cardiac catheterization (30984484) on 02/26/2018 at 82 Years. Cataract surgery (522270548) in 2014 at 80 Years. Biopsy of prostate (981683438) in 2009 at 75 Years. Total knee replacement (9684023699) in 2007 at 73 Years. Comments: 05/13/2022 7:51 CEFERINO Flores left CABG - Coronary artery bypass graft (617433801) on 09/18/2007 at 71 Years. Repair of inguinal hernia (80613742) in 1991 at 57 Years. Comments: 05/13/2022 7:52 CEFERINO Flores left Anal fissurectomy (0831482324) in 1978 at 44 Years. Hemorrhoidectomy (95577799). Bilateral inguinal hernia repair (103633512). Tonsillectomy (171918948). Social History Social & Psychosocial Habits Alcohol 02/26/2018Risk Assessment: Denies Alcohol Use 04/12/2020 Use: Never Substance Abuse 02/26/2018Risk Assessment: Denies Substance Abuse 04/12/2020 Use: Never Tobacco 05/13/2022 Tobacco Use: Former smoker, quit more, quit 1975 Type: Cigarettes Tobacco use per day: 60 Number of years: 20 Total pack years: 60 Stopped at age: 40 Years Smokeless tobacco use: Never Home/Environment 05/13/2022 Domestic Concerns None Living situation: Home with assistance Current Home Treatments CPAP Marital Status of Patient if Patient Independent Adult: Nutrition/Health 07/04/2020 Caffeine intake amount: 1 per day . Physical Examination Vital Signs 05/13/2022 8:51 EDT Systolic BP Right Arm 133 mmHg Diastolic BP Right Arm 68 mmHg 05/13/2022 8:16 EDT Temperature Oral 36.5 DegC Peripheral Pulse Rate 78 bpm Systolic BP Right Arm 164 mmHg >HHI Diastolic BP Right Arm 85 mmHg No qualifying data available Measurements from flowsheet : Measurements 05/13/2022 8:16 EDT Height 182.9 cm Admission Weight 162.6 kg Weight Method Actual [place] Body Weight 77.62 kg General: Alert and oriented, No acute distress. Airway: Mallampati classification: III (soft palate, base of uvula visible). Dentition Evaluation: Dentures, lower, Dentures, upper. Respiratory: Lungs are clear to auscultation, Respirations are non-labored. Cardiovascular: Normal rate, Patient has an extensive cardiac history, including a CABG, followed by stents some years later. He also has a history of heart failure and afib/flutter. Patient denies current chest pain, shortness of breath, light-headedness, palpitations and other symptoms suggestive for ongoing ischemia.. Heart Sounds: Normal. Review / Management Results review: Labs (Last four charted values) Plt 178(MAY 14) PT 13.9(MAY 14) INR 1.2(MAY 14) PTT 29.5(MAY 14) , Lab results 05/14/2022 5:53 EDT Platelet 178 10^3/mcL Heparin dose (APTT) Unknown APTT 29.5 seconds Protime 13.9 seconds PT International Ratio 1.2 ratio NA Fibrinogen 631 mg/dL HI 05/13/2022 14:55 EDT Surgery Scheduled On Date/Time 05/14/2022 7:30 Patient Aware Date/Time Of Surgery Yes (Modified) Arrival Time the Day of Surgery 05/14/2022 5:30 Patient Aware of Arrival Time Yes Pre-Op Patient Education NPO after midnight, No smoking after midnight, No makeup, No jewelry, Responsible Alliance Party, Aware of surgery location, 2 bottles CHG wash with instructions given, No ordered medications (Modified) SN - Preprocedure Comments Verbalizes/Nonverbally indicates understanding, Other: Spoke with Aliza Oliver Note-Nursing Same Day Patient History (Modified) 05/13/2022 8:51 EDT Systolic BP Right Arm 133 mmHg Diastolic BP Right Arm 68 mmHg 05/13/2022 8:29 EDT PreAnesthesia Note Pretest Summary Note 05/13/2022 8:16 EDT Designated Person #1 We May Share JUDITH Aliza Hu ([phone]) Designated Person #1 Relationship Spouse Designated Person #2 We May Share JUDITH Harman Hu ([phone]) Privacy Restrictions Requested None Height 182.9 cm Admission Weight 162.6 kg Weight Method Actual [place] Body Weight 77.62 kg Temperature Oral 36.5 DegC Peripheral Pulse Rate 78 bpm Systolic BP Right Arm 164 mmHg >HHI Diastolic BP Right Arm 85 mmHg Oxygen Saturation 95 % Status N/A Sensory Deficits Hearing deficit, left ear, Hearing deficit, right ear Sleep Apnea Snore Yes Sleep Apnea Tired Yes Sleep Apnea Obstruction No Sleep Apnea Pressure Yes Sleep Apnea BMI Yes Sleep Apnea Age Yes Sleep Apnea Neck Yes Sleep Apnea Gender Yes Sleep Apnea Score 7 >HHI High Risk for Sleep Apnea Yes Diagnosed With Sleep Apnea Yes, Patient instructed to bring cpap machine to hospital Advanced Directives Yes Advance Directive Type [place] Durable Power of [employer] Professor for Health Care, [place] Declaration (Living Will) Advance Directive Location Patient instructed to bring in copy Infectious Disease Symptoms Patient states no symptoms Infectious Disease Recent Exposure No Alcohol and Drug Use No Employee of Institutional Living No Health Care Employee No History of Exposure to TB Yes History of Positive Chest X-Ray for TB No History of Positive TB Skin Test Yes Homeless No Known Immunosuppression No Recent Immigrant No Resident of Institutional Living No Bloody Sputum No Fatigue No Fever No Loss of Appetite No Night Sweats No Persistent Cough > 3 Weeks No Weight Loss No Patient Aware Date/Time Of Surgery Date\Time Correction Previous Surgery At This Facility Yes Pre-Op Patient Education Date\Time Correction Barriers to Learning None evident Teaching Method Explanation, Printed materials Preferred Written Language Irish Preferred Spoken Language Irish Information Given by Patient Patient's Current Physicians Patient's Current Physicians Discharge To, Anticipated Home with family care Prev Test Positive/Diagnosis w/COVID-19 No Current Quarantine/Isolated any Illness No Any Contact with Sick Animals/Birds No Traveled Anywhere in Last 30 Days No Lost Weight Unintentionally Recently No Eat Poorly Due to Decreased Appetite No Total MST Score 0 N/A Personal Devices, Patient Valuables Dentures, lower, Dentures, upper, Glasses, Hearing aid, left, Hearing aid, right Anesthesia/Transfusions Prior anesthesia Admission Note-Nursing Date\Time Correction . Assessment and Plan [place] [employer] Anesthesiologists (ASA) physical status classification: Class IV, CAD; HF; afib; PVD; CKD 4; DM; morbid obesity; HELDER. Anesthetic Preoperative Plan Anesthetic technique: General. Maintenance airway: Laryngeal mask airway. Risks discussed: nausea, vomiting, headache, sore throat, dental injury, hypotension, allergic reaction, serious complications. Informed consent: signed by patient. Notes: Patient seen and examined by me, the medical record was reviewed, lab results and cardiovascular studies examined and noted. Anesthesia was explained in detail and questions were invited and answered. We will proceed as outlined in the plan above.. Digitally Signed by KANE MENDOZA MD on 05/14/2022 06:34 AM Digitally Signed by KANE MENDOZA MD on 05/14/2022 07:56 AM [id number] History of Present illness Narrative* [facility], [facility] - 05/07/2022 2:30 PM EDT Primary Care Pharmacy Visit REASON FOR CONSULT: DM GOALS: A1c < 8% CONSULTING PROVIDER: Nithin Acevedo MD Date of Consult: 12/01/2020 Federico Hu is a 86 year old male presenting for follow up visit by telephone. Patient consents to pharmacy collaborative practice agreement. Last seen by PCP, Dr. Nithin Acevedo MD on 02/22/22. At last PCP appt, Ozempic dose was increased. At PharmD visit on 04/02, no medication changes made. At last PharmD visit on 04/23/22, insulin aspart was started. INTERIM HISTORY: Spoke with patient and , Aliza Reports readings are improved since starting meal time insulin Denies any low BG readings 7 day average 141 mg/dL Current DM Medications: Semaglutide (Ozempic) 1 mg once weekly on Friday mornings Insulin degludec (Tresiba) 60 units daily at bedtime Insulin aspart 6 units before dinner Preventative Medications: On BRIAN/ARB: Yes On Statin: Yes GLYCEMIC CONTROL: SMBG s: Fasting AM 174 136 125 134 126 179 171 166 183 119 Hypoglycemia: denies ROS: Patient denies CP, SOB, LUIS, blurred vision, dizziness or lightheadedness Patient denies nausea, vomiting, diarrhea, abdominal pain Patient denies symptoms of hypoglycemia (sweating, anxiety, palpitations, hunger, and tremor) Patient denies symptoms of hyperglycemia (polyuria, polydipsia, polyphagia) Patient denies potential medication adverse effects MEDICATIONS: Pill bottles are not present Adherence: denies missed doses. Pharm[facility]: [facility] [place] Rx coverage: not addressed Affordability: no concerns at this time Diabetes supplies: [employer] System: not addressed ACTIVE PROBLEM LIST Obesity, Class Iii, Bmi 40-49.9 (Morbid Obesity) ([facility]) Type 2 Diabetes Mellitus With Neurological Manifestations, Controlled ([facility]) Essential Hypertension Coronary Atherosclerosis Hyperlipemia Bph With Obstruction/Lower Urinary Tract Symptoms Anemia Oa (Osteoarthritis) of Knee Atrial Fibrillation ([facility]) S/P Cabg X 2 Rbbb (Right Bundle Branch Block) Encounter for Monitoring Anti-Arrhythmic Therapy Ckd (Chronic Kidney Disease) Stage 4, Gfr 15-29 Ml/Min ([facility]) Chronic Diastolic Chf (Congestive Heart Failure) ([facility]) 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 Hypercalcemia PAST MEDICAL HISTORY Diagnosis Date Anal fissure 06/19/2006 Atrial fibrillation ([facility]) 05/13/2016 Benign localized hyperplasia of prostate with urinary obstruction and other lower urinary tract symptoms (LUTS)(600.21) 11/30/2009 CAROTID ART OCCL-NO INFARCT 01/31/2009 Carotid US 1-09: > 50% on the R, < 50% on the L Chronic diastolic CHF (congestive heart failure) ([facility]) 07/22/2018 CKD (chronic kidney disease) stage 4, GFR 15-29 ml/min ([facility]) 07/22/2018 CORONARY ATHEROSCLER UNSPEC VESSEL 01/03/2009 2 V CABG at age 71 ECG 2: RBBB per Manish ELEVATED PROSTATE SPECIFIC ANTIGEN 02/01/2009 PSA 4.2 in 3-09: repeat with free PSA and MARIO in follow up 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 Rothman for injections. HELDER on CPAP Primary osteoarthritis of left hip 11/02/2020 RBBB (right bundle branch block) 07/30/2016 S/P CABG x 2 07/30/2016 Skin mass 10/26/2010 Lipoma, left forehead SLEEP DISTURBANCE NOS 01/31/2009 03-09-09: effic 89%, AHI 3, low sat 86% (< 89% only 1.2 minutes), PLMI 7.5/hr Type II or unspecified type diabetes mellitus without mention of complication, uncontrolled 04/2003 Unspecified essential hypertension 09/2003 ALLERGIES Allergen Reactions Proscar [Finasterid* Rash Current Outpatient Medications Medication Sig insulin aspart U-100 (NOVOLOG FLEXPEN U-100 INSULIN) 100 unit/mL (3 mL) Inject 6 Units subcutaneously daily with dinner. Patient assistance. (will switch from Humalog sample to Novolog when supply arrives) insulin lispro (HUMALOG KWIKPEN) 100 unit/mL Inject 6 Units subcutaneously daily with dinner. losartan (COZAAR) 25 mg tablet Take 1 tablet by mouth once daily. doxazosin (CARDURA) 2 mg tablet Take 1 tablet by mouth daily at bedtime. sotalol (BETAPACE) 80 mg tablet Take 0.5 tablets by mouth twice daily. semaglutide (OZEMPIC) 1 mg/dose (4 mg/3 mL) pen injector Inject 1 mg subcutaneously one time a week. furosemide (LASIX) 20 mg tablet Take 1 tablet by mouth once daily. insulin degludec (TRESIBA FLEXTOUCH U-100) 100 unit/mL (3 mL) injection pen Inject 60 Units subcutaneously every morning. Pt Assistance Medication. blood sugar diagnostic (TRUE METRIX GLUCOSE TEST STRIP) test strip Test twice daily. Dx: E11.49. Insulin: Yes. atorvastatin (LIPITOR) 40 mg tablet Take 40 mg by mouth once daily. XARELTO 15 mg tablet Take 15 mg by mouth once daily. azelastine-fluticasone (DYMISTA) 137-50 mcg/spray spry Use 1 [place] in each nostril twice daily. spironolactone (ALDACTONE) 25 mg tablet Take 1 tablet by mouth once daily. cholecalciferol, vitamin D3, (VITAMIN D3 ORAL) Take 2,000 Units by mouth once daily. LOW-DOSE ASPIRIN ORAL Take 81 mg by mouth once daily. insulin needles, DISPOSABLE, 31 gauge x 16 ndle Test blood sugar twice a day DX:E11.49 nitroglycerin sublingual (NITROQUICK) 0.4 mg SL tablet Dissolve 1 tablet under the tongue as neededfor Chest Pain. If no pain relief call 911. MULTIVITAMIN TAB Take one(1) tablet daily. No current facility-administered medications for this visit. EXAM: Last 3 Encounter BP Readings: Date: BP: 11/23/2021 144/78[bp true[ 07/05/2021 113/70 06/25/2021 155/65 Wt: 163.3 kg (360 lb) BMI: 47.50 kg/(m^2) LABS: Lab Results Component Value Date HBA1C 8.9 02/22/2022 HBA1C 9.3 11/15/2021 HBA1C 8.0 06/01/2021 HBA1C 11.6 03/02/2021 CMP: Glucose 271 02/22/2022 BUN 38 02/22/2022 Creatinine, Whole Blood (iSTAT) 1.91 02/22/2022 Sodium 140 02/22/2022 Potassium 4.7 02/22/2022 Chloride 101 02/22/2022 CO2 29 02/22/2022 Protein, Total 6.2 02/22/2022 Albumin 4.0 11/15/2021 Calcium 10.9 02/22/2022 Alkaline Phosphatase 83 11/15/2021 Bilirubin, Total 0.5 11/15/2021 AST 24 11/15/2021 ALT 26 11/15/2021 Serum creatinine: 1.91 mg/dL (H) 02/22/22 1251 Estimated creatinine clearance: 45.3 mL/min (A) Vitamin B12 Date Value Ref Range Status 09/11/2017 850 211 - 946 pg/mL Final Lab Results Component Value Date CHOL 98 11/15/2021 LDL 37 11/15/2021 HDL 35 11/15/2021 TG 129 11/15/2021 The ASCVD Risk score (Richmondgagan DAVIDSON Jr., et al., 2013) failed to calculate for the following reasons: The 2013 ASCVD risk score is only valid for ages 40 to 79 Albumin/Creat Ratio (mg/g) Date Value 11/15/2021 39 (H) PHARMACOTHERAPY ASSESSMENT/PLAN: 1. Type 2 diabetes mellitus with neurological manifestations, controlled (HCC) - ICD9: 250.60, ICD10: E11.49 A1c goal < 8%; not at goal (last A1c 8.9%); SMBG improving on current regimen. Today, will continue current regimen and recheck A1c before next PCP visit. CONTINUE Semaglutide (Ozempic) 1 mg once weekly, Insulin degludec (Tresiba) 60 units daily at bedtime, insulin aspart (Novolog) 6 units before dinner - HGB A1C Follow up: Patient is scheduled to see PCP on 06/12/22. Patient to follow up with PharmD on 06/25/22. Patient verbalized understanding of instructions. Adriana Garrison PharmD, NEERU Primary Care Clinical Pharmacist [facility] The majority of the pharmacy visit (> 50%) was spent counseling and/or coordinating care for thepatient. [Telephonic] time was 18 minutes. documented in this encounterKing[facility] [place]-14-[facility] Miscellaneous Notes* Telephone Encounter - Ciera Conner LPN - 04/30/2022 4:04 PM EDT pcp signed form. This has been faxed back. * Telephone Encounter - Adriana Garrison RPh - 04/29/2022 5:28 PM EDT Patient was started on meal time insulin on 04/23. Temporarily started on Humalog pen with 1 month free voucher due to cost barrier. He is currently enrolled in [facility], will pursue Novolog brand to switch to in future once Humalog supply depleted. Completed refill form to reflect addition of meal time insulin and Tresiba dose increase. Will provide to PCP for review and signature. Please fax with attached cover sheet once signed. Thanks! Adriana Garrison PharmD, NEERU Primary Care Clinical Pharmacist [facility] documented in this encounterKing'S [facility] [place]06-08-2022 Miscellaneous Notes* Telephone Encounter - Adriana Garrison RPh - 04/24/2022 1:31 PM EDT Notified patient's ,Aliza, who verbalized understanding. Also called [facility] and provided codes for 1 month free voucher. Adriana Garrison PharmD, NEERU Primary Care Clinical Pharmacist [facility] * Telephone Encounter - Adriana Garrison RP - 04/24/2022 1:16 PM EDT Called and spoke with [facility] in [place], they also do not have Novolog pens in stock but do have Humalog. Will send Humalog as replacement of Novolog as to not further delay start of bolus insulin. Also sending free Voucher for 1 box free. The following approved medication requests have been transmitted electronically. Signed Prescriptions Disp Refills insulin lispro (HUMALOG KWIKPEN) 100 unit/mL 5 Pen 0 Sig: Inject 6 Units subcutaneously daily with dinner. Authorizing Provider: KATHERIN AMEZCUA Ordering User: ADRIANA GARRISON, PharmD, BCACP Primary Care Clinical Pharmacist [facility] * Telephone Encounter - Ciera Conner LPN - 04/24/2022 10:39 AM EDT [facility] Can you send again with the voucher? * Telephone Encounter - Carmen Greco Pss - 04/24/2022 9:26 AM EDT Patient's calling stating that Novolog that was called into pharmacy in [place] is out of stockand they won't have any for 2-3 days. Is there another pharmacy this could be called into? will be in [place] this afternoon. Please advise and call with plan. documented in this encounterKing'S [facility] [place]06-08-2022 Miscellaneous Notes* Telephone Encounter - Katherin Amezcua APRN.CNP - 04/24/2022 10:13 AM EDT This was sent by Adriana on 04/23 with note to pharmacy to use one time free voucher? Katherin Amezcua APRN.CNP documented in this encounterKing'S [facility] [place]06-07-2022 History of Present illness Narrative* Adriana Garrison, [facility] - 04/23/2022 2:00 PM EDT Primary Care Pharmacy Visit REASON FOR CONSULT: DM GOALS: A1c < 8% CONSULTING PROVIDER: Nithin Acevedo MD Date of Consult: 12/01/2020 Federico Hu is a 86 year old male presenting for follow up visit by telephone. Patient consents to pharmacy collaborative practice agreement. Last seen by PCP, Dr. Nithin Acevedo MD on 02/22/22. At last PCP appt, Ozempic dose was increased. At last PharmD visit on 04/02, no medication changes made. INTERIM HISTORY: Spoke with patient and , Aliza Patient reports he flipped his mower over the weekend Went to the emergency room and was started on antibiotics - 10 day course of Augmentin Readings have increased while on antibiotics. He was seen by orthopedic doctor who was concerned with elevated BG readings and referred patient to plastic surgeon and Dr. Henley (endocrinology) Patient reports he also needs to start going to the wound center Current DM Medications: Semaglutide (Ozempic) 1 mg once weekly on Friday mornings Insulin degludec (Tresiba) 60 units daily at bedtime Preventative Medications: On BRIAN/ARB: Yes On Statin: Yes GLYCEMIC CONTROL: SMBG s: Date Fasting AM 2 hr PP Before Lunch 2 hr PP Before Dinner 2 hr PP Bedtime 04/05 172 04/06 159 04/07 233 04/08 161 04/09 177 04/10 191 04/11 167 04/12 168 04/13 220 6/3 298 6/4 215 6/5 245 275 6/6 174 6/7 183 Hypoglycemia: denies ROS: Patient denies CP, SOB, LUIS, blurred vision, dizziness or lightheadedness Patient denies nausea, vomiting, diarrhea, abdominal pain Patient denies symptoms of hypoglycemia (sweating, anxiety, palpitations, hunger, and tremor) Patient denies symptoms of hyperglycemia (polyuria, polydipsia, polyphagia) Patient denies potential medication adverse effects MEDICATIONS: Pill bottles are not present Adherence: denies missed doses. Pharmacy: [facility] [place] Rx coverage: not addressed Affordability: no concerns at this time Diabetes supplies: [employer] P[employer] System: not addressed ACTIVE PROBLEM LIST Obesity, Class Iii, Bmi 40-49.9 (Morbid Obesity) ([facility]) Type 2 Diabetes Mellitus With Neurological Manifestations, Controlled ([facility]) Essential Hypertension Coronary Atherosclerosis Hyperlipemia Bph With Obstruction/Lower Urinary Tract Symptoms Anemia Oa (Osteoarthritis) of Knee Atrial Fibrillation ([facility]) S/P Cabg X 2 Rbbb (Right Bundle Branch Block) Encounter for Monitoring Anti-Arrhythmic Therapy Ckd (Chronic Kidney Disease) Stage 4, Gfr 15-29 Ml/Min ([facility]) Chronic Diastolic Chf (Congestive Heart Failure) ([facility]) 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 Hypercalcemia PAST MEDICAL HISTORY Diagnosis Date Anal fissure 06/19/2006 Atrial fibrillation ([facility]) 05/13/2016 Benign localized hyperplasia of prostate with urinary obstruction and other lower urinary tract symptoms (LUTS)(600.21) 11/30/2009 CAROTID ART OCCL-NO INFARCT 01/31/2009 Carotid US 1-09: > 50% on the R, < 50% on the L Chronic diastolic CHF (congestive heart failure) ([facility]) 07/22/2018 CKD (chronic kidney disease) stage 4, GFR 15-29 ml/min ([facility]) 07/22/2018 CORONARY ATHEROSCLER UNSPEC VESSEL 01/03/2009 2 V CABG at age 71 ECG 2-09: RBBB per Manish ELEVATED PROSTATE SPECIFIC ANTIGEN 02/01/2009 PSA 4.2 in 3-09: repeat with free PSA and MARIO in follow up Glycosuria 04/2003 HYPERLIPIDEMIA NEC/NOS 01/03/2009 LDL 47, HDL 40, TG 93 in 11-08 Hypertrophy of prostate with urinary obstruction and other lower urinary tract symptoms (LUTS) 08/08/2010 Morbid obesity ([facility]) 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 Rothman for injections. HELDER on CPAP Primary osteoarthritis of left hip 11/02/2020 RBBB (right bundle branch block) 07/30/2016 S/P CABG x 2 07/30/2016 Skin mass 10/26/2010 Lipoma, left forehead SLEEP DISTURBANCE NOS 01/31/200909: effic 89%, AHI 3, low sat 86% (< 89% only 1.2 minutes), PLMI 7.5/hr Type II or unspecified type diabetes mellitus without mention of complication, uncontrolled 04/2003 Unspecified essential hypertension 09/2003 ALLERGIES Allergen Reactions Proscar [Finasterid* Rash Current Outpatient Medications Medication Sig losartan (COZAAR) 25 mg tablet Take 1 tablet by mouth once daily. doxazosin (CARDURA) 2 mg tablet Take 1 tablet by mouth daily at bedtime. sotalol (BETAPACE) 80 mg tablet Take 0.5 tablets by mouth twice daily. semaglutide (OZEMPIC) 1 mg/dose (4 mg/3 mL) pen injector Inject 1 mg subcutaneously one time a week. furosemide (LASIX) 20 mg tablet Take 1 tablet by mouth once daily. insulin degludec (TRESIBA FLEXTOUCH U-100) 100 unit/mL (3 mL) injection pen Inject 60 Units subcutaneously every morning. Pt Assistance Medication. blood sugar diagnostic (TRUE METRIX GLUCOSE TEST STRIP) test strip Test twice daily. Dx: E11.49. Insulin: Yes. atorvastatin (LIPITOR) 40 mg tablet Take 40 mg by mouth once daily. XARELTO 15 mg tablet Take 15 mg by mouth once daily. azelastine-fluticasone (DYMISTA) 137-50 mcg/spray spry Use 1 Wheeling in each nostril twice daily. spironolactone (ALDACTONE) 25 mg tablet Take 1 tablet by mouth once daily. cholecalciferol, vitamin D3, (VITAMIN D3 ORAL) Take 2,000 Units by mouth once daily. LOW-DOSE ASPIRIN ORAL Take 81 mg by mouth once daily. insulin needles, DISPOSABLE, 31 gauge x 5/16 ndle Test blood sugar twice a day DX:E11.49 nitroglycerin sublingual (NITROQUICK) 0.4 mg SL tablet Dissolve 1 tablet under the tongue as neededfor Chest Pain. If no pain relief call 911. MULTIVITAMIN TAB Take one(1) tablet daily. No current facility-administered medications for this visit. EXAM: Last 3 Encounter BP Readings: Date: BP: 11/23/2021 144/78[bp true[ 07/05/2021 113/70 06/25/2021 155/65 Wt: 163.3 kg (360 lb) BMI: 47.50 kg/(m^2) LABS: Lab Results Component Value Date HBA1C 8.9 02/22/2022 HBA1C 9.3 11/15/2021 HBA1C 8.0 06/01/2021 HBA1C 11.6 03/02/2021 CMP: Glucose 271 02/22/2022 BUN 38 02/22/2022 Creatinine, Whole Blood (iSTAT) 1.91 02/22/2022 Sodium 140 02/22/2022 Potassium 4.7 02/22/2022 Chloride 101 02/22/2022 CO2 29 02/22/2022 Protein, Total 6.2 02/22/2022 Albumin 4.0 11/15/2021 Calcium 10.9 02/22/2022 Alkaline Phosphatase 83 11/15/2021 Bilirubin, Total 0.5 11/15/2021 AST 24 11/15/2021 ALT 26 11/15/2021 Serum creatinine: 1.91 mg/dL (H) 02/22/22 1251 Estimated creatinine clearance: 45.3 mL/min (A) Vitamin B12 Date Value Ref Range Status 09/11/2017 850 211 - 946 pg/mL Final Lab Results Component Value Date CHOL 98 11/15/2021 LDL 37 11/15/2021 HDL 35 11/15/2021 TG 129 11/15/2021 The ASCVD Risk score (Jefgagan DAVIDSON Jr., et al., 2013) failed to calculate for the following reasons: The 2013 ASCVD risk score is only valid for ages 40 to 79 Albumin/Creat Ratio (mg/g) Date Value 11/15/2021 39 (H) PHARMACOTHERAPY ASSESSMENT/PLAN: 1. Uncontrolled type 2 diabetes mellitus with hyperglycemia (HCC) - ICD9: 250.02, ICD10: E11.65 A1c goal < 8%; not at goal (last A1c 8.9%); SMBG elevated due to recent course of antibiotics and illness. Today, will initiate bolus insulin with largest meal for improved BG control. Pt obtains insulins through [employer] patient assistance. Will try to receive immediate supply from local pharmacy while awaiting from patient assistance supply to be mailed. Renal function and LFTs appropriate for continued use START insulin aspart (Novolog) 6 units before dinner CONTINUE Semaglutide (Ozempic) 1 mg once weekly, Insulin degludec (Tresiba) 60 units daily at bedtime - INSULIN ASPART (U-100) 100 UNIT/ML (3 ML) SUBCUTANEOUS PEN Follow up: Patient is scheduled to see PCP on 06/12/22. Patient to follow up with PharmD on 05/07/22. Patient verbalized understanding of instructions. Adriana Garrison PharmD, BCACP Primary Care Clinical Pharmacist [facility] The majority of the pharmacy visit (> 50%) was spent counseling and/or coordinating care for thepatient. [Telephonic] time was 29 minutes. documented in this encounterKing'[facility] [place]05-23-2022 Miscellaneous Notes* Telephone Encounter - Daxa Morin LPN - 04/08/2022 5:32 PM EDT Patient notified of below recommendation, will come in for labs. Daxa Morin LPN * Telephone Encounter - Daxa Morin LPN - 04/08/2022 5:30 PM EDT ----- Message from Nithin Acevedo MD sent at 04/07/2022 12:14 AM EDT ----- Result(s) viewed by patient: Partially. For appointment:06/12/22. Please have patient repeat labs atthis time: renal panel and monoclonal protein analysis suggested. documented in this encounterKing'S [facility] [place]05-17-2022 History of Present illness Narrative* Adriana Garrison RPh - 04/02/2022 1:30 PM EDT Primary Care Pharmacy Visit REASON FOR CONSULT: DM GOALS: A1c < 8% CONSULTING PROVIDER: Nithin Acevedo MD Date of Consult: 12/01/2020 Federico Hu is a 86 year old male presenting for follow up visit by telephone. Patient consents to pharmacy collaborative practice agreement. Last seen by PCP, Dr. Nithin Acevedo MD on 02/22/22. At last PCP appt, Ozempic dose was increased. INTERIM HISTORY: Spoke with patient and , Aliza Reports readings are elevated (see log below) Reports excursions with diet cause most days with elevated BG Having ice cream in evening times Current DM Medications: Semaglutide (Ozempic) 1 mg once weekly on Friday mornings Insulin degludec (Tresiba) 60 units daily at bedtime Past DM medications: Liraglutude (Victoza) - replaced with Ozempic for additional weight loss benefit Metformin - discontinued due to CKD Actos - caused edema and weight gain GLYCEMIC CONTROL: Glucometer present at visit: n/a, phone visit SMBG s: 7 day: 173 mg/dL 14 day: 147 mg/dL 30 day: 190 mg/dL Date Fasting AM 2 hr PP Before Lunch 2 hr PP Before Dinner 2 hr PP Bedtime 04/02 195 04/01 201 03/31 158 03/30 128 03/29 159 03/28 203 03/27 187 03/26 185 03/25 184 Hypoglycemia: none ROS: Patient denies CP, SOB, LUIS, blurred vision, dizziness or lightheadedness Patient denies nausea, vomiting, diarrhea, abdominal pain Patient denies symptoms of hypoglycemia (sweating, anxiety, palpitations, hunger, and tremor) Patient denies symptoms of hyperglycemia (polyuria, polydipsia, polyphagia) Patient denies potential medication adverse effects MEDICATIONS: Pill bottles are not present Adherence: denies missed doses. Pharmacy: [facility] in [place] Rx coverage: not addressed Affordability: no concerns at this time Diabetes supplies: [employer] Organization System: not addressed ACTIVE PROBLEM LIST Obesity, Class Iii, Bmi 40-49.9 (Morbid Obesity) ([facility]) Type 2 Diabetes Mellitus With Neurological Manifestations, Controlled ([facility]) Essential Hypertension Coronary Atherosclerosis Hyperlipemia Bph With Obstruction/Lower Urinary Tract Symptoms Anemia Oa (Osteoarthritis) of Knee Atrial Fibrillation ([facility]) S/P Cabg X 2 Rbbb (Right Bundle Branch Block) Encounter for Monitoring Anti-Arrhythmic Therapy Ckd (Chronic Kidney Disease) Stage 4, Gfr 15-29 Ml/Min ([facility]) Chronic Diastolic Chf (Congestive Heart Failure) ([facility]) 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 Hypercalcemia PAST MEDICAL HISTORY Diagnosis Date Anal fissure 06/19/2006 Atrial fibrillation (HCC) 05/13/2016 Benign localized hyperplasia of prostate with urinary obstruction and other lower urinary tract symptoms (LUTS)(600.21) 11/30/2009 CAROTID ART OCCL-NO INFARCT 01/31/2009 Carotid US 1-09: > 50% on the R, < 50% on the L Chronic diastolic CHF (congestive heart failure) ([facility]) 07/22/2018 CKD (chronic kidney disease) stage 4, GFR 15-29 ml/min ([facility]) 07/22/2018 CORONARY ATHEROSCLER UNSPEC VESSEL 01/03/2009 2 V CABG at age 71 ECG 12-26: RBBB per Manish ELEVATED PROSTATE SPECIFIC ANTIGEN 02/01/2009 PSA 4.2 in 01-23: repeat with free PSA and MARIO in follow up 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 Rothman for injections. HELDER on CPAP Primary osteoarthritis of left hip 11/02/2020 RBBB (right bundle branch block) 07/30/2016 S/P CABG x 2 07/30/2016 Skin mass 10/26/2010 Lipoma, left forehead SLEEP DISTURBANCE NOS 01/31/2009 03-09-09: effic 89%, AHI 3, low sat 86% (< 89% only 1.2 minutes), PLMI 7.5/hr Type II or unspecified type diabetes mellitus without mention of complication, uncontrolled 04/2003 Unspecified essential hypertension 09/2003 ALLERGIES Allergen Reactions Proscar [Finasterid* Rash Current Outpatient Medications Medication Sig losartan (COZAAR) 25 mg tablet Take 1 tablet by mouth once daily. doxazosin (CARDURA) 2 mg tablet Take 1 tablet by mouth daily at bedtime. sotalol (BETAPACE) 80 mg tablet Take 0.5 tablets by mouth twice daily. semaglutide (OZEMPIC) 1 mg/dose (4 mg/3 mL) pen injector Inject 1 mg subcutaneously one time a week. furosemide (LASIX) 20 mg tablet Take 1 tablet by mouth once daily. insulin degludec (TRESIBA FLEXTOUCH U-100) 100 unit/mL (3 mL) injection pen Inject 60 Units subcutaneously every morning. Pt Assistance Medication. blood sugar diagnostic (TRUE METRIX GLUCOSE TEST STRIP) test strip Test twice daily. Dx: E11.49. Insulin: Yes. atorvastatin (LIPITOR) 40 mg tablet Take 40 mg by mouth once daily. XARELTO 15 mg tablet Take 15 mg by mouth once daily. azelastine-fluticasone (DYMISTA) 137-50 mcg/spray spry Use 1 [place] in each nostril twice daily. spironolactone (ALDACTONE) 25 mg tablet Take 1 tablet by mouth once daily. cholecalciferol, vitamin D3, (VITAMIN D3 ORAL) Take 2,000 Units by mouth once daily. LOW-DOSE ASPIRIN ORAL Take 81 mg by mouth once daily. insulin needles, DISPOSABLE, 31 gauge x 04/01 ndle Test blood sugar twice a day DX:E11.49 nitroglycerin sublingual (NITROQUICK) 0.4 mg SL tablet Dissolve 1 tablet under the tongue as neededfor Chest Pain. If no pain relief call 911. MULTIVITAMIN TAB Take one(1) tablet daily. No current facility-administered medications for this visit. EXAM: Last 3 Encounter BP Readings: Date: BP: 11/23/2021 144/78[bp true[ 07/05/2021 113/70 06/25/2021 155/65 Wt: 163.3 kg (360 lb) BMI: 47.50 kg/(m^2) LABS: Lab Results Component Value Date HBA1C 8.9 02/22/2022 HBA1C 9.3 11/15/2021 HBA1C 8.0 06/01/2021 HBA1C 11.6 03/02/2021 CMP: Glucose 271 02/22/2022 BUN 38 02/22/2022 Creatinine, Whole Blood (iSTAT) 1.91 02/22/2022 Sodium 140 02/22/2022 Potassium 4.7 02/22/2022 Chloride 101 02/22/2022 CO2 29 02/22/2022 Protein, Total 6.2 02/22/2022 Albumin 4.0 11/15/2021 Calcium 10.9 02/22/2022 Alkaline Phosphatase 83 11/15/2021 Bilirubin, Total 0.5 11/15/2021 AST 24 11/15/2021 ALT 26 11/15/2021 Serum creatinine: 1.91 mg/dL (H) 02/22/22 1251 Estimated creatinine clearance: 45.3 mL/min (A) Vitamin B12 Date Value Ref Range Status 09/11/2017 850 211 - 946 pg/mL Final Lab Results Component Value Date CHOL 98 11/15/2021 LDL 37 11/15/2021 HDL 35 11/15/2021 TG 129 11/15/2021 The ASCVD Risk score (Jef DAVIDSON Jr., et al., 2013) failed to calculate for the following reasons: The 2013 ASCVD risk score is only valid for ages 40 to 79 Albumin/Creat Ratio (mg/g) Date Value 11/15/2021 39 (H) PHARMACOTHERAPY ASSESSMENT/PLAN: 1. Uncontrolled type 2 diabetes mellitus with hyperglycemia (HCC) - ICD9: 250.02, ICD10: E11.65 A1c goal < 8%; not at goal (last A1c 8.9%); SMBG elevated on current regimen due to diet excursions; denies s/sx hypoglycemia; denies s/sx hyperglycemia; Patient prefers to focus on diet changes. Today will continue current regimen. Renal function and LFTs appropriate for continued use CONTINUE Semaglutide (Ozempic) 1 mg once weekly, Insulin degludec (Tresiba) 60 units daily at bedtime HbA1c: due 05/24/22 Follow up: Patient is scheduled to see PCP on 06/12/22. Patient to follow up with PharmD on 04/23/22. Patient verbalized understanding of instructions. Adriana Garrison PharmD, BCACP Primary Care Clinical Pharmacist [facility] The majority of the pharmacy visit (> 50%) was spent counseling and/or coordinating care for thepatient. [Telephonic] time was 14 minutes. documented in this encounterKing'S [facility] [place]05-16-2022 Miscellaneous Notes* Telephone Encounter - Bear Godo RN - 04/01/2022 10:28 AM EDT Patient has been identified by name and date of : Yes Spouse phones for refill(s): Pending Prescriptions Disp Refills LOSARTAN 25 MG TABLET 90 tablet 1 Sig: Take 1 tablet by mouth once daily. NICHOLE: No Date of last office visit with pcp: 02-22-22. Next appt: 06-12-22 Last 2 Encounter Wt Readings: Date: Wt: 02/22/2022 163.3 kg (360 lb) 11/23/2021 153.8 kg (339 lb) Previous labs/tests for medication: Blood Pressure: BUN (mg/dL) Date Value 02/22/2022 38 11/15/2021 27 Sodium (mmol/L) Date Value 02/22/2022 140 11/15/2021 140 Last 1 Encounter BP Readings: Date: BP: 11/23/2021 144/78[bp true[ Please advise. Thank you. Bear Good RN documented in this encounterKing'S [facility] [place]04-28-2022 Miscellaneous Notes* Telephone Encounter - Ciera Conner LPN - 03/14/2022 12:30 PM EDT pts spouse has picked this up. * Telephone Encounter - Ciera Conner LPN - 03/13/2022 11:25 AM EDT This is in the fridge on the left side. pts spouse notified. She says she will get this today. * Telephone Encounter - Ciera Conner LPN - 03/13/2022 10:56 AM EDT rec'd 4 boxes of ozepmic 1x3ml 4pcsnf 1x3 ml prefilled pen Lot [id number] Exp date is 11/16/2024. documented in this encounterKing'S [facility] [place]04-28-2022 Miscellaneous Notes* Telephone Encounter - Adriana Garrison RP - 03/14/2022 11:36 AM EDT Attempted to call patient for scheduled pharmacy phone call this morning. Patient states his is primary person that takes care of his medications and blood sugar monitoring. She was not home at time of call. Attempted to walk patient through how to access glucometer history but he was not able to access the menu, does not know what his readings are or dosages of medications. Asks that we reschedule the meeting for when his is present. States he will ask her to call and reschedule as he does not know her schedule. Appt cancelled, will await call back. Adriana Garrison, PharmD, BCACP Primary Care Clinical Pharmacist [facility] documented in this encounterKing'S [facility] [place]04-11-2022 Miscellaneous Notes* Telephone Encounter - Ciera Conner LPN - 02/25/2022 2:02 PM EDT At last appt pcp increased pts semaglutide (OZEMPIC) 1 mg/dose (4 mg/3 mL) pen injector. New pt assistance forms completed for the higher dose. This was faxed to [facility]. documented in this encounterKing'S [facility] [place]04-08-2022 History of Present illness Narrative* Nithin Acevedo MD - 02/22/2022 12:15 PM EDT This note was created using Qireriter. Subjective Federico Hu is a 86 year old male. He was doing reasonably well. 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 Strickland next week. His hypertension was elevated. His diabetes mellitus was not well controlled. Review of Systems Constitutional: Negative. Respiratory: Negative. Cardiovascular: Negative. Gastrointestinal: Negative. ACTIVE PROBLEM LIST Obesity, Class Iii, Bmi 40-49.9 (Morbid Obesity) ([facility]) Type 2 Diabetes Mellitus With Neurological Manifestations, Controlled ([facility]) Essential Hypertension Coronary Atherosclerosis Hyperlipemia Bph With Obstruction/Lower Urinary Tract Symptoms Anemia Oa (Osteoarthritis) of Knee Atrial Fibrillation ([facility]) S/P Cabg X 2 Rbbb (Right Bundle Branch Block) Encounter for Monitoring Anti-Arrhythmic Therapy Ckd (Chronic Kidney Disease) Stage 4, Gfr 15-29 Ml/Min ([facility]) Chronic Diastolic Chf (Congestive Heart Failure) ([facility]) 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 Hypercalcemia Current Outpatient Medications Medication Sig furosemide (LASIX) 20 mg tablet Take 1 tablet by mouth once daily. insulin degludec (TRESIBA FLEXTOUCH U-100) 100 unit/mL (3 mL) injection pen Inject 60 Units subcutaneously every morning. Pt Assistance Medication. blood sugar diagnostic (TRUE METRIX GLUCOSE TEST STRIP) test strip Test twice daily. Dx: E11.49. Insulin: Yes. losartan (COZAAR) 25 mg tablet Take 1 tablet by mouth once daily. atorvastatin (LIPITOR) 40 mg tablet Take 40 mg by mouth once daily. XARELTO 15 mg tablet Take 15 mg by mouth once daily. semaglutide (OZEMPIC) 0.25 mg or 0.5 mg(2 mg/1.5 mL) pnij Inject 0.5 mg subcutaneously one time a week. Get's through patient assistance. Replaces Victoza. azelastine-fluticasone (DYMISTA) 137-50 mcg/spray spry Use 1 [place] in each nostril twice daily. spironolactone (ALDACTONE) 25 mg tablet Take 1 tablet by mouth once daily. sotalol (BETAPACE) 80 mg tablet Take 1 tablet by mouth once daily. doxazosin (CARDURA) 2 mg tablet Take 1 tablet by mouth daily at bedtime. cholecalciferol, vitamin D3, (VITAMIN D3 ORAL) Take 2,000 Units by mouth once daily. LOW-DOSE ASPIRIN ORAL Take 81 mg by mouth once daily. insulin needles, DISPOSABLE, 31 gauge x 04/01 ndle Test blood sugar twice a day DX:E11.49 nitroglycerin sublingual (NITROQUICK) 0.4 mg SL tablet Dissolve 1 tablet under the tongue as neededfor Chest Pain. If no pain relief call 911. MULTIVITAMIN TAB Take one(1) tablet daily. No current facility-administered medications for this visit. Objective BP (P) 144/66 (BP Site: Left Arm, BP Position: Sitting, BP Cuff Size: Large Adult) Pulse (P) 66 Temp (!) (P) 35.9 C (96.7 F) (Temporal) Resp (P) 16 Wt (!) 163.3 kg (360 lb) BMI 47.50 kg/m Physical Exam Constitutional: General: He is not in acute distress. Cardiovascular: Rate and Rhythm: Normal rate. Rhythm irregular. Heart sounds: No murmur heard. No gallop. Pulmonary: Effort: Pulmonary effort is normal. Breath sounds: Normal breath sounds. Musculoskeletal: Right lower leg: No edema. Left lower leg: No edema. Neurological: Mental Status: He is alert. Labs TBD. Glucose meter data or log was reviewed for the past month. Range: 150-189. Average: 189. Patient was testing daily or less. Higher frequency testing needed: yes. Reason: medication adjustment, uncontrolled DM, labile blood sugars. ASSESSMENT/PLAN: 1. Type 2 diabetes mellitus with neurological manifestations, controlled ([facility]) - ICD9: 250.60, ICD10: E11.49 (primary diagnosis) poorly controlled - Continue current medications - OZEMPIC 1 MG/DOSE (4 MG/3 ML) SUBCUTANEOUS PEN INJECTOR. Dose increased. Printed for patient assistance. He will take 2 shots weekly. 2. BPH with urinary obstruction - ICD9: 600.01, 599.69, ICD10: N40.1, N13.8 - DOXAZOSIN 2 MG TABLET 3. Atrial fibrillation, unspecified type ([facility]CC) - ICD9: 427.31, ICD10: I48.91 - SOTALOL 80 MG TABLET Nithin Acevedo MD [facility] [place] History of Present illness Narrative* Kristine Nicholson Tech (Rt) - 10/30/2020 5:50 PM EST Radiology Service Progress Note PATIENT NAME: Federico Hu DATE OF SERVICE: October 30, 2020 TIME: 5:56 PM PATIENT IDENTITY VERIFICATION COMPLETED USING TWO (2) IDENTIFIERS: Name and Date of confirmedby patient verbally. FALL SCREENING: Has the patient had 2 falls in the last year or 1 fall with injury or currently using an Ambulatory Assistive Device (Walker, Cane, Wheelchair, Crutches, etc.)? No PATIENT GENDER DATA: Male PATIENT RELEVANT IMPLANT DATA REVIEWED: Yes RADIOLOGY DEPARTMENT: General X-ray: Exam(s) Completed: Pelvis X-Ray: Pelvis with Hip Left PERIPHERAL IV DATA: Not applicable SIGNED BY: RT Tree October 30, 2020 5:56 PM documented in this encounterKing[facility] [place] History of Past illness Narrative* Problem Noted Date Resolved Date CKD (chronic kidney disease) stage 3, GFR 30-59 ml/min 09/20/2017 12/15/2018 COPD with exacerbation 08/07/2016 0 Skin mass 10/26/2010 05/13/2013 Overview: Lipoma, left forehead Benign localized hyperplasia of prostate with urinary obstruction and other lower urinary tract symptoms (LUTS)(600.21) 11/30/2009 10/09/2010 Elevated prostate specific antigen (PSA) 009 01/19/2018 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 01/31/2009 01/26/2019 Overview: Carotid US 1-09: > 50% on the R, < 50% on the L Unspecified Sleep Disturbance 01/31/2009 Overview: 03-09-: effic 89%, AHI 3, low sat 86% (< 89% only 1.2 minutes), PLMI 7.5/hr Unspecified pleural effusion 12/25/2006 Shortness of breath 10/23/2006 10/09/2010 Anal fissure 06/19/2006 10/09/2010 documented as of this encounter (statuses as of 02/22/2022) [facility] [place] History of Past illness Narrative* Problem Noted Date Resolved Date CKD (chronic kidney disease) stage 3, GFR 30-59 ml/min 09/20/2017 12/15/2018 COPD with exacerbation 08/07/2016 0 Skin mass 10/26/2010 05/13/2013 Overview: Lipoma, left forehead Benign localized hyperplasia of prostate with urinary obstruction and other lower urinary tract symptoms (LUTS)(600.21) 11/30/2009 10/09/2010 Elevated prostate specific antigen (PSA) 009 01/19/2018 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 01/31/2009 01/26/2019 Overview: Carotid US 1-09: > 50% on the R, < 50% on the L Unspecified Sleep Disturbance 01/31/2009 Overview: 03-09-09: effic 89%, AHI 3, low sat 86% (< 89% only 1.2 minutes), PLMI 7.5/hr Unspecified pleural effusion 12/25/2006 Shortness of breath 10/23/2006 10/09/2010 Anal fissure 06/19/2006 10/09/2010 documented as of this encounter (statuses as of 02/25/2022) [facility] [place] History of Past illness Narrative* Problem Noted Date Resolved Date CKD (chronic kidney disease) stage 3, GFR 30-59 ml/min 09/20/2017 12/15/2018 COPD with exacerbation 08/07/2016 0 Skin mass 10/26/2010 05/13/2013 Overview: Lipoma, left forehead Benign localized hyperplasia of prostate with urinary obstruction and other lower urinary tract symptoms (LUTS)(600.21) 11/30/2009 10/09/2010 Elevated prostate specific antigen (PSA) 009 01/19/2018 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 01/31/2009 01/26/2019 Overview: Carotid US 1-09: > 50% on the R, < 50% on the L Unspecified Sleep Disturbance 01/31/2009 Overview: 03-09-09: effic 89%, AHI 3, low sat 86% (< 89% only 1.2 minutes), PLMI 7.5/hr Unspecified pleural effusion 12/25/2006 Shortness of breath 10/23/2006 10/09/2010 Anal fissure 06/19/2006 10/09/2010 documented as of this encounter (statuses as of 03/14/2022) [facility] [place] History of Past illness Narrative* Problem Noted Date Resolved Date CKD (chronic kidney disease) stage 3, GFR 30-59 ml/min 09/20/2017 12/15/2018 COPD with exacerbation 08/07/2016 0 Skin mass 10/26/2010 05/13/2013 Overview: Lipoma, left forehead Benign localized hyperplasia of prostate with urinary obstruction and other lower urinary tract symptoms (LUTS)(600.21) 11/30/2009 10/09/2010 Elevated prostate specific antigen (PSA) 009 01/19/2018 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 01/31/2009 01/26/2019 Overview: Carotid US 1-09: > 50% on the R, < 50% on the L Unspecified Sleep Disturbance 01/31/2009 Overview: 03-09-09: effic 89%, AHI 3, low sat 86% (< 89% only 1.2 minutes), PLMI 7.5/hr Unspecified pleural effusion 12/25/2006 Shortness of breath 10/23/2006 10/09/2010 Anal fissure 06/19/2006 10/09/2010 documented as of this encounter (statuses as of 03/29/2022) [facility] [place] of Past illness Narrative* Problem Noted Date Resolved Date CKD (chronic kidney disease) stage 3, GFR 30-59 ml/min 09/20/2017 12/15/2018 COPD with exacerbation 08/07/2016 0 Skin mass 10/26/2010 05/13/2013 Overview: Lipoma, left forehead Benign localized hyperplasia of prostate with urinary obstruction and other lower urinary tract symptoms (LUTS)(600.21) 11/30/2009 10/09/2010 Elevated prostate specific antigen (PSA) 009 01/19/2018 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 01/31/2009 01/26/2019 Overview: Carotid US 1-09: > 50% on the R, < 50% on the L Unspecified Sleep Disturbance 01/31/2009 Overview: 03-09-09: effic 89%, AHI 3, low sat 86% (< 89% only 1.2 minutes), PLMI 7.5/hr Unspecified pleural effusion 12/25/2006 Shortness of breath 10/23/2006 10/09/2010 Anal fissure 06/19/2006 10/09/2010 documented as of this encounter (statuses as of 04/01/2022) [facility] [place] of Past illness Narrative* Problem Noted Date Resolved Date CKD (chronic kidney disease) stage 3, GFR 30-59 ml/min 09/20/2017 12/15/2018 COPD with exacerbation 08/07/2016 0 Skin mass 10/26/2010 05/13/2013 Overview: Lipoma, left forehead Benign localized hyperplasia of prostate with urinary obstruction and other lower urinary tract symptoms (LUTS)(600.21) 11/30/2009 10/09/2010 Elevated prostate specific antigen (PSA) 009 01/19/2018 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 01/31/2009 01/26/2019 Overview: Carotid US 1-09: > 50% on the R, < 50% on the L Unspecified Sleep Disturbance 01/31/2009 Overview: 03-09-09: effic 89%, AHI 3, low sat 86% (< 89% only 1.2 minutes), PLMI 7.5/hr Unspecified pleural effusion 12/25/2006 Shortness of breath 10/23/2006 10/09/2010 Anal fissure 06/19/2006 10/09/2010 documented as of this encounter (statuses as of 04/08/2022) [facility] [place] History of Past illness Narrative* Problem Noted Date Resolved Date CKD (chronic kidney disease) stage 3, GFR 30-59 ml/min 09/20/2017 12/15/2018 COPD with exacerbation 08/07/2016 0 Skin mass 10/26/2010 05/13/2013 Overview: Lipoma, left forehead Benign localized hyperplasia of prostate with urinary obstruction and other lower urinary tract symptoms (LUTS)(600.21) 11/30/2009 10/09/2010 Elevated prostate specific antigen (PSA) 009 01/19/2018 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 01/31/2009 01/26/2019 Overview: Carotid US 1-09: > 50% on the R, < 50% on the L Unspecified Sleep Disturbance 01/31/2009 Overview: 03-09-09: effic 89%, AHI 3, low sat 86% (< 89% only 1.2 minutes), PLMI 7.5/hr Unspecified pleural effusion 12/25/2006 Shortness of breath 10/23/2006 10/09/2010 Anal fissure 06/19/2006 10/09/2010 documented as of this encounter (statuses as of 04/23/2022) [facility] [place] History of Past illness Narrative* Problem Noted Date Resolved Date CKD (chronic kidney disease) stage 3, GFR 30-59 ml/min 09/20/2017 12/15/2018 COPD with exacerbation 08/07/2016 0 Skin mass 10/26/2010 05/13/2013 Overview: Lipoma, left forehead Benign localized hyperplasia of prostate with urinary obstruction and other lower urinary tract symptoms (LUTS)(600.21) 11/30/2009 10/09/2010 Elevated prostate specific antigen (PSA) 009 01/19/2018 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 01/31/2009 01/26/2019 Overview: Carotid US 1-09: > 50% on the R, < 50% on the L Unspecified Sleep Disturbance 01/31/2009 Overview: 03-09-09: effic 89%, AHI 3, low sat 86% (< 89% only 1.2 minutes), PLMI 7.5/hr Unspecified pleural effusion 12/25/2006 Shortness of breath 10/23/2006 10/09/2010 Anal fissure 06/19/2006 10/09/2010 documented as of this encounter (statuses as of 04/24/2022) [facility] [place] History of Past illness Narrative* Problem Noted Date Resolved Date CKD (chronic kidney disease) stage 3, GFR 30-59 ml/min 09/20/2017 12/15/2018 COPD with exacerbation 08/07/2016 0 Skin mass 10/26/2010 05/13/2013 Overview: Lipoma, left forehead Benign localized hyperplasia of prostate with urinary obstruction and other lower urinary tract symptoms (LUTS)(600.21) 11/30/2009 10/09/2010 Elevated prostate specific antigen (PSA) 009 01/19/2018 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 01/31/2009 01/26/2019 Overview: Carotid US 1-09: > 50% on the R, < 50% on the L Unspecified Sleep Disturbance 01/31/2009 Overview: 4-23-09: effic 89%, AHI 3, low sat 86% (< 89% only 1.2 minutes), PLMI 7.5/hr Unspecified pleural effusion 12/25/2006 Shortness of breath 10/23/2006 10/09/2010 Anal fissure 06/19/2006 10/09/2010 documented as of this encounter (statuses as of 04/24/2022) [facility] [place] History of Past illness Narrative* Problem Noted Date Resolved Date CKD (chronic kidney disease) stage 3, GFR 30-59 ml/min 09/20/2017 12/15/2018 COPD with exacerbation 08/07/2016 0 Skin mass 10/26/2010 05/13/2013 Overview: Lipoma, left forehead Benign localized hyperplasia of prostate with urinary obstruction and other lower urinary tract symptoms (LUTS)(600.21) 11/30/2009 10/09/2010 Elevated prostate specific antigen (PSA) 009 01/19/2018 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 01/31/2009 01/26/2019 Overview: Carotid US 1-09: > 50% on the R, < 50% on the L Unspecified Sleep Disturbance 01/31/2009 Overview: 03-09-09: effic 89%, AHI 3, low sat 86% (< 89% only 1.2 minutes), PLMI 7.5/hr Unspecified pleural effusion 12/25/2006 Shortness of breath 10/23/2006 10/09/2010 Anal fissure 06/19/2006 10/09/2010 documented as of this encounter (statuses as of 04/30/2022) [facility] [place] History of Past illness Narrative* Problem Noted Date Resolved Date CKD (chronic kidney disease) stage 3, GFR 30-59 ml/min 09/20/2017 12/15/2018 COPD with exacerbation 08/07/2016 0 Skin mass 10/26/2010 05/13/2013 Overview: Lipoma, left forehead Benign localized hyperplasia of prostate with urinary obstruction and other lower urinary tract symptoms (LUTS)(600.21) 11/30/2009 10/09/2010 Elevated prostate specific antigen (PSA) 009 01/19/2018 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 01/31/2009 01/26/2019 Overview: Carotid US 1-09: > 50% on the R, < 50% on the L Unspecified Sleep Disturbance 01/31/2009 Overview: 03-09-09: effic 89%, AHI 3, low sat 86% (< 89% only 1.2 minutes), PLMI 7.5/hr Unspecified pleural effusion 12/25/2006 Shortness of breath 10/23/2006 10/09/2010 Anal fissure 06/19/2006 10/09/2010 documented as of this encounter (statuses as of 05/08/2022) [facility] [place] History of Past illness Narrative* Problem Noted Date Resolved Date CKD (chronic kidney disease) stage 3, GFR 30-59 ml/min 09/20/2017 12/15/2018 COPD with exacerbation 08/07/2016 0 Skin mass 10/26/2010 05/13/2013 Overview: Lipoma, left forehead Benign localized hyperplasia of prostate with urinary obstruction and other lower urinary tract symptoms (LUTS)(600.21) 11/30/2009 10/09/2010 Elevated prostate specific antigen (PSA) 009 01/19/2018 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 01/31/2009 01/26/2019 Overview: Carotid US 1-09: > 50% on the R, < 50% on the L Unspecified Sleep Disturbance 01/31/2009 Overview: 03-09-09: effic 89%, AHI 3, low sat 86% (< 89% only 1.2 minutes), PLMI 7.5/hr Unspecified pleural effusion 12/25/2006 Shortness of breath 10/23/2006 10/09/2010 Anal fissure 06/19/2006 10/09/2010 documented as of this encounter (statuses as of 05/21/2022) [facility] [place] History of Past illness Narrative* Problem Noted Date Resolved Date CKD (chronic kidney disease) stage 3, GFR 30-59 ml/min 09/20/2017 12/15/2018 COPD with exacerbation 08/07/2016 0 Skin mass 10/26/2010 05/13/2013 Overview: Lipoma, left forehead Benign localized hyperplasia of prostate with urinary obstruction and other lower urinary tract symptoms (LUTS)(600.21) 11/30/2009 10/09/2010 Elevated prostate specific antigen (PSA) 009 01/19/2018 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 01/31/2009 01/26/2019 Overview: Carotid US 1-09: > 50% on the R, < 50% on the L Unspecified Sleep Disturbance 01/31/2009 Overview: 03-09-09: effic 89%, AHI 3, low sat 86% (< 89% only 1.2 minutes), PLMI 7.5/hr Unspecified pleural effusion 12/25/2006 Shortness of breath 10/23/2006 10/09/2010 Anal fissure 06/19/2006 10/09/2010 documented as of this encounter (statuses as of 05/22/2022) [facility] [place] History of Past illness Narrative* Problem Noted Date Resolved Date CKD (chronic kidney disease) stage 3, GFR 30-59 ml/min 09/20/2017 12/15/2018 COPD with exacerbation 08/07/2016 0 Skin mass 10/26/2010 05/13/2013 Overview: Lipoma, left forehead Benign localized hyperplasia of prostate with urinary obstruction and other lower urinary tract symptoms (LUTS)(600.21) 11/30/2009 10/09/2010 Elevated prostate specific antigen (PSA) 009 01/19/2018 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 01/31/2009 01/26/2019 Overview: Carotid US 1-09: > 50% on the R, < 50% on the L Unspecified Sleep Disturbance 01/31/2009 Overview: 03-09-09: effic 89%, AHI 3, low sat 86% (< 89% only 1.2 minutes), PLMI 7.5/hr Unspecified pleural effusion 12/25/2006 Shortness of breath 10/23/2006 10/09/2010 Anal fissure 06/19/2006 10/09/2010 documented as of this encounter (statuses as of 05/30/2022) [facility] [place] of Past illness Narrative* Problem Noted Date Resolved Date CKD (chronic kidney disease) stage 3, GFR 30-59 ml/min 09/20/2017 12/15/2018 COPD with exacerbation 08/07/2016 0 Skin mass 10/26/2010 05/13/2013 Overview: Lipoma, left forehead Benign localized hyperplasia of prostate with urinary obstruction and other lower urinary tract symptoms (LUTS)(600.21) 11/30/2009 10/09/2010 Elevated prostate specific antigen (PSA) 009 01/19/2018 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 01/31/2009 01/26/2019 Overview: Carotid US 1-09: > 50% on the R, < 50% on the L Unspecified Sleep Disturbance 01/31/2009 Overview: 03-09-09: effic 89%, AHI 3, low sat 86% (< 89% only 1.2 minutes), PLMI 7.5/hr Unspecified pleural effusion 12/25/2006 Shortness of breath 10/23/2006 10/09/2010 Anal fissure 06/19/2006 10/09/2010 documented as of this encounter (statuses as of 05/30/2022) [facility] [place] History of Past illness Narrative* Problem Noted Date Resolved Date CKD (chronic kidney disease) stage 3, GFR 30-59 ml/min 09/20/2017 12/15/2018 COPD with exacerbation 08/07/2016 0 Skin mass 10/26/2010 05/13/2013 Overview: Lipoma, left forehead Benign localized hyperplasia of prostate with urinary obstruction and other lower urinary tract symptoms (LUTS)(600.21) 11/30/2009 10/09/2010 Elevated prostate specific antigen (PSA) 009 01/19/2018 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 01/31/2009 01/26/2019 Overview: Carotid US 1-09: > 50% on the R, < 50% on the L Unspecified Sleep Disturbance 01/31/2009 Overview: 03-09-09: effic 89%, AHI 3, low sat 86% (< 89% only 1.2 minutes), PLMI 7.5/hr Unspecified pleural effusion 12/25/2006 Shortness of breath 10/23/2006 10/09/2010 Anal fissure 06/19/2006 10/09/2010 documented as of this encounter (statuses as of 06/12/2022) [facility] [place] History of Past illness Narrative* Problem Noted Date Resolved Date CKD (chronic kidney disease) stage 3, GFR 30-59 ml/min 09/20/2017 12/15/2018 COPD with exacerbation 08/07/2016 0 Skin mass 10/26/2010 05/13/2013 Overview: Lipoma, left forehead Benign localized hyperplasia of prostate with urinary obstruction and other lower urinary tract symptoms (LUTS)(600.21) 11/30/2009 10/09/2010 Elevated prostate specific antigen (PSA) 009 01/19/2018 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 01/31/2009 01/26/2019 Overview: Carotid US 1-09: > 50% on the R, < 50% on the L Unspecified Sleep Disturbance 01/31/2009 Overview: 03-09-09: effic 89%, AHI 3, low sat 86% (< 89% only 1.2 minutes), PLMI 7.5/hr Unspecified pleural effusion 12/25/2006 Shortness of breath 10/23/2006 10/09/2010 Anal fissure 06/19/2006 10/09/2010 documented as of this encounter (statuses as of 06/25/2022) [facility] [place] History of Past illness Narrative* Problem Noted Date Resolved Date CKD (chronic kidney disease) stage 3, GFR 30-59 ml/min 09/20/2017 12/15/2018 COPD with exacerbation 08/07/2016 0 Skin mass 10/26/2010 05/13/2013 Overview: Lipoma, left forehead Benign localized hyperplasia of prostate with urinary obstruction and other lower urinary tract symptoms (LUTS)(600.21) 11/30/2009 10/09/2010 Elevated prostate specific antigen (PSA) 009 01/19/2018 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 01/31/2009 01/26/2019 Overview: Carotid US 1-09: > 50% on the R, < 50% on the L Unspecified Sleep Disturbance 01/31/2009 Overview: 03-09-09: effic 89%, AHI 3, low sat 86% (< 89% only 1.2 minutes), PLMI 7.5/hr Unspecified pleural effusion 12/25/2006 Shortness of breath 10/23/2006 10/09/2010 Anal fissure 06/19/2006 10/09/2010 documented as of this encounter (statuses as of 07/29/2022) [facility] [place] History of Past illness Narrative* Problem Noted Date Resolved Date CKD (chronic kidney disease) stage 3, GFR 30-59 ml/min 09/20/2017 12/15/2018 COPD with exacerbation 08/07/2016 0 Skin mass 10/26/2010 05/13/2013 Overview: Lipoma, left forehead Benign localized hyperplasia of prostate with urinary obstruction and other lower urinary tract symptoms (LUTS)(600.21) 11/30/2009 10/09/2010 Elevated prostate specific antigen (PSA) 009 01/19/2018 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 01/31/2009 01/26/2019 Overview: Carotid US 1-09: > 50% on the R, < 50% on the L Unspecified Sleep Disturbance 01/31/2009 Overview: 03-09-09: effic 89%, AHI 3, low sat 86% (< 89% only 1.2 minutes), PLMI 7.5/hr Unspecified pleural effusion 12/25/2006 Shortness of breath 10/23/2006 10/09/2010 Anal fissure 06/19/2006 10/09/2010 documented as of this encounter (statuses as of 08/21/2022) [facility] [place] History of Past illness Narrative* Problem Noted Date Resolved Date CKD (chronic kidney disease) stage 3, GFR 30-59 ml/min 09/20/2017 12/15/2018 COPD with exacerbation 08/07/2016 0 Skin mass 10/26/2010 05/13/2013 Overview: Lipoma, left forehead Benign localized hyperplasia of prostate with urinary obstruction and other lower urinary tract symptoms (LUTS)(600.21) 11/30/2009 10/09/2010 Elevated prostate specific antigen (PSA) 009 01/19/2018 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 01/31/2009 01/26/2019 Overview: Carotid US 1-09: > 50% on the R, < 50% on the L Unspecified Sleep Disturbance 01/31/2009 Overview: 4-23-09: effic 89%, AHI 3, low sat 86% (< 89% only 1.2 minutes), PLMI 7.5/hr Unspecified pleural effusion 12/25/2006 Shortness of breath 10/23/2006 10/09/2010 Anal fissure 06/19/2006 10/09/2010 documented as of this encounter (statuses as of 08/30/2022) [facility] [place] History of Past illness Narrative* Problem Noted Date Resolved Date CKD (chronic kidney disease) stage 3, GFR 30-59 ml/min 09/20/2017 12/15/2018 COPD with exacerbation 08/07/2016 0 Skin mass 10/26/2010 05/13/2013 Overview: Lipoma, left forehead Benign localized hyperplasia of prostate with urinary obstruction and other lower urinary tract symptoms (LUTS)(600.21) 11/30/2009 10/09/2010 Elevated prostate specific antigen (PSA) 009 01/19/2018 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 01/31/2009 01/26/2019 Overview: Carotid US 1-09: > 50% on the R, < 50% on the L Unspecified Sleep Disturbance 01/31/2009 Overview: 03-09-09: effic 89%, AHI 3, low sat 86% (< 89% only 1.2 minutes), PLMI 7.5/hr Unspecified pleural effusion 12/25/2006 Shortness of breath 10/23/2006 10/09/2010 Anal fissure 06/19/2006 10/09/2010 documented as of this encounter (statuses as of 10/05/2022) [facility] [place]11-04-2017 History of Past illness Narrative* Problem Noted Date Resolved Date CKD (chronic kidney disease) stage 3, GFR 30-59 ml/min 09/20/2017 12/15/2018 COPD with exacerbation 08/07/2016 0 Skin mass 10/26/2010 05/13/2013 Overview: Lipoma, left forehead Benign localized hyperplasia of prostate with urinary obstruction and other lower urinary tract symptoms (LUTS)(600.21) 11/30/2009 10/09/2010 Elevated prostate specific antigen (PSA) 009 01/19/2018 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 01/31/2009 01/26/2019 Overview: Carotid US 1-09: > 50% on the R, < 50% on the L Unspecified Sleep Disturbance 01/31/2009 Overview: 03-09-09: effic 89%, AHI 3, low sat 86% (< 89% only 1.2 minutes), PLMI 7.5/hr Unspecified pleural effusion 12/25/2006 Shortness of breath 10/23/2006 10/09/2010 Anal fissure 06/19/2006 10/09/2010 documented as of this encounter (statuses as of 11/01/2022) [facility] [place]11-04-2017 History of Past illness Narrative* Problem Noted Date Resolved Date CKD (chronic kidney disease) stage 3, GFR 30-59 ml/min 09/20/2017 12/15/2018 COPD with exacerbation 08/07/2016 0 Skin mass 10/26/2010 05/13/2013 Overview: Lipoma, left forehead Benign localized hyperplasia of prostate with urinary obstruction and other lower urinary tract symptoms (LUTS)(600.21) 11/30/2009 10/09/2010 Elevated prostate specific antigen (PSA) 009 01/19/2018 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 01/31/2009 01/26/2019 Overview: Carotid US 1-09: > 50% on the R, < 50% on the L Unspecified Sleep Disturbance 01/31/2009 Overview: 4-23-09: effic 89%, AHI 3, low sat 86% (< 89% only 1.2 minutes), PLMI 7.5/hr Unspecified pleural effusion 12/25/2006 Shortness of breath 10/23/2006 10/09/2010 Anal fissure 06/19/2006 10/09/2010 documented as of this encounter (statuses as of 11/01/2022) [facility] [place]11-04-2017 History of Past illness Narrative* Problem Noted Date Resolved Date CKD (chronic kidney disease) stage 3, GFR 30-59 ml/min 09/20/2017 12/15/2018 COPD with exacerbation 08/07/2016 0 Skin mass 10/26/2010 05/13/2013 Overview: Lipoma, left forehead Benign localized hyperplasia of prostate with urinary obstruction and other lower urinary tract symptoms (LUTS)(600.21) 11/30/2009 10/09/2010 Elevated prostate specific antigen (PSA) 009 01/19/2018 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 01/31/2009 01/26/2019 Overview: Carotid US 1-09: > 50% on the R, < 50% on the L Unspecified Sleep Disturbance 01/31/2009 Overview: 03-09-09: effic 89%, AHI 3, low sat 86% (< 89% only 1.2 minutes), PLMI 7.5/hr Unspecified pleural effusion 12/25/2006 Shortness of breath 10/23/2006 10/09/2010 Anal fissure 06/19/2006 10/09/2010 documented as of this encounter (statuses as of 11/28/2022) [facility] [place]11-04-2017 History of Past illness Narrative* Problem Noted Date Resolved Date CKD (chronic kidney disease) stage 3, GFR 30-59 ml/min 09/20/2017 12/15/2018 COPD with exacerbation 08/07/2016 0 Skin mass 10/26/2010 05/13/2013 Overview: Lipoma, left forehead Benign localized hyperplasia of prostate with urinary obstruction and other lower urinary tract symptoms (LUTS)(600.21) 11/30/2009 10/09/2010 Elevated prostate specific antigen (PSA) 009 01/19/2018 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 01/31/2009 01/26/2019 Overview: Carotid US 1-09: > 50% on the R, < 50% on the L Unspecified Sleep Disturbance 01/31/2009 Overview: 03-09-09: effic 89%, AHI 3, low sat 86% (< 89% only 1.2 minutes), PLMI 7.5/hr Unspecified pleural effusion 12/25/2006 Shortness of breath 10/23/2006 10/09/2010 Anal fissure 06/19/2006 10/09/2010 documented as of this encounter (statuses as of 12/09/2022) [facility] [place]11-04-2017 History of Past illness Narrative* Problem Noted Date Resolved Date CKD (chronic kidney disease) stage 3, GFR 30-59 ml/min 09/20/2017 12/15/2018 COPD with exacerbation 08/07/2016 0 Skin mass 10/26/2010 05/13/2013 Overview: Lipoma, left forehead Benign localized hyperplasia of prostate with urinary obstruction and other lower urinary tract symptoms (LUTS)(600.21) 11/30/2009 10/09/2010 Elevated prostate specific antigen (PSA) 009 01/19/2018 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 01/31/2009 01/26/2019 Overview: Carotid US 1-09: > 50% on the R, < 50% on the L Unspecified Sleep Disturbance 01/31/2009 Overview: 03-09-: effic 89%, AHI 3, low sat 86% (< 89% only 1.2 minutes), PLMI 7.5/hr Unspecified pleural effusion 12/25/2006 Shortness of breath 10/23/2006 10/09/2010 Anal fissure 06/19/2006 10/09/2010 documented as of this encounter (statuses as of 01/16/2023) [facility] [place]11-04-2017 History of Past illness Narrative* Problem Noted Date Resolved Date CKD (chronic kidney disease) stage 3, GFR 30-59 ml/min 09/20/2017 12/15/2018 COPD with exacerbation 08/07/2016 0 Skin mass 10/26/2010 05/13/2013 Overview: Lipoma, left forehead Benign localized hyperplasia of prostate with urinary obstruction and other lower urinary tract symptoms (LUTS)(600.21) 11/30/2009 10/09/2010 Elevated prostate specific antigen (PSA) 009 01/19/2018 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 01/31/2009 01/26/2019 Overview: Carotid US 1-09: > 50% on the R, < 50% on the L Unspecified Sleep Disturbance 01/31/2009 Overview: 03-09-09: effic 89%, AHI 3, low sat 86% (< 89% only 1.2 minutes), PLMI 7.5/hr Unspecified pleural effusion 12/25/2006 Shortness of breath 10/23/2006 10/09/2010 Anal fissure 06/19/2006 10/09/2010 documented as of this encounter (statuses as of 02/07/2023) [facility] [place]-04-2017 History of Past illness Narrative* Problem Noted Date Resolved Date CKD (chronic kidney disease) stage 3, GFR 30-59 ml/min 09/20/2017 12/15/2018 COPD with exacerbation 08/07/2016 0 Skin mass 10/26/2010 05/13/2013 Overview: Lipoma, left forehead Benign localized hyperplasia of prostate with urinary obstruction and other lower urinary tract symptoms (LUTS)(600.21) 11/30/2009 10/09/2010 Elevated prostate specific antigen (PSA) 009 01/19/2018 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 01/31/2009 01/26/2019 Overview: Carotid US 1-09: > 50% on the R, < 50% on the L Unspecified Sleep Disturbance 01/31/2009 Overview: 03-09-09: effic 89%, AHI 3, low sat 86% (< 89% only 1.2 minutes), PLMI 7.5/hr Unspecified pleural effusion 12/25/2006 Shortness of breath 10/23/2006 10/09/2010 Anal fissure 06/19/2006 10/09/2010 documented as of this encounter (statuses as of 02/14/2023) [facility] [place]11-04-2017 History of Past illness Narrative* Problem Noted Date Resolved Date CKD (chronic kidney disease) stage 3, GFR 30-59 ml/min 09/20/2017 12/15/2018 COPD with exacerbation 08/07/2016 0 Skin mass 10/26/2010 05/13/2013 Overview: Lipoma, left forehead Benign localized hyperplasia of prostate with urinary obstruction and other lower urinary tract symptoms (LUTS)(600.21) 11/30/2009 10/09/2010 Elevated prostate specific antigen (PSA) 009 01/19/2018 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 01/31/2009 01/26/2019 Overview: Carotid US 1-09: > 50% on the R, < 50% on the L Unspecified Sleep Disturbance 01/31/2009 Overview: 03-09-09: effic 89%, AHI 3, low sat 86% (< 89% only 1.2 minutes), PLMI 7.5/hr Unspecified pleural effusion 12/25/2006 Shortness of breath 10/23/2006 10/09/2010 Anal fissure 06/19/2006 10/09/2010 documented as of this encounter (statuses as of 04/23/2023) [facility] [place]-04-2017 History of Past illness Narrative* Problem Noted Date Resolved Date CKD (chronic kidney disease) stage 3, GFR 30-59 ml/min 09/20/2017 12/15/2018 COPD with exacerbation 08/07/2016 0 Skin mass 10/26/2010 05/13/2013 Overview: Lipoma, left forehead Benign localized hyperplasia of prostate with urinary obstruction and other lower urinary tract symptoms (LUTS)(600.21) 11/30/2009 10/09/2010 Elevated prostate specific antigen (PSA) 009 01/19/2018 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 01/31/2009 01/26/2019 Overview: Carotid US 1-09: > 50% on the R, < 50% on the L Unspecified Sleep Disturbance 01/31/2009 Overview: 03-09-09: effic 89%, AHI 3, low sat 86% (< 89% only 1.2 minutes), PLMI 7.5/hr Unspecified pleural effusion 12/25/2006 Shortness of breath 10/23/2006 10/09/2010 Anal fissure 06/19/2006 10/09/2010 documented as of this encounter (statuses as of 05/08/2023) [facility] + Plan note Future Appointments Appointment Date:07/16/2022 01:15:00 PM Scheduled Provider: Location:[facility] Appointment Type:CV [facility] Future Scheduled Tests Laboratory* Basic Metabolic Panel 02/26/22 * Basic Metabolic Panel 03/26/22 * Basic Metabolic Panel 05/07/22 * Basic Metabolic Panel 06/04/22 * Basic Metabolic Panel 07/02/22 * Basic Metabolic Panel 07/30/22 * Complete Blood Count 02/26/22 * Complete Blood Count 03/26/22 * N-Terminal proBNP 02/26/22 * N-Terminal proBNP 03/26/22 * N-Terminal proBNP 05/07/22 * N-Terminal proBNP 06/04/22 * N-Terminal proBNP 07/02/22 * N-Terminal proBNP 07/30/22 [facility] Evaluation note* Diagnosis Type 2 diabetes mellitus with neurological manifestations, controlled (HCC)- Primary Type II or unspecified type diabetes mellitus with neurological manifestations, not stated as uncontrolled BPH with urinary obstruction Hypertrophy of prostate with urinary obstruction and other lower urinary tract symptoms (LUTS) Atrial fibrillation, unspecified type (HCC) documented in this encounter [facility] note* Diagnosis Essential hypertension Unspecified essential hypertension documented in this encounter [facility] note* Diagnosis Uncontrolled type 2 diabetes mellitus with hyperglycemia (HCC)- Primary documented in this encounter [facility] note* Diagnosis Uncontrolled type 2 diabetes mellitus with hyperglycemia (HCC) documented in this encounter [facility] note* Diagnosis Uncontrolled type 2 diabetes mellitus with hyperglycemia (HCC) documented in this encounter [facility] note* Diagnosis Uncontrolled type 2 diabetes mellitus with hyperglycemia (HCC)- Primary [facility] Diagnosis Type 2 diabetes mellitus with neurological manifestations, controlled (HCC)- Primary Type II or unspecified type diabetes mellitus with neurological manifestations, not stated as uncontrolled documented in this encounter [facility] note* Diagnosis Encounter for routine adult medical examination- Primary Atrial fibrillation, unspecified type (HCC) Type 2 diabetes mellitus with neurological manifestations, controlled (HCC) Type II or unspecified type diabetes mellitus with neurological manifestations, not stated as uncontrolled Essential hypertension Unspecified essential hypertension Atherosclerosis of [place] coronary artery of [place] heart without angina pectoris Obesity, Class III, 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) Morbid obesity CKD (chronic kidney disease) stage 4, GFR 15-29 ml/min (HCC) Chronic kidney disease, Stage IV (severe) Chronic diastolic CHF (congestive heart failure) (HCC) Chronic diastolic heart failure Recurrent epistaxis Epistaxis Wound of left lower extremity, sequela [facility]* Diagnosis Type 2 diabetes mellitus with neurological manifestations, controlled (HCC) Type II or unspecified type diabetes mellitus with neurological manifestations, not stated as uncontrolled documented in this encounter [facility] note* Diagnosis Type 2 diabetes mellitus with neurological manifestations, controlled (HCC)- Primary Type II or unspecified type diabetes mellitus with neurological manifestations, not stated as uncontrolled [facility]* Diagnosis Type 2 diabetes mellitus with neurological manifestations, controlled (HCC) Type II or unspecified type diabetes mellitus with neurological manifestations, not stated as uncontrolled [facility] Diagnosis Type 2 diabetes mellitus with neurological manifestations, controlled (HCC)- Primary Type II or unspecified type diabetes mellitus with neurological manifestations, not stated as uncontrolled documented in this encounter [facility] note* Diagnosis BPH with urinary obstruction Hypertrophy of prostate with urinary obstruction and other lower urinary tract symptoms (LUTS) documented in this encounter [facility] note* Diagnosis Medicare annual wellness visit, subsequent- Primary Routine general medical examination at a health care facility Type 2 diabetes mellitus with neurological manifestations, controlled (HCC) Type II or unspecified type diabetes mellitus with neurological manifestations, not stated as uncontrolled CKD (chronic kidney disease) stage 4, GFR 15-29 ml/min (HCC) Chronic kidney disease, Stage IV (severe) Morbid obesity (HCC) Morbid obesity Anemia, unspecified type Hyperlipidemia, unspecified hyperlipidemia type Essential hypertension Unspecified essential hypertension Encounter for immunization Need for other specified prophylactic vaccination against single bacterial disease documented in this encounter [facility] note* Diagnosis Hyperlipidemia, unspecified hyperlipidemia type- Primary Type 2 diabetes mellitus with neurological manifestations, controlled (HCC) Type II or unspecified type diabetes mellitus with neurological manifestations, not stated as uncontrolled Hypercalcemia [facility] noteNo assessment information availableWPaul[facility] Work Phone: Evaluation note* Diagnosis Skin infection- Primary Unspecified local infection of skin and subcutaneous tissue [facility] Diagnosis BPH with urinary obstruction Hypertrophy of prostate with urinary obstruction and other lower urinary tract symptoms (LUTS) Chronic diastolic CHF (congestive heart failure) (HCC) Chronic diastolic heart failure [facility] Diagnosis Type 2 diabetes mellitus with neurological manifestations, controlled (HCC) Type II or unspecified type diabetes mellitus with neurological manifestations, not stated as uncontrolled [facility] Diagnosis Type 2 diabetes mellitus with neurological manifestations, controlled (HCC)- Primary Type II or unspecified type diabetes mellitus with neurological manifestations, not stated as uncontrolled CKD (chronic kidney disease) stage 4, GFR 15-29 ml/min (HCC) Chronic kidney disease, Stage IV (severe) Chronic diastolic CHF (congestive heart failure) (HCC) Chronic diastolic heart failure Essential hypertension Unspecified essential hypertension Atrial fibrillation, unspecified type (HCC) Morbid obesity (HCC) Morbid obesity Encounter for immunization Need for other specified prophylactic vaccination against single bacterial disease [facility] Diagnosis Type 2 diabetes mellitus with neurological manifestations, controlled (HCC) Type II or unspecified type diabetes mellitus with neurological manifestations, not stated as uncontrolled [facility]* Diagnosis 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)- Primary [facility]* Diagnosis BPH with urinary obstruction Hypertrophy of prostate with urinary obstruction and other lower urinary tract symptoms (LUTS) [facility]* Diagnosis Groin pain, left [facility]* Diagnosis 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- Primary 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) Non-nephrotic range proteinuria Proteinuria Mixed hyperlipidemia [facility]* Diagnosis 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- Primary [facility]* Diagnosis Screening for genitourinary condition Screening for other and unspecified genitourinary condition 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 [facility]* Diagnosis Medicare annual wellness visit, subsequent- Primary Routine general medical examination at a health care facility Candidal intertrigo Candidiasis of skin and nails Type 2 diabetes mellitus with neurological manifestations, controlled (HCC) Type II or unspecified type diabetes mellitus with neurological manifestations, not stated as uncontrolled Essential hypertension Unspecified essential hypertension CKD (chronic kidney disease) stage 4, GFR 15-29 ml/min (HCC) Chronic kidney disease, Stage IV (severe) Screening for depression Encounter for screening examination for other mental health and behavioral disorders [facility] Diagnosis 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 [facility] Elevated serum creatinine- Primary Other nonspecific findings on examination of blood [facility]* Diagnosis HELDER on CPAP- Primary Obstructive sleep apnea (adult) (pediatric) Chronic diastolic CHF (congestive heart failure) (HCC) Chronic diastolic heart failure Type 2 diabetes mellitus with neurological manifestations, controlled (HCC) Type II or unspecified type diabetes mellitus with neurological manifestations, not stated as uncontrolled [facility]* Diagnosis Hypercalcemia- Primary [facility] Diagnosis Hypercalcemia- Primary [facility]* Diagnosis Hyperparathyroidism (HCC)- Primary Hyperparathyroidism, unspecified [facility] Diagnosis Elevated serum creatinine- Primary Other nonspecific findings on examination of blood [facility]* Diagnosis Primary hyperparathyroidism (HCC)- Primary Primary hyperparathyroidism [facility]* Diagnosis 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 Hypercalcemia Shortness of breath 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 [facility] Diagnosis 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) Monoclonal paraproteinemia Shortness of breath [facility] Diagnosis Elevated serum creatinine- Primary Other nonspecific findings on examination of blood [facility] Diagnosis Hyperparathyroidism (HCC) Hyperparathyroidism, unspecified [facility]* Diagnosis Primary hyperparathyroidism (HCC)- Primary Primary hyperparathyroidism Hyperparathyroidism (HCC) Hyperparathyroidism, unspecified Primary hyperparathyroidism (HCC) Primary hyperparathyroidism documented in this encounter [facility] note* Diagnosis Chronic cough Cough Primary hyperparathyroidism (HCC) Primary hyperparathyroidism documented in this encounter [facility] note* Diagnosis Abnormal chest CT- Primary Nonspecific (abnormal) findings on radiological and other examination of other intrathoracic organs Primary hyperparathyroidism (HCC) Primary hyperparathyroidism documented in this encounter [facility] note* Diagnosis Abnormal chest CT- Primary Nonspecific (abnormal) findings on radiological and other examination of other intrathoracic organs Current use of usp anticoagulation Long-term (current) use of anticoagulants Morbid obesity (HCC) Morbid obesity Stage 4 chronic kidney disease (HCC) MGUS (monoclonal gammopathy of unknown significance) Monoclonal paraproteinemia Primary hyperparathyroidism (HCC) Primary hyperparathyroidism documented in this encounter [facility] note* Diagnosis Pneumonia of both lower lobes due to infectious organism- Primary Primary hyperparathyroidism (HCC) Primary hyperparathyroidism documented in this encounter [facility] note* Diagnosis Pre-operative examination- Primary Preoperative examination, unspecified Chronic diastolic CHF (congestive heart failure) (HCC) Chronic diastolic heart failure Type 2 diabetes mellitus with neurological manifestations, controlled ([facility]) Type II or unspecified type diabetes mellitus with neurological manifestations, not stated as uncontrolled VHD (valvular heart disease) Endocarditis, valve unspecified, unspecified cause Atherosclerosis of [place] coronary artery of [place] heart without angina pectoris Atrial fibrillation, unspecified type (HCC) RBBB (right bundle branch block) Right bundle branch block Essential hypertension Unspecified essential hypertension Hyperlipidemia, unspecified hyperlipidemia type HELDER on CPAP Obstructive sleep apnea (adult) (pediatric) CKD (chronic kidney disease) stage 4, GFR 15-29 ml/min (HCC) Chronic kidney disease, Stage IV (severe) Abnormal chest CT Nonspecific (abnormal) findings on radiological and other examination of other intrathoracic organs MGUS (monoclonal gammopathy of unknown significance) Monoclonal paraproteinemia Anemia, unspecified type BPH with obstruction/lower urinary tract symptoms Hypertrophy of prostate with urinary obstruction and other lower urinary tract symptoms (LUTS) Primary hyperparathyroidism (HCC) Primary hyperparathyroidism * Assessment & Plan Note - Jodie Bowers APRN.HERBICIDE SPRAYER - 02/17/2025 8:49 AM EDT Associated Problem(s): BPH with obstruction/lower urinary tract symptoms Assessment: controlled on rx * Assessment & Plan Note - Jodie Bowers APRN.CNP - 02/17/2025 8:48 AM EDT Associated Problem(s): Anemia Assessment: following hem/onc Hemoglobin (g/dL) Date Value 02/15/2025 10.9 06/01/2021 15.1 Hematocrit (%) Date Value 02/15/2025 35.4 06/01/2021 47.4 WBC (k/uL) Date Value 02/15/2025 5.20 06/01/2021 7.07 * Assessment & Plan Note - Jodie Bowers APRN.CNP - 02/15/2025 12:37 PM EDT Associated Problem(s): MGUS (monoclonal gammopathy of unknown significance) Assessment: est with hem/onc * Assessment & Plan Note - Jodie Bowers APRN.CNP - 02/15/2025 12:36 PM EDT Associated Problem(s): Abnormal chest CT Assessment: following pulmonary, pending ?bronch, has pending referral for interventional pulmonaryfor consideration of bronch, but was decided he was too high risk and to tx with atb and repeat CT in March, to Dr. Lee for pulmonary optimization TE Dr. Lee 01/24/2025 I spoke with Jean Claude regarding recent consultation to interventional pulmonary regarding bronchoscopywith transbronchial biopsy. Patient is high risk and recommendations were for a course of antibiotics with repeat CT and potential intervention if infiltrates were persistent. After speaking with Jean Claude, he is deciding against any invasive intervention at this time. He is agreeable to a course of antibiotics with repeat CT of his chest. I will make arrangements for the CT and send [facility]. DATE OF EXAM: Dec 30 2024 11:13AM [facility] [id number] - CT CHEST WO IVCON / IMPRESSION: New groundglass and consolidative opacities predominantly in bilateral lower lobes, left greater than right, which may reflect inflammatory/infectious process with differential including pulmonary hemorrhage. Other entities such as pulmonary amyloidosis and pulmonary alveolar proteinosis also possible in the appropriate clinical setting. * Assessment & Plan Note - Jodie Bowers APRN.CNP - 02/15/2025 12:34 PM EDT Associated Problem(s): CKD (chronic kidney disease) stage 4, GFR 15-29 ml/min ([facility]) Assessment: following nephrology Creatinine Date Value Ref Range Status 02/15/2025 2.82 (H) 0.73 - 1.22 mg/dL Final 01/21/2025 2.76 (H) 0.73 - 1.22 mg/dL Final 01/04/2025 3.04 (H) 0.73 - 1.22 mg/dL Final 12/30/2024 3.46 (H) 0.73 - 1.22 mg/dL Final * Assessment & Plan Note - Jodie Bowers APRN.CNP - 02/15/2025 12:33 PM EDT Associated Problem(s): HELDER on CPAP Assessment: c/w CPAP * Assessment & Plan Note - Jodie Bowers APRN.CNP - 02/15/2025 12:33 PM EDT Associated Problem(s): Hyperlipemia Assessment: c/w statin * Assessment & Plan Note - Jodie Bowers APRN.CNP - 02/15/2025 12:32 PM EDT Associated Problem(s): Essential hypertension Assessment: controlled on rx Last 14 BP Last 14 Encounter BP Readings: Date: BP: 02/15/2025 116/72 01/21/2025 130/66 12/13/2024 109/58 12/13/2024 123/48 11/26/2024 120/50 11/05/2024 110/50 09/01/2024 124/60 07/28/2024 118/64 03/27/2024 121/76 10/13/2023 128/66 05/09/2023 111/51 06/12/2022 130/68 11/23/2021 144/78[bp true[ 07/05/2021 113/70 * Assessment & Plan Note - Jodie Bowers APRN.CNP - 02/15/2025 12:32 PM EDT Associated Problem(s): RBBB (right bundle branch block) Assessment: hx, asymptomatic * Assessment & Plan Note - Jodie Bowers APRN.CNP - 02/15/2025 12:32 PM EDT Associated Problem(s): Atrial fibrillation (HCC) Images from the original note were not included. Assessment: paroxymal atrial flutter, s/p cardioversion 2015 at [facility], rate controlled, daily Eliquis, reviewed to withhold 3 days prior to surgery, pt verbalized understanding. 11/23/2024 Dr. Strickland, Cardiology, Scanned into [employer] * Assessment & Plan Note - Jodie Bowers APRN.CNP - 02/15/2025 12:29 PM EDT Associated Problem(s): Coronary atherosclerosis Images from the original note were not included. Assessment: s/p CABG, followed by stents, c/w daily ASA 11/23/2024 Dr. Strickland, Cardiology, Scanned into epic * Assessment & Plan Note - Jodie Bowers APRN.CNP - 02/15/2025 12:27 PM EDT Associated Problem(s): VHD (valvular heart disease) Images from the original note were not included. 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, mild to moderate TVR, trivial AVR and mildAVS (dimensions below), and trivial PVR * Assessment & Plan Note - Jodie Bowers APRN.CNP - 02/15/2025 12:19 PM EDT Associated Problem(s): Type 2 diabetes mellitus with neurological manifestations, controlled (HCC) Assessment: IDDM and weekly injectable, w/ neuropathy Hemoglobin A1C (%) Date Value 07/28/2024 6.4 11/15/2021 9.3 Hemoglobin A1C (POCT) (%) Date Value 10/13/2023 6.7 * Assessment & Plan Note - Jodie Bowers APRN.CNP - 02/15/2025 9:17 AM EDT Associated Problem(s): Chronic diastolic CHF (congestive heart failure) (HCC) Images from the original note were not included. Assessment: daily Entresto, Grade 3 diastolic dysfunction, EF 60-65%, last cardiac OV on 11/23/2024 scanned into epic 11/2024 Echo Scanned into [facility]* Diagnosis Abnormal CT scan, chest- Primary Nonspecific (abnormal) findings on radiological and other examination of other intrathoracic organs Chronic cough Cough Dyspnea, unspecified type Pre-operative examination- Primary Preoperative examination, unspecified Chronic diastolic CHF (congestive heart failure) (HCC) Chronic diastolic heart failure Type 2 diabetes mellitus with neurological manifestations, controlled (HCC) Type II or unspecified type diabetes mellitus with neurological manifestations, not stated as uncontrolled VHD (valvular heart disease) Endocarditis, valve unspecified, unspecified cause Atherosclerosis of [place] coronary artery of [place] heart without angina pectoris Atrial fibrillation, unspecified type (HCC) RBBB (right bundle branch block) Right bundle branch block Essential hypertension Unspecified essential hypertension Hyperlipidemia, unspecified hyperlipidemia type HELDER on CPAP Obstructive sleep apnea (adult) (pediatric) CKD (chronic kidney disease) stage 4, GFR 15-29 ml/min ([facility]) Chronic kidney disease, Stage IV (severe) Abnormal chest CT Nonspecific (abnormal) findings on radiological and other examination of other intrathoracic organs MGUS (monoclonal gammopathy of unknown significance) Monoclonal paraproteinemia Anemia, unspecified type BPH with obstruction/lower urinary tract symptoms Hypertrophy of prostate with urinary obstruction and other lower urinary tract symptoms (LUTS) documented in this encounter [facility] note* Diagnosis Pre-operative examination- Primary Preoperative examination, unspecified Chronic diastolic CHF (congestive heart failure) (HCC) Chronic diastolic heart failure Type 2 diabetes mellitus with neurological manifestations, controlled (HCC) Type II or unspecified type diabetes mellitus with neurological manifestations, not stated as uncontrolled VHD (valvular heart disease) Endocarditis, valve unspecified, unspecified cause Atherosclerosis of [place] coronary artery of [place] heart without angina pectoris Atrial fibrillation, unspecified type (HCC) RBBB (right bundle branch block) Right bundle branch block Essential hypertension Unspecified essential hypertension Hyperlipidemia, unspecified hyperlipidemia type HELDER on CPAP Obstructive sleep apnea (adult) (pediatric) CKD (chronic kidney disease) stage 4, GFR 15-29 ml/min (HCC) Chronic kidney disease, Stage IV (severe) Abnormal chest CT Nonspecific (abnormal) findings on radiological and other examination of other intrathoracic organs MGUS (monoclonal gammopathy of unknown significance) Monoclonal paraproteinemia Anemia, unspecified type BPH with obstruction/lower urinary tract symptoms Hypertrophy of prostate with urinary obstruction and other lower urinary tract symptoms (LUTS) Jaw pain- Primary Atrial fibrillation, unspecified type (HCC) Type 2 diabetes mellitus with neurological manifestations, controlled ([facility]) Type II or unspecified type diabetes mellitus with neurological manifestations, not stated as uncontrolled Essential hypertension Unspecified essential hypertension [facility]* Diagnosis Pre-operative examination- Primary Preoperative examination, unspecified Chronic diastolic CHF (congestive heart failure) (HCC) Chronic diastolic heart failure Type 2 diabetes mellitus with neurological manifestations, controlled ([facility]) Type II or unspecified type diabetes mellitus with neurological manifestations, not stated as uncontrolled VHD (valvular heart disease) Endocarditis, valve unspecified, unspecified cause Atherosclerosis of [place] coronary artery of [place] heart without angina pectoris Atrial fibrillation, unspecified type ([facility]) RBBB (right bundle branch block) Right bundle branch block Essential hypertension Unspecified essential hypertension Hyperlipidemia, unspecified hyperlipidemia type HELDER on CPAP Obstructive sleep apnea (adult) (pediatric) CKD (chronic kidney disease) stage 4, GFR 15-29 ml/min (HCC) Chronic kidney disease, Stage IV (severe) Abnormal chest CT Nonspecific (abnormal) findings on radiological and other examination of other intrathoracic organs MGUS (monoclonal gammopathy of unknown significance) Monoclonal paraproteinemia Anemia, unspecified type BPH with obstruction/lower urinary tract symptoms Hypertrophy of prostate with urinary obstruction and other lower urinary tract symptoms (LUTS) Abnormal chest CT- Primary Nonspecific (abnormal) findings on radiological and other examination of other intrathoracic organs Pneumonia of left lower lobe due to infectious organism [facility]* Diagnosis Pre-operative examination- Primary Preoperative examination, unspecified Chronic diastolic CHF (congestive heart failure) (HCC) Chronic diastolic heart failure Type 2 diabetes mellitus with neurological manifestations, controlled (HCC) Type II or unspecified type diabetes mellitus with neurological manifestations, not stated as uncontrolled VHD (valvular heart disease) Endocarditis, valve unspecified, unspecified cause Atherosclerosis of [place] coronary artery of [place] heart without angina pectoris Atrial fibrillation, unspecified type (HCC) RBBB (right bundle branch block) Right bundle branch block Essential hypertension Unspecified essential hypertension Hyperlipidemia, unspecified hyperlipidemia type HELDER on CPAP Obstructive sleep apnea (adult) (pediatric) CKD (chronic kidney disease) stage 4, GFR 15-29 ml/min (HCC) Chronic kidney disease, Stage IV (severe) Abnormal chest CT Nonspecific (abnormal) findings on radiological and other examination of other intrathoracic organs MGUS (monoclonal gammopathy of unknown significance) Monoclonal paraproteinemia Anemia, unspecified type BPH with obstruction/lower urinary tract symptoms Hypertrophy of prostate with urinary obstruction and other lower urinary tract symptoms (LUTS) Pneumonia of both lower lobes due to infectious organism [facility]* Diagnosis Pre-operative examination- Primary Preoperative examination, unspecified Chronic diastolic CHF (congestive heart failure) (HCC) Chronic diastolic heart failure Type 2 diabetes mellitus with neurological manifestations, controlled ([facility]) Type II or unspecified type diabetes mellitus with neurological manifestations, not stated as uncontrolled VHD (valvular heart disease) Endocarditis, valve unspecified, unspecified cause Atherosclerosis of [place] coronary artery of [place] heart without angina pectoris Atrial fibrillation, unspecified type (HCC) RBBB (right bundle branch block) Right bundle branch block Essential hypertension Unspecified essential hypertension Hyperlipidemia, unspecified hyperlipidemia type HELDER on CPAP Obstructive sleep apnea (adult) (pediatric) CKD (chronic kidney disease) stage 4, GFR 15-29 ml/min (HCC) Chronic kidney disease, Stage IV (severe) Abnormal chest CT Nonspecific (abnormal) findings on radiological and other examination of other intrathoracic organs MGUS (monoclonal gammopathy of unknown significance) Monoclonal paraproteinemia Anemia, unspecified type BPH with obstruction/lower urinary tract symptoms Hypertrophy of prostate with urinary obstruction and other lower urinary tract symptoms (LUTS) BPH with urinary obstruction Hypertrophy of prostate with urinary obstruction and other lower urinary tract symptoms (LUTS) [facility]* Diagnosis Onset Date Resolution Status Admit Date Anemia acute July 21, 2025 11:45am CHF (congestive heart failure) acute July 21, 025 11:45am CKD (chronic kidney disease) chronic July 21, 2025 11:45am [facility] Work Phone: Evaluation note* Diagnosis Pre-operative examination- Primary Preoperative examination, unspecified Chronic diastolic CHF (congestive heart failure) (HCC) Chronic diastolic heart failure Type 2 diabetes mellitus with neurological manifestations, controlled (HCC) Type II or unspecified type diabetes mellitus with neurological manifestations, not stated as uncontrolled VHD (valvular heart disease) Endocarditis, valve unspecified, unspecified cause Atherosclerosis of [place] coronary artery of [place] heart without angina pectoris Atrial fibrillation, unspecified type (HCC) RBBB (right bundle branch block) Right bundle branch block Essential hypertension Unspecified essential hypertension Hyperlipidemia, unspecified hyperlipidemia type HELDER on CPAP Obstructive sleep apnea (adult) (pediatric) CKD (chronic kidney disease) stage 4, GFR 15-29 ml/min ([facility]) Chronic kidney disease, Stage IV (severe) Abnormal chest CT Nonspecific (abnormal) findings on radiological and other examination of other intrathoracic organs MGUS (monoclonal gammopathy of unknown significance) Monoclonal paraproteinemia Anemia, unspecified type BPH with obstruction/lower urinary tract symptoms Hypertrophy of prostate with urinary obstruction and other lower urinary tract symptoms (LUTS) Chronic diastolic CHF (congestive heart failure) ([facility]) Chronic diastolic heart failure documented in this encounter [facility] note* Diagnosis Pre-operative examination- Primary Preoperative examination, unspecified Chronic diastolic CHF (congestive heart failure) (HCC) Chronic diastolic heart failure Type 2 diabetes mellitus with neurological manifestations, controlled ([facility]) Type II or unspecified type diabetes mellitus with neurological manifestations, not stated as uncontrolled VHD (valvular heart disease) Endocarditis, valve unspecified, unspecified cause Atherosclerosis of [place] coronary artery of [place] heart without angina pectoris Atrial fibrillation, unspecified type (HCC) RBBB (right bundle branch block) Right bundle branch block Essential hypertension Unspecified essential hypertension Hyperlipidemia, unspecified hyperlipidemia type HELDER on CPAP Obstructive sleep apnea (adult) (pediatric) CKD (chronic kidney disease) stage 4, GFR 15-29 ml/min ([facility]) Chronic kidney disease, Stage IV (severe) Abnormal chest CT Nonspecific (abnormal) findings on radiological and other examination of other intrathoracic organs MGUS (monoclonal gammopathy of unknown significance) Monoclonal paraproteinemia Anemia, unspecified type BPH with obstruction/lower urinary tract symptoms Hypertrophy of prostate with urinary obstruction and other lower urinary tract symptoms (LUTS) Chronic diastolic CHF (congestive heart failure) ([facility])- Primary Chronic diastolic heart failure Encounter for immunization Need for other specified prophylactic vaccination against single bacterial disease CKD (chronic kidney disease) stage 4, GFR 15-29 ml/min (HCC) Chronic kidney disease, Stage IV (severe) 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) Type 2 diabetes mellitus with neurological manifestations, controlled (HCC) Type II or unspecified type diabetes mellitus with neurological manifestations, not stated as uncontrolled Atrial fibrillation, unspecified type (HCC) Morbid obesity with BMI of 45.0-49.9, adult (HCC) Morbid obesity Hyperlipidemia, unspecified hyperlipidemia type Thrombocytopenia Thrombocytopenia, unspecified Venous stasis ulcer of other part of left lower leg limited to breakdown of skin without varicose veins (HCC) Pressure injury of left buttock, stage 1 documented [facility] encounter [facility] Author Nathaniel Beverly [facility] Note Date/Time July 21, 2025 12:06pm [facility] Medical Records Department [address] [place] [address] H&P Exam - Hospitalist 07/21/25 1159 MR#: [id number] Acct: [id number] Name: FEDERICO HU Rep #:[id number] : [id number] From: Nathaniel Beverly MD PCP: Dr. Nithin Acevedo MD Status:A DM IN Location: [place] [address] HPI - General General Date of Admission: 07/21/25 Date of Service: 07/21/25 Chief Complaint: Shortness of breath HPI Narrative FEDERICO HU, is a 89 M with past medical history second for paroxysmal atrialfibrillation, diabetes mellitus type 2, chronic kidney disease who presented to the emergency department with shortness of breath. Per patient symptoms have been ongoing for the past couple of weeks. He also did notice increasing weightgain as well as swelling involving both lower extremities. Patient also did admit to easy fatigability and inability to lay flat he therefore had to lay in his recliner. Elected to present to the emergency department due to worsening symptoms. Workup was consistent with acute congestive heart failure admitted toa monitored bed for further management [facility] Medical History Afib CAD (coronary artery disease) CHF (congestive heart failure) Diabetes Home Medications ?Medication ?Instructions ?Recorded ?Last Taken ?Type Lovastatin [Mevacor] 40 mg PO QHS CHOLESTEROL 08/ 16/16 08/25/16 History doxazosin 2 mg tablet 2 mg PO QHS PROSTATE 6 07/11/16 History multivitamin with folic acid 400 1 tab PO DAILY SUPPLE MENT 07/02/16 07/11/16 History mcg tablet (Thera) nitroglycerin 0.4 mg sublingual 0.4 mg sublingual PRN PRN CHEST 04/01/18 Unknown History tablet (Nitrostat) PAIN spironolactone 25 mg tablet 25 mg PO QHS BP 04/01/18 U nknown History albuterol sulfate 90 mcg/actuation 2 puff inhalation Q 4H PRN PRN 01/07/19 Unknown Rx aerosol inhaler Wheezing ##1 vitamin E (dl, acetate) 90 mg (200 200 unit PO DAILY 0 01/07/19 Unknown History unit) capsule apixaban 2.5 mg tablet (Eliquis) 2.5 mg PO BID 4 Unknown History dapagliflozin propanediol 5 mg 5 mg PO QHS 03/27/24 Un known History tablet (Farxiga) ferrous sulfate 137 mg (45 mg 137 mg PO DAILY 03/27/24 Unknown History iron) tablet,extended release insulin degludec 100 unit/mL 40 unit subcut DAILY 03/17 12/10 Unknown History subcutaneous solution (Tresiba U-100 Insulin) atorvastatin 40 mg tablet 40 mg PO DAILY 07/21/25 Unkn own History empagliflozin 10 mg tablet 10 mg PO DAILY 07/21/25 Unk nown History (Jardiance) furosemide 40 mg tablet 40 mg PO BID 07/21/25 Unknow n History sacubitril 97 mg-valsartan 103 mg 1 tab PO BID 5 Unknown History tablet (Entresto) Allergy/AdvReac Type Severity Reaction Status Date / Time finasteride (From [employer]) Allergy Hives Verified 07/21/25 10:26 Social History (Updated 07/21/25 @ 10:37 by Irma Hensley) household members: family Smoking Status: Former smoker ROS ROS Narrative GENERAL: denies fever, chills, night sweats, weight loss, anorexia HEENT: denies headache, sinus congestion, or drainage, dysphagia RESPIRATORY: cough, shortness of breath, dyspnea on exertion CARDIAC: orthopnea, PND GASTROINTESTINAL: denies abdominal pain, nausea, GENITOURINARY: denies dysuria, urgency, frequency, EXTREMITY: denies swelling MUSCULOSKELETAL: denies current joint pain or tenderness NEUROLOGIC: denies focal numbness, weakness, tingling HEMATOLOGIC: denies easy bruising and/or hemorrhage INTEGUMENT: denies rashes PSYCHIATRIC: denies suicidal or homicidal ideation Vital Signs Vital Signs Vital Signs: 07/21/25 10:26 07/21/25 10:42 07/21/25 10:44 Temperature 97.8 F Temperature Source Oral Pulse Rate 76 Respiratory Rate 20 H Respiratory Effort Short of Breath Respiratory Depth Normal Respiratory Pattern Normal Blood Pressure 123/41 H Blood Pressure Mean 68 Pulse Ox 96 95 Oxygen Delivery Method Room Air Room Air Room Air 07/21/25 11:30 07/21/25 11:45 07/21/25 11:57 Temperature 97.9 F Temperature Source Pulse Rate 64 58 L 58 L Respiratory Rate 18 17 17 Respiratory Effort Respiratory Depth Respiratory Pattern Blood Pressure 103/69 99/51 L 99/51 L Blood Pressure Mean 80 62 67 Pulse Ox 92 95 95 Oxygen Delivery Method Weight Weight: 167 kg Body Mass Index (BMI) 51.3 Physical Exam Narrative GENERAL: cooperative HEENT: Atraumatic; normocephalic EYES; Anicteric, Normal Conjunctiva NECK; supple, normal thyroid, RESPIRATORY: Diminished to auscultation CARDIOVASCULAR: Irregular S1-S2 GI: soft, normoactive bowel sounds, : No Renal angle tenderness; EXTREMITIES: 2+ pitting edema MUSCULOSKELETAL: no muscle wasting NEURO: Awake; no lateralizing signs. SKIN: Bilateral lower extremity stasis dermatitis PSYCH; Flat affect Results Lab / Micro Data 07/21/25 10:47 07/21/25 10:47 Labs: Laboratory Results - last 24 hr 07/21/25 10:47: WBC 5.2, RBC 3.32 L, Hgb 8.7 L, Hct 29.3 L, MCV 88.3, MCH 26.2 L, MCHC 29.7 L, RDW Std Deviation 48.8 H, RDW Coeff of Jazmin 15.0 H, Plt Count 120 L, MPV 12.2 H, Immature Gran % (Auto) 0.600, Neut % (Auto) 74.0 H, Lymph % (Auto) 12.7 L, [place] % (Auto) 9.0, Eos % (Auto) 2.9, Baso % (Auto) 0.8, Absolute Neuts (auto) 3.9, Absolute Lymphs (auto) 0.66 L, Nucleated RBC % 0, PT 16.8 H, INR 1.3, Sodium 142, Potassium 4.6, Chloride 106, Carbon Dioxide 22.6, Anion Gap 14, BUN 63 H, Creatinine 3.12 H, Estim Creat Clear Calc 25.92 L, Est GFR (MDRD) Non-Af 18 L, BUN/Creatinine Ratio 20.0, Glucose 166 H, Calcium 10.7, Troponin T High Sens 91 H*, NT pro BNP II 3236 H Imaging Radiology Impression Chest X-Ray 07/21/25 11:10 IMPRESSION: Mild cardiac enlargement. - Perihilar and basal pulmonary opacities, differential and recommendations as discussed above. Reading Location: [id number] Assessment & Plan Assessment/Plan (1) CKD (chronic kidney disease): (2) Anemia: (3) CHF (congestive heart failure): PLAN: Patient is an 89-year-old gentleman who presented with progressive shortness of breath 1. Acute congestive heart failure (unspecified) ? Patient has been admitted to a monitored bed as part of his evaluation ordered 2D echo serial cardiac enzymes as well as TSH. Patient was also placed on fluid restriction strict input and output Daily weight low-sodium diet as well as diuretic therapy with furosemide. Also placed on supplemental oxygen titrated to keep saturation greater than 90 2. Chronic kidney disease ?Stage IV ? Current baseline creatinine unknown patient last creatinine on the EMR was 2.02 creatinine on admission was 3.12. Ordered renal duplex for further eval. Consult placed to nephrology 3. Anemia ? Secondary to chronic disorder, ordered iron studies and subsequent monitoring H&H and transfuse if patient becomes symptomatic or hemoglobin falls below 7 4. Diabetes mellitus type 2 ? Patient is on long-acting insulin at home. Patient has been experiencing hypoglycemic episodes held the long-acting insulin placed on Accu-Cheks ACHS with sliding scale coverage 4. Paroxysmal A-fib/flutter ? Rate controlled on systemic anticoagulation with apixaban did continue 5. Class III obesity with a BMI of 51.3 ? Complicating care weight loss advised 6. Dyslipidemia ?Patient is on statin therapy, continued at home dose 7. Thrombocytopenia ? Patient has some chronicity to his low platelet count will monitor with daily CBC with differential 8. DVT prophylaxis ? Already anticoagulated with apixaban will continue Time spent in the patient's overall evaluation,decision-making process, review of diagnostic data, adjustment of management, discussion with other providers, nursing nursing and ancillary staff involved in patient's care documentation, 75 Minutes Advance planning; did discuss with the patient regarding advanced directives as well as CODE STATUS. Did explain the various scenarios involved ( FULL CODE, DNR CCA, DNR CCA with no intubation, and DNR CC and what each meant) patient elected to be DNR CCA no intubation. Order was placed. Time spent on discussion 16 minutes. Charges/Coding Multi Select Codes Visit Charges Visit Charges: 35775 Init [facility] Hospitalists' Procedures Procedures: 25191 Advncd Care Plan 30 Min 07/21/25 1206 <Electronically signed by Nathaniel Beverly MD> Cosigner Signature (if applicable): CC: Dr. Nathaniel Beverly MD; Dr. Nithin Acevedo MD~ Signed [facility] Work Phone: Hospital course Narrative No data available for this section [facility] Discharge instructions No data available for this section [facility] Discharge instructions Additional Instructions Please follow-up with your PCP, take antibiotics as directed. 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 Procedures US KIDNEY/BLADDER US KIDNEY/BLADDER US RETROPERITONEAL REAL TIME W/IMAGE COMPLETE Velia Richter DO [address] [place] [address] [place] [address] Referral ID Status Reason Start Date Expiration Date Visits Requested Visits Authorized [id number] New Request Auto-Generat ed Referral 10/01/2025 1 1 [facility] for referral (narrative)* Diagnostic Procedure Only (Routine) - New Request Specialty Diagnoses / Procedures Referred By Denver t Referred To Contact MOLECULAR & FUNCTIONAL IMAGING Diagnoses Hyperparathyroidism (HCC) Procedures NM PARATHYROID W SPECT/CT PARATHYROID IMAGING W/TOMOGRAPHIC SPECT & CT Kristin Guevara MD [address] [id number] Molecular & Functional Imaging [address] [place] [address] Referral ID Status Reason Start Date Expiration Date Visits Requested Visits Authorized [id number] New Request Auto-Generat ed Referral 12/14/2024 01/13/2026 1 1 [facility] for referral (narrative)No reason for referral [facility] Narrative* Diagnostic Procedure Only (Routine) - Closed Specialty Diagnoses / Procedures Referred By Denver vance Referred To Contact MOLECULAR & FUNCTIONAL IMAGING Diagnoses Hyperparathyroidism (HCC) Procedures NM PARATHYROID W SPECT/CT PARATHYROID IMAGING W/TOMOGRAPHIC SPECT & CT Kristin Guevara MD [address] [place] [address] Phone: tel: fax: Molecular Imaging [address] [place] [address] Phone: tel: Referral ID Status Reason Start Date Expiration Date V isits Requested Visits Authorized [id number] Closed Auto-Generate d Referral 12/14/2024 01/13/2026 1 1 [facility] for visit Narrative* MRI/CT (Routine) - Closed Specialty Diagnoses / Procedures Referred By Denver t Referred To Contact CT IMAGING Diagnoses Pneumonia of both lower lobes due to infectious organism Procedures CT CHEST WO IVCON DIAGNOSTIC COMPUTED TOMOGRAPHY THORAX W/O Viet Heart MD [address] [place] [address] Phone: tel: fax: CT IMAGING [id number] Referral ID Status Reason Start Date Expiration Date V isits Requested Visits Authorized [id number] Closed Auto-Generate d Referral 03/28/2025 02/23/2026 1 1 [facility] [place] Summary Purpose Family History No Family History Records Found Relationship Condition Age at Onset Recorded Date/T ela Unknown Family History?- Unknown August 6:52am Family History?- Unknown April 16, 7:38am Advance Directives No Advanced Directives Records Found Advance Directive Response Recorded Date/ Time Advance Directives Yes August 20, 2016 9:56am Living Will Yes March 27, 2024 1 2:33pm Power of Africana Studies Professor Yes March 27, 2024 12:33pm Name of Medical Power of Africana Studies Professor Aliza Hu March 27, 2024 12:33pm Advance Directive Response Recorded Date/ Time Do you have a Healthcare Power of Africana Studies Professor? No July 21, 2025 10:42am Advance Directives Yes August 20, 2016 9:56am Advance Directive Response Recorded Date/ Time Do you have a Healthcare Pow er of Africana Studies Professor? Yes July 21, 2025 12:32pm Name of Medical Power of Africana Studies Professor Aliza Hu- w sade July 21, 2025 12:32pm Advance Directives Yes August 20, 2016 9:56am Reason for Referral Specialty Diagnoses / Procedures Referred By Denver vance Referred To Contact Diagnoses MGUS (monoclonal gammopathy of unknown significance) Procedures [facility] FOLLOW-UP OFFICE/OUTPATIENT [facility] HIGH MDM 60 MINUTES Homer [place] [address] [address] [id number] Referral ID Status Reason Start Date Expiration Date Visits Requested Visits Authorized [id number] Authorized PCP Requested Referral 12/22/2024 12/22/2025 1 1 Specialty Diagnoses / Procedures Referred By Denver vance Referred To Contact CT IMAGING Diagnoses 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) Shortness of breath Procedures CT CHEST WO IVCON DIAGNOSTIC COMPUTED TOMOGRAPHY THORAX W/O CNTRST Homer Carpio APRN.RAJWINDER[place] [id number] [place] [address] Referral ID Status Reason Start Date Expiration Date Visits Requested Visits Authorized [id number] Authorized Auto-Generat ed Referral 12/21/2024 01/19/2026 1 1 Specialty Diagnoses / Procedures Referred By [place] vance Referred To Contact XR IMAGING Diagnoses 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) Procedures XR BONE SURVEY ROUTINE RADIOLOGIC EXAMINATION OSSEOUS SURVEY COMPL Homer Carpio, PARK WORKER SUPERVISOR.RAJWINDER, PhD [address] [place] [address] [place] [address] Referral ID Status Reason Start Date Expiration Date Visits Requested Visits Authorized [id number] New Request Auto-Generat ed Referral 12/13/2024 01/12/2026 1 1 Specialty Diagnoses / Procedures Referred By Denver vance Referred To Contact Nephrology Diagnoses 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) Procedures CONSULT TO NEPHROLOGY OFFICE/OUTPATIENT [facility] 60 MINUTES Katherin Mckinnon, PARK WORKER SUPERVISOR.HERBICIDE SPRAYER [address] [place] [address] Referral ID Status Reason Start Date Expiration Date Visits Requested Visits Authorized [id number] Authorized PCP Requested Referral 08/10/2024 08/10/2025 1 1 Specialty Diagnoses / Procedures Referred By [place] vance Referred To Contact Ent - Otolaryngology Diagnoses Recurrent epistaxis Procedures CONSULT TO ENT Nithin Acevedo MD [address] [place] [address] Referral ID Status Reason Start Date Expiration Date Visits Requested Visits Authorized [id number] Ref Not Required PCP Requested Referral 06/12/2022 06/12/2023 1 1 Chief Complaint and Reason for Visit Chief Complaint ABSCESS Chief Complaint Admit Date CHF July 21, 2025 11:45am Congestive heart failure July 21, 2025 11:59am Reason for Visit Admit Date Anemia July 21, 2025 11:45am CHF (congestive heart failure) July 21, 2025 11:45am CKD (chronic kidney disease) July 212024 11:45am Chief Complaint Admit Date CHF July 21, 2025 11:45am Congestive heart failure July 21, 2025 11:59am Congestive heart failure July 22, 2025 8:38am Congestive heart failure July 23, 2025 7:46am Additional Source Comments (unrecognized sect ion and content) No Status Records FoundNo Status Records FoundNo Status Records FoundNo Status Records FoundNo Status Records FoundNo Status Records FoundNo Status Records Found INFORMATION SOURCE (unrecogn ized section and content) DATE [facility] DATE CREATED AUTHOR AUTHOR'S ORGANIZ ATION 05/06/2018 [place] [facility] DATE CREATED AUTHOR AUTHOR'S ORGANIZ ATION [facility]/12[facility]2018 [facility] DATE CREATED AUTHOR AUTHOR'S ORGANIZ ATION 08/19/2022 [facility] DATE CREATED AUTHOR AUTHOR'S ORGANIZ ATION 08/11/2025 [facility] DATE CREATED AUTHOR AUTHOR'S ORGANIZ ATION 09/18/2025 [facility] DATE CREATED AUTHOR AUTHOR'S ORGANIZ ATION 09/21/2025 [facility] Source Comments (unrecognize d section and content) In the event this informatio n is protected by the Federal Confidentiality of Alcohol and Drug Abuse Patient Records regulations: The Federal rules restrict any use of the information to criminally investigate or prosecute any alcohol or drug abuse patient.[facility] [place] the event this information is protected by the Federal Confidentiality of Alcohol and Drug Abuse Patient Records regulations: The Federal rules restrict any use of the information to criminally investigate or prosecute any alcohol or drug abuse patient.[facility] [place] the event this information is protected by the Federal Confidentiality of Alcohol and Drug Abuse Patient Records regulations: The Federal rules restrict any use of the information to criminally investigate or prosecute any alcohol or drug abuse patient.[facility] [place]In the event this information is protected by the Federal Confidentiality of Alcohol and Drug Abuse Patient Records regulations: The Federal rules restrict any use of the information to criminally investigate or prosecute any alcohol or drug abuse patient.[facility] [place] the event this information is protected by the Federal Confidentiality of Alcohol and Drug Abuse Patient Records regulations: The Federal rules restrict any use of the information to criminally investigate or prosecute any alcohol or drug abuse patient.[facility] [place] the event this information is protected by the Federal Confidentiality of Alcohol and Drug Abuse Patient Records regulations: The Federal rules restrict any use of the information to criminally investigate or prosecute any alcohol or drug abuse patient.[facility] [place]In the event this information is protected by the Federal Confidentiality of Alcohol and Drug Abuse Patient Records regulations: The Federal rules restrict any use of the information to criminally investigate or prosecute any alcohol or drug abuse patient.[facility] [place]In the event this information is protected by the Federal Confidentiality of Alcohol and Drug Abuse Patient Records regulations: The Federal rules restrict any use of the information to criminally investigate or prosecute any alcohol or drug abuse patient.[facility] [place]In the event this information is protected by the Federal Confidentiality of Alcohol and Drug Abuse Patient Records regulations: The Federal rules restrict any use of the information to criminally investigate or prosecute any alcohol or drug abuse patient.[facility] [place]In the event this information is protected by the Federal Confidentiality of Alcohol and Drug Abuse Patient Records regulations: The Federal rules restrict any use of the information to criminally investigate or prosecute any alcohol or drug abuse patient.[facility] [place]In the event this information is protected by the Federal Confidentiality of Alcohol and Drug Abuse Patient Records regulations: The Federal rules restrict any use of the information to criminally investigate or prosecute any alcohol or drug abuse patient.[facility] [place]In the event this information is protected by the Federal Confidentiality of Alcohol and Drug Abuse Patient Records regulations: The Federal rules restrict any use of the information to criminally investigate or prosecute any alcohol or drug abuse patient.[facility] [place]In the event this information is protected by the Federal Confidentiality of Alcohol and Drug Abuse Patient Records regulations: The Federal rules restrict any use of the information to criminally investigate or prosecute any alcohol or drug abuse patient.[facility] [place]In the event this information is protected by the Federal Confidentiality of Alcohol and Drug Abuse Patient Records regulations: The Federal rules restrict any use of the information to criminally investigate or prosecute any alcohol or drug abuse patient.[facility] [place]In the event this information is protected by the Federal Confidentiality of Alcohol and Drug Abuse Patient Records regulations: The Federal rules restrict any use of the information to criminally investigate or prosecute any alcohol or drug abuse patient.[facility] [place]In the event this information is protected by the Federal Confidentiality of Alcohol and Drug Abuse Patient Records regulations: The Federal rules restrict any use of the information to criminally investigate or prosecute any alcohol or drug abuse patient.[facility] OhioIn the event this information is protected by the Federal Confidentiality of Alcohol and Drug Abuse Patient Records regulations: The Federal rules restrict any use of the information to criminally investigate or prosecute any alcohol or drug abuse patient.[facility] OhioIn the event this information is protected by the Federal Confidentiality of Alcohol and Drug Abuse Patient Records regulations: The Federal rules restrict any use of the information to criminally investigate or prosecute any alcohol or drug abuse patient.[facility] [place]In the event this information is protected by the Federal Confidentiality of Alcohol and Drug Abuse Patient Records regulations: The Federal rules restrict any use of the information to criminally investigate or prosecute any alcohol or drug abuse patient.[facility] [place]In the event this information is protected by the Federal Confidentiality of Alcohol and Drug Abuse Patient Records regulations: The Federal rules restrict any use of the information to criminally investigate or prosecute any alcohol or drug abuse patient.[facility] [place]In the event this information is protected by the Federal Confidentiality of Alcohol and Drug Abuse Patient Records regulations: The Federal rules restrict any use of the information to criminally investigate or prosecute any alcohol or drug abuse patient.[facility] [place]In the event this information is protected by the Federal Confidentiality of Alcohol and Drug Abuse Patient Records regulations: The Federal rules restrict any use of the information to criminally investigate or prosecute any alcohol or drug abuse patient.[facility] [place]In the event this information is protected by the Federal Confidentiality of Alcohol and Drug Abuse Patient Records regulations: The Federal rules restrict any use of the information to criminally investigate or prosecute any alcohol or drug abuse patient.[facility] OhioIn the event this information is protected by the Federal Confidentiality of Alcohol and Drug Abuse Patient Records regulations: The Federal rules restrict any use of the information to criminally investigate or prosecute any alcohol or drug abuse patient.[facility] [place]In the event this information is protected by the Federal Confidentiality of Alcohol and Drug Abuse Patient Records regulations: The Federal rules restrict any use of the information to criminally investigate or prosecute any alcohol or drug abuse patient.[facility] [place]In the event this information is protected by the Federal Confidentiality of Alcohol and Drug Abuse Patient Records regulations: The Federal rules restrict any use of the information to criminally investigate or prosecute any alcohol or drug abuse patient.[facility] OhioIn the event this information is protected by the Federal Confidentiality of Alcohol and Drug Abuse Patient Records regulations: The Federal rules restrict any use of the information to criminally investigate or prosecute any alcohol or drug abuse patient.[facility] [place]In the event this information is protected by the Federal Confidentiality of Alcohol and Drug Abuse Patient Records regulations: The Federal rules restrict any use of the information to criminally investigate or prosecute any alcohol or drug abuse patient.[facility] [place]In the event this information is protected by the Federal Confidentiality of Alcohol and Drug Abuse Patient Records regulations: The Federal rules restrict any use of the information to criminally investigate or prosecute any alcohol or drug abuse patient.[facility] [place]In the event this information is protected by the Federal Confidentiality of Alcohol and Drug Abuse Patient Records regulations: The Federal rules restrict any use of the information to criminally investigate or prosecute any alcohol or drug abuse patient.[facility] [place]In the event this information is protected by the Federal Confidentiality of Alcohol and Drug Abuse Patient Records regulations: The Federal rules restrict any use of the information to criminally investigate or prosecute any alcohol or drug abuse patient.[facility] [place]In the event this information is protected by the Federal Confidentiality of Alcohol and Drug Abuse Patient Records regulations: The Federal rules restrict any use of the information to criminally investigate or prosecute any alcohol or drug abuse patient.[facility] [place]In the event this information is protected by the Federal Confidentiality of Alcohol and Drug Abuse Patient Records regulations: The Federal rules restrict any use of the information to criminally investigate or prosecute any alcohol or drug abuse patient.[facility] [place]In the event this information is protected by the Federal Confidentiality of Alcohol and Drug Abuse Patient Records regulations: The Federal rules restrict any use of the information to criminally investigate or prosecute any alcohol or drug abuse patient.[facility] [place]In the event this information is protected by the Federal Confidentiality of Alcohol and Drug Abuse Patient Records regulations: The Federal rules restrict any use of the information to criminally investigate or prosecute any alcohol or drug abuse patient.[facility] [place]In the event this information is protected by the Federal Confidentiality of Alcohol and Drug Abuse Patient Records regulations: The Federal rules restrict any use of the information to criminally investigate or prosecute any alcohol or drug abuse patient.[facility] OhioIn the event this information is protected by the Federal Confidentiality of Alcohol and Drug Abuse Patient Records regulations: The Federal rules restrict any use of the information to criminally investigate or prosecute any alcohol or drug abuse patient.[facility] [place]In the event this information is protected by the Federal Confidentiality of Alcohol and Drug Abuse Patient Records regulations: The Federal rules restrict any use of the information to criminally investigate or prosecute any alcohol or drug abuse patient.[facility] OhioIn the event this information is protected by the Federal Confidentiality of Alcohol and Drug Abuse Patient Records regulations: The Federal rules restrict any use of the information to criminally investigate or prosecute any alcohol or drug abuse patient.[facility] OhioIn the event this information is protected by the Federal Confidentiality of Alcohol and Drug Abuse Patient Records regulations: The Federal rules restrict any use of the information to criminally investigate or prosecute any alcohol or drug abuse patient.[facility] OhioIn the event this information is protected by the Federal Confidentiality of Alcohol and Drug Abuse Patient Records regulations: The Federal rules restrict any use of the information to criminally investigate or prosecute any alcohol or drug abuse patient.[facility] OhioIn the event this information is protected by the Federal Confidentiality of Alcohol and Drug Abuse Patient Records regulations: The Federal rules restrict any use of the information to criminally investigate or prosecute any alcohol or drug abuse patient.[facility] OhioIn the event this information is protected by the Federal Confidentiality of Alcohol and Drug Abuse Patient Records regulations: The Federal rules restrict any use of the information to criminally investigate or prosecute any alcohol or drug abuse patient.[facility] [place]In the event this information is protected by the Federal Confidentiality of Alcohol and Drug Abuse Patient Records regulations: The Federal rules restrict any use of the information to criminally investigate or prosecute any alcohol or drug abuse patient.[facility] [place]In the event this information is protected by the Federal Confidentiality of Alcohol and Drug Abuse Patient Records regulations: The Federal rules restrict any use of the information to criminally investigate or prosecute any alcohol or drug abuse patient.[facility] [place]In the event this information is protected by the Federal Confidentiality of Alcohol and Drug Abuse Patient Records regulations: The Federal rules restrict any use of the information to criminally investigate or prosecute any alcohol or drug abuse patient.[facility] [place]In the event this information is protected by the Federal Confidentiality of Alcohol and Drug Abuse Patient Records regulations: The Federal rules restrict any use of the information to criminally investigate or prosecute any alcohol or drug abuse patient.[facility] [place]In the event this information is protected by the Federal Confidentiality of Alcohol and Drug Abuse Patient Records regulations: The Federal rules restrict any use of the information to criminally investigate or prosecute any alcohol or drug abuse patient.[facility] OhioIn the event this information is protected by the Federal Confidentiality of Alcohol and Drug Abuse Patient Records regulations: The Federal rules restrict any use of the information to criminally investigate or prosecute any alcohol or drug abuse patient.[facility] OhioIn the event this information is protected by the Federal Confidentiality of Alcohol and Drug Abuse Patient Records regulations: The Federal rules restrict any use of the information to criminally investigate or prosecute any alcohol or drug abuse patient.[facility] OhioIn the event this information is protected by the Federal Confidentiality of Alcohol and Drug Abuse Patient Records regulations: The Federal rules restrict any use of the information to criminally investigate or prosecute any alcohol or drug abuse patient.[facility] [place]In the event this information is protected by the Federal Confidentiality of Alcohol and Drug Abuse Patient Records regulations: The Federal rules restrict any use of the information to criminally investigate or prosecute any alcohol or drug abuse patient.[facility] OhioIn the event this information is protected by the Federal Confidentiality of Alcohol and Drug Abuse Patient Records regulations: The Federal rules restrict any use of the information to criminally investigate or prosecute any alcohol or drug abuse patient.[facility] OhioIn the event this information is protected by the Federal Confidentiality of Alcohol and Drug Abuse Patient Records regulations: The Federal rules restrict any use of the information to criminally investigate or prosecute any alcohol or drug abuse patient.[facility] OhioIn the event this information is protected by the Federal Confidentiality of Alcohol and Drug Abuse Patient Records regulations: The Federal rules restrict any use of the information to criminally investigate or prosecute any alcohol or drug abuse patient.[facility] OhioIn the event this information is protected by the Federal Confidentiality of Alcohol and Drug Abuse Patient Records regulations: The Federal rules restrict any use of the information to criminally investigate or prosecute any alcohol or drug abuse patient.[facility] OhioIn the event this information is protected by the Federal Confidentiality of Alcohol and Drug Abuse Patient Records regulations: The Federal rules restrict any use of the information to criminally investigate or prosecute any alcohol or drug abuse patient.[facility] OhioIn the event this information is protected by the Federal Confidentiality of Alcohol and Drug Abuse Patient Records regulations: The Federal rules restrict any use of the information to criminally investigate or prosecute any alcohol or drug abuse patient.[facility] OhioIn the event this information is protected by the Federal Confidentiality of Alcohol and Drug Abuse Patient Records regulations: The Federal rules restrict any use of the information to criminally investigate or prosecute any alcohol or drug abuse patient.[facility] OhioIn the event this information is protected by the Federal Confidentiality of Alcohol and Drug Abuse Patient Records regulations: The Federal rules restrict any use of the information to criminally investigate or prosecute any alcohol or drug abuse patient.[facility] OhioIn the event this information is protected by the Federal Confidentiality of Alcohol and Drug Abuse Patient Records regulations: The Federal rules restrict any use of the information to criminally investigate or prosecute any alcohol or drug abuse patient.[facility] [place]In the event this information is protected by the Federal Confidentiality of Alcohol and Drug Abuse Patient Records regulations: The Federal rules restrict any use of the information to criminally investigate or prosecute any alcohol or drug abuse patient.[facility] [place]In the event this information is protected by the Federal Confidentiality of Alcohol and Drug Abuse Patient Records regulations: The Federal rules restrict any use of the information to criminally investigate or prosecute any alcohol or drug abuse patient.[facility] [place]In the event this information is protected by the Federal Confidentiality of Alcohol and Drug Abuse Patient Records regulations: The Federal rules restrict any use of the information to criminally investigate or prosecute any alcohol or drug abuse patient.[facility] [place]In the event this information is protected by the Federal Confidentiality of Alcohol and Drug Abuse Patient Records regulations: The Federal rules restrict any use of the information to criminally investigate or prosecute any alcohol or drug abuse patient.[facility] [place]In the event this information is protected by the Federal Confidentiality of Alcohol and Drug Abuse Patient Records regulations: The Federal rules restrict any use of the information to criminally investigate or prosecute any alcohol or drug abuse patient.[facility] [place]In the event this information is protected by the Federal Confidentiality of Alcohol and Drug Abuse Patient Records regulations: The Federal rules restrict any use of the information to criminally investigate or prosecute any alcohol or drug abuse patient.[facility] [place]In the event this information is protected by the Federal Confidentiality of Alcohol and Drug Abuse Patient Records regulations: The Federal rules restrict any use of the information to criminally investigate or prosecute any alcohol or drug abuse patient.[facility] [place]In the event this information is protected by the Federal Confidentiality of Alcohol and Drug Abuse Patient Records regulations: The Federal rules restrict any use of the information to criminally investigate or prosecute any alcohol or drug abuse patient.[facility] [place]In the event this information is protected by the Federal Confidentiality of Alcohol and Drug Abuse Patient Records regulations: The Federal rules restrict any use of the information to criminally investigate or prosecute any alcohol or drug abuse patient.[facility] [place]In the event this information is protected by the Federal Confidentiality of Alcohol and Drug Abuse Patient Records regulations: The Federal rules restrict any use of the information to criminally investigate or prosecute any alcohol or drug abuse patient.[facility] [place]In the event this information is protected by the Federal Confidentiality of Alcohol and Drug Abuse Patient Records regulations: The Federal rules restrict any use of the information to criminally investigate or prosecute any alcohol or drug abuse patient.[facility] [place]In the event this information is protected by the Federal Confidentiality of Alcohol and Drug Abuse Patient Records regulations: The Federal rules restrict any use of the information to criminally investigate or prosecute any alcohol or drug abuse patient.[facility] [place]In the event this information is protected by the Federal Confidentiality of Alcohol and Drug Abuse Patient Records regulations: The Federal rules restrict any use of the information to criminally investigate or prosecute any alcohol or drug abuse patient.[facility] [place]In the event this information is protected by the Federal Confidentiality of Alcohol and Drug Abuse Patient Records regulations: The Federal rules restrict any use of the information to criminally investigate or prosecute any alcohol or drug abuse patient.[facility] [place]In the event this information is protected by the Federal Confidentiality of Alcohol and Drug Abuse Patient Records regulations: The Federal rules restrict any use of the information to criminally investigate or prosecute any alcohol or drug abuse patient.[facility] [place]In the event this information is protected by the Federal Confidentiality of Alcohol and Drug Abuse Patient Records regulations: The Federal rules restrict any use of the information to criminally investigate or prosecute any alcohol or drug abuse patient.[facility] [place]In the event this information is protected by the Federal Confidentiality of Alcohol and Drug Abuse Patient Records regulations: The Federal rules restrict any use of the information to criminally investigate or prosecute any alcohol or drug abuse patient.[facility] OhioIn the event this information is protected by the Federal Confidentiality of Alcohol and Drug Abuse Patient Records regulations: The Federal rules restrict any use of the information to criminally investigate or prosecute any alcohol or drug abuse patient.[facility] [place]In the event this information is protected by the Federal Confidentiality of Alcohol and Drug Abuse Patient Records regulations: The Federal rules restrict any use of the information to criminally investigate or prosecute any alcohol or drug abuse patient.[facility] OhioIn the event this information is protected by the Federal Confidentiality of Alcohol and Drug Abuse Patient Records regulations: The Federal rules restrict any use of the information to criminally investigate or prosecute any alcohol or drug abuse patient.[facility] [place]In the event this information is protected by the Federal Confidentiality of Alcohol and Drug Abuse Patient Records regulations: The Federal rules restrict any use of the information to criminally investigate or prosecute any alcohol or drug abuse patient.[facility] [place]In the event this information is protected by the Federal Confidentiality of Alcohol and Drug Abuse Patient Records regulations: The Federal rules restrict any use of the information to criminally investigate or prosecute any alcohol or drug abuse patient.[facility] [place]In the event this information is protected by the Federal Confidentiality of Alcohol and Drug Abuse Patient Records regulations: The Federal rules restrict any use of the information to criminally investigate or prosecute any alcohol or drug abuse patient.[facility] [place]In the event this information is protected by the Federal Confidentiality of Alcohol and Drug Abuse Patient Records regulations: The Federal rules restrict any use of the information to criminally investigate or prosecute any alcohol or drug abuse patient.[facility] [place]In the event this information is protected by the Federal Confidentiality of Alcohol and Drug Abuse Patient Records regulations: The Federal rules restrict any use of the information to criminally investigate or prosecute any alcohol or drug abuse patient.[facility] [place]In the event this information is protected by the Federal Confidentiality of Alcohol and Drug Abuse Patient Records regulations: The Federal rules restrict any use of the information to criminally investigate or prosecute any alcohol or drug abuse patient.[facility] [place]In the event this information is protected by the Federal Confidentiality of Alcohol and Drug Abuse Patient Records regulations: The Federal rules restrict any use of the information to criminally investigate or prosecute any alcohol or drug abuse patient.[facility] [place]In the event this information is protected by the Federal Confidentiality of Alcohol and Drug Abuse Patient Records regulations: The Federal rules restrict any use of the information to criminally investigate or prosecute any alcohol or drug abuse patient.[facility] [place]In the event this information is protected by the Federal Confidentiality of Alcohol and Drug Abuse Patient Records regulations: The Federal rules restrict any use of the information to criminally investigate or prosecute any alcohol or drug abuse patient.[facility] OhioIn the event this information is protected by the Federal Confidentiality of Alcohol and Drug Abuse Patient Records regulations: The Federal rules restrict any use of the information to criminally investigate or prosecute any alcohol or drug abuse patient.[facility] OhioIn the event this information is protected by the Federal Confidentiality of Alcohol and Drug Abuse Patient Records regulations: The Federal rules restrict any use of the information to criminally investigate or prosecute any alcohol or drug abuse patient.[facility] [place]In the event this information is protected by the Federal Confidentiality of Alcohol and Drug Abuse Patient Records regulations: The Federal rules restrict any use of the information to criminally investigate or prosecute any alcohol or drug abuse patient.[facility] [place]In the event this information is protected by the Federal Confidentiality of Alcohol and Drug Abuse Patient Records regulations: The Federal rules restrict any use of the information to criminally investigate or prosecute any alcohol or drug abuse patient.[facility] [place]In the event this information is protected by the Federal Confidentiality of Alcohol and Drug Abuse Patient Records regulations: The Federal rules restrict any use of the information to criminally investigate or prosecute any alcohol or drug abuse patient.[facility] [place]In the event this information is protected by the Federal Confidentiality of Alcohol and Drug Abuse Patient Records regulations: The Federal rules restrict any use of the information to criminally investigate or prosecute any alcohol or drug abuse patient.[facility] [place]In the event this information is protected by the Federal Confidentiality of Alcohol and Drug Abuse Patient Records regulations: The Federal rules restrict any use of the information to criminally investigate or prosecute any alcohol or drug abuse patient.[facility] [place]In the event this information is protected by the Federal Confidentiality of Alcohol and Drug Abuse Patient Records regulations: The Federal rules restrict any use of the information to criminally investigate or prosecute any alcohol or drug abuse patient.[facility] [place]In the event this information is protected by the Federal Confidentiality of Alcohol and Drug Abuse Patient Records regulations: The Federal rules restrict any use of the information to criminally investigate or prosecute any alcohol or drug abuse patient.[facility] [place]In the event this information is protected by the Federal Confidentiality of Alcohol and Drug Abuse Patient Records regulations: The Federal rules restrict any use of the information to criminally investigate or prosecute any alcohol or drug abuse patient.[facility] [place]In the event this information is protected by the Federal Confidentiality of Alcohol and Drug Abuse Patient Records regulations: The Federal rules restrict any use of the information to criminally investigate or prosecute any alcohol or drug abuse patient.[facility] [place]In the event this information is protected by the Federal Confidentiality of Alcohol and Drug Abuse Patient Records regulations: The Federal rules restrict any use of the information to criminally investigate or prosecute any alcohol or drug abuse patient.[facility] [place]In the event this information is protected by the Federal Confidentiality of Alcohol and Drug Abuse Patient Records regulations: The Federal rules restrict any use of the information to criminally investigate or prosecute any alcohol or drug abuse patient.[facility] OhioIn the event this information is protected by the Federal Confidentiality of Alcohol and Drug Abuse Patient Records regulations: The Federal rules restrict any use of the information to criminally investigate or prosecute any alcohol or drug abuse patient.[facility] [place] Reason for Visit (unrecogniz ed section and content) Reason Comments Recheck 4 month follow up Reason Comments Forms pt assistance forms for semaglutide (OZEMPIC) 1 mg/dose (4 mg/3 mL) pen injector Reason Comments pt assistance medicine from the drug com pany Reason Comments Diabetes Reason Onset Date Comments Refill Request 04/01/2022 Reason Comments Lab Orders Reason Comments Allied Health Visit DM Reason Comments Refill Request Reason Comments Medication Problem Reason Comments Patient Assistance Novocare (novolog an d Tresiba) Reason Comments Patient update/concern Reason Comments rec'd one box of novolog flex pen from [facility] [employer] Reason Comments Medication Question Reason Comments Yearly Exam Reason Comments Refill Request Patient Assistance m edication Reason Comments pt assistance rec'd from [employer] Reason Comments Patient Assistance Reason Comments Forms [employer] 2022 PAP r enewal - Tresiba, Novolog, Ozempic Reason Comments Forms Reason Comments pt assitance medicine Ozempic from [employer] Reason Comments tresiba is needed from drug company. Reason Comments Medication Update patient assistance m eds- insulin Reason Comments rec'd nolovog from [employer] Reason Onset Date Comments Refill Request 04/22/2023 Reason Comments reorder for tresebia from [employer] Reason Onset Date Comments License Placard 05/19/2023 Reason Comments pt assistance from [employer] Reason Comments tresiba rec'd from [facility] [employer] Reason Comments ozempic from [facility] Reason Comments Medicare Wellness Exam Reason Comments rec'd 4 boxes of ozempic from[facility] k Reason Comments approval from [employer] for 2023 Reason Comments rec'd tresiba and ozempic from [facility] isk Reason Comments rec'd novolog flexpen from [employer] Reason Comments Pain (foot) R foot 2nd, 3rd, and 4th toe, swelling in foot redness, pain in toes x 1 day Reason Onset Date Comments Refill Request 04/15/2024 Reason Comments pt assistance from [employer] Reason Comments Patient Assistance Patient assistance m edication have been received- 1 box novolog flexpens Reason Onset Date Comments Refill Request 07/23/2024 Reason Comments F/U 6 months Reason Comments patient assistance meds Reason Onset Date Comments Refill Request 08/19/2024 Reason Comments Consult Specialty Diagnoses / Procedures Referred By [place] t Referred To Contact Nephrology Diagnoses 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 Treating with regular baby powder.Would like to discuss CGM. 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 Procedures US KIDNEY/BLADDER US KIDNEY/BLADDER US RETROPERITONEAL REAL TIME W/IMAGE COMPLETE Velia Richter DO [address] [place] [address] [facility] [place] [address] Referral ID Status Reason Start Date Expiration Date V isits Requested Visits Authorized [id number] Closed Auto-Generate d Referral 09/01/2024 10/01/2025 1 1 Reason Onset Date Comments Added to OTP 11/05/2024 Reason Comments CPAP problem Reason Comments Recheck is needing documenta tion in office note stating that his CPAP is not working and unable to be repaired it also needs noted that when he wears his CPAP he benefits from using it. Orders CGM Reason Comments Patient Question Reason Comments Consult FACE SHEET Reason Comments Consult Thyroid Problem Specialty Diagnoses / Procedures Referred By Contac t Referred To Contact Diagnoses Hypercalcemia Procedures CONSULT TO HEMATOLOGY/ONCOLOGY OFFICE/OUTPATIENT [facility] 60 MINUTES Christal Palomares, [employer] WORKER SUPERVISOR.[employer]BIC[employer] SPRAYER [address] [place] [address] Referral ID Status Reason Start Date Expiration Date V isits Requested Visits Authorized [id number] Closed PCP Requested Referral 12/02/2024 12/01/2025 [address] Specialty Diagnoses / Procedures Referred By Contac t Referred To Contact CT IMAGING Diagnoses 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) Shortness of breath Procedures CT CHEST WO IVCON DIAGNOSTIC COMPUTED TOMOGRAPHY THORAX W/O CNTRST Homer Carpio, [employer] WORKER SUPERVISOR.HERBICIDE SPRAYER, PhD [address] [place] [id number] Phone: tel: fax: [facility] [place] [address] Referral ID Status Reason Start Date Expiration Date V isits Requested Visits Authorized [id number] Closed Auto-Generate d Referral 12/21/2024 01/19/2026 1 1 Reason Comments Radiology NM Specialty Diagnoses / Procedures Referred By Contac t Referred To Contact MOLECULAR & FUNCTIONAL IMAGING Diagnoses Hyperparathyroidism (HCC) Procedures NM PARATHYROID W SPECT/CT PARATHYROID IMAGING W/TOMOGRAPHIC SPECT & CT Kristin Guevara MD [address] [place] [address] Phone: tel: fax: [facility] [address] [place] [address] Phone: tel: Referral ID Status Reason Start Date Expiration Date V isits Requested Visits Authorized [id number] Closed Auto-Generate d Referral 12/14/2024 01/13/2026 1 1 Reason Comments Results Reason Comments Patient Update Reason Comments preop pacc / OR MM 03/11/24 Parathyroidec filemon Reason Comments Spirometry Specialty Diagnoses / Procedures Referred By Contac t Referred To Contact [facility] Diagnoses Chronic cough Procedures SPIROMETRY WITH DILATOR IF OBSTRUCTED BRNCDILAT RSPSE SPMTRY PRE&POST-BRNCDILAT Viet Schulz MD [address] [place] [address] Phone: tel: fax: [facility] [address] [facility] [place] [address] Referral ID Status Reason Start Date Expiration Date V isits Requested Visits Authorized [id number] Closed Auto-Generate d Referral 01/18/2025 02/17/2026 1 1 Reason Comments Abnormal Chest X-ray Reason Comments Patient Update Reason Comments Preparations For Surgery PACC Reason Comments Consult surgery 03/11/25 at [facility] Reason Comments Pulmonary Optimization Reason Onset Date Comments Results - Ct 01/03/2025 Reason Comments Follow Up Reason Comments Follow Up Reason Onset Date Comments Refill Request 07/01/2025 Reason Onset Date Comments Refill Request 07/25/2025 Reason Comments Transition Of Care Reason Comments Orders Reason Comments Home Care Management Reason Comments FYI- [facility] Nurse POC wound care Reason Comments FYI-No Action Needed Reason Comments Insurance Authorization Care Teams (unrecognized sec tion and content) Roof Plumber Relationship Specialty Start Date End Date Nithin Acevedo MD [address] [place], [place] [id number] PCP - General 11/30/09 Adriana Garrison RPh [address] [place], [place] [id number] Pharmacist Pharmacy 12/26/20 Roof Plumber Relationship Specialty Start Date End Date Nithin Acevedo MD [address] [place], [place] [id number] PCP - General 11/30/09 MarcoAdriana you, [facility] [address] [facility] [place] [address] Pharmacist Pharmacy 12/26/20 Roof Plumber Relationship Specialty Start Date End Date Nithin Acevedo MD [address] [facility] [place] [address] PCP - General 11/30/09 MarcoAdriana you, [facility] [address] [facility] [place] [address] Pharmacist Pharmacy 12/26/20 Roof Plumber Relationship Specialty Start Date End Date Nithin Acevedo MD [address] [facility] [place] [address] PCP - General 11/30/09 Pallavi Adriana, [facility] [address] [facility] [place] [address] Pharmacist Pharmacy 12/26/20 Roof Plumber Relationship Specialty Start Date End Date Nithin Acevedo MD [address] [facility] [place] [address] PCP - General 11/30/09 MarcoAdriana you, [facility] [address] [facility] [place] [place] [address] Pharmacist Pharmacy 12/26/20 Roof Plumber Relationship Specialty Start Date End Date Nithin Acevedo MD [address] [facility] [place] [address] PCP - General 11/30/09 Marco Adriana, [facility] [address] [facility] [place] [place] [address] Pharmacist Pharmacy 12/26/20 Roof Plumber Relationship Specialty Start Date End Date Nithin Acevedo MD [address] [facility] [place] [address] PCP - General 11/30/09 [facility] [address] [facility] [place] [address] Pharmacist Pharmacy 12/26/20 Roof Plumber Relationship Specialty Start Date End Date Nithin Acevedo MD [address] [facility] [place] [address] PCP - General 11/30/09 [facility] [address] [facility] [place] [address] Pharmacist Pharmacy 12/26/20 Roof Plumber Relationship Specialty Start Date End Date Nithin Acevedo MD [address] [facility] [place] [address] PCP - General 11/30/09 Marco Auroraginger, [facility] [address] [facility] [place] [place] [address] Pharmacist Pharmacy 12/26/20 Roof Plumber Relationship Specialty Start Date End Date Nithin Acevedo MD [address] [facility] [place] [place] [address] PCP - General 11/30/09 [facility] [address] [facility] [place] [place] [address] Pharmacist Pharmacy 12/26/20 Roof Plumber Relationship Specialty Start Date End Date Nithin Acevedo MD [address] [facility] [place] [place] [address] PCP - General 11/30/09 [facility] [address] [facility] [place] [address] Pharmacist Pharmacy 12/26/20 Roof Plumber Relationship Specialty Start Date End Date Nithin Acevedo MD [address] [facility] [place] [place] [address] PCP - General 11/30/09 Roof Plumber Relationship Specialty Start Date End Date Nithin Acevedo MD [address] [facility] [place] [place] [address] PCP - General 11/30/09 Roof Plumber Relationship Specialty Start Date End Date Nithin Acevedo MD [address] [facility] [place] [place] [address] PCP - General 11/30/09 Roof Plumber Relationship Specialty Start Date End Date Nithin Acevedo MD [address] [facility] [place] [place] [address] PCP - General 11/30/09 Roof Plumber Relationship Specialty Start Date End Date Nithin Acevedo MD [address] [facility] [place] [place] [address] PCP - General 11/30/09 Roof Plumber Relationship Specialty Start Date End Date Nithin Acevedo MD [address] [facility] [place] [place] [address] PCP - General 11/30/09 Roof Plumber Relationship Specialty Start Date End Date Nithin Acevedo MD [address] [facility] [place] [place] [address] PCP - General 11/30/09 Roof Plumber Relationship Specialty Start Date End Date Nithin Acevedo MD [address] [facility] [place] [place] [address] PCP - General 11/30/09 Roof Plumber Relationship Specialty Start Date End Date Nithin Acevedo MD [address] [facility] [place] [place] [address] PCP - General 11/30/09 Roof Plumber Relationship Specialty Start Date End Date Nithin Acevedo MD [address] [facility] [place] [place] [address] PCP - General 11/30/09 Roof Plumber Relationship Specialty Start Date End Date Nithin Acevedo MD [address] [facility] [place] [address] PCP - General 11/30/09 Roof Plumber Relationship Specialty Start Date End Date Nithin Acevedo MD [address] [facility] [address] PCP - General 11/30/09 Roof Plumber Relationship Specialty Start Date End Date Nithin Acevedo MD [address] [place] [address] PCP - General 11/30/09 Roof Plumber Relationship Specialty Start Date End Date Nithin Acevedo MD [address] [place] [address] PCP - General 11/30/09 Roof Plumber Relationship Specialty Start Date End Date Nithin Acevedo MD [address] [place] [address] PCP - General 11/30/09 Team Status: Active Member Role Status Dates Dr. Nithin Acevedo MD Family Provider Active Dr. Nithin Acevedo MD Primary Care Provider Active Team Status: Inactive Member Role Status Dates Dr. Nithin Acevedo MD Primary Care Provider Active Jerry Jimenes MD Emergency Provider Active Roof Plumber Relationship Specialty Start Date End Date Nithin Acevedo MD [address] [place] [address] PCP - General 11/30/09 Roof Plumber Relationship Specialty Start Date End Date Nithin Acevedo MD [address] [place] [address] PCP - General 11/30/09 Roof Plumber Relationship Specialty Start Date End Date Nithin Acevedo MD [address] [place] [address] PCP - General 11/30/09 Roof Plumber Relationship Specialty Start Date End Date Nithin Acevedo MD [address] [place] [address] PCP - General 11/30/09 Roof Plumber Relationship Specialty Start Date End Date Nithin Acevedo MD [address] [place] [address] PCP - General 11/30/09 Roof Plumber Relationship Specialty Start Date End Date Nithin Acevedo MD [address] [place] [address] PCP - General 11/30/09 Katherin Mckinnon, PARK WORKER SUPERVISOR.HERBICIDE SPRAYER [address] [place] [address] Road Tester Internal Medicine 10/25/24 Roof Plumber Relationship Specialty Start Date End Date Nithin Acevedo MD [address] [place] [address] PCP - General 11/30/09 Katherin Mckinnon, PARK WORKER SUPERVISOR.HERBICIDE SPRAYER [address] [place] [address] Road Tester Internal Medicine 10/25/24 Otf Funk, RN Specialty Comfort Advisor Nephrology 11/05/24 Roof Plumber Relationship Specialty Start Date End Date Nithin Acevedo MD [address] [place] [address] PCP - General 11/30/09 Katherin Mckinnon, PARK WORKER SUPERVISOR.HERBICIDE SPRAYER [address] [place] [address] Road Tester Internal Medicine 10/25/24 Otf Funk RN Specialty Comfort Advisor Nephrology 11/05/24 Roof Plumber Relationship Specialty Start Date End Date Nithin Acevedo MD [address] [place] [address] PCP - General 11/30/09 Katherin Mckinnon, PARK WORKER SUPERVISOR.HERBICIDE SPRAYER [address] [place] [address] Road Tester Internal Medicine 10/25/24 Otf Funk, CEFERINO Specialty Comfort Advisor Nephrology 11/05/24 Roof Plumber Relationship Specialty Start Date End Date Nithin Acevedo MD [address] [place] [address] PCP - General 11/30/09 Katherin Mckinnon, PARK WORKER SUPERVISOR.HERBICIDE SPRAYER [address] [place] [address] Road Tester Internal Medicine 10/25/24 Otf Funk, RN Specialty Comfort Advisor Nephrology 11/05/24 Roof Plumber Relationship Specialty Start Date End Date Nithin Acevedo MD [address] [facility] [address] PCP - General 11/30/09 Katherin Mckinnon, PARK WORKER SUPERVISOR.HERBICIDE SPRAYER [address] [place] [address] Road Tester Internal Medicine 10/25/24 Otf Funk RN Specialty Comfort Advisor Nephrology 11/05/24 Roof Plumber Relationship Specialty Start Date End Date Nithin Acevedo MD [address] [place] [address] PCP - General 11/30/09 Katherin Mckinnon, PARK WORKER SUPERVISOR.HERBICIDE SPRAYER [address] [place] [address] Road Tester Internal Medicine 10/25/24 Otf Funk RN Specialty Comfort Advisor Nephrology 11/05/24 Roof Plumber Relationship Specialty Start Date End Date Nithin Acevedo MD [address] [place] [address] PCP - General 11/30/09 Katherin Mckinnon, PARK WORKER SUPERVISOR.HERBICIDE SPRAYER [address] [place] [address] Road Tester Internal Medicine 10/25/24 Otf Funk, CEFERINO Specialty Comfort Advisor Nephrology 11/05/24 Roof Plumber Relationship Specialty Start Date End Date Nithin Acevedo MD [address] [place] [address] PCP - General 11/30/09 Katherin Mckinnon, PARK WORKER SUPERVISOR.HERBICIDE SPRAYER [address] [facility] [place] [address] Road Tester Internal Medicine 10/25/24 Otf Funk, RN Specialty Comfort Advisor Nephrology 11/05/24 Roof Plumber Relationship Specialty Start Date End Date Nithin Acevedo MD [address] [place] [address] PCP - General 11/30/09 Katherin Mckinnon, PARK WORKER SUPERVISOR.HERBICIDE SPRAYER [address] [place] [address] Road Tester Internal Medicine 10/25/24 Otf Funk, CEFERINO Specialty Comfort Advisor Nephrology 11/05/24 Roof Plumber Relationship Specialty Start Date End Date Nithin Acevedo MD [address] [place] [address] PCP - General 11/30/09 Katherin Mckinnon, PARK WORKER SUPERVISOR.HERBICIDE SPRAYER [address] [place] [address] Road Tester Internal Medicine 10/25/24 Otf Funk, RN Specialty Comfort Advisor Nephrology 11/05/24 Roof Plumber Relationship Specialty Start Date End Date Nithin Acevedo MD [address] [place] [address] PCP - General 11/30/09 Katherin Mckinnon, PARK WORKER SUPERVISOR.HERBICIDE SPRAYER [address] [place] [address] Road Tester Internal Medicine 10/25/24 Otf Funk, RN Specialty Comfort Advisor Nephrology 11/05/24 Roof Plumber Relationship Specialty Start Date End Date Nithin Acevedo MD [address] [place] [address] PCP - General 11/30/09 Katherin Mckinnon, PARK WORKER SUPERVISOR.HERBICIDE SPRAYER [address] [place] [address] Road Tester Internal Medicine 10/25/24 Otf Funk, CEFERINO Specialty Comfort Advisor Nephrology 11/05/24 Roof Plumber Relationship Specialty Start Date End Date Nithin Acevedo MD [address] [place] [address] PCP - General 11/30/09 Katherin Mckinnon, PARK WORKER SUPERVISOR.HERBICIDE SPRAYER [address] [place] [address] Road Tester Internal Medicine 10/25/24 Otf Funk RN Specialty Comfort Advisor Nephrology 11/05/24 Roof Plumber Relationship Specialty Start Date End Date Nithin Acevedo MD [address] [place] [address] PCP - General 11/30/09 Katherin Mckinnon, PARK WORKER SUPERVISOR.HERBICIDE SPRAYER [address] [place] [address] Road Tester Internal Medicine 10/25/24 Otf Funk, CEFERINO Specialty Comfort Advisor Nephrology 11/05/24 Roof Plumber Relationship Specialty Start Date End Date Nithin Acevedo MD [address] [place] [address] PCP - General 11/30/09 Katherin Mckinnon, PARK WORKER SUPERVISOR.HERBICIDE SPRAYER [address] [facility] [address] Road Tester Internal Medicine 10/25/24 Otf Funk, RN Specialty Comfort Advisor Nephrology 11/05/24 Roof Plumber Relationship Specialty Start Date End Date Nithin Acevedo MD [address] [place] [address] PCP - General 11/30/09 Katherin Mckinnon, PARK WORKER SUPERVISOR.HERBICIDE SPRAYER [address] [place] [address] Road Tester Internal Medicine 10/25/24 Otf Funk, RN Specialty Comfort Advisor Nephrology 11/05/24 Roof Plumber Relationship Specialty Start Date End Date Nithin Acevedo MD [address] [place] [address] PCP - General 11/30/09 Katherin Mckinnon, PARK WORKER SUPERVISOR.HERBICIDE SPRAYER [address] [place] [address] Road Tester Internal Medicine 10/25/24 Otf Funk, RN Specialty Comfort Advisor Nephrology 11/05/24 Roof Plumber Relationship Specialty Start Date End Date Nithin Acevedo MD [address] [place] [address] PCP - General 11/30/09 Katherin Mckinnon, PARK WORKER SUPERVISOR.HERBICIDE SPRAYER [address] [place] [address] Road Tester Internal Medicine 10/25/24 Otf Funk, RN Specialty Comfort Advisor Nephrology 11/05/24 Roof Plumber Relationship Specialty Start Date End Date Nithin Acevedo MD [address] [place] [address] PCP - General 11/30/09 Katherin Mckinnon, PARK WORKER SUPERVISOR.HERBICIDE SPRAYER [address] [place] [address] Road Tester Internal Medicine 10/25/24 Otf Funk, CEFERINO Specialty Comfort Advisor Nephrology 11/05/24 Roof Plumber Relationship Specialty Start Date End Date Nithin Acevedo MD [address] [facility] [address] PCP - General 11/30/09 Katherin Mckinnon, PARK WORKER SUPERVISOR.HERBICIDE SPRAYER [address] [place] [address] Road Tester Internal Medicine 10/25/24 Otf Funk, CEFERINO Specialty Comfort Advisor Nephrology 11/05/24 Roof Plumber Relationship Specialty Start Date End Date Nithin Acevedo MD [address] [facility] [address] PCP - General 11/30/09 Katherin Mckinnon, PARK WORKER SUPERVISOR.HERBICIDE SPRAYER [address] [place] [address] Road Tester Internal Medicine 10/25/24 Otf Funk, RN Specialty Comfort Advisor Nephrology 11/05/24 Roof Plumber Relationship Specialty Start Date End Date Nithin Acevedo MD [address] [facility] [address] PCP - General 11/30/09 Katherin Mckinnon, PARK WORKER SUPERVISOR.HERBICIDE SPRAYER [address] [facility] [place] [address] Road Tester Internal Medicine 10/25/24 Otf Funk, RN Specialty Comfort Advisor Nephrology 11/05/24 Roof Plumber Relationship Specialty Start Date End Date Nithin Acevedo MD [address] [facility] [place] [address] PCP - General 11/30/09 Katherin Mckinnon, PARK WORKER SUPERVISOR.HERBICIDE SPRAYER [address] [facility] [place] [address] Road Tester Internal Medicine 10/25/24 Otf Funk, CEFERINO Specialty Comfort Advisor Nephrology 11/05/24 Roof Plumber Relationship Specialty Start Date End Date Nithin Acevedo MD [address] [facility] [place] [place] [address] PCP - General 11/30/09 Katherin Mckinnon, PARK WORKER SUPERVISOR.HERBICIDE SPRAYER [address] [facility] [place] [address] Road Tester Internal Medicine 10/25/24 Otf Funk, RN Specialty Comfort Advisor Nephrology 11/05/24 Team Status: Active Member Role/Relationship Status Dates Dr. Nithin Acevedo MD Primary Care Provider Active Team Status: Active Member Role/Relationship Status Dates Dr. Nithin Acevedo MD Primary Care Provider Active Start: July 21, 2025 Dr. Fely Parra , Emergency Provider Active S tart: July 21, 2025 Dr. Nathaniel Beverly MD Admit Provider Active Star t: July 21, 2025 Dr. Nathaniel Beverly MD Attending Provider Active Start: July 21, 2025 Team Status: Active Member Role/Relationship Status Dates Dr. Nithin Acevedo MD Primary Care Provider Active Start: July 21, 2025 Dr. Fely Parra DO Emergency Provider Active S tart: July 21, 2025 Dr. Nathaniel Beverly MD Admit Provider Active Star t: July 21, 2025 Dr. Nathaniel Beverly MD Attending Provider Active Start: July 21, 2025 Dr. Nathaniel Beverly MD Other Provider Active Star t: July 21, 2025 Team Status: Inactive Member Role/Relationship Status Dates Dr. Nithin Acevedo MD Primary Care Provider Active Start: July 21, 2025 End: July 23, 2025 Dr. Fely Parra DO Emergency Provider Active S tart: July 21, 2025 End: July 23, 2025 Dr. Nathaniel Beverly MD Admit Provider Active Star t: July 21, 2025 End: July 23, 2025 Dr. Nathaniel Beverly MD Attending Provider Active Start: July 21, 2025 End: July 23, 2025 Team Status: Active Member Role/Relationship Status Dates Dr. Nithin Acevedo MD Primary Care Provider Active Start: July 21, 2025 Dr. Jeni Mock MD Attending Provider Activ e Start: July 21, 2025 Team Status: Active Member Role/Relationship Status Dates Dr. Nithin Acevedo MD Primary Care Provider Active Start: July 22, 2025 Dr. Fely Parra DO Emergency Provider Active S tart: July 22, 2025 Dr. Nathaniel Beverly MD Admit Provider Active Star t: July 22, 2025 Dr. Nathaniel Beverly MD Attending Provider Active Start: July 22, 2025 Dr. Nathaniel Beverly MD Other Provider Active Star t: July 22, 2025 Team Status: Active Member Role/Relationship Status Dates Dr. Nithin Acevedo MD Primary Care Provider Active Start: July 23, 2025 Dr. Fely Parra DO Emergency Provider Active S tart: July 23, 2025 Dr. Nathaniel Beverly MD Admit Provider Active Star t: July 23, 2025 Dr. Nathaniel Beverly MD Attending Provider Active Start: July 23, 2025 Dr. Nathaniel Beverly MD Other Provider Active Star t: July 23, 2025 Roof Plumber Relationship Specialty Start Date End Date Nithin Acevedo MD [address] [place] [address] PCP - General 11/30/09 Katherin Mckinnon, PARK WORKER SUPERVISOR.HERBICIDE SPRAYER [address] [place] [address] Road Tester Internal Medicine 10/25/24 Otf Funk, RN Specialty Comfort Advisor Nephrology 11/05/24 Roof Plumber Relationship Specialty Start Date End Date Nithin Acevedo MD [address] [place] [address] PCP - General 11/30/09 Katherin Mckinnon, PARK WORKER SUPERVISOR.HERBICIDE SPRAYER [address] [place] [address] Road Tester Internal Medicine 10/25/24 Otf Funk, RN Specialty Comfort Advisor Nephrology 11/05/24 Roof Plumber Relationship Specialty Start Date End Date Nithin Acevedo MD [address] [place] [address] PCP - General 11/30/09 Katherin Mckinnon, PARK WORKER SUPERVISOR.HERBICIDE SPRAYER [address] [place] [address] Road Tester Internal Medicine 10/25/24 Otf Funk, RN Specialty Comfort Advisor Nephrology 11/05/24 Roof Plumber Relationship Specialty Start Date End Date Nithin Acevedo MD [address] [place] [address] PCP - General 11/30/09 Katherin Mckinnon, PARK WORKER SUPERVISOR.HERBICIDE SPRAYER [address] [place] [address] Road Tester Internal Medicine 10/25/24 Otf Funk, RN Specialty Comfort Advisor Nephrology 11/05/24 Team Status: Active Member Role/Relationship Status Dates Dr. Nithin Acevedo MD Primary care physician Activ e Team Status: Inactive Member Role/Relationship Status Dates Dr. Nithin Acevedo MD Primary care physician Activ e Start: July 21, 2025 End: July 23, 2025 Dr. Feyl Parra DO Emergency Departmen t Physician Active Start: July 21, 2025 End: July 23, 2025 Dr. Nathaniel Beverly MD Admitting physician Active Start: July 21, 2025 End: July 23, 2025 Dr. Nathaniel Beverly MD Attending physician Active Start: July 21, 2025 End: July 23, 2025 Team Status: Active Member Role/Relationship Status Dates Dr. Nithin Acevedo MD Primary care physician Activ e Start: July 21, 2025 Dr. Fely Parra DO Emergency Departmen t Physician Active Start: July 21, 2025 Dr. Nathaniel Beverly MD Admitting physician Active Start: July 21, 2025 Dr. Nathaniel Beverly MD Attending physician Active Start: July 21, 2025 Dr. Nathaniel Beverly MD Nurse Practitioner Active Start: July 21, 2025 Team Status: Active Member Role/Relationship Status Dates Dr. Nithin Acevedo MD Primary care physician Activ e Start: July 21, 2025 Dr. Jeni Mock MD Attending physician Active Start: July Team Status: Active Member Role/Relationship Status Dates Dr. Nithin Acevedo MD Primary care physician Activ e Start: July 22, 2025 Dr. Fely Parra DO Emergency Departmen t Physician Active Start: July 22, 2025 Dr. Nathaniel Beverly MD Admitting physician Active Start: July 22, 2025 Dr. Nathaniel Beverly MD Attending physician Active Start: July 22, 2025 Dr. Nathaniel Beverly MD Nurse Practitioner Active Start: July 22, 2025 Team Status: Active Member Role/Relationship Status Dates Dr. Nithin Acevedo MD Primary care physician Activ e Start: July 23, 2025 Dr. Fely Parra Emergency Departmen t Physician Active Start: July 23, 2025 Dr. Nathaniel Beverly MD Admitting physician Active Start: July 23, 2025 Dr. Nathaniel Beverly MD Attending physician Active Start: July 23, 2025 Dr. Nathaniel Beverly MD Nurse Practitioner Active Start: Florencia 6th, 2025 Team Status: Inactive Member Role/Relationship Status Dates Dr. Nithin Acevedo MD Primary care physician Activ e Start: August 02, 2025 End: August 02, 2025 Dr. Nithin Acevedo MD Attending physician Active Start: August 02, 2025 End: August 02, 2025 Dr. Nithin Acevedo MD Referring Provider Active Start: August 02, 2025 End: August 02, 2025 Care Team (unrecognized sect ion and content) Personnel Name: NITHIN ACEVEDO MD Address: Address: [address] [place] [address]- Care Team Personnel Name: NITHIN ACEVEDO MD Member Role: Primary Care Physician Address: Address: [address] [place] [address] Care Team Related Persons Name: HARMAN HU Name: ALIZA HU Address: [place] [address] [place], [place] [address] Care Team Personnel Name: NITHIN ACEVEDO MD Member Role: Primary Care Physician Address: Address: [address] [place] [address] Care Team Related Persons Name: HARMAN HU Name: ALIZA HU Address: Home [address] [place] [address] [place] Care Team Personnel Name: NITHIN ACEVEDO MD Member Role: Primary Care Physician Address: Address: [address] [place] [address]- Care Team Related Persons Name: HARMAN HU Name: ALIZA HU Address: Home [address] [place] [address] Care Team Personnel Name: Lindsey John Position: Quality Review Member Role: Comfort Advisor Name: NITHIN ACEVEDO MD Member Role: Primary Care Physician Address: Address: [address] [place] [address]- Care Team Related Persons Name: JOSUE HARMAN Name: JOSUE ALIZA Address: Home [address] [place] [address] [place] Goals (unrecognized section and content) Goals may be documented in a n alternate section FOR RECORDS PERTAINING TO PATIENTS WHO ARE OR HAVE BEEN ENROLLED IN A CHEMICAL DEPENDENCY/SUBSTANCEABUSE PROGRAM, SOME INFORMATION MAY BE OMITTED. This clinical summary was aggregated from multiple sources. Caution should be exercised in using it in the provision of clinical care. This summary normalizes information from multiple sources, and as a consequence, information in this document may materially change the coding, format and clinical context of patient data. In addition, data may be omitted in some cases. CLINICAL DECISIONS SHOULD BE BASED ON THE PRIMARY CLINICAL RECORDS. [facility] [employer] [facility]. provides no warranty or guarantee of the accuracy or completeness of information in this document.
[2025-11-08 20:33] LABS: Hematocrit 25.5 % (40-54); Hemoglobin 7.1 g/dL (13.0-16.5); Immature Granulocytes Count 0.020 X10^3/uL (0.0-0.0); Mean Corp Hgb Conc 27.8 g/dL (32-36); Mean Corpuscular Volume 79.7 fL (80-94); NRBC Flagged by Analyzer 0 % (0-5); POSITIVE COUNT YES; POSITIVE DIFFERENTIAL YES; RBC Distribution Width CV 16.8 % (11.6-14.6); RBC Distribution Width SD 48.7 fl (35.1-43.9); Red Blood Count 3.20 M/mm3 (4.6-6.2); White Blood Count 4.3 K/mm3 (4.4-11.0)
[2025-11-08 20:42] LABS: Pro- Brain NATRIURETIC PEPTIDE 1684 pg/mL (<=1800); Troponin T High Sensitivity 93 ng/L (<=22)
[2025-11-08 20:54] LABS: Differential Indicated SCAN CRITERIA MET
[2025-11-08 21:07] LABS: BUN 84 mg/dL (4-19); BUN/Creat Ratio 23.7 RATIO (10-20); Calcium,Total 10.6 mg/dL (7.6-11.0); Carbon Dioxide 26.7 mmol/L (20.0-29.0); Estimated Creatinine Clearance 22.82 ml/min (50-250); Glucose 123 mg/dL (70-99)
[2025-11-08 21:10] LABS: Anion Gap 12 (7-18); Chloride 107 mmol/L (96-106); Potassium 5.0 mmol/L (3.5-5.1)
[2025-11-08 21:51] LABS: Differential Comment SCANNED
--- NOTE | 2025-11-08 21:56 | PCM.HP.STD ---
HPI - General General Date of Admission: 11/08/25 HPI Narrative FEDERICO SALAS, is a 89 M with medical history significant for HFpEF, CKD baseline creatinine 3.1, paroxysmal A-fib on Eliquis and type diabetes presented with gradually progressing shortness of breath on exertion and lower extremities swelling over the past few weeks. He has a night time CPAP and he tried to use it over the past few days during the daytime for symptom relief. Patient looked at his pulse oximetry machine and he thought his O2 saturation was 50 but his pulse appears to be 50 when he was in the ED so possibly it was a misreading. Patient was hospitalized in July for CHF exacerbation and required IV diuresis, EF was 60% normal valves and normal right side but RVSP was around 40 slightly elevated. At home he has been taking 80 mg oral Lasix twice daily but not responding well. He did not require oxygen in the ED. He had a Lasix 80 IV x 1 in the ED and then the bladder scan after some time showed a 419 mL and a Soler was placed. Denies chest pain. EKG is unchanged from prior his rate is in the 40s to 50s show incomplete right bundle branch block and no signs of ischemia. Troponin was 93 then trended down to the 80s. Serum creatinine 3.5 slightly higher than baseline. Patient need admission for IV diuresis, he might benefit from switching to oral Bumex on discharge as it has high and predictable bioavailability compared to Lasix. [facility] Medical History (Updated 11/09/25 @ 04:[address] Hemal Morgan MD) Diabetes CHF (congestive heart failure) Afib CAD (coronary artery disease) Home Medications ?Medication ?Instructions ?Recorded ?Last Taken ?Type doxazosin 2 mg tablet 2 mg PO QHS PROSTATE 07/02/16 11/08/25 History nitroglycerin 0.4 mg sublingual 0.4 mg sublingual PRN PRN CHEST 04/01/18 Unknown History tablet (Nitrostat) PAIN apixaban 2.5 mg tablet (Eliquis) 2.5 mg PO BID blood thinner 03/27/24 11/08/25 History insulin degludec 100 unit/mL 40 unit subcut DAILY blood sugar 03/27/24 11/08/25 History subcutaneous solution (Tresiba U-100 Insulin) atorvastatin 40 mg tablet 40 mg PO DAILY cholesterol 07/21/25 11/08/25 History sacubitril 97 mg-valsartan 103 mg 1 tab PO BID heart 07/21/25 11/08/25 History tablet (Entresto) furosemide 40 mg tablet 40 mg PO BID fluid #180 tabs 07/23/25 11/08/25 Rx Allergy/AdvReac Type Severity Reaction Status Date / Time finasteride (From Proscar) Allergy Hives Verified 11/08/25 19:52 Social History (Updated 07/21/25 @ 10:37 by Irma Hensley) household members: family Smoking Status: Former smoker ROS Constitutional Constitutional: Denies fever(s) or poor appetite ENT HEENT: Reports none Cardiovascular Cardiovascular: Reports dyspnea and dyspnea on exertion; Denies chest pain Respiratory/Chest Respiratory/Chest: Denies cough or wheezing Gastrointestinal Gastrointestinal: Denies abdominal pain or change in bowel habits Genitourinary Genitourinary: Reports other Details: Difficulty urinating ; Denies change in urinary stream or dysuria Musculoskeletal Musculoskeletal: Reports other Details: Leg swelling ; Denies arthralgias or myalgias Integumentary Integumentary: Reports none Neurologic Neurologic: Denies abnormal speech, dizziness, focal weakness, loss of vision or numbness Hematologic/Lymphatic Hematologic/Lymphatic: Reports none Patient's Goals Of Care . What would you like to achieve or improve as a result of your hospital stay?: Improved dyspnea Vital Signs Vital Signs Vital Signs: 11/08/25 19:51 11/08/25 19:54 11/08/25 19:59 Temperature 97 F L 97 F L Temperature Source Temporal Temporal Pulse Rate 53 L 57 L Respiratory Rate 22 H 22 H Respiratory Effort Labored Blood Pressure 98/80 114/61 Blood Pressure Mean 86 78 Pulse Ox 96 100 Oxygen Delivery Method Room Air Room Air Oxygen Flow Rate (L/min) 11/08/25 20:26 11/08/25 21:22 11/08/25 21:44 Temperature 97 F L Temperature Source Pulse Rate 46 L 46 L Respiratory Rate 16 16 Respiratory Effort Blood Pressure 121/54 H 108/47 L Blood Pressure Mean 76 67 Pulse Ox 89 98 Oxygen Delivery Method Room Air Room Air Oxygen Flow Rate (L/min) 11/08/25 21:45 Temperature Temperature Source Pulse Rate Respiratory Rate Respiratory Effort Blood Pressure Blood Pressure Mean Pulse Ox 98 Oxygen Delivery Method Nasal Cannula Oxygen Flow Rate (L/min) 2 Weight Weight: 164.4 kg Body Mass Index (BMI) 47.8 Physical Exam Const alert and oriented x3 HEENT normocephalic and head/scalp atraumatic Eyes EOMs intact bilaterally; Negative for no scleral icterus Neck supple Resp normal respiratory effort and clear to auscultation bilaterally Cardio regular rate and regular rhythm; Negative for no murmurs GI normal to inspection, nondistended, normoactive bowel sounds; Negative for non-tender no CVA tenderness Extremity no joint enlargement Extremity Narrative: Legs edema. He has wounds wrapped. Skin no rashes or lesions noted Neuro oriented x3 and moves all extremities Results Lab / Micro Data 11/08/25 19:59 11/08/25 19:59 Labs: Laboratory Results - last 24 hr 11/08/25 19:59: WBC 4.3 L, RBC 3.20 L, Hgb 7.1 L, Hct 25.5 L, MCV 79.7 L, MCH 22.2 L, MCHC 27.8 L, RDW Std Deviation 48.7 H, RDW Coeff of Jazmin 16.8 H, Plt Count TNP, MPV TNP, Immature Gran % (Auto) 0.500, Neut % (Auto) 77.0 H, Lymph % (Auto) 10.8 L, [place] % (Auto) 9.4, Eos % (Auto) 1.8, Baso % (Auto) 0.5, Absolute Neuts (auto) 3.3, Absolute Lymphs (auto) 0.47 L, Nucleated RBC % 0, Differential Comment SCANNED, Platelet Estimate ADEQUATE, Sodium 145, Potassium 5.0, Chloride 107 H, Carbon Dioxide 26.7, Anion Gap 12, BUN 84 H, Creatinine 3.53 H, Estim Creat Clear Calc 22.82 L, Est GFR (MDRD) Non-Af 16 L, BUN/Creatinine Ratio 23.7 H, Glucose 123 H, Calcium 10.6, Troponin T High Sens 93 H*, NT pro BNP II 1684 Micro: Microbiology 11/08/25 20:40 Mucosa - Nose SARS-CoV-2, Influenza & RSV (PCR) - Final Imaging Radiology Impression Chest X-Ray 11/08/25 20:18 IMPRESSION: Pulmonary findings as above. Reading [facility] Assessment & Plan Assessment/Plan (1) Acute decompensated heart failure: (2) (HFpEF) heart failure with preserved ejection fraction: QUALIFIERS: Heart failure chronicity: acute on chronic Qualified Code(s): I50.33 - Acute on chronic diastolic (congestive) heart failure (3) Lower extremity edema: (4) LIDA (acute kidney injury): (5) CKD (chronic kidney disease): QUALIFIERS: Chronic kidney disease stage: stage 4 (GFR 15-29) Qualified Code(s): N18.4 - Chronic kidney disease, stage 4 (severe) (6) Diabetes: QUALIFIERS: Diabetes mellitus type: type 2 Diabetes mellitus termite control servicer insulin use: with termite control servicer use Diabetes mellitus complication status: with kidney complications Diabetes mellitus complication detail: with chronic kidney disease PLAN: Plan Admission to cardiac telemetry PCU Switch to equivalent dose of Bumex which is 1 mg IV twice daily, if he responds well he can be discharged on the same dose orally. Lack of response to oral Lasix can be from its unpredictable bioavailability between 50 to 100%, or decreased efficacy with worsening kidney function or bowel edema. His mentioned there was an extra medicine added to Lasix for diuresis I expected to be metolazone. Strict I's and O's. Soler was placed because bladder scan showed 419 mL after 80 mg IV Lasix and he did not urinate. Continue BPH medications Hold Entresto during IV diuresis so creatinine does not go higher If kidney function does not improve or he does not respond to oral cannot tolerate diuresis then a nephrology consult is warranted Continue Eliquis for PAF Nocturnal CPAP for HELDER Reduce Lantus while in hospital continue Premeal sliding scale Charges/Coding Visit Charges Inpatient E&M: 12150 Init Hosp L3
--- OUTSIDE RECORDS SUMMARY | 2025-11-08 22:23 | XMS RPT_ITS | CCD ---
Author Organization [facility] Care Team Providers Care Door Manager Name Role Phone MANISH, AVELINO Unavailable Unavailable [...] Unavailable Nithin Acevedo MD Primary Care Provider [facility], Keti Unavailable DR NITHIN ACEVEDO MD Primary Care Physician [phone] Nithin Acevedo MD Primary Care Provider [facility], Keti Unavailable JULIÁN ESCOBEDO., DR. WELLER Primary [...] Nithin Acevedo MD Primary Care Provider Michelle PLANNING DIRECTOR.FIRST AID TEACHER, Kathrein M Unavailable Luis RN, Tertecka Unavailable Unavailable [...] Consulting Unavailable PROVIDER, UNKNOWN Consulting Unavailable Dr. Nithin Acevedo MD Primary Care Physician Fidel CAMPOVERDE, [...] Unavailable Acevedo, Nithin Primary Care Unavailable Acevedo, Nithin Primary Care Unavailable Jeni Mock Attending Unavailabl e Julián, Nithin Primary Care Unavailable Nathaniel Beverly Attending Unavailable Nathaniel Beverly Admitting Unavailable Acevedo, Nithin Primary Care Unavailable Harman Strickland Attending Unavailable Harman Strickland Referring Unavailable ACEVEDO, CORTNEY Primary Care Unavailable ACEVEDO, CORTNEY Referring Unavailable ACEVEDO, CORTNEY Primary Care Unavailable CHRISTAL PALOMARES Referring Unavailab CHRISTAL Moncada Attending Unavailab le ACEVEDO, CORTNYE Primary Care Unavailable VELIA RICHTER Referring Unavailable [...] ACEVEDO, CORTNEY Primary Care Unavailable ACEVEDO, CORTNEY Attending Unavailable [...] sources) finasteride; Translations: [FINASTERIDE] Drug Allergy 07-02-2010 [facility] Repository (20 sources) fexofenadine; Translations: [fexofenadine] Drug Allergy 11-05-2024 Unknown [facility] Medications Current Medications Medication Drug Class(es) Dates [...] BID, # 180 tab(s), 2 Refill(s), Pharmacy[facility] 182.9, cm, 05/14/22 10:15:00 EDT, [...] mouth once daily. Blood-Glucose Meter,Continuous (DEXCOM G7 GROOVER OPERATOR) misc (20 sources) Start: 12-01-19 Blood-Glucose Meter,Continuous (DEXCOM G7 GROOVER OPERATOR) misc Dx: E11.49. Insulin: Yes. Use to [...] qDay, # 90 tab(s), 3 Refill(s), Pharmacy: [facility], 185, cm, 02/26/22 9:54:00 EDT, Height Start Date: 04/09/22 Status: Ordered Start: 04-01-2018 End: 07-21-2025 take 1 tablet by mouth once daily Furosemide 20 MG tablet Discontinued 20 mg PO DAILY April 01, 2018 12:00am July 21, 2025 10:41am BP Comment on above: Take 1 tablet by kendra th once daily. Take 1 tablet by [...] Drug Class(es) Dates Sig (Normalized) Sig (Original) [id number] 200 actuat albuterol 0.09 mg/actuat metered dose [...] azelastine-fluticasone (DYMISTA) 137-50 mcg/spray spry Use 1 [place] in each nostril twice daily. 23 g 1 06/25/2021 07/28/2024 Discontinued (Discontinued by Patient) Comment on above: Use 1 [place] in each nostril twice daily. azithromycin 250 [...] 2 diabetes mellitus with neurological manifestations, controlled ([facility]) Inject 55 Units subcutaneously daily at bedtime. [...] daily LOW-DOSE ASPIRIN ORAL Indications: Atherosclerosis of [place] coronary artery of [place] heart without angina pectoris Take 81 mg by mouth once daily. 07/28/2024 Discontinued (Discontinued by another Health Care Provider) take 81 mg by mouth once daily L OW-DOSE ASPIRIN ORAL Indications: Atherosclerosis of [place] coronary artery of [place] heart without angina pectoris Take 81 mg by mouth once daily. Active take 81 mg by mouth once daily L OW-DOSE ASPIRIN ORAL Indications: Atherosclerosis of [place] coronary artery of [place] heart without angina pectoris Take 81 mg [...] mg tablet Indications: Atrial fibrillation, unspecified type ([facility]) Take 0.5 tablets by mouth twice daily. [...] disease (20 sources) Atherosclerotic heart disease of [place] coronary artery without angina pectoris; Translations: [Coronary [...] source) Long-term current use of anticoagulant; Translations: [assisted (current) use of anticoagulants] 01-21-2025 Episodic Other [...] [Morbid obesity with BMI of 45.0-49.9, adult ([facility])] Onset: 3 Chronic Other nutritional; endocrine; and metabolic disorders (1 source) Body mass index (BMI) 45.0-49.9, adult; Translations: [Morbid obesity with BMI of 45.0-49.9, adult ([facility])] Onset: 3 Chronic Other nutritional; endocrine; and [...] 8 04-12-2020 Comment on above: done at [facility] referred /dr nguyễn (cardiology) for heart [...] Test Name Value Interpretation Reference Range Facility [facility] 09-20-2025 [facility] Telephone (INTMWS) FEDERICO HU ([id number]) 1935 M Date Time Provider Department 09/20/25 NITHIN ACEVEDO INTWS During your visit today, we recorded the following information about you: Bear Good RN 09/20/2025 10:30 AM Signed Moises- [facility]- reporting SN POC: did re-cert today and [...] LPN - Fully Assessed Reason for Visit: [facility] SN POC [Other] Prescriptions as of 09/20/2025 [...] at bedtime. 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 Use to check blood sugars at least 4 times a day - Blood-Glucose Sensor (DEXCOM G7 SENSOR) [facility] Dx: E11.49. ?Insulin: Yes. Apply new [...] [L89.3*07/26/2025 Encounter Status:Closed by Bear GOOD on 09/20/25 Normal [facility] 09-13-2025 [facility] Telephone (INTMWS) FEDERICO HU ([id number]) 1935 M Date Time Provider Department 09/13/25 NITHIN ACEVEDO INTMWS During your visit today, we recorded the following information about you: Krissy Amor RN 09/13/2025 4:40 PM Addendum Chepe with [facility] calls to request nephrology referral be sent to Dr. Mendoza. Chepe reports patient was not sure provider he was originally referred to but they were not accepting new patients. Faxed per request to Dr. Mendoza at [phone]. Call placed to patient and spoke to spouse. Contact information given for Dr. Mendoza's [place] location. Aliza aware to call back for any further assistance needed. See other TE from 09/12/2025 for further request. Krissy Amor RN Allergies As of Date: 09/13/2025 Noted Allergy Reaction FEXOFENADINE 11/05/2024 16 - Unknown PROSCAR (FINASTERIDE) 07/02/2010 2 - Rash Date Reviewed: 07/26/2025 Reviewed by: Daxa Morin, BROADLOOM WEAVER - Fully Assessed Reason for Visit: Consult [...] at bedtime. 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 Use to check [...] Encounter Status:Closed by [facility]OR [facility] (INTMWS[facility] FEDERICO HU ([id number]) 1935 M Date Time Provider Department 09/12/25 NITIHN ACEVEDO INTMWS During your visit today, we recorded the following information about you: Homer Smith LPN 09/12/2025 3:03 PM Signed Moises from [facility] Home Health calling wants to add a penitentiary visit for next week. Patient weight is up again today he is 364 pounds, fluid blisters on his legs again. Bezel Cutter Dr Strickland from [place] has him on Lasix 80 mg twice daily. Not getting much help from Be[facility] Cutter lately. Takes long time to get any response from that office. Nurse asking PCP if patient could be put on another or a different diuretic? He knows his kidney function is not great, Bezel Cutter wants him to see Silica Spray Mixer. Patient uses [facility] for his pharmacy. His next appt with Bezel Cutter is mid September.Patient is concerned since his [...] at bedtime. 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 Use to check [...] diastolic C (more content not included)... Normal [facility] Basic Metabolic Profile (BMP )on 09-06-2025 BUN/CRE 23.7 RATIO High 09-05 [facility] Comment on above: Performed By: #### L 503.7505, L500.2500, L100.0500 #### [facility] [address] [place], [address] Calcium [Mass/Vol] 10.6 mg/dL Normal 7.6-11.0 [facility] Comment on above: Performed By: #### L 503.7505, L500.2500, L100.0500 #### [facility] [address] [place], [address] Chloride [Moles/Vol] 105 mmol/L Normal 98-108 [facility] Comment on above: Performed By: #### L 503.7505, L500.2500, L100.0500 #### [facility] [address] [place], [address] CO2 [Moles/Vol] 26.7 mmol/L Normal 21.0-32.0 [facility] Comment on above: Performed By: #### L 503.7505, L500.2500, L100.0500 #### [facility] [address] [place], [address] Creatinine [Mass/Vol] 3.15 mg/dL High 0.70-1.20 [facility] Comment on above: Performed By: #### L 503.7505, L500.2500, L100.0500 #### [facility] [address] [place], [address] GAP 12 Normal 5-15 [facility] Comment on above: Performed By: #### L 503.7505, L500.2500, L100.0500 #### [facility] [address] [place], [address] GFR/1.73 sq M.predicted among non-blacks MDRD (S/P/Bld) [Vol rate/Area] 18 mL/min/{1.73_m2} Low >60 [facility] Comment on above: Result Comment: mL/m in/1.73m2 CKD-EPI Creatinine Equation (2020) Performed By: #### L 503.7505, L500.2500, L100.0500 #### [facility] [address] [place], [address] Glucose [Mass/Vol] 81 mg/dL Normal 70-99 [facility] Comment on above: Performed By: #### L 503.7505, L500.2500, L100.0500 #### [facility] [address] [place], [address] Potassium [Moles/Vol] 4.8 mmol/L Normal 3.3-5.1 [facility] Comment on above: Performed By: #### L 503.7505, L500.2500, L100.0500 #### [facility] [address] [place], [address] Sodium [Moles/Vol] 143 mmol/L Normal 133-145 [facility] Comment on above: Performed By: #### L 503.7505, L500.2500, L100.0500 #### [facility] [address] [place], [address] Urea nitrogen [Mass/Vol] 75 mg/dL High 4-19 [facility] Comment on above: Performed By: #### L 503.7505, L500.2500, L100.0500 #### [facility] [address] [place], [address] CBC-Complete Blood Cnt No Di ffon 09-06-2025 Erythrocyte distribution width (RBC) [Ratio] 14.9 % High 11.6-14.6 [facility] Comment on above: Performed By: #### L 503.7505, L500.2500, L100.0500 #### [facility] [address] [place], [address] Hematocrit (Bld) [Volume fraction] 28.2 % Low 40-54 [facility] Comment on above: Performed By: #### L 503.7505, L500.2500, L100.0500 #### [facility] [address] [place], [address] Hemoglobin (Bld) [Mass/Vol] 8.3 g/dL Low 13.0-16.5 [facility] Comment on above: Performed By: #### L 503.7505, L500.2500, L100.0500 #### [facility] [address] [place], [address] MCH (RBC) [Entitic mass] 24.9 pg Low 27.0-32.0 [facility] Comment on above: Performed By: #### L 503.7505, L500.2500, L100.0500 #### [facility] [address] [place], [address] MCHC (RBC) [Mass/Vol] 29.4 g/dL Low 32-36 [facility] Comment on above: Performed By: #### L 503.7505, L500.2500, L100.0500 #### [facility] [address] [place], [address] MCV (RBC) [Entitic vol] 84.4 fL Normal 80-94 [facility] Comment on above: Performed By: #### L 503.7505, L500.2500, L100.0500 #### [facility] [address] [place], [address] Platelet mean volume (Bld) [Entitic vol] 13.4 fL High 6.2-12.0 [facility] Comment on above: Performed By: #### L 503.7505, L500.2500, L100.0500 #### [facility] [address] [place], [address] Platelets (Bld) [#/Vol] 135 10*3/uL Low 150-450 [facility] Comment on above: Performed By: #### L 503.7505, L500.2500, L100.0500 #### [facility] [address] [place], [address] RBC (Bld) [#/Vol] 3.34 10*6/uL Low 4.6-6.2 [facility] Comment on above: Performed By: #### L 503.7505, L500.2500, L100.0500 #### [facility] [address] [place], [address] RDW SD 45.7 fl High 35.1-43.9 [facility] Comment on above: Performed By: #### L 503.7505, L500.2500, L100.0500 #### [facility] [address] [place], [address] WBC (Bld) [#/Vol] 5.9 10*3/uL Normal 4.4-11.0 [facility] Comment on above: Performed By: #### L 503.7505, L500.2500, L100.0500 #### [facility] [address] [place], [address] Pro- Brain NATRIURETIC PEPTI Sugey 09-06-2025 Natriuretic peptide B (Bld) [Mass/Vol] 3183 pg/mL High <=1800 [facility] Comment on above: Result Comment: Hear t Failure Unlikely: < 300 pg/mL Heart Failure Likely < 50 Years: > 450 pg/mL 50-75 Years: > 900 pg/mL >75 Years: > 1800 pg/mL Performed By: #### L 503.7505, L500.2500, L100.0500 #### [facility] [address] [place], [address] [facility] FEDERICO HU ([id number]) 1935 M Date Time Provider Department 08/30/25 NITHIN ACEVEDO INTMWS During your visit today, we recorded the following information about you: Homer Smith LPN 08/30/2025 2:04 PM Signed Moises from [facility] Home Health calling he is going to extend penitentiary visits 1 visit weekly for 2 weeks, has concerns with diuretics, has call to patient Bezel Cutter. He will fax form for PCP to [...] at bedtime. 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 Use to check [...] Encounter Status:Closed by NITHIN ACEVEDO on 08/30/25 [facility] 08-15-2025 [facility] Telephone (SamatoaDRU) FEDERICO HU ([id number]) 1935 M Date Time Provider Department 08/15/25 NITHIN ACEVEDO COUM During your visit today, we recorded the following information about you: Ana Valderrama, CEFERINO 08/15/2025 10:21 AM Signed Ellen COONEY with [facility] is calling with an FYI that patients blood pressure is just slight low at 112/49 and 115/47 and that patient has had a 6lb weight gain in the past week. therapist note that she let Vaughn his [facility] nurse know and he will recheck tomorrow and call either pcp or watch guard gate with update. Allergies As of Date: 08/15/2025 [...] at bedtime. 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 Use to check blood sugars at least 4 times a day - Blood-Glucose Sensor (DEXCOM G7 SENSOR) [facility] Dx: E11.49. ?Insulin: Yes. Apply new [...] Encounter Status:Closed by GARRICK ANA on 08/15/25 [facility]10[facility]20[facility] FEDERICO HU ([id number]) 1935 M Date Time Provider Department 08/10/25 KATHERIN MCKINNON INTMWS During your visit today, we recorded the following information about you: Homer Smith LPN 08/10/2025 3:14 PM Signed Moises from [facility] Home Health calling would like to extend penitentiary visits beginning next week, 1 visit weekly for 3 weeks. 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 He has wound care orders. Asking for new verbal orders for the penitentiary visits. Patient has large abdomen and has red, excoriated area under abdominal fold. Asking for Nystatin powder rx to be sent to [facility] pharmacy. Please advise Katherin Mckinnon APRN.[facility] 08/10/2025 3:53 PM Signed Mojgan for penitentiary visits Katherin Mckinnon APRN.Daxa Paul LPN 08/10/2025 4:05 PM Signed Moises/[facility] notified. Daxa Morin LPN Allergies As of [...] at bedtime. 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 Use to check [...] day. Encounter (more content not included)... Normal [facility] FERRITIN [CCL]on 08-10-2025 Ferritin [Mass/Vol] 32.2 ng/mL Normal 30.3-565.7 [facility] Comment on above: Result Comment: [facility] [address] [place] [address] Joe Goldstein III, M.D. [id number] Performed By: #### 2 08866 #### [facility],[address] [place] [address] BMP with eGFRon 08-09-2025 AGE 89 years Normal [facility] Comment on above: Performed By: #### 2 78878 #### [facility],[address] [place], [place] [id number] Anion gap [Moles/Vol] 14 mmol/L Normal 10 - 20 [facility] Comment on above: Performed By: #### 2 02769 #### [facility],[address] [place] [address] BMP with eGFR Normal [facility] Comment on above: Result Comment: BASI C METABOLIC PANEL Performed By: #### 2 68181 #### [facility],[address] [place], [place] [id number] Calcium [Mass/Vol] 10.2 mg/dL High 8.5 - 10.1 [facility] Comment on above: Performed By: #### 2 84447 #### [facility],[address] [place] [address] Chloride [Moles/Vol] 103 mmol/L Normal 98 - 107 [facility] Comment on above: Performed By: #### 2 20690 #### [facility],[address] [place] [address] CO2 [Moles/Vol] 28.5 mmol/L Normal 21.0 - 32.0 [facility] Comment on above: Performed By: #### 2 19698 #### [facility],[address] [place] [address] Creatinine [Mass/Vol] 3.64 mg/dL High 0.70 - 1.30 [facility] Comment on above: Performed By: #### 2 21199 #### [facility],[address] [place] [address] eGFR 16 ML/MINUTE Low 60 - 999 [facility] Comment on above: Performed By: #### 2 50944 #### [facility],[address] [place] [address] eGFR(AA) 19 ML/MINUTE Low 60 - 999 [facility] Comment on above: Result Comment: ACCO RDING TO THE NATIONAL KIDNEY DISEASE EDUCATION PROGRAM(NKDE), A NORMAL eGFR IS A VALUE GREATER THAN OR EQUAL TO 60 ML/MIN/1.73 SQ METERS. CHRONIC KIDNEY DISEASE: <60mL/MIN/1.73 SQ METERS KIDNEY FAILURE: <15mL/MIN/1.73 SQ METERS THIS TEST SHOULD ONLY BE USED FOR PATIENTS 18 YEARS OF AGE AND OLDER. Performed By: #### 2 21000 #### [facility],[address] [place], [place] [id number] Glucose [Mass/Vol] 143 mg/dL High 74 - 106 [facility] Comment on above: Performed By: #### 2 19995 #### [place] [id number] Potassium [Moles/Vol] 4.8 mmol/L Normal 3.5 - 5.1 [facility] Comment on above: Performed By: #### 2 55142 #### [facility],[address] [place] [address] Sodium [Moles/Vol] 141 mmol/L Normal 136 - 145 [facility] Comment on above: Performed By: #### 2 56001 #### [facility],[address] [place] [address] Urea nitrogen [Mass/Vol] 76 mg/dL High 7 - 18 [facility] Comment on above: Performed By: #### 2 12675 #### [facility],[address] [place] [address] CBC + DIFFon 08-09-2025 Baso # 0.05 x10EE3/UL Normal 0.00 - 0.10 [facility] Comment on above: Performed By: #### 2 75066 #### [facility],[address] [place] [address] Basophils/100 WBC (Bld) 0.8 % Normal 0.0 - 2.0 [facility] Comment on above: Performed By: #### 2 05364 #### [facility],[address] [place] [address] CBC + DIFF Normal [facility] Comment on above: Result Comment: CBC- COMPLETE BLOOD COUNT Performed By: #### 2 86919 #### [facility],[address] [place] [address] EO # 0.18 x10EE3/UL Normal 0.00 - 0.50 [facility] Comment on above: Performed By: #### 2 01159 #### [facility],[address] [place] [address] Eosinophils/100 WBC (Bld) 2.7 % Normal 0.0 - 7.0 [facility] Comment on above: Performed By: #### 2 33068 #### [facility],[address] [place] [address] Erythrocyte distribution width (RBC) [Ratio] 14.9 % Normal 12.0 - 15.6 [facility] Comment on above: Performed By: #### 2 32062 #### [facility],[address] [place] [address] Hematocrit (Bld) [Volume fraction] 28.7 % Low 40.0 - 52.0 [facility] Comment on above: Performed By: #### 2 35195 #### [facility],[address] [place] [address] Hemoglobin (Bld) [Mass/Vol] 9.0 g/dL Low 13.0 - 17.5 [facility] Comment on above: Performed By: #### 2 67271 #### [facility],[address] [place] [address] Lymph # 0.77 x10EE3/UL Low 0.80 - 2.80 [facility] Comment on above: Performed By: #### 2 20721 #### [facility],[address] [place] [address] Lymphocytes/100 WBC (Bld) 11.6 % Low 20.0 - 45.0 [facility] Comment on above: Performed By: #### 2 08267 #### [facility],[address] [place] [address] MANUAL DIFF N/A Normal [facility] Comment on above: Performed By: #### 2 35205 #### [facility],[address] [place] [address] MCH (RBC) [Entitic mass] 26 pg Low 27 - 33 [facility] Comment on above: Performed By: #### 2 30818 #### [facility],[address] [place] [address] MCHC 31 X10 3 Low 32 - 36 [facility] Comment on above: Performed By: #### 2 96245 #### [facility],[address] [place] [address] MCV (RBC) [Entitic vol] 82 fL Normal 81 - 98 [facility] Comment on above: Performed By: #### 2 25968 #### [facility],[address] [place] [address] [place] # 0.76 x10EE3/UL Normal 0.20 - 1.00 [facility] Comment on above: Performed By: #### 2 28798 #### [facility],[address] [place], [place] [address] MONOS % 11.6 % High 0.0 - 10.0 [facility] Comment on above: Performed By: #### 2 68022 #### [facility],[address] [place] [address] Morphology Mumtaz (Bld) [Interp] N/A Normal [facility] Comment on above: Performed By: #### 2 23032 #### [facility],[address] [place] [address] 14748 Neut # 4.85 x10EE3/UL Normal 1.50 - 7.10 [facility] Comment on above: Performed By: #### 2 77515 #### [facility],[address] [place] [address] 73157 Neutrophils/100 WBC (Bld) 73.4 % Normal 46.0 - 76.0 [facility] Comment on above: Performed By: #### 2 57899 #### [facility],[address] [place] [address] 27380 PLATELET 171 x10EE3/UL Normal 150 - 450 [facility] Comment on above: Performed By: #### 2 37946 #### [facility],[address] [place] [address] 54241 Platelet mean volume (Bld) [Entitic vol] 11.1 fL High 6.4 - 10.5 [facility] Comment on above: Result Comment: AUTO MATED DIFFERENTIAL Performed By: #### 2 28509 #### [facility],[address] [place] [address] 11136 RBC 3.50 x 10EE6/UL Low 4.50 - 6.00 [facility] Comment on above: Performed By: #### 2 15919 #### [facility],[address] [place] [address] 82348 WBC 6.6 x 10EE3/UL Normal 4.5 - 10.8 [facility] Comment on above: Performed By: #### 2 02209 #### [facility],[address] [place] [address] 52366 Ferritin SerPl-mCncon 2024 Ferritin [Mass/Vol] 32.2 ng/mL Normal 30.3-565.7 [facility] Comment on above: Order Comment: Speci men Type: BLOOD SPECIMEN Ordering Facility: [facility] Address: [address] [place] [address] Performed By: #### 2 276-4 #### [facility] CLIA [id number] [address] [place] [address] [place] [facility] IRON AND TIBCon 08-09-2025 %SATURATION 10 % Normal [facility] Comment on above: Performed By: #### 2 34257 #### [facility],[address] [place] [address] 90788 Iron [Mass/Vol] 32 ug/dL Low 65 - 175 [facility] Comment on above: Performed By: #### 2 26169 #### [facility],[address] [place] [address] 80994 TIBC 314 ug/dl Normal 250 - 450 [facility] Comment on above: Performed By: #### 2 99464 #### [facility],[address] [place] [address] 25932 UIBC 282 ug/dL Normal 155 - 355 [facility] Comment on above: Performed By: #### 2 85527 #### [facility],[address] [place] [address] 38581 NT-proBNPon 08-09-2025 Natriuretic peptide B (Bld) [Mass/Vol] 3185 pg/mL High 0 - 450 [facility] Comment on above: Performed By: #### 2 30062 #### Vladimir [facility],[address] [place] [address] John 08-05-2025 CNPN Telephone (INTMWS) FEDERICO HU ([id number]) 1935 M Date Time Provider Department 08/05/25 NITHIN ACEVEDO INTMWS During your visit today, we recorded the following information about you: Deisi Morelos RN 08/05/2025 3:31 PM Signed Moises from [facility] calls and states that when patient [...] Patient's kidney function is decreased. Patient has watch guard gate appointment with Dr. Strickland on Friday08/09/2025 View External Labs - Chemistry [ID [id number]] Dinora Melissa MD 08/06/2025 2:05 PM Signed [...] 08/08/2025 10:19 AM Signed Left message for Moises/[facility] to call and speak to nurse. Krissy Precaido LPN, RN 08/08/2025 2:41 PM Signed Moises with [facility] calls back and provider message below [...] at bedtime. 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 Use to check blood sugars at least 4 times a day - Blood-Glucose Sensor (DEXCOM G7 SENSOR) [facility] Dx: E11.49. ?Insulin: Yes. Apply new [...] 12/25/2006 11 (more content not included)... Normal [facility] John 08-04-2025 CNPN Telephone (INTWS) FEDERICO HU ([id number]) 1935 M Date Time Provider Department 08/04/25 NITHIN ACEVEDO INTBearWS During your visit today, we recorded the following information about you: Krissy Amor RN 08/04/2025 8:28 AM Signed Coco with [facility] calls to request a copy of most recent OV notes from PCP. Faxed 07/26/2025 OV notes to [phone] as requested. Krissy Amor RN Allergies As [...] at bedtime. 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 Use to check [...] Encounter Status:Closed by KRISSY AMOR on 08/04/25 [facility] CNPNon 08-03-2025 [facility] Telephone (INTMWS) FEDERICO HU ([id number]) 1935 M Date Time Provider Department 08/03/25 NITHIN ACEVEDO INTWS During your visit today, we recorded the following information about you: Ciera Conner LPN 08/03/2025 11:16 AM Signed Fax rec'd from [employer] for PA on dexcom G7 sensors. This [...] at bedtime. 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 Use to check blood sugars at least 4 times a day - Blood-Glucose Sensor (DEXCOM G7 SENSOR) [facility] Dx: E11.49. ?Insulin: Yes. Apply new [...] Status:Closed by CIERA CONNER on 08/03/25 Normal [facility] Telephone (INTMWS) FEDERICO HU ([id number]) 1935 M Date Time Provider Department 08/03/25 NITHIN ACEVEDO INTMWS During your visit today, we recorded the following information about you: Viet López MA 08/03/2025 9:45 AM Signed Type of form: Home Health Care Orders Form received via fax When form is completed, Fax form to [phone] Form has been forwarded to Physician Desk: CHASE Bliss Victor H, MD 08/13/2025 1:24 PM Signed Done. Allergies As of Date: 08/03/2025 Noted Allergy Reaction FEXOFENADINE 11/05/2024 16 - Unknown PROSCAR (FINASTERIDE) 07/02/2010 2 - Rash Date Reviewed: 07/26/2025 Reviewed by: Daxa Morin LPN - Fully Assessed Reason for Visit: Forms [473] Cmt: [facility] wound Prescriptions as of 08/13/2025 - [...] at bedtime. 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 Use to check [...] Status:Closed by NITHIN ACEVEDO on 08/13/25 Normal [facility] Anion gap in Serum or Plasma Ordered By: Nithin Acevedo on 08-02-2025 Anion gap [Moles/Vol] 13 mmol/L - [facility] BUN/creatinine ratioOrdered By: Nithin Acevedo on 08-02-2025 Urea nitrogen/Creatinine [Mass ratio] 20.1 mg/mg High 09-05 [facility] Basic Metabolic Profile (BMP )on 08-02-2025 BUN/CRE 20.1 RATIO High 09-05 [facility] Comment on above: Performed By: #### L 499.0043 #### [facility] Laboratory [address] [place], [address] Calcium [Mass/Vol] 11.0 mg/dL Normal 7.6-11.0 [facility] Comment on above: Performed By: #### L 499.0043 #### [facility] [address] [place], [address] Chloride [Moles/Vol] 105 mmol/L Normal 98-108 [facility] Comment on above: Performed By: #### L 499.0043 #### [facility] [address] [place], [address] CO2 [Moles/Vol] 25.0 mmol/L Normal 21.0-32.0 [facility] Comment on above: Performed By: #### L 499.0043 #### [facility] [address] [place], [address] Creatinine [Mass/Vol] 3.12 mg/dL High 0.70-1.20 [facility] Comment on above: Performed By: #### L 499.0043 #### [facility] [address] [place], [address] GAP 13 Normal 5-15 [facility] Comment on above: Performed By: #### L 499.0043 #### [facility] [address] [place], [address] GFR/1.73 sq M.predicted among non-blacks MDRD (S/P/Bld) [Vol rate/Area] 18 mL/min/{1.73_m2} Low >60 [facility] Comment on above: Result Comment: mL/m in/1.73m2 CKD-EPI Creatinine Equation (2020) Performed By: #### L 499.0043 #### [facility] [address] [place], [address] Glucose [Mass/Vol] 161 mg/dL High 70-99 [facility] Comment on above: Performed By: #### L 499.0043 #### [facility] [address] [place], [address] Potassium [Moles/Vol] 4.5 mmol/L Normal 3.3-5.1 [facility] Comment on above: Performed By: #### L 499.0043 #### [facility] [address] [place], [address] Sodium [Moles/Vol] 143 mmol/L Normal 133-145 [facility] Comment on above: Performed By: #### L 499.0043 #### [facility] [address] [place], [address] Urea nitrogen [Mass/Vol] 63 mg/dL High 4-19 [facility] Comment on above: Performed By: #### L 499.0043 #### [facility] [address] [place], [address] CBC-Complete Blood Cnt No Di ffon 08-02-2025 Erythrocyte distribution width (RBC) [Ratio] 14.9 % High 11.6-14.6 [facility] Comment on above: Performed By: #### L 500.2500, L501.9985, L500.4100, L100.0500 #### [facility] [address] [place], [address] Hematocrit (Bld) [Volume fraction] 28.9 % Low 40-54 [facility] Comment on above: Performed By: #### L 500.2500, L501.9985, L500.4100, L100.0500 #### [facility] [address] [place], [address] Hemoglobin (Bld) [Mass/Vol] 8.4 g/dL Low 13.0-16.5 [facility] Comment on above: Performed By: #### L 500.2500, L501.9985, L500.4100, L100.0500 #### [facility] [address] [place], [address] MCH (RBC) [Entitic mass] 25.7 pg Low 27.0-32.0 [facility] Comment on above: Performed By: #### L 500.2500, L501.9985, L500.4100, L100.0500 #### [facility] [address] [place], [address] MCHC (RBC) [Mass/Vol] 29.1 g/dL Low 32-36 [facility] Comment on above: Performed By: #### L 500.2500, L501.9985, L500.4100, L100.0500 #### [facility] [address] [place], [address] MCV (RBC) [Entitic vol] 88.4 fL Normal 80-94 [facility] Comment on above: Performed By: #### L 500.2500, L501.9985, L500.4100, L100.0500 #### [facility] [address] [place], [address] Platelet mean volume (Bld) [Entitic vol] 13.3 fL High 6.2-12.0 [facility] Comment on above: Performed By: #### L 500.2500, L501.9985, L500.4100, L100.0500 #### [facility] [address] [place], [address] Platelets (Bld) [#/Vol] 128 10*3/uL Low 150-450 [facility] Comment on above: Performed By: #### L 500.2500, L501.9985, L500.4100, L100.0500 #### [facility] [address] [place], [address] RBC (Bld) [#/Vol] 3.27 10*6/uL Low 4.6-6.2 [facility] Comment on above: Performed By: #### L 500.2500, L501.9985, L500.4100, L100.0500 #### [facility] [address] [place], [address] RDW SD 47.9 fl High 35.1-43.9 [facility] Comment on above: Performed By: #### L 500.2500, L501.9985, L500.4100, L100.0500 #### [facility] [address] [place], [address] WBC (Bld) [#/Vol] 5.2 10*3/uL Normal 4.4-11.0 [facility] Comment on above: Performed By: #### L 500.2500, L501.9985, L500.4100, L100.0500 #### [facility] [address] [place], [address] [facility] Telephone (INTMWS) FEDERICO HU ([id number]) 1935 Date Time Provider Department 08/02/25 NITHIN ACEVEDO INTWS During your visit today, we recorded the following information about you: Bear Good, RN 08/02/2025 10:00 AM Signed Moises- nurse- [facility] reports pt came out of hospital with [...] - Fully Assessed Reason for Visit: FYI- [facility] Nurse POC wound care [Other] Prescriptions as of 08/02/2025 - dapagliflozin propanediol (FARXIGA) 5 mg tablet Take 5 mg by mouth daily at bedtime. - furosemide (LASIX) 40 mg tablet Take 2 tablets by mouth every morning AND 1 tablet every evening. - doxazosin (CARDURA) 2 mg tablet Take 1 tablet by mouth daily at bedtime. 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 Use to check blood sugars at least 4 times a day - Blood-Glucose Sensor (DEXCOM G7 SENSOR) [facility] Dx: E11.49. ?Insulin: Yes. Apply new [...] Status:Closed by Bear GOOD on 08/02/25 Normal [facility] Telephone (Sel[employer]) FEDERICO HU ([id number]) 1935 M Date Time Provider Department 08/02/25 NITHIN ACEVEDO During your visit today, we recorded the following information about you: Ana Valderrama, RN 08/02/2025 5:45 PM Signed Ellen with [facility] OT HH is calling to let pcp [...] at bedtime. 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 Use to check blood sugars at least 4 times a day - Blood-Glucose Sensor ([employer] G7 SENSOR) [facility] Dx: E11.49. ?Insulin: Yes. [...] Status:Closed by ANA VALDERRAMA on 08/02/25 Normal [facility] Calculated very low density lipoprotein (VLDL) cholesterol measurementOrdered By: Nithin Acevedo on 08-02-2025 Calculated very low density lipoprotein (VLDL) cholesterol measurement 14 mg/dL 5-40 [facility] Carbon dioxide, total [Moles /volume] in Central venous bloodOrdered By: Nithin Acevedo on 08-02-2025 CO2 [Moles/Vol] 25.0 mmol/L 21.0-32.0 [facility] Chloride assayOrdered By: Tete Acevedo on 08-02-2025 Chloride [Moles/Vol] 105 mmol/L 98-108 [facility] Erythrocyte distribution wid th ratioOrdered By: Nithin Acevedo on 08-02-2025 Erythrocyte distribution width (RBC) [Ratio] 14.9 % High 11.6-14.6 [facility] Erythrocyte distribution wid th standard deviationOrdered By: Nithin Acevedo on 08-02-2025 Erythrocyte distribution width (RBC) [Ratio] 47.9 fl High 35.1-43.9 [facility] Glomerular filtration rate ( GFR) estimation/1.73 sq m using serum, plasma, or whole bOrdered By: Nithin Acevedo on 08-02-2025 GFR/1.73 sq M.predicted among non-blacks MDRD (S/P/Bld) [Vol rate/Area] 18 mL/min/{1.73_m2} Low >60 [facility] Comment on above: mL/min/1.73m2 CKD-EP I Creatinine Equation (2020) Hematocrit Auto (Bld) [Volum e fraction]Ordered By: Nithin Acevedo on 08-02-2025 Hematocrit (Bld) [Volume fraction] 28.9 % Low 40-54 [facility] Hemoglobin A1con 08-02-2025 HbA1c (Bld) [Mass fraction] 6.5 % High <=5.6 [facility] Comment on above: Result Comment: Norm al < 5.7 % Prediabetic 5.7 - 6.4 % Diabetic >or= 6.5 % Please note range changes. Performed By: #### L 499.0043 #### [facility] [address] [place] [address], [address] Hemoglobin A1c percentageOrd ered By: Nithin Acevedo on 08-02-2025 HbA1c (Bld) [Mass fraction] 6.5 % High <5.7 [facility] Comment on above: Normal < 5.7 % Predi abetic 5.7 - 6.4 % Diabetic >or= 6.5 % Please note range changes. Hemoglobin measurementOrdere d By: Nithin Acveedo on 08-02-2025 Hemoglobin (Bld) [Mass/Vol] 8.4 g/dL Low 13.0-16.5 [facility] LDL calc ser/plasOrdered By: Nithin Acevedo on 08-02-2025 Cholesterol in LDL [Mass/Vol] 19 mg/dL [facility] Comment on above: Xneovqdatu=836-795 m g/dL & Higher Xvno=789 mg/dL or greaterFriedwald Equation for LDL-C Lipid Profileon 08-02-2025 CHOL:HDL 1.90 Normal [facility] Comment on above: Performed By: #### L 499.0043 #### [facility] [address] [facility] [place], [address] (080) Cholesterol [Mass/Vol] 71 mg/dL Normal <=200 [facility] Comment on above: Result Comment: Chol esterol level, Desirable <200 mg/dL Borderline high cholesterol 200-239 mg/dL High cholesterol >=240 mg/dL Recommendations of the NCEP Adult Treatment Panel for the following risk-cutoff thresholds for the [place] population. Performed By: #### L 499.0043 #### [facility] [address] [place], [address] Cholesterol in HDL [Mass/Vol] 38 mg/dL Low [facility] Comment on above: Result Comment: Jazmin onal Cholesterol Education Program (NCEP) guidelines: <40 mg/dL: Low HDL-cholesterol (major risk factor for CHD) >= 60 mg/dL: High HDL-cholesterol (negative risk factor for CHD) HDL-cholesterol is affected by a number of factors, e.g. smoking, exercise, hormones, sex and age. Performed By: #### L 499.0043 #### [facility] [address] [place], [address] (229) Cholesterol in LDL [Mass/Vol] 19 mg/dL Normal [facility] Comment on above: Result Comment: Bord ebjnbh=464-823 mg/dL Higher Fixk=029 mg/dL or greater Friedwald Equation for LDL-C Performed By: #### L 499.0043 #### [facility] [address] [place], [place], [address] Cholesterol in VLDL [Mass/Vol] 14 mg/dL Normal 5-40 [facility] Comment on above: Performed By: #### L 499.0043 #### [facility] [address] [place], [place], [address] Triglyceride [Mass/Vol] 71 mg/dL Normal [facility] Comment on above: Result Comment: The drugs N-Acetylcysteine and Metamizole may falsely depress this assay. Normal range: <150 mg/dL Borderline High: 150-199 mg/dL High: 200-499 mg/dL Very High: >500 mg/dL Performed By: #### L 499.0043 #### [facility] [address] [place], [place], [address] MCV (mean corpuscular volume ) determinationOrdered By: Nithin Acevedo on 08-02-2025 MCV (RBC) [Entitic vol] 88.4 fL 80-94 [facility] Mean corpuscular hemoglobin (MCH) determinationOrdered By: Nithin Acevedo on 08-02-2025 MCH (RBC) [Entitic mass] 25.7 pg Low 27.0-32.0 [facility] Mean corpuscular hemoglobin concentration (MCHC) determinationOrdered By: Nithin Acevedo on 08-02-2025 MCHC (RBC) [Mass/Vol] 29.1 g/dL Low 32-36 [facility] Mean platelet volume determi nationOrdered By: Nithin Acevedo on 08-02-2025 Platelet mean volume (Bld) [Entitic vol] 13.3 fL High 6.2-12.0 [facility] Platelet countOrdered By: Tete Acevedo on 08-02-2025 Platelets (Bld) [#/Vol] 128 10*3/uL Low 150-450 [facility] Potassium measurement (mass/ volume)Ordered By: Nithin Acevedo on 08-02-2025 Potassium (Unsp spec) [Mass/Vol] 4.5 mmol/L 3.3-5.1 [facility] RBC Auto (Bld) [#/Vol]Ordere d By: Nithin Acevedo on 08-02-2025 RBC (Bld) [#/Vol] 3.27 10*6/uL Low 4.6-6.2 [facility] Screening total cholesterol/ high density lipoprotein (HDL) cholesterol ratioOrdered By: Nithin Acevedo on 08-02-2025 Cholesterol.total/Cho lesterol in HDL [Mass ratio] 1.90 {ratio} [facility] Serum creatinine measurement (mass/volume)Ordered By: Nithin Acevedo on 08-02-2025 Creatinine [Mass/Vol] 3.12 mg/dL High 0.70-1.20 [facility] Serum glucose measurement (m ass/volume)Ordered By: Nithin Acevedo on 08-02-2025 Glucose [Mass/Vol] 161 mg/dL High 70-99 [facility] Serum or plasma calcium karthik urement (mass/volume)Ordered By: Nithin Acevedo on 08-02-2025 Calcium [Mass/Vol] 11.0 mg/dL 7.6-11.0 [facility] Serum or plasma cholesterol in HDL measurement (mass/volume)Ordered By: Nithin Acevedo on 08-02-2025 Cholesterol in HDL [Mass/Vol] 38 mg/dL Low >40 [facility] Comment on above: National Cholesterol Education Program (NCEP) guidelines:<40 mg/dL: Low HDL-cholesterol (major risk factor for CHD)>= 60 mg/dL: High HDL-cholesterol (negative risk factor for CHD)HDL-cholesterol is affected by a number of factors, e.g. smoking, exercise, hormones, sex and age. Serum or plasma cholesterol measurement (mass/volume)Ordered By: Nithin Acevedo on 08-02-2025 Cholesterol [Mass/Vol] 71 mg/dL <201 [facility] Comment on above: Cholesterol level, D esirable <200 mg/dLBorderline high cholesterol 200-239 mg/dLHigh cholesterol >=240 mg/dLRecommendations of the NCEP Adult Treatment Panel for the following risk-cutoff thresholds for the [place] population. Serum or plasma urea nitroge n measurement (mass/volume)Ordered By: Nithin Acevedo on 08-02-2025 Urea nitrogen [Mass/Vol] 63 mg/dL High 4-19 [facility] Sodium levelOrdered By: Josh Acevedo on 08-02-2025 Sodium [Moles/Vol] 143 mmol/L 133-145 [facility] Triglycerides measurementOrd ered By: Nithin Acevedo on 08-02-2025 Triglyceride [Mass/Vol] 71 mg/dL <199 [facility] Comment on above: The drugs N-Acetylcy steine and Metamizole may falsely depress this assay. Normal range: <150 mg/dLBorderline High: 150-199 mg/dLHigh: 200-499 mg/dLVery High: >500 mg/dL White blood cell (WBC) count Ordered By: Nithin Acevedo on 08-02-2025 WBC (Bld) [#/Vol] 5.2 10*3/uL 4.4-11.0 [facility] CNPNon 07-28-2025 CNPN Telephone (INTMWS) FEDERICO HU ([id number]) 1935 M Date Time Provider Department 07/28/25 NITHIN ACEVEDO INTWS During your visit today, we recorded the following information about you: Krissy Amor RN 07/28/2025 3:50 PM Signed Chepe PT calling from [facility] to report plan of care for patient [...] at bedtime. 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 Use to check blood sugars at least 4 times a day - Blood-Glucose Sensor (DEXCOM G7 SENSOR) [facility] Dx: E11.49. ?Insulin: Yes. Apply new [...] Status:Closed by KRISSY AMOR on 07/28/25 [facility] C[facility] Telephone (INTMWS) FEDERICO HU ([id number]) 1935 M Date Time Provider Department 07/27/25 NITHIN ACEVEDO INTMWS During your visit today, we recorded the following information about you: Deisi Morelos RN 07/27/2025 3:44 PM Signed Niya calling from [facility] to report plan of care for patient and penitentiary will visit patient 2 times a week for 2 weeks and 1 time a week for 1 weeks. long-term will work with patient on continuing education [...] 12:01 PM Signed Order called back to [facility]. Allergies As of Date: 07/27/2025 Noted Allergy [...] at bedtime. 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 Use to check blood sugars at least 4 times a day - Blood-Glucose Sensor (DEXCOM G7 SENSOR) [facility] Dx: E11.49. ?Insulin: Yes. Apply new [...] Status:Closed by CIERA CONNER on 07/28/25 Normal [facility] Basic Metabolic Profile (BMP )on 07-26-2025 BUN Normal 4-19 [facility] Comment on above: Result Comment: Canc elled via OM: Order cancelled - Patient discharged Performed By: #### L 499.0043 #### [facility] [address] [place], [address] BUN/CRE Normal 10-20 [facility] Comment on above: Result Comment: Canc elled via OM: Order cancelled - Patient discharged Performed By: #### L 499.0043 #### [facility] [address] [place], [address] Calcium Normal 7.6-11.0 [facility] Comment on above: Result Comment: Canc elled via OM: Order cancelled - Patient discharged Performed By: #### L 499.0043 #### [facility] [address] [place], [address] CL Normal 98-108 [facility] Comment on above: Result Comment: Canc elled via OM: Order cancelled - Patient discharged Performed By: #### L 499.0043 #### [facility] [address] [place], [address] CO2 Normal 21.0-32.0 [facility] Comment on above: Result Comment: Canc elled via OM: Order cancelled - Patient discharged Performed By: #### L 499.0043 #### [facility] [address] [place], [address] CREAT,SERUM Normal 0.70-1.20 [facility] Comment on above: Result Comment: Canc elled via OM: Order cancelled - Patient discharged Performed By: #### L 499.0043 #### [facility] [address] [place], [address] eGFR Normal >60 [facility] Comment on above: Result Comment: Canc elled via OM: Order cancelled - Patient discharged Performed By: #### L 499.0043 #### [facility] [address] [place], [address] GAP Normal 5-15 [facility] Comment on above: Result Comment: Canc elled via OM: Order cancelled - Patient discharged Performed By: #### L 499.0043 #### [facility] [address] [place], [address] GLU Normal 70-99 [facility] Comment on above: Result Comment: Canc elled via OM: Order cancelled - Patient discharged Performed By: #### L 499.0043 #### [facility] [address] [place], [address] Potassium Normal 3.3-5.1 [facility] Comment on above: Result Comment: Canc elled via OM: Order cancelled - Patient discharged Performed By: #### L 499.0043 #### [facility] [address] [place], [address] Basic Metabolic Profile (BMP) Normal 133-145 [facility] Comment on above: Result Comment: Canc elled via OM: Order cancelled - Patient discharged Performed By: #### L 499.0043 #### [facility] [address] [place], [address] CBC W/Diff, Automatedon 09-0 9-2024 Absolute Neut Normal 2.0-7.7 [facility] Comment on above: Result Comment: Canc elled via OM: Order cancelled - Patient discharged Performed By: #### L 499.0043 #### [facility] [address] [place], [address] HCT Normal 40-54 [facility] Comment on above: Result Comment: Canc elled via OM: Order cancelled - Patient discharged Performed By: #### L 499.0043 #### [facility] [address] [place], [address] HGB Normal 13.0-16.5 [facility] Comment on above: Result Comment: Canc elled via OM: Order cancelled - Patient discharged Performed By: #### L 499.0043 #### [facility] [address] [place], [address] MCH Normal 27.0-32.0 [facility] Comment on above: Result Comment: Canc elled via OM: Order cancelled - Patient discharged Performed By: #### L 499.0043 #### [facility] [address] [place], [address] MCHC Normal 32-36 [facility] Comment on above: Result Comment: Canc elled via OM: Order cancelled - Patient discharged Performed By: #### L 499.0043 #### [facility] [address] [place], [address] MCV Normal 80-94 [facility] Comment on above: Result Comment: Canc elled via OM: Order cancelled - Patient discharged Performed By: #### L 499.0043 #### [facility] [address] [place], [address] NEUT% Normal 47-70 [facility] Comment on above: Result Comment: Canc elled via OM: Order cancelled - Patient discharged Performed By: #### L 499.0043 #### [facility] [address] [place], [address] PLT Normal 150-450 [facility] Comment on above: Result Comment: Canc elled via OM: Order cancelled - Patient discharged Performed By: #### L 499.0043 #### [facility] [address] [place], [address] RBC Normal 4.6-6.2 [facility] Comment on above: Result Comment: Canc elled via OM: Order cancelled - Patient discharged Performed By: #### L 499.0043 #### [facility] [address] [place], [address] RDW CV Normal 11.6-14.6 [facility] Comment on above: Result Comment: Canc elled via OM: Order cancelled - Patient discharged Performed By: #### L 499.0043 #### [facility] [address] [place], [address] RDW SD Normal 35.1-43.9 [facility] Comment on above: Result Comment: Canc elled via OM: Order cancelled - Patient discharged Performed By: #### L 499.0043 #### [facility] [address] [place], [address] WBC Normal 4.4-11.0 [facility] Comment on above: Result Comment: Canc elled via OM: Order cancelled - Patient discharged Performed By: #### L 499.0043 #### [facility] [address] [place], [address] CNOVon 07-26-2025 CNOV Office Visit (INTMWS ) FEDERICO HU Augustine ([id number]) 1935 M Date Time Provider Department 07/26/25 [...] mg in PM). He normally followed with [facility] Cardiology, Dr. Harman Strickland. He had not seen his watch guard gate since March, having cancelled his follow up. 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 Atrial Fibrillation ([facility]) S/P Cabg X 2 Rbbb (Right Bundle Branch Block) Encounter for Monitoring Anti-Arrhythmic Therapy Ckd (Chronic Kidney Disease) Stage 4, Gfr 15-29 Ml/Min ([facility]) Chronic Diastolic Chf (Congestive Heart Failure) ([facility]) 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 doxazosin (CARDURA) 2 mg tablet Take 1 tablet by mouth daily at bedtime. Blood-Glucose Meter,Continuous (DEXCOM G7 GROOVER OPERATOR) [facility] Dx: E11.49. Insulin: Yes. Use to check blood sugars at least 4 times a day Blood-Glucose Sensor (DEXCOM G7 SENSOR) [facility] Dx: E11.49. Insulin: Yes. Apply new [...] Assistance [employer] (more content not included)... Normal [facility] GLUCOSE, BLOOD (POC)on 07-26 Glucose [Mass/Vol] 168 mg/dL Abnormal 74 - 99 mg/dL [facility] Comment on above: Location:[address], [place], [address] The Accu-Chek Inform II glucose meter has [...] Interpretation and review of laboratory results Abnormal [facility] Basic Metabolic Profile (BMP )on 07-25-2025 BUN Normal 4-19 [facility] Comment on above: Result Comment: Canc elled via OM: Order cancelled - Patient discharged Performed By: #### L 499.0043 #### [facility] [address] [place], [address] BUN/CRE Normal 10-20 [facility] Comment on above: Result Comment: Canc elled via OM: Order cancelled - Patient discharged Performed By: #### L 499.0043 #### [facility] [address] [place], [address] Calcium Normal 7.6-11.0 [facility] Comment on above: Result Comment: Canc elled via OM: Order cancelled - Patient discharged Performed By: #### L 499.0043 #### [facility] [address] [place], [address] CL Normal 98-108 [facility] Comment on above: Result Comment: Canc elled via OM: Order cancelled - Patient discharged Performed By: #### L 499.0043 #### [facility] [address] [place], [address] CO2 Normal 21.0-32.0 [facility] Comment on above: Result Comment: Canc elled via OM: Order cancelled - Patient discharged Performed By: #### L 499.0043 #### [facility] [address] [place], [address] CREAT,SERUM Normal 0.70-1.20 [facility] Comment on above: Result Comment: Canc elled via OM: Order cancelled - Patient discharged Performed By: #### L 499.0043 #### [facility] [address] [place], [address] eGFR Normal >60 [facility] Comment on above: Result Comment: Canc elled via OM: Order cancelled - Patient discharged Performed By: #### L 499.0043 #### [facility] [address] [place], [address] GAP Normal 5-15 [facility] Comment on above: Result Comment: Canc elled via OM: Order cancelled - Patient discharged Performed By: #### L 499.0043 #### [facility] [address] [place], [address] GLU Normal 70-99 [facility] Comment on above: Result Comment: Canc elled via OM: Order cancelled - Patient discharged Performed By: #### L 499.0043 #### [facility] [address] [place], [address] Potassium Normal 3.3-5.1 [facility] Comment on above: Result Comment: Canc elled via OM: Order cancelled - Patient discharged Performed By: #### L 499.0043 #### [facility] [address] [place], [address] Basic Metabolic Profile (BMP) Normal 133-145 [facility] Comment on above: Result Comment: Canc elled via OM: Order cancelled - Patient discharged Performed By: #### L 499.0043 #### [facility] [address] [place], [address] CBC W/Diff, Automatedon 09-0 8-2024 Absolute Neut Normal 2.0-7.7 [facility] Comment on above: Result Comment: Canc elled via OM: Order cancelled - Patient discharged Performed By: #### L 499.0043 #### [facility] [address] [place], [address] HCT Normal 40-54 [facility] Comment on above: Result Comment: Canc elled via OM: Order cancelled - Patient discharged Performed By: #### L 499.0043 #### [facility] [address] [place], [address] HGB Normal 13.0-16.5 [facility] Comment on above: Result Comment: Canc elled via OM: Order cancelled - Patient discharged Performed By: #### L 499.0043 #### [facility] [address] [place], [address] MCH Normal 27.0-32.0 [facility] Comment on above: Result Comment: Canc elled via OM: Order cancelled - Patient discharged Performed By: #### L 499.0043 #### [facility] [address] [place], [address] MCHC Normal 32-36 [facility] Comment on above: Result Comment: Canc elled via OM: Order cancelled - Patient discharged Performed By: #### L 499.0043 #### [facility] [address] [place], [address] MCV Normal 80-94 [facility] Comment on above: Result Comment: Canc elled via OM: Order cancelled - Patient discharged Performed By: #### L 499.0043 #### [facility] [address] [place], [address] NEUT% Normal 47-70 [facility] Comment on above: Result Comment: Canc elled via OM: Order cancelled - Patient discharged Performed By: #### L 499.0043 #### [facility] [address] [place], [address] PLT Normal 150-450 [facility] Comment on above: Result Comment: Canc elled via OM: Order cancelled - Patient discharged Performed By: #### L 499.0043 #### [facility] [address] [place], [address] RBC Normal 4.6-6.2 [facility] Comment on above: Result Comment: Canc elled via OM: Order cancelled - Patient discharged Performed By: #### L 499.0043 #### [facility] [address] [place], [address] RDW CV Normal 11.6-14.6 [facility] Comment on above: Result Comment: Canc elled via OM: Order cancelled - Patient discharged Performed By: #### L 499.0043 #### [facility] [address] [place], [address] RDW SD Normal 35.1-43.9 [facility] Comment on above: Result Comment: Canc elled via OM: Order cancelled - Patient discharged Performed By: #### L 499.0043 #### [facility] [address] [place], [address] WBC Normal 4.4-11.0 [facility] Comment on above: Result Comment: Canc elled via OM: Order cancelled - Patient discharged Performed By: #### L 499.0043 #### [facility] [address] [place], [address] [facility] FEDERICO HU ([id number]) 1935 Date Time Provider Department 07/25/25 ACEVEDO, CORTNEY INTMWS During your visit today, we recorded the following information about you: Krissy Amor RN 07/25/2025 2:27 PM Signed Clemencia with [facility] calls to ask if provider would be willing to follow their HH orders for SN, PT, and OT. Patient discharged over the weekend from [facility] after treatment for CHF exacerbation. Call back number is [phone]. CEFERINO Rodriguez Victor H, MD 07/26/2025 11:49 PM Signed Yes. Please also do wound care left leg and gluteal area. Anthony Arodn RN 07/28/2025 10:38 AM Signed Tori with [facility] called and is notified of providers message and instructions. She voices understanding, and states she will let Clemencia know. Anthony Ardon RN Allergies As of Date: 07/25/2025 Noted Allergy Reaction FEXOFENADINE 11/05/2024 16 - Unknown PROSCAR (FINASTERIDE) 07/02/2010 2 - Rash Date Reviewed: 04/01/2025 Reviewed by: Gisell Cassidy APRN.[employer] - Fully Assessed Reason for Visit: Orders [...] at bedtime. 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 Use to check [...] Status:Closed by ANTHONY ARDON on 07/28/25 Normal [facility] Basic Metabolic Profile (BMP )on 07-24-2025 BUN Normal 4-19 [facility] Comment on above: Result Comment: Canc elled via OM: Order cancelled - Patient discharged Performed By: #### L 300.3900, L500.2500, L100.0100 #### [facility] [address] [place], [address] BUN/CRE Normal 10-20 [facility] Comment on above: Result Comment: Canc elled via OM: Order cancelled - Patient discharged Performed By: #### L 300.3900, L500.2500, L100.0100 #### [facility] [address] [place], [address] Calcium Normal 7.6-11.0 [facility] Comment on above: Result Comment: Canc elled via OM: Order cancelled - Patient discharged Performed By: #### L 300.3900, L500.2500, L100.0100 #### [facility] [address] [place], [address] CL Normal 98-108 [facility] Comment on above: Result Comment: Canc elled via OM: Order cancelled - Patient discharged Performed By: #### L 300.3900, L500.2500, L100.0100 #### [facility] [address] [place], [address] CO2 Normal 21.0-32.0 [facility] Comment on above: Result Comment: Canc elled via OM: Order cancelled - Patient discharged Performed By: #### L 300.3900, L500.2500, L100.0100 #### [facility] [address] [place], [address] CREAT,SERUM Normal 0.70-1.20 [facility] Comment on above: Result Comment: Canc elled via OM: Order cancelled - Patient discharged Performed By: #### L 300.3900, L500.2500, L100.0100 #### [facility] [address] [place], [address] eGFR Normal >60 [facility] Comment on above: Result Comment: Canc elled via OM: Order cancelled - Patient discharged Performed By: #### L 300.3900, L500.2500, L100.0100 #### [facility] [address] [place], [address] GAP Normal 5-15 [facility] Comment on above: Result Comment: Canc elled via OM: Order cancelled - Patient discharged Performed By: #### L 300.3900, L500.2500, L100.0100 #### [facility] [address] [place], [address] GLU Normal 70-99 [facility] Comment on above: Result Comment: Canc elled via OM: Order cancelled - Patient discharged Performed By: #### L 300.3900, L500.2500, L100.0100 #### [facility] [address] [place], [address] Potassium Normal 3.3-5.1 [facility] Comment on above: Result Comment: Canc elled via OM: Order cancelled - Patient discharged Performed By: #### L 300.3900, L500.2500, L100.0100 #### [facility] [address] [place], [address] Basic Metabolic Profile (BMP) Normal 133-145 [facility] Comment on above: Result Comment: Canc elled via OM: Order cancelled - Patient discharged Performed By: #### L 300.3900, L500.2500, L100.0100 #### [facility] [address] [place], [address] CBC W/Diff, Automatedon 09-0 -2024 Absolute Neut Normal 2.0-7.7 [facility] Comment on above: Result Comment: Canc elled via OM: Order cancelled - Patient discharged Performed By: #### L 300.3900, L500.2500, L100.0100 #### [facility] [address] [place], [address] HCT Normal 40-54 [facility] Comment on above: Result Comment: Canc elled via OM: Order cancelled - Patient discharged Performed By: #### L 300.3900, L500.2500, L100.0100 #### [facility] [address] [place], [address] HGB Normal 13.0-16.5 [facility] Comment on above: Result Comment: Canc elled via OM: Order cancelled - Patient discharged Performed By: #### L 300.3900, L500.2500, L100.0100 #### [facility] [address] [place], [address] MCH Normal 27.0-32.0 [facility] Comment on above: Result Comment: Canc elled via OM: Order cancelled - Patient discharged Performed By: #### L 300.3900, L500.2500, L100.0100 #### [facility] [address] [place], [address] MCHC Normal 32-36 [facility] Comment on above: Result Comment: Canc elled via OM: Order cancelled - Patient discharged Performed By: #### L 300.3900, L500.2500, L100.0100 #### [facility] [address] [place], [address] MCV Normal 80-94 [facility] Comment on above: Result Comment: Canc elled via OM: Order cancelled - Patient discharged Performed By: #### L 300.3900, L500.2500, L100.0100 #### [facility] [address] [place], [address] NEUT% Normal 47-70 [facility] Comment on above: Result Comment: Canc elled via OM: Order cancelled - Patient discharged Performed By: #### L 300.3900, L500.2500, L100.0100 #### [facility] [address] [place], [address] PLT Normal 150-450 [facility] Comment on above: Result Comment: Canc elled via OM: Order cancelled - Patient discharged Performed By: #### L 300.3900, L500.2500, L100.0100 #### [facility] [address] [place], [address] RBC Normal 4.6-6.2 [facility] Comment on above: Result Comment: Canc elled via OM: Order cancelled - Patient discharged Performed By: #### L 300.3900, L500.2500, L100.0100 #### [facility] [address] [place], [address] RDW CV Normal 11.6-14.6 [facility] Comment on above: Result Comment: Canc elled via OM: Order cancelled - Patient discharged Performed By: #### L 300.3900, L500.2500, L100.0100 #### [facility] [facility] [address] [place], [address] RDW SD Normal 35.1-43.9 [facility] Comment on above: Result Comment: Canc elled via OM: Order cancelled - Patient discharged Performed By: #### L 300.3900, L500.2500, L100.0100 #### [facility] [address] [place], [address] WBC Normal 4.4-11.0 [facility] Comment on above: Result Comment: Canc elled via OM: Order cancelled - Patient discharged Performed By: #### L 300.3900, L500.2500, L100.0100 #### [facility] [address] [place], [address] Absolute lymphocyte countOrd ered By: Nathaniel Beverly on 07-23-2025 Lymphocytes Auto (Unsp spec) [#/Vol] 0.68 10*3/uL Low 0.83-4.51 [facility] Absolute neutrophil countOrd ered By: Nathaniel Beverly on 07-23-2025 Neutrophils (Bld) [#/Vol] 3.9 10*3/uL 2.0-7.7 [facility] Anion gap in Serum or Plasma Ordered By: Nathaniel Beverly on 07-23-2025 Anion gap [Moles/Vol] 11 mmol/L 5-15 [facility] Automated lymphocyte count a s percentage of total leukocytesOrdered By: Nathaniel Beverly on 07-23-2025 Lymphocytes/100 WBC Auto (Unsp spec) 12.7 % Low 19-41 [facility] BUN/creatinine ratioOrdered By: Nathaniel Beverly on 07-23-2025 Urea nitrogen/Creatinine [Mass ratio] 19.2 mg/mg 10- [facility] Basic Metabolic Profile (BMP )on 07-23-2025 BUN/CRE 19.2 RATIO Normal - [facility] Comment on above: Performed By: #### L 300.3900, L500.2500, L100.0100 #### [facility] [address] [place], [address] Calcium [Mass/Vol] 10.6 mg/dL Normal 7.6-11.0 [facility] Comment on above: Performed By: #### L 300.3900, L500.2500, L100.0100 #### [facility] [address] [place], [address] Chloride [Moles/Vol] 106 mmol/L Normal 98-108 [facility] Comment on above: Performed By: #### L 300.3900, L500.2500, L100.0100 #### [facility] [address] [place], [address] CO2 [Moles/Vol] 25.8 mmol/L Normal 21.0-32.0 [facility] Comment on above: Performed By: #### L 300.3900, L500.2500, L100.0100 #### [facility] [address] [place], [address] Creatinine [Mass/Vol] 3.34 mg/dL High 0.70-1.20 [facility] Comment on above: Performed By: #### L 300.3900, L500.2500, L100.0100 #### [facility] [address] [place], [address] ECRCL 24.74 ml/min Low 50-250 [facility] Comment on above: Performed By: #### L 300.3900, L500.2500, L100.0100 #### [facility] [address] [place], [address] GAP 11 Normal 5-15 [facility] Comment on above: Performed By: #### L 300.3900, L500.2500, L100.0100 #### [facility] [address] [place], [address] GFR/1.73 sq M.predicted among non-blacks MDRD (S/P/Bld) [Vol rate/Area] 17 mL/min/{1.73_m2} Low >60 [facility] Comment on above: Result Comment: mL/m in/1.73m2 CKD-EPI Creatinine Equation (2020) Performed By: #### L 300.3900, L500.2500, L100.0100 #### [facility] [address] [place], [address] Glucose [Mass/Vol] 150 mg/dL High 70-99 [facility] Comment on above: Performed By: #### L 300.3900, L500.2500, L100.0100 #### [facility] [address] [place], [address] Potassium [Moles/Vol] 4.4 mmol/L Normal 3.3-5.1 [facility] Comment on above: Performed By: #### L 300.3900, L500.2500, L100.0100 #### [facility] [address] [place], [address] Sodium [Moles/Vol] 143 mmol/L Normal 133-145 [facility] Comment on above: Performed By: #### L 300.3900, L500.2500, L100.0100 #### [facility] [address] [place], [address] Urea nitrogen [Mass/Vol] 64 mg/dL High 4-19 [facility] Comment on above: Performed By: #### L 300.3900, L500.2500, L100.0100 #### [facility] [address] [place], [address] Basophil percentageOrdered B y: Nathaniel Beverly on 07-23-2025 Basophils/100 WBC (Bld) 0.7 % 0-1 [facility] Bedside Glucoseon 07-23-2025 FINGERSTICK GLU 126 mg/dL High 74-106 [facility] Comment on above: Result Comment: KATELYNN GEMENT OF PATIENT CARE PER NURSING PROTOCOL Performed By: #### L 300.3900, L500.2500, L100.0100 #### [facility] [address] [place], [address] FINGERSTICK GLU 126 mg/dL High 74-106 [facility] Comment on above: Result Comment: KATELYNN GEMENT OF PATIENT CARE PER NURSING PROTOCOL Performed By: #### L 499.0043 #### [facility] [address] [place], [address] CBC W/Diff, Automatedon 09-0 Absolute Lymph 0.68 X10 3/uL Low 0.83-4.51 [facility] Comment on above: Performed By: #### L 300.3900, L500.2500, L100.0100 #### [facility] [address] [place], [address] Absolute Neut 3.9 X10 3/uL Normal 2.0-7.7 [facility] Comment on above: Performed By: #### L 300.3900, L500.2500, L100.0100 #### [facility] [address] [place], [address] Basophils/100 WBC (Bld) 0.7 % Normal 0-1 [facility] Comment on above: Performed By: #### L 300.3900, L500.2500, L100.0100 #### [facility] [address] [place], [address] Eosinophils/100 WBC (Bld) 2.4 % Normal 0-5 [facility] Comment on above: Performed By: #### L 300.3900, L500.2500, L100.0100 #### [facility] [address] [place], [address] Erythrocyte distribution width (RBC) [Ratio] 14.8 % High 11.6-14.6 [facility] Comment on above: Performed By: #### L 300.3900, L500.2500, L100.0100 #### [facility] [address] [place], [address] Hematocrit (Bld) [Volume fraction] 26.5 % Low 40-54 [facility] Comment on above: Performed By: #### L 300.3900, L500.2500, L100.0100 #### [facility] [address] [place], [address] Hemoglobin (Bld) [Mass/Vol] 8.0 g/dL Low 13.0-16.5 [facility] Comment on above: Performed By: #### L 300.3900, L500.2500, L100.0100 #### [facility] [address] [place], [address] IG% 0.200 Normal 0.0-0.9 [facility] Comment on above: Result Comment: IG% - Immature Granulocytes (promyelocytes, myelocytes and metamyelocytes) > 1% indicates that a LEFT SHIFT is Present. Performed By: #### L 300.3900, L500.2500, L100.0100 #### [facility] [address] [place], [address] Lymphocytes/100 WBC (Bld) 12.7 % Low 19-41 [facility] Comment on above: Performed By: #### L 300.3900, L500.2500, L100.0100 #### [facility] [address] [place], [address] MCH (RBC) [Entitic mass] 26.3 pg Low 27.0-32.0 [facility] Comment on above: Performed By: #### L 300.3900, L500.2500, L100.0100 #### [facility] [address] [place], [address] MCHC (RBC) [Mass/Vol] 30.2 g/dL Low 32-36 [facility] Comment on above: Performed By: #### L 300.3900, L500.2500, L100.0100 #### [facility] [address] [place], [address] MCV (RBC) [Entitic vol] 87.2 fL Normal 80-94 [facility] Comment on above: Performed By: #### L 300.3900, L500.2500, L100.0100 #### [facility] [address] [place], [address] Monocytes/100 WBC (Bld) 11.2 % High 0-10 [facility] Comment on above: Performed By: #### L 300.3900, L500.2500, L100.0100 #### [facility] [address] [place], [address] Neutrophils/100 WBC (Bld) 72.8 % High 47-70 [facility] Comment on above: Performed By: #### L 300.3900, L500.2500, L100.0100 #### [facility] [address] [place], [address] Nucleated RBC (Bld) [#/Vol] 0 10*3/uL Normal 0-5 [facility] Comment on above: Performed By: #### L 300.3900, L500.2500, L100.0100 #### [facility] [address] [place], [address] Platelet mean volume (Bld) [Entitic vol] 12.4 fL High 6.2-12.0 [facility] Comment on above: Performed By: #### L 300.3900, L500.2500, L100.0100 #### [facility] [address] [place], [address] Platelets (Bld) [#/Vol] 110 10*3/uL Low 150-450 [facility] Comment on above: Performed By: #### L 300.3900, L500.2500, L100.0100 #### [facility] [address] [place], [address] RBC (Bld) [#/Vol] 3.04 10*6/uL Low 4.6-6.2 [facility] Comment on above: Performed By: #### L 300.3900, L500.2500, L100.0100 #### [facility] [address] [place], [address] RDW SD 47.6 fl High 35.1-43.9 [facility] Comment on above: Performed By: #### L 300.3900, L500.2500, L100.0100 #### [facility] [address] [place], [address] WBC (Bld) [#/Vol] 5.4 10*3/uL Normal 4.4-11.0 [facility] Comment on above: Performed By: #### L 300.3900, L500.2500, L100.0100 #### [facility] [address] [place], [address] Carbon dioxide, total [Moles /volume] in Central venous bloodOrdered By: Nathaniel Beverly on 07-23-2025 CO2 [Moles/Vol] 25.8 mmol/L 21.0-32.0 [facility] Chloride assayOrdered By: Marty Beverly on 07-23-2025 Chloride [Moles/Vol] 106 mmol/L 98-108 [facility] Eosinophil percentageOrdered By: Nathaniel Beverly on 07-23-2025 Eosinophils/100 WBC (Bld) 2.4 % 0-5 [facility] Erythrocyte distribution wid th ratioOrdered By: Nathaniel Beverly on 07-23-2025 Erythrocyte distribution width (RBC) [Ratio] 14.8 % High 11.6-14.6 [facility] Erythrocyte distribution wid th standard deviationOrdered By: Nathaniel Beverly on 07-23-2025 Erythrocyte distribution width (RBC) [Ratio] 47.6 fl High 35.1-43.9 [facility] Glomerular filtration rate ( GFR) estimation/1.73 sq m using serum, plasma, or whole bOrdered By: Nathaniel Beverly on 07-23-2025 GFR/1.73 sq M.predicted among non-blacks MDRD (S/P/Bld) [Vol rate/Area] 17 mL/min/{1.73_m2} Low >60 [facility] Comment on above: mL/min/1.73m2 CKD-EP I Creatinine Equation (2020) [facility] deOrdered By: Nathaniel Beverly on 07-23-2025 Glucose [Mass/Vol] 126 mg/dL High 74-106 [facility] Comment on above: MANAGEMENT OF PATIEN T CARE PER NURSING PROTOCOL Hematocrit Auto (Bld) [Volum e fraction]Ordered By: Nathaniel Beverly on 07-23-2025 Hematocrit (Bld) [Volume fraction] 26.5 % Low 40-54 [facility] Hemoglobin measurementOrdere d By: Nathaniel Beverly on 07-23-2025 Hemoglobin (Bld) [Mass/Vol] 8.0 g/dL Low 13.0-16.5 [facility] Immature granulocytes/100 WB C Auto (Bld)Ordered By: Nathaniel Beverly on 07-23-2025 Immature granulocytes/100 WBC (Bld) 0.200 % 0.0-0.9 [facility] Comment on above: IG% - Immature Granu locytes (promyelocytes, myelocytes and metamyelocytes) > 1% indicates that a LEFT SHIFT is Present. MCV (mean corpuscular volume ) determinationOrdered By: Nathaniel Beverly on 07-23-2025 MCV (RBC) [Entitic vol] 87.2 fL 80-94 [facility] Mean corpuscular hemoglobin (MCH) determinationOrdered By: Nathaniel Beverly on 07-23-2025 MCH (RBC) [Entitic mass] 26.3 pg Low 27.0-32.0 [facility] Mean corpuscular hemoglobin concentration (MCHC) determinationOrdered By: Nathaniel Beverly on 07-23-2025 MCHC (RBC) [Mass/Vol] 30.2 g/dL Low 32-36 [facility] Mean platelet volume determi nationOrdered By: Nathaniel Beverly on 07-23-2025 Platelet mean volume (Bld) [Entitic vol] 12.4 fL High 6.2-12.0 [facility] Monocyte percentageOrdered B y: Nathaniel Beverly on 07-23-2025 Monocytes/100 WBC (Bld) 11.2 % High 0-10 [facility] Neutrophil percentageOrdered By: Nathaniel Beverly on 07-23-2025 Neutrophils/100 WBC (Bld) 72.8 % High 47-70 [facility] Nucleated red blood cell per centageOrdered By: Nathaniel Beverly on 07-23-2025 Nucleated RBC/100 WBC (Bld) [Ratio] 0 % 0-5 [facility] Platelet countOrdered By: Marty Beverly on 07-23-2025 Platelets (Bld) [#/Vol] 110 10*3/uL Low 150-450 [facility] Potassium measurement (mass/ volume)Ordered By: Nathaniel Beverly on 07-23-2025 Potassium (Unsp spec) [Mass/Vol] 4.4 mmol/L 3.3-5.1 [facility] RBC Auto (Bld) [#/Vol]Ordere d By: Nathaniel Beverly on 07-23-2025 RBC (Bld) [#/Vol] 3.04 10*6/uL Low 4.6-6.2 [facility] Serum creatinine measurement (mass/volume)Ordered By: Nathaniel Beverly on 07-23-2025 Creatinine [Mass/Vol] 3.34 mg/dL High 0.70-1.20 [facility] Serum glucose measurement (m ass/volume)Ordered By: Nathaniel Beverly on 07-23-2025 Glucose [Mass/Vol] 150 mg/dL High 70-99 [facility] Serum or plasma calcium karthik urement (mass/volume)Ordered By: Nathaniel Beverly on 07-23-2025 Calcium [Mass/Vol] 10.6 mg/dL 7.6-11.0 [facility] Serum or plasma urea nitroge n measurement (mass/volume)Ordered By: Nathaniel Beverly on 07-23-2025 Urea nitrogen [Mass/Vol] 64 mg/dL High 4-19 [facility] Sodium levelOrdered By: Martin Beverly on 07-23-2025 Sodium [Moles/Vol] 143 mmol/L 133-145 [facility] White blood cell (WBC) count Ordered By: Nathaniel Beverly on 07-23-2025 WBC (Bld) [#/Vol] 5.4 10*3/uL 4.4-11.0 [facility] Basic Metabolic Profile (BMP )on 07-22-2025 BUN/CRE 19.4 RATIO Normal 10-20 [facility] Comment on above: Performed By: #### L 300.3900, L500.2500, L100.0100 #### [facility] [address] [place], [address] Calcium [Mass/Vol] 10.5 mg/dL Normal 7.6-11.0 [facility] Comment on above: Performed By: #### L 300.3900, L500.2500, L100.0100 #### [facility] [address] [place], [address] Chloride [Moles/Vol] 106 mmol/L Normal 98-108 [facility] Comment on above: Performed By: #### L 300.3900, L500.2500, L100.0100 #### [facility] [address] [place], [address] CO2 [Moles/Vol] 25.4 mmol/L Normal 21.0-32.0 [facility] Comment on above: Performed By: #### L 300.3900, L500.2500, L100.0100 #### [facility] [address] [place], [address] Creatinine [Mass/Vol] 3.29 mg/dL High 0.70-1.20 [facility] Comment on above: Performed By: #### L 300.3900, L500.2500, L100.0100 #### [facility] [address] [place], [address] ECRCL 25.12 ml/min Low 50-250 [facility] Comment on above: Performed By: #### L 300.3900, L500.2500, L100.0100 #### [facility] [address] [place], [address] GAP 11 Normal 5-15 [facility] Comment on above: Performed By: #### L 300.3900, L500.2500, L100.0100 #### [facility] [address] [place], [address] GFR/1.73 sq M.predicted among non-blacks MDRD (S/P/Bld) [Vol rate/Area] 17 mL/min/{1.73_m2} Low >60 [facility] Comment on above: Result Comment: mL/m in/1.73m2 CKD-EPI Creatinine Equation (2020) Performed By: #### L 300.3900, L500.2500, L100.0100 #### [facility] [address] [place], [address] Glucose [Mass/Vol] 147 mg/dL High 70-99 [facility] Comment on above: Performed By: #### L 300.3900, L500.2500, L100.0100 #### [facility] [address] [place], [address] Potassium [Moles/Vol] 4.6 mmol/L Normal 3.3-5.1 [facility] Comment on above: Performed By: #### L 300.3900, L500.2500, L100.0100 #### [facility] [address] [place], [address] Sodium [Moles/Vol] 142 mmol/L Normal 133-145 [facility] Comment on above: Performed By: #### L 300.3900, L500.2500, L100.0100 #### [facility] [address] [place], [address] Urea nitrogen [Mass/Vol] 64 mg/dL High 4-19 [facility] Comment on above: Performed By: #### L 300.3900, L500.2500, L100.0100 #### [facility] [address] [place], [address] Bedside Glucoseon 07-22-2025 FINGERSTICK GLU 150 mg/dL High 74-106 [facility] Comment on above: Result Comment: KATELYNN GEMENT OF PATIENT CARE PER NURSING PROTOCOL Performed By: #### L 499.0043 #### [facility] [address] [place], [address] FINGERSTICK GLU 147 mg/dL High 74-106 [facility] Comment on above: Result Comment: KATELYNN GEMENT OF PATIENT CARE PER NURSING PROTOCOL Performed By: #### L 499.0042 #### [facility] [address] [place], [address] FINGERSTICK GLU 134 mg/dL High 74-106 [facility] Comment on above: Result Comment: KATELYNN GEMENT OF PATIENT CARE PER NURSING PROTOCOL Performed By: #### L 499.0042 #### [facility] [address] [place], [address] FINGERSTICK GLU 140 mg/dL High 74-106 [facility] Comment on above: Result Comment: KATELYNN GEMENT OF PATIENT CARE PER NURSING PROTOCOL Performed By: #### L 501.080 #### [facility] [address] [place], [address] CBC W/Diff, Automatedon 09-0 Absolute Lymph 0.74 X10 3/uL Low 0.83-4.51 [facility] Comment on above: Performed By: #### L 499.0042 #### [facility] [address] [place], [address] Absolute Neut 4.0 X10 3/uL Normal 2.0-7.7 [facility] Comment on above: Performed By: #### L 499.0042 #### [facility] [address] [place], [address] Basophils/100 WBC (Bld) 0.7 % Normal 0-1 [facility] Comment on above: Performed By: #### L 499.0042 #### [facility] [address] [place], [address] Eosinophils/100 WBC (Bld) 3.4 % Normal 0-5 [facility] Comment on above: Performed By: #### L 499.0042 #### [facility] [address] [place], [address] Erythrocyte distribution width (RBC) [Ratio] 15.1 % High 11.6-14.6 [facility] Comment on above: Performed By: #### L 499.0042 #### [facility] [address] [place], [address] Hematocrit (Bld) [Volume fraction] 26.9 % Low 40-54 [facility] Comment on above: Performed By: #### L 499.0042 #### [facility] [address] [place], [address] Hemoglobin (Bld) [Mass/Vol] 8.1 g/dL Low 13.0-16.5 [facility] Comment on above: Performed By: #### L 499.0042 #### [facility] [address] [place], [address] IG% 0.200 Normal 0.0-0.9 [facility] Comment on above: Result Comment: IG% - Immature Granulocytes (promyelocytes, myelocytes and metamyelocytes) > 1% indicates that a LEFT SHIFT is Present. Performed By: #### L 499.0042 #### [facility] [address] [place], [address] Lymphocytes/100 WBC (Bld) 13.2 % Low 19-41 [facility] Comment on above: Performed By: #### L 499.0042 #### [facility] [address] [place], [address] MCH (RBC) [Entitic mass] 26.1 pg Low 27.0-32.0 [facility] Comment on above: Performed By: #### L 499.0042 #### [facility] [address] [place], [address] MCHC (RBC) [Mass/Vol] 30.1 g/dL Low 32-36 [facility] Comment on above: Performed By: #### L 499.0042 #### [facility] [address] [place], [address] MCV (RBC) [Entitic vol] 86.8 fL Normal 80-94 [facility] Comment on above: Performed By: #### L 499.0042 #### [facility] [address] [place], [address] Monocytes/100 WBC (Bld) 12.3 % High 0-10 [facility] Comment on above: Performed By: #### L 499.0042 #### [facility] [address] [place], [address] Neutrophils/100 WBC (Bld) 70.2 % High 47-70 [facility] Comment on above: Performed By: #### L 499.0042 #### [facility] [address] [place], [address] Nucleated RBC (Bld) [#/Vol] 0 10*3/uL Normal 0-5 [facility] Comment on above: Performed By: #### L 499.0042 #### [facility] [address] [place], [address] Platelet mean volume (Bld) [Entitic vol] 12.5 fL High 6.2-12.0 [facility] Comment on above: Performed By: #### L 499.0042 #### [facility] [address] [place], [address] Platelets (Bld) [#/Vol] 114 10*3/uL Low 150-450 [facility] Comment on above: Performed By: #### L 499.0042 #### [facility] [address] [place], [address] RBC (Bld) [#/Vol] 3.10 10*6/uL Low 4.6-6.2 [facility] Comment on above: Performed By: #### L 499.0042 #### [facility] [address] [place], [address] RDW SD 48.2 fl High 35.1-43.9 [facility] Comment on above: Performed By: #### L 499.0042 #### [facility] [address] [place], [address] WBC (Bld) [#/Vol] 5.6 10*3/uL Normal 4.4-11.0 [facility] Comment on above: Performed By: #### L 499.0042 #### [facility] [address] [place], [address] Calculated very low density lipoprotein (VLDL) cholesterol measurementOrdered By: Nathaniel Beverly on 07-22-2025 Calculated very low density lipoprotein (VLDL) cholesterol measurement 12 mg/dL 5-40 [facility] Echocardiogram study reportO rdered By: Jeni Mock on 07-22-2025 Study report [facility] Cardi[facility] Services [address] [place] [address] Echo Complete W/ Contrast 07/21/25 1402 MR#: [id number] Acct: [id number] Name: FEDERICO HU Rep #:[id number] : 1935 89 From: Jeni lindsay MD Attending Dr: Dr. Nathaniel Beverly MD Status: ADM IN Ordering Dr: Nathaniel Beverly MD Date: Location: [facility] Sex: M C Admitted: 07/21/25 Reason For [...] Dictated: 07/21/25 1402 Date Transcribed: 07/22/25 1253 Product Consultant: Signed [facility] Work Phone: Hemoglobin A1con 07-22-2025 HbA1c (Bld) [Mass fraction] 6.3 % High <=5.6 [facility] Comment on above: Result Comment: Norm al < 5.7 % Prediabetic 5.7 - 6.4 % Diabetic >or= 6.5 % Please note range changes. Performed By: #### L 300.3900, L500.2500, L100.0100 #### [facility] [address] [place], [place], [address] Hemoglobin A1c percentageOrd ered By: Nathaniel Beverly on 07-22-2025 HbA1c (Bld) [Mass fraction] 6.3 % High <5.7 [facility] Comment on above: Normal < 5.7 % Predi abetic 5.7 - 6.4 % Diabetic >or= 6.5 % Please note range changes. LDL calc ser/plasOrdered By: Nathaniel Beverly on 07-22-2025 Cholesterol in LDL [Mass/Vol] 14 mg/dL [facility] Comment on above: Qdbdikqpfw=496-366 m g/dL & Higher Noej=615 mg/dL or greaterFriedwald Equation for LDL-C Lipid Profileon 07-22-2025 CHOL:HDL 1.63 Normal [facility] Comment on above: Performed By: #### L 300.3900, L500.2500, L100.0100 #### [facility] [address] [place], [address] Cholesterol [Mass/Vol] 67 mg/dL Normal <=200 [facility] Comment on above: Result Comment: Chol esterol level, Desirable <200 mg/dL Borderline high cholesterol 200-239 mg/dL High cholesterol >=240 mg/dL Recommendations of the NCEP Adult Treatment Panel for the following risk-cutoff thresholds for the [place] population. Performed By: #### L 300.3900, L500.2500, L100.0100 #### [facility] [address] [place], [place], [address] Cholesterol in HDL [Mass/Vol] 41 mg/dL Normal [facility] Comment on above: Result Comment: Jazmin onal Cholesterol Education Program (NCEP) guidelines: <40 mg/dL: Low HDL-cholesterol (major risk factor for CHD) >= 60 mg/dL: High HDL-cholesterol (negative risk factor for CHD) HDL-cholesterol is affected by a number of factors, e.g. smoking, exercise, hormones, sex and age. Performed By: #### L 300.3900, L500.2500, L100.0100 #### [facility] [address] [place], [address] Cholesterol in LDL [Mass/Vol] 14 mg/dL Normal [facility] Comment on above: Result Comment: Bord lnkfhf=157-425 mg/dL Higher Pnzj=269 mg/dL or greater Friedwald Equation for LDL-C Performed By: #### L 300.3900, L500.2500, L100.0100 #### [facility] [address] [place], [address] Cholesterol in VLDL [Mass/Vol] 12 mg/dL Normal 5-40 [facility] Comment on above: Performed By: #### L 300.3900, L500.2500, L100.0100 #### [facility] [address] [place], [address] Triglyceride [Mass/Vol] 60 mg/dL Normal [facility] Comment on above: Result Comment: The drugs N-Acetylcysteine and Metamizole may falsely depress this assay. Normal range: <150 mg/dL Borderline High: 150-199 mg/dL High: 200-499 mg/dL Very High: >500 mg/dL Performed By: #### L 300.3900, L500.2500, L100.0100 #### [facility] [address] [place], [address] Magnesiumon 07-22-2025 Magnesium [Mass/Vol] 2.6 mg/dL High 1.5-2.2 [facility] Comment on above: Performed By: #### L 300.3900, L500.2500, L100.0100 #### [facility] [address] [place], [address] Magnesium measurement (mass/ volume)Ordered By: Nathaniel Beverly on 07-22-2025 Magnesium (Unsp spec) [Mass/Vol] 2.6 mg/dL High 1.5-2.2 [facility] Phosphoruson 07-22-2025 Phosphate [Mass/Vol] 4.3 mg/dL Normal 2.7-4.5 [facility] Comment on above: Performed By: #### L 300.3900, L500.2500, L100.0100 #### [facility] [address] [place], [address] Screening total cholesterol/ high density lipoprotein (HDL) cholesterol ratioOrdered By: Nathaniel Beverly on 07-22-2025 Cholesterol.total/Cho lesterol in HDL [Mass ratio] 1.63 {ratio} [facility] Serum or plasma cholesterol in HDL measurement (mass/volume)Ordered By: Nathaniel Beverly on 07-22-2025 Cholesterol in HDL [Mass/Vol] 41 mg/dL >40 [facility] Comment on above: National Cholesterol Education Program (NCEP) guidelines:<40 mg/dL: Low HDL-cholesterol (major risk factor for CHD)>= 60 mg/dL: High HDL-cholesterol (negative risk factor for CHD)HDL-cholesterol is affected by a number of factors, e.g. smoking, exercise, hormones, sex and age. Serum or plasma cholesterol measurement (mass/volume)Ordered By: Nathaniel Beverly on 07-22-2025 Cholesterol [Mass/Vol] 67 mg/dL <201 [facility] Comment on above: Cholesterol level, D esirable <200 mg/dLBorderline high cholesterol 200-239 mg/dLHigh cholesterol >=240 mg/dLRecommendations of the NCEP Adult Treatment Panel for the following risk-cutoff thresholds for the [place] population. TSH DL <= 0.005 mIU/L QnOrde red By: Nathaniel Beverly on 07-22-2025 TSH Qn 3.940 uIU/mL 0.300-4.200 [facility] Thyroid Stim Hormone (TSH)on 07-22-2025 TSH 3.940 uIU/mL Normal 0.300-4.200 [facility] Comment on above: Performed By: #### L 300.3900, L500.2500, L100.0100 #### [facility] [address] [place], [address] Triglycerides measurementOrd ered By: Nathaniel Beverly on 07-22-2025 Triglyceride [Mass/Vol] 60 mg/dL <199 [facility] Comment on above: The drugs N-Acetylcy steine and Metamizole may falsely depress this assay. Normal range: <150 mg/dLBorderline High: 150-199 mg/dLHigh: 200-499 mg/dLVery High: >500 mg/dL 12 Lead EKGon 07-21-2025 12 Lead EKG [facility] Cardiovascular Services [address] [place] [address] 12 Lead EKG 07/21/25 1053 MR#: [id number] Acct: [id number] Name: FEDERICO HU Rep #: [id number] : 1935 89 From: Jeni Mock MD Attending Dr: Dr. Nathaniel Beverly MD Status: DIS IN Ordering Dr: Fely Parra DO Date: 07/21/25 Location: [facility] Sex: M C Admitted: 07/21/25 Test Reason : Blood Pressure : */* mmHG Vent. Rate : 71 BPM Atrial Rate : * BPM P-R Int : * ms QRS Dur : 152 ms QT Int : 448 ms P-R-T Axes : * 99 14 degrees QTcB Int : 486 ms Atrial fibrillation Right bundle branch block Abnormal ECG Confirmed by EMILI ESCOBEDO, KATELIN ([id number]), business editor KEZIA BENAVIDES ([id number]) on 07/25/2025 8:58:26 AM Referred By: Confirmed By: KATELIN MOCK MD 07/25/25 0858 Date Jeni Mock MD CC: Dr. Nathaniel Beverly MD; Dr. Fely Parra DO; Dr. Nithin Acevedo MD Signed Normal [facility] Absolute lymphocyte countOrd ered By: Fely Parra on 07-21-2025 Lymphocytes Auto (Unsp spec) [#/Vol] 0.66 10*3/uL Low 0.83-4.51 [facility] Absolute neutrophil countOrd ered By: Fely Parra on 07-21-2025 Neutrophils (Bld) [#/Vol] 3.9 10*3/uL 2.0-7.7 [facility] Anion gap in Serum or Plasma Ordered By: Fely Parra on 07-21-2025 Anion gap [Moles/Vol] 14 mmol/L 5- [facility] Automated lymphocyte count a s percentage of total leukocytesOrdered By: Fely Parra on 07-21-2025 Lymphocytes/100 WBC Auto (Unsp spec) 12.7 % Low 19-41 [facility] BUN/creatinine ratioOrdered By: Fely Parra on 07-21-2025 Urea nitrogen/Creatinine [Mass ratio] 20.0 mg/mg 10- [facility] Basic Metabolic Profile (BMP )on 07-21-2025 BUN/CRE 20.0 RATIO Normal - [facility] Comment on above: Performed By: #### L 300.3900, L500.2500, L100.0100 #### [facility] [address] [place], [address] Calcium [Mass/Vol] 10.7 mg/dL Normal 7.6-11.0 [facility] Comment on above: Performed By: #### L 300.3900, L500.2500, L100.0100 #### [facility] [address] [place], [address] Chloride [Moles/Vol] 106 mmol/L Normal 98-108 [facility] Comment on above: Performed By: #### L 300.3900, L500.2500, L100.0100 #### [facility] [address] [place], [address] CO2 [Moles/Vol] 22.6 mmol/L Normal 21.0-32.0 [facility] Comment on above: Performed By: #### L 300.3900, L500.2500, L100.0100 #### [facility] [address] [place], [address] Creatinine [Mass/Vol] 3.12 mg/dL High 0.70-1.20 [facility] Comment on above: Performed By: #### L 300.3900, L500.2500, L100.0100 #### [facility] [address] [place], [address] ECRCL 25.92 ml/min Low 50-250 [facility] Comment on above: Performed By: #### L 300.3900, L500.2500, L100.0100 #### [facility] [address] [place], [address] GAP 14 Normal 5-15 [facility] Comment on above: Performed By: #### L 300.3900, L500.2500, L100.0100 #### [facility] [address] [place], [address] GFR/1.73 sq M.predicted among non-blacks MDRD (S/P/Bld) [Vol rate/Area] 18 mL/min/{1.73_m2} Low >60 [facility] Comment on above: Result Comment: mL/m in/1.73m2 CKD-EPI Creatinine Equation (2020) Performed By: #### L 300.3900, L500.2500, L100.0100 #### [facility] [address] [place], [address] Glucose [Mass/Vol] 166 mg/dL High 70-99 [facility] Comment on above: Performed By: #### L 300.3900, L500.2500, L100.0100 #### [facility] [address] [place], [address] Potassium [Moles/Vol] 4.6 mmol/L Normal 3.3-5.1 [facility] Comment on above: Performed By: #### L 300.3900, L500.2500, L100.0100 #### [facility] [address] [place], [address] Sodium [Moles/Vol] 142 mmol/L Normal 133-145 [facility] Comment on above: Performed By: #### L 300.3900, L500.2500, L100.0100 #### [facility] [address] [place], [address] Urea nitrogen [Mass/Vol] 63 mg/dL High 4-19 [facility] Comment on above: Performed By: #### L 300.3900, L500.2500, L100.0100 #### [facility] [address] [place], [address] Basophil percentageOrdered B y: Remus Ungur on 07-21-2025 Basophils/100 WBC (Bld) 0.8 % 0-1 [facility] Bedside Glucoseon 07-21-2025 FINGERSTICK GLU 170 mg/dL High 74-106 [facility] Comment on above: Result Comment: KATELYNN GEMENT OF PATIENT CARE PER NURSING PROTOCOL Performed By: #### L 499.0043 #### [facility] [address] [place], [address] FINGERSTICK GLU 144 mg/dL High 74-106 [facility] Comment on above: Result Comment: KATELYNN GEMENT OF PATIENT CARE PER NURSING PROTOCOL Performed By: #### L 300.3900, L500.2500, L100.0100 #### [facility] [address] [place], [address] CBC W/Diff, Automatedon Absolute Lymph 0.66 X10 3/uL Low 0.83-4.51 [facility] Comment on above: Performed By: #### L 300.3900, L500.2500, L100.0100 #### [facility] [address] [place], [address] Absolute Neut 3.9 X10 3/uL Normal 2.0-7.7 [facility] Comment on above: Performed By: #### L 300.3900, L500.2500, L100.0100 #### [facility] [address] [place], [address] Basophils/100 WBC (Bld) 0.8 % Normal 0-1 [facility] Comment on above: Performed By: #### L 300.3900, L500.2500, L100.0100 #### [facility] [address] [place], [address] Eosinophils/100 WBC (Bld) 2.9 % Normal 0-5 [facility] Comment on above: Performed By: #### L 300.3900, L500.2500, L100.0100 #### [facility] [address] [place], [address] Erythrocyte distribution width (RBC) [Ratio] 15.0 % High 11.6-14.6 [facility] Comment on above: Performed By: #### L 300.3900, L500.2500, L100.0100 #### [facility] [address] [place], [address] Hematocrit (Bld) [Volume fraction] 29.3 % Low 40-54 [facility] Comment on above: Performed By: #### L 300.3900, L500.2500, L100.0100 #### [facility] [address] [place], [address] Hemoglobin (Bld) [Mass/Vol] 8.7 g/dL Low 13.0-16.5 [facility] Comment on above: Performed By: #### L 300.3900, L500.2500, L100.0100 #### [facility] [address] [place], [address] IG% 0.600 Normal 0.0-0.9 [facility] Comment on above: Result Comment: IG% - Immature Granulocytes (promyelocytes, myelocytes and metamyelocytes) > 1% indicates that a LEFT SHIFT is Present. Performed By: #### L 300.3900, L500.2500, L100.0100 #### [facility] [address] [place], [address] Lymphocytes/100 WBC (Bld) 12.7 % Low 19-41 [facility] Comment on above: Performed By: #### L 300.3900, L500.2500, L100.0100 #### [facility] [address] [place], [address] MCH (RBC) [Entitic mass] 26.2 pg Low 27.0-32.0 [facility] Comment on above: Performed By: #### L 300.3900, L500.2500, L100.0100 #### [facility] [address] [place], [address] MCHC (RBC) [Mass/Vol] 29.7 g/dL Low 32-36 [facility] Comment on above: Performed By: #### L 300.3900, L500.2500, L100.0100 #### [facility] [address] [place], [address] MCV (RBC) [Entitic vol] 88.3 fL Normal 80-94 [facility] Comment on above: Performed By: #### L 300.3900, L500.2500, L100.0100 #### [facility] [address] [place], [address] Monocytes/100 WBC (Bld) 9.0 % Normal 0-10 [facility] Comment on above: Performed By: #### L 300.3900, L500.2500, L100.0100 #### [facility] [address] [place], [address] Neutrophils/100 WBC (Bld) 74.0 % High 47-70 [facility] Comment on above: Performed By: #### L 300.3900, L500.2500, L100.0100 #### [facility] [address] [place], [address] Nucleated RBC (Bld) [#/Vol] 0 10*3/uL Normal 0-5 [facility] Comment on above: Performed By: #### L 300.3900, L500.2500, L100.0100 #### [facility] [address] [place], [address] Platelet mean volume (Bld) [Entitic vol] 12.2 fL High 6.2-12.0 [facility] Comment on above: Performed By: #### L 300.3900, L500.2500, L100.0100 #### [facility] [address] [place], [address] Platelets (Bld) [#/Vol] 120 10*3/uL Low 150-450 [facility] Comment on above: Performed By: #### L 300.3900, L500.2500, L100.0100 #### [facility] [address] [place], [address] RBC (Bld) [#/Vol] 3.32 10*6/uL Low 4.6-6.2 [facility] Comment on above: Performed By: #### L 300.3900, L500.2500, L100.0100 #### [facility] [address] [place], [address] RDW SD 48.8 fl High 35.1-43.9 [facility] Comment on above: Performed By: #### L 300.3900, L500.2500, L100.0100 #### [facility] [address] [place], [address] WBC (Bld) [#/Vol] 5.2 10*3/uL Normal 4.4-11.0 [facility] Comment on above: Performed By: #### L 300.3900, L500.2500, L100.0100 #### [facility] [address] [place], [place], [address] Carbon dioxide, total [Moles /volume] in Central venous bloodOrdered By: Fely Parra on 07-21-2025 CO2 [Moles/Vol] 22.6 mmol/L 21.0-32.0 [facility] Chest 1 View (Portable)on Chest 1 View (Portable) [facility] Imaging Services [address] [place] [address] Chest 1 View (Portable) MR#: [id number] Acct: [id number] Name: FEDERICO HU Rep #: [id number] : 1935 M 89 From: Jamel Moore MD PCP: Dr. Nithin Acevedo MD Status: [facility] ER Study: Chest 1 View (Portable) Date of Exam: 07/21/25 Exam# [id number] Ordering Dr: Fely Parra DO PROCEDURE: CHEST [...] and recommendations as discussed above. Reading Location: [id number] CC: Dr. Fely Parra DO; Dr. Nithin Acevedo MD Product Consultant: Signed Normal [facility] Chloride assayOrdered By: Carolina Parra on 07-21-2025 Chloride [Moles/Vol] 106 mmol/L 98-108 [facility] Echo Complete W/ Contraston 07-21-2025 Echo Complete W/ Contrast [facility] Cardiovascular Services [address] [place] [address] Echo Complete W/ Contrast 07/21/25 1402 MR#: [id number] Acct: [id number] Name: FEDERICO HU Rep #: [id number] : 1935 89 From: Jeni Mock MD [...] Dictated: 07/21/25 1402 Date Transcribed: 07/22/25 1253 Product Consultant: Signed Normal [facility] Emergency Department Summary on 07-21-2025 Emergency Department Summary [facility] Medical Records Department [address] [place] [address] Emergency Department Summary 07/21/25 MR#: [id number] Acct: [id number] Name: FEDERICO HU Rep #: [id number] : 1935 89 From: Fely Parra DO PCP: Dr. Nithin Acevedo MD Status:ADM IN Location: [place] [address] HPI History of Present Illness Chief Complaint: [...] green phlegm. He has had no fever. [facility] Medical History Afib CAD (coronary [...] Reaction Status Date / Time finasteride (From zoojoo.BE) Allergy Hives Verified 07/21/25 10:26 Social History [...] for pa (more content not included)... Normal [facility] Eosinophil percentageOrdered By: Fely Parra on 07-21-2025 Eosinophils/100 WBC (Bld) 2.9 % 0-5 [facility] Erythrocyte distribution wid th ratioOrdered By: Fely Parra on 07-21-2025 Erythrocyte distribution width (RBC) [Ratio] 15.0 % High 11.6-14.6 [facility] Erythrocyte distribution wid th standard deviationOrdered By: Fely Parra on 07-21-2025 Erythrocyte distribution width (RBC) [Ratio] 48.8 fl High 35.1-43.9 [facility] Glomerular filtration rate ( GFR) estimation/1.73 sq m using serum, plasma, or whole bOrdered By: Fely Parra on 07-21-2025 GFR/1.73 sq M.predicted among non-blacks MDRD (S/P/Bld) [Vol rate/Area] 18 mL/min/{1.73_m2} Low >60 [facility] Comment on above: mL/min/1.73m2 CKD-EP I Creatinine Equation (2020) H AND P Exam - [facility] 07-21-2025 H&P Exam - Hospitalist [facility] Medical Records Department [address] [place] [address] H P Exam - Hospitalist 07/21/25 1159 MR#: [id number] Acct: [id number] Name: FEEDRICO HU Rep #: [id number] : 1935 89 From: Nathaniel Beverly MD PCP: Dr. Nithin Acevedo MD Status:ADM IN [id number] - General General Date of Admission: [...] to a monitored bed for further management [facility] Medical History Afib CAD (coronary [...] Reaction Status Date / Time finasteride (From zoojoo.BE) Allergy Hives Verified 07/21/25 10:26 Social History [...] pitting edema (more content not included)... Normal [facility] Hematocrit Auto (Bld) [Volum e fraction]Ordered By: Fely Parra on 07-21-2025 Hematocrit (Bld) [Volume fraction] 29.3 % Low 40-54 [facility] Hemoglobin measurementOrdere d By: Fely Parra on 07-21-2025 Hemoglobin (Bld) [Mass/Vol] 8.7 g/dL Low 13.0-16.5 [facility] Immature granulocytes/100 WB C Auto (Bld)Ordered By: Fely Parra on 07-21-2025 Immature granulocytes/100 WBC (Bld) 0.600 % 0.0-0.9 [facility] Comment on above: IG% - Immature Granu locytes (promyelocytes, myelocytes and metamyelocytes) > 1% indicates that a LEFT SHIFT is Present. International normalized rat io (INR) calculationOrdered By: Fely Parra on 07-21-2025 INR Coag (Bld) [Relative time] 1.3 {INR} [facility] Iron measurement (mass/mass) Ordered By: Nathaniel Beverly on 07-21-2025 Iron (Unsp spec) [Mass/Mass] 24 ug/dL Low 65-175 [facility] Iron+Iron Binding Capacityon 07-21-2025 Iron [Mass/Vol] 24 ug/dL Low 65-175 [facility] Comment on above: Performed By: #### L 300.3900, L500.2500, L100.0100 #### [facility] Laboratory [address] [place], [address] IRON SATURATION 9.0 Normal 9-55 [facility] Comment on above: Performed By: #### L 300.3900, L500.2500, L100.0100 #### [facility] [address] [place], [address] TIBC 281 ug/dL Normal 250-450 [facility] Comment on above: Performed By: #### L 300.3900, L500.2500, L100.0100 #### [facility] [address] [place], [address] UIBC 257 ug/dL Normal 228-428 [facility] Comment on above: Performed By: #### L 300.3900, L500.2500, L100.0100 #### [facility] [facility] [address] [place], [address] Kidney and Bladderon 025 Kidney and Bladder [facility] Imaging Services [address] [place] [address] Kidney and Bladder MR#: [id number] Acct: [id number] Name: FEDERICO HU Rep #: [id number] : 1935 M 89 From: Yomi Dawn MD PCP: Dr. Nithin Acevedo MD Status: ADM IN Study: Kidney and Bladder Date of Exam: 07/21/25 Exam# [id number] Ordering Dr: Nathaniel Beverly MD PROCEDURE: KIDNEY [...] thinly septated cyst is present in the exh-jk-hpwmfiou pole. Urinary bladder pre-void volume 716 mL. Wall thickness 3 mm. Ureteral jets visualized bilaterally. US/Kidney and Bladder IMPRESSION: Right kidney 10.9 cm, left kidney 8.7 cm. No hydronephrosis. 5.1 ??? 5.7 ??? 4.8 cm thinly septated cyst in the jnn-oo-wdwtbmyy left kidney. Normal bladder with bilateral ureteral jets. Reading Location: [address] CC: Dr. Nathaniel Beverly MD; Dr. Nithin Acevedo MD Product Consultant: Signed Normal [facility] L501.4021on 07-21-2025 Trop T High Sen 91 ng/L Invalid Interpretation Code <=22 [facility] Comment on above: Result Comment: Crit ical Result(s) Called at 1122: by: ZONIA MUÑOZ TO [facility].??Results read back by same. Performed By: #### L 300.3900, L500.2500, L100.0100 #### [facility] [address] [place], [address] MCV (mean corpuscular volume ) determinationOrdered By: Fely Parra on 07-21-2025 MCV (RBC) [Entitic vol] 88.3 fL 80-94 [facility] Mean corpuscular hemoglobin (MCH) determinationOrdered By: Fely Parra on 07-21-2025 MCH (RBC) [Entitic mass] 26.2 pg Low 27.0-32.0 [facility] Mean corpuscular hemoglobin concentration (MCHC) determinationOrdered By: Fely Parra on 07-21-2025 MCHC (RBC) [Mass/Vol] 29.7 g/dL Low 32-36 [facility] Mean platelet volume determi nationOrdered By: Fely Parra on 07-21-2025 Platelet mean volume (Bld) [Entitic vol] 12.2 fL High 6.2-12.0 [facility] Monocyte percentageOrdered B y: Fely Parra on 07-21-2025 Monocytes/100 WBC (Bld) 9.0 % 0-10 [facility] Natriuretic peptide.B prohor carina N-Terminal [Mass/volume] in Serum or PlasmaOrdered By: Fely Parra on 07-21-2025 Natriuretic peptide.B prohormone N-Terminal [Mass/Vol] 3236 pg/mL High <1800 [facility] Comment on above: Heart Failure Unlike ly: < 300 pg/mLHeart Failure Likely< 50 Years: > 450 pg/mL50-75 Years: > 900 pg/mL>75 Years: > 1800 pg/mL Neutrophil percentageOrdered By: Fely Parra on 07-21-2025 Neutrophils/100 WBC (Bld) 74.0 % High 47-70 [facility] No Panel InformationOrdered By: Nathaniel Beverly on 07-21-2025 Unsaturated Iron Binding Capacity 257 ug/dL 228-428 [facility] Nucleated red blood cell per centageOrdered By: Fely Parra on 07-21-2025 Nucleated RBC/100 WBC (Bld) [Ratio] 0 % 0-5 [facility] Platelet countOrdered By: Carolina Parra on 07-21-2025 Platelets (Bld) [#/Vol] 120 10*3/uL Low 150-450 [facility] Potassium measurement (mass/ volume)Ordered By: Fely Parra on 07-21-2025 Potassium (Unsp spec) [Mass/Vol] 4.6 mmol/L 3.3-5.1 [facility] Pro- Brain NATRIURETIC PEPTI Sugey 07-21-2025 Natriuretic peptide B (Bld) [Mass/Vol] 3236 pg/mL High <=1800 [facility] Comment on above: Result Comment: Hear t Failure Unlikely: < 300 pg/mL Heart Failure Likely < 50 Years: > 450 pg/mL 50-75 Years: > 900 pg/mL >75 Years: > 1800 pg/mL Performed By: #### L 300.3900, L500.2500, L100.0100 #### [facility] [address] [place], [address] Prothrombin Time w/INRon INR Coag (PPP) [Relative time] 1.3 {INR} Normal [facility] Comment on above: Performed By: #### L 300.3900, L500.2500, L100.0100 #### [facility] [address] [place], [address] PT Coag (PPP) [Time] 16.8 s High 11.7-14.9 [facility] Comment on above: Performed By: #### L 300.3900, L500.2500, L100.0100 #### [facility] [address] [place], [address] Prothrombin timeOrdered By: Fely Parra on 07-21-2025 PT Coag (PPP) [Time] 16.8 s High 11.7-14.9 [facility] RBC Auto (Bld) [#/Vol]Ordere d By: Fely Parra on 07-21-2025 RBC (Bld) [#/Vol] 3.32 10*6/uL Low 4.6-6.2 [facility] Retic Panelon 07-21-2025 IM RET FRACTION 12.80 Normal 3.00-15.90 [facility] Comment on above: Performed By: #### L 300.3900, L500.2500, L100.0100 #### [facility] [address] [place], [address] RET-HE 25.9 pg Low 30-35 [facility] Comment on above: Performed By: #### L 300.3900, L500.2500, L100.0100 #### [facility] [address] [place], [address] Retic Count 1.08 Normal 0.5-1.5 [facility] Comment on above: Performed By: #### L 300.3900, L500.2500, L100.0100 #### [facility] [address] [place], [place], [address] Reticulocyte hemoglobin equi valent (RET-He) measurementOrdered By: Nathaniel Beverly on 07-21-2025 Hemoglobin (Reticulocytes) [Entitic mass] 25.9 pg Low 30-35 [facility] Reticulocytes Auto (Bld) [#/ Vol]Ordered By: Nathaniel Beverly on 07-21-2025 Reticulocytes/100 RBC (Bld) 1.08 % 0.5-1.5 [facility] Serum creatinine measurement (mass/volume)Ordered By: Fely Parra on 07-21-2025 Creatinine [Mass/Vol] 3.12 mg/dL High 0.70-1.20 [facility] Serum glucose measurement (m ass/volume)Ordered By: Fely Parra on 07-21-2025 Glucose [Mass/Vol] 166 mg/dL High 70-99 [facility] Serum or plasma calcium karthik urement (mass/volume)Ordered By: Fely Parra on 07-21-2025 Calcium [Mass/Vol] 10.7 mg/dL 7.6-11.0 [facility] Serum or plasma iron saturat ion measurement (mass fraction)Ordered By: Nathaniel Beverly on 07-21-2025 Iron saturation [Mass fraction] 9.0 % 9-55 [facility] Serum or plasma urea nitroge n measurement (mass/volume)Ordered By: Fely Parra on 07-21-2025 Urea nitrogen [Mass/Vol] 63 mg/dL High 4-19 [facility] Sodium levelOrdered By: Rosa Parra on 07-21-2025 Sodium [Moles/Vol] 142 mmol/L 133-145 [facility] Troponin T HS 2 HRon 025 Trop T High Sen 87 ng/L Invalid Interpretation Code <=22 [facility] Comment on above: Result Comment: Crit ical Result(s) Called at 1407: by: ZONIA MUÑOZ TO [facility]. ??Results read back by same. Performed By: #### L 499.0042 #### [facility] [address] [facility] [place], [address] Troponin T HS 4 HRon 025 Trop T High Sen 87 ng/L Invalid Interpretation Code <=22 [facility] Comment on above: Result Comment: Crit ical Result(s) Called at: by: Anthony Cash??Results read back by same. Performed By: #### L 499.0043 #### [facility] [address] [place], [place], [address] Troponin T.cardiac [Mass/vol ume] in Serum or Plasma by High sensitivity methodOrdered By: Fely Parra on 07-21-2025 Troponin T.cardiac High sensitivity method [Mass/Vol] 87 ng/L Critically high <22 [facility] Comment on above: Critical Result(s) C alled at: by: Anthony Cash Results read back by same. Troponin T.cardiac High sensitivity method [Mass/Vol] 87 ng/L Critically high <22 [facility] Comment on above: Critical Result(s) C alled at 1407: by: ZONIA MUÑOZ TO [facility]ENT[facility]. Results read back by same. Troponin T.cardiac High sensitivity method [Mass/Vol] 91 ng/L Critically high <22 [facility] Comment on above: Critical Result(s) C alled at 1122: by: [facility]IA [facility] [facility]. Results read back by same. Vitamin B12on 07-21-2025 Cobalamin (Vitamin B12) [Mass/Vol] 471 pg/mL Normal 180-914 [facility] Comment on above: Performed By: #### L 300.3900, L500.2500, L100.0100 #### [facility] [address] [place], [place], [address] Vitamin B12 ser/plasOrdered By: Nathaniel Beverly on 07-21-2025 Cobalamin (Vitamin B12) [Mass/Vol] 471 pg/mL 180-914 [facility] White blood cell (WBC) count Ordered By: Fely Parra on 07-21-2025 WBC (Bld) [#/Vol] 5.2 10*3/uL 4.4-11.0 [facility] BMP with eGFRon 05-10-2025 AGE 89 years Normal [facility] Comment on above: Performed By: #### 2 04382 #### [facility],[address] [place] [address] Anion gap [Moles/Vol] 9 mmol/L Low 10 - 20 [facility] Comment on above: Performed By: #### 2 43437 #### [facility],[address] [place] [address] BMP with eGFR Normal [facility] Comment on above: Result Comment: BASI C METABOLIC PANEL Performed By: #### 2 79631 #### [facility],[address] [place] [address] Calcium [Mass/Vol] 9.9 mg/dL Normal 8.5 - 10.1 [facility] Comment on above: Performed By: #### 2 05026 #### [facility],[address] [place] [address] Chloride [Moles/Vol] 108 mmol/L High 98 - 107 [facility] Comment on above: Performed By: #### 2 12899 #### [facility],[address] [place] [address] 54445 CO2 [Moles/Vol] 29.5 mmol/L Normal 21.0 - 32.0 [facility] Comment on above: Performed By: #### 2 08722 #### [facility],[address] [place] [address] 22068 Creatinine [Mass/Vol] 3.39 mg/dL High 0.70 - 1.30 [facility] Comment on above: Performed By: #### 2 45153 #### [facility],[address] [place] [address] 34089 eGFR 17 ML/MINUTE Low 60 - 999 [facility] Comment on above: Performed By: #### 2 76681 #### [facility],[address] [place] [address] 05135 eGFR(AA) 21 ML/MINUTE Low 60 - 999 [facility] Comment on above: Result Comment: ACCO RDING TO THE NATIONAL KIDNEY DISEASE EDUCATION PROGRAM(NKDE), A NORMAL eGFR IS A VALUE GREATER THAN OR EQUAL TO 60 ML/MIN/1.73 SQ METERS. CHRONIC KIDNEY DISEASE: <60mL/MIN/1.73 SQ METERS KIDNEY FAILURE: <15mL/MIN/1.73 SQ METERS THIS TEST SHOULD ONLY BE USED FOR PATIENTS 18 YEARS OF AGE AND OLDER. Performed By: #### 2 34257 #### [facility],[address] [place] [address]1052 Glucose [Mass/Vol] 81 mg/dL Normal 74 - 106 [facility] Comment on above: Performed By: #### 2 31077 #### [facility],[address] [place] [address] Potassium [Moles/Vol] 4.7 mmol/L Normal 3.5 - 5.1 [facility] Comment on above: Performed By: #### 2 59660 #### [facility],[address] [place] [address]28[address] Sodium [Moles/Vol] 142 mmol/L Normal 136 - 145 [facility] Comment on above: Performed By: #### 2 92441 #### [facility],[address] [place] [address] 34117 Urea nitrogen [Mass/Vol] 70 mg/dL High 7 - 18 [facility] Comment on above: Performed By: #### 2 13181 #### [facility],[address] [place] [address] 42228 CBC + DIFFon 05-10-2025 Baso # 0.04 x10EE3/UL Normal 0.00 - 0.10 [facility] Comment on above: Performed By: #### 2 24682 #### [facility],[address] [place] [address] 41179 Basophils/100 WBC (Bld) 0.7 % Normal 0.0 - 2.0 [facility] Comment on above: Performed By: #### 2 17631 #### [facility],[address] [place] [address] 68629 CBC + DIFF Normal [facility] Comment on above: Result Comment: CBC- COMPLETE BLOOD COUNT Performed By: #### 2 12932 #### [facility],[address] [place] [address] 45441 EO # 0.23 x10EE3/UL Normal 0.00 - 0.50 [facility] Comment on above: Performed By: #### 2 69766 #### [facility],[address] [place] [address] 24520 Eosinophils/100 WBC (Bld) 4.8 % Normal 0.0 - 7.0 [facility] Comment on above: Performed By: #### 2 15558 #### [facility],[address] [place] [address] Erythrocyte distribution width (RBC) [Ratio] 14.8 % Normal 12.0 - 15.6 [facility] Comment on above: Performed By: #### 2 32634 #### [facility],[address] [place], [place] [id number] Hematocrit (Bld) [Volume fraction] 30.3 % Low 40.0 - 52.0 [facility] Comment on above: Performed By: #### 2 48444 #### [facility],[address] [place], [place] [id number] Hemoglobin (Bld) [Mass/Vol] 9.8 g/dL Low 13.0 - 17.5 [facility] Comment on above: Performed By: #### 2 55429 #### [facility],[address] [place] [address] 63771 Lymph # 0.83 x10EE3/UL Normal 0.80 - 2.80 [facility] Comment on above: Performed By: #### 2 43485 #### [facility],[address] [place] [address] 76831 Lymphocytes/100 WBC (Bld) 16.9 % Low 20.0 - 45.0 [facility] Comment on above: Performed By: #### 2 82620 #### [facility],[address] [place] [address] MANUAL DIFF N/A Normal [facility] Comment on above: Performed By: #### 2 73966 #### [facility],[address] [place] [address] MCH (RBC) [Entitic mass] 27 pg Normal 27 - 33 [facility] Comment on above: Performed By: #### 2 01377 #### [facility],[address] [place] [address] MCHC 32 X10 3 Normal 32 - 36 [facility] Comment on above: Performed By: #### 2 75234 #### [facility],[address] [place] [address] MCV (RBC) [Entitic vol] 84 fL Normal 81 - 98 [facility] Comment on above: Performed By: #### 2 81142 #### [facility],[address] [place] [address] [place] # 0.42 x10EE3/UL Normal 0.20 - 1.00 [facility] Comment on above: Performed By: #### 2 38816 #### [facility],[address] [place] [address] MONOS % 8.5 % Normal 0.0 - 10.0 [facility] Comment on above: Performed By: #### 2 45095 #### [facility],[address] [place], [place] [id number] Morphology Mumtaz (Bld) [Interp] N/A Normal [facility] Comment on above: Performed By: #### 2 93117 #### [facility],[address] [place] [address] Neut # 3.39 x10EE3/UL Normal 1.50 - 7.10 [facility] Comment on above: Performed By: #### 2 76543 #### [facility],[address] [place] [address] 82432 Neutrophils/100 WBC (Bld) 69.1 % Normal 46.0 - 76.0 [facility] Comment on above: Performed By: #### 2 21595 #### [facility],[address] [place], [place] [id number] PLATELET 106 x10EE3/UL Low 150 - 450 [facility] Comment on above: Performed By: #### 2 47800 #### [facility],[address] [place] [address] Platelet mean volume (Bld) [Entitic vol] 10.8 fL High 6.4 - 10.5 [facility] Comment on above: Result Comment: AUTO MATED DIFFERENTIAL Performed By: #### 2 09639 #### [facility],[address] [place] [address] RBC 3.60 x 10EE6/UL Low 4.50 - 6.00 [facility] Comment on above: Performed By: #### 2 27237 #### [facility],[address] [place], [place] [address] WBC 4.9 x 10EE3/UL Normal 4.5 - 10.8 [facility] Comment on above: Performed By: #### 2 14962 #### [facility],[address] [place], [place] [id number] NT-proBNPon 05-10-2025 Natriuretic peptide B (Bld) [Mass/Vol] 2385 pg/mL High 0 - 450 [facility] Comment on above: Performed By: #### 2 13314 #### [place] [id number] CNPNon 04-08-2025 CNPN Telephone ([facility]) FEDERICO HU ([id number]) 1935 M Date Time Provider Department 04/08/25 GISELL CASSIDY PULMWS During your visit today, we recorded the following information about you: Gisell Cassidy APRN.FIRST AID TEACHER 04/08/2025 12:50 PM Signed Reviewed results of sputum culture along with recent CT findings. Recommend starting antibiotic and will send to preferred pharmacy. Plan to repeat chest CT as scheduled in June. Patient agreeable and questions answered. Gisell Cassidy APRN.FIRST AID TEACHER Allergies As of Date: 04/08/2025 Noted Allergy Reaction FEXOFENADINE 11/05/2024 16 - Unknown PROSCAR (FINASTERIDE) 07/02/2010 2 - Rash Date Reviewed: 04/01/2025 Reviewed by: Gisell Cassidy APRN.FIRST AID TEACHER - Fully Assessed Reason for Visit: Results [...] at bedtime. 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 Use to check [...] days. Enco (more content not included)... Normal [facility] Bacteria Spec Resp Culton Bacteria identified Respiratory culture Nom (Unsp spec) ORGANISM ID: 1 Few Proteus mirabilis Insignificant colony count. No further workup. ORGANISM ID: 2 Moderate normal respiratory jessica GRAM STAIN: Few Mixed oral jessica Rare Polymorphonuclear leukocytes Abnormal [facility] Comment on above: Performed By: #### 3 2355-0 ####[facility] [id number] [address] [place] CNOVon 04-01-2025 CNOV Office Visit (PULMWS ) FEDERICO HU ([id number]) 1935 M Date Time Provider Department 04/01/25 11:00 AM GISELL CASSIDY PULMWS During your visit today, we recorded the following information about you: Pulse Blood pressure Weight 57/minute 106/64 156.9 kg Gisell Cassidy, PLANNING DIRECTOR.FIRST AID TEACHER 04/01/2025 6:54 PM Signed Pulmonary Medicine Patients [...] L Chronic diastolic CHF (congestive heart failure) ([facility]) 07/22/2018 CKD (chronic kidney disease) stage 4, GFR 15-29 ml/min ([facility]) 07/22/2018 CORONARY ATHEROSCLER UNSPEC VESSEL 01/03/2009 2 [...] urinary tract symptoms (LUTS) 08/08/2010 Morbid obesity ([facility]) Multiple papillomata and wet crab yaws due [...] to see current settings/supplies/DME information. DEXCOM G7 GROOVER OPERATOR Misc Generic drug: Blood-Glucose Meter,Continuous Dx: E11.49. [...] SL tabl (more content not included)... Normal [facility] CT CHEST WO IVCONon 04-01-20 CT CHEST WO IVCON * * *Final Report* * * DATE OF EXAM: Apr 01 2025 11:01AM [facility] 0541 - CT CHEST WO IVCON [...] of the left lower lobe is noted. Product Consultant: QUYEN Transcribe Date/Time: Apr 08 2025 10:05A Dictated by : TAYLOR BARR MD This examination was interpreted and the report reviewed and electronically signed by: TAYLOR BARR MD on Apr 08 2025 10:11AM EST [id number] Normal [facility] CNOVon 03-07-2025 CNOV Office Visit (INTMWS ) FEDERICO HU ([id number]) 1935 M Date Time Provider Department 03/07/25 11:00 AM KATHERIN MCKINNON INTMWS During your visit today, we recorded the following information about you: Pulse Respiration Blood pressure Weight 66/minute 18/minute 100/52 157 kg Katherin Mckinnon, PLANNING DIRECTOR.FIRST AID TEACHER 03/07/2025 12:42 PM Signed CC: Patient presents [...] switch from Farxiga to Jardiance by his watch guard gate, which occurred only a few days before onset of pain. Hypertension: taking medications as prescribed, denies side effects. Does not check BP at home. Symptoms: Dizziness/Lightheaded - No Chest Pain - No Shortness of Breath - No Swelling Yes :History of bilateral lower kidney disease Fatigue No Afib- medications managed by watch guard gate. Anticoagulation: yes, Eliquis; Rate control: Yes; rhythm [...] L Chronic diastolic CHF (congestive heart failure) ([facility]) 07/22/2018 CKD (chronic kidney disease) stage 4, GFR 15-29 ml/min ([facility]) 07/22/2018 CORONARY ATHEROSCLER UNSPEC VESSEL 01/03/2009 2 V CABG at age 71 ECG 12-26: RBBB per [place] ELEVATED PROSTATE SPECIFIC ANTIGEN 02/01/2009 PSA 4.2 [...] daily at bedtime. Blood-Glucose Meter,Continuous (DEXCOM G7 GROOVER OPERATOR) [facility] Dx: E11.49. Insulin: Yes. Use to check blood sugars at least 4 times a day (more content not included)... [facility] FEDERICO HU ([id number]) 1935 M Date Time Provider Department 02/18/25 [...] Date Reviewed: 02/15/2025 Reviewed by: Jodie Bowers APRN.FIRST AID TEACHER - Fully Assessed Prescriptions as of 02/18/2025 - doxazosin (CARDURA) 2 mg tablet Take 1 tablet by mouth daily at bedtime. 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 Use to check [...] Encounter Status:Closed by IAFELICE, CHRISTAL on 02/18/25 [facility] 02-17-2025 MARCIA Telephone (LISANDRAO) FEDERICO HU ([id number]) 1935 M Date Time Provider Department 02/17/25 JODIE BOWERS During your visit today, we recorded the following information about you: Jodie Bowers APRN.FIRST AID TEACHER 02/17/2025 9:23 AM Signed Pt is scheduled [...] CT and send in a prescription to [facility] for his antibiotic. Jodie Bowers APRN.FIRST AID TEACHER 02/18/2025 11:58 AM Signed You Kristin Guevara [...] Date Reviewed: 02/15/2025 Reviewed by: Jodie Bowers APRN.FIRST AID TEACHER - Fully Assessed Reason for Visit: Pulmonary Optimization [Other] Prescriptions as of 02/18/2025 - doxazosin (CARDURA) 2 mg tablet Take 1 tablet by mouth daily at bedtime. 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 Use to check [...] carotid arter (more content not included)... Normal [facility] CBC W Auto Differential pane l (Bld)on 02-15-2025 Basophils (Bld) [#/Vol] 0.04 10*3/uL [facility] Basophils/100 WBC (Bld) 0.8 % [facility] Differential cell count method Nom (Bld) Auto [facility] Eosinophils (Bld) [#/Vol] 0.21 10*3/uL [facility] Eosinophils/100 WBC (Bld) 4 % [facility] Erythrocyte distribution width (RBC) [Ratio] 13.6 % 11.5 - 15.0 % [facility] Hematocrit (Bld) [Volume fraction] 35.4 % Low 39.0 - 51.0 % [facility] Hemoglobin (Bld) [Mass/Vol] 10.9 g/dL Low 13.0 - 17.0 g/dL [facility] Immature granulocytes (Bld) [#/Vol] [facility] Immature granulocytes/100 WBC (Bld) 0.2 % [facility] Interpretation and review of laboratory results Abnormal [facility] Lymphocytes (Bld) [#/Vol] 0.87 10*3/uL Low [facility] Lymphocytes/100 WBC (Bld) 16.7 % [facility] MCH (RBC) [Entitic mass] 27.9 pg 26.0 - 34.0 pg [facility] MCHC (RBC) [Mass/Vol] 30.8 g/dL 30.5 - 36.0 g/dL [facility] MCV (RBC) [Entitic vol] 90.5 fL 80.0 - 100.0 fL [facility] Monocytes (Bld) [#/Vol] 0.57 10*3/uL [facility] Monocytes/100 WBC (Bld) 11 % [facility] Neutrophils (Bld) [#/Vol] 3.5 10*3/uL [facility] Neutrophils/100 WBC (Bld) 67.3 % [facility] Nucleated RBC (Bld) [#/Vol] [facility] Nucleated RBC/100 WBC (Bld) [Ratio] 0 % /100 WBC [facility] Platelet mean volume (Bld) [Entitic vol] 12.3 fL 9.0 - 12.7 fL [facility] Platelets (Bld) [#/Vol] 123 10*3/uL Low [facility] RBC (Bld) [#/Vol] 3.91 10*6/uL Low 4.20 - 6.0 0 m/uL [facility] WBC (Bld) [#/Vol] 5.2 10*3/uL [facility] Basophils (Bld) [#/Vol] 0.04 10*3/uL Normal <0.11 [facility] Comment on above: Order Comment: Speci men Type: BLOOD SPECIMEN Ordering Facility: [facility] [place] Address: [address] [place] [address] Performed By: #### 2 731-8 #### [facility] CLIA [id number] [address] [place] [address] [place] Basophils/100 WBC (Bld) 0.8 % Normal [facility] Comment on above: Order Comment: Speci men Type: BLOOD SPECIMEN Ordering Facility: [facility] [place] Address: [address] [place] [address] Performed By: #### 2 731-8 #### [facility] CLIA [id number] [address] [place] [address] [place] Differential cell count method Nom (Bld) Auto Normal [facility] Comment on above: Order Comment: Speci men Type: BLOOD SPECIMEN Ordering Facility: [facility] [place] Address: [address] [place] [address] Performed By: #### 2 731-8 #### [facility] CLIA [id number] [address] [place] [address] [place] Eosinophils (Bld) [#/Vol] 0.21 10*3/uL Normal <0.46 [facility] Comment on above: Order Comment: Speci men Type: BLOOD SPECIMEN Ordering Facility: [facility] [place] Address: [address] [place] [address] Performed By: #### 2 731-8 #### [facility] CLIA [id number] [address] [place] [address] [place] Eosinophils/100 WBC (Bld) 4.0 % Normal [facility] Comment on above: Order Comment: Speci men Type: BLOOD SPECIMEN Ordering Facility: [facility] [place] Address: [address] [place] [address] Performed By: #### 2 731-8 #### [facility] CLIA [id number] [address] [id number] [address] [place] Erythrocyte distribution width (RBC) [Ratio] 13.6 % Normal 11.5-15.0 [facility] Comment on above: Order Comment: Speci men Type: BLOOD SPECIMEN Ordering Facility: [facility] [place] Address: [address] [place] [address] Performed By: #### 2 731-8 #### [facility] CLIA [id number] [address] [place] [address] [place] Hematocrit (Bld) [Volume fraction] 35.4 % Low 39.0-51.0 [facility] Comment on above: Order Comment: Speci men Type: BLOOD SPECIMEN Ordering Facility: [facility] [place] Address: [address] [place] [address] Performed By: #### 2 731-8 #### [facility] CLIA [id number] [address] [place] [address] [place] Hemoglobin (Bld) [Mass/Vol] 10.9 g/dL Low 13.0-17.0 [facility] Comment on above: Order Comment: Speci men Type: BLOOD SPECIMEN Ordering Facility: [facility] [place] Address: [address] [place] [address] Performed By: #### 2 731-8 #### [facility] CLIA [id number] [address] [place] [address] [place] Immature granulocytes (Bld) [#/Vol] 10*3/uL Normal <0.10 [facility] Comment on above: Order Comment: Speci men Type: BLOOD SPECIMEN Ordering Facility: [facility] [place] Address: [address] [place] [address] Performed By: #### 2 731-8 #### [facility] CLIA [id number] [address] [place] [address] [place] Immature granulocytes/100 WBC (Bld) 0.2 % Normal [facility] Comment on above: Order Comment: Speci men Type: BLOOD SPECIMEN Ordering Facility: [facility] [place] Address: [address] [place] [address] Performed By: #### 2 731-8 #### [facility] CLIA [id number] [address] [place] [address] [place] Lymphocytes (Bld) [#/Vol] 0.87 10*3/uL Low 1.00-4.00 [facility] Comment on above: Order Comment: Speci men Type: BLOOD SPECIMEN Ordering Facility: [facility] [place] Address: [address] [place] [address] Performed By: #### 2 731-8 #### [facility] CLIA [id number] [address] [place] [address] [place] Lymphocytes/100 WBC (Bld) 16.7 % Normal [facility] Comment on above: Order Comment: Speci men Type: BLOOD SPECIMEN Ordering Facility: [facility] [place] Address: [address] [place] [address] Performed By: #### 2 731-8 #### [facility] CLIA [id number] [address] [place] [address] [place] MCH (RBC) [Entitic mass] 27.9 pg Normal 26.0-34.0 [facility] Comment on above: Order Comment: Speci men Type: BLOOD SPECIMEN Ordering Facility: [facility] [place] Address: [address] [place] [address] Performed By: #### 2 731-8 #### [facility] CLIA [id number] [address] [place] [address] [place] MCHC (RBC) [Mass/Vol] 30.8 g/dL Normal 30.5-36.0 [facility] Comment on above: Order Comment: Speci men Type: BLOOD SPECIMEN Ordering Facility: [facility] [place] Address: [address] [place] [address] Performed By: #### 2 731-8 #### [facility] CLIA [id number] [address] [place] [address] [place] MCV (RBC) [Entitic vol] 90.5 fL Normal 80.0-100.0 [facility] Comment on above: Order Comment: Speci men Type: BLOOD SPECIMEN Ordering Facility: [facility] [place] Address: [address] [place] [address] Performed By: #### 2 731-8 #### [facility] CLIA [id number] [address] [place] [address] [place] Monocytes (Bld) [#/Vol] 0.57 10*3/uL Normal <0.87 [facility] Comment on above: Order Comment: Speci men Type: BLOOD SPECIMEN Ordering Facility: [facility] [place] Address: [address] [place] [address] Performed By: #### 2 731-8 #### [facility] CLIA [id number] [address] [place] [address] [place] Monocytes/100 WBC (Bld) 11.0 % Normal [facility] Comment on above: Order Comment: Speci men Type: BLOOD SPECIMEN Ordering Facility: [facility] [place] Address: [address] [place] [address] Performed By: #### 2 731-8 #### [facility] CLIA [id number] [address] [place] [address] [place] Neutrophils (Bld) [#/Vol] 3.50 10*3/uL Normal 1.45-7.50 [facility] Comment on above: Order Comment: Speci men Type: BLOOD SPECIMEN Ordering Facility: [facility] [place] Address: [address] [place] [address] Performed By: #### 2 731-8 #### [facility] CLIA [id number] [address] [place] [address] [place] Neutrophils/100 WBC (Bld) 67.3 % Normal [facility] Comment on above: Order Comment: Speci men Type: BLOOD SPECIMEN Ordering Facility: [facility] [place] Address: [address] [place] [address] Performed By: #### 2 731-8 #### [facility] CLIA [id number] [address] [place] [address] [place] Nucleated RBC (Bld) [#/Vol] 10*3/uL Normal <0.01 [facility] Comment on above: Order Comment: Speci men Type: BLOOD SPECIMEN Ordering Facility: [facility] [place] Address: [address] [place] [address] Performed By: #### 2 731-8 #### [facility] CLIA [id number] [address] [place] [address] [place] Nucleated RBC/100 WBC (Bld) [Ratio] 0.0 /100 WBC Normal [facility] Comment on above: Order Comment: Speci men Type: BLOOD SPECIMEN Ordering Facility: [facility] [place] Address: [address] [place] [address] Performed By: #### 2 731-8 #### [facility] CLIA [id number] [address] [place] [address] [place] Platelet mean volume (Bld) [Entitic vol] 12.3 fL Normal 9.0-12.7 [facility] Comment on above: Order Comment: Speci men Type: BLOOD SPECIMEN Ordering Facility: [facility] [place] Address: [address] [place] [address] Performed By: #### 2 731-8 #### [facility] CLIA [id number] [address] [place] [address] [place] Platelets (Bld) [#/Vol] 123 10*3/uL Low 150-400 [facility] Comment on above: Order Comment: Speci men Type: BLOOD SPECIMEN Ordering Facility: [facility] [place] Address: [address] [place] [address] Performed By: #### 2 731-8 #### [facility] CLIA [id number] [address] [place] [address] [place] RBC (Bld) [#/Vol] 3.91 10*6/uL Low 4.20-6.00 [facility] Comment on above: Order Comment: Speci men Type: BLOOD SPECIMEN Ordering Facility: [facility] [place] Address: [address] [place] [address] Performed By: #### 2 731-8 #### [facility] CLIA [id number] [address] [place] [address] [place] WBC (Bld) [#/Vol] 5.20 10*3/uL Normal 3.70-11.00 [facility] Comment on above: Order Comment: Speci men Type: BLOOD SPECIMEN Ordering Facility: [facility] [place] Address: [address] [place] [address] Performed By: #### 2 731-8 #### [facility] CLIA [id number] [address] [place] [address] [place] CNPNon 02-15-2025 CNPN Telephone (PAHCB1) FEDERICO HU ([id number]) 1935 M Date Time Provider Department 02/15/25 [place]RISTY [place] [address] During your visit today, we recorded the following information about you: Lisa Trivedi LPN 02/15/2025 11:22 AM Signed Letter and medical records received from Dr Strickland via fax. Scanned in to [employer]. Lennie Trivedi LPN Allergies As of Date: 02/15/2025 Noted Allergy Reaction FEXOFENADINE 11/05/2024 16 - Unknown PROSCAR (FINASTERIDE) 07/02/2010 2 - Rash Date Reviewed: 02/15/2025 Reviewed by: Jodie Bowers APRN.FIRST AID TEACHER - Fully Assessed Prescriptions as of 02/15/2025 - doxazosin (CARDURA) 2 mg tablet Take 1 tablet by mouth daily at bedtime. 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 Use to check blood sugars at least 4 times a day - Blood-Glucose Sensor (DEXCOM G7 SENSOR) [facility] Dx: E11.49. ?Insulin: Yes. Apply new [...] Status:Closed by LISA TRIVEDI on 02/15/25 Normal [facility] Comprehensive metabolic 2000 panelOrdered By: Gisell Zavala on 02-15-2025 Albumin [Mass/Vol] 3.9 g/dL 3.9 - 4.9 g/dL [facility] ALP [Catalytic activity/Vol] 82 U/L 38 - 113 U/L [facility] ALT [Catalytic activity/Vol] 10 U/L 10 - 54 U/L [facility] Anion gap [Moles/Vol] 8 mmol/L 8 - 15 mmol/L [facility] AST [Catalytic activity/Vol] 11 U/L Low 14 - 40 U/L [facility] Bilirubin [Mass/Vol] 0.5 mg/dL 0.2 - 1 .3 mg/dL [facility] Calcium [Mass/Vol] 11.9 mg/dL High 8.5 - 10. 2 mg/dL [facility] Chloride [Moles/Vol] 107 mmol/L 98 - 10 7 mmol/L [facility] CO2 [Moles/Vol] 29 mmol/L 22 - 30 mmol/L [facility] Creatinine [Mass/Vol] 2.82 mg/dL High 0.73 - 1.22 mg/dL [facility] GFR/1.73 sq M.predicted among non-blacks MDRD (S/P/Bld) [Vol rate/Area] 21 mL/min/{1.73_m2} Low - PINF [facility] Comment on above: Estimated Glomerular Filtration Rate [...] [Mass/Vol] 90 mg/dL 74 - 99 mg/dL [facility] Comment on above: The [place] Diabete s Association (ADA) provides guidance for [...] Standards of Medical Care in Diabetes 2016, [place] [employer]. Diabetes Care. 2016.39(Suppl 1). Interpretation and review of laboratory results Abnormal [facility] Potassium [Moles/Vol] 4.1 mmol/L 3.7 - 5.1 mmol/L [facility] Protein [Mass/Vol] 6.3 g/dL 6.3 - 8.0 g/dL [facility] Sodium [Moles/Vol] 144 mmol/L 136 - 144 mmol/L [facility] Urea nitrogen [Mass/Vol] 57 mg/dL High 9 - 24 mg/dL [facility] Comprehensive metabolic 2000 panelon 02-15-2025 Albumin [Mass/Vol] 3.9 g/dL Normal 3.9-4.[address] [facility] Comment on above: Order Comment: Speci men Type: BLOOD SPECIMENOrdering Facility: [facility] [place] Address: [address] [place] [address] Performed By: #### 2 4323-8 ####[facility] [id number] [place] [address] [place] ALP [Catalytic activity/Vol] 82 U/L Normal 38-113 [facility] Comment on above: Order Comment: Speci men Type: BLOOD SPECIMENOrdering Facility: [facility] [place] Address: [address] [place] [address] Performed By: #### 2 4323-8 ####[facility] [id number] [place] [address] [place] ALT [Catalytic activity/Vol] 10 U/L Normal 10-54 [facility] Comment on above: Order Comment: Speci men Type: BLOOD SPECIMENOrdering Facility: [facility] [place] Address: [address] [place] [address] Performed By: #### 2 4323-8 ####[facility] LEMUEL MILLTOWNCLIA [id number] [place] [address] [place] Anion gap [Moles/Vol] 8 mmol/L Normal 8-15 [facility] Comment on above: Order Comment: Speci men Type: BLOOD SPECIMENOrdering Facility: [facility] [place] Address: [address] [place] [address] Performed By: #### 2 4323-8 ####[facility]ENTERWNCLIA [id number] [place] [address] [place] AST [Catalytic activity/Vol] 11 U/L Low 14-40 [facility] Comment on above: Order Comment: Speci men Type: BLOOD SPECIMENOrdering Facility: [facility] [place] Address: [address] [place] [address] Performed By: #### 2 4323-8 ####[facility]ENTERWNCLIA [id number] [place] [address] [place] Bilirubin [Mass/Vol] 0.5 mg/dL Normal 0.2-1.3 [facility] Comment on above: Order Comment: Speci men Type: BLOOD SPECIMENOrdering Facility: [facility] [place] Address: [address] [place] [address] Performed By: #### 2 4323-8 ####[facility] MILLWNCLIA [id number] [place] [address] [place] Calcium [Mass/Vol] 11.9 mg/dL High 8.5-10.[address] [facility] Comment on above: Order Comment: Speci men Type: BLOOD SPECIMENOrdering Facility: [facility] [place] Address: [address] [place] [address] Performed By: #### 2 4323-8 ####[facility]ITALNCLIA [id number] [place] [address] [place] Chloride [Moles/Vol] 107 mmol/L Normal 98-107 [facility] Comment on above: Order Comment: Speci men Type: BLOOD SPECIMENOrdering Facility: [facility] [place] Address: [address] [place] [address] Performed By: #### 2 4323-8 ####[facility] [id number] [place] [address] [place] CO2 [Moles/Vol] 29 mmol/L Normal 22-30 [facility] Comment on above: Order Comment: Speci men Type: BLOOD SPECIMENOrdering Facility: [facility] [place] Address: [address] [place] [address] Performed By: #### 2 4323-8 ####[facility] [id number] [place] [address] [place] Creatinine [Mass/Vol] 2.82 mg/dL High 0.73-1.22 [facility] Comment on above: Order Comment: Speci men Type: BLOOD SPECIMENOrdering Facility: [facility] [place] Address: [address] [place] [address] Performed By: #### 2 4323-8 ####[facility] HOSPITALLIA [id number] [place] [address] [place] Creatinine and Glomerular filtration rate.predicted panel (S/P/Bld) 21 mL/min/1.73m??? Low >=60 [facility] Comment on above: Order Comment: Speci men Type: BLOOD SPECIMENOrdering Facility: [facility] [place] Address: [address] [place] [address] Result Comment: Billie mated Glomerular Filtration Rate [...] actual GFR. Performed By: #### 2 4323-8 ####[facility] HOSPITALAMANDA [id number] [place] [address] [place] Glucose [Mass/Vol] 90 mg/dL Normal 74-[address] [facility] Comment on above: Order Comment: Alexia wilson Type: BLOOD SPECIMENOrdering Facility: [facility] [place] Address: [address] [place] [address] Result Comment: The [place] Diabetes Association (ADA) provides guidance for cutoff [...] Standards of Medical Care in Diabetes 2016, [place] Diabetes Association. Diabetes Care. 2016.39(Suppl 1). Performed By: #### 2 4323-8 ####[facility]ITALA [id number] [place] [address] [place] Potassium [Moles/Vol] 4.1 mmol/L Normal 3.7-5.1 [facility] Comment on above: Order Comment: Alexia wilson Type: BLOOD SPECIMENOrdering Facility: [facility] [place] Address: [address] [place] [address] Performed By: #### 2 4323-8 ####[facility] HOSPITALSUDASRHANLIA [id number] [address] [place] Protein [Mass/Vol] 6.3 g/dL Normal 6.3-8.[address] [facility] Comment on above: Order Comment: Speci men Type: BLOOD SPECIMENOrdering Facility: [facility] [place] Address: [address] [place] [address] Performed By: #### 2 4323-8 ####[facility]ITALNCLIA [id number] [place] [address] [place] Sodium [Moles/Vol] 144 mmol/L Normal 136-[address] [facility] Comment on above: Order Comment: Speci men Type: BLOOD SPECIMENOrdering Facility: [facility] [place] Address: [address] [place] [address] Performed By: #### 2 4323-8 ####[facility]ITALNCLIA [id number] [place] [address] [place] Urea nitrogen [Mass/Vol] 57 mg/dL High 9-24 [facility] Comment on above: Order Comment: Speci men Type: BLOOD SPECIMENOrdering Facility: [facility] [place] Address: [address] [place] [address] Performed By: #### 2 4323-8 ####[facility]ITALNCLIA [id number] [place] [address] [place] [id number] 02-15-2025 ECG01 Ventricular Rate : 5 9 BPM Atrial Rate : 277 BPM QRS Duration : 150 ms Q-T Interval : 458 ms QTC Calculation(Bazett) : 453 ms Calculated R Howard : 90 degrees Calculated T Howard : 13 degrees ATRIAL FIBRILLATION WITH SLOW VENTRICULAR RESPONSE WITH PREMATURE VENTRICULAR COMPLEXES COMPLETE RIGHT BUNDLE BRANCH BLOCK ABNORMAL ECG Confirmed by MD JUSTICE, QARAB ([id number]) on 02/16/2025 4:14:50 PM NAME : FEDERICO HU PID : [id number] : 1935 Gender : Male Race : ORD : Procedure Date : Feb 15 2025 09:21:21 Edit Date : Feb 16 2025 16:14:51 Diagnosis: ATRIAL FIBRILLATION WITH SLOW VENTRICULAR RESPONSE WITH PREMATURE VENTRICULAR COMPLEXES COMPLETE RIGHT BUNDLE BRANCH BLOCK ABNORMAL ECG Confirmed by MD RENDON QARAB ([id number]) on 02/16/2025 4:14:50 PM Test Reason : Location : 636 : [facility] Overread By : MD RENDON QARAB Edited By : MD RENDON QARAB Referred By : , Acquired by : Meño pritchard [facility] HISTORY PHYSICALon HISTORY PHYSICAL HNO ID: [id number] Author: JODIE BOWERS APRN.[employer] 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 Author Type: Nurse Practitioner Type: [...] last cardiac OV on 11/23/2024 scanned into [facility] 11/2024 Echo Scanned into [facility] Type 2 diabetes mellitus with neurological manifestations, [...] ASA 11/23/2024 Dr. Strickland, Cardiology, Scanned into [facility] Atrial fibrillation ([facility]) Assessment: paroxymal atrial flutter, s/p cardioversion 2014 at [facility], rate controlled, daily Eliquis, reviewed to withhold 3 days prior to surgery, pt verbalized understanding. 11/23/2024 Dr. Strickland, Cardiology, Scanned into [facility] RBBB (right bundle branch block) Assessment: hx, [...] kidney disease) stage 4, GFR 15-29 ml/min ([facility]) Assessment: following nephrology Creatinine Date Value Ref [...] DATE OF EXAM: Dec 30 2024 11:13AM [facility] 0541 - CT CHEST WO IVCON [...] 35 kg/m2 (more content not included)... Normal [facility] HbA1c (Bld)on 02-15-2025 Average glucose Estimated from glycated hemoglobin (Bld) [Mass/Vol] 117 mg/dL [facility] Comment on above: eAG: (Estimated aver age glucose) is a calculated value from HgbA1c and is marketing representative of the average blood glucose level in the last 2-3 month period. HbA1c (Bld) [Mass fraction] 5.7 % High 4.3 - 5.6 % [facility] Comment on above: [place] Diabetes As sociation guidelines indicate that patients with HgbA1c in the range 5.7-6.4% are at increased risk for development of diabetes, and intervention by lifestyle modification may be beneficial. HgbA1c greater or equal to 6.5% is considered diagnostic of diabetes. Interpretation and review of laboratory results Abnormal [facility] Average glucose Estimated from glycated hemoglobin (Bld) [Mass/Vol] 117 mg/dL Normal [facility] Comment on above: Order Comment: Alexia wilson Type: BLOOD SPECIMEN Ordering Facility: [facility] [place] Address: [address] [place] [address] Result Comment: eAG: (Estimated average glucose) is a calculated value from HgbA1c and is marketing representative of the average blood glucose level in the last 2-3 month period. Performed By: #### 2 4321-2 #### [facility] CLIA [id number] [address] [place] [address] [place] HbA1c (Bld) [Mass fraction] 5.7 % High 4.3-5.6 [facility] Comment on above: Order Comment: Alexia wilson Type: BLOOD SPECIMEN Ordering Facility: [facility] [place] Address: [address] [place] [address] Result Comment: [place] Diabetes Association guidelines indicate that patients with HgbA1c in the range 5.7-6.4% are at increased risk for development of diabetes, and intervention by lifestyle modification may be beneficial. HgbA1c greater or equal to 6.5% is considered diagnostic of diabetes. Performed By: #### 2 4321-2 #### [facility] CLIA [id number] [address] [place] [address] NT PRO BNPon 02-15-2025 Natriuretic peptide.B prohormone N-Terminal [Mass/Vol] 2302 pg/mL High NINF - 450 pg/mL [facility] NT-proBNP SerPl-mCncon 02-15 Natriuretic peptide.B prohormone N-Terminal [Mass/Vol] 2302 pg/mL High <450 [facility] Comment on above: Order Comment: Alexia wilson Type: BLOOD SPECIMEN Ordering Facility: [facility] [place] Address: [address] [place] [address] Performed By: #### 2 4321-2 #### [facility] CLIA [id number] [address] [place] [address] [place] Natriuretic peptide.B foreign lim N-Terminal [Mass/Vol]on 02-15-2025 Interpretation and review of laboratory results Abnormal [facility] CNPNon 01-24-2025 CNPN Telephone (PULMWS) FEDERICO HU ([id number]) 1935 M Date Time Provider Department 01/24/25 [...] 20 capsuleRfl: 0 CT CHEST WO IVCON [[id number]] Order #: [id number] FUTURE Prescriptions as of 01/24/2025 - cefdinir (OMNICEF) 300 mg capsule Take 1 capsule by mouth two times a day for 10 days. - doxazosin (CARDURA) 2 mg tablet Take 1 tablet by mouth daily at bedtime. 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 Use to check blood sugars at least 4 times a day - Blood-Glucose Sensor (DEXCOM G7 SENSOR) [facility] Dx: E11.49. ?Insulin: Yes. Apply new [...] 11/23/2021 Wo (more content not included)... Normal [facility] Basic metabolic 2000 panelon 01-21-2025 Anion gap [Moles/Vol] 8 mmol/L Normal 8-15 [facility] Comment on above: Order Comment: Speci men Type: BLOOD SPECIMEN Ordering Facility: [facility] [place] Address: [address] [place] [address] Performed By: #### 2 4321-2 #### [facility] CLIA [id number] [address] [place] [address] [place] Calcium [Mass/Vol] 12.1 mg/dL High 8.5-10.[address] [facility] Comment on above: Order Comment: Speci men Type: BLOOD SPECIMEN Ordering Facility: [facility] [place] Address: [address] [place] [address] Performed By: #### 2 4321-2 #### [facility] CLIA [id number] [address] [place] [address] [place] Chloride [Moles/Vol] 107 mmol/L Normal 98-107 [facility] Comment on above: Order Comment: Speci men Type: BLOOD SPECIMEN Ordering Facility: [facility] [place] Address: [address] [place] [address] Performed By: #### 2 4321-2 #### [facility] CLIA [id number] [address] [place] [address] [place] CO2 [Moles/Vol] 26 mmol/L Normal 22-30 [facility] Comment on above: Order Comment: Speci men Type: BLOOD SPECIMEN Ordering Facility: [facility] [place] Address: [address] [place] [address] Performed By: #### 2 4321-2 #### [facility] CLIA [id number] [address] [place] [address] [place] Creatinine [Mass/Vol] 2.76 mg/dL High 0.73-1.22 [facility] Comment on above: Order Comment: Speci men Type: BLOOD SPECIMEN Ordering Facility: [facility] [place] Address: [address] [place] [address] Performed By: #### 2 4321-2 #### [facility] CLIA [id number] [address] [place] [address] [place] Creatinine and Glomerular filtration rate.predicted panel (S/P/Bld) 21 mL/min/1.73m??? Low >=60 [facility] Comment on above: Order Comment: Alexia wilson Type: BLOOD SPECIMEN Ordering Facility: [facility] [place] Address: [address] [place] [address] Result Comment: Billie mated Glomerular Filtration Rate [...] GFR. Performed By: #### 2 4321-2 #### [facility] [id number] [address] [place] [address] [place] Glucose [Mass/Vol] 103 mg/dL High 74-[address] [facility] Comment on above: Order Comment: Alexia wilson Type: BLOOD SPECIMEN Ordering Facility: [facility] [place] Address: [address] [place] [address] Result Comment: The [place] Diabetes Association (ADA) provides guidance for cutoff [...] Standards of Medical Care in Diabetes 2016, [place] Diabetes Association. Diabetes Care. 2016.39(Suppl 1). Performed By: #### 2 4321-2 #### [facility] [id number] [address] [place] [address] [place] Potassium [Moles/Vol] 4.4 mmol/L Normal 3.7-5.1 [facility] Comment on above: Order Comment: Speci men Type: BLOOD SPECIMEN Ordering Facility: [facility] [place] Address: [address] [place] [address] Performed By: #### 2 4321-2 #### [facility] CLIA [id number] [address] [place] [address] [place] Sodium [Moles/Vol] 141 mmol/L Normal 136-[address] [facility] Comment on above: Order Comment: Speci men Type: BLOOD SPECIMEN Ordering Facility: [facility] [place] Address: [address] [place] [address] Performed By: #### 2 4321-2 #### [facility] CLIA [id number] [address] [place] [address] [place] Urea nitrogen [Mass/Vol] 74 mg/dL High 9-24 [facility] Comment on above: Order Comment: Speci men Type: BLOOD SPECIMEN Ordering Facility: [facility] [place] Address: [address] [place] [address] Performed By: #### 2 4321-2 #### [facility] CLIA [id number] [address] [place] [address] [place] CBC W Auto Differential pane l (Bld)on 01-21-2025 Basophils (Bld) [#/Vol] 0.05 10*3/uL Normal <0.11 [facility] Comment on above: Order Comment: Speci men Type: BLOOD SPECIMEN Ordering Facility: [facility] [place] Address: [address] [place] [address] Performed By: #### 2 731-8 #### [facility] CLIA [id number] [address] [place], [place] [address] [address] [place] Basophils/100 WBC (Bld) 1.1 % Normal [facility] Comment on above: Order Comment: Speci men Type: BLOOD SPECIMEN Ordering Facility: [facility] [place] Address: [address] [place] [address] Performed By: #### 2 731-8 #### [facility] CLIA [id number] [address] [place] [address] [place] Differential cell count method Nom (Bld) Auto Normal [facility] Comment on above: Order Comment: Speci men Type: BLOOD SPECIMEN Ordering Facility: [facility] [place] Address: [address] [place] [address] Performed By: #### 2 731-8 #### [facility] CLIA [id number] [address] [place] [address] [place] Eosinophils (Bld) [#/Vol] 0.28 10*3/uL Normal <0.46 [facility] Comment on above: Order Comment: Speci men Type: BLOOD SPECIMEN Ordering Facility: [facility] [place] Address: [address] [place] [address] Performed By: #### 2 731-8 #### [facility] CLIA [id number] [address] [place] [address] [place] Eosinophils/100 WBC (Bld) 6.2 % Normal [facility] Comment on above: Order Comment: Speci men Type: BLOOD SPECIMEN Ordering Facility: [facility] [place] Address: [address] [place] [address] Performed By: #### 2 731-8 #### [facility] CLIA [id number] [address] [place] [address] [place] Erythrocyte distribution width (RBC) [Ratio] 13.5 % Normal 11.5-15.0 [facility] Comment on above: Order Comment: Speci men Type: BLOOD SPECIMEN Ordering Facility: [facility] [place] Address: [address] [place] [address] Performed By: #### 2 731-8 #### [facility] CLIA [id number] [address] [place] [address] [place] Hematocrit (Bld) [Volume fraction] 35.9 % Low 39.0-51.0 [facility] Comment on above: Order Comment: Speci men Type: BLOOD SPECIMEN Ordering Facility: [facility] [place] Address: [address] [place] [address] Performed By: #### 2 731-8 #### [facility] CLIA [id number] [address] [place] [address] [place] Hemoglobin (Bld) [Mass/Vol] 11.0 g/dL Low 13.0-17.0 [facility] Comment on above: Order Comment: Speci men Type: BLOOD SPECIMEN Ordering Facility: [facility] [place] Address: [address] [place] [address] Performed By: #### 2 731-8 #### [facility] CLIA [id number] [address] [place] [address] [place] Immature granulocytes (Bld) [#/Vol] 10*3/uL Normal <0.10 [facility] Comment on above: Order Comment: Speci men Type: BLOOD SPECIMEN Ordering Facility: [facility] [place] Address: [address] [place] [address] Performed By: #### 2 731-8 #### [facility] CLIA [id number] [address] [place] [address] [place] Immature granulocytes/100 WBC (Bld) 0.2 % Normal [facility] Comment on above: Order Comment: Speci men Type: BLOOD SPECIMEN Ordering Facility: [facility] [place] Address: [address] [place] [address] Performed By: #### 2 731-8 #### [facility] CLIA [id number] [address] [place] [address] [place] Lymphocytes (Bld) [#/Vol] 0.71 10*3/uL Low 1.00-4.00 [facility] Comment on above: Order Comment: Speci men Type: BLOOD SPECIMEN Ordering Facility: [facility] [place] Address: [address] [place] [address] Performed By: #### 2 731-8 #### [facility] CLIA [id number] [address] [place] [address] [place] Lymphocytes/100 WBC (Bld) 15.8 % Normal [facility] Comment on above: Order Comment: Speci men Type: BLOOD SPECIMEN Ordering Facility: [facility] [place] Address: [address] [place] [address] Performed By: #### 2 731-8 #### [facility] CLIA [id number] [address] [place] [address] [place] MCH (RBC) [Entitic mass] 27.7 pg Normal 26.0-34.0 [facility] Comment on above: Order Comment: Speci men Type: BLOOD SPECIMEN Ordering Facility: [facility] [place] Address: [address] [place] [address] Performed By: #### 2 731-8 #### [facility] CLIA [id number] [address] [place] [address] [place] MCHC (RBC) [Mass/Vol] 30.6 g/dL Normal 30.5-36.0 [facility] Comment on above: Order Comment: Speci men Type: BLOOD SPECIMEN Ordering Facility: [facility] [place] Address: [address] [place] [address] Performed By: #### 2 731-8 #### [facility] CLIA [id number] [address] [place] [address] [place] MCV (RBC) [Entitic vol] 90.4 fL Normal 80.0-100.0 [facility] Comment on above: Order Comment: Speci men Type: BLOOD SPECIMEN Ordering Facility: [facility] [place] Address: [address] [place] [address] Performed By: #### 2 731-8 #### [facility] CLIA [id number] [address] [place] [address] [place] Monocytes (Bld) [#/Vol] 0.54 10*3/uL Normal <0.87 [facility] Comment on above: Order Comment: Speci men Type: BLOOD SPECIMEN Ordering Facility: [facility] [place] Address: [address] [place] [address] Performed By: #### 2 731-8 #### [facility] CLIA [id number] [address] [place] [address] [place] Monocytes/100 WBC (Bld) 12.0 % Normal [facility] Comment on above: Order Comment: Speci men Type: BLOOD SPECIMEN Ordering Facility: [facility] [place] Address: [address] [place] [address] Performed By: #### 2 731-8 #### [facility] CLIA [id number] [address] [place] [address] [place] Neutrophils (Bld) [#/Vol] 2.90 10*3/uL Normal 1.45-7.50 [facility] Comment on above: Order Comment: Speci men Type: BLOOD SPECIMEN Ordering Facility: [facility] [place] Address: [address] [place] [address] Performed By: #### 2 731-8 #### [facility] CLIA [id number] [address] [place] [address] [place] Neutrophils/100 WBC (Bld) 64.7 % Normal [facility] Comment on above: Order Comment: Speci men Type: BLOOD SPECIMEN Ordering Facility: [facility] [place] Address: [address] [place] [address] Performed By: #### 2 731-8 #### [facility] CLIA [id number] [address] [place] [address] [place] Nucleated RBC (Bld) [#/Vol] 10*3/uL Normal <0.01 [facility] Comment on above: Order Comment: Speci men Type: BLOOD SPECIMEN Ordering Facility: [facility] [place] Address: [address] [place] [address] Performed By: #### 2 731-8 #### [facility] CLIA [id number] [address] [place] [address] [place] Nucleated RBC/100 WBC (Bld) [Ratio] 0.0 /100 WBC Normal [facility] Comment on above: Order Comment: Speci men Type: BLOOD SPECIMEN Ordering Facility: [facility] [place] Address: [address] [place] [address] Performed By: #### 2 731-8 #### [facility] CLIA [id number] [address] [place] [address] [place] Platelet mean volume (Bld) [Entitic vol] 12.7 fL Normal 9.0-12.7 [facility] Comment on above: Order Comment: Speci men Type: BLOOD SPECIMEN Ordering Facility: [facility] [place] Address: [address] [place] [address] Performed By: #### 2 731-8 #### [facility] CLIA [id number] [address] [place] [address] [place] Platelets (Bld) [#/Vol] 97 10*3/uL Low 150-400 [facility] Comment on above: Order Comment: Speci men Type: BLOOD SPECIMEN Ordering Facility: [facility] [place] Address: [address] [place] [address] Result Comment: No c lot detected. Performed By: #### 2 731-8 #### [facility] CLIA [id number] [address] [place] [address] [place] RBC (Bld) [#/Vol] 3.97 10*6/uL Low 4.20-6.00 [facility] Comment on above: Order Comment: Speci men Type: BLOOD SPECIMEN Ordering Facility: [facility] [place] Address: [address] [place], [place] [address] Performed By: #### 2 731-8 #### [facility] CLIA [id number] [address] [place] [address] [place] WBC (Bld) [#/Vol] 4.49 10*3/uL Normal 3.70-11.00 [facility] Comment on above: Order Comment: Speci men Type: BLOOD SPECIMEN Ordering Facility: [facility] [place] Address: [address] [place] [address] Performed By: #### 2 731-8 #### [facility] CLIA [id number] [address] [place] [address] [place] CNOVon 01-21-2025 CNOV Office Visit (PULMWS ) FEDERICO HU ([id number]) 1935 M Date Time Provider Department 01/21/25 11:00 AM VIET LEE PULMDRU During your visit today, we recorded the following information about you: Pulse Respiration Blood pressure Weight 52/minute 17/minute 130/66 152.9 kg Height 1.816 m Viet Lee MD 01/21/2025 1:26 PM Signed . Respiratory [place] Note Patient name: Federico Hu PCP: Nithin [...] 0.81 Low Monocytes % % 14.4 Abs [place] <0.87 k/uL 0.64 Eosinophils % % 5.2 [...] DATE OF EXAM: Dec 30 2024 11:13AM [facility] 0541 - CT CHEST WO IVCON [...] L Chronic diastolic CHF (congestive heart failure) ([facility]) 07/22/2018 CKD (chronic kidney disease) stage 4, GFR 15-29 ml/min ([facility]) 07/22/2018 CORONARY ATHEROSCLER UNSPEC VESSEL 01/03/2009 2 [...] left foreh (more content not included)... Normal [facility] CNPNon 01-10-2025 CNPN Telephone (BENEDICTO) FEDERICO HU ([id number]) 1935 M Date Time Provider Department 01/10/25 [...] at bedtime. 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 Use to check [...] Encounter Status:Closed by CHRISTAL LAU on 01/10/25 [facility] John 01-07-2025 MARCIA Telephone (ENSUMN) FEDERICO HU ([id number]) 1935 M Date Time Provider Department 01/07/25 KRISTIN GUVEARA During your visit today, we recorded the [...] at bedtime. 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 Use to check [...] Encounter Status:Closed by JAZLYN CARMEN on 01/07/25 [facility] John 01-05-2025 MARCIA Telephone (BENEDICTO) FEDERICO HU ([id number]) 1935 M Date Time Provider Department 01/05/25 [...] at bedtime. - Blood-Glucose Meter,Continuous (DEXCOM G7 GROOVER OPERATOR) misc Dx: E11.49. ?Insulin: Yes. Use to [...] Status:Closed by CHRISTAL LAU on 01/05/25 Normal [facility] PARATHYROID W SPECT/CTon 01-04-2025 NM PARATHYROID W SPECT/CT * * *Final Report* * * DATE OF EXAM: Jan 04 2025 2:58PM [facility] 0089 - [place] PARATHYROID W SPECT/CT / PROCEDURE REASON: Hyperparathyroidism [...] Dose Reduction Employed: Yes CORRELATION: CT 12/30/2024, [id number] ultrasound 12/13/2024 RESULT: [id number] images: Homogeneous thyroid [...] right lower lobe consolidative opacities, likely infectious/inflammatory. Advertising Teacher (topogram) images: No additional findings. IMPRESSION: Suspected hypervascular parathyroid lesion posterior to the right mid thyroid, as described. Product Consultant: QUYEN Transcribe Date/Time: Jan 04 2025 2:59P Dictated by : KAELA NG MD This examination was interpreted and the report reviewed and electronically signed by: ESPERANZA JOHNSON MD on Jan 04 2025 4:25PM EST [id number] Normal [facility] Renal function 2000 panelon 01-04-2025 Albumin [Mass/Vol] 3.8 g/dL Low 3.9-4.[address] [facility] Comment on above: Order Comment: Alexia wilson Type: BLOOD SPECIMEN Ordering Facility: [facility] [place] Address: [address] [place] [address] Performed By: #### 2 4321-2 #### [facility] CLIA [id number] [address] [place] [address] [place] Anion gap [Moles/Vol] 11 mmol/L Normal 8-15 [facility] Comment on above: Order Comment: Alexia wilson Type: BLOOD SPECIMEN Ordering Facility: [facility] [place] Address: [address] [place] [address] Performed By: #### 2 4321-2 #### [facility] CLIA [id number] [address] [place] [address] [place] Calcium [Mass/Vol] 13.4 mg/dL High 8.5-10.[address] [facility] Comment on above: Order Comment: Alexia wilsno Type: BLOOD SPECIMEN Ordering Facility: [facility] [place] Address: [address] [place] [address] Performed By: #### 2 4321-2 #### [facility] CLIA [id number] [address] [place] [address] [place] Chloride [Moles/Vol] 103 mmol/L Normal 98-107 [facility] Comment on above: Order Comment: Speci men Type: BLOOD SPECIMEN Ordering Facility: [facility] [place] Address: [address] [place] [address] Performed By: #### 2 4321-2 #### [facility] CLIA [id number] [address] [place] [address] [place] CO2 [Moles/Vol] 26 mmol/L Normal 22-30 [facility] Comment on above: Order Comment: Speci men Type: BLOOD SPECIMEN Ordering Facility: [facility] [place] Address: [address] [place] [address] Performed By: #### 2 4321-2 #### [facility] CLIA [id number] [address] [place] [address] [place] Creatinine [Mass/Vol] 3.04 mg/dL High 0.73-1.22 [facility] Comment on above: Order Comment: Speci men Type: BLOOD SPECIMEN Ordering Facility: [facility] [place] Address: [address] [place] [address] Performed By: #### 2 4321-2 #### [facility] CLIA [id number] [address] [place] [address] OF [facility] Creatinine and Glomerular filtration rate.predicted panel (S/P/Bld) 19 mL/min/1.73m??? Low >=60 [facility] Comment on above: Order Comment: Speci men Type: BLOOD SPECIMEN Ordering Facility: [facility] [place] Address: [address] [place] [address] Result Comment: Billie mated Glomerular Filtration Rate [...] GFR. Performed By: #### 2 4321-2 #### [facility] CLIA [id number] [address] [place] [address] [place] Glucose [Mass/Vol] 105 mg/dL High 74-[address] [facility] Comment on above: Order Comment: Alexia wilson Type: BLOOD SPECIMEN Ordering Facility: [facility] [place] Address: [address] [place], [place] [id number] Result Comment: The [place] Diabetes Association (ADA) provides guidance for cutoff [...] Standards of Medical Care in Diabetes 2016, [place] [employer]. Diabetes Care. 2016.39(Suppl 1). Performed By: #### 2 4321-2 #### [facility] [id number] [address] [place] [address] [place] Phosphate [Mass/Vol] 3.5 mg/dL Normal 2.7-4.8 [facility] Comment on above: Order Comment: Alexia wilson Type: BLOOD SPECIMEN Ordering Facility: [facility] [place] Address: [address] [place] [address] Performed By: #### 2 4321-2 #### [facility] CLIA [id number] [address] [place] [address] [place] Potassium [Moles/Vol] 4.1 mmol/L Normal 3.7-5.1 [facility] Comment on above: Order Comment: Alexia wilson Type: BLOOD SPECIMEN Ordering Facility: [facility] [place] Address: [address] [place] [address] Performed By: #### 2 4321-2 #### [facility] CLIA [id number] [address] [place] [address] [place] Sodium [Moles/Vol] 140 mmol/L Normal 136-[address] [facility] Comment on above: Order Comment: Speci men Type: BLOOD SPECIMEN Ordering Facility: [facility] [place] Address: [address] [place], [place] [phone] Performed By: #### 2 4321-2 #### [facility] [id number] [address] [place] [address] [place] Urea nitrogen [Mass/Vol] 49 mg/dL High 9-24 [facility] Comment on above: Order Comment: Speci men Type: BLOOD SPECIMEN Ordering Facility: [facility] [place] Address: [address] [place], [place] [phone] Performed By: #### 2 4321-2 #### [facility] [id number] [address] [place] [address] [place] SPECT+CT Parathyroid glandon 01-04-2025 IMPRESSION: Suspected hypervascular parathyroid lesion posterior to the right mid thyroid, as described. Product Consultant: PSCB Transcribe Date/Time: Jan 04 2025 2:59P Dictated by : KAELA NG MD This examination was interpreted and the report reviewed and electronically signed by: ESPERANZA JOHNSON MD on Jan 04 2025 4:25PM [facility] DIVISION OF RADIOLOGY * * *Final Report* [...] Dose Reduction Employed: Yes CORRELATION: CT 12/30/2024, frswv-[id number] ultrasound 12/13/2024 RESULT: I-123 images: Homogeneous thyroid [...] right lower lobe consolidative opacities, likely infectious/inflammatory. Advertising Teacher (topogram) images: No additional findings. DIVISION OF RADIOLOGY Provider, [facility] - 01/04/2025 * * *Final Report* * [...] Dose Reduction Employed: Yes CORRELATION: CT 12/30/2024, [id number]-[id number] ultrasound 12/13/2024 RESULT: I-123 images: Homogeneous thyroid [...] right lower lobe consolidative opacities, likely infectious/inflammatory. Advertising Teacher (topogram) images: No additional findings. IMPRESSION IMPRESSION: Suspected hypervascular parathyroid lesion posterior to the right mid thyroid, as described. Product Consultant: PSCB Transcribe Date/Time: Jan 04 2025 2:59P Dictated by : KAELA NG MD This examination was interpreted and the report reviewed and electronically signed by: ESPERANZA JOHNSON MD on Jan 04 2025 4:25PM EST [facility] Radiology Study observation (narrative) [facility] SPECT+CT Parathyroid glandOr dered By: Ccf Provider on 01-04-2025 [facility] Basic metabolic 2000 panelon 12-30-2024 Anion gap [Moles/Vol] 8 mmol/L Normal 8-15 [facility] Comment on above: Order Comment: Speci men Type: BLOOD SPECIMENOrdering Facility: [facility] [place] Address: [address] [place] [address] Performed By: #### 2 4321-2 ####[facility] [id number] [place] [address] [place] Calcium [Mass/Vol] 13.9 mg/dL High 8.5-10.[address] [facility] Comment on above: Order Comment: Speci men Type: BLOOD SPECIMENOrdering Facility: [facility] [place] Address: [address] [place] [address] Performed By: #### 2 4321-2 ####[facility] [id number] [place] [address] [place] Chloride [Moles/Vol] 104 mmol/L Normal 98-107 [facility] Comment on above: Order Comment: Speci men Type: BLOOD SPECIMENOrdering Facility: [facility] [place] Address: [address] [place] [address] Performed By: #### 2 4321-2 ####[facility] LEMUEL MILLWNCLIA [id number] [place] [address] [place] CO2 [Moles/Vol] 28 mmol/L Normal 22-30 [facility] Comment on above: Order Comment: Speci men Type: BLOOD SPECIMENOrdering Facility: [facility] [place] Address: [address] [place] [address] Performed By: #### 2 4321-2 ####[facility] LIOLUCERNEAMANDA [id number] [place] [address] [place] Creatinine [Mass/Vol] 3.46 mg/dL High 0.73-1.22 [facility] Comment on above: Order Comment: Speci men Type: BLOOD SPECIMENOrdering Facility: [facility] [place] Address: [address] [place] [address] Performed By: #### 2 4321-2 ####[facility] HOSPITALNCKatiana [id number] [place] [address] [place] Creatinine and Glomerular filtration rate.predicted panel (S/P/Bld) 16 mL/min/1.73m??? Low >=60 [facility] Comment on above: Order Comment: Speci men Type: BLOOD SPECIMENOrdering Facility: [facility] [place] Address: [address] [place] [address] Result Comment: Billie mated Glomerular Filtration Rate [...] actual GFR. Performed By: #### 2 4321-2 ####[facility]ITALNCLIA [id number] [place] [address] [place] Glucose [Mass/Vol] 80 mg/dL Normal 74-[address] [facility] Comment on above: Order Comment: Speci men Type: BLOOD SPECIMENOrdering Facility: [facility] [place] Address: [address] [place] [address] Result Comment: The [place] Diabetes Association (ADA) provides guidance for cutoff [...] Standards of Medical Care in Diabetes 2016, [place] Diabetes Association. Diabetes Care. 2016.39(Suppl 1). Performed By: #### 2 4321-2 ####[facility] MILLTOWNCLIA [id number] [place] [address] [place] Potassium [Moles/Vol] 3.9 mmol/L Normal 3.7-5.1 [facility] Comment on above: Order Comment: Speci men Type: BLOOD SPECIMENOrdering Facility: [facility] [place] Address: [address] [place] [address] Performed By: #### 2 4321-2 ####[facility]ENTERWCALIA [id number] [place] [address] [place] Sodium [Moles/Vol] 140 mmol/L Normal 136-[address] [facility] Comment on above: Order Comment: Speci men Type: BLOOD SPECIMENOrdering Facility: [facility] [place] Address: [address] [place] [address] Performed By: #### 2 4321-2 ####[facility] MILLTOWNCLIA [id number] [place] [address] [place] Urea nitrogen [Mass/Vol] 56 mg/dL High 9-24 [facility] Comment on above: Order Comment: Speci men Type: BLOOD SPECIMENOrdering Facility: [facility] [place] Address: [address] [place] [address] Performed By: #### 2 4321-2 ####[facility] MILLTOWNCLIA [id number] [place] [address] [place] CHEST WO IVCONon 12-30-[address] CHEST WO IVCON * * *Final Report* * * DATE OF EXAM: Dec 30 2024 11:13AM [facility] 0541 - CT CHEST WO IVCON [...] also possible in the appropriate clinical setting. Product Consultant: QUYEN Transcribe Date/Time: Dec 30 2024 11:28A Dictated by : SANGITA GARRIDO MD This examination was interpreted and the report reviewed and electronically signed by: SANGITA GARRIDO MD on Dec 30 2024 12:00PM EST [id number] Normal [facility] CT Chest WO contraston 12-30 IMPRESSION: New groundglass and consolidative opacities predominantly in bilateral lower lobes, left greater than right, which may reflect inflammatory/infectious process with differential including pulmonary hemorrhage. Other entities such as pulmonary amyloidosis and pulmonary alveolar proteinosis also possible in the appropriate clinical setting. Product Consultant: [facility] Transcribe Date/Time: Dec 30 2024 11:28A Dictated by : SANGITA GARRIDO MD This examination was interpreted and the report reviewed and electronically signed by: SANGITA GARRIDO MD on Dec 30 2024 12:00PM EST DIVISION OF RADIOLOGY * * *Final Report* * * DATE OF EXAM: Dec 30 2024 11:13AM [facility] 0541 - CT CHEST WO IVCON [...] No additional findings. DIVISION OF RADIOLOGY Provider, [facility] - 12/30/2024 * * *Final Report* * * DATE OF EXAM: Dec 30 2024 11:13AM [facility] 0541 - CT CHEST WO IVCON [...] also possible in the appropriate clinical setting. Product Consultant: QUYEN Transcribe Date/Time: Dec 30 2024 11:28A Dictated by : SANGITA GARRIDO MD This examination was interpreted and the report reviewed and electronically signed by: SANGITA GARRIDO MD on Dec 30 2024 12:00PM EST [facility] Radiology Study observation (narrative) [facility] CT Chest WO contrastOrdered By: Ccf Provider on 12-30-2024 [facility] MONOCLONAL PROT UR W/INTERPO rdered By: Aishwarya Bond on 12-15-2024 Result (UMPA) No M protein is identified. No M protein is identified. [facility] Staff Review ([place]) Reviewed by Mauro gerber MD, Ph.D ([id number]) [facility] CBC W Auto Differential pane l (Bld)on 12-13-2024 Basophils (Bld) [#/Vol] 0.04 10*3/uL [facility] Basophils/100 WBC (Bld) 0.9 % [facility] Differential cell count method Nom (Bld) Auto [facility] Eosinophils (Bld) [#/Vol] 0.23 10*3/uL [facility] Eosinophils/100 WBC (Bld) 5.2 % [facility] Erythrocyte distribution width (RBC) [Ratio] 13.5 % 11.5 - 15.0 % [facility] Hematocrit (Bld) [Volume fraction] 39.4 % 39.0 - 51.0 % [facility] Hemoglobin (Bld) [Mass/Vol] 12.2 g/dL Low 13.0 - 17.0 g/dL [facility] Immature granulocytes (Bld) [#/Vol] [facility] Immature granulocytes/100 WBC (Bld) 0.2 % [facility] Interpretation and review of laboratory results Abnormal [facility] Lymphocytes (Bld) [#/Vol] 0.81 10*3/uL Low [facility] Lymphocytes/100 WBC (Bld) 18.2 % [facility] MCH (RBC) [Entitic mass] 28.1 pg 26.0 - 34.0 pg [facility] MCHC (RBC) [Mass/Vol] 31.0 g/dL 30.5 - 36.0 g/dL [facility] MCV (RBC) [Entitic vol] 90.8 fL 80.0 - 100.0 fL [facility] Monocytes (Bld) [#/Vol] 0.64 10*3/uL [facility] Monocytes/100 WBC (Bld) 14.4 % [facility] Neutrophils (Bld) [#/Vol] 2.71 10*3/uL [facility] Neutrophils/100 WBC (Bld) 61.1 % [facility] Nucleated RBC (Bld) [#/Vol] [facility] Nucleated RBC/100 WBC (Bld) [Ratio] 0.0 % /100 WBC [facility] Platelet mean volume (Bld) [Entitic vol] 12.0 fL 9.0 - 12.7 fL [facility] Platelets (Bld) [#/Vol] 127 10*3/uL Low [facility] RBC (Bld) [#/Vol] 4.34 10*6/uL 4.20 - 6.0 0 m/uL [facility] WBC (Bld) [#/Vol] 4.44 10*3/uL [facility] Basophils (Bld) [#/Vol] 0.04 10*3/uL Normal <0.11 [facility] Comment on above: Order Comment: Speci men Type: BLOOD SPECIMEN Ordering Facility: [facility] [place] Address: [address] [place] [address] Performed By: #### 2 731-8 #### [facility] CLIA [id number] [address] [place] [address] [place] Basophils/100 WBC (Bld) 0.9 % Normal [facility] Comment on above: Order Comment: Speci men Type: BLOOD SPECIMEN Ordering Facility: [facility] [place] Address: [address] [place] [address] Performed By: #### 2 731-8 #### [facility] CLIA [id number] [address] [place] [address] [place] Differential cell count method Nom (Bld) Auto Normal [facility] Comment on above: Order Comment: Speci men Type: BLOOD SPECIMEN Ordering Facility: [facility] [place] Address: [address] [place] [address] Performed By: #### 2 731-8 #### [facility] CLIA [id number] [address] [place] [address] [place] Eosinophils (Bld) [#/Vol] 0.23 10*3/uL Normal <0.46 [facility] Comment on above: Order Comment: Speci men Type: BLOOD SPECIMEN Ordering Facility: [facility] [place] Address: [address] [place] [address] Performed By: #### 2 731-8 #### [facility] CLIA [id number] [address] [place] [address] [place] Eosinophils/100 WBC (Bld) 5.2 % Normal [facility] Comment on above: Order Comment: Speci men Type: BLOOD SPECIMEN Ordering Facility: [facility] [place] Address: [address] [place] [address] Performed By: #### 2 731-8 #### [facility] CLIA [id number] [address] [place] [address] [place] Erythrocyte distribution width (RBC) [Ratio] 13.5 % Normal 11.5-15.0 [facility] Comment on above: Order Comment: Speci men Type: BLOOD SPECIMEN Ordering Facility: [facility] [place] Address: [address] [place] [address] Performed By: #### 2 731-8 #### [facility] CLIA [id number] [address] [place] [address] [place] Hematocrit (Bld) [Volume fraction] 39.4 % Normal 39.0-51.0 [facility] Comment on above: Order Comment: Speci men Type: BLOOD SPECIMEN Ordering Facility: [facility] [place] Address: [address] [place] [address] Performed By: #### 2 731-8 #### [facility] CLIA [id number] [address] [place] [address] [place] Hemoglobin (Bld) [Mass/Vol] 12.2 g/dL Low 13.0-17.0 [facility] Comment on above: Order Comment: Speci men Type: BLOOD SPECIMEN Ordering Facility: [facility] [place] Address: [address] [place] [address] Performed By: #### 2 731-8 #### [facility] CLIA [id number] [address] [place] [address] [place] Immature granulocytes (Bld) [#/Vol] 10*3/uL Normal <0.10 [facility] Comment on above: Order Comment: Speci men Type: BLOOD SPECIMEN Ordering Facility: [facility] [place] Address: [address] [place] [address] Performed By: #### 2 731-8 #### [facility] CLIA [id number] [address] [place] [address] [place] Immature granulocytes/100 WBC (Bld) 0.2 % Normal [facility] Comment on above: Order Comment: Speci men Type: BLOOD SPECIMEN Ordering Facility: [facility] [place] Address: [address] [place] [address] Performed By: #### 2 731-8 #### [facility] CLIA [id number] [address] [place] [address] [place] Lymphocytes (Bld) [#/Vol] 0.81 10*3/uL Low 1.00-4.00 [facility] Comment on above: Order Comment: Speci men Type: BLOOD SPECIMEN Ordering Facility: [facility] [place] Address: [address] [place] [address] Performed By: #### 2 731-8 #### [facility] CLIA [id number] [address] [place] [address] [place] Lymphocytes/100 WBC (Bld) 18.2 % Normal [facility] Comment on above: Order Comment: Speci men Type: BLOOD SPECIMEN Ordering Facility: [facility] [place] Address: [address] [place] [address] Performed By: #### 2 731-8 #### [facility] CLIA [id number] [address] [place] [address] [place] MCH (RBC) [Entitic mass] 28.1 pg Normal 26.0-34.0 [facility] Comment on above: Order Comment: Speci men Type: BLOOD SPECIMEN Ordering Facility: [facility] [place] Address: [address] [place] [address] Performed By: #### 2 731-8 #### [facility] CLIA [id number] [address] [place] [address] [place] MCHC (RBC) [Mass/Vol] 31.0 g/dL Normal 30.5-36.0 [facility] Comment on above: Order Comment: Speci men Type: BLOOD SPECIMEN Ordering Facility: [facility] [place] Address: [address] [place] [address] Performed By: #### 2 731-8 #### [facility] CLIA [id number] [address] [place] [address] [place] MCV (RBC) [Entitic vol] 90.8 fL Normal 80.0-100.0 [facility] Comment on above: Order Comment: Speci men Type: BLOOD SPECIMEN Ordering Facility: [facility] [place] Address: [address] [place] [address] Performed By: #### 2 731-8 #### [facility] CLIA [id number] [address] [place] [address] [place] Monocytes (Bld) [#/Vol] 0.64 10*3/uL Normal <0.87 [facility] Comment on above: Order Comment: Speci men Type: BLOOD SPECIMEN Ordering Facility: [facility] [place] Address: [address] [place] [address] Performed By: #### 2 731-8 #### [facility] CLIA [id number] [address] [place] [address] [place] Monocytes/100 WBC (Bld) 14.4 % Normal [facility] Comment on above: Order Comment: Speci men Type: BLOOD SPECIMEN Ordering Facility: [facility] [place] Address: [address] [place] [address] Performed By: #### 2 731-8 #### [facility] CLIA [id number] [address] [place] [address] [place] Neutrophils (Bld) [#/Vol] 2.71 10*3/uL Normal 1.45-7.50 [facility] Comment on above: Order Comment: Speci men Type: BLOOD SPECIMEN Ordering Facility: [facility] [place] Address: [address] [place] [address] Performed By: #### 2 731-8 #### [facility] CLIA [id number] [address] [place] [address] [place] Neutrophils/100 WBC (Bld) 61.1 % Normal [facility] Comment on above: Order Comment: Speci men Type: BLOOD SPECIMEN Ordering Facility: [facility] [place] Address: [address] [place] [address] Performed By: #### 2 731-8 #### [facility] CLIA [id number] [address] [place] [address] [place] Nucleated RBC (Bld) [#/Vol] 10*3/uL Normal <0.01 [facility] Comment on above: Order Comment: Speci men Type: BLOOD SPECIMEN Ordering Facility: [facility] [place] Address: [address] [place] [address] Performed By: #### 2 731-8 #### [facility] CLIA [id number] [address] [place] [address] [place] Nucleated RBC/100 WBC (Bld) [Ratio] 0.0 /100 WBC Normal [facility] Comment on above: Order Comment: Speci men Type: BLOOD SPECIMEN Ordering Facility: [facility] [place] Address: [address] [place] [address] Performed By: #### 2 731-8 #### [facility] CLIA [id number] [address] [place] [address] [place] Platelet mean volume (Bld) [Entitic vol] 12.0 fL Normal 9.0-12.7 [facility] Comment on above: Order Comment: Speci men Type: BLOOD SPECIMEN Ordering Facility: [facility] [place] Address: [address] [place] [address] Performed By: #### 2 731-8 #### [facility] CLIA [id number] [address] [place] [address] [place] Platelets (Bld) [#/Vol] 127 10*3/uL Low 150-400 [facility] Comment on above: Order Comment: Speci men Type: BLOOD SPECIMEN Ordering Facility: [facility] [place] Address: [address] [place] [address] Performed By: #### 2 731-8 #### [facility] CLIA [id number] [address] [place] [address] [place] RBC (Bld) [#/Vol] 4.34 10*6/uL Normal 4.20-6.00 [facility] Comment on above: Order Comment: Speci men Type: BLOOD SPECIMEN Ordering Facility: [facility] Address: [address] [place] [address] Performed By: #### 2 731-8 #### [facility] CLIA [id number] [address] [place] [address] [place] WBC (Bld) [#/Vol] 4.44 10*3/uL Normal 3.70-11.00 [facility] Comment on above: Order Comment: Speci men Type: BLOOD SPECIMEN Ordering Facility: [facility] Address: [address] [place] [address] Performed By: #### 2 731-8 #### [facility] CLIA [id number] [address] [place] [address] [place] CNOVon 12-13-2024 CNOV Office Visit (BENEDICTO ) FEDERICO HU ([id number]) 1935 M Date Time Provider Department 12/13/24 1:00 PM KRISTIN GUEVARA During your visit today, we recorded the following information about you: Pulse Blood pressure Weight Height 61/minute 123/48 158.2 kg 1.78 m Teresa Pinon MA 12/13/2024 12:19 PM Signed Thank you for choosing the [facility] Department of Endocrinology, Diabetes and Metabolism. Did you know that you need to call 48 hours in advance of your scheduled visit, if you are unable to make your appointment? The Endocrinology and Metabolism [place] thanks you for your commitment, because patients not showing to their appointment results in a lost opportunity for patients to receive [facility] health care at the [facility]. To Cancel an appointment, please choose one of the following: - Call the Appointment Call Center at [phone] - From [employer], Go to Appointments - Cancel Appts If cancelling, consider your need to reschedule to prevent further delays in your care. To Schedule an appointment, please choose one of the following: - Call the Appointment Call Center at [phone] - From [employer], Go to Appointments - Request an Appt Kristin Guevara MD 12/19/2024 3:03 PM Signed [facility] Endocrine Metabolism [place] [facility] Kristin Guevara M.D. [address] [place] [address] Name: Federico Hu Clinic Number: [id number] Date of Service: December 13, 2024 Federico Hu has been referred by Dr. Richter for evaluation of hyperparathyroidism. My assessment and recommendation for this patient will be communicated via shared medical records. Thank you for referring this patient to me. As you know, he is an 89 year old man who was found to have elevated calcium levels during a consult with his payment manager. Subsequently biochemical workup also revealed an [...] in a wheelchair due to distance from [facility] to the clinic. He does not have [...] patient with (more content not included)... Normal [facility] CNOVSPon 12-13-2024 CNOVSP Visit (SP) Office (H EMCA4) FEDERICO HU ([id number]) 1935 M Date Time Provider Department 12/13/24 [...] No Does patient want to see a Manufacturing Specialist? No (yes to any of above refer patient to schedulers for dietitian appointment) ) Does patient have any new or increased numbness or tingling of extremities? No Is patient interested in fertility information? NA Does patient need any prescription refills? No Does patient have an advanced directive in place? No Electronically Signed By: PHAM Car Beth, APRN.RAJWINDER, PhD 12/22/2024 9:55 AM Signed [facility] Plasma Cell Disorder [facility] Federico Hu is a 89 year old male patient. Reason for visit: Consult, referred by Dr. Acevedo for possible mgus. My recommendations to the consult requesting physician are communicated via the shared electronic medical record or US mail. Baseline assessment on initial diagnosis date 11/2024 IMWG criteria, [place] Journal of Haematology 121: 749-57, 2003, update in: Yo et al. 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 M-Protein Concentration <=0.00 g/dL 0.00 0.00 SPE Staff Review Reviewed by Mauro Soria MD, Ph.D ([id number]) Reviewed by Mauro Soria MD, Ph.D ([id number]) Resulting Agency [facility] CCM Narrative Performed by: [facility] Serum electrophoresis test was performed using the [employer] V8 NEXUS capillary electrophoresis method. Results obtained with different assay methods or kits cannot be used interchangeably. Specimen Collected: 12/13/24 3:21 PM EST Last Resulted: 12/15/24 8:40 AM EST [place] [facility], Serum 3.3 - 19.4 mg/L 74.1 High 72.8 High CM Comment: Rarely, increased serum free light chains levels may not be detected or accurately quantified due to prozone phenomenon or in high viscosity samples using this immunoturbidimetric assay. Correlation with other laboratory results and clinical findings is recommended. The [place] [facility] Light Chain was performed using the [...] L Chronic diastolic CHF (congestive heart failure) ([facility]) 07/22/2018 CKD (chronic kidney disease) stage 4, GFR 15-29 ml/min ([facility]) 07/22/2018 CORONARY ATHEROSCLER UNSPEC VESSEL 01/03/2009 (more content not included)... Normal [facility] Comprehensive metabolic 2000 panelon 12-13-2024 Albumin [Mass/Vol] 3.9 g/dL 3.9 - 4.9 g/dL [facility] ALP [Catalytic activity/Vol] 84 U/L 38 - 113 U/L [facility] ALT [Catalytic activity/Vol] 13 U/L 10 - 54 U/L [facility] Anion gap [Moles/Vol] 9 mmol/L 8 - 15 mmol/L [facility] AST [Catalytic activity/Vol] 13 U/L Low 14 - 40 U/L [facility] Bilirubin [Mass/Vol] 0.7 mg/dL 0.2 - 1 .3 mg/dL [facility] Calcium [Mass/Vol] 12.2 mg/dL High 8.5 - 10. 2 mg/dL [facility] Chloride [Moles/Vol] 106 mmol/L 98 - 10 7 mmol/L [facility] CO2 [Moles/Vol] 30 mmol/L 22 - 30 mmol/L [facility] Creatinine [Mass/Vol] 3.21 mg/dL High 0.73 - 1.22 mg/dL [facility] GFR/1.73 sq M.predicted among non-blacks MDRD (S/P/Bld) [Vol rate/Area] 18 mL/min/{1.73_m2} Low - PINF [facility] Comment on above: Estimated Glomerular Filtration Rate [...] [Mass/Vol] 77 mg/dL 74 - 99 mg/dL [facility] Comment on above: The [place] Diabete s Association (ADA) provides guidance for [...] Standards of Medical Care in Diabetes 2016, [place] Diabetes Association. Diabetes Care. 2016.39(Suppl 1). Interpretation and review of laboratory results Abnormal [facility] Potassium [Moles/Vol] 4.3 mmol/L 3.7 - 5.1 mmol/L [facility] Protein [Mass/Vol] 6.4 g/dL 6.3 - 8.0 g/dL [facility] Sodium [Moles/Vol] 145 mmol/L High 136 - 144 mmol/L [facility] Urea nitrogen [Mass/Vol] 49 mg/dL High 9 - 24 mg/dL [facility] Albumin [Mass/Vol] 3.9 g/dL Normal 3.9-4.[address] [facility] Comment on above: Order Comment: Speci men Type: BLOOD SPECIMEN Ordering Facility: [facility] [place] Address: [facility] [place] [address] Performed By: #### 2 4321-2 #### [facility] CLIA [id number] [address] [place] [address] [place] ALP [Catalytic activity/Vol] 84 U/L Normal 38-113 [facility] Comment on above: Order Comment: Speci men Type: BLOOD SPECIMEN Ordering Facility: [facility] [place] Address: [address] [place] [address] Performed By: #### 2 4321-2 #### [facility] CLIA [id number] [address] [place] [address] [place] ALT [Catalytic activity/Vol] 13 U/L Normal 10-54 [facility] Comment on above: Order Comment: Speci men Type: BLOOD SPECIMEN Ordering Facility: [facility] [place] Address: [address] [place] [address] Performed By: #### 2 4321-2 #### [facility] CLIA [id number] [address] [place] [address] [place] Anion gap [Moles/Vol] 9 mmol/L Normal 8-15 [facility] Comment on above: Order Comment: Speci men Type: BLOOD SPECIMEN Ordering Facility: [facility] [place] Address: [address] [place] [address] Performed By: #### 2 4321-2 #### [facility] CLIA [id number] [address] [place] [address] [place] AST [Catalytic activity/Vol] 13 U/L Low 14-40 [facility] Comment on above: Order Comment: Speci men Type: BLOOD SPECIMEN Ordering Facility: [facility] [place] Address: [address] [place] [address] Performed By: #### 2 4321-2 #### [facility] CLIA [id number] [address] [place] [address] [place] Bilirubin [Mass/Vol] 0.7 mg/dL Normal 0.2-1.3 [facility] Comment on above: Order Comment: Speci men Type: BLOOD SPECIMEN Ordering Facility: [facility] [place] Address: [address] [place] [address] Performed By: #### 2 4321-2 #### [facility] CLIA [id number] [address] [place] [address] [place] Calcium [Mass/Vol] 12.2 mg/dL High 8.5-10.[address] [facility] Comment on above: Order Comment: Speci men Type: BLOOD SPECIMEN Ordering Facility: [facility] [place] Address: [address] [place] [address] Performed By: #### 2 4321-2 #### [facility] CLIA [id number] [address] [place] [address] [place] Chloride [Moles/Vol] 106 mmol/L Normal 98-107 [facility] Comment on above: Order Comment: Speci men Type: BLOOD SPECIMEN Ordering Facility: [facility] [place] Address: [address] [place] [address] Performed By: #### 2 4321-2 #### [facility] CLIA [id number] [address] [place] [address] [place] CO2 [Moles/Vol] 30 mmol/L Normal 22-30 [facility] Comment on above: Order Comment: Speci men Type: BLOOD SPECIMEN Ordering Facility: [facility] [place] Address: [address] [place] [address] Performed By: #### 2 4321-2 #### [facility] CLIA [id number] [address] [place] [address] [place] Creatinine [Mass/Vol] 3.21 mg/dL High 0.73-1.22 [facility] Comment on above: Order Comment: Speci men Type: BLOOD SPECIMEN Ordering Facility: [facility] [place] Address: [address] [place] [address] Performed By: #### 2 4321-2 #### [facility] CLIA [id number] [address] [place] [address] [place] Creatinine and Glomerular filtration rate.predicted panel (S/P/Bld) 18 mL/min/1.73m??? Low >=60 [facility] Comment on above: Order Comment: Alexia wilson Type: BLOOD SPECIMEN Ordering Facility: [facility] [place] Address: [address] [place] [address] Result Comment: Billie mated Glomerular Filtration Rate [...] GFR. Performed By: #### 2 4321-2 #### [facility] [id number] [address] [place] [address] [place] Glucose [Mass/Vol] 77 mg/dL Normal 74-[address] [facility] Comment on above: Order Comment: Alexia wilson Type: BLOOD SPECIMEN Ordering Facility: [facility] [place] Address: [address] [place] [address] Result Comment: The [place] Diabetes Association (ADA) provides guidance for cutoff [...] Standards of Medical Care in Diabetes 2016, [place] Diabetes Association. Diabetes Care. 2016.39(Suppl 1). Performed By: #### 2 4321-2 #### [facility] [id number] [address] [place] [address] [place] Potassium [Moles/Vol] 4.3 mmol/L Normal 3.7-5.1 [facility] Comment on above: Order Comment: Alexia wilson Type: BLOOD SPECIMEN Ordering Facility: [facility] [place] Address: [address] [place] [id number] Performed By: #### 2 4321-2 #### [facility] CLIA [id number] [address] [place] [address] [place] Protein [Mass/Vol] 6.4 g/dL Normal 6.3-8.[address] [facility] Comment on above: Order Comment: Speci men Type: BLOOD SPECIMEN Ordering Facility: [facility] [place] Address: [facility] [place] [address] Performed By: #### 2 4321-2 #### [facility] CLIA [id number] [address] [place] [address] [place] Sodium [Moles/Vol] 145 mmol/L High 136-[address] [facility] Comment on above: Order Comment: Speci men Type: BLOOD SPECIMEN Ordering Facility: [facility] [place] Address: [facility] [place] [address] Performed By: #### 2 4321-2 #### [facility] CLIA [id number] [address] [place] [address] [place] Urea nitrogen [Mass/Vol] 49 mg/dL High 9-24 [facility] Comment on above: Order Comment: Speci men Type: BLOOD SPECIMEN Ordering Facility: [facility] [place] Address: [facility] [place] [address] Performed By: #### 2 4321-2 #### [facility] CLIA [id number] [address] [place] [address] [place] HISTORY PHYSICALon HISTORY PHYSICAL HNO ID: [id number] Author: KRISTIN GUEVARA MD Service: ? Author Type: Physician Type: H&P Filed: 12/19/2024 15:03 Note Text: [facility] Endocrine Metabolism [place] [facility] Kristin Guevara M.D. [address] [place], [place] [address] Name: Federico Hu Clinic Number: [id number] Date of Service: December 13, 2024 Federico Hu has been referred by Dr. Richter for evaluation of hyperparathyroidism. My assessment and recommendation for this patient will be communicated via shared medical records. Thank you for referring this patient to me. As you know, he is an 89 year old man who was found to have elevated calcium levels during a consult with his payment manager. Subsequently biochemical workup also revealed an [...] in a wheelchair due to distance from [facility] to the clinic. He does not have [...] questions or concerns. Kristin Guevara MD Normal [facility] IMMUNOFIXATION SCREEN, SERUM on 12-13-2024 INTERPRETATION (MPA) Normal [facility] Comment on above: Order Comment: Speci men Type: BLOOD SPECIMEN Ordering Facility: [facility] [place] Address: [address] [place] [address] Result Comment: Atyp ical restricted bands are [...] necessary. Performed By: #### 2 731-8 #### [facility] CLIA [id number] [address] [place] [address] MPA RESULT M protein is present. Abnormal No M protein is identified. [facility] Comment on above: Order Comment: Alexia wilson Type: BLOOD SPECIMEN Ordering Facility: [facility] [place] Address: [address] [place] [address] Performed By: #### 2 731-8 #### [facility] CLIA [id number] [address] [place] [address] STAFF REVIEW (MPA) Reviewed by Mauro gerber MD, Ph.D ([id number]) Normal [facility] Comment on above: Order Comment: Alexia wilson Type: BLOOD SPECIMEN Ordering Facility: [facility] [place] Address: [address] [place] [address] Performed By: #### 2 731-8 #### [facility] CLIA [id number] [address] [place] [address] [place] IMMUNOGLOBULINS,IGG,IGA,IGMo n 12-13-2024 IgA [Mass/Vol] 159 mg/dL Normal 70-400 [facility] Comment on above: Order Comment: Alexia wilson Type: BLOOD SPECIMEN Ordering Facility: [facility] [place] Address: [address] [place] [address] Performed By: #### S ERIMM #### [facility] CLIA [id number] [address] [place] [address] [place] IgG [Mass/Vol] 757 mg/dL Normal 700-1600 [facility] Comment on above: Order Comment: Speci men Type: BLOOD SPECIMEN Ordering Facility: [facility] [place] Address: [address] [place] [address] Performed By: #### S ABEBAM #### [facility] CLIA [id number] [address] [place] [address] [place] IgM [Mass/Vol] 125 mg/dL Normal 40-230 [facility] Comment on above: Order Comment: Speci men Type: BLOOD SPECIMEN Ordering Facility: [facility] [place] Address: [address] [place] [address] Performed By: #### S ERPIPERM #### [facility] CLIA [id number] [address] [place] [address] [place] KAPPA/ERAZO,FREE,SERon 2024 Immunoglobulin light chains.kappa.free (S) [Mass/Vol] 74.1 mg/L High 3.3-19.4 [facility] Comment on above: Order Comment: Speci men Type: BLOOD SPECIMEN Ordering Facility: [facility] [place] Address: [address] [place] [address] Result Comment: Rare ly, increased serum free light chains levels may not be detected or accurately quantified due to prozone phenomenon or in high viscosity samples using this immunoturbidimetric assay. Correlation with other laboratory results and clinical findings is recommended. The [place] [facility] Light Chain was performed using the [employer] immunoturbidimetric method. Result obtained with different assay methods or kits cannot be used interchangeably. Performed By: #### 2 4321-2 #### [facility] CLIA [id number] [address] [place] [address] [place] Immunoglobulin light chains.kappa/Immunogl obulin light chains.lambda (S) [Mass ratio] 1.33 Normal 0.26-1.65 [facility] Comment on above: Order Comment: Speci men Type: BLOOD SPECIMEN Ordering Facility: [facility] [place] Address: [address] [place] [address] Performed By: #### 2 4321-2 #### [facility] CLIA [id number] [address] [place] [address] [place] Immunoglobulin light chains.lambda.free [Mass/Vol] 55.7 mg/L High 5.7-26.3 [facility] Comment on above: Order Comment: Speci men Type: BLOOD SPECIMEN Ordering Facility: [facility] [place] Address: [address] [place] [address] Result Comment: Rare ly, increased serum free [...] interchangeably. Performed By: #### 2 4321-2 #### [facility] CLIA [id number] [address] [place] [address] [place] MONOCLONAL PROT UR W/INTERPo n 12-13-2024 STAFF REVIEW ([facility]) Reviewed by Mauro gerber MD, Ph.D ([id number]) Normal [facility] Comment on above: Order Comment: Speci men Type: BLOOD SPECIMEN Ordering Facility: [facility] [place] Address: [address] [place] [address] Performed By: #### 2 731-8 #### [facility] CLIA [id number] [address] [place] [address] [place] UMPA RESULT No M protein is identified. Normal No M protein is identified. [facility] Comment on above: Order Comment: Speci men Type: BLOOD SPECIMEN Ordering Facility: [facility] [place] Address: [address] [place] [address] Performed By: #### 2 731-8 #### [facility] CLIA [id number] [address] [place] [address] [place] NT PRO BNPon 12-13-2024 Natriuretic peptide.B prohormone N-Terminal [Mass/Vol] 3155 pg/mL High NINF - 450 pg/mL [facility] NT-proBNP SerPl-mCncon 12-13 Natriuretic peptide.B prohormone N-Terminal [Mass/Vol] 3155 pg/mL High <450 [facility] Comment on above: Order Comment: Alexia wilson Type: BLOOD SPECIMENOrdering Facility: [facility] Address: [address] [place] [address] Performed By: #### 3 3762-6, 2885-2 ####[facility] [id number] [facility] [id number] [address] [place] Natriuretic peptide.B prohor carina N-Terminal [Mass/Vol]on 12-13-2024 Interpretation and review of laboratory results Abnormal [facility] PROTEIN / CREATININE RATIOon 12-13-2024 Protein/Creatinine (U) [Mass ratio] 0.23 mg/mg High NINF - 0.15 mg/mg [facility] Comment on above: Adult Proteinuria Ca tegories: [...] 12-13-2024 Albumin [Mass/Vol] 3.66 g/dL Normal 3.43-5.[address] [facility] Comment on above: Order Comment: Alexia wilson Type: BLOOD SPECIMEN Ordering Facility: [facility] [place] Address: [address] [id number] Performed By: #### 2 4321-2 #### [facility] CLIA [id number] [address] [place] [address] [place] Alpha 1 globulin Elph [Mass/Vol] 0.33 g/dL Normal 0.18-0.43 [facility] Comment on above: Order Comment: Speci men Type: BLOOD SPECIMEN Ordering Facility: [facility] [place] Address: [address] [place], [place] [address] Performed By: #### 2 4321-2 #### [facility] CLIA [id number] [address] [place] [address] [place] Alpha 2 globulin Elph [Mass/Vol] 0.70 g/dL Normal 0.42-0.98 [facility] Comment on above: Order Comment: Speci men Type: BLOOD SPECIMEN Ordering Facility: [facility] [place] Address: [address] [place], [place] [address] Performed By: #### 2 4321-2 #### [facility] CLIA [id number] [address] [place] [address] [place] Beta globulin Elph [Mass/Vol] 0.68 g/dL Normal 0.61-1.17 [facility] Comment on above: Order Comment: Speci men Type: BLOOD SPECIMEN Ordering Facility: [facility] [place] Address: [address] [place], [place] [address] Performed By: #### 2 4321-2 #### [facility] CLIA [id number] [address] [place] [address] [place] Gamma globulin Elph [Mass/Vol] 0.62 g/dL Normal 0.53-1.51 [facility] Comment on above: Order Comment: Speci men Type: BLOOD SPECIMEN Ordering Facility: [facility] [place] Address: [address] [place], [place] [address] Performed By: #### 2 4321-2 #### [facility] CLIA [id number] [address] [place] [address] [place] INTERPRETATION COMMENT FOR PROTEIN ELECTROPHORESIS The atypical region is relatively poorly defined and may represent an unusual presentation of polyclonal immunoglobulins, but cannot rule out the presence of a low level M protein. If clinically indicated, monoclonal protein analysis and serum free light chain analysis are suggested to evaluate further for monoclonal gammopathy. Normal [facility] Comment on above: Order Comment: Speci men Type: BLOOD SPECIMEN Ordering Facility: [facility] [place] Address: [address] [place] [address] Performed By: #### 2 4321-2 #### [facility] CLIA [id number] [address] [place] [address] M-PROTEIN LOCATION Normal [facility] Comment on above: Order Comment: Speci men Type: BLOOD SPECIMEN Ordering Facility: [facility] [place] Address: [address] [place] [address] Result Comment: Not Applicable. Performed By: #### 2 4321-2 #### [facility] [id number] [address] [place] [address] [place] Protein Fractions [Interp] An atypical region of restricted mobility is identified on protein electrophoresis. Abnormal No definitive M protein is identified on protein electrophor esis. [facility] Comment on above: Order Comment: Speci men Type: BLOOD SPECIMEN Ordering Facility: [facility] [place] Address: [address] [place] [address] Performed By: #### 2 4321-2 #### [facility] [id number] [address] [place] [address] Protein.monoclonal Elph [Mass/Vol] 0.00 g/dL Normal <=0.00 [facility] Comment on above: Order Comment: Speci men Type: BLOOD SPECIMEN Ordering Facility: [facility] [place] Address: [address] [place] [address] Performed By: #### 2 4321-2 #### [facility] [id number] [address] [place] [address] [place] SPE STAFF REVIEW Reviewed by Mauro gerber MD, Ph.D ([id number]) Normal [facility] Comment on above: Order Comment: Speci men Type: BLOOD SPECIMEN Ordering Facility: [facility] [place] Address: [address] [place] [address] Performed By: #### 2 4321-2 #### [facility] CLIA [id number] [address] [place] [address] [place] Phosphate SerPl-mCncon 12-13 Phosphate [Mass/Vol] 3.4 mg/dL Normal 2.7-4.8 [facility] Comment on above: Order Comment: Speci men Type: BLOOD SPECIMEN Ordering Facility: [facility] [place] Address: [address] [place] [address] Performed By: #### 2 4321-2 #### [facility] CLIA [id number] [address] [place] [address] [place] Prot SerPl-mCncon 12-13-2024 Protein [Mass/Vol] 6.0 g/dL Low 6.3-8.[address] [facility] Comment on above: Order Comment: Speci men Type: BLOOD SPECIMENOrdering Facility: [facility] [place] Address: [address] [place] [address] Performed By: #### 3 3762-6, 2885-2 ####[facility] [id number] [place] [address] [place] Prot Ur-mCncon 12-13-2024 Protein (U) [Mass/Vol] 14 mg/dL Normal 0-20 [facility] Comment on above: Order Comment: Speci men Type: URINE SPECIMEN Ordering Facility: [facility] [place] Address: [address] [place] [address] Performed By: #### 2 888-6 #### [facility] CLIA [id number] [address] [place] [address] [place] Prot/Creat Uron 12-13-2024 Protein/Creatinine (U) [Mass ratio] 0.23 mg/mg High <0.15 [facility] Comment on above: Order Comment: Speci men Type: URINE SPECIMENOrdering Facility: [facility] [place] Address: [address] [place] [address] Result Comment: Adul t Proteinuria Categories: <0.15 mg/mg is considered normal to mildly increased 0.15 - 0.50 mg/mg is considered moderately increased >0.50 mg/mg is considered severely increased KDIGO. (2013). KDIGO 2012 Clinical Practice Guideline for the Evaluation and Management of Chronic Kidney Disease. Official Journal of the International Society of Nephrology, 3(1), 1-150. Performed By: #### 2 890-2 ####[facility] [id number] [place] [address] [place] Protein/Creatinine (U) [Mass ratio]on 12-13-2024 Creatinine (U) [Mass/Vol] 61.4 mg/dL 20.0 - 300.0 mg/dL [facility] Interpretation and review of laboratory results Abnormal [facility] Protein (U) [Mass/Vol] 14 mg/dL 0 - 20 mg/dL [facility] Creatinine (U) [Mass/Vol] 61.4 mg/dL Normal 20.0-300.0 [facility] Comment on above: Order Comment: Speci men Type: URINE SPECIMENOrdering Facility: [facility] [place] Address: [address] [place] [address] Performed By: #### 2 890-2 ####[facility] [id number] [place] [address] [place] Protein (U) [Mass/Vol] 14 mg/dL Normal 0-20 [facility] Comment on above: Order Comment: Speci men Type: URINE SPECIMENOrdering Facility: [facility] [place] Address: [address] [place] [address] Performed By: #### 2 890-2 ####[facility] [id number] [place] [address] [place] URINE PROTEIN ELECTROPHORESI S RANDOM (P)on 12-13-2024 Albumin Elph (U) [Mass fraction] 46.89 % Normal [facility] Comment on above: Order Comment: Speci men Type: BLOOD SPECIMEN Ordering Facility: [facility] [place] Address: [address] [place] [id number] Performed By: #### 2 4321-2 #### [facility] CLIA [id number] [address] [place] [address] [place] Alpha 1 globulin Elph (U) [Mass fraction] 4.94 % Normal [facility] Comment on above: Order Comment: Speci men Type: BLOOD SPECIMEN Ordering Facility: [facility] [place] Address: [address] [place] [address] Performed By: #### 2 4321-2 #### [facility] CLIA [id number] [address] [place] [address] [place] Alpha 2 globulin Elph (U) [Mass fraction] 12.35 % Normal [facility] Comment on above: Order Comment: Speci men Type: BLOOD SPECIMEN Ordering Facility: [facility] [place] Address: [address] [place] [address] Performed By: #### 2 4321-2 #### [facility] CLIA [id number] [address] [place] [address] [place] Beta globulin Elph (U) [Mass fraction] 20.41 % Normal [facility] Comment on above: Order Comment: Speci men Type: BLOOD SPECIMEN Ordering Facility: [facility] [place] Address: [address] [place] [address] Performed By: #### 2 4321-2 #### [facility] CLIA [id number] [address] [place] [address] [place] Gamma globulin Elph (U) [Mass fraction] 15.41 % Normal [facility] Comment on above: Order Comment: Speci men Type: BLOOD SPECIMEN Ordering Facility: [facility] [place] Address: [address] [place] [address] Performed By: #### 2 4321-2 #### [facility] CLIA [id number] [address] [place] [address] [place] Protein Fractions Elph Mumtaz (U) [Interp] No definitive M protein is identified on protein electrophoresis. Normal No definitive M protein is identified on protein electrophor esis. [facility] Comment on above: Order Comment: Speci katie Type: BLOOD SPECIMEN Ordering Facility: [facility] [place] Address: [address] [place] [address] Performed By: #### 2 4321-2 #### [facility] CLIA [id number] [address] [place] [address] STAFF REVIEW (URINE ELECTRO) Reviewed by Mauro Soria MD, Ph.D ([id number]) Normal [facility] Comment on above: Order Comment: Speci men Type: BLOOD SPECIMEN Ordering Facility: [facility] [place] Address: [address] [place] [address] Performed By: #### 2 4321-2 #### [facility] CLIA [id number] [address] [place] [address] CV ECHO COMPLETE W/CONTRAST PER PROTOCOLon 12-09-2024 CV ECHO COMPLETE W/CONTRAST PER PROTOCOL [place] [address] Patient: FEDERICO HU Phone#: : 1935 Age: 89 Gender: M Pt. Type: Out Account: [id number] Location: [facility] Ordering: HARMNA STRICKLAND Exam Date: 12/09/2024/12:48 Family Phys: NITHIN ACEVEDO Charge Code: 329239 Physician: Caroline Order #: [id number] Dose#: PROCEDURE: ECHO COMPLETE WITH CONTRAST HISTORY: Patient is an 89-year-old male with heart failure INDICATIONS: Heart failure COMPARISON: None. TECHNIQUE: A 2-D ultrasound, color spectral Doppler and M-mode evaluation of the heart and great vessels. PATIENT MEASUREMENTS: Height (in.): BSA: Weight (lbs.): BP: Wool Carder: M MODE 2D MEASUREMENTS AND CALCULATIONS: LVIDd: [...] 89 Gender: M Pt. Type: Out Account: [id number] Location: [facility] Ordering: HARMAN STRICKLAND Exam Date: 12/09/2024/12:48 Family Phys: NITHIN ACEVEDO Charge Code: 537515 Physician: Caroline Order #: [id number] Dose#: MV V2 mean: 0.75 m/s MV [...] 89 Gender: M Pt. Type: Out Account: [id number] Location: [facility] Ordering: HARMAN STRICKLAND Exam Date: 12/09/2024/12:48 Family Phys: NITHIN ACEVEDO Charge Code: 599463 Physician: Caroline Order #: [id number] Dose#: RIGHT VENTRICLE: Right ventricle is mildly [...] no st (more content not included)... Normal [facility] FEDERICO HU ([id number]) 1935 M Date Time Provider Department 12/01/24 [...] Hyperparathyroid; Hypercalcemia PATIENT DEMOGRAPHICS Name: Federico Hu [facility]#: [id number] : 1935 AGE: [age] year old Contact Numbers: Home: (home) Work: There is no work phone number on file. PATIENT PHYSICIAN INFORMATION Referring Doctor: Dr. Velia Richter DO Address: Phone: On Line Csr: N/A Address: Phone: PCP: Nithin Acevedo [address] [place] [address] PAST TREATMENT Office notes: SEE EPIC Medications: [...] Order(s):CREATININE, 24 HOUR URINE [SQUCRD] Order #: [id number]. #:[id number] CALCIUM, 24 HR URINE [SQUCALCD] Order #: [id number]. #:[id number] Prescriptions as of 12/01/2024 - Blood-Glucose Meter,Continuous (DEXCOM G7 GROOVER OPERATOR) misc Dx: E11.49. ?Insulin: Yes. Use to check blood sugars at least 4 times a day - Blood-Glucose Sensor (Little Big ThingsCOM G7 SENSOR) laquita Dx: E11.49. ?Insulin: Yes. [...] pleural effusion (more content not included)... Normal [facility] CNOVon 11-26-2024 CNOV Office Visit (INTMWS ) FEDERICO HU ([id number]) 1935 Date Time Provider Department 11/26/24 4:20 PM NITHIN ACEVEDO INTMWS During your visit today, we recorded the following information about you: Pulse Blood pressure Weight Normal [facility] CNPNon 11-23-2024 CNPN Telephone (4CQ) FEDERICO HU ([id number]) 1935 M Date Time Provider Department 11/23/24 NITHIN ACEVEDO 4CQ During your visit today, we recorded the following information about you: Zeny eMad 11/23/2024 1:49 PM Signed Patient is calling requesting PCP order the dexcom system for him .Please advise the patient. Viet López MA 11/24/2024 8:38 AM Signed Called patient and advised with medicare continuous monitors and supplies have to go to [employer]. Normally use [employer] takes all medicare so patient aware will [...] be re-faxed and notified once completed at [phone]. CEFERINO Rodriguez Helen E, LPN 12/06/2024 3:20 PM Signed TC to Aliza, asking for form to be faxed to [phone]. Faxed. Daxa Morin LPN Allergies As of Date: 11/23/2024 Noted Allergy Reaction FEXOFENADINE 11/05/2024 16 - Unknown PROSCAR (FINASTERIDE) 07/02/2010 2 - Rash Date Reviewed: 11/05/2024 Reviewed by: Katherin Mckinnon, PLANNING DIRECTOR.FIRST AID TEACHER - Fully Assessed Reason for Visit: Patient Question [1477] Order(s):Blood-Glucose Meter,Continuous (DEXCOM G7 GROOVER OPERATOR) miscDx: E11.49. ?Insulin: Yes. Use to check blood sugars at least 4 times a dayDisp: 1 EachRfl: 0 Blood-Glucose Sensor (DEXCOM G7 SENSOR) deviDx: E11.49. ?Insulin: Yes. Apply new sensor every ten (10) daysDisp: 9 EachRfl: 3 Prescriptions as of 12/06/2024 - Blood-Glucose Meter,Continuous (DEXCOM G7 GROOVER OPERATOR) misc Dx: E11.49. ?Insulin: Yes. Use to check blood sugars at least 4 times a day - Blood-Glucose Sensor ([employer]COM G7 SENSOR) laquita Dx: E11.49. ?Insulin: Yes. [...] 11/30/2009 10/09/2010 (more content not included)... [facility]INTMWS[facility] FEDERICO HU ([id number]) 1935 M Date Time Provider Department 11/23/24 NITHIN ACEVEDO INTMWS During your visit today, we recorded the following information about you: Bear Good RN 11/23/2024 1:42 PM Signed Pt reports his CPAP stopped working last night and he needs a new one. Asking pcp to send order to [facility] in [place]. Please advise patient. Geneva Valdez 11/25/2024 11:10 AM Signed Patient needs a new cpap Please contact [facility] ([facility] Ph. [phone] Nithin Acevedo MD 11/25/2024 1:08 PM Signed [place] [facility] with settings. Jacqueline Mir LPN 11/26/2024 10:28 AM Signed Spoke with [facility] and patient's settings were 12-6 cm H2O. Last sleep study was completed at [facility] in 2016. There has been no recent documentation of CPAP use. Patient will need an appointment so this can be discussed for insurance purposes. Patient notified and scheduled 11/26/24 at 1:20 pm. Daxa Morin LPN 11/27/2024 9:11 AM Signed Info faxed to [facility]. Daxa Morin LPN Allergies As of Date: 11/23/2024 Noted Allergy Reaction FEXOFENADINE 11/05/2024 16 - Unknown PROSCAR (FINASTERIDE) 07/02/2010 2 - Rash Date Reviewed: 11/05/2024 Reviewed by: Katherin Mckinnon APRN.FIRST AID TEACHER - Fully Assessed Reason for Visit: CPAP [...] Status:Closed by DAXA MORIN on 11/27/24 Normal [facility] BMP with eGFRon 11-08-2024 AGE 89 years Normal [facility] Comment on above: Performed By: #### 2 76833 #### [facility],[address] [place] [address] Anion gap [Moles/Vol] 15 mmol/L Normal 10 - 20 [facility] Comment on above: Performed By: #### 2 38204 #### [facility],[address] [place] [address] BMP with eGFR Normal [facility] Comment on above: Result Comment: BASI C METABOLIC PANEL Performed By: #### 2 85807 #### [facility],[address] [place] [address] Calcium [Mass/Vol] 12.2 mg/dL High 8.5 - 10.1 [facility] Comment on above: Performed By: #### 2 82986 #### [facility],[address] [place] [address] Chloride [Moles/Vol] 107 mmol/L Normal 98 - 107 [facility] Comment on above: Performed By: #### 2 19334 #### [facility],[address] [place] [address]40[address] CO2 [Moles/Vol] 28.9 mmol/L Normal 21.0 - 32.0 [facility] Comment on above: Performed By: #### 2 44169 #### [facility],[address] [place] [address] Creatinine [Mass/Vol] 3.87 mg/dL High 0.70 - 1.30 [facility] Comment on above: Performed By: #### 2 07299 #### [facility],[address] [place] [address] 55781 eGFR 15 ML/MINUTE Low 60 - 999 [facility] Comment on above: Performed By: #### 2 29265 #### [facility],[address] [place] [address]374 eGFR(AA) 18 ML/MINUTE Low 60 - 999 [facility] Comment on above: Result Comment: ACCO RDING TO THE NATIONAL KIDNEY DISEASE EDUCATION PROGRAM(NKDE), A NORMAL eGFR IS A VALUE GREATER THAN OR EQUAL TO 60 ML/MIN/1.73 SQ METERS. CHRONIC KIDNEY DISEASE: <60mL/MIN/1.73 SQ METERS KIDNEY FAILURE: <15mL/MIN/1.73 SQ METERS THIS TEST SHOULD ONLY BE USED FOR PATIENTS 18 YEARS OF AGE AND OLDER. Performed By: #### 2 90450 #### [facility],[address] [place] [address]175 Glucose [Mass/Vol] 123 mg/dL High 74 - 106 [facility] Comment on above: Performed By: #### 2 26423 #### [facility],[address] [place] [address]208 Potassium [Moles/Vol] 4.0 mmol/L Normal 3.5 - 5.1 [facility] Comment on above: Performed By: #### 2 42184 #### [facility],[address] [place] [address] 14141 Sodium [Moles/Vol] 147 mmol/L High 136 - 145 [facility] Comment on above: Performed By: #### 2 43671 #### [facility],[address] [place] [address] Urea nitrogen [Mass/Vol] 58 mg/dL High - 18 [facility] Comment on above: Performed By: #### 2 93760 #### [facility],[address] [place] [address] CBC + DIFFon 11-08-2024 Baso # 0.04 x10EE3/UL Normal 0.00 - 0.10 [facility] Comment on above: Performed By: #### 2 23996 #### [facility],[address] [place], [place] [id number] Basophils/100 WBC (Bld) 0.7 % Normal 0.0 - 2.0 [facility] Comment on above: Performed By: #### 2 67432 #### [facility],[address] [place] [address] CBC + DIFF Normal [facility] Comment on above: Result Comment: CBC- COMPLETE BLOOD COUNT Performed By: #### 2 69269 #### [facility],[address] [place] [address] EO # 0.21 x10EE3/UL Normal 0.00 - 0.50 [facility] Comment on above: Performed By: #### 2 15677 #### [facility],[address] [place], [place] [address] Eosinophils/100 WBC (Bld) 3.5 % Normal 0.0 - 7.0 [facility] Comment on above: Performed By: #### 2 05859 #### [facility],[address] [place] [address] Erythrocyte distribution width (RBC) [Ratio] 13.9 % Normal 12.0 - 15.6 [facility] Comment on above: Performed By: #### 2 02264 #### [facility],[address] [place] [address] Hematocrit (Bld) [Volume fraction] 40.3 % Normal 40.0 - 52.0 [facility] Comment on above: Performed By: #### 2 12018 #### [facility],[address] [place] [address] Hemoglobin (Bld) [Mass/Vol] 13.1 g/dL Normal 13.0 - 17.5 [facility] Comment on above: Performed By: #### 2 56240 #### [facility],[address] [place] [address] Lymph # 1.07 x10EE3/UL Normal 0.80 - 2.80 [facility] Comment on above: Performed By: #### 2 51808 #### [facility],[address] [place] [address] Lymphocytes/100 WBC (Bld) 17.3 % Low 20.0 - 45.0 [facility] Comment on above: Performed By: #### 2 41582 #### [facility],[address] [place] [address] MANUAL DIFF N/A Normal [facility] Comment on above: Performed By: #### 2 02414 #### [facility],[address] [place] [address] MCH (RBC) [Entitic mass] 29 pg Normal 27 - 33 [facility] Comment on above: Performed By: #### 2 11590 #### [facility],[address] [place] [address] MCHC 33 X10 3 Normal 32 - 36 [facility] Comment on above: Performed By: #### 2 42242 #### [facility],[address] [place], [place] [address] MCV (RBC) [Entitic vol] 88 fL Normal 81 - 98 [facility] Comment on above: Performed By: #### 2 05464 #### [facility],[address] [place] [address] [place] # 0.73 x10EE3/UL Normal 0.20 - 1.00 [facility] Comment on above: Performed By: #### 2 77701 #### [place] [address] MONOS % 11.9 % High 0.0 - 10.0 [facility] Comment on above: Performed By: #### 2 88519 #### [facility],[address] [place] [address] Morphology Mumtaz (Bld) [Interp] N/A Normal [facility] Comment on above: Performed By: #### 2 68444 #### [place] [address] Neut # 4.10 x10EE3/UL Normal 1.50 - 7.10 [facility] Comment on above: Performed By: #### 2 40716 #### [place] [address] Neutrophils/100 WBC (Bld) 66.6 % Normal 46.0 - 76.0 [facility] Comment on above: Performed By: #### 2 90016 #### [place] [address] PLATELET 141 x10EE3/UL Low 150 - 450 [facility] Comment on above: Performed By: #### 2 29656 #### [place] [address] Platelet mean volume (Bld) [Entitic vol] 10.0 fL Normal 6.4 - 10.5 [facility] Comment on above: Result Comment: AUTO MATED DIFFERENTIAL Performed By: #### 2 68508 #### [place] [address] RBC 4.58 x 10EE6/UL Normal 4.50 - 6.00 [facility] Comment on above: Performed By: #### 2 71865 #### [place] [id number] WBC 6.2 x 10EE3/UL Normal 4.5 - 10.8 [facility] Comment on above: Performed By: #### 2 77551 #### [facility],[address] [place] [address] 57150 NT-proBNPon 11-08-2024 Natriuretic peptide B (Bld) [Mass/Vol] 2486 pg/mL High 0 - 450 [facility] Comment on above: Performed By: #### 2 47780 #### [facility],[address] [place] [address] 44892 CNOVon 11-05-2024 CNOV Office Visit (INTMWS ) FEDERICO HU ([id number]) 1935 M Date Time Provider Department 11/05/24 12:00 PM KATHERIN MCKINNON INTMWS During your visit today, we recorded the following information about you: Pulse Blood pressure Weight 69/minute 110/50 159.1 kg Katherin Mckinnon, PLANNING DIRECTOR.FIRST AID TEACHER 11/05/2024 12:56 PM Signed Federico Hu is [...] Acevedo MD as PCP - Katherin Cabrera APRN.FIRST AID TEACHER as Stagecraft Teacher (Internal Medicine) [facility] watch guard gate-Dr. Strickland Geophysicist- Dr. Porras [facility] Medical/Family history review Reviewed and updated problem [...] 2 diabetes mellitus with neurological manifestations, controlled ([facility]) - ICD9: 250.60, ICD10: E11.49 - Control undetermined, due for labs - Continue current medications 4. Essential hypertension - ICD9: 401.9, ICD10: I10 - Controlled - Continue current medications - Recommend home blood pressure monitoring, to bring results to next visit - Encouraged sodium restriction, DASH or Mediterranean diet 5. CKD (chronic kidney disease) stage 4, GFR 15-29 ml/min ([facility]) - ICD9: 585.4, ICD10: N18.4 - eGFR: [...] Vaccine(1 - (more content not included)... Normal [facility] Calcium.ionized [Moles/Vol]o n 11-05-2024 Calcium.ionized (Bld) [Mass/Vol] 1.55 mmol/L High 1.08-1.30 [facility] Comment on above: Order Comment: Speci men Type: BLOOD SPECIMEN Ordering Facility: [facility] Address: [address] [place] [address] Performed By: #### 2 4321-2 #### [facility] [id number] [address] [place] [address] [place] Calcium.ionized adjusted to pH 7.4 (Bld) [Moles/Vol] 1.54 mmol/L High 1.08-1.30 [facility] Comment on above: Order Comment: Speci men Type: BLOOD SPECIMEN [facility] [facility] [place] Address: [address] [place] [address] Performed By: #### 2 4321-2 #### [facility] CLIA [id number] [address] [place] [address] [place] PTH RELATED PEPTIDEon 2023 PTH RELATED PEPTIDE 6.3 pmol/L High 0.0-2.3 [facility] Comment on above: Order Comment: Speci men Type: BLOOD SPECIMEN Ordering Facility: [facility] [place] Address: [address] [place] [address] Result Comment: INTE RPRETIVE INFORMATION: Parathyroid Hormone-Related Peptide This test was developed and its performance characteristics determined by [employer]. It has not been cleared or approved by the US Food and Drug Administration. This test was performed in a CLIA certified laboratory and is intended for clinical purposes. Performed By: [employer] [address] [place] [address] Cobol Programmer: Velia Montiel MD, PhD [place] Number: [id number] Performed By: #### 2 731-8 #### [facility] CLIA [id number] [address] [place] [address] [place] PTH-Intact SerPl-ncon 10-18 Parathyrin.intact [Mass/Vol] 65 pg/mL Normal 15-65 [facility] Comment on above: Order Comment: Speci men Type: BLOOD SPECIMEN Ordering Facility: [facility] [place] Address: [address] [place] [address] Performed By: #### 2 731-8 #### [facility] CLIA [id number] [address] [place] [address] [place] Renal function 2000 panelon 11-05-2024 Albumin [Mass/Vol] 4.1 g/dL Normal 3.9-4.[address] [facility] Comment on above: Order Comment: Speci men Type: BLOOD SPECIMEN Ordering Facility: [facility] [place] Address: [address] [place] [address] Performed By: #### 2 4321-2 #### [facility] CLIA [id number] [address] [place] [address] [place] Anion gap [Moles/Vol] 11 mmol/L Normal 8-15 [facility] Comment on above: Order Comment: Speci men Type: BLOOD SPECIMEN Ordering Facility: [facility] [place] Address: [address] [place] [address] Performed By: #### 2 4321-2 #### [facility] CLIA [id number] [address] [place] [address] [place] Calcium [Mass/Vol] 12.4 mg/dL High 8.5-10.[address] [facility] Comment on above: Order Comment: Speci men Type: BLOOD SPECIMEN Ordering Facility: [facility] [place] Address: [address] [place] [address] Performed By: #### 2 4321-2 #### [facility] CLIA [id number] [address] [place] [address] [place] Chloride [Moles/Vol] 103 mmol/L Normal 98-107 [facility] Comment on above: Order Comment: Speci men Type: BLOOD SPECIMEN Ordering Facility: [facility] [place] Address: [address] [place] [address] Performed By: #### 2 4321-2 #### [facility] CLIA [id number] [address] [place] [address] [place] CO2 [Moles/Vol] 28 mmol/L Normal 22-30 [facility] Comment on above: Order Comment: Speci men Type: BLOOD SPECIMEN Ordering Facility: [facility] [place] Address: [address] [place] [address] Performed By: #### 2 4321-2 #### [facility] CLIA [id number] [address] [place] [address] [place] Creatinine [Mass/Vol] 3.19 mg/dL High 0.73-1.22 [facility] Comment on above: Order Comment: Alexia wilson Type: BLOOD SPECIMEN Ordering Facility: [facility] [place] Address: [address] [place] [address] Performed By: #### 2 4321-2 #### [facility] [id number] [address] [place] [address] [place] Creatinine and Glomerular filtration rate.predicted panel (S/P/Bld) 18 mL/min/1.73m??? Low >=60 [facility] Comment on above: Order Comment: Alexia wilson Type: BLOOD SPECIMEN Ordering Facility: [facility] [place] Address: [address] [place] [address] Result Comment: Billie mated Glomerular Filtration Rate [...] GFR. Performed By: #### 2 4321-2 #### [facility] [id number] [address] [place] [address] [place] Glucose [Mass/Vol] 126 mg/dL High 74-[address] [facility] Comment on above: Order Comment: Alexia wilson Type: BLOOD SPECIMEN Ordering Facility: [facility] [place] Address: [address] [place] [address] Result Comment: The [place] Diabetes Association (ADA) provides guidance for cutoff [...] Standards of Medical Care in Diabetes 2016, [place] Diabetes Association. Diabetes Care. 2016.39(Suppl 1). Performed By: #### 2 4321-2 #### [facility] CLIA [id number] [address] [place] [address] [place] Phosphate [Mass/Vol] 3.9 mg/dL Normal 2.7-4.8 [facility] Comment on above: Order Comment: Alexia wilson Type: BLOOD SPECIMEN Ordering Facility: [facility] [place] Address: [address] [place] [address] Performed By: #### 2 4321-2 #### [facility] [id number] [address] [place] [address] [place] Potassium [Moles/Vol] 4.2 mmol/L Normal 3.7-5.1 [facility] Comment on above: Order Comment: Alexia wilson Type: BLOOD SPECIMEN Ordering Facility: [facility] [place] Address: [address] [place] [address] Performed By: #### 2 4321-2 #### [facility] [id number] [address] [place] [address] [place] Sodium [Moles/Vol] 142 mmol/L Normal 136-[address] [facility] Comment on above: Order Comment: Morgani men Type: BLOOD SPECIMEN Ordering Facility: [facility] [place] Address: [address] [place] [address] Performed By: #### 2 4321-2 #### [facility] [id number] [address] [place] [address] [place] Urea nitrogen [Mass/Vol] 60 mg/dL High 9-24 [facility] Comment on above: Order Comment: Speci men Type: BLOOD SPECIMEN Ordering Facility: [facility] [place] Address: [address] [id number] Performed By: #### 2 4321-2 #### [facility] ED[place] [id number] [address] [id number] [place] US KIDNEY/BLADDERon 11-05-20 [...] Normal sonographic appearance of kidneys and bladder. Product Consultant: [facility] Transcribe Date/Time: Nov 07 2024 7:29A Dictated by : MAITE RITTER MD This examination was interpreted and the report reviewed and electronically signed by: MAITE RITTER MD on Nov 07 2024 7:30AM EST [id number] Normal [facility] John 10-27-2024 MARCIA Telephone ([employer]) MELISSAFEDERICO BELTRAN ([id number]) 1935 M Date Time Provider Department 10/27/24 POPPY ELISE During your visit today, we recorded the following information about you: Poppy Elise, TOOL AND EQUIPMENT RENTAL CLERK 10/27/2024 12:04 PM Signed Sw spoke with patient spouse about ozempic and tresiba through [employer]. Spouse asked Sw to mail [employer] application to her to work on for patient for this next year. Sw asked about any other medications and she notes not at this time. She notes will most likely need to complete new application for [employer] for next year, but will let this Sw know. Allergies As of Date: 10/27/2024 Noted Allergy Reaction PROSCAR (FINASTERIDE) 07/02/2010 2 - Rash Date Reviewed: 10/22/2024 Reviewed by: Christal Palomares APRN.FIRST AID TEACHER - Fully Assessed Reason for Visit: 2024 [...] Encounter Status:Closed by POPPY ELISE on 10/27/24 [facility] John 09-27-2024 CNPN Telephone (BENEDICTO) FEDERICO HU ([id number]) 1935 M Date Time Provider Department 09/27/24 [...] Status:Closed by JAZLYN CARMEN on 09/27/24 Normal [facility] MONOCLONAL PROT UR W/INTERPO rdered By: Yomi Jimenez on 09-03-2024 Result (UMPA) No M protein is identified. No M protein is identified. [facility] Staff Review ([facility]) Reviewed by Florinda kelley M.D. [facility] ALBUMIN/CREATININE RATIO, UR INEon 09-02-2024 Albumin DL <= 20 mg/L (U) [Mass/Vol] 35.0 mg/L [facility] Albumin/Creatinine (U) [Mass ratio] 44 mg/g High NINF - 30 mg/g [facility] Comment on above: Adult Male and Femal [...] [Mass/Vol] 79.5 mg/dL 20.0 - 300.0 mg/dL [facility] Interpretation and review of laboratory results Abnormal [facility] URINALYSIS, REFLEX MICROSCOP ICon 09-01-2024 Bacteria LM.HPF (Urine sed) [#/Area] Negative Negative /HPF [facility] Bilirubin Ql (U) Negative Negative [facility] Clarity (Unsp spec) Clear Clear [facility] Color (U) Yellow Yellow [facility] Epithelial cells LM.HPF (Urine sed) [#/Area] None Seen /HPF [facility] Glucose Test strip (U) [Mass/Vol] 2+ Abnormal Negative [facility] Hemoglobin Ql (U) 2+ Abnormal Negative [facility] Hyaline casts (Urine sed) [#/Area] 4-10 /LPF Abnormal 0 /LPF [facility] Interpretation and review of laboratory results Abnormal [facility] Ketones Ql (U) Negative Negative [facility] Leukocyte esterase Test strip Ql (U) Negative Negative [facility] Nitrite Ql (U) Negative Negative [facility] pH (U) 5.5 [pH] NINF - 8.5 [facility] Protein (U) [Mass/Vol] Negative Negative [facility] RBC LM.HPF (Urine sed) [#/Area] /[HPF] Abnormal 0-2 /HPF [facility] Specific gravity (U) [Rel density] 1.013 1.005 - 1.030 [facility] Urobilinogen Ql (U) 0.2 EU/dL 0.2-1.0 EU/dL [facility] WBC LM.HPF (Urine sed) [#/Area] 0-5 /HPF 0-5 /HPF [facility] This test was develo ped and its performance characteristics determined by [facility]'s Aime Harrington [facility] [place] ([facility]). It has not been cleared or approved by the FDA. [facility] is regulated under CLIA as qualified to perform high-complexity testing. This test is used for clinical purposes. It should not be regarded as investigational or for research. [facility] Thin prep Papanicolaou smear with manual screeningOrdered By: Jerry Jimenes on 03-27-2024 Thin prep Papanicolaou smear with manual screening 132 mg/dL 74-106 [facility] Comment on above: MANAGEMENT OF PATIEN T CARE PER NURSING PROTOCOL HEMOGLOBIN A1C (POC)on 10-13 HbA1c (Bld) [Mass fraction] 6.7 % Abnormal 4.2 - 5.6 % [facility] LABORATORYOrdered By: Charbel Carnes on 07-07-2022 Blood Glucose Testing Reason Routine (07/07/22 11:58 AM) [facility] Work Phone: Glucose [Mass/Vol] 172 mg/dL Invalid Interpretation Code 82 - 115 mg/dL [facility] Work Phone: Blood Glucose Testing Reason Routine (07/07/22 7:54 AM) [facility] Work Phone: Glucose [Mass/Vol] 172 mg/dL Invalid Interpretation Code 82 - 115 mg/dL [facility] Work Phone: .Auto Diffon 07-06-2022 Basophil, Absolute 0.0 10 3/mcL Normal 0.0-0.3 [facility] ([place] Comment on above: Performed By: #### A PTT, FIB, PRO #### [facility] [address] [place] [address] Basophils/100 WBC (Bld) 0.8 % Normal 0.0-2.5 [facility] ([place] Comment on above: Performed By: #### A PTT, FIB, PRO #### [address] [address] Eosinophil, Absolute 0.3 10 3/mcL Normal 0.0-0.7 [facility] ([place] Comment on above: Performed By: #### A PTT, FIB, PRO #### [address] [address] Eosinophils/100 WBC (Bld) 5.3 % Normal 0.0-6.0 [facility] ([place] Comment on above: Performed By: #### A PTT, FIB, PRO #### [address] [address] Lymphocyte, Absolute 1.1 10 3/mcL Normal 0.9-4.3 [facility] ([place] Comment on above: Performed By: #### A PTT, FIB, PRO #### [address] [address] Lymphocytes/100 WBC (Bld) 17.9 % Low 20.0-40.0 [facility] ([place] Comment on above: Performed By: #### A PTT, FIB, PRO #### [address] [address] Monocyte, Absolute 0.6 10 3/mcL Normal 0.1-1.4 [facility] ([place] Comment on above: Performed By: #### A PTT, FIB, PRO #### [address] [address] Monocytes/100 WBC (Bld) 10.6 % Normal 2.0-13.0 [facility] ([place] Comment on above: Performed By: #### A PTT, FIB, PRO #### [address] [address] Neutrophils/100 WBC (Bld) 65.4 % Normal 50.0-75.0 [facility] ([place] Comment on above: Performed By: #### A PTT, FIB, PRO #### [address] [address] .GFRon 07-06-2022 GFR 34 ml/min/1.73sqm Normal [facility] ([place]) Comment on above: Result Comment: GFR Population [...] #### A PTT, FIB, PRO #### [address] [address] GFR Non- 28 ml/min/1.73sqm Normal [facility] ([place] Comment on above: Result Comment: GFR Population [...] #### A PTT, FIB, PRO #### [address] [address] .NEUABSon 07-06-2022 Neutrophil, Absolute 3.8 10 3/mcL Normal 2.3-8.1 [facility] ([place] Comment on above: Performed By: #### A PTT, FIB, PRO #### [address] [address] BMPon 07-06-2022 BUN/Creatinine Ratio 25.8 ratio High 10.0-22.0 [facility] ([place] Comment on above: Performed By: #### A PTT, FIB, PRO #### [address] [address] Calcium [Mass/Vol] 10.2 mg/dL Normal 8.7-10.4 [facility] ([place]) Comment on above: Performed By: #### A PTT, FIB, PRO #### [address] [address] Chloride [Moles/Vol] 108 mmol/L Normal 98-110 [facility] ([place] Comment on above: Performed By: #### A PTT, FIB, PRO #### [address] [address] CO2 [Moles/Vol] 29 mmol/L Normal 22-32 [facility] ([place] Comment on above: Performed By: #### A PTT, FIB, PRO #### [address] [address] Creatinine [Mass/Vol] 2.21 mg/dL High 0.60-1.40 [facility] ([place]) Comment on above: Performed By: #### A PTT, FIB, PRO #### [address] [address] Electrolyte Balance 5.0 mEq/L Normal 4.0-15.0 [facility] ([place]) Comment on above: Performed By: #### A PTT, FIB, PRO #### [address] [address] Glucose [Mass/Vol] 154 mg/dL High 82-115 [facility] ([place] Comment on above: Performed By: #### A PTT, FIB, PRO #### [address] [address] Potassium [Moles/Vol] 4.3 mmol/L Normal 3.5-5.0 [facility] ([place] Comment on above: Performed By: #### A PTT, FIB, PRO #### [address] [address] Sodium [Moles/Vol] 142 mmol/L Normal 136-145 [facility] ([place] Comment on above: Performed By: #### A PTT, FIB, PRO #### [place] [address] Urea nitrogen [Mass/Vol] 57.0 mg/dL High 8.0-22.0 [facility] ([place] Comment on above: Performed By: #### A PTT, FIB, PRO #### [place] [address] CBCon 07-06-2022 Erythrocyte distribution width (RBC) [Ratio] 14.2 % Normal 11.5-15.5 [facility] ([place] Comment on above: Performed By: #### A PTT, FIB, PRO #### [place] [address] Hematocrit (Bld) [Volume fraction] 33.9 % Low 40.0-52.0 [facility] ([place] Comment on above: Performed By: #### A PTT, FIB, PRO #### [place] [address] Hgb 11.2 G/dL Low 13.0-17.5 [facility] ([place] Comment on above: Performed By: #### A PTT, FIB, PRO #### [place] [address] MCH (RBC) [Entitic mass] 27.9 pg Normal 27.0-33.0 [facility] ([place] Comment on above: Performed By: #### A PTT, FIB, PRO #### [place] [address] MCHC 32.9 G/dL Normal 32.0-36.0 [facility] ([place] Comment on above: Performed By: #### A PTT, FIB, PRO #### [place] [address] MCV (RBC) [Entitic vol] 84.8 fL Normal 81.0-100.0 [facility] ([place] Comment on above: Performed By: #### A PTT, FIB, PRO #### [place] [address] Platelet 119 10 3/mcL Low 150-450 [facility] ([place] Comment on above: Performed By: #### A PTT, FIB, PRO #### [facility] [address] [place] [address] Platelet mean volume (Bld) [Entitic vol] 9.4 fL Normal 6.4-10.5 [facility] ([place] Comment on above: Performed By: #### A PTT, FIB, PRO #### [facility] [address] [place] [address] RBC 4.00 10 6/mcL Low 4.50-6.00 [facility] ([place] Comment on above: Performed By: #### A PTT, FIB, PRO #### [facility] [address] [place] [address] WBC 5.9 10 3/mcL Normal 4.5-10.8 [facility] ([place] Comment on above: Performed By: #### A PTT, FIB, PRO #### [address] [address] LABORATORYOrdered By: Suma salazar on 07-06-2022 Blood Glucose Testing Reason Routine (07/06/22 9:37 PM) [facility] Work Phone: Glucose [Mass/Vol] 213 mg/dL Invalid Interpretation Code 82 - 115 mg/dL [facility] Work Phone: LABORATORYOrdered By: SYSTEM SYSTEM on [...] Basophil, Absolute 0.0 10 3/mcL Normal 0.0-0.3 [facility] ([place] Comment on above: Performed By: #### A PTT, FIB, PRO #### [address] [address] Basophils/100 WBC (Bld) 0.8 % Normal 0.0-2.5 [facility] ([place] Comment on above: Performed By: #### A PTT, FIB, PRO #### [address] [address] Eosinophil, Absolute 0.3 10 3/mcL Normal 0.0-0.7 [facility] ([place] Comment on above: Performed By: #### A PTT, FIB, PRO #### [address] [address] Eosinophils/100 WBC (Bld) 5.9 % Normal 0.0-6.0 [facility] ([place] Comment on above: Performed By: #### A PTT, FIB, PRO #### [address] [address] Lymphocyte, Absolute 1.1 10 3/mcL Normal 0.9-4.3 [facility] ([place] Comment on above: Performed By: #### A PTT, FIB, PRO #### [address] [address] Lymphocytes/100 WBC (Bld) 21.3 % Normal 20.0-40.0 [facility] ([place] Comment on above: Performed By: #### A PTT, FIB, PRO #### [address] [address] Monocyte, Absolute 0.5 10 3/mcL Normal 0.1-1.4 [facility] ([place] Comment on above: Performed By: #### A PTT, FIB, PRO #### [address] [address] Monocytes/100 WBC (Bld) 10.3 % Normal 2.0-13.0 [facility] ([place] Comment on above: Performed By: #### A PTT, FIB, PRO #### [address] [address] Neutrophils/100 WBC (Bld) 61.7 % Normal 50.0-75.0 [facility] ([place] Comment on above: Performed By: #### A PTT, FIB, PRO #### [address] [address] .GFRon 07-05-2022 GFR 31 ml/min/1.73sqm Normal [facility] ([place] Comment on above: Result Comment: GFR Population [...] #### A PTT, FIB, PRO #### [address] [address] GFR Non- 26 ml/min/1.73sqm Normal [facility] ([place] Comment on above: Result Comment: GFR Population [...] #### A PTT, FIB, PRO #### [address] [address] .NEUABSon 07-05-2022 Neutrophil, Absolute 3.2 10 3/mcL Normal 2.3-8.1 [facility] ([place] Comment on above: Performed By: #### A PTT, FIB, PRO #### [address] [address] BMPon 07-05-2022 BUN/Creatinine Ratio 24.2 ratio High 10.0-22.0 [facility] ([place] Comment on above: Performed By: #### A PTT, FIB, PRO #### [address] [address] Calcium [Mass/Vol] 10.1 mg/dL Normal 8.7-10.4 [facility] ([place] Comment on above: Performed By: #### A PTT, FIB, PRO #### [address] [address] Chloride [Moles/Vol] 106 mmol/L Normal 98-110 [facility] ([place] Comment on above: Performed By: #### A PTT, FIB, PRO #### [address] [address] CO2 [Moles/Vol] 28 mmol/L Normal 22-32 [facility] ([place] Comment on above: Performed By: #### A PTT, FIB, PRO #### [address] [address] Creatinine [Mass/Vol] 2.40 mg/dL High 0.60-1.40 [facility] ([place]) Comment on above: Performed By: #### A PTT, FIB, PRO #### [address] [address] Electrolyte Balance 5.0 mEq/L Normal 4.0-15.0 [facility] ([place]) Comment on above: Performed By: #### A PTT, FIB, PRO #### [address] [address] Glucose [Mass/Vol] 148 mg/dL High 82-115 [facility] ([place] Comment on above: Performed By: #### A PTT, FIB, PRO #### [address] [address] Potassium [Moles/Vol] 4.5 mmol/L Normal 3.5-5.0 [facility] ([place]) Comment on above: Performed By: #### A PTT, FIB, PRO #### [address] [address] Sodium [Moles/Vol] 139 mmol/L Normal 136-145 [facility] ([place] Comment on above: Performed By: #### A PTT, FIB, PRO #### [address] [address] Urea nitrogen [Mass/Vol] 58.0 mg/dL High 8.0-22.0 [facility] ([place] Comment on above: Performed By: #### A PTT, FIB, PRO #### [address] [address] CBCon 07-05-2022 Erythrocyte distribution width (RBC) [Ratio] 14.4 % Normal 11.5-15.5 [facility] ([place] Comment on above: Performed By: #### A PTT, FIB, PRO #### [address] [address] Hematocrit (Bld) [Volume fraction] 32.9 % Low 40.0-52.0 [facility] ([place] Comment on above: Performed By: #### A PTT, FIB, PRO #### [address] [address] Hgb 10.7 G/dL Low 13.0-17.5 [facility] ([place] Comment on above: Performed By: #### A PTT, FIB, PRO #### [address] [address] MCH (RBC) [Entitic mass] 27.6 pg Normal 27.0-33.0 [facility] ([place] Comment on above: Performed By: #### A PTT, FIB, PRO #### [place] [id number] MCHC 32.6 G/dL Normal 32.0-36.0 [facility] ([place] Comment on above: Performed By: #### A PTT, FIB, PRO #### [place] [id number] MCV (RBC) [Entitic vol] 84.6 fL Normal 81.0-100.0 [facility] ([place] Comment on above: Performed By: #### A PTT, FIB, PRO #### [place] [id number] Platelet 115 10 3/mcL Low 150-450 [facility] ([place] Comment on above: Performed By: #### A PTT, FIB, PRO #### [place] [id number] Platelet mean volume (Bld) [Entitic vol] 9.4 fL Normal 6.4-10.5 [facility] ([place] Comment on above: Performed By: #### A PTT, FIB, PRO #### [place] [id number] RBC 3.89 10 6/mcL Low 4.50-6.00 [facility] ([place] Comment on above: Performed By: #### A PTT, FIB, PRO #### [address] [address] WBC 5.2 10 3/mcL Normal 4.5-10.8 [facility] ([place] Comment on above: Performed By: #### A PTT, FIB, PRO #### [address] [address] LABORATORYOrdered By: SYSTEM SYSTEM on 07-05-2022 Basophils [...] Basophil, Absolute 0.0 10 3/mcL Normal 0.0-0.3 [facility] ([place]) Comment on above: Performed By: #### Augustine GOLD, BMP #### [address] [address] Basophils/100 WBC (Bld) 0.8 % Normal 0.0-2.5 [facility] ([place] Comment on above: Performed By: #### Augustine FR, BMP #### [address] [address] Eosinophil, Absolute 0.3 10 3/mcL Normal 0.0-0.7 [facility] ([place]) Comment on above: Performed By: #### Augustine GOLD, BMP #### [address] [address] Eosinophils/100 WBC (Bld) 5.7 % Normal 0.0-6.0 [facility] ([place] Comment on above: Performed By: #### Augustine GOLD, BMP #### [address] [address] Lymphocyte, Absolute 1.1 10 3/mcL Normal 0.9-4.3 [facility] ([place]) Comment on above: Performed By: #### Augustine GOLD, BMP #### [address] [address] Lymphocytes/100 WBC (Bld) 18.9 % Low 20.0-40.0 [facility] ([place]) Comment on above: Performed By: #### Augustine FR, BMP #### [address] [address] Monocyte, Absolute 0.6 10 3/mcL Normal 0.1-1.4 [facility] ([place]) Comment on above: Performed By: #### G FR, BMP #### [address] [address] Monocytes/100 WBC (Bld) 10.8 % Normal 2.0-13.0 [facility] ([place] Comment on above: Performed By: #### Augustine FR, BMP #### [address] [address] Neutrophils/100 WBC (Bld) 63.8 % Normal 50.0-75.0 [facility] ([place] Comment on above: Performed By: #### G FR, BMP #### [address] [address] .GFRon 07-04-2022 GFR 29 ml/min/1.73sqm Normal [facility] ([place]) Comment on above: Result Comment: GFR Population [...] #### A PTT, FIB, PRO #### [address] [address] GFR Non- 24 ml/min/1.73sqm Normal [facility] ([place] Comment on above: Result Comment: GFR Population [...] #### A PTT, FIB, PRO #### [address] [address] .MDWon 07-04-2022 Monocyte Distribution Width Not performed Normal 0.00-20.00 [facility] ([place]) Comment on above: Result Comment: MDW testing performed only on adult ER patients between the ages of 18-89 years. Performed By: #### G FR, BMP #### [address] [address] .NEUABSon 07-04-2022 Neutrophil, Absolute 3.6 10 3/mcL Normal 2.3-8.1 [facility] ([place]) Comment on above: Performed By: #### G FR, BMP #### [address] [address] [facility] BUN/Creatinine Ratio 21.9 ratio Normal 10.0-22.0 [facility] ([place] Comment on above: Performed By: #### A PTT, FIB, PRO #### [place] [address] Calcium [Mass/Vol] 9.9 mg/dL Normal 8.7-10.4 [facility] ([place]) Comment on above: Performed By: #### A PTT, FIB, PRO #### [place] [address] Chloride [Moles/Vol] 107 mmol/L Normal 98-110 [facility] ([place] Comment on above: Performed By: #### A PTT, FIB, PRO #### [place] [address] CO2 [Moles/Vol] 28 mmol/L Normal 22-32 [facility] ([place] Comment on above: Performed By: #### A PTT, FIB, PRO #### [address] [address] Creatinine [Mass/Vol] 2.60 mg/dL High 0.60-1.40 [facility] ([place]) Comment on above: Performed By: #### A PTT, FIB, PRO #### [address] [address] Electrolyte Balance 7.0 mEq/L Normal 4.0-15.0 [facility] ([place]) Comment on above: Performed By: #### A PTT, FIB, PRO #### [address] [address] Glucose [Mass/Vol] 135 mg/dL High 82-115 [facility] ([place] Comment on above: Performed By: #### A PTT, FIB, PRO #### [address] [address] Potassium [Moles/Vol] 4.6 mmol/L Normal 3.5-5.0 [facility] ([place] Comment on above: Performed By: #### A PTT, FIB, PRO #### [address] [address] Sodium [Moles/Vol] 142 mmol/L Normal 136-145 [facility] ([place] Comment on above: Performed By: #### A PTT, FIB, PRO #### [place] [address] Urea nitrogen [Mass/Vol] 57.0 mg/dL High 8.0-22.0 [facility] ([place] Comment on above: Performed By: #### A PTT, FIB, PRO #### [address] [address] CBCon 07-04-2022 Erythrocyte distribution width (RBC) [Ratio] 13.9 % Normal 11.5-15.5 [facility] ([place] Comment on above: Performed By: #### G FR, BMP #### [place] [id number] Hematocrit (Bld) [Volume fraction] 32.7 % Low 40.0-52.0 [facility] ([place] Comment on above: Performed By: #### G FR, BMP #### [address] [address] Hgb 10.6 G/dL Low 13.0-17.5 [facility] ([place] Comment on above: Performed By: #### G FR, BMP #### [address] [address] MCH (RBC) [Entitic mass] 27.4 pg Normal 27.0-33.0 [facility] ([place] Comment on above: Performed By: #### Augustine GOLD, BMP #### [address] [address] MCHC 32.4 G/dL Normal 32.0-36.0 [facility] ([place] Comment on above: Performed By: #### Augustine GOLD, BMP #### [place] [address] MCV (RBC) [Entitic vol] 84.7 fL Normal 81.0-100.0 [facility] ([place] Comment on above: Performed By: #### Augustine GOLD, BMP #### [place] [address] Platelet 112 10 3/mcL Low 150-450 [facility] ([place] Comment on above: Performed By: #### Augustine GOLD, BMP #### [place] [address] Platelet mean volume (Bld) [Entitic vol] 9.4 fL Normal 6.4-10.5 [facility] ([place] Comment on above: Performed By: #### Augustine GOLD, BMP #### [place] [address] RBC 3.86 10 6/mcL Low 4.50-6.00 [facility] ([place] Comment on above: Performed By: #### Augustine GOLD, BMP #### [place] [address] WBC 5.7 10 3/mcL Normal 4.5-10.8 [facility] ([place] Comment on above: Performed By: #### Augustine GOLD, BMP #### [place] [address] LABORATORYOrdered By: SYSTEM SYSTEM on 07-04-2022 Basophils [...] Basophil, Absolute 0.1 10 3/mcL Normal 0.0-0.3 [facility] ([place] Comment on above: Performed By: #### A PTT, FIB, PRO #### [facility] [address] [place] [address] Basophils/100 WBC (Bld) 1.0 % Normal 0.0-2.5 [facility] ([place] Comment on above: Performed By: #### A PTT, FIB, PRO #### [address] [address] Eosinophil, Absolute 0.2 10 3/mcL Normal 0.0-0.7 [facility] ([place] Comment on above: Performed By: #### A PTT, FIB, PRO #### [address] [address] Eosinophils/100 WBC (Bld) 3.9 % Normal 0.0-6.0 [facility] ([place] Comment on above: Performed By: #### A PTT, FIB, PRO #### [address] [address] Lymphocyte, Absolute 1.1 10 3/mcL Normal 0.9-4.3 [facility] ([place]) Comment on above: Performed By: #### A PTT, FIB, PRO #### [address] [address] Lymphocytes/100 WBC (Bld) 19.2 % Low 20.0-40.0 [facility] ([place]) Comment on above: Performed By: #### A PTT, FIB, PRO #### [address] [address] Monocyte, Absolute 0.5 10 3/mcL Normal 0.1-1.4 [facility] ([place] Comment on above: Performed By: #### A PTT, FIB, PRO #### [address] [address] Monocytes/100 WBC (Bld) 9.4 % Normal 2.0-13.0 [facility] ([place]) Comment on above: Performed By: #### A PTT, FIB, PRO #### [address] [address] Neutrophils/100 WBC (Bld) 66.5 % Normal 50.0-75.0 [facility] ([place] Comment on above: Performed By: #### A PTT, FIB, PRO #### [address] [address] .GFRon 07-03-2022 GFR 30 ml/min/1.73sqm Normal [facility] ([place]) Comment on above: Result Comment: GFR [...] #### A PTT, FIB, PRO #### [address] [address] GFR Non- 25 ml/min/1.73sqm Normal [facility] ([place] Comment on above: Result Comment: GFR Population [...] #### A PTT, FIB, PRO #### [address] [address] .MDWon 07-03-2022 Monocyte Distribution Width Not performed Normal 0.00-20.00 [facility] ([place] Comment on above: Result Comment: MDW testing performed only on adult ER patients between the ages of 18-89 years. Performed By: #### A PTT, FIB, PRO #### [address] [address] .NEUABSon 07-03-2022 Neutrophil, Absolute 3.7 10 3/mcL Normal 2.3-8.1 [facility] ([place] Comment on above: Performed By: #### A PTT, FIB, PRO #### [address] [address] BMPon 07-03-2022 CO2 [Moles/Vol] 25 mmol/L Normal 22-32 [facility] ([place] Comment on above: Performed By: #### A PTT, FIB, PRO #### [address] [address] Electrolyte Balance 11.0 mEq/L Normal 4.0-15.0 [facility] ([place]) Comment on above: Performed By: #### A PTT, FIB, PRO #### [place] [phone] BUN/Creatinine Ratio 18.6 ratio Normal 10.0-22.0 [facility] ([place] Comment on above: Performed By: #### A PTT, FIB, PRO #### [place] [address] Calcium [Mass/Vol] 9.9 mg/dL Normal 8.7-10.4 [facility] ([place] Comment on above: Performed By: #### A PTT, FIB, PRO #### [place] [phone] Chloride [Moles/Vol] 107 mmol/L Normal 98-110 [facility] ([place] Comment on above: Performed By: #### A PTT, FIB, PRO #### [place] [phone] Creatinine [Mass/Vol] 2.47 mg/dL High 0.60-1.40 [facility] ([place] Comment on above: Performed By: #### A PTT, FIB, PRO #### [address] [address] Glucose [Mass/Vol] 124 mg/dL High 82-115 [facility] ([place] Comment on above: Performed By: #### A PTT, FIB, PRO #### [place] [phone] Potassium [Moles/Vol] 4.6 mmol/L Normal 3.5-5.0 [facility] ([place] Comment on above: Result Comment: Spec imen slightly hemolyzed. Performed By: #### A PTT, FIB, PRO #### [place] [phone] Sodium [Moles/Vol] 143 mmol/L Normal 136-145 [facility] ([place] Comment on above: Performed By: #### A PTT, FIB, PRO #### [place] [address] Urea nitrogen [Mass/Vol] 46.0 mg/dL High 8.0-22.0 [facility] ([place] Comment on above: Performed By: #### A PTT, FIB, PRO #### [place] [address] CBCon 07-03-2022 Erythrocyte distribution width (RBC) [Ratio] 14.3 % Normal 11.5-15.5 [facility] ([place] Comment on above: Performed By: #### A PTT, FIB, PRO #### [place] [address] Hematocrit (Bld) [Volume fraction] 33.3 % Low 40.0-52.0 [facility] ([place] Comment on above: Performed By: #### A PTT, FIB, PRO #### [place] [address] Hgb 10.8 G/dL Low 13.0-17.5 [facility] ([place] Comment on above: Performed By: #### A PTT, FIB, PRO #### [place] [address] MCH (RBC) [Entitic mass] 27.7 pg Normal 27.0-33.0 [facility] ([place] Comment on above: Performed By: #### A PTT, FIB, PRO #### [place] [phone] MCHC 32.4 G/dL Normal 32.0-36.0 [facility] ([place] Comment on above: Performed By: #### A PTT, FIB, PRO #### [address] [address] MCV (RBC) [Entitic vol] 85.4 fL Normal 81.0-100.0 [facility] ([place] Comment on above: Performed By: #### A PTT, FIB, PRO #### [address] [address] Platelet 118 10 3/mcL Low 150-450 [facility] ([place] Comment on above: Performed By: #### A PTT, FIB, PRO #### [address] [address] Platelet mean volume (Bld) [Entitic vol] 9.1 fL Normal 6.4-10.5 [facility] ([place] Comment on above: Performed By: #### A PTT, FIB, PRO #### [address] [address] RBC 3.90 10 6/mcL Low 4.50-6.00 [facility] ([place] Comment on above: Performed By: #### A PTT, FIB, PRO #### [address] [address] WBC 5.5 10 3/mcL Normal 4.5-10.8 [facility] ([place] Comment on above: Performed By: #### A PTT, FIB, PRO #### [address] [address] LABORATORYOrdered By: SYSTEM SYSTEM on 07-03-2022 Monocyte distribution width Auto (Bld) [Entitic vol] Not Performed 2 *NA* (07/03/22 4:41 AM) Invalid Interpretation Code 0.00 - 20.00 [facility] Comment on above: Result Comment: MDW testing performed only on adult ER patients between the ages of 18-89 years. APTTon 07-02-2022 aPTT Coag (Bld) [Time] 31.2 s Normal 25.0-35.0 [facility] ([place]) Comment on above: Result Comment: For Heparin anticoagulation therapy, the recommended therapeutic range is: 54-77 seconds (APTT Correlation with Anti-Xa therapeutic range of 0.3-0.7 units/ml). PLEASE REFERENCE THE PHARMACY PROTOCOL FOR DOSING. Performed By: #### A PTT, FIB, PRO #### [facility] [address] [place] [id number] Heparin dose (APTT) Unknown Normal [facility] ([place]) Comment on above: Performed By: #### A PTT, FIB, PRO #### [facility] [address] [place] [address] FIBon 07-02-2022 Fibrinogen 566 mg/dL High 250-560 [facility] ([place]) Comment on above: Performed By: #### A PTT, FIB, PRO #### [facility] [address] [place] [address] LABORATORYOrdered By: Irma Lugo on 07-02-2022 aPTT [...] 07-02-2022 Platelet 132 10 3/mcL Low 150-450 [facility] ([place] Comment on above: Performed By: #### A PTT, FIB, PRO #### [place] [address] [place] [address] PROon 07-02-2022 INR Coag (PPP) [Relative time] 1.2 {INR} Normal [facility] ([place]) Comment on above: Result Comment: [employer] (CHEST, 1992, [id number]) recommended therapeutic range for oral anticoagulant therapy is: LOW RISK: Prophylaxis of venous thrombosis INR: 2.0-3.0 Treatment of pulmonary embolism 2.0-3.0 Prevention of systemic embolism 2.0-3.0 HIGH RISK: Mechanical prosthetic valves 2.5-3.5 Performed By: #### A PTT, FIB, PRO #### [address] [address] PT Coag (PPP) [Time] 14.3 s Normal 9.0-14.9 [facility] ([place]) Comment on above: Result Comment: Effe ctive 05/31/08, Protime results may be affected by some antibiotics (i.e. Ciprofloxacin, Azithromycin, Bactrim) which may potentiate the action of oral anticoagulants, with further increases in Protime/INR. Performed By: #### A PTT, FIB, PRO #### [address] [address] .GFRon 07-01-2022 GFR 34 ml/min/1.73sqm Normal [facility] ([place] Comment on above: Result Comment: GFR Population [...] By: #### B MP, GFR #### [address] [address] GFR Non- 28 ml/min/1.73sqm Normal [facility] ([place] Comment on above: Result Comment: GFR Population [...] By: #### B MP, GFR #### [address] [address] BMPon 07-01-2022 BUN/Creatinine Ratio 23.3 ratio High 10.0-22.0 [facility] ([place]) Comment on above: Order Comment: UR GENT Performed By: #### B MP, GFR #### [address] [address] Calcium [Mass/Vol] 10.9 mg/dL High 8.7-10.4 [facility] ([place] Comment on above: Order Comment: UR GENT Performed By: #### B MP, GFR #### [address] [address] Chloride [Moles/Vol] 107 mmol/L Normal 98-110 [facility] ([place] Comment on above: Order Comment: UR GENT Performed By: #### B MP, GFR #### [address] [address] CO2 [Moles/Vol] 32 mmol/L Normal 22-32 [facility] ([place] Comment on above: Order Comment: UR GENT Performed By: #### B MP, GFR #### [address] [address] Creatinine [Mass/Vol] 2.23 mg/dL High 0.60-1.40 [facility] ([place]) Comment on above: Order Comment: UR GENT Performed By: #### B MP, GFR #### [address] [address] Electrolyte Balance -1.0 mEq/L Low 4.0-15.0 [facility] ([place] Comment on above: Order Comment: UR GENT Performed By: #### B MP, GFR #### [address] [address] Glucose [Mass/Vol] 164 mg/dL High 82-115 [facility] ([place] Comment on above: Order Comment: UR GENT Performed By: #### B MP, GFR #### [address] [address] Potassium [Moles/Vol] 4.5 mmol/L Normal 3.5-5.0 [facility] ([place] Comment on above: Order Comment: UR GENT Performed By: #### B MP, GFR #### [address] [address] Sodium [Moles/Vol] 138 mmol/L Normal 136-145 [facility] ([place] Comment on above: Order Comment: UR GENT Performed By: #### B MP, GFR #### [address] [address] Urea nitrogen [Mass/Vol] 52.0 mg/dL High 8.0-22.0 [facility] ([place] Comment on above: Order Comment: UR GENT Performed By: #### B MP, GFR #### [address] [address] LABORATORYOrdered By: SYSTEM SYSTEM on 07-01-2022 Calcium [...] Basophil, Absolute 0.1 10 3/mcL Normal 0.0-0.3 [facility] ([place] Comment on above: Performed By: #### A PTT, FIB, PRO #### [address] [address] Basophils/100 WBC (Bld) 1.0 % Normal 0.0-2.5 [facility] ([place] Comment on above: Performed By: #### A PTT, FIB, PRO #### [address] [address] Eosinophil, Absolute 0.3 10 3/mcL Normal 0.0-0.7 [facility] ([place] Comment on above: Performed By: #### A PTT, FIB, PRO #### [address] [address] Eosinophils/100 WBC (Bld) 4.9 % Normal 0.0-6.0 [facility] ([place] Comment on above: Performed By: #### A PTT, FIB, PRO #### [address] [address] Lymphocyte, Absolute 1.2 10 3/mcL Normal 0.9-4.3 [facility] ([place] Comment on above: Performed By: #### A PTT, FIB, PRO #### [address] [address] Lymphocytes/100 WBC (Bld) 18.5 % Low 20.0-40.0 [facility] ([place] Comment on above: Performed By: #### A PTT, FIB, PRO #### [address] [address] Monocyte, Absolute 0.7 10 3/mcL Normal 0.1-1.4 [facility] ([place] Comment on above: Performed By: #### A PTT, FIB, PRO #### [address] [address] Monocytes/100 WBC (Bld) 10.3 % Normal 2.0-13.0 [facility] ([place] Comment on above: Performed By: #### A PTT, FIB, PRO #### [address] [address] Neutrophils/100 WBC (Bld) 65.3 % Normal 50.0-75.0 [facility] ([place] Comment on above: Performed By: #### A PTT, FIB, PRO #### [address] [address] .GFRon 06-26-2022 GFR Non- 30 ml/min/1.73sqm Normal [facility] ([place]) Comment on above: Result Comment: GFR [...] #### A PTT, FIB, PRO #### [address] [address] GFR 37 ml/min/1.73sqm Normal [facility] ([place] Comment on above: Result Comment: GFR Population [...] #### A PTT, FIB, PRO #### [address] [address] .MDWon 06-26-2022 Monocyte Distribution Width Not performed Normal 0.00-20.00 [facility] ([place] Comment on above: Result Comment: MDW testing performed only on adult ER patients between the ages of 18-89 years. Performed By: #### A PTT, FIB, PRO #### [place] [address] .NEUABSon 06-26-2022 Neutrophil, Absolute 4.2 10 3/mcL Normal 2.3-8.1 [facility] ([place] Comment on above: Performed By: #### A PTT, FIB, PRO #### [place] [address] BMPon 06-26-2022 BUN/Creatinine Ratio 19.7 ratio Normal 10.0-22.0 [facility] ([place] Comment on above: Performed By: #### A PTT, FIB, PRO #### [place] [id number] Calcium [Mass/Vol] 10.8 mg/dL High 8.7-10.4 [facility] ([place] Comment on above: Performed By: #### A PTT, FIB, PRO #### [place] [id number] Chloride [Moles/Vol] 108 mmol/L Normal 98-110 [facility] ([place] Comment on above: Performed By: #### A PTT, FIB, PRO #### [place] [phone] CO2 [Moles/Vol] 28 mmol/L Normal 22-32 [facility] ([place] Comment on above: Performed By: #### A PTT, FIB, PRO #### [address] [address] Creatinine [Mass/Vol] 2.08 mg/dL High 0.60-1.40 [facility] ([place] Comment on above: Performed By: #### A PTT, FIB, PRO #### [address] [address] Electrolyte Balance 8.0 mEq/L Normal 4.0-15.0 [facility] ([place] Comment on above: Performed By: #### A PTT, FIB, PRO #### [address] [address] Glucose [Mass/Vol] 118 mg/dL High 82-115 [facility] ([place] Comment on above: Performed By: #### A PTT, FIB, PRO #### [address] [address] Potassium [Moles/Vol] 4.7 mmol/L Normal 3.5-5.0 [facility] ([place] Comment on above: Performed By: #### A PTT, FIB, PRO #### [address] [address] Sodium [Moles/Vol] 144 mmol/L Normal 136-145 [facility] ([place] Comment on above: Performed By: #### A PTT, FIB, PRO #### [address] [address] Urea nitrogen [Mass/Vol] 41.0 mg/dL High 8.0-22.0 [facility] ([place] Comment on above: Performed By: #### A PTT, FIB, PRO #### [address] [address] CBCon 06-26-2022 Erythrocyte distribution width (RBC) [Ratio] 14.1 % Normal 11.5-15.5 [facility] ([place] Comment on above: Performed By: #### A PTT, FIB, PRO #### [address] [address] Hematocrit (Bld) [Volume fraction] 38.0 % Low 40.0-52.0 [facility] ([place] Comment on above: Performed By: #### A PTT, FIB, PRO #### [place] [address] Hgb 12.1 G/dL Low 13.0-17.5 [facility] ([place] Comment on above: Performed By: #### A PTT, FIB, PRO #### [place] [address] MCH (RBC) [Entitic mass] 27.3 pg Normal 27.0-33.0 [facility] ([place] Comment on above: Performed By: #### A PTT, FIB, PRO #### [place] [address] MCHC 31.9 G/dL Low 32.0-36.0 [facility] ([place] Comment on above: Performed By: #### A PTT, FIB, PRO #### [place] [address] MCV (RBC) [Entitic vol] 85.6 fL Normal 81.0-100.0 [facility] ([place] Comment on above: Performed By: #### A PTT, FIB, PRO #### [place] [address] Platelet 150 10 3/mcL Normal 150-450 [facility] ([place] Comment on above: Performed By: #### A PTT, FIB, PRO #### [place] [address] Platelet mean volume (Bld) [Entitic vol] 9.5 fL Normal 6.4-10.5 [facility] ([place] Comment on above: Performed By: #### A PTT, FIB, PRO #### [place] [address] RBC 4.44 10 6/mcL Low 4.50-6.00 [facility] ([place] Comment on above: Performed By: #### A PTT, FIB, PRO #### [place] [address] WBC 6.5 10 3/mcL Normal 4.5-10.8 [facility] ([place] Comment on above: Performed By: #### A PTT, FIB, PRO #### [place] [id number] [place] [address] LABORATORYOrdered By: SYSTEM SYSTEM on 06-26-2022 Basophils [...] 6.9 % Abnormal 4.2 - 5.6 % [facility] BMP - EXTERNALon 06-04-2022 Anion gap [Moles/Vol] 11 mmol/L [facility] Calcium [Mass/Vol] 10.5 mg/dL 8.8 - 10. 5 MG/DL [facility] Chloride [Moles/Vol] 107 mmol/L 98 - 10 7 MEQ/L [facility] Creatinine [Mass/Vol] 2.32 mg/dL Abnormal 0.6 - 1.3 MG/DL [facility] GFR AFR AMER [facility] GFR/1.73 sq M.predicted among non-blacks MDRD (S/P/Bld) [Vol rate/Area] 27 mL/min/{1.73_m2} [facility] Glucose [Mass/Vol] 175 mg/dL Abnormal 74 - 106 MG/DL [facility] HCO3 (Bld) [Moles/Vol] 29 mmol/L [facility] Natriuretic peptide B (Bld) [Mass/Vol] 2406 pg/mL Abnormal 0 - 450 pg/mL [facility] Potassium [Moles/Vol] 4.8 mmol/L 3.5 - 5.1 MEQ/L [facility] Sodium [Moles/Vol] 142 mmol/L 136 - 145 MEQ/L [facility] Urea nitrogen [Mass/Vol] 44 mg/dL Abnormal 6 - 20 mg/dL [facility] LABORATORYOrdered By: Cecil Delgado on 05-15-2022 Blood Glucose Testing Reason Routine (05/15/22 5:18 PM) [facility] Work Phone: Glucose [Mass/Vol] 185 mg/dL Invalid Interpretation Code 82 - 115 mg/dL [facility] Work Phone: LABORATORYOrdered By: Percy Orozco on 05-15-2022 Blood Glucose Testing Reason Routine (05/15/22 11:30 AM) [facility] Work Phone: Glucose [Mass/Vol] 197 mg/dL Invalid Interpretation Code 82 - 115 mg/dL [facility] Work Phone: Blood Glucose Testing Reason Routine (05/15/22 7:21 AM) [facility] Work Phone: Glucose [Mass/Vol] 155 mg/dL Invalid Interpretation Code 82 - 115 mg/dL [facility] Work Phone: .GFRon 05-14-2022 GFR 37 ml/min/1.73sqm Normal [facility] ([place] Comment on above: Result Comment: GFR Population [...] By: #### A PTT, FIB, PRO #### [place] [address] GFR Non- 30 ml/min/1.73sqm Normal [facility] ([place] Comment on above: Result Comment: GFR Population [...] #### A PTT, FIB, PRO #### [address] [address] APTTon 05-14-2022 aPTT Coag (Bld) [Time] 29.5 s Normal 25.0-35.0 [facility] ([place] Comment on above: Result Comment: For Heparin anticoagulation therapy, the recommended therapeutic range is: 54-77 seconds (APTT Correlation with Anti-Xa therapeutic range of 0.3-0.7 units/ml). PLEASE REFERENCE THE PHARMACY PROTOCOL FOR DOSING. Performed By: #### A PTT, FIB, PRO #### [address] [address] Heparin dose (APTT) Unknown Normal [facility] ([place] Comment on above: Performed By: #### A PTT, FIB, PRO #### [address] [address] BMPon 05-14-2022 BUN/Creatinine Ratio 24.5 ratio High 10.0-22.0 [facility] ([place]) Comment on above: Performed By: #### A PTT, FIB, PRO #### [address] [address] Calcium [Mass/Vol] 10.2 mg/dL Normal 8.7-10.4 [facility] ([place]) Comment on above: Performed By: #### A PTT, FIB, PRO #### [address] [address] Chloride [Moles/Vol] 110 mmol/L Normal 98-110 [facility] ([place]) Comment on above: Performed By: #### A PTT, FIB, PRO #### [address] [address] CO2 [Moles/Vol] 24 mmol/L Normal 22-32 [facility] ([place]) Comment on above: Performed By: #### A PTT, FIB, PRO #### [address] [address] Creatinine [Mass/Vol] 2.08 mg/dL High 0.60-1.40 [facility] 1928[facility] ([place]) Comment on above: Performed By: #### A PTT, FIB, PRO #### [address] [address] Electrolyte Balance 9.0 mEq/L Normal 4.0-15.0 [facility]ly [facility] ([place]) Comment on above: Performed By: #### A PTT, FIB, PRO #### [address] [address] Glucose [Mass/Vol] 129 mg/dL High 82-115 [facility] ([place]) Comment on above: Performed By: #### A PTT, FIB, PRO #### [address] [address] Potassium [Moles/Vol] 4.8 mmol/L Normal 3.5-5.0 [facility] 1928[facility] ([place]) Comment on above: Performed By: #### A PTT, FIB, PRO #### [address] [address] Sodium [Moles/Vol] 143 mmol/L Normal 136-145 [facility] ([place]) Comment on above: Performed By: #### A PTT, FIB, PRO #### [address] [address] Urea nitrogen [Mass/Vol] 51.0 mg/dL High 8.0-22.0 [facility] ([place]) Comment on above: Performed By: #### A PTT, FIB, PRO #### [address] [address] FIBon 05-14-2022 Fibrinogen 631 mg/dL High 250-560 [facility] ([place]) Comment on above: Performed By: #### A PTT, FIB, PRO #### [address] [address] LABORATORYOrdered By: Marco Antonio Gil on 05-14-2022 [...] 05-14-2022 Platelet 178 10 3/mcL Normal 150-450 [facility] ([place]) Comment on above: Performed By: #### A PTT, FIB, PRO #### [place] [address] PROon 05-14-2022 INR Coag (PPP) [Relative time] 1.2 {INR} Normal [facility] ([place]) Comment on above: Result Comment: The [employer] (CHEST, 1992, 102:312S-25S) recommended therapeutic range for oral anticoagulant therapy is: LOW RISK: Prophylaxis of venous thrombosis INR: 2.0-3.0 Treatment of pulmonary embolism 2.0-3.0 Prevention of systemic embolism 2.0-3.0 HIGH RISK: Mechanical prosthetic valves 2.5-3.5 Performed By: #### A PTT, FIB, PRO #### [facility] [address] [place] [address] PT Coag (PPP) [Time] 13.9 s Normal 9.0-14.9 [facility] ([place]) Comment on above: Result Comment: Effe ctive 05/31/08, Protime results may be affected by some antibiotics (i.e. Ciprofloxacin, Azithromycin, Bactrim) which may potentiate the action of oral anticoagulants, with further increases in Protime/INR. 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 Product Consultant: QUYEN Transcribe Date/Time: Oct 31 2020 10:10A Dictated by : BECCA COLON MD This examination was interpreted and the report reviewed and electronically signed by: BECCA COLON MD on Oct 31 2020 10:12AM [facility] DIVISION OF RADIOLOGY * * *Final Report* [...] pelvis. DIVISION OF RADIOLOGY Provider, Ranjit greenwood [place] - 10/31/2020 * * *Final Report* * [...] changes left hip without acute osseous findings. Product Consultant: PSCB Transcribe Date/Time: Oct 31 2020 10:10A Dictated by : BECCA COLON MD This examination was interpreted and the report reviewed and electronically signed by: BECCA COLON MD on Oct 31 2020 10:12AM EST [facility] XR Pelvis and Hip - left AP and Lateral frogOrdered By: Ccf Provider on 10-31-2020 [facility] XR Pelvis and Hip - left AP and Lateral frogon 10-30-2020 Radiology Study observation (narrative) [facility] CNOVon 04-02-2018 CNOV Office Visit (AGCARDWST) FEDERICO HU ([id number]) 1935 MDate Time Provider Department04/02/18 2:00 PM [...] - metBeta carolin for ASHD with prior [place] or prior LVEF<40 (NQF 0070) - N/ABeta [...] surgery is essential. 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 EAT A WHOLE FOOD, PLANT BASED [...] on file.Follow-up and Disposition History RecordedEncounter Number: [id number] Status:Closed by AVELINO NGUYỄN MD on 04/02/18 [facility] PROGRESSon 04-02-2018 PROGRESS HNO ID: [id number] thor: Avelino Quick: (none)Author Type: PhysicianType: Progress NotesFiled: 04/02/2018 5:40 PMNote Text:PERTINENT CARDIAC HISTORYASHD - CABGx2 ([place]-LAD, SVG-D1) 2007Pulmonary embolism - post opHTNHLDMRBBBAtrial flutterOSA - CPAPCHF - diastolicADHERENCE TO GUIDELINESACE-I or ARB for HF with prior LVEF<40 (NQF 0081) - N/AASA or Plavix for ASHD (NQF 0067) - metBeta carolin for ASHD with prior WI or prior LVEF<40 (NQF 0070) - N/ABeta [...] is essential. He may be going to custodial and INR can befollowed there.I will see [...] There is moderate renal insufficiency. GFR is [id number].Electronically Signed:Avelino Nguyễn, Noel2017 2:22 [facility]: Nithin Acevedo MD [facility] CNOVon 02-19-2018 [facility] Office Visit (AGCARDWST) [facility] HU [facility][id number][facility] 1935 [facility]/19/18 9:00 AM AVELINO [...] - metBeta carolin for ASHD with prior WI or prior LVEFANDlt;40 (NQF 0070) - N/ABeta [...] ofsurgery. This will be carried out at [facility] in the near future. Chestx-ray and labs [...] seen since 02/19/17.Electronically Signed:Arleen Bailey 2017 9:57 [facility]: Nithin Acevedo, MDReferring Provider: AVELINO NGUYỄN [[id number]]Allergies As of Date: 02/19/2018 Noted Allergy ReactionPROSCAR (FINASTERIDE) 07/02/2010 2 - RashDate Reviewed: 02/19/2018Reviewed by: Anthony Ortiz - Fully AssessedReason for Visit: Follow Up [171]Primary Visit Diagnosis:Abnormal stress test [R94.39]Order(s):ECG B/O W INTERP (MED OFFICE) [ECG06] Order #: [id number] XR CHEST 2V FRONTAL/LAT [[id number]] Order #: [id number] FUTURE BASIC METABOLIC PNL [SQBMP] Order #: [id number] FUTURE CBC [SQCBC] Order #: [id number] FUTURE LEFT HEART CATH,PERCUTANEOUS [[id number]] Order #: [id number]: 1Prescriptions as of 02/19/2018 Sig: NITROGLYCERIN 0.4 [...] by AVELINO NGUYỄN MD on 02/20/18 Normal [facility] PROGRESSon 02-19-2018 PROGRESS HNO ID: [id number] thor: Avelino Quick: (none)Author Type: PhysicianType: Progress NotesFiled: 02/20/2018 8:37 AMNote Text:PERTINENT CARDIAC HISTORYASHD - CABGx2 ([place]-LAD, SVG-D1) 2007Pulmonary embolism - post opHTNHLDMRBBBAtrial flutterOSA - CPAPCHF - diastolicADHERENCE TO GUIDELINESACE-I or ARB for HF with prior LVEF<40 (NQF 0081) - N/AASA or Plavix for ASHD (NQF 0067) - metBeta carolin for ASHD with prior WI or prior LVEF<40 (NQF 0070) - N/ABeta [...] surgery. This will be carried out at [facility] in the [facility]. Chest x-ray and labs will be ordered.I [...] seen since 02/19/17.Electronically Signed:Arleen Bailey 2017 9:57 [facility]: Nithin Acevedo MD [facility] CNOVon 12-15-2017 CNOV Office Visit (AGCARDWST) FEDERICO HU ([id number]) 1935 [facility] Time Provider Department12/15/17 9:00 AM AVELINO NGUYỄN [...] - metBeta carolin for ASHD with prior WI or prior LVEFANDlt;40 (NQF 0070) - N/ABeta [...] with treatment plan.This note was generated using LitRes voice recognition system, and there may besome [...] normal.Electronically Signed:Avelino Nguyễn MDDecember 15, 2017 9:03 [facility]: Arianna Lazo MD 12/15/2017 9:03 AM [...] programs in your area.Referring Provider: AVELINO NGUYỄN [[id number]]Allergies As of Date: 12/15/2017 Noted Allergy ReactionPROSCAR [...] the following areas and 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 EAT A WHOLE FOOD, PLANT BASED [...] SmartForms filed during this visit:Extended VitalsEncounter Number: [id number] Status:Closed by AVELINO NGUYỄN MD on 12/15/17 Normal [facility] PROGRESSon 12-15-2017 PROGRESS HNO ID: [id number] thor: Avelino Quick: (none)Author Type: PhysicianType: Progress NotesFiled: 12/15/2017 12:15 PMNote Text:PERTINENT CARDIAC HISTORYASHD - CABGx2 2007Pulmonary embolism - post opHTNHLDMRBBBAtrial flutterOSA - CPAPCHF - diastolicADHERENCE TO GUIDELINESACE-I or ARB for HF with prior LVEF<40 (NQF 0081) - N/AASA or Plavix for ASHD (NQF 0067) - metBeta carolin for ASHD with prior WI or prior LVEF<40 (NQF 0070) - N/ABeta [...] with treatment plan.This note was generated using LitRes voice recognition system, and theremay be some [...] isnormal.Electronically Signed:Avelino Nguyễn MDDecember 15, 2017 9:03 [facility]: Nithin Acevedo MD [facility] 09-11-2017 [facility] Telephone (AGCARDWST) FEDERICO HU ( ) 1935 MDate Time Provider Elvhnztblh67/26/17 AVELINO NGUYỄN AGCARDWST During your visit today, we recorded the following information about you:René Lakhani, RN, RN 09/11/2017 5:29 PM SignedINR: 4.3Current warfarin dose 10mg daily.Avelino Nguyễn MD 09/11/2017 5:30 PM SignedHold one dose, [...] Status:Closed by RENÉ LAKHANI on 09/11/17 Normal [facility] Vital Signs Date Time Vital Sign Value Performing Clinician Facility 07-26-2025 12:24-0400 Body mass index (BMI) [Ratio] 49.09 kg/m2 Nithin Acevedo MD Work Phone: [facility] 07-26-2025 12:24-0400 Body temperature 96.3 [degF] Nithin Acevedo MD Work Phone: [facility] 07-26-2025 12:24-0400 Body weight 161.9 kg Nithin Acevedo MD Work Phone: [facility] 07-26-2025 12:24-0400 Diastolic blood pressure 45 mm[Hg] Nithin Acevedo MD Work Phone: [facility] 07-26-2025 12:24-0400 Heart rate 64 /min Nithin Acevedo MD Work Phone: [facility] 07-26-2025 12:24-0400 SaO2% (BldA) [Mass fraction] 96 % Nithin Acevedo MD Work Phone: [facility] 07-26-2025 12:24-0400 Systolic blood pressure 103 mm[Hg] Nithin Acevedo MD Work Phone: [facility] 07-23-2025 14:41-0400 Body temperature 98.4 [degF] Dr. Nithin Acevedo MD Work Phone: [facility] 07-23-2025 14:41-0400 Diastolic blood pressure 54 mm[Hg] Dr. Nithin Acevedo MD Work Phone: [facility] 07-23-2025 14:41-0400 Heart rate 73 /min Dr. Nithin Acevedo MD Work Phone: [facility] 07-23-2025 14:41-0400 Respiratory rate 18 /min Dr. Nithin Acevedo MD Work Phone: [facility] 07-23-2025 14:41-0400 SaO2% (BldA) [Mass fraction] 93 % Dr. Nithin Acevedo MD Work Phone: [facility] 07-23-2025 14:41-0400 Systolic blood pressure 140 mm[Hg] Dr. Nithin Acevedo MD Work Phone: 3(905)471-821208 [place] [address] 07-21-2025 14:58-0400 Body height 185.[address] Nithin Acevedo MD Work Phone: 2(080)639-739832 [place] [address] 07-21-2025 14:58-0400 Body weight 166.[address] Nithin Acevedo MD Work Phone: 3(373)342-630332 [place] [address] 07-21-2025 12:32-0400 Body mass index (BMI) [Ratio] 48.3 kg/m2 Dr. Nithin Acevedo MD Work Phone: 8(671)228-734132 [place] [address] 07-21-2025 11:57-0400 Body temperature 97.9 [degF] Dr. Nithin Acevedo MD Work Phone: 7(860)668-376432 [place] [address] 07-21-2025 11:57-0400 Diastolic blood pressure 51 mm[Hg] Dr. Nithin Acevedo MD Work Phone: 5(707)453-481332 [place] [address] 07-21-2025 11:57-0400 Heart rate 58 /min Dr. Nithin Acevedo MD Work Phone: 8(569)844-913032 [place] [address] 07-21-2025 11:57-0400 Respiratory rate 17 /min Dr. Nithin Acevedo MD Work Phone: 9(481)788-960432 [place] [address] 07-21-2025 11:57-0400 SaO2% (BldA) [Mass fraction] 95 % Dr. Nithin Acevedo MD Work Phone: 5(713)462-944832 [place] [address] 07-21-2025 11:57-0400 Systolic blood pressure 99 mm[Hg] Dr. Nithin Acevedo MD Work Phone: 3(176)697-274932 [place] [address] 07-21-2025 10:43-0400 Body mass index (BMI) [Ratio] 51.3 kg/m2 Dr. Nithin Acevedo MD Work Phone: 6(417)895-668032 [place] [address] 07-21-2025 10:43-0400 Body weight [address] Nithin Acevedo MD Work Phone: 8(500)650-109832 [place] [address] 07-21-2025 10:26-0400 Body height 180.[address] Nithin Acevedo MD Work Phone: [facility] 04-01-2025 11:13-0400 Body mass index (BMI) [Ratio] 47.58 kg/m2 Gisell Click PLANNING DIRECTOR.FIRST AID TEACHER Work Phone: [facility] 04-01-2025 11:130400 Body weight 156.94 kg Gisell Click PLANNING DIRECTOR.FIRST AID TEACHER Work Phone: [facility] Comment on above: approx 04-01-2025 11:13-0400 Diastolic blood pressure 64 mm[Hg] Gisell Click PLANNING DIRECTOR.FIRST AID TEACHER Work Phone: [facility] 04-01-2025 11:13-0400 Heart rate 57 /min Gisell Click PLANNING DIRECTOR.FIRST AID TEACHER Work Phone: [facility] 04-01-2025 11:13-0400 SaO2% (BldA) [Mass fraction] 95 % Gisell Click PLANNING DIRECTOR.FIRST AID TEACHER Work Phone: [facility] 04-01-2025 11:13-0400 Systolic blood pressure 106 mm[Hg] Gisell Click PLANNING DIRECTOR.FIRST AID TEACHER Work Phone: [facility] 03-07-2025 11:09-0400 Body mass index (BMI) [Ratio] 47.6 kg/m2 Katherin Michelle PLANNING DIRECTOR.FIRST AID TEACHER Work Phone: [facility] 03-07-2025 11:09-0400 Body weight 157 kg Katherin Michelle PLANNING DIRECTOR.FIRST AID TEACHER Work Phone: [facility] 03-07-2025 11:09-0400 Diastolic blood pressure 52 mm[Hg] Katherin Michelle PLANNING DIRECTOR.FIRST AID TEACHER Work Phone: [facility] 03-07-2025 11:09-0400 Heart rate 66 /min Katherin CallahanMichelle PLANNING DIRECTOR.FIRST AID TEACHER Work Phone: [facility] 03-07-2025 11:09-0400 Respiratory rate 18 /min Katherin Mckinnon APRN.RAJWINDER Work Phone: [facility] 03-07-2025 11:09-0400 SaO2% (BldA) [Mass fraction] 96 % Katherin Mckinnon APRN.FIRST AID TEACHER Work Phone: [facility] 03-07-2025 11:09-0400 Systolic blood pressure 100 mm[Hg] Katherin Mckinnon APRN.FIRST AID TEACHER Work Phone: [facility] 02-15-2025 08:50-0400 Body height 181.6 cm Pacc 1 Work Phone: [facility] 02-15-2025 08:50-0400 Body mass index (BMI) [Ratio] 47.06 kg/m2 Pacc 1 Work Phone: [facility] 02-15-2025 08:50-0400 Body weight 155.22 kg Pacc 1 Work Phone: [facility] 02-15-2025 08:50-0400 Diastolic blood pressure 72 mm[Hg] Pacc 1 Work Phone: [facility] 02-15-2025 08:50-0400 Heart rate 73 /min Pacc 1 Work Phone: [facility] 02-15-2025 08:50-0400 Respiratory rate 22 /min Pacc 1 Work Phone: [facility] 02-15-2025 08:50-0400 SaO2% (BldA) [Mass fraction] 95 % Pacc 1 Work Phone: [facility] 02-15-2025 08:50-0400 Systolic blood pressure 116 mm[Hg] Pacc 1 Work Phone: [facility] 01-21-2025 10:53-0500 Body height 181.6 cm Viet Lee MD Work Phone: [facility] 01-21-2025 10:53-0500 Body mass index (BMI) [Ratio] 46.35 kg/m2 Viet Lee MD Work Phone: [facility] 01-21-2025 10:53-0500 Body weight 152.86 kg Viet Lee MD Work Phone: [facility] 01-21-2025 10:53-0500 Diastolic blood pressure 66 mm[Hg] Viet Lee MD Work Phone: [facility] 01-21-2025 10:53-0500 Heart rate 52 /min Viet Lee MD Work Phone: [facility] 01-21-2025 10:53-0500 Respiratory rate 17 /min Viet Lee MD Work Phone: [facility] 01-21-2025 10:53-0500 SaO2% (BldA) [Mass fraction] 96 % Viet Lee MD Work Phone: [facility] 01-21-2025 10:53-0500 Systolic blood pressure 130 mm[Hg] Viet Lee MD Work Phone: [facility] 01-21-2025 10:52-0500 Body height 181.6 cm Pulm Wstr Work Phone: [facility] 01-21-2025 10:52-0500 Body mass index (BMI) [Ratio] 46.35 kg/m2 Pulm Wstr Work Phone: [facility] 01-21-2025 10:52-0500 Body weight 152.86 kg Pulm Wstr Work Phone: [facility] 01-21-2025 10:52-0500 Heart rate 52 /min Pulm Wstr Work Phone: [facility] 01-21-2025 10:52-0500 SaO2% (BldA) [Mass fraction] 96 % Pulm Wstr Work Phone: [facility] 12-13-2024 14:40-0500 Body height 177 cm Homer Carpio APRN.FIRST AID TEACHER, PhD Work Phone: [facility] 12-13-2024 14:40-0500 Body mass index (BMI) [Ratio] 50.5 kg/m2 [facility] PLANNING DIRECTOR.FIRST AID TEACHER, PhD Work Phone: [facility] 12-13-2024 14:40-0500 Body temperature 97.5 [degF] [facility] PLANNING DIRECTOR.FIRST AID TEACHER, PhD Work Phone: [facility] 12-13-2024 14:40-0500 Body weight 158.2 kg [facility] PLANNING DIRECTOR.FIRST AID TEACHER, PhD Work Phone: [facility] 12-13-2024 14:40-0500 Diastolic blood pressure 58 mm[Hg] [facility] DIRECT[facility].FIRST AID TEACHER, PhD Work Phone: [facility] 12-13-2024 14:40-0500 Heart rate 80 /min [facility] PLANNING DIRECTOR.FIRST AID TEACHER, PhD Work Phone: [facility] 12-13-2024 14:40-0500 Respiratory rate 18 /min [facility] PLANNING DIRECTOR.FIRST AID TEACHER, PhD Work Phone: [facility] 12-13-2024 14:40-0500 SaO2% (BldA) [Mass fraction] 97 % [facility] PLANNING DIRECTOR.FIRST AID TEACHER, PhD Work Phone: [facility] 12-13-2024 14:40-0500 Systolic blood pressure 109 mm[Hg] [facility] PLANNING DIRECTOR.FIRST AID TEACHER, PhD Work Phone: [facility] 12-13-2024 12:19-0500 Body height 178 cm Kristin Guevara MD Work Phone: [facility] 12-13-2024 12:19-0500 Body mass index (BMI) [Ratio] 49.93 kg/m2 Kristin Guevara MD Work Phone: [facility] 12-13-2024 12:19-0500 Body weight 158.2 kg Kristin Guevara MD Work Phone: [facility] 12-13-2024 12:19-0500 Diastolic blood pressure 48 mm[Hg] Kristin Guevara MD Work Phone: [facility] 12-13-2024 12:19-0500 Heart rate 61 /min Kristin Guevara MD Work Phone: [facility] 12-13-2024 12:19-0500 Systolic blood pressure 123 mm[Hg] Kristin Guevara MD Work Phone: [facility] 11-26-2024 16:27-0500 Body mass index (BMI) [Ratio] 46.04 kg/m2 Nithin Acevedo MD Work Phone: [facility] 11-26-2024 16:27-0500 Body weight 158.3 kg Nithin Acevedo MD Work Phone: [facility] 11-26-2024 16:27-0500 Diastolic blood pressure 50 mm[Hg] Nithin Acevedo MD Work Phone: [facility] 11-26-2024 16:27-0500 Heart rate 65 /min Nithin Acevedo MD Work Phone: [facility] 11-26-2024 16:27-0500 SaO2% (BldA) [Mass fraction] 98 % Nithin Acevedo MD Work Phone: [facility] 11-26-2024 16:27-0500 Systolic blood pressure 120 mm[Hg] Nithin Acevedo MD Work Phone: [facility] 11-05-2024 11:19-0500 Body mass index (BMI) [Ratio] 46.28 kg/m2 Katherin Mckinnon APRN.FIRST AID TEACHER Work Phone: [facility] 11-05-2024 11:19-0500 Body weight 159.1 kg Katherin Mckinnon PLANNING DIRECTOR.FIRST AID TEACHER Work Phone: [facility] 11-05-2024 11:19-0500 Diastolic blood pressure 50 mm[Hg] Katherin Mckinnon APRN.FIRST AID TEACHER Work Phone: [facility] 11-05-2024 11:19-0500 Heart rate 69 /min Katherin Mckinnon APRN.FIRST AID TEACHER Work Phone: [facility] 11-05-2024 11:19-0500 SaO2% (BldA) [Mass fraction] 94 % Katherin Michelle PLANNING DIRECTOR.FIRST AID TEACHER Work Phone: [facility] 11-05-2024 11:19-0500 Systolic blood pressure 110 mm[Hg] Katherin Michelle PLANNING DIRECTOR.FIRST AID TEACHER Work Phone: [facility] 09-01-2024 12:45-0400 Body height 185.4 cm Velia Taliercio DO Work Phone: [facility] 09-01-2024 12:45-0400 Body mass index (BMI) [Ratio] 47.93 kg/m2 Velia Taliercio DO Work Phone: [facility] 09-01-2024 12:45-0400 Body weight 164.8 kg Velia Taliercio DO Work Phone: [facility] 09-01-2024 12:45-0400 Diastolic blood pressure 60 mm[Hg] Velia Taliercio DO Work Phone: [facility] 09-01-2024 12:45-0400 Heart rate 65 /min Velia Taliercio DO Work Phone: [facility] 09-01-2024 12:45-0400 Systolic blood pressure 124 mm[Hg] Velia Taliercio DO Work Phone: [facility] 07-28-2024 10:54-0400 Diastolic blood pressure 64 mm[Hg] Katherin Michelle PLANNING DIRECTOR.FIRST AID TEACHER Work Phone: [facility] 07-28-2024 10:54-0400 Heart rate 73 /min Katherin Michelle PLANNING DIRECTOR.FIRST AID TEACHER Work Phone: [facility] 07-28-2024 10:54-0400 Respiratory rate 20 /min Katherin Michelle PLANNING DIRECTOR.FIRST AID TEACHER Work Phone: [facility] 07-28-2024 10:54-0400 SaO2% (BldA) [Mass fraction] 94 % Katherin Michelle PLANNING DIRECTOR.FIRST AID TEACHER Work Phone: [facility] 07-28-2024 10:54-0400 Systolic blood pressure 118 mm[Hg] Katherin Mckinnon APRN.FIRST AID TEACHER Work Phone: [facility] 03-27-2024 15:08-0400 Body temperature 98.3 [degF] [facility] 03-27-2024 15:08-0400 Diastolic blood pressure 72 mm[Hg] [facility] 03-27-2024 15:08-0400 Heart rate 74 /min [facility] 03-27-2024 15:08-0400 Respiratory rate 16 /min [facility] 03-27-2024 15:08-0400 SaO2% (BldA) [Mass fraction] 99 % [facility] 03-27-2024 15:08-0400 Systolic blood pressure 130 mm[Hg] [facility] 03-27-2024 12:34-0400 Body mass index (BMI) [Ratio] 50.8 kg/m2 [facility] 03-27-2024 12:34-0400 Body weight 165.4 kg [facility] 03-27-2024 12:33-0400 Body height 180.34 cm [facility] 03-27-2024 12:03-0400 Body temperature 97.11 [degF] Sujata Begum APRN.FIRST AID TEACHER Work Phone: [facility] 03-27-2024 12:03-0400 Diastolic blood pressure 76 mm[Hg] Sujata Begum APRN.FIRST AID TEACHER Work Phone: [facility] 03-27-2024 12:03-0400 Heart rate 82 /min Sujata Begum APRN.FIRST AID TEACHER Work Phone: [facility] 03-27-2024 12:03-0400 Respiratory rate 20 /min Sujata Begum APRN.FIRST AID TEACHER Work Phone: [facility] 03-27-2024 12:03-0400 SaO2% (BldA) [Mass fraction] 97 % Sujata Begum APRN.FIRST AID TEACHER Work Phone: [facility] 03-27-2024 12:03-0400 Systolic blood pressure 121 mm[Hg] Sujata Begum PLANNING DIRECTOR.FIRST AID TEACHER Work Phone: [facility] 10-13-2023 14:55-0500 Body height 181.6 cm Katherin Older PLANNING DIRECTOR.FIRST AID TEACHER Work Phone: [facility] 10-13-2023 14:55-0500 Body weight 169.19 kg Katherin Older PLANNING DIRECTOR.FIRST AID TEACHER Work Phone: [facility] 10-13-2023 14:55-0500 Diastolic blood pressure 66 mm[Hg] Katherin Older PLANNING DIRECTOR.FIRST AID TEACHER Work Phone: [facility] 10-13-2023 14:55-0500 Heart rate 52 /min Katherin Older PLANNING DIRECTOR.FIRST AID TEACHER Work Phone: [facility] 10-13-2023 14:55-0500 Respiratory rate 16 /min Katherin Older PLANNING DIRECTOR.FIRST AID TEACHER Work Phone: [facility] 10-13-2023 14:55-0500 SaO2% (BldA) [Mass fraction] 97 % Katherin Older PLANNING DIRECTOR.FIRST AID TEACHER Work Phone: [facility] 10-13-2023 14:55-0500 Systolic blood pressure 128 mm[Hg] Katherin Older PLANNING DIRECTOR.FIRST AID TEACHER Work Phone: [facility] 07-07-2022 08:32-0400 Body temperature 97.88 [degF] LAURENT MYERS MD [facility] 07-07-2022 08:32-0400 Diastolic blood pressure 66 mm[Hg] LAURENT MYERS MD [facility] 07-07-2022 08:32-0400 Heart rate 62 /min LAURENT MYERS MD [facility] 07-07-2022 08:32-0400 Reason For Taking VItal Signs LAURENT MYERS MD [facility] 07-07-2022 08:32-0400 Respiratory rate 20 /min LAURENT MYERS MD [address] [place] [address] 07-07-2022 08:32-0400 Systolic blood pressure 144 mm[Hg] LAURENT MYERS MD [address] [place] [address] 07-07-2022 00:37-0400 Body temperature 98.06 [degF] LAURENT MYERS MD [address] [place] [address] 07-07-2022 00:37-0400 Diastolic blood pressure 59 mm[Hg] LAURENT MYERS MD [address] [place] [address] 07-07-2022 00:37-0400 Heart rate 71 /min LAURENT MYERS MD [address] [place] [address] 07-07-2022 00:37-0400 Systolic blood pressure 121 mm[Hg] LAURENT MYERS MD [address] [place] [address] 07-06-2022 15:10-0400 Body temperature 98.24 [degF] LAURENT MYERS MD [address] [place] [address] 07-06-2022 15:10-0400 Diastolic blood pressure 54 mm[Hg] LAURENT MYERS MD [address] [place] [address] 07-06-2022 15:10-0400 Heart rate 66 /min LAURENT MYERS MD [address] [place] [address] 07-06-2022 15:10-0400 Reason For Taking VItal Signs LAURENT MYERS MD [address] [place] [address] 07-06-2022 15:10-0400 Respiratory rate 16 /min LAURENT MYERS MD [address] [place] [address] 07-06-2022 15:10-0400 Systolic blood pressure 136 mm[Hg] LAURENT MYERS MD [address] [place] [address] 07-06-2022 08:01-0400 Heart rate 73 /min LAURENT MYERS MD [address] [place] [address] 07-06-2022 08:01-0400 Mean blood pressure 71 mm[Hg] LAURENT MYERS MD [address] [place] [address] 07-06-2022 08:01-0400 Respiratory rate 18 /min LAURENT MYERS MD [address] [place] [address] 07-05-2022 21:15-0400 Reason For Taking VItal Signs LAURENT MYERS MD [address] [place] [address] 07-04-2022 15:15-0400 Body temperature 98.42 [degF] LAURENT MYERS MD [address] [place] [address] 07-03-2022 04:41-0400 Heart rate 77 /min LAURENT MYERS MD [address] [place] [address] 07-03-2022 00:21-0400 Body temperature 98.06 [degF] LAURENT MYESR MD [address] [place] [address] 07-02-2022 23:58-0400 Heart rate 75 /min LAURENT MYERS MD [address] [place] [address] 07-02-2022 15:05-0400 Heart rate 72 /min LAURENT MYERS MD [address] [place] [address] 07-02-2022 14:58-0400 Body height 182.9 cm LAURENT MYERS MD [address] [place] [address] 07-02-2022 14:58-0400 Body weight 156.5 kg LAURENT MYERS MD [address] [place] [address] 07-02-2022 14:58-0400 Body weight 46.78 kg/m2 LAURENT MYERS MD [address] [place] [address] 07-02-2022 13:46-0400 Body temperature 96.8 [degF] LAURENT MYERS MD [address] [place] [address] 07-02-2022 13:46-0400 Diastolic Blood Pressure NBP 61 1 LAURENT MYERS MD [address] [place] [address] 07-02-2022 13:46-0400 Heart rate 73 /min LAURENT MYERS MD [facility] 07-02-2022 13:46-0400 Mean blood pressure 72 mm[Hg] LAURENT MYERS MD [facility] 07-02-2022 13:46-0400 Systolic Blood Pressure NBP 133 1 LAURENT MYERS MD [address] [place] [address] 07-02-2022 13:31-0400 Diastolic Blood Pressure NBP 58 1 LAURENT MYERS MD [address] [place] [address] 07-02-2022 13:31-0400 Mean blood pressure 71 mm[Hg] LAURENT MYERS MD [address] [place] [address] 07-02-2022 13:31-0400 Systolic Blood Pressure NBP 131 1 LAURENT MYERS MD [facility] 07-02-2022 13:15-0400 Diastolic Blood Pressure NBP 52 1 LAURENT MYERS MD [address] [place] [address] 07-02-2022 13:15-0400 Mean blood pressure 70 mm[Hg] LAURENT MYERS MD [facility] 07-02-2022 13:15-0400 Systolic Blood Pressure NBP 125 1 LAURENT MYERS MD [facility] 07-02-2022 12:21-0400 Body temperature 97.16 [degF] LAURENT MYERS MD [facility] 07-02-2022 12:05-0400 Body temperature 96.76 [degF] LAURENT MYERS MD [facility] 07-02-2022 12:00-0400 Body temperature 96.78 [degF] LAURENT MYERS MD [facility] 07-02-2022 11:55-0400 Body temperature 96.8 [degF] LAURENT MYERS MD [facility] 07-02-2022 08:35-0400 Body height 182.9 cm LAURENT MYERS MD [facility] 07-02-2022 08:35-0400 Body temperature 97.34 [degF] LAURENT MYERS MD [facility] 07-02-2022 08:35-0400 Body weight 156.5 kg LAURENT MYERS MD [facility] 07-02-2022 08:35-0400 Mean blood pressure 83 mm[Hg] LAURENT MYERS MD [facility] 06-26-2022 11:40-0400 Body height 180 cm LAURENT MYERS MD [facility] 06-26-2022 11:40-0400 Body temperature 96.8 [degF] LAURENT MYERS MD [facility] 06-26-2022 11:40-0400 Body weight 160.6 kg LAURENT MYERS MD [facility] 06-26-2022 11:40-0400 diastolic 69 mm[Hg] LAURENT MYERS MD [facility] 06-26-2022 11:40-0400 Heart rate 79 /min LAURENT MYERS MD [facility] 06-26-2022 11:40-0400 systolic 146 mm[Hg] LAURENT MYERS MD [facility] 06-12-2022 14:06-0400 Body height 180.3 cm Nitihn Acevedo MD Work Phone: [facility] 06-12-2022 14:06-0400 Body temperature 96.8 [degF] Nithin Acevedo MD Work Phone: [facility] 06-12-2022 14:06-0400 Body weight 155.13 kg Nithin Acevedo MD Work Phone: [facility] 06-12-2022 14:06-0400 Diastolic blood pressure 68 mm[Hg] Nithin Acevedo MD Work Phone: [facility] 06-12-2022 14:06-0400 Heart rate 64 /min Nithin Acevedo MD Work Phone: [facility] 06-12-2022 14:06-0400 Respiratory rate 18 /min Nithin Acevedo MD Work Phone: [facility] 06-12-2022 14:06-0400 Systolic blood pressure 130 mm[Hg] Nithin Acevedo MD Work Phone: [facility] 05-15-2022 16:31-0400 Body temperature 97.7 [degF] LAURENT MYERS MD [facility] 05-15-2022 16:31-0400 Diastolic blood pressure 57 mm[Hg] LAURENT MYERS MD [facility] 05-15-2022 16:31-0400 Heart rate 65 /min LAURENT MYERS MD [facility] 05-15-2022 16:31-0400 Reason For Taking VItal Signs LAURENT MYERS MD [facility] 05-15-2022 16:31-0400 Respiratory rate 16 /min LAURENT MYERS MD [facility] 05-15-2022 16:31-0400 Systolic blood pressure 108 mm[Hg] LAURENT MYERS MD [facility] 05-15-2022 16:30-0400 Body temperature 97.7 [degF] LAURENT MYERS MD [facility] 05-15-2022 16:30-0400 Diastolic blood pressure 50 mm[Hg] LAURENT MYERS MD [facility] 05-15-2022 16:30-0400 Heart rate 65 /min LAURENT MYERS MD [facility] 05-15-2022 16:30-0400 Systolic blood pressure 90 mm[Hg] LAURENT MYERS MD [facility] 05-15-2022 14:42-0400 Body temperature 97.7 [degF] LAURENT MYERS MD [facility] 05-15-2022 14:42-0400 Diastolic blood pressure 60 mm[Hg] LAURENT MYERS MD [facility] 05-15-2022 14:42-0400 Heart rate 67 /min LAURENT MYERS MD [facility] 05-15-2022 14:42-0400 Reason For Taking VItal Signs LAURENT MYERS MD [facility] 05-15-2022 14:42-0400 Respiratory rate 16 /min LAURENT MYERS MD [facility] 05-15-2022 14:42-0400 Systolic blood pressure 99 mm[Hg] LAURENT MYERS MD [facility] 05-15-2022 11:15-0400 Heart rate 54 /min LAURENT MYERS MD [facility] 05-15-2022 11:15-0400 Reason For Taking VItal Signs LAURENT MYERS MD [facility] 05-15-2022 11:15-0400 Respiratory rate 16 /min LAURENT MYERS MD [facility] 05-14-2022 10:15-0400 Body height 182.9 cm LAURENT MYERS MD [facility] 05-14-2022 10:15-0400 Body weight 159.7 kg LAURENT MYERS MD [facility] 05-14-2022 10:15-0400 Body weight 47.74 kg/m2 LAURENT MYERS MD [facility] 05-14-2022 09:36-0400 Diastolic Blood Pressure NBP 46 1 LAURENT MYERS MD [facility] 05-14-2022 09:36-0400 Heart rate 70 /min LAURENT MYERS MD [facility] 05-14-2022 09:36-0400 Mean blood pressure 62 mm[Hg] LAURENT MYERS MD [facility] 05-14-2022 09:36-0400 Systolic Blood Pressure NBP 114 1 LAURENT MYERS MD [address] [place] [address] 05-14-2022 09:18-0400 Diastolic Blood Pressure NBP 39 1 LAURENT MYERS MD [address] [place] [address] 05-14-2022 09:18-0400 Heart rate 70 /min LAURENT MYERS MD [facility] 05-14-2022 09:18-0400 Mean blood pressure 58 mm[Hg] LAURENT MYERS MD [facility] 05-14-2022 09:18-0400 Systolic Blood Pressure NBP 118 1 LAURENT MYERS MD [facility] 05-14-2022 09:03-0400 Diastolic Blood Pressure NBP 45 1 LAURENT MYERS MD [facility] 05-14-2022 09:03-0400 Mean blood pressure 63 mm[Hg] LAURENT MYERS MD [address] [place] [address] 05-14-2022 09:03-0400 Systolic Blood Pressure NBP 131 1 LAURENT MYERS MD [address] [place] [address] 05-14-2022 08:32-0400 Body temperature 96.8 [degF] LAURENT MYERS MD [address] [place] [address] 05-14-2022 08:15-0400 Body temperature 96.8 [degF] LAURENT MYERS MD [facility] 05-14-2022 08:10-0400 Body temperature 96.91 [degF] LAURENT MYERS MD [facility] 05-14-2022 08:05-0400 Body temperature 97.02 [degF] LAURENT MYERS MD [facility] 05-14-2022 07:02-0400 Body height 182.9 cm LAURENT MYERS MD [address] [place] [address] 05-14-2022 07:02-0400 Body temperature 96.62 [degF] LAURENT MYERS MD [facility] 05-14-2022 07:02-0400 Body weight 159.7 kg LAURENT MYERS MD [facility] 05-14-2022 07:02-0400 Mean blood pressure 95 mm[Hg] LAURENT MYERS MD [facility] 05-13-2022 08:51-0400 diastolic 68 mm[Hg] LAURENT MYERS MD [facility] 05-13-2022 08:51-0400 systolic 133 mm[Hg] LAURENT MYERS MD [facility] 05-13-2022 08:16-0400 Body height 182.9 cm LAURENT MYERS MD [facility] 05-13-2022 08:16-0400 Body temperature 97.7 [degF] LAURENT MYERS MD [facility] 05-13-2022 08:16-0400 Body weight 162.6 kg LAURENT MYERS MD [facility] 05-13-2022 08:16-0400 diastolic 85 mm[Hg] LAURENT MYERS MD [facility] 05-13-2022 08:16-0400 Heart rate 78 /min LAURENT MYERS MD [facility] 05-13-2022 08:16-0400 systolic 164 mm[Hg] LAURENT MYERS MD [facility] 02-22-2022 11:55-0400 Body weight 163.29 kg Nithin Acevedo MD Work Phone: [facility] Encounters Encounter Date Encounter Type Care Provider Facility Start: 09-17-2025 ambulatory [facility] Facility:[facility] Start: 09-06-2025 End: 09-06-2025 ambulatory Nithin Acevedo Facility:[facility] Start: 08-09-2025 End: 08-09-2025 ambulatory NITHIN ESCOBEDO ACEVEDO [facility] Start: 08-03-2025 End: 08-03-2025 Telephone encounter Nithin Acevedo MD Work Phone: [facility] [place] Comment on above: Insurance Authorizat ion Start: 08-02-2025 End: 08-02-2025 Telephone encounter Nithin Acevedo MD Work Phone: [facility] [place] Comment on above: FYI- [facility] Nurse PO C wound care FYI-No Action Needed Start: 08-02-2025 End: 08-02-[address] Nithin Acevedo MD Work Phone: -[facility] Start: 08-02-2025 End: 08-02-[address] Nithin Acevedo MD -[facility] Start: 08-02-2025 End: 08-02-2025 ambulatory Nithin Acevedo Facility:[facility] Start: 07-28-2025 End: 07-28-2025 Telephone encounter Nithin Acevedo MD Work Phone: [facility] [place] Start: 07-27-2025 End: 07-28-2025 Telephone encounter Nithin Acevedo MD Work Phone: [facility] [place] Comment on above: Home Care Management Start: 07-26-2025 End: 07-26-2025 Patient encounter procedure Nithin Acevedo MD Work Phone: [facility] [place] Comment on above: Chronic diastolic CH F (congestive heart failure) (HCC) (Primary Dx); Encounter for immunization; CKD (chronic kidney disease) stage 4, GFR 15-29 ml/min ([facility]); Anemia due to stage 4 chronic kidney disease ([facility]); Type 2 diabetes mellitus with neurological manifestations, controlled ([facility]); Atrial fibrillation, unspecified type ([facility]); Morbid obesity with BMI of 45.0-49.9, adult ([facility]); Hyperlipidemia, unspecified hyperlipidemia type; Thrombocytopenia; Venous stasis ulcer of other part of left lower leg limited to breakdown of skin without varicose veins ([facility]); Pressure injury of left buttock, stage 1 Start: 07-26-2025 End: 07-26-2025 ambulatory NITHIN ACEVEDO Facility:[facility] Start: 07-25-2025 End: 07-28-2025 Refill Nithin Acevedo MD Work Phone: [facility] [place] Comment on above: Refill Request Orders Start: 07-23-2025 Non-patient / Non-visit Dr. Nathaniel drew MD -[facility] Work Phone: Start: 07-22-2025 Non-patient / Non-visit Dr. Nathaniel drew MD -[facility] Work Phone: Start: 07-21-2025 ambulatory Nithin Acevedo Facili ty:[facility] Start: 07-21-2025 Non-patient / Non-visit Dr. Misty Mock MD -[facility] Start: 07-21-2025 Non-patient / Non-visit [facility] Work Phone: Start: 07-21-2025 ambulatory Nathaniel Beverly Facility:[facility] Start: 07-21-2025 End: 07-23-2025 Evaluation and management of inpatient Dr. Nathaniel Beverly MD -[facility] Work Phone: Start: 07-01-2025 End: 07-02-2025 Refill Nithin Acevedo MD Work Phone: [facility] [place] Comment on above: Refill Request Start: 05-21-2025 End: 05-30-2025 Refill Gisell Cassidy PLANNING DIRECTOR.FIRST AID TEACHER Work Phone: Pulmonary Medicine Comment on above: Refill Request Start: 05-10-2025 End: 05-10-2025 ambulatory HARMAN ESCOBEDO [facility] Start: 04-01-2025 End: 04-01-2025 Office outpatient visit 25 minutes Gisell Cassidy PLANNING DIRECTOR.FIRST AID TEACHER Work Phone: Pulmonary Medicine Comment on above: Abnormal chest CT (P rimary Dx); Pneumonia of left lower lobe due to infectious organism Start: 04-01-2025 End: 04-01-2025 ambulatory NITHIN ACEVEDO Facility:[facility] Start: 04-01-2025 End: 04-01-2025 Subsequent hospital visit by physician Shellie [facility] (I-Stat) Work Phone: Cat Scan Comment on above: Pneumonia of both lo wer lobes due to infectious organism [J18.9] Start: 03-07-2025 End: 03-07-2025 Patient encounter procedure Katherin Mckinnon PLANNING DIRECTOR.FIRST AID TEACHER Work Phone: [facility] [place] Comment on above: Jaw pain (Primary Dx ); Atrial fibrillation, unspecified type (HCC); Type 2 diabetes mellitus with neurological manifestations, controlled (HCC); Essential hypertension Start: 03-07-2025 End: 03-07-2025 ambulatory NITHIN ACEVEDO Facility:[facility] Start: 02-18-2025 End: 02-18-2025 Telephone encounter Kristin Guevara MD Work Phone: Endocrine Surgery Start: 02-17-2025 End: 02-18-2025 Telephone encounter Jodie Bowers APRN.CNP Work Phone: Pre Anesthesia Comment on above: Pulmonary Optimizati on Start: 02-15-2025 End: 02-15-2025 Telephone encounter Cristy Camargo RN Pre Anesthesia Start: 02-15-2025 Encounter for other preprocedural examination NITHIN ACEVEDO [facility] Start: 02-15-2025 End: 02-15-2025 Admission to establishment Pac [place] 1 Work Phone: Pre Anesthesia Start: 02-15-2025 End: 02-15-2025 ambulatory NITHIN Kumar JULIÁN Facility:[facility] Start: 02-15-2025 End: 02-15-2025 Anesthesia consultation Pac [place] 1 Work Phone: Pre Anesthesia Comment on above: Pre-operative examin ation (Primary Dx); Chronic diastolic CHF (congestive heart failure) ([facility]); Type 2 diabetes mellitus with neurological manifestations, controlled ([facility]); VHD (valvular heart disease); Atherosclerosis of [place] coronary artery of [place] heart without angina pectoris; Atrial fibrillation, unspecified type ([facility]); RBBB (right bundle branch block); Essential hypertension; Hyperlipidemia, unspecified hyperlipidemia type; HELDER on CPAP; CKD (chronic kidney disease) stage 4, GFR 15-29 ml/min ([facility]); Abnormal chest CT; MGUS (monoclonal gammopathy of unknown significance); Anemia, unspecified type; BPH with obstruction/lower urinary tract symptoms Start: 02-15-2025 End: 02-15-2025 Preprocedural examination done Pac [place] 1 Work Phone: [facility] Work Phone: Start: 02-03-2025 End: 02-15-2025 Admission to same day surgery center Cristy Camargo RN Pre Anesthesia Comment on above: Preparations For Becky gracia (PAC) Start: 02-03-2025 End: 02-15-2025 ambulatory Cristy Camargo RN Pre Anesthesia Start: 01-24-2025 End: 01-24-2025 Telephone encounter Viet Lee MD Work Phone: Pulmonary Medicine Comment on above: Patient Update Start: 01-21-2025 End: 01-21-2025 Patient encounter procedure Pulm Lab [facility] Work Phone: PULM LAB [facility] Comment on above: Abnormal chest CT (P rimary Dx); Current use of intermediate anticoagulation; Morbid obesity (HCC); Stage 4 chronic kidney disease (HCC); MGUS (monoclonal gammopathy of unknown significance) Start: 01-21-2025 End: 01-21-2025 ambulatory Pulm Lab [facility] Work Phone: [facility] [...] Start: 01-04-2025 End: 01-04-2025 ambulatory CORTNEY ACEVEDO Facility:[facility] Start: 01-04-2025 End: 01-04-2025 Subsequent hospital visit by physician [facility] Work Phone: Molecular Imaging Comment on above: Hyperparathyroidism (HCC) [E21.3] Start: 01-04-2025 End: 01-04-2025 ambulatory CORTNEY ACEVEDO Facility:[facility] Start: 01-04-2025 End: 01-04-2025 ambulatory CORTNEY ACEVEDO Facility:[facility] Start: 01-04-2025 End: 01-04-2025 Subsequent hospital visit by physician [facility] Start: 01-03-2025 End: 03-05-2025 Follow-up encounter Nithin Acevedo MD Work Phone: [facility] [place] Comment on above: Results - Ct Start: 12-31-2024 End: 03-02-2025 Orders Only Christal Palomares PLANNING DIRECTOR.FIRST AID TEACHER Work Phone: Kidney [facility] Comment on above: Elevated serum creat inine (Primary Dx) Start: 12-30-2024 End: 12-30-2024 Subsequent hospital visit by physician [facility] (I-Stat) Work Phone: Cat Scan Comment on above: Hypercalcemia [E83.5 2] Start: 12-30-2024 End: 12-30-2024 ambulatory NITHIN ACEVEDO Facility:[facility] Start: 12-16-2024 End: 12-16-2024 Chart abstracting Christal Palomares APRN.FIRST AID TEACHER Work Phone: [facility] Start: 12-14-2024 End: 12-14-2024 Orders Only [...] Start: 12-09-2024 End: 12-09-2024 ambulatory HARMAN ESCOBEDO [facility] Start: 12-01-2024 End: 12-01-2024 Telephone encounter Kristin Guevara MD Work Phone: Endocrine Surgery Comment on above: Consult (FACE SHEET) Start: 11-26-2024 End: 11-26-2024 Patient encounter procedure Nithin Acevedo MD Work Phone: [facility] [place] Comment on above: HELDER on CPAP (Primary Dx); Chronic diastolic CHF (congestive heart failure) (HCC); Type 2 diabetes mellitus with neurological manifestations, controlled (HCC) Start: 11-26-2024 End: 11-26-2024 ambulatory NITHIN ACEVEDO Facility:[facility] Start: 11-23-2024 End: 12-01-2024 Telephone encounter Nithin Acevedo MD Work Phone: [facility] [place] Comment on above: CPAP problem Patient Question Start: 11-08-2024 End: 11-08-2024 Orders Only Christal Palomares PLANNING DIRECTOR.FIRST AID TEACHER Work Phone: Kidney Medicine Comment on above: Elevated serum creat inine (Primary Dx) Start: 11-05-2024 End: 11-05-2024 Patient encounter procedure Katherin Mckinnon PLANNING DIRECTOR.FIRST AID TEACHER Work Phone: [facility] [place] Comment on above: Medicare annual well ness visit, subsequent (Primary Dx); Candidal intertrigo; Type 2 diabetes mellitus with neurological manifestations, controlled (HCC); Essential hypertension; CKD (chronic kidney disease) stage 4, GFR 15-29 ml/min (HCC); Screening for depression; Encounter for screening examination for other mental health and behavioral disorders Start: 11-05-2024 End: 11-08-2024 ambulatory Otf Funk RN Kidney Medicine [facility] Comment on above: Added to OTP Start: 11-05-2024 End: 11-05-2024 Subsequent hospital visit by physician [facility] Work Phone: Radiology Comment on above: 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, I12.9, N18.4] Start: 10-27-2024 End: 10-27-2024 Telephone encounter Poppy [facility] Comment on above: 2024 pt assistance a pplication Start: 10-22-2024 End: 10-22-2024 ambulatory NITHIN ACEVEDO Facility:[facility] Start: 09-27-2024 End: 09-27-2024 Telephone encounter Kristin Guevara MD Work Phone: Endocrine Surgery Comment on above: Appointment (Consult ) Start: 09-02-2024 End: 09-02-2024 Orders Only Velia Richter DO Work Phone: [facility] Comment on above: 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) Start: 09-01-2024 End: 09-06-2024 ambulatory Velia Richter DO Work Phone: [facility] Start: 09-01-2024 End: 09-01-2024 Patient encounter procedure Velia Richter DO Work Phone: [facility] Comment on above: 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); 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); Non-nephrotic range proteinuria; Mixed hyperlipidemia Start: 08-19-2024 End: 08-19-2024 Refill Nithin Acevedo MD Work Phone: [facility] [place] Comment on above: Refill Request Start: 08-13-2024 End: 08-13-2024 Telephone encounter Nithin Acevedo MD Work Phone: [facility] [place] Comment on above: patient assistance m eds Start: 08-10-2024 End: 08-10-2024 Telephone encounter Katherin Mckinnon APRN.FIRST AID TEACHER Work Phone: [facility] [place] Start: 08-03-2024 End: 08-03-2024 Telephone encounter Nithin Acevedo MD Work Phone: [facility] [place] Comment on above: rec'd tresiba and oz empic from singh [facility] Start: 07-28-2024 End: 07-28-2024 Patient encounter procedure Katherin Mckinnon APRN.FIRST AID TEACHER Work Phone: Internal Medicine [place] Comment on above: Type 2 diabetes lilian itus with neurological manifestations, controlled (HCC) (Primary Dx); CKD (chronic kidney disease) stage 4, GFR 15-29 ml/min (HCC); Chronic diastolic CHF (congestive heart failure) (HCC); Essential hypertension; Atrial fibrillation, unspecified type (HCC); Morbid obesity (HCC); Encounter for immunization Start: 07-23-2024 End: 07-26-2024 Refill Nithin Acevedo MD Work Phone: [facility] [place] Comment on above: Refill Request Start: 05-13-2024 [...] Nithin youngblood MD Work Phone: [facility] [place] Comment on above: Refill Request Start: 03-27-2024 End: 03-27-2024 Emergency department patient visit [facility] Work Phone: Start: 03-27-2024 End: 03-27-2024 Patient encounter procedure Sujata Begum APRN.FIRST AID TEACHER Work Phone: [facility] Comment on above: Skin infection (Prim ananda Dx) Start: 02-04-2024 Telephone encounter Nithin gonzáles MD Work Phone: [facility] [place] Comment on above: rec'd novolog flexpe n from [employer] Start: 01-22-2024 Telephone encounter Nithin gonzáles MD Work Phone: [facility] [place] Comment on above: rec'd tresiba and oz empic from [employer] Start: 01-21-2024 Telephone encounter Poppy QUINTANILLA Navigation Start: 01-15-2024 Telephone encounter Nithin gonzáles MD Work Phone: [facility] [place] Comment on above: approval from [employer] for 2023 Start: 11-05-2023 Telephone encounter Poppy QUINTANILLA Navigation Start: 10-20-2023 Telephone encounter Poppy QUINTANILLA Navigation Start: 10-16-2023 Telephone encounter Nithin gonzáles MD Work Phone: [facility] [place] Comment on above: [facility]'d [facility] Start: 10-13-2023 End: 10-13-2023 Patient encounter procedure Katherin Amezcua APRN.FIRST AID TEACHER Work Phone: [facility] [place] Comment on above: Medicare annual well ness visit, subsequent (Primary Dx); Type 2 diabetes mellitus with neurological manifestations, controlled (HCC); CKD (chronic kidney disease) stage 4, GFR 15-29 ml/min (HCC); Morbid obesity (HCC); Anemia, unspecified type; Hyperlipidemia, unspecified hyperlipidemia type; Essential hypertension; Encounter for immunization Start: 07-11-2023 Telephone encounter Nithin gonzáles MD Work Phone: [facility] [place] Comment on above: ozempic from [employer]h [employer] Start: 06-10-2023 Telephone encounter Nithin gonzáles MD Work Phone: [facility] [place] Comment on above: tresiba rec'd from n [employer] Start: 05-22-2023 Telephone encounter Nithin gonzáles MD Work Phone: [facility] [place] Comment on above: pt assistance from [employer] Start: 05-19-2023 Telephone encounter Nithin gonzáles MD Work Phone: [facility] [place] Comment on above: License Placard Start: 05-07-2023 Telephone encounter Nithin gonzáles MD Work Phone: [facility] [place] Comment on above: reorder for tresebia from [employer] Start: 04-22-2023 Refill Nithin youngblood MD Work Phone: [address] [place] [address] Comment on above: Refill Request Start: 02-12-2023 Telephone encounter Nithin gonzáles MD Work Phone: [facility] [place] Comment on above: rec'd nolovog from n [employer] Start: 02-07-2023 Telephone encounter Nithin gonzáles MD Work Phone: [facility] [place] Comment on above: Medication Update (p atient assistance meds- insulin) Start: 01-16-2023 Telephone encounter Nithin gonzáles MD Work Phone: [facility] [place] Comment on above: tresiba is needed fr drug company. Start: 01-08-2023 Telephone encounter Nithin gonzáles MD Work Phone: [facility] [place] Comment on above: pt assitance medicin e (Ozempic from [facility] [employer]) Start: 12-09-2022 Telephone encounter Nithin gonzáles MD Work Phone: [facility] [place] Comment on above: Forms Start: 11-28-2022 Telephone encounter Irma Rocha emelia [facility] Work Phone: [facility] Comment on above: Forms ([employer] 202 3 PAP renewal - Tresiba, Novolog, Ozempic) Start: 11-01-2022 Telephone encounter Nithin gonzáles MD Work Phone: [facility] [place] Comment on above: Patient Assistance Start: 10-25-2022 Telephone encounter Nithin gonzáles MD Work Phone: [facility] [place] Comment on above: Medication Problem Start: 10-03-2022 Telephone encounter Nithin gonzáles MD Work Phone: [facility] [place] Comment on above: Medication Question Start: 08-28-2022 Telephone encounter Nithin gonzáles MD Work Phone: [facility] [place] Comment on above: pt assistance rec'd from [employer] [employer] Start: 08-20-2022 End: 08-20-2022 ambulatory Adriana Garrison [facility] Work Phone: [facility] Comment on above: 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 NITHIN BROWNING MD. Facility:A Start: 07-02-2022 End: 07-07-2022 Evaluation and management of inpatient DR. NITHIN ACEVEDO MD. Facility:A Start: 07-02-2022 End: 07-07-2022 Evaluation and management of inpatient LAURENT MYERS MD [facility] Start: 07-01-2022 End: 07-02-[address] NITHIN ACEVEDO MD. Facility:A Start: 07-01-2022 End: 07-01-2022 Patient encounter procedure RICHARD JIMENEZ PA-C [facility] Start: 06-26-2022 End: 06-27-[address] NITHIN ACEVEDO MD. 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, controlled ([facility]) Start: 06-25-2022 End: 06-25-2022 Telemedicine consultation with patient Adriana Garrison [facility] Work Phone: [facility] [place] Start: 06-12-2022 End: 06-12-2022 Patient encounter procedure Nithin Acevedo MD Work Phone: [facility] [place] Comment on above: Encounter for routin e adult medical examination (Primary Dx); Atrial fibrillation, unspecified type (HCC); Type 2 diabetes mellitus with neurological manifestations, controlled ([facility]); Essential hypertension; Atherosclerosis of [place] coronary artery of [place] heart without angina pectoris; Obesity, Class III, BMI 40-49.9 (morbid obesity) ([facility]); CKD (chronic kidney disease) stage 4, GFR 15-29 ml/min ([facility]); Chronic diastolic CHF (congestive heart failure) ([facility]); Recurrent epistaxis; Wound of left lower extremity, sequela Start: 06-12-2022 End: 06-12-2022 Patient encounter status Nithin Acevedo MD Work Phone: [facility] [place] Start: 05-29-2022 Telephone encounter Nithin gonzáles MD Work Phone: [facility] [place] Comment on above: Medication Question Start: 05-23-2022 Telephone encounter Nithin gonzáles MD Work Phone: [facility] [place] Comment on above: rec'd one box of nov olog flex pen from [employer] Start: 05-17-2022 Telephone encounter Nithin gonzáles MD Work Phone: [facility] [place] Comment on above: Patient update/liana rn Start: 05-17-[address] NITHIN BROWNING MD. Facility:A Start: 05-14-2022 End: 05-15-2022 ambulatory LAURENT MYERS MD Facility:A Start: 05-14-2022 End: 05-15-2022 Observation LAURENT MYERS MD [facility] Start: 05-13-2022 End: 05-14-[address] NITHIN ACEVEDO MD. 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, controlled ([facility]) (Primary Dx) Start: 05-07-2022 End: 05-07-2022 Telemedicine [...] Nithin gonzáles MD Work Phone: [facility] [place] Comment on above: Lab Orders Start: 04-02-2022 [...] Nithin gonzáles MD Work Phone: [facility] [place] Comment on above: pt assistance medici ne [...] 10-30-2020 Subsequent hospital visit by physician Xr [facility] [place] Work Phone: Radiology Comment on above: Groin pain, left [R1 0.32] Start: 08-17-2018 [facility] Facility :[facility] Start: 04-02-2018 End: 04-02-2018 [facility] Facility:[facility] Start: 02-19-2018 End: 02-19-2018 [facility] Facility:[facility] Start: 12-15-2017 End: 12-15-2017 [facility] Facility:[facility] Procedures Date Procedure Procedure Detail Performing Clinician [...] thorax w/o contra st material Homer Carpio PLANNING DIRECTOR.FIRST AID TEACHER, PhD Work Phone: Start: 11-05-2024 Adult depression scr eening assessment Katherin Michelle PLANNING DIRECTOR.FIRST AID TEACHER Work Phone: Start: 09-01-2024 Immunofixj electroph oresis other fluids Velia Richter DO Work Phone: Start: 09-01-2024 Urine albumin quantitative Velia Richter DO Work Phone: Start: 03-27-2024 Radiography of foot Start: 10-13-2023 Hemoglobin A1c/Hemoglobin.total in Blood Katherin Older PLANNING DIRECTOR.FIRST AID TEACHER Work Phone: Start: 10-13-2023 INFLUENZA VACCINE, P RSV FREE, AGE 65+ YR, HIGH DOSE, QUADRIVALENT (FLUZONE HIGH-DOSE) Katherin Older PLANNING DIRECTOR.FIRST AID TEACHER Work Phone: Start: 06-12-2022 Hemoglobin A1c/Hemoglobin.total in [...] left Start: 09-18-2007 Coronary artery bypass graft ALURENT MYERS MD Start: 11-17-1991 Repair of inguinal hernia LAURENT MYERS MD Comment on above: left Start: 11-17-1978 Anal fissurectomy SHAYLEE MYERS MD Bilateral inguinal h ernia repair LAURENT MYERS MD Hemorrhoidectomy LAURENT MYERS MD Tonsillectomy LAURENT MYERS MD Plan of Treatment Date Care Activity Detail Author Start: 03-27-2034 Urine microalbumin profile DTaP,Tdap,Td Vaccine (3 - Td or Tdap) [facility] Start: 04-20-2032 Urine microalbumin profile [facility] Start: 11-14-2025 End: 11-14-2025 Patient encounter procedure 11/14/2025 1:40 PM EST Office Visit [facility] [place] [address] [place], [place] [address] Nithin Acevedo MD [address] [place], [place] [id number] Annual Medicare Wellness w/3 month follow-up [facility] [place] Comment on above: Annual Medicare Wellness w/3 month follo w-up Start: 11-05-2025 Anxiety Screening Anxiety Screening [facility] Start: 11-05-2025 Covid-19 Vaccine () Covid-19 Vaccine () [facility] Comment on above: Postponed from 07/18/2024 (Declined at t his time) Start: 11-05-2025 Depression Screening Depression Screening [facility] Start: 11-05-2025 RSV Vaccine (1 - 1-dose 75+ series) RSV Vaccine (1 - 1-dose 75+ series) [facility] Comment on above: Postponed from 2011 (Declined at t his time) Start: 11-05-2025 Shingrix Vaccine (2 of 3) Shingrix Vaccine (2 of 3) [facility] Comment on above: Postponed from 12/09/2012 (Declined at t his time) Start: 09-18-2025 Diabetic foot examination Diabetic Foot Exam [facility] Start: 08-31-2025 Glaucoma screening Dilated Retinal Exam [facility] Start: 08-17-2025 Hemoglobin A[facility]c [facility] Start: 08-02-2025 End: 11-01-2025 Basic metabolic 2000 panel - Serum or Plasma BASIC METABOLIC PANEL Lab Routine Chronic diastolic CHF (congestive heart failure) ([facility]) CKD (chronic kidney disease) stage 4, GFR 15-29 ml/min ([facility]) Expected: 08/02/2025, Expires: 11/01/2025 [facility] Comment on above: Expected: 08/02/2025, Expires: Start: 08-02-2025 End: 11-01-2025 CBC panel - Blood by Automated count COMPLETE BLOOD COUNT Lab Routine 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) Expected: 08/02/2025, Expires: 11/01/2025 [facility] Work Phone: Comment on above: Expected: 08/02/2025, Expires: Start: 08-02-2025 End: 11-01-2025 Hemoglobin A1c in Blood HEMOGLOBIN A1C Lab Routine Type 2 diabetes mellitus with neurological manifestations, controlled ([facility]) Expected: 08/02/2025, Expires: 11/01/2025 [facility] Comment on above: Expected: 08/02/2025, Expires: Start: 08-02-2025 End: 11-01-2025 Lipid 1996 panel - Serum or Plasma LIPID PANEL, FASTING Lab Routine Hyperlipidemia, unspecified hyperlipidemia type Expected: 08/02/2025, Expires: 11/01/2025 [facility] Comment on above: Expected: 08/02/2025, Expires: Start: 07-26-2025 End: 07-26-2025 Patient encounter procedure 07/26/2025 12:00 PM EDT Office Visit [facility] [place] [address] [place] [address] Nithin Acevedo MD [address] [place] [address] [facility] 07/21-07/23 fluid in lungs and legs [facility] [place] Comment on above: [facility] fluid in lungs and legs Start: 07-23-2025 Patient discharge [facility] Start: 07-22-2025 [facility] Start: 07-22-2025 Referral to [facility] Start: 07-22-2025 Referral for physical therapy [facility] Start: 07-22-2025 Referral to service [facility] Start: 07-22-2025 Referral to occupational therapist [facility] Start: 07-21-2025 Ambulation without limitation [facility] Start: 07-21-2025 Assessment of risk of venous thromboembolism [facility] Start: 07-21-2025 Care regimes management [facility] Start: 07-21-2025 Catheterization of vein [facility] Start: 07-21-2025 Elevation of affected extremity [facility] Start: 07-21-2025 Inhalation therapy procedure [facility] Start: 07-21-2025 Insertion of catheter into peripheral vein [facility] Start: 07-21-2025 Measuring intake and output [facility] Start: 07-21-2025 Notification of physician [facility] Start: 07-21-2025 Oxygen therapy [facility] Start: 07-21-2025 Patient education [facility] Start: 07-21-2025 Patient referral to dietitian [facility] Start: 07-21-2025 Providing care according to standard [facility] Start: 07-21-2025 Provision of activity privileges [facility] Start: 07-21-2025 End: 07-21-2025 [facility] Start: 07-21-2025 Following clinical pathway protocol [facility] Start: 07-21-2025 Reticulocyte count [facility] Start: 07-21-2025 Vitamin B12 measurement [facility] Start: 07-21-2025 Complete ultrasound of kidneys and bladder Kidney and Bladder [facility] Start: 07-21-2025 Hospital admission, emergency, from emergency room, medical nature [facility] Start: 07-21-2025 Verification routine [facility] Start: 07-21-2025 Admission procedure [facility] Start: 07-21-2025 [facility] Start: 07-21-2025 Consultation [facility] Start: 07-21-2025 Patient referral to dietitian [facility] Start: 07-20-2025 End: 07-20-2025 ambulatory 07/20/2025 3:30 PM EDT [facility] Hematology/Oncology [address] [place] [address] Homer Carpio APRN.FIRST AID TEACHER, PhD [address] [place] [address] [facility] Comment on above: VIRTUAL Start: 07-18-2025 Influenza vaccination Influenza Vaccine (#1) [facility] Start: 07-07-2025 End: 07-07-2025 ambulatory 07/07/2025 12:15 PM EDT Results Only [facility] [address] [facility] [place] [id number] LABS [facility] Comment on above: LABS Start: 07-07-2025 End: 07-07-2025 Patient encounter procedure 07/07/2025 11:20 AM EDT Office Visit [facility] [place] [address] [place] [id number] Nithin Acevedo MD [address] [place] [address] 4 Month follow up [facility] [place] Comment on above: 4 Month follow up Start: 07-05-2025 End: 07-05-2025 Patient encounter procedure Pulmonary Medicine Comment on above: 3 MTH F/U REVIEW CT Start: 07-05-2025 End: 07-05-2025 Patient encounter procedure 07/05/2025 9:20 AM EDT Appointment Cat Scan [address] [place] [address] CT CHEST Cat Scan Comment on above: CT CHEST Start: 07-02-2025 End: 05-01-2026 CT Chest WO contrast CT CHEST WO IVCON Radiology Routine Abnormal chest CT Pneumonia of left lower lobe due to infectious organism Expected: 07/02/2025 (Approximate), Expires: 05/01/2026 [facility] Work Phone: Comment on above: Expected: 07/02/2025 (Approximate), Expi res: 05/01/2026 Start: 06-21-2025 End: 09-20-2025 MONOCLONAL PROTEIN, SERUM (BLOOD) MONOCLONAL PROTEIN, SERUM (BLOOD) Lab Routine MGUS (monoclonal gammopathy of unknown significance) Expected: 06/21/2025 (Approximate), Expires: 09/20/2025 [facility] Comment on above: Expected: 06/21/2025 (Approximate), Expi res: 09/20/2025 Start: 06-20-2025 End: 09-19-2025 CBC W Auto Differential panel - Blood COMPLETE BLOOD COUNT AND DIFFERENTIAL Lab Routine MGUS (monoclonal gammopathy of unknown significance) Expected: 06/20/2025 (Approximate), Expires: 09/19/2025 [facility] Comment on above: Expected: 06/20/2025 (Approximate), Expi res: 09/19/2025 Start: 06-20-2025 End: 09-19-2025 Comprehensive metabolic 2000 panel - Serum or Plasma COMPREHENSIVE METABOLIC PANEL Lab Routine MGUS (monoclonal gammopathy of unknown significance) Expected: 06/20/2025 (Approximate), Expires: 09/19/2025 [facility] Comment on above: Expected: 06/20/2025 (Approximate), Expi res: 09/19/2025 Start: 06-20-2025 End: 09-19-2025 MONOCLONAL PROT UR W/INTERP MONOCLONAL PROT UR W/INTERP Lab Routine MGUS (monoclonal gammopathy of unknown significance) Expected: 06/20/2025 (Approximate), Expires: 09/19/2025 [facility] Comment on above: Expected: 06/20/2025 (Approximate), Expi res: 09/19/2025 Start: 06-20-2025 End: 09-19-2025 PROTEIN ELECT RND UR W/INTERP PROTEIN ELECT RND UR W/INTERP Lab Routine MGUS (monoclonal gammopathy of unknown significance) Expected: 06/20/2025 (Approximate), Expires: 09/19/2025 [facility] Comment on above: Expected: 06/20/2025 (Approximate), Expi res: 09/19/2025 Start: 06-20-2025 End: 09-19-2025 PROTEIN ELECTROPHORESIS SERUM W/INTERP PROTEIN ELECTROPHORESIS SERUM W/INTERP Lab Routine MGUS (monoclonal gammopathy of unknown significance) Expected: 06/20/2025 (Approximate), Expires: 09/19/2025 [facility] Comment on above: Expected: 06/20/2025 (Approximate), Expi res: 09/19/2025 Start: 04-05-2025 End: 04-05-2025 Admission to same day surgery center 04/05/2025 9:00 AM EDT [facility] Endocrine Surgery [address] [place] [address] Kristin Guevara MD [address] [place] [id number] post op Endocrine Surgery Comment on above: post op Start: 04-01-2025 End: 07-01-2025 Bacteria identified in Unspecified specimen by Respiratory culture BACTERIAL CULTURE AND GRAM STAIN, RESPIRATORY, SPUTUM AND TRACHEAL ASPIRATE Microbiology Routine Pneumonia of left lower lobe due to infectious organism Expected: 04/01/2025, Expires: 07/01/2025 [facility] Comment on above: Expected: 04/01/2025, Expires: Start: 04-01-2025 End: 04-01-2025 Patient encounter procedure 04/01/2025 11:00 AM EDT Office Visit Pulmonary Medicine [address] [place] [address] Gisell Cassidy APRN.FIRST AID TEACHER [address] [place] [address] 3 month f/u- Review Chest CT Pulmonary Medicine Comment on above: 3 month f/u- Review Chest CT Start: 03-28-2025 End: 02-23-2026 CT Chest WO contrast CT CHEST WO IVCON Radiology Routine Pneumonia of both lower lobes due to infectious organism Expected: 03/28/2025, Expires: 02/23/2026 [facility] Work Phone: Comment on above: Expected: 03/28/2025, Expires: Start: 03-11-2025 End: 03-11-2025 Admission to same day surgery center 03/11/2025 7:30 AM EDT - 03/11/2025 9:15 AM EDT Surgery [facility] Surgery [address] [place], [place] [id number] Kristin Guevara MD [address] [place] [address] PARATHYROIDECTOMY [facility] Surgery Comment on above: PARATHYROIDECTOMY Start: 03-11-2025 End: 03-11-2025 Parathyroidectomy/explorati on parathyroids PARATHYROIDECTOMY Primary hyperparathyroidism (HCC) 03/11/2025 7:30 AM EDT MM OR Start: 03-11-2025 Subsequent hospital visit by physician 03/11/2025 7:30 AM EDT Hospital Encounter [facility] Surgery [address] [place] [address] Kristin Guevara MD [address] [place] [address] Primary hyperparathyroidism (HCC) [E21.0] [facility] Surgery Comment on above: Primary hyperparathyroidism (HCC) [E21.0 ] Start: 03-07-2025 End: 03-07-2025 Patient encounter procedure 03/07/2025 11:00 AM EDT Office Visit [facility] [place] [address] [place] [address] Katherin Mckinnon, PLANNING DIRECTOR.FIRST AID TEACHER [address] [place] [address] 4 MONTH FOLLOW UP [facility] [place] Comment on above: 4 MONTH FOLLOW UP Start: 02-03-2025 Hepatitis B surface antibody level LDL Cholesterol [facility] Start: 01-28-2025 End: 04-29-2025 Renal function 2000 panel - Serum or Plasma RENAL FUNCTION PANEL Lab Routine Elevated serum creatinine Expected: 01/28/2025, Expires: 04/29/2025 [facility] Work Phone: Comment on above: Expected: 01/28/2025, Expires: Start: 01-25-2025 Hemoglobin A1c measurement HbA1C [facility] Start: 01-21-2025 End: 01-21-2025 Patient encounter procedure 01/21/2025 11:00 AM EST Office Visit Pulmonary Medicine [address] [place] [address] Viet Lee MD [address] [place] [address] Chronic cough [R05.3] Pulmonary Medicine Comment on above: Chronic cough [R05.3] Start: 01-21-2025 End: 01-21-2025 ambulatory 01/21/2025 10:30 AM EST Procedure PULM LAB [facility] [address] [place] [address] [facility], Pulm Lab [facility] [address] [place] [address] Chronic cough [R05.3] PULM LAB [facility] Comment on above: Chronic cough [R05.3] Start: 01-12-2025 End: 01-12-2026 Basic metabolic 2000 panel - Serum or Plasma BASIC METABOLIC PANEL Lab Routine Primary hyperparathyroidism (HCC) Expected: 01/12/2025, Expires: 01/12/2026 [facility] Work Phone: Comment on above: Expected: 01/12/2025, Expires: Start: 01-12-2025 End: 01-12-2026 CBC W Auto Differential panel - Blood COMPLETE BLOOD COUNT AND DIFFERENTIAL Lab Routine Primary hyperparathyroidism (HCC) Expected: 01/12/2025, Expires: 01/12/2026 [facility] Comment on above: Expected: 01/12/2025, Expires: Start: 01-04-2025 End: 01-04-2025 Patient encounter procedure 01/04/2025 2:30 PM EST Appointment Molecular Imaging [address] [place], [place] [id number] [place] PARATHYROID W SPECT/CT [facility] Comment on above: NM PARATHYROID W SPECT/CT Start: 01-04-2025 End: 01-04-2025 Patient encounter procedure 01/04/2025 10:30 AM EST Appointment Molecular Imaging [address] [place] [id number] [place] PARATHYROID W SPECT/CT [facility] Comment on above: NM PARATHYROID W SPECT/CT Start: 12-30-2024 End: 03-31-2025 Basic metabolic 2000 panel - Serum or Plasma BASIC METABOLIC PANEL Lab Routine Elevated serum creatinine Expected: 12/30/2024, Expires: 03/31/2025 [facility] Work Phone: Comment on above: Expected: 12/30/2024, Expires: Start: 12-30-2024 End: 12-30-2024 Patient encounter procedure 12/30/2024 11:40 AM EST Appointment Cat Scan [address] [place] [address] CT CHEST Cat Scan Comment on above: CT CHEST Start: 12-30-2024 End: 12-30-2024 ambulatory 12/30/2024 10:00 AM EST Results Only [facility] [address] [place] [address] [place] Start: 12-21-2024 End: 01-19-2026 CT Chest WO contrast CT CHEST WO IVCON Radiology Routine 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) Shortness of breath Expected: 12/21/2024, Expires: 01/19/2026 [facility] Comment on above: Expected: 12/21/2024, Expires: Start: 12-13-2024 End: 12-13-2024 ambulatory 12/13/2024 2:00 PM EST Visit (SP) Office Hematology/Oncology [address] [place] [address] Homer Carpio APRN.[employer] [place] [address] [place] [address] [facility] Hematology/Oncolo gy Comment on above: [facility] Start: 12-13-2024 End: 12-13-2024 Patient encounter procedure Endocrine Kelly rgery Comment on above: PTH consult INTAKE COMPLETE - PT H consult Start: 11-23-2024 End: 11-23-2024 ambulatory 11/23/2024 9:00 AM EST [facility] [address] [place] [address] Christal Palomares, PLANNING DIRECTOR.FIRST AID TEACHER [address] [place] [address] CKD Stage 4 [facility] Comment on above: CKD Stage 4 Start: 11-17-2024 Advance Directive Discussion Advance Directive Discussion [facility] Start: 11-17-2024 Medicare Advantage Annual Wellness Visit Medicare Advantage Annual Wellness Visit [facility] Start: 11-12-2024 End: 02-11-2025 Renal function 2000 panel - Serum or Plasma RENAL FUNCTION PANEL Lab Routine Elevated serum creatinine Expected: 11/12/2024 (Approximate), Expires: 02/11/2025 [facility] Work Phone: Comment on above: Expected: [...] 10:40 AM EST Office Visit Internal [facility] [place] [address] [place], [place] [address] Katherin Mckinnon, PLANNING DIRECTOR.[employer] AID TEACHER [address] [place] [address] Medicare Wellness ; routine 3m follow up [facility] [place] Comment on above: Medicare Wellness ; routine 3m follow up Start: 10-22-2024 End: 10-22-2024 ambulatory 10/22/2024 1:30 PM [facility] [address] [address] Christal Palomares, PLANNING DIRECTOR.[employer] AID TEACHER [address] [place] [address] 6 weeks vv per checkout Kidney [facility] Comment on above: 6 weeks vv per checkout Start: 10-13-2024 Covid-19 Vaccine ( season) Covid-19 Vaccine ( season) [facility] Comment on above: Postponed from 07/18/2023 (Declined at t his time) Start: 10-13-2024 Hepatitis B Vaccine (1 of 3 - Risk 3-dose series) Hepatitis B Vaccine (1 of 3 - Risk 3-dose series) [facility] Comment on above: Postponed from 1996 (Declined at t his time) Start: 10-13-2024 RSV Vaccine (1 - 1-dose 60+ series) RSV Vaccine (1 - 1-dose 60+ series) [facility] Comment on above: Postponed from 1996 (Declined at t his time) Start: 10-13-2024 RSV Vaccine (1 - 1-dose 75+ series) RSV Vaccine (1 - 1-dose 75+ series) [facility] Comment on above: Postponed from 2011 (Declined at t his time) Start: 10-13-2024 Shingrix Vaccine (2 of 3) Shingrix Vaccine (2 of 3) [facility] Comment on above: Postponed from 12/09/2012 (Declined at t his time) Start: 10-02-2024 End: 01-01-2025 Comprehensive metabolic 2000 panel - Serum or Plasma COMPREHENSIVE METABOLIC PANEL Lab Routine 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) Expected: 10/02/2024, Expires: 01/01/2025 [facility] Comment on above: Expected: 10/02/2024, Expires: Start: 09-22-2024 3 comp foot exam completed Diabetic Foot Exam [facility] Start: 09-22-2024 Diabetic foot examination Diabetic Foot Exam [facility] Start: 09-02-2024 End: 12-02-2024 25-hydroxyvitamin D3 [Mass/volume] in Serum or Plasma [facility] Work Phone: Comment on above: Expected: 09/02/2024, Expires: Start: 09-01-2024 End: 12-01-2024 Calcitriol [Mass/volume] in Serum or Plasma [facility] Comment on above: Expected: 09/01/2024, Expires: Start: 09-01-2024 End: 12-01-2024 Microalbumin/Creatinine [Mass Ratio] in Urine [facility] Comment on above: Expected: 09/01/2024, Expires: Start: 09-01-2024 End: 12-01-2024 MONOCLONAL PROT UR W/INTERP MONOCLONAL PROT UR W/INTERP Lab Routine 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 Expected: 09/01/2024, Expires: 12/01/2024 [facility] Comment on above: Expected: 09/01/2024, Expires: Start: 09-01-2024 End: 12-01-2024 MONOCLONAL PROTEIN, SERUM (BLOOD) [facility] Comment on above: Expected: 09/01/2024, Expires: Start: 09-01-2024 End: 12-01-2024 Parathyrin.intact [Mass/volume] in Serum or Plasma [facility] Comment on above: Expected: 09/01/2024, Expires: Start: 09-01-2024 End: 12-01-2024 Renal function 2000 panel - Serum or Plasma [facility] Work Phone: Comment on above: Expected: 09/01/2024, Expires: 5 Start: 09-01-2024 End: 09-01-2024 Patient encounter procedure 09/01/2024 1:00 PM EDT Office Visit Kidney [facility] [address] [id number] Velia Richter DO [address] [place] [address] 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, I12.9, N18.4] [facility] Comment on above: Type 2 DM with CKD stage 4 and hypertens ion (HCC) [E11.22, I12.9, N18.4] Start: 08-04-2024 Glaucoma screening Dilated Retinal Exam [facility] Start: 08-04-2024 Hepatitis C antibody, confirmatory test Dilated Retinal Exam [facility] Start: 07-28-2024 End: 10-27-2024 Comprehensive metabolic 2000 panel - Serum or Plasma [facility] Work Phone: Comment on above: Expected: 07/28/2024, Expires: Start: 07-28-2024 End: 10-27-2024 Hemoglobin A1c in Blood [facility] Comment on above: Expected: 07/28/2024, Expires: 4 Start: 07-28-2024 End: 07-28-2024 Patient encounter procedure 07/28/2024 11:00 AM EDT Office Visit Internal [facility] [place] [address] [place], [place] [address] Katherin Mckinnon, PLANNING DIRECTOR.[employer] AID [employer]ACHER [address] [place] [address] 6 Month follow up [facility] [place] Comment on above: 6 Month follow up Start: 07-18-2024 Covid-19 Vaccine ( season) Covid-19 Vaccine () [facility] Start: 07-18-2024 Covid-19 Vaccine () Covid-19 Vaccine () [facility] Start: 07-18-2024 Influenza vaccination Influenza Vaccine (#1) [facility] Start: 04-13-2024 End: 04-13-2024 Patient encounter procedure 04/13/2024 2:00 PM EDT Office Visit [facility] [place] [address] [place] [address] Katherin Mckinnon, PLANNING DIRECTOR.[employer] AID TEACHER [address] [place] [address] 6 month follow up [facility] [place] Comment on above: 6 month follow up Start: 04-12-2024 Hemoglobin A1c measurement HbA1C [facility] Start: 04-12-2024 Hemoglobin A1c/Hemoglobin.total in Blood HbA1C [facility] Start: 03-27-2024 [facility] Start: 03-21-2024 End: 06-20-2024 ALBUMIN/CREAT RATIO RND UR ALBUMIN/CREAT RATIO RND UR Lab Routine Type 2 diabetes mellitus with neurological manifestations, controlled (HCC) Expected: 03/21/2024, Expires: 06/20/2024 [facility] Work Phone: Comment on above: Expected: 03/21/2024, Expires: Start: 03-21-2024 End: 06-20-2024 CBC panel - Blood by Automated count CBC Lab Routine Type 2 diabetes mellitus with neurological manifestations, controlled (HCC) Expected: 03/21/2024, Expires: 06/20/2024 [facility] Work Phone: Comment on above: Expected: 03/21/2024, Expires: Start: 03-21-2024 End: 06-20-2024 Comprehensive metabolic 2000 panel - Serum or Plasma COMP METABOLIC PANEL Lab Routine Hypercalcemia Expected: 03/21/2024, Expires: 06/20/2024 [facility] Work Phone: Comment on above: Expected: 03/21/2024, Expires: Start: 03-21-2024 End: 06-20-2024 Hemoglobin A1c in Blood HGB A1C Lab Routine Type 2 diabetes mellitus with neurological manifestations, controlled (HCC) Expected: 03/21/2024, Expires: 06/20/2024 [facility] Work Phone: Comment on above: Expected: 03/21/2024, Expires: Start: 03-21-2024 End: 06-20-2024 Lipid 1996 panel - Serum or Plasma LIPID PANEL BASIC Lab Routine Hyperlipidemia, unspecified hyperlipidemia type Expected: 03/21/2024, Expires: 06/20/2024 [facility] Work Phone: Comment on above: Expected: 03/21/2024, Expires: Start: 03-21-2024 End: 06-20-2024 Parathyrin.intact [Mass/volume] in Serum or Plasma PTH INTACT BLD Lab Routine Hypercalcemia Expected: 03/21/2024, Expires: 06/20/2024 [facility] Work Phone: Comment on above: Expected: 03/21/2024, Expires: Start: 11-17-2023 Advance Directive Discussion Advance Directive Discussion [facility] Start: 11-17-2023 Behavioral Health Screening Behavioral Health Screening [facility] Start: 11-17-2023 Depression Assessment Depression Assessment [facility] Start: 11-08-2023 Hemoglobin A1c/Hemoglobin.total in Blood HBA1C [facility] Start: 07-18-2023 Influenza vaccination [facility] Start: 07-12-2023 Hepatitis C antibody, confirmatory test DILATED RETINAL EXAM [facility] Start: 06-12-2023 3 comp foot exam completed [facility] Start: 12-13-2022 End: 03-29-2023 ALBUMIN/CREAT RATIO RND UR ALBUMIN/CREAT RATIO RND UR Lab Routine Type 2 diabetes mellitus with neurological manifestations, controlled (HCC) Expected: 12/13/2022, Expires: 02/12/2023 [facility] Work Phone: Comment on above: Expected: 12/13/2022, Expires: 3 Start: 12-13-2022 End: 02-12-2023 Comprehensive metabolic 2000 panel - Serum or Plasma COMP METABOLIC PANEL Lab Routine Type 2 diabetes mellitus with neurological manifestations, controlled (HCC) Expected: 12/13/2022, Expires: 02/12/2023 [facility] Work Phone: Comment on above: Expected: 12/13/2022, Expires: 3 Start: 12-13-2022 End: 02-12-2023 Hemoglobin A1c in Blood HGB A1C Lab Routine Type 2 diabetes mellitus with neurological manifestations, controlled (HCC) Expected: 12/13/2022, Expires: 02/12/2023 [facility] Work Phone: Comment on above: Expected: 12/13/2022, Expires: 3 Start: 12-13-2022 Hemoglobin A1c/Hemoglobin.total in Blood HBA1C [facility] Start: 12-13-2022 End: 02-12-2023 Lipid 1996 panel - Serum or Plasma LIPID PANEL BASIC Lab Routine Type 2 diabetes mellitus with neurological manifestations, controlled (HCC) Expected: 12/13/2022, Expires: 02/12/2023 [facility] Work Phone: Comment on above: Expected: 12/13/2022, Expires: 3 Start: 11-17-2022 ADVANCE DIRECTIVE DISCUSSION ADVANCE DIRECTIVE DISCUSSION [facility] Start: 11-17-2022 DEPRESSION ASSESSMENT DEPRESSION ASSESSMENT [facility] Start: 11-15-2022 Hepatitis B screening URINE ALBUMIN:CREATININE RATIO [facility] Start: 11-15-2022 Hepatitis B surface antibody level LDL CHOLESTEROL [facility] Start: 07-18-2022 Influenza vaccination INFLUENZA (#1) [facility] Start: 06-25-2022 Hepatitis C antibody, confirmatory test DILATED RETINAL EXAM [facility] Start: 06-04-2022 3 comp foot exam completed DIABETIC FOOT EXAM [facility] Start: 05-24-2022 End: 07-24-2022 Hemoglobin A1c in Blood HGB A1C Lab Routine Type 2 diabetes mellitus with neurological manifestations, controlled (HCC) Expected: 05/24/2022, Expires: 07/24/2022 [facility] Work Phone: Comment on above: Expected: 05/24/2022, Expires: Start: 05-24-2022 Hemoglobin A1c/Hemoglobin.total in Blood HBA1C [facility] Start: 02-13-2022 Hemoglobin A1c/Hemoglobin.total in Blood HBA1C [facility] Start: 11-17-2021 ADVANCE DIRECTIVE DISCUSSION ADVANCE DIRECTIVE DISCUSSION [facility] Start: 11-17-2021 DEPRESSION ASSESSMENT DEPRESSION ASSESSMENT [facility] Start: 06-02-2021 COVID-19 VACCINE (3 - Booster for Moderna series) COVID-19 VACCINE (3 - Booster for Moderna series) [facility] Start: 02-28-2021 COVID-19 VACCINE (3 - Booster for Moderna series) COVID-19 VACCINE (3 - Booster for Moderna series) [facility] Start: 02-28-2021 COVID-19 VACCINE (3 - Moderna series) COVID-19 VACCINE (3 - Moderna series) [facility] Start: 12-09-2012 SHINGRIX VACCINE (2 of 3) SHINGRIX VACCINE (2 of 3) [facility] Start: 2011 RSV Vaccine (1 - 1-dose 75+ series) RSV Vaccine (1 - 1-dose 75+ series) [facility] Start: 01-04-2009 Urine microalbumin profile DTAP,TDAP,TD (1 - Tdap) [facility] Start: 1953 Anxiety Screening Anxiety Screening [facility] Start: 1953 Depression Screening Depression Screening [facility] CALCIUM, 24 HR URINE CALCIUM, 24 HR URINE Lab Routine Hypercalcemia Ordered: 12/01/2024 [facility] Comment on above: Ordered: 12/01/2024 CREATININE, 24 HOUR URINE CREATI NINE, 24 HOUR URINE Lab Routine Hypercalcemia Ordered: 12/01/2024 [facility] Work Phone: Comment on above: Ordered: 12/01/2024 CT Chest WO contrast CT CHEST WO IVCON Radiology Routine Pneumonia of both lower lobes due to infectious organism 04/01/2025 11:01 AM EDT [facility] Work Phone: End: 01-12-2026 ECG COMPLETE ECG COMPLETE ECG Routine Primary hyperparathyroidism (HCC) 1 Occurrences starting 01/12/2025 until 01/12/2026 [facility] Comment on above: 1 Occurrences starting 01/12/2025 until 01/12/2026 Iron [Mass/mass] in Unspecified specimen [facility] Iron saturation [Mas s Fraction] in Serum or Plasma [facility] Patient Education ED Cellulitis ED Dog Bi te [facility] Work Phone: Patient referral [facility] Work Phone: REFER FOR ADMIT INTERVIEW REFER FOR ADMIT INTERVIEW Procedures Routine Primary hyperparathyroidism (HCC) Ordered: 01/12/2025 [facility] Comment on above: Ordered: 01/12/2025 End: 01-13-2026 SPECT+CT Parathyroid gland NM PARATHYROID W SPECT/CT Radiology Routine Hyperparathyroidism (HCC) 1 Occurrences starting 12/14/2024 until 01/13/2026 [facility] Work Phone: Comment on above: 1 Occurrences starting 12/14/2024 until 01/13/2026 SPIROMETRY WITH DILA TOR IF OBSTRUCTED SPIROMETRY WITH DILATOR IF OBSTRUCTED PFT Routine Chronic cough 01/21/2025 10:47 AM EST [facility] Work Phone: Total iron binding c apacity measurement [facility] Troponin T.cardiac [Mass/volume] in Serum or Plasma by High sensitivity method [facility] Troponin T.cardiac [Mass/volume] in Serum or Plasma by High sensitivity method [facility] End: 10-01-2025 US Kidney - bilateral and Urinary bladder US KIDNEY/BLADDER Radiology Routine 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 1 Occurrences starting 09/01/2024 until 10/01/2025 [facility] Comment on above: 1 Occurrences starting 09/01/2024 until 10/01/2025 US Kidney - bilatera l and Urinary bladder US KIDNEY/BLADDER Radiology Routine 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 11/05/2024 10:32 AM EST [facility] Work Phone: US Thyroid gland US THYROID/PARA THYROID (POC) ENDO USE ONLY Imaging Diagnostic Routine Hypercalcemia Ordered: 12/13/2024 [facility] Work Phone: Comment on above: Ordered: 12/13/2024 End: 01-12-2026 XR Bones Complete Survey Views XR BONE SURVEY ROUTINE Radiology Routine 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) 1 Occurrences starting 12/13/2024 until 01/12/2026 [facility] Work Phone: Comment on above: 1 Occurrences starting 12/13/2024 until 01/12/2026 [facility] Immunizations Immunization Date Immunization Notes Care Provider Suresh sky 07-26-2025 influenza, high dose seasonal, preservative-free Nithin Acevedo MD Work Phone: [facility] 07-28-2024 influenza, high dose seasonal, preservative-free Katherin Michelle PLANNING DIRECTOR.FIRST AID TEACHER Work Phone: [facility] 07-28-2024 influenza virus vaccine, unspecified formulation Gisell Cassidy PLANNING DIRECTOR.FIRST AID TEACHER Work Phone: [facility] 03-27-2024 tetanus toxoid, redu robert diphtheria toxoid, and acellular pertussis vaccine, adsorbed [facility] 10-13-2023 influenza (HD-IIV4) vaccine, age 65+ yr, high dose, quadrivalent, PF (FLUZONE HIGH-DOSE) Katherin Seven PLANNING DIRECTOR.FIRST AID TEACHER Work Phone: [facility] 10-13-2023 influenza virus vaccine, unspecified formulation Nithin Acevedo MD Work Phone: [facility] 04-20-2022 tetanus toxoid, redu robert diphtheria toxoid, and acellular pertussis vaccine, adsorbed LAURENT MYERS MD [facility] 11-23-2021 influenza virus vaccine, unspecified formulation LAURENT MYERS MD [facility] 11-23-2021 influenza, high-dose , quadrivalent vaccine (FLUZONE HIGH DOSE QUADRIVALENT) Nithin Acevedo MD Work Phone: [facility] 01-03-2021 COVID-19 vaccine, fu ll dose (MODERNA) Nithin Acevedo MD Work Phone: [facility] 12-07-2020 SARS-CoV-2 (COVID-19 ) [id number] vaccine LAURENT MYERS MD [facility] 12-06-2020 COVID-19 vaccine, fu ll dose (MODERNA) Nithin Acevedo MD Work Phone: [facility] 09-22-2020 influenza virus vaccine, unspecified formulation LAURENT MYERS MD [facility] 09-22-2020 influenza, high-dose , quadrivalent vaccine (FLUZONE HIGH DOSE QUADRIVALENT) Nithin Acevedo MD Work Phone: [facility] 08-16-2019 influenza virus vaccine, unspecified formulation LAURENT MYERS MD [facility] 08-16-2019 influenza, high dose seasonal, preservative-free Nithin Acevedo MD Work Phone: [facility] Work Phone: 07-22-2018 influenza virus vaccine, unspecified formulation LAURENT MYERS MD [facility] 07-22-2018 influenza, high dose seasonal, preservative-free Nithin Acevedo MD Work Phone: [facility] Work Phone: 09-20-2017 influenza virus vaccine, unspecified formulation LAURENT MYERS MD [facility] 09-20-2017 influenza, high dose seasonal, preservative-free Nithin Acevedo MD Work Phone: [facility] Work Phone: 08-16-2016 Influenza virus vaccine [facility] 08-16-2016 influenza, seasonal, injectable Nithin Acevedo MD Work Phone: [facility] Work Phone: 08-07-2016 influenza virus vaccine, unspecified formulation LAURENT MYERS MD [facility] 08-07-2016 influenza, high dose seasonal, preservative-free Nithin Acevedo MD Work Phone: [facility] 12-05-2015 pneumococcal conjuga te vaccine, 13 valent Nithin Acevedo MD Work Phone: [facility] 09-12-2015 influenza virus vaccine, unspecified formulation LAURENT MYERS MD [facility] 09-12-2015 influenza, high dose seasonal, preservative-free Nithin Acevedo MD Work Phone: [facility] 09-23-2014 influenza virus vaccine, unspecified formulation LAURENT MYERS MD [facility] 09-23-2014 influenza, seasonal, injectable Nithin Acevedo MD Work Phone: [facility] 10-12-2013 influenza virus vaccine, unspecified formulation Nithin Acevedo MD Work Phone: [facility] 10-14-2012 zoster vaccine, live Nithin Acevedo MD Work Phone: [facility] Work Phone: 08-21-2012 influenza virus vaccine, unspecified formulation Nithin Acevedo MD Work Phone: [facility] Work Phone: 08-26-2011 influenza virus vaccine, unspecified formulation Nithin Acevedo MD Work Phone: [facility] Work Phone: 10-09-2010 influenza virus vaccine, unspecified formulation Nithin Acevedo MD Work Phone: [facility] Work Phone: 10-01-2009 influenza virus vaccine, unspecified formulation Nithin Acevedo MD Work Phone: [facility] Work Phone: 01-03-2009 tetanus and diphther ia toxoids, not adsorbed, for adult use Nithni Acevedo MD Work Phone: [facility] 10-01-2007 influenza virus vaccine, unspecified formulation Nithin Acevedo MD Work Phone: [facility] Work Phone: 10-08-2006 influenza virus vaccine, unspecified formulation Nithin Acevedo MD Work Phone: [facility] 12-13-2005 TD(adult) unspecifie d formulation Nithin Acevedo MD Work Phone: [facility] Work Phone: 08-19-2004 influenza virus vaccine, unspecified formulation Nithin Acevedo MD Work Phone: [facility] Work Phone: 09-17-2003 pneumococcal polysaccharide vaccine, 23 valent Nithin Acevedo MD Work Phone: [facility] Work Phone: Payers Date Payer Category Payer Self-pay [id number] 2024 Medicare MMO MEDICARE MMO MEDADVANTAGE [id number] 2024-[facility] [phone] [address] [place] [address] HMO [id number] 2024 Medicare (Managed Care) MMO ADAN DVANTAGE HMO [id number] 2024 Medicare [id number] 2022 Medicare [id number] 2017 Unknown PRIMETIME PRIMET ELA HMO POS [id number] 2017-Present [phone] [address] [place] [address] O [id number] 2017 Unknown [id number] .[id number] 2014 Unknown [id number] 1936 Unknown [id number] 2.16840.1.883949.3.579 .2. 1936 Unknown [id number] 2.16840.1.317424.3.579 .2.62 1936 Unknown [id number] 2.16840.1.188496.3.579 .2.62 1936 Unknown [id number] 2.16840.1.283001.3.579 .2.627 1936 Unknown [id number] 2.16840.1.487223.3.579 .2. 1936 Unknown [id number] 2.16.840.1.004072.3.579 .2.627 1936 Unknown [id number] 2.16.840.1.414920.3.579 .2.627 1936 Unknown [id number] 2.16.840.1.869826.3.579 .2.651 1936 Unknown [id number] 2.16.840.1.243385.3.579 .2.651 1936 Unknown [id number] 2.16.840.1.381122.3.579 .2.651 1936 Unknown [id number] 2.16.840.1.229082.3.579 .2.651 Unknown [id number] 2.16.840.1.609938.3.579 .2.462 Unknown [id number] 2.16.840.1.798932.3.579 .2.462 Unknown [id number] 2.16.840.1.099217.3.579 .2.462 Unknown [id number] 2.16.840.1.168178.3.579 .2.462 Unknown [id number] 2.16.840.1.860683.3.579 .2.462 Unknown [id number] 2.16.840.1.307358.3.579 .2.462 Unknown [id number] 2.16.840.1.746311.3.579 .2.462 Unknown [id number] [id number] .2.462 Social History Date Type Detail Facility Start: 05-13-2022 End: 07-21-2025 Tobacco smoking status NHIS Ex-smoker [facility] Work Phone: Start: [birth year]-17-1954 End: 11-17-1974 History of tobacco use Current smoker [facility] Work Phone: Start: [birth year]-17-1954 End: 01-01-1975 History of tobacco use Cigarette Smoker [facility] Work Phone: Start: 02-05-2022 End: 04-01-2025 Alcohol intake Current non-drinker of alcohol (finding) [facility] Start: 1935 Sex Assigned At Male C [facility] Start: 09-30-2020 End: 06-12-2022 Exposure to SARS-CoV-2 (event) Not sure [facility] Start: 10-18-2012 Tobacco smoking status Never [facility] Start: 04-08-2011 End: 02-15-2025 Cigarettes smoked current (pack per day) - Reported 3 [facility] Work Phone: Start: 04-08-2011 End: 07-28-2024 Tobacco use and exposure Smokeless tobacco non-user [facility] Work Phone: Start: 06-25-2022 End: 02-15-2025 Tobacco use panel [facility] Work Phone: Start: 05-28-2020 Gender identity Identifies as male gender (finding) [facility] Start: 03-27-2024 Tobacco smoking stat us NYIS Unknown if ever smoked [facility] Start: 04-16-2018 None [facility] Start: 04-16-2018 With Family [facility] Start: 04-17-2018 Cigarettes [facility] Has the [employer], [employer], [employer], or water company threatened to shut off services in your home in past 12Mo No [facility] Do you belong to any clubs or organizations such as baptism groups, unions, fraternal or athletic groups, or school groups? Yes [facility] Are you now , , , , never or living with a partner? [facility] How often to you hav e a drink containing alcohol? Never [facility] Do you feel stress - tense, restless, nervous, or anxious, or unable to sleep at night because your mind is troubled all the time - these days [OSQ] To some extent [facility] (I/We) worried wheth er (my/our) food would run out before (I/we) got money to buy more. Never true [facility] Do you feel stress - tense, restless, nervous, or anxious, or unable to sleep at night because your mind is troubled all the time - these days [OSQ] Only a little [facility] Medical Equipment Procedure Code Equipment Code Equipment Origin al Text Equipment Identifier Dates [id number], [id number], [id number], [id number] Start: 11-30-2018 End: 07-26-2025 Comment on above: [...] 0 07/25/20 4:18 PM EDT User, Ingris [facility] 07-25-2025 How often to you hav e a drink containing alcohol? Never 07/25/2025 4:18 PM EDT User, Ingris Never [facility] 07-25-2025 Functional status Patient does n ot drink 07/25/2025 4:18 PM EDT User, Ingris Patient does not drink [facility] 07-25-2025 How often do you hav e 6 or more drinks on 1 occasion? Never 07/25/2025 4:18 PM EDT UserIngris Never [facility] 07-23-2025 Functional status Ambulates [facility] Work Phone: 07-07-2022 Functional Status Yes [facility] 07-07-2022 Functional Status Door open, Room check performed [facility] 07-07-2022 [facility]-07[facility] Functional Status [facility] 07-07-2022 Functional Status [facility] 07-06-2022 Functional Status [facility] 07-06-2022 Functional Status Up to chair Arian [facility] 07-05-2022 Functional Status Done [facility] 07-04-2022 Functional Status [facility] 07-04-2022 Functional Status 100 [facility] 07-04-2022 Functional Status [facility] 07-03-2022 Functional Status [facility] 07-03-2022 Functional Status [facility] 07-03-2022 Functional Status [facility] 07-03-2022 Functional Status SCD On/Re-appl ied right knee high [facility] 07-03-2022 Functional Status [facility] 07-02-2022 [facility] Status Patient Identi fied Identification band, Verbal [facility] 07-02-2022 Functional Status NPO Status Maintained A [facility] 05-15-2022 Functional Status Identified as high risk, Fall ID band on, Room located near nursing station [facility] 05-15-2022 [facility] Status [facility] 05-15-2022 Functional Status is very i ndependent and able to assist as needed after discharge. pt and in process of selling acres and moving into a double wide 05-15-22 KR [facility] 05-15-2022 Functional Status [facility] 05-15-2022 Functional Status [facility] 05-14-2022 Functional Status [facility] 05-14-2022 Functional Status [facility] 05-14-2022 Functional Status Home independe ntly, Lives with spouse [facility] 05-14-2022 Functional Status ice chips and sips take n [facility] 05-14-2022 Functional Status [facility] 05-13-2022 Functional Status Sensory Defici ts Hearing deficit, left ear, Hearing deficit, right ear [facility] 05-17-2015 Are you deaf, or do you have serious difficulty hearing No 05/17/2015 1:58 PM EDT Farideh Gerardo MA No [facility] 05-17-2015 Are you blind, or do you have serious difficulty seeing, even when wearing glasses No 05/17/2015 1:58 PM EDT Farideh Gerardo MA No [facility] 05-17-2015 Do you have serious difficulty walking or climbing stairs No 05/17/2015 1:58 PM EDT Farideh Gerardo MA No [facility] 05-17-2015 Do you have difficul ty dressing or bathing No 05/17/2015 1:58 PM EDT Farideh Gerardo MA No [facility] 05-17-2015 Because of a physica l, mental, or emotional condition, do you have difficulty doing errands alone such as visiting a physician's office or shopping No 05/17/2015 1:58 PM EDT Farideh Gerardo MA No [facility] Mental Status Date Assessment Result Facility 07-23-2025 Cognitive function Voice/Name [facility] Work Phone: 07-07-2022 Mental Status Orientation Oriented x 4 [facility] 07-06-2022 Mental Status [facility] 07-06-2022 Mental Status [facility] 07-06-2022 Mental Status [facility] 07-03-2022 Mental Status [facility] 06-29-2022 Mental Status Oriented x 4 [facility] 05-15-2022 Mental Status [facility] 05-15-2022 Mental Status [facility] 05-17-2015 Because of a physica l, mental, or emotional condition, do you have serious difficulty concentrating, remembering, or making decisions No 05/17/2015 1:58 PM EDT Farideh Gerardo MA No [facility] Clinical Notes 09-20-2017 to 08-03-2025 Telephone Encounter - Ciera Conner LPN - 08/03/2025 11:15 AM EDTTelephone Encounter - Ciera Conner LPN - 08/03/2025 11:15 AM EDTTelephone Encounter - Bear Good RN - 08/02/2025 9:55 AM EDT Note Date & Type Note Facility 08-03-2025 Telephone encounter Note Fax rec'd from [employer] for PA on dexcom G7 sensors. This was approved from 07/25/25 to 07/23/26. [facility] 08-03-2025 Miscellaneous Notes Fax rec'd from [employer] for PA on dexcom G7 sensors. This was approved from 07/25/25 to 07/23/26. documented in this encounter [facility] 08-02-2025 Telephone encounter Note Ellen with [facility] OT is calling to let pcp know that she will be seeing patient daily for 2 weeks and this twice weekly for 2 weeks for strength training. [facility] 08-02-2025 Miscellaneous Notes Ellen with [facility] HH is calling to let pcp know that she will be seeing patient daily for 2 weeks and this twice weekly for 2 weeks for strength training. documented in this encounter [facility] 08-02-2025 Telephone encounter Note Moises- nurse- [facility] reports pt came out of hospital with [...] compression to each. No call back needed. [facility] 08-02-2025 Miscellaneous Notes Moises- nurse- [facility] reports pt came out of hospital with [...] call back needed. documented in this encounter [facility] 07-28-2025 Telephone encounter Note Chepe PT calling from [facility] to report plan of care for patient and PT will visit patient two times a week for three weeks. PT will work with patient on functional mobility training. No call back needed. Krissy Amor RN [facility] 07-28-2025 Miscellaneous Notes Chepe PT calling from [facility] to report plan of care for patient and PT will visit patient two times a week for three weeks. PT will work with patient on functional mobility training. No call back needed. Krissy Amor RN documented in this encounter [facility] 07-28-2025 Telephone encounter Note Order called back to [facility]. [facility] 07-28-2025 Miscellaneous Notes Order called back to [facility]. Okay plan of care and wound care. Draw labs next week. Niya calling from [facility] to report plan of care for patient and penitentiary will visit patient 2 times a week for 2 weeks and 1 time a week for 1 weeks. long-term will work with patient on continuing education [...] Deisi Morelos RN documented in this encounter [facility] 07-28-2025 Telephone encounter Note Tori with [facility] called and is notified of providers message and instructions. She voices understanding, and states she will let Clemencia know. nAthony Ardon RN [facility] 07-28-2025 Miscellaneous Notes Tori with [facility] called and is notified of providers message and instructions. She voices understanding, and states she will let Clemencia know. Anthony Ardon RN Yes. Please also do wound care left leg and gluteal area. Clemencia with [facility] calls to ask if provider would be willing to follow their HH orders for SN, PT, and OT. Patient discharged over the weekend from [facility] after treatment for CHF exacerbation. Call back number is [phone]. Krissy Amor RN documented in this encounter [facility] 07-27-2025 Telephone encounter Note Okay plan of care and wound care. Draw labs next week. [facility] 07-27-2025 Telephone encounter Note Niya calling from [facility] to report plan of care for patient and penitentiary will visit patient 2 times a week for 2 weeks and 1 time a week for 1 weeks. long-term will work with patient on continuing education [...] Please review and Advise, Deisi Morelos RN [facility] 07-26-2025 Telephone encounter Note Yes. Please also do wound care left leg and gluteal area. [facility] 07-26-2025 Instructions Nithin Acevedo MD - 07/26/2025 1:26 PM EDT HAVE FASTING BLOOD WORK DONE NEXT WEEK. HOME HEALTH CAN DRAW. SEE DR STRICKLAND FOR FOLLOW UP. documented in this encounter [facility] 07-26-2025 Note HNO ID: [id number] Author: NITHIN ACEVEDO MD Service: ? Author [...] mg in PM). He normally followed with [facility]iology, Dr. Harman Strickland. He had not seen his watch guard gate since March, having cancelled his follow up. 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 Atrial Fibrillation ([facility]) S/P Cabg X 2 Rbbb (Right Bundle Branch Block) Encounter for Monitoring Anti-Arrhythmic Therapy Ckd (Chronic Kidney Disease) Stage 4, Gfr 15-29 Ml/Min ([facility]) Chronic Diastolic Chf (Congestive Heart Failure) ([facility]) 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 doxazosin (CARDURA) 2 mg tablet Take 1 tablet by mouth daily at bedtime. Blood-Glucose Meter,Continuous (DEXCOM G7 GROOVER OPERATOR) [facility] Dx: E11.49. Insulin: Yes. Use to check [...] insulin needles, DIS (more content not included)... [facility] 07-26-2025 History of Presen t illness Narrative [...] mg in PM). He normally followed with [facility] Cardiology, Dr. Harman Strickland. He had not seen his watch guard gate since March, having cancelled his follow up. 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 Atrial Fibrillation ([facility]) S/P Cabg X 2 Rbbb (Right Bundle Branch Block) Encounter for Monitoring Anti-Arrhythmic Therapy Ckd (Chronic Kidney Disease) Stage 4, Gfr 15-29 Ml/Min ([facility]) Chronic Diastolic Chf (Congestive Heart Failure) ([facility]) 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 doxazosin (CARDURA) 2 mg tablet Take 1 tablet by mouth daily at bedtime. Blood-Glucose Meter,Continuous (DEXCOM G7 GROOVER OPERATOR) [facility] Dx: E11.49. Insulin: Yes. Use to check [...] 1. Chronic diastolic CHF (congestive heart failure) ([facility]) - ICD9: 428.32, 428.0, ICD10: I50.32 (primary diagnosis) - HFpEF 50+ - Decompensated - Continue current medications - FUROSEMIDE 40 MG TABLET - BASIC METABOLIC PANEL 2. Encounter for immunization - ICD9: V03.89, ICD10: Z23 - INFLUENZA VACCINE, PRSV FREE, AGE 65+ YR, HIGH DOSE, TRIVALENT (FLUZONE HIGH-DOSE) 3. CKD (chronic kidney disease) stage 4, GFR 15-29 ml/min ([facility]) - ICD9: 585.4, ICD10: N18.4 - eGFR: 21 Worsening - CONSULT TO NEPHROLOGY - BASIC METABOLIC PANEL 4. 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) - ICD9: 285.21, 585.4, ICD10: N18.4, D63.1 - eGFR: 21 Worsening - Counseled on avoiding NSAIDs, adequate hydration - COMPLETE BLOOD COUNT 5. Type 2 diabetes mellitus with neurological manifestations, controlled ([facility]) - ICD9: 250.60, ICD10: E11.49 - Worsening [...] Nithin Acevedo MD documented in this encounter [facility] 07-25-2025 Telephone encounter Note Clemencia with [facility] HH calls to ask if provider would be willing to follow their HH orders for SN, PT, and OT. Patient discharged over the weekend from [facility] after treatment for CHF exacerbation. Call back number is [phone]. Krissy Amor, RN [facility] 07-25-2025 Telephone encounter Note Aliza notified, refill to be done at follow-up appt. Patient has enough medication until appt. Daxa Morin LPN [facility] 07-25-2025 Miscellaneous Notes Aliza notified, refill to be done at follow-up appt. Patient has enough medication until appt. Daxa Morin LPN Patient's spouse calling in stating [facility] changed his Lasix dosage to 80 mg in the morning, and 40 mg at night. She is requesting this be sent to their [facility] in [place]. Please review and advise. Abbie Davalos July 25, 2025 9:51 AM documented in this encounter [facility] 07-25-2025 Telephone encounter Note Patient's spouse calling in stating WC changed his Lasix dosage to 80 mg in the morning, and 40 mg at night. She is requesting this be sent to their [facility] in [place]. Please review and advise. Abbie Davalos July 25, 2025 9:51 AM [facility] 07-23-2025 Hospital Discharg e instructions Additional Instructions Date of Discharge: 07/23/25 [facility] Work Phone: 07-23-2025 Discharge summary Note Date/Time July 23, 2025 11:01am [facility] Medical Records Department [address] [place] [address] Discharge Summary 07/23/25 1057 MR#: [id number] Acct: [id number] Name: FEDERICO HU Rep #:[id number] : 1935 89 From: Nathaniel Beverly MD PCP: Dr. Nithin Acevedo MD Status:A DM IN Location: [place] [address] Providers Date of Admission: 07/21/25 Date of [...] monitored bed as part of his evaluation [id number] echo serial cardiac enzymes as well as [...] 72.8 H, Lymph % (Auto) 12.7 L, [place] % (Auto) 11.2 H, Eos % (Auto) [...] Self Care Charges/Coding Visit Charges Inpatient E&M: 49629 Disch Hosp >30min 07/23/25 1101 <Electronically signed by Nathaniel Beverly MD> Cosigner Signature (if applicable): CC: Dr. Nathaniel Beverly MD; Dr. Nithin Acevedo MD~ Signed [facility] Work Phone: 1(300) 662-989109-06-2025 Progress note Author Nathaniel Beverly [facility] Note Date/Time July 23, 2025 10:56am [facility] Medical Records Department [address] [place] [address] Progress Note - Hospitalist 07/23/25 0746 MR#: [id number] Acct: [id number] Name: FEDERICO HU Rep #:[id number] : 1935 89 From: Nathaniel Beverly MD PCP: Dr. Nithin Acevedo MD Status:A DM IN Location: [place] [address] Reason for Visit Chief Complaint: Shortness of [...] 72.8 H, Lymph % (Auto) 12.7 L, [place] % (Auto) 11.2 H, Eos % (Auto) [...] monitored bed as part of his evaluation [id number] echo serial cardiac enzymes as well as [...] 38 Minutes Charges/Coding Visit Charges Inpatient E&M: 90501 Subs Hosp L2 07/23/25 1056 <Electronically signed by Nathaniel Beverly MD> Cosigner Signature (if applicable): CC: ~ Signed [facility] Work Phone: 1(565) 870-419409-06-2025 Discharge summary [facility] Medical Records Department [address] [place] [address] Discharge Summary 07/23/25 1057 MR#: [id number] Acct: [id number] Name: FEDERICO HU Rep #:[id number] : 1935 89 From: Nathaniel Beverly MD PCP: Dr. Nithin Acevedo MD Status:A DM IN Location: [place] [address] Providers Date of Admission: 07/21/25 Date of [...] monitored bed as part of his evaluation [id number] echo serial cardiac enzymes as well as [...] 72.8 H, Lymph % (Auto) 12.7 L, [place] % (Auto) 11.2 H, Eos % (Auto) [...] Self Care Charges/Coding Visit Charges Inpatient E&M: 97004 Disch Hosp >30min 07/23/25 1101 Cosigner Signature (if applicable): CC: Dr. Nathaniel Beverly MD; Dr. Nithin Acevedo MD~ Signed [facility]09-06-2025 [facility] Medical Records Department [address] [place] [address] Discharge Summary 07/23/25 1057 MR#: [id number] Acct: [id number] Name: FEDERICO HU Rep #: [id number] : 1935 89 From: Nathaniel Beverly MD PCP: Dr. Nithin Acevedo MD Status:ADM IN Location: [place] [address] Providers Date of Admission: 07/21/25 Date of [...] 72.8 H, Lymph % (Auto) 12.7 L, [place] % (Auto) 11.2 H, Eos % (Auto) 2.4, Baso % (Auto) 0.7, Absolute Neuts (auto) 3.9, Absolute Lymphs (auto) 0.68 L, Nucleated RBC % 0, Sodium 143, Pot (more content not included)...[facility]09-06-2025 Progress note [facility] Medical Records Department [address] [place] [address] Progress Note - Hospitalist 07/23/25 0746 MR#: [id number] Acct: [id number] Name: FEDERICO HU Rep #:[id number] : 1935 89 From: Nathaniel Beverly MD PCP: Dr. Nithin Acevedo MD Status:A DM IN Location: [place] [address] Reason for Visit Chief Complaint: Shortness of [...] 72.8 H, Lymph % (Auto) 12.7 L, [place] % (Auto) 11.2 H, Eos % (Auto) [...] monitored bed as part of his evaluation [id number] echo serial cardiac enzymes as well as [...] 38 Minutes Charges/Coding Visit Charges Inpatient E&M: 24554 Subs Hosp L2 07/23/25 1056 Cosigner Signature (if applicable): CC: ~ Signed [facility]09-05-2025 Progress note Author Nathaniel Beverly [facility] Note Date/Time July 22, 2025 9:51am [facility] Medical Records Department [address] [place] [address] Progress Note - Hospitalist 07/22/25 0838 MR#: [id number] Acct: [id number] Name: FEDERICO HU Rep #:[id number] : 1935 89 From: Nathaniel Beverly MD PCP: Dr. Nithin Acevedo MD Status:A DM IN Location: [place] [address] Reason for Visit Chief Complaint: Shortness of [...] 74.0 H, Lymph % (Auto) 12.7 L, [place] % (Auto) 9.0, Eos % (Auto) 2.9, [...] 70.2 H, Lymph % (Auto) 13.2 L, [place] % (Auto) 12.3 H, Eos % (Auto) [...] and recommendations as discussed above. Reading Location: [facility] Renal Ultrasound 07/21/25 11:58 IMPRESSION: Right kidney 10.9 cm, left kidney 8.7 cm. No hydronephrosis. 5.1 ? 5.7 ? 4.8 cm thinly septated cyst in the lwt-ms-rsmnnkus left kidney. Normal bladder with bilateral ureteral jets. Reading Location: [address] Physical Exam Narrative GENERAL: cooperative HEENT: [...] monitored bed as part of his evaluation [id number] echo serial cardiac enzymes as well as [...] episodes held the long-acting [facility] with sliding scale coverage 4. Paroxysmal [...] 50 Minutes Charges/Coding Visit Charges Inpatient E&M: 31501 Subs Hosp L3 07/22/25 0951 <Electronically signed by Nathaniel Beverly MD> Cosigner Signature (if applicable): CC: ~ Signed [facility] Work Phone: 1(853) 287-901409-05-2025 Progress note [facility] Medical Records Department [address] [place] [address] Progress Note - Hospitalist 07/22/25 08 MR#: [id number] Acct: [id number] Name: FEDERICO HU Rep #:[id number] : 1935 89 From: Nathaniel Beverly MD PCP: Dr. Nithin Acevedo MD Status:A DM IN Location: [place] [address] Reason for Visit Chief Complaint: Shortness of [...] 74.0 H, Lymph % (Auto) 12.7 L, [place] % (Auto) 9.0, Eos % (Auto) 2.9, [...] Hi Sens 2 Hr 87 H*, Vitamin [id number] 07/21/25 14:49: Troponin T Hi Sens 4Hr [...] 70.2 H, Lymph % (Auto) 13.2 L, [place] % (Auto) 12.3 H, Eos % (Auto) [...] and recommendations as discussed above. Reading Location: [facility] Renal Ultrasound 07/21/25 11:58 IMPRESSION: Right kidney 10.9 cm, left kidney 8.7 cm. No hydronephrosis. 5.1 ? 5.7 ? 4.8 cm thinly septated cyst in the urs-ii-lotsiujt left kidney. Normal bladder with bilateral ureteral jets. Reading Location: [address] Physical Exam Narrative GENERAL: cooperative HEENT: [...] monitored bed as part of his evaluation [id number] echo serial cardiac enzymes as well as [...] 50 Minutes Charges/Coding Visit Charges Inpatient E&M: 62498 Subs Hosp L3 07/22/25 0951 Cosigner Signature (if applicable): CC: ~ Signed [facility]09-04-2025 Radiology Diagnostic study note [facility] Imaging Services [address] [place], [place] [address] Kidney and Bladder MR#: [id number] Acct: [id number] Name: FEDERICO HU Rep #: [id number] : 1935 M 89 From: Ryan Dawn MD PCP: Dr. Nithin Acevedo MD Status: A DM IN Study:Kidney and Bladder Date of Exam: 0 07/21/25 Exam# [id number] Ordering Dr: Nino Beverly MD PROCEDURE: KIDNEY [...] thinly septated cyst is present in the icb-ci-uqgklmig pole. Urinary bladder pre-void volume 716 mL. Wall thickness 3 mm. Ureteral jets visualized bilaterally. US/Kidney and Bladder IMPRESSION: Right kidney 10.9 cm, left kidney 8.7 cm. No hydronephrosis. 5.1 ? 5.7 ? 4.8 cm thinly septated cyst in the swu-se-idsmiqex left kidney. Normal bladder with bilateral ureteral jets. Reading Location: [address] CC: Dr. Nathaniel Beverly MD; Dr. Nithin Acevedo MD ~ Product Consultant: Signed [facility]09-04-2025 Discharge summary Author Misa [facility] Note Date/Time July 21, 2025 3:04pm [facility] Medical Records Department [address] [place] [address] Emergency Department Summary 07/21/25 MR#: [id number] Acct: [id number] Name: FEDERICO HU Rep #:[id number] : 1935 89 From: Fely Parra DO PCP: Dr. Nithin Acevedo MD Status:A DM IN Location: [place] [address] HPI History of Present Illness Chief Complaint: [...] green phlegm. He has had no fever. [facility] Medical History Afib CAD (coronary [...] Reaction Status Date / Time finasteride (From [employer]) Allergy Hives Verified 07/21/25 10:26 Social History [...] 74.0 H Lymph % (Auto) 12.7 L [place] % (Auto) 9.0 Eos % (Auto) 2.9 [...] and recommendations as discussed above. Reading Location: [facility] 1 view chest x-ray obtained interpreted by [...] MD [Primary Care Provider] - Print Language: Thai Disposition Disposition: Acute Care Hospital [facility] What to do if you have Problems For any increased pain, shortness of breath, bleeding, nausea or vomiting, chestpain, or any unexpected problems, contact your Primary Care Provider. Call [facility] ([phone]) or report to the closest Emergency Room. Call 911 if necessary. 07/21/25 1504 <Electronically signed by Fely Parra DO> Cosigner Signature (if applicable): CC: Dr. Nithin Acevedo MD ~ Signed [facility] Work Phone: 1(457) 986-553409-04-2025 Discharge summary [facility] Medical Records Department [address] [place] [address] Emergency Department Summary 07/21/25 MR#: [id number] Acct: [id number] Name: FEDERICO HU Rep #:[id number] : 1935 89 From: Fely Parra DO PCP: Dr. Nithin Acevedo MD Status:A DM IN Location: [address] History of Present Illness Chief Complaint: [...] green phlegm. He has had no fever. [facility] Medical History Afib CAD (coronary [...] Reaction Status Date / Time finasteride (From [employer]) Allergy Hives Verified 07/21/25 10:26 Social History [...] 74.0 H Lymph % (Auto) 12.7 L [place] % (Auto) 9.0 Eos % (Auto) 2.9 [...] and recommendations as discussed above. Reading Location: [facility] 1 view chest x-ray obtained interpreted by [...] BID Primary Care Provider: Nithin Acevedo Referrals: iNthin Acevedo MD [Primary Care Provider] - Print Language: Thai Disposition Disposition: Acute Care Hospital [facility] What to do if you have Problems For any increased pain, shortness of breath, bleeding, nausea or vomiting, chestpain, or any unexpected problems, contact your Primary Care Provider. Call [facility] ([phone]) or report tothe closest Emergency Room. Call 911 if necessary. 07/21/25 1504 Cosigner Signature (if applicable): CC: Dr. Nithin Acevedo MD ~ Signed [facility]09-04-2025 History and physical note Author Nathaniel Beverly [facility] Note Date/Time July 21, 2025 12:06pm [facility] Medical Records Department [address] [place] [address] H&P Exam - Hospitalist 07/21/25 1159 MR#: [id number] Acct: [id number] Name: FEDERICO HU Rep #:[id number] : 1935 89 From: Nathaniel Beverly MD PCP: Dr. Nithin Acevedo MD Status:A DM IN Location: [place] [address] HPI - General General Date of Admission: [...] admitted toa monitored bed for further management [facility] Medical History Afib CAD (coronary [...] Reaction Status Date / Time finasteride (From [employer]) Allergy Hives Verified 07/21/25 10:26 Social History [...] 74.0 H, Lymph % (Auto) 12.7 L, [place] % (Auto) 9.0, Eos % (Auto) 2.9, [...] and recommendations as discussed above. Reading Location: [id number] Assessment & Plan Assessment/Plan (1) CKD (chronic [...] Multi Select Codes Visit Charges Visit Charges: 49259 Init Hosp L3 Hospitalists' Procedures Procedures: 63906 Advncd Care Plan 30 Min 07/21/25 1206 <Electronically signed by Nathaniel Beverly MD> Cosigner Signature (if applicable): CC: Dr. Nathaniel Beverly MD; Dr. Nithin Acevedo MD~ Signed [facility] Work Phone: 1(932) 649-631009-04-2025 Evaluation note* Diagnosis Onset Date Resolution Status Admit Date Anemia acute July 21, 2025 11:45am CHF (congestive heart failure) acute July 21 025 11:45am CKD (chronic kidney disease) chronic July 21, 2025 11:45am [facility] Work Phone: 1(761) 550-662109-04-2025 History and physical note [facility] Medical Records Department [address] [place] [address] H&P Exam - Hospitalist 07/21/25 1159 MR#: [id number] Acct: [id number] Name: FEDERICO HU Rep #:[id number] : 1935 89 From: Nathaniel Beverly MD PCP: Dr. Nithin Acevedo MD Status:A DM IN Location: [place] [id number]- 1 HPI - General General Date of [...] admitted toa monitored bed for further management [facility] Medical History Afib CAD (coronary [...] 74.0 H, Lymph % (Auto) 12.7 L, [place] % (Auto) 9.0, Eos % (Auto) 2.9, [...] and recommendations as discussed above. Reading Location: [facility] Assessment & Plan Assessment/Plan (1) CKD (chronic [...] Multi Select Codes Visit Charges Visit Charges: 21834 Init Hosp Hospitalists' Procedures Procedures: 10486 Advncd Care Plan 30 Min 07/21/25 1206 Cosigner Signature (if applicable): CC: Dr. Nathaniel Beverly MD; Dr. Nithin Acevedo MD~ Signed [facility]09-04-2025 Radiology Diagnostic study note [facility] Imaging Services [address] [place], [place] [id number] Chest 1 View (Portable) MR#: [id number] Acct: [id number] Name: FEDERICO HU Rep #: [id number] : 1935 M 89 From: Aurora Moore MD PCP: Dr. Nithin Acevedo MD Status: R EG ER Study:Chest 1 View (Portable) Date of Exam: 07/21/25 Exam# [id number] Ordering Dr: Carolina Parra DO PROCEDURE: CHEST [...] and recommendations as discussed above. Reading Location: [id number] CC: Dr. Fely Parra DO; Dr. Nithin Acevedo MD ~ Product Consultant: Signed [facility]08-15-2025 Telephone encounter Note* Telephone Encounter - [place] [...] [place] Hull July 01, 2025 1:37 PM [facility]08-15-2025 Miscellaneous Notes* Telephone Encounter - [place] Valdez [...] 01, 2025 1:37 PM documented in this encounterUniversity Hospitals Health System05-16-2025 Instructions* Patient Instructions* Gisell Cassidy APRN.CNP - 04/01/2025 11:58 AM EDT Plan to repeat the CT scan of your chest in approximately 3 months. We can have a visit after to goover the results. If your cough symptoms worse, you are coughing more, coughing up dark yellow/green sputum, develop fevers, chills, etc, please let the office know. documented in this encounterUniversity Hospitals Health System05-16-2025 History of Present illness Narrative* Gisell Cassidy [...] L Chronic diastolic CHF (congestive heart failure) ([facility]) 07/22/2018 CKD (chronic kidney disease) stage 4, GFR 15-29 ml/min ([facility]) 07/22/2018 CORONARY ATHEROSCLER UNSPEC VESSEL 01/03/2009 2 [...] to see current settings/supplies/DME information. DEXCOM G7 GROOVER OPERATOR Misc Generic drug: Blood-Glucose Meter,Continuous Dx: E11.49. [...] also possible in the appropriate clinical setting. Product Consultant: QUYEN Transcribe Date/Time: Dec 30 2024 11:28A Dictated by : SANGITA GARRIDO MD This examination was interpreted and the report reviewed and electronically signed by: SANGITA GARRIDO MD on Dec 30 2024 12:00PM EST Results-Findings * * *Final Report* * * DATE OF EXAM: Dec 30 2024 11:13AM [facility] 0541 - CT CHEST WO IVCON [...] which included preparing to see the patient, [id number]-[id number]-[id number] patient care, completing clinical documentation, performing a medically appropriate examination, counseling and educating the patient/family/caregiver, and ordering medications, tests,or procedures. documented in this encounterUniversity Hospitals Health System05-16-2025 NoteHNO ID: [id number] Author: GISELL CASSIDY APRN.CNP Service: ? Author [...] L Chronic diastolic CHF (congestive heart failure) ([facility]) 07/22/2018 CKD (chronic kidney disease) stage 4, GFR 15-29 ml/min ([facility]) 07/22/2018 CORONARY ATHEROSCLER UNSPEC VESSEL 01/03/2009 2 [...] to see current settings/supplies/DME information. DEXCOM G7 GROOVER OPERATOR Misc Generic drug: Blood-Glucose Meter,Continuous Dx: E11.49. [...] mg/3 mL) pen Commonly (more content not included)...[facility]04-21-2025 Instructions* Patient Instructions* Katherin Mckinnon APRN.CNP - 03/07/2025 11:57 AM EDT Discuss jaw pain as a possible side effect from Jardiance with Dr. Strickland Call your insurance to see if they cover the new Dexcom G7 15 day continuous glucose monitor or theFreestyle Sofya 3, 15 day glucose monitor documented in this encounterUniversity Hospitals Health System04-21-2025 NoteHNO ID: [id number] Author: KATHERIN MCKINNON APRN.CNP Service: ? Author [...] switch from Farxiga to Jardiance by his watch guard gate, which occurred only a few days before onset of pain. Hypertension: taking medications as prescribed, denies side effects. Does not check BP at home. Symptoms: Dizziness/Lightheaded - No Chest Pain - No Shortness of Breath - No Swelling Yes :History of bilateral lower kidney disease Fatigue No Afib- medications managed by watch guard gate. Anticoagulation: yes, Eliquis; Rate control: Yes; rhythm [...] L Chronic diastolic CHF (congestive heart failure) ([facility]) 07/22/2018 CKD (chronic kidney disease) stage 4, GFR 15-29 ml/min ([facility]) 07/22/2018 CORONARY ATHEROSCLER UNSPEC VESSEL 01/03/2009 2 [...] daily at bedtime. Blood-Glucose Meter,Continuous (DEXCOM G7 GROOVER OPERATOR) [facility] Dx: E11.49. Insulin: Yes. Use to check blood sugars at least 4 times a day Blood-Glucose Sensor (DEXCOM G7 SENSOR) [facility]qu[facility] Dx: E11.49. Insulin: Yes. Apply new sensor every ten (10) days CPAP/BIPAP/OTHER Type .CPAPSettings into a note to see current settings/supplies/DME information. clotrimazole (LOTRIMIN) 1 % cream Apply 1 application to (more content not included)...[facility]04-21-2025 History of Present illness Narrative* Katherin Mckinnon, PLANNING DIRECTOR.FIRST AID TEACHER - 03/07/2025 11:23 AM EDT Images from [...] switch from Farxiga to Jardiance by his watch guard gate, which occurred only a few days before onset of pain. Hypertension: taking medications as prescribed, denies side effects. Does not check BP at home. Symptoms: Dizziness/Lightheaded - No Chest Pain - No Shortness of Breath - No Swelling Yes :History of bilateral lower kidney disease Fatigue No Afib- medications managed by watch guard gate. Anticoagulation: yes, Eliquis; Rate control: Yes; rhythmcontrol: [...] L Chronic diastolic CHF (congestive heart failure) ([facility]) 07/22/2018 CKD (chronic kidney disease) stage 4, GFR 15-29 ml/min ([facility]) 07/22/2018 CORONARY ATHEROSCLER UNSPEC VESSEL 01/03/2009 2 [...] daily at bedtime. Blood-Glucose Meter,Continuous (DEXCOM G7 GROOVER OPERATOR) [facility] Dx: E11.49. Insulin: Yes. Use to check [...] on Farxiga and was changed by his watch guard gate. Recommend discussing further with his watch guard gate. 2. Atrial fibrillation, unspecified type (HCC) - [...] Level: 3 - Low documented in this encounterUniversity Hospitals Health System04-04-2025 Telephone encounter Note * Telephone Encounter - [...] surgery is and if it can wait. [facility]04-04-2025 Miscellaneous Notes* Telephone Encounter - Jodie Bowers [...] [facility] for his antibiotic. documented in this encounterUniversity Hospitals Health System04-04-2025 Telephone encounter Note * Telephone Encounter - Christal Lau RN - 02/18/2025 11:52 AM EDT Phoned and spoke with patient's . I called to let them know that Dr. Guevara is postponing his parathyroid surgery . I told his that we would revisit after he has sees pulmonary in March. His wifewill relay the message to Mr. Hu. Christal Lau RN [facility]04-04-2025 Miscellaneous Notes* Telephone Encounter - Christal Lau RN - 02/18/2025 11:52 AM EDT Phoned and spoke with patient's . I called to let them know that Dr. Guevara is postponing his parathyroid surgery . I told his that we would revisit after he has sees pulmonary in March. His wifewill relay the message to Mr. Hu. Christal Lau RN documented in this encounterUniversity Hospitals Health System04-03-2025 Telephone encounter Note * Telephone Encounter - [...] a prescription to [facility] for his antibiotic. [facility]04-01-2025 Telephone encounter Note* Telephone Encounter - Lisa Trivedi LPN - 02/15/2025 11:20 AM EDT Letter and medical records received from Dr Strickland via fax. Scanned in to [facility]. Lennie Trivedi LPN [facility]04-01-2025 Miscellaneous Notes* Telephone Encounter - Lisa Trivedi LPN - 02/15/2025 11:20 AM EDT Letter and medical records received from Dr Strickland via fax. Scanned in to [facility]. Lennie Trivedi LPN documented in this encounterUniversity Hospitals Health System04-01-2025 History and physical note * Jodie Bowers [...] last cardiac OV on 11/23/2024 scanned into [facility] 11/2024 Echo Scanned into [facility] Type 2 diabetes mellitus with neurological manifestations, controlled ([facility]) Assessment: IDDM and weekly injectable, w/ neuropathy [...] ASA 11/23/2024 Dr. Strickland, Cardiology, Scanned into [facility] Atrial fibrillation ([facility]) Assessment: paroxymal atrial flutter, s/p cardioversion 2015 at [facility], rate controlled, daily Eliquis, reviewed to withhold 3 days prior to surgery, pt verbalized understanding. 11/23/2024 Dr. Strickland, Cardiology, Scanned into [facility] RBBB (right bundle branch block) Assessment: hx, [...] kidney disease) stage 4, GFR 15-29 ml/min ([facility]) Assessment: following nephrology Creatinine Date Value Ref [...] DATE OF EXAM: Dec 30 2024 11:13AM [facility] 0541 - CT CHEST WO IVCON [...] large neck Male patient STOP-Bang Score: 8 [id number] Score: Age: >=75 Sex: male CHF history: Yes Hypertension history: Yes Stroke/TIA/thromboembolism history: No Vascular disease history: Yes Diabetes history: Yes [id number] Score: 6 ARISCAT Score: Age: >80 Preoperative [...] optimally prepared for surgery, pending [see comment]. Pyug-vqmhmfks-DV TE to Dr. Lee for pulmonary optimization [...] 11/05/2024 Postponed until 11/05/2025 by Katherin Mckinnon APRN.FIRST AID TEACHER (Declined at this time) 10/13/2023 Postponed until 10/13/2024 by Katherin Amezcua APRN.FIRST AID TEACHER (Declined at this time) 01/03/2021 Imm Admin: [...] calcium levels during a consult with his payment manager. Subsequently biochemical workupalso revealed an elevated [...] fevers. Neurological: No history of TIA's, stroke, FIRE PROTECTION ENGINEERING TECHNICIAN tumor, impaired sensorium, hemiplegia, paraplegia orquadraplegia. No [...] and PVD Patient's last office visit with watch guard gate, [facility], The following tests and/or procedures were performed: cardiac stents. Negative for: abdominal aortic aneurysm, AICD/PPM, angina, recent WI, PTCA and valve surgery. GI: Positive for: [...] L Chronic diastolic CHF (congestive heart failure) ([facility]) 07/22/2018 CKD (chronic kidney disease) stage 4, GFR 15-29 ml/min ([facility]) 07/22/2018 CORONARY ATHEROSCLER UNSPEC VESSEL 01/03/2009 2 [...] at bedtime. Yes Blood-Glucose Meter,Continuous (DEXCOM G7 GROOVER OPERATOR) [facility] Dx: E11.49. Insulin: Yes. Use to check [...] 458 QTC Calculation (Bazett) 453 Calculated R Howard 90 Calculated T Howard 13 Impression ATRIAL FIBRILLATION WITH SLOW VENTRICULAR RESPONSE WITH PREMATURE VENTRICULAR COMPLEXES COMPLETE RIGHT BUNDLE BRANCH BLOCK ABNORMAL ECG Confirmed by MD JUSTICE, QARAB ([id number]) on 02/16/2025 4:14:50 PM No results found for this or any previous visit (from the past 54741 hours). Instructions Given to Patient: Instructions located in the after visit summary. Patient given verbal and written preop instructions and voices comprehension and compliance. SIGNATURE: Jodie Bowers APRN.CNP PATIENT NAME: Federico Hu DATE: February 15, 2025 TIME: 9:14 AM PAGER/CONTACT #: [facility] History and physical note* Jodie Bowers APRN.CNP [...] scanned into epic 11/2024 Echo Scanned into [facility] Type 2 diabetes mellitus with neurological manifestations, controlled ([facility]) Assessment: IDDM and weekly injectable, w/ neuropathy [...] ASA 11/23/2024 Dr. Strickland, Cardiology, Scanned into [facility] Atrial fibrillation ([facility]) Assessment: paroxymal atrial flutter, s/p cardioversion 2015 at [facility], rate controlled, daily Eliquis, reviewed to withhold 3 days prior to surgery, pt verbalized understanding. 11/23/2024 Dr. Strickland, Cardiology, Scanned into [facility] RBBB (right bundle branch block) Assessment: hx, [...] kidney disease) stage 4, GFR 15-29 ml/min ([facility]) Assessment: following nephrology Creatinine Date Value Ref [...] DATE OF EXAM: Dec 30 2024 11:13AM [facility] 0541 - CT CHEST WO IVCON [...] large neck Male patient STOP-Bang Score: 8 [id number] Score: Age: >=75 Sex: male CHF history: Yes Hypertension history: Yes Stroke/TIA/thromboembolism history: No Vascular disease history: Yes Diabetes history: Yes [id number] Score: 6 ARISCAT Score: Age: >80 Preoperative [...] optimally prepared for surgery, pending [see comment]. Jdol-xsitfwrg-SS TE to Dr. Lee for pulmonary optimization [...] 11/05/2024 Postponed until 11/05/2025 by Katherin Mckinnon APRN.FIRST AID TEACHER (Declined at this time) 10/13/2023 Postponed until 10/13/2024 by Katherin Amezcua APRN.FIRST AID TEACHER (Declined at this time) 01/03/2021 Imm Admin: [...] calcium levels during a consult with his payment manager. Subsequently biochemical workupalso revealed an elevated [...] fevers. Neurological: No history of TIA's, stroke, FIRE PROTECTION ENGINEERING TECHNICIAN tumor, impaired sensorium, hemiplegia, paraplegia orquadraplegia. No [...] and PVD Patient's last office visit with watch guard gate, [facility], The following tests and/or procedures were performed: cardiac stents. Negative for: abdominal aortic aneurysm, AICD/PPM, angina, recent WI, PTCA and valve surgery. GI: Positive for: [...] L Chronic diastolic CHF (congestive heart failure) ([facility]) 07/22/2018 CKD (chronic kidney disease) stage 4, GFR 15-29 ml/min ([facility]) 07/22/2018 CORONARY ATHEROSCLER UNSPEC VESSEL 01/03/2009 2 [...] at bedtime. Yes Blood-Glucose Meter,Continuous (DEXCOM G7 GROOVER OPERATOR) [facility] Dx: E11.49. Insulin: Yes. Use to check [...] 458 QTC Calculation (Bazett) 453 Calculated R Howard 90 Calculated T Howard 13 Impression ATRIAL FIBRILLATION WITH SLOW VENTRICULAR RESPONSE WITH PREMATURE VENTRICULAR COMPLEXES COMPLETE RIGHT BUNDLE BRANCH BLOCK ABNORMAL ECG Confirmed by MD JUSTICE, QARAB ([id number]) on 02/16/2025 4:14:50 PM No results found for this or any previous visit (from the past 93610 hours). Instructions Given to Patient: Instructions located in the after visit summary. Patient given verbal and written preop instructions and voices comprehension and compliance. SIGNATURE: Jodie Bowers APRN.CNP PATIENT NAME: Federico Hu DATE: February 15, 2025 TIME: 9:14 AM PAGER/CONTACT #: documented in this encounterUniversity Hospitals Health System04-01-2025 Instructions* Patient Instructions* Jodie Bowers APRN.CNP - 02/15/2025 9:11 AM EDT Images from the original note were not included. [facility] PATIENT PREOPERATIVE INSTRUCTIONS No ref. provider found has scheduled you for your procedure at this surgery center: [facility]: [phone] -- [address] [place] [address]. Please read below carefully for your personalized [...] morning of surgery. Blood-Glucose Meter,Continuous (DEXCOM G7 GROOVER OPERATOR) misc Blood-Glucose Sensor (DEXCOM G7 SENSOR) laquita [...] office. If you are currently using a tqev-xio-uqff injectable or oral medication for diabetes or [...] or other anticoagulants without consulting with your watch guard gate or prescribing physician. - Stop ALL herbal [...] Procedures: - YOU MUST HAVE A RESPONSIBLE WEDDING COORDINATOR TAKE YOU HOME. A VISION TEACHER OR RECREATION PROFESSOR CANNOT BE MADE A RESPONSIBLE WEDDING COORDINATOR. - We recommend that a responsible person [...] Advance Directive, please fax a copy to [phone] or email to for it to be [...] day. Jodie Bowers APRN.CNP documented in this encounterUniversity Hospitals Health System03-20-2025 NoteHNO ID: [id number] Author: CRISTY CAMARGO RN Service: ? Author Type: Registered [...] reply. RN Pre Visit Questionnaire completed by [facility] chart review. Patient unavailable during this review, and left a detailed voicemail for patient to return call. Do you see a watch guard gate, investigator fraud, women's soccer coach or other specialist within or outside of [facility]? SPECIALISTS: CARDIOLOGY: Bezel Cutter Dr. Harman Strickland, Last office visit 12/09/2024 [...] (2) Diabetes Mellitus (1) Vascular disease (prior WI, PAD, or aortic plaque) (1) [id number] >4 - Letter sent to Dr. Gigi [...] TEST 03/04/2018 View Cardiac - EKG [ID [id number]] View External Cardiology - Echo [ID [id number] View External Cardiology - Stress Test [ID [id number]] Any new changes in your symptoms since [...] February 03, 2025 TIME: 8:24 AM PAGER/CONTACT PHONE:[facility]03-20-2025 History of Present illness Narrative* Cristy Camargo RN - 02/03/2025 8:24 AM EDT RN Pre Visit Questionnaire for upcoming [facility] appointment PROCEDURE : PARATHYROIDECTOMY SURGEON : Dr Kristin Guevara PROCEDURE DATE : 03/11/2025 [facility] APPT : 02/15/2025 Prepared for surgery: Anticoagulant recommendations received: Yes Anticoagulant recommendations: Letter faxed to Dr. Gigi Strickland on 02/03/2025, waiting for reply. RN Pre Visit Questionnaire completed by [facility] chart review. Patient unavailable during this review, and left a detailed voicemail for patient to return call. Do you see a watch guard gate, investigator fraud, women's soccer coach or other specialist within or outside of [facility]? SPECIALISTS: CARDIOLOGY: Bezel Cutter Dr. Harman Strickland, Last office visit 12/09/2024 [...] (2) Diabetes Mellitus (1) Vascular disease (prior WI, PAD, or aortic plaque) (1) [id number] >4 - Letter sent to Dr. Gigi [...] TEST 03/04/2018 View Cardiac - EKG [ID [id number]] View External Cardiology - Echo [ID [id number] View External Cardiology - Stress Test [ID [id number]] Any new changes in your symptoms since [...] 8:24 AM PAGER/CONTACT PHONE: documented in this encounterUniversity Hospitals Health System03-10-2025 Telephone encounter Note * Telephone Encounter - [...] a prescription to [facility] for his antibiotic. [facility]03-10-2025 Miscellaneous Notes* Telephone Encounter - Viet Lee [...] [facility] for his antibiotic. documented in this encounterUniversity Hospitals Health System03-07-2025 NoteHNO ID: [id number] Author: LINH GUSMAN MD Service: ? Author [...] you again. Linh Krause MD 01/21/2025 11:56 [facility]03-07-2025 History of Present illness Narrative* Linh Gusman [...] MD 01/21/2025 11:56 AM documented in this encounterUniversity Hospitals Health System03-07-2025 History of Present illness Narrative* Viet Lee MD - 01/21/2025 11:00 AM EST Images from the original note were not included. . [facility] [place] Note Patient name: Federico Hu PCP: Nithin [...] 0.81 Low Monocytes % % 14.4 Abs [place] <0.87 k/uL 0.64 Eosinophils % % 5.2 [...] DATE OF EXAM: Dec 30 2024 11:13AM [facility] 0541 - CT CHEST WO IVCON [...] L Chronic diastolic CHF (congestive heart failure) ([facility]) 07/22/2018 CKD (chronic kidney disease) stage 4, GFR 15-29 ml/min ([facility]) 07/22/2018 CORONARY ATHEROSCLER UNSPEC VESSEL 01/03/2009 2 [...] one(1) tablet daily. Blood-Glucose Meter,Continuous (DEXCOM G7 GROOVER OPERATOR) [facility] Dx: E11.49. Insulin: Yes. Use to check [...] which included preparing to see the patient, [id number] patient care, completing clinical documentation, obtaining and/or reviewing separately obtained history, performing a medically appropriate examination, counseling and educating the pat ient/family/caregiver, ordering medications, tests, or procedures, communicating with other HCPs (not separately reported), and independently interpreting results (not separately reported). Viet Lee MD [facility] [place] documented in this encounterUniversity Hospitals Health System03-07-2025 NoteHNO ID: [id number] Author: VIET LEE MD Service: ? Author Type: Physician Type: Progress Notes Filed: 01/21/2025 13:26 Note Text: . [facility] [place] Note Patient name: Federico Hu PCP: Nithin [...] 0.81 Low Monocytes % % 14.4 Abs [place] <0.87 k/uL 0.64 Eosinophils % % 5.2 [...] DATE OF EXAM: Dec 30 2024 11:13AM [facility] 0541 - CT CHEST WO IVCON [...] Diagnosis Date Anal fissure 06/19/2006 Atrial fibrillation ([facility]) 05/13/2016 Benign localized hyperplasia of prostate with urinary obstruction and other lower urinary tract symptoms (LUTS)(600.21) 11/30/2009 CAROTID ART OCCL-NO INFARCT 01/31/2009 Carotid US 1-09: > 50% on the R, < 50% on the L Chronic diastolic CHF (congestive heart failure) ([facility]) 07/22/2018 CKD (chronic kidney disease) stage 4, GFR 15-29 ml/min ([facility]) 07/22/2018 CORONARY ATHEROSCLER UNSPEC VESSEL 01/03/2009 2 [...] 09/2003 ALLERGIES Allergen Reactions (more content not included)...[facility]03-07-2025 NoteHNO ID: [id number] Author: LILI NEWMAN RPFT Service: ? Author Type: Respiratory Therapist Type: Progress Notes Filed: 01/21/2025 10:56 Note Text: PULM FUNCTION: Provider: Viet Lee MD Assisting Tech: Lili Newman RPFT Spirometry: [facility] History of Present illness Narrative* Lili Newman RPFT - 01/21/2025 10:41 AM EST PULM FUNCTION: Provider: Viet Lee MD Assisting Tech: Lili Newman RPFT Spirometry: 1 documented in this encounterUniversity Hospitals Health System02-24-2025 Telephone encounter Note * Telephone Encounter - Christal Lau RN - 01/10/2025 1:31 PM EST Phoned and spoke to Mr. Hu. Dr. Guevara would like him to hydrate to help to lower his calcium levels. Pt states he drinks a lot of fluids but the fluid is Pepsi. I asked him to please add some waterinto his drinking. He will try.Christal Lau RN [facility]02-24-2025 Miscellaneous Notes* Telephone Encounter - Christal Lau [...] will try.Christal Lau RN documented in this encounterUniversity Hospitals Health System02-21-2025 Telephone encounter Note * Telephone Encounter - Jazlyn Carmen - 01/07/2025 9:07 AM EST Hello, patient is requesting a call back to discuss and set up a surgery date. Thank you. [facility]02-21-2025 Miscellaneous Notes* Telephone Encounter - Jazyln Carmen - 01/07/2025 9:07 AM EST Hello, patient is requesting a call back to discuss and set up a surgery date. Thank you. documented in this encounterUniversity Hospitals Health System02-19-2025 Telephone encounter Note * Telephone Encounter - Christal Lau RN - 01/05/2025 10:02 AM EST Phoned pt and spoke with him. Dr Guevara reviewed the results of his nuclear medicine sestamibi scan and it was negative. Dr. Guevara would still like Mr. Hu to consider surgery. Pt will talk to his family and get back to us. Christal Lau RN [facility]02-19-2025 Miscellaneous Notes* Telephone Encounter - Christal Lau RN - 01/05/2025 10:02 AM EST Phoned pt and spoke with him. Dr Guevara reviewed the results of his nuclear medicine sestamibi scan and it was negative. Dr. Guevara would still like Mr. Hu to consider surgery. Pt will talk to his family and get back to us. Christal Lau RN documented in this encounterUniversity Hospitals Health System02-18-2025 History of Present illness Narrative* Jeffy Yancey, [...] PATIENT PRESENTS WITH AN IMPLANTABLE OR ATTACHED SLIDER ASSEMBLER: Yes Dexcom CREATININE: Creatinine Date Value Ref [...] radiation safety can be found usingthis link: [email or web address] 20Diagnostic%20Nuclear%20Medicine%20Procedures.pdf SIGNATURE: RICHARD Miller) PATIENT NAME: Federico Hu DATE: January 04, 2025 TIME: 11:06 AM PAGER/CONTACT #: documented in this encounterUniversity Hospitals Health System02-18-2025 NoteHNO ID: [id number] Author: JEFFY YANCEY RT (R) Service: Nuclear [...] PATIENT PRESENTS WITH AN IMPLANTABLE OR ATTACHED SLIDER ASSEMBLER: Yes Dexcom CREATININE: Creatinine Date Value Ref [...] 2:15PM. PATIENT DISCHARGED TO: Ambulatory patient, left [place] department area. Is this a therapy: No A Diagnostic radioactive procedure has taken place, with no further precautions necessary other than routine body substance precautions. More information regarding radiation safety can be found using this link: [email or web address] 20Diagnostic%20Nuclear%20Medicine%20Procedures.pdf SIGNATURE: RT Angela(R) PATIENT NAME: Federico Hu DATE: January 04, 2025 TIME: 11:06 AM PAGER/CONTACT #:[facility]02-17-2025 Telephone encounter Note* Telephone Encounter - Daxa Morin LPN - 01/03/2025 4:40 PM EST Patient notified of below recommendation, transferred call to schedule. Daxa Morin LPN [facility]02-17-2025 Miscellaneous Notes* Telephone Encounter - Daxa Morin [...] MEDICINE Nithin Acevedo MD documented in this encounterUniversity Hospitals Health System02-17-2025 Telephone encounter Note * Telephone Encounter - Daxa Morin LPN - 01/03/2025 4:35 PM EST ----- Message from Nithin Acevedo MD sent at 01/03/2025 4:03 PM EST ----- Refer to pulmonary. Abnormal CT scan. Dyspnea. Cough. [facility]02-17-2025 Telephone encounter Note* Telephone Encounter - Nithin Acevedo MD - 01/03/2025 4:03 PM EST ASSESSMENT/PLAN: 1. Abnormal CT scan, chest - ICD9: 793.2, ICD10: R93.89 (primary diagnosis) - CONSULT TO PULMONARY MEDICINE 2. Chronic cough - ICD9: 786.2, ICD10: R05.3 - CONSULT TO PULMONARY MEDICINE 3. Dyspnea, unspecified type - ICD9: 786.09, ICD10: R06.00 - CONSULT TO PULMONARY MEDICINE Nithin Acevedo MD [facility]02-13-2025 History of Present illness Narrative* Ludwin Lomax [...] PATIENT PRESENTS WITH AN IMPLANTABLE OR ATTACHED SLIDER ASSEMBLER: No RADIOLOGY DEPARTMENT: CT; Exam(s) Completed: Chest PERIPHERAL IV DATA: Not applicable SIGNED BY: RT Ab(Kenny) December 30, 2024 12:47 PM documented in this encounterUniversity Hospitals Health System02-13-2025 NoteHNO ID: [id number] Author: LUDWIN LOMAX RT(R) Service: ? Author Type: Machine Specialist Type: Progress Notes Filed: 12/30/2024 12:47 Note [...] PATIENT PRESENTS WITH AN IMPLANTABLE OR ATTACHED SLIDER ASSEMBLER: No RADIOLOGY DEPARTMENT: CT; Exam(s) Completed: Chest PERIPHERAL IV DATA: Not applicable SIGNED BY: RT Ab(R) December 30, 2024 12:47 [facility]01-30-2025 NoteHNO ID: [id number] Author: CHRISTAL PALOMARES APRN.CNP Service: ? Author Type: Nurse Practitioner Type: Progress Notes Filed: 12/16/2024 16:05 Note Text: ABSTRACT Renal function continues to decrease and serum calcium increasing. Decision made to stop SGLT2i; Will recheck labs in 2 weeks. Plan of care discussed with Dr. Richter. Christal Palomares APRN.CNPElyria Memorial Hospital01-30-2025 History of Present illness Narrative* Christal Palomares APRN.CNP - 12/16/2024 3:58 PM EST ABSTRACT Renal function continues to decrease and serum calcium increasing. Decision made to stop SGLT2i; Will recheck labs in 2 weeks. Plan of care discussed with Dr. Richter. Christal Palomares APRN.CNP documented in this encounterUniversity Hospitals Health System01-27-2025 NoteHNO ID: [id number] Author: HOMER CARPIO APRN.RAJWINDER, PhD Service: ? Author Type: Nurse Practitioner Type: Progress Notes Filed: 12/22/2024 09:55 Note Text: [facility] Federico Hu is a 89 year old male patient. Reason for visit: Consult, referred by Dr. Acevedo for possible mgus. My recommendations to the consult requesting physician are communicated via the shared electronic medical record or US mail. Baseline assessment on initial diagnosis date 11/2024 IMWG criteria, [place] Journal of Haematology 121: 749-57, 2003, update in: Herbie et al. 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 M-Protein Concentration <=0.00 g/dL 0.00 0.00 SPE Staff Review Reviewed by Mauro Soria MD, Ph.D ([id number]) Reviewed by Mauro Soria MD, Ph.D ([id number]) Resulting Agency [facility] CCM Narrative Performed by: [facility] Serum electrophoresis test was performed using the [employer] V8 NEXUS capillary electrophoresis method. Results obtained with different assay methods or kits cannot be used interchangeably. Specimen Collected: 12/13/24 3:21 PM EST Last Resulted: 12/15/24 8:40 AM EST [place] [facility], Serum 3.3 - 19.4 mg/L 74.1 High 72.8 High CM Comment: Rarely, increased serum free light chains levels may not be detected or accurately quantified due to prozone phenomenon or in high viscosity samples using this immunoturbidimetric assay. Correlation with other laboratory results and clinical findings is recommended. The [place] [facility] Light Chain was performed using the [...] L Chronic diastolic CHF (congestive heart failure) ([facility]) 07/22/2018 CKD (chronic kidney disease) stage 4, GFR 15-29 ml/min ([facility]) 07/22/2018 CORONARY ATHEROSCLER UNSPEC VESSEL 01/03/2009 2 [...] 09/2003 PAST SURGICAL HISTO (more content not included)...[facility] 12-13-2024 History of Present illness Narrative* Homer Carpio APRN.RAJWINDER, PhD - 12/13/2024 2:50 PM EST Images from the original note were not included. [facility] Federico Hu is a 89 year old male patient. Reason for visit: Consult, referred by Dr. Acevedo for possible mgus. My recommendations to the consult requesting physician are communicated via the shared electronic medical record or US mail. Baseline assessment on initial diagnosis date 11/2024 IMWG criteria, [place] Journal of Haematology 121: 749-57, 2003, update in: Durie et al. Leukemia 20: 1467-73, 2006 and at IMW meeting 2010 no clone identified Related Organ or Tissue Involvement (CRAB) or other Myeloma Defining Event (MDE): none Monoclonal proteins at diagnosis: M-Protein Location CM Comment: Not Applicable. M-Protein Concentration <=0.00 g/dL 0.00 0.00 SPE Staff Review Reviewed by Mauro Soria MD, Ph.D ([id number]) Reviewed by Mauro Soria MD, Ph.D ([id number]) Resulting Agency [facility] Narrative Performed by: [facility] Serum electrophoresis test was performed using the [employer] V8 NEXUS capillary electrophoresis method. Results obtained with different assay methods or kits cannot be used interchangeably. Specimen Collected: 12/13/24 3:21 PM EST Last Resulted: 12/15/24 8:40 AM EST [place] [facility], Serum 3.3 - 19.4 mg/L 74.1 High 72.8 High CM Comment: Rarely, increased serum free light chains levels may not be detected or accurately quantified due to prozone phenomenon or in high viscosity samples using this immunoturbidimetric assay. Correlation with other laboratory results and clinical findings is recommended. The [place] [facility] Light Chain was performed using the [...] L Chronic diastolic CHF (congestive heart failure) ([facility]) 07/22/2018 CKD (chronic kidney disease) stage 4, GFR 15-29 ml/min ([facility]) 07/22/2018 CORONARY ATHEROSCLER UNSPEC VESSEL 01/03/2009 2 [...] mouth once daily. Blood-Glucose Meter,Continuous (DEXCOM G7 GROOVER OPERATOR) misc Dx: E11.49. Insulin: Yes. Use to [...] 5.27 09/11/2017 4.60 05/27/2016 Test sent to [facility]. Abs Neut (ANC) (k/uL) Date Value 09/11/2017 2.79 Hemoglobin (g/dL) Date Value 02/22/2022 13.0 06/01/2021 15.1 05/29/2020 15.1 05/12/2019 14.6 09/21/2018 12.3 02/19/2018 11.8 01/05/2018 12.8 09/11/2017 12.6 05/27/2016 Test sent to [facility]. Platelet Count (k/uL) Date Value 02/22/2022 130 06/01/2021 143 05/29/2020 139 05/12/2019 164 09/21/2018 141 02/19/2018 168 01/05/2018 150 09/11/2017 149 05/27/2016 Test sent to [facility]. Glucose Date Value 11/05/2024 126 mg/dL 09/01/2024 [...] M-Protein Concentration (g/dL) Date Value 02/22/2022 0.00 [place] [facility], Serum (mg/L) Date Value 09/01/2024 72.8 [...] SV, et al., The Lancet. Oncol. Sep 2014;15(12):c233-f901.) S-Sixty percent or greater clonal plasma cells, [...] have this done on December 30 at [facility] I will call him with results thereafter All questions were answered Homer Carpio PhD, MSN, COSTUMED CHARACTER-BC, AOCN, BMTCN, FAAN, FAPO Hematologic Oncology and Blood Disorders [facility] [place] [address] Email: * Otoniel Hoyos LPN - 12/13/2024 2:38 PM EST Additional intake questions: Has the patient had fever, nausea, vomiting, diarrhea, constipation, fatigue for > 1 week? Yes, fatigue and Provider Notified Does the patient have a decreased appetite? No Does patient want to see a Manufacturing Specialist? No (yes to any of above refer patient to schedulers for dietitian appointment) ) Does patient have any new or increased numbness or tingling of extremities? No Is patient interested in fertility information? NA Does patient need any prescription refills? No Does patient have an advanced directive in place? No documented in this encounterUniversity Hospitals Health System01-27-2025 NoteHNO ID: [id number] Author: OTONIEL HOYOS LPN Service: ? Author Type: LICENSED NURSE Type: Progress Notes Filed: 12/22/2024 09:55 Note Text: Additional intake questions: Has the patient had fever, nausea, vomiting, diarrhea, constipation, fatigue for > 1 week? Yes, fatigue and Provider Notified Does the patient have a decreased appetite? No Does patient want to see a Manufacturing Specialist? No (yes to any of above refer patient to schedulers for dietitian appointment) ) Does patient have any new or increased numbness or tingling of extremities? No Is patient interested in fertility information? NA Does patient need any prescription refills? No Does patient have an advanced directive in place? No Electronically Signed By: ERIKA [facility] History and physical note* Kristin Guevara MD - 12/13/2024 12:50 PM EST [facility] Endocrine Metabolism [place] [facility] Kristin Guevara M.D. [address] [facility] [place] [address] Name: Federico Hu [facility] Number: [id number] Date of Service: December 13, 2024 Federico Hu has been referred by Dr. Richter for evaluation of hyperparathyroidism. My assessment and recommendation for this patient will be communicated via shared medical records. Thank you for referring this patient to me. As you know, he is an 89 year old man who was found to have elevated calcium levels during a consult with his payment manager. Subsequently biochemical workupalso revealed an elevated [...] any questions or concerns. Kristin Guevara MD [facility]01-27-2025 History and physical note* Kristin Guevara MD - 12/13/2024 12:50 PM EST [facility] Endocrine Metabolism [place] [facility] Kristin Guevara M.D. [address] [address] Name: Federico Hu Clinic Number: [id number] Date of Service: December 13, 2024 Federico Hu has been referred by Dr. Richter for evaluation of hyperparathyroidism. My assessment and recommendation for this patient will be communicated via shared medical records. Thank you for referring this patient to me. As you know, he is an 89 year old man who was found to have elevated calcium levels during a consult with his payment manager. Subsequently biochemical workupalso revealed an elevated [...] concerns. Kristin Guevara MD documented in this encounterUniversity Hospitals Health System01-27-2025 Instructions* Patient Instructions* Teresa Pinon MA - 12/13/2024 12:19 PM EST Thank you for choosing the [facility] Department of Endocrinology, Diabetes and Metabolism. Did you know that you need to call 48 hours in advance of your scheduled visit, if you are unable to make your appointment? The Endocrinology and Metabolism [place] thanks you for your commitment, because patients not showing to their appointment results in a lost opportunity for patients to receive [facility] health care at the [facility]. To Cancel an appointment, please choose one of the following: - Call the Appointment Call Center at [phone] - From [employer], Go to Appointments - Cancel Appts If cancelling, consider your need to reschedule to prevent further delays in your care. To Schedule an appointment, please choose one of the following: - Call the Appointment Call Center at [phone] - From [employer], Go to Appointments - Request an Appt documented in this encounterUniversity Hospitals Health System01-15-2025 Telephone encounter Note * Telephone Encounter - [...] Hyperparathyroid; Hypercalcemia PATIENT DEMOGRAPHICS Name: Federico Hu [facility] [id number] : 1935 AGE: [age] year old Contact Numbers: Home: (home) Work: There is no work phone number on file. PATIENT PHYSICIAN INFORMATION Referring Doctor: Dr. Velia Richter, DO Address: Phone: On Line Csr: N/A Address: Phone: PCP: Nithin Acevedo [address] [place] [address] PAST TREATMENT Office notes: SEE EPIC Medications: [...] (H) High (L) Low Imaging Reports: SEE [facility] CD of Images: SEE [facility] FNA: no FNA Slides: N/A Has the patient ever had thyroid or parathyroid surgery before: No Operative Reports: NONE AVAILABLE Pathology Reports: NONE AVAILABLE [facility]01-15-2025 Miscellaneous Notes* Telephone Encounter - Jazlyn Carmen [...] Hyperparathyroid; Hypercalcemia PATIENT DEMOGRAPHICS Name: Federico Hu [facility]#: [id number] : 1935 AGE: [age] year old Contact Numbers: Home: (home) Work: There is no work phone number on file. PATIENT PHYSICIAN INFORMATION Referring Doctor: Dr. Velia Richter DO Address: Phone: On Line Csr: N/A Address: Phone: PCP: Nithin Acevedo [address] [place] [address] PAST TREATMENT Office notes: SEE EPIC Medications: [...] (H) High (L) Low Imaging Reports: SEE [facility] CD of Images: SEE [facility] FNA: no FNA Slides: N/A Has the patient ever had thyroid or parathyroid surgery before: No Operative Reports: NONE AVAILABLE Pathology Reports: NONE AVAILABLE documented in this encounterUniversity Hospitals Health System01-15-2025 Telephone encounter Note * Telephone Encounter - Viet López MA - 12/01/2024 9:28 AM EST Form completed and faxed with office note/rx Viet López MA [facility]01-15-2025 Miscellaneous Notes* Telephone Encounter - Viet López [...] print rx and will fax to DME [employer] [facility]. Viet López MA * Telephone Encounter - Viet López MA - 11/24/2024 8:33 AM EST Called patient and advised with medicare continuous monitors and supplies have to go to DME company. Normally use [employer] [facility] takes all medicare so patient aware [...] .Please advise the patient. documented in this encounterUniversity Hospitals Health System01-14-2025 Telephone encounter Note * Telephone Encounter - Viet López MA - 11/30/2024 3:20 PM EST Spoke to patient who would like to try and get dexcom. Called to go over information and she is aware will fax oders to [employer] who will do PA if needed. Please print rx and will fax to DME [employer]. Viet López MA [facility]01-11-2025 Telephone encounter Note* Telephone Encounter - Daxa Morin LPN - 11/27/2024 9:11 AM EST Info faxed to [employer]. Daxa Morin LPN [facility]01-11-2025 Miscellaneous Notes* Telephone Encounter - Daxa Morin LPN - 11/27/2024 9:11 AM EST Info faxed to [employer]. Daxa Morin LPN * Telephone Encounter - Jacqueline Mir LPN - 11/26/2024 10:20 AM EST Spoke with [employer] and patient's settings were 12-6 cm H2O. Last sleep study was completed at [facility] in 2016. There has been no recent documentation of CPAP use. Patient will need an appointment so this can be discussed for insurance purposes. Patient notified and scheduled 11/26/24 at 1:20 pm. * Telephone Encounter - Nithin Acevedo MD - 11/25/2024 1:07 PM EST Request form from [employer] with settings. * Telephone Encounter - Geneva Valdez - 11/25/2024 11:08 AM EST Patient needs a new cpap Please contact [facility] [place] Ph. [phone] * Telephone Encounter - Bear Good RN - 11/23/2024 1:41 PM EST Pt reports his CPAP stopped working last night and he needs a new one. Asking pcp to send order to [facility] in [place]. Please advise patient. documented in this encounterUniversity Hospitals Health System01-10-2025 NoteHNO ID: [id number] Author: NITHIN ACEVEDO MD Service: ? Author Type: Physician Type: Progress Notes Filed: 11/27/2024 09:02 Note Text: This note was created using [employer]. 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 11/26/2024 Isabel People tell me that I snore No I wake up at night with shortness of breath or choking No People tell me I gasp, choke or snort while sleeping No Peop (more content not included)...[facility]01-10-2025 History of Present illness Narrative* Nithin Acevedo MD - 11/26/2024 4:59 PM EST This note was created using [employer]. Subjective Patient presents with: Recheck: is needing [...] He had been mainly following with our FIRST AID TEACHER, and it sounded like thiswas attempted in 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 Atrial Fibrillation ([facility]) S/P Cabg X 2 Rbbb (Right Bundle Branch Block) Encounter for Monitoring Anti-Arrhythmic Therapy Ckd (Chronic Kidney Disease) Stage 4, Gfr 15-29 Ml/Min ([facility]) Chronic Diastolic Chf (Congestive Heart Failure) ([facility]) 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 11/26/2024 Isabel People tell me that I snore No [...] up. Nithin Acevedo MD documented in this encounterUniversity Hospitals Health System01-10-2025 Telephone encounter Note * Telephone Encounter - Jacqueline Mir LPN - 11/26/2024 10:20 AM EST Spoke with [employer] and patient's settings were 12-6 cm H2O. Last sleep study was completed at [facility] in 2016. There has been no recent documentation of CPAP use. Patient will need an appointment so this can be discussed for insurance purposes. Patient notified and scheduled 11/26/24 at 1:20 pm. [facility]01-09-2025 Telephone encounter Note* Telephone Encounter - Nithin Acevedo MD - 11/25/2024 1:07 PM EST [place] [facility] [place]. [facility]01-09-2025 Telephone encounter Note* Telephone Encounter - Philippe Hull [place] M - 11/25/2024 11:08 AM EST Patient needs a new cpap Please contact [facility] [place] Ph. [phone] [facility] Work Phone: [phone] Telephone encounter Note* Telephone Encounter - Viet López MA - 11/24/2024 8:33 AM EST Called patient and advised with medicare continuous monitors and supplies have to go to [employer]. Normally use [employer] takes all medicare so patient aware will have to fax form and prescriptions than he will have to call to set account up. Patient will talk to and call back since he does like convince of going to local drug store. [employer] ([employer]) [facility]01-07-2025 Telephone encounter Note* Telephone Encounter - Zeny Mead - 11/23/2024 1:47 PM EST Patient is calling requesting PCP order the dexcom system for him .Please advise the patient. [facility]01-07-2025 Telephone encounter Note* Telephone Encounter - Bear Good RN - 11/23/2024 1:41 PM EST Pt reports his CPAP stopped working last night and he needs a new one. Asking pcp to send order to [facility] in [place]. Please advise patient. [facility]12-20-2024 NoteHNO ID: [id number] Author: OTF FUNK RN Service: ? Author Type: Registered Nurse Type: Progress Notes Filed: 11/08/2024 12:43 Note Text: Added to OTP on 11/05/24. The welcome packet has been mailed out and the patient will be contacted within 2 weeks. Otf Funk RN November 05, 2024 12:28 [facility]12-20-2024 History of Present illness Narrative* Otf Funk RN - 11/05/2024 12:28 PM EST Added to OTP on 11/05/24. The welcome packet has been mailed out and the patient will be contacted within 2 weeks. Otf Funk RN November 05, 2024 12:28 PM documented in this encounterUniversity Hospitals Health System12-20-2024 Instructions* Patient Instructions* Katherin Mckinnon, PLANNING DIRECTOR.FIRST AID TEACHER - 11/05/2024 11:51 AM EST For chafing/rash [...] review all the medicines you take, even mwru-wrp-srmmmuk medicines. As you get older, the way [...] have certain medical conditions. documented in this encounterUniversity Hospitals Health System12-20-2024 NoteHNO ID: [id number] Author: KATHERIN MCKINNON APRN.RAJWINDER Service: ? Author [...] PCP - General Katherin Mckinnon APRN.CNP as Stagecraft Teacher (Internal Medicine) [facility] watch guard gate-Dr. Strickland Geophysicist- Dr. Porras [facility] Medical/Family history review Reviewed and updated problem [...] 2 diabetes mellitus with neurological manifestations, controlled ([facility]) - ICD9: 250.60, ICD10: E11.49 - Control undetermined, due for labs - Continue current medications 4. Essential hypertension - ICD9: 401.9, ICD10: I10 - Controlled - Continue current medications - Recommend home blood pressure monitoring, to bring results to next visit - Encouraged sodium restriction, DASH or Mediterranean diet 5. CKD (chronic kidney disease) stage 4, GFR 15-29 ml/min ([facility]) - ICD9: 585.4, ICD10: N18.4 - eGFR: 18 Worsening - Counseled on avoiding NSAIDs, adequate hydration - Counseled on low sodium diet - Follow up with kidney medicine 6. Screening for depression - ICD9: V79.0, ICD10: Z13.31 - DEPRESSION SCREENING 7. Encounter for screening examination for other mental health and behavioral disorders - ICD9: V79.8, ICD10: Z13.39 - ANXIETY SCREENING Katherin Mckinnon APRN.RAJWINDERElyria [facility]12-[facility] History of Present illness Narrative* Katherin Mckinnon [...] PCP - General Katherin Mckinnon APRN.CNP as Stagecraft Teacher (Internal Medicine) [facility] watch guard gate-Dr. Strickland Geophysicist- Dr. Porras [facility] Medical/Family history review Reviewed and updated problem [...] kidney disease) stage 4, GFR 15-29 ml/min ([facility]) - ICD9: 585.4, ICD10: N18.4 - eGFR: 18 Worsening - Counseled on avoiding NSAIDs, adequate hydration - Counseled on low sodium diet - Follow up with kidney medicine 6. Screening for depression - ICD9: V79.0, ICD10: Z13.31 - DEPRESSION SCREENING 7. Encounter for screening examination for other mental health and behavioral disorders - ICD9: V79.8, ICD10: Z13.39 - ANXIETY SCREENING Katherin Mckinnon APRN.FIRST AID TEACHER documented in this encounterUniversity Hospitals Health System12-20-2024 History of Present illness Narrative* Sangita Arguello [...] PATIENT PRESENTS WITH AN IMPLANTABLE OR ATTACHED SLIDER ASSEMBLER: No RADIOLOGY DEPARTMENT: Ultrasound PERIPHERAL IV DATA: Not applicable SIGNED BY: Sangita Arguello RDMS RVT November 05, 2024 11:25 AM documented in this encounterUniversity Hospitals Health System12-20-2024 NoteHNO ID: [id number] Author: SANGITA ARGUELLO RDMS Service: ? Author Type: Wool Carder Type: Progress Notes Filed: 11/05/2024 11:25 Note [...] PATIENT PRESENTS WITH AN IMPLANTABLE OR ATTACHED SLIDER ASSEMBLER: No RADIOLOGY DEPARTMENT: Ultrasound PERIPHERAL IV DATA: Not applicable SIGNED BY: Sangita Arguello RDMS RVT November 05, 2024 11:25 [facility]12-20-2024 NotePatient Outreach (KIDMMN) FEDERICO HU ([id number]) 1935 M Date Time Provider Department 11/05/24 [...] Date Reviewed: 11/05/2024 Reviewed by: Katherin Mckinnon, PLANNING DIRECTOR.FIRST AID TEACHER - Fully Assessed Reason for Visit: Added [...] 11/05/2024 Encounter Status:Closed by OTF FUNK on 11/08/24[facility]12-11-2024 Telephone encounter Note* Telephone Encounter - Poppy [...] likely need to complete new application for Eliquis-[place] Francois for next year, but will let this Sw know. [facility]12-11-2024 Miscellaneous Notes* Telephone Encounter - Poppy Elise [...] likely need to complete new application for Eliquis-[place] Francois for next year, but will let this Sw know. documented in this encounterUniversity Hospitals Health System12-06-2024 NoteHNO ID: [id number] Author: CHRISTAL PALOMARES APRN.FIRST 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 Author Type: Nurse Practitioner Type: Progress Notes Filed: 10/31/2024 14:44 Note Text: [facility] SERVICE DATE: 10/22/2024 [...] visit. Either the patient or their legal marketing representative has been informed of the risks [...] L Chronic diastolic CHF (congestive heart failure) ([facility]) 07/22/2018 CKD (chronic kidney disease) stage 4, GFR 15-29 ml/min ([facility]) 07/22/2018 CORONARY ATHEROSCLER UNSPEC VESSEL 01/03/2009 2 [...] unit/mL (3 mL) Injec (more content not included)...[facility]11-11-2024 Telephone encounter Note* Telephone Encounter - Jazlyn Carmen - 09/27/2024 3:12 PM EST Contacted pt in regards to scheduling PTH consult with Dr. Guevara, no answer. Left vm with office number to call to get scheduled; referred by Dr. Velia Richter DO [facility]11-11-2024 Miscellaneous Notes* Telephone Encounter - Jazlyn Carmen - 09/27/2024 3:12 PM EST Contacted pt in regards to scheduling PTH consult with Dr. Guevara, no answer. Left vm with office number to call to get scheduled; referred by Dr. Velia Richter DO documented in this encounterUniversity Hospitals Health System10-16-2024 Instructions* Patient Instructions* Velia Richter DO - 09/01/2024 1:45 PM EDT Stop Vit D and MVI Labs today 3. US kidney 4. Labs before your next visit documented in this encounterUniversity Hospitals Health System10-16-2024 History of Present illness Narrative* Velia Richter [...] NSAIDS Medications Reviewed Social History Lives in [place], [place]-2 [place] away ([place]), 1 son Social [...] with Christal Richter DO documented in this encounterUniversity Hospitals Health System10-03-2024 Telephone encounter Note * Telephone Encounter - [...] Geneva Hull August 19, 2024 10:05 AM [facility]10-03-2024 Miscellaneous Notes* Telephone Encounter - Geneva Valdez [...] 19, 2024 10:05 AM documented in this encounterUniversity Hospitals Health System09-27-2024 Telephone encounter Note * Telephone Encounter - Kev Mauricio MA - 08/13/2024 1:37 PM EDT Pt notified. [facility]09-27-2024 Miscellaneous Notes* Telephone Encounter - Kev Mauricio MA - 08/13/2024 1:37 PM EDT Pt notified. * Telephone Encounter - Kev Mauricio MA - 08/13/2024 10:36 AM EDT Received from [employer] Patient Assistance Program, 100U/mL, # 1 box ( 5x3 mL prefilled syringes. Lot# [id number], Expiration date 05/16/2026. Patient notified to apple picker medication. Physician Initial: VV Medications received and verified on the date indicated above documented in this encounterUniversity Hospitals Health System09-27-2024 Telephone encounter Note * Telephone Encounter - Kev Mauricio MA - 08/13/2024 10:36 AM EDT Received from [employer] Patient Assistance Program, 100U/mL, # 1 box ( 5x3 mL prefilled syringes. Lot# [id number], Expiration date 05/16/2026. Patient notified to apple picker medication. Physician Initial: VV Medications received and verified on the date indicated above [facility]09-24-2024 Telephone encounter Note* Telephone Encounter - Kev Mauricio MA - 08/10/2024 1:33 PM EDT Patient notified, verbalized understanding. Transferred to schedulers. [facility]09-24-2024 Miscellaneous Notes* Telephone Encounter - Kev Mauricio MA - 08/10/2024 1:33 PM EDT Patient notified, verbalized understanding. Transferred to schedulers. * Telephone Encounter - Katherin Mckinnon APRN.CNP - 08/10/2024 1:09 PM EDT Please let the patient know his labs indicated kidney function is significantly worse, he will needto see a payment manager. HgbA1c was 6.4 which is excellent. The rest of his labs looked good Katherin Mckinnon APRN.CNP documented in this encounterUniversity Hospitals Health System09-24-2024 Telephone encounter Note * Telephone Encounter - Katherin Mckinnon APRN.CNP - 08/10/2024 1:09 PM EDT Please let the patient know his labs indicated kidney function is significantly worse, he will needto see a payment manager. HgbA1c was 6.4 which is excellent. The rest of his labs looked good Katherin Mckinnon APRN.FIRST AID TEACHER [facility]09-17-2024 Telephone encounter Note* Telephone Encounter - Nithin Acevedo MD - 08/03/2024 7:50 PM EDT Updated. [facility]09-17-2024 Miscellaneous Notes* Telephone Encounter - Nithin Acevedo MD - 08/03/2024 7:50 PM EDT Updated. * Telephone Encounter - Ciera Conner LPN - 08/03/2024 11:36 AM EDT Rec'd 5 boxes of tresiba U200 from [employer] lot number is [id number] and exp date is 01/14/2026 Also rec'd ozempic 1X3ml 4PCS NF 1X3ML prefilled 4mg/3ml. Lot number is [id number] and exp date is 03/16/27 Called pt and per spouse he is still taking the ozempic 1mg subcutaneously weekly. This is not on med list can you update this and add it? documented in this encounterUniversity Hospitals Health System09-17-2024 Telephone encounter Note * Telephone Encounter - Ciera Conner LPN - 08/03/2024 11:36 AM EDT Rec'd 5 boxes of tresiba U200 from [employer] lot number is [id number] and exp date is 01/14/2026 Also rec'd ozempic 1X3ml 4PCS NF 1X3ML prefilled 4mg/3ml. Lot number is [id number] and exp date is 03/16/27 Called pt and per spouse he is still taking the ozempic 1mg subcutaneously weekly. This is not on med list can you update this and add it? [facility]09-11-[facility] History of Present illness Narrative* Katherin Mckinnon, PLANNING DIRECTOR.FIRST AID TEACHER - 07/28/2024 11:00 AM EDT CC: Patient [...] 10/13/2023 6.7 05/09/2023 6.5 Afib- Managed by watch guard gate Dr. Strickland. 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 cholecalciferol, vitamin [...] 2 diabetes mellitus with neurological manifestations, controlled ([facility]) - ICD9: 250.60, ICD10: E11.49 (primary diagnosis) - Control undetermined, due for labs - Continue current medications - HEMOGLOBIN A1C 2. CKD (chronic kidney disease) stage 4, GFR 15-29 ml/min ([facility]) - ICD9: 585.4, ICD10: N18.4 - eGFR: [...] plan. Katherin Mckinnon APRN.RAJWINDER documented in this encounterUniversity Hospitals Health System09-06-2024 Telephone encounter Note * Telephone Encounter - [...] Morelos RN July 23, 2024 4:43 PM [facility]09-06-2024 Miscellaneous Notes* Telephone Encounter - Deisi Morelos [...] 23, 2024 4:43 PM documented in this encounterUniversity Hospitals Health System07-01-2024 Telephone encounter Note * Telephone Encounter - Kev Mauricio MA - 05/17/2024 2:24 PM EDT Picked up by patient's sister in law Latesha [facility]07-01-2024 Miscellaneous Notes* Telephone Encounter - Kev Mauricio [...] up. Gretchen Nath LPN documented in this encounterUniversity Hospitals Health System06-27-2024 Telephone encounter Note * Telephone Encounter - Gretchen Nath LPN - 05/13/2024 11:24 AM EDT Patient assistance medications have been received 1 box of flexpens phoned patient and notified him of patient assistance medication that has arrived and he can pick these up. Gretchen Nath LPN [facility]06-17-2024 Telephone encounter Note* Telephone Encounter - Ciera Conner LPN - 05/03/2024 3:17 PM EDT This was signed and picked up by pt's sister in law. Pts spouse is here but in the car. [facility]06-17-2024 Miscellaneous Notes* Telephone Encounter - Ciera Conner LPN - 05/03/2024 3:17 PM EDT This was signed and picked up by pt's sister in law. Pts spouse is here but in the car. * Telephone Encounter - Ciera Conner LPN - 04/30/2024 1:46 PM EDT This is in the fridge on the left side. Pt's spouse notified this is ready for apple picker. * Telephone Encounter - Ciera Conner LPN - 04/30/2024 10:09 AM EDT Rec'd meds from [employer] Tresiba u200 5 boxes lot number [id number] exp date is 05/16/26 Also 4 boxes of ozempic 4mg/3ml lot number is [id number] and ext date 09/16/2026. documented in this encounterUniversity Hospitals Health System06-14-2024 Telephone encounter Note * Telephone Encounter - Ciera Conner LPN - 04/30/2024 1:46 PM EDT This is in the fridge on the left side. Pt's spouse notified this is ready for apple picker. [facility]06-14-2024 Telephone encounter Note* Telephone Encounter - Ciera Conner LPN - 04/30/2024 10:09 AM EDT Rec'd meds from [employer] Tresiba u200 5 boxes lot number [id number] exp date is 05/16/26 Also 4 boxes of ozempic 4mg/3ml lot number is [id number] and ext date 09/16/2026. [facility]-30-[facility] Telephone encounter Note* Telephone Encounter - Kev aMuricio MA - 04/15/2024 2:04 PM EDT Requested Prescriptions Pending Prescriptions Disp Refills doxazosin (CARDURA) 2 mg tablet 90 tablet 3 Sig: Take 1 tablet by mouth daily at bedtime. Date of last office visit in primary care: 10/13/2023 Date of next office visit in primary care: Visit date not found Please advise. Thank you. Kev Mauricio MA. [facility]05-30-2024 Miscellaneous Notes* Telephone Encounter - Kev Mauricio [...] in primary care: Visit date not found [facility] Please advise. Thank you. Chen Reeder. documented in this encounterUniversity Hospitals Health System05-30-2024 Telephone encounter Note * Telephone Encounter - [...] in primary care: Visit date not found [facility] Please advise. Thank you. Chen Reeder. [facility]05-11-2024 Discharge summary Author Jerry Jimenes [facility] March 27, 2024 2:50pm Note Date/Time March 27, 2024 12:47 pm [facility] Medical Records Department [address] [place] [address] Emergency Department Summary 03/27/24 MR#: [id number] Acct: [id number] Name: MELISSADEVINFEDERICO Rep #:[id number] : 1935 88 From: Jerry Jimenes MD [...] fevers, chills, abdominal pain, nausea, and vomiting. [facility] <ANSELMO Kenney - Last Filed: 03/27/24 14:46> [facility] Medical History Afib CAD (coronary [...] Ox 97 Oxygen Delivery Method Room Air [facility] <ANSELMO Kenney - Last Filed: 03/27/24 14:46> [facility] Narrative Medical decision making narrative: Patient presenting [...] 14:27 EDT Reading Location ID and State: [facility] / [place] , Service support , <Jerry Jimenes MD [...] the patient meritsoutpatient treatment. He has a border measurer with whom he can follow-up. They areto [...] your Primary Care Provider. Call [facility] ([phone]) or report to the closest Emergency Room. Call 911 if necessary. 03/27/24 1450 <Electronically signed by Jerry Jimenes MD> Cosigner Signature (if applicable): 03/27/24 1446 <Electronically signed by Christina BRIONES> CC: Dr. Nihtin Acevedo MD ~ Signed [facility] Work Phone: [phone]) 465-525805-11-2024 History of Present illness Narrative* Sujata Begum APRN.FIRST AID TEACHER - 03/27/2024 12:17 PM EDT Patient came [...] caregiver will take him documented in this encounterUniversity Hospitals Health System03-21-2024 Miscellaneous Notes* Telephone Encounter - Ciera Conner LPN - 02/05/2024 1:52 PM EDT Spouse picked this up. * Telephone Encounter - Ciera Conner LPN - 02/04/2024 4:23 PM EDT Pr spouse notified. * Telephone Encounter - Ciera Conner LPN - 02/04/2024 11:23 AM EDT Rec'd one box of novolog flex pen. Lot number [id number] Exp date 04/16/2026. documented in this encounterUniversity Hospitals Health System03-07-2024 Miscellaneous Notes* Telephone Encounter - Ciera Conner LPN - 01/22/2024 4:20 PM EST Pt's spouse has picked up his tresiba and ozempic. She reports pts blood sugars have been running 120-130 fasting in the am. He has not been taking novalog. Pt has appt with RN PROCEDURE 04/13/24. There are fasting labs and urine test to complete about a week before. * Telephone Encounter - Ciera Conner LPN - 01/22/2024 12:32 PM EST Called [employer]. The novalog is in process of being shipped. Called pt and spouse says he doesn't take the novalog any longer. * Telephone Encounter - Poppy Elise MSW - 01/22/2024 11:41 AM EST Sw spoke with [employer] and they do not know what happened with patient novolog. Novolog rep asks that nursing staff would call with packing slip information to see if there is a number on that they can figure out what happened with novolog shipment. [employer] ph. [phone]. * Telephone Encounter - Ciera Conner LPN - 01/22/2024 10:43 AM EST Rec'd from [employer] 5 boxes of tresiba lot number [id number] exp date 03/16/2026 4 boxes of ozempic 4mg lot number [id number] and exp date 08/16/2026. documented in this encounterUniversity Hospitals Health System03-07-2024 Miscellaneous Notes* Telephone Encounter - Poppy Elise MSW - 01/22/2024 12:[address] Acevedo note 01/22/24 in regards to [employer] PAP medication assistance for ozempic, novolog, and tresiba. * Telephone Encounter - Poppy Elise MSW - 01/21/2024 2:49 PM EST Claude noted patient approval through [employer] for Tresiba,Novolog, and Ozempic. Claude will keep this note open until medications are received by clinic, in case need to check on shipping status of medications and any other approval of application issues. documented in this encounterUniversity Hospitals Health System02-29-2024 Miscellaneous Notes* Telephone Encounter - Ciera Conner LPN - 01/15/2024 3:18 PM EST Rec'd fax from [employer] for 2023 pt's ID [id number]. documented in this [facility]12-20-2023 Miscellaneous Notes* Telephone Encounter - Poppy Elise MSW - 11/05/2023 11:36 AM EST Sw received [employer] application back from patient for Tresiba, Novolog, [...] is returned to office. documented in this encounterUniversity Hospitals Health System12-07-2023 Miscellaneous Notes* Telephone Encounter - Ciera Conner LPN - 10/23/2023 2:13 PM EST This was picked up today. Also reminded to complete the pt assistance form when she gets it for 2023. CLAUDE mailed to pts home 10/22/23. * Telephone Encounter - Ciera Conner LPN - 10/16/2023 2:25 PM EST This is ready for apple picker in the fridge on the left side. Pts spouse notified. * Telephone Encounter - Ciera Conner LPN - 10/16/2023 11:26 AM EST Rec'd 4 boxes of ozempic 1 mg/3ml (4mg/3 ml pen). Lot number is [id number] Exp date 03/16/2026. documented in this encounterUniversity Hospitals Health System12-06-2023 Miscellaneous Notes* Telephone Encounter - Poppy Elise [...] not been taking novolog. documented in this encounterUniversity Hospitals Health System11-27-2023 History of Present illness Narrative* Seven, Katherin, ANDREINA.FIRST AID TEACHER - 10/13/2023 3:05 PM EST Federico Hu [...] as PCP - General Outside specialists seen: watch guard gate-Dr. Strickland Geophysicist- Dr. Porras [facility] Medical/Family history review Reviewed and updated problem [...] within the past 6 months Last Podiatry exam:20321} Patient's last HgA1C : Hemoglobin A1C (%) Date Value 11/15/2021 9.3 06/01/2021 8.0 Hemoglobin A1C (POCT) (%) Date Value 05/09/2023 6.5 06/12/2022 6.9 CKD: watch guard gate is monitoring, has been stable. He was started on Farxiga. Chronic CHF: stable. Chronic SOB with exertion, no worse than usual. No SOB at rest. No significantweight changes, PND, orthopnea. Anemia: watch guard gate is monitoring. Denies dizziness, lightheadedness, feeling faint, [...] - ICD9: 272.4, ICD10: E78.5 Monitored by watch guard gate. Continue with current medication 7. Essential hypertension [...] HIGH-DOSE) Katherin Amezcua APRN.CNP documented in this encounterUniversity Hospitals Health System11-27-2023 Instructions* Patient Instructions* Katherin Amezcua APRN.CNP - [...] review all the medicines you take, even slsn-zvs-yryfjam medicines. As you get older, the way [...] have certain medical conditions. documented in this encounterUniversity Hospitals Health System08-30-2023 Miscellaneous Notes* Telephone Encounter - Ciera Conner LPN - 07/16/2023 9:37 AM EDT This was picked up 07/15/23. * Telephone Encounter - Ciera Conner LPN - 07/11/2023 11:40 AM EDT Pt's spouse notified. * Telephone Encounter - Ciera Conner LPN - 07/11/2023 10:30 AM EDT Rec'd 4 boxes of ozempic 4mg /3ml. Lot number [id number] exp date 11/16/2025. documented in this encounterUniversity Hospitals Health System08-01-2023 Miscellaneous Notes* Telephone Encounter - Ciera Conner [...] pt's spouse that this is available for apple picker. * Telephone Encounter - Ciera Conner LPN - 06/10/2023 10:54 AM EDT Rec'd 5 boxes of tresiba u200 from [employer] Lot number [id number] Exp date 05/16/2025 documented in this encounterUniversity Hospitals Health System07-07-2023 Miscellaneous Notes* Telephone Encounter - Kev Mauricio Ma - 05/23/2023 3:26 PM EDT Patient notified, verbalized understanding. will apple picker Friday. * Telephone Encounter - Ciera Conner LPN - 05/22/2023 10:51 AM EDT Rec'd 5 boxes of insulin degludec 3x3 prefilled pens 200ml Lot number is [id number] Exp date is 01/14/2025 documented in this encounterUniversity Hospitals Health System07-03-2023 Miscellaneous Notes* Telephone Encounter - Kev Mauricio Ma - 05/19/2023 11:17 AM EDT Aliza notified to [facility] pick[facility]. * Telephone Encounter - Geneva Paez Pss - 05/19/2023 9:34 AM EDT Federico Hu is calling Nithin Acevedo MD today to request license Placard prescription. Patient's will be in the office next week and can apple picker then. Please call her when done. Patient has been identified by name and birthdate. Duration of symptoms: N/A Person calling: spouse: Laiza Call patient at: at home [phone] (home) [phone] (cell) Was an appointment scheduled: No Closing statement: Geneva Paez Pss documented in this encounterUniversity Hospitals Health System06-22-2023 Miscellaneous Notes* Telephone Encounter - Ciera Conner LPN - 05/08/2023 8:47 AM EDT Refill order completed and faxed to [facility]. * Telephone Encounter - Ciera Conner LPN - 05/07/2023 1:19 PM EDT Rec'd via mail an automatic reorder for pts degludec. This needs completed for reorder. This will 10/16/23. documented in this encounterUniversity Hospitals Health System06-06-2023 Miscellaneous Notes* Telephone Encounter - Daxa Morin [...] advise. Zeny Kirby Pss documented in this encounterUniversity Hospitals Health System03-31-2023 Miscellaneous Notes* Telephone Encounter - Ciera Conner LPN - 02/14/2023 3:05 PM EDT Spouse picked up. * Telephone Encounter - Ciera Conner LPN - 02/12/2023 1:10 PM EDT This is in the fridge on the left side ready for apple picker. Pts spouse notified. She says she has an appt 02/14/23 and will get it them. * Telephone Encounter - Ciera Conner LPN - 02/12/2023 11:21 AM EDT Rec'd one box of novolog flex pen from [employer] Lot number is [id number] and exp date is 03/16/2025. documented in this encounterUniversity Hospitals Health System03-24-2023 Miscellaneous Notes* Telephone Encounter - Gretchen Elam LPN - 02/07/2023 11:51 AM EDT Received 5 boxes of insulin degludec 200 unit/ml. patient takes 64 units subcutaneously every morning. Patient notified and verbalized understanding that medication is here- insulin. Gretchen Elam LPN documented in this encounterUniversity Hospitals Health System03-02-2023 Miscellaneous Notes* Telephone Encounter - Ciera Conner LPN - 01/16/2023 12:21 PM EST Phone number given to pts spouse to call [facility] to check the status. Pharmacy says it should be set up with automatic refills. documented in this encounterUniversity Hospitals Health System03-02-2023 Miscellaneous Notes* Telephone Encounter - Ciera Conner LPN - 01/16/2023 12:10 PM EST This was picked up. * Telephone Encounter - Ciera Conner LPN - 01/08/2023 10:45 AM EST Pt spouse notified this is ready for apple picker in the fridge on the left side. She reports she will probably get this next week. * Telephone Encounter - Ciera Conner LPN - 01/08/2023 10:17 AM EST Rec'd 4 boxes of ozempic from [employer]. Lot number is [id number] Exp date is 06/16/2025 documented in this encounterUniversity Hospitals Health System01-23-2023 Miscellaneous Notes* Telephone Encounter - Irma Pop RPh - 12/09/2022 11:29 AM EST Will review application on when PharmD is in the office and refax at that time. Irma Pop PharmD, BCPS Primary Care Clinical Pharmacist * Telephone Encounter - Krissy Amor RN - 12/09/2022 9:29 AM EST Spouse (Aliza) calls to request Tresiba application be resubmitted to [employer] [facility]. She reports that the dosing instructions for Tresiba needs to be filled out and re-faxed. Krissy Amor RN documented in this encounterUniversity Hospitals Health System01-12-2023 Miscellaneous Notes* Telephone Encounter - Irma Pop RPh - 11/28/2022 9:25 AM EST Patient's dropped off envelope addressed to Ebonie Alston, with PAP application renewal for Ozempic, Tresiba, and Novolog for 2022. Application was completed, signed by PCP, and faxed to [employer] today. Called , Aliza, but unable to reach. LMOM letting her know paperwork was submitted today and to call [employer] in ~3 weeks if has not heard anything by then. Also informed her that since Adriana has signed off from [facility] with patient that any f/up questions regarding application should be directed to Dr. Acevedo's clinical staff. Future applications will also need to be completed by clinical staff. Application copy saved in [employer] drawer but original application sent to scanning. Irma Pop PharmD, BCPS Primary Care Clinical Pharmacist documented in this encounterUniversity Hospitals Health System12-16-2022 Miscellaneous Notes* Telephone Encounter - Ciera Conner LPN - 11/01/2022 2:58 PM EST Spouse picked up. * Telephone Encounter - Ciera Conner LPN - 11/01/2022 11:03 AM EST This is ready for apple picker in the fridge on the left side. Pts spouse notified. * Telephone Encounter - Adriana Garrison RPh - 11/01/2022 10:40 AM EST Med list updated to reflect supply received from [employer]. Keti Dubow, PharmD, BCACP Primary Care Clinical Pharmacist * Telephone Encounter - Ciera Conner LPN - 11/01/2022 10:27 AM EST Rec'd 3 boxes of tresiba 200 units/ml (U200) Lot number [id number]. Exp date is 11/16/2024. Please review documented in this encounterUniversity Hospitals Health System12-15-2022 Miscellaneous Notes* Telephone Encounter - HERNÁN Doyle - 10/31/2022 3:25 PM EST Sw tried call again to [facility]. Sw waited on hold and was not [...] 10/28/2022 3:09 PM EST Claude called [facility] [employer] again and waited extended time, no answer. Claude will try call another time. * Telephone Encounter - HERNÁN Doyle - 10/28/2022 11:25 AM EST Claude called [facility] to check on Tresiba shipment. No answer Sw waited 30+ minutes. Claude will try call again later. * Telephone Encounter - HERNÁN Doyle - 10/28/2022 10:04 AM EST Claude reviewed Dr. Acevdeo note from 10/03/21. Ryan Alston had sent Dr. Palacios office refill/reorder formfor tresiba and on 10/07/22 Ciera submitted refill reorder form for tresiba. Ciera, Can you verify that we have not received this shipment?? Claude can then check with [facility] to seewhat is going on with tresiba [...] as soon as possible. documented in this encounterUniversity Hospitals Health System11-19-2022 Miscellaneous Notes* Telephone Encounter - Nithin Acevedo MD - 10/05/2022 9:53 AM EST Form completed. * Telephone Encounter - Kev Mauricio Ma - 10/04/2022 1:19 PM EST Form printed - filled out and given to PCP for review. * Telephone Encounter - Adriana Garrison RPh - 10/04/2022 12:45 PM EST Refill form can be printed from website [email or web address] Once form is complete, it can be signed by provider and faxed. Of note, Patient will also need to renew for [employer] if he wishes to stay in the [...] He is almost out. documented in this encounterUniversity Hospitals Health System10-14-2022 Miscellaneous Notes* Telephone Encounter - Ciera Conner LPN - 08/30/2022 10:21 AM EDT Pt's spouse picked up. * Telephone Encounter - Ciera Conner LPN - 08/28/2022 11:17 AM EDT Pt spouse notified this is ready for apple picker. It is in the fridge on the left side. * Telephone Encounter - Ciera Conner LPN - 08/28/2022 10:33 AM EDT Rec'd 4 boxes of ozempic 4mg /3lm Lot number [id number] Exp date of 02/14/2025. documented in this encounterUniversity Hospitals Health System10-04-2022 History of Present illness Narrative* Adriana Garrison, [facility] - 08/20/2022 2:30 PM EDT Primary Care Pharmacy Visit CC (Reason for Consult): DM Goal: A1c<8% Last Collaborating Physician/PLANNING DIRECTOR Visit: 06/12/22 Federico Hu is a 86 [...] not present Adherence: denies missed doses. Pharmacy: [facility] in [place] Rx coverage: not addressed Affordability: no concerns at this time Diabetes supplies: [employer] System: not addressed ACTIVE PROBLEM LIST Obesity, Class Iii, Bmi 40-49.9 (Morbid Obesity) ([facility]) Type 2 Diabetes Mellitus With Neurological Manifestations, Controlled ([facility]) Essential Hypertension Coronary Atherosclerosis Hyperlipemia Bph With Obstruction/Lower Urinary Tract Symptoms Anemia Oa (Osteoarthritis) of Knee Atrial Fibrillation ([facility]) S/P Cabg X 2 Rbbb (Right Bundle Branch Block) Encounter for Monitoring Anti-Arrhythmic Therapy Ckd (Chronic Kidney Disease) Stage 4, Gfr 15-29 Ml/Min ([facility]) Chronic Diastolic Chf (Congestive Heart Failure) ([facility]) 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 Hypercalcemia Wound of Left Leg Recurrent Epistaxis PAST MEDICAL HISTORY Diagnosis Date Anal fissure 06/19/2006 Atrial fibrillation ([facility]) 05/13/2016 Benign 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 spironolactone (ALDACTONE) [...] time was 15 minutes. documented in this encounterUniversity Hospitals Health System09-12-2022 Miscellaneous Notes* Telephone Encounter - Ciera Conner [...] for further information needed. documented in this encounterUniversity Hospitals Health System08-21-2022 Hospital Discharge instructions Patient Education 07/07/2022 11:06:11 [...] and water are not available, use hand process machine operator. ?Change your dressing as told by your [...] antibiotic even if your condition improves. Take ezyc-ncj-ibnnpml and prescription medicines only as told by [...] 08/12/2009 Document Revised: 02/21/2020 Document Reviewed: 05/20/2017 [employer] Patient Education 2020 [employer]. Follow Up Care 06/21/2022 10:30:30 With:Case Management will call you at home after discharge. If you have any non- emergent questions or needs please feel free to call [phone] M-F 8am-4:30pm Address: When:1-2 days [facility] 08-21-2022 Note Discharge Instructions Thank you for allowing [facility] to assist you with your healthcare needs. [...] InformationCV OV 07/16/2022 01:15 PM EDT [facility] App[facility]ments Follow Up with Case Management will call you at home after discharge. If you have any non-emergent questions or needs please feel free to call [phone] M-F 8am-4:30pm When Within 1-2 days Where: [...] soap and water arenot available, use hand process machine operator. ? Change your dressing as told by [...] antibiotic even if your condition improves. Take egov-mcq-phzkxdh and prescription medicines only as told by [...] 08/12/2009 Document Revised: 02/21/2020 Document Reviewed: 05/20/2017 [employer] Patient Education 2020 [employer] Additional Information VACCINATE! IT SAVES LIVES! Members of the community who have not yet received the COVID-19 vaccine and would like to receive it can visit one of [facility] vaccine clinics. There are many vaccine clinic locations within the [facility]. For locations and available times, please visit [email or web address] It is important to note that some COVID mobile vaccine clinics are held outdoors and may be canceled in rainy or stormy conditions. To learn more about pediatric vaccinations (ages 5-11), we invite you to visit the [facility] webpage. [email or web address] [email or web address] learn more about the COVID-19 vaccine, we invite you to visit the [employer] website for a list of frequently asked questions. [email or web address] [facility] ddmap.comOur [facility] Patient Portal Access Instructions: Stay connected with your healthcare team and access your personal medical information anytime with the [facility] Patient Portal.If you would like a full copy of your medical records, please contact the [facility] Medical Records Department, Friday through Friday between 8a.m. and 4:30p.m. Please follow the directions below to access the portal: 1.Access the email account you provided upon registration to the [facility].2.Look for an invitation email from [facility].3.Open the email and access the invitation link: Accept Invitation to [facility] [employer].com4.Fill in the required long to create your account. Sign into [email or web address] with your username and password that you [...] you will allow to register on the [facility] [employer] Patient Portal for access to your information. You can also access the [facility] Patient Portal on the [employer] adam. Simply click on Health Records under [employer] and then click on the [facility] logo. [...] Call your local pharmacy or go to [email or web address] to find one close to you.3.Make use of household items: Use cat litter or old coffee grounds to dispose medications if other options arenot available. Mix your drugs with these household products, seal them in an airtight container andthrow it into the garbage. Call [facility]: [phone] to be sure your drugs can be [...] aware that I should contact my doctor. Patient/Four Slide Machine Setter Signature: Date/Time: Relationship to Patient: Witness Name/Signature: Date/Time: [id number] Note Date of Service 07/06/2022 Chief Complaint [...] by TISHA VALENZUELA on 07/06/2022 11:17 AM [facility] CenterSdokekgh46-18-5685 Note Date of Service 07/05/2022 Chief Complaint [...] home health care and spoke to social service liaison who states that she will go talk [...] by TISHA VALENZUELA on 07/05/2022 11:49 AM [facility] [id number] Note Date of Service 07/04/2022 Chief Complaint [...] by TISHA VALENZUELA on 07/04/2022 12:37 PM [facility] CenterNjtuwcnl71-17-4210 Note Date of Service 07/04/2022 Chief Complaint [...] by TISHA VALENZUELA on 07/04/2022 12:37 PM [facility] [id number] Plastic surgery Progress note Date of Service [...] MD BENJAMIN HERNANDEZ on 07/03/2022 08:36 PM [facility] [id number] Note Date of Service 07/03/2022 Chief Complaint [...] by KANE MESSER on 07/03/2022 11:12 AM [facility] CenterBfkudcjf08-72-2069 Note Date of Service 07/02/2022 Reason for [...] of skin of lower leg CAD IN [place] Carotid artery stenosis CKD (chronic kidney [...] by KANE MESSER on 07/02/2022 03:42 PM [facility] [id number] Note Patient: FEDERICO HU Age: 86 years [...] ALTAF HINOJOSA MD on 07/02/2022 03:04 PM [facility] [id number] Procedure* ALTAF HINOJOSA MD: PERFORM, SIGN, VERIFY [...] ALTAF HINOJOSA MD on 07/02/2022 03:04 PM [facility] 08-16-2022 Anesthesiology Consult note Patient: FEDERICO HU [...] preserved ejection fraction (HFpEF) / SNOMED CT 7425855155 / Confirmed Arthritis / SNOMED CT 2793775 / Confirmed Atrial fibrillation / SNOMED CT 39824860 / Confirmed Avulsion of skin of lower leg / SNOMED CT 9389542245 / Confirmed Prostate hypertrophy / SNOMED CT 528568193 / Confirmed Carotid artery stenosis / SNOMED CT 655314932 / Confirmed CKD (chronic kidney disease) stage 4, GFR 15-29 ml/min / SNOMED CT 5404559602 / Confirmed ABNORMAL NUCLEAR STRESS TEST / SNOMED CT 1640716917 / Confirmed ASHD (arteriosclerotic heart disease) / SNOMED CT 13944283 / Confirmed CAD IN [place] / SNOMED CT 0585140646 / Confirmed CPAP - Continuous positive airways pressure / SNOMED CT 9625075223 / Confirmed Wears dentures / SNOMED CT 287898546 / Confirmed Diabetes mellitus / SNOMED CT 259880800 / Confirmed Diastolic CHF / SNOMED CT 6884130446 / Confirmed On anticoagulant therapy / SNOMED CT 544475329 / Confirmed Former very heavy cigarette smoker (more than 40 per day) / SNOMED CT 951928493 / Confirmed Glasses / SNOMED CT 6200816159 / Confirmed Hyperlipidemia / SNOMED CT 98537049 / Confirmed Hypertension / SNOMED CT 3124230143 / Confirmed MORBID OBESITY / SNOMED CT 996419232 / Confirmed HELDER ON CPAP / SNOMED CT 058975556 / Confirmed Primary osteoarthritis of left hip / SNOMED CT 7017998680 / Confirmed ATRIAL FLUTTER, PAROXYSMAL / SNOMED CT 9839302023 / Confirmed Right bundle branch block / SNOMED CT 42621286 / Confirmed, Active Problems (24) ABNORMAL NUCLEAR STRESS TEST Acute on chronic heart failure with preserved ejection fraction (HFpEF) Arthritis ASHD (arteriosclerotic heart disease) Atrial fibrillation ATRIAL FLUTTER, PAROXYSMAL Avulsion of skin of lower leg CAD IN [place] Carotid artery stenosis CKD (chronic kidney [...] Histories Past Medical History: Active Diabetes mellitus (496700556) Hypertension (4521355298) Prostate hypertrophy (171139492) Arthritis (2097451) Right bundle branch block (67490178) Diastolic CHF (3494412825) ASHD (arteriosclerotic heart disease) (71458636) Resolved 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 Cataract (276227535): Resolved. Pulmonary embolism (29422405): Resolved. Family History: Cancer Father Diabetes mellitus Mother Father Breast cancer Mother Hypertension Mother Heart disease Father Heart attack Father Hyperlipidemia Mother Procedure history: Cardioversion (128683335) on 03/06/2022 at 86 Years. Echocardiogram (7752460946) on 02/19/2022 at 86 Years. Total knee replacement (3453666228) in 2018 at 83 Years. Comments: 05/13/2022 7:51 CEFERINO Flores right Cardiac catheterization (00477659) on 02/26/2018 at 82 Years. Cataract surgery (613028762) in 2014 at 80 Years. Biopsy of prostate (070470948) in 2009 at 75 Years. Total knee replacement (5313488498) in 2007 at 73 Years. Comments: 05/13/2022 7:51 CEFERINO Flores left CABG - Coronary artery bypass graft (843786467) on 09/18/2007 at 71 Years. Repair of inguinal hernia (29928058) in 1991 at 57 Years. Comments: 05/13/2022 7:52 EDT - CEFERINO Galdamez left Anal fissurectomy (9557333446) in 1978 at 44 Years. Hemorrhoidectomy (08325753). Bilateral inguinal hernia repair (388054473). Tonsillectomy (226971092). Social History Social & Psychosocial Habits Alcohol [...] Weight Lbs 344.3 lb Weight Method Actual [place] Body Weight 77.62 kg Type of Scale Used Bed scale Admission Body Mass Index 46.78 m2 07/01/2022 12:18 EDT Height 182.9 cm Height in inches 72 inch(es) Admission Weight 159.0 kg Weight Lbs 349.8 lb [place] Body Weight 77.62 kg BSA Admission 2.7 [...] Communicated Nurse communication Details Communicated Dr. Myers's supervisor molding notified of Patient had asa and eliquis [...] Method Explanation, Printed materials Preferred Written Language Thai Family/Caregiver Prefer Written Language Thai Preferred Spoken Language Thai Family/Caregiver Prefer Spoken Language Thai Surgical Site Infection Prevention SSI FAQ provided [...] Weight Lbs 344.3 lb Weight Method Actual [place] Body Weight 77.62 kg Type of Scale Used Bed scale Admission Body Mass Index 46.78 m2 Temperature Temporal Artery 36.3 DegC Peripheral Pulse Rate 83 bpm Respiratory Rate 16 br/min Systolic Blood Pressure 129 mmHg Diastolic Blood Pressure 60 mmHg Mean Arterial Pressure 83 mmHg Primary Pain Intensity 0 Pain Scale Type 0-10 Pain scale Nail Bed Color [place] Capillary Refill < 2 seconds Heart Rhythm Regular Respirations Unlabored Respiratory Pattern Regular All Lobes Breath Sounds Clear, Equal Cough None Oxygen Therapy Room air Oxygen Saturation 96 % Abdomen Description Non-distended, Soft Abdomen Palpation Non-Tender, Soft Bowel Movement Last Date 07/01/2022 Bowel Sounds All Quadrants Present Urinary Elimination Voiding, no difficulties Skin Temperature Warm Skin Description [place], Dry Skin Integrity Intact Neurological Symptoms Patient [...] No smoking after midnight, No jewelry, Responsible Democrat, Aware of surgery location, Pre-op education done, [...] Weight 159.0 kg Weight Lbs 349.8 lb [place] Body Weight 77.62 kg BSA Admission 2.7 Body Mass Index 47.53 kg/m2 Apical Heart Rate 80 bpm Systolic BP Left Arm 118 mmHg Diastolic BP Left Arm 62 mmHg Advanced Directives No - refuses information Chief Complaint surgical clearance Comprehensive Intake-Specialty OfficeAMB Ambulatory Comprehensive Intake - Specialty Office Preferred Lab [facility] facility Preferred Rad [facility] 07/01/2022 11:56 EDT Glucose Level 164 mg/dL [...] Medical/Surgical Clearance Scanned . Assessment and Plan [place] [employer] Anesthesiologists (ASA) physical status classification: [...] SONIA PICHARDO DO on 07/02/2022 10:34 AM [facility] CenterRgogqqyt77-27-8649 History of Present illness Narrative* Adriana Garrison, [facility] - 06/25/2022 2:30 PM EDT Primary Care [...] in the month. [facility] Patient reports blood sugar readings are [...] not present Adherence: denies missed doses. Pharmacy: [facility] [place] Rx coverage: not addressed Affordability: no concerns at this time Diabetes supplies: [employer] System: not addressed ACTIVE PROBLEM LIST Obesity, Class Iii, Bmi 40-49.9 (Morbid Obesity) ([facility]) Type 2 Diabetes Mellitus With Neurological Manifestations, Controlled ([facility]) Essential Hypertension Coronary Atherosclerosis Hyperlipemia Bph With Obstruction/Lower Urinary Tract Symptoms Anemia Oa (Osteoarthritis) of Knee Atrial Fibrillation ([facility]) S/P Cabg X 2 Rbbb (Right Bundle Branch Block) Encounter for Monitoring Anti-Arrhythmic Therapy Ckd (Chronic Kidney Disease) Stage 4, Gfr 15-29 Ml/Min ([facility]) Chronic Diastolic Chf (Congestive Heart Failure) ([facility]) 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 Hypercalcemia Wound of Left Leg Recurrent Epistaxis PAST MEDICAL HISTORY Diagnosis Date Anal fissure 06/19/2006 Atrial fibrillation ([facility]) 05/13/2016 Benign localized hyperplasia of prostate with urinary obstruction and other lower urinary tract symptoms (LUTS)(600.21) 11/30/2009 CAROTID ART OCCL-NO INFARCT 01/31/2009 Carotid US 1-09: > 50% on the R, < 50% on the L Chronic diastolic CHF (congestive heart failure) ([facility]) 07/22/2018 CKD (chronic kidney disease) stage 4, GFR 15-29 ml/min ([facility]) 07/22/2018 CORONARY ATHEROSCLER UNSPEC VESSEL 01/03/2009 2 [...] urinary tract symptoms (LUTS) 08/08/2010 Morbid obesity ([facility]) Multiple papillomata and wet crab yaws due [...] azelastine-fluticasone (DYMISTA) 137-50 mcg/spray spry Use 1 [place] in each nostril twice daily. spironolactone (ALDACTONE) [...] TG 129 11/15/2021 The ASCVD Risk score (Laveengagan DAVIDSON Jr., et al., 2013) failed to [...] Garrison PharmD, BCACP Primary Care Clinical Pharmacist [facility] The majority of the pharmacy visit (> 50%) was spent counseling and/or coordinating care for thepatient. [Telephonic] time was 18 minutes. documented in this encounterUniversity Hospitals Health System07-27-2022 Instructions* Patient Instructions* Nithin Acevedo MD - 06/12/2022 2:49 PM EDT SHINGRIX VACCINE(2 of 3) due on 12/09/2012 COVID-19 VACCINE(3 - Booster for Moderna series) due on 06/02/2021 ADVANCE DIRECTIVE COPY. DILATED RETINAL EXAM due on 06/25/2022 FASTING LABS IN 6 MONTHS. documented in this encounterUniversity Hospitals Health System07-27-2022 History of Present illness Narrative* Nithin Acevedo MD - 06/12/2022 2:14 PM EDT Yearly Visit Federico Hu was here for his annual visit. He was having frequent epistaxis. His watch guard gate recommended ENT and changed apixiban to rivaroxaban. He injured his left leg 1.5 months ago, and developed a non healing wound of the left leg. He was going for Wound Care at [facility]. His neighbor was doing wound dressings. He had scheduled plastic surgery of the left leg at [facility]. His diabetes mellitus was reportedly controlled. PAST MEDICAL HISTORY Diagnosis Date Anal fissure 06/19/2006 Atrial fibrillation (HCC) 05/13/2016 Benign localized hyperplasia of prostate with urinary obstruction and other lower urinary tract symptoms (LUTS)(600.21) 11/30/2009 CAROTID ART OCCL-NO INFARCT 01/31/2009 Carotid US -09: > 50% on the R, < 50% on the L Chronic diastolic CHF (congestive heart failure) ([facility]) 07/22/2018 CKD (chronic kidney disease) stage 4, GFR 15-29 ml/min ([facility]) 07/22/2018 CORONARY ATHEROSCLER UNSPEC VESSEL 01/03/2009 2 [...] urinary tract symptoms (LUTS) 08/08/2010 Morbid obesity ([facility]) Multiple papillomata and wet crab yaws due [...] azelastine-fluticasone (DYMISTA) 137-50 mcg/spray spry Use 1 [place] in each nostril twice daily. spironolactone (ALDACTONE) [...] 2 diabetes mellitus with neurological manifestations, controlled ([facility]) - ICD9: 250.60, ICD10: E11.49 improved control - Continue current medications - HEMOGLOBIN A1C (POC) - COMP METABOLIC PANEL - LIPID PANEL BASIC - ALBUMIN/CREAT RATIO RND UR - HGB A1C 4. Essential hypertension - ICD9: 401.9, ICD10: I10 - good control - Continue current medication(s) 5. Atherosclerosis of [place] coronary artery of [place] heart without angina pectoris - ICD9: 414.01, ICD10: I25.10 Stable. 6. Obesity, Class III, BMI 40-49.9 (morbid obesity) ([facility]) - ICD9: 278.01, ICD10: E66.01 Stable 7. CKD (chronic kidney disease) stage 4, GFR 15-29 ml/min ([facility]) - ICD9: 585.4, ICD10: N18.4 Stable. 8. Chronic diastolic CHF (congestive heart failure) ([facility]) - ICD9: 428.32, 428.0, ICD10: I50.32 Controlled. 9. Recurrent epistaxis - ICD9: 784.7, ICD10: R04.0 - CONSULT TO ENT 10. Wound of left lower extremity, sequela - ICD9: 906.1, ICD10: S81.802S Following with [facility]. Nithin Acevedo MD documented in this encounterUniversity Hospitals Health System07-27-2022 History of Past illness Narrative* Problem Noted [...] of this encounter (statuses as of 05/19/2023) [facility]22 History of Past illness Narrative* Problem Noted [...] of this encounter (statuses as of 05/24/2023) [facility]07-27-[facility]22 History of Past illness Narrative* Problem Noted [...] of this encounter (statuses as of 06/18/2023) [facility]07-27-[facility]22 History of Past illness Narrative* Problem Noted [...] of this encounter (statuses as of 07/16/2023) [facility]-27-[facility]22 History of Past illness Narrative* Problem Noted [...] of this encounter (statuses as of 10/14/2023) [facility]07[facility] History of Past illness Narrative* Problem Noted [...] of this encounter (statuses as of 10/22/2023) [facility] History of Past illness Narrative* Problem Noted [...] of this encounter (statuses as of 10/23/2023) [facility]22 History of Past illness Narrative* Problem Noted [...] of this encounter (statuses as of 11/07/2023) [facility] History of Past illness Narrative* Problem Noted [...] of this encounter (statuses as of 01/16/2024) [facility] History of Past illness Narrative* Problem Noted [...] of this encounter (statuses as of 01/22/2024) [facility]07-27-[facility]22 History of Past illness Narrative* Problem Noted [...] of this encounter (statuses as of 01/22/2024) [facility] History of Past illness Narrative* Problem Noted [...] of this encounter (statuses as of 02/05/2024) [facility]07-14-2022 Miscellaneous Notes* Telephone Encounter - Nithin Acevedo [...] Humalog in place of Tresiba. Can he apple picker Tresiba locally once or does he still [...] picked up. 3. asking if sister can apple picker medications. Please advise . She Julian LPN documented in this encounterUniversity Hospitals Health System07-14-2022 Miscellaneous Notes* Telephone Encounter - Ciera Conner LPN - 05/30/2022 1:15 PM EDT Pt's sister in law picked this up. * Telephone Encounter - Ciera Conner LPN - 05/24/2022 1:13 PM EDT rec'd today 2 boxes of novofine 32 G tip Lot number [id number] Exp date 09/16/2026. * Telephone Encounter - Ciera Conner LPN - 05/24/2022 11:18 AM EDT Message left to pt's spouse this is available for apple picker. * Telephone Encounter - Ciera Conner LPN - 05/23/2022 11:12 AM EDT rec'd one box of novolog flex pen from [employer]. Lot number is [id number] ext date is 06/16/2024 documented in this encounterUniversity Hospitals Health System07-05-2022 Miscellaneous Notes* Telephone Encounter - Daxa Morin LPN - 05/21/2022 8:56 AM EDT notified, verbalized understanding. Daxa Morin LPN * Telephone Encounter - Nithin Acevedo MD - 05/19/2022 2:48 PM EDT Instruct patient to contact Dr. Strickland, his watch guard gate about Xarelto side effect. * Telephone Encounter - Bear Good RN - 05/17/2022 3:02 PM EDT [facility] discharge service for [employer]- reports she did a 1 time courtesy nursing visit with [employer]. Went over patient's meds with him and . Watched do dressing changes to wound on LLL. Patient reported he is not taking xarelto, hasn't taken for weeks because it causes nose bleeds. Patient refused xarelto in the hospital. reported she is going to call the watch guard gate but hasn't gotten around to it yet. Asking pcp to call patient with any new instructions. documented in this encounterUniversity Hospitals Health System06-29-2022 Hospital Discharge instructions Patient Education 05/15/2022 16:13:02 How to Change Your Wound Dressing, Uzed-ya-Snov How to Change Your Wound Dressing A [...] it open and ready to use. Hand process machine operator. Cleaning solution as told by your doctor. [...] cannot use soap and water, use hand process machine operator. Wear gloves and protective clothing while changing [...] cannot use soap and water, use hand process machine operator. Go to the clean area that you [...] your skin, wet the dressing with the aircraft cabin cleaner that your doctor says to use. This [...] cannot use soap and water, use hand process machine operator. Cleaning your wound Follow instructions from your doctor about how to clean your wound. This may include using the aircraft cabin cleaner that your doctor recommends. ?You may need to use germ-free water to clean your wound if you are putting on a dressing that has silver in it. Do not use vdtm-msf-bddwcff medicated or antiseptic creams, sprays, liquids, or dressings unless your doctor tells you to do that. Use a clean gauze pad to clean the area fully with the aircraft cabin cleaner that your doctor recommends. Throw the gauze pad into the trash bag. Wash your hands with soap and water. Dry your hands with a clean towel. If you cannot use soap and water, use hand process machine operator. Putting on the dressing If your doctor [...] cannot use soap and water, use hand process machine operator. Follow these instructions at home: Wound care Check your wound every day for signs of infection, or as often as told by your doctor. Check for: ?More redness, swelling, or pain. ?More fluid or blood. ?Warmth. ?Pus or a bad smell. General instructions Take wlhd-ulu-rxelvdm and prescription medicines only as told by your doctor. Ask your doctor if the medicine prescribed to you: ?Requires you to avoid driving or using heavy machinery. ?Can cause trouble pooping (constipation). You may need to take steps to prevent or treat trouble pooping: ?Drink enough fluid to keep your pee (urine) pale yellow. ?Take ovog-cma-pkplsfb or prescription medicines. ?Eat foods that are [...] 01/30/2010 Document Revised: 07/01/2019 Document Reviewed: 07/01/2019 [employer] Patient Education 2020 [employer]. 05/15/2022 16:06:29 Incision and Drainage, Care After [...] Follow these instructions at home: Medicines Take zohy-ybr-fmmtmxi and prescription medicines only as told by [...] and water are not available, use hand process machine operator. Change your dressing and packing as told [...] 01/25/2013 Document Revised: 10/04/2019 Document Reviewed: 10/04/2019 [employer] Patient Education 2020 [employer]. Follow Up Care 05/10/2022 09:32:45 With:NITHIN ACEVEDO MD Address: [address] [place] [address]- When:1-2 days Comments:Please call the office to schedule a follow up appointment With:LAURENT MYERS MD, [facility], [facility] Address: [address] [place] [address] [address] [place] [address] [phone] When:05/30/2022 Comments:Please call the office for an appointment. With:Case Management will call you at home after discharge. If you have any non- emergent questions or needs please feel free to call [phone] M-F 8am-4:30pm Address: When:1-2 days [facility] 06-29-2022 Note Discharge Instructions Thank you for allowing [facility] to assist you with your healthcare needs. The following is importantdischarge information regarding your hospital visit. Your Care Team NITHIN ACEVEDO MD What to do next Scheduled Follow-Up Appointments Appointment Type When Where Contact InformationCV OV 07/16/2022 01:15 PM EDT [facility] [place] Follow Up Appointments Follow Up with LAURENT MYERS MD, [facility], Plastic and Reconstructive When In 15 days 05/30/2022 EDT Why: Please call the office for an appointment. Where: [address] [place] [address] [phone] Follow Up with NITHIN ACEVEDO MD When Within 1-2 days Why: Please call the office to schedule a follow up appointment Where: [address] [place], [place] [address]- Follow Up with Case Management will call you at home after discharge. If you have any non-emergent questions or needs please feel free to call [phone] M-F 8am-4:30pm When Within 1-2 days Where: [...] it open and ready to use. Hand process machine operator. Cleaning solution as told by your doctor. [...] cannot use soap and water, use hand process machine operator. Wear gloves and protective clothing while changing [...] cannot use soap and water, use hand process machine operator. Go to the clean area that you [...] your skin, wet the dressing with the aircraft cabin cleaner that your doctor says to use. This [...] cannot use soap and water, use hand process machine operator. Cleaning your wound Follow instructions from your doctor about how to clean your wound. This may include using the aircraft cabin cleaner that your doctor recommends. ? You may need to use germ-free water to clean your wound if you are putting on a dressing that has silver in it. Do not use ebda-huk-giobhgq medicated or antiseptic creams, sprays, liquids, or dressings unless your doctor tells you to do that. Use a clean gauze pad to clean the area fully with the aircraft cabin cleaner that your doctor recommends. Throw the gauze pad into the trash bag. Wash your hands with soap and water. Dry your hands with a clean towel. If you cannot use soap and water, use hand process machine operator. Putting on the dressing If your doctor [...] cannot use soap and water, use hand process machine operator. Follow these instructions at home: Wound care Check your wound every day for signs of infection, or as often as told by your doctor. Check for: ? More redness, swelling, or pain. ? More fluid or blood. ? Warmth. ? Pus or a bad smell. General instructions Take sdvo-drs-auxlucc and prescription medicines only as told by your doctor. Ask your doctor if the medicine prescribed to you: ? Requires you to avoid driving or using heavy machinery. ? Can cause trouble pooping (constipation). You may need to take steps to prevent or treat trouble pooping: ? Drink enough fluid to keep your pee (urine) pale yellow. ? Take qqbu-nzz-idbscoh or prescription medicines. ? Eat foods that [...] 01/30/2010 Document Revised: 07/01/2019 Document Reviewed: 07/01/2019 [employer] Patient Education 2020 [employer] Incision and Drainage, Care After This [...] Follow these instructions at home: Medicines Take ytpf-wxl-jfxtdzg and prescription medicines only as told by [...] and water are not available, use hand process machine operator. Change your dressing and packing as told [...] Document Reviewed: 10/04/2019 Elsevier Patient Education 2020 [employer] Additional Information VACCINATE! IT SAVES LIVES! Members of the community who have not yet received the COVID-19 vaccine and would like to receive it can visit one of [facility] vaccine clinics. There are many vaccine clinic locations within the [facility]. For locations and available times, please visit [email or web address] It is important to note that some COVID mobile vaccine clinics are held outdoors and may be canceled in rainy or stormy conditions. To learn more about pediatric vaccinations (ages 5-11), we invite you to visit the [facility] webpage. [email or web address] learn more about the COVID-19 vaccine, we invite you to visit the [facility] website for a list of frequently asked questions. [email or web address] [email or web address] Patient Portal Access Instructions: Stay connected with your healthcare team and access your personal medical information anytime with the [facility] Patient Portal.If you would like a full copy of your medical records, please contact the [facility] Medical Records Department, Friday through Friday between 8a.m. and 4:30p.m. Please follow the directions below to access the portal: 1.Access the email account you provided upon registration to the [facility].2.Look for an invitation email from [facility].3.Open the email and access the invitation link: Accept Invitation to [facility]4.Fill in the required long to create your account. Sign into [email or web address] with your username and password that you [...] you will allow to register on the [facility] Patient Portal for access to your information. You can also access the [employer] Patient Portal on the [employer] adam. Simply click on Health Records under [employer] and then click on the [employer] logo. HOW TO SAFELY DISPOSE OF PRESCRIPTION [...] Call your local pharmacy or go to [email or web address] to find one close to you.3.Make use of household items: Use cat litter or old coffee grounds to dispose medications if other options arenot available. Mix your drugs with these household products, seal them in an airtight container andthrow it into the garbage. Call [facility]: [phone] to be sure your drugs can be [...] Materials How to Change Your Wound Dressing, Calm-bq-Avbf Incision and Drainage, Care After Medication Leaflets My discharge plan and instructions have been reviewed and explained to me and I,FEDERICO HU understand my current condition and have read and understand these discharge instructions. I have received a written copy of the plan/instructions. If I have questions, I am aware that I should contact my doctor. Patient/Four Slide Machine Setter Signature: Date/Time: Relationship to Patient: Witness Name/Signature: Date/Time: [id number] Anesthesiology Consult note Patient: FEDERICO HU Age: [...] EZIO POLANCO DO on 05/14/2022 09:46 AM [id number] Anesthesiology Consult note Patient: FEDERICO HU Age: [...] preserved ejection fraction (HFpEF) / SNOMED CT 3054039924 / Confirmed Arthritis / SNOMED CT 2315675 / Confirmed Prostate hypertrophy / SNOMED CT 546763993 / Confirmed CABG / Confirmed ABNORMAL NUCLEAR STRESS TEST / SNOMED CT 2876420900 / Confirmed ASHD (arteriosclerotic heart disease) / SNOMED CT 45990590 / Confirmed CAD IN [place] ARTERY / SNOMED CT 4644177866 / Confirmed Diabetes mellitus / SNOMED CT 042851179 / Confirmed Diastolic CHF / SNOMED CT 0718350474 / Confirmed Hyperlipidemia / SNOMED CT 64183750 / Confirmed Hypertension / SNOMED CT 6760125757 / Confirmed MORBID OBESITY / SNOMED CT 502726625 / Confirmed HELDER ON CPAP / SNOMED CT 856758450 / Confirmed ATRIAL FLUTTER, PAROXYSMAL / SNOMED CT 4458276707 / Confirmed Right bundle branch block / SNOMED CT 22661137 / Confirmed, Active Problems (24) ABNORMAL NUCLEAR STRESS TEST Acute on chronic heart failure with preserved ejection fraction (HFpEF) Arthritis ASHD (arteriosclerotic heart disease) Atrial fibrillation ATRIAL FLUTTER, PAROXYSMAL Avulsion of skin of lower leg CABG CAD IN [place] ARTERY Carotid artery stenosis CKD (chronic kidney disease) stage 4, GFR 15-29 ml/min CPAP - Continuous positive airways pressure Diabetes mellitus Diastolic CHF Former very heavy cigarette smoker (more than 40 per day) Glasses Hyperlipidemia Hypertension MORBID OBESITY On anticoagulant therapy HELDER ON CPAP Primary osteoarthritis of left hip Prostate hypertrophy Right bundle branch block Histories Past Medical History: Active Diabetes mellitus (238522767) Hypertension (0199060817) Prostate hypertrophy (535342257) Arthritis (7965073) Right bundle branch block (77333428) Diastolic CHF (3340566309) ASHD (arteriosclerotic heart disease) (81940214) Resolved pulmonary embolus: Onset on 12/01/2006 at 71 years. Resolved. Cataract (076099156): Resolved. Family History: Cancer Father Diabetes mellitus Mother Father Breast cancer Mother Hypertension Mother Heart disease Father Heart attack Father Hyperlipidemia Mother Procedure history: Cardioversion (814575953) on 03/06/2022 at 86 Years. Echocardiogram (9277135314) on 02/19/2022 at 86 Years. Total knee replacement (3385897480) in 2018 at 83 Years. Comments: 05/13/2022 7:51 CEFERINO Flores right Cardiac catheterization (01378542) on 02/26/2018 at 82 Years. Cataract surgery (933092267) in 2014 at 80 Years. Biopsy of prostate (759396247) in 2009 at 75 Years. Total knee replacement (9032634180) in 2007 at 73 Years. Comments: 05/13/2022 7:51 CEFERINO Flores left CABG - Coronary artery bypass graft (571048639) on 09/18/2007 at 71 Years. Repair of inguinal hernia (85710791) in 1991 at 57 Years. Comments: 05/13/2022 7:52 CEFERINO Flores left Anal fissurectomy (7596617759) in 1978 at 44 Years. Hemorrhoidectomy (61973844). Bilateral inguinal hernia repair (811574148). Tonsillectomy (172027198). Social History Social & Psychosocial Habits Alcohol [...] Admission Weight 162.6 kg Weight Method Actual [place] Body Weight 77.62 kg General: Alert and [...] after midnight, No makeup, No jewelry, Responsible Democrat, Aware of surgery location, 2 bottles CHG [...] #1 We May Share JUDITH Aliza Hu ([phone]) Designated Person #1 Relationship Spouse Designated Person #2 We May Share JUDITH Harman Hu ([phone]) Privacy Restrictions Requested None Height 182.9 cm Admission Weight 162.6 kg Weight Method Actual [place] Body Weight 77.62 kg Temperature Oral 36.5 [...] hospital Advanced Directives Yes Advance Directive Type [place] Durable Power of Thermal Engineer for Health Care, [place] Declaration (Living Will) Advance Directive Location Patient [...] Method Explanation, Printed materials Preferred Written Language Thai Preferred Spoken Language Thai Information Given by Patient Patient's Current Physicians [...] Note-Nursing Date\Time Correction . Assessment and Plan [place] Society of Anesthesiologists (ASA) physical status classification: [...] KANE MENDOZA MD on 05/14/2022 07:56 AM [id number] History of Present illness Narrative* Adriana Garrison, [facility] - 05/07/2022 2:30 PM EDT Primary Care [...] not present Adherence: denies missed doses. Pharm[facility] [place] Rx coverage: not addressed Affordability: no concerns at this time Diabetes supplies: [employer] System: not addressed ACTIVE PROBLEM LIST Obesity, Class Iii, Bmi 40-49.9 (Morbid Obesity) ([facility]) Type 2 Diabetes Mellitus With Neurological Manifestations, Controlled ([facility]) Essential Hypertension Coronary Atherosclerosis Hyperlipemia Bph With Obstruction/Lower Urinary Tract Symptoms Anemia Oa (Osteoarthritis) of Knee Atrial Fibrillation ([facility]) S/P Cabg X 2 Rbbb (Right Bundle Branch Block) Encounter for Monitoring Anti-Arrhythmic Therapy Ckd (Chronic Kidney Disease) Stage 4, Gfr 15-29 Ml/Min ([facility]) Chronic Diastolic Chf (Congestive Heart Failure) ([facility]) 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 Hypercalcemia PAST MEDICAL HISTORY Diagnosis Date Anal fissure 06/19/2006 Atrial fibrillation ([facility]) 05/13/2016 Benign localized hyperplasia of prostate with urinary obstruction and other lower urinary tract symptoms (LUTS)(600.21) 11/30/2009 CAROTID ART OCCL-NO INFARCT 01/31/2009 Carotid US 1-09: > 50% on the R, < 50% on the L Chronic diastolic CHF (congestive heart failure) ([facility]) 07/22/2018 CKD (chronic kidney disease) stage 4, GFR 15-29 ml/min ([facility]) 07/22/2018 CORONARY ATHEROSCLER UNSPEC VESSEL 01/03/2009 2 [...] urinary tract symptoms (LUTS) 08/08/2010 Morbid obesity ([facility]) Multiple papillomata and wet crab yaws due [...] azelastine-fluticasone (DYMISTA) 137-50 mcg/spray spry Use 1 [place] in each nostril twice daily. spironolactone (ALDACTONE) [...] TG 129 11/15/2021 The ASCVD Risk score (Laveengagan DAVIDSON Jr., et al., 2013) failed to [...] Garrison PharmD, NEERU Primary Care Clinical Pharmacist [facility] The majority of the pharmacy visit (> 50%) was spent counseling and/or coordinating care for thepatient. [Telephonic] time was 18 minutes. documented in this encounterUniversity Hospitals Health System06-14-2022 Miscellaneous Notes* Telephone Encounter - Ciera Conner LPN - 04/30/2022 4:04 PM EDT pcp signed form. This has been faxed back. * Telephone Encounter - Adriana Garrison RPh - 04/29/2022 5:28 PM EDT Patient was started on meal time insulin on 04/23. Temporarily started on Humalog pen with 1 month free voucher due to cost barrier. He is currently enrolled in [employer], will pursue Novolog brand to switch to in future once Humalog supply depleted. Completed refill form to reflect addition of meal time insulin and Tresiba dose increase. Will provide to PCP for review and signature. Please fax with attached cover sheet once signed. Thanks! Adriana Garrison PharmD, NEERU Primary Care Clinical Pharmacist [facility] documented in this encounterUniversity Hospitals Health System06-08-2022 Miscellaneous Notes* Telephone Encounter - Adriana Garrison RPh - 04/24/2022 1:31 PM EDT Notified patient's ,Aliza, who verbalized understanding. Also called [facility] and provided codes for 1 month free voucher. Adriana Garrison PharmD, NEERU Primary Care Clinical Pharmacist [facility] * Telephone Encounter - Adriana Garrison RP - 04/24/2022 1:16 PM EDT Called and spoke with [facility] in [place], they also do not have Novolog pens [...] GARRISON, PharmD, BCACP Primary Care Clinical Pharmacist [facility] * Telephone Encounter - Ciera Conner LPN - 04/24/2022 10:39 AM EDT Called spouse [facility] Can you send again with the voucher? * Telephone Encounter - Carmen Greco Pss - 04/24/2022 9:26 AM EDT Patient's calling stating that Novolog that was called into pharmacy in [place] is out of stockand they won't have any for 2-3 days. Is there another pharmacy this could be called into? will be in [place] this afternoon. Please advise and call with plan. documented in this encounterUniversity Hospitals Health System06-08-2022 Miscellaneous Notes* Telephone Encounter - Katherin Amezcua APRN.CNP - 04/24/2022 10:13 AM EDT This was sent by Adriana on 04/23 with note to pharmacy to use one time free voucher? Katherin Amezcua APRN.CNP documented in this encounterUniversity Hospitals Health System06-07-2022 History of Present illness Narrative* Adriana Garrison, [facility] - 04/23/2022 2:00 PM EDT Primary Care [...] not present Adherence: denies missed doses. Pharmacy: [facility] [place] Rx coverage: not addressed Affordability: no concerns at this time Diabetes supplies: [employer] System: not addressed ACTIVE PROBLEM LIST Obesity, Class Iii, Bmi 40-49.9 (Morbid Obesity) ([facility]) Type 2 Diabetes Mellitus With Neurological Manifestations, Controlled ([facility]) Essential Hypertension Coronary Atherosclerosis Hyperlipemia Bph With Obstruction/Lower Urinary Tract Symptoms Anemia Oa (Osteoarthritis) of Knee Atrial Fibrillation ([facility]) S/P Cabg X 2 Rbbb (Right Bundle Branch Block) Encounter for Monitoring Anti-Arrhythmic Therapy Ckd (Chronic Kidney Disease) Stage 4, Gfr 15-29 Ml/Min ([facility]) Chronic Diastolic Chf (Congestive Heart Failure) ([facility]) 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 Hypercalcemia PAST MEDICAL HISTORY Diagnosis Date Anal fissure 06/19/2006 Atrial fibrillation ([facility]) 05/13/2016 Benign localized hyperplasia of prostate with urinary obstruction and other lower urinary tract symptoms (LUTS)(600.21) 11/30/2009 CAROTID ART OCCL-NO INFARCT 01/31/2009 Carotid US 1-09: > 50% on the R, < 50% on the L Chronic diastolic CHF (congestive heart failure) ([facility]) 07/22/2018 CKD (chronic kidney disease) stage 4, GFR 15-29 ml/min ([facility]) 07/22/2018 CORONARY ATHEROSCLER UNSPEC VESSEL 01/03/2009 2 [...] urinary tract symptoms (LUTS) 08/08/2010 Morbid obesity ([facility]) Multiple papillomata and wet crab yaws due [...] azelastine-fluticasone (DYMISTA) 137-50 mcg/spray spry Use 1 [place] in each nostril twice daily. spironolactone (ALDACTONE) [...] improved BG control. Pt obtains insulins through [employer] patient assistance. Will try to receive immediate [...] Garrison PharmD, BCACP Primary Care Clinical Pharmacist [facility] The majority of the pharmacy visit (> 50%) was spent counseling and/or coordinating care for thepatient. [Telephonic] time was 29 minutes. documented in this encounterUniversity Hospitals Health System05-23-2022 Miscellaneous Notes* Telephone Encounter - Daxa Morin [...] monoclonal protein analysis suggested. documented in this encounterUniversity Hospitals Health System05-17-2022 History of Present illness Narrative* Adriana Garrison [...] not present Adherence: denies missed doses. Pharmacy: [facility] and [facility] in [place] Rx coverage: not addressed Affordability: no concerns at this time Diabetes supplies: [employer] System: not addressed ACTIVE PROBLEM LIST Obesity, Class Iii, Bmi 40-49.9 (Morbid Obesity) ([facility]) Type 2 Diabetes Mellitus With Neurological Manifestations, Controlled ([facility]) Essential Hypertension Coronary Atherosclerosis Hyperlipemia Bph With Obstruction/Lower Urinary Tract Symptoms Anemia Oa (Osteoarthritis) of Knee Atrial Fibrillation ([facility]) S/P Cabg X 2 Rbbb (Right Bundle Branch Block) Encounter for Monitoring Anti-Arrhythmic Therapy Ckd (Chronic Kidney Disease) Stage 4, Gfr 15-29 Ml/Min ([facility]) Chronic Diastolic Chf (Congestive Heart Failure) ([facility]) 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 Hypercalcemia PAST MEDICAL HISTORY Diagnosis Date Anal fissure 06/19/2006 Atrial fibrillation (HCC) 05/13/2016 Benign localized hyperplasia of prostate with urinary obstruction and other lower urinary tract symptoms (LUTS)(600.21) 11/30/2009 CAROTID ART OCCL-NO INFARCT 01/31/2009 Carotid US 1-09: > 50% on the R, < 50% on the L Chronic diastolic CHF (congestive heart failure) ([facility]) 07/22/2018 CKD (chronic kidney disease) stage 4, GFR 15-29 ml/min ([facility]) 07/22/2018 CORONARY ATHEROSCLER UNSPEC VESSEL 01/03/2009 2 [...] urinary tract symptoms (LUTS) 08/08/2010 Morbid obesity ([facility]) Multiple papillomata and wet crab yaws due [...] azelastine-fluticasone (DYMISTA) 137-50 mcg/spray spry Use 1 [place] in each nostril twice daily. spironolactone (ALDACTONE) [...] Garrison PharmD, BCACP Primary Care Clinical Pharmacist [facility] The majority of the pharmacy visit (> 50%) was spent counseling and/or coordinating care for thepatient. [Telephonic] time was 14 minutes. documented in this encounterUniversity Hospitals Health System05-16-2022 Miscellaneous Notes* Telephone Encounter - Bear Good RN - 04/01/2022 10:28 AM EDT Patient [...] you. Bear Good RN documented in this encounterUniversity Hospitals Health System04-28-2022 Miscellaneous Notes* Telephone Encounter - Ciera Conner [...] 1x3ml 4pcsnf 1x3 ml prefilled pen Lot [id number] Exp date is 11/16/2024. documented in this encounterUniversity Hospitals Health System04-28-2022 Miscellaneous Notes* Telephone Encounter - Adriana Garrison [...] Garrison, PharmD, BCACP Primary Care Clinical Pharmacist [facility] documented in this encounterUniversity Hospitals Health System04-11-2022 Miscellaneous Notes* Telephone Encounter - Ciera Conner LPN - 02/25/2022 2:02 PM EDT At last appt pcp increased pts semaglutide (OZEMPIC) 1 mg/dose (4 mg/3 mL) pen injector. New pt assistance forms completed for the higher dose. This was faxed to [facility]. documented in this encounterUniversity Hospitals Health System04-08-2022 History of Present illness Narrative* Nithin Acevedo MD - 02/22/2022 12:15 PM EDT This note was created using [employer]. Subjective Federico Hu is a 86 year old male. He was doing reasonably well. He was scheduled to see his watch guard gate Dr. Strickland next week. His hypertension was elevated. His diabetes mellitus was not well controlled. Review of Systems Constitutional: Negative. Respiratory: Negative. Cardiovascular: Negative. Gastrointestinal: Negative. ACTIVE PROBLEM LIST Obesity, Class Iii, Bmi 40-49.9 (Morbid Obesity) ([facility]) Type 2 Diabetes Mellitus With Neurological Manifestations, Controlled ([facility]) Essential Hypertension Coronary Atherosclerosis Hyperlipemia Bph With Obstruction/Lower Urinary Tract Symptoms Anemia Oa (Osteoarthritis) of Knee Atrial Fibrillation ([facility]) S/P Cabg X 2 Rbbb (Right Bundle Branch Block) Encounter for Monitoring Anti-Arrhythmic Therapy Ckd (Chronic Kidney Disease) Stage 4, Gfr 15-29 Ml/Min ([facility]) Chronic Diastolic Chf (Congestive Heart Failure) ([facility]) 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 [...] azelastine-fluticasone (DYMISTA) 137-50 mcg/spray spry Use 1 [place] in each nostril twice daily. spironolactone (ALDACTONE) [...] TABLET Nithin Acevedo MD documented in this encounterUniversity Hospitals Health System12-14-2020 History of Present illness Narrative* Kristine Nicholson [...] 30, 2020 5:56 PM documented in this encounterUniversity Hospitals Health System11-04-2017 History of Past illness Narrative* Problem Noted [...] of this encounter (statuses as of 02/22/2022) [facility]11-04-2017 History of Past illness Narrative* Problem Noted [...] of this encounter (statuses as of 02/25/2022) [facility]11[facility]-2017 History of Past illness Narrative* Problem Noted [...] of this encounter (statuses as of 03/14/2022) [facility] System11-04-2017 History of Past illness Narrative* Problem Noted [...] of this encounter (statuses as of 03/29/2022) [facility]11[facility]04-2017 History of Past illness Narrative* Problem Noted [...] of this encounter (statuses as of 04/01/2022) [facility] History of Past illness Narrative* Problem Noted [...] of this encounter (statuses as of 04/08/2022) [facility] History of Past illness Narrative* Problem Noted [...] of this encounter (statuses as of 04/23/2022) [facility] History of Past illness Narrative* Problem Noted [...] of this encounter (statuses as of 04/24/2022) [facility] History of Past illness Narrative* Problem Noted [...] of this encounter (statuses as of 04/24/2022) [facility] History of Past illness Narrative* Problem Noted [...] of this encounter (statuses as of 04/30/2022) [facility] History of Past illness Narrative* Problem Noted [...] of this encounter (statuses as of 05/08/2022) [facility] History of Past illness Narrative* Problem Noted [...] of this encounter (statuses as of 05/21/2022) [facility] History of Past illness Narrative* Problem Noted [...] of this encounter (statuses as of 05/22/2022) [facility] History of Past illness Narrative* Problem Noted [...] of this encounter (statuses as of 05/30/2022) [facility] History of Past illness Narrative* Problem Noted [...] of this encounter (statuses as of 05/30/2022) [facility] History of Past illness Narrative* Problem Noted [...] of this encounter (statuses as of 06/12/2022) [facility] History of Past illness Narrative* Problem Noted [...] of this encounter (statuses as of 06/25/2022) [facility] History of Past illness Narrative* Problem Noted [...] of this encounter (statuses as of 07/29/2022) [facility] of Past illness Narrative* Problem Noted [...] of this encounter (statuses as of 08/21/2022) [facility] of Past illness Narrative* Problem Noted [...] of this encounter (statuses as of 08/30/2022) [facility] History of Past illness Narrative* Problem Noted [...] of this encounter (statuses as of 10/05/2022) [facility] History of Past illness Narrative* Problem Noted [...] of this encounter (statuses as of 11/01/2022) [facility] of Past illness Narrative* Problem Noted [...] of this encounter (statuses as of 11/01/2022) [facility] of Past illness Narrative* Problem Noted [...] of this encounter (statuses as of 11/28/2022) [facility] of Past illness Narrative* Problem Noted [...] of this encounter (statuses as of 12/09/2022) [facility] of Past illness Narrative* Problem Noted [...] of this encounter (statuses as of 01/16/2023) [facility] Narrative* Problem Noted [...] of this encounter (statuses as of 02/07/2023) [facility] Narrative* Problem Noted [...] of this encounter (statuses as of 02/14/2023) [facility] Narrative* Problem Noted [...] of this encounter (statuses as of 04/23/2023) [facility] of Past illness Narrative* Problem Noted [...] of this encounter (statuses as of 05/08/2023) [place] + Plan note Future Appointments Appointment Date:07/16/2022 [...] N-Terminal proBNP 07/02/22 * N-Terminal proBNP 07/30/22 [facility] Evaluation note* Diagnosis Type 2 diabetes mellitus with neurological manifestations, controlled (HCC)- Primary Type II or unspecified type diabetes mellitus with neurological manifestations, not stated as uncontrolled BPH with urinary obstruction Hypertrophy of prostate with urinary obstruction and other lower urinary tract symptoms (LUTS) Atrial fibrillation, unspecified type (HCC) documented in this encounter [place] note* Diagnosis Essential hypertension Unspecified essential hypertension documented in this encounter [place] note* Diagnosis Uncontrolled type 2 diabetes mellitus with hyperglycemia (HCC)- Primary documented in this encounter [place] note* Diagnosis Uncontrolled type 2 diabetes mellitus with hyperglycemia (HCC) documented in this encounter [place] note* Diagnosis Uncontrolled type 2 diabetes mellitus with hyperglycemia (HCC) documented in this encounter [place] note* Diagnosis Uncontrolled type 2 diabetes mellitus with hyperglycemia (HCC)- Primary [facility]* Diagnosis Type 2 diabetes mellitus with neurological manifestations, controlled (HCC)- Primary Type II or unspecified type diabetes mellitus with neurological manifestations, not stated as uncontrolled documented in this encounter [place] note* Diagnosis Encounter for routine adult medical examination- Primary Atrial fibrillation, unspecified type (HCC) Type 2 diabetes mellitus with neurological manifestations, controlled (HCC) Type II or unspecified type diabetes mellitus with neurological manifestations, not stated as uncontrolled Essential hypertension Unspecified essential hypertension Atherosclerosis of [place] coronary artery of [place] heart without angina pectoris Obesity, Class III, 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) Morbid obesity CKD (chronic kidney disease) stage 4, GFR 15-29 ml/min (HCC) Chronic kidney disease, Stage IV (severe) Chronic diastolic CHF (congestive heart failure) (HCC) Chronic diastolic heart failure Recurrent epistaxis Epistaxis Wound of left lower extremity, sequela [facility]* Diagnosis Type 2 diabetes mellitus with neurological manifestations, controlled (HCC) Type II or unspecified type diabetes mellitus with neurological manifestations, not stated as uncontrolled documented in this encounter [place] note* Diagnosis Type 2 diabetes mellitus with neurological manifestations, controlled (HCC)- Primary Type II or unspecified type diabetes mellitus with neurological manifestations, not stated as uncontrolled [facility]* Diagnosis Type 2 diabetes mellitus with neurological manifestations, controlled (HCC) Type II or unspecified type diabetes mellitus with neurological manifestations, not stated as uncontrolled documented in this encounter [facility]* Diagnosis Type 2 diabetes mellitus with neurological manifestations, controlled (HCC)- Primary Type II or unspecified type diabetes mellitus with neurological manifestations, not stated as uncontrolled documented in this encounter [place] note* Diagnosis BPH with urinary obstruction Hypertrophy of prostate with urinary obstruction and other lower urinary tract symptoms (LUTS) documented in this encounter [place] note* Diagnosis Medicare annual wellness visit, subsequent- [...] single bacterial disease documented in this encounter [place] note* Diagnosis Hyperlipidemia, unspecified hyperlipidemia type- Primary Type 2 diabetes mellitus with neurological manifestations, controlled (HCC) Type II or unspecified type diabetes mellitus with neurological manifestations, not stated as uncontrolled Hypercalcemia documented in this encounter [facility] noteNo assessment information availableWUniversity Hospitals Health System Work Phone: Evaluation note* Diagnosis Skin infection- Primary Unspecified local infection of skin and subcutaneous tissue documented in this encounter [facility]* Diagnosis BPH with urinary obstruction Hypertrophy of prostate with urinary obstruction and other lower urinary tract symptoms (LUTS) Chronic diastolic CHF (congestive heart failure) (HCC) Chronic diastolic heart failure documented in this encounter [facility]* Diagnosis Type 2 diabetes mellitus with neurological manifestations, controlled (HCC) Type II or unspecified type diabetes mellitus with neurological manifestations, not stated as uncontrolled documented in this encounter [facility]* Diagnosis Type 2 diabetes mellitus with [...] single bacterial disease documented in this encounter [facility]* Diagnosis Type 2 diabetes mellitus with neurological manifestations, controlled (HCC) Type II or unspecified type diabetes mellitus with neurological manifestations, not stated as uncontrolled documented in this encounter [facility]* Diagnosis 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)- Primary documented in this encounter [facility]* Diagnosis BPH with urinary obstruction Hypertrophy of prostate with urinary obstruction and other lower urinary tract symptoms (LUTS) documented in this encounter [facility]* Diagnosis Groin pain, left documented in this encounter [facility]* Diagnosis 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- Primary 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) Non-nephrotic range proteinuria Proteinuria Mixed hyperlipidemia documented in this encounter [facility]* Diagnosis 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- Primary documented in this encounter [facility]* Diagnosis Screening for genitourinary condition Screening for other and unspecified genitourinary condition 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 documented in this encounter [facility] SystemEvaluation [facility]* Diagnosis Medicare annual wellness visit, subsequent- [...] and behavioral disorders documented in this encounter [facility]* Diagnosis 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 [facility] Elevated serum creatinine- Primary Other nonspecific findings on examination of blood documented in this encounter [facility] SystemEvaluation [facility]* Diagnosis HELDER on CPAP- Primary Obstructive sleep apnea (adult) (pediatric) Chronic diastolic CHF (congestive heart failure) (HCC) Chronic diastolic heart failure Type 2 diabetes mellitus with neurological manifestations, controlled (HCC) Type II or unspecified type diabetes mellitus with neurological manifestations, not stated as uncontrolled documented in this encounter [facility]* Diagnosis Hypercalcemia- Primary [facility]* Diagnosis Hypercalcemia- Primary [facility]* Diagnosis Hyperparathyroidism (HCC)- Primary Hyperparathyroidism, unspecified [facility] Diagnosis Elevated serum creatinine- Primary Other nonspecific findings on examination of blood [facility] Diagnosis Primary hyperparathyroidism (HCC)- Primary Primary hyperparathyroidism [facility]* Diagnosis 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 Hypercalcemia Shortness of breath 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 [facility] Diagnosis 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) Monoclonal paraproteinemia Shortness of breath [facility] Diagnosis Elevated serum creatinine- Primary Other nonspecific findings on examination of blood [facility] Diagnosis Hyperparathyroidism (HCC) Hyperparathyroidism, unspecified [facility]* Diagnosis Primary hyperparathyroidism (HCC)- Primary Primary hyperparathyroidism Hyperparathyroidism (HCC) Hyperparathyroidism, unspecified Primary hyperparathyroidism (HCC) Primary hyperparathyroidism documented in this encounter [place] note* Diagnosis Chronic cough Cough Primary hyperparathyroidism (HCC) Primary hyperparathyroidism documented in this encounter [place] note* Diagnosis Abnormal chest CT- Primary Nonspecific (abnormal) findings on radiological and other examination of other intrathoracic organs Primary hyperparathyroidism (HCC) Primary hyperparathyroidism documented in this encounter [place] note* Diagnosis Abnormal chest CT- Primary Nonspecific (abnormal) findings on radiological and other examination of other intrathoracic organs Current use of intermediate anticoagulation Long-term (current) use of anticoagulants Morbid obesity (HCC) Morbid obesity Stage 4 chronic kidney disease (HCC) MGUS (monoclonal gammopathy of unknown significance) Monoclonal paraproteinemia Primary hyperparathyroidism (HCC) Primary hyperparathyroidism documented in this encounter [place] note* Diagnosis Pneumonia of both lower lobes due to infectious organism- Primary Primary hyperparathyroidism (HCC) Primary hyperparathyroidism documented in this encounter [place] note* Diagnosis Pre-operative examination- Primary Preoperative examination, unspecified Chronic diastolic CHF (congestive heart failure) (HCC) Chronic diastolic heart failure Type 2 diabetes mellitus with neurological manifestations, controlled ([facility]) Type II or unspecified type diabetes mellitus with neurological manifestations, not stated as uncontrolled VHD (valvular heart disease) Endocarditis, valve unspecified, unspecified cause Atherosclerosis of [place] coronary artery of [place] heart without angina pectoris Atrial fibrillation, unspecified [...] Assessment & Plan Note - Jodie Bowers APRN.[employer]ER - 02/17/2025 8:49 AM EDT Associated Problem(s): [...] [facility] DATE OF EXAM: Dec 30 2024 11:13AM [facility] 0541 - CT CHEST WO IVCON [...] kidney disease) stage 4, GFR 15-29 ml/min ([facility]) Assessment: following nephrology Creatinine Date Value Ref [...] paroxymal atrial flutter, s/p cardioversion 2015 at [facility], rate controlled, daily Eliquis, reviewed to withhold 3 days prior to surgery, pt verbalized understanding. 11/23/2024 Dr. Strickland, Cardiology, Scanned into [employer] * Assessment & Plan Note - Jodie [...] scanned into epic 11/2024 Echo Scanned into [facility] Diagnosis Abnormal CT scan, chest- Primary [...] Endocarditis, valve unspecified, unspecified cause Atherosclerosis of [place] coronary artery of [place] heart without angina pectoris Atrial fibrillation, unspecified type (HCC) RBBB (right bundle branch block) Right bundle branch block Essential hypertension Unspecified essential hypertension Hyperlipidemia, unspecified hyperlipidemia type HELDER on CPAP Obstructive sleep apnea (adult) (pediatric) CKD (chronic kidney disease) stage 4, GFR 15-29 ml/min ([facility]) Chronic kidney disease, Stage IV (severe) Abnormal chest CT Nonspecific (abnormal) findings on radiological and other examination of other intrathoracic organs MGUS (monoclonal gammopathy of unknown significance) Monoclonal paraproteinemia Anemia, unspecified type BPH with obstruction/lower urinary tract symptoms Hypertrophy of prostate with urinary obstruction and other lower urinary tract symptoms (LUTS) documented in this encounter [place] note* Diagnosis Pre-operative examination- Primary Preoperative examination, unspecified Chronic diastolic CHF (congestive heart failure) (HCC) Chronic diastolic heart failure Type 2 diabetes mellitus with neurological manifestations, controlled (HCC) Type II or unspecified type diabetes mellitus with neurological manifestations, not stated as uncontrolled VHD (valvular heart disease) Endocarditis, valve unspecified, unspecified cause Atherosclerosis of [place] coronary artery of [place] heart without angina pectoris Atrial fibrillation, unspecified [...] 2 diabetes mellitus with neurological manifestations, controlled ([facility]) Type II or unspecified type diabetes mellitus with neurological manifestations, not stated as uncontrolled Essential hypertension Unspecified essential hypertension [facility]* Diagnosis Pre-operative examination- Primary Preoperative examination, unspecified Chronic diastolic CHF (congestive heart failure) (HCC) Chronic diastolic heart failure Type 2 diabetes mellitus with neurological manifestations, controlled ([facility]) Type II or unspecified type diabetes mellitus with neurological manifestations, not stated as uncontrolled VHD (valvular heart disease) Endocarditis, valve unspecified, unspecified cause Atherosclerosis of [place] coronary artery of [place] heart without angina pectoris Atrial fibrillation, unspecified type ([facility]) RBBB (right bundle branch block) Right bundle [...] to infectious organism [facility]* Diagnosis Pre-operative examination- Primary Preoperative examination, unspecified Chronic diastolic CHF (congestive heart failure) (HCC) Chronic diastolic heart failure Type 2 diabetes mellitus with neurological manifestations, controlled (HCC) Type II or unspecified type diabetes mellitus with neurological manifestations, not stated as uncontrolled VHD (valvular heart disease) Endocarditis, valve unspecified, unspecified cause Atherosclerosis of [place] coronary artery of [place] heart without angina pectoris Atrial fibrillation, unspecified [...] to infectious organism [facility] Diagnosis Pre-operative examination- Primary Preoperative examination, unspecified Chronic diastolic CHF (congestive heart failure) (HCC) Chronic diastolic heart failure Type 2 diabetes mellitus with neurological manifestations, controlled ([facility]) Type II or unspecified type diabetes mellitus with neurological manifestations, not stated as uncontrolled VHD (valvular heart disease) Endocarditis, valve unspecified, unspecified cause Atherosclerosis of [place] coronary artery of [place] heart without angina pectoris Atrial fibrillation, unspecified [...] tract symptoms (LUTS) documented [facility]* Diagnosis Onset Date Resolution Status Admit Date Anemia acute July 21, 2025 11:45am CHF (congestive heart failure) acute July 21, 025 11:45am CKD (chronic kidney disease) chronic July 21, 2025 11:45am [facility] Work Phone: Evaluation note* Diagnosis Pre-operative examination- Primary Preoperative examination, unspecified Chronic diastolic CHF (congestive heart failure) (HCC) Chronic diastolic heart failure Type 2 diabetes mellitus with neurological manifestations, controlled (HCC) Type II or unspecified type diabetes mellitus with neurological manifestations, not stated as uncontrolled VHD (valvular heart disease) Endocarditis, valve unspecified, unspecified cause Atherosclerosis of [place] coronary artery of [place] heart without angina pectoris Atrial fibrillation, unspecified type (HCC) RBBB (right bundle branch block) Right bundle branch block Essential hypertension Unspecified essential hypertension Hyperlipidemia, unspecified hyperlipidemia type HELDER on CPAP Obstructive sleep apnea (adult) (pediatric) CKD (chronic kidney disease) stage 4, GFR 15-29 ml/min ([facility]) Chronic kidney disease, Stage IV (severe) Abnormal chest CT Nonspecific (abnormal) findings on radiological and other examination of other intrathoracic organs MGUS (monoclonal gammopathy of unknown significance) Monoclonal paraproteinemia Anemia, unspecified type BPH with obstruction/lower urinary tract symptoms Hypertrophy of prostate with urinary obstruction and other lower urinary tract symptoms (LUTS) Chronic diastolic CHF (congestive heart failure) ([facility]) Chronic diastolic heart failure documented in this encounter [place] note* Diagnosis Pre-operative examination- Primary Preoperative examination, unspecified Chronic diastolic CHF (congestive heart failure) (HCC) Chronic diastolic heart failure Type 2 diabetes mellitus with neurological manifestations, controlled ([facility]) Type II or unspecified type diabetes mellitus with neurological manifestations, not stated as uncontrolled VHD (valvular heart disease) Endocarditis, valve unspecified, unspecified cause Atherosclerosis of [place] coronary artery of [place] heart without angina pectoris Atrial fibrillation, unspecified type (HCC) RBBB (right bundle branch block) Right bundle branch block Essential hypertension Unspecified essential hypertension Hyperlipidemia, unspecified hyperlipidemia type HELDER on CPAP Obstructive sleep apnea (adult) (pediatric) CKD (chronic kidney disease) stage 4, GFR 15-29 ml/min ([facility]) Chronic kidney disease, Stage IV (severe) Abnormal chest CT Nonspecific (abnormal) findings on radiological and other examination of other intrathoracic organs MGUS (monoclonal gammopathy of unknown significance) Monoclonal paraproteinemia Anemia, unspecified type BPH with obstruction/lower urinary tract symptoms Hypertrophy of prostate with urinary obstruction and other lower urinary tract symptoms (LUTS) Chronic diastolic CHF (congestive heart failure) ([facility])- Primary Chronic diastolic heart failure Encounter for [...] buttock, stage 1 documented [facility] this encounter [facility] Author Nathaniel Beverly [facility] Note Date/Time July 21, 2025 12:06pm [facility] Medical Records Department [address] [place] [address] H&P Exam - Hospitalist 07/21/25 1159 MR#: [id number] Acct: [id number] Name: FEDERICO HU Rep #:[id number] : 1935 89 From: Nathaniel Beverly MD PCP: Dr. Nithin Acevedo MD Status:A DM IN Location: [place] [address] HPI - General General Date of Admission: [...] admitted toa monitored bed for further management [facility] Medical History Afib CAD (coronary [...] Reaction Status Date / Time finasteride (From [email or web address]) Allergy Hives Verified 07/21/25 10:26 Social History [...] 74.0 H, Lymph % (Auto) 12.7 L, [place] % (Auto) 9.0, Eos % (Auto) 2.9, [...] and recommendations as discussed above. Reading Location: [id number] Assessment & Plan Assessment/Plan (1) CKD (chronic [...] Multi Select Codes Visit Charges Visit Charges: 30921 Init Hosp Hospitalists' Procedures Procedures: 94127 Advncd Care Plan 30 Min 07/21/25 1206 <Electronically signed by Nathaniel Beverly MD> Cosigner Signature (if applicable): CC: Dr. Nathaniel Beverly MD; Dr. Nithin Acevedo MD~ Signed [facility] Work Phone: Hospital course Narrative No data available for this section [facility] Hospital Discharge instructions No data available for this section [facility] Hospital Discharge instructions Additional Instructions Please follow-up with your PCP, take antibiotics as directed. 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 Procedures US KIDNEY/BLADDER US KIDNEY/BLADDER US RETROPERITONEAL REAL TIME W/IMAGE COMPLETE Velia Richter DO [address] [place] [address] [place] [address] Referral ID Status Reason Start Date Expiration Date Visits Requested Visits Authorized [id number] New Request Auto-Generat ed Referral 10/01/2025 1 1 [facility] for referral (narrative)* Diagnostic Procedure Only (Routine) - New Request Specialty Diagnoses / Procedures Referred By Denver t Referred To Contact MOLECULAR & FUNCTIONAL IMAGING Diagnoses Hyperparathyroidism (HCC) Procedures NM PARATHYROID W SPECT/CT PARATHYROID IMAGING W/TOMOGRAPHIC SPECT & CT Kristin Guevara MD [address] [place] [id number] Molecular & Functional Imaging [address] [place] [address] Referral ID Status Reason Start Date Expiration Date Visits Requested Visits Authorized [id number] New Request Auto-Generat ed Referral 12/14/2024 01/13/2026 1 1 [facility] for referral (narrative)No reason for referral information availableWUniversity Hospitals Health System Work Phone: [facility] N[facility]* Diagnostic Procedure Only (Routine) - Closed Specialty Diagnoses / Procedures Referred By Denver vance Referred To Contact MOLECULAR & FUNCTIONAL IMAGING Diagnoses Hyperparathyroidism (HCC) Procedures NM PARATHYROID W SPECT/CT PARATHYROID IMAGING W/TOMOGRAPHIC SPECT & CT Kristin Guevara MD [address] [place] [address] Phone: tel: fax: Molecular Imaging [address] [place] [address] Phone: tel: Referral ID Status Reason Start Date Expiration Date V isits Requested Visits Authorized [id number] Closed Auto-Generate d Referral 12/14/2024 01/13/2026 1 1 [facility] for visit Narrative* MRI/CT (Routine) - Closed Specialty Diagnoses / Procedures Referred By Denver t Referred To Contact CT IMAGING Diagnoses Pneumonia of both lower lobes due to infectious organism Procedures CT CHEST WO IVCON DIAGNOSTIC COMPUTED TOMOGRAPHY THORAX W/O [facility] MD [address] [place] [address] Phone: tel: fax: CT IMAGING [facility] Referral ID Status Reason Start Date Expiration Date V isits Requested Visits Authorized [id number] Closed Auto-Generate d Referral 03/28/2025 02/23/2026 1 1 [facility] Summary Purpose Family History No Family History Records Found Relationship Condition Age at Onset Recorded Date/T ela Unknown Family History?- Unknown August 6:52am Family History?- Unknown April 16, 7:38am Advance Directives No Advanced Directives Records Found Advance Directive Response Recorded Date/ Time Advance Directives Yes August 20, 2016 9:56am Living Will Yes March 27, 2024 1 2:33pm Power of Thermal Engineer Yes March 27, 2024 12:33pm Name of Medical Power of Thermal Engineer Aliza Hu March 27, 2024 12:33pm Advance Directive Response Recorded Date/ Time Do you have a Healthcare Power of Thermal Engineer? No July 21, 2025 10:42am Advance Directives Yes August 20, 2016 9:56am Advance Directive Response Recorded Date/ Time Do you have a Healthcare Pow er of Thermal Engineer? Yes July 21, 2025 12:32pm Name of Medical Power of Thermal Engineer Aliza Hu- w sade July 21, 2025 12:32pm Advance Directives Yes August 20, 2016 9:56am Reason for Referral Specialty Diagnoses / Procedures Referred By Denver vance Referred To Contact Diagnoses MGUS (monoclonal gammopathy of unknown significance) Procedures [facility] FOLLOW-UP OFFICE/OUTPATIENT [facility] HIGH MDM 60 MINUTES Homer [place] [address] [place] [id number] Referral ID Status Reason Start Date Expiration Date Visits Requested Visits Authorized [id number] Authorized PCP Requested Referral 12/22/2024 12/22/2025 1 1 Specialty Diagnoses / Procedures Referred By Denver vance Referred To Contact CT IMAGING Diagnoses 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) Shortness of breath Procedures CT CHEST WO IVCON DIAGNOSTIC COMPUTED TOMOGRAPHY THORAX W/O CNTRST Homer [place] [address] [place] [id number] [place] [address] Referral ID Status Reason Start Date Expiration Date Visits Requested Visits Authorized [id number] Authorized Auto-Generat ed Referral 12/21/2024 01/19/2026 1 1 Specialty Diagnoses / Procedures Referred By Denver vance Referred To Contact XR IMAGING Diagnoses 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) Procedures XR BONE SURVEY ROUTINE RADIOLOGIC EXAMINATION OSSEOUS SURVEY COMPL Homer Carpio, PLANNING DIRECTOR.RAJ[place]ER, [place] [address] [place] [address] [place] [address] Referral ID Status Reason Start Date Expiration Date Visits Requested Visits Authorized [id number] New Request Auto-Generat ed Referral 12/13/2024 01/12/2026 1 1 Specialty Diagnoses / Procedures Referred By Denver vance Referred To Contact Nephrology Diagnoses 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) Procedures CONSULT TO NEPHROLOGY OFFICE/OUTPATIENT [facility] 60 MINUTES Katherin Mckinnon, PLANNING DIRECTOR.[employer] TEACHER [address] [place] [address] Referral ID Status Reason Start Date Expiration Date Visits Requested Visits Authorized [id number] Authorized PCP Requested Referral 08/10/2024 08/10/2025 1 1 Specialty Diagnoses / Procedures Referred By Denver vance Referred To Contact Ent - Otolaryngology Diagnoses Recurrent epistaxis Procedures CONSULT TO ENT Nithin Acevedo MD [address] [place] [address] Referral ID Status Reason Start Date Expiration Date Visits Requested Visits Authorized [id number] Ref Not Required PCP Requested Referral 06/12/2022 [...] section and content) DATE CRE[facility] DATE CREATED AUTHOR AUTHOR'S ORGANIZ ATION 05/06/2018 [place] [facility] DATE CREATED AUTHOR AUTHOR'S ORGANIZ ATION [facility] DATE CREATED AUTHOR AUTHOR'S ORGANIZ ATION 08/19/2022 [facility] ([place]) DATE CREATED AUTHOR AUTHOR'S ORGANIZ ATION 08/11/2025 [facility] DATE CREATED AUTHOR AUTHOR'S ORGANIZ ATION 09/18/2025 [facility] DATE CREATED AUTHOR AUTHOR'S ORGANIZ ATION 09/21/2025 [facility] Source Comments (unrecognize d section and content) In the event this informatio n is protected by the Federal Confidentiality of Alcohol and Drug Abuse Patient Records regulations: The Federal rules restrict any use of the information to criminally investigate or prosecute any alcohol or drug abuse patient.[facility] System[facility] the event this information is protected by the Federal Confidentiality of Alcohol and Drug Abuse Patient Records regulations: The Federal rules restrict any use of the information to criminally investigate or prosecute any alcohol or drug abuse patient.[facility] SystemIn the event this information is protected by the Federal Confidentiality of Alcohol and Drug Abuse Patient Records regulations: The Federal rules restrict any use of the information to criminally investigate or prosecute any alcohol or drug abuse patient.[facility] SystemIn the event this information is protected by the Federal Confidentiality of Alcohol and Drug Abuse Patient Records regulations: The Federal rules restrict any use of the information to criminally investigate or prosecute any alcohol or drug abuse patient.[facility] SystemIn the event this information is protected by the Federal Confidentiality of Alcohol and Drug Abuse Patient Records regulations: The Federal rules restrict any use of the information to criminally investigate or prosecute any alcohol or drug abuse patient.[facility] SystemIn the event this information is protected by the Federal Confidentiality of Alcohol and Drug Abuse Patient Records regulations: The Federal rules restrict any use of the information to criminally investigate or prosecute any alcohol or drug abuse patient.[facility] SystemIn the event this information is protected by the Federal Confidentiality of Alcohol and Drug Abuse Patient Records regulations: The Federal rules restrict any use of the information to criminally investigate or prosecute any alcohol or drug abuse patient.[facility] SystemIn the event this information is protected by the Federal Confidentiality of Alcohol and Drug Abuse Patient Records regulations: The Federal rules restrict any use of the information to criminally investigate or prosecute any alcohol or drug abuse patient.[facility] SystemIn the event this information is protected by the Federal Confidentiality of Alcohol and Drug Abuse Patient Records regulations: The Federal rules restrict any use of the information to criminally investigate or prosecute any alcohol or drug abuse patient.[facility] SystemIn the event this information is protected by the Federal Confidentiality of Alcohol and Drug Abuse Patient Records regulations: The Federal rules restrict any use of the information to criminally investigate or prosecute any alcohol or drug abuse patient.[facility] SystemIn the event this information is protected by the Federal Confidentiality of Alcohol and Drug Abuse Patient Records regulations: The Federal rules restrict any use of the information to criminally investigate or prosecute any alcohol or drug abuse patient.[facility] SystemIn the event this information is protected by the Federal Confidentiality of Alcohol and Drug Abuse Patient Records regulations: The Federal rules restrict any use of the information to criminally investigate or prosecute any alcohol or drug abuse patient.[facility] SystemIn the event this information is protected by the Federal Confidentiality of Alcohol and Drug Abuse Patient Records regulations: The Federal rules restrict any use of the information to criminally investigate or prosecute any alcohol or drug abuse patient.[facility] SystemIn the event this information is protected by the Federal Confidentiality of Alcohol and Drug Abuse Patient Records regulations: The Federal rules restrict any use of the information to criminally investigate or prosecute any alcohol or drug abuse patient.[facility] SystemIn the event this information is protected by the Federal Confidentiality of Alcohol and Drug Abuse Patient Records regulations: The Federal rules restrict any use of the information to criminally investigate or prosecute any alcohol or drug abuse patient.[facility] SystemIn the event this information is protected by the Federal Confidentiality of Alcohol and Drug Abuse Patient Records regulations: The Federal rules restrict any use of the information to criminally investigate or prosecute any alcohol or drug abuse patient.[facility] SystemIn the event this information is protected by the Federal Confidentiality of Alcohol and Drug Abuse Patient Records regulations: The Federal rules restrict any use of the information to criminally investigate or prosecute any alcohol or drug abuse patient.[facility] SystemIn the event this information is protected by the Federal Confidentiality of Alcohol and Drug Abuse Patient Records regulations: The Federal rules restrict any use of the information to criminally investigate or prosecute any alcohol or drug abuse patient.[facility] SystemIn the event this information is protected by the Federal Confidentiality of Alcohol and Drug Abuse Patient Records regulations: The Federal rules restrict any use of the information to criminally investigate or prosecute any alcohol or drug abuse patient.[facility] SystemIn the event this information is protected by the Federal Confidentiality of Alcohol and Drug Abuse Patient Records regulations: The Federal rules restrict any use of the information to criminally investigate or prosecute any alcohol or drug abuse patient.[facility] SystemIn the event this information is protected by the Federal Confidentiality of Alcohol and Drug Abuse Patient Records regulations: The Federal rules restrict any use of the information to criminally investigate or prosecute any alcohol or drug abuse patient.[facility] SystemIn the event this information is protected by the Federal Confidentiality of Alcohol and Drug Abuse Patient Records regulations: The Federal rules restrict any use of the information to criminally investigate or prosecute any alcohol or drug abuse patient.[facility] SystemIn the event this information is protected by the Federal Confidentiality of Alcohol and Drug Abuse Patient Records regulations: The Federal rules restrict any use of the information to criminally investigate or prosecute any alcohol or drug abuse patient.[facility] SystemIn the event this information is protected by the Federal Confidentiality of Alcohol and Drug Abuse Patient Records regulations: The Federal rules restrict any use of the information to criminally investigate or prosecute any alcohol or drug abuse patient.[facility] SystemIn the event this information is protected by the Federal Confidentiality of Alcohol and Drug Abuse Patient Records regulations: The Federal rules restrict any use of the information to criminally investigate or prosecute any alcohol or drug abuse patient.[facility] SystemIn the event this information is protected by the Federal Confidentiality of Alcohol and Drug Abuse Patient Records regulations: The Federal rules restrict any use of the information to criminally investigate or prosecute any alcohol or drug abuse patient.[facility] SystemIn the event this information is protected by the Federal Confidentiality of Alcohol and Drug Abuse Patient Records regulations: The Federal rules restrict any use of the information to criminally investigate or prosecute any alcohol or drug abuse patient.[facility] SystemIn the event this information is protected by the Federal Confidentiality of Alcohol and Drug Abuse Patient Records regulations: The Federal rules restrict any use of the information to criminally investigate or prosecute any alcohol or drug abuse patient.[facility] SystemIn the event this information is protected by the Federal Confidentiality of Alcohol and Drug Abuse Patient Records regulations: The Federal rules restrict any use of the information to criminally investigate or prosecute any alcohol or drug abuse patient.[facility] SystemIn the event this information is protected by the Federal Confidentiality of Alcohol and Drug Abuse Patient Records regulations: The Federal rules restrict any use of the information to criminally investigate or prosecute any alcohol or drug abuse patient.[facility] SystemIn the event this information is protected by the Federal Confidentiality of Alcohol and Drug Abuse Patient Records regulations: The Federal rules restrict any use of the information to criminally investigate or prosecute any alcohol or drug abuse patient.[facility] SystemIn the event this information is protected by the Federal Confidentiality of Alcohol and Drug Abuse Patient Records regulations: The Federal rules restrict any use of the information to criminally investigate or prosecute any alcohol or drug abuse patient.[facility] SystemIn the event this information is protected by the Federal Confidentiality of Alcohol and Drug Abuse Patient Records regulations: The Federal rules restrict any use of the information to criminally investigate or prosecute any alcohol or drug abuse patient.[facility] SystemIn the event this information is protected by the Federal Confidentiality of Alcohol and Drug Abuse Patient Records regulations: The Federal rules restrict any use of the information to criminally investigate or prosecute any alcohol or drug abuse patient.[facility] SystemIn the event this information is protected by the Federal Confidentiality of Alcohol and Drug Abuse Patient Records regulations: The Federal rules restrict any use of the information to criminally investigate or prosecute any alcohol or drug abuse patient.[facility] SystemIn the event this information is protected by the Federal Confidentiality of Alcohol and Drug Abuse Patient Records regulations: The Federal rules restrict any use of the information to criminally investigate or prosecute any alcohol or drug abuse patient.[facility] SystemIn the event this information is protected by the Federal Confidentiality of Alcohol and Drug Abuse Patient Records regulations: The Federal rules restrict any use of the information to criminally investigate or prosecute any alcohol or drug abuse patient.[facility] SystemIn the event this information is protected by the Federal Confidentiality of Alcohol and Drug Abuse Patient Records regulations: The Federal rules restrict any use of the information to criminally investigate or prosecute any alcohol or drug abuse patient.[facility] SystemIn the event this information is protected by the Federal Confidentiality of Alcohol and Drug Abuse Patient Records regulations: The Federal rules restrict any use of the information to criminally investigate or prosecute any alcohol or drug abuse patient.[facility] SystemIn the event this information is protected by the Federal Confidentiality of Alcohol and Drug Abuse Patient Records regulations: The Federal rules restrict any use of the information to criminally investigate or prosecute any alcohol or drug abuse patient.[facility] SystemIn the event this information is protected by the Federal Confidentiality of Alcohol and Drug Abuse Patient Records regulations: The Federal rules restrict any use of the information to criminally investigate or prosecute any alcohol or drug abuse patient.[facility] SystemIn the event this information is protected by the Federal Confidentiality of Alcohol and Drug Abuse Patient Records regulations: The Federal rules restrict any use of the information to criminally investigate or prosecute any alcohol or drug abuse patient.[facility] SystemIn the event this information is protected by the Federal Confidentiality of Alcohol and Drug Abuse Patient Records regulations: The Federal rules restrict any use of the information to criminally investigate or prosecute any alcohol or drug abuse patient.[facility] SystemIn the event this information is protected by the Federal Confidentiality of Alcohol and Drug Abuse Patient Records regulations: The Federal rules restrict any use of the information to criminally investigate or prosecute any alcohol or drug abuse patient.[facility] SystemIn the event this information is protected by the Federal Confidentiality of Alcohol and Drug Abuse Patient Records regulations: The Federal rules restrict any use of the information to criminally investigate or prosecute any alcohol or drug abuse patient.[facility] SystemIn the event this information is protected by the Federal Confidentiality of Alcohol and Drug Abuse Patient Records regulations: The Federal rules restrict any use of the information to criminally investigate or prosecute any alcohol or drug abuse patient.[facility] SystemIn the event this information is protected by the Federal Confidentiality of Alcohol and Drug Abuse Patient Records regulations: The Federal rules restrict any use of the information to criminally investigate or prosecute any alcohol or drug abuse patient.[facility] SystemIn the event this information is protected by the Federal Confidentiality of Alcohol and Drug Abuse Patient Records regulations: The Federal rules restrict any use of the information to criminally investigate or prosecute any alcohol or drug abuse patient.[facility] SystemIn the event this information is protected by the Federal Confidentiality of Alcohol and Drug Abuse Patient Records regulations: The Federal rules restrict any use of the information to criminally investigate or prosecute any alcohol or drug abuse patient.[facility] SystemIn the event this information is protected by the Federal Confidentiality of Alcohol and Drug Abuse Patient Records regulations: The Federal rules restrict any use of the information to criminally investigate or prosecute any alcohol or drug abuse patient.[facility] SystemIn the event this information is protected by the Federal Confidentiality of Alcohol and Drug Abuse Patient Records regulations: The Federal rules restrict any use of the information to criminally investigate or prosecute any alcohol or drug abuse patient.[facility] SystemIn the event this information is protected by the Federal Confidentiality of Alcohol and Drug Abuse Patient Records regulations: The Federal rules restrict any use of the information to criminally investigate or prosecute any alcohol or drug abuse patient.[facility] SystemIn the event this information is protected by the Federal Confidentiality of Alcohol and Drug Abuse Patient Records regulations: The Federal rules restrict any use of the information to criminally investigate or prosecute any alcohol or drug abuse patient.[facility] SystemIn the event this information is protected by the Federal Confidentiality of Alcohol and Drug Abuse Patient Records regulations: The Federal rules restrict any use of the information to criminally investigate or prosecute any alcohol or drug abuse patient.[facility] SystemIn the event this information is protected by the Federal Confidentiality of Alcohol and Drug Abuse Patient Records regulations: The Federal rules restrict any use of the information to criminally investigate or prosecute any alcohol or drug abuse patient.[facility] SystemIn the event this information is protected by the Federal Confidentiality of Alcohol and Drug Abuse Patient Records regulations: The Federal rules restrict any use of the information to criminally investigate or prosecute any alcohol or drug abuse patient.[facility] SystemIn the event this information is protected by the Federal Confidentiality of Alcohol and Drug Abuse Patient Records regulations: The Federal rules restrict any use of the information to criminally investigate or prosecute any alcohol or drug abuse patient.[facility] SystemIn the event this information is protected by the Federal Confidentiality of Alcohol and Drug Abuse Patient Records regulations: The Federal rules restrict any use of the information to criminally investigate or prosecute any alcohol or drug abuse patient.[facility] SystemIn the event this information is protected by the Federal Confidentiality of Alcohol and Drug Abuse Patient Records regulations: The Federal rules restrict any use of the information to criminally investigate or prosecute any alcohol or drug abuse patient.[facility] SystemIn the event this information is protected by the Federal Confidentiality of Alcohol and Drug Abuse Patient Records regulations: The Federal rules restrict any use of the information to criminally investigate or prosecute any alcohol or drug abuse patient.[facility] SystemIn the event this information is protected by the Federal Confidentiality of Alcohol and Drug Abuse Patient Records regulations: The Federal rules restrict any use of the information to criminally investigate or prosecute any alcohol or drug abuse patient.[facility] SystemIn the event this information is protected by the Federal Confidentiality of Alcohol and Drug Abuse Patient Records regulations: The Federal rules restrict any use of the information to criminally investigate or prosecute any alcohol or drug abuse patient.[facility] SystemIn the event this information is protected by the Federal Confidentiality of Alcohol and Drug Abuse Patient Records regulations: The Federal rules restrict any use of the information to criminally investigate or prosecute any alcohol or drug abuse patient.[facility] SystemIn the event this information is protected by the Federal Confidentiality of Alcohol and Drug Abuse Patient Records regulations: The Federal rules restrict any use of the information to criminally investigate or prosecute any alcohol or drug abuse patient.[facility] SystemIn the event this information is protected by the Federal Confidentiality of Alcohol and Drug Abuse Patient Records regulations: The Federal rules restrict any use of the information to criminally investigate or prosecute any alcohol or drug abuse patient.[facility] SystemIn the event this information is protected by the Federal Confidentiality of Alcohol and Drug Abuse Patient Records regulations: The Federal rules restrict any use of the information to criminally investigate or prosecute any alcohol or drug abuse patient.[facility] SystemIn the event this information is protected by the Federal Confidentiality of Alcohol and Drug Abuse Patient Records regulations: The Federal rules restrict any use of the information to criminally investigate or prosecute any alcohol or drug abuse patient.[facility] SystemIn the event this information is protected by the Federal Confidentiality of Alcohol and Drug Abuse Patient Records regulations: The Federal rules restrict any use of the information to criminally investigate or prosecute any alcohol or drug abuse patient.[facility] SystemIn the event this information is protected by the Federal Confidentiality of Alcohol and Drug Abuse Patient Records regulations: The Federal rules restrict any use of the information to criminally investigate or prosecute any alcohol or drug abuse patient.[facility] SystemIn the event this information is protected by the Federal Confidentiality of Alcohol and Drug Abuse Patient Records regulations: The Federal rules restrict any use of the information to criminally investigate or prosecute any alcohol or drug abuse patient.[facility] SystemIn the event this information is protected by the Federal Confidentiality of Alcohol and Drug Abuse Patient Records regulations: The Federal rules restrict any use of the information to criminally investigate or prosecute any alcohol or drug abuse patient.[facility] SystemIn the event this information is protected by the Federal Confidentiality of Alcohol and Drug Abuse Patient Records regulations: The Federal rules restrict any use of the information to criminally investigate or prosecute any alcohol or drug abuse patient.[facility] SystemIn the event this information is protected by the Federal Confidentiality of Alcohol and Drug Abuse Patient Records regulations: The Federal rules restrict any use of the information to criminally investigate or prosecute any alcohol or drug abuse patient.[facility] SystemIn the event this information is protected by the Federal Confidentiality of Alcohol and Drug Abuse Patient Records regulations: The Federal rules restrict any use of the information to criminally investigate or prosecute any alcohol or drug abuse patient.[facility] SystemIn the event this information is protected by the Federal Confidentiality of Alcohol and Drug Abuse Patient Records regulations: The Federal rules restrict any use of the information to criminally investigate or prosecute any alcohol or drug abuse patient.[facility] SystemIn the event this information is protected by the Federal Confidentiality of Alcohol and Drug Abuse Patient Records regulations: The Federal rules restrict any use of the information to criminally investigate or prosecute any alcohol or drug abuse patient.[facility] SystemIn the event this information is protected by the Federal Confidentiality of Alcohol and Drug Abuse Patient Records regulations: The Federal rules restrict any use of the information to criminally investigate or prosecute any alcohol or drug abuse patient.[facility] SystemIn the event this information is protected by the Federal Confidentiality of Alcohol and Drug Abuse Patient Records regulations: The Federal rules restrict any use of the information to criminally investigate or prosecute any alcohol or drug abuse patient.[facility] SystemIn the event this information is protected by the Federal Confidentiality of Alcohol and Drug Abuse Patient Records regulations: The Federal rules restrict any use of the information to criminally investigate or prosecute any alcohol or drug abuse patient.[facility] SystemIn the event this information is protected by the Federal Confidentiality of Alcohol and Drug Abuse Patient Records regulations: The Federal rules restrict any use of the information to criminally investigate or prosecute any alcohol or drug abuse patient.[facility] SystemIn the event this information is protected by the Federal Confidentiality of Alcohol and Drug Abuse Patient Records regulations: The Federal rules restrict any use of the information to criminally investigate or prosecute any alcohol or drug abuse patient.[facility] SystemIn the event this information is protected by the Federal Confidentiality of Alcohol and Drug Abuse Patient Records regulations: The Federal rules restrict any use of the information to criminally investigate or prosecute any alcohol or drug abuse patient.[facility] SystemIn the event this information is protected by the Federal Confidentiality of Alcohol and Drug Abuse Patient Records regulations: The Federal rules restrict any use of the information to criminally investigate or prosecute any alcohol or drug abuse patient.[facility] SystemIn the event this information is protected by the Federal Confidentiality of Alcohol and Drug Abuse Patient Records regulations: The Federal rules restrict any use of the information to criminally investigate or prosecute any alcohol or drug abuse patient.[facility] SystemIn the event this information is protected by the Federal Confidentiality of Alcohol and Drug Abuse Patient Records regulations: The Federal rules restrict any use of the information to criminally investigate or prosecute any alcohol or drug abuse patient.[facility] SystemIn the event this information is protected by the Federal Confidentiality of Alcohol and Drug Abuse Patient Records regulations: The Federal rules restrict any use of the information to criminally investigate or prosecute any alcohol or drug abuse patient.[facility] SystemIn the event this information is protected by the Federal Confidentiality of Alcohol and Drug Abuse Patient Records regulations: The Federal rules restrict any use of the information to criminally investigate or prosecute any alcohol or drug abuse patient.[facility] SystemIn the event this information is protected by the Federal Confidentiality of Alcohol and Drug Abuse Patient Records regulations: The Federal rules restrict any use of the information to criminally investigate or prosecute any alcohol or drug abuse patient.[facility] SystemIn the event this information is protected by the Federal Confidentiality of Alcohol and Drug Abuse Patient Records regulations: The Federal rules restrict any use of the information to criminally investigate or prosecute any alcohol or drug abuse patient.[facility] SystemIn the event this information is protected by the Federal Confidentiality of Alcohol and Drug Abuse Patient Records regulations: The Federal rules restrict any use of the information to criminally investigate or prosecute any alcohol or drug abuse patient.[facility] SystemIn the event this information is protected by the Federal Confidentiality of Alcohol and Drug Abuse Patient Records regulations: The Federal rules restrict any use of the information to criminally investigate or prosecute any alcohol or drug abuse patient.[facility] SystemIn the event this information is protected by the Federal Confidentiality of Alcohol and Drug Abuse Patient Records regulations: The Federal rules restrict any use of the information to criminally investigate or prosecute any alcohol or drug abuse patient.[facility] SystemIn the event this information is protected by the Federal Confidentiality of Alcohol and Drug Abuse Patient Records regulations: The Federal rules restrict any use of the information to criminally investigate or prosecute any alcohol or drug abuse patient.[facility] SystemIn the event this information is protected by the Federal Confidentiality of Alcohol and Drug Abuse Patient Records regulations: The Federal rules restrict any use of the information to criminally investigate or prosecute any alcohol or drug abuse patient.[facility] SystemIn the event this information is protected by the Federal Confidentiality of Alcohol and Drug Abuse Patient Records regulations: The Federal rules restrict any use of the information to criminally investigate or prosecute any alcohol or drug abuse patient.[facility] SystemIn the event this information is protected by the Federal Confidentiality of Alcohol and Drug Abuse Patient Records regulations: The Federal rules restrict any use of the information to criminally investigate or prosecute any alcohol or drug abuse patient.[facility] SystemIn the event this information is protected by the Federal Confidentiality of Alcohol and Drug Abuse Patient Records regulations: The Federal rules restrict any use of the information to criminally investigate or prosecute any alcohol or drug abuse patient.[facility] SystemIn the event this information is protected by the Federal Confidentiality of Alcohol and Drug Abuse Patient Records regulations: The Federal rules restrict any use of the information to criminally investigate or prosecute any alcohol or drug abuse patient.[facility] SystemIn the event this information is protected by the Federal Confidentiality of Alcohol and Drug Abuse Patient Records regulations: The Federal rules restrict any use of the information to criminally investigate or prosecute any alcohol or drug abuse patient.[facility] SystemIn the event this information is protected by the Federal Confidentiality of Alcohol and Drug Abuse Patient Records regulations: The Federal rules restrict any use of the information to criminally investigate or prosecute any alcohol or drug abuse patient.[facility] SystemIn the event this information is protected by the Federal Confidentiality of Alcohol and Drug Abuse Patient Records regulations: The Federal rules restrict any use of the information to criminally investigate or prosecute any alcohol or drug abuse patient.[facility] SystemIn the event this information is protected by the Federal Confidentiality of Alcohol and Drug Abuse Patient Records regulations: The Federal rules restrict any use of the information to criminally investigate or prosecute any alcohol or drug abuse patient.[facility] SystemIn the event this information is protected by the Federal Confidentiality of Alcohol and Drug Abuse Patient Records regulations: The Federal rules restrict any use of the information to criminally investigate or prosecute any alcohol or drug abuse patient.[facility] SystemIn the event this information is protected by the Federal Confidentiality of Alcohol and Drug Abuse Patient Records regulations: The Federal rules restrict any use of the information to criminally investigate or prosecute any alcohol or drug abuse patient.[facility] Reason for Visit (unrecogniz ed section and [...] HIGH MDM 60 MINUTES Katherin Mckinnon M, PLANNING DIRECTOR.[employer] [address] [place] [address] Referral ID Status Reason Start Date Expiration Date V isits Requested Visits Authorized [id number] Closed PCP Requested Referral 08/10/2024 08/10/2025 1 [...] COMPLETE Velia Richter DO [address] [place] [address] [facility] [place] [address] Referral ID Status Reason Start Date Expiration Date V isits Requested Visits Authorized [id number] Closed Auto-Generate d Referral 09/01/2024 10/01/2025 1 [...] Diagnoses Hypercalcemia Procedures CONSULT TO HEMATOLOGY/ONCOLOGY OFFICE/OUTPATIENT [facility] 60 MINUTES Christal Palomares, PLANNING DIRECTOR.[employer] [address] [place] [address] Referral ID Status Reason Start Date Expiration Date V isits Requested Visits Authorized [id number] Closed PCP Requested Referral 12/02/2024 12/01/2025 [address] Specialty Diagnoses / Procedures Referred By Contac t Referred To Contact CT [facility]AG[facility] Diagnoses 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) Shortness of breath Procedures CT CHEST WO IVCON DIAGNOSTIC COMPUTED TOMOGRAPHY THORAX W/O CNTRST Homer Carpio, PLANNING DIRECTOR.[employer], [place] [address] [place] [id number] Phone: tel: fax: [facility] [place] [address] Referral ID Status Reason Start Date Expiration Date V isits Requested Visits Authorized [id number] Closed Auto-Generate d Referral 12/21/2024 01/19/2026 1 1 Reason Comments Radiology [place] Specialty Diagnoses / Procedures Referred By Contac t Referred To Contact MOLECULAR & FUNCTIONAL IMAGING Diagnoses Hyperparathyroidism (HCC) Procedures NM PARATHYROID W SPECT/CT PARATHYROID IMAGING W/TOMOGRAPHIC SPECT & CT Kristin Guevara MD [address] [place] [address] Phone: tel: fax: Molecular Imaging [address] [place] [address] Phone: tel: Referral ID Status Reason Start Date Expiration Date V isits Requested Visits Authorized [id number] Closed Auto-Generate d Referral 12/14/2024 01/13/2026 1 1 Reason Comments Results Reason Comments Patient Update Reason Comments preop pacc / OR MM 03/11/24 Parathyroidec filemon Reason Comments Spirometry Specialty Diagnoses / Procedures Referred By Contac t Referred To [facility] Diagnoses Chronic cough Procedures SPIROMETRY WITH DILATOR IF OBSTRUCTED BRNCDILAT RSPSE SPMTRY PRE&POST-BRNCDILAT Viet Schulz MD [address] [place] [address] Phone: tel: fax: [facility] [place] [address] [facility] [place] [address] Referral ID Status Reason Start Date Expiration Date V isits Requested Visits Authorized [id number] Closed Auto-Generate d Referral 01/18/2025 02/17/2026 1 1 Reason Comments Abnormal Chest X-ray Reason Comments Patient Update Reason Comments Preparations For Surgery PACC Reason Comments Consult surgery 03/11/25 at [facility] Reason Comments Pulmonary Optimization Reason Onset Date Comments Results - Ct 01/03/2025 Reason Comments Follow Up Reason Comments Follow Up Reason Onset Date Comments Refill Request 07/01/2025 Reason Onset Date Comments Refill Request 07/25/2025 Reason Comments Transition Of Care Reason Comments Orders Reason Comments Home Care Management Reason Comments FYI- [facility] Nurse POC wound care Reason Comments FYI-No Action Needed Reason Comments Insurance Authorization Care Teams (unrecognized sec tion and content) Door Manager Relationship Specialty Start Date End Date Nithin Acevedo MD [address] [place], [place] [id number] PCP - General 11/30/09 Adriana Garrison RPh [address] [place], [place] [id number] Pharmacist Pharmacy 12/26/20 Door Manager Relationship Specialty Start Date End Date Nithin Acevedo MD [address] [place], [place] [id number] PCP - General 11/30/09 MarcoAdriana you, [facility] [address] [place] [address] Pharmacist Pharmacy 12/26/20 Door Manager Relationship Specialty Start Date End Date Nithin Acevedo MD [address] [place] [place] [address] PCP - General 11/30/09 MarcoAdriana you, [facility] [address] [place] [place] [address] Pharmacist Pharmacy 12/26/20 Door Manager Relationship Specialty Start Date End Date Nithin Acevedo MD [address] [place] [place] [address] PCP - General 11/30/09 Pallavi Adriana, [facility] [address] [place] [place] [address] Pharmacist Pharmacy 12/26/20 Door Manager Relationship Specialty Start Date End Date Nithin Acevedo MD [address] [place] [place] [address] PCP - General 11/30/09 MarcoAdriana you, [facility] [address] [place] [address] Pharmacist Pharmacy 12/26/20 Door Manager Relationship Specialty Start Date End Date Nithin Acevedo MD [address] [place] [place] [address] PCP - General 11/30/09 Marco Adriana, [facility] [address] [place] [place] [address] Pharmacist Pharmacy 12/26/20 Door Manager Relationship Specialty Start Date End Date Nithin Acevedo MD [address] [place] [place] [address] PCP - General 11/30/09 [facility] [address] [place] [address] Pharmacist Pharmacy 12/26/20 Door Manager Relationship Specialty Start Date End Date Nitihn Acevedo MD [address] [place] [place] [address] PCP - General 11/30/09 [facility] [address] [place] [address] Pharmacist Pharmacy 12/26/20 Door Manager Relationship Specialty Start Date End Date Nithin Acevedo MD [address] [place] [place] [address] PCP - General 11/30/09 Marco Auroraginger, [facility] [address] [place] [address] Pharmacist Pharmacy 12/26/20 Door Manager Relationship Specialty Start Date End Date Nithin Acevedo MD [address] [place] [address] PCP - General 11/30/09 [facility], [facility] [address] [place] [place] [address] Pharmacist Pharmacy 12/26/20 Door Manager Relationship Specialty Start Date End Date Nithin Acevedo MD [address] [place] [address] PCP - General 11/30/09 [facility], [facility] [address] [place] [address] Pharmacist Pharmacy 12/26/20 Door Manager Relationship Specialty Start Date End Date Nithin Acevedo MD [address] [place] [address] PCP - General 11/30/09 Door Manager Relationship Specialty Start Date End Date Nithin Acevedo MD [address] [place] [address] PCP - General 11/30/09 Door Manager Relationship Specialty Start Date End Date Nithin Acevedo MD [address] [place] [address] PCP - General 11/30/09 Door Manager Relationship Specialty Start Date End Date Nithin Acevedo MD [address] [place] [address] PCP - General 11/30/09 Door Manager Relationship Specialty Start Date End Date Nithin Acevedo MD [address] [place] [address] PCP - General 11/30/09 Door Manager Relationship Specialty Start Date End Date Nithin Acevedo MD [address] [place] [address] PCP - General 11/30/09 Door Manager Relationship Specialty Start Date End Date Nithin Acevedo MD [address] [place] [address] PCP - General 11/30/09 Door Manager Relationship Specialty Start Date End Date Nithin Acevedo MD [address] [place] [address] PCP - General 11/30/09 Door Manager Relationship Specialty Start Date End Date Nithin Acevedo MD [address] [place] [address] PCP - General 11/30/09 Door Manager Relationship Specialty Start Date End Date Nithin Acevedo MD [address] [place] [address] PCP - General 11/30/09 Door Manager Relationship Specialty Start Date End Date Nithin Acevedo MD [address] [place] [address] PCP - General 11/30/09 Door Manager Relationship Specialty Start Date End Date Nithin Acevedo MD [address] [facility] [place] [address] PCP - General 11/30/09 Door Manager Relationship Specialty Start Date End Date Nithin Acevedo MD [address] [place] [address] PCP - General 11/30/09 Door Manager Relationship Specialty Start Date End Date Nithin Acevedo MD [address] [facility] [place] [address] PCP - General 11/30/09 Door Manager Relationship Specialty Start Date End Date Nithin Acevedo MD [address] [facility] [address] PCP - General 11/30/09 Team Status: Active Member Role Status Dates Dr. Nithin Acevedo MD Family Provider Active Dr. Nithin Acevedo MD Primary Care Provider Active Team Status: Inactive Member Role Status Dates Dr. Nithin Acevedo MD Primary Care Provider Active Jerry Jimenes MD Emergency Provider Active Door Manager Relationship Specialty Start Date End Date Nithin Acevedo MD [address] [place] [address] PCP - General 11/30/09 Door Manager Relationship Specialty Start Date End Date Nithin Acevedo MD [address] [place] [address] PCP - General 11/30/09 Door Manager Relationship Specialty Start Date End Date Nithin Acevedo MD [address] [place] [address] PCP - General 11/30/09 Door Manager Relationship Specialty Start Date End Date Nithin Acevedo MD [address] [place] [address] PCP - General 11/30/09 Door Manager Relationship Specialty Start Date End Date Nithin Acevedo MD [address] [place] [address] PCP - General 11/30/09 Door Manager Relationship Specialty Start Date End Date Nithin Acevedo MD [address] [place] [address] PCP - General 11/30/09 Katherin Mckinnon, PLANNING DIRECTOR.FIRST AID TEACHER [address] [place] [address] Stagecraft Teacher Internal Medicine 10/25/24 Door Manager Relationship Specialty Start Date End Date Nithin Acevedo MD [address] [place] [address] PCP - General 11/30/09 Katherin Mckinnon, PLANNING DIRECTOR.FIRST AID TEACHER [address] [place] [address] Stagecraft Teacher Internal Medicine 10/25/24 Oft Funk, RN Specialty Construction Coordinator Nephrology 11/05/24 Door Manager Relationship Specialty Start Date End Date Nithin Acevedo MD [address] [place] [address] PCP - General 11/30/09 Katherin Mckinnon, PLANNING DIRECTOR.FIRST AID TEACHER [address] [place] [address] Stagecraft Teacher Internal Medicine 10/25/24 Otf Funk RN Specialty Construction Coordinator Nephrology 11/05/24 Door Manager Relationship Specialty Start Date End Date Nithin Acevedo MD [address] [place] [address] PCP - General 11/30/09 Katherin Mckinnon, PLANNING DIRECTOR.FIRST AID TEACHER [address] [place] [address] Stagecraft Teacher Internal Medicine 10/25/24 Otf Funk, CEFERINO Specialty Construction Coordinator Nephrology 11/05/24 Door Manager Relationship Specialty Start Date End Date Nithin Acevedo MD [address] [place] [address] PCP - General 11/30/09 Katherin Mckinnon, PLANNING DIRECTOR.FIRST AID TEACHER [address] [place] [address] Stagecraft Teacher Internal Medicine 10/25/24 Otf Funk, RN Specialty Construction Coordinator Nephrology 11/05/24 Door Manager Relationship Specialty Start Date End Date Nithin Acevedo MD [address] [facility] [address] PCP - General 11/30/09 Katherin Mckinnon, PLANNING DIRECTOR.FIRST AID TEACHER [address] [place] [address] Stagecraft Teacher Internal Medicine 10/25/24 Otf Funk RN Specialty Construction Coordinator Nephrology 11/05/24 Door Manager Relationship Specialty Start Date End Date Nithin Acevedo MD [address] [place] [address] PCP - General 11/30/09 Katherin Mckinnon, PLANNING DIRECTOR.FIRST AID TEACHER [address] [place] [address] Stagecraft Teacher Internal Medicine 10/25/24 Otf Funk RN Specialty Construction Coordinator Nephrology 11/05/24 Door Manager Relationship Specialty Start Date End Date Nithin Acevedo MD [address] [place] [address] PCP - General 11/30/09 Katherin Mckinnon, PLANNING DIRECTOR.FIRST AID TEACHER [address] [place] [address] Stagecraft Teacher Internal Medicine 10/25/24 Otf Funk, CEFERINO Specialty Construction Coordinator Nephrology 11/05/24 Door Manager Relationship Specialty Start Date End Date Nithin Acevedo MD [address] [place] [address] PCP - General 11/30/09 Katherin Mckinnon, PLANNING DIRECTOR.FIRST AID TEACHER [address] [place] [address] Stagecraft Teacher Internal Medicine 10/25/24 Otf Funk, RN Specialty Construction Coordinator Nephrology 11/05/24 Door Manager Relationship Specialty Start Date End Date Nithin Acevedo MD [address] [place] [address] PCP - General 11/30/09 Katherin Mckinnon, PLANNING DIRECTOR.FIRST AID TEACHER [address] [place] [address] Stagecraft Teacher Internal Medicine 10/25/24 Otf Funk, CEFERINO Specialty Construction Coordinator Nephrology 11/05/24 Door Manager Relationship Specialty Start Date End Date Nithin Acevedo MD [address] [place] [address] PCP - General 11/30/09 Katherin Mckinnon, PLANNING DIRECTOR.FIRST AID TEACHER [address] [place] [address] Stagecraft Teacher Internal Medicine 10/25/24 Otf Funk, RN Specialty Construction Coordinator Nephrology 11/05/24 Door Manager Relationship Specialty Start Date End Date Nithin Acevedo MD [address] [place] [address] PCP - General 11/30/09 Katherin Mckinnon, PLANNING DIRECTOR.FIRST AID TEACHER [address] [place] [address] Stagecraft Teacher Internal Medicine 10/25/24 Otf Funk, RN Specialty Construction Coordinator Nephrology 11/05/24 Door Manager Relationship Specialty Start Date End Date Nithin Acevedo MD [address] [place] [address] PCP - General 11/30/09 Katherin Mckinnon, PLANNING DIRECTOR.FIRST AID TEACHER [address] [place] [address] Stagecraft Teacher Internal Medicine 10/25/24 Otf Funk, CEFERINO Specialty Construction Coordinator Nephrology 11/05/24 Door Manager Relationship Specialty Start Date End Date Nithin Acevedo MD [address] [place] [address] PCP - General 11/30/09 Katherin Mckinnon, PLANNING DIRECTOR.FIRST AID TEACHER [address] [place] [address] Stagecraft Teacher Internal Medicine 10/25/24 Otf Funk RN Specialty Construction Coordinator Nephrology 11/05/24 Door Manager Relationship Specialty Start Date End Date Nithin Acevedo MD [address] [place] [address] PCP - General 11/30/09 Katherin Mckinnon, PLANNING DIRECTOR.FIRST AID TEACHER [address] [place] [address] Stagecraft Teacher Internal Medicine 10/25/24 Otf Funk, CEFERINO Specialty Construction Coordinator Nephrology 11/05/24 Door Manager Relationship Specialty Start Date End Date Nithin Acevedo MD [address] [place] [address] PCP - General 11/30/09 Katherin Mckinnon, PLANNING DIRECTOR.FIRST AID TEACHER [address] [place] [address] Stagecraft Teacher Internal Medicine 10/25/24 Otf Funk, RN Specialty Construction Coordinator Nephrology 11/05/24 Door Manager Relationship Specialty Start Date End Date Nithin Acevedo MD [address] [place] [address] PCP - General 11/30/09 Katherin Mckinnon, PLANNING DIRECTOR.FIRST AID TEACHER [address] [place] [address] Stagecraft Teacher Internal Medicine 10/25/24 Otf Funk, RN Specialty Construction Coordinator Nephrology 11/05/24 Door Manager Relationship Specialty Start Date End Date Nithin Acevedo MD [address] [place] [address] PCP - General 11/30/09 Katherin Mckinnon, PLANNING DIRECTOR.FIRST AID TEACHER [address] [place] [address] Stagecraft Teacher Internal Medicine 10/25/24 Otf Funk, RN Specialty Construction Coordinator Nephrology 11/05/24 Door Manager Relationship Specialty Start Date End Date Nithin Acevedo MD [address] [place] [address] PCP - General 11/30/09 Katherin Mckinnon, PLANNING DIRECTOR.FIRST AID TEACHER [address] [place] [address] Stagecraft Teacher Internal Medicine 10/25/24 Otf Funk, RN Specialty Construction Coordinator Nephrology 11/05/24 Door Manager Relationship Specialty Start Date End Date Nithin Acevedo MD [address] [place] [address] PCP - General 11/30/09 Katherin Mkcinnon, PLANNING DIRECTOR.FIRST AID TEACHER [address] [place] [address] Stagecraft Teacher Internal Medicine 10/25/24 Otf Funk, CEFERINO Specialty Construction Coordinator Nephrology 11/05/24 Door Manager Relationship Specialty Start Date End Date Nithin Acevedo MD [address] [place] [address] PCP - General 11/30/09 Katherin Mckinnon, PLANNING DIRECTOR.FIRST AID TEACHER [address] [place] [address] Stagecraft Teacher Internal Medicine 10/25/24 Otf Funk, CEFERINO Specialty Construction Coordinator Nephrology 11/05/24 Door Manager Relationship Specialty Start Date End Date Nithin Acevedo MD [address] [place] [address] PCP - General 11/30/09 Katherin Mckinnon, PLANNING DIRECTOR.FIRST AID TEACHER [address] [place] [address] Stagecraft Teacher Internal Medicine 10/25/24 Otf Funk, RN Specialty Construction Coordinator Nephrology 11/05/24 Door Manager Relationship Specialty Start Date End Date Nithin Acevedo MD [address] [place] [address] PCP - General 11/30/09 Katherin Mckinnon, PLANNING DIRECTOR.FIRST AID TEACHER [address] [place] [address] Stagecraft Teacher Internal Medicine 10/25/24 Otf Funk, RN Specialty Construction Coordinator Nephrology 11/05/24 Door Manager Relationship Specialty Start Date End Date Nithin Acevedo MD [address] [place] [address] PCP - General 11/30/09 Katherin Mckinnon, PLANNING DIRECTOR.FIRST AID TEACHER [address] [place] [address] Stagecraft Teacher Internal Medicine 10/25/24 Otf Funk, CEFERINO Specialty Construction Coordinator Nephrology 11/05/24 Door Manager Relationship Specialty Start Date End Date Nithin Acevedo MD [address] [place] [address] PCP - General 11/30/09 Katherin Mckinnon, PLANNING DIRECTOR.FIRST AID TEACHER [address] [place] [address] Stagecraft Teacher Internal Medicine 10/25/24 Otf Funk, RN Specialty Construction Coordinator Nephrology 11/05/24 Team Status: Active Member Role/Relationship [...] Provider Active Star t: July 23, 2025 Door Manager Relationship Specialty Start Date End Date Nithin Acevedo MD [address] [place] [address] PCP - General 11/30/09 Katherin Mckinnon, PLANNING DIRECTOR.FIRST AID TEACHER [address] [place] [address] Stagecraft Teacher Internal Medicine 10/25/24 Otf Funk, RN Specialty Construction Coordinator Nephrology 11/05/24 Door Manager Relationship Specialty Start Date End Date Nithin Acevedo MD [address] [place] [address] PCP - General 11/30/09 Katherin Mckinnon, PLANNING DIRECTOR.FIRST AID TEACHER [address] [place] [address] Stagecraft Teacher Internal Medicine 10/25/24 Otf Funk, RN Specialty Construction Coordinator Nephrology 11/05/24 Door Manager Relationship Specialty Start Date End Date Nithin Acevedo MD [address] [place] [address] PCP - General 11/30/09 Katherin Mckinnon, PLANNING DIRECTOR.FIRST AID TEACHER [address] [place] [address] Stagecraft Teacher Internal Medicine 10/25/24 Otf Funk, RN Specialty Construction Coordinator Nephrology 11/05/24 Door Manager Relationship Specialty Start Date End Date Nithin Acevedo MD [address] [place] [address] PCP - General 11/30/09 Katherin Mckinnon, PLANNING DIRECTOR.FIRST AID TEACHER [address] [place] [address] Stagecraft Teacher Internal Medicine 10/25/24 Otf Funk, RN Specialty Construction Coordinator Nephrology 11/05/24 Team Status: Active Member Role/Relationship Status Dates Dr. Nithin Acevedo MD Primary care physician Activ e Team Status: Inactive Member Role/Relationship Status Dates Dr. Nithin Acevedo MD Primary care physician Activ e Start: July 21, 2025 End: July 23, 2025 Dr. Fely Parra DO Emergency Departmen [...] Personnel Name: NITHIN ACEVEDO MD Address: Address: [address] [place] [address]- Care Team Personnel Name: NITHIN ACEVEDO MD Member Role: Primary Care Physician Address: Address: [address] [place] [address] Care Team Related Persons Name: HARMAN HU Name: ALIZA HU Address: [place] [address] [place], [place] [address] Care Team Personnel Name: NITHIN ACEVEDO MD Member Role: Primary Care Physician Address: Address: [address] [place] [address] Care Team Related Persons Name: HARMAN HU Name: ALIZA HU Address: Home [address] [place] [address] [place] Care Team Personnel Name: NITHIN ACEVEDO MD Member Role: Primary Care Physician Address: Address: [address] [place] [address]- Care Team Related Persons Name: HARMAN HU Name: ALIZA HU Address: Home [address] [place] [address] Care Team Personnel Name: Lindsey John Position: Quality Review Member Role: Construction Coordinator Name: NITHIN ACEVEDO MD Member Role: Primary Care Physician Address: Address: [address] [place] [address]- Care Team Related Persons Name: JOSUE HARMAN Name: JOSUE ALIZA Address: Home [address] [place] [address] [place] Goals (unrecognized section and content) Goals [...] BE BASED ON THE PRIMARY CLINICAL RECORDS. [facility] [employer] [facility]. provides no warranty or guarantee of the accuracy or completeness of information in this document.
[2025-11-08 22:42] LABS: Troponin T High Sens 2 HR 86 ng/L (<=22)
[2025-11-09] VITALS (34 sets, daily range): BP systolic 47–160; BP diastolic 31–94; PULSE 44–97; RESP 11–26; TEMP 34.2–37.3; O2SAT 90–100
[2025-11-09 00:59] LABS: Troponin T High Sens 4 HR 89 ng/L (<=22)
[2025-11-09 01:44] LABS: Mucous, Urine 0 SEEN /hpf (<or=2+); Squamous Epithelial Cells - UA 0 SEEN /hpf (0-5)
[2025-11-09 01:45] LABS: Color, Urine Yellow (Yellow); Glucose, Dipstick 100 mg/dl (Normal); Ketone-Dipstick Negative (Negative); Leukocyte Esterase-Dipstick 25 /ul (Negative); Nitrite-Dipstick Negative (Negative); Occult Blood-Urine 250 /ul (Negative); Protein-Dipstick 30 mg/dl (Negative); Specific Gravity, Urine 1.015 (1.002-1.030); Urine Bilirubin Dipstick Negative (Negative)
[2025-11-09 01:55] LABS: Red Blood Cells-Urine 25-50 SEEN /hpf (0-5)
[2025-11-09 05:39] LABS: Hematocrit 22.1 % (40-54); Hemoglobin 6.3 g/dL (13.0-16.5); Immature Granulocytes Count 0.020 X10^3/uL (0.0-0.0); Mean Corp Hgb Conc 28.5 g/dL (32-36); Mean Corpuscular Volume 78.9 fL (80-94); NRBC Flagged by Analyzer 0 % (0-5); POSITIVE COUNT YES; POSITIVE DIFFERENTIAL YES; Platelet Count 85 K/mm3 (150-450); RBC Distribution Width CV 16.8 % (11.6-14.6); RBC Distribution Width SD 48.5 fl (35.1-43.9); Red Blood Count 2.80 M/mm3 (4.6-6.2); White Blood Count 4.3 K/mm3 (4.4-11.0)
[2025-11-09 05:54] LABS: Differential Indicated SCAN CRITERIA MET
[2025-11-09 06:26] LABS: FOLATES,SERUM (FOLIC ACID) 3.06 ng/mL (4.60-34.80)
[2025-11-09 06:31] LABS: Anion Gap 10 (7-18); BUN 82 mg/dL (4-19); BUN/Creat Ratio 23.3 RATIO (10-20); Calcium,Total 10.2 mg/dL (7.6-11.0); Carbon Dioxide 27.0 mmol/L (20.0-29.0); Chloride 108 mmol/L (96-106); Estimated Creatinine Clearance 22.78 ml/min (50-250); Glucose 109 mg/dL (70-99); Potassium 4.8 mmol/L (3.5-5.1)
[2025-11-09 07:03] LABS: Ferritin 23 ng/mL (37-417); Iron 23 ug/dL (65-175); Iron Binding Capacity,Total 349 ug/dL (250-450); Iron Binding Capacity,Unsat 326 ug/dL (228-428); Vitamin B12 854 pg/mL (180-914)
--- NOTE | 2025-11-09 07:38 | PN.HOSP_ITS ---
Subjective Subjective Patient complains predominantly of shortness of breath. We did discuss that he was found to be fairly anemic compared to his baseline which may be part of the problem. He is agreeable to transfusion of 2 units packed red blood cells. We also discussed giving IV iron which she was amenable to and order was placed. We did discuss whether or not he is having dark stools and was not able to really tell me. We did order guaiac which is pending. He is not on oxygen at baseline and currently requiring 2 L. He does state he has intermittent shortness of breath. He had some hypothermia earlier which has since resolved. He denies any significant cough or sputum production. Objective Data Objective Data Vital Signs: Vital Signs Temp Pulse Resp BP Pulse Ox O2 Del Method O2 Flow Rate 98.2 F 62 20 H 110/33 L 98 Nasal Cannula 2 11/09/25 07:00 11/09/25 07:00 11/09/25 07:00 11/09/25 07:10 11/09/25 07:00 11/09/25 07:00 11/09/25 07:00 Oxygen Flow Rate (L/min) 2 Oxygen Delivery Method Nasal Cannula Weight: 163.1 kg Body Mass Index (BMI) 47.4 Intake & Output: Intake and Output for Last 24 Hours 11/07/25 11/08/25 11/09/25 23:59 23:59 23:59 Intake Total 0 / 0 220 / 220 Output Total 575 / 575 Balance 0 / 0 -355 / -355 Lab / Micro Data 11/09/25 07:58 11/09/25 05:05 Labs: Laboratory Results - last 24 hr 11/08/25 19:59: WBC 4.3 L, RBC 3.20 L, Hgb 7.1 L, Hct 25.5 L, MCV 79.7 L, MCH 22.2 L, MCHC 27.8 L, RDW Std Deviation 48.7 H, RDW Coeff of Jazmin 16.8 H, Plt Count TNP, MPV TNP, Immature Gran % (Auto) 0.500, Neut % (Auto) 77.0 H, Lymph % (Auto) 10.8 L, Calhoun % (Auto) 9.4, Eos % (Auto) 1.8, Baso % (Auto) 0.5, Absolute Neuts (auto) 3.3, Absolute Lymphs (auto) 0.47 L, Nucleated RBC % 0, Differential Comment SCANNED, Platelet Estimate ADEQUATE, Sodium 145, Potassium 5.0, Chloride 107 H, Carbon Dioxide 26.7, Anion Gap 12, BUN 84 H, Creatinine 3.53 H, Estim Creat Clear Calc 22.82 L, Est GFR (MDRD) Non-Af 16 L, BUN/Creatinine Ratio 23.7 H, Glucose 123 H, Calcium 10.6, Troponin T High Sens 93 H*, NT pro BNP II 1684 11/08/25 20:00: Serum Folate 3.06 L 11/08/25 22:10: Troponin T Hi Sens 2 Hr 86 H* 11/08/25 22:56: POC Glucose 101 11/09/25 00:30: Troponin T Hi Sens 4Hr 89 H* 11/09/25 01:15: Urine Color Yellow, Urine Clarity Sl. Cloudy, Urine pH 5.0, Ur Specific [place] 1.015, Urine Protein 30 H, Urine Glucose (UA) 100 H, Urine Ketones Negative, Urine Occult Blood 250 H, Urine Nitrite Negative, Urine Bilirubin Negative, Urine Urobilinogen Normal, Ur Leukocyte Esterase 25 H, Urine RBC 25-50 SEEN, Urine WBC 0-5 SEEN, Ur Squamous Epith Cells 0 SEEN, Urine Bacteria 0 SEEN, Urine Mucus 0 SEEN 11/09/25 05:05: WBC 4.3 L, RBC 2.80 L, Hgb 6.3 L, Hct 22.1 L, MCV 78.9 L, MCH 22.5 L, MCHC 28.5 L, RDW Std Deviation 48.5 H, RDW Coeff of Jazmin 16.8 H, Plt Count 85 L, MPV TNP, Immature Gran % (Auto) 0.500, Neut % (Auto) 74.6 H, Lymph % (Auto) 12.2 L, Calhoun % (Auto) 10.1 H, Eos % (Auto) 2.1, Baso % (Auto) 0.5, Absolute Neuts (auto) 3.2, Absolute Lymphs (auto) 0.52 L, Nucleated RBC % 0, Platelet Estimate MOD DEC, Sodium 144, Potassium 4.8, Chloride 108 H, Carbon Dioxide 27.0, Anion Gap 10, BUN 82 H, Creatinine 3.52 H, Estim Creat Clear Calc 22.78 L, Est GFR (MDRD) Non-Af 16 L, BUN/Creatinine Ratio 23.3 H, Glucose 109 H, Calcium 10.2, Iron 23 L, TIBC 349, Iron Saturation 6.6 L, Unsaturated IBC 326, F erritin 23 L, Vitamin B12 854 11/09/25 06:46: POC Glucose 94 Micro: Microbiology 11/08/25 20:40 Mucosa - Nose SARS-CoV-2, Influenza & RSV (PCR) - Final Radiography Diagnostic Testing: Radiology Impression Chest X-Ray 11/08/25 20:18 IMPRESSION: Pulmonary findings as above. Reading Location: [facility] Physical Exam Const alert, oriented x3, no apparent distress and well nourished; Negative for average body habitus or healthy appearing Constitutional Narrative: Morbidly obese, elderly, ill-appearing but not toxic white male, sitting up in bed, nursing at bedside, currently appears comfortable but mild dyspnea with conversation, appears chronically ill HEENT head/scalp atraumatic and moist oral mucous membranes HEENT Narrative: Dentition is poor, Mallampati is 3-4, no thrush Head and Scalp: normocephalic Resp no retractions, no use of accessory muscles and clear to auscultation bilaterally Resp Narrative: Diminished diffusely but clear with no crackles, mild conversational tachypnea on 2 L nasal cannula with no signs of acute extremis Auscultation: Negative for crackles, rhonchi or wheezes Cardio regular rate, regular rhythm, S1 normal heart sound, S2 normal heart sound, no murmurs, no rub, no gallops and no clicks GI normal to inspection, nondistended, normoactive bowel sounds, soft to palpation and non-tender GI Narrative: Large protuberant abdomen Extremity Extremity Narrative: Trace to 1+ bilateral lower extremity edema Skin Skin Narrative: Bilateral upper extremities with multiple areas of ecchymosis Neuro oriented x3, moves all extremities and no focal motor deficits Neuro Narrative: Marked generalized weakness with no focal deficits Speech: speech normal Psych affect normal Psych Narrative: Patient makes good eye contact and interacts appropriately Assessment & Plan Assessment/Plan (1) Lower extremity edema: (2) Acute decompensated heart failure: (3) (HFpEF) heart failure with preserved ejection fraction: QUALIFIERS: Heart failure chronicity: acute on chronic Qualified Code(s): I50.33 - Acute on chronic diastolic (congestive) heart failure (4) Acute on chronic anemia: (5) Iron deficiency: (6) Thrombocytopenia: (7) Leukopenia: (8) Hypothermia: (9) Elevated troponin: PLAN: Plan Dyspnea/new hypoxia-multifactorial (acute on chronic HFpEF/acute on chronic anemia/COPD exacerbation) - Initially thought to be related to acute on chronic HFpEF and was given diuretics but suspect there is a component related to acute on chronic anemia as well/history of tobacco abuse up to 4 packs a day -Echocardiogram done today shows an EF of 65 to 70% with moderate tricuspid valve insufficiency and right ventricular systolic pressure of 40 to 45 mmHg with mild pulmonary hypertension and a dilated IVC with normal respiratory collapse and right atrial pressures of 5 to 10 mmHg--> no changes from previous echocardiogram -Blood pressures have been soft so we will discontinue IV Bumex and changed to oral Bumex 1 mg twice daily - May need a bolus dose after blood transfusion depending on respiratory status - Currently requiring 2 L nasal cannula and baseline is room air - Wean oxygen as able -Will need ambulatory pulse ox prior to discharge - With marked history of tobacco abuse will add scheduled DuoNebs as well - No steroids for now - Transfused 2 units packed red blood cells - Low sodium and volume restrict diet to 1500 cc - Check daily weights Acute on chronic anemia secondary to chronic renal disease and iron deficiency - Baseline hemoglobin appears to run typically between 8 and 9 - 6.3 with a verification of 6.2 earlier this morning -2 units of packed red blood cells given - Repeat p.m. hemoglobin - Iron studies performed and consistent with iron deficiency - Guaiac ordered--> if positive will consult GI - Patient states he is had previous colonoscopy but never had EGD and denies any known blood or dark tarry stools - Start Protonix IV twice daily - Hold Eliquis - DDAVP dosed with platelet issues and CKD stage IV Pancytopenia - Etiology is unclear - Cultures pending but no acute signs of infection so hold off on antibiotics at this time unless change in status Acute thrombocytopenia - Etiology is unclear however if patient is having any bleeding could be related to this or volume overloaded from heart failure - Continue current treatment and repeat in a.m. - With concern for bleeding will give 1 dose of DDAVP 14 mcg per body weight recommendations Hypothermia - Resolved at this time with warming - check TSH in a.m. - etiology unclear Troponin elevation - Echocardiogram without any wall motion abnormality next-patient without chest pain - Likely multifactorial from demand ischemia from anemia and heart failure as well as decreased clearance related to renal disease - No further workup at this time History of atrial fibrillation - Eliquis on hold - Patient is not on any rate modifying medications CKD stage IV - Currently at baseline - Monitor - Avoid nephrotoxins - No current need for HEALTH EDUCATION SPECIALIST DM-2 - Patient with decreased p.o. intake will give basal insulin 15 units for now - SSI as ordered - Accu-Cheks as ordered - Cardiac/carb controlled diet Essential hypertension - Blood pressures on the low side will hold home Entresto for now - Continue to monitor blood pressure BPH with obstruction/acute urinary retention - Continue home doxazosin - Straight cath as needed x 3 if ongoing retention may need to utilize Soler catheter Hyperlipidemia - continue home atorvastatin HELDER - Continue home CPAP Morbid obesity - Recommend weight loss-complicates treatment, prognosis, outcomes DVT prophylaxis - SCDs - chemoprophylaxis on hold due to acute anemia CODE STATUS - DNR CCA with no intubation Charges/Coding Visit Charges Inpatient E&M: 20709 Subs Hosp L3
[2025-11-09 08:07] LABS: Hemoglobin 6.2 g/dL (13.0-16.5); Immature Reticulocyte Fraction 10.50 % (3.00-15.90); Platelet Count 101 K/mm3 (150-450); Reticulocyte Count 0.79 % (0.5-1.5)
[2025-11-09 08:39] LABS: Ferritin 21 ng/mL (37-417); Iron 26 ug/dL (65-175); Iron Binding Capacity,Total 302 ug/dL (250-450); Iron Binding Capacity,Unsat 276 ug/dL (228-428)
[2025-11-09] MEDS: Sodium Ferric Gluconat/Sucrose 250 MG in 0.9% Normal Saline (250mL Bag) 250 ML 135 MG IV (09:13)
[2025-11-09] MEDS: 0.9% Saline Lock 10 ML Syringe IV ×2 (09:26→22:30)
--- NOTE | 2025-11-09 09:29 | ECHOLC_ITS ---
Reason For Study Reason For Study: CHF Procedure This was a limited 2D transthoracic echocardiogram. The study was technically difficult. Patient was scanned in sitting position during reflux assessment. Due to POOR apical imaging windows, dyspnea/SOB & body habitus. Contrast injection was performed. Exam performed portable in patient room. Left Ventricle Normal LV size. Normal left ventricular thickness. The estimated ejection fraction is 65???70 %. Technically difficult study with poor acoustic windows limited interpretation. Definity contrast utilized to visualize the endocardial border. Right Ventricle Normal RV size. Normal systolic function. Mitral Valve Mild diffuse mitral valve thickening. Mild mitral annular calcification. Tricuspid Valve The tricuspid valve is not well visualized. There is no tricuspid stenosis. Mild-Moderate (1-2+) tricuspid valve insufficiency. Right ventricular systolic pressure estimated to be 40???45 mmHg. Mild pulmonary hypertension. Aortic Valve Aortic valve not well-visualized probably trileaflet. Appears to be mildly thickened and mildly calcified. Pulmonic Valve The pulmonic valve is not well visualized. Trivial pulmonic valve insufficiency. Great Vessels Ascending aorta normal size measured at 3.2 cm. IVC dilated with normal respiratory collapse. Right atrial pressure estimated at 5-10 mmHg. Pericardium/Pleural No pericardial effusion. Medication 20 gauge I.V. with prn adaptor inserted into right arm. Diluted definity 2.0ml given slow IV push to enhance endocardial definition. MMode/2D Measurements & Calculations LVIDd: 5.6 cm IVSd: 1.0 cm Ao root diam: 3.7 cm LVIDs: 3.3 cm LVPWd: 1.0 cm FS: 40.9 % LVAd ap4: 35.1 cm2 SV(MOD-sp4): 88.1 ml SV(sp4-el): 86.5 ml LVLd ap4: 8.0 cm SI(MOD-sp4): 31.9 ml/m2 EDV(MOD-sp4): 132.5 ml EDV(sp4-el): 131.4 ml LVAs ap4: 19.2 cm2 LVLs ap4: 7.0 cm ESV(MOD-sp4): 44.5 ml ESV(sp4-el): 44.8 ml EF(MOD-sp4): 66.5 % EF(sp4-el): 65.9 % LA dimension(2D): 5.2 cm Doppler Measurements & Calculations PA V2 max: 121.0 cm/sec TR max forrest: 297.1 cm/sec TR max P.3 mmHg ECHO/Echo Limited w/Contrast Interpretation Summary Technically difficult study with poor acoustic windows limited interpretation. Definity contrast utilized to visualize the endocardial border. The estimated ejection fraction is 65???70 %. Mild-Moderate (1-2+) tricuspid valve insufficiency. Right ventricular systolic pressure estimated to be 40???45 mmHg. Mild pulmonary hypertension. IVC dilated with normal respiratory collapse. Right atrial pressure estimated a t 5-10 mmHg. Compared to previous echocardiogram no significant changes appreciated. Stable normal ejection fraction estimated at 65- 70%. Tricuspid valve regurgitation estimated at mild to moderate previously not ed to be mild. Ordering Physician: Yael Keith Referring Physician: SHAISTA Acevedoictor Performed By: Tracie Restrepo, WESLEY, RVT
[2025-11-09] MEDS: Insulin Glargine-YFGN 100 UNIT/ML Pen 30 UNIT SC (12:15)
--- NOTE | 2025-11-09 16:02 | CASEMGMT ---
RN MICHAEL Assessment Face to Face with patient for initial transition planning/care coordination assessment. RN MICHAEL introduced self and role at [facility], pt voices understanding. Pt is A&Ox4 and is resting comfortably in bed and is calm. Pt's and son are at the bedside. Care providers, pharmacy, and demographics verified. Admitting dx: CHF Exacerbation IBIS Strata: 3 PCP: Nithin Acevedo Specialists: Hat Copyist through [facility] (Pt unable to recall the name), Momo Lubin ([facility]), RACHNA Fortune (Pt unable to recall the name) Preferred Pharmacy: [facility] Insurance: MMO MCR - Will be changing to [facility] at the beginning of the year Prescription Benefit: yes LNOK: Marija (W), Harman (Son) Living Arrangements: Pt lives with his in a single story home with a ramp to enter ADLs/IADLs: Pt states that he now requires assistance at home and this his GD is his [employer]RA[employer]LLER and that she comes q M-F for 5 hours and helps the pt. Pt states that his handles the pts meds and does the cooking. pt also states that he gets 4 home delivered meals/week through [employer] Transportation: Pt and pt's do not drive currently. Pt states that his ANH and GD are able to drive him and denies concerns DME: CPAP @ [facility] with no additional o2. Pt may qualify for home oxygen use. A verbal list of local in-network DME companies were provided to the pt at this time. Pt prefers [facility]. Pt states that he has a CBGM with plenty of sensors and pen needles for insulin. However, pt states that his back up BGM is old and does not work any more. Pt interested in an Rx for this. CM to follow. Pt reports that he has a scale for his CHF. FWW x2. Cane. Walk in shower with shower chair and grab bars. Lift chair. BP Machine. Pulse ox. HHC/SNF: [facility] Pt?s goal: TBD Plan: TBD. Anticipate SNF vs home with HHC. Follow for BGM and supplies rx and new O2 needs. Current 6-Click score is 14. Noted that there is not therapy ordered. Inquired with Dr. Keith if she would like PT/OT evals ordered. Hospitalist states yes. Per rounds, pt will not be discharging until Friday at least. Pt states that if SNF is warranted, he does not want to go back to [facility]. Pt states that if he is able to go home, he may be interested in skilled HHC again. CM to follow. Pt and pt's family deny further questions or concerns at this time. Report given to SLEEP LAB TECHNICIAN CM. Vishal Asif RN, CM
[2025-11-09 18:55] LABS: Hemoglobin 7.9 g/dL (13.0-16.5)
--- NOTE | 2025-11-09 23:08 | PCM.HOSP.N ---
Hospitalist Note Nrsg calls regarding concerns for giving scheduled Bumex and Cardura. Reports BP trending softer, received 2units PRBCs and is requiring 3L O2 via NC, up from baseline 2L. Reviewed with , no diuretics had been given today to pt; question is bioavailability of oral bumteditidine currently and prefers to try bumetidine 0.5mg IV at reduced dosing for BP concerns, but still attempt diuresis; x1 dose ordered.
[2025-11-09] MEDS: Pantoprazole Sodium 40 MG in 0.9% Normal Saline (100mL MB+) 100 ML 300 MG IV (23:16)
[2025-11-09] MEDS: MELATONIN 10 MG TABLET PO (23:21)
[2025-11-10] VITALS (33 sets, daily range): BP systolic 65–133; BP diastolic 27–111; PULSE 41–64; RESP 12–24; TEMP 35.9–37.2; O2SAT 88–100; BMI 47.8
--- NOTE | 2025-11-10 00:30 | NURSING ---
This RN assumed care of pt at this time.
--- NOTE | 2025-11-10 01:02 | NURSING ---
This RN gave report to CEFERINO Verdugo. She will assume care of this patient from 2330 thru the end of the shift.
--- NOTE | 2025-11-10 01:53 | NURSING ---
Pt temperature from core temp torres is currently 35.9 C> Kole hugger reintroduced to patient at this time.
--- NOTE | 2025-11-10 02:09 | NURSING ---
Pt noted to be 84-85% on CPAP with 3L bled in. Increased bleed to 4L. Respiratory notified.
--- NOTE | 2025-11-10 02:55 | CPS ---
Pt has own bipap machine. nasal mask was not working at all. spo2 was dropping even on 4L O2 bled in. RT obtained a full face mask and o2 sats stayed up better. RN aware of events
[2025-11-10 04:02] LABS: Hematocrit 24.7 % (40-54); Hemoglobin 7.1 g/dL (13.0-16.5); Immature Granulocytes Count 0.010 X10^3/uL (0.0-0.0); Mean Corp Hgb Conc 28.7 g/dL (32-36); Mean Corpuscular Volume 81.5 fL (80-94); Mean Platelet Vol. 11.9 fl (6.2-12.0); NRBC Flagged by Analyzer 0 % (0-5); POSITIVE COUNT YES; POSITIVE DIFFERENTIAL YES; Platelet Count 70 K/mm3 (150-450); RBC Distribution Width CV 17.4 % (11.6-14.6); RBC Distribution Width SD 51.2 fl (35.1-43.9); Red Blood Count 3.03 M/mm3 (4.6-6.2); White Blood Count 4.9 K/mm3 (4.4-11.0)
[2025-11-10 05:14] LABS: AST(SGOT) 10 U/L (<=37); Alanine Aminotransfer ALT/SGPT 12 U/L (<=46); Albumin, Serum 3.1 g/dL (3.4-4.8); Alkaline Phosphatase 96 U/L (40-129); Anion Gap 9 (7-18); BUN 84 mg/dL (4-19); BUN/Creat Ratio 21.6 RATIO (10-20); Calcium,Total 10.1 mg/dL (7.6-11.0); Carbon Dioxide 25.8 mmol/L (20.0-29.0); Chloride 109 mmol/L (96-106); Estimated Creatinine Clearance 20.56 ml/min (50-250); Globulin 2.1 g/dL (2.2-4.2); Glucose 88 mg/dL (70-99); Magnesium 2.6 mg/dL (1.5-2.2); Potassium 5.2 mmol/L (3.5-5.1)
[2025-11-10] MEDS: Pantoprazole Sodium 40 MG in 0.9% Normal Saline (100mL MB+) 100 ML 300 MG IV ×2 (09:48→21:38)
--- NOTE | 2025-11-10 12:32 | EX.PCM.CON.G ---
HPI Consult Data Date of Consult: 11/10/25 HPI Narrative Reason for Consultation: Anemia HPI Narrative: FEDERICO SALAS,is an 89-year-old male with a medical history of HFpEF, CKD (baseline creatinine 3.1), paroxysmal A-fib on Eliquis, and type 2 diabetes. He presents with gradually progressing shortness of breath on exertion and lower extremity swelling over the past few weeks. He denies any known blood or dark tarry stools and states he has had a previous colonoscopy, but never an EGD. Labs: Creatinine baseline: 3.1 Hemoglobin (baseline): typically between 8 and 9 g/dL Hemoglobin (current): 6.3 g/dL, verified at 6.2 g/dL this morning; repeat p.m. hemoglobin not provided. Iron studies: Performed and consistent with iron deficiency. New onset pancytopenia noted. Interventions: 2 units of packed red blood cells given. Eliquis held. Protonix IV started twice daily. DDAVP dosed due to platelet issues and CKD stage IV. ] [facility] Medical History (Updated 11/09/25 @ 17:[address] Yael Keith, DO) CKD (chronic kidney disease), stage IV Diabetes CHF (congestive heart failure) Afib CAD (coronary artery disease) Home Medications ?Medication ?Instructions ?Recorded ?Last Taken ?Type doxazosin 2 mg tablet 2 mg PO QHS PROSTATE 07/02/16 11/08/25 History nitroglycerin 0.4 mg sublingual 0.4 mg sublingual PRN PRN CHEST 04/01/18 Unknown History tablet (Nitrostat) PAIN apixaban 2.5 mg tablet (Eliquis) 2.5 mg PO BID blood thinner 03/27/24 11/08/25 History insulin degludec 100 unit/mL 40 unit subcut DAILY blood sugar 03/27/24 11/08/25 History subcutaneous solution (Tresiba U-100 Insulin) atorvastatin 40 mg tablet 40 mg PO DAILY cholesterol 07/21/25 11/08/25 History sacubitril 97 mg-valsartan 103 mg 1 tab PO BID heart 07/21/25 11/08/25 History tablet (Entresto) furosemide 40 mg tablet 40 mg PO BID fluid #180 tabs 07/23/25 11/08/25 Rx Allergy/AdvReac Type Severity Reaction Status Date / Time finasteride (From Proscar) Allergy Hives Verified 11/08/25 19:52 Social History (Updated 07/21/25 @ 10:37 by Irma Hensley) household members: family Smoking Status: Former smoker ROS Constitutional Constitutional: Denies fatigue, fever(s), poor appetite, weight gain or weight loss Gastrointestinal Gastrointestinal: Denies belching, bloating, change in bowel habits, change in stool character, chewing difficulty, coffee ground emesis, constipation, cramping, diarrhea, dyspepsia, dysphagia, early satiety, excessive flatus, fecal incontinence, heartburn, hematemesis, hematochezia, hemorrhoids, loose stools, melena, nausea, odynophagia, rectal bleeding, tenesmus, vomiting or weight changes Physical Exam Const alert, oriented x3, no apparent distress and healthy appearing General Appearance: cooperative GI normal to inspection, nondistended, normoactive bowel sounds, soft to palpation, non-tender and non-distended Percussion: normal to percussion Rectal Exam: deferred Lab / Micro Data 11/10/25 03:53 11/10/25 03:53 Labs: Laboratory Results - last 24 hr 11/09/25 08:44: Blood Type B POSITIVE, Antibody Screen NEGATIVE, Crossmatch See Detail 11/09/25 08:44: Crossmatch See Detail 11/09/25 11:29: POC Glucose 93 11/09/25 17:09: POC Glucose 89 11/09/25 18:44: Hgb 7.9 L 11/09/25 22:26: POC Glucose 84 11/10/25 02:49: POC Glucose 70 L 11/10/25 03:53: WBC 4.9, RBC 3.03 L, Hgb 7.1 L, Hct 24.7 L, MCV 81.5, MCH 23.4 L, MCHC 28.7 L, RDW Std Deviation 51.2 H, RDW Coeff of Jazmin 17.4 H, Plt Count 70 L, MPV 11.9, Immature Gran % (Auto) 0.200, Neut % (Auto) 76.6 H, Lymph % (Auto) 10.7 L, [place] % (Auto) 11.5 H, Eos % (Auto) 0.8, Baso % (Auto) 0.2, Absolute Neuts (auto) 3.7, Absolute Lymphs (auto) 0.52 L, Nucleated RBC % 0, Sodium 144, Potassium 5.2 H, Chloride 109 H, Carbon Dioxide 25.8, Anion Gap 9, BUN 84 H, Creatinine 3.90 H, Estim Creat Clear Calc 20.56 L, Est GFR (MDRD) Non-Af 14 L, BUN/Creatinine Ratio 21.6 H, Glucose 88, Calcium 10.1, Phosphorus 6.3 H, Magnesium 2.6 H, Total Bilirubin 0.53, AST 10, ALT 12, Alkaline Phosphatase 96, Total Protein 5.1 L, Albumin 3.1 L, Globulin 2.1 L, Albumin/Globulin Ratio 1.5, TSH 4.150 11/10/25 06:29: POC Glucose 82 11/10/25 11:17: POC Glucose 99 Micro: Microbiology 11/09/25 01:15 Urine Catheter - Soler Urine Culture - Preliminary Culture exhibits no growth. Assessment & Plan Assessment/Plan (1) Thrombocytopenia: (2) Iron deficiency: (3) Acute on chronic anemia: PLAN: 89-year-old male with acute on chronic anemia due to chronic renal disease and iron deficiency (hemoglobin 6.2 g/dL). Potential contributing factors to iron deficiency and anemia severity include: Chronic renal disease). Iron deficiency (confirmed by iron studies). Possible occult gastrointestinal blood loss, though patient denies symptoms (prior colonoscopy, no EGD). HFpEF symptoms exacerbated by severe anemia. Plan Diagnosis:?Iron deficiency anemia confirmed by labs. Treatment: Initiate iron supplementation. Due to ongoing symptoms, likely need for efficient and higher-dose iron repletion given CKD status; consider IV iron therapy. Further workup for iron deficiency source: Given the lack of EGD history and new onset pancytopenia, investigation into potential GI bleeding source is warranted. Monitor serial hemoglobin levels following transfusions and with initiation of iron therapy. N.p.o. after midnight Medication management: Eliquis remains on hold for now given anemia severity and new pancytopenia; monitor clinical picture and discuss with GI/Hematology when safe to restart. Continue Protonix IV BID for GI prophylaxis/potential occult bleed management. Continue DDAVP dosing as indicated for platelet issues. Portions of this note were generated using voice recognition software ([email or web address]). I have reviewed the contents and every effort has been made to ensure accuracy; however, inadvertent errors in grammar, spelling, punctuation, or word choice may occur, that were not noted before signing the document and should not alter the intended clinical meaning. Charges/Coding Visit Charges Inpatient E&M: 08678 Init Hosp L3
--- NOTE | 2025-11-10 12:35 | PN.HOSP_ITS ---
Subjective Subjective Patient states he feels much better today. Sats are 97% on 3 L nasal cannula. He states his breathing is less labored and he feels a lot better. He would like to get out of bed up into a chair. Nursing is holding off as his blood pressures have remained on the soft side and he is getting 2 more units of blood. He states DrWilfredo Lopez saw him this morning indicated that the plan is for scopes tomorrow. His hemoglobin did drop again despite 2 units of packed red blood cells yesterday so I do suspect there is active bleeding. Patient states he is not significantly ambulatory at baseline. Objective Data Objective Data Vital Signs: Vital Signs Temp Pulse Resp BP Pulse Ox O2 Del Method O2 Flow Rate 98.7 F 61 14 104/44 L 97 Nasal Cannula 3 11/10/25 12:16 11/10/25 12:16 11/10/25 12:16 11/10/25 12:16 11/10/25 12:16 11/10/25 12:16 11/10/25 12:16 Oxygen Flow Rate (L/min) 3 Oxygen Delivery Method Nasal Cannula Weight: 164.4 kg Body Mass Index (BMI) 47.8 Intake & Output: Intake and Output for Last 24 Hours 11/08/25 11/09/25 11/10/25 23:59 23:59 23:59 Intake Total 0 / 0 1290 / 1290 680 / 680 Output Total 825 / 825 125 / 125 Balance 0 / 0 465 / 465 555 / 555 Lab / Micro Data 11/10/25 03:53 11/10/25 03:53 Labs: Laboratory Results - last 24 hr 11/09/25 08:44: Blood Type B POSITIVE, Antibody Screen NEGATIVE, Crossmatch See Detail 11/09/25 08:44: Crossmatch See Detail 11/09/25 11:29: POC Glucose 93 11/09/25 17:09: POC Glucose 89 11/09/25 18:44: Hgb 7.9 L 11/09/25 22:26: POC Glucose 84 11/10/25 02:49: POC Glucose 70 L 11/10/25 03:53: WBC 4.9, RBC 3.03 L, Hgb 7.1 L, Hct 24.7 L, MCV 81.5, MCH 23.4 L , MCHC 28.7 L, RDW Std Deviation 51.2 H, RDW Coeff of Jazmin 17.4 H, Plt Count 70 L , MPV 11.9, Immature Gran % (Auto) 0.200, Neut % (Auto) 76.6 H, Lymph % (Auto) 10.7 L, [place] % (Auto) 11.5 H, Eos % (Auto) 0.8, Baso % (Auto) 0.2, Absolute Neuts (auto) 3.7, Absolute Lymphs (auto) 0.52 L, Nucleated RBC % 0, Sodium 144, Potassium 5.2 H, Chloride 109 H, Carbon Dioxide 25.8, Anion Gap 9, BUN 84 H, C reatinine 3.90 H, Estim Creat Clear Calc 20.56 L, Est GFR (MDRD) Non-Af 14 L, B UN/Creatinine Ratio 21.6 H, Glucose 88, Calcium 10.1, Phosphorus 6.3 H, M agnesium 2.6 H, Total Bilirubin 0.53, AST 10, ALT 12, Alkaline Phosphatase 96, T otal Protein 5.1 L, Albumin 3.1 L, Globulin 2.1 L, Albumin/Globulin Ratio 1.5, TSH 4.150 11/10/25 06:29: POC Glucose 82 11/10/25 11:17: POC Glucose 99 Micro: Microbiology 11/09/25 01:15 Urine Catheter - Soler Urine Culture - Preliminary Culture exhibits no growth. 11/08/25 20:40 Mucosa - Nose SARS-CoV-2, Influenza & RSV (PCR) - Final Physical Exam Const alert, oriented x3, no apparent distress and well nourished; Negative for average body habitus or healthy appearing Constitutional Narrative: Morbidly obese, elderly, chronically ill-appearing white male, sitting up in bed, watching television, nursing at bedside, patient appears much perkier than yesterday and less fatigued HEENT normocephalic, head/scalp atraumatic and moist oral mucous membranes HEENT Narrative: Mallampati 3-4, no thrush Resp normal respiratory effort, no retractions, no use of accessory muscles and clear to auscultation bilaterally Resp Narrative: Diminished with no adventitious sounds, no conversational dyspnea Auscultation: Negative for crackles, rhonchi or wheezes Cardio regular rate, regular rhythm, S1 normal heart sound, S2 normal heart sound, no murmurs, no rub, no gallops and no clicks GI normal to inspection, nondistended, normoactive bowel sounds, soft to palpation and non-tender GI Narrative: Large protuberant abdomen Extremity Extremity Narrative: Trace bilateral lower extremity edema, no cyanosis or clubbing, lower extremities wrapped in Jose Angel bandages Skin Skin Narrative: Bilateral upper extremities with multiple areas of ecchymosis, lower extremity skin is dry Neuro moves all extremities and no focal motor deficits Neuro Narrative: Marked generalized weakness with no focal deficits Speech: speech normal Psych affect normal Psych Narrative: Patient makes good eye contact and interacts appropriately Assessment & Plan Assessment/Plan (1) Lower extremity edema: (2) Acute decompensated heart failure: (3) (HFpEF) heart failure with preserved ejection fraction: QUALIFIERS: Heart failure chronicity: acute on chronic Qualified Code(s): I50.33 - Acute on chronic diastolic (congestive) heart failure (4) Acute on chronic anemia: (5) Iron deficiency: (6) Thrombocytopenia: (7) Leukopenia: (8) Hypothermia: (9) Elevated troponin: PLAN: Plan Dyspnea/new hypoxia-multifactorial (acute on chronic HFpEF/acute on chronic anemia/COPD exacerbation) - Initially thought to be related to acute on chronic HFpEF and was given diuretics but suspect there is a component related to acute on chronic anemia as well/history of tobacco abuse up to 4 packs a day -Echocardiogram done today shows an EF of 65 to 70% with moderate tricuspid valve insufficiency and right ventricular systolic pressure of 40 to 45 mmHg with mild pulmonary hypertension and a dilated IVC with normal respiratory collapse and right atrial pressures of 5 to 10 mmHg--> no changes from previous echocardiogram - Will hold off on Bumex today and dose as needed with blood transfusion if needed - Currently requiring 3 L nasal cannula and baseline is room air - Wean oxygen as able as sats are currently 97 to 100% with 3 L - Will need ambulatory pulse ox prior to discharge and I do anticipate you needing oxygen at discharge - Continue DuoNebs - Transfused 2 units packed red blood cells on 10/20/2025 and will dose another 2 units today - Low sodium and volume restrict diet to 1500 cc - Check daily weights Acute on chronic anemia secondary to chronic renal disease and iron deficiency - Baseline hemoglobin appears to run typically between 8 and 9 - hemoglobin 6.2 yesterday and corrected to 7.9 after 2 units packed red blood cells but today back to 7.1 -Guaiac is not yet been obtained but given further drop in hemoglobin despite transfusion will consult GI as I suspect there might be active bleeding - Iron studies performed and consistent with iron deficiency - Patient states he is had previous colonoscopy but never had EGD and denies any known blood or dark tarry stools - Continue Protonix IV 40 mg twice daily - Continue to hold Eliquis - DDAVP dosed on 11/09/2025 with platelet issues and CKD stage IV Pancytopenia -Leukopenia has resolved - Cultures pending but no acute signs of infection so hold off on antibiotics at this time unless change in status Acute thrombocytopenia - Highly suspect this may be consumptive at this point - Continue current treatment and repeat in a.m. - DDAVP given yesterday - Repeat in a.m. Hypothermia - Had some hypothermia again through the evening but resolved today and now 98.7 - TSH is within normal limits - etiology unclear Troponin elevation - Echocardiogram without any wall motion abnormality - patient remains without chest pain - Likely multifactorial from demand ischemia from anemia and heart failure as well as decreased clearance related to renal disease - No further workup at this time Borderline hypotension - Start midodrine 10 3 times daily - Unclear if the cuff pressures are entirely accurate due to body habitus - No obvious perfusion issues at this time History of atrial fibrillation - Eliquis on hold due to suspected bleeding - Patient is not on any rate modifying medications CKD stage IV -Slight bump from baseline with diuretics so we will hold off on diuretics today - Monitor - Avoid nephrotoxins - No current need for SURGEON/PRESIDENT Hyperkalemia - Likely related to slight bump in creatinine - 5.2 so we will repeat in a.m. and hold off on Bumex DM-2 - Patient with decreased p.o. intake will give basal insulin 15 units for now - SSI as ordered - Accu-Cheks as ordered - Cardiac/carb controlled diet Essential hypertension - Blood pressures on the low side will hold home Entresto for now - Continue to monitor blood pressure BPH with obstruction/acute urinary retention -Doxazosin on hold due to borderline blood pressures - Straight cath as needed x 3 if ongoing retention may need to utilize Soler catheter Hyperlipidemia - continue home atorvastatin HELDER - Continue home CPAP Morbid obesity - Recommend weight loss-complicates treatment, prognosis, outcomes DVT prophylaxis - SCDs - chemoprophylaxis on hold due to acute anemia CODE STATUS - DNR CCA with no intubation - Overall prognosis is not good with age and multiple comorbid conditions so we will go ahead and consult palliative care to evaluate tomorrow Charges/Coding Visit Charges Inpatient E&M: 84794 Subs Hosp L3
[2025-11-10 14:32] LABS: Anion Gap 13 (7-18); BUN 85 mg/dL (4-19); BUN/Creat Ratio 20.5 RATIO (10-20); Calcium,Total 10.2 mg/dL (7.6-11.0); Carbon Dioxide 25.0 mmol/L (20.0-29.0); Chloride 107 mmol/L (96-106); Estimated Creatinine Clearance 19.36 ml/min (50-250); Glucose 160 mg/dL (70-99); Potassium 5.0 mmol/L (3.5-5.1)
[2025-11-10] MEDS: 0.9% Saline Lock 10 ML Syringe IV (21:38)
[2025-11-11] VITALS (18 sets, daily range): BP systolic 87–143; BP diastolic 35–127; PULSE 52–76; RESP 15–22; TEMP 35.4–37.4; O2SAT 86–99; BMI 48.1
[2025-11-11 07:11] LABS: Hematocrit 30.0 % (40-54); Hemoglobin 8.5 g/dL (13.0-16.5); Immature Granulocytes Count 0.040 X10^3/uL (0.0-0.0); Mean Corp Hgb Conc 28.3 g/dL (32-36); Mean Corpuscular Volume 83.3 fL (80-94); NRBC Flagged by Analyzer 0 % (0-5); POSITIVE COUNT YES; POSITIVE DIFFERENTIAL YES; Platelet Count 67 K/mm3 (150-450); RBC Distribution Width CV 17.5 % (11.6-14.6); RBC Distribution Width SD 52.5 fl (35.1-43.9); Red Blood Count 3.60 M/mm3 (4.6-6.2); White Blood Count 6.9 K/mm3 (4.4-11.0)
[2025-11-11 07:16] LABS: Prothrombin Time (Protime)PT. 18.0 SECONDS (11.7-14.9)
[2025-11-11 07:17] LABS: Partial Thromboplast Time 35.1 Seconds (24.1-36.2)
--- NOTE | 2025-11-11 07:33 | PN.HOSP_ITS ---
Objective Data Objective Data Vital Signs: Vital Signs Temp Pulse Resp BP Pulse Ox O2 Del Method O2 Flow Rate 99.3 F H 72 21 H 109/64 99 Nasal Cannula 3 11/11/25 07:00 11/11/25 07:00 11/11/25 07:00 11/11/25 07:00 11/11/25 07:00 11/11/25 07:00 11/11/25 07:00 Oxygen Flow Rate (L/min) 3 Oxygen Delivery Method Nasal Cannula Weight: 165.4 kg Body Mass Index (BMI) 48.1 Intake & Output: Intake and Output for Last 24 Hours 11/09/25 11/10/25 11/11/25 23:59 23:59 23:59 Intake Total 1290 / 1290 1780 / 1780 Output Total 825 / 825 125 / 125 Balance 465 / 465 1655 / 1655 Lab / Micro Data 11/11/25 06:30 11/11/25 06:30 Labs: Laboratory Results - last 24 hr 11/09/25 08:44: Crossmatch See Detail 11/10/25 11:17: POC Glucose 99 11/10/25 14:08: Sodium 146 H, Potassium 5.0, Chloride 107 H, Carbon Dioxide 25.0, Anion Gap 13, BUN 85 H, Creatinine 4.16 H, Estim Creat Clear Calc 19.36 L, Est GFR (MDRD) Non-Af 13 L, BUN/Creatinine Ratio 20.5 H, Glucose 160 H, Calcium 10.2 11/10/25 15:11: POC Glucose 165 H 11/10/25 21:40: POC Glucose 146 H 11/11/25 06:30: WBC 6.9, RBC 3.60 L, Hgb 8.5 L, Hct 30.0 L, MCV 83.3, MCH 23.6 L , MCHC 28.3 L, RDW Std Deviation 52.5 H, RDW Coeff of Jazmin 17.5 H, Plt Count 67 L , MPV TNP, Immature Gran % (Auto) 0.600, Neut % (Auto) 80.2 H, Lymph % (Auto) 7.0 L, [place] % (Auto) 11.2 H, Eos % (Auto) 0.6, Baso % (Auto) 0.4, Absolute Neuts (auto) 5.5, Absolute Lymphs (auto) 0.48 L, Nucleated RBC % 0, PT 18.0 H, INR 1.5, APTT 35.1 Micro: Microbiology 11/09/25 01:15 Urine Catheter - Soler Urine Culture - Preliminary Culture exhibits no growth. 11/08/25 20:40 Mucosa - Nose SARS-CoV-2, Influenza & RSV (PCR) - Final Physical Exam Const no apparent distress and well nourished; Negative for average body habitus or healthy appearing Constitutional Narrative: Morbidly obese, elderly, chronically ill-appearing white male, resting comfortably in bed, has just returned from EGD and is sleeping comfortably HEENT normocephalic and head/scalp atraumatic Eyes EOMs intact bilaterally Eyes Narrative: Conjunctiva pallor bilaterally, no scleral icterus Neck supple Neck Narrative: Neck is short and thick, trachea midline Resp normal respiratory effort, no retractions, no use of accessory muscles and clear to auscultation bilaterally Resp Narrative: Diminished with no adventitious sounds, no conversational dyspnea Auscultation: Negative for crackles, rhonchi or wheezes Cardio regular rate, regular rhythm, S1 normal heart sound, S2 normal heart sound, no murmurs, no rub, no gallops and no clicks GI normal to inspection, nondistended, normoactive bowel sounds, soft to palpation and non-tender GI Narrative: Large protuberant abdomen Extremity Extremity Narrative: Trace bilateral lower extremity edema, no cyanosis or clubbing, lower extremities wrapped in Jose Angel bandages, pedal and radial pulses are 2+ Neuro Neuro Narrative: Unable to assess at this time as patient is sleeping postprocedure Psych Psych Narrative: Unable to assess at this time as patient is sleeping postprocedure Assessment & Plan Assessment/Plan (1) Lower extremity edema: (2) Acute decompensated heart failure: (3) (HFpEF) heart failure with preserved ejection fraction: QUALIFIERS: Heart failure chronicity: acute on chronic Qualified Code(s): I50.33 - Acute on chronic diastolic (congestive) heart failure (4) Acute on chronic anemia: (5) Iron deficiency: (6) Thrombocytopenia: (7) Leukopenia: (8) Hypothermia: (9) Elevated troponin: (10) Esophageal varices: (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: (12) Gastric ulcer: (13) Duodenal ulcer: (14) Generalized weakness: (15) Debility: PLAN: Plan Dyspnea/new hypoxia-multifactorial (acute on chronic HFpEF/acute on chronic anemia/COPD exacerbation) - Initially thought to be related to acute on chronic HFpEF and was given diuretics but suspect there is a component related to acute on chronic anemia as well/history of tobacco abuse up to 4 packs a day -Echocardiogram showed an EF of 65 to 70% with moderate tricuspid valve insufficiency and right ventricular systolic pressure of 40 to 45 mmHg with mild pulmonary hypertension and a dilated IVC with normal respiratory collapse and right atrial pressures of 5 to 10 mmHg--> no changes from previous echocardiogram - Will hold off on Bumex today and dose as needed with blood transfusion if needed - Currently requiring 3 L nasal cannula and baseline is room air - I did ask nursing to wean his oxygen today as he is 97 to 100% on 3 L nasal cannula - Will need ambulatory pulse ox prior to discharge and I do anticipate you needing oxygen at discharge - Continue DuoNebs - Transfused 2 units packed red blood cells on 11/09/2025 and 2 u on 11/10/25 - Continue low sodium and volume restrict diet to 1500 cc - Check daily weights Acute upper GI bleed secondary to gastric and duodenal ulcers - Continue IV PPI twice daily for today we will transition to Protonix 40 mg p.o. twice daily tomorrow to continue for 3 months - Carafate added and to be continued 1 g 3 times daily for 1 month - Will need follow-up EGD in 3 months to assess for healing - Biopsies were taken and results pending - GI following-appreciate input Esophageal varices - Suspect patient may have some liver disease at baseline from [facility] - Outpatient follow-up - No signs of acute bleeding or need for banding on EGD Acute on chronic anemia secondary to chronic renal disease and iron deficiency - Baseline hemoglobin appears to run typically between 8 and 9 -Acute anemia related to upper GI bleed from gastric and duodenal ulcers -EGD on 11/11/2025 showed grade 2 esophageal varices, suspected North's esophagus, oozing gastric ulcers that were treated with argon plasma coagulation and oozing duodenal ulcers that were treated with argon plasma coagulation -Treatment as above - Transfuse 4 units packed red blood cells and total - Iron studies performed and consistent with iron deficiency - Continue Protonix IV 40 mg twice daily - Continue to hold Eliquis and okay to restart tomorrow 11/12/2025 Generalized weakness/debility - Acute on chronic - Will likely need placement at discharge with current plan TCU - Anticipate patient may be medically stable in the next 48 hours yes North's esophagus-suspected - Mucosal changes noted on EGD - Biopsies pending - Protonix and Carafate as noted per GI - Ongoing outpatient GI follow-up Pancytopenia -Leukopenia has resolved - Urine culture shows gram-positive cocci but colony count is thousand to 10,000 CFU's per mL - Likely not acute infection - Blood cultures are still pending Acute thrombocytopenia - Highly suspect this may be consumptive at this point - Continue current treatment and repeat in a.m. -Seems to be stabilizing some - Repeat in a.m. Hypothermia -Resolved Troponin elevation - Echocardiogram without any wall motion abnormality - patient remains without chest pain - Likely multifactorial from demand ischemia from anemia and heart failure as well as decreased clearance related to renal disease - No further workup at this time Borderline hypotension - Continue midodrine will try to wean as able - Unclear if the cuff pressures are entirely accurate due to body habitus - No obvious perfusion issues at this time History of atrial fibrillation -Okay per GI to restart Eliquis tomorrow at 2.5 mg p.o. twice daily - Patient is not on any rate modifying medications LIDA on CKD stage IV secondary to ischemic ATN from hypotension -Creatinine trends up -Patient is still making urine and Soler had to be placed for urinary retention -Consider restarting Cardura tomorrow if patient tolerant from a hemodynamic standpoint - Will give 1 L IV fluids - Monitor - Avoid nephrotoxins - No current need for MECHANICAL ASSEMBLER - Repeat lab in a.m. Hyperkalemia - Likely related to slight bump in creatinine - Remains mildly hyperkalemic with potassium of 5.4 - 1 L IV fluids to be given - Kayexalate x 1 dose 15 mg - Repeat lab in a.m. DM-2 - Patient with decreased p.o. intake will give basal insulin 15 units for now - A1c was 7.4 but likely underestimates glycemic control due to anemia - SSI as ordered - Accu-Cheks as ordered - Cardiac/carb controlled diet Essential hypertension - Blood pressures on the low side will hold home Entresto for now and restart as hemodynamics permit - Continue to monitor blood pressure BPH with obstruction/acute urinary retention - Doxazosin on hold due to borderline blood pressures--> will restart as hemodynamics permit -Soler catheter placed due to ongoing retention issues Hyperlipidemia - continue home atorvastatin HELDER - Continue home CPAP Morbid obesity - Recommend weight loss - complicates treatment, prognosis, outcomes DVT prophylaxis - SCDs - chemoprophylaxis on hold due to acute anemia CODE STATUS - DNR CCA with no intubation - Overall prognosis is not good with age and multiple comorbid conditions so we will go ahead and consult palliative care to evaluate tomorrow Charges/Coding Visit Charges Inpatient E&M: 55178 Subs Hosp L3
--- NOTE | 2025-11-11 07:53 | PRE.ANES_ITS ---
ASA Classification* ASA Classification ASA Classification: 3 Assessment & Plan Anesthesia* Anesthesia Assessment Anesthesia Assessment: Discussed sedation and/or anesthesia options, risks, benefits, and alternatives with patient/parents/legal guardian/POA. Questions invited. The patient/parents/legal guardian/POA seems to understand and agrees to proceed with anesthesia plan. Reviewed the physical assessment, medical history, allergy history and patient home medications list prior to surgery/procedure/anesthetic and documented any changes. Performed airway and anesthesia risk assessments. Anesthesia Type Anesthesia Type: MAC History Source History Obtained from:: Patient and Chart Anesthesia Focused Assessment* Temperature: 99.3 F Pulse Rate: 72 Blood Pressure: 109/64 Respiratory Rate: 21 Pulse Ox: 99 Oxygen Delivery Method: Room Air Oxygen Flow Rate (L/min): 3 Airway Assessment Mouth opens: 2 cm Mallampati Score: IV Teeth Condition: Dentures (Full upper and lower dentures are out.) Neck Range of motion (ROM): Limited ROM (Severe Restriction) Labs Anesthesia Preop lab: CBC WBC, (4.4-11.0) 6.9 K/mm3 Today, 06:30 RBC, (4.6-6.2) 3.60 M/mm3 L Today, 06:30 Hgb, (13.0-16.5) 8.5 g/dL L Today, 06:30 Hct, (40-54) 30.0 % L Today, 06:30 Plt Count, (150-450) 67 K/mm3 L Today, 06:30 CHEMISTRY Potassium, (3.5-5.1) 5.0 mmol/L 11/10/25, 14:08 Sodium, (135-145) 146 mmol/L H 11/10/25, 14:08 Magnesium, (1.5-2.2) 2.6 mg/dL H 11/10/25, 03:53 Phosphorus, (2.7-4.5) 6.3 mg/dL H 11/10/25, 03:53 BUN, (4-19) 85 mg/dL H 11/10/25, 14:08 Creatinine, (0.70-1.20) 4.16 mg/dL H 11/10/25, 14:08 Glucose, (70-99) 160 mg/dL H 11/10/25, 14:08 POC Glucose, (74-106) 88 mg/dL Today, 07:25 TSH, (0.300-4.200) 4.150 uIU/mL 11/10/25, 03:53 COAG PT, (11.7-14.9) 18.0 SECONDS H Today, 06:30 Pre-Assessment Diagnosis/Proposed Procedure Planned Operative Procedure(s): Esophageal gastroduodenoscopy Anesthesia History 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 When Was Last Pacemaker Check QUESTION #4 FULL TEXT: You/Your Family Experience fever (hyperthermia) with Anesthesia Last Oral Intake Last Oral intake: Last Oral Intake NPO since 0000 Meds taken in AM with sips of water? Meds patient instructed to take am of surgery Any additional information?: Yes Meds taken in AM with sips of water?: No PONV PONV - senior windows engineer: PONV - senior windows engineer Female HX of Motion Sickness HX of N/V After Surgery Non-Smoker Duration of Surgery greater than 60 minutes Number of Risk Factors PONV Score Height & Weight Height & Weight: Anesthesia: Height & Weight Height 6 ft 1 in 11/09/25 12:45 Weight: 165.4 kg 11/11/25 05:32 Body Mass Index (BMI) 48.1 11/11/25 05:32 Respiratory Assessment Respiratory Assessment - senior windows engineer: Respiratory Tract Infection Hx - senior windows engineer Hx Respiratory Tract Infection No 11/10/25 21:23 Any additional information?: Yes Hx Respiratory Tract Infection: Yes History of Anesthesia Respiratory Infection details: Chronic productive cough. STOP Sleep Apnea STOP Sleep Apnea - senior windows engineer: STOP Sleep Apnea - senior windows engineer Hx Hypertension Yes: Pt unsure 11/10/25 09:09 Hx Sleep Apnea Yes 11/08/25 22:52 CPAP Yes 11/08/25 22:52 BIPAP No 11/08/25 22:52 Do you snore loudly (louder than talking or can be heard Do you often feel tired/ fatigued/ sleepy during daytime? Has anyone observed you stop breathing during sleep? STOP Results Positive 11/08/25 22:52 QUESTION #5 FULL TEXT : Do you snore loudly (louder than talking or can be heard through closed doors)? 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 Specify any problems Hx of Preganancy in last 3 N/A 11/08/25 22:52 Months Nurse Filling Out Transfusion LVAUT 11/08/25 22:52 & Questions: Date: 11/08/25 11/08/25 22:52 Time: 23:16 11/08/25 22:52 Patient unable to answer at this time (ie. confused, unrespo /Reproduction History /Reproductive History - senior windows engineer: /Reproductive Hx- senior windows engineer Hx Now No 11/10/25 21:23 Gestational Age (in weeks): EDC: Hx Hx Para Hx Section SAB No 11/10/25 21:23 Does the father of the baby or his family experience fever w Father of the baby Malignant Hypertension history comment Active Medications Active Medications: Current Medications Generic Name Dose Route Start Last Admin Trade Name Freq PRN Reason Stop Dose Admin Acetaminophen 650 mg 11/08/25 22:16 11/09/25 23:21 Acetaminophen 325 Mg Tablet PO 650 mg Q6H PRN PRN Administration Pain 1-10 Or Fever>100.7 Albuterol/Ipratropium 3 ml 11/09/25 18:00 11/10/25 13:46 Ipratropium/Albuterol Sulfate 3 Ml Ampul.Neb INHALATION 3 ml Q6HWA.RT NURY Administration Ascorbic Acid 1,000 mg 11/10/25 12:00 11/10/25 15:13 Ascorbic Acid 500 Mg Tablet PO 1,000 mg 1200,1700 NURY Administration Atorvastatin Calcium 40 mg 11/09/25 22:00 11/10/25 21:33 Atorvastatin Calcium 40 Mg Tablet PO 40 mg QHS NURY Administration Bumetanide 1 mg 11/09/25 22:00 11/09/25 23:23 Bumetanide 0.5 Mg Tablet PO Not Given On Hold: 11/10/25 07:29 BID NURY Protocol Doxazosin Mesylate 2 mg 11/09/25 22:00 11/09/25 23:24 Doxazosin 1 Mg Tablet PO 2 mg On Hold: 11/10/25 07:30 QHS NURY Administration Ferrous Sulfate 325 mg 11/09/25 12:00 11/10/25 15:13 Ferrous Sulfate 325 Mg Tablet PO 325 mg 1200,1700 NURY Administration Glucagon 1 mg 11/08/25 22:52 Glucagon 1 Mg/Ml Syringe IM X1 PRN Hypoglycemia Protocol Dextrose 250 mls @ 0 mls/hr 11/08/25 22:52 Dextrose 10%-Water IV .Q0M PRN HYPOGLYCEMIA Protocol As Directed Sodium Chloride 250 mls @ 15 mls/hr 11/08/25 22:53 IV .[id number] PRN Saline Flush Sodium Chloride 250 mls @ 15 mls/hr 11/08/25 22:53 IV .[id number] PRN Additional IVPB Infusion Pantoprazole Sodium 40 mg/ 100 mls @ 300 mls/hr 11/09/25 22:00 11/10/25 21:59 Sodium Chloride IV Infused Q12 NURY Infusion Insulin Glargine 10 unit 11/10/25 10:00 11/10/25 09:49 Insulin Glargine-Yfgn 100 Unit/Ml Pen SC Not Given DAILY [facility] Protocol Insulin Human Lispro 0 unit 11/09/25 07:00 11/10/25 21:44 Insulin Lispro 100 Unit/Ml Insuln.Pen SC Not Given ACHS [facility] Protocol Melatonin 10 mg 11/08/25 22:16 11/09/25 23:21 Melatonin 10 Mg Tablet PO 10 mg QHS PRN PRN Administration INSOMNIA Midodrine 10 mg 11/10/25 17:00 11/10/25 15:15 Midodrine Hcl 5 Mg Tablet PO 10 mg TIDCM NURY Administration Nitroglycerin 0.4 mg 11/08/25 22:02 Nitroglycerin (Inpatient Use) 0.4 Mg Tab.Subl SL Q5M PRN CHEST PAIN Sodium Chloride 10 - 40 ml 11/08/25 22:53 11/10/25 21:38 0.9% Saline Lock 10 Ml Syringe IV 10 ml UD PRN Administration SALINE FLUSH [facility] Medical History CKD (chronic kidney disease), stage IV Diabetes CHF (congestive heart failure) Afib CAD (coronary artery disease) Home Medications ?Medication ?Instructions ?Recorded ?Last Taken ?Type doxazosin 2 mg tablet 2 mg PO QHS PROSTATE 6 11/08/25 History nitroglycerin 0.4 mg sublingual 0.4 mg sublingual PRN PRN CHEST 04/01/18 Unknown History tablet (Nitrostat) PAIN apixaban 2.5 mg tablet (Eliquis) 2.5 mg PO BID blood t hinner 03/27/24 11/08/25 History insulin degludec 100 unit/mL 40 unit subcut DAILY bloo d sugar 03/27/24 11/08/25 History subcutaneous solution (Tresiba U-100 Insulin) atorvastatin 40 mg tablet 40 mg PO DAILY cholesterol 0 07/21/25 11/08/25 History sacubitril 97 mg-valsartan 103 mg 1 tab PO BID heart 0 07/21/25 11/08/25 History tablet (Entresto) furosemide 40 mg tablet 40 mg PO BID fluid #180 tabs 07/23/25 11/08/25 Rx Allergy/AdvReac Type Severity Reaction Status Date / Time finasteride (From Proscar) Allergy Hives Verified 11/08/25 19:52 Surgical History (Updated 11/11/25 @ 08:[address] Marlon Reina MD) S/p total knee replacement, bilateral H/O inguinal hernia repair Social History household members: family Smoking Status: Former smoker Review of Systems (Anesthesia) ROS Narrative System reviewed and no additional complaints, except as documented.
[2025-11-11 07:59] LABS: Anion Gap 10 (7-18); BUN 89 mg/dL (4-19); BUN/Creat Ratio 20.4 RATIO (10-20); Calcium,Total 10.4 mg/dL (7.6-11.0); Carbon Dioxide 26.0 mmol/L (20.0-29.0); Chloride 107 mmol/L (96-106); Estimated Creatinine Clearance 18.41 ml/min (50-250); Glucose 90 mg/dL (70-99); Potassium 5.4 mmol/L (3.5-5.1)
[2025-11-11] MEDS: Lactated Ringers 1,000 ML 15 ML IV (08:12)
--- NOTE | 2025-11-11 09:00 | EGD_PTH ---
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 U#:[id number] AGE/SX: 89/M ROOM: [facility] RE11/08/[address]: Dr. Yael Keith DO : 1935 BED: 1 DIS: 11/12/2025 SPEC #: [id number] RECD: 11/11/25 09:42 STATUS: MICHAEL REAbdoulaye #: [id number] CARLOS: 11/11/25 09:[address]: Artem Lopez DEPT: SURGICAL PATHOLOGY RECD BY: Yasir Todd ENTERED: 11/11/25 10:34 SP TYPE: EGD BIOPSY OT DR: DO Dr. Leif Kelley MD Dr. Victor Velasquez, MD Heather Evans ASSISTANT ACCOUNT MANAGER-C Geneva Larkin ASSISTANT ACCOUNT MANAGERPatriaC ANSELMO Sandra Tissues: A - Esophagus, NOS Procedures: Surgery Specimen Level IV HEADER OPERATION: EGD, cautery with APC, and biopsies PRE-OP DIAGNOSIS: Anemia TISSUE SUBMITTED: A- Distal esophagus biopsy MICROSCOPIC DIAGNOSIS A. Esophagus, distal, biopsy: - Columnar mucosa negative for goblet cell metaplasia. - No squamous mucosa seen. MICROSCOPIC DESCRIPTION Slides are reviewed. GROSS DESCRIPTION A. Received in fixative is one container labeled with the patient's name and designated Distal esophagus biopsy. The specimen consists of one irregular fragment of best tissue that measures 0.5 x 0.3 x 0.2 cm. The specimen is totally submitted in one cassette. 11/11/2025 CPT:10287
--- NOTE | 2025-11-11 09:09 | OP.EGD_ITS ---
Patient Name: Kei Hu Procedure Date: 11/11/2025 8:13 AM Date of : 1935 Age: 89 Procedure: Upper GI endoscopy Indications: Acute post hemorrhagic anemia, Iron deficiency anemia, Heme positive stool, Melena Providers: Artem Lopez DO Medicines: Monitored Anesthesia Care Patient Profile: This is an 89 year old male. Refer to note in patient chart for documentation of history and physical. Complications: No immediate complications. Procedure: Pre-Anesthesia Assessment: - Prior to the procedure, a History and Physical was performed, and patient medications and allergies were reviewed. The patient is competent. The risks and benefits of the procedure and the sedation options and risks were discussed with the patient. All questions were answered and informed consent was obtained. Patient identification and proposed procedure were verified by the physician in the pre-procedure area. Mental Status Examination: alert and oriented. Airway Examination: normal oropharyngeal airway and neck mobility. Respiratory Examination: clear to auscultation. CV Examination: normal. Prophylactic Antibiotics: The patient does not require prophylactic antibiotics. Prior Anticoagulants: The patient has taken no anticoagulant or antiplatelet agents. ASA Grade Assessment: II - A patient with mild systemic disease. After reviewing the risks and benefits, the patient was deemed in satisfactory condition to undergo the procedure. The anesthesia plan was to use monitored anesthesia care (MAC). Immediately prior to administration of medications, the patient was re-assessed for adequacy to receive sedatives. The heart rate, respiratory rate, oxygen saturations, blood pressure, adequacy of pulmonary ventilation, and response to care were monitored throughout the procedure. The physical status of the patient was re-assessed after the procedure. After obtaining informed consent, the endoscope was passed under direct vision. Throughout the procedure, the patient's blood pressure, pulse, and oxygen saturations were monitored continuously. The gastroscope was introduced through the mouth, and advanced to the fourth part of the duodenum. Small bowel enteroscopy was deemed necessary. The upper GI endoscopy was accomplished without difficulty. The patient tolerated the procedure well. Scope In: 8:50:32 AM Scope Out: 8:59:50 AM Total Procedure Duration Time 0 hours 9 minutes 18 seconds Findings: Grade II varices were found in the upper third of the esophagus. They were 5 mm in largest diameter. There were esophageal mucosal changes consistent with short-segment North's esophagus present in the lower third of the esophagus. The maximum longitudinal extent of these mucosal changes was 2 cm in length. Mucosa was biopsied with a cold forceps for histology in a targeted manner at intervals of 1 cm in the lower third of the esophagus. One specimen bottle was sent to pathology. Verification of patient identification for the specimen was done. Estimated blood loss was minimal. Many oozing linear gastric ulcers with pigmented material were found in the gastric body. The largest lesion was 5 mm in largest dimension. Coagulation for bleeding prevention using argon plasma at 0.6 liters/minute and 20 bailon was successful. Estimated blood loss was minimal. Two oozing cratered duodenal ulcers with pigmented material were found in the first portion of the duodenum and in the second portion of the duodenum. The largest lesion was 10 mm in largest dimension. Coagulation for hemostasis using argon plasma at 0.6 liters/minute and 30 bailon was successful. Estimated blood loss was minimal. Impression: - Grade II esophageal varices. 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 Biopsied. - Oozing gastric ulcers with pigmented material. Treated with argon plasma coagulation (APC). - Oozing duodenal ulcers with pigmented material. Treated with argon plasma coagulation (APC). Recommendation: - [facility]. - Full liquid diet today. - Continue present medications. - Await pathology results. - Repeat upper endoscopy in 1 year for surveillance. Procedure Code(s): --- Professional --- 74248, 59, Small intestinal endoscopy, enteroscopy beyond second portion of duodenum, not including ileum; with control of bleeding (eg, injection, bipolar cautery, unipolar cautery, laser, heater probe, stapler, plasma government relations director) 31742, 51, Small intestinal endoscopy, enteroscopy beyond second portion of duodenum, not including ileum; with biopsy, single or multiple CPT copyright 2021 [employer]. All rights reserved. The codes documented in this report are preliminary and upon manager marketing sales review may be revised to meet current compliance requirements. Artem Lopez DO 11/11/2025 9:08:40 AM This report has been signed electronically. Number of Addenda: 0 Note Initiated On: 11/11/2025 8:13 AM
--- NOTE | 2025-11-11 09:09 | OP.PROVAT_ITS ---
11/11/2025 Nithin Acevedo [address] [place] [address] Re : Upper GI endoscopy procedure for Kei Hu Dear Dr. Acevedo This procedure was performed on Tuesday, November 11, 2025. My impressions and recommendations are as follows: Impressions : - Grade II esophageal varices. 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 Biopsied. - Oozing gastric ulcers with pigmented material. Treated with argon plasma coagulation (APC). - Oozing duodenal ulcers with pigmented material. Treated with argon plasma coagulation (APC). Recommendations : - [facility]. - Full liquid diet today. - Continue present medications. - Await pathology results. - Repeat upper endoscopy in 1 year for surveillance. My findings are described in the full procedure note, which is enclosed. If I can be of further assistance, please feel free to contact me at . Sincerely, Artem Lopez, 11/11/2025 9:08:40 AM This report has been signed electronically.
--- NOTE | 2025-11-11 09:18 | PCM.PN.BLA ---
Progress Note Follow-up in office: 3 months for follow-up EGD] Okay to restart [place] on 01/13/2025 I could not see f patient was on a antiplatelet medicine New GI related medications for discharge: Carafate 1 g 3 times daily x 1 month on] Follow-up procedures needed: Follow-up procedure in 3 months Physical Exam Const alert, oriented x3, no apparent distress and healthy appearing General Appearance: cooperative GI normal to inspection, nondistended, normoactive bowel sounds, soft to palpation, non-tender and non-distended Percussion: normal to percussion Rectal Exam: deferred Assessment & Plan Assessment/Plan (1) Iron deficiency: (2) Acute on chronic anemia: PLAN: Plan Full liquid diet today and advance to regular diet tomorrow Visit Charges Inpatient E&M: 29170 Subs Hosp L3
--- NOTE | 2025-11-11 09:26 | PCM.POST.ANE ---
Anesthesia: Postop Eval I Current Vital Signs Temperature: 97 F Pulse Rate: 64 Blood Pressure: 121/40 Respiratory Rate: 16 Pulse Ox: 99 Oxygen Delivery Method: Simple Mask Oxygen Flow Rate (L/min): 6 Assessment Airway patent: Yes Spontaneous unlabored respirations: Yes Mental status: Awake and Calm nausea: No Vomiting: No Anesthesia Complication: No Fluid Hydration Crystalloid volume administer (ml): 100 Total IV fluid infused: 100 Progress Note Anesthesia document: Postop Eval 1 completed: Yes
--- NOTE | 2025-11-11 09:59 | PCM.POSTANE2 ---
Anesthesia Postop Eval I Sum Postop Eval Completion status Anesthesia document: Postop Eval 1 completed: Yes Anesthesia Postop Eval I Summary Anesthesia Postop Eval I Summary: Anesthesia Postop Eval I: Assessment Summary Airway patent Yes 11/11/25 09:27 [email or web address] Spontaneous unlabored Yes 11/11/25 09:27 [email or web address] respirations Mental status Awake,Calm 11/11/25 09:27 [email or web address] nausea No 11/11/25 09:27 [email or web address] Vomiting No 11/11/25 09:27 [email or web address] Anesthesia Postop Eval I: Fluid Summary Crystalloid volume administer 100 11/11/25 09:27 [email or web address] (ml) Colloids volume administered ( ml) Blood Product volume administered (ml) Total IV fluid infused 100 11/11/25 09:27 [email or web address] Anesthesia Postop Eval I: Summary Notes Anesthesia Complication No 11/11/25 09:27 [email or web address] Anesthesia Complication Comment: Post-operative progress note Anesthesia: Postop Eval II Evaluation Mental status: Awake and Calm Pain Level: 1 nausea: No Vomiting: No Complications Anesthesia Complication: No
[2025-11-11] MEDS: 0.9% Normal Saline (1000mL) 1,000 ML 100 ML IV (10:28)
[2025-11-11] MEDS: Pantoprazole Sodium 40 MG in 0.9% Normal Saline (100mL MB+) 100 ML 300 MG IV ×2 (10:34→21:50)
--- NOTE | 2025-11-11 10:41 | CASEMGMT ---
Discharge Planning A list of?SNF providers including quality and resource use data and consistent with the patient's preferred geographic region, medical needs, and insurance network was created in [facility]Port Guide.? This list was provided to the RN MICHAEL. Jaz Fisher, Discharge Planning Asst.
[2025-11-11] MEDS: Insulin Glargine-YFGN 100 UNIT/ML Pen 10 UNIT SC (11:01)
--- NOTE | 2025-11-11 11:25 | CASEMGMT ---
Addendum entered by Izzy Mars 11/11/25 12:48: Per Latha from [facility], they are not able to accept pt. abbie Sebastian life science research assistant, to send referral to [facility], 's 2nd preference. Original Note: CEFERINO RODRIGUEZ NOTE: Reviewed therapy notes from yesterday. Pt only able to ambulate 3 ft, additional therapy recommended. RN CM to room. Pt resting in bed. Discussed therapy and recommendations. Pt states he feels he would benefit from going somewhere for therapy before returning home. Inquired if he has preference of facility and made aware a SNF list can be provided. Pt placed call to his while this RN MICHAEL @ bedside and had her talk w/this RN MICHAEL about above. Discussed therapy and recommendations & made aware [place]. She was made aware a SNF list can be provided. She gave verbal list of preferences: 1) [facility] 2) [facility] 3) [facility]. She was made aware the list would be placed in pt's room for reference later, if desired. Referral sent to Latha, photography coordinator for [facility]. Palliative: Dr Keith placed order for palliative referral. She was made aware Nancy, palliative BLASTING HELPER, is on vacation. If pt able to discharge to [facility], Nancy can see pt there when she returns. If pt not able to discharge to [facility], CEFERINO RODRIGUEZ to f/u with and pt about referral and agency preference, if desired. CEFERINO RODRIGUEZ broached topic of palliative care w/pt and and info provided. states is interested in same. She was made aware someone will f/u with them next week about this. She voices appreciation. Noted Dr Lopez's PN states pt can resume Eliquis 01/13/25. He clarified with this RN MICHAEL he meant pt can resume Eliquis tomorrow, 11/12/25. Dr Keith notified. SNF list that was prepared by abbie Sebastian life science research assistant, placed in pt's room. Kenya DAVISN CEFERINO RODRIGUEZ
--- NOTE | 2025-11-11 14:46 | CASEMGMT ---
Addendum entered by Jaz Fisher 11/11/25 15:07: [facility] and will submit for precert. Unit phone number given in the event auth is obained. Original Note: Discharge Planning Call placed to pts d/t her snf choices not being in network [facility] pts insurance. After talking with pt, they settled on [facility]. RN CM updated. Referral sent via [facility] to [facility]. Jaz Fisher DC Planning Asst.
--- NOTE | 2025-11-11 17:05 | CASEMGMT ---
CEFERINO RODRIGUEZ NOTE: made aware [facility] pt. states would like to review info about palliative care prior to making decision. She was made aware a palliative info sheet and list of palliative agencies has been placed in pt's room for her to review. If pt has not been discharged by [facility], CEFERINO RODRIGUEZ to f/u with her re: decision. Kenya DAVISN CEFERINO RODRIGUEZ
[2025-11-12] VITALS (12 sets, daily range): BP systolic 83–104; BP diastolic 30–46; PULSE 52–71; RESP 16–21; TEMP 35.7–37; O2SAT 92–98; BMI 48.3
--- NOTE | 2025-11-12 07:59 | PCM.PN.HOSP ---
Objective Data Objective Data Vital Signs: Vital Signs Temp Pulse Resp BP Pulse Ox O2 Del Method O2 Flow Rate 97.9 F 70 20 H 89/33 L 94 Nasal Cannula 2 11/12/25 07:00 11/12/25 07:09 11/12/25 07:09 11/12/25 07:00 11/12/25 07:09 11/12/25 07:09 11/12/25 07:09 Oxygen Flow Rate (L/min) 2 Oxygen Delivery Method Nasal Cannula Weight: 166.2 kg Body Mass Index (BMI) 48.3 Intake & Output: Intake and Output for Last 24 Hours 11/10/25 11/11/25 11/12/25 23:59 23:59 23:59 Intake Total 1780 / 1780 2106 / 2506 550 / 550 Output Total 125 / 125 353 / 393 60 / 60 Balance 1655 / 1655 1753 / 2113 490 / 490 Lab / Micro Data 11/11/25 06:30 11/11/25 06:30 Labs: Laboratory Results - last 24 hr 11/11/25 06:30: Sodium 144, Potassium 5.4 H, Chloride 107 H, Carbon Dioxide 26.0, Anion Gap 10, BUN 89 H, Creatinine 4.39 H, Estim Creat Clear Calc 18.41 L, Est GFR (MDRD) Non-Af 12 L, BUN/Creatinine Ratio 20.4 H, Glucose 90, Calcium 10.4 11/11/25 10:04: POC Glucose 90 11/11/25 16:11: POC Glucose 169 H 11/11/25 21:48: POC Glucose 144 H 11/12/25 01:57: POC Glucose 128 H 11/12/25 06:32: POC Glucose 83 Micro: Microbiology 11/11/25 20:09 Stool Stool Occult Blood (LIS) - Final 11/11/25 15:52 Mucosa - Nasopharyngeal Respiratory Panel (PCR) - Final 11/09/25 01:15 Urine Catheter - [place] Urine Culture - Preliminary Gram Positive Cocci 11/08/25 20:40 Mucosa - Nose SARS-CoV-2, Influenza & RSV (PCR) - Final
[2025-11-12 08:10] LABS: Hematocrit 28.9 % (40-54); Hemoglobin 8.0 g/dL (13.0-16.5); Mean Corp Hgb Conc 27.7 g/dL (32-36); Mean Corpuscular Volume 86.5 fL (80-94); POSITIVE COUNT YES; Platelet Count 61 K/mm3 (150-450); RBC Distribution Width CV 17.9 % (11.6-14.6); RBC Distribution Width SD 56.0 fl (35.1-43.9); Red Blood Count 3.34 M/mm3 (4.6-6.2); White Blood Count 7.0 K/mm3 (4.4-11.0)
--- NOTE | 2025-11-12 08:31 | CASEMGMT ---
Social Work PAS/RR completed in the [facility] system, further review not needed. Copy of PAS/RR will be placed in chart in event pt is d/c on the weekend. RUBÉN Kwon
[2025-11-12 08:45] LABS: Anion Gap 11 (7-18); BUN 90 mg/dL (4-19); BUN/Creat Ratio 18.2 RATIO (10-20); Calcium,Total 10.1 mg/dL (7.6-11.0); Carbon Dioxide 25.0 mmol/L (20.0-29.0); Chloride 106 mmol/L (96-106); Estimated Creatinine Clearance 16.34 ml/min (50-250); Glucose 97 mg/dL (70-99); Potassium 5.2 mmol/L (3.5-5.1)
[2025-11-12] MEDS: Pantoprazole Sodium 40 MG in 0.9% Normal Saline (100mL MB+) 100 ML 300 MG IV (09:54)
[2025-11-12 10:41] LABS: Hematocrit 27.6 % (40-54); Hemoglobin 7.9 g/dL (13.0-16.5)
--- NOTE | 2025-11-12 12:36 | CASEMGMT ---
Addendum entered by Melania Schmidt 11/12/25 14:52: Social Work SW did receive an email back, the meeting with hospice is set up for 4pm. RUBÉN Kwon Original Note: Social Work SW spoke w/physician, pt would like to meet w/hospice. Referral sent via email, requested [facility] let SW know when they have set up a meeting. Pt to be assessed for the [facility]. RUBÉN Kwon
--- NOTE | 2025-11-12 17:45 | NURSING ---
education re chronic illness deferred till acute illness resolving
--- NOTE | 2025-11-12 18:14 | DS.PCM_ITS ---
Providers Date of Admission: 11/08/25 Date of Discharge: 11/12/25 Primary Care Physician: Dr. Nithin Acevedo MD Consultations 11/10/25 07:28 Consult: Gastroenterology Routine Consulting Provider: [facility] Reason for Consult: suspected GIB with acute on chronic anemia EMERGENT Consult: No Notified: Yes Date Notified: 11/10/25 Time Notified: 07:57 Method of Notification: Text 11/10/25 12:43 Consult: Inpatient Palliative Care Routine Consulting Provider: Nancy Urbina Reason for Consult: C care multiple comorbidities and expectations are not holey realistic EMERGENT Consult: No MD Notified: Yes Date Notified: 11/10/25 Time Notified: 12:43 Method of Notification: Text Reason For Visit: CHF EXACERBATION Diagnosis Discharge Diagnosis (1) Lower extremity edema: Status: Acute Code(s): R60.0 - Localized edema (2) Acute decompensated heart failure: Status: Acute Code(s): I50.9 - Heart failure, unspecified (3) (HFpEF) heart failure with preserved ejection fraction: Status: Acute Code(s): I50.30 - Unspecified diastolic (congestive) heart failure Qualifiers: Heart failure chronicity: acute on chronic Qualified Code(s): I50.33 - Acute on chronic diastolic (congestive) heart failure (4) Acute on chronic anemia: Status: Chronic Code(s): D64.9 - Anemia, unspecified (5) Iron deficiency: Status: Acute Code(s): E61.1 - Iron deficiency (6) Thrombocytopenia: Status: Acute Code(s): D69.6 - Thrombocytopenia, unspecified (7) Leukopenia: Status: Acute Code(s): D72.819 - Decreased white blood cell count, unspecified (8) Hypothermia: Status: Acute Code(s): T68.XXXA - Hypothermia, initial encounter (9) Elevated troponin: Status: Acute Code(s): R79.89 - Other specified abnormal findings of blood chemistry (10) Esophageal varices: Status: Acute Code(s): I85.00 - Esophageal varices without bleeding (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: Status: Acute Code(s): K22.70 - North's esophagus without dysplasia (12) Gastric ulcer: Status: Acute Code(s): K25.9 - Gastric ulcer, unspecified as acute or chronic, without hemorrhage or perforation (13) Duodenal ulcer: Status: Acute Code(s): K26.9 - Duodenal ulcer, unspecified as acute or chronic, without hemorrhage or perforation (14) Generalized weakness: Status: Acute Code(s): R53.1 - Weakness (15) Debility: Status: Acute Code(s): R53.81 - Other malaise Medications at Discharge Home Medications doxazosin 2 mg tablet 2 mg PO QHS PROSTATE 07/02/16 nitroglycerin 0.4 mg sublingual tablet (Nitrostat) 0.4 mg sublingual PRN PRN CHEST PAIN 04/01/18 furosemide 40 mg tablet 40 mg PO BID fluid #180 tabs 07/23/25 Held on 11/12/25. Instructions: Okay to take as needed acetaminophen 325 mg tablet 650 mg (2 x 325 mg) PO Q6H PRN PRN Pain 1-10 Or Fever>100.7 #1 TAB 11/12/25 insulin glargine 100 unit/mL (3 mL) subcutaneous pen (Lantus Solostar U-100 Insulin) 10 unit (0.1 mL) subcut DAILY #0 mL 11/12/25 insulin lispro 100 unit/mL subcutaneous pen (Humalog KwikPen (U-100) Insulin) See Protocol subcut ACHS #0 mL 11/12/25 ipratropium 0.5 mg-albuterol 3 mg (2.5 mg base)/3 mL nebulization soln 3 ml inhalation Q6HWA.RT #0 mL 11/12/25 melatonin 10 mg disintegrating tablet 10 mg PO QHS PRN PRN Insomnia #0 tabs 11/12/25 pantoprazole 40 mg tablet,delayed release (Protonix) 40 mg PO BID #60 tabs 11/12/25 sucralfate 1 gram tablet 1 g PO TIDAC #1 TAB 11/12/25 Hospital Course Operations None Procedures 2-D Echocardiogram, Blood transfusion, EGD, EKG and - (Chest x-ray) Summary of Care Provided Minutes Spent on Discharge: 42 Hospital Course: Mr. Mcclain is an 89-year-old white male with a complex past medical history who presented to the emergency department [facility] on 11/08/2025 with a chief complaint of shortness of breath. Patient has had gradually progressively worsening shortness of breath over the last several months per his . He also has had significant increase in his lower extremity edema. He has nighttime CPAP and has tried using it for several days prior to admission but it did not help him so he decided to be evaluated the emergency department. He did have a hospitalization in July for acute on chronic heart failure with preserved ejection fraction. Echo at that time showed EF of 60% with diastolic dysfunction and right ventricular systolic pressure was estimated at 40 mmHg. He is on chronic Lasix at home 80 mg p.o. twice daily but stated he was not responding well and had no significant urine output. Vital signs on presentation showed a temperature of 97, heart rate 53, respiratory rate 22, blood pressure was 98/80 and pulse ox was 96% on room air. CBC on presentation showed a white count of 4.3, hemoglobin of 7.1 (with baseline 8-8.5), platelet count was 85,000 which is down from his baseline of 110-140,000 he did have a mild left shift with a 77% neutrophilia. Coags were elevated as expected as the patient was on Eliquis at baseline. Chemistry panel showed mild LIDA with a serum creatinine of 3.53 and a baseline of 3-3.2 and mild hyperglycemia with a blood sugar of 123. This was nonfasting. His initial troponin was 93 with a delta of 86 and a 4-hour troponin of 89. proBNP was not elevated at 1684. There is initially thought that his shortness of breath was related to acute exacerbation of COPD and he was admitted to PCU and placed on Bumex. Echocardiogram was done on 11/09/2025 that showed an EF of 65 to 70% with moderate tricuspid valve insufficiency, right ventricular systolic pressure of 40 to 45 mmHg with mild pulmonary hypertension and IVC that was dilated with normal respiratory collapse and right atrial pressures of 5 to 10 mmHg. CBC the next morning revealed a significant drop in his hemoglobin to 6.3 with a repeat obtained at 6.2. He was given 2 units packed red blood cells and his Eliquis was placed on hold. Protonix was started IV and guaiac was ordered. He did not have a bowel movement so guaiac was never obtained. His repeat hemoglobin after transfusion was 7.9. Hemoglobin the next morning dropped again to 7.1 at which time he was ordered 2 more units of packed red blood cells and GI consult was placed. He was consented and taken for an EGD on 11/11/2025 at which time he was found to have grade 2 esophageal varices, esophageal mucosal changes at the distal esophagus consistent with North's esophagus, oozing gastric ulcers with pigmented material that were treated with APC and oozing duodenal ulcers that were treated with APC. He was transition to a full liquid diet temporarily and placed on Carafate and Protonix orally with recommendations for repeat endoscopy in 1 year and follow-up for pathology from biopsies. During his stay, he was intermittently hypotensive related to his volume loss from his anemia. Again, he was transfused a total of 4 units packed red blood cells during his hospital stay and we gave him fluid boluses back after his diuretics were stopped. I really think his shortness of breath was multifactorial but likely acutely exacerbated from his acute blood loss anemia. He remained without any significant improvement in his oxygenation however he did state his subjective shortness of breath was improved. Unfortunately, his renal function continued to decline likely related to the hypotension and hypovolemia despite significant fluid resuscitation and blood products being given. I had extensive conversation with the patient and family on 11/12/2025 with regards to his multisystem organ dysfunction and his overall prognosis in combination with his overall health and chronic medical conditions and he elected to pursue hospice at that time. Hospice came out and had conversation with the patient on the evening of 11/12/2025 and he was admitted to the [facility] at that time. Patient was discharged to hospice in the evening. Discharge diagnoses: Hypoxia/shortness of breath-multifactorial Acute on chronic HFpEF Acute on chronic anemia secondary to upper GI bleed COPD exacerbation Gastric ulcers Duodenal ulcers Grade 2 esophageal varices Acute on chronic anemia secondary to chronic renal disease and iron deficiency Generalized weakness Debility North's esophagus-suspected Pancytopenia Acute thrombocytopenia secondary to consumption Hypothermia Troponin elevation Intermittent hypotension Paroxysmal atrial fibrillation LIDA secondary to ischemic ATN CKD stage IV Hyperkalemia DM-2 Essential hypertension BPH with obstruction Acute urinary retention Hyperlipidemia HELDER Morbid obesity Physical Exam Const alert, oriented x3, no apparent distress, no limitations and well nourished; Negative for average body habitus or healthy appearing Constitutional Narrative: Morbidly obese, elderly, chronically ill-appearing white male, sitting up in bed, resting but appears comfortable, appears significantly fatigued General Appearance: cooperative, comfortable, well kempt and well developed Nutritional Appearance: morbidly obese HEENT normocephalic, head/scalp atraumatic and moist oral mucous membranes; Negative for hearing grossly normal bilaterally HEENT Narrative: Mild to moderate hearing loss, Mallampati 3-4, no thrush Eyes EOMs intact bilaterally; Negative for conjunctivae normal Eyes Narrative: Conjunctiva pallor bilaterally, no scleral icterus Neck supple Neck Narrative: Neck is short and thick, trachea midline Resp normal respiratory effort, no retractions, no use of accessory muscles and No clear to auscultation bilaterally Resp Narrative: Diminished with crackles at bases bilaterally, no signs of respiratory distress, stable on 2 to 3 L nasal cannula Auscultation: crackles; Negative for rhonchi or wheezes Cardio regular rate, regular rhythm, S1 normal heart sound, S2 normal heart sound, no murmurs, no rub, no gallops and no clicks GI normal to inspection, nondistended, normoactive bowel sounds, soft to palpation and non-tender GI Narrative: Large protuberant abdomen Extremity no joint enlargement Extremity Narrative: Trace bilateral lower extremity edema,, arms are swollen bilaterally, no cyanosis or clubbing, lower extremities wrapped in Jose Angel bandages, radial pulses are 2+, pedal pulses are difficult to palpate Skin no rashes or lesions noted Skin Narrative: Bilateral upper extremities with multiple areas of ecchymosis, lower extremity skin is dry Neuro moves all extremities and no focal motor deficits Neuro Narrative: Severe weakness Speech: speech normal Psych Psych Narrative: Affect is slightly flat but patient interacts appropriately, makes good eye contact, participates in conversations Weight / BMI Weight Weight: 166.2 kg Body Mass Index (BMI) 48.3 ABG / Lab / Microbiology Data 11/12/25 10:35 11/12/25 06:26 Laboratory: Laboratory Results - last 24 hr 11/12/25 06:26: WBC 7.0, RBC 3.34 L, Hgb 8.0 L, Hct 28.9 L, MCV 86.5, MCH 24.0 L , MCHC 27.7 L, RDW Std Deviation 56.0 H, RDW Coeff of Jazmin 17.9 H, Plt Count 61 L , Sodium 143, Potassium 5.2 H, Chloride 106, Carbon Dioxide 25.0, Anion Gap 11, BUN 90 H, Creatinine 4.96 H, Estim Creat Clear Calc 16.34 L, Est GFR (MDRD) Non- Af 11 L, BUN/Creatinine Ratio 18.2, Glucose 97, Calcium 10.1 11/12/25 06:32: POC Glucose 83 11/12/25 10:35: Hgb 7.9 L, Hct 27.6 L Microbiology: Microbiology 11/09/25 01:15 Urine Catheter - Soler Urine Culture - Final Strep anginosus 11/11/25 20:09 Stool Stool Occult Blood (LIS) - Final 11/11/25 15:52 Mucosa - Nasopharyngeal Respiratory Panel (PCR) - Final 11/08/25 20:40 Mucosa - Nose SARS-CoV-2, Influenza & RSV (PCR) - Final D/C Instructions DC O2, CPAP, BIPAP Needs Home O2 Discharge instructions: Yes Type of respiratory needs?: Oxygen Oxygen frequency: Continuous Continuous oxygen liters per minute: 3 DC home with Oxygen: Yes Home O2 MD Review: I have reviewed the oxygen testing, and the patient qualifies for home oxygen equipment and portability. The patient is mobile in the home and the community. Patient's Goals Of Care - F/U Goals Reviewed Goals of care reviewed with patient: Yes - Goals changed What matters most to you about your health?: Being comfortable What would you like to achieve or improve as a result of your hospital stay?: Comfort Meaningful Use Info Meaningful Use Meaningful Use Diagnoses (Choose all that apply): None applicable Discharge Plan Admission Admit Date/Time: 11/08/25 22:05 Primary Reason for Your Visit: Shortness of breath Attending Provider: Yael Keith Primary Care Provider: Nithin Acevedo Consulting Providers: Hemal Morgan; Leif Oakes; Artem Lopez; Lucia Palm; Geneva Larkin; Jahaira Aguilar; Nancy Urbina Discharge Orders/Prescriptions Prescriptions: New insulin lispro [Humalog KwikPen Insulin] 100 unit/mL Insulin Pen See Protocol subcut ACHS Qty: 0 0RF Protocol: 3. Sliding Scale Insulin Med Dosing Condition: 150-189 mg/dl = 1 unit Condition: 190-229 mg/dl = 2 units Condition: 230-269 mg/dl = 3 units Condition: 270-309 mg/dl = 4 units Condition: 310-349 mg/dl = 5 units Condition: 350-399 mg/dl = 6 units Condition: 400-449 mg/dl = 7 units Condition: Greater than 449 call physician Protocol Text: Suggested for: - Patients on Total Daily Insulin Dose of 37-55 units - Obese, infected, or steroid patients MEDIUM DOSING ALGORITHIM insulin glargine [Lantus Solostar U-100 Insulin] 100 unit/mL (3 mL) Insulin Pen 10 unit subcut DAILY Qty: 0 0RF ipratropium-albuterol 0.5 mg-3 mg(2.5 mg base)/3 mL Solution For Nebulization 3 ml inhalation Q6HWA.RT Qty: 0 0RF sucralfate 1 gram Tablet 1 g PO TIDAC Qty: 1 0RF melatonin 10 mg Tablet,Disintegrating 10 mg PO QHS PRN PRN (Reason: Insomnia) Qty: 0 0RF pantoprazole [Protonix] 40 mg tablet,delayed release (DR/EC) 40 mg PO BID Qty: 60 0RF acetaminophen 325 mg Tablet 650 mg PO Q6H PRN PRN (Reason: Pain 1-10 Or Fever>100.7) Qty: 1 0RF Continued doxazosin 2 MG tablet 2 mg PO QHS Patient Comments: PROSTATE nitroglycerin [Nitrostat] 0.4 MG tablet, sublingual 0.4 mg sublingual PRN PRN (Reason: CHEST PAIN) Held furosemide 40 mg tablet 40 mg PO BID Qty: 180 0RF Hold Instructions: Okay to take as needed Rx Instructions: 80 mg in the morning and 40 mg in the evening Discontinued insulin degludec [Tresiba U-100 Insulin] 100 unit/mL solution 40 unit subcut DAILY Eliquis 2.5 mg tablet 2.5 mg PO BID atorvastatin 40 mg tablet 40 mg PO DAILY sacubitril-valsartan [Entresto] 97-103 mg tablet 1 tab PO BID Referrals / Follow Up: Nithin Acevedo MD [Primary Care Provider, Internal Medicine] Disposition Disposition (needs filled in before D/C Order can be placed): Hospice in Medical Facility Charges/Coding Visit Charges Inpatient E&M: 11110 Disch Hosp >30min
[2025-11-12] MEDS: 0.9% Saline Lock 10 ML Syringe IV (19:49)
== END 2025-11-12 20:30 | disposition hospice, inpatient (51) | DRG 377 ==
LOC: ED 21:31 → PCU 22:18
PROVIDERS: Anesthesiology; Internal Medicine Gastroenterology; Admitting Provider Internal Medicine; Emergency Provider Emergency Medicine; PCP Internal Medicine; Visit Provider Internal Medicine
PROC: 0DJ08ZZ Inspection of Upper Intestinal Tract, Via Natural or Artificial Opening Endoscopic (ICD-10-PCS; CPT 43235; principal; 2025-11-11 10:30)
DX: K25.4 Chronic or unspecified gastric ulcer with hemorrhage (principal); I50.33 Acute on chronic diastolic (congestive) heart failure; N17.0 Acute kidney failure with tubular necrosis; D61.818 Other pancytopenia; I24.89 Other forms of acute ischemic heart disease; N18.4 Chronic kidney disease, stage 4 (severe); I13.0 Hypertensive heart and chronic kidney disease with heart failure and stage 1 through stage 4 chronic kidney disease, or unspecified chronic kidney disease; J44.1 Chronic obstructive pulmonary disease with (acute) exacerbation; Z68.42 Body mass index [BMI] 45.0-49.9, adult; D62 Acute posthemorrhagic anemia; N13.8 Other obstructive and reflux uropathy; D69.6 Thrombocytopenia, unspecified; D63.1 Anemia in chronic kidney disease; Z66 Do not resuscitate; E11.22 Type 2 diabetes mellitus with diabetic chronic kidney disease; I85.10 Secondary esophageal varices without bleeding; I27.20 Pulmonary hypertension, unspecified; K26.4 Chronic or unspecified duodenal ulcer with hemorrhage; I48.0 Paroxysmal atrial fibrillation; D50.9 Iron deficiency anemia, unspecified; E66.01 Morbid (severe) obesity due to excess calories; G47.33 Obstructive sleep apnea (adult) (pediatric); I25.10 Atherosclerotic heart disease of native coronary artery without angina pectoris; Z79.4 Long term (current) use of insulin; I45.10 Unspecified right bundle-branch block; E78.5 Hyperlipidemia, unspecified; I95.9 Hypotension, unspecified; E87.5 Hyperkalemia; K76.9 Liver disease, unspecified; K22.70 Barrett's esophagus without dysplasia; E11.65 Type 2 diabetes mellitus with hyperglycemia; E86.1 Hypovolemia; R68.0 Hypothermia, not associated with low environmental temperature; Z79.01 Long term (current) use of anticoagulants; Z95.1 Presence of aortocoronary bypass graft; N40.1 Benign prostatic hyperplasia with lower urinary tract symptoms; R53.81 Other malaise; R33.8 Other retention of urine; R53.1 Weakness; R09.02 Hypoxemia; Z79.899 Other long term (current) drug therapy; Z79.84 Long term (current) use of oral hypoglycemic drugs; Z87.891 Personal history of nicotine dependence
CPT/HCPCS: 36415; 71045; 80048; 80053; 81001; 82274; 82607; 82728; 82746; 82962; 83036; 83540; 83550; 83735; 83880; 84100; 84443; 84484; 85014; 85018; 85025; 85027; 85045; 85610; 85730; 86644; 86850; 86900; 86901; 87040; 87077; 87086; 87088; 87186; 87631; 87633; 88305; 92526; 92610; 93005; 93308; 94640; 94762; 97161; 97166; 97530; 97535; 97802; 99285; P9016; Q9957; A4216; C8924; J1938; J2405; J2597; J2916